=== PATIENT | male | born 1955 | race African-American/Black ===

== ENCOUNTER 2019-10-26 16:36 | Observation (INO) | payer MEDICARE, OTHER ==
[2019-10-26 17:32] LABS: Absolute Lymphocytes (CBC) 1.9 K/uL (0.7-4.9); Basophils % 0.3 % (0-1.3); Hematocrit 44.4 % (39.6-49.0); Lymphocytes % 11.2 % (15.3-44.8); MPV 8.6 fL (7.6-11.3); RBC Red Blood Cell Count 4.88 M/uL (4.33-5.43)
[2019-10-26 17:39] LABS: Protime INR 1.02
--- NOTE | 2019-10-26 17:46 | RAD REPORT ---
EXAM DESCRIPTION: Nikolai Single View10/26/2019 5:38 pm CLINICAL HISTORY: Chest pain COMPARISON: 2010 FINDINGS: The lungs appear clear of acute infiltrate. The heart is mildly enlarged. Postsurgical changes involve the chest. IMPRESSION: No acute abnormalities displayed
[2019-10-26 17:51] LABS: ALT/SGPT 18 U/L (12-78); AST/SGOT 8 U/L (15-37); Albumin 3.7 g/dL (3.4-5.0); Alkaline Phosphatase 98 U/L (45-117); Amylase 43 U/L (25-115); BUN Blood Urea Nitrogen 9 mg/dL (7-18); Bicarbonate 24 mmol/L (21-32); Bilirubin Direct 0.3 mg/dL (0-0.2); Bilirubin Total 1.3 mg/dL (0.2-1.0); CKMB Creatine Kinase MB < 1.0 ng/mL (0.3-3.6); Creatine Phosphokinase 74 U/L (39-308); Glucose Level 304 mg/dL (74-106); Lipase 192 U/L (73-393); Potassium 4.4 mmol/L (3.5-5.1); Protein, Total 8.9 g/dL (6.4-8.2); Sodium Level 133 mmol/L (136-145); Troponin (Emerg Dept Use Only) < 0.02 ng/mL (0.0-0.045)
[2019-10-26] MEDS ORDERED: NA CHLORIDE 0.9% 500 ML ONE (17:57)
[2019-10-26] MEDS ORDERED: NA CHLORIDE 0.9% 2,000 ML ONE (17:57)
[2019-10-26 18:30] LABS: Urine Blood 1+ (NEG); Urine Glucose 2+ (NEG); Urine Protein 3+ (NEG); Urine Specific Gravity >1.030 (1.005-1.030); Urine pH 5.5 (5.0-7.0)
[2019-10-26 18:33] LABS: Urine Bacteria >50 /HPF (NONE SEEN); Urine Culture Reflex Order NOT NEEDED; Urine RBC <5 /HPF (NONE SEEN); Urine Yeast PRESENT (NONE SEEN)
[2019-10-26] MEDS ORDERED: CEFTRIAXONE/SWI 1gm 1 GM/10 ML SYR ONE (18:53)
[2019-10-26] MEDS ORDERED: ACETAMINOPHEN 500 MG TAB ONE ×2 (18:53→20:19)
--- NOTE | 2019-10-26 20:08 | RAD REPORT ---
EXAM DESCRIPTION: CT - Head Brain Wo Cont - 10/26/2019 7:56 pm CLINICAL HISTORY: Alteration of awareness/confusion COMPARISON: None TECHNIQUE: Computed axial tomography of the head was obtained. IV contrast was not requested. All CT scans are performed using dose optimization technique as appropriate and may include automated exposure control or mA/KV adjustment according to patient size. FINDINGS: An intracranial bleed is not seen . The ventricles are normal in caliber. No extra-axial fluid collection is noted. Mild low-density areas within periventricular, deep and subcortical white matter likely represent isc hemic changes secondary to small vessel disease. Fluid within the sinuses/ mastoids is not seen. IMPRESSION: No acute intracranial abnormality is seen. If patient's symptoms persist MRI of the bra in would be recommended.
[2019-10-26] MEDS ORDERED: NA CHLORIDE 0.9% 1,000 ML ONE (20:19)
[2019-10-26] MEDS ORDERED: ACETAMINOPHEN 500 MG TAB PO PRN (21:49)
[2019-10-26] MEDS ORDERED: MORPHINE 2 MG/ML SYR IV PRN (21:49)
[2019-10-26] MEDS ORDERED: ONDANSETRON 4 MG/2 ML VIAL IV PRN (21:49)
[2019-10-26] MEDS ORDERED: HYDRALAZINE HCL 20 MG/ML VIAL IV PRN (21:52)
[2019-10-26] MEDS ORDERED: LORAZEPAM 0.5 MG TABLET PO PRN (21:52)
[2019-10-26] MEDS ORDERED: NA CHLORIDE 0.9% 1,000 ML IV SCH (22:00)
--- NOTE | 2019-10-26 22:00 | P.HP ---
Certification for Inpatient Patient admitted to: Observation With expected LOS: <2 Midnights Patient will require the following post-hospital care: None Practitioner: I am a practitioner with admitting privileges, knowledge of patient current condition, hospital course, and medical plan of care. Services: Services provided to patient in accordance with Admission requirements found in Title 42 Section 412.3 of the Code of Federal Regulations Patient History Date of Service: 10/26/19 Reason for admission: dysuria History of Present Illness: 64 yr old male with HTN , DM , hx of lung surgery -unsure reason , admitted for weakness, frequency urination since last 1 month , s/p seen by ASSISTANT PARALEGAL and no further workup done . He denies any hematuria or dysuria but admit to 2-3 x/pm nocturia . he state his glucose has been controlled but unable to to tell what medications he takes . No family or or personal hx of renal stones. in the ER , he ws noted with tachycardia with frequent PVCs and elevated wbc of 17 with high lactic acid and leucocyturia . He denies any chest pain . EKG was sinus rhthym . He is being admitted for UTI with sepsis Review of Systems 10-point ROS is otherwise unremarkable Physical Examination - Vital Signs Blood Pressure: 158/97 Pulse: 113 Respirations: 17 Pulse Ox (%): 100 - Physical Exam General: Alert, In no apparent distress, Oriented x3 HEENT: Atraumatic, Normocephalic, PERRLA Neck: Supple, 2+ carotid pulse no bruit Respiratory: Clear to auscultation bilaterally, Normal air movement Cardiovascular: No edema, Regular rate/rhythm, Normal S1 S2 Capillary refill: <2 Seconds Gastrointestinal: Normal bowel sounds, Soft and benign, Non-distended Musculoskeletal: No clubbing, No swelling Integumentary: No rashes, No breakdown Neurological: Normal speech, Normal strength at 5/5 x4 extr External genitalia: No edema, No lesions - Studies Laboratory Data (last 24 hrs) 10/26/19 17:20: PT 12.0, INR 1.02, APTT 29.5 10/26/19 17:20: WBC 17.2 H, Hgb 14.7, Hct 44.4, Plt Count 195 10/26/19 17:20: Sodium 133 L, Potassium 4.4, BUN 9, Creatinine 1.12, Glucose 304 H, Total Bilirubin 1.3 H, AST 8 L, ALT 18, Alkaline Phosphatase 98, Amylase 43, Lipase 192 Microbiology Data (last 24 hrs): 10/26/19 17:24 Throat Group A Streptococcus Rapid Screen - Final 10/26/19 17:24 Nasopharnyx Influenza Type A Antigen Screen - Final 10/26/19 17:24 Nasopharnyx Influenza Type B Antigen Screen - Final Assessment and Plan - Problems (Diagnosis) (1) HTN (hypertension) Current Visit: Yes Status: Acute (2) Diabetes Current Visit: Yes Status: Acute (3) Sepsis Current Visit: Yes Status: Acute (4) UTI (urinary tract infection) Current Visit: Yes Status: Acute (5) BPH w urinary obs/LUTS Current Visit: Yes Status: Acute Discharge Plan: Home Plan to discharge in: 24 Hours - Advance Directives Does patient have a Living Will: No Does patient have a Durable POA for Healthcare: No Physician Review: Patient Assessed, Agree with Above Assessment and Plan Physician Review Additional Text: # UTI with sepsis - follow blood cx and full urine cx - start rocephin qd -c/w IVF -obtain renal sonogram to r/o urinary tract abnormalities since atypical presentation - if improving wbc in am , can consider dc home # HTN - unable to obtain home meds list - start empirical Toprol since elevated HR now - c/w gentle IVF - resume home meds when list provided by spouse # DM - accuchekcs and insulin sliding scale prn - start lantus 15 unit qhs empirically # Presumed BPH - follow renal sono -start low dose flomax # Advance directive - full code # Dispo - possible home in am Time Spent Managing Pts Care (In Minutes): 60
[2019-10-26] MEDS ORDERED: D50W 25 GM/50 ML SYRINGE/VIAL IV PRN (22:04)
[2019-10-26] MEDS ORDERED: GLUCAGON 1 MG/VIAL IM PRN (22:04)
[2019-10-26] MEDS ORDERED: INSULIN GLARGINE 100 UNITS/ML SQ SCH (22:04)
[2019-10-26] MEDS ORDERED: TAMSULOSIN 0.4 MG SR CAP PO SCH (22:04)
[2019-10-26 23:17] VITALS: O2SAT 99
[2019-10-26] MEDS: METOPROLOL TAR 50 MG TAB PO SCH (23:40)
[2019-10-27 05:31] LABS: Absolute Lymphocytes (CBC) 2.4 K/uL (0.7-4.9); Basophils % 0.5 % (0-1.3); Hematocrit 38.2 % (39.6-49.0); Lymphocytes % 18.3 % (15.3-44.8); MPV 8.5 fL (7.6-11.3); RBC Red Blood Cell Count 4.12 M/uL (4.33-5.43)
[2019-10-27 05:51] LABS: ALT/SGPT 14 U/L (12-78); AST/SGOT 9 U/L (15-37); Alkaline Phosphatase 72 U/L (45-117); BUN Blood Urea Nitrogen 9 mg/dL (7-18); Bicarbonate 26 mmol/L (21-32); Bilirubin Total 1.3 mg/dL (0.2-1.0); Glucose Level 210 mg/dL (74-106); Protein, Total 7.3 g/dL (6.4-8.2); Sodium Level 139 mmol/L (136-145)
[2019-10-27] MEDS ORDERED: CEFTRIAXONE/SWI 1gm 1 GM/10 ML SYR IV SCH (07:00)
[2019-10-27] MEDS ORDERED: PANTOPRAZOLE 40MG TABLET PO SCH (07:30)
--- NOTE | 2019-10-27 08:26 | RAD REPORT ---
EXAM DESCRIPTION: US - Renal Ultrasound-Complete - 10/27/2019 7:46 am CLINICAL HISTORY: UTI , r/o hydronephrosis or renal calculi COMPARISON: No comparisons FINDINGS: The right kidney measures 10.3 x 5.0 x 5.2 cm. The left kidney measures 10.6 x 5.6 x 5.4 cm. Renal cortical thickness and echogenicity are normal. No hydronephrosis or suspicious renal mass. No bladder wall thickening or mass. No intraluminal stone or mass. Urinary bladder was contracted limiting assessment. IMPRESSION: No hydronephrosis or suspicious renal mass. No other significant findings.
[2019-10-27] MEDS: INSULIN -REGULAR HUMAN 50 UNIT/0.5 ML ML SQ SCH ×2 (08:53→12:20)
[2019-10-27] MEDS: METOPROLOL TAR 50 MG TAB PO SCH (08:54)
[2019-10-27] MEDS ORDERED: ENOXAPARIN 40 MG/0.4 ML SQ SCH (09:00)
--- NOTE | 2019-10-27 14:16 | P.CNS ---
Date of Consult: 10/27/19 Reason for Consult: proteinuria, UTI in a diabetic pt Requesting Physician: Arielle Friedman Chief Complaint: dysuria History of Present Illness: 64 y o Diabetic and hypertensive pt admitted for management of UTI. He lebron dc/o of frequent urination and night sweats prompting ER visit. He denied any headache but he did have fever. UA done in the ED was concerning as he had elevated leukocyte esterase and marked proteinuria. Nephrology was consulted to assist with treatment recommendations on account of his proteinuria. He denied any issue with previous diagnosis of kidney injury or NSAID use. Allergies No Known Allergies Allergy (Verified 10/26/19 23:03) Home medications list reviewed: Yes Home Medications: Atorvastatin Calcium [Lipitor] 40 mg PO BEDTIME 10/27/19 Glipizide [Glipizide Xl] 5 mg PO DAILY 10/27/19 Metformin HCl [Metformin HCl ER] 750 mg PO BID 10/27/19 Metoprolol Tartrate [Lopressor*] 50 mg PO BID 10/27/19 - Past Medical/Surgical History Diabetic: Yes -: htn -: dm -: cabg - Social History Alcohol use: Yes Place of Residence: Home Review of Systems 10-point ROS is otherwise unremarkable Physical Examination Temp Pulse Resp BP Pulse Ox 96.9 F 85 16 129/70 97 10/27/19 08:00 10/27/19 08:54 10/27/19 08:00 10/27/19 08:54 10/27/19 08:00 General: Alert, Oriented x3, Cooperative HEENT: Atraumatic, PERRLA, EOMI Neck: Supple Respiratory: Clear to auscultation bilaterally Cardiovascular: Regular rate/rhythm, Normal S1 S2 Gastrointestinal: Normal bowel sounds Musculoskeletal: No clubbing Neurological: Normal gait, Normal strength at 5/5 x4 extr Laboratory Data (last 24 hrs) 10/26/19 17:20: Magnesium 1.5 L 10/26/19 17:20: PT 12.0, INR 1.02, APTT 29.5 10/26/19 17:20: WBC 17.2 H, Hgb 14.7, Hct 44.4, Plt Count 195 10/26/19 17:20: Sodium 133 L, Potassium 4.4, BUN 9, Creatinine 1.12, Glucose 304 H, Total Bilirubin 1.3 H, AST 8 L, ALT 18, Alkaline Phosphatase 98, Amylase 43, Lipase 192 Conclusions/Impression: UTI: Treatment as per primary team. Empiric antibiotics have been started. Proteinuria: His kidney function is good with eGFR of >90%. He does have significant proteinuria on UA. We will obtain urine protein/creatinine to further evaluate. If he has significant proteinuria i.e. > 1g, we will start NYASIA inhibitor therapy and monitor his proteinuria as scheduled. Hypertension: We will continue present antihypertensive meds and monitor his BP per unit protocol. Diabetes: We will continue oral hypoglycemic agents and SSI with carb restricted diet.
[2019-10-27 14:21] VITALS: BP 137/75; TEMP 97.1
--- NOTE | 2019-10-27 17:27 | P.DS ---
Admission Date: 10/26/19 Discharge Date: 10/27/19 Disposition: ROUTINE DISCHARGE Discharge Condition: GOOD Reason for Admission: dysuria Consultations: Nephrology-Dr. Mccrary Procedures: Renal US: FINDINGS: The right kidney measures 10.3 x 5.0 x 5.2 cm. The left kidney measures 10.6 x 5.6 x 5.4 cm. Renal cortical thickness and echogenicity are normal. No hydronephrosis or suspicious renal mass. No bladder wall thickening or mass. No intraluminal stone or mass. Urinary bladder was contracted limiting assessment. IMPRESSION: No hydronephrosis or suspicious renal mass. No other significant findings. Medical Problem List: Sepsis secondary to UTI, urine culture positive for Gram-negative rods Positive strep test Hypertension Diabetes mellitus type 2 Brief History of Present Illness: 64-year-old male presented to emergency room with increased dysuria and polyuria. Patient found to have UTI/sepsis. Patient admitted for further treatment Hospital Course: Patient presented with dysuria and polyuria. Patient was found to have UTI. Patient also positive for strep. Sepsis was suspected. Patient treated with IV antibiotic therapy and IV fluids. Renal ultrasound showed no obstruction or hydronephrosis. Patient has done well during the course of his stay. Patient has been evaluated by nephrology. No further intervention required. At discharge urine culture positive for Gram negative rods. At discharge patient will continue with Augmentin 500 mg twice daily for 7 days. Recommend followup with urology in 1-2 weeks to follow up hospitalization. Patient will need a followup with PCP to go over urine culture results. UTI prevention to be provided. Patient may follow up with nephrology in 1-2 weeks to follow up hospitalization. Patient with hypertension. Patient may continue with metoprolol 50 mg 1 puff twice daily. Recommend to maintain blood pressure was 150/80. Further testing to be done by his PCP. Nephrology will follow up on his hypertension. Nephrology will consider NYASIA-inhibitor in the future. Patient with diabetes. Recommend at discharge to continue with his medications. Vital Signs/Physical Exam: Temp Pulse Resp BP Pulse Ox 97.1 F 73 16 137/75 97 10/27/19 12:00 10/27/19 12:00 10/27/19 12:00 10/27/19 12:00 10/27/19 12:00 General: Alert, In no apparent distress, Oriented x3, Cooperative HEENT: Atraumatic Neck: Supple Respiratory: Clear to auscultation bilaterally, Normal air movement Cardiovascular: Normal pulses, Regular rate/rhythm Gastrointestinal: Normal bowel sounds, Soft and benign, Non-distended, No tenderness, No masses, No rebound, No guarding Musculoskeletal: No erythema, No tenderness, No warmth Integumentary: No tenderness/swelling, No erythema, No warmth, No cyanosis Neurological: Normal speech, Normal strength at 5/5 x4 extr, Normal tone, Normal affect Laboratory Data at Discharge: WBC 13.2 K/uL (4.3-10.9) H D 10/27/19 05:12 Hgb 12.5 g/dL (13.6-17.9) L 10/27/19 05:12 Hct 38.2 % (39.6-49.0) L 10/27/19 05:12 Plt Count 160 K/uL (152-406) 10/27/19 05:12 PT 12.0 SECONDS (9.5-12.5) 10/26/19 17:20 INR 1.02 10/26/19 17:20 APTT 29.5 SECONDS (24.3-36.9) 10/26/19 17:20 Sodium 139 mmol/L (136-145) 10/27/19 05:12 Potassium 4.0 mmol/L (3.5-5.1) 10/27/19 05:12 BUN 9 mg/dL (7-18) 10/27/19 05:12 Creatinine 0.85 mg/dL (0.55-1.3) 10/27/19 05:12 Glucose 210 mg/dL (74-106) H 10/27/19 05:12 Magnesium Cancelled 10/27/19 22:00 Total Bilirubin 1.3 mg/dL (0.2-1.0) H 10/27/19 05:12 AST 9 U/L (15-37) L 10/27/19 05:12 ALT 14 U/L (12-78) 10/27/19 05:12 Alkaline Phosphatase 72 U/L (45-117) 10/27/19 05:12 Amylase 43 U/L (25-115) 10/26/19 17:20 Lipase 192 U/L (73-393) 10/26/19 17:20 Home Medications: Amoxicillin/Potassium Clav [Augmentin 500-125 Tablet] 1 each PO BID #14 tablet 10/27/19 Atorvastatin Calcium [Lipitor] 40 mg PO BEDTIME 10/27/19 Glipizide [Glipizide Xl] 5 mg PO DAILY 10/27/19 Metformin HCl [Metformin HCl ER] 750 mg PO BID 10/27/19 Metoprolol Tartrate [Lopressor*] 50 mg PO BID 10/27/19 New Medications: Amoxicillin/Potassium Clav [Augmentin 500-125 Tablet] 1 each PO BID #14 tablet Patient Discharge Instructions: 1. Follow up with PCP in 1 week. 2. Patient presented with a UTI and strep infection. Patient has done well. No renal obstruction identified. Patient has been evaluated by nephrology. At discharge urine culture positive for Gram negative rods. At discharge patient will continue with Augmentin 500 mg twice daily for 7 days. Recommend followup with urology in 1-2 weeks to follow up hospitalization. Patient will need a followup with PCP to go over urine culture results. UTI prevention to be provided. Patient may follow up with nephrology in 1-2 weeks to follow up hospitalization. 3. Patient with hypertension. Patient may continue with metoprolol 50 mg 1 puff twice daily. Recommend to maintain blood pressure was 150/80. Further testing to be done by his PCP. 4. Patient with diabetes. Recommend at discharge to continue with his medications. Diet: ADA Activity: Ad pura Time spent managing pt's care (in minutes): 55
--- NOTE | 2019-10-27 19:20 | ER ---
Nurse's Notes [facility] Name: Donald Hull Age: 64 yrs Sex: Male : 1955 Arrival Date: 10/26/2019 Time: 16:38 Bed 3 Private MD: Eyal Chris T Diagnosis: Other sepsis;Urinary tract infection, site not specified;Diabetes mellitus due to underlying condition with hyperglycemia Presentation: 10/25 16:53 Chief complaint: Patient states: Feeling tired x 2 days. Reports urinary frequency and ca1 urgency. Denies burning with urination. Denies abdl pain, N/V/Diarrhea. Coronavirus screen: Proceed with normal triage. Patient denies a cough. Patient denies shortness of breath or difficulty breathing. Patient reports a measured and/or subjective temperature greater than 100.4F. Patient denies travel on a cruise ship or to a country the [facility] currently lists as an affected area. Patient denies contact with known and/or suspected case of COVID-19. Ebola Screen: Patient negative for fever greater than or equal to 101.5 degrees Fahrenheit, and additional compatible Ebola Virus Disease symptoms Patient denies exposure to infectious person. Patient denies travel to an Ebola-affected area in the 21 days before illness onset. No symptoms or risks identified at this time. 16:53 Method Of Arrival: Wheelchair ca1 16:53 Initial Sepsis Screen: Does the patient meet any 2 criteria? Temp <36.0*C (96.8*F)) or ca1 > 38.3*C (100.9*F). HR > 90 bpm. Does the patient have a suspected source of infection? Yes: Dysuria/Frequency/Urgency/UTI. Risk Assessment: Do you want to hurt yourself or someone else? Patient reports no desire to harm self or others. 16:53 Acuity: NASIMA 2 ca1 16:53 Onset of symptoms was October 26, 2019. ca1 Historical: - Allergies: 16:57 No Known Allergies; ca1 - PMHx: 16:57 Hypertension; Diabetes - NIDDM; ca1 - PSHx: 16:57 CABG; ca1 - Immunization history:: Adult Immunizations up to date. - Social history:: Smoking status: Patient denies any tobacco usage or history of. Screenin:07 Abuse screen: Denies threats or abuse. Nutritional screening: No deficits noted. rb1 Tuberculosis screening: No symptoms or risk factors identified. Fall Risk No fall in past 12 months (0 pts). Secondary diagnosis (15 points) IV access (20 points). Ambulatory Aid- None/Bed Rest/Nurse Assist (0 pts). Gait- Normal/Bed Rest/Wheelchair (0 pts) Mental Status- Overestimates/Forgets Limitations (15 pts.). Total [place] Fall Scale indicates High Risk Score (45 or more points). Fall prevention measures have been instituted. Side Rails Up X 2 Placed Close to Nursing Station 1:1 Attendant Assigned Frequent Obs/Assessments Occuring As available patient and family educated on Fall Prevention Program and Strategies. Assessment: 17:00 Reassessment: Pt. is in the restroom trying to obtain a urine specimen. General:. rb1 17:07 General: Appears in no apparent distress. comfortable, Behavior is calm, cooperative, rb1 Denies fever. Pain: Denies pain. Neuro: Level of Consciousness is awake, obeys commands, confused, intermittent confusion. Oriented to person, place, time, situation. Cardiovascular: Capillary refill < 3 seconds. Respiratory: Airway is patent Respiratory effort is even, unlabored, Respiratory pattern is regular, symmetrical. GI: No signs and/or symptoms were reported involving the gastrointestinal system. : Reports urinary frequency. Derm: Skin is dry, Skin is normal, Skin temperature is warm. Musculoskeletal: Range of motion: intact in all extremities. 17:23 Reassessment: NOTIFIED VENITA WELLER OF PT INTERMITTENT INABILITY TO FOLLOW COMMANDS ls4 AND SOMETIMES DELAYED ANSWERS. NO ORDERS AT THIS TIME. 17:43 Reassessment: Told Robyn, provider, about the pt. having intermittent confusion and rb1 suggested a scan. No new orders received at this time. 18:00 Reassessment: Patient appears in no apparent distress at this time. Patient and/or rb1 family updated on plan of care and expected duration. Pain level reassessed. Patient is alert, oriented x 3, equal unlabored respirations, skin warm/dry/pink. Patient denies pain at this time. 18:12 Reassessment: Patient appears in no apparent distress at this time. Patient and/or rb1 family updated on plan of care and expected duration. Pain level reassessed. Patient is alert, oriented x 3, equal unlabored respirations, skin warm/dry/pink. Patient denies pain at this time. 19:32 Reassessment: PT FOUND LAYING LONGWAYS IN BED. PT ASKED WHY HE WAS LAYING THAT WAY. PT ls4 STATED BECAUSE HE FEELS LIKE IT. PT REPOSITIIONED IN BED. PT HAD ALSO URINATED ON FLOOR. PT HEART RATE 140'S REPORTED TO VENITA WELLER. PT HEART RATE IN 130S ON MONITOR AT VENITA ROBYN DESK. AWAIT FURTHER ORDERS. 19:35 General: Appears in no apparent distress. Behavior is calm, quiet, delayed in response rr5 when answering questions.. Neuro: Level of Consciousness is awake, obeys commands, confused. Cardiovascular: Capillary refill < 3 seconds Patient's skin is warm and dry. Respiratory: Airway is patent Respiratory effort is even, unlabored, Respiratory pattern is regular, symmetrical. GI: No signs and/or symptoms were reported involving the gastrointestinal system. : Reports urinary frequency. EENT: No signs and/or symptoms were reported regarding the EENT system. Derm: Skin is intact, Skin temperature is warm. Musculoskeletal: Capillary refill < 3 seconds. 19:47 Reassessment: patient in ct scan now. mg2 20:40 Reassessment: critical lab test for lactate of 4.2 relayed to the provider. mg2 21:10 Reassessment: Patient appears in no apparent distress at this time. Patient and/or mg2 family updated on plan of care and expected duration. Pain level reassessed. Patient is alert, oriented x 3, equal unlabored respirations, skin warm/dry/pink. called for updates. 22:37 Reassessment: Patient and/or family updated on plan of care and expected duration. Pain ea level reassessed. Report given to Thania SKELTON on second floor. 22:48 Reassessment: Patient and/or family updated on plan of care and expected duration. Pain ea level reassessed. Patient is alert, oriented x 3, equal unlabored respirations, skin warm/dry/pink. Pt admitted to second floor, pt left ED via stretcher per tech. Pt tolerating well. Vital Signs: 16:53 BP 165 / 110; Pulse 123; Resp 17 S; Temp 103.2(O); Pulse Ox 97% on R/A; Weight 87.09 kg ca1 (R); Height 5 ft. 6 in. (167.64 cm) (R); Pain 0/10; 17:30 BP 194 / 107; Pulse 119; Resp 28; Temp 98.4(O); Pulse Ox 98% on R/A; Pain 0/10; rb1 18:12 Temp 98.4(O); rb1 18:30 BP 176 / 102; Pulse 109; Resp 28; Pulse Ox 98% ; Pain 0/10; rb1 20:09 Pulse 119; Resp 22; Temp 100.4; Pulse Ox 99% on R/A; mg2 20:41 BP 177 / 70; mg2 20:57 BP 156 / 96; Pulse 106; Resp 18; Pulse Ox 96% on R/A; mg2 21:06 Temp 99.7(O); mg2 21:35 BP 116 / 97; Pulse 105; Resp 18; Pulse Ox 100% on R/A; mg2 22:38 BP 157 / 79; Pulse 97; Resp 20; Temp 99.9; ea 16:53 Body Mass Index 30.99 (87.09 kg, 167.64 cm) ca1 ED Course: 16:38 Patient arrived in ED. ag5 16:39 Eyal Chris MD is Private Physician. ag5 16:57 Arm band placed on right wrist. ca1 16:58 Venita Carlson PA is PHCP. cp 16:58 Tim Mathew MD is Attending Physician. cp 17:07 Patient has correct armband on for positive identification. Placed in gown. Bed in low rb1 position. Call light in reach. Side rails up X2. manager monitoring on. Pulse ox on. NIBP on. 17:20 Inserted saline lock: 18 gauge in right forearm, using aseptic technique. ,using rb1 aseptic technique. IV inserted by NAFISA Nicholson Blood collected. 17:38 Triage completed. ca1 17:39 XRAY Chest (1 view) In Process Unspecified. EDMS 17:41 Nidhi Jackson, NAFISA is Primary Nurse. rb1 18:54 Report given to NAFISA Donovan. rb1 19:56 CT Head Brain wo Cont In Process Unspecified. EDMS 20:24 Arielle Friedman MD is Hospitalizing Provider. cp 21:07 No provider procedures requiring assistance completed. Patient admitted, IV remains in mg2 place. Administered Medications: Discontinued: NS 0.9% 1000 ml IV at 100 ml/hr continuous 17:05 Drug: NS 0.9% (30 ml/kg) 2500 ml Route: IV; Rate: bolus; Site: right forearm; ls4 19:00 Follow up: Response: No adverse reaction; IV Status: Completed infusion; IV Intake: mg2 2500ml 18:51 Not Given (Provider discretion; temperature 98.4 orally): Tylenol 1000 mg PO once rb1 19:35 Drug: Rocephin 1 grams Route: IV; Rate: calculated rate; Site: right forearm; rr5 21:27 Follow up: Response: No adverse reaction; IV Status: Completed infusion mg2 20:10 Drug: NS 0.9% 1000 ml Route: IV; Rate: 100 ml/hr; Site: right forearm; mg2 22:49 Follow up: Response: No adverse reaction ea 20:15 Drug: Tylenol 1000 mg Route: PO; mg2 21:02 Follow up: Response: No adverse reaction mg2 Point of Care Testing: Blood Glucose: 20:10 Blood Glucose: 283 mg/dL; mg2 Ranges: Intake: 19:00 IV: 2500ml; Total: 2500ml. mg2 Outcome: 20:25 Decision to Hospitalize by Provider. cp 21:19 Instructed on the need for admit. ea 22:37 Admitted to Med/surg accompanied by tech, via wheelchair, room 208, with chart, Report ea called to Thania SKELTON 22:49 Condition: stable ea 22:49 Patient left the ED. ea Signatures: Dispatcher [employer] EDMS Venita Carlson PA PA cp Barber, Rebecca, RN RN rb1 Anne-Marie Osborne RN NAFISA ea Rohan Gr RN RN mg2 Lyn Carroll RN RN ls4 Zion Allen RN RN rr5 Irina Leonard RN RN ca1 Leyla Daniels ag5 Corrections: (The following items were deleted from the chart) 19:19 17:30 BP 194 / 107; Pulse 119bpm; Resp 28bpm; Pulse Ox 98% RA; Pain 0/10; rb1 rb1 19:37 19:31 Reassessment: NOTIFIED VENITA WELLER OF PT INTERMITTENT INABILITY TO FOLLOW ls4 COMMANDS AND SOMETIMES DELAYED ANSWERS. NO ORDERS AT THIS TIME. ls4
--- NOTE | 2019-10-27 19:20 | EDPHYS ---
Physician Documentation [facility] Name: Donald Hull Age: 64 yrs Sex: Male : 1955 Arrival Date: 10/26/2019 Time: 16:38 Bed 3 Private MD: Eyal Chris T ED Physician Tim Mathew HPI: 10/25 17:15 This 64 yrs old Black Male presents to ER via Wheelchair with complaints of General cp Weakness, Urinary Frequency. 17:15 The patient reports fever, with an emergency department temperature of 103.2 degrees cp Fahrenheit. Onset: The symptoms/episode began/occurred today. 17:15 Associated signs and symptoms: Pertinent positives: general weakness, urinary frequency.cp Historical: - Allergies: 16:57 No Known Allergies; ca1 - PMHx: 16:57 Hypertension; Diabetes - NIDDM; ca1 - PSHx: 16:57 CABG; ca1 - Immunization history:: Adult Immunizations up to date. - Social history:: Smoking status: Patient denies any tobacco usage or history of. ROS: 17:20 Constitutional: Positive for fever, Negative for poor PO intake. cp 17:20 Eyes: Negative for injury, pain, redness, and discharge. cp 17:20 ENT: Negative for ear pain, sore throat, difficulty swallowing, difficulty handling secretions. 17:20 Cardiovascular: Negative for chest pain, edema, palpitations. 17:20 Respiratory: Negative for cough, shortness of breath, wheezing. 17:20 Abdomen/GI: Negative for abdominal pain, nausea, vomiting, and diarrhea, constipation, black/tarry stool, rectal bleeding. 17:20 Back: Negative for pain at rest, pain with movement. 17:20 : Positive for urinary frequency, Negative for burning with urination, testicular pain 17:20 Skin: Negative for rash. 17:20 Neuro: Positive for weakness, Negative for dizziness, headache. 17:20 All other systems are negative. Exam: 17:25 Constitutional: The patient appears in no acute distress, alert, awake, cp non-diaphoretic, non-toxic, well developed, well nourished. 17:25 Head/Face: Normocephalic, atraumatic. cp 17:25 Eyes: Periorbital structures: appear normal, Conjunctiva: normal, no exudate, no injection, Sclera: no appreciated abnormality, Lids and lashes: appear normal, bilaterally. 17:25 ENT: External ear(s): are unremarkable, TM's: dullness, bilaterally, Nose: is normal, Mouth: Lips: moist, Oral mucosa: moist, Posterior pharynx: Airway: no evidence of obstruction, patent, Tonsils: no enlargement, no exudate, swelling, is not appreciated, erythema, that is mild, exudate, is not appreciated. 17:25 Neck: ROM/movement: is normal, is supple, without pain, no range of motions limitations, no meningismus, no nuchal rigidity. 17:25 Chest/axilla: Inspection: normal, Palpation: is normal, no crepitus, no tenderness. 17:25 Cardiovascular: Rate: tachycardic, Rhythm: regular, Edema: is not appreciated, JVD: is not appreciated. 17:25 Respiratory: the patient does not display signs of respiratory distress, Respirations: normal, no use of accessory muscles, no retractions, labored breathing, is not present, Breath sounds: are clear throughout, no decreased breath sounds, no stridor, no wheezing. 17:25 Abdomen/GI: Inspection: abdomen appears normal, Bowel sounds: active, all quadrants, Palpation: abdomen is soft and non-tender, in all quadrants, voluntary guarding, is not appreciated, involuntary guarding, is not appreciated. 17:25 Back: pain, is absent, ROM is normal. 17:25 Skin: cellulitis, is not appreciated, no rash present. 17:25 Neuro: Orientation: to person, place \T\ time. Mentation: able to follow commands, slow to respond, Cerebellar function: is grossly normal, Motor: moves all fours, strength is normal, Gait: is steady. 18:00 ECG was reviewed by the Attending Physician. cp 20:25 ECG was reviewed by the Attending Physician. cp Vital Signs: 16:53 BP 165 / 110; Pulse 123; Resp 17 S; Temp 103.2(O); Pulse Ox 97% on R/A; Weight 87.09 kg ca1 (R); Height 5 ft. 6 in. (167.64 cm) (R); Pain 0/10; 17:30 BP 194 / 107; Pulse 119; Resp 28; Temp 98.4(O); Pulse Ox 98% on R/A; Pain 0/10; rb1 18:12 Temp 98.4(O); rb1 18:30 BP 176 / 102; Pulse 109; Resp 28; Pulse Ox 98% ; Pain 0/10; rb1 20:09 Pulse 119; Resp 22; Temp 100.4; Pulse Ox 99% on R/A; mg2 20:41 BP 177 / 70; mg2 20:57 BP 156 / 96; Pulse 106; Resp 18; Pulse Ox 96% on R/A; mg2 21:06 Temp 99.7(O); mg2 21:35 BP 116 / 97; Pulse 105; Resp 18; Pulse Ox 100% on R/A; mg2 22:38 BP 157 / 79; Pulse 97; Resp 20; Temp 99.9; ea 16:53 Body Mass Index 30.99 (87.09 kg, 167.64 cm) ca1 MDM: 17:15 Patient medically screened. cp 17:30 Differential diagnosis: pneumonia UTI, meningitis, sepsis. cp 18:35 Data reviewed: vital signs, nurses notes, lab test result(s), EKG, radiologic studies, cp plain films, and as a result, I will admit patient. 18:35 Test interpretation: by ED physician or midlevel provider: ECG. Response to treatment: cp the patient's symptoms have mildly improved after treatment. 18:40 Physician consultation: Arielle Friedman MD was called at 18:30, was contacted at 18:30, regarding admission, to the telemetry unit. patient's condition. 10/25 16:59 Order name: Amylase, Serum; Complete Time: 18:16 ca1 10/25 16:59 Order name: Basic Metabolic Panel; Complete Time: 18:16 ca1 10/25 18:16 Interpretation: Normal except: NA 133; GLUC 304; GFR 80. cp 10/25 16:59 Order name: Blood Culture Adult (2) ca1 10/25 16:59 Order name: CBC with Diff; Complete Time: 18:16 ca1 10/25 18:16 Interpretation: Normal except: WBC 17.2; SUSAN% 77.5; LYM% 11.2; NEUT A 13.3; MNA 1.9. cp 10/25 16:59 Order name: Ckmb; Complete Time: 18:16 ca1 10/25 16:59 Order name: CPK; Complete Time: 18:16 ca1 10/25 16:59 Order name: Lactate; Complete Time: 18:16 [facility] 10/25 18:17 Interpretation: Abnormal: LAC 2.6. 10/25 16:59 Order name: LFT's; Complete Time: 18:16 [facility] 10/25 18:17 Interpretation: Normal except: AST 8; BILIT 1.3; BILID 0.3; TP 8.9; GLOB 5.2; A/G 0.7. 10/25 16:59 Order name: Lipase; Complete Time: 18:16 [facility] 10/25 16:59 Order name: Procalcitonin; Complete Time: 18:16 [facility] 10/25 18:17 Interpretation: Reviewed. 10/25 16:59 Order name: Protime (+inr); Complete Time: 18:16 [facility] 10/25 16:59 Order name: Ptt, Activated; Complete Time: 18:16 [facility] 10/25 16:59 Order name: Troponin (emerg Dept Use Only); Complete Time: 18:16 [facility] 10/25 18:17 Interpretation: Reviewed. 10/25 16:59 Order name: Urine Microscopic Only; Complete Time: 18:36 [facility] 10/25 18:36 Interpretation: Normal except: UWBC 10-20; UBACT >50; YEAST PRESENT; BUD PRESENT. 10/25 17:15 Order name: Influenza Screen (a \T\ B); Complete Time: 18:32 10/25 17:15 Order name: Strep; Complete Time: 18:32 10/25 18:33 Interpretation: Abnormal: GP A STREP SC \T\nbsp; GROUP A STREP SCREEN-- \T\nbsp; \T\nbsp; cp POSITIVE. 10/25 17:15 Order name: Urine Culture 10/25 17:15 Order name: XRAY Chest (1 view); Complete Time: 18:16 10/25 18:17 Interpretation: Report review. 10/25 18:27 Order name: Urine Dipstick--Ancillary (enter results); Complete Time: 18:32 10/25 18:33 Interpretation: Normal except: USPGR >1.030; UKET 1+; UBLD 1+; UPROT 3+. 10/25 19:34 Order name: CT Head Brain wo Cont; Complete Time: 20:11 10/25 20:21 Order name: Glucose, Ancillary Testing; Complete Time: 20:23 [facility] 10/25 20:23 Interpretation: GLUC,ANCIL 283; Reviewed. 10/25 20:40 Order name: Lactate Sepsis 2 HR Follow-up; Complete Time: 21:09 [facility] 10/25 21:09 Interpretation: Abnormal: LACTATE SEPSIS 4.2. 10/25 21:58 Order name: CBC with Automated Diff [facility] 10/25 21:58 Order name: CBC with Automated Diff [facility] 10/25 21:58 Order name: Comprehensive Metabolic Panel [facility] 10/25 21:58 Order name: Comprehensive Metabolic Panel [facility] 10/25 21:58 Order name: Magnesium [facility] 10/25 21:58 Order name: Magnesium; Complete Time: 22:14 [facility] 10/25 21:58 Order name: Magnesium [facility] 10/25 21:58 Order name: Magnesium [facility] 10/25 16:59 Order name: Accucheck; Complete Time: 20:00 [facility] 10/25 16:59 Order name: Cardiac monitoring; Complete Time: 18:08 [facility] 10/25 16:59 Order name: EKG - Nurse/Tech; Complete Time: 17:49 [facility] 10/25 16:59 Order name: IV Saline Lock - Large Bore; Complete Time: 18:51 [facility] 10/25 16:59 Order name: Labs collected and sent; Complete Time: 18:51 [facility] 10/25 16:59 Order name: O2 Per Protocol; Complete Time: 18:52 [facility] 10/25 16:59 Order name: O2 Sat Monitoring; Complete Time: 19:44 [facility] 10/25 16:59 Order name: Urine Dipstick-Ancillary (obtain specimen); Complete Time: 19:44 [facility] 10/25 20:07 Order name: EKG; Complete Time: 20:09 10/25 20:07 Order name: EKG - Nurse/Tech; Complete Time: 20:40 10/25 20:07 Order name: Accucheck Blood Glucose; Complete Time: 20:09 10/25 21:57 Order name: CONS Pharmacy Consult [facility] 10/25 21:57 Order name: CONS Physician Consult [facility] 10/25 21:57 Order name: Consistent Carb (ADA) 1800 Da [facility] 10/25 21:59 Order name: Renal Ultrasound-Complete EDMS EC:00 Rate is 116 beats/min. Rhythm is regular. NJ interval is normal. QRS interval is cp normal. QT interval is normal. Interpreted by me. Reviewed by me. 20:25 Rate is 118 beats/min. Rhythm is regular. NJ interval is normal. QRS interval is cp normal. QT interval is normal. Interpreted by me. Reviewed by me. Administered Medications: Discontinued: NS 0.9% 1000 ml IV at 100 ml/hr continuous 17:05 Drug: NS 0.9% (30 ml/kg) 2500 ml Route: IV; Rate: bolus; Site: right forearm; ls4 19:00 Follow up: Response: No adverse reaction; IV Status: Completed infusion; IV Intake: mg2 2500ml 18:51 Not Given (Provider discretion; temperature 98.4 orally): Tylenol 1000 mg PO once rb1 19:35 Drug: Rocephin 1 grams Route: IV; Rate: calculated rate; Site: right forearm; rr5 21:27 Follow up: Response: No adverse reaction; IV Status: Completed infusion mg2 20:10 Drug: NS 0.9% 1000 ml Route: IV; Rate: 100 ml/hr; Site: right forearm; mg2 22:49 Follow up: Response: No adverse reaction ea 20:15 Drug: Tylenol 1000 mg Route: PO; mg2 21:02 Follow up: Response: No adverse reaction mg2 Point of Care Testing: Blood Glucose: 20:10 Blood Glucose: 283 mg/dL; mg2 Ranges: Critical Glucose Levels:Adult <50 mg/dl or >400 mg/dl <40 mg/dl or >180 mg/dl Disposition: 10/26 15:15 Co-signature as Attending Physician, Tim Mathew MD I agree with the assessment and kdr plan of care. Disposition: 10/26/19 20:25 Hospitalization ordered by Arielle Friedman for Inpatient Admission. Preliminary diagnosis are Other sepsis, Urinary tract infection, site not specified, Diabetes mellitus due to underlying condition with hyperglycemia. - Bed requested for Telemetry/MedSurg (Inpatient). - Status is Inpatient Admission. ea - Condition is Fair. - Problem is new. - Symptoms have improved. Signatures: Dispatcher [employer] EDMS Tim Mathew MD MD kdr Nilesh Carlson PA PA cp Garcia, Cindy, RN RN Anne-Marie Osborne RN RN ea Gardose, Michele, RN RN [facility] [place] Lyn Carroll RN RN ls4 Zion Allen, RN RN rr5 Irina Leonard RN RN ca1 Nidhi Jackson RN rb1 Corrections: (The following items were deleted from the chart) 10/25 18:16 18:16 Normal except: WBC 17.2; SUSAN% 77.5; LYM% 11.2; NEUT A 13.3. cp cp 20:25 20:25 Hospitalization Ordered by Arielle Friedman MD for Inpatient Admission. Preliminary cp diagnosis is Other sepsis; Urinary tract infection, site not specified. Bed requested for Telemetry/MedSurg (Inpatient). Status is Inpatient Admission. Condition is Fair. Problem is new. Symptoms have improved. cp 22:03 20:25 10/26/2019 20:25 Hospitalization Ordered by Arielle Friedman MD for Inpatient cg Admission. Preliminary diagnosis is Other sepsis; Urinary tract infection, site not specified; Diabetes mellitus due to underlying condition with hyperglycemia. Bed requested for Telemetry/MedSurg (Inpatient). Status is Inpatient Admission. Condition is Fair. Problem is new. Symptoms have improved. cp 22:49 22:03 10/26/2019 20:25 Hospitalization Ordered by Arielle Friedman MD for Inpatient ea Admission. Preliminary diagnosis is Other sepsis; Urinary tract infection, site not specified; Diabetes mellitus due to underlying condition with hyperglycemia. Bed requested for Telemetry/MedSurg (Inpatient). Status is Inpatient Admission. Condition is Fair. Problem is new. Symptoms have improved. cg
--- NOTE | 2019-10-29 16:32 | EKG ---
Test Date: 2019-10-26 Test Time: 20:20:38 Shank Faker: FRANCK MEASUREMENT RESULTS: Intervals: Rate: 118 HI: 168 QRSD: 84 QT: 320 QTc: 448 Mullins: P: 71 HI: 168 QRS: 16 T: 63 INTERPRETIVE STATEMENTS: Sinus tachycardia with frequent and consecutive premature ventricular complexes and fusion complexes Abnormal ECG Compared to ECG 10/26/2019 17:53:12 Fusion complex(es) now present Electronically Signed On 10-29-19 16:27:48 CDT by Francois Moore
== END 2019-10-27 15:59 | disposition home or self-care (01) ==
LOC: ER 16:36 → 2ND 22:36 → OBSVTOIN 10-27 10:39 → INTOOBSV 10-27 10:39
PROVIDERS: ADMIT Internal Medicine; ATTEND Internal Medicine
DX: A41.9 Sepsis, unspecified organism (principal); N39.0 Urinary tract infection, site not specified; J02.0 Streptococcal pharyngitis; I10 Essential (primary) hypertension; E11.9 Type 2 diabetes mellitus without complications; N40.1 Benign prostatic hyperplasia with lower urinary tract symptoms; N13.8 Other obstructive and reflux uropathy; Z95.1 Presence of aortocoronary bypass graft
CPT/HCPCS: 96365; 96367; 93005 ×2; 87040 ×2; 87088; 85025 ×2; 87086; 80048; 36415; 82150; 83735; 82550; 85610; 82947 ×4; 80076; 87081; 83605 ×2; 85730; 87077; 87186; 84484; 82553; 83690; 80053; 84145; 87804 ×2; 70450; 71045; 76770; 99285; 96366; J1650; J0696 ×2; J7040; J7030 ×3; G0378 ×2; 81003; 81015; J1815

== ENCOUNTER 2020-06-08 00:37 | Inpatient (IN) | payer MEDICARE ==
[2020-06-08 01:57] LABS: Protime INR 1.06
[2020-06-08 01:58] LABS: Basophils % 0.4 % (0-1.3); Lymphocytes % 11.5 % (15.3-44.8); MPV 9.7 fL (7.6-11.3)
[2020-06-08] MEDS ORDERED: NA CHLORIDE 0.9% 2,000 ML ONE (03:01)
[2020-06-08 03:06] LABS: SARS-COV-2 RT PCR POSITIVE (NEGATIVE)
[2020-06-08 03:11] LABS: Urine Blood 1+ (NEG); Urine Glucose 2+ (NEG); Urine Protein 3+ (NEG); Urine pH 5.5 (5.0-7.0)
[2020-06-08 05:41] LABS: Albumin 3.5 g/dL (3.4-5.0); Bilirubin Direct 0.4 mg/dL (0-0.2); Magnesium 1.4 mg/dL (1.8-2.4); Potassium 4.2 mmol/L (3.5-5.1); Protein, Total 8.7 g/dL (6.4-8.2); Troponin (Emerg Dept Use Only) 0.2 ng/mL (0.0-0.045)
[2020-06-08] MEDS ORDERED: Magnesium Sulfate 2gm IVPB 2 G/50 ML BAG IV ONE ×2 (06:05→07:52)
[2020-06-08] MEDS ORDERED: NA CHLORIDE 0.9% 1,000 ML ONE ×2 (06:05→10:20)
--- NOTE | 2020-06-08 06:49 | ER ---
Nurse's Notes [facility] Name: Donald Hull Age: 65 yrs Sex: Male : 1955 Arrival Date: 06/08/2020 Time: 00:41 Bed 2 Private MD: Diagnosis: Positive Covid 19. Pneumonia Sepsis Elevated Troponin Presentation: 06/08 00:57 Chief complaint: Spouse and/or significant other states: seems to be going to the [facility] restroom more frequently today, has been moving a little slower than usual but the patient is more weak this evening. Pt can hardly get out of bed to go to the restroom. Coronavirus screen: Client denies travel out of the [place] in the last 14 days. vomiting. Client presents with at least one sign or symptom that may indicate coronavirus-19. Standard/surgical mask placed on the client. Ebola Screen: Patient negative for fever greater than or equal to 101.5 degrees Fahrenheit, and additional compatible Ebola Virus Disease symptoms Patient denies exposure to infectious person. Patient denies travel to an Ebola-affected area in the 21 days before illness onset. No symptoms or risks identified at this time. Initial Sepsis Screen: Does the patient meet any 2 criteria? RR > 20 per min. HR > 90 bpm. Yes Does the patient have a suspected source of infection? Yes: Dysuria/Frequency/Urgency/UTI. Risk Assessment: Do you want to hurt yourself or someone else? Patient reports no desire to harm self or others. Onset of symptoms was June 08, 2020. 00:57 Method Of Arrival: Ambulatory dm5 00:57 Acuity: NASIMA 2 dm5 Historical: - Allergies: 01:01 No Known Allergies; dm5 - PMHx: 01:01 Diabetes - NIDDM; Hypertension; dm5 - PSHx: 01:01 heart bypass surgery; dm5 Screenin:10 Abuse screen: Denies threats or abuse. Nutritional screening: No deficits noted. em Tuberculosis screening: No symptoms or risk factors identified. Fall Risk IV access (20 points). Assessment: 00:50 General: Appears in no apparent distress. ill, well groomed, well developed, well sg nourished, Behavior is cooperative. Neuro: Level of Consciousness is awake, obeys commands, confused, Oriented to person, place, Speech is normal, Facial symmetry appears normal. Cardiovascular: Patient's skin is warm and dry. Chest pain is denied. Respiratory: Airway is patent Respiratory effort is even, unlabored, Respiratory pattern is regular. GI: Abdomen is round non-distended, Reports normal bowel habits, tolerance of fluids, tolerance of food. : No signs and/or symptoms were reported regarding the genitourinary system. EENT: No signs and/or symptoms were reported regarding the EENT system. Derm: Skin is pink, warm \T\ dry. Musculoskeletal: Circulation, motion, and sensation intact. Range of motion: intact in all extremities. 02:37 Reassessment: lactate 4.5 rajinder from laboratory called. ED provider aware. rr5 06:04 Reassessment: Patient appears in no apparent distress at this time. pt family at sg bedside at this time, pt family assisting with pt care, pt attempts to remove monitors and IV. Angy SKELTON [facility] notified, pt has been a big help with pt care, lives with pt who is COVID positive, Angy SKELTON states pt OK to go to covid unit to help pt when a bed assignment is made. Vital Signs: 00:57 BP 160 / 103; Pulse 131; Resp 36; Temp 100; Pulse Ox 95% on R/A; Weight 86.18 kg; dm5 Height 5 ft. 6 in. (167.64 cm); Pain 0/10; 04:25 BP 156 / 77; Pulse 108; Resp 20 S; Pulse Ox 98% on R/A; sg 05:22 BP 148 / 70; Pulse 138; Resp 16; Pulse Ox 99% on R/A; sg 07:33 BP 182 / 99; Pulse 137; Resp 30; Temp 101.3(O); Pulse Ox 100% on R/A; iw 08:53 BP 127 / 71; Pulse 130; Resp 30; Pulse Ox 100% on R/A; iw 19:13 BP 140 / 89; Pulse 90; Resp 26; Pulse Ox 98% ; ea 00:57 Body Mass Index 30.67 (86.18 kg, 167.64 cm) dm5 ED Course: 00:41 Patient arrived in ED. cf2 01:00 Triage completed. dm5 01:24 Luis Manuel Cho, NAFISA is Primary Nurse. sg 01:25 Thomas Woodard MD is Attending Physician. pkl 01:58 XRAY Chest (1 view) In Process Unspecified. EDMS 02:00 Inserted saline lock: 20 gauge in right forearm, using aseptic technique. Blood oe collected. 03:15 CT Head Brain wo Cont In Process Unspecified. EDMS 03:15 CT Chest Wo Con In Process Unspecified. EDMS 05:44 Inserted saline lock: 20 gauge in left forearm, using aseptic technique. oe 06:47 Poncho Mcghee MD is Hospitalizing Provider. pkl 17:31 Primary Nurse role handed off by Luis Manuel Cho, RN jp3 19:10 Patient has correct armband on for positive identification. Bed in low position. Call em light in reach. Side rails up X2. 19:11 No provider procedures requiring assistance completed. Patient admitted, IV remains in em place. 19:11 Arm band placed on right wrist. em Administered Medications: 02:15 Drug: NS 0.9% 1000 ml Route: IV; Rate: 1000 ml; Site: right wrist; sg 04:16 Drug: NS 0.9% 1000 ml Route: IV; Rate: 125 ml/hr; Site: right wrist; sg 06:03 Drug: Magnesium Sulfate 2 grams Route: IVPB; Infused Over: 2 hrs; Site: left wrist; sg 06:03 Drug: NS 0.9% 1000 ml Route: IV; Rate: 1000 ml; Site: left wrist; sg 09:08 Not Given (charted in [employer]): Zithromax 500 mg IVPB once over 1 hrs; mix in 250 mL NSiw Outcome: 06:48 Decision to Hospitalize by Provider. pkl 19:11 Admitted to Med/surg accompanied by tech, via stretcher, room 407. em 19:11 Condition: stable 19:11 Instructed on the need for admit, Demonstrated understanding of instructions. 19:34 Patient left the ED. mg2 Signatures: Dispatcher [employer] Araseli Rios RN RN dm5 Luis Manuel Cho, RN Thomas Salinas MD MD pkSukhi Marie RN RN em Williams, Irene, RN RN iw Espinosa, Orlando oe Antunez, Elena, RN RN ea Gardose, Michele, RN RN mg2 Leonides Gross jp3 Zion Allen RN RN rr5 Sarah Hinds2
--- NOTE | 2020-06-08 06:49 | EDPHYS ---
Physician Documentation [facility] Name: Donald Hull Age: 65 yrs Sex: Male : 1955 Arrival Date: 06/08/2020 Time: 00:41 Bed 2 Private MD: ED Physician Thomas Woodard HPI: 06/08 01:39 This 65 yrs old Black Male presents to ER via Ambulatory with complaints of Vomiting, pkl Urinary Frequency, Weakness. 01:39 The patient presents with confusion, decreased mental status. Onset: The pkl symptoms/episode began/occurred today. Associated signs and symptoms: Pertinent positives: increase urinary frequency. said patient could hardly get out of bed to go to the bathroom. Historical: - Allergies: 01:01 No Known Allergies; dm5 - PMHx: 01:01 Diabetes - NIDDM; Hypertension; dm5 - PSHx: 01:01 heart bypass surgery; dm5 ROS: 01:39 Eyes: Negative for injury, pain, redness, and discharge, ENT: Negative for injury, pkl pain, and discharge, Neck: Negative for injury, pain, and swelling, Cardiovascular: Negative for chest pain, palpitations, and edema, Respiratory: Negative for shortness of breath, cough, wheezing, and pleuritic chest pain, Abdomen/GI: Negative for abdominal pain, nausea, vomiting, diarrhea, and constipation, Back: Negative for injury and pain. 01:39 : Positive for urinary frequency. 01:39 MS/extremity: Negative for acute changes. 01:39 Skin: Negative for rash. 01:39 Neuro: Positive for altered mental status, confused. Exam: 01:39 Head/Face: Normocephalic, atraumatic. Eyes: Pupils equal round and reactive to light, pkl extra-ocular motions intact. Lids and lashes normal. Conjunctiva and sclera are non-icteric and not injected. Cornea within normal limits. Periorbital areas with no swelling, redness, or edema. ENT: Nares patent. No nasal discharge, no septal abnormalities noted. Tympanic membranes are normal and external auditory canals are clear. Oropharynx with no redness, swelling, or masses, exudates, or evidence of obstruction, uvula midline. Mucous membranes moist. Neck: Trachea midline, no thyromegaly or masses palpated, and no cervical lymphadenopathy. Supple, full range of motion without nuchal rigidity, or vertebral point tenderness. No Meningismus. Chest/axilla: Normal chest wall appearance and motion. Nontender with no deformity. No lesions are appreciated. Cardiovascular: Regular rate and rhythm with a normal S1 and S2. No gallops, murmurs, or rubs. Normal PMI, no JVD. No pulse deficits. Respiratory: Lungs have equal breath sounds bilaterally, clear to auscultation and percussion. No rales, rhonchi or wheezes noted. No increased work of breathing, no retractions or nasal flaring. Abdomen/GI: Soft, non-tender, with normal bowel sounds. No distension or tympany. No guarding or rebound. No evidence of tenderness throughout. Back: No spinal tenderness. No costovertebral tenderness. Full range of motion. Skin: Warm, dry with normal turgor. Normal color with no rashes, no lesions, and no evidence of cellulitis. MS/ Extremity: Pulses equal, no cyanosis. Neurovascular intact. Full, normal range of motion. 01:39 Neuro: Orientation: appropriate for stated age, Mentation: slow to respond, confused, Cranial nerves: grossly normal, Motor: moves all fours. Vital Signs: 00:57 BP 160 / 103; Pulse 131; Resp 36; Temp 100; Pulse Ox 95% on R/A; Weight 86.18 kg; dm5 Height 5 ft. 6 in. (167.64 cm); Pain 0/10; 04:25 BP 156 / 77; Pulse 108; Resp 20 S; Pulse Ox 98% on R/A; sg 05:22 BP 148 / 70; Pulse 138; Resp 16; Pulse Ox 99% on R/A; sg 07:33 BP 182 / 99; Pulse 137; Resp 30; Temp 101.3(O); Pulse Ox 100% on R/A; iw 08:53 BP 127 / 71; Pulse 130; Resp 30; Pulse Ox 100% on R/A; iw 19:13 BP 140 / 89; Pulse 90; Resp 26; Pulse Ox 98% ; ea 00:57 Body Mass Index 30.67 (86.18 kg, 167.64 cm) dm5 MDM: 01:25 Patient medically screened. pkl 06:46 Data reviewed: vital signs, nurses notes, lab test result(s), EKG, radiologic studies, pkl CT scan, plain films. ED course: Talked to Dr. Mcghee, admit. 06/08 01:34 Order name: Basic Metabolic Panel pkl 06/08 01:34 Order name: CBC with Diff; Complete Time: 04:55 pkl 06/08 01:34 Order name: LFT's pkl 06/08 01:34 Order name: Magnesium; Complete Time: 06:57 pkl 06/08 01:34 Order name: NT PRO-BNP; Complete Time: 06:57 pkl 06/08 01:34 Order name: PT-INR; Complete Time: 04:55 pkl 06/08 01:34 Order name: Troponin (emerg Dept Use Only); Complete Time: 06:57 pkl 06/08 01:35 Order name: Basic Metabolic Panel; Complete Time: 06:57 EDMS 06/08 01:35 Order name: Liver (Hepatic) Function; Complete Time: 06:57 EDMS 06/08 01:37 Order name: Blood Culture Adult (2) pkl 06/08 01:37 Order name: Lactate; Complete Time: 04:55 pkl 06/08 02:38 Order name: Urine Dipstick--Ancillary (enter results); Complete Time: 04:55 mw2 06/08 03:06 Order name: COVID-19/FLU A+B; Complete Time: 04:55 EDMS 06/08 05:41 Order name: Lactate Sepsis 2 HR Follow-up; Complete Time: 06:57 EDMS 06/08 06:18 Order name: Urine Microscopic Only; Complete Time: 20:06 sg 06/08 07:53 Order name: CBC with Automated Diff EDMS 06/08 07:53 Order name: CBC with Automated Diff EDMS 06/08 07:53 Order name: Comprehensive Metabolic Panel EDMS 06/08 07:53 Order name: Comprehensive Metabolic Panel EDMS 06/08 07:55 Order name: C-Reactive Protein EDMS 06/08 07:55 Order name: CBC with Automated Diff EDMS 06/08 07:55 Order name: Comprehensive Metabolic Panel EDMS 06/08 07:55 Order name: D-Dimer EDMS 06/08 07:55 Order name: Ferritin EDMS 06/08 07:55 Order name: Lactate EDMS 06/08 07:55 Order name: Lactic Dehydrogenase EDMS 06/08 07:55 Order name: Magnesium EDMS 06/08 07:55 Order name: NT PRO-BNP [facility] 06/08 01:25 Order name: EKG; Complete Time: 01:25 06/08 01:34 Order name: XRAY Chest (1 view); Complete Time: 20:06 [facility] 06/08 01:34 Order name: Cardiac monitoring; Complete Time: 01:49 pk 06/08 01:34 Order name: EKG - Nurse/Tech; Complete Time: :48 pk 06/08 01:34 Order name: IV Saline Lock; Complete Time: :49 pk 06/08 01:34 Order name: Labs collected and sent; Complete Time: :49 pk 06/08 01:34 Order name: O2 Per Protocol; Complete Time: :48 pk 06/08 01:34 Order name: O2 Sat Monitoring; Complete Time: :48 [facility] 06/08 01:36 Order name: CT Head Brain wo Cont; Complete Time: 20:06 [facility] 06/08 01:38 Order name: CT Chest Wo Con; Complete Time: 20:06 [facility] 06/08 07:53 Order name: CONS Pharmacy Consult [facility] 06/08 07:53 Order name: Heart Healthy EDMO 06/08 07:55 Order name: Procalcitonin [facility] 06/08 07:55 Order name: Magnesium; Complete Time: 20:06 [facility] 06/08 07:55 Order name: Troponin I; Complete Time: 20:06 [facility] 06/08 07:55 Order name: Lipid Profile EDMO Administered Medications: 02:15 Drug: NS 0.9% 1000 ml Route: IV; Rate: 1000 ml; Site: right wrist; sg 04:16 Drug: NS 0.9% 1000 ml Route: IV; Rate: 125 ml/hr; Site: right wrist; sg 06:03 Drug: Magnesium Sulfate 2 grams Route: IVPB; Infused Over: 2 hrs; Site: left wrist; sg 06:03 Drug: NS 0.9% 1000 ml Route: IV; Rate: 1000 ml; Site: left wrist; sg 09:08 Not Given (charted in [employer]): Zithromax 500 mg IVPB once over 1 hrs; mix in 250 mL NSiw Disposition: 06/08/20 06:48 Hospitalization ordered by Poncho Mcghee for Inpatient Admission. Preliminary diagnosis is Positive Covid 19. Pneumonia Sepsis Elevated Troponin. - Bed requested for Telemetry/MedSurg (Inpatient). - Status is Inpatient Admission. mg2 - Condition is Stable. - Problem is new. - Symptoms are unchanged. Signatures: Dispatcher [employer] EDMS Irlanda Neely JatinhelgaAraseli tompkins, RN RN dm5 Luis Manuel Cho, RN NAFISA Thomas Woodard MD MD pkl Levy Schaffer RN RN ja1 Rohan Gr RN RN mg2 Odilia Horowitz RN Corrections: (The following items were deleted from the chart) 01:50 01:36 CORONAVIRUS+MR.LAB.BRZ ordered. EDMS EDMS 01:50 01:36 Influenza Screen (A \T\ B)+BA.LAB.BRZ ordered. EDMO EDMS 06:58 06:48 Hospitalization Ordered by Poncho Mcghee MD for Inpatient Admission. Preliminary pkl diagnosis is Positive Covid 19. Pneumonia Sepsis . Bed requested for Telemetry/MedSurg (Inpatient). Status is Inpatient Admission. Condition is Stable. Problem is new. Symptoms are unchanged. pkl 08:10 06:58 06/08/2020 06:48 Hospitalization Ordered by Poncho Mcghee MD for Inpatient bd Admission. Preliminary diagnosis is Positive Covid 19. Pneumonia Sepsis Elevated Troponin. Bed requested for Telemetry/MedSurg (Inpatient). Status is Inpatient Admission. Condition is Stable. Problem is new. Symptoms are unchanged. pkl 18:40 08:10 06/08/2020 06:48 Hospitalization Ordered by Poncho Mcghee MD for Inpatient ja1 Admission. Preliminary diagnosis is Positive Covid 19. Pneumonia Sepsis Elevated Troponin. Bed requested for [facility] ER HOLD. Status is Inpatient Admission. Condition is Stable. Problem is new. Symptoms are unchanged. bd 19:34 18:40 06/08/2020 06:48 Hospitalization Ordered by Poncho Mcghee MD for Inpatient mg2 Admission. Preliminary diagnosis is Positive Covid 19. Pneumonia Sepsis Elevated Troponin. Bed requested for Telemetry/MedSurg (Inpatient). Status is Inpatient Admission. Condition is Stable. Problem is new. Symptoms are unchanged. ja1
[2020-06-08 07:09] LABS: Urine Bacteria <20 /HPF (NONE SEEN)
[2020-06-08] MEDS ORDERED: ALBUTEROL INHALER 60 PUFF/8 GM IH PRN (07:50)
[2020-06-08] MEDS ORDERED: MORPHINE 2 MG/ML SYR IV PRN (07:50)
[2020-06-08] MEDS ORDERED: ONDANSETRON 4 MG/2 ML VIAL IV PRN (07:50)
[2020-06-08] MEDS ORDERED: ACETAMINOPHEN 500 MG TAB PO PRN (07:50)
[2020-06-08] MEDS ORDERED: BENZONATATE 100 MG CAP PO PRN (07:50)
[2020-06-08] MEDS ORDERED: AZITHROMYCIN IV 500 MG in NA CHLORIDE 0.9% 250 ML IVPB ONE (08:00)
[2020-06-08] MEDS: NA CHLORIDE 0.9% 1,000 ML IV SCH (08:00)
--- NOTE | 2020-06-08 08:47 | RAD REPORT ---
EXAM DESCRIPTION: RAD - Chest Single View - 06/08/2020 1:57 am CLINICAL HISTORY: confused COMPARISON: Portable September 2019 TECHNIQUE: AP portable chest image was obtained 06/08/2020 1:57 am . FINDINGS: No peripheral mass or consolidation. Lung volumes are low which accentuates the baseline i nterstitial pattern. Sternotomy wires are in place. Heart and vasculature are normal. No measurable p leural effusion and no pneumothorax. No acute bony abnormality seen. No acute aortic findings suspect ed. IMPRESSION: No acute cardiopulmonary process. No significant change from comparison study.
[2020-06-08] MEDS: predniSONE 20 MG TAB PO SCH ×2 (09:00→19:48)
[2020-06-08] MEDS: ASPIRIN EC 81 MG TAB PO SCH (09:00)
[2020-06-08] MEDS ORDERED: ASPIRIN 81 MG CHEWABLE TABLET ONE (10:20)
[2020-06-08] MEDS ORDERED: predniSONE 20 MG TAB ONE (10:20)
--- NOTE | 2020-06-08 10:33 | RAD REPORT ---
EXAM DESCRIPTION: CT - Head Brain Wo Cont - 06/08/2020 6:19 am ADDENDUM #[address] of the head October 26, 2019 was made available for comparison. The images were reviewed. The ap pearance is overall unchanged, specifically the size of the ventricles. No change in the impression. Electronically signed by: Risa Dietrich MD 06/08/2020 4:24 AM CHECK INSPECTOR End of Addendum CLINICAL HISTORY: The patient is 65 years old and is Male; CONFUSED TECHNIQUE: Axial computed tomography images of the head/brain without intravenous contrast. Sagitt al and coronal reformatted images were created and reviewed. This CT exam was performed using one o r more of the following dose reduction techniques: automated exposure control, adjustment of the mA and/or kV according to patient size, and/or use of iterative reconstruction technique. COMPARISON: No relevant prior studies available. FINDINGS: ARTIFACTS: The exam is suboptimal secondary to motion artifact. BRAIN: Low attenuating focus within the pati is present. There is patchy hypoattenuation of the deep white matter which is non-specific, but most likely owing to chronic small vessel ischemic daniels e in a patient of this age group. There is diffuse cerebral atrophy present, consistent with this p atient's age. There is no intracranial hemorrhage, mass effect, or midline shift. There are no extr a-axial fluid collections. VENTRICLES: There is diffuse prominence of the ventricles, which is likely related to central at rophy. BONES/JOINTS: No acute fracture. SOFT TISSUES: Unremarkable. SINUSES: Unremarkable as visualized. No acute sinusitis. MASTOID AIR CELLS: Unremarkable as visualized. No mastoid effusion. ORBITS: Unremarkable as visualized. IMPRESSION: 1. Age-related atrophy and chronic white matter ischemic changes, with no evidence of an acute intracranial abnormality. 2. Evidence of prior pontine lacunar infarct. Electronically signed by: Risa Dietrich MD 06/08/2020 3:22 AM CHECK INSPECTOR Due to temporary technical issues with the PACS/Fluency reporting system, reports are being signed by the in house radiologist without review as a courtesy to ensure prompt reporting. The interpreting r adiologist is fully responsible for the content of the report.
--- NOTE | 2020-06-08 10:34 | RAD REPORT ---
EXAM DESCRIPTION: CT - Thorax Gabino Rodriguez - 06/08/2020 6:18 am CLINICAL HISTORY: The patient is 65 years old and is Male; fever, sob TECHNIQUE: Axial computed tomography images of the chest without intravenous contrast. Sagittal an d coronal reformatted images were created and reviewed. This CT exam was performed using one or mor e of the following dose reduction techniques: automated exposure control, adjustment of the mA and/ or kV according to patient size, and/or use of iterative reconstruction technique. COMPARISON: No relevant prior studies available. FINDINGS: ARTIFACTS: The exam is suboptimal secondary to motion artifact. LUNGS: Subtle groundglass opacities within the right middle lobe, lingula, and bilateral lower l obes are present. The upper lobes are clear. PLEURAL SPACE: Unremarkable. No pneumothorax. No significant effusion. HEART: Trace pericardial effusion is present. BONES/JOINTS: Median sternotomy wires are present. Multilevel degenerative changes spine is pr esent. SOFT TISSUES: The soft tissues are normal. VASCULATURE: Unremarkable. No thoracic aortic aneurysm. LYMPH NODES: Unremarkable. No enlarged lymph nodes. IMPRESSION: Nonspecific groundglass opacities as described. Imaging features are atypical or uncommo nly reported for (COVID-19 or viral) pneumonia. Alternative diagnoses should be considered. [id number] Electronically signed by: Risa Dietrich MD 06/08/2020 3:24 AM CEMENT BASED MATERIALS PUMP TENDER Due to temporary technical issues with the PACS/Fluency reporting system, reports are being signed by the in house radiologist without review as a courtesy to ensure prompt reporting. The interpreting r adiologist is fully responsible for the content of the report.
[2020-06-08 12:16] LABS: Magnesium 1.9 mg/dL (1.8-2.4)
[2020-06-08 12:21] LABS: Troponin I 0.74 ng/mL (0.0-0.045)
[2020-06-08] MEDS: CEFTRIAXONE/SWI 1gm 1 GM/10 ML SYR IV SCH (12:54)
[2020-06-08] MEDS ORDERED: CEFTRIAXONE/SWI 1gm 1 GM/10 ML SYR ONE (13:02)
[2020-06-08] MEDS ORDERED: CLOPIDOGREL 75 MG TABLET PO ONE (15:15)
[2020-06-08] MEDS ORDERED: METOPROLOL TAR 50 MG TAB PO ONE (16:00)
[2020-06-08] MEDS ORDERED: METOPROLOL TAR 50 MG TAB ONE ×2 (16:38→18:44)
[2020-06-08] MEDS ORDERED: CLOPIDOGREL 75 MG TABLET ONE (16:38)
[2020-06-08 17:10] VITALS: BMI 31.3
[2020-06-08] MEDS ORDERED: ENOXAPARIN 100 MG/ML SYR SQ ONE (18:44)
[2020-06-08] MEDS: METOPROLOL TAR 50 MG TAB PO SCH (19:25)
[2020-06-08] MEDS: ENOXAPARIN 100 MG/ML SYR SQ SCH ×2 (19:26→19:48)
[2020-06-08] MEDS: ATORVASTATIN 40 MG TAB PO SCH (19:48)
[2020-06-08] MEDS ORDERED: D50W 25 GM/50 ML SYRINGE IV PRN (22:25)
[2020-06-08] MEDS ORDERED: GLUCAGON 1 MG/VIAL IM PRN (22:25)
[2020-06-09] MEDS: INSULIN -REGULAR HUMAN 50 UNIT/0.5 ML ML SQ SCH ×5 (00:45→22:04)
[2020-06-09 05:17] LABS: Absolute Lymphocytes (CBC) 1.1 K/uL (0.7-4.9); Basophils % 0.4 % (0-1.3); Hematocrit 41.3 % (39.6-49.0); Lymphocytes % 9.2 % (15.3-44.8); MPV 9.2 fL (7.6-11.3); RBC Red Blood Cell Count 4.49 M/uL (4.33-5.43)
[2020-06-09] MEDS: METOPROLOL TAR 50 MG TAB PO SCH ×2 (05:18→17:36)
[2020-06-09 05:32] LABS: Albumin 2.8 g/dL (3.4-5.0); Bilirubin Total 0.8 mg/dL (0.2-1.0); Ferritin 525.1 ng/mL (26-388); Magnesium 2.5 mg/dL (1.8-2.4); Potassium 4.7 mmol/L (3.5-5.1); Protein, Total 7.5 g/dL (6.4-8.2)
--- NOTE | 2020-06-09 06:11 | EKG ---
Test Date: 2020-06-08 Test Time: 01:13:44 Correctional Case Records Supervisor: SWG MEASUREMENT RESULTS: Intervals: Rate: 125 ID: [id number] QRSD: 88 QT: 294 QTc: 424 [place]: P: 80 ID: [id number] QRS: 6 T: 52 INTERPRETIVE STATEMENTS: Sinus tachycardia Otherwise normal ECG Compared to ECG 10/26/2019 20:20:38 Fusion complex(es) no longer present Ventricular premature complex(es) no longer present Electronically Signed On 06-09-20 06:09:05 FRUIT OR NUT GROWER by Francois Moore
[2020-06-09] MEDS: CEFTRIAXONE/SWI 1gm 1 GM/10 ML SYR IV SCH (07:57)
[2020-06-09] MEDS: ENOXAPARIN 100 MG/ML SYR SQ SCH ×2 (07:58→20:00)
[2020-06-09] MEDS: predniSONE 20 MG TAB PO SCH ×2 (07:58→20:01)
[2020-06-09] MEDS: ASPIRIN EC 81 MG TAB PO SCH (07:58)
[2020-06-09] MEDS: CLOPIDOGREL 75 MG TABLET PO SCH (07:58)
--- NOTE | 2020-06-09 08:40 | P.HP ---
Certification for Inpatient Patient admitted to: Inpatient With expected LOS: >2 Midnights Practitioner: I am a practitioner with admitting privileges, knowledge of patient current condition, hospital course, and medical plan of care. Services: Services provided to patient in accordance with Admission requirements found in Title 42 Section 412.3 of the Code of Federal Regulations Patient History Date of Service: 06/08/20 Reason for admission: Shortness of breath/interstitial pneumonia History of Present Illness: Patient is a 65-year-old gentleman who came to the hospital with chest pain and shortness of breath. Patient was found to have mildly elevated troponin and he was also found have COVID-[address] scan revealed infiltrates. Chest x-ray was negative. Troponins were mildly elevated and have increased. Patient denies any chest pain. Patient follows up with Cardiology locally. Will Consult Cardiology. Patient is not hypoxic. He is feeling better. He appears to be a little dehydrated at this time. He will need further workup. Patient was admitted to the hospital for further evaluation. Allergies No Known Allergies Allergy (Verified 10/26/19 23:03) Home Medications: Atorvastatin Calcium [Lipitor] 20 mg PO BEDTIME 10/27/19 Metformin HCl [Metformin HCl ER] 750 mg PO BID 10/27/19 Metoprolol Tartrate [Lopressor*] 50 mg PO BID 10/27/19 Latanoprost Ophth [Xalatan 0.005%*] 2.5 ml LEFT EYE DAILY 06/08/20 glyBURIDE [Glyburide] 5 mg PO BID 06/08/20 - Past Medical/Surgical History Has patient received pneumonia vaccine in the past: No Diabetic: Yes -: Hypertension -: Type 2 diabetes -: Coronary artery bypass grafting - Family History Father Family History: Reviewed- Non-Contributory - Social History Smoking Status: Never smoker Alcohol use: No CD- Drugs: No Caffeine use: No Place of Residence: Home Review of Systems 10-point ROS is otherwise unremarkable Physical Examination - Vital Signs Temperature: 96.8 F Blood Pressure: 122/68 Pulse: 74 Respirations: 20 Pulse Ox (%): 98 - Physical Exam General: Alert, In no apparent distress, Oriented x3 HEENT: Atraumatic, PERRLA, Mucous membr. moist/pink, EOMI, Sclerae nonicteric Neck: Supple, 2+ carotid pulse no bruit, No LAD, Without JVD or thyroid abnormality Respiratory: Clear to auscultation bilaterally, Normal air movement Cardiovascular: Regular rate/rhythm, Normal S1 S2, No murmurs Gastrointestinal: Normal bowel sounds, Soft and benign, Non-distended, No tenderness Musculoskeletal: No clubbing, No swelling, No tenderness Integumentary: No rashes Neurological: Normal gait, Normal speech, Normal strength at 5/5 x4 extr, Normal tone, Sensation intact, Cranial nerves 3-12 intact, Normal affect Lymphatics: No axilla or inguinal lymphadenopathy - Studies Laboratory Data (last 24 hrs) 06/08/20 11:35: Magnesium 1.9 D, Troponin I 0.74 H* Assessment & Plan - Problems (Diagnosis) (1) Pneumonia due to COVID-19 virus Current Visit: Yes Status: Acute (2) Elevated troponin Current Visit: Yes Status: Acute (3) Non-STEMI (non-ST elevated myocardial infarction) Current Visit: Yes Status: Acute - Plan 1. Serial troponins and EKG 2. Cardiology consultation 3. Echocardiogram 4. Anti-platelet therapy, anti coagulation, beta-yoav, statin, and O2 as needed 5. IV morphine for pain 6. Nitro p.r.n. 7. Supportive care for COVID-19 pneumonia. Patient is not hypoxic. Will continue low-dose steroids. 8. GI and DVT prophylaxis Discharge Plan: Home Plan to discharge in: Greater than 2 days - Advance Directives Does patient have a Living Will: No Does patient have a Durable POA for Healthcare: No - Code Status/Comfort Care Code Status Assessed: Yes Code Status: Full Code Critical Care: No Time Spent Managing PTS Care (In Minutes): 35
[2020-06-09] MEDS: NA CHLORIDE 0.9% 1,000 ML IV SCH (17:35)
[2020-06-09] MEDS: ATORVASTATIN 40 MG TAB PO SCH (20:01)
--- NOTE | 2020-06-09 20:26 | CON ---
Date of Consultation: 06/09/2020 Reason For Consultation: COVID pneumonia and elevated troponin. History Of Present Illness: Mr. Hull is a 65-year-old black male with history of CABG, diabetes, hyp ertension, dyslipidemia, obesity, came in with shortness of breath, was found to have COVID pneumonia by chest CT. No chest pain reported. No PND, orthopnea, pedal edema, palpitation, or syncope. He has been treated for his COVID with antibiotics, prednisone. He is on Rocephin, Zithromax, and predn isone. He is also on his home including aspirin, Lipitor, Plavix, lovastatin, insulin, and metoprolo l. He is not having any symptoms right now. Allergies: NONE. Review of Systems: Negative. Social History: Negative. Family History: Negative. Physical Examination: Vital Signs: Stable, afebrile. HEENT: Negative. Neck: Supple without any bruit, lymphadenopathy, JVD, or thyromegaly. Chest: Clear to auscultation and percussion. Cardiac: Exam revealed a regular rhythm and rate. No murmurs, gallops, or rubs. Abdomen: Benign. Extremities: Revealed no clubbing, cyanosis, or edema. Diagnostic Data: CT of the chest showed COVID pneumonia. CT of his head showed old lacunar infarct. Chest x-ray was negative. Magnesium was 1.4. Troponin is 0.74. CRP was 175. BNP is 3298. Impression And Plan: 1.Elevated troponin secondary to demand ischemia. 2.Stable coronary artery disease status post coronary artery bypass grafting. 3.Diabetes. 4.Hypertension. 5.Dyslipidemia. 6.Old cerebrovascular accident. 7.Low magnesium that needs to be supplemented. I agree with Mr. Hull's present regimen. An echocardiogram, which was done revealed normal wall yoselin on without any effusion. Normal ejection fraction. This confirmed that this probably is demand isch emia. I certainly would not change his medical regimen. Once he is done with his COVID treatment an d he has improved in the next 2 to 4 weeks, I will probably have him come to the office and do a stre ss test. NB/MODL Voice ID: [id number] Report ID: [id number]
[2020-06-10] MEDS: METOPROLOL TAR 50 MG TAB PO SCH (05:12)
[2020-06-10] MEDS: ENOXAPARIN 100 MG/ML SYR SQ SCH (08:18)
[2020-06-10] MEDS: predniSONE 20 MG TAB PO SCH (08:19)
[2020-06-10] MEDS: CEFTRIAXONE/SWI 1gm 1 GM/10 ML SYR IV SCH (08:19)
[2020-06-10] MEDS: CLOPIDOGREL 75 MG TABLET PO SCH (08:19)
[2020-06-10] MEDS: ASPIRIN EC 81 MG TAB PO SCH (08:19)
[2020-06-10] MEDS: INSULIN -REGULAR HUMAN 50 UNIT/0.5 ML ML SQ SCH (08:20)
--- NOTE | 2020-06-10 08:25 | ECHO ---
HEIGHT: 5 ft 6 in WEIGHT: 194 lb 0.109 oz DATE OF STUDY: 06/09/[address]: Poncho Mcghee MD 2-DIMENSIONAL: YES M.MODE: YES DOPPLER: YES COLOR FLOW: YES TDS: PORTABLE: DEFINITY: BUBBLE STUDY: DIAGNOSIS: NON ST ELEVATION MYOCARDIAL INFARCTION CARDIAC HISTORY: CATHERIZATION: SURGERY: PROSTHETIC VALVE: PACEMAKER: MEASUREMENTS (cm) DIASTOLIC (NORMALS) SYSTOLIC (NORMALS) IVSd 1.3 (0.6-1.2) LA Diam 4.6 (1.9-4.0) LVEF 68% LVIDd 4.4 (3.5-5.7) LVIDs 2.7 (2.0-3.5) %FS 38% LVPWd 1.0 (0.6-1.2) Ao Diam 2.5 (2.0-3.7) 2 DIMENSIONAL ASSESSMENT: RIGHT ATRIUM: NORMAL LEFT ATRIUM: NORMAL RIGHT VENTRICLE: NORMAL LEFT VENTRICLE: NORMAL TRICUSPID VALVE: NORMAL MITRAL VALVE: NORMAL PULMONIC VALVE: NORMAL AORTIC VALVE: NORMAL PERICARDIAL EFFUSION: NONE AORTIC ROOT: NORMAL LEFT VENTRICULAR WALL MOTION: DOPPLER/COLOR FLOW: COMMENTS: NORMAL 2-DIMENSIONAL ECHOCARDIOGRAM WITH DOPPLER. NO WALL MOTION ABNORMALITY. NO EFFUSION. TECHNOLOGIST: GUILLERMO TAN
[2020-06-10 10:20] VITALS: O2SAT 94
[2020-06-10 13:13] VITALS: BP 122/79; TEMP 97.7
--- NOTE | 2020-06-16 02:40 | P.PN ---
Subjective Date of Service: 06/09/20 Subjective: No new changes, No C/O voiced, Improving Review of Systems 10-point ROS is otherwise unremarkable Physical Examination - Vital Signs Temperature: 97.7 F Blood Pressure: 122/79 Pulse: 72 Respirations: 18 Pulse Ox (%): 97 - Physical Exam General: Alert, In no apparent distress, Oriented x3 Respiratory: Clear to auscultation bilaterally, Normal air movement Cardiovascular: Regular rate/rhythm, Normal S1 S2 Gastrointestinal: Normal bowel sounds, Hypoactive, Soft and benign, Non- distended Assessment & Plan - Problems (Diagnosis) (1) Pneumonia due to COVID-19 virus Status: Acute (2) Elevated troponin Status: Acute (3) Non-STEMI (non-ST elevated myocardial infarction) Status: Acute - Plan Continue with supportive care as mentioned below 1. Serial troponins and EKG have been negative 2. Cardiology consultation has been appreciated 3. Echocardiogram Pending 4. Anti-platelet therapy, anti coagulation, beta-yoav, statin, and O2 as needed; These will be continued 5. IV morphine for pain 6. Nitro p.r.n. 7. Supportive care for COVID-19 pneumonia. Patient is not hypoxic. Will continue low-dose steroids. 8. GI and DVT prophylaxis Discharge Plan: Home Plan to discharge in: Greater than 2 days - Advance Directives Does patient have a Living Will: No Does patient have a Durable POA for Healthcare: No - Code Status/Comfort Care Code Status: Full Code Critical Care: No Time Spent Managing PTS Care (In Minutes): 35
--- NOTE | 2020-06-16 02:46 | P.DS ---
Discharge Date: 06/10/20 Disposition: ROUTINE DISCHARGE Discharge Condition: GOOD Reason for Admission: Shortness of breath/interstitial pneumonia Consultations: Investor Relations Associate - Problems (1) Pneumonia due to COVID-19 virus Status: Acute (2) Elevated troponin Status: Acute (3) Non-STEMI (non-ST elevated myocardial infarction) Status: Acute Brief History of Present Illness: Patient is a 65-year-old gentleman who came to the hospital with chest pain and shortness of breath. Patient was found to have mildly elevated troponin and he was also found have COVID-[address] scan revealed infiltrates. Chest x-ray was negative. Troponins were mildly elevated and have increased. Patient denies any chest pain. Patient follows up with Cardiology locally. Will Consult Cardiology. Patient is not hypoxic. He is feeling better. He appears to be a little dehydrated at this time. He will need further workup. Patient was admitted to the hospital for further evaluation. Hospital Course: Patient has done well during hospital stay and will follow up as an outpatient with cardiology in 1-2 weeks Vital Signs/Physical Exam: Temp Pulse Resp BP Pulse Ox 97.7 F 72 18 122/79 97 06/16/20 02:42 06/16/20 02:42 06/16/20 02:42 06/16/20 02:42 06/16/20 02:42 General: Alert, In no apparent distress, Oriented x3 Laboratory Data at Discharge: WBC Cancelled 06/09/20 06:00 Hgb Cancelled 06/09/20 06:00 Hct Cancelled 06/09/20 06:00 Plt Count Cancelled 06/09/20 06:00 PT 12.5 SECONDS (9.5-12.5) 06/08/20 01:31 INR 1.06 06/08/20 01:31 Sodium Cancelled 06/09/20 05:00 Potassium Cancelled 06/09/20 05:00 BUN Cancelled 06/09/20 05:00 Creatinine Cancelled 06/09/20 05:00 Glucose Cancelled 06/09/20 05:00 Magnesium 2.5 mg/dL (1.8-2.4) H D 06/09/20 04:39 Total Bilirubin Cancelled 06/09/20 05:00 AST Cancelled 06/09/20 05:00 ALT Cancelled 06/09/20 05:00 Alkaline Phosphatase Cancelled 06/09/20 05:00 Troponin I 0.74 ng/mL (0.0-0.045) H* 06/08/20 11:35 Triglycerides 109 mg/dL (<150) 06/09/20 04:39 Cholesterol 154 mg/dL (<200) 06/09/20 04:39 HDL Cholesterol 29 mg/dL (40-60) L 06/09/20 04:39 Cholesterol/HDL Ratio 5.31 06/09/20 04:39 Home Medications: Atorvastatin Calcium [Lipitor] 20 mg PO BEDTIME 10/27/19 Metformin HCl [Metformin HCl ER] 750 mg PO BID 10/27/19 Metoprolol Tartrate [Lopressor*] 50 mg PO BID 10/27/19 Latanoprost Ophth [Xalatan 0.005%*] 2.5 ml LEFT EYE DAILY 06/08/20 glyBURIDE [Glyburide] 5 mg PO BID 06/08/20 Patient Discharge Instructions: OK TO DC IV AND DC HOME. FOLLOW-UP WITH PRIMARY CARE PROVIDER IN 1-2 WEEKS. FOLLOW-UP WITH CARDIOLOGY IN 1-[address] CALL or TEXT [address] MEJIAS AT [phone] IF ANY QUESTIONS REGARDING HOSPITAL STAY. PLEASE CALL THE FLOOR AT [phone] IF ANY MEDICATION OR NURSING QUESTIONS. Diet: Low sodium Activity: Fall precautions Followup: Francois Moore MD [ACTIVE - CAN ADMIT] - (call to schedule appointment ) Eyal Chris MD [Primary Care Provider] - (call to schedule appointment) Time spent managing pt's care (in minutes): 45
== END 2020-06-10 12:30 | disposition home or self-care (01) | DRG 177 ==
LOC: ER 00:37 → ERHOLD 08:39 → OBSVTOIN 11:53 → 4TH 19:30
PROVIDERS: ADMIT Hospitalist; ATTEND Hospitalist
DX: U07.1 COVID-19 (principal); J12.82 Pneumonia due to coronavirus disease 2019; I21.A1 Myocardial infarction type 2; E86.0 Dehydration; E11.9 Type 2 diabetes mellitus without complications; E78.5 Hyperlipidemia, unspecified; I25.10 Atherosclerotic heart disease of native coronary artery without angina pectoris; I10 Essential (primary) hypertension; Z79.899 Other long term (current) drug therapy; Z95.1 Presence of aortocoronary bypass graft; Z79.02 Long term (current) use of antithrombotics/antiplatelets; Z79.82 Long term (current) use of aspirin; Z79.4 Long term (current) use of insulin; Z86.73 Personal history of transient ischemic attack (TIA), and cerebral infarction without residual deficits
CPT/HCPCS: 0240U; 36415; 70450; 71045; 71250; 80048; 80053; 80061; 80076; 81003; 81015; 82728; 82947; 83605; 83615; 83735; 83880; 84145; 84484; 85025; 85379; 85610; 86140; 87040; 93005; 93306; 96374; 99285; G0378; J0456; J0696; J1650; J3475; J7030; J7050; J7512

== ENCOUNTER 2023-06-27 15:59 | Inpatient (IN) | payer MEDICARE, OTHER ==
--- OUTSIDE RECORDS SUMMARY | 2023-06-27 16:02 | XMS REPORT | Continuity of Care Document ---
Author Name Unknown Address [address] [facility] [address] [place] [address] [facility] thconnect Address [address] [facility] [place] [address] Care Team Providers Care Music Promoter Name Role Phone Unavailable Unavailable Unavailable Payers Payer Name Policy Type Policy Number Effective Date Expirati on Date Source [facility] AARP MCR Advantage (HMO-POS) [id number] 2021 00:00:00 [facility] Problems Condition Name Condition Details Condition Category Status Onset Date Resolution Date Last Treatment Date Treating Clinician Comments Source [id number] ED (erectile dysfunctio n) of organic origin Problem [facility] [id number] Incomplete emptying of bladder Problem [facility] [id number] BPH loc w urin obs/LUTS Problem [facility] [id number] Prostate cancer screening Problem [facility] Social History Social Habit Start Date Stop Date Quantity Comments Source Sex Assigned At [facility] History of Tobacco Use [facility] Smoking Status Start Date Stop Date Source Never Smoker [facility] Medications Ordered Medication Name Filled Medication Name Start Date Stop Date Current Medication? Ordering Clinician Indication Dosage Frequency Signature (SIG) Comments Components Source Finasteride 5 MG Finasteride 5 MG 02-21 00:00: 00 No 1{table t} QD Finasterid e 5 MG Finasteride 5 MG Finasteride 5 MG 2022-0 02-21 00:00: 00 No 1{table t} QD Finasterid e 5 MG Finasteride 5 MG Finasteride 5 MG 2022-0 02-21 00:00: 00 No 1{table t} QD Finasterid e 5 MG Flomax 0.4 MG Flomax 0.4 MG 3-0 - 00:00: 00 No 2{capsu les} QD Flomax 0.4 MG Flomax 0.4 MG Flomax 0.4 MG 3-0 16 00:00: 00 No 2{capsu les} QD Flomax 0.4 MG Flomax 0.4 MG Flomax 0.4 MG 3-0 08-10 00:00: 00 No 2{capsu les} QD Flomax 0.4 MG Tadalafil (PAH) 20 MG Tadalafil (PAH) 20 MG No Tadalafil (PAH) 20 MG Tadalafil (PAH) 20 MG Tadalafil (PAH) 20 MG No Tadalafil (PAH) 20 MG Tadalafil (PAH) 20 MG Tadalafil (PAH) 20 MG No Tadalafil (PAH) 20 MG Vital Signs Vital Name Observation Time Observation Value Comments S ource height 2023-02-21 14:15:00 66 [in_i] [facility] weight 2023-02-21 14:15:00 188.2 [lb_av] [facility] temperature 2023-02-21 14:15:00 97.1 [degF] Com [facility] bmi 2023-02-21 14:15:00 30.37 kg/m2 [facility] oximetry 2023-02-21 14:15:00 99 % [facility] respiratory rate 2023-02-21 14:15:00 18 /min [facility] blood pressure systolic 2023-02-21 14:15:00 132 mm[Hg] [facility] blood pressure diastolic 2023-02-21 14:15:00 68 mm[Hg] [facility] height 2022-08-10 14:45:00 66 [in_i] [facility] weight 2022-08-10 14:45:00 198.2 [lb_av] [facility] temperature 2022-08-10 14:45:00 97.6 [degF] Com mon [facility] bmi 2022-08-10 14:45:00 31.99 kg/m2 [facility] oximetry 2022-08-10 14:45:00 98 % [facility] respiratory rate 2022-08-10 14:45:00 18 /min [facility] blood pressure systolic 2022-08-10 14:45:00 143 mm[Hg] [facility] blood pressure diastolic 2022-08-10 14:45:00 76 mm[Hg] [facility] Procedures Procedure Date / Time Performed Performing Clinicia n Source PVR 2023-02-21 00:00:00 [facility] PVR 2022-08-10 00:00:00 [facility] Encounters Start Date/Time End Date/Time Encounter Type Admission Type Attending [facility] Care Facility Care Department Encounter ID Source 2023-04-10 15:59:01 Outpatient [facility] [id number] [facility] 2022-08-10 14:08:00 Outpatient [facility]LMLC STL[facility] [id number] [facility] 2022-06-19 10:15:03 Outpatient [facility]LMLC STL[facility] [id number] [facility] 2022-04-24 17:17:01 Outpatient [facility] STL[facility] [id number] [facility] 2021-06-22 14:26:52 Outpatient [facility]ML[facility] STL[facility]C [id number] [facility] 2021-06-22 14:19:46 Outpatient STLMLC STLMLC [id number] [facility] 2023-02-21 00:00:00 2023-02-21 00:00:00 OFFICE VISIT ESTAB PT LEVEL 3 [facility]LMLC STLMLC [id number] [facility] 2022-10-12 00:00:00 2022-10-12 00:00:00 OFFICE VISIT ESTAB PT LEVEL 2 [facility]C STLMLC [id number] [facility] 2022-08-10 00:00:00 2022-08-10 00:00:00 OFFICE VISIT ESTAB PT LEVEL 5 [facility]LMLC STLMLC [id number] [facility]
[2023-06-27 16:42] LABS: Absolute Lymphocytes (CBC) 1.4 K/uL (0.7-4.9); Hematocrit 43.9 % (39.6-49.0); Lymphocytes % 10.4 % (15.3-44.8); Platelets 180 thou/uL (152-406); RBC Red Blood Cell Count 4.78 M/uL (4.33-5.43)
[2023-06-27 16:45] LABS: Protime INR 1.17
[2023-06-27] MEDS ORDERED: CEFTRIAXONE 1000 MG/VIAL ONE (16:57)
[2023-06-27] MEDS ORDERED: NA CHLORIDE 0.9% 1,000 ML ONE (16:57)
[2023-06-27 17:07] LABS: Albumin 3.2 g/dL (3.4-5.0); Bilirubin Direct 0.5 mg/dL (0-0.2); Bilirubin Indirect, Calculated 0.9 mg/dL (0.2-0.8); Bilirubin Total 1.4 mg/dL (0.2-1.0); Magnesium 1.9 mg/dL (1.6-2.4); Potassium 4.1 mEq/L (3.5-5.1); Protein, Total 8.5 g/dL (6.4-8.2); Troponin High Sensitivity 18.3 pg/mL (<58.9)
--- NOTE | 2023-06-27 17:27 | RAD REPORT ---
EXAM DESCRIPTION: Nikolai Single View06/27/2023 5:06 pm CLINICAL HISTORY: Chest pain COMPARISON: 2022 FINDINGS: The lungs appear clear of acute infiltrate. The heart is normal size post surgical change s involve the chest IMPRESSION: No acute abnormalities displayed
[2023-06-27 17:52] LABS: Specific Gravity 1.015 (1.005-1.030); Urine Bacteria None Seen /HPF (<20); Urine Bilirubin NEGATIVE (Negative); Urine Blood Negative (Negative); Urine Clarity Clear (Clear); Urine Color Light-Yellow (Yellow); Urine Glucose 4+ (Over) (Negative); Urine Protein 1+ (Negative); Urine RBC <5 /HPF (None Seen); Urine Urobilinogen Normal (Normal)
--- NOTE | 2023-06-27 18:18 | EDPHYS ---
Physician Documentation [facility] Name: Donald Hull Age: 68 yrs Sex: Male : 1955 Arrival Date: 06/27/2023 Time: 15:59 Bed 18 Private MD: ED Physician Nilesh Hunt HPI: 06/27 18:11 This 68 yrs old Black Male presents to ER via Ambulatory with complaints of Weakness. laura 18:11 The patient presents to the emergency department with weakness of the entire body, laura generalized weakness. Onset: The symptoms/episode began/occurred 2 day(s) ago. Context: occurred at an unknown location. Associated signs and symptoms: Pertinent positives: weakness. Severity of symptoms: At their worst the symptoms were moderate in the emergency department the symptoms are unchanged. Patient's baseline: Neuro: alert and fully oriented. Current symptoms: Currently, the patient is not experiencing any symptoms, the patient feels back to baseline. The patient has experienced similar episodes in the past, a few times. Historical: - Allergies: 16:10 No Known Allergies; bp - PMHx: 16:10 Diabetes - NIDDM; Hypertension; bp - Immunization history:: Adult Immunizations up to date. - Social history:: Smoking status: Patient denies any tobacco usage or history of. - Family history:: not pertinent. ROS: 18:11 Constitutional: Negative for fever, chills, and weight loss, Eyes: Negative for injury, laura pain, redness, and discharge, ENT: Negative for injury, pain, and discharge, Neck: Negative for injury, pain, and swelling, Respiratory: Negative for shortness of breath, cough, wheezing, and pleuritic chest pain, Abdomen/GI: Negative for abdominal pain, nausea, vomiting, diarrhea, and constipation, Back: Negative for injury and pain, : Negative for injury, bleeding, discharge, and swelling, MS/Extremity: Negative for injury and deformity, Skin: Negative for injury, rash, and discoloration, Neuro: Negative for headache, weakness, numbness, tingling, and seizure, Psych: Negative for depression, anxiety, suicide ideation, homicidal ideation, and hallucinations, Allergy/Immunology: Negative for hives, rash, and allergies, Endocrine: Negative for neck swelling, polydipsia, polyuria, polyphagia, and marked weight changes, Hematologic/Lymphatic: Negative for swollen nodes, abnormal bleeding, and unusual bruising, 18:11 Cardiovascular: Positive for palpitations, Exam: 18:11 Constitutional: This is a well developed, well nourished patient who is awake, alert, laura and in no acute distress. Head/Face: Normocephalic, atraumatic. Eyes: Pupils equal round and reactive to light, extra-ocular motions intact. Lids and lashes normal. Conjunctiva and sclera are non-icteric and not injected. Cornea within normal limits. Periorbital areas with no swelling, redness, or edema. ENT: Nares patent. No nasal discharge, no septal abnormalities noted. Tympanic membranes are normal and external auditory canals are clear. Oropharynx with no redness, swelling, or masses, exudates, or evidence of obstruction, uvula midline. Mucous membranes moist. Neck: Trachea midline, no thyromegaly or masses palpated, and no cervical lymphadenopathy. Supple, full range of motion without nuchal rigidity, or vertebral point tenderness. No Meningismus. Chest/axilla: Normal chest wall appearance and motion. Nontender with no deformity. No lesions are appreciated. Respiratory: Lungs have equal breath sounds bilaterally, clear to auscultation and percussion. No rales, rhonchi or wheezes noted. No increased work of breathing, no retractions or nasal flaring. Abdomen/GI: Soft, non-tender, with normal bowel sounds. No distension or tympany. No guarding or rebound. No evidence of tenderness throughout. Back: No spinal tenderness. No costovertebral tenderness. Full range of motion. Male : Normal genitalia with no discharge or lesions. Skin: Warm, dry with normal turgor. Normal color with no rashes, no lesions, and no evidence of cellulitis. MS/ Extremity: Pulses equal, no cyanosis. Neurovascular intact. Full, normal range of motion. Neuro: Awake and alert, GCS 15, oriented to person, place, time, and situation. Cranial nerves II-XII grossly intact. Motor strength 5/5 in all extremities. Sensory grossly intact. Cerebellar exam normal. Normal gait. Psych: Awake, alert, with orientation to person, place and time. Behavior, mood, and affect are within normal limits. 18:11 Cardiovascular: Rate: tachycardic, Rhythm: regular, Pulses: Pulses are 4+ in bilateral radial, brachial, femoral, popliteal, posterior tibial and and dorsalis pedis arteries.. Heart sounds: normal, Edema: is not appreciated, JVD: is not appreciated, 18:11 ECG was reviewed by the Attending Physician. Vital Signs: 16:10 BP 186 / 90; Pulse 124; Resp 20; Temp 98; Pulse Ox 98% ; bp 18:00 BP 184 / 93; Pulse 112; Resp 18; Pulse Ox 100% on R/A; mb9 19:01 Weight 81.65 kg; Height 5 ft. 9 in. ; mb9 19:07 BP 175 / 91; Pulse 118; Resp 18; Pulse Ox 98% ; mb9 19:22 BP 167 / 99; Pulse 115; Resp 17 S; Pulse Ox 98% on R/A; jw7 21:00 BP 187 / 90; Pulse 109; Resp 17 S; Pulse Ox 97% on R/A; jw7 19:01 Body Mass Index 26.58 (81.65 kg, 175.26 cm) 9 MDM: 16:16 Patient medically screened. laura 16:16 [facility]. [facility] 18:14 Data reviewed: vital signs, nurses notes, lab test result(s), EKG, radiologic studies, [facility] scan, plain films. Consideration of Admission/Observation Patient was admitted/placed on observation. Escalation of care including admission/observation considered. I considered the following discharge prescriptions or medication management in the emergency department Medications were administered in the Emergency Department. See MAR. Independent interpretation of the following test(s) in the Emergency Department EKG: See my EKG interpretation above. Test considered but Not performed: Ultrasound NO ABD USG. Historians other than the Patient: Spouse/Significant Other: WELL INFORMED. Care significantly affected by the following chronic conditions: Diabetes, Hypertension, Obesity. Counseling: I had a detailed discussion with the patient and/or guardian regarding the historical points, exam findings, and any diagnostic results supporting the discharge/admit diagnosis, lab results, radiology results, the need for further work-up and treatment in the hospital. 06/27 16:18 Order name: Basic Metabolic Panel; Complete Time: 17:46 [facility] 06/27 16:18 Order name: CBC with Diff; Complete Time: 17:46 [facility] 06/27 16:18 Order name: LFT's; Complete Time: 17:46 [facility] 06/27 16:18 Order name: Magnesium; Complete Time: 17:46 [facility] 06/27 16:18 Order name: NT PRO-BNP; Complete Time: 17:46 [facility] 06/27 16:18 Order name: PT-INR; Complete Time: 17:46 [facility] 06/27 16:18 Order name: Troponin HS; Complete Time: 17:46 [facility] 06/27 16:18 Order name: Lipase; Complete Time: 17:46 [facility] 06/27 16:18 Order name: Blood Culture Adult (2) [facility] 06/27 16:18 Order name: Lactate w/ 2H reflex if indic.; Complete Time: 17:46 [facility] 06/27 16:18 Order name: Urinalysis w/ reflexes; Complete Time: 17:59 [facility] 06/27 16:25 Order name: Glucose, Ancillary Testing; Complete Time: 17:46 [facility] 06/27 18:35 Order name: Flu [facility] 06/27 18:35 Order name: SARS RAPID [facility] 06/27 19:19 Order name: SARS-COV-2 Antigen Rapid; Complete Time: 19:28 [facility] 06/27 19:30 Order name: Influenza Screen (A ; Complete Time: 19:57 [facility] 06/27 20:47 Order name: Glucose, Ancillary Testing [facility] 06/27 16:18 Order name: XRAY Chest (1 view); Complete Time: 17:46 [facility] 06/27 18:00 Order name: CT Stone Protocol [facility] 06/27 19:10 Order name: CT; Complete Time: 19:28 [facility] 06/27 19:29 Order name: US Abdomen Limited [facility] 06/27 20:17 Order name: US; Complete Time: 20:23 [facility] 06/27 16:18 Order name: EKG; Complete Time: 16:19 [facility] 06/27 16:18 Order name: Cardiac monitoring; Complete Time: 16:54 [facility] 06/27 16:18 Order name: EKG - Nurse/Tech; Complete Time: 16:54 [facility] 06/27 16:18 Order name: IV Saline Lock; Complete Time: 16:34 [facility] 06/27 16:18 Order name: Labs collected and sent; Complete Time: 16:34 [facility] 06/27 16:18 Order name: O2 Per Protocol; Complete Time: 16:54 [facility] 06/27 16:18 Order name: O2 Sat Monitoring; Complete Time: 16:54 [facility] EC:11 Rate is 116 beats/min. Rhythm is regular. QRS [place] is Normal. HI interval is normal. laura QRS interval is normal. QT interval is normal. No Q waves. T waves are Normal. No ST changes noted. Clinical impression: Sinus tachycardia and No evidence of ischemia. Interpreted by me. Reviewed by me. Administered Medications: 17:15 Drug: NS 0.9% IV 1000 ml IV at 1 bolus Per protocol; 1000 mL bolus Route: IV; Rate: 1 mb9 bolus; Site: right forearm; 19:24 Follow up: Response: No adverse reaction; IV Status: Completed infusion; IV Intake: jw7 1000ml 17:15 Drug: Rocephin IV 1 grams IV at per protocol once; Given slow IV push per pharmacy mb9 instructions Route: IV; Rate: per protocol; Site: right forearm; 19:24 Follow up: Response: No adverse reaction; IV Status: Completed infusion; IV Intake: [id number] 18:25 Drug: Insulin Glargine Sub-Q 30 units Sub-Q once {Co-Signature: rs5 (Kushal Morris RN).} Route: Sub-Q; Site: right upper arm; 19:24 Follow up: Response: No adverse reaction jw7 18:35 Drug: Insulin Regular Human IVP 10 units IVP once {Co-Signature: rs5 (Kushal Morris RN).} Route: IVP; Site: right forearm; 19:24 Follow up: Response: No adverse reaction jw7 18:49 Drug: Metoprolol PO 50 mg PO once Route: PO; mb9 19:24 Follow up: Response: No adverse reaction jw7 21:02 Drug: Piperacillin-Tazobactam IVPB 3.375 grams IVPB once over 60 mins; (mix in NS 100 jw7 mL) Route: IVPB; Infused Over: 60 mins; Site: right forearm; 21:22 Follow up: Response: No adverse reaction; IV Status: Infusion continued upon admission; jw7 IV Intake: 50ml Disposition Summary: 06/27/23 18:17 Hospitalization Ordered Notes: Hospitalization Status: Observation laura Provider: Kenneth Cummings cha Location: Telemetry/MedSurg (observation) laura Condition: Stable laura Problem: new laura Symptoms: have improved laura Bed/Room Type: Standard laura Room Assignment: 210(06/27/23 19:03) lg3 Diagnosis - Weakness laura - Tachycardia, unspecified laura - Type 2 diabetes mellitus with hyperglycemia laura - Essential (primary) hypertension laura - Elevated white blood cell count laura - Abnormal findings on diagnostic imaging of liver and biliary tract - SMALL TO laura MODERATE AMOUNT OF SLUDGE, MILD WALL THICKENING Forms: - Medication Reconciliation Form laura - SBAR form laura - Leadership Thank You Letter laura Signatures: Dispatcher [employer] EDMS Irlanda Neely Corey, MD MD cha Peltier, Brian RN RN Radha Suarez RN RN lg3 Sydney Blake RN RN jw7 Renetta Tobin RN RN mb9 Kushal Morris RN rs5 Corrections: (The following items were deleted from the chart) 18:50 18:17 laura bd 18:58 18:50 210 bd bd 19:03 18:58 211 bd lg3
--- NOTE | 2023-06-27 18:18 | ER ---
Nurse's Notes [facility] Name: Donald Hull Age: 68 yrs Sex: Male : 1955 Arrival Date: 06/27/2023 Time: 15:59 Bed 18 Private MD: Diagnosis: Weakness;Tachycardia, unspecified;Type 2 diabetes mellitus with hyperglycemia;Essential (primary) hypertension;Elevated white blood cell count;Abnormal findings on diagnostic imaging of liver and biliary tract-SMALL TO MODERATE AMOUNT OF SLUDGE, MILD WALL THICKENING Presentation: 06/27 16:10 Chief complaint: Spouse and/or significant other states: GENERAL WEAKNESS x2 HR. bp Coronavirus screen: At this time, the client does not indicate any symptoms associated with coronavirus-19. Ebola Screen: No symptoms or risks identified at this time. No acute neurological deficit is noted. The patients blood glucose was checked prior to arriving to the hospital and was found to be hyperglycemic. Initial Sepsis Screen: Does the patient meet any 2 criteria? No. Patient's initial sepsis screen is negative. Does the patient have a suspected source of infection? No. Patient's initial sepsis screen is negative. Risk Assessment: Do you want to hurt yourself or someone else? Patient reports no desire to harm self or others. Onset of symptoms was June 27, 2023 at 14:00. 16:10 Method Of Arrival: Ambulatory bp 16:10 Acuity: NASIMA 3 bp Triage Assessment: 16:10 The onset of the patients symptoms was June 27, 2023 at 14:00. General: Appears in bp no apparent distress. Behavior is cooperative, listless. Pain: Denies pain. Neuro: Reports weakness GENERALIZED. Historical: - Allergies: 16:10 No Known Allergies; bp - PMHx: 16:10 Diabetes - NIDDM; Hypertension; bp - Immunization history:: Adult Immunizations up to date. - Social history:: Smoking status: Patient denies any tobacco usage or history of. - Family history:: not pertinent. Screenin:35 Abuse screen: Denies threats or abuse. Nutritional screening: No deficits noted. ap3 Tuberculosis screening: No symptoms or risk factors identified. 19:01 [facility] ED Fall Risk Assessment (Adult) History of falling in the last 3 months, mb9 including since admission No falls in past 3 months (0 pts) Confusion or Disorientation No (0 pts) Intoxicated or Sedated No (0 pts) Impaired Gait No (0 pts) Mobility Assist Device Used No (0 pt) Altered Elimination No (0 pt) Score/Fall Risk Level 0 - 2 = Low Risk Oriented to surroundings, Maintained a safe environment, Educated pt \T\ family on fall prevention, incl call for assistance when getting out of bed. Assessment: 16:35 General: Appears in no apparent distress. Behavior is calm, cooperative, appropriate ap3 for age. Neuro: Level of Consciousness is awake, alert, obeys commands, Oriented to person, place, time, situation, Appropriate for age. Cardiovascular: Patient's skin is warm and dry. Respiratory: Airway is patent Respiratory effort is even, unlabored, Respiratory pattern is regular, symmetrical. : Reports urinary frequency. 18:00 Reassessment: No changes from previously documented assessment. Patient and/or family mb9 updated on plan of care and expected duration. Pain level reassessed. Patient is alert, oriented x 3, equal unlabored respirations, skin warm/dry/pink. 19:22 Reassessment: Patient appears in no apparent distress at this time. Patient and/or jw7 family updated on plan of care and expected duration. Pain level reassessed. Patient is alert, oriented x 3, equal unlabored respirations, skin warm/dry/pink. 20:28 Reassessment: Patient appears in no apparent distress at this time. No changes from 7 previously documented assessment. Patient and/or family updated on plan of care and expected duration. Pain level reassessed. Patient is alert, oriented x 3, equal unlabored respirations, skin warm/dry/pink. General: Report Given to NAFISA Frazier. 21:15 Reassessment: Patient appears in no apparent distress at this time. Patient and/or jw7 family updated on plan of care and expected duration. Pain level reassessed. Patient is alert, oriented x 3, equal unlabored respirations, skin warm/dry/pink. Vital Signs: 16:10 BP 186 / 90; Pulse 124; Resp 20; Temp 98; Pulse Ox 98% ; bp 18:00 BP 184 / 93; Pulse 112; Resp 18; Pulse Ox 100% on R/A; mb9 19:01 Weight 81.65 kg; Height 5 ft. 9 in. ; mb9 19:07 BP 175 / 91; Pulse 118; Resp 18; Pulse Ox 98% ; mb9 19:22 BP 167 / 99; Pulse 115; Resp 17 S; Pulse Ox 98% on R/A; jw7 21:00 BP 187 / 90; Pulse 109; Resp 17 S; Pulse Ox 97% on R/A; jw7 19:01 Body Mass Index 26.58 (81.65 kg, 175.26 cm) mb9 ED Course: 16:03 Patient arrived in ED. im 16:14 Triage completed. bp 16:14 Arm band placed on. bp 16:16 Nilesh Hunt MD is Attending Physician. laura 16:30 Initial lab(s) drawn, by me, sent to lab. First set of blood cultures drawn by me. ap3 16:34 Inserted saline lock: 20 gauge in right forearm, using aseptic technique. ap3 16:34 Lactate w/ 2H reflex if indic. Sent. ap3 16:34 Lipase Sent. ap3 16:34 Basic Metabolic Panel Sent. ap3 16:35 CBC with Diff Sent. ap3 16:35 LFT's Sent. ap3 16:35 Magnesium Sent. ap3 16:35 NT PRO-BNP Sent. ap3 16:35 PT-INR Sent. ap3 16:35 Troponin HS Sent. ap3 16:53 Renetta Tobin, NAFISA is Primary Nurse. mb9 17:05 EKG done, by ED staff, reviewed by Nilesh Hunt MD. ap3 17:08 XRAY Chest (1 view) In Process Unspecified. EDMS 17:15 Blood Culture Adult (2) Sent. mb9 18:17 Kenneth Cummings MD is Hospitalizing Provider. laura 18:49 SARS RAPID Sent. mb9 18:49 Flu Sent. mb9 19:00 Report given to NAFISA Grimes. mb9 19:01 Placed in gown. Bed in low position. Call light in reach. Side rails up X 1. Client mb9 placed on continuous cardiac and pulse oximetry monitoring. NIBP monitoring applied. 19:08 No provider procedures requiring assistance completed. Patient admitted, IV remains in mb9 place. 20:30 Provided Education on: need for admit. jw7 Administered Medications: 17:15 Drug: NS 0.9% IV 1000 ml IV at 1 bolus Per protocol; 1000 mL bolus Route: IV; Rate: 1 mb9 bolus; Site: right forearm; 19:24 Follow up: Response: No adverse reaction; IV Status: Completed infusion; IV Intake: jw7 1000ml 17:15 Drug: Rocephin IV 1 grams IV at per protocol once; Given slow IV push per pharmacy mb9 instructions Route: IV; Rate: per protocol; Site: right forearm; 19:24 Follow up: Response: No adverse reaction; IV Status: Completed infusion; IV Intake: [id number] 18:25 Drug: Insulin Glargine Sub-Q 30 units Sub-Q once {Co-Signature: rsHeath (Kushal Morris RN).} Route: Sub-Q; Site: right upper arm; 19:24 Follow up: Response: No adverse reaction jw7 18:35 Drug: Insulin Regular Human IVP 10 units IVP once {Co-Signature: rsHeath (Kushal Morris RN).} Route: IVP; Site: right forearm; 19:24 Follow up: Response: No adverse reaction jw7 18:49 Drug: Metoprolol PO 50 mg PO once Route: PO; mb9 19:24 Follow up: Response: No adverse reaction jw7 21:02 Drug: Piperacillin-Tazobactam IVPB 3.375 grams IVPB once over 60 mins; (mix in NS 100 jw7 mL) Route: IVPB; Infused Over: 60 mins; Site: right forearm; 21:22 Follow up: Response: No adverse reaction; IV Status: Infusion continued upon admission; jw7 IV Intake: 50ml Medication: 19:01 VIS not applicable for this client. mb9 Intake: 19:24 IV: 10ml; Total: 10ml. jw7 19:24 IV: 1000ml; Total: 1010ml. jw7 21:22 IV: 50ml; Total: 1060ml. jw7 Outcome: 18:17 Decision to Hospitalize by Provider. laura 20:29 Admitted to Med/surg accompanied by nurse, via stretcher, room 210, Report called to ilan Frazier RN 20:29 Condition: stable 20:29 Instructed on the need for admit, Demonstrated understanding of instructions, 21:20 Patient left the ED. ilan Signatures: Dispatcher [facility] Nilesh Dickerson MD MD cha Peltier, Brian RN RN Soo Murillo RN RN ap3 Sydney Blake RN RN jw7 Renetta Tobin RN RN mb9 Rupinder Wyatt Ricky RN rs5 Corrections: (The following items were deleted from the chart) 18:53 17:31 BP 184 / 93; Pulse 112bpm; Resp 18bpm; Pulse Ox 100% RA; mb9 mb9
[2023-06-27] MEDS ORDERED: METOPROLOL XL 50 MG TAB PO ONE (18:26)
[2023-06-27] MEDS ORDERED: INSULIN REGULAR (HUMAN) 100 UNIT/ML ONE (18:27)
[2023-06-27] MEDS ORDERED: INSULIN GLARGINE 100 UNIT/ML SQ ONE (18:27)
--- NOTE | 2023-06-27 19:09 | RAD REPORT ---
EXAM DESCRIPTION: CT - Stone Protocol - 06/27/2023 6:58 pm CLINICAL HISTORY: Abdominal pain. COMPARISON: None. TECHNIQUE: Computed axial tomography of the abdomen pelvis was obtained without oral or IV contrast. Lack of IV and oral contrast limits evaluation of solid organs, appendix, bowel, and vessels. Hook l reformatted images were obtained and reviewed. All CT scans are performed using dose optimization technique as appropriate and may include automated exposure control or mA/KV adjustment according to patient size. FINDINGS: A renal calculus is not seen. An ureteral calculus is not noted. A bladder calculus is not present. No hydronephrosis Gallbladder is mildly distended. Gallbladder wall may be mildly thickened. Mild stranding within the adjacent fat The liver, spleen, pancreas and adrenals appear grossly normal There is no evidence of diverticulitis. The appendix appears normal IMPRESSION: Negative for a genitourinary calculus Mild gallbladder distention. Gallbladder wall may be mildly thickened with mild stranding within the adjacent fat may indicate cholecystitis. Gallbladder ultrasound is recommended
[2023-06-27 19:18] LABS: SARS-CoV-2 Antigen Rapid Res Negative (Negative)
--- NOTE | 2023-06-27 20:16 | RAD REPORT ---
EXAM DESCRIPTION: US - Abdomen Exam Limited - 06/27/2023 7:59 pm CLINICAL HISTORY: Abdominal pain. COMPARISON: CT June 27, 2023 FINDINGS: Small to moderate amount of gallbladder sludge. A gallstone is not seen. Gallbladder is distended. Mild gallbladder wall thickening The biliary tree is normal caliber. IMPRESSION: Distended gallbladder. Small to moderate amount sludge Mild gallbladder wall thickening can be seen with cholecystitis or hypoalbuminemia
[2023-06-27] MEDS ORDERED: NA CHLORIDE 0.9% 100 ML ONE (20:40)
[2023-06-27] MEDS ORDERED: PIPERACIL/TAZO 3.375 GM VIAL IV ONE (20:40)
[2023-06-27] MEDS ORDERED: ONDANSETRON 4 MG/2 ML VIAL IV PRN (20:44)
[2023-06-27] MEDS ORDERED: GLUCAGON 1 MG/VIAL IM PRN (20:44)
[2023-06-27] MEDS ORDERED: D50W 25 GM/50 ML SYRINGE IV PRN (20:44)
[2023-06-27] MEDS: INSULIN REGULAR (HUMAN) 100 UNIT/ML SQ SCH (20:51)
[2023-06-27] MEDS: INSULIN GLARGINE 100 UNIT/ML SQ SCH (21:00)
[2023-06-27] MEDS ORDERED: D10W 125 ML IV PRN (21:15)
[2023-06-27] MEDS: cloNIDine HCL 0.1 MG TAB PO PRN (22:40)
[2023-06-27] MEDS: NA CHLORIDE 0.9% 1,000 ML IV SCH (22:40)
[2023-06-27] MEDS: ACETAMINOPHEN 500 MG TAB PO PRN (22:42)
[2023-06-28] MEDS: PIPER TAZO 3.375 GM in NA CHLORIDE 0.9% 100 ML IV SCH (02:26)
[2023-06-28] MEDS: METOPROLOL TAR 25 MG TAB PO SCH (06:16)
[2023-06-28 07:55] LABS: Absolute Lymphocytes (CBC) 1.7 K/uL (0.7-4.9); Hematocrit 42.2 % (39.6-49.0); Lymphocytes % 9.5 % (15.3-44.8); MCV 91.9 fL (80-100); MPV 7.7 fL (7.6-11.3); Platelets 175 thou/uL (152-406)
[2023-06-28] MEDS: PNEUMOCOCCAL VACCINE 0.5 ML IMVAC ONE (08:00)
[2023-06-28] MEDS: NA CHLORIDE 0.9% 1,000 ML IV SCH (08:03)
[2023-06-28 08:08] LABS: Potassium 3.9 mEq/L (3.5-5.1)
[2023-06-28] MEDS: ASPIRIN EC 81 MG TAB PO SCH (09:00)
[2023-06-28] MEDS: ENOXAPARIN 40 MG/0.4 ML SQ SCH (09:00)
[2023-06-28 09:36] LABS: Blood Morphology Comment NOT SEEN (NOT SEEN); Platelet Estimate ADEQ
--- NOTE | 2023-06-28 10:46 | RAD REPORT ---
EXAM DESCRIPTION: NM - Hepatobiliary System Imagin - 06/28/2023 10:27 am CLINICAL HISTORY: gb disease COMPARISON: Stone Protocol dated 06/27/2023; Abdomen Exam Limited dated 06/27/2023 TECHNIQUE: The patient was administered 5.7 mCi Tc99m Choletec. Imaging of the right upper quadrant was performed initially for up to 60 minutes. FINDINGS: Normal hepatic uptake and excretion with appropriate clearance of background blood pool ac tivity. The common bile duct is dilated. The intrahepatic bile ducts are seen at 7 minutes. There is some reflux of tracer into the stomach. Normal biliary to bowel transit. The gallbladder was not visualized. IMPRESSION: Nonvisualized gallbladder which would indicate cystic duct obstruction. Recommend surgic al consultation.
--- NOTE | 2023-06-28 12:27 | CON ---
Date of Consultation: 06/27/2023 Reason For Consultation: Possible cholecystitis. History Of Present Illness: The patient is a 68-year-old gentleman who presented to the ER with weak ness. He denied any significant abdominal pain, nausea, vomiting, bloating, belching, or heartburn. He denied any chest pain. No neck pain. No arm pain. No diarrhea. No constipation. No blood in his stool. No dysuria, hematuria. No sore throat, runny nose, cough, headaches, dizziness. No feve r or chills. Upon evaluation in the ER, the patient was found to have a very high glucose level and had a workup done in the ER, which consisted of a CT of the abdomen and pelvis as well as an ultrasou nd which showed sludge in the gallbladder and slight thickening of the gallbladder wall. The patient earlier today had a HIDA scan, which showed nonvisualization of the gallbladder. Therefore, I was c onsulted. The patient is awake, alert. Denies any pain at this time. His blood sugar is slightly i mproved since admission. Review of Systems: Otherwise unremarkable. Past Medical History: Diabetes type 2 and hypertension. Past Surgical History: CABG in 2000. Allergies: NO ALLERGIES. Social History: The patient does not smoke or drink alcohol. Family History: Noncontributory. Physical Examination: Vital Signs: Stable, he is currently afebrile. He is a little tachycardic, however, in the one teen s. General: He is awake, alert, oriented x3. Head and Neck: Cranial nerves 2 through 12 are grossly within normal limits. No neck masses. No JV D. Throat clear. Neck supple. There is no evidence of icterus. Chest: Clear. Heart: S1, S2. Abdomen: Soft, nondistended, nontender. Positive bowel sounds. Extremities: Neurovascularly intact. Neuro: Nonfocal. Diagnostic Data: Significant for white count that is 18,000 this morning, it was 13,800 yesterday. There is left shift today and there are a couple of bands. INR is 1.17. Chemistry significant for b lood sugar of 211 today, it was 436 on admission. The patient's troponin 1 level was 18.3 yesterday and today is 118.5. His LFTs are within normal limits. His lipase is slightly elevated at 92. His abdominal ultrasound, CT, and HIDA scan were reviewed with the radiologist. The findings are as per HPI. Assessment: A 68-year-old gentleman with leukocytosis, abnormal HIDA scan suggestive of acute cholec ystitis with sludge in the gallbladder and weakness. Recommendation: I discussed the case with Dr. Cummings. We will await cardiac clearance and as the pat ient has cholecystitis and findings radiographically were of acute cholecystitis, the patient will ne ed his gallbladder removed. The risks, benefits, and alternatives to surgery will be explained to th e patient and this afternoon and we will schedule the surgery after we obtain a cardiac clearanc e. I will follow this patient while in the hospital. /MODJeevan Voice ID: [id number] Report ID: [id number]
--- NOTE | 2023-06-28 13:21 | EKG ---
Test Date: 2023-06-28 Test Time: 08:22:22 Pharmacovigilance Specialist: LINDA MEASUREMENT RESULTS: Intervals: Rate: 85 AL: 224 QRSD: 92 QT: 362 QTc: 430 [place]: P: 64 AL: 224 QRS: -23 T: 10 INTERPRETIVE STATEMENTS: Sinus rhythm with 1st degree AV block Otherwise normal ECG Compared to ECG 06/27/2023 17:01:32 First degree AV block now present Sinus tachycardia no longer present Ventricular premature complex(es) no longer present Electronically Signed On 06-28-23 13:20:47 [employer]EWARD[employer] by Bryce Hennessy
--- NOTE | 2023-06-28 13:23 | EKG ---
Test Date: 2023-06-27 Test Time: 17:01:32 Meatman: ALP MEASUREMENT RESULTS: Intervals: Rate: 116 [place]: 192 QRSD: 92 QT: 300 QTc: 417 [place]: P: 75 [place]: 192 QRS: 5 T: 77 INTERPRETIVE STATEMENTS: Sinus tachycardia with occasional premature ventricular complexes Otherwise normal ECG Compared to ECG 06/08/2020 01:13:44 Ventricular premature complex(es) now present Electronically Signed On 06-28-23 13:21:39 DIAMOND SANDER by Bryce Hennessy
--- NOTE | 2023-06-28 15:42 | PN ---
The patient was seen by Cardiology and they recommended a stress test in the morning. Should that be negative, he will be cleared for surgery. Therefore, the risks, benefits, and alternatives were exp lained to the patient. He understood and agreed to the procedure. JOHNY/RUSSELL Voice ID: [id number] Report ID: [id number]
--- NOTE | 2023-06-28 16:57 | CON ---
Date of Consultation: 06/28/2023 Reason For Consultation: Elevated troponin and preop cardiac risk assessment. History Of Present Illness: 68-year-old male presented to the emergency room due to generalized weak ness, fatigue. Denies chest pain, abdominal pain, nausea, vomiting, or diarrhea. Denies any complai nts. Workup revealed high white count and HIDA scan showed significant decrease in the gallbladder e jection fraction suggestive of cholecystitis, even though patient has no symptoms. Past Medical History: Diabetes, hypertension, and coronary artery disease. Past Surgical History: CABG. Medications: Refer to reconciliation sheet for detailed list. Allergies: NO KNOWN DRUG ALLERGIES. Family History: No premature coronary artery disease or cancer. Social History: He does not smoke or drink. Does not use any drugs. Review of Systems: All systems reviewed and they were negative except as mentioned in the HPI. Physical Examination: Vital Signs: Reviewed. Head and Neck: Pupils are equal, reactive to light. Intact eye movements. No JVD. No cervical lym phadenopathy. Neck is supple. Thyroid is not enlarged. Lungs: Clear to auscultation bilaterally. No rhonchi, wheezing, or crackles. No accessory muscle u se. Heart: Regular rate and rhythm. No extra sounds. Abdomen: Soft, nontender. Bowel sounds positive. No organomegaly. No masses or hernia. No rigidi ty or rebound. Extremities: No edema, clubbing, or cyanosis. Intact pulses. Skin: No rash or nodule. Neurologic: Alert, awake, oriented x3. No acute focal deficits appreciated. Lymph Nodes: No cervical or axillary lymphadenopathy. Investigations: Troponin is 18, then 118, third set is pending. BUN 12, creatinine 1.1. White bloo d cell count is 18,000 and hemoglobin 14.3. Assessment And Recommendations: 1.Elevated troponin. Patient is asymptomatic and I am unable to get a good history from him. Recom mend Lexiscan nuclear stress test tomorrow and an echocardiogram and plan accordingly. 2.Preop cardiac risk assessment with positive troponin. I recommend Lexiscan stress test as I am no t able to get a good history from him and an echocardiogram prior to proceeding with surgery. Thank you for the consult. /RUSSELL Voice ID: [id number] Report ID: [id number]
--- NOTE | 2023-06-28 21:14 | P.HP ---
Certification for Inpatient Patient admitted to: Inpatient With expected LOS: >2 Midnights Practitioner: I am a practitioner with admitting privileges, knowledge of patient current condition, hospital course, and medical plan of care. Services: Services provided to patient in accordance with Admission requirements found in Title 42 Section 412.3 of the Code of Federal Regulations Patient History Date of Service: 06/28/23 Reason for admission: weakness History of Present Illness: Don comes to ER with only one complain of weakness. When asked if he had fever, he said yes. He has no pain or dyspnea. Allergies No Known Allergies Allergy (Verified 10/26/19 23:03) Home medications list reviewed: Yes Home Medications: Metoprolol Tartrate [Lopressor*] 50 mg PO BID 10/27/19 Latanoprost Ophth [Xalatan 0.005%*] 2.5 ml EACH EYE BEDTIME 06/08/20 Allopurinol 300 mg PO DAILY 06/27/23 Aspirin 81 mg PO DAILY 06/27/23 Atorvastatin Calcium [Lipitor] 40 mg PO BEDTIME 06/27/23 Brimonidine Tartrate [Alphagan P] 1 drop EACH EYE TID 06/27/23 Dorzolamide HCl/Timolol Maleat [Dorzolamide-Timolol Eye Drops] 1 drop EACH EYE BID 06/27/23 Finasteride [Proscar] 5 mg PO DAILY 06/27/23 Losartan Potassium [Cozaar] 25 mg PO DAILY 06/27/23 Tadalafil [Alyq] 20 mg PO PRN 06/27/23 Tamsulosin [Flomax] 0.8 mg PO DAILY 06/27/23 Tirzepatide [Mounjaro] 7.5 mg SQ UD 06/27/23 - Past Medical/Surgical History Has patient received pneumonia vaccine in the past: No Diabetic: Yes -: Hypertension -: Type 2 diabetes -: Coronary artery bypass grafting - Social History Smoking Status: Never smoker Alcohol use: No CD- Drugs: No Caffeine use: No Place of Residence: Home Review of Systems 10-point ROS is otherwise unremarkable General: Weakness Physical Examination - Vital Signs Temperature: 100.0 F Blood Pressure: 144/67 Pulse: 91 Respirations: 14 Pulse Ox (%): 96 - Physical Exam General: Oriented x3, Mild distress HEENT: Atraumatic, PERRLA, Mucous membr. moist/pink, EOMI, Sclerae nonicteric Neck: Supple, 2+ carotid pulse no bruit, No LAD, Without JVD or thyroid abnormality Respiratory: Clear to auscultation bilaterally, Normal air movement Cardiovascular: Regular rate/rhythm, Normal S1 S2 Gastrointestinal: Normal bowel sounds, No tenderness Musculoskeletal: No tenderness Integumentary: No rashes Neurological: Normal gait, Normal speech, Normal strength at 5/5 x4 extr, Normal tone, Normal affect Lymphatics: No axilla or inguinal lymphadenopathy Assessment and Plan - Problems (Diagnosis) (1) Cholecystitis Current Visit: Yes Status: Acute Plan: HE HAS NO PAIN AND TENDERNESS BUT SONOGRAM AND HIDA SCAN ARE POSITIVE. ONCE HE HAS ST TEST DONE HE WILL GET CHOLECYSTECTOMY. WBC IS HIGH AND SO IT LOOKS LIKE HE MAY HAVE ACALCULUOUS CHOLECYSTITIS. IV ABX (2) Coronary artery disease due to type 2 diabetes mellitus Current Visit: Yes Status: Chronic Plan: CABG 2001 ST TEST IN AM. (3) Non-STEMI (non-ST elevated myocardial infarction) Current Visit: No Status: Acute Plan: UNCLEAR ABOUT THIS TROP IS HIGH WITH MANY INFECTIOUS CONDITIONS. - Advance Directives Does patient have a Living Will: No Does patient have a Durable POA for Healthcare: No
[2023-06-28 23:54] VITALS: BMI 26.7
[2023-06-29] MEDS ORDERED: REGADENOSON 0.4 MG/5 ML SYR IV ONE (09:13)
--- NOTE | 2023-06-29 10:26 | RAD REPORT ---
EXAM DESCRIPTION: NM - Rest Stress Cardiac Imaging - 06/29/2023 9:55 am CLINICAL HISTORY: pre op caridac clearance, elevated troponin Chest pain. COMPARISON: No comparisons TECHNIQUE: The patient was administered approximately 10mCi of Tc 99m Sestamibi prior to resting SPE CT imaging of the heart. The patient was then administered approximately 30 mCi of Tc 99m Sestamibi f ollowing exercise or pharmacologic stress. Multiplanar SPECT images were reviewed. FINDINGS: There is moderate sized area of mild stress-induced ischemia involving the LV apex extendi ng along anterolateral wall. No fixed defect is seen to suggest hibernating myocardium or scarred anna cardium. The end diastolic volume is 100 ml, the end systolic volume is 54 ml, and the ejection fraction is 46 %. IMPRESSION: Moderate sized area of mild stress-induced ischemia involving the LV apex extending zabrina g the anterolateral wall.
--- NOTE | 2023-06-29 13:38 | TREADPHA ---
DX: ELEVATED TROPONIN Date of Study: 06/29/23 Ht: 5' 9 " Wt: 181 lb 1.6 oz Consulting Physician: BRITTON MEDICATIONS: TYLENOL, ASPIRIN, CATAPRES, DESTROSE, LOVENOX, GLUCAGEN, SEMGLEE, NOVOLINE-R, LOPRESSOR, ZOFRAN. HISTORY: 68-YEAR-OLD MALE WITH COMPLAINTS OF WEAKNESS. HISTORY OF HYPERTENSION, DIABETES MELLITUS, HLD. NON-SMOKER, OCCASIONAL DRINK PHYSICIAL EXAMINATION: RESTING B.P.: 130/60 RESTING H.R.: 86 RESTING EKG: NORMAL SINUS RHYTHM PROTOCOL: LEXISCAN EXERCISE TIME: 3:30 B.P. AT PEAK STRESS: 134/60 IMPRESSION: LEXISCAN INJECTED FOLLOWED BY CARDIOLITE PER PROTOCOL. SEE NUCLEAR MEDICINE REPORT. NO SUPRA VENTRICULAR TACHYCARDIA, NO VENTRICULAR TACHYCARDIA. BIGEMINY WITH PREMATURE VENTRICULAR COMPLEXES THROUGHOUT. PATIENT REPORTS NO CHEST PAIN. NORMAL EKG CHANGES WITH LEXISCAN.
--- NOTE | 2023-06-29 13:40 | ECHO ---
HEIGHT: 5 ft 9 in WEIGHT: 181 lb 1.6 oz DATE OF STUDY: 06/29/[address]: Bryce Hennessy 2-DIMENSIONAL: YES M.MODE: YES DOPPLER: YES COLOR FLOW: YES TDS: NO PORTABLE: YES DEFINITY: NO BUBBLE STUDY: NO DIAGNOSIS: ELEVATED TROPONIN CARDIAC HISTORY: CATHERIZATION: SURGERY: PROSTHETIC VALVE: PACEMAKER: MEASUREMENTS (cm) DIASTOLIC (NORMALS) SYSTOLIC (NORMALS) IVSd 1.0 (0.6-1.2) LA Diam 4.6 (1.9-4.0) LVEF 63% LVIDd 4.8 (3.5-5.7) LVIDs 3.1 (2.0-3.5) %FS 34% LVPWd 1.0 (0.6-1.2) Ao Diam 2.4 (2.0-3.7) 2 DIMENSIONAL ASSESSMENT: RIGHT ATRIUM: NORMAL LEFT ATRIUM: ENLARGED RIGHT VENTRICLE: NORMAL LEFT VENTRICLE: NORMAL TRICUSPID VALVE: NORMAL MITRAL VALVE: MILD MITRAL REGURGITATION PULMONIC VALVE: MILD PULMONIC REGURGITATION AORTIC VALVE: NORMAL PERICARDIAL EFFUSION: NONE AORTIC ROOT: NORMAL LEFT VENTRICULAR WALL MOTION: NORMAL. DOPPLER/COLOR FLOW: SEE BELOW. COMMENTS: 1. NORMAL LEFT VENTRICULAR EJECTION FRACTION 60-65% 2. NORMAL WALL MOTION. 3. MILD MITRAL REGURGITATION TECHNOLOGIST: GUILLERMO ADHIKARI
--- NOTE | 2023-06-29 13:58 | P.PN ---
Subjective Date of Service: 06/29/23 Chief Complaint: weakness Subjective: Improving DON HAS NO COMPLAINTS. NO CHEST PAIN, NO ABDOMEN PAIN, NO NAUSEA. Review of Systems 10-point ROS is otherwise unremarkable General: Weakness Physical Examination - Vital Signs Temperature: 97.8 F Blood Pressure: 178/110 Pulse: 91 Respirations: 16 Pulse Ox (%): 96 - Physical Exam General: Alert, In no apparent distress HEENT: Atraumatic, PERRLA, EOMI Neck: Supple, JVD not distended Respiratory: Clear to auscultation bilaterally, Normal air movement Cardiovascular: Regular rate/rhythm, Normal S1 S2 Gastrointestinal: Normal bowel sounds, No tenderness Musculoskeletal: No tenderness Integumentary: No rashes Neurological: Normal speech, Normal tone, Normal affect Lymphatics: No axilla or inguinal lymphadenopathy - Studies Medications List Reviewed: Yes Assessment And Plan - Current Problems (Diagnosis) (1) Cholecystitis Current Visit: Yes Status: Acute Plan: HE HAS NO PAIN AND TENDERNESS BUT SONOGRAM AND HIDA SCAN ARE POSITIVE. ONCE HE HAS ST TEST DONE HE WILL GET CHOLECYSTECTOMY. WBC IS HIGH AND SO IT LOOKS LIKE HE MAY HAVE ACALCULUOUS CHOLECYSTITIS. IV ABX HIS RISK IS MODERATE DR. JIMENEZ HAS DECIDED TO WAIT FOR ANTIBIOTICS IF THEY WORK, IT IS OKAY. IF NOT WE WILL HAVE TO DO SURGERY. (2) Coronary artery disease due to type 2 diabetes mellitus Current Visit: Yes Status: Chronic Plan: CABG 2000 ST TEST IN AM. (3) Non-STEMI (non-ST elevated myocardial infarction) Current Visit: No Status: Acute Plan: UNCLEAR ABOUT THIS TROP IS HIGH WITH MANY INFECTIOUS CONDITIONS.
[2023-06-29] MEDS: INSULIN GLARGINE 100 UNIT/ML SQ SCH (14:12)
[2023-06-29] MEDS: LOSARTAN POTASSIUM 50 MG TABLET PO SCH (14:50)
--- NOTE | 2023-06-29 18:38 | PN ---
Date of Progress Note: 06/29/2023 Subjective: Patient is awake, alert. No complaint. Objective: Vital Signs: Stable, but blood pressure is little elevated and heart rate is 91. He is afebrile. Heart: There was no supraventricular tachycardia. Bigeminy with premature ventricle complexes throu ghout. Patient did not report any chest pain during the test. Abdomen: Soft, nondistended, nontender. Positive bowel sounds. Radiographic Reading: Moderate size area of mild stress-induced ischemia involving the left ventricl e apex extending along the anterolateral wall. No fixed defect is seen to suggest hibernating myocar dium or scarred myocardium. Ejection fraction was 46%. Assessment: Acute cholecystitis in a patient with cardiac disease. Recommendations: Discussed the case in detail with Dr. Cummings. Dr. Hennessy evaluated the patient as w ell and it is felt that the patient would be a high risk for surgery. However, he can undergo surger y if his clinical picture does not improve with IV antibiotics and if he fails medical management as patient would need a cardiac cath and if a stent is placed, he could not get surgery for approximatel y 6 months. So the plan of care is to monitor this patient very closely today and tomorrow and see h ow he does with diet and IV antibiotics. Should he not improve, then we will have to intervene with the surgical intervention. Should he improve, then we can hold off on the surgery until the patient has a cardiac cath and we will await that recommendation. /MODL Voice ID: [id number] Report ID: [id number]
--- NOTE | 2023-06-29 19:32 | PN ---
Date of Progress Note: 06/29/2023 Subjective: Seen at bedside, still asymptomatic. Review of Systems: No chest pain, shortness of breath, or orthopnea. No nausea, vomiting, diarrhea. All other systems reviewed are negative. Objective: Vital Signs: Reviewed. Head and Neck: Pupils are equal, reactive to light. Intact eye movements. No JVD. No cervical lym phadenopathy. Neck: Supple. Thyroid is not enlarged. Lungs: Clear to auscultation bilaterally. No rhonchi, rales, or crackles. No accessory muscle use. Heart: Regular rate and rhythm. No extra sounds. Abdomen: Soft, nontender. Bowel sounds positive. No organomegaly. No masses or hernia. No rigidi ty or rebound. Extremities: No clubbing, cyanosis. Intact pulses. Skin: No rashes. Neurologic: Alert, awake, oriented x3. No acute focal deficits appreciated. Investigations: Labs were reviewed. Troponin is trending down and creatinine is 1.1. Assessment/recommendation: 1.Cardiac preop risk assessment. The patient is asymptomatic. Stress test showed mild ischemia on anterior wall. At this point, I discussed the case with Dr. Cummings. The suspicion is high for acute cholecystitis. I recommend to proceed and we will plan for coronary angiogram after the surgery as h e is totally asymptomatic and active without any symptoms. 2.Elevated troponin. This is probably demand as there is an acute cholecystitis. Echo revealed eje ction fraction is normal. I will monitor the patient clinically and plan for coronary angiogram as an outpatient. SR/MODL Voice ID: [id number] Report ID: [id number]
[2023-06-29] MEDS: DORZOLAMIDE OPTH SCH (21:00)
[2023-06-29] MEDS: TIMOLOL OPTH SCH (21:00)
[2023-06-29] MEDS: LATANOPROST 0.005% 2.5ML OPTH OPTH SCH (21:00)
[2023-06-29] MEDS: BRIMONIDINE TARTRATE OPTH SCH (21:00)
[2023-06-29] MEDS: ATORVASTATIN 40 MG TAB PO SCH (21:08)
[2023-06-29] MEDS: METOPROLOL TAR 50 MG TAB PO SCH (21:08)
[2023-06-30 03:17] LABS: Absolute Lymphocytes (CBC) 1.7 K/uL (0.7-4.9); Hematocrit 34.8 % (39.6-49.0); Lymphocytes % 12.1 % (15.3-44.8); MCV 91.2 fL (80-100); MPV 8.1 fL (7.6-11.3); Platelets 177 thou/uL (152-406); RBC Red Blood Cell Count 3.81 M/uL (4.33-5.43)
[2023-06-30 03:33] LABS: Albumin 1.9 g/dL (3.4-5.0); Bilirubin Direct 0.5 mg/dL (0-0.2); Bilirubin Indirect, Calculated 0.6 mg/dL (0.2-0.8); Bilirubin Total 1.1 mg/dL (0.2-1.0); Protein, Total 6.1 g/dL (6.4-8.2)
[2023-06-30] MEDS: KCL 20 MEQ/100 mL IVPB 20 MEQ/100 ML BAG IV SCH (07:22)
[2023-06-30] MEDS: TAMSULOSIN 0.4 MG SR CAP PO SCH (10:09)
[2023-06-30] MEDS: LOSARTAN POTASSIUM 50 MG TABLET PO SCH (10:09)
--- NOTE | 2023-06-30 10:51 | PN ---
Date of Progress Note: 06/30/2023 Subjective: The patient is awake, alert, tolerating diet. No pain. No nausea. No vomiting. Objective: Vital Signs: Stable, afebrile. Abdomen: Soft, nondistended, nontender. Positive bowel sounds. Laboratory Data: Reviewed. White count is down to 14,000. LFTs are within normal limits. Assessment: Asymptomatic cholecystitis at this time with significant cardiac disease. Recommendation: Plan of care discussed with Dr. Cummings. We will continue him on IV antibiotics. Con ankita to closely monitor the patient as to the clinical response to IV antibiotics should he improve. He may benefit from a cardiac intervention at this point. Should he not, he may still require surg ical intervention. Plan of care of this patient is in Flex, and we will monitor and adjust our recom mendation based on the patient's clinical response. Currently, the patient is clinically stable. /MODL Voice ID: [id number] Report ID: [id number]
--- NOTE | 2023-06-30 15:47 | P.PN ---
Subjective Date of Service: 06/30/23 Chief Complaint: NO COMPLAINTS MISSY HAS NO COMPLAINTS. NO CHEST PAIN, NO ABDOMEN PAIN, NO NAUSEA. DON HAS NO SYMPTOMS HE FEELS WELL HE IS NOT A COMPLAINER. Review of Systems 10-point ROS is otherwise unremarkable Physical Examination - Vital Signs Temperature: 97.4 F Blood Pressure: 118/70 Pulse: 71 Respirations: 18 Pulse Ox (%): 98 - Physical Exam General: Alert, In no apparent distress HEENT: Atraumatic, PERRLA, EOMI Neck: Supple, JVD not distended Respiratory: Clear to auscultation bilaterally, Normal air movement Cardiovascular: Regular rate/rhythm, Normal S1 S2 Gastrointestinal: Normal bowel sounds, No tenderness Musculoskeletal: No tenderness Integumentary: No rashes Neurological: Normal speech, Normal tone, Normal affect Lymphatics: No axilla or inguinal lymphadenopathy - Studies Medications List Reviewed: Yes Assessment And Plan - Current Problems (Diagnosis) (1) Cholecystitis Current Visit: Yes Status: Acute Plan: HE HAS NO PAIN AND TENDERNESS BUT SONOGRAM AND HIDA SCAN ARE POSITIVE. ONCE HE HAS ST TEST DONE HE WILL GET CHOLECYSTECTOMY. WBC IS HIGH AND SO IT LOOKS LIKE HE MAY HAVE ACALCULUOUS CHOLECYSTITIS. IV ABX HIS RISK IS MODERATE DR. JIMENEZ HAS DECIDED TO WAIT FOR ANTIBIOTICS IF THEY WORK, IT IS OKAY. IF NOT WE WILL HAVE TO DO SURGERY. HIS BILIRUBIN IS MILD HIGH WBC IS DOWN PLAN IS TO DO CATH, MANAGE HEART CONTINUE ABX LATER WHEN ABLE TO GET OFF PLAVIX, DO THE GB SURGERY. FAMILY AND PATIENT UNDERSAND THIS WELL. (2) Coronary artery disease due to type 2 diabetes mellitus Current Visit: Yes Status: Chronic Plan: CABG 2001 ST TEST IN AM. (3) Non-STEMI (non-ST elevated myocardial infarction) Current Visit: No Status: Acute Plan: UNCLEAR ABOUT THIS TROP IS HIGH WITH MANY INFECTIOUS CONDITIONS.
[2023-06-30] MEDS: POTASSIUM CL SA 10 MEQ TAB PO ONE (17:58)
[2023-07-01 03:31] LABS: Absolute Lymphocytes (CBC) 1.7 K/uL (0.7-4.9); Hematocrit 34.2 % (39.6-49.0); Lymphocytes % 16.2 % (15.3-44.8); MCV 90.8 fL (80-100); MPV 7.8 fL (7.6-11.3); Platelets 222 thou/uL (152-406); RBC Red Blood Cell Count 3.77 M/uL (4.33-5.43)
[2023-07-01 03:41] LABS: Magnesium 1.8 mg/dL (1.6-2.4); Potassium 3.4 mEq/L (3.5-5.1)
[2023-07-01] MEDS: POTASSIUM 25 MEQ EFFERV TAB PO ONE (09:28)
[2023-07-01] MEDS: MAGNESIUM SULFATE 1 gm IVPB 1 GM/100 ML BAG IV ONE (09:28)
--- NOTE | 2023-07-01 10:27 | PN ---
Date of Progress Note: 07/01/2023 Subjective: The patient is awake, alert. No complaint. Objective: Vital Signs: Stable, afebrile. General: The patient is tolerating diet. Abdomen: Benign, soft, nondistended, nontender. Positive bowel sounds. Laboratory Data: White count is normal. There is no left shift. Assessment: Acute and chronic cholecystitis, improving on antibiotics and coronary artery disease. Recommendations: Continue antibiotics. Discussed the case with Dr. Cummings. The patient will be eval uated by Cardiology to see if he can get a cardiac cath done while in the hospital and we will delay his cholecystectomy until his cardiac issues are stabilized. /MODL Voice ID: [id number] Report ID: [id number]
--- NOTE | 2023-07-01 10:37 | P.PN ---
Subjective Date of Service: 07/01/23 Chief Complaint: NO COMPLAINTS Subjective: Improving MISSY HAS NO COMPLAINTS. NO CHEST PAIN, NO ABDOMEN PAIN, NO NAUSEA. MISSY HAS NO SYMPTOMS HE FEELS WELL HE IS NOT A COMPLAINER. FEELS WELL, NO COMPLAINTS Review of Systems 10-point ROS is otherwise unremarkable Physical Examination - Vital Signs Temperature: 97.8 F Blood Pressure: 159/74 Pulse: 73 Respirations: 15 Pulse Ox (%): 99 - Physical Exam General: Alert, In no apparent distress HEENT: Atraumatic, PERRLA, EOMI Neck: Supple, JVD not distended Respiratory: Clear to auscultation bilaterally, Normal air movement Cardiovascular: Regular rate/rhythm, Normal S1 S2 Gastrointestinal: Normal bowel sounds, No tenderness Musculoskeletal: No tenderness Integumentary: No rashes Neurological: Normal speech, Normal tone, Normal affect Lymphatics: No axilla or inguinal lymphadenopathy - Studies Medications List Reviewed: Yes Assessment And Plan - Current Problems (Diagnosis) (1) Cholecystitis Current Visit: Yes Status: Acute Plan: HE HAS NO PAIN AND TENDERNESS BUT SONOGRAM AND HIDA SCAN ARE POSITIVE. ONCE HE HAS ST TEST DONE HE WILL GET CHOLECYSTECTOMY. WBC IS HIGH AND SO IT LOOKS LIKE HE MAY HAVE ACALCULUOUS CHOLECYSTITIS. IV ABX HIS RISK IS MODERATE DR. JIMENEZ HAS DECIDED TO WAIT FOR ANTIBIOTICS IF THEY WORK, IT IS OKAY. IF NOT WE WILL HAVE TO DO SURGERY. HIS BILIRUBIN IS MILD HIGH WBC IS DOWN PLAN IS TO DO CATH, MANAGE HEART CONTINUE ABX LATER WHEN ABLE TO GET OFF PLAVIX, DO THE GB SURGERY. FAMILY AND PATIENT UNDERSAND THIS WELL. (2) Coronary artery disease due to type 2 diabetes mellitus Current Visit: Yes Status: Chronic Plan: CABG 2001 ST TEST IN AM. CATH IN AM. (3) Non-STEMI (non-ST elevated myocardial infarction) Current Visit: No Status: Acute Plan: UNCLEAR ABOUT THIS TROP IS HIGH WITH MANY INFECTIOUS CONDITIONS.
[2023-07-02 06:47] LABS: Potassium 3.4 mEq/L (3.5-5.1)
[2023-07-02] MEDS ORDERED: LIDOCAINE 1% 20 ML MDV ONE (07:53)
[2023-07-02] MEDS ORDERED: HEPA 1000U/500MLS 2,000 UNIT/1,000 ML BAG IV ONE (07:53)
[2023-07-02] MEDS: POTASSIUM CL SA 10 MEQ TAB PO ONE (08:11)
--- NOTE | 2023-07-02 09:53 | PN ---
Date of Progress Note: 07/02/2023 Subjective: The patient with no complaint. Objective: Vital Signs: Stable, afebrile. Abdomen: Benign. Assessment: Cholecystitis, controlled medically and coronary artery disease. Recommendations: The patient is scheduled for a cardiac cath today. We will see the results of that. There is no need for any surgical intervention at this time. The patient will follow up with me as an outpatient. Once his cardiac status is cleared and stabilized, we can do an elective cholecystectomy in the near future. JOHNY/RUSSELL Voice ID: [id number] Report ID: [id number]
[2023-07-02] MEDS ORDERED: MIDAZOLAM HCL 2 MG/2 ML INJ ONE (12:26)
[2023-07-02] MEDS ORDERED: FENTANYL CITR 100 MCG/2 ML ONE (12:26)
[2023-07-02] MEDS ORDERED: HEPARIN 10,000 UNIT/10 ML VIAL IV ONE (12:27)
[2023-07-02] MEDS ORDERED: ATROPINE SULF 1 MG/10 ML SYR IV ONE (12:27)
[2023-07-02] MEDS ORDERED: CLOPIDOGREL 75 MG TABLET ONE (12:27)
[2023-07-02] MEDS ORDERED: TICAGRELOR 90 MG TABLET PO ONE (12:27)
[2023-07-02] MEDS ORDERED: ASPIRIN 325 MG TAB ONE (12:28)
[2023-07-02] MEDS ORDERED: HYDRALAZINE HCL 20 MG/ML VIAL ONE (13:20)
[2023-07-02] MEDS ORDERED: FAMOTIDINE 20 MG TAB ONE (13:53)
--- NOTE | 2023-07-02 15:06 | EKG ---
Test Date: 2023-06-29 Test Time: 22:49:11 [employer] Coach: SREG MEASUREMENT RESULTS: Intervals: Rate: 60 TX: 190 QRSD: 92 QT: 380 QTc: 380 [place]: P: 68 TX: 190 QRS: -17 T: -45 INTERPRETIVE STATEMENTS: Sinus rhythm with premature supraventricular complexes in a pattern of bigeminy Otherwise normal ECG Compared to ECG 06/28/2023 08:22:22 Atrial premature complex(es) now present First degree AV block no longer present Electronically Signed On 07-02-23 15:01:18 SUPERMARKET MANAGER by Bryce Hennessy
--- NOTE | 2023-07-02 17:23 | PN ---
Date of Progress Note: 07/02/2023 Subjective: Seen at bedside, doing clinically well. No chest pain. Review of Systems: No chest pain, shortness of breath, orthopnea, cough. No nausea, vomiting, diarrhea. All other syst ems reviewed are negative. Physical Examination: Vital Signs: Reviewed. Head and Neck: Pupils are equal, reactive to light. Intact eye movements. No JVD. No cervical lym phadenopathy. Neck: Supple. Thyroid is not enlarged. Lungs: Clear to auscultation bilaterally. No rhonchi, rales, or crackles. No accessory muscle use. Heart: Regular rate and rhythm. No extra sounds. Abdomen: Soft, nontender. Bowel sounds positive. No organomegaly. No masses or hernia. No rigidi ty or rebound. Extremities: No edema, clubbing, cyanosis. Intact pulses. Skin: No rash. Neurologic: Alert, awake, oriented x3. No acute focal deficits appreciated. Lymph nodes: No cervical lymphadenopathy. Investigations: Labs were reviewed. Cardiac enzymes are negative. BUN 8, creatinine 0.91. Assessment/recommendation: 1.Elevated troponin with borderline elevated white blood cell count and abnormal stress test. Plan for coronary angiogram today. This could be [id number] myocardial infarction. Continue aspiri n. Further recommendation after heart catheterization. 2.Hypertension. Blood pressure is controlled. Continue current home medication. 3.Dyslipidemia. Continue statin. SR/MODL Voice ID: [id number] Report ID: [id number]
[2023-07-02] MEDS: NA CHLORIDE 0.9% 1,000 ML IV SCH (20:55)
--- NOTE | 2023-07-02 20:58 | P.PN ---
Subjective Date of Service: 07/02/23 Chief Complaint: NO COMPLAINTS Subjective: Improving MISSY HAS NO COMPLAINTS. NO CHEST PAIN, NO ABDOMEN PAIN, NO NAUSEA. MISSY HAS NO SYMPTOMS HE FEELS WELL HE IS NOT A COMPLAINER. FEELS WELL, NO COMPLAINTS MISSY HAS NO SS DR. JARQUIN DID CATH TODAY. WE DISCUSSED THE PLAN. Review of Systems 10-point ROS is otherwise unremarkable General: Weakness Physical Examination - Vital Signs Temperature: 97.3 F Blood Pressure: 143/74 Pulse: 75 Respirations: 17 Pulse Ox (%): 99 - Physical Exam General: In no apparent distress HEENT: Atraumatic, PERRLA, EOMI Neck: Supple, JVD not distended Respiratory: Clear to auscultation bilaterally, Normal air movement Cardiovascular: Regular rate/rhythm, Normal S1 S2 Gastrointestinal: Normal bowel sounds, No tenderness Musculoskeletal: No tenderness Integumentary: No rashes Neurological: Normal speech, Normal tone, Normal affect Lymphatics: No axilla or inguinal lymphadenopathy - Studies Microbiology Data (last 24 hrs): 06/27/23 17:11 Blood - Blood Aerobic Blood Culture - Final No growth in 5 days. 06/27/23 17:11 Blood - Blood Anaerobic Blood Culture - Final No growth in 5 days. 06/27/23 16:30 Blood - Blood Aerobic Blood Culture - Final No growth in 5 days. 06/27/23 16:30 Blood - Blood Anaerobic Blood Culture - Final No growth in 5 days. Medications List Reviewed: Yes Assessment And Plan - Current Problems (Diagnosis) (1) Cholecystitis Current Visit: Yes Status: Acute Plan: HE HAS NO PAIN AND TENDERNESS BUT SONOGRAM AND HIDA SCAN ARE POSITIVE. ONCE HE HAS ST TEST DONE HE WILL GET CHOLECYSTECTOMY. WBC IS HIGH AND SO IT LOOKS LIKE HE MAY HAVE ACALCULUOUS CHOLECYSTITIS. IV ABX HIS RISK IS MODERATE DR. JIMENEZ HAS DECIDED TO WAIT FOR ANTIBIOTICS IF THEY WORK, IT IS OKAY. IF NOT WE WILL HAVE TO DO SURGERY. HIS BILIRUBIN IS MILD HIGH WBC IS DOWN PLAN IS TO DO CATH, MANAGE HEART CONTINUE ABX LATER WHEN ABLE TO GET OFF PLAVIX, DO THE GB SURGERY. FAMILY AND PATIENT UNDERSAND THIS WELL. (2) Coronary artery disease due to type 2 diabetes mellitus Current Visit: Yes Status: Chronic Plan: CABG 2000 ST TEST IN AM. CATH IN AM. CATH SHOWED SEVERE DIFFUSE RCA BLOCKAGE. DIAGNOAL BLOCKAGE OLD CABG STABLE. PLAN IS TO CONTINUE PLAVIX FOR TWO MONTHS. DO GB REMOVAL AFTER TWO MONTHS TO GIVE HIM BEST CHANCE OF SURGERY WITHOUT COMPLICATIONS. UNDERSTANDS. (3) Non-STEMI (non-ST elevated myocardial infarction) Current Visit: No Status: Acute Plan: UNCLEAR ABOUT THIS TROP IS HIGH WITH MANY INFECTIOUS CONDITIONS.
--- NOTE | 2023-07-03 00:06 | OP ---
Date of Procedure: 07/02/2023 Surgeon: BLANKA JARQUIN Procedures Performed: 1.Selective coronary angiogram with bypass graft study. 2.Left heart catheterization. 3.PCI of severe proximal to mid diagonal branch, SVG graft, I used 3.0 x 48 mm Synergy drug-eluting stent. Indication: Ays-SV-vncpflqst myocardial infarction. Access: Right femoral artery, 6-[place], closed, 6-[place] Angio-Seal. Complications: None. Bleeding: Less than 50 mL. Anesthesia: Total sedation time was 1 hour. Description Of Procedure: After risks, benefits, alternatives were explained, patient agreed to proc eed and signed informed consent. The patient was brought to the cardiac catheterization laboratory, prepped and draped in sterile fashion. Then, I accessed right femoral artery using micropuncture kit , ultrasound guidance, fluoroscopy, placed 6-[place] sheath and took 6-[place] JL4 catheter in to aortic root, engaged left main, took standard views and then exchanged for a 6-[place] JR4 catheter , engaged the RCA and took standard views and crossed the aortic valve over the wire, then measured t he LVEDP and pullback recording gradient and then engaged the SVG to diagonal, took standard views an d SVG to OM, and took standard views and the same catheter was used to engage the HORTON to the LAD and took standard views and then removed the catheter. Then, we gave 600 mg of Plavix and systemic hepa rin to assure ACT level above 250 and took a 6-[place] JR4 guide into the aortic root over a J-wire, e ngaged the SVG graft to diagonal and then took a run-through wire into it and placed distally and the n using a 3.0 x 20 Compliant balloon, lesion was pre-dilated and expanded very well and then I placed a 3.0 x 48 mm Synergy drug-eluting stent with excellent expansion and patient tolerated procedure ve ry well. SAEED-3 flow at the end of the procedure and then removed the wire. Final angiogram was sat isfactory and removed the guide and the sheath and 6-[place] Angio-Seal was used for closure. Good he mostasis. Findings: 1.Left main; long, normal. 2.LAD, proximally DIRECTOR INDEX, 100% occluded. 3.Left circumflex; proximal DIRECTOR INDEX, 100%. 4.RCA; large and dominant proximal 60% heavily calcified and mid diffuse 30% to 40% heavily calcifie d stenosis and then distally, there were 2 tandem lesions, one is about 80% and the other one was 70% heavily calcified and then the PLB and PDA have diffuse 50% stenosis in both and the RCA is dominant circulation. Graft Study: 1.Patent HORTON to LAD. 2.Patent SVG graft to OM. 3.SVG graft to diagonal 1 with proximal 99% stenosis that is long and then there is a long 80% steno sis status post successful PCI as above. Conclusions: 1.Severe multivessel coronary artery disease with SVG graft to diagonal 1 having significant disease status post successful PCI as above. 2.Severe RCA stenosis and no bypass graft to it, but heavily calcified that needs atherectomy. Plan: 1.Aspirin Plavix, high-dose statin. 2.Staged PCI of the RCA with atherectomy versus ShockWave at [place]. /MODL Voice ID: [id number] Report ID: [id number]
[2023-07-03 06:29] LABS: Magnesium 1.8 mg/dL (1.6-2.4); Phosphorus 2.5 mg/dL (2.5-4.9); Potassium 3.8 mEq/L (3.5-5.1)
[2023-07-03] MEDS: MAGNESIUM SULFATE 1 gm IVPB 1 GM/100 ML BAG IV ONE (07:17)
[2023-07-03 08:31] VITALS: BP 129/60; TEMP 97
[2023-07-03] MEDS: POTASS/SODIUM PHOSPHATE 1 PKT POWD.PACK PO SCH (08:33)
[2023-07-03] MEDS: ASPIRIN 81 MG CHEWABLE TABLET PO SCH (08:34)
[2023-07-03] MEDS: POTASSIUM CL SA 10 MEQ TAB PO ONE (08:36)
[2023-07-03] MEDS: CLOPIDOGREL 75 MG TABLET PO SCH (08:36)
[2023-07-03 08:56] VITALS: O2SAT 97
--- NOTE | 2023-07-03 17:24 | PN ---
Date of Progress Note: 07/03/2023 Subjective: Seen by bedside, doing clinically well without any chest pain, shortness of breath, orth opnea, cough. No nausea, vomiting, diarrhea. Status post PCI of the SVG graft to diagonal 1, doing well. Review of Systems: No chest pain, shortness of breath, orthopnea, cough. No nausea, vomiting, diarrhea. All other syst ems reviewed are negative. Physical Examination: Vital Signs: Reviewed. Head and Neck: Pupils are equal, reactive to light. Intact eye movements. No JVD. No cervical lym phadenopathy. Neck supple. Thyroid is not enlarged. Lungs: Clear to auscultation bilaterally. No rhonchi, rales, or crackles. No accessory muscle use. Heart: Regular rate and rhythm. No extra sounds. Abdomen: Soft, nontender. Bowel sounds positive. No organomegaly. No masses or hernia. No rigidi ty or rebound. Extremities: No edema, clubbing, cyanosis. Intact pulses. Skin: No rash. Neurologic: Alert, awake, oriented x3. No acute focal deficits appreciated. Investigations: Labs reviewed. Assessment/recommendation: 1.Mks-[id number] myocardial infarction. Culprit is SVG to diagonal branch, status post successful PCI. Continue aspirin and Plavix. Follow up with me in the office in 2-3 weeks and will arrange fo r PCI of the RCA with shockwave at [place]. 2.Coronary artery disease. Needs PCI of the RCA with shockwave which will be done at [place] as an outpatient. 3.Dyslipidemia. Continue statin. SR/MODL Voice ID: [id number] Report ID: [id number]
== END 2023-07-03 09:44 | disposition home or self-care (01) | DRG 981 ==
LOC: ER 15:59 → ERHOLD 18:22 → 2ND 21:08 → OBSVTOIN 06-29 14:37
PROVIDERS: ADMIT Internal Medicine; ATTEND Internal Medicine
PROC: 027034Z Dilation of Coronary Artery, One Artery with Drug-eluting Intraluminal Device, Percutaneous Approach (ICD-10-PCS; principal; 2023-07-02)
PROC: 4A023N7 Measurement of Cardiac Sampling and Pressure, Left Heart, Percutaneous Approach (ICD-10-PCS; 2023-07-02)
PROC: B2111ZZ Fluoroscopy of Multiple Coronary Arteries using Low Osmolar Contrast (ICD-10-PCS; 2023-07-02)
DX: K81.0 Acute cholecystitis (principal); I21.4 Non-ST elevation (NSTEMI) myocardial infarction; E11.65 Type 2 diabetes mellitus with hyperglycemia; I10 Essential (primary) hypertension; E78.5 Hyperlipidemia, unspecified; I25.10 Atherosclerotic heart disease of native coronary artery without angina pectoris; R00.0 Tachycardia, unspecified; Z95.1 Presence of aortocoronary bypass graft; Z11.52 Encounter for screening for COVID-19; Z79.82 Long term (current) use of aspirin; Z79.899 Other long term (current) drug therapy
CPT/HCPCS: 36415; 36569; 71045; 74176; 76377; 76705; 76937; 78226; 78452; 80048; 80076; 81001; 82947; 83605; 83690; 83735; 83880; 84100; 84132; 84484; 85025; 85347; 85610; 87040; 87804; 87811; 93005; 93017; 93306; 93459; 99152; 99153; A9500; A9537; C1725; C1760; C1893; C9604; G0378; J0360; J0461; J0696; J1650; J1815; J2001; J2250; J2543; J2785; J3010; J3475; J3480; J7030; Q9967

== ENCOUNTER 2023-11-08 10:47 | Inpatient (IN) | payer OTHER ==
[~2023-11-08 10:47] MED LIST: D50W 25 GM/50 ML SYRINGE IV ONE; DEXTROSE 10%-WATER 500 ML IV ONE
[2023-11-08] MEDS ORDERED: GLUCAGON 1 MG/VIAL ONE (10:48)
--- OUTSIDE RECORDS SUMMARY | 2023-11-08 10:58 | XMS REPORT | Continuity of Care Document ---
Author Name Unknown Address [address] [facility] [address] [place] [address] [facility] thconnect Address [address] [facility] [place] [address] Care Team Providers Care Wire Frame Dipper Name Role Phone Raphael Ly Attending Clinician Unavailable Raphael Ly Admitting Clinician Unavailable Payers Payer Name Policy Type Policy Number Effective Date Expirati on Date Source [facility] AARP MCR Advantage (HMO-POS) [id number] 2021 00:00:00 [facility] Problems Condition Name Condition Details Condition Category Status Onset Date Resolution Date Last Treatment Date Treating Clinician Comments Source [id number] ED (erectile dysfunctio n) of organic origin Problem [facility] [id number] Incomplete emptying of bladder Problem [facility] [id number] BPH loc w urin obs/LUTS Problem [facility] [id number] Prostate cancer screening Problem [facility] Allergies, Adverse Reactions, Alerts Allergy Name Allergy Type Status Severity Reaction(s) Onset Date Inactive Date Treating Clinician Comments Source No Known Allergie s DA Active U 08-02 00:00: 00 [facility] Social History Social Habit Start Date Stop Date Quantity Comments Source Sex Assigned At [facility] History of Tobacco Use [facility] Smoking Status Start Date Stop Date Source Never Smoker [facility] Medications Ordered Medication Name Filled Medication Name Start Date Stop Date Current Medication? Ordering Clinician Indication Dosage Frequency Signature (SIG) Comments Components Source Finasteride 5 MG Finasteride 5 MG 2022-0 02-21 00:00: 00 No 1{table t} QD Finasterid e 5 MG Finasteride 5 MG Finasteride 5 MG 3-0 02-21 00:00: 00 No 1{table t} QD [...] height 2023-02-21 14:15:00 66 [in_i] Commo n [facility] weight 2023-02-21 14:15:00 188.2 [lb_av] Co mmon [facility] temperature 2023-02-21 14:15:00 97.1 [degF] Com mon [facility] bmi 2023-02-21 14:15:00 30.37 kg/m2 Comm on [facility] oximetry 2023-02-21 14:15:00 99 % Commo n [facility] respiratory rate 2023-02-21 14:15:00 18 /min [facility] blood pressure systolic 2023-02-21 14:15:00 132 mm[Hg] [facility] blood pressure diastolic 2023-02-21 14:15:00 68 mm[Hg] [facility] height 2022-08-10 14:45:00 66 [in_i] Commo n [facility] weight 2022-08-10 14:45:00 198.2 [lb_av] Co [facility] temperature 2022-08-10 14:45:00 97.6 [degF] Com mon [facility] bmi 2022-08-10 14:45:00 31.99 kg/m2 Comm on [facility] oximetry 2022-08-10 14:45:00 98 % Commo n [facility] respiratory rate 2022-08-10 14:45:00 18 /min [facility] blood pressure systolic 2022-08-10 14:45:00 143 mm[Hg] [facility] blood pressure diastolic 2022-08-10 14:45:00 76 mm[Hg] [facility] Procedures Procedure Date / Time Performed Performing Clinicia n Source [id number] 2023-08-28 00:00:00 KARZE [facility] [id number] 2023-08-06 00:00:00 SHEAL01 [facility] [id number] 2023-08-04 00:00:00 SHEAL01 [facility] [id number] 2023-08-04 00:00:00 SHEAL01 [facility] PVR 2023-02-21 00:00:00 [facility] PVR 2022-08-10 [facility] Encounters Start Date/Time End Date/Time Encounter Type Admission Type Attending Clinicians Care Facility Care Department Encounter ID Source 2023-04-10 15:59:01 Outpatient STLMLC STLMLC [id number] [facility] 2022-08-10 14:08:00 Outpatient STLMLC STLMLC [id number] [facility] 2022-06-19 10:15:03 Outpatient STLMLC STLMLC [id number] [facility] 2022-04-24 17:17:01 Outpatient STLMLC STLMLC [id number] [facility] 2021-06-22 14:26:52 Outpatient STLMLC STLMLC [id number] [facility] 2021-06-22 14:19:46 Outpatient STLMLC STLMLC [id number] [facility] 2023-08-03 10:07:00 2023-09-14 14:04:00 Inpatient EM Raphael Ly HCACL INTE [id number] [facility] 2023-02-21 00:00:00 2023-02-21 00:00:00 OFFICE VISIT ESTAB PT LEVEL 3 STLMLC STLMLC [id number] [facility] 2022-10-12 00:00:00 2022-10-12 00:00:00 OFFICE VISIT ESTAB PT LEVEL 2 STLMLC STLMLC [id number] [facility] 2022-08-10 00:00:00 2022-08-10 00:00:00 OFFICE VISIT ESTAB PT LEVEL 5 STLMLC STLMLC [id number] [facility] Results Test Description Test Time Test Comments Results Result Co mments Source GLUCOSE [id number] 08:25:00* Test Item Value Reference Range Interpretation Comme nts GLUCOSE BEDSIDE (test code = GLUBED) 157 MG/DL 70-110 H Performed by cer tified embossograph operator at [facility] GLUCOSE [id number] 20:39:00* Test Item Value Reference Range Interpretation Comme nts GLUCOSE BEDSIDE (test code = GLUBED) 160 MG/DL 70-110 H Performed by cer tified embossograph operator at [facility] GLUCOSE [id number] 16:58:00* Test Item Value Reference Range Interpretation Comme nts GLUCOSE BEDSIDE (test code = GLUBED) 217 MG/DL 70-110 H Performed by cer tified embossograph operator at [facility] GLUCOSE [id number] 11:30:00* Test Item Value Reference Range Interpretation Comme nts GLUCOSE BEDSIDE (test code = GLUBED) 200 MG/DL 70-110 H Performed by cer tified embossograph operator at [facility] GLUCOSE [id number] 08:31:00* Test Item Value Reference Range Interpretation Comme nts GLUCOSE BEDSIDE (test code = GLUBED) 90 MG/DL 70-110 N Performed by cer tified embossograph operator at [facility] GLUCOSE [id number] 21:29:00* Test Item Value Reference Range Interpretation Comme nts GLUCOSE BEDSIDE (test code = GLUBED) 73 MG/DL 70-110 N Performed by cer tified embossograph operator at [facility] GLUCOSE [id number] 20:55:00* Test Item Value Reference Range Interpretation Comme nts GLUCOSE BEDSIDE (test code = GLUBED) 119 MG/DL 70-110 H Performed by cer tified embossograph operator at [facility] GLUCOSE [id number] 12:23:00* Test Item Value Reference Range Interpretation Comme nts GLUCOSE BEDSIDE (test code = GLUBED) 81 MG/DL 70-110 N Performed by cer tified embossograph operator at [facility] GLUCOSE [id number] 07:50:00* Test Item Value Reference Range Interpretation Comme nts GLUCOSE BEDSIDE (test code = GLUBED) 121 MG/DL 70-110 H Performed by cer tified embossograph operator at [facility] GLUCOSE [id number] 21:11:00* Test Item Value Reference Range Interpretation Comme nts GLUCOSE BEDSIDE (test code = GLUBED) 163 MG/DL 70-110 H Performed by cer tified embossograph operator at [facility] GLUCOSE [id number] 17:01:00* Test Item Value Reference Range Interpretation Comme nts GLUCOSE BEDSIDE (test code = GLUBED) 151 MG/DL 70-110 H Performed by cer tified embossograph operator at [facility] GLUCOSE [id number] 12:44:00* Test Item Value Reference Range Interpretation Comme nts GLUCOSE BEDSIDE (test code = GLUBED) 178 MG/DL 70-110 H Performed by cer tified embossograph operator at [facility] GLUCOSE [id number] 07:50:00* Test Item Value Reference Range Interpretation Comme nts GLUCOSE BEDSIDE (test code = GLUBED) 152 MG/DL 70-110 H Performed by cer tified embossograph operator at [facility] GLUCOSE [id number] 20:41:00* Test Item Value Reference Range Interpretation Comme nts GLUCOSE BEDSIDE (test code = GLUBED) 195 MG/DL 70-110 H Performed by cer tified embossograph operator at [facility] GLUCOSE [id number] 16:32:00* Test Item Value Reference Range Interpretation Comme nts GLUCOSE BEDSIDE (test code = GLUBED) 181 MG/DL 70-110 H Performed by cer tified embossograph operator at [facility] GLUCOSE [id number] 11:57:00* Test Item Value Reference Range Interpretation Comme nts GLUCOSE BEDSIDE (test code = GLUBED) 190 MG/DL 70-110 H Performed by cer tified embossograph operator at [facility] GLUCOSE [id number] 07:28:00* Test Item Value Reference Range Interpretation Comme nts GLUCOSE BEDSIDE (test code = GLUBED) 137 MG/DL 70-110 H Performed by cer tified embossograph operator at [facility] COMPREHENSIVE METABOLIC [id number] 07:00:00* Test Item Value Reference Range Interpretation Comme nts SODIUM (test code = NA) 133 mEq/L 134-147 L POTASSIUM (test code = K) 4.3 mEq/L 3.4-5.0 N CHLORIDE (test code = CL) 103 mEq/L 100-108 N CARBON DIOXIDE (test code = CO2) 24 mEq/l 21-33 N ANION GAP (test code = GAP) 10 0-20 N GLUCOSE (test code = GLU) 149 mg/dL 77-141 H BLOOD UREA NITROGEN (test code = BUN) 16 mg/dL 7-25 N GLOMERULAR FILTRATION RATE (test code = GFR) 99.1 70-80 H The Glomerular Filtration Rate is a calculated parameterbased on serum Creatinine, patient age and sex. GFR valuesless than 60 mL/min/1.73 square meters are indicative ofChronic Kidney Disease. Values less than 15 mL/min/1.73square meters indicate Kidney failure. The calculation forGFR is based on the CKD-EPI (202) calculation. This formulais race indifferent and is the recommended formula for GFRby the National Kidney Foundation for Adults.The GFR will not calculate if the sex is unknown or if thepatient's age is <18 years. CREATININE (test code = CREAT) 0.7 mg/dL 0.6-1.3 N TOTAL PROTEIN (test code = PROT) 6.7 g/dL 6.4-8.2 N ALBUMIN (test code = ALB) 1.70 g/dL 3.4-5.0 L CALCIUM (test code = CA) 8.1 mg/dL 8.0-10.5 N BILIRUBIN TOTAL (test code = BILT) 0.50 mg/dL 0.0-1.0 N SGOT/AST (test code = AST) 58 IUnit/L 8-34 H SGPT/ALT (test code = ALT) 48 IUnit/L 10-49 N ALKALINE PHOSPHATASE TOTAL (test code = ALKP) 137 IUnit/L 20-125 H CBC W/AUTO [id number] 06:22:00* Test Item Value Reference Range Interpretation Comme nts WHITE BLOOD CELL (test code = WBC) 8.1 x10 3/uL 4.5-11.0 N RED BLOOD CELL (test code = RBC) 2.83 x10 6/uL 4.00-5.60 L HEMOGLOBIN (test code = HGB) 8.5 g/dL 12.5-16.9 L HEMATOCRIT (test code = HCT) 26.6 % 37.5-50.7 L MEAN CELL VOLUME (test code = MCV) 94.0 fL 81.0-99.0 N MEAN CELL HGB (test code = MCH) 30.0 pg 27.0-33.0 N MEAN CELL HGB CONCETRATION (test code = MCHC) 32.0 g/dL 33.0-37.0 L RED CELL DISTRIBUTION WIDTH CV (test code = RDW) 15.4 % 11.5-14.5 H RED CELL DISTRIBUTION WIDTH SD (test code = RDW-SD) 52.5 fL 37.0-54.0 N PLATELET COUNT (test code = PLT) 271 x10 3/uL 150-400 N MEAN PLATELET VOLUME (test c ode = MPV) 9.8 fL 7.0-9.0 H NEUTROPHIL % (test code = NT%) 45.6 % 56.0-77.0 L IMMATURE GRANULOCYTE % (test code = IG%) 0.2 % 0.0-2.0 N LYMPHOCYTE % (test code = LY%) 41.4 % 14.0-32.0 H MONOCYTE % (test code = MO%) 9.6 % 4.8-9.0 H EOSINOPHIL % (test code = EO%) 2.8 % 0.3-3.7 N BASOPHIL % (test code = BA%) 0.4 % 0.0-2.0 N NUCLEATED RBC % (test code = NRBC%) 0.0 % 0-0 N NEUTROPHIL # (test code = NT#) 3.69 x10 3/uL 2.0-7.6 N IMMATURE GRANULOCYTE # (test code = IG#) 0.02 x10 3/uL 0.00-0.03 N LYMPHOCYTE # (test code = LY#) 3.35 x10 3/uL 1.0-3.8 N MONOCYTE # (test code = MO#) 0.78 x10 3/uL 0.1-0.8 N EOSINOPHIL # (test code = EO#) 0.23 x10 3/uL 0.0-0.2 H BASOPHIL # (test code = BA#) 0.03 x10 3/uL 0.0-0.2 N NUCLEATED RBC # (test code = NRBC#) 0.00 x10 3/uL 0.0-0.1 N GLUCOSE [id number] 21:35:00* Test Item Value Reference Range Interpretation Comme nts GLUCOSE BEDSIDE (test code = GLUBED) 183 MG/DL 70-110 H Performed by cer tified embossograph operator at [facility] GLUCOSE [id number] 17:45:00* Test Item Value Reference Range Interpretation Comme nts GLUCOSE BEDSIDE (test code = GLUBED) 184 MG/DL 70-110 H Performed by cer tified embossograph operator at [facility] GLUCOSE [id number] 12:53:00* Test Item Value Reference Range Interpretation Comme nts GLUCOSE BEDSIDE (test code = GLUBED) 149 MG/DL 70-110 H Performed by cer tified embossograph operator at [facility] GLUCOSE [id number] 08:13:00* Test Item Value Reference Range Interpretation Comme nts GLUCOSE BEDSIDE (test code = GLUBED) 128 MG/DL 70-110 H Performed by cer tified embossograph operator at [facility] GLUCOSE [id number] 20:56:00* Test Item Value Reference Range Interpretation Comme nts GLUCOSE BEDSIDE (test code = GLUBED) 227 MG/DL 70-110 H Performed by cer tified embossograph operator at [facility] GLUCOSE [id number] 18:06:00* Test Item Value Reference Range Interpretation Comme nts GLUCOSE BEDSIDE (test code = GLUBED) 240 MG/DL 70-110 H Performed by cer tified embossograph operator at [facility] GLUCOSE [id number] 12:39:00* Test Item Value Reference Range Interpretation Comme nts GLUCOSE BEDSIDE (test code = GLUBED) 199 MG/DL 70-110 H Performed by cer tified embossograph operator at [facility] GLUCOSE [id number] 07:51:00* Test Item Value Reference Range Interpretation Comme nts GLUCOSE BEDSIDE (test code = GLUBED) 112 MG/DL 70-110 H Performed by cer tified embossograph operator at [facility] GLUCOSE [id number] 20:53:00* Test Item Value Reference Range Interpretation Comme nts GLUCOSE BEDSIDE (test code = GLUBED) 195 MG/DL 70-110 H Performed by cer tified embossograph operator at [facility] GLUCOSE [id number] 16:56:00* Test Item Value Reference Range Interpretation Comme nts GLUCOSE BEDSIDE (test code = GLUBED) 232 MG/DL 70-110 H Performed by cer tified embossograph operator at [facility] GLUCOSE [id number] 12:01:00* Test Item Value Reference Range Interpretation Comme nts GLUCOSE BEDSIDE (test code = GLUBED) 190 MG/DL 70-110 H Performed by cer tified embossograph operator at [facility] GLUCOSE [id number] 07:55:00* Test Item Value Reference Range Interpretation Comme nts GLUCOSE BEDSIDE (test code = GLUBED) 141 MG/DL 70-110 H Performed by cer tified embossograph operator at [facility] GLUCOSE [id number] 19:27:00* Test Item Value Reference Range Interpretation Comme nts GLUCOSE BEDSIDE (test code = GLUBED) 175 MG/DL 70-110 H Performed by cer tified embossograph operator at [facility] GLUCOSE [id number] 12:44:00* Test Item Value Reference Range Interpretation Comme nts GLUCOSE BEDSIDE (test code = GLUBED) 189 MG/DL 70-110 H Performed by cer tified embossograph operator at [facility] GLUCOSE [id number] 09:05:00* Test Item Value Reference Range Interpretation Comme nts GLUCOSE BEDSIDE (test code = GLUBED) 155 MG/DL 70-110 H Performed by cer tified embossograph operator at [facility] GLUCOSE [id number] 20:45:00* Test Item Value Reference Range Interpretation Comme nts GLUCOSE BEDSIDE (test code = GLUBED) 170 MG/DL 70-110 H Performed by cer tified embossograph operator at [facility] GLUCOSE [id number] 16:46:00* Test Item Value Reference Range Interpretation Comme nts GLUCOSE BEDSIDE (test code = GLUBED) 146 MG/DL 70-110 H Performed by cer tified embossograph operator at [facility] GLUCOSE [id number] 12:01:00* Test Item Value Reference Range Interpretation Comme nts GLUCOSE BEDSIDE (test code = GLUBED) 166 MG/DL 70-110 H Performed by cer tified embossograph operator at [facility] GLUCOSE [id number] 08:54:00* Test Item Value Reference Range Interpretation Comme nts GLUCOSE BEDSIDE (test code = GLUBED) 158 MG/DL 70-110 H Performed by cer tified embossograph operator at [facility] GLUCOSE [id number] 20:39:00* Test Item Value Reference Range Interpretation Comme nts GLUCOSE BEDSIDE (test code = GLUBED) 223 MG/DL 70-110 H Performed by cer tified embossograph operator at [facility] GLUCOSE [id number] 17:47:00* Test Item Value Reference Range Interpretation Comme nts GLUCOSE BEDSIDE (test code = GLUBED) 177 MG/DL 70-110 H Performed by cer tified embossograph operator at [facility] GLUCOSE [id number] 13:09:00* Test Item Value Reference Range Interpretation Comme nts GLUCOSE BEDSIDE (test code = GLUBED) 179 MG/DL 70-110 H Performed by cer tified embossograph operator at [facility] BASIC METABOLIC [id number] 12:03:00* Test Item Value Reference Range Interpretation Comme nts SODIUM (test code = NA) 145 mEq/L 134-147 N POTASSIUM (test code = K) 3.8 mEq/L 3.4-5.0 N CHLORIDE (test code = CL) 116 mEq/L 100-108 H CARBON DIOXIDE (test code = CO2) 22 mEq/l 21-33 N ANION GAP (test code = GAP) 10 0-20 N GLUCOSE (test code = GLU) 231 mg/dL 77-141 H BLOOD UREA NITROGEN (test code = BUN) 17 mg/dL 7-25 N GLOMERULAR FILTRATION RATE (test code = GFR) 91.9 70-80 H The Glomerular Filtration Rate is a calculated parameterbased on serum Creatinine, patient age and sex. GFR valuesless than 60 mL/min/1.73 square meters are indicative ofChronic Kidney Disease. Values less than 15 mL/min/1.73square meters indicate Kidney failure. The calculation forGFR is based on the CKD-EPI (2020) calculation. This formulais race indifferent and is the recommended formula for GFRby the National Kidney Foundation for Adults.The GFR will not calculate if the sex is unknown or if thepatient's age is <18 years. CREATININE (test code = CREAT) 0.9 mg/dL 0.6-1.3 N CALCIUM (test code = CA) 8.3 mg/dL 8.0-10.5 N [id number] 12:03:00* Test Item Value Reference Range Interpretation Comme nts MAGNESIUM (test code = MAG) 1.57 mg/dL 1.6-2.6 L GLUCOSE [id number] 07:55:00* Test Item Value Reference Range Interpretation Comme nts GLUCOSE BEDSIDE (test code = GLUBED) 162 MG/DL 70-110 H Performed by cer tified embossograph operator at [facility] GLUCOSE [id number] 20:44:00* Test Item Value Reference Range Interpretation Comme nts GLUCOSE BEDSIDE (test code = GLUBED) 249 MG/DL 70-110 H Performed by cer tified embossograph operator at [facility] GLUCOSE [id number] 17:01:00* Test Item Value Reference Range Interpretation Comme nts GLUCOSE BEDSIDE (test code = GLUBED) 230 MG/DL 70-110 H Performed by cer tified embossograph operator at [facility] GLUCOSE [id number] 11:53:00* Test Item Value Reference Range Interpretation Comme nts GLUCOSE BEDSIDE (test code = GLUBED) 153 MG/DL 70-110 H Performed by cer tified embossograph operator at [facility] GLUCOSE [id number] 07:54:00* Test Item Value Reference Range Interpretation Comme nts GLUCOSE BEDSIDE (test code = GLUBED) 105 MG/DL 70-110 N Performed by cer tified embossograph operator at [facility] GLUCOSE [id number] 21:07:00* Test Item Value Reference Range Interpretation Comme nts GLUCOSE BEDSIDE (test code = GLUBED) 217 MG/DL 70-110 H Performed by cer tified embossograph operator at [facility] GLUCOSE [id number] 18:39:00* Test Item Value Reference Range Interpretation Comme nts GLUCOSE BEDSIDE (test code = GLUBED) 172 MG/DL 70-110 H Performed by cer tified embossograph operator at [facility] GLUCOSE [id number] 12:21:00* Test Item Value Reference Range Interpretation Comme nts GLUCOSE BEDSIDE (test code = GLUBED) 156 MG/DL 70-110 H Performed by cer tified embossograph operator at [facility] GLUCOSE [id number] 08:30:00* Test Item Value Reference Range Interpretation Comme nts GLUCOSE BEDSIDE (test code = GLUBED) 137 MG/DL 70-110 H Performed by cer tified embossograph operator at [facility] BASIC METABOLIC [id number] 07:29:00* Test Item Value Reference Range Interpretation Comme nts SODIUM (test code = NA) 149 mEq/L 134-147 H POTASSIUM (test code = K) 2.6 mEq/L 3.4-5.0 LL Critical result called to Monica [facility] at 0709/02/23Nurse read back resut and tech confirmed it's correct? Y CHLORIDE (test code = CL) 117 mEq/L 100-108 H CARBON DIOXIDE (test code = CO2) 24 mEq/l 21-33 N ANION GAP (test code = GAP) 11 0-20 N GLUCOSE (test code = GLU) 146 mg/dL 77-141 H BLOOD UREA NITROGEN (test code = BUN) 17 mg/dL 7-25 N GLOMERULAR FILTRATION RATE (test code = GFR) 95.2 70-80 H The Glomerular Filtration Rate is a calculated parameterbased on serum Creatinine, patient age and sex. GFR valuesless than 60 mL/min/1.73 square meters are indicative ofChronic Kidney Disease. Values less than 15 mL/min/1.73square meters indicate Kidney failure. The calculation forGFR is based on the CKD-EPI (202) calculation. This formulais race indifferent and is the recommended formula for GFRby the National Kidney Foundation for Adults.The GFR will not calculate if the sex is unknown or if thepatient's age is <18 years. CREATININE (test code = CREAT) 0.8 mg/dL 0.6-1.3 N CALCIUM (test code = CA) 8.0 mg/dL 8.0-10.5 N CBC W/AUTO [id number] 07:01:00* Test Item Value Reference Range Interpretation Comme nts WHITE BLOOD CELL (test code = WBC) 8.5 x10 3/uL 4.5-11.0 N RED BLOOD CELL (test code = RBC) 2.85 x10 6/uL 4.00-5.60 L HEMOGLOBIN (test code = HGB) 8.8 g/dL 12.5-16.9 L HEMATOCRIT (test code = HCT) 28.7 % 37.5-50.7 L MEAN CELL VOLUME (test code = MCV) 100.7 fL 81.0-99.0 H MEAN CELL HGB (test code = MCH) 30.9 pg 27.0-33.0 N MEAN CELL HGB CONCETRATION (test code = MCHC) 30.7 g/dL 33.0-37.0 L RED CELL DISTRIBUTION WIDTH CV (test code = RDW) 17.1 % 11.5-14.5 H RED CELL DISTRIBUTION WIDTH SD (test code = RDW-SD) 63.5 fL 37.0-54.0 H PLATELET COUNT (test code = PLT) 217 x10 3/uL 150-400 N MEAN PLATELET VOLUME (test c ode = MPV) 10.6 fL 7.0-9.0 H NEUTROPHIL % (test code = NT%) 52.7 % 56.0-77.0 L IMMATURE GRANULOCYTE % (test code = IG%) 0.1 % 0.0-2.0 N LYMPHOCYTE % (test code = LY%) 36.1 % 14.0-32.0 H MONOCYTE % (test code = MO%) 7.8 % 4.8-9.0 N EOSINOPHIL % (test code = EO%) 3.1 % 0.3-3.7 N BASOPHIL % (test code = BA%) 0.2 % 0.0-2.0 N NUCLEATED RBC % (test code = NRBC%) 0.0 % 0-0 N NEUTROPHIL # (test code = NT#) 4.46 x10 3/uL 2.0-7.6 N IMMATURE GRANULOCYTE # (test code = IG#) 0.01 x10 3/uL 0.00-0.03 N LYMPHOCYTE # (test code = LY#) 3.05 x10 3/uL 1.0-3.8 N MONOCYTE # (test code = MO#) 0.66 x10 3/uL 0.1-0.8 N EOSINOPHIL # (test code = EO#) 0.26 x10 3/uL 0.0-0.2 H BASOPHIL # (test code = BA#) 0.02 x10 3/uL 0.0-0.2 N NUCLEATED RBC # (test code = NRBC#) 0.00 x10 3/uL 0.0-0.1 N GLUCOSE [id number] 20:55:00* Test Item Value Reference Range Interpretation Comme nts GLUCOSE BEDSIDE (test code = GLUBED) 193 MG/DL 70-110 H Performed by cer tified embossograph operator at [facility] GLUCOSE [id number] 16:56:00* Test Item Value Reference Range Interpretation Comme nts GLUCOSE BEDSIDE (test code = GLUBED) 188 MG/DL 70-110 H Performed by cer tified embossograph operator at [facility] GLUCOSE [id number] 12:36:00* Test Item Value Reference Range Interpretation Comme nts GLUCOSE BEDSIDE (test code = GLUBED) 211 MG/DL 70-110 H Performed by cer tified embossograph operator at [facility] GLUCOSE [id number] 07:28:00* Test Item Value Reference Range Interpretation Comme nts GLUCOSE BEDSIDE (test code = GLUBED) 207 MG/DL 70-110 H Performed by cer tified embossograph operator at [facility] GLUCOSE [id number] 19:51:00* Test Item Value Reference Range Interpretation Comme nts GLUCOSE BEDSIDE (test code = GLUBED) 178 MG/DL 70-110 H Performed by cer tified embossograph operator at [facility] GLUCOSE [id number] 17:05:00* Test Item Value Reference Range Interpretation Comme nts GLUCOSE BEDSIDE (test code = GLUBED) 153 MG/DL 70-110 H Performed by cer tified embossograph operator at [facility] UA RFLX MICR CULT IF [id number] 15:54:00* Test Item Value Reference Range Interpretation Comme nts UA COLOR (test code = COLU) YELLOW YEL/STRAW UA APPEARANCE (test code = APPU) CLEAR CLEAR UA GLUCOSE DIPSTICK (test code = DGLUU) NEGATIVE NEGATIVE UA BILIRUBIN DIPSTICK (test code = BILU) NEGATIVE NEGATIVE UA KETONE DIPSTICK (test code = KETU) TRACE NEGATIVE A UA SPECIFIC GRAVITY (test code = SGU) 1.020 1.005-1.030 N UA BLOOD DIPSTICK (test code = ERIKA) NEGATIVE NEGATIVE UA PH DIPSTICK (test code = CALDERON) 5.0 5.0-7.0 N UA PROTEIN DIPSTICK (test code = PROU) 1+ NEGATIVE A UA UROBILINIOGEN DIPSTICK (test code = URO) 0.2 mg/dL 0.2-1.0 UA NITRITE DIPSTICK (test code = RAFFI) NEGATIVE NEGATIVE UA LEUKOCYTE ESTERASE DIPSTICK (test code = LEUU) NEGATIVE NEGATIVE UA WBC (test code = WBCU) 0-3 WBC/HPF 0-3 UA RBC (test code = RBCU) NONE SEEN RBC/HPF 0-3 UA WBC NO REFLEX (test code = WBCUCL) 0-3 WBC/HPF 0-3 UA BACTERIA (test code = BACU) TRACE /HPF NONE SEEN UA SQUAMOUS CELLS (test code = SQU) 0-5 /HPF NONE SEEN UA HYALINE CAST (test code = HYALU) 11-20 /LPF NONE SEEN UA MUCUS (test code = MUCU) TRACE /LPF NONE SEEN Indication for culture: Temperature > 100.4 FSpecimen Description: INDWELLING CATH (SHELDON)Cath Status: Less than 14 daysGLUCOSE [id number] 11:40:00* Test Item Value Reference Range Interpretation Comme nts GLUCOSE BEDSIDE (test code = GLUBED) 118 MG/DL 70-110 H Performed by cer tified embossograph operator at [facility] GLUCOSE [id number] 07:42:00* Test Item Value Reference Range Interpretation Comme nts GLUCOSE BEDSIDE (test code = GLUBED) 77 MG/DL 70-110 N Performed by cer tified embossograph operator at [facility] GLUCOSE [id number] 20:02:00* Test Item Value Reference Range Interpretation Comme nts GLUCOSE BEDSIDE (test code = GLUBED) 108 MG/DL 70-110 N Performed by [facility] tified embossograph operator at [facility] GLUCOSE [id number] 17:45:00* Test Item Value Reference Range Interpretation Comme nts GLUCOSE BEDSIDE (test code = GLUBED) 118 MG/DL 70-110 H Performed by cer tified embossograph operator at [facility] GLUCOSE [id number] 16:20:00* Test Item Value Reference Range Interpretation Comme nts GLUCOSE BEDSIDE (test code = GLUBED) 131 MG/DL 70-110 H Performed by [facility] tified embossograph operator at [facility] GLUCOSE [id number] 13:05:00* Test Item Value Reference Range Interpretation Comme nts GLUCOSE BEDSIDE (test code = GLUBED) 155 MG/DL 70-110 H Performed by cer tified embossograph operator at [facility] GLUCOSE [id number] 08:41:00* Test Item Value Reference Range Interpretation Comme nts GLUCOSE BEDSIDE (test code = GLUBED) 134 MG/DL 70-110 H Performed by cer tified embossograph operator at [facility] GLUCOSE [id number] 19:51:00* Test Item Value Reference Range Interpretation Comme nts GLUCOSE BEDSIDE (test code = GLUBED) 143 MG/DL 70-110 H Performed by [facility] tified embossograph operator at [facility] - CT ABD PELVIS [id number] 19:19:00 [facility] Elli : 1955 Sex: M Name:M[facility]SY [facility]ES [facility] Justin Torres : 1955 Age/S: 68 / M [address] [place] [address] Unit #: [id number] Loc: TIA Morel [address] Phys: Kajal Nguyen MD Acct: [id number] Dis Date: Status: ADM IN PHONE #: [phone] Exam Date: 08/29/2023 1640 FAX #: [phone] Reason: follow up on liver abscess EXAMS: CPT CODE: [id number] CT ABD PELVIS W/CONT 88224 LOCATION: H48 HISTORY: Male, 68 years of age with percutaneous cholecystostomy tube and percutaneous liver abscess catheter; follow up on liver abscess EXAM: CT ABDOMEN AND PELVIS WITH IV CONTRAST COMPARISON: Previous CT abdomen and pelvis with contrast 08/14/2023 and 08/08/2023 TECHNIQUE: Contrast: Nonionic IV contrast was given. No GI contrast wasgiven. Portal venous phase: Abdomen and pelvis Delayed phase: None Reconstructions: Coronal and sagittal One or more of the following dose reduction techniques were used: Automated exposure control;adjustment of the mA and/or kV according to the patient size; and/or use of iterative reconstruction technique. FINDINGS: Statements: Exam quality is acceptable. LOWER THORAX: Mild atelectasis is seen in left lung base. No pleural effusion. Heavy coronary artery calcifications are present. HEPATOBILIARY: Cholecystectomy last week to again seen in satisfactory position within a contracted gallbladder. There is another pigtail catheter nearly parallel to the cholecystostomy tube placement terminating in the liver parenchyma of inferior right lobe of liver immediately adjacent to gallbladder fossa, also still in satisfactory position. Previously noted intrahepatic liver abscess is no longer visualized. There is very mild heterogeneity in the liver parenchyma around the drainage catheter probably related to scarring or mild residual edema. No new intrahepatic or perihepatic abscess collections are seen. No intrahepatic or extrahepatic biliary dilatation. Portal and hepatic veins are patent. Liver is overall normal size without focal soft tissue mass. PANCREAS: The pancreas is normal. SPLEEN: The spleen is normal. No mass or enlargement. ADRENALS: The adrenals are normal. PAGE 1 Signed Report (CONTINUED) Name: MISSY CANALES [facility] Justin Torres : 1955 Age/S: 68 / M [address] [place] [address] Unit #: [id number] Loc: TIA Morel [address] Phys: Kajal Nguyen MD Acct: [id number] Dis Date: Status: ADM IN PHONE #: [phone] Exam Date: 08/29/2023 1640 FAX #: [phone] Reason: follow up on liver abscess EXAMS: CPT CODE: [id number] CT ABD PELVIS W/CONT 29042 (Continued) GENITOURINARY: Multifocal cortical scarring again noted in the lower poles of both kidneys. No solid renal mass, perinephric stranding, obvious renal stone or hydronephrosis. Ureters are unremarkable. Urinarybladder is unremarkable. The visualized reproductive organs are unremarkable. GASTROINTESTINAL: There is mild colonic air distention, similar to prior study and probably reflecting colonic ileus. No bowel wall thickening, bowel obstruction or perienteric inflammation. The appendix is normal. VASCULAR: Atherosclerotic calcifications are seen within the aorta and branch vessels. No aneurysm or dissection. IVC is unremarkable. Portal vein is patent. LYMPHATICS: No enlarged lymph nodes by CT size criteria. BONES/SOFT TISSUES: No acute osseous findings. No ventral hernias. PERITONEUM/OTHER: No free intraperitoneal air. No free intraperitoneal fluid. IMPRESSION: 1. Percutaneous cholecystostomy tube and parallel right lobe of liver pigtail catheter remain in satisfactory position. There is no residual intrahepatic abscess collection and the gallbladder is now completely decompressed. 2. No biliary dilatation. 3. 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 4. Chronic scarring in the lower poles of both kidneys. 5. No free fluid orfree air. at 1919 Reported and signed by: Krystyna Olivarez M.D. CC: Kajal Nguyen MD; Bryce Hennessy MD Technologist:Mark Carroll Jr, RT(R)(CT) CTDI: DLP: Trnscb Date/Time: 08/29/2023 (1918) Suraj Orig Print D/T: S: 08/29/2023 (1921) PAGE 2 Signed ReportGLUCOSE [id number] 17:14:00* Test Item Value Reference Range Interpretation Comme nts GLUCOSE BEDSIDE (test code = GLUBED) 173 MG/DL 70-110 H Performed by cer tified embossograph operator at [facility] GLUCOSE [id number] 12:24:00* Test Item Value Reference Range Interpretation Comme nts GLUCOSE BEDSIDE (test code = GLUBED) 182 MG/DL 70-110 H Performed by cer tified embossograph operator at [facility] CBC W/AUTO [id number] 10:24:00* Test Item Value Reference Range Interpretation Comme nts WHITE BLOOD CELL (test code = WBC) 9.0 x10 3/uL 4.5-11.0 N RED BLOOD CELL (test code = RBC) 2.69 x10 6/uL 4.00-5.60 L HEMOGLOBIN (test code = HGB) 8.3 g/dL 12.5-16.9 L HEMATOCRIT (test code = HCT) 27.5 % 37.5-50.7 L MEAN CELL VOLUME (test code = MCV) 102.2 fL 81.0-99.0 H MEAN CELL HGB (test code = MCH) 30.9 pg 27.0-33.0 N MEAN CELL HGB CONCETRATION (test code = MCHC) 30.2 g/dL 33.0-37.0 L RED CELL DISTRIBUTION WIDTH CV (test code = RDW) 19.3 % 11.5-14.5 H RED CELL DISTRIBUTION WIDTH SD (test code = RDW-SD) 71.2 fL 37.0-54.0 H PLATELET COUNT (test code = PLT) 237 x10 3/uL 150-400 N MEAN PLATELET VOLUME (test c ode = MPV) 10.1 fL 7.0-9.0 H NEUTROPHIL % (test code = NT%) 55.0 % 56.0-77.0 L IMMATURE GRANULOCYTE % (test code = IG%) 0.3 % 0.0-2.0 N LYMPHOCYTE % (test code = LY%) 34.5 % 14.0-32.0 H MONOCYTE % (test code = MO%) 7.0 % 4.8-9.0 N EOSINOPHIL % (test code = EO%) 2.9 % 0.3-3.7 N BASOPHIL % (test code = BA%) 0.3 % 0.0-2.0 N NUCLEATED RBC % (test code = NRBC%) 0.2 % 0-0 H NEUTROPHIL # (test code = NT#) 4.94 x10 3/uL 2.0-7.6 N IMMATURE GRANULOCYTE # (test code = IG#) 0.03 x10 3/uL 0.00-0.03 N LYMPHOCYTE # (test code = LY#) 3.10 x10 3/uL 1.0-3.8 N MONOCYTE # (test code = MO#) 0.63 x10 3/uL 0.1-0.8 N EOSINOPHIL # (test code = EO#) 0.26 x10 3/uL 0.0-0.2 H BASOPHIL # (test code = BA#) 0.03 x10 3/uL 0.0-0.2 N NUCLEATED RBC # (test code = NRBC#) 0.02 x10 3/uL 0.0-0.1 N GLUCOSE [id number] 07:56:00* Test Item Value Reference Range Interpretation Comme nts GLUCOSE BEDSIDE (test code = GLUBED) 150 MG/DL 70-110 H Performed by cer tified embossograph operator at [facility] GLUCOSE [id number] 20:07:00* Test Item Value Reference Range Interpretation Comme nts GLUCOSE BEDSIDE (test code = GLUBED) 169 MG/DL 70-110 H Performed by cer tified embossograph operator at [facility] GLUCOSE [id number] 17:30:00* Test Item Value Reference Range Interpretation Comme nts GLUCOSE BEDSIDE (test code = GLUBED) 121 MG/DL 70-110 H Performed by cer tified embossograph operator at [facility] GLUCOSE [id number] 11:18:00* Test Item Value Reference Range Interpretation Comme nts GLUCOSE BEDSIDE (test code = GLUBED) 112 MG/DL 70-110 H Performed by cer tified embossograph operator at [facility] CBC W/AUTO [id number] 09:18:00* Test Item Value Reference Range Interpretation Comme nts WHITE BLOOD CELL (test code = WBC) 9.3 x10 3/uL 4.5-11.0 N RED BLOOD CELL (test code = RBC) 2.69 x10 6/uL 4.00-5.60 L HEMOGLOBIN (test code = HGB) 8.6 g/dL 12.5-16.9 L HEMATOCRIT (test code = HCT) 27.3 % 37.5-50.7 L MEAN CELL VOLUME (test code = MCV) 101.5 fL 81.0-99.0 H MEAN CELL HGB (test code = MCH) 32.0 pg 27.0-33.0 N MEAN CELL HGB CONCETRATION (test code = MCHC) 31.5 g/dL 33.0-37.0 L RED CELL DISTRIBUTION WIDTH CV (test code = RDW) 19.9 % 11.5-14.5 H RED CELL DISTRIBUTION WIDTH SD (test code = RDW-SD) 71.2 fL 37.0-54.0 H PLATELET COUNT (test code = PLT) 228 x10 3/uL 150-400 N MEAN PLATELET VOLUME (test c ode = MPV) 10.1 fL 7.0-9.0 H NEUTROPHIL % (test code = NT%) 59.9 % 56.0-77.0 N IMMATURE GRANULOCYTE % (test code = IG%) 0.3 % 0.0-2.0 N LYMPHOCYTE % (test code = LY%) 29.4 % 14.0-32.0 N MONOCYTE % (test code = MO%) 7.0 % 4.8-9.0 N EOSINOPHIL % (test code = EO%) 3.0 % 0.3-3.7 N BASOPHIL % (test code = BA%) 0.4 % 0.0-2.0 N NUCLEATED RBC % (test code = NRBC%) 0.2 % 0-0 H NEUTROPHIL # (test code = NT#) 5.54 x10 3/uL 2.0-7.6 N IMMATURE GRANULOCYTE # (test code = IG#) 0.03 x10 3/uL 0.00-0.03 N LYMPHOCYTE # (test code = LY#) 2.73 x10 3/uL 1.0-3.8 N MONOCYTE # (test code = MO#) 0.65 x10 3/uL 0.1-0.8 N EOSINOPHIL # (test code = EO#) 0.28 x10 3/uL 0.0-0.2 H BASOPHIL # (test code = BA#) 0.04 x10 3/uL 0.0-0.2 N NUCLEATED RBC # (test code = NRBC#) 0.02 x10 3/uL 0.0-0.1 N GLUCOSE [id number] 08:08:00* Test Item Value Reference Range Interpretation Comme nts GLUCOSE BEDSIDE (test code = GLUBED) 119 MG/DL 70-110 H Performed by cer tified embossograph operator at [facility] GLUCOSE [id number] 20:18:00* Test Item Value Reference Range Interpretation Comme nts GLUCOSE BEDSIDE (test code = GLUBED) 177 MG/DL 70-110 H Performed by cer tified embossograph operator at [facility] GLUCOSE [id number] 20:18:00* Test Item Value Reference Range Interpretation Comme nts GLUCOSE BEDSIDE (test code = GLUBED) 119 MG/DL 70-110 H Performed by cer tified embossograph operator at [facility] GLUCOSE [id number] 12:37:00* Test Item Value Reference Range Interpretation Comme nts GLUCOSE BEDSIDE (test code = GLUBED) 135 MG/DL 70-110 H Performed by cer tified embossograph operator at [facility] COMPREHENSIVE METABOLIC [id number] 10:07:00* Test Item Value Reference Range Interpretation Comme nts SODIUM (test code = NA) 149 mEq/L 134-147 H POTASSIUM (test code = K) 3.2 mEq/L 3.4-5.0 L CHLORIDE (test code = CL) 120 mEq/L 100-108 H CARBON DIOXIDE (test code = CO2) 24 mEq/l 21-33 N ANION GAP (test code = GAP) 9 0-20 N GLUCOSE (test code = GLU) 112 mg/dL 77-141 N BLOOD UREA NITROGEN (test code = BUN) 15 mg/dL 7-25 N GLOMERULAR FILTRATION RATE (test code = GFR) 91.9 70-80 H The Glomerular Filtration Rate is a calculated parameterbased on serum Creatinine, patient age and sex. GFR valuesless than 60 mL/min/1.73 square meters are indicative ofChronic Kidney Disease. Values less than 15 mL/min/1.73square meters indicate Kidney failure. The calculation forGFR is based on the CKD-EPI (202) calculation. This formulais race indifferent and is the recommended formula for GFRby the National Kidney Foundation for Adults.The GFR will not calculate if the sex is unknown or if thepatient's age is <18 years. CREATININE (test code = CREAT) 0.9 mg/dL 0.6-1.3 N TOTAL PROTEIN (test code = PROT) 7.0 g/dL 6.4-8.2 N ALBUMIN (test code = ALB) 1.90 g/dL 3.4-5.0 L CALCIUM (test code = CA) 8.3 mg/dL 8.0-10.5 N BILIRUBIN TOTAL (test code = BILT) 0.50 mg/dL 0.0-1.0 N SGOT/AST (test code = AST) 42 IUnit/L 8-34 H SGPT/ALT (test code = ALT) 26 IUnit/L 10-49 N ALKALINE PHOSPHATASE TOTAL (test code = ALKP) 83 IUnit/L 20-125 N GLUCOSE [id number] 08:12:00* Test Item Value Reference Range Interpretation Comme nts GLUCOSE BEDSIDE (test code = GLUBED) 111 MG/DL 70-110 H Performed by delia albert embossograph operator at [facility] CBC W/AUTO [id number] 06:32:00* Test Item Value Reference Range Interpretation Comme nts WHITE BLOOD CELL (test code = WBC) 10.3 x10 3/uL 4.5-11.0 N RED BLOOD CELL (test code = RBC) 2.74 x10 6/uL 4.00-5.60 L HEMOGLOBIN (test code = HGB) 8.7 g/dL 12.5-16.9 L HEMATOCRIT (test code = HCT) 27.2 % 37.5-50.7 L MEAN CELL VOLUME (test code = MCV) 99.3 fL 81.0-99.0 H MEAN CELL HGB (test code = MCH) 31.8 pg 27.0-33.0 N MEAN CELL HGB CONCETRATION (test code = MCHC) 32.0 g/dL 33.0-37.0 L RED CELL DISTRIBUTION WIDTH CV (test code = RDW) 19.3 % 11.5-14.5 H RED CELL DISTRIBUTION WIDTH SD (test code = RDW-SD) 63.0 fL 37.0-54.0 H PLATELET COUNT (test code = PLT) 263 x10 3/uL 150-400 N MEAN PLATELET VOLUME (test c ode = MPV) 9.7 fL 7.0-9.0 H NEUTROPHIL % (test code = NT%) 62.9 % 56.0-77.0 N IMMATURE GRANULOCYTE % (test code = IG%) 0.4 % 0.0-2.0 N LYMPHOCYTE % (test code = LY%) 26.2 % 14.0-32.0 N MONOCYTE % (test code = MO%) 8.3 % 4.8-9.0 N EOSINOPHIL % (test code = EO%) 1.9 % 0.3-3.7 N BASOPHIL % (test code = BA%) 0.3 % 0.0-2.0 N NUCLEATED RBC % (test code = NRBC%) 0.4 % 0-0 H NEUTROPHIL # (test code = NT#) 6.48 x10 3/uL 2.0-7.6 N IMMATURE GRANULOCYTE # (test code = IG#) 0.04 x10 3/uL 0.00-0.03 H LYMPHOCYTE # (test code = LY#) 2.70 x10 3/uL 1.0-3.8 N MONOCYTE # (test code = MO#) 0.85 x10 3/uL 0.1-0.8 H EOSINOPHIL # (test code = EO#) 0.20 x10 3/uL 0.0-0.2 N BASOPHIL # (test code = BA#) 0.03 x10 3/uL 0.0-0.2 N NUCLEATED RBC # (test code = NRBC#) 0.04 x10 3/uL 0.0-0.1 N GLUCOSE [id number] 05:48:00* Test Item Value Reference Range Interpretation Comme nts GLUCOSE BEDSIDE (test code = GLUBED) 151 MG/DL 70-110 H Performed by cer tified embossograph operator at [facility] GLUCOSE [id number] 18:25:00* Test Item Value Reference Range Interpretation Comme nts GLUCOSE BEDSIDE (test code = GLUBED) 167 MG/DL 70-110 H Performed by cer tified embossograph operator at [facility] GLUCOSE [id number] 12:49:00* Test Item Value Reference Range Interpretation Comme nts GLUCOSE BEDSIDE (test code = GLUBED) 185 MG/DL 70-110 H Performed by cer tified embossograph operator at [facility] GLUCOSE [id number] 09:02:00* Test Item Value Reference Range Interpretation Comme nts GLUCOSE BEDSIDE (test code = GLUBED) 144 MG/DL 70-110 H Performed by cer tified embossograph operator at [facility] COMPREHENSIVE METABOLIC [id number] 07:25:00* Test Item Value Reference Range Interpretation Comme nts SODIUM (test code = NA) 149 mEq/L 134-147 H POTASSIUM (test code = K) 3.2 mEq/L 3.4-5.0 L CHLORIDE (test code = CL) 117 mEq/L 100-108 H CARBON DIOXIDE (test code = CO2) 25 mEq/l 21-33 N ANION GAP (test code = GAP) 10 0-20 N GLUCOSE (test code = GLU) 135 mg/dL 77-141 BLOOD UREA NITROGEN (test code = BUN) 18 mg/dL 7-25 N GLOMERULAR FILTRATION RATE (test code = GFR) 91.9 70-80 H The Glomerular Filtration Rate is a calculated parameterbased on serum Creatinine, patient age and sex. GFR valuesless than 60 mL/min/1.73 square meters are indicative ofChronic Kidney Disease. Values less than 15 mL/min/1.73square meters indicate Kidney failure. The calculation forGFR is based on the CKD-EPI (202) calculation. This formulais race indifferent and is the recommended formula for GFRby the National Kidney Foundation for Adults.The GFR will not calculate if the sex is unknown or if thepatient's age is <18 years. CREATININE (test code = CREAT) 0.9 mg/dL 0.6-1.3 N TOTAL PROTEIN (test code = PROT) 6.9 g/dL 6.4-8.2 N ALBUMIN (test code = ALB) 1.70 g/dL 3.4-5.0 L CALCIUM (test code = CA) 8.4 mg/dL 8.0-10.5 BILIRUBIN TOTAL (test code = BILT) 0.40 mg/dL 0.0-1.0 N SGOT/AST (test code = AST) 55 IUnit/L 8-34 H SGPT/ALT (test code = ALT) 36 IUnit/L 10-49 ALKALINE PHOSPHATASE TOTAL (test code = ALKP) 82 IUnit/L 20-125 N CBC W/AUTO [id number] 06:46:00* Test Item Value Reference Range Interpretation Comme nts WHITE BLOOD CELL (test code = WBC) 11.6 x10 3/uL 4.5-11.0 H RED BLOOD CELL (test code = RBC) 2.22 x10 6/uL 4.00-5.60 L HEMOGLOBIN (test code = HGB) 7.0 g/dL 12.5-16.9 L HEMATOCRIT (test code = HCT) 22.5 % 37.5-50.7 L MEAN CELL VOLUME (test code = MCV) 101.4 fL 81.0-99.0 H MEAN CELL HGB (test code = MCH) 31.5 pg 27.0-33.0 N MEAN CELL HGB CONCETRATION (test code = MCHC) 31.1 g/dL 33.0-37.0 L RED CELL DISTRIBUTION WIDTH CV (test code = RDW) 18.1 % 11.5-14.5 H RED CELL DISTRIBUTION WIDTH SD (test code = RDW-SD) 63.9 fL 37.0-54.0 H PLATELET COUNT (test code = PLT) 277 x10 3/uL 150-400 N MEAN PLATELET VOLUME (test c ode = MPV) 10.0 fL 7.0-9.0 H NEUTROPHIL % (test code = NT%) 63.8 % 56.0-77.0 N IMMATURE GRANULOCYTE % (test code = IG%) 0.3 % 0.0-2.0 N LYMPHOCYTE % (test code = LY%) 26.3 % 14.0-32.0 N MONOCYTE % (test code = MO%) 7.6 % 4.8-9.0 N EOSINOPHIL % (test code = EO%) 1.7 % 0.3-3.7 N BASOPHIL % (test code = BA%) 0.3 % 0.0-2.0 N NUCLEATED RBC % (test code = NRBC%) 0.4 % 0-0 H NEUTROPHIL # (test code = NT#) 7.41 x10 3/uL 2.0-7.6 N IMMATURE GRANULOCYTE # (test code = IG#) 0.04 x10 3/uL 0.00-0.03 H LYMPHOCYTE # (test code = LY#) 3.06 x10 3/uL 1.0-3.8 N MONOCYTE # (test code = MO#) 0.88 x10 3/uL 0.1-0.8 H EOSINOPHIL # (test code = EO#) 0.20 x10 3/uL 0.0-0.2 N BASOPHIL # (test code = BA#) 0.03 x10 3/uL 0.0-0.2 N NUCLEATED RBC # (test code = NRBC#) 0.05 x10 3/uL 0.0-0.1 N GLUCOSE [id number] 22:07:00* Test Item Value Reference Range Interpretation Comme nts GLUCOSE BEDSIDE (test code = GLUBED) 176 MG/DL 70-110 H Performed by cer tified embossograph operator at [facility] GLUCOSE [id number] 17:38:00* Test Item Value Reference Range Interpretation Comme nts GLUCOSE BEDSIDE (test code = GLUBED) 177 MG/DL 70-110 H Performed by cer tified embossograph operator at [facility] GLUCOSE [id number] 11:41:00* Test Item Value Reference Range Interpretation Comme nts GLUCOSE BEDSIDE (test code = GLUBED) 227 MG/DL 70-110 H Performed by cer tified embossograph operator at [facility] GLUCOSE [id number] 08:07:00* Test Item Value Reference Range Interpretation Comme nts GLUCOSE BEDSIDE (test code = GLUBED) 219 MG/DL 70-110 H Performed by cer tified embossograph operator at [facility] GLUCOSE [id number] 21:18:00* Test Item Value Reference Range Interpretation Comme nts GLUCOSE BEDSIDE (test code = GLUBED) 206 MG/DL 70-110 H Performed by cer tified embossograph operator at [facility] GLUCOSE [id number] 16:51:00* Test Item Value Reference Range Interpretation Comme nts GLUCOSE BEDSIDE (test code = GLUBED) 248 MG/DL 70-110 H Performed by cer tified embossograph operator at [facility] BASIC METABOLIC [id number] 15:05:00* Test Item Value Reference Range Interpretation Comme nts SODIUM (test code = NA) 147 mEq/L 134-147 N POTASSIUM (test code = K) 3.8 mEq/L 3.4-5.0 N SPECIMEN 1+ HEMOLYZED.Results known to be adversely affected by hemolysis are: Potassium Magnesium LDH Phosphorus CHLORIDE (test code = CL) 119 mEq/L 100-108 H CARBON DIOXIDE (test code = CO2) 20 mEq/l 21-33 L ANION GAP (test code = GAP) 12 0-20 N GLUCOSE (test code = GLU) 216 mg/dL 77-141 H BLOOD UREA NITROGEN (test code = BUN) 23 mg/dL 7-25 N GLOMERULAR FILTRATION RATE (test code = GFR) 99.1 70-80 H The Glomerular Filtration Rate is a calculated parameterbased on serum Creatinine, patient age and sex. GFR valuesless than 60 mL/min/1.73 square meters are indicative ofChronic Kidney Disease. Values less than 15 mL/min/1.73square meters indicate Kidney failure. The calculation forGFR is based on the CKD-EPI (202) calculation. This formulais race indifferent and is the recommended formula for GFRby the National Kidney Foundation for Adults.The GFR will not calculate if the sex is unknown or if thepatient's age is <18 years. CREATININE (test code = CREAT) 0.7 mg/dL 0.6-1.3 N CALCIUM (test code = CA) 6.2 mg/dL 8.0-10.5 LL Critical result called to Monica ALCARAZ [id number] at 1501 08/24/23Nurse read back result and tech confirmed it's correct? YES CBC W/AUTO [id number] 14:36:00* Test Item Value Reference Range Interpretation Comme nts WHITE BLOOD CELL (test code = WBC) 12.3 x10 3/uL 4.5-11.0 H RED BLOOD CELL (test code = RBC) 2.21 x10 6/uL 4.00-5.60 L HEMOGLOBIN (test code = HGB) 6.9 g/dL 12.5-16.9 L HEMATOCRIT (test code = HCT) 22.4 % 37.5-50.7 L MEAN CELL VOLUME (test code = MCV) 101.4 fL 81.0-99.0 H MEAN CELL HGB (test code = MCH) 31.2 pg 27.0-33.0 N MEAN CELL HGB CONCETRATION (test code = MCHC) 30.8 g/dL 33.0-37.0 L RED CELL DISTRIBUTION WIDTH CV (test code = RDW) 17.8 % 11.5-14.5 H RED CELL DISTRIBUTION WIDTH SD (test code = RDW-SD) 63.1 fL 37.0-54.0 H PLATELET COUNT (test code = PLT) 304 x10 3/uL 150-400 N MEAN PLATELET VOLUME (test c ode = MPV) 9.7 fL 7.0-9.0 H NEUTROPHIL % (test code = NT%) 68.0 % 56.0-77.0 N IMMATURE GRANULOCYTE % (test code = IG%) 0.6 % 0.0-2.0 N LYMPHOCYTE % (test code = LY%) 22.6 % 14.0-32.0 N MONOCYTE % (test code = MO%) 6.7 % 4.8-9.0 N EOSINOPHIL % (test code = EO%) 1.8 % 0.3-3.7 N BASOPHIL % (test code = BA%) 0.3 % 0.0-2.0 N NUCLEATED RBC % (test code = NRBC%) 0.0 % 0-0 N NEUTROPHIL # (test code = NT#) 8.36 x10 3/uL 2.0-7.6 H IMMATURE GRANULOCYTE # (test code = IG#) 0.08 x10 3/uL 0.00-0.03 H LYMPHOCYTE # (test code = LY#) 2.79 x10 3/uL 1.0-3.8 N MONOCYTE # (test code = MO#) 0.83 x10 3/uL 0.1-0.8 H EOSINOPHIL # (test code = EO#) 0.22 x10 3/uL 0.0-0.2 H BASOPHIL # (test code = BA#) 0.04 x10 3/uL 0.0-0.2 N NUCLEATED RBC # (test code = NRBC#) 0.00 x10 3/uL 0.0-0.1 N GLUCOSE [id number] 11:59:00* Test Item Value Reference Range Interpretation Comme nts GLUCOSE BEDSIDE (test code = GLUBED) 246 MG/DL 70-110 H Performed by cer tified embossograph operator at [facility] GLUCOSE [id number] 07:11:00* Test Item Value Reference Range Interpretation Comme nts GLUCOSE BEDSIDE (test code = GLUBED) 203 MG/DL 70-110 H Performed by cer tified embossograph operator at [facility] GLUCOSE [id number] 20:31:00* Test Item Value Reference Range Interpretation Comme nts GLUCOSE BEDSIDE (test code = GLUBED) 273 MG/DL 70-110 H Performed by cer tified embossograph operator at [facility] GLUCOSE [id number] 17:25:00* Test Item Value Reference Range Interpretation Comme nts GLUCOSE BEDSIDE (test code = GLUBED) 249 MG/DL 70-110 H Performed by cer tified embossograph operator at [facility] GLUCOSE [id number] 12:26:00* Test Item Value Reference Range Interpretation Comme nts GLUCOSE BEDSIDE (test code = GLUBED) 197 MG/DL 70-110 H Performed by cer tified embossograph operator at [facility] GLUCOSE [id number] 07:32:00* Test Item Value Reference Range Interpretation Comme nts GLUCOSE BEDSIDE (test code = GLUBED) 179 MG/DL 70-110 H Performed by cer tified embossograph operator at [facility] GLUCOSE [id number] 19:28:00* Test Item Value Reference Range Interpretation Comme nts GLUCOSE BEDSIDE (test code = GLUBED) 229 MG/DL 70-110 H Performed by cer tified embossograph operator at [facility] GLUCOSE [id number] 17:05:00* Test Item Value Reference Range Interpretation Comme nts GLUCOSE BEDSIDE (test code = GLUBED) 214 MG/DL 70-110 H Performed by cer tified embossograph operator at [facility] GLUCOSE [id number] 11:31:00* Test Item Value Reference Range Interpretation Comme nts GLUCOSE BEDSIDE (test code = GLUBED) 149 MG/DL 70-110 H Performed by cer tified embossograph operator at [facility] GLUCOSE [id number] 08:21:00* Test Item Value Reference Range Interpretation Comme nts GLUCOSE BEDSIDE (test code = GLUBED) 153 MG/DL 70-110 H Performed by cer tified embossograph operator at [facility] COMPREHENSIVE METABOLIC [id number] 06:46:00* Test Item Value Reference Range Interpretation Comme nts SODIUM (test code = NA) 150 mEq/L 134-147 H POTASSIUM (test code = K) 3.4 mEq/L 3.4-5.0 N CHLORIDE (test code = CL) 116 mEq/L 100-108 H CARBON DIOXIDE (test code = CO2) 29 mEq/l 21-33 N ANION GAP (test code = GAP) 9 0-20 N GLUCOSE (test code = GLU) 173 mg/dL 77-141 H BLOOD UREA NITROGEN (test code = BUN) 8 mg/dL 7-25 N GLOMERULAR FILTRATION RATE (test code = GFR) 95.2 70-80 H The Glomerular Filtration Rate is a calculated parameterbased on serum Creatinine, patient age and sex. GFR valuesless than 60 mL/min/1.73 square meters are indicative ofChronic Kidney Disease. Values less than 15 mL/min/1.73square meters indicate Kidney failure. The calculation forGFR is based on the CKD-EPI (202) calculation. This formulais race indifferent and is the recommended formula for GFRby the National Kidney Foundation for Adults.The GFR will not calculate if the sex is unknown or if thepatient's age is <18 years. CREATININE (test code = CREAT) 0.8 mg/dL 0.6-1.3 N TOTAL PROTEIN (test code = PROT) 6.7 g/dL 6.4-8.2 N ALBUMIN (test code = ALB) 1.60 g/dL 3.4-5.0 L CALCIUM (test code = CA) 7.9 mg/dL 8.0-10.5 L BILIRUBIN TOTAL (test code = BILT) 0.70 mg/dL 0.0-1.0 N SGOT/AST (test code = AST) 128 IUnit/L 8-34 H SGPT/ALT (test code = ALT) 79 IUnit/L 10-49 H ALKALINE PHOSPHATASE TOTAL (test code = ALKP) 109 IUnit/L 20-125 N CBC W/AUTO [id number] 06:19:00* Test Item Value Reference Range Interpretation Comme nts WHITE BLOOD CELL (test code = WBC) 9.2 x10 3/uL 4.5-11.0 N RED BLOOD CELL (test code = RBC) 2.76 x10 6/uL 4.00-5.60 L HEMOGLOBIN (test code = HGB) 8.6 g/dL 12.5-16.9 L HEMATOCRIT (test code = HCT) 26.5 % 37.5-50.7 L MEAN CELL VOLUME (test code = MCV) 96.0 fL 81.0-99.0 N MEAN CELL HGB (test code = MCH) 31.2 pg 27.0-33.0 N MEAN CELL HGB CONCETRATION (test code = MCHC) 32.5 g/dL 33.0-37.0 L RED CELL DISTRIBUTION WIDTH CV (test code = RDW) 17.4 % 11.5-14.5 H RED CELL DISTRIBUTION WIDTH SD (test code = RDW-SD) 58.7 fL 37.0-54.0 H PLATELET COUNT (test code = PLT) 342 x10 3/uL 150-400 N MEAN PLATELET VOLUME (test c ode = MPV) 9.4 fL 7.0-9.0 H NEUTROPHIL % (test code = NT%) 64.8 % 56.0-77.0 N IMMATURE GRANULOCYTE % (test code = IG%) 0.4 % 0.0-2.0 N LYMPHOCYTE % (test code = LY%) 23.8 % 14.0-32.0 N MONOCYTE % (test code = MO%) 8.9 % 4.8-9.0 N EOSINOPHIL % (test code = EO%) 1.8 % 0.3-3.7 N BASOPHIL % (test code = BA%) 0.3 % 0.0-2.0 N NUCLEATED RBC % (test code = NRBC%) 0.2 % 0-0 H NEUTROPHIL # (test code = NT#) 5.98 x10 3/uL 2.0-7.6 N IMMATURE GRANULOCYTE # (test code = IG#) 0.04 x10 3/uL 0.00-0.03 H LYMPHOCYTE # (test code = LY#) 2.20 x10 3/uL 1.0-3.8 N MONOCYTE # (test code = MO#) 0.82 x10 3/uL 0.1-0.8 H EOSINOPHIL # (test code = EO#) 0.17 x10 3/uL 0.0-0.2 N BASOPHIL # (test code = BA#) 0.03 x10 3/uL 0.0-0.2 N NUCLEATED RBC # (test code = NRBC#) 0.02 x10 3/uL 0.0-0.1 N GLUCOSE [id number] 22:06:00* Test Item Value Reference Range Interpretation Comme nts GLUCOSE BEDSIDE (test code = GLUBED) 231 MG/DL 70-110 H Performed by cer tified embossograph operator at [facility] GLUCOSE [id number] 12:01:00* Test Item Value Reference Range Interpretation Comme nts GLUCOSE BEDSIDE (test code = GLUBED) 107 MG/DL 70-110 N Performed by cer tified embossograph operator at [facility] GLUCOSE [id number] 08:43:00* Test Item Value Reference Range Interpretation Comme nts GLUCOSE BEDSIDE (test code = GLUBED) 109 MG/DL 70-110 N Performed by delia albert embossograph operator at [facility] CBC W/AUTO [id number] 07:32:00* Test Item Value Reference Range Interpretation Comme nts WHITE BLOOD CELL (test code = WBC) 11.0 x10 3/uL 4.5-11.0 N RED BLOOD CELL (test code = RBC) 2.84 x10 6/uL 4.00-5.60 L HEMOGLOBIN (test code = HGB) 8.9 g/dL 12.5-16.9 L HEMATOCRIT (test code = HCT) 26.8 % 37.5-50.7 L MEAN CELL VOLUME (test code = MCV) 94.4 fL 81.0-99.0 MEAN CELL HGB (test code = MCH) 31.3 pg 27.0-33.0 N MEAN CELL HGB CONCETRATION (test code = MCHC) 33.2 g/dL 33.0-37.0 N RED CELL DISTRIBUTION WIDTH CV (test code = RDW) 17.3 % 11.5-14.5 H RED CELL DISTRIBUTION WIDTH SD (test code = RDW-SD) 57.4 fL 37.0-54.0 H PLATELET COUNT (test code = PLT) 347 x10 3/uL 150-400 N MEAN PLATELET VOLUME (test c ode = MPV) 9.4 fL 7.0-9.0 H NEUTROPHIL % (test code = NT%) 65.5 % 56.0-77.0 N IMMATURE GRANULOCYTE % (test code = IG%) 0.7 % 0.0-2.0 N LYMPHOCYTE % (test code = LY%) 22.0 % 14.0-32.0 N MONOCYTE % (test code = MO%) 9.5 % 4.8-9.0 H EOSINOPHIL % (test code = EO%) 1.8 % 0.3-3.7 N BASOPHIL % (test code = BA%) 0.5 % 0.0-2.0 N NUCLEATED RBC % (test code = NRBC%) 0.4 % 0-0 H NEUTROPHIL # (test code = NT#) 7.23 x10 3/uL 2.0-7.6 N IMMATURE GRANULOCYTE # (test code = IG#) 0.08 x10 3/uL 0.00-0.03 H LYMPHOCYTE # (test code = LY#) 2.43 x10 3/uL 1.0-3.8 N MONOCYTE # (test code = MO#) 1.05 x10 3/uL 0.1-0.8 H EOSINOPHIL # (test code = EO#) 0.20 x10 3/uL 0.0-0.2 N BASOPHIL # (test code = BA#) 0.05 x10 3/uL 0.0-0.2 N NUCLEATED RBC # (test code = NRBC#) 0.04 x10 3/uL 0.0-0.1 N BASIC METABOLIC [id number] 07:22:00* Test Item Value Reference Range Interpretation Comme nts SODIUM (test code = NA) 149 mEq/L 134-147 H POTASSIUM (test code = K) 3.2 mEq/L 3.4-5.0 L CHLORIDE (test code = CL) 115 mEq/L 100-108 H CARBON DIOXIDE (test code = CO2) 28 mEq/l 21-33 N ANION GAP (test code = GAP) 9 0-20 N GLUCOSE (test code = GLU) 121 mg/dL 77-141 N BLOOD UREA NITROGEN (test code = BUN) 11 mg/dL 7-25 N GLOMERULAR FILTRATION RATE (test code = GFR) 95.2 70-80 H The Glomerular Filtration Rate is a calculated parameterbased on serum Creatinine, patient age and sex. GFR valuesless than 60 mL/min/1.73 square meters are indicative ofChronic Kidney Disease. Values less than 15 mL/min/1.73square meters indicate Kidney failure. The calculation forGFR is based on the CKD-EPI (202) calculation. This formulais race indifferent and is the recommended formula for GFRby the National Kidney Foundation for Adults.The GFR will not calculate if the sex is unknown or if thepatient's age is <18 years. CREATININE (test code = CREAT) 0.8 mg/dL 0.6-1.3 N CALCIUM (test code = CA) 8.0 mg/dL 8.0-10.5 N GLUCOSE [id number] 00:21:00* Test Item Value Reference Range Interpretation Comme nts GLUCOSE BEDSIDE (test code = GLUBED) 133 MG/DL 70-110 H Performed by delia albert embossograph operator at [facility] GLUCOSE [id number] 19:53:00* Test Item Value Reference Range Interpretation Comme nts GLUCOSE BEDSIDE (test code = GLUBED) 169 MG/DL 70-110 H Performed by cer tified embossograph operator at [facility] GLUCOSE [id number] 17:40:00* Test Item Value Reference Range Interpretation Comme nts GLUCOSE BEDSIDE (test code = GLUBED) 150 MG/DL 70-110 H Performed by cer tified embossograph operator at [facility] GLUCOSE [id number] 12:29:00* Test Item Value Reference Range Interpretation Comme nts GLUCOSE BEDSIDE (test code = GLUBED) 115 MG/DL 70-110 H Performed by cer tified embossograph operator at [facility] GLUCOSE [id number] 10:16:00* Test Item Value Reference Range Interpretation Comme nts GLUCOSE BEDSIDE (test code = GLUBED) 100 MG/DL 70-110 N Performed by cer tified embossograph operator at [facility] CBC W/AUTO [id number] 07:50:00* Test Item Value Reference Range Interpretation Comme nts WHITE BLOOD CELL (test code = WBC) 12.4 x10 3/uL 4.5-11.0 H RED BLOOD CELL (test code = RBC) 2.04 x10 6/uL 4.00-5.60 L HEMOGLOBIN (test code = HGB) 6.3 g/dL 12.5-16.9 LL Critical result called to DAGO GUTIERREZ, NAFISAby [id number] at 0747 08/20/23Nurse read back result and tech confirmed it's correct? Y ---- HEMATOCRIT (test code = HCT) 19.9 % 37.5-50.7 L MEAN CELL VOLUME (test code = MCV) 97.5 fL 81.0-99.0 N MEAN CELL HGB (test code = MCH) 30.9 pg 27.0-33.0 N MEAN CELL HGB CONCETRATION (test code = MCHC) 31.7 g/dL 33.0-37.0 L RED CELL DISTRIBUTION WIDTH CV (test code = RDW) 17.7 % 11.5-14.5 H RED CELL DISTRIBUTION WIDTH SD (test code = RDW-SD) 60.6 fL 37.0-54.0 H PLATELET COUNT (test code = PLT) 377 x10 3/uL 150-400 N MEAN PLATELET VOLUME (test code = MPV) 10.2 fL 7.0-9.0 H NEUTROPHIL % (test code = NT%) 64.9 % 56.0-77.0 N IMMATURE GRANULOCYTE % (test code = IG%) 0.6 % 0.0-2.0 N LYMPHOCYTE % (test code = LY%) 23.2 % 14.0-32.0 N MONOCYTE % (test code = MO%) 9.2 % 4.8-9.0 H EOSINOPHIL % (test code = EO%) 1.8 % 0.3-3.7 N BASOPHIL % (test code = BA%) 0.3 % 0.0-2.0 N NUCLEATED RBC % (test code = NRBC%) 0.0 % 0-0 N NEUTROPHIL # (test code = NT#) 8.06 x10 3/uL 2.0-7.6 H IMMATURE GRANULOCYTE # (test code = IG#) 0.08 x10 3/uL 0.00-0.03 H LYMPHOCYTE # (test code = LY#) 2.88 x10 3/uL 1.0-3.8 N MONOCYTE # (test code = MO#) 1.14 x10 3/uL 0.1-0.8 H EOSINOPHIL # (test code = EO#) 0.22 x10 3/uL 0.0-0.2 H BASOPHIL # (test code = BA#) 0.04 x10 3/uL 0.0-0.2 N NUCLEATED RBC # (test code = NRBC#) 0.00 x10 3/uL 0.0-0.1 N BASIC METABOLIC [id number] 06:51:00* Test Item Value Reference Range Interpretation Comme nts SODIUM (test code = NA) 148 mEq/L 134-147 H POTASSIUM (test code = K) 3.2 mEq/L 3.4-5.0 L CHLORIDE (test code = CL) 112 mEq/L 100-108 H CARBON DIOXIDE (test code = CO2) 27 mEq/l 21-33 N ANION GAP (test code = GAP) 12 0-20 N GLUCOSE (test code = GLU) 110 mg/dL 77-141 BLOOD UREA NITROGEN (test code = BUN) 19 mg/dL 7-25 N GLOMERULAR FILTRATION RATE (test code = GFR) 91.9 70-80 H The Glomerular Filtration Rate is a calculated parameterbased on serum Creatinine, patient age and sex. GFR valuesless than 60 mL/min/1.73 square meters are indicative ofChronic Kidney Disease. Values less than 15 mL/min/1.73square meters indicate Kidney failure. The calculation forGFR is based on the CKD-EPI (202) calculation. This formulais race indifferent and is the recommended formula for GFRby the National Kidney Foundation for Adults.The GFR will not calculate if the sex is unknown or if thepatient's age is <18 years. CREATININE (test code = CREAT) 0.9 mg/dL 0.6-1.3 N CALCIUM (test code = CA) 7.9 mg/dL 8.0-10.5 L GLUCOSE [id number] 20:42:00* Test Item Value Reference Range Interpretation Comme nts GLUCOSE BEDSIDE (test code = GLUBED) 135 MG/DL 70-110 H Performed by [facility] [employer] embossograph operator at [facility] GLUCOSE [id number] 17:27:00* Test Item Value Reference Range Interpretation Comme nts GLUCOSE BEDSIDE (test code = GLUBED) 162 MG/DL 70-110 H Performed by [facility] [employer] embossograph operator at [facility] GLUCOSE [id number] 15:58:00* Test Item Value Reference Range Interpretation Comme nts GLUCOSE BEDSIDE (test code = GLUBED) 212 MG/DL 70-110 H Performed by [facility] [employer] embossograph operator at [facility] - CT HEAD/BRAIN W/O [id number] 15:21:00 [facility] : 1955 Sex: M Name:MISSY CANALES : 1955 Age/S: 68 / M [address] [place] [address] Unit #: [id number]: [place] [address] Phys: Violette Rivero DO Acct: [id number] Dis Date: Status: ADM IN PHONE #: [phone] Exam Date: 08/19/2023 1428 FAX #: [phone] Reason: AMS EXAMS: CPT CODE: [id number] CTHEAD/BRAIN W/O CONT 32385 EXAMINATION: - CT HEAD/BRAIN W/O CONT INDICATION: AMS COMPARISON: 08/06/2023, 08/07/2023 LOCATION: H96 TECHNIQUE: Axial noncontrast head CT was performed. Sagittal and coronalreformatted images were created. This exam was performed according to our departmental dose optimization program, which includes automated exposure control, adjustment of the mA and/or kV according to patient size, and/or use of iterative reconstruction technique. Unless otherwise specified, incidental findings do not require dedicated imaging follow-up. FINDINGS: Moderate cerebral volume loss and moderate chronic microangiopathic changes. 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 No mass effect or hemorrhage. Status post bilateral cataract surgery with otherwise unremarkable orbits. Imaged paranasal sinuses and mastoid air cells are clear. No acute osseous abnormality is identified. IMPRESSION: Unchanged extent of small left guo radiata infarct described on MRI brain 08/07/2023. No acute intracranial findings otherwise. at 1521 Reported and signed by: Madhu Camacho M.D. PAGE 1 Signed Report (CONTINUED) Name: MISSY CANALES : 1955 Age/S: 68 / M [address] [place] [address] Unit #: [id number] Loc: TIA Morel [address] Phys: Violette Rivero DO Acct: [id number] Dis Date: Status: ADM IN PHONE #: [phone] Exam Date: 08/19/20231427 FAX #: [phone] Reason: AMS EXAMS: CPT CODE: [id number] CT HEAD/BRAIN W/O CONT 22221 (Continued) CC: Violette Hennessy MD Technologist:Clemente Shultz, RT(R)(CT) CTDI: DLP: Trnscb Date/Time: (1520) [email or web address] Orig Print D/T: S: 08/19/2023 (1523) PAGE 2 Signed ReportGLUCOSE [id number] 11:59:00* Test Item Value Reference Range Interpretation Comme nts GLUCOSE BEDSIDE (test code = GLUBED) 199 MG/DL 70-110 H Performed by cer tified embossograph operator at [facility] GLUCOSE [id number] 08:21:00* Test Item Value Reference Range Interpretation Comme nts GLUCOSE BEDSIDE (test code = GLUBED) 187 MG/DL 70-110 H Performed by [facility] tified embossograph operator at [facility] BASIC METABOLIC [id number] 06:16:00* Test Item Value Reference Range Interpretation Comme nts SODIUM (test code = NA) 142 mEq/L 134-147 N POTASSIUM (test code = K) 3.5 mEq/L 3.4-5.0 CHLORIDE (test code = CL) 108 mEq/L 100-108 N CARBON DIOXIDE (test code = CO2) 25 mEq/l 21-33 N ANION GAP (test code = GAP) 13 0-20 N GLUCOSE (test code = GLU) 223 mg/dL 77-141 H BLOOD UREA NITROGEN (test code = BUN) 26 mg/dL 7-25 H GLOMERULAR FILTRATION RATE (test code = GFR) 81.0 70-80 H The Glomerular Filtration Rate is a calculated parameterbased on serum Creatinine, patient age and sex. GFR valuesless than 60 mL/min/1.73 square meters are indicative ofChronic Kidney Disease. Values less than 15 mL/min/1.73square meters indicate Kidney failure. The calculation forGFR is based on the CKD-EPI (2020) calculation. This formulais race indifferent and is the recommended formula for GFRby the National Kidney Foundation for Adults.The GFR will not calculate if the sex is unknown or if thepatient's age is <18 years. CREATININE (test code = CREAT) 1.0 mg/dL 0.6-1.3 N CALCIUM (test code = CA) 7.9 mg/dL 8.0-10.5 L [id number] 06:16:00* Test Item Value Reference Range Interpretation Comme nts PHOSPHOROUS (test code = PHOS) 2.0 MG/DL 2.5-4.9 L [id number] 06:16:00* Test Item Value Reference Range Interpretation Comme nts MAGNESIUM (test code = MAG) 1.83 mg/dL 1.6-2.6 N CBC W/AUTO [id number] 06:07:00* Test Item Value Reference Range Interpretation Comme nts WHITE BLOOD CELL (test code = WBC) 14.2 x10 3/uL 4.5-11.0 H RED BLOOD CELL (test code = RBC) 2.41 x10 6/uL 4.00-5.60 L HEMOGLOBIN (test code = HGB) 7.3 g/dL 12.5-16.9 L HEMATOCRIT (test code = HCT) 22.9 % 37.5-50.7 L MEAN CELL VOLUME (test code = MCV) 95.0 fL 81.0-99.0 N MEAN CELL HGB (test code = MCH) 30.3 pg 27.0-33.0 N MEAN CELL HGB CONCETRATION (test code = MCHC) 31.9 g/dL 33.0-37.0 L RED CELL DISTRIBUTION WIDTH CV (test code = RDW) 16.7 % 11.5-14.5 H RED CELL DISTRIBUTION WIDTH SD (test code = RDW-SD) 56.8 fL 37.0-54.0 H PLATELET COUNT (test code = PLT) 427 x10 3/uL 150-400 H MEAN PLATELET VOLUME (test c ode = MPV) 10.3 fL 7.0-9.0 H NEUTROPHIL % (test code = NT%) 61.2 % 56.0-77.0 N IMMATURE GRANULOCYTE % (test code = IG%) 0.6 % 0.0-2.0 N LYMPHOCYTE % (test code = LY%) 26.4 % 14.0-32.0 N MONOCYTE % (test code = MO%) 10.6 % 4.8-9.0 H EOSINOPHIL % (test code = EO%) 0.9 % 0.3-3.7 N BASOPHIL % (test code = BA%) 0.3 % 0.0-2.0 N NUCLEATED RBC % (test code = NRBC%) 0.1 % 0-0 H NEUTROPHIL # (test code = NT#) 8.70 x10 3/uL 2.0-7.6 H IMMATURE GRANULOCYTE # (test code = IG#) 0.09 x10 3/uL 0.00-0.03 H LYMPHOCYTE # (test code = LY#) 3.76 x10 3/uL 1.0-3.8 N MONOCYTE # (test code = MO#) 1.51 x10 3/uL 0.1-0.8 H EOSINOPHIL # (test code = EO#) 0.13 x10 3/uL 0.0-0.2 N BASOPHIL # (test code = BA#) 0.04 x10 3/uL 0.0-0.2 N NUCLEATED RBC # (test code = NRBC#) 0.02 x10 3/uL 0.0-0.1 N GLUCOSE [id number] 20:11:00* Test Item Value Reference Range Interpretation Comme nts GLUCOSE BEDSIDE (test code = GLUBED) 210 MG/DL 70-110 H Performed by cer tified embossograph operator at [facility] GLUCOSE [id number] 17:07:00* Test Item Value Reference Range Interpretation Comme nts GLUCOSE BEDSIDE (test code = GLUBED) 197 MG/DL 70-110 H Performed by [facility] tified embossograph operator at [facility] GLUCOSE [id number] 12:17:00* Test Item Value Reference Range Interpretation Comme nts GLUCOSE BEDSIDE (test code = GLUBED) 156 MG/DL 70-110 H Performed by cer tified embossograph operator at [facility] GLUCOSE [id number] 08:12:00* Test Item Value Reference Range Interpretation Comme nts GLUCOSE BEDSIDE (test code = GLUBED) 115 MG/DL 70-110 H Performed by [facility] tified embossograph operator at [facility] COMPREHENSIVE METABOLIC [id number] 06:36:00* Test Item Value Reference Range Interpretation Comme nts SODIUM (test code = NA) 142 mEq/L 134-147 N POTASSIUM (test code = K) 2.9 mEq/L 3.4-5.0 LL Critical result called to Monica [email or web address] at 0636 08/18/23Nurse read back resut and tech confirmed it's correct? YES CHLORIDE (test code = CL) 107 mEq/L 100-108 N CARBON DIOXIDE (test code = CO2) 28 mEq/l 21-33 N ANION GAP (test code = GAP) 10 0-20 N GLUCOSE (test code = GLU) 102 mg/dL 77-141 N BLOOD UREA NITROGEN (test code = BUN) 7 mg/dL 7-25 N GLOMERULAR FILTRATION RATE (test code = GFR) 95.2 70-80 H The Glomerular Filtration Rate is a calculated parameterbased on serum Creatinine, patient age and sex. GFR valuesless than 60 mL/min/1.73 square meters are indicative ofChronic Kidney Disease. Values less than 15 mL/min/1.73square meters indicate Kidney failure. The calculation forGFR is based on the CKD-EPI (202) calculation. This formulais race indifferent and is the recommended formula for GFRby the National Kidney Foundation for Adults.The GFR will not calculate if the sex is unknown or if thepatient's age is <18 years. CREATININE (test code = CREAT) 0.8 mg/dL 0.6-1.3 N TOTAL PROTEIN (test code = PROT) 6.9 g/dL 6.4-8.2 N ALBUMIN (test code = ALB) 1.90 g/dL 3.4-5.0 L CALCIUM (test code = CA) 8.0 mg/dL 8.0-10.5 N BILIRUBIN TOTAL (test code = BILT) 0.70 mg/dL 0.0-1.0 N SGOT/AST (test code = AST) 73 IUnit/L 8-34 H SGPT/ALT (test code = ALT) 37 IUnit/L 10-49 N ALKALINE PHOSPHATASE TOTAL (test code = ALKP) 104 IUnit/L 20-125 N GLUCOSE [id number] 19:46:00* Test Item Value Reference Range Interpretation Comme nts GLUCOSE BEDSIDE (test code = GLUBED) 137 MG/DL 70-110 H Performed by cer bety embossograph operator at [facility] GLUCOSE [id number] 16:59:00* Test Item Value Reference Range Interpretation Comme nts GLUCOSE BEDSIDE (test code = GLUBED) 193 MG/DL 70-110 H Performed by cer tified embossograph operator at [facility] GLUCOSE [id number] 12:23:00* Test Item Value Reference Range Interpretation Comme nts GLUCOSE BEDSIDE (test code = GLUBED) 125 MG/DL 70-110 H Performed by cer tified embossograph operator at [facility] GLUCOSE [id number] 07:53:00* Test Item Value Reference Range Interpretation Comme nts GLUCOSE BEDSIDE (test code = GLUBED) 100 MG/DL 70-110 N Performed by cer tified embossograph operator at [facility] CBC W/AUTO [id number] 06:13:00* Test Item Value Reference Range Interpretation Comme nts WHITE BLOOD CELL (test code = WBC) 12.2 x10 3/uL 4.5-11.0 H RED BLOOD CELL (test code = RBC) 2.90 x10 6/uL 4.00-5.60 L HEMOGLOBIN (test code = HGB) 8.8 g/dL 12.5-16.9 L HEMATOCRIT (test code = HCT) 27.8 % 37.5-50.7 L MEAN CELL VOLUME (test code = MCV) 95.9 fL 81.0-99.0 N MEAN CELL HGB (test code = MCH) 30.3 pg 27.0-33.0 N MEAN CELL HGB CONCETRATION (test code = MCHC) 31.7 g/dL 33.0-37.0 L RED CELL DISTRIBUTION WIDTH CV (test code = RDW) 17.9 % 11.5-14.5 H RED CELL DISTRIBUTION WIDTH SD (test code = RDW-SD) 59.6 fL 37.0-54.0 H PLATELET COUNT (test code = PLT) 322 x10 3/uL 150-400 N MEAN PLATELET VOLUME (test c ode = MPV) 11.8 fL 7.0-9.0 H NEUTROPHIL % (test code = NT%) 67.5 % 56.0-77.0 N IMMATURE GRANULOCYTE % (test code = IG%) 0.7 % 0.0-2.0 N LYMPHOCYTE % (test code = LY%) 21.2 % 14.0-32.0 N MONOCYTE % (test code = MO%) 9.1 % 4.8-9.0 H EOSINOPHIL % (test code = EO%) 1.1 % 0.3-3.7 N BASOPHIL % (test code = BA%) 0.4 % 0.0-2.0 N NUCLEATED RBC % (test code = NRBC%) 0.0 % 0-0 N NEUTROPHIL # (test code = NT#) 8.21 x10 3/uL 2.0-7.6 H IMMATURE GRANULOCYTE # (test code = IG#) 0.08 x10 3/uL 0.00-0.03 H LYMPHOCYTE # (test code = LY#) 2.57 x10 3/uL 1.0-3.8 N MONOCYTE # (test code = MO#) 1.11 x10 3/uL 0.1-0.8 H EOSINOPHIL # (test code = EO#) 0.13 x10 3/uL 0.0-0.2 N BASOPHIL # (test code = BA#) 0.05 x10 3/uL 0.0-0.2 N NUCLEATED RBC # (test code = NRBC#) 0.00 x10 3/uL 0.0-0.1 N GLUCOSE [id number] 21:50:00* Test Item Value Reference Range Interpretation Comme nts GLUCOSE BEDSIDE (test code = GLUBED) 153 MG/DL 70-110 H Performed by cer tified embossograph operator at [facility] GLUCOSE [id number] 18:07:00* Test Item Value Reference Range Interpretation Comme nts GLUCOSE BEDSIDE (test code = GLUBED) 151 MG/DL 70-110 H Performed by [facility] [facility] GLUCOSE [id number] 13:48:00* Test Item Value Reference Range Interpretation Comme nts GLUCOSE BEDSIDE (test code = GLUBED) 153 MG/DL 70-110 H Performed by cer tified embossograph operator at [facility] GLUCOSE [id number] 05:48:00* Test Item Value Reference Range Interpretation Comme nts GLUCOSE BEDSIDE (test code = GLUBED) 153 MG/DL 70-110 H Performed by cer tified embossograph operator at [facility] GLUCOSE [id number] 00:00:00* Test Item Value Reference Range Interpretation Comme nts GLUCOSE BEDSIDE (test code = GLUBED) 249 MG/DL 70-110 H Performed by cer tified embossograph operator at [facility] GLUCOSE [id number] 05:56:00* Test Item Value Reference Range Interpretation Comme nts GLUCOSE BEDSIDE (test code = GLUBED) 145 MG/DL 70-110 H Performed by cer tified embossograph operator at [facility] GLUCOSE [id number] 00:08:00* Test Item Value Reference Range Interpretation Comme nts GLUCOSE BEDSIDE (test code = GLUBED) 157 MG/DL 70-110 H Performed by cer tified embossograph operator at [facility] SED RATE [id number] 21:34:00* Test Item Value Reference Range Interpretation Comme nts SED RATE WESTERGREN (test co de = SEDW) 114 mm/hr 0-15 H URIC [id number] 21:03:00* Test Item Value Reference Range Interpretation Comme nts URIC ACID (test code = URIC) 4.4 mg/dL 2.6-7.2 N C REACTIVE [id number] 21:03:00* Test Item Value Reference Range Interpretation Comme nts C REACTIVE PROTEIN (test cod e = CRP) 224.0 mg/L <10.0 H COVID 19 Asymptomatic IH [id number] 20:51:00* Test Item Value Reference Range Interpretation Comme nts COVID 19 Asymptomatic IH AG (test code = COVNONPUIAG) Negative Negative A negative resul t is presumptive and should be confirmedwith an FDA authorized molecular assay, if necessary forpatient management.A positive result does not rule out co-infections withother pathogens.This test detects both viable (live) and non-viable,SARS-CoV, and SARS-CoV-2. Test performance depends on theamount of virus (antigen) in the sample.This test has not been FDA cleared or approved; the test hasbeen authorized by FDA under an Emergency Use Authorization(EUA) for use by laboratories certified under the CLIA thatmeet the requirements to perform moderate, high or waivedcomplexity tests. UA RFLX MICR CULT IF [id number] 20:45:00* Test Item Value Reference Range Interpretation Comme nts UA COLOR (test code = COLU) SANDRA YEL/STRAW A UA APPEARANCE (test code = APPU) SL CLOUDY CLEAR UA GLUCOSE DIPSTICK (test co de = DGLUU) 1+ NEGATIVE A UA BILIRUBIN DIPSTICK (test code = BILU) NEGATIVE NEGATIVE UA KETONE DIPSTICK (test cod e = KETU) TRACE NEGATIVE A UA SPECIFIC GRAVITY (test co de = SGU) 1.017 1.005-1.030 N UA BLOOD DIPSTICK (test code = ERIKA) 2+ NEGATIVE A UA PH DIPSTICK (test code = CALDERON) 5.0 5.0-7.0 N UA PROTEIN DIPSTICK (test co de = PROU) 2+ NEGATIVE A UA UROBILINIOGEN DIPSTICK (test code = URO) 0.2 mg/dL 0.2-1.0 UA NITRITE DIPSTICK (test co de = RAFFI) NEGATIVE NEGATIVE UA LEUKOCYTE ESTERASE DIPSTI CK (test code = LEUU) TRACE NEGATIVE A UA WBC (test code = WBCU) 4-9 WBC/HPF 0-3 A UA RBC (test code = RBCU) 4-10 RBC/HPF 0-3 UA WBC NO REFLEX (test code = WBCUCL) 4-9 WBC/HPF 0-3 A UA BACTERIA (test code = BACU) TRACE /HPF NONE SEEN UA SQUAMOUS CELLS (test code = SQU) NONE SEEN /HPF NONE SEEN UA MUCUS (test code = MUCU) TRACE /LPF NONE SEEN UA AMORPHOUS SEDIMENT (test code = AMORU) 3+ /HPF NONE A UA YEAST (BUDDING) (test cod e = YEASTUBD) 2+ /HPF NONE A Indication for culture: Temperature > 100.4 FSpecimen Description: STRAIGHT CATH - XR ABDOMEN 1V (KUB)2023-08-14 18:16:00 [facility] 1955 Sex: M FAX: Lisa Almendarez MD [phone] [place]: St: ADM FAX: Bryce Serrano MD [phone] Name: MISSY CANALES [facility] : 1955 Age/S: 68/M [address] [place] [address] Unit #: [id number] Loc: [address] [place] [address] Phys: Lisa Cancino MD Acct: [id number] Dis Date: Status: ADM IN PHONE #: [phone] Exam Date: 08/14/20231810 FAX #: [phone] Reason: abdominal distention EXAMS: CPT CODE: [id number] ABDOMEN 1V (KUB) 30006 ABDOMEN, SINGLE VIEW LOCATION: H30 HISTORY: Distention. A single view ofthe abdomen at 5:54 PM was compared to an abdomen and pelvis CT from earlier the same day. FINDINGS: Air-filled and distended colon is present along with mild prominence of small bowel loops. Ileus is most likely given this appearance as well as the findings on recent CT scan. No other acute findings are seen. IMPRESSION: Diffuse colonic ileus and mild small bowel ileus. Electronically Signedby Eleonora Espinosa on 08/14/2023 at 1816 Reported and signed by: Hugh Espinosa M.D. CC: Lisa Cancino MD; Bryce Hennessy MD Technologist: RT Rashad(R)(CT) Trnscrd Date/Time/By: 08/14/2023 (1815) : By: Christi Orig Print D/T: S: 08/14/2023 (1818) PAGE 1 Signed ReportGLUCOSE [id number] 17:45:00* Test Item Value Reference Range Interpretation Comme nts GLUCOSE BEDSIDE (test code = GLUBED) 201 MG/DL 70-110 H Performed by delia albert embossograph operator at [facility] - CT ABD PELVIS [id number] 17:12:00 [facility]IN TORRESName: MISSY CANALES : 1955 Sex: M Name:MISSY CANALES [facility] [place] : 1955 Age/S: 68 / M [address] [place] [address] Unit #: [id number]: AdrielTIA [address] Phys: ViniciusJv 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 Liver abscess. TECHNIQUE: Axial images of the abdomen and pelvis were obtained following intravenous administration of 100 mL Isovue-300 contrast at 4:36 PM. Correlation is made to prior exam from August 08, 2023. All CT scans are performed using radiation dose reduction techniques. Technical factors are evaluated and adjusted to ensure appropriate moderation of exposure. Automated dose management technology is applied to adjust the radiation dose to minimize exposurewhile achieving a diagnostic-quality image. Unless otherwise specified, incidental findings do not require dedicated imaging follow-up. FINDINGS: Patchy bibasilar lung infiltrative and atelectatic changes noted along with a small right pleural effusion. Mild cardiomegaly is again present with a small pericardial effusion. The lower thorax shows no other acute findings. The right liver lobe abscess has decreased in size from approximately 5.5 cm to 4.1 cm. The drainage catheter remains in goodposition. No new liver abnormality is seen. The pancreas, spleen, adrenal glands and kidneys show no new acute findings. There is mild to moderate diffuse distention of small and large bowel consistent with ileus. No acute enteric abnormality is otherwise seen. The vascular structures of the abdomen and pelvis as well as the genitourinary structures of the pelvis show no acute findings. No adeno emily, mass or fluid collection is seen in the abdomen, retroperitoneum or pelvis. No new skeletal abnormality is developed in the interval. IMPRESSION: 1. Interval partial improvement of the right liver lobe abscess with a catheter in good position. 2. Worsening bibasilar lung infiltrative/atelectatic changes and small effusion. 3. Mild to moderate diffuse ileus. 4. No other new or acute findings. PAGE 1 Signed Report (CONTINUED) Name: MISSY CANALES [facility] : 1955 Age/S: 68 / M [address] [place] [address] Unit #: [id number] Loc: [place] [address] Phys: Jv Colvin NP Acct: [id number] Dis Date: Status: ADM IN PHONE #: [phone] Exam Date: 08/14/2023 1645 FAX #: [phone] Reason: fever, cholecystitis, liver abscess EXAMS: CPT CODE: [id number] CT ABD PELVIS W/CONT 17587 (Continued) at 1712 Reported and signed by: Hugh Espinosa M.D. CC: Jv Colvin SPACECRAFT SYSTEMS ENGINEER; Bryce Hennessy MD Technologist:Ana Lilia Pascual, RT(R)(CT) CTDI: DLP: Trnscb Date/Time: 08/14/2023 (1711) t.SDR.FAM Orig Print D/T: S: 08/14/19 24 (5) PAGE 2 Signed ReportGLUCOSE [id number] 12:09:00* Test Item Value Reference Range Interpretation Comme [facility] GLUCOSE BEDSIDE (test code = GLUBED) 292 MG/DL 70-110 H Performed by delia andrea at [facility] GLUCOSE [id number] 06:30:00* Test Item Value Reference Range Interpretation Comme [facility] GLUCOSE BEDSIDE (test code = GLUBED) 228 MG/DL 70-110 H Performed by delia albert embossograph operator at [facility] GLUCOSE [id number] 05:19:00* Test Item Value Reference Range Interpretation Comme nts GLUCOSE BEDSIDE (test code = GLUBED) 251 MG/DL 70-110 H Performed by cer tified embossograph operator at [facility] COMPREHENSIVE METABOLIC [id number] 19:55:00* Test Item Value Reference Range Interpretation Comme nts SODIUM (test code = NA) 134 mEq/L 134-147 N POTASSIUM (test code = K) 3.2 mEq/L 3.4-5.0 L CHLORIDE (test code = CL) 102 mEq/L 100-108 N CARBON DIOXIDE (test code = CO2) 24 mEq/l 21-33 N ANION GAP (test code = GAP) 11 0-20 N GLUCOSE (test code = GLU) 232 mg/dL 77-141 H BLOOD UREA NITROGEN (test code = BUN) 14 mg/dL 7-25 N GLOMERULAR FILTRATION RATE (test code = GFR) 95.2 70-80 H The Glomerular Filtration Rate is a calculated parameterbased on serum Creatinine, patient age and sex. GFR valuesless than 60 mL/min/1.73 square meters are indicative ofChronic Kidney Disease. Values less than 15 mL/min/1.73square meters indicate Kidney failure. The calculation forGFR is based on the CKD-EPI (2021) calculation. This formulais race indifferent and is the recommended formula for GFRby the National Kidney Foundation for Adults.The GFR will not calculate if the sex is unknown or if thepatient's age is <18 years. CREATININE (test code = CREAT) 0.8 mg/dL 0.6-1.3 N TOTAL PROTEIN (test code = PROT) 6.7 g/dL 6.4-8.2 N ALBUMIN (test code = ALB) 1.70 g/dL 3.4-5.0 L CALCIUM (test code = CA) 7.3 mg/dL 8.0-10.5 L BILIRUBIN TOTAL (test code = BILT) 0.60 mg/dL 0.0-1.0 SGOT/AST (test code = AST) 69 IUnit/L 8-34 H SGPT/ALT (test code = ALT) 34 IUnit/L 10-49 N ALKALINE PHOSPHATASE TOTAL (test code = ALKP) 133 IUnit/L 20-125 H [id number] 19:55:00* Test Item Value Reference Range Interpretation Comme nts PHOSPHOROUS (test code = PHOS) 1.5 MG/DL 2.5-4.9 L [id number] 19:55:00* Test Item Value Reference Range Interpretation Comme nts MAGNESIUM (test code = MAG) 1.86 mg/dL 1.6-2.6 N CBC W/AUTO [id number] 19:31:00* Test Item Value Reference Range Interpretation Comme nts WHITE BLOOD CELL (test code = WBC) 16.6 x10 3/uL 4.5-11.0 H RED BLOOD CELL (test code = RBC) 2.84 x10 6/uL 4.00-5.60 L HEMOGLOBIN (test code = HGB) 8.7 g/dL 12.5-16.9 L HEMATOCRIT (test code = HCT) 25.1 % 37.5-50.7 L MEAN CELL VOLUME (test code = MCV) 88.4 fL 81.0-99.0 N MEAN CELL HGB (test code = MCH) 30.6 pg 27.0-33.0 N MEAN CELL HGB CONCETRATION (test code = MCHC) 34.7 g/dL 33.0-37.0 N RED CELL DISTRIBUTION WIDTH CV (test code = RDW) 14.9 % 11.5-14.5 H RED CELL DISTRIBUTION WIDTH SD (test code = RDW-SD) 45.1 fL 37.0-54.0 N PLATELET COUNT (test code = PLT) 387 x10 3/uL 150-400 N MEAN PLATELET VOLUME (test code = MPV) 10.3 fL 7.0-9.0 H NEUTROPHIL % (test code = NT%) 77.4 % 56.0-77.0 H IMMATURE GRANULOCYTE % (test code = IG%) 0.9 % 0.0-2.0 N LYMPHOCYTE % (test code = LY%) 14.0 % 14.0-32.0 N MONOCYTE % (test code = MO%) 7.0 % 4.8-9.0 N EOSINOPHIL % (test code = EO%) 0.5 % 0.3-3.7 N BASOPHIL % (test code = BA%) 0.2 % 0.0-2.0 N NUCLEATED RBC % (test code = NRBC%) 0.0 % 0-0 N NEUTROPHIL # (test code = NT#) 12.81 x10 3/uL 2.0-7.6 H IMMATURE GRANULOCYTE # (test code = IG#) 0.15 x10 3/uL 0.00-0.03 H LYMPHOCYTE # (test code = LY#) 2.32 x10 3/uL 1.0-3.8 N MONOCYTE # (test code = MO#) 1.16 x10 3/uL 0.1-0.8 H EOSINOPHIL # (test code = EO#) 0.09 x10 3/uL 0.0-0.2 N BASOPHIL # (test code = BA#) 0.03 x10 3/uL 0.0-0.2 N NUCLEATED RBC # (test code = NRBC#) 0.00 x10 3/uL 0.0-0.1 N GLUCOSE [id number] 17:19:00* Test Item Value Reference Range Interpretation Comme nts GLUCOSE BEDSIDE (test code = GLUBED) 278 MG/DL 70-110 H Performed by cer tified embossograph operator at [facility] GLUCOSE [id number] 12:43:00* Test Item Value Reference Range Interpretation Comme nts GLUCOSE BEDSIDE (test code = GLUBED) 303 MG/DL 70-110 H Performed by cer tified embossograph operator at [facility] GLUCOSE [id number] 05:56:00* Test Item Value Reference Range Interpretation Comme nts GLUCOSE BEDSIDE (test code = GLUBED) 239 MG/DL 70-110 H Performed by cer tified embossograph operator at [facility] GLUCOSE [id number] 00:22:00* Test Item Value Reference Range Interpretation Comme nts GLUCOSE BEDSIDE (test code = GLUBED) 238 MG/DL 70-110 H Performed by cer tified embossograph operator at [facility] COMPREHENSIVE METABOLIC [id number] 14:42:00* Test Item Value Reference Range Interpretation Comme nts SODIUM (test code = NA) 138 mEq/L 134-147 N POTASSIUM (test code = K) 3.5 mEq/L 3.4-5.0 N CHLORIDE (test code = CL) 109 mEq/L 100-108 H CARBON DIOXIDE (test code = CO2) 23 mEq/l 21-33 N ANION GAP (test code = GAP) 10 0-20 N GLUCOSE (test code = GLU) 201 mg/dL 77-141 H BLOOD UREA NITROGEN (test code = BUN) 14 mg/dL 7-25 N GLOMERULAR FILTRATION RATE (test code = GFR) 95.2 70-80 H The Glomerular Filtration Rate is a calculated parameterbased on serum Creatinine, patient age and sex. GFR valuesless than 60 mL/min/1.73 square meters are indicative ofChronic Kidney Disease. Values less than 15 mL/min/1.73square meters indicate Kidney failure. The calculation forGFR is based on the CKD-EPI (202) calculation. This formulais race indifferent and is the recommended formula for GFRby the National Kidney Foundation for Adults.The GFR will not calculate if the sex is unknown or if thepatient's age is <18 years. CREATININE (test code = CREAT) 0.8 mg/dL 0.6-1.3 N TOTAL PROTEIN (test code = PROT) 6.7 g/dL 6.4-8.2 N ALBUMIN (test code = ALB) 1.90 g/dL 3.4-5.0 L CALCIUM (test code = CA) 7.6 mg/dL 8.0-10.5 L BILIRUBIN TOTAL (test code = BILT) 1.10 mg/dL 0.0-1.0 H SGOT/AST (test code = AST) 57 IUnit/L 8-34 H SGPT/ALT (test code = ALT) 38 IUnit/L 10-49 ALKALINE PHOSPHATASE TOTAL (test code = ALKP) 122 IUnit/L 20-125 N CBC W/AUTO [id number] 14:24:00* Test Item Value Reference Range Interpretation Comme nts WHITE BLOOD CELL (test code = WBC) 15.6 x10 3/uL 4.5-11.0 H RED BLOOD CELL (test code = RBC) 2.89 x10 6/uL 4.00-5.60 L HEMOGLOBIN (test code = HGB) 8.8 g/dL 12.5-16.9 L HEMATOCRIT (test code = HCT) 25.5 % 37.5-50.7 L MEAN CELL VOLUME (test code = MCV) 88.2 fL 81.0-99.0 N MEAN CELL HGB (test code = MCH) 30.4 pg 27.0-33.0 N MEAN CELL HGB CONCETRATION (test code = MCHC) 34.5 g/dL 33.0-37.0 N RED CELL DISTRIBUTION WIDTH CV (test code = RDW) 14.4 % 11.5-14.5 N RED CELL DISTRIBUTION WIDTH SD (test code = RDW-SD) 44.3 fL 37.0-54.0 N PLATELET COUNT (test code = PLT) 377 x10 3/uL 150-400 N MEAN PLATELET VOLUME (test code = MPV) 10.7 fL 7.0-9.0 H NEUTROPHIL % (test code = NT%) 78.7 % 56.0-77.0 H IMMATURE GRANULOCYTE % (test code = IG%) 1.2 % 0.0-2.0 N LYMPHOCYTE % (test code = LY%) 11.8 % 14.0-32.0 L MONOCYTE % (test code = MO%) 7.4 % 4.8-9.0 N EOSINOPHIL % (test code = EO%) 0.6 % 0.3-3.7 N BASOPHIL % (test code = BA%) 0.3 % 0.0-2.0 N NUCLEATED RBC % (test code = NRBC%) 0.1 % 0-0 H NEUTROPHIL # (test code = NT#) 12.30 x10 3/uL 2.0-7.6 H IMMATURE GRANULOCYTE # (test code = IG#) 0.19 x10 3/uL 0.00-0.03 H LYMPHOCYTE # (test code = LY#) 1.85 x10 3/uL 1.0-3.8 N MONOCYTE # (test code = MO#) 1.15 x10 3/uL 0.1-0.8 H EOSINOPHIL # (test code = EO#) 0.09 x10 3/uL 0.0-0.2 N BASOPHIL # (test code = BA#) 0.04 x10 3/uL 0.0-0.2 N NUCLEATED RBC # (test code = NRBC#) 0.02 x10 3/uL 0.0-0.1 N - XR ABDOMEN 1V (KU)2023-08-12 12:07:00 [facility] 1955 Sex: M FAX: Bryce Serrano MD [phone] [place]: St: ADM Name: MISSY CANALES [facility] : 1955 Age/S: 68/M [address] [place] [address] Bl Unit #: [id number] Loc: G.M[address] [place] [address] Phys: Raphael Ly MD Acct: [id number] Dis Date: Status: ADM IN PHONE #: [phone] Exam Date: 08/12/2023 1146 FAX #: [phone] Reason: TO CONFIRM HOBB PLACEMENT EXAMS: CPT CODE: [id number] XR ABDOMEN 1V (KUB) 88331 H 20 TIME OF STUDY: 08/12/2023 11:28 AM REASON FOR EXAM: TO CONFIRM HOBB PLACEMENT COMPARISON: August 11 5:00 AM. Limited view of the abdomen demonstrates Dobbhoff tube in place with the tip in the 3rd portion of the duodenum. Mild diffuse gaseous dilatation of small and large bowel. IMPRESSION: 1. As above. at 1207 Reported and signedby: Bunny Delgado M.D. CC: Bryce Hennessy MD Technologist: Triny Isaac, RT(R); RT Sri(R) Trnscrd Date/Time/By: 08/12/2023 (7152) : By: [email or web address] Orig Print D/T: S: 08/12/2023 (4544) PAGE 1 Signed Report - XR ABDOMEN 1V (KUB)2023-08-12 07:17:00 [facility] : 1955 Sex: M FAX:Bryce Serrano MD [phone] [place]: St: ADM Name: MISSY CANALES [facility] : 1955 Age/S: 68/M [address] [place] [address] Unit #: [id number] Loc: G.[address] [place] [address] Phys: Raphael Ly MD Acct: [id number] Dis Date: Status: ADM IN PHONE #: [phone] Exam Date: 08/12/2023523 FAX #: [phone] Reason: DOBHOFF REINSERTION-PLACEMENT EXAMS: CPT CODE: [id number] XR ABDOMEN 1V (KUB) 22295 Location: H 31 Exam: ABDOMEN AP History: Dobbhoff reinsertion Comparison: Abdominal x-ray from prior dayFindings: Slight elevation of the right hemidiaphragm. The Dobbhoff tube terminates at the level ofthe duodenal bulb. Multiple gas-filled distended colonic loops are redemonstrated, slightly less in extent compared to prior exam. Small tubes/drains superimposes the pelvis. The osseous structures appear normal. Impression: 1. Dobbhoff tube tip at the level of the duodenal bulb. 2. Moderate colonic ileus, improved. at 0717 Reported and signed by: Georgia Santos M.D. CC: Bryce Hennessy MD Technologist: Martine Guan RT(R) Trnscrd Date/Time/By: 08/12/2023 (716) : By: [email or web address] Orig Print D/T: S: 08/12/2023 (719) PAGE 1 Signed ReportGLUCOSE [id number] 06:21:00* Test Item Value Reference Range Interpretation Comme nts GLUCOSE BEDSIDE (test code = GLUBED) 177 MG/DL 70-110 H Performed by [facility] tified embossograph operator at [facility] GLUCOSE [id number] 01:15:00* Test Item Value Reference Range Interpretation Comme nts GLUCOSE BEDSIDE (test code = GLUBED) 191 MG/DL 70-110 H Performed by [facility] embossograph operator at [facility] GLUCOSE [id number] 23:20:00* Test Item Value Reference Range Interpretation Comme nts GLUCOSE BEDSIDE (test code = GLUBED) 144 MG/DL 70-110 H Performed by [facility] embossograph operator at [facility] - XR ABDOMEN 1V (KUB)2023-08-11 16:58:00 [facility] : 1955 Sex: M FAX: Bryce Serrano MD [phone] [place]: St: ADM Name: MISSY CANALES [facility] : 1955 Age/S: 68/M [address] [place] [address] Bl Unit #: [id number] Loc: [address] [address] Phys: Raphael Ly MD Acct: [id number] Dis Date: Status: ADM IN PHONE #: [phone] Exam Date: 08/11/20231627 FAX #: [phone] Reason: TO CONFIRM HOB PLACEMENT EXAMS: CPT CODE: [id number] XR ABDOMEN 1V (KUB) 32733 EXAMINATION: - XR ABDOMEN 1V (KUB) CLINICAL INDICATION: Male, 68 years old with TO CONFIRM HOB PLACEMENT COMPARISON: None FINDINGS: Single view(s) of the abdomen submitted. Medical devices: There are 2 right-sided pigtail catheters towards the expected gallbladder region. Feeding tube is localized towards the duodenum. Bowel gas pattern: No ileus, obstruction, or impaction. Calcifications: No renal or ureteric calculi appreciated. Bones: Mineralization is appropriate. No acute bony abnormality. IMPRESSION: Feeding tube appears to terminate appropriately towards the 1st portion of duodenum. at 1658 Reported and signed by: Dallas Messer M.D. CC: Bryce Hennessy MD Technologist: RT Sri(Kaylene) Trnscrd Date/Time/By: 08/11/2023 (1657) : By: [email or web address] Orig Print D/T: S: 08/11/2023 (5329) PAGE 1 Signed ReportGLUCOSE [id number] 10:57:00* Test Item Value Reference Range Interpretation Comme nts GLUCOSE BEDSIDE (test code = GLUBED) 156 MG/DL 70-110 H Performed by cer tified embossograph operator at [facility] GLUCOSE [id number] 05:40:00* Test Item Value Reference Range Interpretation Comme nts GLUCOSE BEDSIDE (test code = GLUBED) 162 MG/DL 70-110 H Performed by cer tified embossograph operator at [facility] GLUCOSE [id number] 23:46:00* Test Item Value Reference Range Interpretation Comme nts GLUCOSE BEDSIDE (test code = GLUBED) 155 MG/DL 70-110 H Performed by cer tified embossograph operator at [facility] GLUCOSE [id number] 18:12:00* Test Item Value Reference Range Interpretation Comme nts GLUCOSE BEDSIDE (test code = GLUBED) 134 MG/DL 70-110 H Performed by cer tified embossograph operator at [facility] GLUCOSE [id number] 14:32:00* Test Item Value Reference Range Interpretation Comme nts GLUCOSE BEDSIDE (test code = GLUBED) 206 MG/DL 70-110 H Performed by cer tified embossograph operator at [facility] GLUCOSE [id number] 10:04:00* Test Item Value Reference Range Interpretation Comme nts GLUCOSE BEDSIDE (test code = GLUBED) 193 MG/DL 70-110 H Performed by cer tified embossograph operator at [facility] GLUCOSE [id number] 06:45:00* Test Item Value Reference Range Interpretation Comme nts GLUCOSE BEDSIDE (test code = GLUBED) 139 MG/DL 70-110 H Performed by cer tified embossograph operator at [facility] BASIC METABOLIC [id number] 04:51:00* Test Item Value Reference Range Interpretation Comme nts SODIUM (test code = NA) 147 mEq/L 134-147 N POTASSIUM (test code = K) 3.6 mEq/L 3.4-5.0 N CHLORIDE (test code = CL) 118 mEq/L 100-108 H CARBON DIOXIDE (test code = CO2) 20 mEq/l 21-33 L ANION GAP (test code = GAP) 12 0-20 N GLUCOSE (test code = GLU) 159 mg/dL 77-141 H BLOOD UREA NITROGEN (test code = BUN) 18 mg/dL 7-25 N GLOMERULAR FILTRATION RATE (test code = GFR) 81.0 70-80 H The Glomerular Filtration Rate is a calculated parameterbased on serum Creatinine, patient age and sex. GFR valuesless than 60 mL/min/1.73 square meters are indicative ofChronic Kidney Disease. Values less than 15 mL/min/1.73square meters indicate Kidney failure. The calculation forGFR is based on the CKD-EPI (202) calculation. This formulais race indifferent and is the recommended formula for GFRby the National Kidney Foundation for Adults.The GFR will not calculate if the sex is unknown or if thepatient's age is <18 years. CREATININE (test code = CREAT) 1.0 mg/dL 0.6-1.3 N CALCIUM (test code = CA) 8.1 mg/dL 8.0-10.5 N CBC W/AUTO [id number] 04:36:00* Test Item Value Reference Range Interpretation Comme nts WHITE BLOOD CELL (test code = WBC) 12.2 x10 3/uL 4.5-11.0 H RED BLOOD CELL (test code = RBC) 2.94 x10 6/uL 4.00-5.60 L HEMOGLOBIN (test code = HGB) 8.8 g/dL 12.5-16.9 L HEMATOCRIT (test code = HCT) 26.5 % 37.5-50.7 L MEAN CELL VOLUME (test code = MCV) 90.1 fL 81.0-99.0 N MEAN CELL HGB (test code = MCH) 29.9 pg 27.0-33.0 N MEAN CELL HGB CONCETRATION (test code = MCHC) 33.2 g/dL 33.0-37.0 N RED CELL DISTRIBUTION WIDTH CV (test code = RDW) 14.6 % 11.5-14.5 H RED CELL DISTRIBUTION WIDTH SD (test code = RDW-SD) 47.1 fL 37.0-54.0 N PLATELET COUNT (test code = PLT) 315 x10 3/uL 150-400 N MEAN PLATELET VOLUME (test c ode = MPV) 10.7 fL 7.0-9.0 H NEUTROPHIL % (test code = NT%) 73.0 % 56.0-77.0 N IMMATURE GRANULOCYTE % (test code = IG%) 0.7 % 0.0-2.0 N LYMPHOCYTE % (test code = LY%) 17.2 % 14.0-32.0 N MONOCYTE % (test code = MO%) 7.4 % 4.8-9.0 N EOSINOPHIL % (test code = EO%) 1.5 % 0.3-3.7 N BASOPHIL % (test code = BA%) 0.2 % 0.0-2.0 N NUCLEATED RBC % (test code = NRBC%) 0.2 % 0-0 H NEUTROPHIL # (test code = NT#) 8.86 x10 3/uL 2.0-7.6 H IMMATURE GRANULOCYTE # (test code = IG#) 0.09 x10 3/uL 0.00-0.03 H LYMPHOCYTE # (test code = LY#) 2.09 x10 3/uL 1.0-3.8 N MONOCYTE # (test code = MO#) 0.90 x10 3/uL 0.1-0.8 H EOSINOPHIL # (test code = EO#) 0.18 x10 3/uL 0.0-0.2 N BASOPHIL # (test code = BA#) 0.03 x10 3/uL 0.0-0.2 N NUCLEATED RBC # (test code = NRBC#) 0.02 x10 3/uL 0.0-0.1 N GLUCOSE [id number] 00:15:00* Test Item Value Reference Range Interpretation Comme [facility] GLUCOSE BEDSIDE (test code = GLUBED) 117 MG/DL 70-110 H Performed by cer tified embossograph operator at [facility] GLUCOSE [id number] 18:04:00* Test Item Value Reference Range Interpretation Comme [facility] GLUCOSE BEDSIDE (test code = GLUBED) 106 MG/DL 70-110 N Performed by [facility] tified embossograph operator at [facility] - DUP VEIN UNI/[id number] 11:34:00 [facility] : 1955 Sex: M Name:MISSY CANALES [facility] : 1955 Age/S: 68 / M [address] [place] [address] Unit #: [id number]: TIA Morel [address] Phys: Jake Contreras Acct: [id number] Dis Date: Status: ADM IN PHONE #: [phone] Exam Date: 08/09/2023 1110 FAX #: [phone] Reason: edema right upper ex EXAMS:CPT CODE: [id number] DUP VEIN UNI/LTD 06426 EXAM: - DUP VEIN UNI/LTD HISTORY: edema right upper ex COMPARISON: None TECHNIQUE: Grayscale, Doppler, and color Doppler ultrasound of the veins of the armswere performed. Location: H 100 FINDINGS: The axillary, subclavian, brachial, cephalic veins demonstrate good color flow with augmentation. The right radial and ulnar veins are unremarkable. There isno evidence to suggest deep venous thrombosis. There is superficial venous thrombosis in the right the basilic vein IMPRESSION :No evidence for deep venous thrombosis. Superficial venous thrombosis of the right the left basilic vein. at 1134 Reported and signed by: Jarad Kang M.D. CC: Jake WELLER; Bryce Hennessy MD Technologist: Madelaine Fitch RDMS(AB) Trnscb Date/Time: 08/09/2023 (1134) t.[email or web address] Orig Print D/T: S: 08/09/2023 (1137) Probe: PAGE 1 Signed ReportGLUCOSE BEDSIDE 2023-08-09 11:07:00* Test Item Value Reference Range Interpretation Comme nts GLUCOSE BEDSIDE (test code = GLUBED) 160 MG/DL 70-110 H Performed by delia albert embossograph operator at [facility] BASIC METABOLIC [id number] 05:33:00* Test Item Value Reference Range Interpretation Comme nts SODIUM (test code = NA) 154 mEq/L 134-147 H POTASSIUM (test code = K) 3.7 mEq/L 3.4-5.0 N CHLORIDE (test code = CL) 123 mEq/L 100-108 H CARBON DIOXIDE (test code = CO2) 20 mEq/l 21-33 L ANION GAP (test code = GAP) 14 0-20 N GLUCOSE (test code = GLU) 146 mg/dL 77-141 H BLOOD UREA NITROGEN (test code = BUN) 20 mg/dL 7-25 N GLOMERULAR FILTRATION RATE (test code = GFR) 81.0 70-80 H The Glomerular Filtration Rate is a calculated parameterbased on serum Creatinine, patient age and sex. GFR valuesless than 60 mL/min/1.73 square meters are indicative ofChronic Kidney Disease. Values less than 15 mL/min/1.73square meters indicate Kidney failure. The calculation forGFR is based on the CKD-EPI (2020) calculation. This formulais race indifferent and is the recommended formula for GFRby the National Kidney Foundation for Adults.The GFR will not calculate if the sex is unknown or if thepatient's age is <18 years. CREATININE (test code = CREAT) 1.0 mg/dL 0.6-1.3 N CALCIUM (test code = CA) 8.4 mg/dL 8.0-10.5 N GLUCOSE [id number] 05:20:00* Test Item Value Reference Range Interpretation Comme nts GLUCOSE BEDSIDE (test code = GLUBED) 119 MG/DL 70-110 H Performed by cer tified embossograph operator at [facility] HGB [id number] 05:16:00* Test Item Value Reference Range Interpretation Comme nts HEMOGLOBIN (test code = HGB) 9.6 g/dL 12.5-16.9 L HEMATOCRIT (test code = HCT) 28.7 % 37.5-50.7 L GLUCOSE [id number] 23:27:00* Test Item Value Reference Range Interpretation Comme nts GLUCOSE BEDSIDE (test code = GLUBED) 135 MG/DL 70-110 H Performed by cer tified embossograph operator at [facility] HGB [id number] 20:52:00* Test Item Value Reference Range Interpretation Comme nts HEMOGLOBIN (test code = HGB) 9.3 g/dL 12.5-16.9 L HEMATOCRIT (test code = HCT) 27.9 % 37.5-50.7 L - CT ABD PELVIS W WO [id number] 15:45:00 [facility] : 1955 Sex: M Name:MISSY CANALES [facility] Justin Torres : 1955 Age/S: 68 / M [address] [place] [address] Unit #: [id number]: TIA Morel [address] Phys: Jake Contreras Acct: [id number] Dis Date: Status: ADM IN PHONE #: [phone] Exam Date: 08/08/20231736 FAX #: [phone] Reason: grant tube placement EXAMS: CPT CODE: [id number] CT ABD PELVIS W WO CONT 65752 - CT ABD PELVIS W WO CONT HISTORY: grant tube placement COMPARISON: None. TECHNIQUE: Axial images of the abdomen and pelvis were obtained withoutand with contrast. Bleeding protocol. Coronal and sagittal reformats were provided. One or more of the following dose reduction techniques were used: Automated exposure control, adjustment of the mA and/or kV according to patient size, and/or utilization of iterative reconstruction technique. FINDINGS: Lower thorax: Bilateral lower lobe dependent subsegmental atelectasis. Left atrial enlargement.Severe coronary artery calcifications. There are aortic valvular calcifications. Small posterior pericardial effusion measuring up to 1 cm in thickness. Hepatobiliary: Grossly unchanged approximately4 x 4 cm intrahepatic collection within segment 8 most consistent with a biloma/abscess related to gallbladder perforation seen on recent MRI. Percutaneous drain is at the right lateral margin with sideholes communicating with the collection. No active contrast extravasation is identified. No biliary ductal dilatation. Gallbladder: Status post cholecystostomy tube. Gallbladder is distended with hyperdense contents. No active hemorrhage is identified. Spleen: No splenomegaly. Pancreas: No focal mass, ductal dilatation, peripancreatic inflammation. Adrenals: No nodules. Kidneys/ureters: No hydronephrosis, nephrolithiasis, or solid renal lesion. Bowel: A large amount of stool is seen withinthe rectum. A small amount of hyperdense material is seen at the 2nd segment of the duodenum. 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 The appendix is normal. PAGE 1 Signed Report (CONTINUED) Name: MISSY CANALES [facility] : 1955 Age/S: 68 / M [address] [place] [address] Blvd Unit #: [id number] Loc: [place] [address] Phys: Jake Contreras Acct: [id number] Dis Date: Status: ADM IN PHONE #: [phone] Exam Date: 08/08/20231736 FAX #: [phone] Reason: grant tube placement EXAMS: CPT CODE: [id number] CT ABD PELVIS W WO CONT 00649 (Continued) Pelvic organs/bladder: Sheldon catheter in place. Urinary bladder is nondistended. Note is made of prostatic enlargement. Vessels: Note is normal in caliber with severe atherosclerotic calcifications extending into the iliac vessels. IVC is unremarkable. Lymph nodes: No lymphadenopathy. Peritoneum/Retroperitoneum: No ascites or free air is identified. Bones/soft tissues: There are changes of the spine. No acute osseous abnormality. IMPRESSION: No evidence of acute hemorrhage within the the liver and the gallbladder. Hyperdense contents within the gallbladder and 2nd segment of the duodenum may represent contrast and/or blood products. Large amount of stool within the rectum. LOCATION: C4 at 1545 Reported and signed by: Jami Degroot M.D. CC: Jake WELLER; Bryce Hennessy MD Technologist:RT Jojo(R)(CT) CTDI: DLP: Trnscb Date/Time: 08/08/2023 (1545) JostinJJY Orig Print D/T: S: 08/08/2023 (173) PAGE 2 Signed ReportBASIC METABOLIC [id number] 15:19:00* Test Item Value Reference Range Interpretation Comme nts SODIUM (test code = NA) 155 mEq/L 134-147 H POTASSIUM (test code = K) 3.9 mEq/L 3.4-5.0 N CHLORIDE (test code = CL) 124 mEq/L 100-108 H CARBON DIOXIDE (test code = CO2) 22 mEq/l 21-33 N ANION GAP (test code = GAP) 13 0-20 N GLUCOSE (test code = GLU) 184 mg/dL 77-141 H BLOOD UREA NITROGEN (test code = BUN) 26 mg/dL 7-25 H GLOMERULAR FILTRATION RATE (test code = GFR) 99.1 70-80 H The Glomerular Filtration Rate is a calculated parameterbased on serum Creatinine, patient age and sex. GFR valuesless than 60 mL/min/1.73 square meters are indicative ofChronic Kidney Disease. Values less than 15 mL/min/1.73square meters indicate Kidney failure. The calculation forGFR is based on the CKD-EPI (2020) calculation. This formulais race indifferent and is the recommended formula for GFRby the National Kidney Foundation for Adults.The GFR will not calculate if the sex is unknown or if thepatient's age is <18 years. CREATININE (test code = CREAT) 0.7 mg/dL 0.6-1.3 N CALCIUM (test code = CA) 8.1 mg/dL 8.0-10.5 N HGB [id number] 15:04:00* Test Item Value Reference Range Interpretation Comme nts HEMOGLOBIN (test code = HGB) 9.5 g/dL 12.5-16.9 L HEMATOCRIT (test code = HCT) 28.3 % 37.5-50.7 L GLUCOSE [id number] 12:14:00* Test Item Value Reference Range Interpretation Comme nts GLUCOSE BEDSIDE (test code = GLUBED) 162 MG/DL 70-110 H Performed by cer bety embossograph operator at [facility] COMPREHENSIVE METABOLIC [id number] 05:51:00* Test Item Value Reference Range Interpretation Comme nts SODIUM (test code = NA) 155 mEq/L 134-147 H POTASSIUM (test code = K) 3.5 mEq/L 3.4-5.0 CHLORIDE (test code = CL) 124 mEq/L 100-108 H CARBON DIOXIDE (test code = CO2) 20 mEq/l 21-33 L ANION GAP (test code = GAP) 15 0-20 N GLUCOSE (test code = GLU) 198 mg/dL 77-141 H BLOOD UREA NITROGEN (test code = BUN) 27 mg/dL 7-25 H GLOMERULAR FILTRATION RATE (test code = GFR) 65.1 70-80 L The Glomerular Filtration Rate is a calculated parameterbased on serum Creatinine, patient age and sex. GFR valuesless than 60 mL/min/1.73 square meters are indicative ofChronic Kidney Disease. Values less than 15 mL/min/1.73square meters indicate Kidney failure. The calculation forGFR is based on the CKD-EPI (2020) calculation. This formulais race indifferent and is the recommended formula for GFRby the National Kidney Foundation for Adults.The GFR will not calculate if the sex is unknown or if thepatient's age is <18 years. CREATININE (test code = CREAT) 1.2 mg/dL 0.6-1.3 N TOTAL PROTEIN (test code = PROT) 6.1 g/dL 6.4-8.2 L ALBUMIN (test code = ALB) 1.90 g/dL 3.4-5.0 L CALCIUM (test code = CA) 7.9 mg/dL 8.0-10.5 L BILIRUBIN TOTAL (test code = BILT) 1.30 mg/dL 0.0-1.0 H SGOT/AST (test code = AST) 138 IUnit/L 8-34 H SGPT/ALT (test code = ALT) 101 IUnit/L 10-49 H ALKALINE PHOSPHATASE TOTAL (test code = ALKP) 144 IUnit/L 20-125 H LACTIC ACID [id number] 05:31:00* Test Item Value Reference Range Interpretation Comme nts LACTIC ACID REPEAT (test cod e = LACTR) 2.0 mmol/l 0.4-1.9 H CBC W/AUTO [id number] 05:16:00* Test Item Value Reference Range Interpretation Comme nts WHITE BLOOD CELL (test code = WBC) 14.5 x10 3/uL 4.5-11.0 H RED BLOOD CELL (test code = RBC) 3.13 x10 6/uL 4.00-5.60 L HEMOGLOBIN (test code = HGB) 9.5 g/dL 12.5-16.9 L HEMATOCRIT (test code = HCT) 28.6 % 37.5-50.7 L MEAN CELL VOLUME (test code = MCV) 91.4 fL 81.0-99.0 N MEAN CELL HGB (test code = MCH) 30.4 pg 27.0-33.0 N MEAN CELL HGB CONCETRATION (test code = MCHC) 33.2 g/dL 33.0-37.0 N RED CELL DISTRIBUTION WIDTH CV (test code = RDW) 14.7 % 11.5-14.5 H RED CELL DISTRIBUTION WIDTH SD (test code = RDW-SD) 48.8 fL 37.0-54.0 N PLATELET COUNT (test code = PLT) 216 x10 3/uL 150-400 N MEAN PLATELET VOLUME (test code = MPV) 10.9 fL 7.0-9.0 H NEUTROPHIL % (test code = NT%) 80.0 % 56.0-77.0 H IMMATURE GRANULOCYTE % (test code = IG%) 1.1 % 0.0-2.0 N LYMPHOCYTE % (test code = LY%) 10.6 % 14.0-32.0 L MONOCYTE % (test code = MO%) 7.6 % 4.8-9.0 N EOSINOPHIL % (test code = EO%) 0.6 % 0.3-3.7 N BASOPHIL % (test code = BA%) 0.1 % 0.0-2.0 N NUCLEATED RBC % (test code = NRBC%) 0.0 % 0-0 N NEUTROPHIL # (test code = NT#) 11.61 x10 3/uL 2.0-7.6 H IMMATURE GRANULOCYTE # (test code = IG#) 0.16 x10 3/uL 0.00-0.03 H LYMPHOCYTE # (test code = LY#) 1.54 x10 3/uL 1.0-3.8 N MONOCYTE # (test code = MO#) 1.10 x10 3/uL 0.1-0.8 H EOSINOPHIL # (test code = EO#) 0.08 x10 3/uL 0.0-0.2 N BASOPHIL # (test code = BA#) 0.02 x10 3/uL 0.0-0.2 N NUCLEATED RBC # (test code = NRBC#) 0.00 x10 3/uL 0.0-0.1 N POC VENOUS BLOOD [id number] 05:14:00* Test Item Value Reference Range Interpretation Comme nts POC VENOUS BLOOD GAS PH (lacey t code = POCPHV) 7.310 7.33-7.45 L POC VENOUS BLOOD GAS PCO2 (t est code = QHSLIW9X) 43.7 mmHg 43-47 N POC VENOUS BLOOD GAS PO2 (te st code = QFWQS2A) 30.0 mmHG 10-50 N POC TCO2 VENOUS (test code = OSPHAT7O) 23.3 POC HCO3 VENOUS (test code = SWSYSP3C) 22.0 MMOL/L 22-27 N POC BASE EXCESS VENOUS (test code = POCBEV) -4.2 MMOL/L -4.0-4.0 L POC O2 SATURATION VENOUS (te st code = GHHX1TI) 51.5 % 60-80 L VENOUS BLOOD GAS FIO2 (test code = FIO2V) 40.0 % VENOUS BLOOD GAS DELIVERY (t est code = DELV) BiPAP VENOUS BLOOD GAS PEEP (test code = PEEPV) 5 cmH2O VENOUS BLOOD GAS SITE (test code = SITEV) R Brach GLUCOSE [id number] 00:00:00* Test Item Value Reference Range Interpretation Comme nts GLUCOSE BEDSIDE (test code = GLUBED) 190 MG/DL 70-110 H Performed by Bonafide embossograph operator at [facility] LACTIC [id number] 23:55:00* Test Item Value Reference Range Interpretation Comme nts LACTIC ACID (test code = LACT) 3.5 mmol/L 0.4-1.9 H GLUCOSE [id number] 18:51:00* Test Item Value Reference Range Interpretation Comme nts GLUCOSE BEDSIDE (test code = GLUBED) 295 MG/DL 70-110 H Performed by Bonafide embossograph operator at [facility] LACTIC ACID [id number] 18:34:00* Test Item Value Reference Range Interpretation Comme nts LACTIC ACID REPEAT (test cod e = LACTR) 3.1 mmol/l 0.4-1.9 H GLUCOSE [id number] 18:28:00* Test Item Value Reference Range Interpretation Comme nts GLUCOSE BEDSIDE (test code = GLUBED) 371 MG/DL 70-110 H Performed by Bonafide embossograph operator at [facility] UA RFLX MICR CULT IF [id number] 14:09:00* Test Item Value Reference Range Interpretation Comme nts UA COLOR (test code = COLU) SANDRA YEL/STRAW A UA APPEARANCE (test code = APPU) CLOUDY CLEAR A UA GLUCOSE DIPSTICK (test co de = DGLUU) 3+ NEGATIVE A UA BILIRUBIN DIPSTICK (test code = BILU) NEGATIVE NEGATIVE UA KETONE DIPSTICK (test cod e = KETU) NEGATIVE NEGATIVE UA SPECIFIC GRAVITY (test co de = SGU) 1.024 1.005-1.030 N UA BLOOD DIPSTICK (test code = ERIKA) 3+ NEGATIVE A UA PH DIPSTICK (test code = CALDERON) 5.0 5.0-7.0 N UA PROTEIN DIPSTICK (test co de = PROU) 2+ NEGATIVE A UA UROBILINIOGEN DIPSTICK (t est code = URO) 0.2 mg/dL 0.2-1.0 UA NITRITE DIPSTICK (test co de = RAFFI) NEGATIVE NEGATIVE UA LEUKOCYTE ESTERASE DIPSTI CK (test code = LEUU) 1+ NEGATIVE A UA WBC (test code = WBCU) >50 WBC/HPF 0-3 A UA RBC (test code = RBCU) >50 RBC/HPF 0-3 A UA WBC NO REFLEX (test code = WBCUCL) >50 WBC/HPF 0-3 A UA BACTERIA (test code = BACU) 2+ /HPF NONE SEEN A UA SQUAMOUS CELLS (test code = SQU) 0-5 /HPF NONE SEEN UA MUCUS (test code = MUCU) TRACE /LPF NONE SEEN Indication for culture: RiskForSepsis-no oth src Temperature > 100.4 FSpecimen Description: STRAIGHT CATHACETONE [id number] 13:03:00* Test Item Value Reference Range Interpretation Comme nts ACETONE QUANT (test code = ACETN) NEGATIVE - <20 mg/dL mg/dL See_Comment [Automated message] The system which generated this result transmitted reference range: Neg - <20. The reference range was not used to interpret this result as normal/abnormal. LACTIC [id number] 13:01:00* Test Item Value Reference Range Interpretation Comme nts LACTIC ACID (test code = LACT) 3.2 mmol/L 0.4-1.9 H BASIC METABOLIC [id number] 13:00:00* Test Item Value Reference Range Interpretation Comme nts SODIUM (test code = NA) 152 mEq/L 134-147 H POTASSIUM (test code = K) 4.8 mEq/L 3.4-5.0 CHLORIDE (test code = CL) 124 mEq/L 100-108 H CARBON DIOXIDE (test code = CO2) 17 mEq/l 21-33 L ANION GAP (test code = GAP) 16 0-20 N GLUCOSE (test code = GLU) 380 mg/dL 77-141 H BLOOD UREA NITROGEN (test code = BUN) 26 mg/dL 7-25 H GLOMERULAR FILTRATION RATE (test code = GFR) 49.8 70-80 L The Glomerular Filtration Rate is a calculated parameterbased on serum Creatinine, patient age and sex. GFR valuesless than 60 mL/min/1.73 square meters are indicative ofChronic Kidney Disease. Values less than 15 mL/min/1.73square meters indicate Kidney failure. The calculation forGFR is based on the CKD-EPI (2020) calculation. This formulais race indifferent and is the recommended formula for GFRby the National Kidney Foundation for Adults.The GFR will not calculate if the sex is unknown or if thepatient's age is <18 years. CREATININE (test code = CREAT) 1.5 mg/dL 0.6-1.3 H CALCIUM (test code = CA) 8.3 mg/dL 8.0-10.5 N [id number] 13:00:00* Test Item Value Reference Range Interpretation Comme nts MAGNESIUM (test code = MAG) 2.17 mg/dL 1.6-2.6 N - XR ABDOMEN 1V (KUB)2023-08-07 12:38:00 [facility] 1955 Sex: M FAX: Sg Lu MD Howell: St: [facility] FAX: Bryce Serrano MD [phone] Name: MISSY CANALES [facility] : 1955 Age/S: 68/M [address] [place] [address] Unit #: [id number] Loc: G.M[address] [place] [address] Phys: Sg Medel MD Acct: [id number] Dis Date: Status: ADM IN PHONE #: [phone] Exam Date: 08/07/2023 1216 FAX #: [phone] Reason: DOBHOFF EXAMS: CPT CODE: [id number] XR ABDOMEN 1V (KUB) 18408 EXAM: ABDOMEN ONE VIEW INDICATION: DOBBHOFF LOCATION: B2 COMPARISON: None available TECHNIQUE: AP view of the abdomen. FINDINGS: The enteric tube tip overlies the stomach. There is mild distention of the bowel loops throughout the abdomen. No pneumoperitoneum is identified. No abnormal calcifications. There are 2 pigtail catheters noted in the right upper quadrant. The osseous structures are unremarkable. IMPRESSION: Enteric tube tip overlies the stomach. Mild distention of the bowel loops throughout the abdomen. at 1238 Repo rted and signed by: Daria Pratt M.D. CC: Sg Medel MD; Bryce Hennessy MD Technologist: Enedelia Cameron, RT(R); Lyn Vital RT(R) Trnscrd Date/Time/By: 08/07/2023 (1238) : By: 16 Orig Print D/T: S: 08/07/2023 (5858) PAGE 1 Signed Report- MRI BRAIN W/O [id number] 11:41:00 [facility] 1955 Sex: M FAX: Jake Lees Howell: St: ADM FAX: Bryce Serrano MD [phone] Name: MISSY CANALES [facility] : 1955 Age/S: 68/M [address] [place] [address] Unit #: [id number] Loc: [address] [address] Phys: Jake Contreras Acct: [id number] Dis Date: Status: ADM IN PHONE #: [phone] Exam Date: 08/07/2023 1132 FAX #: [phone] Reason: ams EXAMS: CPT CODE: [id number] MRI BRAIN W/O CONT 81035 EXAM: MRI BRAIN WITHOUT CONTRAST INDICATION: Altered mental status COMPARISON: August 06, 2023 TECHNIQUE: Multiplanar, multisequence MRI of the brain was obtained without administration of intravenous contrast. IV contrast: None FINDINGS: There is a small focus of restricted diffusion in the left guo radiata with corresponding hyperintense T2 changes consistent with subacute ischemia. There are areas of hyperintense T2 changes within the supratentorial white matter likely representing chronic microvascular ischemic changes. The ventricles and sulci are prominent consistent with diffuse cerebral volume loss. No midline shift or mass effect. The basal cisterns are patent. The posterior fossaand 4th ventricle are normal. No intracranial hemorrhage. Intracranial flow voids are normal. The paranasal sinuses and mastoid air cells are clear. No calvarial lesions are identified. The orbits and globes are unremarkable. IMPRESSION: Small focus of subacute ischemia in the left guo radiata. Chronic microvascular ischemic changes and diffuse cerebral volume loss. LOCATION: A 1 at 1141 Reported and signed by: Daria Pratt M.D. CC: Jake WELLER; Bryce Hennessy MD Technologist: Juan Luis Ortega, RT(R)(CT)(MR) Trnsc rd Date/Time/By: 08/07/2023 (1141) : By: 16 [facility] Print D/T: S: 08/07/2023 (1149) PAGE 1 Signed ReportGLUCOSE [id number] 10:13:00* Test Item Value Reference Range Interpretation Comme nts GLUCOSE BEDSIDE (test code = GLUBED) 337 MG/DL 70-110 H Performed by cer bety embossograph operator at [facility] BASIC METABOLIC [id number] 08:26:00* Test Item Value Reference Range Interpretation Comme nts SODIUM (test code = NA/ABG) 154 mmol/L 134-147 H POTASSIUM (test code = K/ABG) 4.3 mmol/L 3.4-5.0 N CHLORIDE (test code = CL/ABG) 130 mmol/L 100-108 H CREATININE ABG (test code = CREAABG) 1.2 mg/dL 0.8-1.3 N POC IONIZED CALCIUM (test co de = POCCA) 1.25 MMOL/L 1.12-1.32 N POC GLUCOSE (test code = POCGLU) 434 MG/DL 70-110 H HEMOGLOBIN [id number] 08:26:00* Test Item Value Reference Range Interpretation Comme nts HEMOGLOBIN ABG (test code = HGB/ABG) 11.9 G/DL 12.5-16.9 L [id number] 08:26:00* Test Item Value Reference Range Interpretation Comme nts HEMATOCRIT (test code = HCT/ABG) 35 % 37.5-50.7 L POC LACTIC [id number] 08:26:00* Test Item Value Reference Range Interpretation Comme nts POC LACTIC ACID (test code = POCLAC) 1.2 mmol/l 0.9-1.7 N POC ARTERIAL BLOOD [id number] 08:26:00* Test Item Value Reference Range Interpretation Comme nts POC ARTERIAL BLOOD GAS PH (t est code = POCPHA) 7.331 7.35-7.45 L POC ARTERIAL BLOOD GAS PCO2 (test code = XKQBNL5V) 28.9 mmHg 35.0-45 LL POC TCO2 ARTERIAL (test code = POCTCO2) 16.2 POC ARTERIAL BLOOD GAS PO2 ( test code = EBVSO9X) 173.3 mmHg 80-100.0 H POC HCO3 ARTERIAL (test code = AKJCGR8Y) 15.3 MMOL/L 22.0-26.0 LL POC BASE EXCESS (test code = POCBEA) -10.6 MMOL/L -4.0-4.0 L POC O2 SATURATION (test code = POCO2S) 99.5 % 90-100 N FIO2 (test code = FIO2A) 40.0 % PaO2/FiO2 (test code = OME8JCH4) 433.20 mm/Hg ABG DELIVERY (test code = VIC) BiPAP ABG VENT MODE (test code = MODEA) BiLevel ABG VENT RESP RATE (test cod e = RRA) 26 /MIN ABG PEEP (test code = PEEPA) 5 cmH2O ABG PRESSURE SUPPORT (test c ode = PSABG) 10 cmH2O ABG SITE (test code = SITEA) L Radial TASIA'S TEST (test code = ALLENS) Positive HGBA1C%2023-08-07 05:49:00* Test Item Value Reference Range Interpretation Comme [facility] HGBA1C% (test code = HGBA1C%) 8.2 %A1C 4.8-6.0 H VITAMIN [id number] 05:35:00* Test Item Value Reference Range Interpretation Comme [facility] VITAMIN B12 (test code = VITB12) 1126 pg/mL 193-986 H FOLIC [id number] 05:35:00* Test Item Value Reference Range Interpretation Comme nts FOLIC ACID (test code = FOL) 11.8 ng/mL 3.1-17.5 N COMPREHENSIVE METABOLIC [id number] 05:32:00* Test Item Value Reference Range Interpretation Comme nts SODIUM (test code = NA) 154 mEq/L 134-147 H POTASSIUM (test code = K) 3.9 mEq/L 3.4-5.0 N CHLORIDE (test code = CL) 122 mEq/L 100-108 H CARBON DIOXIDE (test code = CO2) 16 mEq/l 21-33 L ANION GAP (test code = GAP) 20 0-20 N GLUCOSE (test code = GLU) 294 mg/dL 77-141 H BLOOD UREA NITROGEN (test code = BUN) 20 mg/dL 7-25 N GLOMERULAR FILTRATION RATE (test code = GFR) 72.2 70-80 N The Glomerular Filtration Rate is a calculated parameterbased on serum Creatinine, patient age and sex. GFR valuesless than 60 mL/min/1.73 square meters are indicative ofChronic Kidney Disease. Values less than 15 mL/min/1.73square meters indicate Kidney failure. The calculation forGFR is based on the CKD-EPI (202) calculation. This formulais race indifferent and is the recommended formula for GFRby the National Kidney Foundation for Adults.The GFR will not calculate if the sex is unknown or if thepatient's age is <18 years. CREATININE (test code = CREAT) 1.1 mg/dL 0.6-1.3 N TOTAL PROTEIN (test code = PROT) 6.7 g/dL 6.4-8.2 N ALBUMIN (test code = ALB) 2.40 g/dL 3.4-5.0 L CALCIUM (test code = CA) 8.4 mg/dL 8.0-10.5 N BILIRUBIN TOTAL (test code = BILT) 2.50 mg/dL 0.0-1.0 H SGOT/AST (test code = AST) 175 IUnit/L 8-34 H SGPT/ALT (test code = ALT) 125 IUnit/L 10-49 H ALKALINE PHOSPHATASE TOTAL (test code = ALKP) 171 IUnit/L 20-125 H Comment: Fasting in AMLIPID PROFILE (CORONARY RISK)2023-08-07 05:32:00* Test Item Value Reference Range Interpretation Comme nts TRIGLYCERIDES (test code = TRIG) 144 mg/dL 40-150 N CHOLESTEROL (test code = CHOL) 125 mg/dL <200 CHOLESTEROL/HDL RATIO (test code = CHOLHDL) 15.06 RATIO 3.43-4.97 H RISK ASSOCIATED WITH CHOL/HDL RATIOS: RISK MALE FEMALE1/2 AVERAGE 3.43 3.27AVERAGE 4.97 4.442X AVERAGE 9.55 7.053X AVERAGE 23.39 11.04 NOTE THAT THE REFERENCE VALUE IS RELATEDTO RISK LEVELS RECOMMENDED BY THE NATL.HEART, LUNG, AND BLOOD INST. HDL CHOLESTEROL (test code = HDL) 8.3 MG/DL 40-60 L HDL Interpreta tion < 40.0 mg/dL Low (undesirable, high risk)> 60.0 mg/dL High (desirable, low risk) Reference interval for healthy adults was established by theNational Cholesterol Education Program (NCEP). LIPOPROTEIN LDL (test code = LDL) 92.0 mg/dL 0-100 N <100 [id number] 0-129 NEAR OPTIMAL/ABOVE [id number] [id number] HIGH>SF=623 VERY HIGH*Guidelines provided by the National Cholesterol EducationProgram Adult Treatment Panel III Comment: Fasting in AMCBC W/AUTO [id number] 05:12:00* Test Item Value Reference Range Interpretation Comme nts WHITE BLOOD CELL (test code = WBC) 17.7 x10 3/uL 4.5-11.0 H RED BLOOD CELL (test code = RBC) 3.75 x10 6/uL 4.00-5.60 L HEMOGLOBIN (test code = HGB) 11.4 g/dL 12.5-16.9 L HEMATOCRIT (test code = HCT) 34.6 % 37.5-50.7 L MEAN CELL VOLUME (test code = MCV) 92.3 fL 81.0-99.0 N MEAN CELL HGB (test code = MCH) 30.4 pg 27.0-33.0 N MEAN CELL HGB CONCETRATION (test code = MCHC) 32.9 g/dL 33.0-37.0 L RED CELL DISTRIBUTION WIDTH CV (test code = RDW) 14.6 % 11.5-14.5 H RED CELL DISTRIBUTION WIDTH SD (test code = RDW-SD) 48.9 fL 37.0-54.0 N PLATELET COUNT (test code = PLT) 216 x10 3/uL 150-400 N MEAN PLATELET VOLUME (test code = MPV) 11.3 fL 7.0-9.0 H NEUTROPHIL % (test code = NT%) 81.8 % 56.0-77.0 H IMMATURE GRANULOCYTE % (test code = IG%) 1.2 % 0.0-2.0 N LYMPHOCYTE % (test code = LY%) 9.5 % 14.0-32.0 L MONOCYTE % (test code = MO%) 7.3 % 4.8-9.0 N EOSINOPHIL % (test code = EO%) 0.0 % 0.3-3.7 L BASOPHIL % (test code = BA%) 0.2 % 0.0-2.0 N NUCLEATED RBC % (test code = NRBC%) 0.0 % 0-0 N NEUTROPHIL # (test code = NT#) 14.50 x10 3/uL 2.0-7.6 H IMMATURE GRANULOCYTE # (test code = IG#) 0.22 x10 3/uL 0.00-0.03 H LYMPHOCYTE # (test code = LY#) 1.68 x10 3/uL 1.0-3.8 N MONOCYTE # (test code = MO#) 1.29 x10 3/uL 0.1-0.8 H EOSINOPHIL # (test code = EO#) 0.00 x10 3/uL 0.0-0.2 N BASOPHIL # (test code = BA#) 0.03 x10 3/uL 0.0-0.2 N NUCLEATED RBC # (test code = NRBC#) 0.00 x10 3/uL 0.0-0.1 N - XR CHEST 1 [id number] 04:44:00 [facility] : 1955 Sex: M FAX: Leroy Vences MD [place]: St: ADM FAX: Bryce Serrano MD [phone] Name: MISSY CANALES [facility] : 1955 Age/S: 68/M [address] [place] [address] Unit #: [id number] Loc: .[address] [address] Phys: Leroy Vences MD Acct: [id number] Dis Date: Status: ADM IN PHONE #: [phone] Exam Date: 08/07/2023358 FAX #: [phone] Reason: Sepsis EXAMS: CPT CODE: [id number] XR CHEST 1 V 37092 AP Portable Chest Location Code M12 HISTORY: Sepsis FINDINGS: There are no infiltrates. There are no pleural effusions.There is no pneumothorax. Cardiac silhouette and mediastinum appear within normal limits. Sternotomy wires are in place. IMPRESSION: No active pulmonary findings. at 0444 Reported and signed by: Poncho Barrios M.D. CC: Leroy Vences MD; Bryce Hennessy MD Technologist: Amanda Issa RT(R) Trnscrd Date/Time/By: 08/07/2023(443) : By: [email or web address] Orig Print D/T: S: 08/07/2023 (044) PAGE 1 Signed Report PROTHROMBIN [id number] 03:58:00* Test Item Value Reference Range Interpretation Comme nts PROTHROMBIN TIME PATIENT (test code = PTP) 12.8 SECONDS 9.3-12.9 N INTERNATIONAL NORMAL RATIO (test code = INR) 1.2 0.8-1.2 N TARGET INR BY INDICATION Indication INR1. Prophylaxis of venous thrombosis 2.0 - 3.0 (orthopedic surgery), Prophylaxis of venous thrombosis (other than high-risk surgery), Treatment of Deep Vein Thrombosis/Pulmonary Embolism, Prevention of systemic embolism - Tissue heart valves, Acute Myocardial Infarction (to prevent systemic embolism), Valvular heart disease, Atrial Fibrillation, Bileaflet mechanical valve in aortic position.2. Mechanical prosthetic valves (high risk), 2.5 - 3.5 Presence of Lupus Anticoagulant or Antiphospholipid Antibodies, Prevention of systemic embolism - Acute Myocardial Infarction (to prevent recurrent infarct). THROMBOPLASTIN TIME [id number] 03:58:00* Test Item Value Reference Range Interpretation Comme [facility] THROMBOPLASTIN TIME PARTIAL (test code = PTT) 16.6 Seconds 25.0-39.5 L Therapeutic Rang e: 50.4 - 88.3 Seconds Effective 09/10/2018 T4 [id number] 03:44:00* Test Item Value Reference Range Interpretation Comme nts T4 FREE (test code = T4F) 1.0 ng/dL 0.77-1.61 N TSH REFLEX TO [id number] 03:44:00* Test Item Value Reference Range Interpretation Comme nts TSH REFLEX TO FT4 (test code = TSHREFLEX) 0.07 IU/mL 0.42-5.47 L VITAMIN [id number] 03:27:00* Test Item Value Reference Range Interpretation Comme nts VITAMIN B12 (test code = VITB12) 1165 pg/mL 193-986 H [id number] 03:25:00* Test Item Value Reference Range Interpretation Comme nts FIBRINOGEN (test code = FIB) 648 MG/DL 160-450 H Excess administr ation of anticoagulants and/or FibrinDegradation Products may affect Fibrinogen value. [id number] 03:16:00* Test Item Value Reference Range Interpretation Comme nts AMMONIA (test code = AMM) < 10 umol/L 11-35 L LACTIC [id number] 03:16:00* Test Item Value Reference Range Interpretation Comme nts LACTIC ACID (test code = LACT) 2.1 mmol/L 0.4-1.9 H COMPREHENSIVE METABOLIC [id number] 03:16:00* Test Item Value Reference Range Interpretation Comme nts SODIUM (test code = NA) 154 mEq/L 134-147 H POTASSIUM (test code = K) 4.2 mEq/L 3.4-5.0 N CHLORIDE (test code = CL) 123 mEq/L 100-108 H CARBON DIOXIDE (test code = CO2) 21 mEq/l 21-33 N ANION GAP (test code = GAP) 14 0-20 N GLUCOSE (test code = GLU) 280 mg/dL 77-141 H BLOOD UREA NITROGEN (test code = BUN) 23 mg/dL 7-25 N GLOMERULAR FILTRATION RATE (test code = GFR) 65.1 70-80 L The Glomerular Filtration Rate is a calculated parameterbased on serum Creatinine, patient age and sex. GFR valuesless than 60 mL/min/1.73 square meters are indicative ofChronic Kidney Disease. Values less than 15 mL/min/1.73square meters indicate Kidney failure. The calculation forGFR is based on the CKD-EPI (2020) calculation. This formulais race indifferent and is the recommended formula for GFRby the National Kidney Foundation for Adults.The GFR will not calculate if the sex is unknown or if thepatient's age is <18 years. CREATININE (test code = CREAT) 1.2 mg/dL 0.6-1.3 N TOTAL PROTEIN (test code = PROT) 6.5 g/dL 6.4-8.2 N ALBUMIN (test code = ALB) 2.10 g/dL 3.4-5.0 L CALCIUM (test code = CA) 8.4 mg/dL 8.0-10.5 N BILIRUBIN TOTAL (test code = BILT) 2.60 mg/dL 0.0-1.0 H SGOT/AST (test code = AST) 185 IUnit/L 8-34 H SGPT/ALT (test code = ALT) 126 IUnit/L 10-49 H ALKALINE PHOSPHATASE TOTAL (test code = ALKP) 167 IUnit/L 20-125 H [id number] 03:16:00* Test Item Value Reference Range Interpretation Comme nts PHOSPHOROUS (test code = PHOS) 3.6 MG/DL 2.5-4.9 [id number] 03:16:00* Test Item Value Reference Range Interpretation Comme [facility] LIPASE (test code = LIP) 81 U/L 13-57 H [id number] 03:16:00* Test Item Value Reference Range Interpretation Comme [facility] MAGNESIUM (test code = MAG) 2.09 mg/dL 1.6-2.6 N TROP-I HIGH [id number] 03:16:00* Test Item Value Reference Range Interpretation Comme nts TROP-I HIGH SENSITIVITY (test code = TROPIHS) 489 ng/L 0-54 HH CAUTION: Units o f the current test methodology (ng/L) differfrom the prior test methodology (ng/mL) by a factor of 1000. 99th Percentile Upper Reference Limit (URL): Females: 34 ng/LMales: 54 ng/L In order to distinguish acute elevations of high sensitivitytroponin from other clinical conditions, the FourthUniversal Definition of Myocardial Infarction stressesclinical assessment and the demonstration of a rise and/orfall in serial troponin results above the URL. These results were obtained using [employer] IM TnIHreagent. Results from different methodologies should not becompared to one another as quantitative results and URLs mayvary by method. CBC W/AUTO [id number] 02:59:00* Test Item Value Reference Range Interpretation Comme [facility] WHITE BLOOD CELL (test code = WBC) 17.0 x10 3/uL 4.5-11.0 H RED BLOOD CELL (test code = RBC) 4.04 x10 6/uL 4.00-5.60 N HEMOGLOBIN (test code = HGB) 12.2 g/dL 12.5-16.9 L HEMATOCRIT (test code = HCT) 37.0 % 37.5-50.7 L MEAN CELL VOLUME (test code = MCV) 91.6 fL 81.0-99.0 N MEAN CELL HGB (test code = MCH) 30.2 pg 27.0-33.0 N MEAN CELL HGB CONCETRATION (test code = MCHC) 33.0 g/dL 33.0-37.0 N RED CELL DISTRIBUTION WIDTH CV (test code = RDW) 14.5 % 11.5-14.5 N RED CELL DISTRIBUTION WIDTH SD (test code = RDW-SD) 48.1 fL 37.0-54.0 N PLATELET COUNT (test code = PLT) 179 x10 3/uL 150-400 N MEAN PLATELET VOLUME (test code = MPV) 11.1 fL 7.0-9.0 H NEUTROPHIL % (test code = NT%) 83.2 % 56.0-77.0 H IMMATURE GRANULOCYTE % (test code = IG%) 0.8 % 0.0-2.0 N LYMPHOCYTE % (test code = LY%) 8.0 % 14.0-32.0 L MONOCYTE % (test code = MO%) 7.8 % 4.8-9.0 N EOSINOPHIL % (test code = EO%) 0.1 % 0.3-3.7 L BASOPHIL % (test code = BA%) 0.1 % 0.0-2.0 N NUCLEATED RBC % (test code = NRBC%) 0.0 % 0-0 N NEUTROPHIL # (test code = NT#) 14.17 x10 3/uL 2.0-7.6 H IMMATURE GRANULOCYTE # (test code = IG#) 0.14 x10 3/uL 0.00-0.03 H LYMPHOCYTE # (test code = LY#) 1.36 x10 3/uL 1.0-3.8 N MONOCYTE # (test code = MO#) 1.33 x10 3/uL 0.1-0.8 H EOSINOPHIL # (test code = EO#) 0.01 x10 3/uL 0.0-0.2 N BASOPHIL # (test code = BA#) 0.02 x10 3/uL 0.0-0.2 N NUCLEATED RBC # (test code = NRBC#) 0.00 x10 3/uL 0.0-0.1 N TROP-I HIGH [id number] 02:34:00* Test Item Value Reference Range Interpretation Comme nts TROP-I HIGH SENSITIVITY (test code = TROPIHS) 454 ng/L 0-54 HH Critical result called to NAFISA KOWALSKI by [id number] at 0233 08/07/23Nurse read back result and tech confirmed it's correct?Y CAUTION: Units of the current test methodology (ng/L) differfrom the prior test methodology (ng/mL) by a factor of 1000. 99th Percentile Upper Reference Limit (URL): Females: 34 ng/LMales: 54 ng/L In order to distinguish acute elevations of high sensitivitytroponin from other clinical conditions, the FourthUniversal Definition of Myocardial Infarction stressesclinical assessment and the demonstration of a rise and/orfall in serial troponin results above the URL. These results were obtained using [email or web address] IM TnIHreagent. Results from different methodologies should not becompared to one another as quantitative results and URLs mayvary by method. GLUCOSE [id number] 00:33:00* Test Item Value Reference Range Interpretation Comme nts GLUCOSE BEDSIDE (test code = GLUBED) 216 MG/DL 70-110 H Performed by delia andrea at [facility] - CT HEAD/BRAIN W/O [id number] 22:52:00 [facility] 1955 Sex: M Name: MISSY CANALES [facility] : 1955 Age/S: 68 / M [address] [place] [address] Unit #: [id number] Loc: [place] [address] Phys: Leroy Vences MD Acct: [id number] Dis Date: Status: ADM IN PHONE #: [phone] Exam Date: 08/06/20232326 FAX #: [phone] Reason: AMS EXAMS: CPT CODE: [id number] CTHEAD/BRAIN W/O CONT 16338 EXAM: CT BRAIN WITHOUT CONTRAST INDICATION: Altered mental status COMPARISON: August 06, 2023 TECHNIQUE: Routine axial CT images of the brain were obtained without venous contrast. Coronal and sagittal reformatted images were submitted for review. This CT exam was performedaccording to our departmental dose optimization program, which includes automated exposure control,adjustment of the mA and or kV according to patient size and/or use of iterative reconstruction technique. IV contrast: None DLP: 696.49 mGy-cm FINDINGS: No intra-axial or extra-axial fluid collections were identified. No acute intracranial hemorrhage. There are areas of low-attenuation within the supratentorial white matter likely representing chronic microvascular ischemic changes. The ventricles and sulci are prominent consistent with diffuse cerebral volume loss. No midline shift or mass effect. The basal cisterns are patent. The posterior fossa and 4th ventricle are normal. No calvariallesions are identified. The paranasal sinuses and mastoid air cells are clear. The orbits and globes are unremarkable. IMPRESSION: No acute intracranial abnormality. No intracranial hemorrhage. Chronic microvascular ischemic changes and mild cerebral volume loss. LOCATION: B2 at 2252 Reported and signed by: Daria Pratt M.D.PAGE 1 Signed Report (CONTINUED) Name: MISSY CANALES [facility] : 1955 Age/S: 68 / M [address] [place] [address] Unit #: [id number] Loc: [place] [address] Phys: Leroy Vences MD Acct: [id number] Dis Date: Status: ADM IN PHONE #: [phone] Exam Date: 08/06/20232326 FAX #: [phone] Reason: AMS EXAMS: CPT CODE: [id number] CT HEAD/BRAIN W/O CONT 11002 (Continued) CC: Leroy Vences MD; Bryce Hennessy MD Technologist:Nathaniel Josh, RT(R)(CT) CTDI: DLP: Trnscb Date/Time: 08/06/2023 (0009) 16 Orig Print D/T: S: 08/06/2023 (0668) PAGE 2 Signed ReportGLUCOSE [id number] 22:03:00* Test Item Value Reference Range Interpretation Comme nts GLUCOSE BEDSIDE (test code = GLUBED) 230 MG/DL 70-110 H Performed by cer bety embossograph operator at [facility] POC ARTERIAL BLOOD [id number] 21:33:00* Test Item Value Reference Range Interpretation Comme nts POC ARTERIAL BLOOD GAS PH (t est code = POCPHA) 7.463 7.35-7.45 H POC ARTERIAL BLOOD GAS PCO2 (test code = XPMRZN4Y) 25.9 mmHg 35.0-45 LL POC TCO2 ARTERIAL (test code = POCTCO2) 19.1 POC ARTERIAL BLOOD GAS PO2 ( test code = URZJY0H) 79.5 mmHg 80-100.0 L POC HCO3 ARTERIAL (test code = RESRRH3Y) 18.4 MMOL/L 22.0-26.0 L POC BASE EXCESS (test code = POCBEA) -5.1 MMOL/L -4.0-4.0 L POC O2 SATURATION (test code = POCO2S) 95.9 % 90-100 N ABG DELIVERY (test code = VIC) RA ABG TEMPERATURE (test code = TEMPA) 101.1 F ABG SITE (test code = SITEA) L Radial TASIA'S TEST (test code = ALLENS) Positive BASIC METABOLIC [id number] 21:33:00* Test Item Value Reference Range Interpretation Comme nts SODIUM (test code = NA/ABG) 158 mmol/L 134-147 HH POTASSIUM (test code = K/ABG) 3.5 mmol/L 3.4-5.0 N CHLORIDE (test code = CL/ABG) 128 mmol/L 100-108 H CREATININE ABG (test code = CREAABG) 1.0 mg/dL 0.8-1.3 N POC IONIZED CALCIUM (test co de = POCCA) 1.26 MMOL/L 1.12-1.32 N POC GLUCOSE (test code = POCGLU) 295 MG/DL 70-110 H HEMOGLOBIN [id number] 21:33:00* Test Item Value Reference Range Interpretation Comme nts HEMOGLOBIN ABG (test code = HGB/ABG) 14.2 G/DL 12.5-16.9 N [id number] 21:33:00* Test Item Value Reference Range Interpretation Comme nts HEMATOCRIT (test code = HCT/ABG) 42 % 37.5-50.7 N POC LACTIC [id number] 21:33:00* Test Item Value Reference Range Interpretation Comme nts POC LACTIC ACID (test code = POCLAC) 1.5 mmol/l 0.9-1.7 N GLUCOSE [id number] 20:32:00* Test Item Value Reference Range Interpretation Comme nts GLUCOSE BEDSIDE (test code = GLUBED) 258 MG/DL 70-110 H Performed by cer bety embossograph operator at [facility] - CTA [id number] 20:07:00 [facility] 1955 Sex: M Name:MISSY CANALES [facility] : 1955 Age/S: 68 / M [address] [place] [address] Blvd Unit #: [id number]: [place] [address] Phys: Riley Kamara MD Acct: [id number] Dis Date: Status: ADM IN PHONE#: [phone] Exam Date: 08/06/20231642 FAX #: [phone] Reason: CHANGE IN MENTAL STATUS EXAMS: CPT CODE: [id number] CTA HEAD 12222 EXAM: CTA BRAIN EXAM: CTA NECK INDICATION: CHANGE IN MENTAL STATUS COMPARISON: August 06, 2023 TECHNIQUE: Rapid acquisition spiral CT images of the brain and neck were obtained between the aortic arch and the cranial vertex during intravenous infusion of iodinated contrast for the purposes of CT angiography. Coronal and sagittal MIP reformatted images of thehead and neck were submitted for review. The source images are also presented for interpretation. This CT exam was performed according to our departmental dose optimization program, which includes automated exposure control, adjustment of the mA and or kV according to patient size and/or use of iterative reconstruction technique. IV contrast: 100 cc of Isovue-300 DLP: 1372.80 mGy-cm FINDINGS: NECK CTA: Aortic arch: The great vessels originate from the aortic arch in the standard configuration. No origin stenosis is identified. The vertebral artery origins are patent bilaterally. Carotid arteries: The common carotid arteries and cervical internal carotid arteries have normal course, caliber,and contour. There are atherosclerotic calcifications of the carotid bifurcations with no flow-limiting stenosis. The external carotid arteries are normal. There is no evidence of vascular injury. Vertebral arteries: The vertebral arteries have a normal course, caliber and contour. The vertebral art eries are codominant. The soft tissues of the neck and other incidental structures are normal. BRAIN CTA: There are atherosclerotic calcifications of the cavernous and supraclinoid ICA segments withmild flow-limiting stenosis on the right. There is vessel irregularity of the right M1 segment withfocal areas of severe stenosis. The left middle and anterior cerebral arteries are patent. The anterior communicating artery is patent. PAGE 1 Signed Report (CONTINUED) Name: MISSY CANALES [facility] : 1955 Age/S: 68 / M [address] [place] [address] Unit #: [id number] Loc: [place] [address] Phys: Riley Kamara MD Acct: [id number] Dis Date: Status: ADM IN PHONE #: [phone] Exam Date: 08/06/2023 1643 FAX #: [phone] Reason: CHANGE IN MENTAL STATUS EXAMS: CPT CODE: [id number] CTA HEAD 89313 (Continued) There is vessel irregularity of the distal intracranial vasculature consistent with atherosclerotic disease. There is vessel irregularity of the left vertebral artery with moderate flow limiting stenosis. The vertebrobasilar junction and basilar artery are normal. There is v essel irregularity of the bilateral posterior cerebral arteries with areas of severe flow-limiting stenosis. The posterior cerebral and superior cerebellar arteries are patent. Both PICAs are opacified. There is no aneurysm or vascular malformation. The deep cerebral veins and major venous sinuses are normal. The brain parenchyma and other incidental structures are unremarkable. 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 Atherosclerotic disease within both carotid siphons with mild flow-limiting stenosis. Vessel irregularity of the distal intracranial vasculature with areas of severe flow-limiting stenosis in both cerebral arteries. Findingswere discussed with Dr. Haider at 8:07 PM via telephone. (All qualitative and quantitative assessments of carotid bifurcation and proximal internal carotid artery stenosis are made referencing the distal internal carotid artery {NASCET criteria}.) LOCATION: B2 at 2006 Reported and signed by: Daria Pratt M.D. PAGE 2 Signed Report (CONTINUED) Name: KHALIFEmigdioMISSY Calloway [facility] : 1955 Age/S: 68 / M [address] [place] [address] Blvd Unit #: [id number] Loc: [place] [address] Phys: Riley Kamara MD Acct: [id number] Dis Date: Status: ADM IN PHONE #: [phone] Exam Date: 08/06/2023 1643 FAX #: [phone] Reason: CHANGE IN MENTAL STATUS EXAMS: CPT CODE: [id number] CTA HEAD 38186 (Continued) CC: Riley Kamara MD; Bryce Hennessy MD Technologist:Ana Lilia Pascual RT(R)(CT) CTDI: DLP: Trnscb Date/Time: 08/06/2023 (2006) [id number] Orig Print D/T: S: 08/06/2023 (2010) PAGE 3 Signed Report- CT ANGIO [id number] 20:07:00 [facility] 1955 Sex: M Name: MISSY CANALES [facility] [place] : 1955 Age/S: 68 / M [address] [place] [address] Blvd Unit #: [id number] Loc: [place] [address] Phys: Riley Kamara MD Acct: [id number] Dis Date: Status: ADM IN PHONE #: [phone] Exam Date: 08/06/2023 1644 FAX #: [phone] Reason: CHANGE IN MENTAL STATUS EXAMS: CPT CODE: [id number] CT ANGIO NECK 23988 EXAM: CTA BRAIN EXAM: CTA NECK INDICATION: CHANGE IN MENTAL STATUS COMPARISON: August 06, 2023 TECHNIQUE: Rapid acquisition spiral CT images of the brain and neck were obtained between the aortic arch and the cranial vertex during intravenous infusion of iodinated contrast for the purposes of CT angiography. Coronal and sagittal MIP reformatted images of the head and neck were submitted for review. The source images are also presented for interpretation. This CT exam was performed according to our departmental dose optimization program, which includes automated exposure control, adjustment of the mA and or kV according to patient size and/or use of iterative reconstruction technique. IV contrast: 100 cc of Isovue-300 DLP: 1372.80 mGy-cm FINDINGS: NECK CTA: Aortic arch: The great vessels originate from the aortic arch in the standard configuration. No origin stenosis is identified. The vertebral artery origins are patent bilaterally. Carotid arteries: The common carotid arteries and cervical internal carotid arteries have normal course, gerard perry, and contour. There are atherosclerotic calcifications of the carotid bifurcations with no flow-limiting stenosis. The external carotid arteries are normal. There is no evidence of vascular injury. Vertebral arteries: The vertebral arteries have a normal course, caliber and contour. The vertebral arteries are codominant. The soft tissues of the neck and other incidental structures are normal.BRAIN CTA: There are atherosclerotic calcifications of the cavernous and supraclinoid ICA segments with mild flow-limiting stenosis on the right. There is vessel irregularity of the right M1 segment with focal areas of severe stenosis. The left middle and anterior cerebral arteries are patent. The anterior communicating artery is patent. PAGE 1 Signed Report (CONTINUED) Name: MISSY CANALES : 1955 Age/S: 68 / M [address] [place] [address] Unit #: [id number] Loc: [place] [address] Phys: Riley Kamara MD Acct: [id number] Dis Date: Status: ADM IN PHONE #: [phone] Exam Date: 08/06/2023 1644 FAX #: [phone] Reason: CHANGE IN MENTAL STATUS EXAMS: CPT CODE: [id number] CT ANGIO NECK 99037 (Continued) There is vessel irregularity of the distal intracranial vasculature consistent with atherosclerotic disease. There is vessel irregularity of the left vertebral artery with moderate flow limiting stenosis. The vertebrobasilar junction and basilar artery are normal. T here is vessel irregularity of the bilateral posterior cerebral arteries with areas of severe flow-limiting stenosis. The posterior cerebral and superior cerebellar arteries are patent. Both PICAs are opacified. There is no aneurysm or vascular malformation. The deep cerebral veins and major venoussinuses are normal. The brain parenchyma and other incidental structures are unremarkable. 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 Atherosclerotic disease within both carotid siphons with mild flow-limiting stenosis. Vessel irregularity of the distal intracranial vasculature with areas of severe flow-limiting stenosis in both cerebral arteries. Findings were discussed with Dr. Haider at 8:07 PM via telephone. (All qualitative and quantitative assessments of carotid bifurcation and proximal internal carotid artery stenosis are made referencing the distal internal carotid artery {NASCET criteria}.) LOCATION: B2 at 2007 Reported and signed by: Daria Pratt M.D. PAGE 2 Signed Report (CONTINUED) Name: MISSY CANALES : 1955 Age/S: 68 / M [address] [place] [address] Unit #: [id number] Loc: [place] [address] Phys: Riley Kamara MD Acct: [id number] Dis Date: Status: ADM IN PHONE #: [phone] Exam Date: 08/06/20231643 FAX #: [phone] Reason: CHANGE IN MENTAL STATUS EXAMS: CPT CODE: [id number] CT ANGIO NECK 05225 (Continued) CC: Riley Kamara MD; Bryce Hennessy MD Technologist:Ana Lilia Pascual, RT(R)(CT) CTDI: DLP: Trnscb Date/Time: 08/06/2023 (2006) [email or web address] Orig Print D/T: S: 08/06/2023 (2010) PAGE 3 Signed Report- CT HEAD/BRAIN W/O [id number] 17:36:00 [facility] 1955 Sex: M Name:MISSY CANALES [facility] : 1955 Age/S: 68 / M [address] [place] [address] Unit #: [id number]: [place] [address] Phys: Vitaly Jordan SPACECRAFT SYSTEMS ENGINEER Acct: [id number] Dis Date: Status: ADM IN PHONE #:[phone] Exam Date: 08/06/20231642 FAX #: [phone] Reason: CHANGE IN MENTAL STATUS EXAMS: CPT CODE: [id number] CT HEAD/BRAIN W/O CONT 00943 LOCATION: Q15 HISTORY: 68-year-old male, status post alteration of awareness. COMMENT: Axial imaging of the patient's brain was obtained without IV contrast. Soft tissue and bone window images were provided. Coronal and sagittal reconstructions were included. The study was obtained within 24 hours of the patient's arrival to this facility. One or more of the following dose reduction techniques were used: Automated exposure control, adjustment of the mA and/or kV according to patient size, and/or utilization of iterative reconstruction technique. CONTRAST: None FINDINGS: Senescent changes are demonstrated which appear advanced for the patient's stated age of 68 years. Prominent central volume loss is also demonstrated with evidence of periven tricular white matter gliosis in the cerebral hemispheres. There is no acute mass effect, midline shift, hemorrhage, or herniation is seen. There is no CT evidence of an acute infarct. The skeleton is intact. The paranasal sinuses are clear. The soft tissues are unremarkable. IMPRESSION: There are no acute findings seen is patient's brain on this unenhanced head CT examination. Senescent changes which appear advanced for the patient's stated age are noted. at 9410 Reported and signed by: Javi Lawrence M.D. PAGE 1 Signed Report (CONTINUED) Name: MISSY CANALES [facility] : 1955 Age/S: 68 / M [address] [place] [address] Unit #: [id number] Loc: [place] [address] Phys: iVtaly Jordan [employer]CRA[employer]S ENGINEER Acct: [id number] Dis Date: Status: ADM IN PHONE #: [phone] Exam Date: 08/06/2023 1643 FAX #: [phone] Reason: CHANGE IN MENTAL STATUS EXAMS: CPT CODE: [id number] CT HEAD/BRAIN W/O CONT 85610 (Continued) CC: Bryce Hennessy MD; Vitaly Jordan NP Technologist:RT Luis(R)(CT) CTDI: DLP: Trnscb Date/Time: 08/06/2023 (173) [email or web address] Orig Print D/T: S: 08/06/2023 (1730) PAGE 2 Signed ReportGLUCOSE [id number] 17:09:00* Test Item Value Reference Range Interpretation Comme nts GLUCOSE BEDSIDE (test code = GLUBED) 249 MG/DL 70-110 H Performed by delia andrea at [facility] - SP CHLECYSTOSTMY [id number] 16:23:00 [facility] 1955 Sex: M FAX:Bryce Serrano MD [phone] [place]: St: ADM Name: MISSY CANALES [facility] : 1955 Age/S: 68/M [address] [place] [address] Unit #: [id number] Loc: [facility] [place] [address] Phys: Raphael Ly MD Acct: [id number] Dis Date: Status: ADM IN PHONE #: [phone] Exam Date: 08/06/2023 1444 FAX #: [phone] Reason: GRANT DRAIN EXAMS: CPT CODE: [id number] SP CHLECYSTOSTMY PERC 24672 PROCEDURES: 1. Ultrasound and fluoroscopically guided drainage catheter placement into hepatic/pericholecystic complex cystic lesion/fluid collection/abscess. 2. Ultrasound and fluoroscopically guided percutaneous cholecystostomy drainage catheter placement. INDICATION: Acute cholecystitis with hepatic/pericholecystic complex cystic lesion/fluid collection/abscess, with suspected connection with gallbladder on MRI abdomen. COMPARISON: Right upper quadrant abdominal ultrasound and MRI abdomen dated 08/03/2023. GREETER GUEST SERVICES: Dr. Jose Guadalupe Rodriguez (attending vascular and interventional radiologist). MEDICATIONS (for both procedures combined): 1. 50 mcg Fentanyl IV. 2. 10 mL of 1% lidocaine local anesthesia. SEDATION TIME: None (only IV Fentanyl was given). CONTRAST: Approximately 30 mL of Isovue-300 for both procedures combined. FLUOROSCOPY TIME: 1.9 minutes for the hepatic/pericholecystic drain placement procedure; 0.7 minutes for the percutaneous cholecystostomy tube placement procedure. RADIATION DOSE/AIR KERMA: 80 mGy for the hepatic/pericholecystic drain placement procedure; 28 mGy for the percutaneous cholecystostomy tube placement procedure. COMPLICATIONS: None immediate. DESCRIPTION/TECHNIQUE: After the procedures including risks and potential complications had been explained to the patient/the patient's family member(s) and questions answered, informed consent was obtained. The patient was placed on the angiography table in the supine position. A time out was performed. Attention was first turned to the known hepatic/pericholecystic complex cystic lesion/fluid collection/abscess. Pre-procedure ultrasound imaging was obtained localizing the patient's known hepatic/pericholecystic complex cystic lesion/fluid PAGE 1 Signed Report (CONTINUED) FAX: Bryce Serrano MD [phone] [place]: GCSt: ADM -- Name: MISSY CANALES Elli [facility] : 1955 Age/S: 68/M [address] [place] [address] Unit #: [id number] Loc: G.[address] [place] [address] Phys: Raphael Ly MD Acct: [id number] Dis Date: Status: ADM IN PHONE #:[phone] Exam Date: 08/06/2023 1444 FAX #: [phone] Reason: GRANT DRAIN EXAMS: CPT CODE: [id number] SP CHLECYSTOSTMY PERC 55677 (Continued) collection/abscess. Multiple ultrasound images werepermanently documented. The skin of the right upper quadrant and right flank was prepped and drapedin the usual fashion. The skin and subcutaneous tissues overlying this region were infiltrated with 1% lidocaine for local anesthesia. Utilizing real-time ultrasound guidance, a 21- gauge AccuStick needle was advanced through the skin and subcutaneous tissues into the hepatic/pericholecystic complex cystic lesion/fluid collection/abscess with its tip within the cystic lesion/ fluid collection/abscess. Ultrasound guidance image was permanently stored. Approximately 3 mL of cloudy bilious fluid was aspirated and the fluid sample was sent to the lab for culture analysis. Through the needle, a microwire was advanced and position confirmed with fluoroscopy. The needle was then exchanged for a triaxial AccuStick sheath over the microwire. The sheath was advanced into the perihepatic/pericholecystic complex cystic lesion/fluid collection/abscess, as confirmed with the injection of a small amount of contrast. The microwire was exchanged for a 0.035 Amplatz wire. The tract was serially dilatedover the wire using an 8 Lithuanian and then a 12 Lithuanian dilator with subsequent placement of a 10 Lithuanian drainage catheter, with the catheter pigtail formed within the lesion/collection/abscess, as confi rmed with fluoroscopy after the injection of a small amount of contrast. The catheter was left in place to gravity drainage and secured to the skin with a 2- 0 silk suture. A sterile dressing was applied. A final fluoroscopic image of the drainage catheter was saved. Attention was then turned to thegallbladder. Pre- procedure ultrasound imaging was obtained localizing the patient's gallbladder andconfirming the persistent presence of findings of acute cholecystitis. Multiple ultrasound images were permanently documented. The skin of the right upper quadrant and right flank was prepped and draped in the usual fashion. The skin and subcutaneous tissues overlying this region were infiltrated with 1% lidocaine for local anesthesia. Utilizing real-time ultrasound guidance, a 19- gauge needle was advanced through the skin and subcutaneous tissues into the gallbladder with its tip within the gallbladder lumen. Ultrasound guidance image was permanently stored. Approximately 8 mL of cloudy bilious fluid was aspirated and the fluid sample was sent to the lab for culture analysis. A small amount of contrast was injected through the needle, confirming needle position within the gallbladder lumen. Through the needle, a 0.035 Amplatz wire was advanced and coiled within the gallbladder lumen, with position confirmed with fluoroscopy. The needle was then exchanged for a 12 Lithuanian dilator over the wire, with subsequent placement of a 10 Lithuanian drainage catheter, with the PAGE 2 Signed Report (CONTINUED) FAX: Bryce Serrano MD [phone] [place]: St: ADM Name: MISSY CANALES [facility] : 1955 Age/S: 68/M [address] [place] [address] Unit #: [id number] Loc: G.[address] [place] [address] Phys: Raphael Ly MD Acct: [id number] Dis Date: Status: ADM IN PHONE #: [phone] Exam Date: 08/06/2023 1444FAX #: [phone] Reason: GRANT DRAIN EXAMS: CPT CODE: [id number] SP CHLECYSTOSTMY PERC 55737 (Continued) catheter pigtail formed within the gallbladder lumen, as confirmed with fluoroscopy after the injection of a small amount of contrast. The catheter was left in place to gravity drainage and secured to the skin with a 2-0 silk suture. A sterile dressing was applied. A final fluoroscopic imageof the drainage catheter was saved. The patient tolerated both procedures well without immediate complication and was subsequently returned to the inpatient unit in stable, unchanged condition. FINDINGS: 1. Procedural ultrasound images of both procedures demonstrate persistent ultrasound findings of acute cholecystitis, with the known hepatic/pericholecystic complex cystic lesion/fluid collection/abscess redemonstrated. 2. Procedural contrast fluoroscopy images demonstrate findings of acute cholecystitis. The hepatic/pericholecystic complex cystic lesion/fluid collection/abscess appears to have a faint tiny communication with the gallbladder, as suspected on the comparison MRI abdomen dated 08/03/2023. 3. Successful, uncomplicated placement of a 10 Lithuanian drainage catheter into the known hepatic/pericholecystic complex cystic lesion/fluid collection/abscess was performed via a transhepatic approach utilizing both ultrasound and fluoroscopic guidance. Fluid sample was sent to the lab for culture analysis. 4. Successful, uncomplicated placement of a 10 Lithuanian percutaneous cholecystostomy drainage catheter into the gallbladder lumen was performed via a transhepatic approach utilizing both ultrasound and fluoroscopic guidance. Fluid sample was sent to the lab for culture analysis. IMPRESSION: 1. Successful ultrasound and fluoroscopically guided placement of 10 Lithuanian drainage catheter into the known hepatic/pericholecystic complex cystic lesion/fluid collection/abscess. Fluid sample was sent to the lab for culture, which is pending. 2. Successful ultrasound and fluoroscopically guided placement of 10 Lithuanian percutaneous cholecystostomy drainage catheter. Fluid sample was sent to the lab for culture, which is pending. Both catheters should be flushed with 10 mL each of sterile normal saline twice daily. PAGE 3 Signed Report (CONTINUED) FAX: Bryce Serrano MD [phone]: GC St: ADM -- Name: MISSY CANALES [facility] : 1955 Age/S: 68/M [address] [place] [address] Unit #: [id number] Loc: [facility] [place] [address] Phys: Raphael Ly MD Acct: [id number] Dis Date: Status: ADM IN PHONE #: [phone] Exam Date: 08/06/2023 1444 FAX #: [phone] Reason: GRANT DRAIN EXAMS: CPT CODE: [id number] SP CHLECYSTOSTMY PERC 07302 (Continued) at 1623 Reported and signed by: Jose Guadalupe Rodriguez M.D. CC: Bryce Hennessy MD Technologist: Esther Zimmer RT(R); Keith Dias RT(R); ... Trnscrd Date/Time/By: 08/06/2023 (1623) : By: [email or web address] Orig Print D/T: S: 08/06/2023 (1626) PAGE 4 Signed Repo rt- SP PERC [id number] 16:23:00 [facility] 1955 Sex: M FAX: Bryce Serrano MD [phone] [place]: St: ADM FAX: Ines Baldwin Name: MISSY CANALES [facility] : 1955 Age/S: 68/M [address] [place] [address] Unit #: [id number] Loc: G.[address] [place] [address] Phys: Ines Baldwin Acct: [id number] Dis Date: Status: ADM IN PHONE #: [phone] Exam Date: 08/04/2023 1445 FAX #: [phone] Reason: drainage of complex cystic lesion EXAMS: CPT CODE: [id number] SP PERC DRAIN 66774 PROCEDURES: 1. Ultrasound and fluoroscopically guided drainage catheter placement into hepatic/pericholecystic complex cystic lesion/fluid collection/abscess. 2. Ultrasound and fluo roscopically guided percutaneous cholecystostomy drainage catheter placement. INDICATION: Acute cholecystitis with hepatic/pericholecystic complex cystic lesion/fluid collection/abscess, with suspected connection with gallbladder on MRI abdomen. COMPARISON: Right upper quadrant abdominal ultrasoundand MRI abdomen dated 08/03/2023. GREETER GUEST SERVICES: Dr. Jose Guadalupe Rodriguez (attending vascular and interventional radiologist). MEDICATIONS (for both procedures combined): 1. 50 mcg Fentanyl IV. 2. 10 mL of1% lidocaine local anesthesia. SEDATION TIME: None (only IV Fentanyl was given). CONTRAST: Approximately 30 mL of Isovue-300 for both procedures combined. FLUOROSCOPY TIME: 1.9 minutes for the hepatic /pericholecystic drain placement procedure; 0.7 minutes for the percutaneous cholecystostomy tube placement procedure. RADIATION DOSE/AIR KERMA: 80 mGy for the hepatic/pericholecystic drain placementprocedure; 28 mGy for the percutaneous cholecystostomy tube placement procedure. COMPLICATIONS: None immediate. DESCRIPTION/TECHNIQUE: After the procedures including risks and potential complicationshad been explained to the patient/the patient's family member(s) and questions answered, informed consent was obtained. The patient was placed on the angiography table in the supine position. A timeout was performed. Attention was first turned to the known hepatic/pericholecystic complex cystic lesion/fluid collection/abscess. Pre-procedure ultrasound imaging was obtained localizing the patient's known PAGE 1 Signed Report (CONTINUED) FAX: Bryce Serrano MD [phone] [place]: St: ADM FAX: Ines Baldwin Name: MISSY CANALES [facility] : 1955 Age/S: 68/M [address] [place] [address] Unit #: [id number] Loc: G.[address] [place] [address] Phys: Ines Baldwin Acct: [id number] Dis Date: Status: ADM IN PHONE #: [phone] Exam Date: 08/04/2023 1445 FAX #: [phone] Reason: drainage of complex cystic lesion EXAMS: CPT CODE: [id number] SP PERC DRAIN 46025 (Continued) hepatic/pericholecyst ic complex cystic lesion/fluid collection/abscess. Multiple ultrasound images were permanently documented. The skin of the right upper quadrant and right flank was prepped and draped in the usual fashion. The skin and subcutaneous tissues overlying this region were infiltrated with 1% lidocaine for local anesthesia. Utilizing real-time ultrasound guidance, a 21-gauge AccuStick needle was advanced through the skin and subcutaneous tissues into the hepatic/pericholecystic complex cystic lesion/fluid collection/abscess with its tip within the cystic lesion/ fluid collection/abscess. Ultrasound guidance image was permanently stored. Approximately 3 mL of cloudy bilious fluid was aspirated andthe fluid sample was sent to the lab for culture analysis. Through the needle, a microwire was advanced and position confirmed with fluoroscopy. The needle was then exchanged for a triaxial AccuSticksheath over the microwire. The sheath was advanced into the perihepatic/pericholecystic complex cystic lesion/fluid collection/abscess, as confirmed with the injection of a small amount of contrast. The microwire was exchanged for a 0.035 Amplatz wire. The tract was serially dilated over the wire using an 8 Lithuanian and then a 12 Lithuanian dilator with subsequent placement of a 10 Lithuanian drainage catheter, with the catheter pigtail formed within the lesion/collection/abscess, as confirmed with fluoroscopy after the injection of a small amount of contrast. The catheter was left in place to gravity drainage and secured to the skin with a 2-0 silk suture. A sterile dressing was applied. A final fluoroscopic image of the drainage catheter was saved. Attention was then turned to the gallbladder. Pre- procedure ultrasound imaging was obtained localizing the patient's gallbladder and confirming the persistent presence of findings of acute cholecystitis. Multiple ultrasound images were permanently documented. The skin of the right upper quadrant and right flank was prepped and draped in the usualfashion. The skin and subcutaneous tissues overlying this region were infiltrated with 1% lidocainefor local anesthesia. Utilizing real-time ultrasound guidance, a 19- gauge needle was advanced through the skin and subcutaneous tissues into the gallbladder with its tip within the gallbladder lumen.Ultrasound guidance image was permanently stored. Approximately 8 mL of cloudy bilious fluid was aspirated and the fluid sample was sent to the lab for culture analysis. A small amount of contrast was injected through the needle, confirming needle position within the gallbladder lumen. Through the needle, a 0.035 Amplatz wire was advanced and coiled within the gallbladder lumen, with position confirmed with fluoroscopy. The PAGE 2 Signed Report (CONTINUED) FAX: Bryce Serrano MD [phone] Ca mpus: GC St: ADM FAX: Ines Baldwin Name: MISSY CANALES [facility] : 1955 Age/S: 68/M [address] [place] [address] Unit #: [id number] Loc: [address] [address] Phys: Ines Baldwin Acct: [id number] Dis Date: Status: ADM IN PHONE #: [phone] Exam Date: 08/04/2023 1445 FAX #: [phone] Reason: drainage of complex cystic lesion EXAMS: CPT CODE: [id number] SP PERC DRAIN 67953 (Continued) needle was then exchanged for a 12 Lithuanian dilator over the wire, with subsequent placement of a 10 Lithuanian drainage catheter, with the catheter pigtail formed within the gallbladder lumen, as confirmedwith fluoroscopy after the injection of a small amount of contrast. The catheter was left in place to gravity drainage and secured to the skin with a 2-0 silk suture. A sterile dressing was applied. A final fluoroscopic image of the drainage catheter was saved. The patient tolerated both procedureswell without immediate complication and was subsequently returned to the inpatient unit in stable, unchanged condition. FINDINGS: 1. Procedural ultrasound images of both procedures demonstrate persist ent ultrasound findings of acute cholecystitis, with the known hepatic/pericholecystic complex cystic lesion/fluid collection/abscess redemonstrated. 2. Procedural contrast fluoroscopy images demonstrate findings of acute cholecystitis. The hepatic/pericholecystic complex cystic lesion/fluid collection/abscess appears to have a faint tiny communication with the gallbladder, as suspected on the comparison MRI abdomen dated 08/03/2023. 3. Successful, uncomplicated placement of a 10 Lithuanian drainagecatheter into the known hepatic/pericholecystic complex cystic lesion/fluid collection/abscess was performed via a transhepatic approach utilizing both ultrasound and fluoroscopic guidance. Fluid sample was sent to the lab for culture analysis. 4. Successful, uncomplicated placement of a 10 Lithuanian percutaneous cholecystostomy drainage catheter into the gallbladder lumen was performed via a transhepatic approach utilizing both ultrasound and fluoroscopic guidance. Fluid sample was sent to the lab for culture analysis. IMPRESSION: 1. Successful ultrasound and fluoroscopically guided placement of 10 Lithuanian drainage catheter into the known hepatic/pericholecystic complex cystic lesion/fluid collection/abscess. Fluid sample was sent to the lab for culture, which is pending. 2. Successful ultra sound and fluoroscopically guided placement of 10 Lithuanian percutaneous cholecystostomy drainage catheter. Fluid sample was sent to the lab for culture, which is pending. PAGE 3 Signed Report (CONTINUED) FAX: Bryce Serrano MD [phone] [place]: St: ADM FAX: Ines Baldwin Name: MISSY CANALES [facility] : 1955 Age/S: 68/M [address] [place] [address] Unit #: [id number] Loc: G.[address] [place] [address] Phys: Ines Baldwin Acct: [id number] Dis Date: Status: ADM IN PHONE #: [phone] Exam Date: 08/04/2023 1445 FAX #: [phone] Reason: drainage of complex cystic lesion EXAMS: CPT CODE: [id number] SP PERC DRAIN 45370 (Continued) Both catheters should be flushed with 10 mL each of sterilenormal saline twice daily. at 1623 Reported and signed by: Jose Guadalupe Rodriguez M.D. CC: Bryce Hennessy MD; Ines WELLER Technologist: Esther Zimmer, RT(R); Keith Dias RT(R); ... Trnscrd Date/Time/By:08/06/2023 (7481) : By: [email or web address] Orig Print D/T: S: 08/06/2023 (8482) PAGE 4 Signed ReportPROTHROMBIN [id number] 12:48:00* Test Item Value Reference Range Interpretation Comme nts PROTHROMBIN TIME PATIENT (test code = PTP) 13.5 SECONDS 9.3-12.9 H INTERNATIONAL NORMAL RATIO (test code = INR) 1.2 0.8-1.2 N TARGET INR BY INDICATION Indication INR1. Prophylaxis of venous thrombosis 2.0 - 3.0 (orthopedic surgery), Prophylaxis of venous thrombosis (other than high-risk surgery), Treatment of Deep Vein Thrombosis/Pulmonary Embolism, Prevention of systemic embolism - Tissue heart valves, Acute Myocardial Infarction (to prevent systemic embolism), Valvular heart disease, Atrial Fibrillation, Bileaflet mechanical valve in aortic position.2. Mechanical prosthetic valves (high risk), 2.5 - 3.5 Presence of Lupus Anticoagulant or Antiphospholipid Antibodies, Prevention of systemic embolism - Acute Myocardial Infarction (to prevent recurrent infarct). THROMBOPLASTIN TIME [id number] 12:48:00* Test Item Value Reference Range Interpretation Comme nts THROMBOPLASTIN TIME PARTIAL (test code = PTT) 31.7 Seconds 25.0-39.5 N Therapeutic Rang e: 50.4 - 88.3 Seconds Effective 09/10/2018 GLUCOSE [id number] 12:24:00* Test Item Value Reference Range Interpretation Comme nts GLUCOSE BEDSIDE (test code = GLUBED) 266 MG/DL 70-110 H Performed by cer tified embossograph operator at [facility] GLUCOSE [id number] 08:55:00* Test Item Value Reference Range Interpretation Comme nts GLUCOSE BEDSIDE (test code = GLUBED) 264 MG/DL 70-110 H Performed by [facility] tified embossograph operator at [facility] GLUCOSE [id number] 21:03:00* Test Item Value Reference Range Interpretation Comme nts GLUCOSE BEDSIDE (test code = GLUBED) 256 MG/DL 70-110 H Performed by [facility] tified embossograph operator at [facility] LACTIC [id number] 12:59:00* Test Item Value Reference Range Interpretation Comme nts LACTIC ACID (test code = LACT) 1.8 mmol/L 0.4-1.9 N GLUCOSE [id number] 12:13:00* Test Item Value Reference Range Interpretation Comme nts GLUCOSE BEDSIDE (test code = GLUBED) 269 MG/DL 70-110 H Performed by cer tified embossograph operator at [facility] GLUCOSE [id number] 08:07:00* Test Item Value Reference Range Interpretation Comme nts GLUCOSE BEDSIDE (test code = GLUBED) 282 MG/DL 70-110 H Performed by cer tified embossograph operator at [facility] COMPREHENSIVE METABOLIC [id number] 07:30:00* Test Item Value Reference Range Interpretation Comme nts SODIUM (test code = NA) 150 mEq/L 134-147 H POTASSIUM (test code = K) 3.6 mEq/L 3.4-5.0 N CHLORIDE (test code = CL) 117 mEq/L 100-108 H CARBON DIOXIDE (test code = CO2) 19 mEq/l 21-33 L ANION GAP (test code = GAP) 18 0-20 N GLUCOSE (test code = GLU) 309 mg/dL 77-141 H BLOOD UREA NITROGEN (test code = BUN) 16 mg/dL 7-25 N GLOMERULAR FILTRATION RATE (test code = GFR) 81.0 70-80 H The Glomerular Filtration Rate is a calculated parameterbased on serum Creatinine, patient age and sex. GFR valuesless than 60 mL/min/1.73 square meters are indicative ofChronic Kidney Disease. Values less than 15 mL/min/1.73square meters indicate Kidney failure. The calculation forGFR is based on the CKD-EPI (202) calculation. This formulais race indifferent and is the recommended formula for GFRby the National Kidney Foundation for Adults.The GFR will not calculate if the sex is unknown or if thepatient's age is <18 years. CREATININE (test code = CREAT) 1.0 mg/dL 0.6-1.3 N TOTAL PROTEIN (test code = PROT) 7.2 g/dL 6.4-8.2 N ALBUMIN (test code = ALB) 2.60 g/dL 3.4-5.0 L CALCIUM (test code = CA) 8.8 mg/dL 8.0-10.5 N BILIRUBIN TOTAL (test code = BILT) 1.80 mg/dL 0.0-1.0 H SGOT/AST (test code = AST) 94 IUnit/L 8-34 H SGPT/ALT (test code = ALT) 88 IUnit/L 10-49 H ALKALINE PHOSPHATASE TOTAL (test code = ALKP) 199 IUnit/L 20-125 H [id number] 07:30:00* Test Item Value Reference Range Interpretation Comme nts PHOSPHOROUS (test code = PHOS) 2.8 MG/DL 2.5-4.9 N [id number] 07:30:00* Test Item Value Reference Range Interpretation Comme nts MAGNESIUM (test code = MAG) 2.29 mg/dL 1.6-2.6 N GLUCOSE [id number] 07:24:00* Test Item Value Reference Range Interpretation Comme nts GLUCOSE BEDSIDE (test code = GLUBED) 291 MG/DL 70-110 H Performed by cer tified embossograph operator at [facility] CBC W/AUTO [id number] 06:36:00* Test Item Value Reference Range Interpretation Comme nts WHITE BLOOD CELL (test code = WBC) 14.8 x10 3/uL 4.5-11.0 H RED BLOOD CELL (test code = RBC) 4.16 x10 6/uL 4.00-5.60 N HEMOGLOBIN (test code = HGB) 12.5 g/dL 12.5-16.9 N HEMATOCRIT (test code = HCT) 37.6 % 37.5-50.7 N MEAN CELL VOLUME (test code = MCV) 90.4 fL 81.0-99.0 N MEAN CELL HGB (test code = MCH) 30.0 pg 27.0-33.0 N MEAN CELL HGB CONCETRATION (test code = MCHC) 33.2 g/dL 33.0-37.0 N RED CELL DISTRIBUTION WIDTH CV (test code = RDW) 14.0 % 11.5-14.5 N RED CELL DISTRIBUTION WIDTH SD (test code = RDW-SD) 46.2 fL 37.0-54.0 N PLATELET COUNT (test code = PLT) 153 x10 3/uL 150-400 N MEAN PLATELET VOLUME (test code = MPV) 11.3 fL 7.0-9.0 H NEUTROPHIL % (test code = NT%) 76.8 % 56.0-77.0 N IMMATURE GRANULOCYTE % (test code = IG%) 1.4 % 0.0-2.0 N LYMPHOCYTE % (test code = LY%) 8.9 % 14.0-32.0 L MONOCYTE % (test code = MO%) 12.6 % 4.8-9.0 H EOSINOPHIL % (test code = EO%) 0.1 % 0.3-3.7 L BASOPHIL % (test code = BA%) 0.2 % 0.0-2.0 N NUCLEATED RBC % (test code = NRBC%) 0.0 % 0-0 N NEUTROPHIL # (test code = NT#) 11.33 x10 3/uL 2.0-7.6 H IMMATURE GRANULOCYTE # (test code = IG#) 0.21 x10 3/uL 0.00-0.03 H LYMPHOCYTE # (test code = LY#) 1.31 x10 3/uL 1.0-3.8 N MONOCYTE # (test code = MO#) 1.86 x10 3/uL 0.1-0.8 H EOSINOPHIL # (test code = EO#) 0.01 x10 3/uL 0.0-0.2 N BASOPHIL # (test code = BA#) 0.03 x10 3/uL 0.0-0.2 N NUCLEATED RBC # (test code = NRBC#) 0.00 x10 3/uL 0.0-0.1 N GLUCOSE [id number] 15:35:00* Test Item Value Reference Range Interpretation Comme nts GLUCOSE BEDSIDE (test code = GLUBED) 278 MG/DL 70-110 H Performed by cer tified embossograph operator at [facility] GLUCOSE [id number] 11:28:00* Test Item Value Reference Range Interpretation Comme nts GLUCOSE BEDSIDE (test code = GLUBED) 313 MG/DL 70-110 H Performed by cer tified embossograph operator at [facility] GLUCOSE [id number] 08:32:00* Test Item Value Reference Range Interpretation Comme nts GLUCOSE BEDSIDE (test code = GLUBED) 286 MG/DL 70-110 H Performed by cer tified embossograph operator at [facility] GLUCOSE [id number] 05:53:00* Test Item Value Reference Range Interpretation Comme nts GLUCOSE BEDSIDE (test code = GLUBED) 292 MG/DL 70-110 H Performed by cer bety embossograph operator at [facility] COMPREHENSIVE METABOLIC [id number] 02:03:00* Test Item Value Reference Range Interpretation Comme nts SODIUM (test code = NA) 145 mEq/L 134-147 N POTASSIUM (test code = K) 3.8 mEq/L 3.4-5.0 N CHLORIDE (test code = CL) 111 mEq/L 100-108 H CARBON DIOXIDE (test code = CO2) 21 mEq/l 21-33 N ANION GAP (test code = GAP) 16 0-20 N GLUCOSE (test code = GLU) 268 mg/dL 77-141 H BLOOD UREA NITROGEN (test code = BUN) 19 mg/dL 7-25 N GLOMERULAR FILTRATION RATE (test code = GFR) 72.2 70-80 N The Glomerular Filtration Rate is a calculated parameterbased on serum Creatinine, patient age and sex. GFR valuesless than 60 mL/min/1.73 square meters are indicative ofChronic Kidney Disease. Values less than 15 mL/min/1.73square meters indicate Kidney failure. The calculation forGFR is based on the CKD-EPI (202) calculation. This formulais race indifferent and is the recommended formula for GFRby the National Kidney Foundation for Adults.The GFR will not calculate if the sex is unknown or if thepatient's age is <18 years. CREATININE (test code = CREAT) 1.1 mg/dL 0.6-1.3 N TOTAL PROTEIN (test code = PROT) 7.6 g/dL 6.4-8.2 N ALBUMIN (test code = ALB) 2.80 g/dL 3.4-5.0 L CALCIUM (test code = CA) 9.5 mg/dL 8.0-10.5 N BILIRUBIN TOTAL (test code = BILT) 2.30 mg/dL 0.0-1.0 H SGOT/AST (test code = AST) 79 IUnit/L 8-34 H SGPT/ALT (test code = ALT) 87 IUnit/L 10-49 H ALKALINE PHOSPHATASE TOTAL (test code = ALKP) 209 IUnit/L 20-125 H [id number] 02:03:00* Test Item Value Reference Range Interpretation Comme nts PHOSPHOROUS (test code = PHOS) 3.2 MG/DL 2.5-4.9 N [id number] 02:03:00* Test Item Value Reference Range Interpretation Comme nts MAGNESIUM (test code = MAG) 2.36 mg/dL 1.6-2.6 N TROP-I HIGH [id number] 02:03:00* Test Item Value Reference Range Interpretation Comme nts TROP-I HIGH SENSITIVITY (test code = TROPIHS) 323 ng/L 0-54 HH Critical result called to PAM ACUNA RN by [id number] at 0200 08/04/23Nurse read back result and tech confirmed it's correct? YESCAUTION: Units of the current test methodology (ng/L) differfrom the prior test methodology (ng/mL) by a factor of 1000. 99th Percentile Upper Reference Limit (URL): Females: 34 ng/LMales: 54 ng/L In order to distinguish acute elevations of high sensitivitytroponin from other clinical conditions, the FourthUniversal Definition of Myocardial Infarction stressesclinical assessment and the demonstration of a rise and/orfall in serial troponin results above the URL. These results were obtained using [employer] IM TnIHreagent. Results from different methodologies should not becompared to one another as quantitative results and URLs mayvary by method. CBC W/AUTO [id number] 01:31:00* Test Item Value Reference Range Interpretation Comme nts WHITE BLOOD CELL (test code = WBC) 13.3 x10 3/uL 4.5-11.0 H RED BLOOD CELL (test code = RBC) 4.19 x10 6/uL 4.00-5.60 N HEMOGLOBIN (test code = HGB) 12.9 g/dL 12.5-16.9 N HEMATOCRIT (test code = HCT) 38.0 % 37.5-50.7 N MEAN CELL VOLUME (test code = MCV) 90.7 fL 81.0-99.0 N MEAN CELL HGB (test code = MCH) 30.8 pg 27.0-33.0 N MEAN CELL HGB CONCETRATION (test code = MCHC) 33.9 g/dL 33.0-37.0 N RED CELL DISTRIBUTION WIDTH CV (test code = RDW) 13.8 % 11.5-14.5 N RED CELL DISTRIBUTION WIDTH SD (test code = RDW-SD) 45.8 fL 37.0-54.0 N PLATELET COUNT (test code = PLT) 132 x10 3/uL 150-400 L MEAN PLATELET VOLUME (test code = MPV) 10.9 fL 7.0-9.0 H NEUTROPHIL % (test code = NT%) 77.9 % 56.0-77.0 H IMMATURE GRANULOCYTE % (test code = IG%) 1.4 % 0.0-2.0 N LYMPHOCYTE % (test code = LY%) 8.6 % 14.0-32.0 L MONOCYTE % (test code = MO%) 11.8 % 4.8-9.0 H EOSINOPHIL % (test code = EO%) 0.1 % 0.3-3.7 L BASOPHIL % (test code = BA%) 0.2 % 0.0-2.0 N NUCLEATED RBC % (test code = NRBC%) 0.0 % 0-0 N NEUTROPHIL # (test code = NT#) 10.35 x10 3/uL 2.0-7.6 H IMMATURE GRANULOCYTE # (test code = IG#) 0.18 x10 3/uL 0.00-0.03 H LYMPHOCYTE # (test code = LY#) 1.14 x10 3/uL 1.0-3.8 N MONOCYTE # (test code = MO#) 1.56 x10 3/uL 0.1-0.8 H EOSINOPHIL # (test code = EO#) 0.01 x10 3/uL 0.0-0.2 N BASOPHIL # (test code = BA#) 0.02 x10 3/uL 0.0-0.2 N NUCLEATED RBC # (test code = NRBC#) 0.00 x10 3/uL 0.0-0.1 N GLUCOSE [id number] 01:10:00* Test Item Value Reference Range Interpretation Comme nts GLUCOSE BEDSIDE (test code = GLUBED) 229 MG/DL 70-110 H Performed by cer tified embossograph operator at [facility] - XR CHEST 1 [id number] 22:34:00 [facility] 1955 Sex: M FAX: Bryce Serrano MD [phone] [place]: St: ADM Name: MISSY CANALES [facility] [place] : 1955 Age/S: 68/M [address] [place] [address] Unit #: [id number] Loc: [address] [address] Phys: Raphael Ly MD Acct: [id number] Dis Date: Status: ADM IN PHONE #: [phone] Exam Date: 08/03/20232208 FAX #: [phone] Reason: INCREASE WOB EXAMS: CPT CODE: [id number] XR CHEST 1 V 33310 HISTORY: Increased work of breathing Location code: B2 FINDINGS: Frontal view of the chest demonstrates normal cardiomediastinal silhouette. The trachea is midline. The lungs are clear. There is no effusion or pneumothorax. Thebones are intact. Median sternotomy wires noted. IMPRESSION: No acute pulmonary process. at 4414 Reported and signed by: Olegario Tompkins M.D. CC: Bryce Hennessy MD Technologist: Martine Guan RT(R) Trnscrd Date/Time/By: 08/03/2023 (2233): By: JostinRK5 Orig Print D/T: S: 08/03/2023 (2236) PAGE 1 Signed ReportGLUCOSE [id number] 20:21:00* Test Item Value Reference Range Interpretation Comme nts GLUCOSE BEDSIDE (test code = GLUBED) 177 MG/DL 70-110 H Performed by delia albert embossograph operator at [facility] - MRI ABDOMEN W/O [id number] 17:51:00 [facility] 1955 Sex: M FAX: Lisa Almendarez MD [phone] [place]: St: [facility] FAX: Bryce Serrano MD [phone] Name: MISSY CANALES [facility] : 1955 Age/S: 68/M [address] [place] [address] Unit #: [id number] Loc: [address] [place] [address] Phys: Lisa Cancino MD Acct: [id number] Dis Date: Status: ADM IN PHONE #: [phone] Exam Date: 08/03/2023 1710 FAX #: [phone] Reason: elevated lfts EXAMS: CPT CODE: [id number] MRI ABDOMEN W/O CON 79794 EXAM: - MRI ABDOMEN W/O CON LOCATION: H65 HISTORY: elevated lfts COMPARISON: Ultrasound abdomen 08/03/2023 TECHNIQUE: Multiplanar multisequence MR imaging was obtained of the abdomen utilizing MRCP protocol. 3-D images were created from the data set. FINDINGS: Statements: This evaluation is limited to assessment of the biliary tree. GALLBLADDER: Adequately distended with mild wall thickening. There is soft tissue stranding around the gallbladder neck region. COMMON BILE DUCT:Normal caliber and no filling defects. Measures up to 3 mm in diameter INTRAHEPATIC BILE DUCTS: Unre markable. OTHER: There is a 4.6 x 3.6 x 3.0 cm thick-walled complex appearing heterogeneous T2 hyperintense lesion noted just superior to the gallbladder in hepatic segment 5. There appears to be minimal communication between the gallbladder and this cystic area. The pancreas, spleen, adrenal glands, and kidneys are unremarkable. IMPRESSION: Suspect mild acute cholecystitis. No choledocholithiasis or biliary ductal dilation. 4.6 x 3.6 x 3.0 cm thick-walled complex cystic lesion/fluid collection noted in hepatic segment 5 abutting the gallbladder fossa with suspect minimal communication to the gallbladder lumen. This is concerning for abscess as sequelae of intrahepatic gallbladder perfora tion. Recommend follow-up CT versus MRI abdomen without and with contrast for further assessment ofthis area. PAGE 1 Signed Report (CONTINUED) FAX: Lisa Almendarez MD [phone] [place]: St: [facility] FAX: Bryce Serrano MD [phone] Name: MISSY CANALES [facility] : 1955 Age/S: 68/M [address] [place] [address] Unit #: [id number] Loc: [address] [address] Phys: Lisa Cancino MD Acct: [id number] Dis Date: Status: ADM IN PHONE #: [phone] Exam Date: 08/03/2023 171 FAX #: [phone] Reason: elevated lfts EXAMS: CPT CODE: [id number] MRI ABDOMEN W/O CON 78065 (Continued) at 1751 Reported and signed by: Alonso Huerta D.O. CC: Lisa Cancino MD; Bryce Hennessy MD Technologist: Juan Luis Ortega, RT(R)(CT)(MR) Trnscrd Date/Time/By:08/03/2023 (1750) : By: [email or web address] Orig Print D/T: S: 08/03/2023 (1754) PAGE 2 Signed Report GLUCOSE [id number] 16:47:00* Test Item Value Reference Range Interpretation Comme nts GLUCOSE BEDSIDE (test code = GLUBED) 187 MG/DL 70-110 H Performed by cer tified embossograph operator at [facility] GLUCOSE [id number] 13:28:00* Test Item Value Reference Range Interpretation Comme nts GLUCOSE BEDSIDE (test code = GLUBED) 182 MG/DL 70-110 H Performed by cer tified embossograph operator at [facility] GLUCOSE [id number] 12:04:00* Test Item Value Reference Range Interpretation Comme nts GLUCOSE BEDSIDE (test code = GLUBED) 224 MG/DL 70-110 H Performed by cer tified embossograph operator at [facility] UA RFLX MICR CULT IF [id number] 09:15:00* Test Item Value Reference Range Interpretation Comme nts UA COLOR (test code = COLU) SANDRA YEL/STRAW A UA APPEARANCE (test code = APPU) CLEAR CLEAR UA GLUCOSE DIPSTICK (test co de = DGLUU) 3+ NEGATIVE A UA BILIRUBIN DIPSTICK (test code = BILU) NEGATIVE NEGATIVE UA KETONE DIPSTICK (test cod e = KETU) 1+ NEGATIVE A UA SPECIFIC GRAVITY (test co de = SGU) 1.020 1.005-1.030 N UA BLOOD DIPSTICK (test code = ERIKA) 1+ NEGATIVE A UA PH DIPSTICK (test code = CALDERON) 5.0 5.0-7.0 N UA PROTEIN DIPSTICK (test co de = PROU) 2+ NEGATIVE A UA UROBILINIOGEN DIPSTICK (t est code = URO) 4.0 mg/dL 0.2-1.0 A UA NITRITE DIPSTICK (test co de = RAFFI) NEGATIVE NEGATIVE UA LEUKOCYTE ESTERASE DIPSTI CK (test code = LEUU) NEGATIVE NEGATIVE UA WBC (test code = WBCU) 0-3 WBC/HPF 0-3 UA RBC (test code = RBCU) 11-20 RBC/HPF 0-3 UA WBC NO REFLEX (test code = WBCUCL) 0-3 WBC/HPF 0-3 UA BACTERIA (test code = BACU) TRACE /HPF NONE SEEN UA SQUAMOUS CELLS (test code = SQU) 0-5 /HPF NONE SEEN UA TRANSITIONAL CELLS (test code = TRANU) TRACE /HPF NONE SEEN UA RENAL CELLS (test code = OLAMIDE) TRACE /HPF NONE SEEN A UA HYALINE CAST (test code = HYALU) 0-2 /LPF NONE SEEN Indication for culture: Dysuria/FrequencySpecimen Description: Clean Catch LIPOPROTEIN [id number] 09:03:00* Test Item Value Reference Range Interpretation Comme nts LIPOPROTEIN LDL (test code = LDL) 37.0 mg/dL 0-100 N <100 [id number] 0-129 NEAR OPTIMAL/ABOVE [id number] HIGH>SI=078 VERY HIGH*Guidelines provided by the National Cholesterol EducationProgram Adult Treatment Panel III BASIC METABOLIC [id number] 08:44:00* Test Item Value Reference Range Interpretation Comme nts SODIUM (test code = NA) 139 mEq/L 134-147 N POTASSIUM (test code = K) 4.5 mEq/L 3.4-5.0 N CHLORIDE (test code = CL) 104 mEq/L 100-108 N CARBON DIOXIDE (test code = CO2) 20 mEq/l 21-33 L ANION GAP (test code = GAP) 20 0-20 N GLUCOSE (test code = GLU) 237 mg/dL 77-141 H BLOOD UREA NITROGEN (test code = BUN) 20 mg/dL 7-25 N GLOMERULAR FILTRATION RATE (test code = GFR) 65.1 70-80 L The Glomerular Filtration Rate is a calculated parameterbased on serum Creatinine, patient age and sex. GFR valuesless than 60 mL/min/1.73 square meters are indicative ofChronic Kidney Disease. Values less than 15 mL/min/1.73square meters indicate Kidney failure. The calculation forGFR is based on the CKD-EPI (2020) calculation. This formulais race indifferent and is the recommended formula for GFRby the National Kidney Foundation for Adults.The GFR will not calculate if the sex is unknown or if thepatient's age is <18 years. CREATININE (test code = CREAT) 1.2 mg/dL 0.6-1.3 N CALCIUM (test code = CA) 9.6 mg/dL 8.0-10.5 N HEPATIC FUNCTION [id number] 08:44:00* Test Item Value Reference Range Interpretation Comme nts TOTAL PROTEIN (test code = PROT) 7.9 g/dL 6.4-8.2 N ALBUMIN (test code = ALB) 3.10 g/dL 3.4-5.0 L BILIRUBIN TOTAL (test code = BILT) 3.70 mg/dL 0.0-1.0 H BILIRUBIN DIRECT (test code = BILD) 2.80 MG/DL 0.1-0.3 H BILIRUBIN INDIRECT (test cod e = BILIND) 0.90 MG/DL SGOT/AST (test code = AST) 79 IUnit/L 8-34 H SGPT/ALT (test code = ALT) 105 IUnit/L 10-49 H ALKALINE PHOSPHATASE TOTAL ( test code = ALKP) 225 IUnit/L 20-125 H [id number] 08:44:00* Test Item Value Reference Range Interpretation Comme nts LIPASE (test code = LIP) 82 U/L 13-57 H TROP-I HIGH [id number] 08:44:00* Test Item Value Reference Range Interpretation Comme nts TROP-I HIGH SENSITIVITY (test code = TROPIHS) 330 ng/L 0-54 HH Critical result called to YONATAN TINOCO, RNby [id number] at 0844 08/03/23Nurse read back result and tech confirmed it's correct? YESCAUTION: Units of the current test methodology (ng/L) differfrom the prior test methodology (ng/mL) by a factor of 1000. 99th Percentile Upper Reference Limit (URL): Females: 34 ng/LMales: 54 ng/L In order to distinguish acute elevations of high sensitivitytroponin from other clinical conditions, the FourthUniversal Definition of Myocardial Infarction stressesclinical assessment and the demonstration of a rise and/orfall in serial troponin results above the URL. These results were obtained using [employer] IM TnIHreagent. Results from different methodologies should not becompared to one another as quantitative results and URLs mayvary by method. CBC W/AUTO [id number] 08:24:00* Test Item Value Reference Range Interpretation Comme nts WHITE BLOOD CELL (test code = WBC) 15.4 x10 3/uL 4.5-11.0 H RED BLOOD CELL (test code = RBC) 4.28 x10 6/uL 4.00-5.60 N HEMOGLOBIN (test code = HGB) 13.0 g/dL 12.5-16.9 N HEMATOCRIT (test code = HCT) 39.0 % 37.5-50.7 N MEAN CELL VOLUME (test code = MCV) 91.1 fL 81.0-99.0 N MEAN CELL HGB (test code = MCH) 30.4 pg 27.0-33.0 N MEAN CELL HGB CONCETRATION (test code = MCHC) 33.3 g/dL 33.0-37.0 N RED CELL DISTRIBUTION WIDTH CV (test code = RDW) 13.8 % 11.5-14.5 N RED CELL DISTRIBUTION WIDTH SD (test code = RDW-SD) 46.3 fL 37.0-54.0 N PLATELET COUNT (test code = PLT) 121 x10 3/uL 150-400 L MEAN PLATELET VOLUME (test code = MPV) 11.3 fL 7.0-9.0 H NEUTROPHIL % (test code = NT%) 80.9 % 56.0-77.0 H IMMATURE GRANULOCYTE % (test code = IG%) 0.4 % 0.0-2.0 N LYMPHOCYTE % (test code = LY%) 8.5 % 14.0-32.0 L MONOCYTE % (test code = MO%) 10.1 % 4.8-9.0 H EOSINOPHIL % (test code = EO%) 0.0 % 0.3-3.7 L BASOPHIL % (test code = BA%) 0.1 % 0.0-2.0 N NUCLEATED RBC % (test code = NRBC%) 0.0 % 0-0 N NEUTROPHIL # (test code = NT#) 12.44 x10 3/uL 2.0-7.6 H IMMATURE GRANULOCYTE # (test code = IG#) 0.06 x10 3/uL 0.00-0.03 H LYMPHOCYTE # (test code = LY#) 1.30 x10 3/uL 1.0-3.8 N MONOCYTE # (test code = MO#) 1.56 x10 3/uL 0.1-0.8 H EOSINOPHIL # (test code = EO#) 0.00 x10 3/uL 0.0-0.2 N BASOPHIL # (test code = BA#) 0.02 x10 3/uL 0.0-0.2 N NUCLEATED RBC # (test code = NRBC#) 0.00 x10 3/uL 0.0-0.1 N Notes Date/Time Note Provider Source 2023-09-19 13:31:00 [id number] [id number] [id number]0:31:677102-1015 [place] [address] PATIENT NAME: MISSY CANALES ADMIT DATE: 08/03/23ACCOUNT NO: [id number] ROOM NO: [id number] AGE: 68 REPORT TYPE: 360 - QUERY RESPONSE DOCUMENT SEX: M ADMITTING PHYSICIAN:Raphael Ly MD ATTENDING PHYSICIAN:Raphael Ly MD Provider Query QUERY TEXT: POA Indicator 360MD Query related questions should be directed to:[facility] Coding Query Helpline Please indicate if the diagnosis of [Sepsis] was present on admission? The patient's Clinical Indicators include:Sepsis; Hospitalist Progress Note 08/05/2023 (1)Options provided:-- Yes-- No-- W-- Other - I will add my own diagnosis-- Dismiss - Not applicable / Not valid-- Dismiss - Clinically unable to determine / Unknown-- Assign to another provider QUERY RESPONSE: Yes- The condition was present at the time of inpatient admission. Query created by: Teri Arvizu on 09/18/2023 1:29 AM at 1331 PATIENT NAME: MISSY CANALES noteG.[id number] for patient [id number]:32:16 [facility] 2023-09-14 16:23:00 [id number] 6Yt0Wgk4wjjW5UqHoab ur5+b3s1PJ2kb+qIc2913-63-47K54:23:00 [facility] Progress NoteREPORT#:[id number] REPORT STATUS: SignedREPORT INITIALIZATION DATE:09/14/23 TIME: 1622 PATIENT: MISSY CANALES UNIT #: [id number]#: [id number] [address] [birth year] AGE: 68 SEX: M ATTEND: Raphael Ly [facility] AUTHOR: Glenny Mclaughlin FNPREPT SERVICE DT/TIME: 09/14/231622* ALL edits or amendments must be made on the electronic/computer document * Objective GeneralVS:Last Documented: Result Date Time Pulse Ox 99 09/13 1103 B/P 111/75 09/13 1103 B/P Mean 87.1 09/13 1103 O2 Delivery Room air 09/13 1103 Temp 37.0 09/13 1103 Pulse 84 09/13 1103 Resp 14 09/13 1103 O2 Flow Rate 2 08/27 1022 FiO2 40 08/07 0752 PATIENT WEIGHT: Weight (lb): 177Weight (oz): 14.61Weight (kg): 80.286 Diagnosis, Assessment PlanHospital course to date:Patient seen and examined. Spoke with Ms. Canales regarding goals of care including plan to possibly transfer to skill nursing facility versus palliative care versus hospice. She stated, "she needs additional time and does not want to have discussion right now" I will continue to support the patient and family during this difficult time. Thank you for allowing me to assist in the care of Mr. Missy Canales. Time spent - 1730 - 1800 - 30 minutes. 08-22-2023 Patient seen and examined. Spoke with Ms. Canales regarding goals of care including plan to possibly transfer to skill nursing facility versus palliative care versus hospice. She stated, "I will check out the senior care facilities today and need additional time". I will continue to support the patient and family during this difficult time. Thank you for allowing me to assist in the care of Mr. Missy Canales. Time spent - 1130 - 1200 - 30 minutes. 08-23-2023 Patient seen and examined. Spoke with Ms. Canales at bedside regarding goals of care including plan to possibly transfer to skill nursing facility versus palliative care versus hospice. She stated, "He is going to [facility] then to rehab". Explained the benefits of oupatient palliative care and discussed advance directives including living will and MPO[facility] if he is oriented to make decisions. No changes at this time. I will continue to support the patient and family during this difficult time. Thank you for allowing me to assist in the care of Mr. Missy Canales. Time spent - 1730 - 1800 - 30 minutes. 08-27-2023 Patient seen and examined. Spoke with Ms. Canales regarding goals of care - she intends to have her spouse go to SNF. I will continue to support the patient and family during this difficult time. Thank you for allowing me to assist in the care of Mr. Missy Canales. Time spent - 1330 - 1400 - 30 minutes. 08-28-2023 Patient seen and examined. Spoke with Ms. Canales regarding goals of care - no changes in [facility] plan to discharge to SNF. Case management assisting family with SNF. I will continue to support the patient and family during this difficult time. Thank you for allowing me to assist in the care of Mr. Missy Canales. Time spent - 1430 - 1500 - 30 minutes. 08-29-2023 Patient seen and examined. Spoke with Ms. Canales regarding goals of care - no changes in GOC plan to discharge to SNF. I will continue to support the patient and family during this difficult time. Thank you for allowing me to assist in the care of Mr. Missy Canales. Time spent - 30 minutes 09-04-2023 Patient seen and examined. no changes in GOC plan to discharge to SNF accordingto patient's spouse. I will continue to support the patient and family during this difficult time. Thank you for allowing me to assist in the care of Mr. Parikh. Time spent - 30 minutes 09-05-2023 Patient seen and examined. Patient's spouse at bedside reports plan for patientto go to SNF . I will continue to support the patient and family during this difficult time. Thank you for allowing me to assist in the care of Mr. Missy Canales. Time spent 0930 - 1000 - 30 minutes 09-06-2023 Patient seen and examined. Patient's spouse at bedside . No changes in care and no questions at this time. Discussed outpatient palliative care to prevent future hospitalization. No changes at this time. I will continue to support the patient and family during this difficult time. Thank you for allowing me toassist in the care of Mr. Missy Canales. Time spent- 0900 - 930 - 30 minutes 09-07-2023 Patient seen and examined. No changes in care and no questions at this time. Case management assisting with discharge planning for today. I will continue tosupport the patient and family during this difficult time. Thank you for allowing me to assist in the care of Mr. Missy Canales. Time spent- 0900 - 920 - 20 minutes 09-12-2023 Patient seen and examined. Spoke with patient's spouse via phone, patient and son at bedside regarding discharge home with outpatient palliative care benefitsto prevent future hospitalizations. Agreed to outpatient palliative care. Notified Dr. Clyde Lares DO. I will continue to support the patient and family during this difficult time. Thank you for allowing me to assist in the care of Mr. Missy Canales. Time spent- 0900 - 920 - 20 minutes 09-13-2023 Patient seen and examined. Patient currently receiving assistance from case management with discharge planning. No questions nor changes at this time. I will continue to support the patient and family during this difficult time. Thank you for allowing me to assist in the care of Mr. Missy Canales. Time spent- 7248 - 380 - 20 minutes 09-14-2023 Patient seen and examined. Patient currently receiving assistance from case management with discharge planning. No changes at this time. I will continue to support the patient and family during this difficult time. Thank you for allowing me to assist in the care of Mr. Missy Canales. Time spent- 3607 - 790 - 20 minutes Quality Current MedicationsCurrent medication review:I attest that the foregoing medication list in the medical record is true, accurate, and complete to the best of my knowledge. Advanced Care Plan 65 or OlderDiscussed with: patient, surrogate decis. maker at 0902 RPT #:[id number] OF REPORTPRProgress [id number]:23:00G.[id number] for patient cstbGDRKXKXQGEGJHJ1531-27-18E42:05:54 [facility] 2023-09-14 12:54:00 [id number] ibMRxKEcV3eF+Nq5LiK +YBaBkHc2XbpxNscR7498-03-13O26:54:00 [facility])Endocrinology Progress NoteREPORT#:[id number] REPORT STATUS: SignedREPORT INITIALIZATION DATE:09/14/23 TIME: 1254 PATIENT: MISSY CANALES UNIT #: [id number]#: [id number] [address]DOB: [birth year] AGE: 68 SEX: M ATTEND: Raphael Ly MDAJON AUTHOR: Agus Duckworth APRNNPREPT SERVICE DT/TIME: 09/14/23 1152* ALL edits or amendments must be made on the electronic/computer document * SubjectiveChief complaint:f/u DM IItolerating dietinsulin discussed with and follow up Objective GeneralVS:Last Documented: Result Date Time Pulse Ox 99 09/13 1103 B/P 111/75 09/13 1103 B/P Mean 87.1 09/13 1103 O2 Delivery Room air 09/13 1103 Temp 98.6 09/13 1103 Pulse 84 09/13 1103 Resp 14 09/13 1103 O2 Flow Rate 2 08/27 1022 FiO2 40 08/07 0752 PATIENT WEIGHT: Weight (lb): 177Weight (oz): 14.61Weight (kg): 80.286 Medications:Active Meds + DC'd Last 24 HrsInsulin Human Lispro (HUMALOG) 4 UNIT AC SUBQ Metoprolol Tartrate (LOPRESSOR) 25 MG BID PO Acetaminophen (TYLENOL) 650 MG Q4H PRN PRN RECTAL Magnesium Oxide (MAG-OX 400) 800 MG DAILY PO Potassium Chloride (K-CHAPITO 20 MEQ PACKET) 40 MEQ DAILY PO Collagenase (SANTYL 2GM TOPICAL) 1 APPLIC DAILY TOPICAL Zinc Oxide (ZINC OXIDE 30 GM OINTMENT) 1 APPLIC BID TOPICAL Amiodarone HCl (CORDARONE) 200 MG BID 9A 5P FEED-TUBE Apixaban (ELIQUIS 5MG TABLET) 5 MG BID 9A 5P PO Pantoprazole (PROTONIX) 40 MG BID AC PO Insulin Glargine (Semglee) 20 UNIT DAILY SUBQ Tamsulosin HCl (Flomax 0.4 mg) 0.4 MG PC BK PO Insulin Human Lispro (HUMALOG) 0 AC HS SUBQ Atorvastatin Calcium (LIPITOR) 40 MG BEDTIME PO Lactulose (LACTULOSE) 20 GM Q12HR PO Senna/Docusate Sodium (SENOKOT S) 1 TAB Q12HR PO Allopurinol (ZYLOPRIM) 300 MG DAILY PO Aspirin (ASPIRIN) 81 MG DAILY PO Acetaminophen (TYLENOL) 650 MG Q6H PRN PRN PO Bisacodyl (DULCOLAX) 10 MG DAILY PRN PRN RECTAL Polyethylene Glycol (MIRALAX) 17 GM Q12H PO Dextrose/Water (DEXTROSE 10% IN WATER) 125 ML ASDIR PRN IV (CKD) Dextrose/Water (DEXTROSE 10% IN WATER) 250 ML ASDIR PRN IV (CKD) Glucagon (GLUCAGON) 1 MG ASDIR PRN IM Sodium Chloride (SODIUM CHLORIDE 0.9%) 250 ML BOLUS PRN IV Latanoprost (XALATAN 2.5 ML OPHTH SOLN) 1 DROP BEDTIME EACH EYE Timolol Maleate (TIMOPTIC 0.5% 5 ML OPHTH SOLN) 1 DROP BID EACH EYE Brimonidine Tartrate (Alphagan-P 0.2% 5 ML OPHTH SOLN) 1 DROP Q8HR EACH EYE Hydralazine HCl (APRESOLINE) 10 MG Q6H PRN PRN IV Ondansetron HCl (ZOFRAN) 4 MG Q4H PRN PRN IV Dietitian nutrition assessmentThe data set between the solid lines has been imported from the dietitian's assessment. BMI Calculated: 27.7Nutrition related diagnosis: OverweightNutrition diagnosis details: BMI 25-29.9Nutrition problem: Increased nutrient needsNutrition etiology: Decreased mobilityNutrition signs and symptoms: ENTERAL NUTRITION TO MEET , ENERGY NEEDS , (DIET ADVANCED TO PUREED AND, TOLERATED.), Pressure injuryNutrition prescription: 1. RECOMMEND PUREED CCD5 DIET. 2. PROVIDE GLUCERNA TID WITH MEALS/SAMEER BID 3. MONITOR PO, WT, LABS, BM.Dietitian name: Rohan Sarah, DIETAssessment completed: 09/12/23 Physical ExamGeneral appearance: alert, awakeHEENT: atraumatic, clear cornea, normocephalicNeck: suppleCardiovascular: regular rate rhythmRespiratory: no distressAbdomen: softGenitourinary: not indicatedExtremities: warmNeuro/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: alertSkin: warmFindings/data:Laboratory Tests: 09/13 1633 Chemistry POC Glucose (70 - 110 MG/DL) 157 H 160 H 217 H Laboratory Tests: 09/13 1633 Chemistry POC Glucose (70 - 110 MG/DL) 157 H 160 H 217 H Diagnosis, Assessment PlanFree Text A P:1.DM ZUSydZ1x 8.2adjust Lantus adjust Humalog monitor glucose diabetic diet DC Plan: Lantus and Humalog, follow at next available appointment. 2.Abnormal thyroid functions 08/06 TSH 0.07 FT4 1 recheck in a couple of days 3.Suspected ischemic strokeMRI brain without contrastEchocardiogramTelemetryneurology following 4.Coronary artery diseasePCI on July 03, 2023Echocardiogram preserved LVEFdual antiplateletscardiology following 5. Elevated LFTsGI following 6.MRCP with complex cystic fluid collectionpost drainage surgery following at 1425 at 1605 RPT #:[id number] OF REPORTPRProgress yokn0910-54-89S31:54:00G.[id number] for patient dtnuVESEFSEDVKDCEP3614-26-51L66:25:58 [facility] 2023-09-14 11:50:00 [id number] F3sOMerPl2PR1zU1wXF OIkBfFsZvXZxOUKdq0218-67-05O08:50:00 [facility] ([facility])Wound Care Progress NoteREPORT#:[id number] REPORT STATUS: SignedREPORT INITIALIZATION DATE:09/14/23 TIME: 115 PATIENT: MISSY CANALES UNIT #: [id number]#: [id number] [address] [birth year] AGE: 68 SEX: M ATTEND: Raphael Ly MDADM AUTHOR: Lilly RigginsPT SERVICE DT/TIME: 09/14/23 1150* ALL edits or amendments must be made on the electronic/computer document * Lilly Riggins 09/14/23 1150:SubjectiveChief complaint:both heels and sacralHPI:68-year-old male being seen for follow-up of all his wounds. is at bedside.Nursing reports:No: complaints. Objective GeneralVS:Last Documented: Result Date Time Pulse Ox 99 09/13 1103 B/P 111/75 09/13 1103 B/P Mean 87.1 09/13 1103 O2 Delivery Room air 09/13 1103 Temp 37.0 09/13 1103 Pulse 84 09/13 1103 Resp 14 09/13 1103 O2 Flow Rate 2 08/27 1022 FiO2 40 08/07 0752 PATIENT WEIGHT: Weight (lb): 177Weight (oz): 14.61Weight (kg): 80.286 Medications:Active Meds + DC'd Last 24 HrsInsulin Human Lispro (HUMALOG) 4 UNIT AC SUBQ Metoprolol Tartrate (LOPRESSOR) 25 MG BID PO Acetaminophen (TYLENOL) 650 MG Q4H PRN PRN RECTAL Magnesium Oxide (MAG-OX 400) 800 MG DAILY PO Potassium Chloride (K-CHAPITO 20 MEQ PACKET) 40 MEQ DAILY PO Collagenase (SANTYL 2GM TOPICAL) 1 APPLIC DAILY TOPICAL Zinc Oxide (ZINC OXIDE 30 GM OINTMENT) 1 APPLIC BID TOPICAL Amiodarone HCl (CORDARONE) 200 MG BID 9A 5P FEED-TUBE Apixaban (ELIQUIS 5MG TABLET) 5 MG BID 9A 5P PO Pantoprazole (PROTONIX) 40 MG BID AC PO Insulin Glargine (Semglee) 20 UNIT DAILY SUBQ Tamsulosin HCl (Flomax 0.4 mg) 0.4 MG PC BK PO Insulin Human Lispro (HUMALOG) 0 AC HS SUBQ Atorvastatin Calcium (LIPITOR) 40 MG BEDTIME PO Lactulose (LACTULOSE) 20 GM Q12HR PO Senna/Docusate Sodium (SENOKOT S) 1 TAB Q12HR PO Allopurinol (ZYLOPRIM) 300 MG DAILY PO Aspirin (ASPIRIN) 81 MG DAILY PO Acetaminophen (TYLENOL) 650 MG Q6H PRN PRN PO Bisacodyl (DULCOLAX) 10 MG DAILY PRN PRN RECTAL Polyethylene Glycol (MIRALAX) 17 GM Q12H PO Dextrose/Water (DEXTROSE 10% IN WATER) 125 ML ASDIR PRN IV (CKD) Dextrose/Water (DEXTROSE 10% IN WATER) 250 ML ASDIR PRN IV (CKD) Glucagon (GLUCAGON) 1 MG ASDIR PRN IM Sodium Chloride (SODIUM CHLORIDE 0.9%) 250 ML BOLUS PRN IV Latanoprost (XALATAN 2.5 ML OPHTH SOLN) 1 DROP BEDTIME EACH EYE Timolol Maleate (TIMOPTIC 0.5% 5 ML OPHTH SOLN) 1 DROP BID EACH EYE Brimonidine Tartrate (Alphagan-P 0.2% 5 ML OPHTH SOLN) 1 DROP Q8HR EACH EYE Hydralazine HCl (APRESOLINE) 10 MG Q6H PRN PRN IV Ondansetron HCl (ZOFRAN) 4 MG Q4H PRN PRN IV Dietitian Nutrition assessmentThe data set between the solid lines has been imported from the dietitian's assessment. BMI Calculated: 27.7Nutrition related diagnosis: OverweightNutrition diagnosis details: BMI 25-29.9Nutrition problem: Increased nutrient needsNutrition etiology: Decreased mobilityNutrition signs and symptoms: ENTERAL NUTRITION TO MEET , ENERGY NEEDS , (DIET ADVANCED TO PUREED AND, TOLERATED.), Pressure injuryNutrition prescription: 1. RECOMMEND PUREED CCD5 DIET. 2. PROVIDE GLUCERNA TID WITH MEALS/SAMEER BID 3. MONITOR PO, WT, LABS, BM.Dietitian name: Rohan Sarah, DIETAssessment completed: 09/12/23 Physical ExamGeneral appearance: awakeRespiratory: no distressSkin: open wounds. Wound AssessmentWound Assessment 1: Type/cause: pressure Wound location: heel (right and left) Site condition: necrotic tissue Stage of pressure ulcer: unstageableWound Assessment 2: Type/cause: pressure Wound location: sacral region Site condition: dehiscence, drainage Stage of pressure ulcer: stage III Wound margins: open ResultsFindings/Data:Laboratory Tests: 09/13 09/12 09/12 0744 2021 1633 Chemistry POC Glucose (70 - 110 MG/DL) 157 H 160 H 217 H Diagnosis, Assessment PlanProblem List/A P: 1. Pressure ulcer of sacral region, stage 3 2. Pressure ulcer, heel, right, unstageable 3. Pressure ulcer, heel, left, unstageable 4. Anemia 5. Failure to thrive Free Text A P:09/02/2023: Will continue with the Santyl to the heel areas. Will continue with the gentamicin to the sacral area. Anemia, which will impede wound healing, defer to the primary care team. Albumin is on the lower end which will also impede wound healing. Recommend dietary input. 09/03/2023: Patient currently in bed, no issues reported overnight; patient's blood sugars between 150-240s. Patient is currently taking Sameer, he is anemic and his albumin in low. Will continue Santyl in the bilateral heels and gentamicin in the sacral areas. 09/04/2023: Patient currently in bed, no issues reported overnight; patient's blood sugars between are stable today. Patient is currently taking Sameer. Will continue Santyl in the bilateral heels and gentamicin in the sacral areas. 09/05/2023: Patient resting in bed, at bedside and all concerns addressed. patient's blood sugars between normal levels . Patient is currently taking Sameer. Will continue Santyl in the bilateral heels and gentamicin in the sacral areas. Keep patient offload, apply Prevalon Boots and nutritional support. 09/06/2023: Patient resting in bed, and primary nurse at bedside. Patient'sblood sugars between normal levels . Patient is currently taking Sameer. Will continue Santyl in the bilateral heels and gentamicin in the sacral areas. Keep patient offload, apply Prevalon Boots and nutritional support. 09/07/2023: Patient resting in bed, no issues overnight. Patient's blood sugars between normal levels . Patient is currently taking Sameer. Will continue Santyl in the bilateral heels and gentamicin in the sacral areas. Keep patient offload,apply Prevalon Boots and nutritional support. 09/10/2023: Patient resting in bed, no issues overnight per . Patient's blood sugars between normal levels Will continue Santyl in the bilatera. isconcer regarding discharge, she feels that he needs LTAC to get physical therapyto get better. We will continue applying santyl to the heels and gentamicin in the sacral areas. Keep patient offload, apply Prevalon Boots and nutritional support. 09/11/2023: Patient resting in bed, no issues overnight per . stated that she is still waiting for LTAC or home health at this time. We will continueapplying santyl to the heels and gentamicin in the sacral areas. Keep patient offload, apply Prevalon Boots and nutritional support. 09/12/2023: Patient is resting in bed comfortable this morning, primary nurse is at bedside, she states that patient is doing well the bed has been applying the Santyl as prescribed, and also the gentamicin in the affected areas. Per nurse,awaiting for LTAC for home health placement. We will continue with the same treatment. 09/13/2023: Patient is resting in bed comfortable this morning, is at bedside, she states that patient is doing well and the nurses had been applying Santyl in the bilateral heels, and also the gentamicin in the buttocks area. Keep offloaded, specialty matress and nutritional support. 09/14/2023: Patient is resting in bed comfortable this morning, is at bedside, she reports that pt may be discharging today, instructed to follow-up outpt with a customer solutions specialist doctor in her area. Patient is doing welland the nurses had been applying Santyl in the bilateral heels, and also the gentamicin in the buttocks area. Keep offloaded, specialty matress and nutritional support. Tano Sanchez 09/25/23 0745:AttestationsAttestation needed: supervising physician Physician AttestationAgree w/findings plan:Agree with the findings and plan as documented by ANGEL Lindsey* my personal evaluation isReviewed and agree with the history, physical findings, diagnosis and managementplan with ANGEL Lindsey at 1152 at 0757 RPT #:[id number] OF REPORTPNProcedure kpru4451-71-84Q49:50:00G.[id number] for patient jttjCZPORWMNRWVMVX8188-21-77B27:53:20 [facility] 2023-09-14 11:31:00 [id number] xY9fdRHEGSgCnos6NHL t0BWrpv5CVvFM74zB2716-84-19J87:31:00 [facility] CenterHospital[facility] Progress NoteREPORT#:[id number] REPORT STATUS: SignedREPORT INITIALIZATION DATE:09/14/23 TIME: 113 PATIENT: MISSY CANALES UNIT #: [id number]#: [id number] ROOM/BED: 6617-1DOB: [birth year] AGE: 68 SEX: M ATTEND: Raphael Ly MDADM AUTHOR: Clyde Lares DOREPT SERVICE DT/TIME: 09/14/23 1131* ALL edits or amendments must be made on the electronic/computer document * SubjectiveChief complaint:Patient is resting comfortably in bed this morning in no acute distress Objective GeneralVS/I O:Vital Signs: Date Time Temp Pulse Resp B/P B/P Pulse O2 O2 Flow FiO2 Mean Ox Delivery Rate 09/13 1103 98.6 84 14 111/75 87.1 99 Room air 09/13 0745 99.3 96 16 111/76 0.0 100 Room air 09/13 0407 97.9 99 16 112/78 89.1 100 Room air 09/12 2334 99.3 100 16 107/75 85.8 99 Room air 09/12 1908 99.1 100 16 125/81 95.6 100 Room air 09/12 1634 98.4 92 17 112/73 85.9 100 Room air 24 hour I O ending at 0700: 09/13 0700 09/12 1900 Intake Total Output Total 1050 Balance -1050 Number 0 Bowel Movements Output, Urine 1050 PATIENT WEIGHT: Weight (lb): 177Weight (oz): 14.61Weight (kg): 80.286 Medications:Active Meds + DC'd Last 24 HrsInsulin Human Lispro (HUMALOG) 4 UNIT AC SUBQ Metoprolol Tartrate (LOPRESSOR) 25 MG BID PO Acetaminophen (TYLENOL) 650 MG Q4H PRN PRN RECTAL Magnesium Oxide (MAG-OX 400) 800 MG DAILY PO Potassium Chloride (K-CHAPITO 20 MEQ PACKET) 40 MEQ DAILY PO Collagenase (SANTYL 2GM TOPICAL) 1 APPLIC DAILY TOPICAL Zinc Oxide (ZINC OXIDE 30 GM OINTMENT) 1 APPLIC BID TOPICAL Amiodarone HCl (CORDARONE) 200 MG BID 9A 5P FEED-TUBE Apixaban (ELIQUIS 5MG TABLET) 5 MG BID 9A 5P PO Pantoprazole (PROTONIX) 40 MG BID AC PO Insulin Glargine (Semglee) 20 UNIT DAILY SUBQ Tamsulosin HCl (Flomax 0.4 mg) 0.4 MG PC BK PO Insulin Human Lispro (HUMALOG) 0 AC HS SUBQ Atorvastatin Calcium (LIPITOR) 40 MG BEDTIME PO Lactulose (LACTULOSE) 20 GM Q12HR PO Senna/Docusate Sodium (SENOKOT S) 1 TAB Q12HR PO Allopurinol (ZYLOPRIM) 300 MG DAILY PO Aspirin (ASPIRIN) 81 MG DAILY PO Acetaminophen (TYLENOL) 650 MG Q6H PRN PRN PO Bisacodyl (DULCOLAX) 10 MG DAILY PRN PRN RECTAL Polyethylene Glycol (MIRALAX) 17 GM Q12H PO Dextrose/Water (DEXTROSE 10% IN WATER) 125 ML ASDIR PRN IV (CKD) Dextrose/Water (DEXTROSE 10% IN WATER) 250 ML ASDIR PRN IV (CKD) Glucagon (GLUCAGON) 1 MG ASDIR PRN IM Sodium Chloride (SODIUM CHLORIDE 0.9%) 250 ML BOLUS PRN IV Latanoprost (XALATAN 2.5 ML OPHTH SOLN) 1 DROP BEDTIME EACH EYE Timolol Maleate (TIMOPTIC 0.5% 5 ML OPHTH SOLN) 1 DROP BID EACH EYE Brimonidine Tartrate (Alphagan-P 0.2% 5 ML OPHTH SOLN) 1 DROP Q8HR EACH EYE Hydralazine HCl (APRESOLINE) 10 MG Q6H PRN PRN IV Ondansetron HCl (ZOFRAN) 4 MG Q4H PRN PRN IV Physical ExamGeneral appearance: alert, awakeHead/Eyes: atraumatic, normocephalic, PERRLAENT: moist mucosal membranes, normal dentitionNeck: full range of motion, non-tender, no JVDCardiovascular: normal heart sounds, regular rate rhythmRespiratory: aerating well, symmetric expansion, no distressAbdomen: non-tender, normal bowel sounds, jtube present with minimal collection (liver abscess drains in place)Genitourinary: no bladder distention, no flank painExtremities: no clubbing, no cyanosisMusculoskeletal: no muscle spasmNeuro/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: abnormal speech, disoriented, alert ResultsFindings/Data:Laboratory Tests 09/13 09/12 09/12 0744 2021 1633 Chemistry POC Glucose (70 - 110 MG/DL) 157 H 160 H 217 H Treatment Prophylaxis Treatment ProphylaxisOxygen: room air Diagnosis, Assessment PlanProblem List/A P: 1. Acute cholangitis 2. Elevated LFTs 3. Liver abscess 4. Failure to thrive Free Text DxA P NotesFree text DxA P notes:68-year-old male admitted with abdominal pain, noted with NSTEMI, s/p stent placement to diagonal artery on 07/02/23. Still need staged PCI to RCA. Patient was noted with a liver abscess, seen by general surgery and GI, drain was placedby IR, has been tolerating antibiotics well. Patient was noted with some anemia, EGD was unremarkable but for gastric ulcers with no active bleeding.* Appreciated input from general surgery, GI, cardiology, and ID* Continue on PPI* Monitor output from liver drain* Encourage oral intake and therapy* Patient might be going home with home health today* See my DC summary from 08/22 for details at 1132 RPT #:[id number] OF REPORTPRProgress orol9122-51-72X04:31:00G.[id number] for patient kfxrJXKOSVMWLUTNYA7504-29-60B13:32:45 [facility] 2023-09-13 21:01:00 [id number]/mwoj/bCc/jR8MyTn9x/Fi xR1d6fyVMFianAzl5am +nOndzfeFP8Ksqncn2548-62-51S99:01:00 [facility] ([facility])Palliative Care Progress NoteREPORT#:[id number] REPORT STATUS: SignedREPORT INITIALIZATION DATE:09/13/23 TIME: 2100 PATIENT: MISSY CAANLES UNIT #: [id number]#: [id number] [address] [birth year] AGE: 68 SEX: M ATTEND: Raphael Ly MDADM AUTHOR: Glenny Mclaughlin FNPREPT SERVICE DT/TIME: 09/13/232100* ALL edits or amendments must be made on the electronic/computer document * Objective GeneralVS:Last Documented: Result Date Time Pulse Ox 100 09/13 1907 B/P 125/81 09/13 1907 B/P Mean 95.6 09/13 1907 O2 Delivery Room air 09/13 1907 Temp 37.3 09/13 1907 Pulse 100 09/12 1908 Resp 16 09/13 1907 O2 Flow Rate 2 08/27 1022 FiO2 40 08/07 0752 PATIENT WEIGHT: Weight (lb): 177Weight (oz): 14.61Weight (kg): 80.286 Diagnosis, Assessment PlanHospital course to date:Patient seen and examined. Spoke with Ms. Canales regarding goals of care including plan to possibly transfer to skill nursing facility versus palliative care versus hospice. She stated, "she needs additional time and does not want to have discussion right now" I will continue to support the patient and family during this difficult time. Thank you for allowing me to assist in the care of Mr. Missy Canales. Time spent - 1730 - 1800 - 30 minutes. 08-22-2023 Patient seen and examined. Spoke with Ms. Canales regarding goals of care including plan to possibly transfer to skill nursing facility versus palliative care versus hospice. She stated, "I will check out the senior care facilities today and need additional time". I will continue to support the patient and family during this difficult time. Thank you for allowing me to assist in the care of Mr. Missy Canales. Time spent - 1130 - 1200 - 30 minutes. 08-23-2023 Patient seen and examined. Spoke with Ms. Canales at bedside regarding goals of care including plan to possibly transfer to skill nursing facility versus palliative care versus hospice. She stated, "He is going to [facility] then to rehab". Explained the benefits of oupatient palliative care and discussed advance directives including living will and MPOA if he is oriented to make decisions. No changes at this time. I will continue to support the patient and family during this difficult time. Thank you for allowing me to assist in the care of Mr. Missy Canales. Time spent - 1730 - 1800 - 30 minutes. 08-27-2023 Patient seen and examined. Spoke with Ms. Canales regarding goals of care - she intends to have her spouse go to SNF. I will continue to support the patient and family during this difficult time. Thank you for allowing me to assist in the care of Mr. Missy Canales. Time spent - 1330 - 1400 - 30 minutes. 08-28-2023 Patient seen and examined. Spoke with Ms. Canales regarding goals of care - no changes in GOC plan to discharge to SNF. Case management assisting family with SNF. I will continue to support the patient and family during this difficult time. Thank you for allowing me to assist in the care of Mr. Missy Canales. Time spent - 1430 - 1500 - 30 minutes. 08-29-2023 Patient seen and examined. Spoke with Ms. Canales regarding goals of care - no changes in GOC plan to discharge to SNF. I will continue to support the patient and family during this difficult time. Thank you for allowing me to assist in the care of Mr. Missy Canales. Time spent - 30 minutes 09-04-2023 Patient seen and examined. no changes in GOC plan to discharge to SNF accordingto patient's spouse. I will continue to support the patient and family during this difficult time. Thank you for allowing me to assist in the care of Mr. Parikh. Time spent - 30 minutes 09-05-2023 Patient seen and examined. Patient's spouse at bedside reports plan for patientto go to SNF . I will continue to support the patient and family during this difficult time. Thank you for allowing me to assist in the care of Mr. Missy Canales. Time spent 0930 - 1000 - 30 minutes 09-06-2023 Patient seen and examined. Patient's spouse at bedside . No changes in care and no questions at this time. Discussed outpatient palliative care to prevent future hospitalization. No changes at this time. I will continue to support the patient and family during this difficult time. Thank you for allowing me toassist in the care of Mr. Missy Canales. Time spent- 0900 - 930 - 30 minutes 09-07-2023 Patient seen and examined. No changes in care and no questions at this time. Case management assisting with discharge planning for today. I will continue tosupport the patient and family during this difficult time. Thank you for allowing me to assist in the care of Mr. Missy Canales. Time spent- 0900 - 920 - 20 minutes 09-12-2023 Patient seen and examined. Spoke with patient's spouse via phone, patient and son at bedside regarding discharge home with outpatient palliative care benefitsto prevent future hospitalizations. Agreed to outpatient palliative care. Notified Dr. Clyde Lares DO. I will continue to support the patient and family during this difficult time. Thank you for allowing me to assist in the care of Mr. Missy Canales. Time spent- 0900 - 920 - 20 minutes 09-13-2023 Patient seen and examined. Patient currently receiving assistance from case management with discharge planning. No questions nor changes at this time. I will continue to support the patient and family during this difficult time. Thank you for allowing me to assist in the care of Mr. Missy Canales. Time spent- 0920 - 940 - 20 minutes Quality Current MedicationsCurrent medication review:I attest that the foregoing medication list in the medical record is true, accurate, and complete to the best of my knowledge. Advanced Care Plan 65 or OlderDiscussed with: patient, surrogate decis. maker at 0902 RPT #:[id number] OF REPORTPRProgress [id number]:01:00G.[id number] for patient lrtyHKQAJABQQKBWDB2115-23-84L32:05:34 [facility] 2023-09-13 13:54:00 [id number] fDs2P3xrcdnaNCS0idK w5kFqyCXYW9CWS1uy5564-16-31R41:54:00 [facility] ([facility])Endocrinology Progress NoteREPORT#:[id number] REPORT STATUS: SignedREPORT INITIALIZATION DATE:09/13/23 TIME: 1354 PATIENT: MISSY CANALES UNIT #: [id number]#: [id number] ROOM/BED: 6617-1DOB: [birth year] AGE: 68 SEX: M ATTEND: Raphael Ly MDADM AUTHOR: Agus Duckworth APRNNPREPT SERVICE DT/TIME: 09/13/23 1145* ALL edits or amendments must be made on the electronic/computer document * SubjectiveChief complaint:f/u DM IItolerating diet Objective GeneralVS:Last Documented: Result Date Time Pulse Ox 99 09/12 1035 B/P 117/75 09/12 1035 B/P Mean 88.9 09/12 1035 O2 Delivery Room air 09/12 1035 Temp 99.0 09/12 1035 Pulse 80 09/12 1035 Resp 14 09/12 1035 O2 Flow Rate 2 08/27 1022 FiO2 40 08/07 0752 PATIENT WEIGHT: Weight (lb): 177Weight (oz): 14.61Weight (kg): 80.286 Medications:Active Meds + DC'd Last 24 HrsInsulin Human Lispro (HUMALOG) 4 UNIT AC SUBQ Metoprolol Tartrate (LOPRESSOR) 25 MG BID PO Acetaminophen (TYLENOL) 650 MG Q4H PRN PRN RECTAL Magnesium Oxide (MAG-OX 400) 800 MG DAILY PO Potassium Chloride (K-CHAPITO 20 MEQ PACKET) 40 MEQ DAILY PO Collagenase (SANTYL 2GM TOPICAL) 1 APPLIC DAILY TOPICAL Zinc Oxide (ZINC OXIDE 30 GM OINTMENT) 1 APPLIC BID TOPICAL Amiodarone HCl (CORDARONE) 200 MG BID 9A 5P FEED-TUBE Apixaban (ELIQUIS 5MG TABLET) 5 MG BID 9A 5P PO Pantoprazole (PROTONIX) 40 MG BID AC PO Insulin Glargine (Semglee) 20 UNIT DAILY SUBQ Tamsulosin HCl (Flomax 0.4 mg) 0.4 MG PC BK PO Insulin Human Lispro (HUMALOG) 0 AC HS SUBQ Atorvastatin Calcium (LIPITOR) 40 MG BEDTIME PO Lactulose (LACTULOSE) 20 GM Q12HR PO Senna/Docusate Sodium (SENOKOT S) 1 TAB Q12HR PO Allopurinol (ZYLOPRIM) 300 MG DAILY PO Aspirin (ASPIRIN) 81 MG DAILY PO Acetaminophen (TYLENOL) 650 MG Q6H PRN PRN PO Bisacodyl (DULCOLAX) 10 MG DAILY PRN PRN RECTAL Polyethylene Glycol (MIRALAX) 17 GM Q12H PO Dextrose/Water (DEXTROSE 10% IN WATER) 125 ML ASDIR PRN IV (CKD) Dextrose/Water (DEXTROSE 10% IN WATER) 250 ML ASDIR PRN IV (CKD) Glucagon (GLUCAGON) 1 MG ASDIR PRN IM Sodium Chloride (SODIUM CHLORIDE 0.9%) 250 ML BOLUS PRN IV Latanoprost (XALATAN 2.5 ML OPHTH SOLN) 1 DROP BEDTIME EACH EYE Timolol Maleate (TIMOPTIC 0.5% 5 ML OPHTH SOLN) 1 DROP BID EACH EYE Brimonidine Tartrate (Alphagan-P 0.2% 5 ML OPHTH SOLN) 1 DROP Q8HR EACH EYE Hydralazine HCl (APRESOLINE) 10 MG Q6H PRN PRN IV Ondansetron HCl (ZOFRAN) 4 MG Q4H PRN PRN IV Dietitian nutrition assessmentThe data set between the solid lines has been imported from the dietitian's assessment. BMI Calculated: 27.7Nutrition related diagnosis: OverweightNutrition diagnosis details: BMI 25-29.9Nutrition problem: Increased nutrient needsNutrition etiology: Decreased mobilityNutrition signs and symptoms: ENTERAL NUTRITION TO MEET , ENERGY NEEDS , (DIET ADVANCED TO PUREED AND, TOLERATED.), Pressure injuryNutrition prescription: 1. RECOMMEND PUREED CCD5 DIET. 2. PROVIDE GLUCERNA TID WITH MEALS/SAMEER BID 3. MONITOR PO, WT, LABS, BM.Dietitian name: Rohan Sarah, DIETAssessment completed: 09/12/23 Physical ExamGeneral appearance: alert, awakeHEENT: atraumatic, clear cornea, normocephalicNeck: suppleCardiovascular: regular rate rhythmRespiratory: on oxygenAbdomen: softGenitourinary: not indicatedExtremities: warmNeuro/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: alertSkin: warmFindings/data:Laboratory Tests: 09/12 09/12 09/11 09/11 1035 0752 2011 1629 Chemistry POC Glucose (70 - 110 MG/DL) 200 H 90 73 119 H Laboratory Tests: 09/12 09/12 09/11 09/11 1035 0752 2011 1629 Chemistry POC Glucose (70 - 110 MG/DL) 200 H 90 73 119 H Diagnosis, Assessment PlanFree Text A P:1.DM GGUsnA8y 8.2adjust Lantus adjust Humalog monitor glucose diabetic diet DC Plan: Lantus, Humalog, follow at next available appointment. 2.Abnormal thyroid functions 08/06 TSH 0.07 FT4 1 recheck in a couple of days 3.Suspected ischemic strokeMRI brain without contrastEchocardiogramTelemetryneurology following 4.Coronary artery diseasePCI on July 03, 2023Echocardiogram preserved LVEFdual antiplateletscardiology following 5. Elevated LFTsGI following 6.MRCP with complex cystic fluid collectionpost drainage surgery following at 1422 at 1608 RPT #:[id number] OF REPORTPRProgress [id number]:54:00G.[id number] for patient ycveBLGYUPIQQKFXRH6972-22-27J27:25:28 [facility] 2023-09-13 12:32:00 [id number] tqF/4s65HoxggyragxA +wDqsqQ0HTypDPwi80680-76-48V90:32:00 [facility] ([facility])Wound Care Progress NoteREPORT#:[id number] REPORT STATUS: SignedREPORT INITIALIZATION DATE:09/13/23 TIME: 1232 PATIENT: MISSY CANALES UNIT #: [id number]#: [id number] [address] [birth year] AGE: 68 SEX: M ATTEND: Raphael Ly MDADM AUTHOR: Lilly Riggins APRNNPREPT SERVICE DT/TIME: 09/13/23 1232* ALL edits or amendments must be made on the electronic/computer document * Lilly Riggins 09/13/23 1232:SubjectiveChief complaint:both heels and sacralHPI:68-year-old male being seen for follow-up of all his wounds. is at bedside.Nursing reports:No: complaints. Objective GeneralVS:Last Documented: Result Date Time Pulse Ox 99 09/12 1035 B/P 117/75 09/12 1035 B/P Mean 88.9 09/12 1035 O2 Delivery Room air 09/12 1035 Temp 37.2 09/12 1035 Pulse 80 09/12 1035 Resp 14 09/12 1035 O2 Flow Rate 2 08/27 1022 FiO2 40 08/07 0752 PATIENT WEIGHT: Weight (lb): 177Weight (oz): 14.61Weight (kg): 80.286 Medications:Active Meds + DC'd Last 24 HrsInsulin Human Lispro (HUMALOG) 4 UNIT AC SUBQ Metoprolol Tartrate (LOPRESSOR) 25 MG BID PO Acetaminophen (TYLENOL) 650 MG Q4H PRN PRN RECTAL Magnesium Oxide (MAG-OX 400) 800 MG DAILY PO Potassium Chloride (K-CHAPITO 20 MEQ PACKET) 40 MEQ DAILY PO Collagenase (SANTYL 2GM TOPICAL) 1 APPLIC DAILY TOPICAL Zinc Oxide (ZINC OXIDE 30 GM OINTMENT) 1 APPLIC BID TOPICAL Amiodarone HCl (CORDARONE) 200 MG BID 9A 5P FEED-TUBE Apixaban (ELIQUIS 5MG TABLET) 5 MG BID 9A 5P PO Pantoprazole (PROTONIX) 40 MG BID AC PO Insulin Glargine (Semglee) 20 UNIT DAILY SUBQ Tamsulosin HCl (Flomax 0.4 mg) 0.4 MG PC BK PO Insulin Human Lispro (HUMALOG) 0 AC HS SUBQ Atorvastatin Calcium (LIPITOR) 40 MG BEDTIME PO Lactulose (LACTULOSE) 20 GM Q12HR PO Senna/Docusate Sodium (SENOKOT S) 1 TAB Q12HR PO Allopurinol (ZYLOPRIM) 300 MG DAILY PO Aspirin (ASPIRIN) 81 MG DAILY PO Acetaminophen (TYLENOL) 650 MG Q6H PRN PRN PO Bisacodyl (DULCOLAX) 10 MG DAILY PRN PRN RECTAL Polyethylene Glycol (MIRALAX) 17 GM Q12H PO Dextrose/Water (DEXTROSE 10% IN WATER) 125 ML ASDIR PRN IV (CKD) Dextrose/Water (DEXTROSE 10% IN WATER) 250 ML ASDIR PRN IV (CKD) Glucagon (GLUCAGON) 1 MG ASDIR PRN IM Sodium Chloride (SODIUM CHLORIDE 0.9%) 250 ML BOLUS PRN IV Latanoprost (XALATAN 2.5 ML OPHTH SOLN) 1 DROP BEDTIME EACH EYE Timolol Maleate (TIMOPTIC 0.5% 5 ML OPHTH SOLN) 1 DROP BID EACH EYE Brimonidine Tartrate (Alphagan-P 0.2% 5 ML OPHTH SOLN) 1 DROP Q8HR EACH EYE Hydralazine HCl (APRESOLINE) 10 MG Q6H PRN PRN IV Ondansetron HCl (ZOFRAN) 4 MG Q4H PRN PRN IV Dietitian Nutrition assessmentThe data set between the solid lines has been imported from the dietitian's assessment. BMI Calculated: 27.7Nutrition related diagnosis: OverweightNutrition diagnosis details: BMI 25-29.9Nutrition problem: Increased nutrient needsNutrition etiology: Decreased mobilityNutrition signs and symptoms: ENTERAL NUTRITION TO MEET , ENERGY NEEDS , (DIET ADVANCED TO PUREED AND, TOLERATED.), Pressure injuryNutrition prescription: 1. RECOMMEND PUREED CCD5 DIET. 2. PROVIDE GLUCERNA TID WITH MEALS/SAMEER BID 3. MONITOR PO, WT, LABS, BM.Dietitian name: Rohan Sarah, DIETAssessment completed: 09/12/23 Physical ExamGeneral appearance: awakeRespiratory: no distressSkin: open wounds. Wound AssessmentWound Assessment 1: Type/cause: pressure Wound location: heel (right and left) Site condition: necrotic tissue Stage of pressure ulcer: unstageableWound Assessment 2: Type/cause: pressure Wound location: sacral region Site condition: dehiscence, drainage Stage of pressure ulcer: stage III Wound margins: open ResultsFindings/Data:Laboratory Tests: 09/12 09/12 09/11 09/11 1035 0752 2011 1629 Chemistry POC Glucose (70 - 110 MG/DL) 200 H 90 73 119 H Diagnosis, Assessment PlanProblem List/A P: 1. Pressure ulcer of sacral region, stage 3 2. Pressure ulcer, heel, right, unstageable 3. Pressure ulcer, heel, left, unstageable 4. Anemia 5. Failure to thrive Free Text A P:09/02/2023: Will continue with the Santyl to the heel areas. Will continue with the gentamicin to the sacral area. Anemia, which will impede wound healing, defer to the primary care team. Albumin is on the lower end which will also impede wound healing. Recommend dietary input. 09/03/2023: Patient currently in bed, no issues reported overnight; patient's blood sugars between 150-240s. Patient is currently taking Sameer, he is anemic and his albumin in low. Will continue Santyl in the bilateral heels and gentamicin in the sacral areas. 09/04/2023: Patient currently in bed, no issues reported overnight; patient's blood sugars between are stable today. Patient is currently taking Sameer. Will continue Santyl in the bilateral heels and gentamicin in the sacral areas. 09/05/2023: Patient resting in bed, at bedside and all concerns addressed. patient's blood sugars between normal levels . Patient is currently taking Sameer. Will continue Santyl in the bilateral heels and gentamicin in the sacral areas. Keep patient offload, apply Prevalon Boots and nutritional support. 09/06/2023: Patient resting in bed, and primary nurse at bedside. Patient'sblood sugars between normal levels . Patient is currently taking Sameer. Will continue Santyl in the bilateral heels and gentamicin in the sacral areas. Keep patient offload, apply Prevalon Boots and nutritional support. 09/07/2023: Patient resting in bed, no issues overnight. Patient's blood sugars between normal levels . Patient is currently taking Sameer. Will continue Santyl in the bilateral heels and gentamicin in the sacral areas. Keep patient offload,apply Prevalon Boots and nutritional support. 09/10/2023: Patient resting in bed, no issues overnight per . Patient's blood sugars between normal levels Will continue Santyl in the bilatera. isconcer regarding discharge, she feels that he needs LTAC to get physical therapyto get better. We will continue applying santyl to the heels and gentamicin in the sacral areas. Keep patient offload, apply Prevalon Boots and nutritional support. 09/11/2023: Patient resting in bed, no issues overnight per . stated that she is still waiting for LTAC or home health at this time. We will continueapplying santyl to the heels and gentamicin in the sacral areas. Keep patient offload, apply Prevalon Boots and nutritional support. 09/12/2023: Patient is resting in bed comfortable this morning, primary nurse is at bedside, she states that patient is doing well the bed has been applying the Santyl as prescribed, and also the gentamicin in the affected areas. Per nurse,awaiting for LTAC for home health placement. We will continue with the same treatment. 09/13/2023: Patient is resting in bed comfortable this morning, is at bedside, she states that patient is doing well and the nurses had been applying Santyl in the bilateral heels, and also the gentamicin in the buttocks area. Keep offloaded, specialty matress and nutritional support. Tano Sanchez 09/25/23 0749:AttestationsAttestation needed: supervising physician Physician AttestationAgree w/findings plan:Agree with the findings and plan as documented by ANGEL Lindsey* my personal evaluation isReviewed and agree with the history, physical findings, diagnosis and managementplan with ANGEL Lindsey at 1237 at 0757 RPT #:[id number] OF REPORTPNProcedure [id number]:32:00G.[id number] for patient txzgGFEJEKQCQPDGZM1291-32-81T37:38:17 [facility] 2023-09-13 11:55:00 [id number]/[id number] iDumyWAIT5yjpT4pRcu HMwh9QbM2t1wsJZIw5180-63-29T99:55:00 [facility]Hospital[facility] Progress NoteREPORT#:[id number] REPORT STATUS: SignedREPORT INITIALIZATION DATE:09/13/23 TIME: 115 PATIENT: MISSY CANALES UNIT #: [id number]#: [id number] [address] [birth year] AGE: 68 SEX: M ATTEND: Raphael Ly [facility] AUTHOR: Clyde LaresEPT SERVICE DT/TIME: 09/13/23 1155* ALL edits or amendments must be made on the electronic/computer document * SubjectiveChief complaint:Patient is resting comfortably in bed this morning in no acute distress Objective GeneralVS/I O:Vital Signs: Date Time Temp Pulse Resp B/P B/P Pulse O2 O2 Flow FiO2 Mean Ox Delivery Rate 09/12 1035 99.0 80 14 117/75 88.9 99 Room air 09/12 0745 98.8 96 16 112/76 88.0 96 Room air 09/12 0524 98.2 93 14 114/77 89.3 100 Room air 09/12 0030 98.2 82 18 111/74 86.3 100 Room air 09/11 2009 98.2 92 14 119/77 90.9 99 Room air 09/11 1609 98.1 77 15 114/66 82 99 Room air 24 hour I O ending at 0700: 09/12 0700 09/11 1900 Intake Total Output Total 1000 50 Balance -1000 -50 Output, 50 Drainage Output, Urine 1000 PATIENT WEIGHT: Weight (lb): 177Weight (oz): 14.61Weight (kg): 80.286 Medications:Active Meds + DC'd Last 24 HrsInsulin Human Lispro (HUMALOG) 4 UNIT AC SUBQ Insulin Human Lispro (HUMALOG) 5 UNIT AC SUBQ (DC) Metoprolol Tartrate (LOPRESSOR) 25 MG BID PO Acetaminophen (TYLENOL) 650 MG Q4H PRN PRN RECTAL Magnesium Oxide (MAG-OX 400) 800 MG DAILY PO Potassium Chloride (K-CHAPITO 20 MEQ PACKET) 40 MEQ DAILY PO Collagenase (SANTYL 2GM TOPICAL) 1 APPLIC DAILY TOPICAL Zinc Oxide (ZINC OXIDE 30 GM OINTMENT) 1 APPLIC BID TOPICAL Amiodarone HCl (CORDARONE) 200 MG BID 9A 5P FEED-TUBE Apixaban (ELIQUIS 5MG TABLET) 5 MG BID 9A 5P PO Pantoprazole (PROTONIX) 40 MG BID AC PO Insulin Glargine (Semglee) 20 UNIT DAILY SUBQ Tamsulosin HCl (Flomax 0.4 mg) 0.4 MG PC BK PO Insulin Human Lispro (HUMALOG) 0 AC HS SUBQ Atorvastatin Calcium (LIPITOR) 40 MG BEDTIME PO Lactulose (LACTULOSE) 20 GM Q12HR PO Senna/Docusate Sodium (SENOKOT S) 1 TAB Q12HR PO Allopurinol (ZYLOPRIM) 300 MG DAILY PO Aspirin (ASPIRIN) 81 MG DAILY PO Acetaminophen (TYLENOL) 650 MG Q6H PRN PRN PO Bisacodyl (DULCOLAX) 10 MG DAILY PRN PRN RECTAL Polyethylene Glycol (MIRALAX) 17 GM Q12H PO Dextrose/Water (DEXTROSE 10% IN WATER) 125 ML ASDIR PRN IV (CKD) Dextrose/Water (DEXTROSE 10% IN WATER) 250 ML ASDIR PRN IV (CKD) Glucagon (GLUCAGON) 1 MG ASDIR PRN IM Sodium Chloride (SODIUM CHLORIDE 0.9%) 250 ML BOLUS PRN IV Latanoprost (XALATAN 2.5 ML OPHTH SOLN) 1 DROP BEDTIME EACH EYE Timolol Maleate (TIMOPTIC 0.5% 5 ML OPHTH SOLN) 1 DROP BID EACH EYE Brimonidine Tartrate (Alphagan-P 0.2% 5 ML OPHTH SOLN) 1 DROP Q8HR EACH EYE Hydralazine HCl (APRESOLINE) 10 MG Q6H PRN PRN IV Ondansetron HCl (ZOFRAN) 4 MG Q4H PRN PRN IV Physical ExamGeneral appearance: alert, awakeHead/Eyes: atraumatic, normocephalic, PERRLAENT: moist mucosal membranes, normal dentitionNeck: full range of motion, non-tender, no JVDCardiovascular: normal heart sounds, regular rate rhythmRespiratory: aerating well, symmetric expansion, no distressAbdomen: non-tender, normal bowel sounds, jtube present with minimal collection (liver abscess drains in place)Genitourinary: no bladder distention, no flank painExtremities: no clubbing, no cyanosisMusculoskeletal: no muscle spasmNeuro/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: abnormal speech, disoriented, alert ResultsFindings/Data:Laboratory Tests 09/12 09/12 09/11 09/11 1035 0752 2011 1629 Chemistry POC Glucose (70 - 110 MG/DL) 200 H 90 73 119 H Diagnosis, Assessment PlanProblem List/A P: 1. Acute cholangitis 2. Elevated LFTs 3. Liver abscess 4. Failure to thrive Free Text DxA P NotesFree text DxA P notes:68-year-old male admitted with abdominal pain, noted with NSTEMI, s/p stent placement to diagonal artery on 07/02/23. Still need staged PCI to RCA. Patient was noted with a liver abscess, seen by general surgery and GI, drain was placedby IR, has been tolerating antibiotics well. Patient was noted with some anemia, EGD was unremarkable but for gastric ulcers with no active bleeding.* Appreciated input from general surgery, GI, cardiology, and ID* Continue on PPI* Monitor output from liver drain* Encourage oral intake and therapy* Is currently being reevaluated for possible SNF placement* See my DC summary from 08/22 for details at 1156 RPT #:[id number] OF REPORTPRProgress vejb3465-56-60K74:55:00G.[id number] for patient pcxuOLJODLRLYYWFHD7317-04-34E37:56:43 [facility] 2023-09-13 07:12:00 [id number]IIqG oQQrgej9ikh7encUxEl vSlB2c8SuVTexnbzO3227-72-72V07:12:00 [facility] ([facility])Cardiology Progress NoteREPORT#:[id number] REPORT STATUS: SignedREPORT INITIALIZATION DATE:09/13/23 TIME: 711 PATIENT: MISSY CANALES UNIT #: [id number]#: [id number] [address]OB: [birth year] AGE: 68 SEX: M ATTEND: Raphael Ly MDADM AUTHOR: Esther Buckner AGACNPREPT SERVICE DT/TIME: 09/13/23711* ALL edits or amendments must be made on the electronic/computer document * SubjectivePatient reports:No: complaints. Objective GeneralVS/I O:24 hour I O ending at 0700: 09/12 0700 09/11 1900 Intake Total Output Total 1000 50 Balance -1000 -50 Output, 50 Drainage Output, Urine 1000 Vital Signs: Date Time Temp Pulse Resp B/P B/P Pulse O2 O2 Flow FiO2 Mean Ox Delivery Rate 09/13 523 36.8 93 14 114/77 89.3 100 Room air 09/12 0030 36.8 82 18 111/74 86.3 100 Room air 09/11 2009 36.8 92 14 119/77 90.9 99 Room air 09/11 1609 36.7 77 15 114/66 82 99 Room air 09/11 1154 76 16 111/67 81.4 100 Room air PATIENT WEIGHT: Weight (lb): 177Weight (oz): 14.61Weight (kg): 80.286 Medications:Active Meds + DC'd Last 24 HrsInsulin Human Lispro (HUMALOG) 4 UNIT AC SUBQ Insulin Human Lispro (HUMALOG) 5 UNIT AC SUBQ (DC) Metoprolol Tartrate (LOPRESSOR) 25 MG BID PO Acetaminophen (TYLENOL) 650 MG Q4H PRN PRN RECTAL Magnesium Oxide (MAG-OX 400) 800 MG DAILY PO Potassium Chloride (K-CHAPITO 20 MEQ PACKET) 40 MEQ DAILY PO Collagenase (SANTYL 2GM TOPICAL) 1 APPLIC DAILY TOPICAL Zinc Oxide (ZINC OXIDE 30 GM OINTMENT) 1 APPLIC BID TOPICAL Amiodarone HCl (CORDARONE) 200 MG BID 9A 5P FEED-TUBE Apixaban (ELIQUIS 5MG TABLET) 5 MG BID 9A 5P PO Pantoprazole (PROTONIX) 40 MG BID AC PO Insulin Glargine (Semglee) 20 UNIT DAILY SUBQ Tamsulosin HCl (Flomax 0.4 mg) 0.4 MG PC BK PO Insulin Human Lispro (HUMALOG) 0 AC HS SUBQ Atorvastatin Calcium (LIPITOR) 40 MG BEDTIME PO Lactulose (LACTULOSE) 20 GM Q12HR PO Senna/Docusate Sodium (SENOKOT S) 1 TAB Q12HR PO Allopurinol (ZYLOPRIM) 300 MG DAILY PO Aspirin (ASPIRIN) 81 MG DAILY PO Acetaminophen (TYLENOL) 650 MG Q6H PRN PRN PO Bisacodyl (DULCOLAX) 10 MG DAILY PRN PRN RECTAL Polyethylene Glycol (MIRALAX) 17 GM Q12H PO Dextrose/Water (DEXTROSE 10% IN WATER) 125 ML ASDIR PRN IV (CKD) Dextrose/Water (DEXTROSE 10% IN WATER) 250 ML ASDIR PRN IV (CKD) Glucagon (GLUCAGON) 1 MG ASDIR PRN IM Sodium Chloride (SODIUM CHLORIDE 0.9%) 250 ML BOLUS PRN IV Latanoprost (XALATAN 2.5 ML OPHTH SOLN) 1 DROP BEDTIME EACH EYE Timolol Maleate (TIMOPTIC 0.5% 5 ML OPHTH SOLN) 1 DROP BID EACH EYE Brimonidine Tartrate (Alphagan-P 0.2% 5 ML OPHTH SOLN) 1 DROP Q8HR EACH EYE Hydralazine HCl (APRESOLINE) 10 MG Q6H PRN PRN IV Ondansetron HCl (ZOFRAN) 4 MG Q4H PRN PRN IV Physical ExamGeneral appearance: alert, awakeENT: normal noseNeck: non-tender, no JVDCardiovascular: CV assessment: regular rate and rhythmRespiratory: decreased breath sounds, no distressAbdomen: soft, non-tenderGenitourinary: no flank pain, no urinary catheterUpper extremity: UE assessment: normal capillary refill, normal temperatureLower extremity: LE assessment: no calf tenderness, no edemaMusculoskeletal: normal inspectionNeuro/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: right hemiparesis, alertSkin: dryPsychiatry: normal affect, normal mood ResultsFindings/Data:Laboratory Tests 09/11 1629 1154 0737 Chemistry POC Glucose (70 - 110 MG/DL) 73 119 H 81 121 H Results: no new labs, vital signs reviewed Diagnosis, Assessment PlanPlan discussed with: patient, spouse/partner, collaborating MD, nurse Free Text DxA P NotesFree Text DxA P Notes:1. Coronary artery disease s/p recent PCI/TERESA to diagonal artery* Troponin trend is flat* Hx of CABG (2000)* s/p stent placement to diagonal artery on 07/02/23. Still need staged PCI to RCA. * Echocardiogram preserved LVEF.* PPI: lansoprazole 30 mg BID* Plavix dc'd (08/30/23), switched to Eliquis (afib) and ASA 2. Elevated LFTs/acute cholecystitis/liver abscess* s/p cholecystostomy tube placement. * ID on board managing antibiotic* GI on board* s/p EGD: nonbleeding ulcer 3. AMS: MRI brain showed small subacute ischemia in the L coronary radiata * MRI of the brain unchanged 4. Tachycardia with PVCs and PACs/Paroxysmal atrial fibrillation* TES6XZ6-TPCt score 6, recommend AC * HASBLED 4* continue Eliquis 5 mg BID plus ASA 81 mg daily. * continue amiodarone 200 mg BID* continue metoprolol tartrate 25 mg BID 5. Anemia* hgb 6.3 up to 8.9->8.6->6.9->7->8.7->8.6->8.3->8.8->8.6* s/p 2 units PRBCs 08/20/23, 1 unit PRBC 08/26/23* On PPI* s/p EGD showed nonbleeding ulcer 6. Hypokalemia/hypomagnesemia* continue KCL 40 mg daily* continue Mag oxide 800 mg daily* encourage oral intake waiting for placementStable CV status.Outpatient follow-up with Dr. Hennessy. Medical decision making by Dr. Daniel. at 1259 RPT #:[id number] OF REPORTPRProgress bghy4449-95-63T22:12:00G.[id number] for patient kdzzRMBXIEXYLNPPWX8721-73-46U25:59:58 [facility] 2023-09-12 16:40:00 [id number] LeEtiIlZx4UykFJggl/ c0KkA0vPl55nFo9L+8707-89-90K51:40:00 [facility] ([facility])Wound Care Progress NoteREPORT#:[id number] REPORT STATUS: SignedREPORT INITIALIZATION DATE:09/12/23 TIME: 1639 PATIENT: MISSY CANALES UNIT #: [id number]#: [id number] [address] [birth year] AGE: 68 SEX: M ATTEND: Raphael Ly [facility] AUTHOR: Lilly Riggins APRNNPREPT SERVICE DT/TIME: 09/12/23 1640* ALL edits or amendments must be made on the electronic/computer document * Lilly Riggins 09/12/23 1640:SubjectiveChief complaint:both heels and sacralHPI:68-year-old male being seen for follow-up of all his wounds. is at bedside. Objective GeneralVS:Last Documented: Result Date Time Pulse Ox 99 09/11 1609 B/P 114/66 09/11 1609 B/P Mean 82 09/11 1609 O2 Delivery Room air 09/11 1609 Temp 36.7 09/11 1609 Pulse 77 09/11 1609 Resp 15 09/11 1609 O2 Flow Rate 2 08/27 1022 FiO2 40 08/07 0752 PATIENT WEIGHT: Weight (lb): 177Weight (oz): 14.61Weight (kg): 80.286 Medications:Active Meds + DC'd Last 24 HrsInsulin Human Lispro (HUMALOG) 4 UNIT AC SUBQ Insulin Human Lispro (HUMALOG) 5 UNIT AC SUBQ (DC) Metoprolol Tartrate (LOPRESSOR) 25 MG BID PO Acetaminophen (TYLENOL) 650 MG Q4H PRN PRN RECTAL Magnesium Oxide (MAG-OX 400) 800 MG DAILY PO Potassium Chloride (K-CHAPITO 20 MEQ PACKET) 40 MEQ DAILY PO Collagenase (SANTYL 2GM TOPICAL) 1 APPLIC DAILY TOPICAL Zinc Oxide (ZINC OXIDE 30 GM OINTMENT) 1 APPLIC BID TOPICAL Amiodarone HCl (CORDARONE) 200 MG BID 9A 5P FEED-TUBE Apixaban (ELIQUIS 5MG TABLET) 5 MG BID 9A 5P PO Pantoprazole (PROTONIX) 40 MG BID AC PO Insulin Glargine (Semglee) 20 UNIT DAILY SUBQ Tamsulosin HCl (Flomax 0.4 mg) 0.4 MG PC BK PO Insulin Human Lispro (HUMALOG) 0 AC HS SUBQ Atorvastatin Calcium (LIPITOR) 40 MG BEDTIME PO Lactulose (LACTULOSE) 20 GM Q12HR PO Senna/Docusate Sodium (SENOKOT S) 1 TAB Q12HR PO Allopurinol (ZYLOPRIM) 300 MG DAILY PO Aspirin (ASPIRIN) 81 MG DAILY PO Acetaminophen (TYLENOL) 650 MG Q6H PRN PRN PO Bisacodyl (DULCOLAX) 10 MG DAILY PRN PRN RECTAL Polyethylene Glycol (MIRALAX) 17 GM Q12H PO Dextrose/Water (DEXTROSE 10% IN WATER) 125 ML ASDIR PRN IV (CKD) Dextrose/Water (DEXTROSE 10% IN WATER) 250 ML ASDIR PRN IV (CKD) Glucagon (GLUCAGON) 1 MG ASDIR PRN IM Sodium Chloride (SODIUM CHLORIDE 0.9%) 250 ML BOLUS PRN IV Latanoprost (XALATAN 2.5 ML OPHTH SOLN) 1 DROP BEDTIME EACH EYE Timolol Maleate (TIMOPTIC 0.5% 5 ML OPHTH SOLN) 1 DROP BID EACH EYE Brimonidine Tartrate (Alphagan-P 0.2% 5 ML OPHTH SOLN) 1 DROP Q8HR EACH EYE Hydralazine HCl (APRESOLINE) 10 MG Q6H PRN PRN IV Ondansetron HCl (ZOFRAN) 4 MG Q4H PRN PRN IV Dietitian Nutrition assessmentThe data set between the solid lines has been imported from the dietitian's assessment. BMI Calculated: 27.7Nutrition related diagnosis: OverweightNutrition diagnosis details: BMI 25-29.9Nutrition problem: Increased nutrient needsNutrition etiology: Decreased mobilityNutrition signs and symptoms: ENTERAL NUTRITION TO MEET , ENERGY NEEDS , (DIET ADVANCED TO PUREED AND, TOLERATED.), Pressure injuryNutrition prescription: 1. RECOMMEND PUREED CCD5 DIET. 2. PROVIDE GLUCERNA TID WITH MEALS/SAMEER BID 3. MONITOR PO, WT, LABS, BM.Dietitian name: Rohan Sarah, DIETAssessment completed: 09/12/23 Physical ExamGeneral appearance: awakeRespiratory: no distressSkin: open wounds. Wound AssessmentWound Assessment 1: Type/cause: pressure Wound location: heel (right and left) Site condition: necrotic tissue Stage of pressure ulcer: unstageableWound Assessment 2: Type/cause: pressure Wound location: sacral region Site condition: dehiscence, drainage Stage of pressure ulcer: stage III Wound margins: open ResultsFindings/Data:Laboratory Tests: 09/11 09/11 09/10 09/10 0166 1356 2011 1647 Chemistry POC Glucose (70 - 110 MG/DL) 81 121 H 163 H 151 H Diagnosis, Assessment PlanProblem List/A P: 1. Pressure ulcer of sacral region, stage 3 2. Pressure ulcer, heel, right, unstageable 3. Pressure ulcer, heel, left, unstageable 4. Anemia 5. Failure to thrive Free Text A P:09/02/2023: Will continue with the Santyl to the heel areas. Will continue with the gentamicin to the sacral area. Anemia, which will impede wound healing, defer to the primary care team. Albumin is on the lower end which will also impede wound healing. Recommend dietary input. 09/03/2023: Patient currently in bed, no issues reported overnight; patient's blood sugars between 150-240s. Patient is currently taking Sameer, he is anemic and his albumin in low. Will continue Santyl in the bilateral heels and gentamicin in the sacral areas. 09/04/2023: Patient currently in bed, no issues reported overnight; patient's blood sugars between are stable today. Patient is currently taking Sameer. Will continue Santyl in the bilateral heels and gentamicin in the sacral areas. 09/05/2023: Patient resting in bed, at bedside and all concerns addressed. patient's blood sugars between normal levels . Patient is currently taking Sameer. Will continue Santyl in the bilateral heels and gentamicin in the sacral areas. Keep patient offload, apply Prevalon Boots and nutritional support. 09/06/2023: Patient resting in bed, and primary nurse at bedside. Patient'sblood sugars between normal levels . Patient is currently taking Sameer. Will continue Santyl in the bilateral heels and gentamicin in the sacral areas. Keep patient offload, apply Prevalon Boots and nutritional support. 09/07/2023: Patient resting in bed, no issues overnight. Patient's blood sugars between normal levels . Patient is currently taking Sameer. Will continue Santyl in the bilateral heels and gentamicin in the sacral areas. Keep patient offload,apply Prevalon Boots and nutritional support. 09/10/2023: Patient resting in bed, no issues overnight per . Patient's blood sugars between normal levels Will continue Santyl in the bilatera. isconcer regarding discharge, she feels that he needs LTAC to get physical therapyto get better. We will continue applying santyl to the heels and gentamicin in the sacral areas. Keep patient offload, apply Prevalon Boots and nutritional support. 09/11/2023: Patient resting in bed, no issues overnight per . stated that she is still waiting for LTAC or home health at this time. We will continueapplying santyl to the heels and gentamicin in the sacral areas. Keep patient offload, apply Prevalon Boots and nutritional support. 09/12/2023: Patient is resting in bed comfortable this morning, primary nurse is at bedside, she states that patient is doing well the bed has been applying the Santyl as prescribed, and also the gentamicin in the affected areas. Per nurse,awaiting for LTAC for home health placement. We will continue with the same treatment. Tano Sancehz 09/25/23 0755:AttestationsAttestation needed: supervising physician Physician AttestationAgree w/findings plan:Agree with the findings and plan as documented by ANGEL Lindsey* my personal evaluation isReviewed and agree with the history, physical findings, diagnosis and managementplan with ANGEL Lindsey at 1643 at 0811 RPT #:[id number] OF REPORTPNProcedure [id number]:40:00G.[id number] for patient kffsWYAFIMLLFMVZSJ4930-09-93F43:45:50 [facility] 2023-09-12 15:09:00 [id number] WEJfDvb3z8vaD/dXzf4 FaDsSRK/0hy3dcZd36112-27-78Q95:09:00 [facility])Gastroenterology Progress NoteREPORT#:[id number] REPORT STATUS: SignedREPORT INITIALIZATION DATE:09/12/23 TIME: 150 PATIENT: MISSY CANALES UNIT #: [id number]#: [id number] [address] [birth year] AGE: 68 SEX: M ATTEND: Raphael Ly MDADM AUTHOR: Lisa Cancino MDREPT SERVICE DT/TIME: 09/12/23 1509* ALL edits or amendments must be made on the electronic/computer document * SubjectiveChief complaint:Elevated LFtsHPI:68 year old man s/p cardiac stents 2 weeks ago who was sent to the hospital withelevated LFTs and possible acute cholecystitis. Pt had a stenet recently placed and was started on DAPT. Pt had labs showing elevated LFTs and was sent here forevaluation. Labs showed leukocytosis 15k. Elevated Tbili 3.7. Dbili 2.8. AST 79,ALT 105 and ALP 225. RUQ U/S showed possible cholecystitis and normal CBD of 4 mm in diatmeter. Pt denies pain. No dark urine or peyton-color stool 08/03; patient feels well. MRCP reviewed. No choledocholithiasis. Fluid collection at the liver could be related secondary to gallbladder perforation. LFTs and white count are down. 08/04: Plan for IR for cholecystostomy tube placement. LFts stable. WBC elevated.Was confused this am but improving. NO pain. No fevers. Added flagyl to his Abx regimen 08/05: NO new complaints. IR for abscess drain and cholecystostomy tube 08/06: Transferred overnight to ICU due to AMS. S/P IR with cholecystostomy tube and abscess drain 08/07: severely constipated. NGT in with feeds. drains in. More awake today and oriented. right sided weakness likely acute stroke. MRI brain reviewed- small stroke. KUB reviewed 08/08: Doing better according to . Sheldon removed. Still on feeds 08/09: Feeds at 20 ml/hr. Still no BM 08/10-Had BM last night. Denies n/v/abd pain 08/11-Patient dislodged DH. DH was replaced. +BM today 08/12: has been having BM during the weekend 08/13: No new events 08/14: eating and moving bowels. 08/15: doing well. 08/26: I was called again to evaluate pt. He has melena-like stool and dropped hisH/H. Pt is on DAPT 08/27: S/P EGD showing gastric ulcer in the incisura. flat pigmentation without high rebleeding stigmata. 08/28: H/H stable. Family at bedside. NO melena 08/29: Stbale H/H. NO family at bediside this am 08/30: Stable H/H. 08/31-No GI complaints, family at bedside. HGB 8.3 09/01-HGB 8.8. Last BM today 09/02: Stable H/H. 09/03: H/H stable. Liver drain is no longer draining. cholecystostomy tube draining 09/04:Plan to remove liver drain. H/H stable. No melena 09/05: No complaints. eating getting stronger 09/06: No new labs. gettig better 09/10: stable H/H. 09/11: No new labs Objective Physical ExamHEENT: EOMICardiovascular: normal heart soundsRespiratory: clear to auscultationAbdomen: non-tenderExtremities: no edemaSkin: dry, normal temperature Diagnosis, Assessment PlanProblem List/A P: 1. Elevated LFTs Free Text A P:cholestatic pattern. CBD normal on RuQ U/S MRCP showed no evidence of choledocholithiasis.Large fluid collection within the liver could be secondary to gallbladder perforation.Recommend surgical evaluation again.Continue with antibiotics. Add flagyl s/p cholecystostomy tube and drainage of cystic fluid collection. Awaiting culture EGD showed gastric ulcer with flat pigmentPPI PO BID Will need repeat EGD in 6 weeks to confirm healing and rule out malignancyConsider removing hepatic drainWill sign off at 1509 RPT #:[id number] OF REPORTPRProgress [id number]:09:00G.[id number] for patient kbnrHUOUAPOUWTWWHX1219-19-39W14:10:11 [facility] 2023-09-12 12:23:00 [id number] FubN2oRGKaTQcodoPaZ VxkSaC5Xa9G7qDvlT0350-43-96B41:23:00 [facility])Endocrinology Progress NoteREPORT#:[id number] REPORT STATUS: SignedREPORT INITIALIZATION DATE:09/12/23 TIME: 1223 PATIENT: MISSY CANALES UNIT #: [id number]#: [id number] [address]OB: [birth year] AGE: 68 SEX: M ATTEND: Raphael Ly MDADM AUTHOR: Agus DuckworthPREPT SERVICE DT/TIME: 09/12/23 1130* ALL edits or amendments must be made on the electronic/computer document * SubjectiveChief complaint:f/u DM IItolerating diet Objective GeneralVS:Last Documented: Result Date Time Pulse Ox 100 09/11 1154 B/P 111/67 09/11 1154 B/P Mean 81.4 09/11 1154 O2 Delivery Room air 09/11 1154 Pulse 76 09/11 1154 Resp 16 09/11 1154 Temp 99.3 09/11 0659 O2 Flow Rate 2 08/27 1022 FiO2 40 08/07 0752 PATIENT WEIGHT: Weight (lb): 177Weight (oz): 14.61Weight (kg): 80.286 Medications:Active Meds + DC'd Last 24 HrsInsulin Human Lispro (HUMALOG) 4 UNIT AC SUBQ (UNV) Insulin Human Lispro (HUMALOG) 5 UNIT AC SUBQ (DCr) Metoprolol Tartrate (LOPRESSOR) 25 MG BID PO Acetaminophen (TYLENOL) 650 MG Q4H PRN PRN RECTAL Magnesium Oxide (MAG-OX 400) 800 MG DAILY PO Potassium Chloride (K-CHAPITO 20 MEQ PACKET) 40 MEQ DAILY PO Collagenase (SANTYL 2GM TOPICAL) 1 APPLIC DAILY TOPICAL Zinc Oxide (ZINC OXIDE 30 GM OINTMENT) 1 APPLIC BID TOPICAL Amiodarone HCl (CORDARONE) 200 MG BID 9A 5P FEED-TUBE Apixaban (ELIQUIS 5MG TABLET) 5 MG BID 9A 5P PO Pantoprazole (PROTONIX) 40 MG BID AC PO Insulin Glargine (Semglee) 20 UNIT DAILY SUBQ Tamsulosin HCl (Flomax 0.4 mg) 0.4 MG PC BK PO Insulin Human Lispro (HUMALOG) 0 AC HS SUBQ (r) Atorvastatin Calcium (LIPITOR) 40 MG BEDTIME PO Lactulose (LACTULOSE) 20 GM Q12HR PO Senna/Docusate Sodium (SENOKOT S) 1 TAB Q12HR PO Allopurinol (ZYLOPRIM) 300 MG DAILY PO Aspirin (ASPIRIN) 81 MG DAILY PO Acetaminophen (TYLENOL) 650 MG Q6H PRN PRN PO Bisacodyl (DULCOLAX) 10 MG DAILY PRN PRN RECTAL Polyethylene Glycol (MIRALAX) 17 GM Q12H PO Dextrose/Water (DEXTROSE 10% IN WATER) 125 ML ASDIR PRN IV (CKD) Dextrose/Water (DEXTROSE 10% IN WATER) 250 ML ASDIR PRN IV (CKD) Glucagon (GLUCAGON) 1 MG ASDIR PRN IM Sodium Chloride (SODIUM CHLORIDE 0.9%) 250 ML BOLUS PRN IV Latanoprost (XALATAN 2.5 ML OPHTH SOLN) 1 DROP BEDTIME EACH EYE Timolol Maleate (TIMOPTIC 0.5% 5 ML OPHTH SOLN) 1 DROP BID EACH EYE Brimonidine Tartrate (Alphagan-P 0.2% 5 ML OPHTH SOLN) 1 DROP Q8HR EACH EYE Hydralazine HCl (APRESOLINE) 10 MG Q6H PRN PRN IV Ondansetron HCl (ZOFRAN) 4 MG Q4H PRN PRN IV Dietitian nutrition assessmentThe data set between the solid lines has been imported from the dietitian's assessment. BMI Calculated: 27.7Nutrition related diagnosis: OverweightNutrition diagnosis details: BMI 25-29.9Nutrition problem: Increased nutrient needsNutrition etiology: Decreased mobilityNutrition signs and symptoms: ENTERAL NUTRITION TO MEET , ENERGY NEEDS , (DIET ADVANCED TO PUREED AND, TOLERATED.), Pressure injuryNutrition prescription: 1. RECOMMEND PUREED CCD5 DIET. 2. PROVIDE GLUCERNA TID WITH MEALS/SAMEER BID 3. MONITOR PO, WT, LABS, BM.Dietitian name: Rohan Sarah, DIETAssessment completed: 09/05/23 Physical ExamGeneral appearance: alert, awakeHEENT: atraumatic, clear cornea, normocephalicNeck: suppleCardiovascular: regular rate rhythmRespiratory: on oxygenAbdomen: softGenitourinary: not indicatedExtremities: warmNeuro/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: alertSkin: warmFindings/data:Laboratory Tests: 09/11 09/11 09/10 09/10 1154 0733 2011 1647 Chemistry POC Glucose (70 - 110 MG/DL) 81 121 H 163 H 151 H Laboratory Tests: 09/11 09/11 09/10 09/10 1154 0733 2011 1647 Chemistry POC Glucose (70 - 110 MG/DL) 81 121 H 163 H 151 H Diagnosis, Assessment PlanFree Text A P:1.DM DFIbpE3d 8.2adjust Lantus adjust Humalog monitor glucose diabetic diet DC Plan: Lantus, Humalog, follow at next available appointment. 2.Abnormal thyroid functions 08/06 TSH 0.07 FT4 1 recheck in a couple of days 3.Suspected ischemic strokeMRI brain without contrastEchocardiogramTelemetryneurology following 4.Coronary artery diseasePCI on July 03, 2023Echocardiogram preserved LVEFdual antiplateletscardiology following 5. Elevated LFTsGI following 6.MRCP with complex cystic fluid collectionpost drainage surgery following at 1226 at 1307 RPT #:[id number] OF REPORTPRProgress [id number]:23:00G.[id number] for patient oqkeFYUJPTQKVKCWEN8289-01-26Y60:27:21 [facility] 2023-09-12 11:02:00 [id number] VqjRCl7KCxozT8htL+4 NF8W9uL0mSpQalLM62945-44-48F45:02:00 [facility] ([facility])Palliative Care Progress NoteREPORT#:[id number] REPORT STATUS: SignedREPORT INITIALIZATION DATE:09/12/23 TIME: 1102 PATIENT: MISSY CANALES UNIT #: [id number]#: [id number] [address] [birth year] AGE: 68 SEX: M ATTEND: Raphael Ly MDADM AUTHOR: Glenny Mclaughlin FNPREPT SERVICE DT/TIME: 09/12/23 1102* ALL edits or amendments must be made on the electronic/computer document * SubjectiveHPI:Mr. Missy Canales is 68 year old male with Acute cholangitis, Elevated LFTs, LiverAbscess and Failure to thrive. Palliative care consulted to discuss goals of care. Objective GeneralVS:Last Documented: Result Date Time Pulse Ox 99 09/11 658 B/P 110/73 09/11 658 B/P Mean 85.3 09/11 0559 O2 Delivery Room air 09/11 658 Temp 37.4 09/11 0659 Pulse 90 09/11 0659 Resp 17 09/11 0659 O2 Flow Rate 2 08/27 1022 FiO2 40 08/07 0752 PATIENT WEIGHT: Weight (lb): 177Weight (oz): 14.61Weight (kg): 80.286 Diagnosis, Assessment PlanHospital course to date:Mr. Missy Canales is 68 year old male with Acute cholangitis, Elevated LFTs, LiverAbscess and Failure to thrive. Palliative care consulted to discuss goals of care. Patient seen and examined. Spoke with Ms. Canales regarding goals of care including plan to possibly transfer to skill nursing facility versus palliative care versus hospice. She stated, "she needs additional time and does not want to have discussion right now" I will continue to support the patient and family during this difficult time. Thank you for allowing me to assist in the care of Mr. Missy Canales. Time spent - 1730 - 1800 - 30 minutes. 08-22-2023 Patient seen and examined. Spoke with Ms. Canales regarding goals of care including plan to possibly transfer to skill nursing facility versus palliative care versus hospice. She stated, "I will check out the senior care facilities today and need additional time". I will continue to support the patient and family during this difficult time. Thank you for allowing me to assist in the care of Mr. Missy Canales. Time spent - 1130 - 1200 - 30 minutes. 08-23-2023 Patient seen and examined. Spoke with Ms. Canales at bedside regarding goals of care including plan to possibly transfer to skill nursing facility versus palliative care versus hospice. She stated, "He is going to [facility] then to rehab". Explained the benefits of oupatient palliative care and discussed advance directives including living will and MPOA if he is oriented to make decisions. No changes at this time. I will continue to support the patient and family during this difficult time. Thank you for allowing me to assist in the care of Mr. Missy Canales. Time spent - 1730 - 1800 - 30 minutes. 08-27-2023 Patient seen and examined. Spoke with Ms. Canales regarding goals of care - she intends to have her spouse go to SNF. I will continue to support the patient and family during this difficult time. Thank you for allowing me to assist in the care of Mr. Missy Canales. Time spent - 1330 - 1400 - 30 minutes. 08-28-2023 Patient seen and examined. Spoke with Ms. Canales regarding goals of care - no changes in GOC plan to discharge to SNF. Case management assisting family with SNF. I will continue to support the patient and family during this difficult time. Thank you for allowing me to assist in the care of Mr. Missy Canales. Time spent - 1430 - 1500 - 30 minutes. 08-29-2023 Patient seen and examined. Spoke with Ms. Canales regarding goals of care - no changes in GOC plan to discharge to SNF. I will continue to support the patient and family during this difficult time. Thank you for allowing me to assist in the care of Mr. Missy Canales. Time spent - 30 minutes 09-04-2023 Patient seen and examined. no changes in GOC plan to discharge to SNF accordingto patient's spouse. I will continue to support the patient and family during this difficult time. Thank you for allowing me to assist in the care of Mr. Parikh. Time spent - 30 minutes 09-05-2023 Patient seen and examined. Patient's spouse at bedside reports plan for patientto go to SNF . I will continue to support the patient and family during this difficult time. Thank you for allowing me to assist in the care of Mr. Missy Canales. Time spent 0930 - 1000 - 30 minutes 09-06-2023 Patient seen and examined. Patient's spouse at bedside . No changes in care and no questions at this time. Discussed outpatient palliative care to prevent future hospitalization. No changes at this time. I will continue to support the patient and family during this difficult time. Thank you for allowing me toassist in the care of Mr. Missy Canales. Time spent- 0900 - 930 - 30 minutes 09-07-2023 Patient seen and examined. No changes in care and no questions at this time. Case management assisting with discharge planning for today. I will continue tosupport the patient and family during this difficult time. Thank you for allowing me to assist in the care of Mr. Missy Canales. Time spent- 0900 - 920 - 20 minutes 09-12-2023 Patient seen and examined. Spoke with patient's spouse via phone, patient and son at bedside regarding discharge home with outpatient palliative care benefitsto prevent future hospitalizations. Agreed to outpatient palliative care. Notified Dr. Clyde Lares DO. I will continue to support the patient and family during this difficult time. Thank you for allowing me to assist in the care of Mr. Missy Canales. Time spent- 0900 - 920 - 20 minutes Quality Current MedicationsCurrent medication review:I attest that the foregoing medication list in the medical record is true, accurate, and complete to the best of my knowledge. Advanced Care Plan 65 or OlderDiscussed with: patient, surrogate decis. maker at 2107 RPT #:[id number] OF REPORTPRProgress [id number]:02:00G.[id number] for patient vgdoFQWQUQCCIOXTHQ6568-80-93S10:08:10 [facility] 2023-09-12 10:38:00 [id number] [id number] [id number]:38:00 [facility] CenterHospital[facility] Progress NoteREPORT#:[id number] REPORT STATUS: SignedREPORT INITIALIZATION DATE:09/12/23 TIME: 1038 PATIENT: MISSY CANALES UNIT #: [id number]#: [id number] [address] [birth year] AGE: 68 SEX: M ATTEND: Raphael Ly MDADM AUTHOR: Clyde Lares DOREPT SERVICE DT/TIME: 09/12/23 1038* ALL edits or amendments must be made on the electronic/computer document * SubjectiveChief complaint:Patient is resting comfortably in bed this morning in no acute distress Objective GeneralVS/I O:Vital Signs: Date Time Temp Pulse Resp B/P B/P Pulse O2 O2 Flow FiO2 Mean Ox Delivery Rate 09/11 0659 99.3 90 17 110/73 85.3 99 Room air 09/11 0447 98.2 88 14 94/61 72.2 99 Room air 09/10 2346 98.2 89 14 101/65 76.6 98 Room air 09/10 2013 99.9 99 14 97/64 74.9 99 Room air 09/10 1602 98.1 74 15 112/64 80 99 Room air 09/10 1201 76 16 105/63 77.2 98 Room air 24 hour I O ending at 0700: 09/11 0700 09/10 1900 Intake Total Output Total 1900 Balance -1900 Output, Urine 1900 PATIENT WEIGHT: Weight (lb): 177Weight (oz): 14.61Weight (kg): 80.286 Medications:Active Meds + DC'd Last 24 HrsInsulin Human Lispro (HUMALOG) 5 UNIT AC SUBQ Metoprolol Tartrate (LOPRESSOR) 25 MG BID PO Acetaminophen (TYLENOL) 650 MG Q4H PRN PRN RECTAL Insulin Human Lispro (HUMALOG) 4 UNIT AC SUBQ (DC) Magnesium Oxide (MAG-OX 400) 800 MG DAILY PO Potassium Chloride (K-CHAPITO 20 MEQ PACKET) 40 MEQ DAILY PO Collagenase (SANTYL 2GM TOPICAL) 1 APPLIC DAILY TOPICAL Zinc Oxide (ZINC OXIDE 30 GM OINTMENT) 1 APPLIC BID TOPICAL Amiodarone HCl (CORDARONE) 200 MG BID 9A 5P FEED-TUBE Apixaban (ELIQUIS 5MG TABLET) 5 MG BID 9A 5P PO Pantoprazole (PROTONIX) 40 MG BID AC PO Insulin Glargine (Semglee) 20 UNIT DAILY SUBQ Tamsulosin HCl (Flomax 0.4 mg) 0.4 MG PC BK PO Insulin Human Lispro (HUMALOG) 0 AC HS SUBQ Atorvastatin Calcium (LIPITOR) 40 MG BEDTIME PO Lactulose (LACTULOSE) 20 GM Q12HR PO Senna/Docusate Sodium (SENOKOT S) 1 TAB Q12HR PO Allopurinol (ZYLOPRIM) 300 MG DAILY PO Aspirin (ASPIRIN) 81 MG DAILY PO Acetaminophen (TYLENOL) 650 MG Q6H PRN PRN PO Bisacodyl (DULCOLAX) 10 MG DAILY PRN PRN RECTAL Polyethylene Glycol (MIRALAX) 17 GM Q12H PO Dextrose/Water (DEXTROSE 10% IN WATER) 125 ML ASDIR PRN IV (CKD) Dextrose/Water (DEXTROSE 10% IN WATER) 250 ML ASDIR PRN IV (CKD) Glucagon (GLUCAGON) 1 MG ASDIR PRN IM Sodium Chloride (SODIUM CHLORIDE 0.9%) 250 ML BOLUS PRN IV Latanoprost (XALATAN 2.5 ML OPHTH SOLN) 1 DROP BEDTIME EACH EYE Timolol Maleate (TIMOPTIC 0.5% 5 ML OPHTH SOLN) 1 DROP BID EACH EYE Brimonidine Tartrate (Alphagan-P 0.2% 5 ML OPHTH SOLN) 1 DROP Q8HR EACH EYE Hydralazine HCl (APRESOLINE) 10 MG Q6H PRN PRN IV Ondansetron HCl (ZOFRAN) 4 MG Q4H PRN PRN IV Physical ExamGeneral appearance: alert, awake, orientedHead/Eyes: atraumatic, normocephalic, PERRLAENT: moist mucosal membranes, normal dentitionNeck: full range of motion, non-tender, no JVDCardiovascular: normal heart sounds, regular rate rhythmRespiratory: aerating well, symmetric expansion, no distressAbdomen: non-tender, normal bowel sounds, jtube present with minimal collection (liver abscess drains in place)Genitourinary: no bladder distention, no flank painExtremities: no clubbing, no cyanosisMusculoskeletal: no muscle spasmNeuro/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: abnormal speech, disoriented, alert ResultsFindings/Data:Laboratory Tests 04/17 09/10 1647 1153 Chemistry POC Glucose (70 - 110 MG/DL) 121 H 163 H 151 H 178 H Treatment Prophylaxis Treatment ProphylaxisOxygen: room air Diagnosis, Assessment PlanProblem List/A P: 1. Acute cholangitis 2. Elevated LFTs 3. Liver abscess 4. Failure to thrive Free Text DxA P NotesFree text DxA P notes:68-year-old male admitted with abdominal pain, noted with NSTEMI, s/p stent placement to diagonal artery on 07/02/23. Still need staged PCI to RCA. Patient was noted with a liver abscess, seen by general surgery and GI, drain was placedby IR, has been tolerating antibiotics well. Patient was noted with some anemia, EGD was unremarkable but for gastric ulcers with no active bleeding.* Appreciated input from general surgery, GI, cardiology, and ID* Continue on PPI* Monitor output from liver drain* Encourage oral intake and therapy* is working with test case developer to arrange for home health* See my DC summary from 08/22 for details at 1041 RPT #:[id number] OF REPORTPRProgress [id number]:38:00G.[id number] for patient gsppRBQJGJSSPVVQOM2465-50-46Z37:41:33 [facility] 2023-09-11 12:28:00 [id number]+ x6NohLpF8vUyAM0xWoL C5RMD50tnrv/1tUfS6704-92-49K48:28:00 [facility] ([facility])Endocrinology Progress NoteREPORT#:[id number] REPORT STATUS: SignedREPORT INITIALIZATION DATE:09/11/23 TIME: 1228 PATIENT: MISSY CANALES UNIT #: [id number]#: [id number] [address]DOB: [birth year] AGE: 68 SEX: M ATTEND: Raphael Ly AUTHOR: Agus Duckworth APRNNPREPT SERVICE DT/TIME: 09/11/23 1110* ALL edits or amendments must be made on the electronic/computer document * SubjectiveChief complaint:f/u DM IItolerating dietawaiting SNF placement Objective GeneralVS:Last Documented: Result Date Time Pulse Ox 98 09/10 1201 B/P 105/63 09/10 1201 B/P Mean 77.2 09/10 1201 O2 Delivery Room air 09/10 1201 Pulse 76 09/10 1201 Resp 16 09/10 1201 Temp 97.0 09/10 0725 O2 Flow Rate 2 08/27 1022 FiO2 40 08/07 0752 PATIENT WEIGHT: Weight (lb): 177Weight (oz): 14.61Weight (kg): 80.286 Medications:Active Meds + DC'd Last 24 HrsInsulin Human Lispro (HUMALOG) 5 UNIT AC SUBQ Metoprolol Tartrate (LOPRESSOR) 25 MG BID PO Acetaminophen (TYLENOL) 650 MG Q4H PRN PRN RECTAL Insulin Human Lispro (HUMALOG) 4 UNIT AC SUBQ (DC) Magnesium Oxide (MAG-OX 400) 800 MG DAILY PO Potassium Chloride (K-CHAPITO 20 MEQ PACKET) 40 MEQ DAILY PO Metoprolol Tartrate (LOPRESSOR) 50 MG BID PO (DC) Collagenase (SANTYL 2GM TOPICAL) 1 APPLIC DAILY TOPICAL Zinc Oxide (ZINC OXIDE 30 GM OINTMENT) 1 APPLIC BID TOPICAL Amiodarone HCl (CORDARONE) 200 MG BID 9A 5P FEED-TUBE Apixaban (ELIQUIS 5MG TABLET) 5 MG BID 9A 5P PO Pantoprazole (PROTONIX) 40 MG BID AC PO Insulin Glargine (Semglee) 20 UNIT DAILY SUBQ Tamsulosin HCl (Flomax 0.4 mg) 0.4 MG PC BK PO Insulin Human Lispro (HUMALOG) 0 AC HS SUBQ Atorvastatin Calcium (LIPITOR) 40 MG BEDTIME PO Lactulose (LACTULOSE) 20 GM Q12HR PO Senna/Docusate Sodium (SENOKOT S) 1 TAB Q12HR PO Allopurinol (ZYLOPRIM) 300 MG DAILY PO Aspirin (ASPIRIN) 81 MG DAILY PO Acetaminophen (TYLENOL) 650 MG Q6H PRN PRN PO Bisacodyl (DULCOLAX) 10 MG DAILY PRN PRN RECTAL Polyethylene Glycol (MIRALAX) 17 GM Q12H PO Dextrose/Water (DEXTROSE 10% IN WATER) 125 ML ASDIR PRN IV (CKD) Dextrose/Water (DEXTROSE 10% IN WATER) 250 ML ASDIR PRN IV (CKD) Glucagon (GLUCAGON) 1 MG ASDIR PRN IM Sodium Chloride (SODIUM CHLORIDE 0.9%) 250 ML BOLUS PRN IV Latanoprost (XALATAN 2.5 ML OPHTH SOLN) 1 DROP BEDTIME EACH EYE Timolol Maleate (TIMOPTIC 0.5% 5 ML OPHTH SOLN) 1 DROP BID EACH EYE Brimonidine Tartrate (Alphagan-P 0.2% 5 ML OPHTH SOLN) 1 DROP Q8HR EACH EYE Hydralazine HCl (APRESOLINE) 10 MG Q6H PRN PRN IV Ondansetron HCl (ZOFRAN) 4 MG Q4H PRN PRN IV Dietitian nutrition assessmentThe data set between the solid lines has been imported from the dietitian's assessment. BMI Calculated: 27.7Nutrition related diagnosis: OverweightNutrition diagnosis details: BMI 25-29.9Nutrition problem: Increased nutrient needsNutrition etiology: Decreased mobilityNutrition signs and symptoms: ENTERAL NUTRITION TO MEET , ENERGY NEEDS , (DIET ADVANCED TO PUREED AND, TOLERATED.), Pressure injuryNutrition prescription: 1. RECOMMEND PUREED CCD5 DIET. 2. PROVIDE GLUCERNA TID WITH MEALS/SAMEER BID 3. MONITOR PO, WT, LABS, BM.Dietitian name: Rohan Sarah, DIETAssessment completed: 09/05/23 Physical ExamGeneral appearance: alert, awakeHEENT: atraumatic, clear cornea, normocephalicNeck: suppleCardiovascular: regular rate rhythmRespiratory: on oxygenAbdomen: softGenitourinary: not indicatedExtremities: warmNeuro/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: alertSkin: warmFindings/data:Laboratory Tests: 09/10 1609 Chemistry POC Glucose (70 - 110 MG/DL) 152 H 195 H 181 H Laboratory Tests: 09/10 1609 Chemistry POC Glucose (70 - 110 MG/DL) 152 H 195 H 181 H Diagnosis, Assessment PlanFree Text A P:1.DM TBTskY2n 8.2adjust Lantus adjust Humalog monitor glucose diabetic diet DC Plan: Lantus, Humalog, follow at next available appointment. 2.Abnormal thyroid functions 08/06 TSH 0.07 FT4 1 recheck in a couple of days 3.Suspected ischemic strokeMRI brain without contrastEchocardiogramTelemetryneurology following 4.Coronary artery diseasePCI on July 03, 2023Echocardiogram preserved LVEFdual antiplateletscardiology following 5. Elevated LFTsGI following 6.MRCP with complex cystic fluid collectionpost drainage surgery following at 1226 at 1307 RPT #:[id number] OF REPORTPRProgress [id number]:28:00G.[id number] for patient acxmWASGCEVVGPJBUL7946-97-99C77:27:11 [facility] 2023-09-11 11:43:00 [id number]/oOOQOCgt3cO7s5UAp9P51 8fB7Ks3yHQSFd30PC4h wdLtKGAOe3p2Ri8hn1264-81-96G06:43:00 [facility] ([facility])Wound Care Progress NoteREPORT#:[id number] REPORT STATUS: SignedREPORT INITIALIZATION DATE:09/11/23 TIME: 1143 PATIENT: MISSY CANALES UNIT #: [id number]#: [id number] ROOM[address]BED: [address]: [birth year] AGE: 68 SEX: M ATTEND: DavereganRaphael Morelia MDADM AUTHOR: Lilly Riggins APRNNPREPT SERVICE DT/TIME: 09/11/23 1143* ALL edits or amendments must be made on the electronic/computer document * Lilly Riggins 09/11/23 1143:SubjectiveChief complaint:both heels and sacralHPI:68-year-old male being seen for follow-up of all his wounds. is at bedside. Objective GeneralVS:Last Documented: Result Date Time Pulse Ox 99 09/10 0725 B/P 110/68 09/10 0725 B/P Mean 82.0 09/10 0725 O2 Delivery Room air 09/10 0725 Temp 36.1 09/10 0725 Pulse 83 09/10 0725 Resp 16 09/10 0725 O2 Flow Rate 2 08/27 1022 FiO2 40 08/07 0752 PATIENT WEIGHT: Weight (lb): 177Weight (oz): 14.61Weight (kg): 80.286 Medications:Active Meds + DC'd Last 24 HrsInsulin Human Lispro (HUMALOG) 5 UNIT AC SUBQ Metoprolol Tartrate (LOPRESSOR) 25 MG BID PO Acetaminophen (TYLENOL) 650 MG Q4H PRN PRN RECTAL Insulin Human Lispro (HUMALOG) 4 UNIT AC SUBQ (DC) Magnesium Oxide (MAG-OX 400) 800 MG DAILY PO Potassium Chloride (K-CHAPITO 20 MEQ PACKET) 40 MEQ DAILY PO Metoprolol Tartrate (LOPRESSOR) 50 MG BID PO (DC) Collagenase (SANTYL 2GM TOPICAL) 1 APPLIC DAILY TOPICAL Zinc Oxide (ZINC OXIDE 30 GM OINTMENT) 1 APPLIC BID TOPICAL Amiodarone HCl (CORDARONE) 200 MG BID 9A 5P FEED-TUBE Apixaban (ELIQUIS 5MG TABLET) 5 MG BID 9A 5P PO Pantoprazole (PROTONIX) 40 MG BID AC PO Insulin Glargine (Semglee) 20 UNIT DAILY SUBQ Tamsulosin HCl (Flomax 0.4 mg) 0.4 MG PC BK PO Insulin Human Lispro (HUMALOG) 0 AC HS SUBQ Atorvastatin Calcium (LIPITOR) 40 MG BEDTIME PO Lactulose (LACTULOSE) 20 GM Q12HR PO Senna/Docusate Sodium (SENOKOT S) 1 TAB Q12HR PO Allopurinol (ZYLOPRIM) 300 MG DAILY PO Aspirin (ASPIRIN) 81 MG DAILY PO Acetaminophen (TYLENOL) 650 MG Q6H PRN PRN PO Bisacodyl (DULCOLAX) 10 MG DAILY PRN PRN RECTAL Polyethylene Glycol (MIRALAX) 17 GM Q12H PO Dextrose/Water (DEXTROSE 10% IN WATER) 125 ML ASDIR PRN IV (CKD) Dextrose/Water (DEXTROSE 10% IN WATER) 250 ML ASDIR PRN IV (CKD) Glucagon (GLUCAGON) 1 MG ASDIR PRN IM Sodium Chloride (SODIUM CHLORIDE 0.9%) 250 ML BOLUS PRN IV Latanoprost (XALATAN 2.5 ML OPHTH SOLN) 1 DROP BEDTIME EACH EYE Timolol Maleate (TIMOPTIC 0.5% 5 ML OPHTH SOLN) 1 DROP BID EACH EYE Brimonidine Tartrate (Alphagan-P 0.2% 5 ML OPHTH SOLN) 1 DROP Q8HR EACH EYE Hydralazine HCl (APRESOLINE) 10 MG Q6H PRN PRN IV Ondansetron HCl (ZOFRAN) 4 MG Q4H PRN PRN IV Dietitian Nutrition assessmentThe data set between the solid lines has been imported from the dietitian's assessment. BMI Calculated: 27.7Nutrition related diagnosis: OverweightNutrition diagnosis details: BMI 25-29.9Nutrition problem: Increased nutrient needsNutrition etiology: Decreased mobilityNutrition signs and symptoms: ENTERAL NUTRITION TO MEET , ENERGY NEEDS , (DIET ADVANCED TO PUREED AND, TOLERATED.), Pressure injuryNutrition prescription: 1. RECOMMEND PUREED CCD5 DIET. 2. PROVIDE GLUCERNA TID WITH MEALS/SAEMER BID 3. MONITOR PO, WT, LABS, BM.Dietitian name: Rohan Sarah, DIETAssessment completed: 09/05/23 Physical ExamGeneral appearance: awakeRespiratory: no distressSkin: open wounds. Wound AssessmentWound Assessment 1: Type/cause: pressure Wound location: heel (right and left) Site condition: necrotic tissue Stage of pressure ulcer: unstageableWound Assessment 2: Type/cause: pressure Wound location: sacral region Site condition: dehiscence, drainage Stage of pressure ulcer: stage III Wound margins: open ResultsFindings/Data:Laboratory Tests: 09/10 09/09 09/09 0724 1952 1609 Chemistry POC Glucose (70 - 110 MG/DL) 152 H 195 H 181 H Diagnosis, Assessment PlanProblem List/A P: 1. Pressure ulcer of sacral region, stage 3 2. Pressure ulcer, heel, right, unstageable 3. Pressure ulcer, heel, left, unstageable 4. Anemia 5. Failure to thrive Free Text A P:09/02/2023: Will continue with the Santyl to the heel areas. Will continue with the gentamicin to the sacral area. Anemia, which will impede wound healing, defer to the primary care team. Albumin is on the lower end which will also impede wound healing. Recommend dietary input. 09/03/2023: Patient currently in bed, no issues reported overnight; patient's blood sugars between 150-240s. Patient is currently taking Sameer, he is anemic and his albumin in low. Will continue Santyl in the bilateral heels and gentamicin in the sacral areas. 09/04/2023: Patient currently in bed, no issues reported overnight; patient's blood sugars between are stable today. Patient is currently taking Sameer. Will continue Santyl in the bilateral heels and gentamicin in the sacral areas. 09/05/2023: Patient resting in bed, at bedside and all concerns addressed. patient's blood sugars between normal levels . Patient is currently taking Sameer. Will continue Santyl in the bilateral heels and gentamicin in the sacral areas. Keep patient offload, apply Prevalon Boots and nutritional support. 09/06/2023: Patient resting in bed, and primary nurse at bedside. Patient'sblood sugars between normal levels . Patient is currently taking Sameer. Will continue Santyl in the bilateral heels and gentamicin in the sacral areas. Keep patient offload, apply Prevalon Boots and nutritional support. 09/07/2023: Patient resting in bed, no issues overnight. Patient's blood sugars between normal levels . Patient is currently taking Sameer. Will continue Santyl in the bilateral heels and gentamicin in the sacral areas. Keep patient offload,apply Prevalon Boots and nutritional support. 09/10/2023: Patient resting in bed, no issues overnight per . Patient's blood sugars between normal levels Will continue Santyl in the bilatera. isconcer regarding discharge, she feels that he needs LTAC to get physical therapyto get better. We will continue applying santyl to the heels and gentamicin in the sacral areas. Keep patient offload, apply Prevalon Boots and nutritional support. 09/11/2023: Patient resting in bed, no issues overnight per . stated that she is still waiting for LTAC or home health at this time. We will continueapplying santyl to the heels and gentamicin in the sacral areas. Keep patient offload, apply Prevalon Boots and nutritional support. Tano Sanchez 09/25/23 0802:AttestationsAttestation needed: supervising physician Physician AttestationAgree w/findings plan:Agree with the findings and plan as documented by ANGEL Lindsey* my personal evaluation isReviewed and agree with the history, physical findings, diagnosis and managementplan with ANGEL Lindsey at 1146 at 0811 [facility] #:[id number] OF REPORTPNProcedure [id number]:43:00G.[id number] for patient mdroKANKXUURRBLVNO1733-50-48N63:46:21 [facility] 2023-09-11 10:25:00 [id number]/AHN5kuzcS 2GFgIe38P70u/VFi+nT 0kTWDnzNdybu5SXrS0102-12-07V46:25:00 [facility] ([facility])Hospitalist Progress NoteREPORT#:[id number] REPORT STATUS: SignedREPORT INITIALIZATION DATE:09/11/23 TIME: 1024 PATIENT: MISSY CANALES UNIT #: [id number]#: [id number] [address] [birth year] AGE: 68 SEX: M ATTEND: Raphael Ly MDADM AUTHOR: Clyde Lares DOREPT SERVICE DT/TIME: 09/11/23 1025* ALL edits or amendments must be made on the electronic/computer document * SubjectiveChief complaint:Patient is doing well this morning with no acute complaint Objective GeneralVS/I O:Vital Signs: Date Time Temp Pulse Resp B/P B/P Pulse O2 O2 Flow FiO2 Mean Ox Delivery Rate 09/10 0725 97.0 83 16 110/68 82.0 99 Room air 09/10 0329 98.6 82 13 117/70 85.9 100 Room air 09/10 0003 99.0 79 16 105/66 78.9 99 Room air 09/09 1953 99.7 95 20 104/62 76.1 98 Room air 09/09 1609 93 18 111/66 81.2 99 09/09 1130 98.4 89 18 108/71 82.9 99 PATIENT WEIGHT: Weight (lb): 177Weight (oz): 14.61Weight (kg): 80.286 Medications:Active Meds + DC'd Last 24 HrsMetoprolol Tartrate (LOPRESSOR) 25 MG BID PO Acetaminophen (TYLENOL) 650 MG Q4H PRN PRN RECTAL Insulin Human Lispro (HUMALOG) 4 UNIT AC SUBQ Magnesium Oxide (MAG-OX 400) 800 MG DAILY PO Potassium Chloride (K-CHAPITO 20 MEQ PACKET) 40 MEQ DAILY PO Metoprolol Tartrate (LOPRESSOR) 50 MG BID PO (DC) Collagenase (SANTYL 2GM TOPICAL) 1 APPLIC DAILY TOPICAL Zinc Oxide (ZINC OXIDE 30 GM OINTMENT) 1 APPLIC BID TOPICAL Amiodarone HCl (CORDARONE) 200 MG BID 9A 5P FEED-TUBE Apixaban (ELIQUIS 5MG TABLET) 5 MG BID 9A 5P PO Pantoprazole (PROTONIX) 40 MG BID AC PO Insulin Glargine (Semglee) 20 UNIT DAILY SUBQ Tamsulosin HCl (Flomax 0.4 mg) 0.4 MG PC BK PO Insulin Human Lispro (HUMALOG) 0 AC HS SUBQ Atorvastatin Calcium (LIPITOR) 40 MG BEDTIME PO Lactulose (LACTULOSE) 20 GM Q12HR PO Senna/Docusate Sodium (SENOKOT S) 1 TAB Q12HR PO Allopurinol (ZYLOPRIM) 300 MG DAILY PO Aspirin (ASPIRIN) 81 MG DAILY PO Acetaminophen (TYLENOL) 650 MG Q6H PRN PRN PO Bisacodyl (DULCOLAX) 10 MG DAILY PRN PRN RECTAL Polyethylene Glycol (MIRALAX) 17 GM Q12H PO Dextrose/Water (DEXTROSE 10% IN WATER) 125 ML ASDIR PRN IV (CKD) Dextrose/Water (DEXTROSE 10% IN WATER) 250 ML ASDIR PRN IV (CKD) Glucagon (GLUCAGON) 1 MG ASDIR PRN IM Sodium Chloride (SODIUM CHLORIDE 0.9%) 250 ML BOLUS PRN IV Latanoprost (XALATAN 2.5 ML OPHTH SOLN) 1 DROP BEDTIME EACH EYE Timolol Maleate (TIMOPTIC 0.5% 5 ML OPHTH SOLN) 1 DROP BID EACH EYE Brimonidine Tartrate (Alphagan-P 0.2% 5 ML OPHTH SOLN) 1 DROP Q8HR EACH EYE Hydralazine HCl (APRESOLINE) 10 MG Q6H PRN PRN IV Ondansetron HCl (ZOFRAN) 4 MG Q4H PRN PRN IV Physical ExamGeneral appearance: alert, awake, orientedHead/Eyes: atraumatic, normocephalic, PERRLAENT: moist mucosal membranes, normal dentitionNeck: full range of motion, non-tender, no JVDCardiovascular: normal heart sounds, regular rate rhythmRespiratory: aerating well, symmetric expansion, no distressAbdomen: non-tender, normal bowel sounds, jtube present with minimal collection (liver abscess drains in place)Genitourinary: no bladder distention, no flank painExtremities: no clubbing, no cyanosisMusculoskeletal: no muscle spasmNeuro/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: abnormal speech, disoriented, alert ResultsFindings/Data:Laboratory Tests 09/10 09/09 09/09 09/09 0724 1952 1609 1129 Chemistry POC Glucose (70 - 110 MG/DL) 152 H 195 H 181 H 190 H Treatment Prophylaxis Treatment ProphylaxisOxygen: room air Diagnosis, Assessment PlanProblem List/A P: 1. Acute cholangitis 2. Elevated LFTs 3. Liver abscess 4. Failure to thrive Free Text DxA P NotesFree text DxA P notes:68-year-old male admitted with abdominal pain, noted with NSTEMI, s/p stent placement to diagonal artery on 07/02/23. Still need staged PCI to RCA. Patient was noted with a liver abscess, seen by general surgery and GI, drain was placedby IR, has been tolerating antibiotics well. Patient was noted with some anemia, EGD was unremarkable but for gastric ulcers with no active bleeding.* Appreciated input from general surgery, GI, cardiology, and ID* Continue on PPI* Appreciated morning labs* 1 liver drain was removed on Sunday, 1 is left* Encourage oral intake and therapy* is at the bedside and all concerns addressed* is working with test case developer to arrange for home health* See my DC summary from 08/22 for details at 1026 RPT #:[id number] OF REPORTPRProgress asda2167-75-63G46:25:00G.[id number] for patient msdoJQYGOJEIFIPGRV9777-81-65O70:26:45 [facility] 2023-09-11 07:42:00 [id number] bipuYCmmC2LjaLVYojj GT29KsUu0rsC6TmcJ9617-72-25R42:42:00 [facility] Progress NoteREPORT#:[id number] REPORT STATUS: SignedREPORT INITIALIZATION DATE:09/11/23 TIME: 741 PATIENT: MISSY CANALES UNIT #: [id number]#: [id number] [address] [birth year] AGE: 68 SEX: M ATTEND: Raphael Ly MDADM AUTHOR: Lisa Cancino MDREPT SERVICE DT/TIME: 09/11/23 0742* ALL edits or amendments must be made on the electronic/computer document * SubjectiveChief complaint:Elevated LFtsHPI:68 year old man s/p cardiac stents 2 weeks ago who was sent to the hospital withelevated LFTs and possible acute cholecystitis. Pt had a stenet recently placed and was started on DAPT. Pt had labs showing elevated LFTs and was sent here forevaluation. Labs showed leukocytosis 15k. Elevated Tbili 3.7. Dbili 2.8. AST 79,ALT 105 and ALP 225. RUQ U/S showed possible cholecystitis and normal CBD of 4 mm in diatmeter. Pt denies pain. No dark urine or peyton-color stool 08/03; patient feels well. MRCP reviewed. No choledocholithiasis. Fluid collection at the liver could be related secondary to gallbladder perforation. LFTs and white count are down. 08/04: Plan for IR for cholecystostomy tube placement. LFts stable. WBC elevated.Was confused this am but improving. NO pain. No fevers. Added flagyl to his Abx regimen 08/05: NO new complaints. IR for abscess drain and cholecystostomy tube 08/06: Transferred overnight to ICU due to AMS. S/P IR with cholecystostomy tube and abscess drain 08/07: severely constipated. NGT in with feeds. drains in. More awake today and oriented. right sided weakness likely acute stroke. MRI brain reviewed- small stroke. KUB reviewed 08/08: Doing better according to . Sheldon removed. Still on feeds 08/09: Feeds at 20 ml/hr. Still no BM 08/10-Had BM last night. Denies n/v/abd pain 08/11-Patient dislodged DH. DH was replaced. +BM today 08/12: has been having BM during the weekend 08/13: No new events 08/14: eating and moving bowels. 08/15: doing well. 08/26: I was called again to evaluate pt. He has melena-like stool and dropped hisH/H. Pt is on DAPT 08/27: S/P EGD showing gastric ulcer in the incisura. flat pigmentation without high rebleeding stigmata. 08/28: H/H stable. Family at bedside. NO melena 08/29: Stbale H/H. NO family at bediside this am 08/30: Stable H/H. 08/31-No GI complaints, family at bedside. HGB 8.3 09/01-HGB 8.8. Last BM today 09/02: Stable H/H. 09/03: H/H stable. Liver drain is no longer draining. cholecystostomy tube draining 09/04:Plan to remove liver drain. H/H stable. No melena 09/05: No complaints. eating getting stronger 09/06: No new labs. gettig better 09/10: stable H/H. Objective Physical ExamHEENT: EOMICardiovascular: normal heart soundsRespiratory: clear to auscultationAbdomen: non-tenderExtremities: no edemaSkin: dry, normal temperature Diagnosis, Assessment PlanProblem List/A P: 1. Elevated LFTs Free Text A P:cholestatic pattern. CBD normal on RuQ U/S MRCP showed no evidence of choledocholithiasis.Large fluid collection within the liver could be secondary to gallbladder perforation.Recommend surgical evaluation again.Continue with antibiotics. Add flagyl s/p cholecystostomy tube and drainage of cystic fluid collection. Awaiting culture EGD showed gastric ulcer with flat pigmentPPI PO BID Will need repeat EGD in 6 weeks to confirm healing and rule out malignancyConsider removing hepatic drainWill sign off at 0742 [facility] #:[id number] OF REPORTPRProgress vjzv7723-12-59C08:42:00G.[id number] for patient iwmwQEZJVOOCMYGXCM5509-14-69E97:42:50 [facility] 2023-09-11 07:37:00 [id number] mTSCzRS6+IhrMswLqp8 8jrZKNcQPAyvYAUt23921-89-58O41:37:00 [facility] ([facility])Cardiology Progress NoteREPORT#:[id number] REPORT STATUS: SignedREPORT INITIALIZATION DATE:09/11/23 TIME: 736 PATIENT: MISSY CANALES UNIT #: [id number]#: [id number] ROOM/BED: 6617[address]1DOB: [birth year] AGE: 68 SEX: M ATTEND: Raphael Ly MDADM AUTHOR: Esther BucknerCNPREPT SERVICE DT/TIME: 09/11/23736* ALL edits or amendments must be made on the electronic/computer document * SubjectivePatient reports:No: complaints. Objective GeneralVS/I O:Vital Signs: Date Time Temp Pulse Resp B/P B/P Pulse O2 O2 Flow FiO2 Mean Ox Delivery Rate 09/10 07 36.1 83 16 110/68 82.0 99 Room air 09/10 0329 37.0 82 13 117/70 85.9 100 Room air 09/10 0003 37.2 79 16 105/66 78.9 99 Room air 09/09 1953 37.6 95 20 104/62 76.1 98 Room air 09/09 1609 93 18 111/66 81.2 99 09/09 1130 36.9 89 18 108/71 82.9 99 PATIENT WEIGHT: Weight (lb): 177Weight (oz): 14.61Weight (kg): 80.286 Medications:Active Meds + DC'd Last 24 HrsMetoprolol Tartrate (LOPRESSOR) 25 MG BID PO Acetaminophen (TYLENOL) 650 MG Q4H PRN PRN RECTAL Insulin Human Lispro (HUMALOG) 4 UNIT AC SUBQ Magnesium Oxide (MAG-OX 400) 800 MG DAILY PO Potassium Chloride (K-CHAPITO 20 MEQ PACKET) 40 MEQ DAILY PO Metoprolol Tartrate (LOPRESSOR) 50 MG BID PO (DC) Collagenase (SANTYL 2GM TOPICAL) 1 APPLIC DAILY TOPICAL Zinc Oxide (ZINC OXIDE 30 GM OINTMENT) 1 APPLIC BID TOPICAL Amiodarone HCl (CORDARONE) 200 MG BID 9A 5P FEED-TUBE Apixaban (ELIQUIS 5MG TABLET) 5 MG BID 9A 5P PO Pantoprazole (PROTONIX) 40 MG BID AC PO Insulin Glargine (Semglee) 20 UNIT DAILY SUBQ Tamsulosin HCl (Flomax 0.4 mg) 0.4 MG PC BK PO Insulin Human Lispro (HUMALOG) 0 AC HS SUBQ Atorvastatin Calcium (LIPITOR) 40 MG BEDTIME PO Lactulose (LACTULOSE) 20 GM Q12HR PO Senna/Docusate Sodium (SENOKOT S) 1 TAB Q12HR PO Allopurinol (ZYLOPRIM) 300 MG DAILY PO Aspirin (ASPIRIN) 81 MG DAILY PO Acetaminophen (TYLENOL) 650 MG Q6H PRN PRN PO Bisacodyl (DULCOLAX) 10 MG DAILY PRN PRN RECTAL Polyethylene Glycol (MIRALAX) 17 GM Q12H PO Dextrose/Water (DEXTROSE 10% IN WATER) 125 ML ASDIR PRN IV (CKD) Dextrose/Water (DEXTROSE 10% IN WATER) 250 ML ASDIR PRN IV (CKD) Glucagon (GLUCAGON) 1 MG ASDIR PRN IM Sodium Chloride (SODIUM CHLORIDE 0.9%) 250 ML BOLUS PRN IV Latanoprost (XALATAN 2.5 ML OPHTH SOLN) 1 DROP BEDTIME EACH EYE Timolol Maleate (TIMOPTIC 0.5% 5 ML OPHTH SOLN) 1 DROP BID EACH EYE Brimonidine Tartrate (Alphagan-P 0.2% 5 ML OPHTH SOLN) 1 DROP Q8HR EACH EYE Hydralazine HCl (APRESOLINE) 10 MG Q6H PRN PRN IV Ondansetron HCl (ZOFRAN) 4 MG Q4H PRN PRN IV Physical ExamGeneral appearance: alert, awakeNeck: non-tender, no JVDCardiovascular: CV assessment: regular rate and rhythmRespiratory: decreased breath sounds, no distressAbdomen: soft, non-tenderGenitourinary: no flank pain, no urinary catheterLower extremity: LE assessment: no calf tenderness, no edemaMusculoskeletal: normal inspectionNeuro/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: right hemiparesis, alertPsychiatry: normal affect, normal mood ResultsFindings/Data:Laboratory Tests 09/09 1609 1129 Chemistry POC Glucose (70 - 110 MG/DL) 195 H 181 H 190 H Results: no new labs, vital signs reviewed Diagnosis, Assessment PlanPlan discussed with: patient Free Text DxA P NotesFree Text DxA P Notes:1. Coronary artery disease s/p recent PCI/TERESA to diagonal artery* Troponin trend is flat* Hx of CABG (2000)* s/p stent placement to diagonal artery on 07/02/23. Still need staged PCI to RCA. * Echocardiogram preserved LVEF.* PPI: lansoprazole 30 mg BID* Plavix dc'd (08/30/23), switched to Eliquis (afib) and ASA 2. Elevated LFTs/acute cholecystitis/liver abscess* s/p cholecystostomy tube placement. * ID on board managing antibiotic* GI on board* s/p EGD: nonbleeding ulcer 3. AMS: MRI brain showed small subacute ischemia in the L coronary radiata * MRI of the brain unchanged 4. Tachycardia with PVCs and PACs/Paroxysmal atrial fibrillation* HWD4YV7-JUMr score 6, recommend AC * HASBLED 4* continue Eliquis 5 mg BID plus ASA 81 mg daily. * continue amiodarone 200 mg BID* continue metoprolol tartrate 25 mg BID 5. Anemia* hgb 6.3 up to 8.9->8.6->6.9->7->8.7->8.6->8.3->8.8->8.6* s/p 2 units PRBCs 08/20/23, 1 unit PRBC 08/26/23* On PPI* s/p EGD showed nonbleeding ulcer 6. Hypokalemia/hypomagnesemia* continue KCL 40 mg daily* continue Mag oxide 800 mg daily* encourage oral intake SNF denied, DC home with HH.Stable CV status.Outpatient follow-up with Dr. Hennessy. Medical decision making by Dr. Daniel. at 1448 RPT #:[id number] OF REPORTPRProgress [id number]:37:00G.[id number] for patient hzjcPLIGLFQRASWGQG8828-95-29M27:48:59 HCACL 2023-09-10 19:22:00 [id number]+S 2a1CSRj2jOBMqCQt0PT 7i3bW0aoNYDALn8FR0414-73-60R48:22:00 [facility] ([facility])Wound Care Progress NoteREPORT#:[id number] REPORT STATUS: SignedREPORT INITIALIZATION DATE:09/10/23 TIME: 1921 PATIENT: MISSY CANALES UNIT #: [id number]#: [id number] [address] AGE: 68 SEX: M ATTEND: Raphael Ly MDADM AUTHOR: Lilly Riggins APRNNPREPT SERVICE DT/TIME: 09/10/231921* ALL edits or amendments must be made on the electronic/computer document * Lilly Riggins 09/10/231921:SubjectiveChief complaint:both heels and sacralHPI:68-year-old male being seen for follow-up of all his wounds. is at bedside.Patient reports:No: complaints. Objective GeneralVS:Last Documented: Result Date Time Pulse Ox 99 09/09 1609 B/P 111/66 09/09 1609 B/P Mean 81.2 09/09 1609 Pulse 93 09/09 1609 Resp 18 09/09 1609 Temp 36.9 09/09 1130 O2 Delivery Room air 09/09 0718 O2 Flow Rate 2 08/27 1022 FiO2 40 08/07 0752 PATIENT WEIGHT: Weight (lb): 177Weight (oz): 14.61Weight (kg): 80.286 Medications:Active Meds + DC'd Last 24 HrsMetoprolol Tartrate (LOPRESSOR) 25 MG BID PO Acetaminophen (TYLENOL) 650 MG Q4H PRN PRN RECTAL Insulin Human Lispro (HUMALOG) 4 UNIT AC SUBQ Magnesium Oxide (MAG-OX 400) 800 MG DAILY PO Potassium Chloride (K-CHAPITO 20 MEQ PACKET) 40 MEQ DAILY PO Metoprolol Tartrate (LOPRESSOR) 50 MG BID PO (DC) Collagenase (SANTYL 2GM TOPICAL) 1 APPLIC DAILY TOPICAL Zinc Oxide (ZINC OXIDE 30 GM OINTMENT) 1 APPLIC BID TOPICAL Amiodarone HCl (CORDARONE) 200 MG BID 9A 5P FEED-TUBE Apixaban (ELIQUIS 5MG TABLET) 5 MG BID 9A 5P PO Pantoprazole (PROTONIX) 40 MG BID AC PO Insulin Glargine (Semglee) 20 UNIT DAILY SUBQ Tamsulosin HCl (Flomax 0.4 mg) 0.4 MG PC BK PO Insulin Human Lispro (HUMALOG) 0 AC HS SUBQ Atorvastatin Calcium (LIPITOR) 40 MG BEDTIME PO Lactulose (LACTULOSE) 20 GM Q12HR PO Senna/Docusate Sodium (SENOKOT S) 1 TAB Q12HR PO Allopurinol (ZYLOPRIM) 300 MG DAILY PO Aspirin (ASPIRIN) 81 MG DAILY PO Acetaminophen (TYLENOL) 650 MG Q6H PRN PRN PO Bisacodyl (DULCOLAX) 10 MG DAILY PRN PRN RECTAL Polyethylene Glycol (MIRALAX) 17 GM Q12H PO Dextrose/Water (DEXTROSE 10% IN WATER) 125 ML ASDIR PRN IV (CKD) Dextrose/Water (DEXTROSE 10% IN WATER) 250 ML ASDIR PRN IV (CKD) Glucagon (GLUCAGON) 1 MG ASDIR PRN IM Sodium Chloride (SODIUM CHLORIDE 0.9%) 250 ML BOLUS PRN IV Latanoprost (XALATAN 2.5 ML OPHTH SOLN) 1 DROP BEDTIME EACH EYE Timolol Maleate (TIMOPTIC 0.5% 5 ML OPHTH SOLN) 1 DROP BID EACH EYE Brimonidine Tartrate (Alphagan-P 0.2% 5 ML OPHTH SOLN) 1 DROP Q8HR EACH EYE Hydralazine HCl (APRESOLINE) 10 MG Q6H PRN PRN IV Ondansetron HCl (ZOFRAN) 4 MG Q4H PRN PRN IV Dietitian Nutrition assessmentThe data set between the solid lines has been imported from the dietitian's assessment. BMI Calculated: 27.7Nutrition related diagnosis: OverweightNutrition diagnosis details: BMI 25-29.9Nutrition problem: Increased nutrient needsNutrition etiology: Decreased mobilityNutrition signs and symptoms: ENTERAL NUTRITION TO MEET , ENERGY NEEDS , (DIET ADVANCED TO PUREED AND, TOLERATED.), Pressure injuryNutrition prescription: 1. RECOMMEND PUREED CCD5 DIET. 2. PROVIDE GLUCERNA TID WITH MEALS/SAMEER BID 3. MONITOR PO, WT, LABS, BM.Dietitian name: Rohan Sarah, DIETAssessment completed: 09/05/23 Physical ExamGeneral appearance: awakeRespiratory: no distressSkin: open wounds. Wound AssessmentWound Assessment 1: Type/cause: pressure Wound location: heel (right and left) Site condition: necrotic tissue Stage of pressure ulcer: unstageableWound Assessment 2: Type/cause: pressure Wound location: sacral region Site condition: dehiscence, drainage Stage of pressure ulcer: stage III Wound margins: open ResultsFindings/Data:Laboratory Tests: 09/09 09/09 09/09 09/09 1609 1129 0717 0548Chemistry Sodium (134 - 147 mEq/L) 133 L Potassium (3.4 - 5.0 mEq/L) 4.3 Chloride (100 - 108 mEq/L) 103 Carbon Dioxide (21 - 33 mEq/l) 24 Anion Gap (0 - 20) 10 BUN (7 - 25 mg/dL) 16 Creatinine (0.6 - 1.3 mg/dL) 0.7 Glomerular Filtr Rate (70 - 80) 99.1 H Glucose (77 - 141 mg/dL) 149 H POC Glucose (70 - 110 MG/DL) 181 H 190 H 137 H Calcium (8.0 - 10.5 mg/dL) 8.1 Total Bilirubin (0.0 - 1.0 mg/dL) 0.50 AST (8 - 34 IUnit/L) 58 H ALT (10 - 49 IUnit/L) 48 Total Alk Phosphatase (20 - 125 IUnit/L) 137 H Total Protein (6.4 - 8.2 g/dL) 6.7 Albumin (3.4 - 5.0 g/dL) 1.70 LHematology WBC (4.5 - 11.0 x10 3/uL) 8.1 RBC (4.00 - 5.60 x10 6/uL) 2.83 L Hgb (12.5 - 16.9 g/dL) 8.5 L Hct (37.5 - 50.7 %) 26.6 L MCV (81.0 - 99.0 fL) 94.0 MCH (27.0 - 33.0 pg) 30.0 MCHC (33.0 - 37.0 g/dL) 32.0 L RDW (11.5 - 14.5 %) 15.4 H Plt Count (150 - 400 x10 3/uL) 271 MPV (7.0 - 9.0 fL) 9.8 H Neut % (Auto) (56.0 - 77.0 %) 45.6 L Lymph % (Auto) (14.0 - 32.0 %) 41.4 H Evans % (Auto) (4.8 - 9.0 %) 9.6 H Eos % (Auto) (0.3 - 3.7 %) 2.8 Baso % (Auto) (0.0 - 2.0 %) 0.4 Neut # (Auto) (2.0 - 7.6 x10 3/uL) 3.69 Lymph # (Auto) (1.0 - 3.8 x10 3/uL) 3.35 Evans # (Auto) (0.1 - 0.8 x10 3/uL) 0.78 Eos # (Auto) (0.0 - 0.2 x10 3/uL) 0.23 H Baso # (Auto) (0.0 - 0.2 x10 3/uL) 0.03 Abs Immat Gran (auto) (0.00 - 0.03 x10 3/uL) 0.02 Immature Gran % (0.0 - 2.0 %) 0.2 Nucleated RBC % (0 - 0 %) 0.0 Nucleated RBCs # (Man) (0.0 - 0.1 x10 3/uL) 0.00 Diagnosis, Assessment PlanProblem List/A P: 1. Pressure ulcer of sacral region, stage 3 2. Pressure ulcer, heel, right, unstageable 3. Pressure ulcer, heel, left, unstageable 4. Anemia 5. Failure to thrive Free Text A P:09/02/2023: Will continue with the Santyl to the heel areas. Will continue with the gentamicin to the sacral area. Anemia, which will impede wound healing, defer to the primary care team. Albumin is on the lower end which will also impede wound healing. Recommend dietary input. 09/03/2023: Patient currently in bed, no issues reported overnight; patient's blood sugars between 150-240s. Patient is currently taking Sameer, he is anemic and his albumin in low. Will continue Santyl in the bilateral heels and gentamicin in the sacral areas. 09/04/2023: Patient currently in bed, no issues reported overnight; patient's blood sugars between are stable today. Patient is currently taking Sameer. Will continue Santyl in the bilateral heels and gentamicin in the sacral areas. 09/05/2023: Patient resting in bed, at bedside and all concerns addressed. patient's blood sugars between normal levels . Patient is currently taking Sameer. Will continue Santyl in the bilateral heels and gentamicin in the sacral areas. Keep patient offload, apply Prevalon Boots and nutritional support. 09/06/2023: Patient resting in bed, and primary nurse at bedside. Patient'sblood sugars between normal levels . Patient is currently taking Sameer. Will continue Santyl in the bilateral heels and gentamicin in the sacral areas. Keep patient offload, apply Prevalon Boots and nutritional support. 09/07/2023: Patient resting in bed, no issues overnight. Patient's blood sugars between normal levels . Patient is currently taking Sameer. Will continue Santyl in the bilateral heels and gentamicin in the sacral areas. Keep patient offload,apply Prevalon Boots and nutritional support. 09/10/2023: Patient resting in bed, no issues overnight per . Patient's blood sugars between normal levels Will continue Santyl in the bilatera. isconcer regarding discharge, she feels that he needs LTAC to get physical therapyto get better. We will continue applying santyl to the heels and gentamicin in the sacral areas. Keep patient offload, apply Prevalon Boots and nutritional support. Tano Sanchez 09/25/23 0806:AttestationsAttestation needed: supervising physician Physician AttestationAgree w/findings plan:Agree with the findings and plan as documented by ANGEL Lindsey* my personal evaluation isReviewed and agree with the history, physical findings, diagnosis and managementplan with ANGEL Lindsey at 1925 at 0811 RPT #:[id number] OF REPORTPNProcedure [id number]:22:00G.[id number] for patient iqypYQFGBBEAODQNEG6714-87-19H01:26:19 HCACL 2023-09-10 13:13:00 [id number]/GINC/jC8gtH3zC0MagH/G KlGYQxnMDl2C1o5ZbsX HQSAsW3E6suQ1sywS9446-74-14G83:13:00 [facility] ([facility])Endocrinology Progress NoteREPORT#:[id number] REPORT STATUS: SignedREPORT INITIALIZATION DATE:09/10/23 TIME: 1313 PATIENT: MISSY CANALES UNIT #: [id number]#: [id number] [address] [birth year] AGE: 68 SEX: M ATTEND: Raphael Ly MDADM AUTHOR: Agus DuckworthPREPT SERVICE DT/TIME: 09/10/23 1145* ALL edits or amendments must be made on the electronic/computer document * SubjectiveChief complaint:f/u DM IItolerating dietawaiting SNF placement Objective GeneralVS:Last Documented: Result Date Time Pulse Ox 99 09/09 1130 B/P 108/71 09/09 1130 B/P Mean 82.9 09/09 1130 Temp 98.4 09/09 1130 Pulse 89 09/09 1130 Resp 18 09/09 1130 O2 Delivery Room air 09/09 0718 O2 Flow Rate 2 08/27 1022 FiO2 40 08/07 0752 PATIENT WEIGHT: Weight (lb): 177Weight (oz): 14.61Weight (kg): 80.286 Medications:Active Meds + DC'd Last 24 HrsAcetaminophen (TYLENOL) 650 MG Q4H PRN PRN RECTAL Insulin Human Lispro (HUMALOG) 4 UNIT AC SUBQ Magnesium Oxide (MAG-OX 400) 800 MG DAILY PO Potassium Chloride (K-CHAPITO 20 MEQ PACKET) 40 MEQ DAILY PO Metoprolol Tartrate (LOPRESSOR) 50 MG BID PO Collagenase (SANTYL 2GM TOPICAL) 1 APPLIC DAILY TOPICAL Zinc Oxide (ZINC OXIDE 30 GM OINTMENT) 1 APPLIC BID TOPICAL Amiodarone HCl (CORDARONE) 200 MG BID 9A 5P FEED-TUBE Apixaban (ELIQUIS 5MG TABLET) 5 MG BID 9A 5P PO Pantoprazole (PROTONIX) 40 MG BID AC PO Insulin Glargine (Semglee) 20 UNIT DAILY SUBQ Tamsulosin HCl (Flomax 0.4 mg) 0.4 MG PC BK PO Insulin Human Lispro (HUMALOG) 0 AC HS SUBQ Atorvastatin Calcium (LIPITOR) 40 MG BEDTIME PO Lactulose (LACTULOSE) 20 GM Q12HR PO Senna/Docusate Sodium (SENOKOT S) 1 TAB Q12HR PO Allopurinol (ZYLOPRIM) 300 MG DAILY PO Aspirin (ASPIRIN) 81 MG DAILY PO Acetaminophen (TYLENOL) 650 MG Q6H PRN PRN PO Bisacodyl (DULCOLAX) 10 MG DAILY PRN PRN RECTAL Polyethylene Glycol (MIRALAX) 17 GM Q12H PO Dextrose/Water (DEXTROSE 10% IN WATER) 125 ML ASDIR PRN IV (CKD) Dextrose/Water (DEXTROSE 10% IN WATER) 250 ML ASDIR PRN IV (CKD) Glucagon (GLUCAGON) 1 MG ASDIR PRN IM Sodium Chloride (SODIUM CHLORIDE 0.9%) 250 ML BOLUS PRN IV Latanoprost (XALATAN 2.5 ML OPHTH SOLN) 1 DROP BEDTIME EACH EYE Timolol Maleate (TIMOPTIC 0.5% 5 ML OPHTH SOLN) 1 DROP BID EACH EYE Brimonidine Tartrate (Alphagan-P 0.2% 5 ML OPHTH SOLN) 1 DROP Q8HR EACH EYE Hydralazine HCl (APRESOLINE) 10 MG Q6H PRN PRN IV Ondansetron HCl (ZOFRAN) 4 MG Q4H PRN PRN IV Dietitian nutrition assessmentThe data set between the solid lines has been imported from the dietitian's assessment. BMI Calculated: 27.7Nutrition related diagnosis: OverweightNutrition diagnosis details: BMI 25-29.9Nutrition problem: Increased nutrient needsNutrition etiology: Decreased mobilityNutrition signs and symptoms: ENTERAL NUTRITION TO MEET , ENERGY NEEDS , (DIET ADVANCED TO PUREED AND, TOLERATED.), Pressure injuryNutrition prescription: 1. RECOMMEND PUREED CCD5 DIET. 2. PROVIDE GLUCERNA TID WITH MEALS/SAMEER BID 3. MONITOR PO, WT, LABS, BM.Dietitian name: Rohan Sarah, DIETAssessment completed: 09/05/23 Physical ExamGeneral appearance: alert, awakeHEENT: atraumatic, clear cornea, normocephalicNeck: suppleCardiovascular: regular rate rhythmRespiratory: on oxygenAbdomen: softGenitourinary: not indicatedExtremities: warmNeuro/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: alertSkin: warmFindings/data:Laboratory Tests: 09/09 09/09 09/09 09/08 1129 0717 0548 1914Chemistry Sodium (134 - 147 mEq/L) 133 L Potassium (3.4 - 5.0 mEq/L) 4.3 Chloride (100 - 108 mEq/L) 103 Carbon Dioxide (21 - 33 mEq/l) 24 Anion Gap (0 - 20) 10 BUN (7 - 25 mg/dL) 16 Creatinine (0.6 - 1.3 mg/dL) 0.7 Glomerular Filtr Rate (70 - 80) 99.1 H Glucose (77 - 141 mg/dL) 149 H POC Glucose (70 - 110 MG/DL) 190 H 137 H 183 H Calcium (8.0 - 10.5 mg/dL) 8.1 Total Bilirubin (0.0 - 1.0 mg/dL) 0.50 AST (8 - 34 IUnit/L) 58 H ALT (10 - 49 IUnit/L) 48 Total Alk Phosphatase (20 - 125 IUnit/L) 137 H Total Protein (6.4 - 8.2 g/dL) 6.7 Albumin (3.4 - 5.0 g/dL) 1.70 LHematology WBC (4.5 - 11.0 x10 3/uL) 8.1 RBC (4.00 - 5.60 x10 6/uL) 2.83 L Hgb (12.5 - 16.9 g/dL) 8.5 L Hct (37.5 - 50.7 %) 26.6 L MCV (81.0 - 99.0 fL) 94.0 MCH (27.0 - 33.0 pg) 30.0 MCHC (33.0 - 37.0 g/dL) 32.0 L RDW (11.5 - 14.5 %) 15.4 H Plt Count (150 - 400 x10 3/uL) 271 MPV (7.0 - 9.0 fL) 9.8 H Neut % (Auto) (56.0 - 77.0 %) 45.6 L Lymph % (Auto) (14.0 - 32.0 %) 41.4 H Evans % (Auto) (4.8 - 9.0 %) 9.6 H Eos % (Auto) (0.3 - 3.7 %) 2.8 Baso % (Auto) (0.0 - 2.0 %) 0.4 Neut # (Auto) (2.0 - 7.6 x10 3/uL) 3.69 Lymph # (Auto) (1.0 - 3.8 x10 3/uL) 3.35 Evans # (Auto) (0.1 - 0.8 x10 3/uL) 0.78 Eos # (Auto) (0.0 - 0.2 x10 3/uL) 0.23 H Baso # (Auto) (0.0 - 0.2 x10 3/uL) 0.03 Abs Immat Gran (auto) (0.00 - 0.03 x10 3/uL) 0.02 Immature Gran % (0.0 - 2.0 %) 0.2 Nucleated RBC % (0 - 0 %) 0.0 Nucleated RBCs # (Man) (0.0 - 0.1 x10 3/uL) 0.00 09/08 1633 Chemistry POC Glucose (70 - 110 MG/DL) 184 H Laboratory Tests: 09/09 09/09 09/09 09/08 09/08 1129 0751 0592 1203 1633Chemistry Sodium (134 - 147 mEq/L) 133 L Potassium (3.4 - 5.0 mEq/L) 4.3 Chloride (100 - 108 mEq/L) 103 Carbon Dioxide (21 - 33 mEq/l) 24 Anion Gap (0 - 20) 10 BUN (7 - 25 mg/dL) 16 Creatinine (0.6 - 1.3 mg/dL) 0.7 Glomerular Filtr Rate (70 - 80) 99.1 H Glucose (77 - 141 mg/dL) 149 H POC Glucose (70 - 110 MG/DL) 190 H 137 H 183 H 184 H Calcium (8.0 - 10.5 mg/dL) 8.1 Total Bilirubin (0.0 - 1.0 mg/dL) 0.50 AST (8 - 34 IUnit/L) 58 H ALT (10 - 49 IUnit/L) 48 Total Alk Phosphatase (20 - 125 IUnit/L) 137 H Total Protein (6.4 - 8.2 g/dL) 6.7 Albumin (3.4 - 5.0 g/dL) 1.70 LHematology WBC (4.5 - 11.0 x10 3/uL) 8.1 RBC (4.00 - 5.60 x10 6/uL) 2.83 L Hgb (12.5 - 16.9 g/dL) 8.5 L Hct (37.5 - 50.7 %) 26.6 L MCV (81.0 - 99.0 fL) 94.0 MCH (27.0 - 33.0 pg) 30.0 MCHC (33.0 - 37.0 g/dL) 32.0 L RDW (11.5 - 14.5 %) 15.4 H Plt Count (150 - 400 x10 3/uL) 271 MPV (7.0 - 9.0 fL) 9.8 H Neut % (Auto) (56.0 - 77.0 %) 45.6 L Lymph % (Auto) (14.0 - 32.0 %) 41.4 H Evans % (Auto) (4.8 - 9.0 %) 9.6 H Eos % (Auto) (0.3 - 3.7 %) 2.8 Baso % (Auto) (0.0 - 2.0 %) 0.4 Neut # (Auto) (2.0 - 7.6 x10 3/uL) 3.69 Lymph # (Auto) (1.0 - 3.8 x10 3/uL) 3.35 Evans # (Auto) (0.1 - 0.8 x10 3/uL) 0.78 Eos # (Auto) (0.0 - 0.2 x10 3/uL) 0.23 H Baso # (Auto) (0.0 - 0.2 x10 3/uL) 0.03 Abs Immat Gran (auto) (0.00 - 0.03 0.02x10 3/uL) Immature Gran % (0.0 - 2.0 %) 0.2 Nucleated RBC % (0 - 0 %) 0.0 Nucleated RBCs # (Man) (0.0 - 0.1 0.00x10 3/uL) Diagnosis, Assessment PlanFree Text A P:1.DM OPZjxI9o 8.2adjust Lantus adjust Humalog monitor glucose diabetic diet DC Plan: Lantus, Humalog, follow at next available appointment. 2.Abnormal thyroid functions 08/06 TSH 0.07 FT4 1 recheck in a couple of days 3.Suspected ischemic strokeMRI brain without contrastEchocardiogramTelemetryneurology following 4.Coronary artery diseasePCI on July 03, 2023Echocardiogram preserved LVEFdual antiplateletscardiology following 5. Elevated LFTsGI following 6.MRCP with complex cystic fluid collectionpost drainage surgery following at 1226 at 1307 RPT #:[id number] OF REPORTPRProgress [id number]:13:00G.[id number] for patient yujjRFPPEADMFTJMCP0661-50-63V82:27:01 HCACL 2023-09-10 10:36:00 [id number]/4M3ZbjuEtU/m8U/2p0kcOI EgbbFAC66BN2JOSVKZS VT36ctiYolIYMxSg35914-23-92A72:36:00 [facility] ([facility])Hospitalist Progress NoteREPORT#:[id number] REPORT STATUS: SignedREPORT INITIALIZATION DATE:09/10/23 TIME: 1036 PATIENT: MISSY CANALES UNIT #: [id number]#: [id number] [address] [birth year] AGE: 68 SEX: M ATTEND: Raphael Ly MDADM AUTHOR: Clyde Lares DOREPT SERVICE DT/TIME: 09/10/23 1036* ALL edits or amendments must be made on the electronic/computer document * SubjectiveChief complaint:Patient is doing very well this morning with no acute complaint. Appetite is very good Objective GeneralVS/I O:Vital Signs: Date Time Temp Pulse Resp B/P B/P Pulse O2 O2 Flow FiO2 Mean Ox Delivery Rate 09/09 0718 98.6 50 17 96/58 71.0 95 Room air 09/09 0352 99.0 09/09 0346 99.9 85 18 109/63 78.4 98 Room air 09/08 2323 99.1 83 18 110/66 80.9 99 Room air 09/08 1916 99.3 84 18 104/59 73.9 99 Room air 09/08 1552 98.2 68 16 118/72 87 97 Room air 09/08 1057 98.4 73 17 111/66 80.8 97 Room air 24 hour I O ending at 0700: 09/09 0700 09/08 1900 Intake Total Output Total 50 Balance -50 Output, 50 Drainage PATIENT WEIGHT: Weight (lb): 177Weight (oz): 14.61Weight (kg): 80.286 Medications:Active Meds + DC'd Last 24 HrsAcetaminophen (TYLENOL) 650 MG Q4H PRN PRN RECTAL Insulin Human Lispro (HUMALOG) 4 UNIT AC SUBQ Magnesium Oxide (MAG-OX 400) 800 MG DAILY PO Potassium Chloride (K-CHAPITO 20 MEQ PACKET) 40 MEQ DAILY PO Metoprolol Tartrate (LOPRESSOR) 50 MG BID PO Collagenase (SANTYL 2GM TOPICAL) 1 APPLIC DAILY TOPICAL Zinc Oxide (ZINC OXIDE 30 GM OINTMENT) 1 APPLIC BID TOPICAL Amiodarone HCl (CORDARONE) 200 MG BID 9A 5P FEED-TUBE Apixaban (ELIQUIS 5MG TABLET) 5 MG BID 9A 5P PO Pantoprazole (PROTONIX) 40 MG BID AC PO Insulin Glargine (Semglee) 20 UNIT DAILY SUBQ Tamsulosin HCl (Flomax 0.4 mg) 0.4 MG PC BK PO Insulin Human Lispro (HUMALOG) 0 AC HS SUBQ Atorvastatin Calcium (LIPITOR) 40 MG BEDTIME PO Lactulose (LACTULOSE) 20 GM Q12HR PO Senna/Docusate Sodium (SENOKOT S) 1 TAB Q12HR PO Allopurinol (ZYLOPRIM) 300 MG DAILY PO Aspirin (ASPIRIN) 81 MG DAILY PO Acetaminophen (TYLENOL) 650 MG Q6H PRN PRN PO Bisacodyl (DULCOLAX) 10 MG DAILY PRN PRN RECTAL Polyethylene Glycol (MIRALAX) 17 GM Q12H PO Dextrose/Water (DEXTROSE 10% IN WATER) 125 ML ASDIR PRN IV (CKD) Dextrose/Water (DEXTROSE 10% IN WATER) 250 ML ASDIR PRN IV (CKD) Glucagon (GLUCAGON) 1 MG ASDIR PRN IM Sodium Chloride (SODIUM CHLORIDE 0.9%) 250 ML BOLUS PRN IV Latanoprost (XALATAN 2.5 ML OPHTH SOLN) 1 DROP BEDTIME EACH EYE Timolol Maleate (TIMOPTIC 0.5% 5 ML OPHTH SOLN) 1 DROP BID EACH EYE Brimonidine Tartrate (Alphagan-P 0.2% 5 ML OPHTH SOLN) 1 DROP Q8HR EACH EYE Hydralazine HCl (APRESOLINE) 10 MG Q6H PRN PRN IV Ondansetron HCl (ZOFRAN) 4 MG Q4H PRN PRN IV Physical ExamGeneral appearance: alert, awakeHead/Eyes: atraumatic, normocephalic, PERRLAENT: moist mucosal membranes, normal dentitionNeck: full range of motion, non-tender, no JVDCardiovascular: normal heart sounds, regular rate rhythmRespiratory: aerating well, symmetric expansion, no distressAbdomen: non-tender, normal bowel sounds, jtube present with minimal collection (liver abscess drains in place)Genitourinary: no bladder distention, no flank painExtremities: no clubbing, no cyanosisMusculoskeletal: no muscle spasmNeuro/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: abnormal speech, disoriented, alert ResultsFindings/Data:Laboratory Tests 09/09 09/09 09/08 09/08 09/08 0717 0548 1914 1633 1054 Chemistry Sodium (134 - 147 mEq/L) 133 L Potassium (3.4 - 5.0 mEq/L) 4.3 Chloride (100 - 108 mEq/L) 103 Carbon Dioxide (21 - 33 mEq/l) 24 Anion Gap (0 - 20) 10 BUN (7 - 25 mg/dL) 16 Creatinine (0.6 - 1.3 mg/dL) 0.7 Glomerular Filtr Rate (70 - 80) 99.1 H Glucose (77 - 141 mg/dL) 149 H POC Glucose (70 - 110 MG/DL) 137 H 183 H 184 H 149 H Calcium (8.0 - 10.5 mg/dL) 8.1 Total Bilirubin (0.0 - 1.0 mg/dL) 0.50 AST (8 - 34 IUnit/L) 58 H ALT (10 - 49 IUnit/L) 48 Total Alk Phosphatase (20 - 125 IUnit/L) 137 H Total Protein (6.4 - 8.2 g/dL) 6.7 Albumin (3.4 - 5.0 g/dL) 1.70 L Laboratory Tests 09/09 0548 Hematology WBC (4.5 - 11.0 x10 3/uL) 8.1 RBC (4.00 - 5.60 x10 6/uL) 2.83 L Hgb (12.5 - 16.9 g/dL) 8.5 L Hct (37.5 - 50.7 %) 26.6 L MCV (81.0 - 99.0 fL) 94.0 MCH (27.0 - 33.0 pg) 30.0 MCHC (33.0 - 37.0 g/dL) 32.0 L RDW (11.5 - 14.5 %) 15.4 H Plt Count (150 - 400 x10 3/uL) 271 MPV (7.0 - 9.0 fL) 9.8 H Neut % (Auto) (56.0 - 77.0 %) 45.6 L Lymph % (Auto) (14.0 - 32.0 %) 41.4 H Evans % (Auto) (4.8 - 9.0 %) 9.6 H Eos % (Auto) (0.3 - 3.7 %) 2.8 Baso % (Auto) (0.0 - 2.0 %) 0.4 Neut # (Auto) (2.0 - 7.6 x10 3/uL) 3.69 Lymph # (Auto) (1.0 - 3.8 x10 3/uL) 3.35 Evans # (Auto) (0.1 - 0.8 x10 3/uL) 0.78 Eos # (Auto) (0.0 - 0.2 x10 3/uL) 0.23 H Baso # (Auto) (0.0 - 0.2 x10 3/uL) 0.03 Abs Immat Gran (auto) (0.00 - 0.03 x10 3/uL) 0.02 Immature Gran % (0.0 - 2.0 %) 0.2 Nucleated RBC % (0 - 0 %) 0.0 Nucleated RBCs # (Man) (0.0 - 0.1 x10 3/uL) 0.00 Diagnosis, Assessment PlanProblem List/A P: 1. Acute cholangitis 2. Elevated LFTs 3. Liver abscess 4. Failure to thrive Free Text DxA P NotesFree text DxA P notes:68-year-old male admitted with abdominal pain, noted with NSTEMI, s/p stent placement to diagonal artery on 07/02/23. Still need staged PCI to RCA. Patient was noted with a liver abscess, seen by general surgery and GI, drain was placedby IR, has been tolerating antibiotics well. Patient was noted with some anemia, EGD was unremarkable but for gastric ulcers with no active bleeding.* Appreciated input from general surgery, GI, cardiology, and ID* Continue on PPI* Appreciated morning labs* 1 liver drain was removed on Sunday, 1 is left* Encourage oral intake and therapy* is at the bedside and all concerns addressed* is working with test case developer to arrange for home health* See my DC summary from 08/22 for details at 1039 RPT #:[id number] OF REPORTPRProgress [id number]:00G.[id number] for patient [id number]:40:25 [facility]ACL 2023-09-10 07:40:00 [id number]/wvA ZkbnDSCk8ZBumF3T/0M Fw4ERcQYP+i8JDuCm3487-38-15X78:40:00 [facility] ([facility])Cardiology Progress NoteREPORT#:[id number] REPORT STATUS: SignedREPORT INITIALIZATION DATE:09/10/23 TIME: 739 PATIENT: MISSY CANALES UNIT #: [id number]#: [id number] [address] AGE: 68 SEX: M ATTEND: Raphael Ly MDADM AUTHOR: Esther Buckner AGACNPREPT SERVICE DT/TIME: 09/10/2340* ALL edits or amendments must be made on the electronic/computer document * SubjectiveNursing reports:No: complaints. Objective GeneralVS/I O:24 hour I O ending at 0700: 09/09 0700 09/08 1900 Intake Total Output Total 50 Balance -50 Output, 50 Drainage Vital Signs: Date Time Temp Pulse Resp B/P B/P Pulse O2 O2 Flow FiO2 Mean Ox Delivery Rate 09/09 717 37.0 50 17 96/58 71.0 95 Room air 09/09 0352 37.2 09/09 0346 37.7 85 18 109/63 78.4 98 Room air 09/08 2323 37.3 83 18 110/66 80.9 99 Room air 09/08 1916 37.4 84 18 104/59 73.9 99 Room air 09/08 1552 36.8 68 16 118/72 87 97 Room air 09/08 1057 36.9 73 17 111/66 80.8 97 Room air PATIENT WEIGHT: Weight (lb): 177Weight (oz): 14.61Weight (kg): 80.286 Medications:Active Meds + DC'd Last 24 HrsAcetaminophen (TYLENOL) 650 MG Q4H PRN PRN RECTAL Insulin Human Lispro (HUMALOG) 4 UNIT AC SUBQ Insulin Human Lispro (HUMALOG) 3 UNIT AC SUBQ (DC) Magnesium Oxide (MAG-OX 400) 800 MG DAILY PO Potassium Chloride (K-CHAPITO 20 MEQ PACKET) 40 MEQ DAILY PO Metoprolol Tartrate (LOPRESSOR) 50 MG BID PO Collagenase (SANTYL 2GM TOPICAL) 1 APPLIC DAILY TOPICAL Zinc Oxide (ZINC OXIDE 30 GM OINTMENT) 1 APPLIC BID TOPICAL Amiodarone HCl (CORDARONE) 200 MG BID 9A 5P FEED-TUBE Apixaban (ELIQUIS 5MG TABLET) 5 MG BID 9A 5P PO Pantoprazole (PROTONIX) 40 MG BID AC PO Insulin Glargine (Semglee) 20 UNIT DAILY SUBQ Tamsulosin HCl (Flomax 0.4 mg) 0.4 MG PC BK PO Insulin Human Lispro (HUMALOG) 0 AC HS SUBQ Atorvastatin Calcium (LIPITOR) 40 MG BEDTIME PO Lactulose (LACTULOSE) 20 GM Q12HR PO Senna/Docusate Sodium (SENOKOT S) 1 TAB Q12HR PO Allopurinol (ZYLOPRIM) 300 MG DAILY PO Aspirin (ASPIRIN) 81 MG DAILY PO Acetaminophen (TYLENOL) 650 MG Q6H PRN PRN PO Bisacodyl (DULCOLAX) 10 MG DAILY PRN PRN RECTAL Polyethylene Glycol (MIRALAX) 17 GM Q12H PO Dextrose/Water (DEXTROSE 10% IN WATER) 125 ML ASDIR PRN IV (CKD) Dextrose/Water (DEXTROSE 10% IN WATER) 250 ML ASDIR PRN IV (CKD) Glucagon (GLUCAGON) 1 MG ASDIR PRN IM Sodium Chloride (SODIUM CHLORIDE 0.9%) 250 ML BOLUS PRN IV Latanoprost (XALATAN 2.5 ML OPHTH SOLN) 1 DROP BEDTIME EACH EYE Timolol Maleate (TIMOPTIC 0.5% 5 ML OPHTH SOLN) 1 DROP BID EACH EYE Brimonidine Tartrate (Alphagan-P 0.2% 5 ML OPHTH SOLN) 1 DROP Q8HR EACH EYE Hydralazine HCl (APRESOLINE) 10 MG Q6H PRN PRN IV Ondansetron HCl (ZOFRAN) 4 MG Q4H PRN PRN IV Physical ExamGeneral appearance: alert, awake, no acute distress, pleasantNeck: non-tenderCardiovascular: CV assessment: regular rate and rhythmRespiratory: decreased breath sounds, no distressAbdomen: softGenitourinary: no urinary catheterUpper extremity: UE assessment: normal capillary refill, normal temperatureLower extremity: LE assessment: no edemaMusculoskeletal: decreased ROMNeuro/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: right hemiparesis, alertSkin: dryPsychiatry: normal affect, normal mood ResultsFindings/Data:Laboratory Tests 09/09 09/09 09/08 09/08 09/08 0717 0548 1914 1633 1054 Chemistry Sodium (134 - 147 mEq/L) 133 L Potassium (3.4 - 5.0 mEq/L) 4.3 Chloride (100 - 108 mEq/L) 103 Carbon Dioxide (21 - 33 mEq/l) 24 Anion Gap (0 - 20) 10 BUN (7 - 25 mg/dL) 16 Creatinine (0.6 - 1.3 mg/dL) 0.7 Glomerular Filtr Rate (70 - 80) 99.1 H Glucose (77 - 141 mg/dL) 149 H POC Glucose (70 - 110 MG/DL) 137 H 183 H 184 H 149 H Calcium (8.0 - 10.5 mg/dL) 8.1 Total Bilirubin (0.0 - 1.0 mg/dL) 0.50 AST (8 - 34 IUnit/L) 58 H ALT (10 - 49 IUnit/L) 48 Total Alk Phosphatase (20 - 125 IUnit/L) 137 H Total Protein (6.4 - 8.2 g/dL) 6.7 Albumin (3.4 - 5.0 g/dL) 1.70 L Laboratory Tests 09/09 0548 Hematology WBC (4.5 - 11.0 x10 3/uL) 8.1 RBC (4.00 - 5.60 x10 6/uL) 2.83 L Hgb (12.5 - 16.9 g/dL) 8.5 L Hct (37.5 - 50.7 %) 26.6 L MCV (81.0 - 99.0 fL) 94.0 MCH (27.0 - 33.0 pg) 30.0 MCHC (33.0 - 37.0 g/dL) 32.0 L RDW (11.5 - 14.5 %) 15.4 H Plt Count (150 - 400 x10 3/uL) 271 MPV (7.0 - 9.0 fL) 9.8 H Neut % (Auto) (56.0 - 77.0 %) 45.6 L Lymph % (Auto) (14.0 - 32.0 %) 41.4 H Evans % (Auto) (4.8 - 9.0 %) 9.6 H Eos % (Auto) (0.3 - 3.7 %) 2.8 Baso % (Auto) (0.0 - 2.0 %) 0.4 Neut # (Auto) (2.0 - 7.6 x10 3/uL) 3.69 Lymph # (Auto) (1.0 - 3.8 x10 3/uL) 3.35 Evans # (Auto) (0.1 - 0.8 x10 3/uL) 0.78 Eos # (Auto) (0.0 - 0.2 x10 3/uL) 0.23 H Baso # (Auto) (0.0 - 0.2 x10 3/uL) 0.03 Abs Immat Gran (auto) (0.00 - 0.03 x10 3/uL) 0.02 Immature Gran % (0.0 - 2.0 %) 0.2 Nucleated RBC % (0 - 0 %) 0.0 Nucleated RBCs # (Man) (0.0 - 0.1 x10 3/uL) 0.00 Results: labs reviewed, vital signs reviewed Diagnosis, Assessment PlanPlan discussed with: patient, daughter, collaborating MD, nurse Free Text DxA P NotesFree Text DxA P Notes:1. Coronary artery disease s/p recent PCI/TERESA to diagonal artery* Troponin trend is flat* Hx of CABG (2000)* s/p stent placement to diagonal artery on 07/02/23. Still need staged PCI to RCA. * Echocardiogram preserved LVEF.* PPI: lansoprazole 30 mg BID* Plavix dc'd (08/30/23), switched to Eliquis (afib) and ASA 2. Elevated LFTs/acute cholecystitis/liver abscess* s/p cholecystostomy tube placement. * ID on board managing antibiotic* GI on board* s/p EGD: nonbleeding ulcer 3. AMS: MRI brain showed small subacute ischemia in the L coronary radiata * MRI of the brain unchanged 4. Tachycardia with PVCs and PACs/Paroxysmal atrial fibrillation* [id number]-PITm score 6, recommend AC * HASBLED 4* continue Eliquis 5 mg BID plus ASA 81 mg daily. * continue amiodarone 200 mg BID* BP soft, decreased continue metoprolol tartrate to 25 mg BID 5. Anemia* hgb 6.3 up to 8.9->8.6->6.9->7->8.7->8.6->8.3->8.8->8.6* s/p 2 units PRBCs 08/20/23, 1 unit PRBC 08/26/23* On PPI* s/p EGD showed nonbleeding ulcer 6. Hypokalemia/hypomagnesemia* continue KCL 40 mg daily* continue Mag oxide 800 mg daily* encourage oral intake SNF denied, DC home with HH.Able CV status.Outpatient follow-up with Dr. Hennessy. Medical decision making by Dr. Daniel. at 1523 RPT #:[id number] OF REPORTPRProgress [id number]:40:00G.[id number] for patient vclgMLNOGJNVXNHZQQ6265-23-34C53:23:24 [facility] 2023-09-09 11:41:00 [id number]/ 7ygZNOUB8FxuNLVkR4v KF8qA1qeCp9QAimRY6849-75-84O46:41:00 [facility] Progress NoteREPORT#:[id number] REPORT STATUS: SignedREPORT INITIALIZATION DATE:09/09/23 TIME: 1141 PATIENT: MISSY CANALES UNIT #: [id number]#: [id number] [address] AGE: 68 SEX: M ATTEND: Raphael Ly MDADM AUTHOR: Juan Ramon Carrasquillo MDREPT SERVICE DT/TIME: 09/09/23 1141* ALL edits or amendments must be made on the electronic/computer document * SubjectiveChief complaint:f/u DM IItolerating dietawaiting SNF placement Objective GeneralVS:Last Documented: Result Date Time Pulse Ox 97 09/08 1057 B/P 111/66 09/08 1057 B/P Mean 80.8 09/08 1057 O2 Delivery Room air 09/08 1057 Temp 36.9 09/08 1057 Pulse 73 09/08 1057 Resp 17 09/08 1057 O2 Flow Rate 2 08/27 1022 FiO2 40 08/07 0752 PATIENT WEIGHT: Weight (lb): 177Weight (oz): 14.61Weight (kg): 80.286 Medications:Active Meds + DC'd Last 24 HrsInsulin Human Lispro (HUMALOG) 4 UNIT AC SUBQ Insulin Human Lispro (HUMALOG) 3 UNIT AC SUBQ (DC) Magnesium Oxide (MAG-OX 400) 800 MG DAILY PO Potassium Chloride (K-CHAPITO 20 MEQ PACKET) 40 MEQ DAILY PO Metoprolol Tartrate (LOPRESSOR) 50 MG BID PO Collagenase (SANTYL 2GM TOPICAL) 1 APPLIC DAILY TOPICAL Zinc Oxide (ZINC OXIDE 30 GM OINTMENT) 1 APPLIC BID TOPICAL Amiodarone HCl (CORDARONE) 200 MG BID 9A 5P FEED-TUBE Apixaban (ELIQUIS 5MG TABLET) 5 MG BID 9A 5P PO Pantoprazole (PROTONIX) 40 MG BID AC PO Insulin Glargine (Semglee) 20 UNIT DAILY SUBQ Tamsulosin HCl (Flomax 0.4 mg) 0.4 MG PC BK PO Insulin Human Lispro (HUMALOG) 0 AC HS SUBQ Atorvastatin Calcium (LIPITOR) 40 MG BEDTIME PO Lactulose (LACTULOSE) 20 GM Q12HR PO Senna/Docusate Sodium (SENOKOT S) 1 TAB Q12HR PO Allopurinol (ZYLOPRIM) 300 MG DAILY PO Aspirin (ASPIRIN) 81 MG DAILY PO Acetaminophen (TYLENOL) 650 MG Q6H PRN PRN PO Bisacodyl (DULCOLAX) 10 MG DAILY PRN PRN RECTAL Polyethylene Glycol (MIRALAX) 17 GM Q12H PO Dextrose/Water (DEXTROSE 10% IN WATER) 125 ML ASDIR PRN IV (CKD) Dextrose/Water (DEXTROSE 10% IN WATER) 250 ML ASDIR PRN IV (CKD) Glucagon (GLUCAGON) 1 MG ASDIR PRN IM Sodium Chloride (SODIUM CHLORIDE 0.9%) 250 ML BOLUS PRN IV Latanoprost (XALATAN 2.5 ML OPHTH SOLN) 1 DROP BEDTIME EACH EYE Timolol Maleate (TIMOPTIC 0.5% 5 ML OPHTH SOLN) 1 DROP BID EACH EYE Brimonidine Tartrate (Alphagan-P 0.2% 5 ML OPHTH SOLN) 1 DROP Q8HR EACH EYE Hydralazine HCl (APRESOLINE) 10 MG Q6H PRN PRN IV Ondansetron HCl (ZOFRAN) 4 MG Q4H PRN PRN IV Physical ExamGeneral appearance: sleeping comfortablyHEENT: atraumatic, clear cornea, normocephalicFindings/data:Laboratory Tests: 09/08 09/07 09/07 09/07 0701 2009 1755 1222 Chemistry POC Glucose (70 - 110 MG/DL) 128 H 227 H 240 H 199 H Diagnosis, Assessment PlanFree Text A P:1.DM VHTzpV5s 8.2adjust Lantus adjust Humalog monitor glucose diabetic diet DC Plan: Lantus, Humalog, follow at next available appointment. 2.Abnormal thyroid functions 08/06 TSH 0.07 FT4 1 recheck in a couple of days 3.Suspected ischemic strokeMRI brain without contrastEchocardiogramTelemetryneurology following 4.Coronary artery diseasePCI on July 03, 2023Echocardiogram preserved LVEFdual antiplateletscardiology following 5. Elevated LFTsGI following 6.MRCP with complex cystic fluid collectionpost drainage surgery following at 1141 RPT #:[id number] OF REPORTPRProgress lzvm2481-04-71H80:41:00G.[id number] for patient plgeYHYDSIFZAKHAVT9831-54-66E45:42:08 [facility] 2023-09-09 10:18:00 [id number]/f3sSWVq8S50sNaPWeSOh7VI HAcV0Bn0MCZQlSR9nge 2A+6BICNhoiRtnx7m4039-65-96G25:18:00 [facility] ([facility])Hospitalist Progress NoteREPORT#:[id number] REPORT STATUS: SignedREPORT INITIALIZATION DATE:09/09/23 TIME: 1018 PATIENT: MISSY CANALES UNIT #: [id number]#: [id number] [address] [birth year] AGE: 68 SEX: M ATTEND: Raphael Ly AUTHOR: Ty Ontiveros MDREPT SERVICE DT/TIME: 09/09/23 1018* ALL edits or amendments must be made on the electronic/computer document * SubjectiveChief complaint:Patient is resting comfortably in bed this morning in no acute distress Review of SystemsAll systems rev neg: except as noted Objective GeneralVS/I O:Vital Signs: Date Time Temp Pulse Resp B/P B/P Pulse O2 O2 Flow FiO2 Mean Ox Delivery Rate 09/08 0703 98.4 81 17 105/64 77.7 100 Room air 09/08 0353 100.4 84 16 100/59 72.2 99 Room air 09/07 2313 100.8 82 16 91/56 68.1 98 Room air 09/07 2009 100.8 94 16 114/68 83.4 100 Room air 09/07 1612 98.2 66 16 128/68 88 99 Room air 09/07 1142 97.9 62 17 124/66 85 99 Room air 24 hour I O ending at 0700: 09/08 0700 09/07 1900 Intake Total Output Total 2100 50 Balance -2100 -50 Number 2 Bowel Movements Output, 50 Drainage Output, Urine 2100 PATIENT WEIGHT: Weight (lb): 177Weight (oz): 14.61Weight (kg): 80.286 Physical ExamHead/Eyes: atraumatic, normocephalic, PERRLAENT: moist mucosal membranes, normal dentitionNeck: full range of motion, non-tender, no JVDCardiovascular: normal heart sounds, regular rate rhythmRespiratory: aerating well, symmetric expansion, no distressAbdomen: non-tender, normal bowel sounds, jtube present with minimal collection (liver abscess drains in place)Genitourinary: no bladder distention, no flank painExtremities: no clubbing, no cyanosisMusculoskeletal: no muscle spasmNeuro/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: abnormal speech, disoriented, alert ResultsFindings/Data:Laboratory Tests 09/08 09/07 09/07 09/07 0701 2009 1755 1222 Chemistry POC Glucose (70 - 110 MG/DL) 128 H 227 H 240 H 199 H Results: labs reviewed, vital signs reviewed Treatment Prophylaxis Treatment ProphylaxisOxygen: room air Diagnosis, Assessment PlanProblem List/A P: 1. Acute cholangitis 2. Elevated LFTs 3. Liver abscess 4. Failure to thrive Free Text DxA P NotesFree text DxA P notes:68-year-old male admitted with abdominal pain, noted with NSTEMI, s/p stent placement to diagonal artery on 07/02/23. Still need staged PCI to RCA. Patient was noted with a liver abscess, seen by general surgery and GI, drain was placedby IR, has been tolerating antibiotics well. Patient was noted with some anemia, EGD was unremarkable but for gastric ulcers with no active bleeding.* Appreciated input from general surgery, GI, cardiology, and ID* Continue on PPI* Awaiting removal of one of the liver drains which is empty, will possibly for an injury which is still draining* Encourage oral intake and therapy* is at the bedside and all concerns addressed* is considering taking patient home with home health* See my DC summary from 08/22 for details* The patient requires the positioning of the body in a way not feasible in an ordinary bed, in order to alleviate his pain, patient will need a hospital bed which can elevate his body to a 30 degree angle Quality: Gen Med Crit Care Advanced Care Plan 65 or OlderDiscussed with: patient, surrogate decis. maker at 1018 RPT #:[id number] OF REPORTPRProgress [id number]:18:00G.[id number] for patient atllSYNZFXSFBGYIAF5738-79-35Y69:19:07 [facility] 2023-09-08 12:45:00 [id number] OK0qcEDpKpt3Waz41g5 9a6s1sn5iBYZXDjvj4134-29-94W58:45:00 [facility] CenterHospital[facility] Progress NoteREPORT#:[id number] REPORT STATUS: SignedREPORT INITIALIZATION DATE:09/08/23 TIME: 124 PATIENT: MISSY CANALES UNIT #: [id number]#: [id number] [address] [birth year] AGE: 68 SEX: M ATTEND: Raphael Ly AUTHOR: Ty Ontiveros MDREPT SERVICE DT/TIME: 09/08/23 1245* ALL edits or amendments must be made on the electronic/computer document * SubjectiveChief complaint:Patient is resting comfortably in bed this morning in no acute distress Review of SystemsAll systems rev neg: except as noted Objective GeneralVS/I O:Vital Signs: Date Time Temp Pulse Resp B/P B/P Pulse O2 O2 Flow FiO2 Mean Ox Delivery Rate 09/07 1142 97.9 62 17 124/66 85 99 Room air 09/07 0727 98.2 58 15 122/64 83.4 99 Room air 09/07 0331 99.3 88 16 108/64 78.7 98 Room air 09/07 0020 100.4 80 17 112/71 84.6 99 Room air 09/06 1848 100.8 110 16 111/67 81.9 99 Room air 09/06 1628 99.1 107 18 109/73 84.7 100 24 hour I O ending at 0700: 09/07 0700 09/06 1900 Intake Total Output Total 150 Balance -150 Number 1 Bowel Movements Output, 150 Drainage PATIENT WEIGHT: Weight (lb): 177Weight (oz): 14.61Weight (kg): 80.286 Physical ExamHead/Eyes: atraumatic, normocephalic, PERRLAENT: moist mucosal membranes, normal dentitionNeck: full range of motion, non-tender, no JVDCardiovascular: normal heart sounds, regular rate rhythmRespiratory: aerating well, symmetric expansion, no distressAbdomen: non-tender, normal bowel sounds, jtube present with minimal collection (liver abscess drains in place)Genitourinary: no bladder distention, no flank painExtremities: no clubbing, no cyanosisMusculoskeletal: no muscle spasmNeuro/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: abnormal speech, disoriented, alert ResultsFindings/Data:Laboratory Tests 09/07 09/07 09/06 09/06 1222 0726 1847 1626 Chemistry POC Glucose (70 - 110 MG/DL) 199 H 112 H 195 H 232 H Results: labs reviewed, vital signs reviewed Treatment Prophylaxis Treatment ProphylaxisOxygen: room air Diagnosis, Assessment PlanProblem List/A P: 1. Acute cholangitis 2. Elevated LFTs 3. Liver abscess 4. Failure to thrive Free Text DxA P NotesFree text DxA P notes:68-year-old male admitted with abdominal pain, noted with NSTEMI, s/p stent placement to diagonal artery on 07/02/23. Still need staged PCI to RCA. Patient was noted with a liver abscess, seen by general surgery and GI, drain was placedby IR, has been tolerating antibiotics well. Patient was noted with some anemia, EGD was unremarkable but for gastric ulcers with no active bleeding.* Appreciated input from general surgery, GI, cardiology, and ID* Continue on PPI* Awaiting removal of one of the liver drains which is empty, will possibly for an injury which is still draining* Encourage oral intake and therapy* is at the bedside and all concerns addressed* is considering taking patient home with home health* See my DC summary from 08/22 for details* The patient requires the positioning of the body in a way not feasible in an ordinary bed, in order to alleviate his pain, patient will need a hospital bed which can elevate his body to a 30 degree angle Quality: Gen Med Crit Care Advanced Care Plan 65 or OlderDiscussed with: patient, surrogate decis. maker at 1247 RPT #:[id number] OF REPORTPRProgress [id number]:45:00G.[id number] for patient cgixBSEIPDVEJHMYFL1900-64-69W70:47:37 [facility] 2023-09-07 15:56:00 [id number]+ACiyo753I8LAhzn hBnPdpSP7KhFFyzqxgz YGByL/36HGqKJUu6B0079-99-80W14:56:00 [facility] ([facility])Infectious Dis. Progress NoteREPORT#:[id number] REPORT STATUS: SignedREPORT INITIALIZATION DATE:09/07/23 TIME: 1555 PATIENT: MISSY CANALES UNIT #: [id number]#: [id number] [facility]: [birth year] AGE: 68 SEX: M ATTEND: Raphael Ly MDA AUTHOR: Kajal Nguyen MDREPT SERVICE DT/TIME: 09/07/23 155* ALL edits or amendments must be made on the electronic/computer document * SubjectiveChief complaint:Follow-up on bacteremia, hepatic abscess, cholecystitis, aspiration pneumoniaHPI:Review of systems is somewhat limited due to patient's limited responses. Nonetheless, he appears comfortable. present at bedside. No major overnight events. Objective Physical ExamWound/incision: Location:cholecystostomy tube and RUQ drain in placeHead/Eyes: atraumatic, normocephalicENT: moist mucosal membranesNeck: no JVDCardiovascular: regular rate rhythm, no murmurRespiratory: clear to auscultation, symmetric expansionAbdomen: non-tender, soft, no distention, percutaneous drains in place in RUQExtremities: no cyanosis, no edemaNeuro/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 Canales is a 68-year-old male with PMH of HTN, DMII, CAD s/p stent who came to [facility] initially with N/V and abdominal pain. His pain was started 2 days prior to admission. His work up showed elevated LFTs, bilirubin, troponin. His US abdomen showed cholelithiasis with distended gallbladder including material at the gallbladder neck concerning for impacted stone. Patient started on empiric antibiotics and had cultures done with blood culture showing gram negative bacilli. Patient has been febrile and tachycardic while here. GI and general surgery are consulted. Patient was found to have acute cholecystitis with a liver abscess. He had a drain in the gallbladder and in the abscess placed. Blood culture eventually grew Citrobacter and so did the abscess. *Fever--Recurrent after improvement--UA via straight cath (-)--Covid (-)--Flu (-)--F/U CT A/P, decreased liver absces; (+) LLL infiltrates c/w PNA*PNA--CT LLL infiltrates c/w aspiration*Bacteremia--Citrobacter--Source: Biliary*Liver abscess--MRCP showed 4.6 x 3.6 x 3.0 thick walled cystic lesion/fluid collection liver abutting GB fossa--S/P IR drain 08/05, cx CitrobacterCt scan of the abdomen showed no residuasl abscesson 08/29/23*Acute cholecystitis--S/P IR placed cholecystotomy tube 3., cx Citrobacter*Acute stroke--MRI (+) subacute Left guo radiata--CTA neck (+) high grade stenosis*ARELY*DM2*HTN*CADFever: on 08/30/23 : blood cx drawn yesterday., ua and cx ordered not done Plan: -Patient has had > 7 days of piperacillin-tazobactam to cover for aspiration pneumonia.-Antibiotic treatment transitioned back to ceftriaxone and metronidazole on 08/22/2023 for coverage of liver abscess. dc iv abx if the urine cx and blood cx done on 08/30/[address] showed resolved liver abscess dced abx current antimicrobilas: noneok to dc home at 0752 RPT #:[id number] OF REPORTPRProgress eqbv1361-42-52B22:56:00G.[id number] for patient smbaGLMPPCAWUHVEJT3325-38-19C87:53:11 [facility] 2023-09-07 15:34:00 [id number] KosdCcClcNGtGkYz1Wn fB0cCPQFtgj2FMrUX2625-43-96Q37:34:00 [facility] ([facility])Gastroenterology Progress NoteREPORT#:[id number] REPORT STATUS: SignedREPORT INITIALIZATION DATE:09/07/23 TIME: 1533 PATIENT: MISSY CANALES UNIT #: [id number]#: [id number] [address] [birth year] AGE: 68 SEX: M ATTEND: Raphael Ly AUTHOR: Lisa Cancino MDREPT SERVICE DT/TIME: 09/07/231533* ALL edits or amendments must be made on the electronic/computer document * SubjectiveChief complaint:Elevated LFtsHPI:68 year old man s/p cardiac stents 2 weeks ago who was sent to the hospital withelevated LFTs and possible acute cholecystitis. Pt had a stenet recently placed and was started on DAPT. Pt had labs showing elevated LFTs and was sent here forevaluation. Labs showed leukocytosis 15k. Elevated Tbili 3.7. Dbili 2.8. AST 79,ALT 105 and ALP 225. RUQ U/S showed possible cholecystitis and normal CBD of 4 mm in diatmeter. Pt denies pain. No dark urine or peyton-color stool 08/03; patient feels well. MRCP reviewed. No choledocholithiasis. Fluid collection at the liver could be related secondary to gallbladder perforation. LFTs and white count are down. 08/04: Plan for IR for cholecystostomy tube placement. LFts stable. WBC elevated.Was confused this am but improving. NO pain. No fevers. Added flagyl to his Abx regimen 08/05: NO new complaints. IR for abscess drain and cholecystostomy tube 08/06: Transferred overnight to ICU due to AMS. S/P IR with cholecystostomy tube and abscess drain 08/07: severely constipated. NGT in with feeds. drains in. More awake today and oriented. right sided weakness likely acute stroke. MRI brain reviewed- small stroke. KUB reviewed 08/08: Doing better according to . Sheldon removed. Still on feeds 08/09: Feeds at 20 ml/hr. Still no BM 08/10-Had BM last night. Denies n/v/abd pain 08/11-Patient dislodged DH. DH was replaced. +BM today 08/12: has been having BM during the weekend 08/13: No new events 08/14: eating and moving bowels. 08/15: doing well. 08/26: I was called again to evaluate pt. He has melena-like stool and dropped hisH/H. Pt is on DAPT 08/27: S/P EGD showing gastric ulcer in the incisura. flat pigmentation without high rebleeding stigmata. 08/28: H/H stable. Family at bedside. NO melena 08/29: Stbale H/H. NO family at bediside this am 08/30: Stable H/H. 08/31-No GI complaints, family at bedside. HGB 8.3 09/01-HGB 8.8. Last BM today 09/02: Stable H/H. 09/03: H/H stable. Liver drain is no longer draining. cholecystostomy tube draining 09/04:Plan to remove liver drain. H/H stable. No melena 09/05: No complaints. eating getting stronger 09/06: No new labs. gettig better Objective Physical ExamHEENT: EOMICardiovascular: normal heart soundsRespiratory: clear to auscultationAbdomen: non-tenderExtremities: no edemaSkin: dry, normal temperature Diagnosis, Assessment PlanProblem List/A P: 1. Elevated LFTs Free Text A P:cholestatic pattern. CBD normal on RuQ U/S MRCP showed no evidence of choledocholithiasis.Large fluid collection within the liver could be secondary to gallbladder perforation.Recommend surgical evaluation again.Continue with antibiotics. Add flagyl s/p cholecystostomy tube and drainage of cystic fluid collection. Awaiting culture EGD showed gastric ulcer with flat pigmentPPI PO BID Will need repeat EGD in 6 weeks to confirm healing and rule out malignancyConsider removing hepatic drainWill sign off at 1534 RPT #:[id number] OF REPORTPRProgress rjbt2962-98-28K71:34:00G.[id number] for patient jdzeDIPZEDTAAYANZY3624-00-73P93:35:05 [facility] 2023-09-07 12:57:00 [id number]+eqrHgR5+FrHCJ+GA JorRV+j7vb2yjbzjY4E yoOUsIXCbEtWpy45Q5317-27-99Q30:57:00 [facility] ([facility])Wound Care Progress NoteREPORT#:[id number] REPORT STATUS: SignedREPORT INITIALIZATION DATE:09/07/23 TIME: 1256 PATIENT: MISSY CANALES UNIT #: [id number]#: [id number] [address] [birth year] AGE: 68 SEX: M ATTEND: Raphael Ly MDADM AUTHOR: Lilly Riggins APRNNPREPT SERVICE DT/TIME: 09/07/23 1257* ALL edits or amendments must be made on the electronic/computer document * Lilly Riggins 09/07/23 1257:SubjectiveChief complaint:both heels and sacralHPI:68-year-old male being seen for follow-up of all his wounds. is at bedside. Objective GeneralVS:Last Documented: Result Date Time Pulse Ox 98 09/06 1143 B/P 104/68 09/06 1143 B/P Mean 79.9 09/06 1143 Temp 37.0 09/06 1143 Pulse 97 09/06 1143 Resp 18 09/06 1143 O2 Delivery Room air 09/06 0501 O2 Flow Rate 2 08/27 1022 FiO2 40 08/07 0752 PATIENT WEIGHT: Weight (lb): 177Weight (oz): 14.61Weight (kg): 80.286 Medications:Active Meds + DC'd Last 24 HrsInsulin Human Lispro (HUMALOG) 3 UNIT AC SUBQ (UNV) Magnesium Oxide (MAG-OX 400) 800 MG DAILY PO Insulin Human Lispro (HUMALOG) 2 UNIT AC SUBQ (DCr) Potassium Chloride (K-CHAPITO 20 MEQ PACKET) 40 MEQ DAILY PO Metoprolol Tartrate (LOPRESSOR) 50 MG BID PO Collagenase (SANTYL 2GM TOPICAL) 1 APPLIC DAILY TOPICAL Zinc Oxide (ZINC OXIDE 30 GM OINTMENT) 1 APPLIC BID TOPICAL Amiodarone HCl (CORDARONE) 200 MG BID 9A 5P FEED-TUBE Apixaban (ELIQUIS 5MG TABLET) 5 MG BID 9A 5P PO Pantoprazole (PROTONIX) 40 MG BID AC PO Insulin Glargine (Semglee) 20 UNIT DAILY SUBQ Tamsulosin HCl (Flomax 0.4 mg) 0.4 MG PC BK PO Insulin Human Lispro (HUMALOG) 0 AC HS SUBQ Atorvastatin Calcium (LIPITOR) 40 MG BEDTIME PO Lactulose (LACTULOSE) 20 GM Q12HR PO Senna/Docusate Sodium (SENOKOT S) 1 TAB Q12HR PO Allopurinol (ZYLOPRIM) 300 MG DAILY PO Aspirin (ASPIRIN) 81 MG DAILY PO Acetaminophen (TYLENOL) 650 MG Q6H PRN PRN PO Bisacodyl (DULCOLAX) 10 MG DAILY PRN PRN RECTAL Polyethylene Glycol (MIRALAX) 17 GM Q12H PO Dextrose/Water (DEXTROSE 10% IN WATER) 125 ML ASDIR PRN IV (CKD) Dextrose/Water (DEXTROSE 10% IN WATER) 250 ML ASDIR PRN IV (CKD) Glucagon (GLUCAGON) 1 MG ASDIR PRN IM Sodium Chloride (SODIUM CHLORIDE 0.9%) 250 ML BOLUS PRN IV Latanoprost (XALATAN 2.5 ML OPHTH SOLN) 1 DROP BEDTIME EACH EYE Timolol Maleate (TIMOPTIC 0.5% 5 ML OPHTH SOLN) 1 DROP BID EACH EYE Brimonidine Tartrate (Alphagan-P 0.2% 5 ML OPHTH SOLN) 1 DROP Q8HR EACH EYE Hydralazine HCl (APRESOLINE) 10 MG Q6H PRN PRN IV Ondansetron HCl (ZOFRAN) 4 MG Q4H PRN PRN IV Dietitian Nutrition assessmentThe data set between the solid lines has been imported from the dietitian's assessment. BMI Calculated: 27.7Nutrition related diagnosis: OverweightNutrition diagnosis details: BMI 25-29.9Nutrition problem: Increased nutrient needsNutrition etiology: Decreased mobilityNutrition signs and symptoms: ENTERAL NUTRITION TO MEET , ENERGY NEEDS , (DIET ADVANCED TO PUREED AND, TOLERATED.), Pressure injuryNutrition prescription: 1. RECOMMEND PUREED CCD5 DIET. 2. PROVIDE GLUCERNA TID WITH MEALS/SAMEER BID 3. MONITOR PO, WT, LABS, BM.Dietitian name: Rohan Keara, DIETAssessment completed: 09/05/23 Physical ExamGeneral appearance: awakeRespiratory: no distressSkin: open wounds. Wound AssessmentWound Assessment 1: Type/cause: pressure Wound location: heel (right and left) Site condition: necrotic tissue Stage of pressure ulcer: unstageableWound Assessment 2: Type/cause: pressure Wound location: sacral region Site condition: dehiscence, drainage Stage of pressure ulcer: stage III Wound margins: open ResultsFindings/Data:Laboratory Tests: 09/06 09/06 09/05 1139 0713 1840 Chemistry POC Glucose (70 - 110 MG/DL) 190 H 141 H 175 H Diagnosis, Assessment PlanProblem List/A P: 1. Pressure ulcer of sacral region, stage 3 2. Pressure ulcer, heel, right, unstageable 3. Pressure ulcer, heel, left, unstageable 4. Anemia 5. Failure to thrive Free Text A P:09/02/2023: Will continue with the Santyl to the heel areas. Will continue with the gentamicin to the sacral area. Anemia, which will impede wound healing, defer to the primary care team. Albumin is on the lower end which will also impede wound healing. Recommend dietary input. 09/03/2023: Patient currently in bed, no issues reported overnight; patient's blood sugars between 150-240s. Patient is currently taking Sameer, he is anemic and his albumin in low. Will continue Santyl in the bilateral heels and gentamicin in the sacral areas. 09/04/2023: Patient currently in bed, no issues reported overnight; patient's blood sugars between are stable today. Patient is currently taking Sameer. Will continue Santyl in the bilateral heels and gentamicin in the sacral areas. 09/05/2023: Patient resting in bed, at bedside and all concerns addressed. patient's blood sugars between normal levels . Patient is currently taking Sameer. Will continue Santyl in the bilateral heels and gentamicin in the sacral areas. Keep patient offload, apply Prevalon Boots and nutritional support. 09/06/2023: Patient resting in bed, and primary nurse at bedside. Patient'sblood sugars between normal levels . Patient is currently taking Sameer. Will continue Santyl in the bilateral heels and gentamicin in the sacral areas. Keep patient offload, apply Prevalon Boots and nutritional support. 09/07/2023: Patient resting in bed, no issues overnight. Patient's blood sugars between normal levels . Patient is currently taking Sameer. Will continue Santyl in the bilateral heels and gentamicin in the sacral areas. Keep patient offload,apply Prevalon Boots and nutritional support. Tano Sanchez 09/09/232049:AttestationsAttestation needed: supervising physician Physician AttestationAgree w/findings plan:Agree with the findings and plan as documented by ANGEL Lindsey* my personal evaluation isPatient's history, physical exam, assessment and plan were discussed with ANGEL Alexis. I agree with the management and plan at 1300 at 2051 RPT #:[id number] OF REPORTPNProcedure [id number]:57:00G.[id number] for patient shfjLYTAVIFMBEYXOY6692-87-69R19:00:49 [facility] 2023-09-07 12:51:00 [id number]+PsTOo1DsWjm WS5WNix3Khs29oRRwnS ygRTNYso9eiK0y7+E1260-57-22J92:51:00 [facility]Pall[facility] Progress NoteREPORT#:[id number] REPORT STATUS: SignedREPORT INITIALIZATION DATE:09/07/23 TIME: 1251 PATIENT: MISSY CANALES UNIT #: [id number]#: [id number] [address] [birth year] AGE: 68 SEX: M ATTEND: Raphael Ly MDADM AUTHOR: Glenny Mclaughlin FNPREPT SERVICE DT/TIME: 09/07/23 1251* ALL edits or amendments must be made on the electronic/computer document * Objective GeneralVS:Last Documented: Result Date Time Pulse Ox 98 09/06 1143 B/P 104/68 09/06 1143 B/P Mean 79.9 09/06 1143 Temp 37.0 09/06 1143 Pulse 97 09/06 1143 Resp 18 09/06 1143 O2 Delivery Room air 09/06 0501 O2 Flow Rate 2 08/27 1022 FiO2 40 08/07 0752 PATIENT WEIGHT: Weight (lb): 177Weight (oz): 14.61Weight (kg): 80.286 Diagnosis, Assessment PlanHospital course to date:Patient seen and examined. Spoke with Ms. Canales regarding goals of care including plan to possibly transfer to skill nursing facility versus palliative care versus hospice. She stated, "she needs additional time and does not want to have discussion right now" I will continue to support the patient and family during this difficult time. Thank you for allowing me to assist in the care of Mr. Missy Canales. Time spent - 1730 - 1800 - 30 minutes. 08-22-2023 Patient seen and examined. Spoke with Ms. Canales regarding goals of care including plan to possibly transfer to skill nursing facility versus palliative care versus hospice. She stated, "I will check out the senior care facilities today and need additional time". I will continue to support the patient and family during this difficult time. Thank you for allowing me to assist in the care of Mr. Missy Canales. Time spent - 1130 - 1200 - 30 minutes. 08-23-2023 Patient seen and examined. Spoke with Ms. Canales at bedside regarding goals of care including plan to possibly transfer to skill nursing facility versus palliative care versus hospice. She stated, "He is going to [facility] then to rehab". Explained the benefits of oupatient palliative care and discussed advance directives including living will and MPOA if he is oriented to make decisions. No changes at this time. I will continue to support the patient and family during this difficult time. Thank you for allowing me to assist in the care of Mr. Missy Canales. Time spent - 1730 - 1800 - 30 minutes. 08-27-2023 Patient seen and examined. Spoke with Ms. Canales regarding goals of care - she intends to have her spouse go to SNF. I will continue to support the patient and family during this difficult time. Thank you for allowing me to assist in the care of Mr. Missy Canales. Time spent - 1330 - 1400 - 30 minutes. 08-28-2023 Patient seen and examined. Spoke with Ms. Canales regarding goals of care - no changes in GOC plan to discharge to SNF. Case management assisting family with SNF. I will continue to support the patient and family during this difficult time. Thank you for allowing me to assist in the care of Mr. Missy Canales. Time spent - 1430 - 1500 - 30 minutes. 08-29-2023 Patient seen and examined. Spoke with Ms. Canales regarding goals of care - no changes in GOC plan to discharge to SNF. I will continue to support the patient and family during this difficult time. Thank you for allowing me to assist in the care of Mr. Missy Canales. Time spent - 30 minutes 09-04-2023 Patient seen and examined. no changes in GOC plan to discharge to SNF accordingto patient's spouse. I will continue to support the patient and family during this difficult time. Thank you for allowing me to assist in the care of Mr. Parikh. Time spent - 30 minutes 09-05-2023 Patient seen and examined. Patient's spouse at bedside reports plan for patientto go to SNF . I will continue to support the patient and family during this difficult time. Thank you for allowing me to assist in the care of Mr. Missy Canales. Time spent 0930 - 1000 - 30 minutes 09-06-2023 Patient seen and examined. Patient's spouse at bedside . No changes in care and no questions at this time. Discussed outpatient palliative care to prevent future hospitalization. No changes at this time. I will continue to support the patient and family during this difficult time. Thank you for allowing me toassist in the care of Mr. Missy Canales. Time spent- 0900 - 930 - 30 minutes 09-07-2023 Patient seen and examined. No changes in care and no questions at this time. Case management assisting with discharge planning for today. I will continue tosupport the patient and family during this difficult time. Thank you for allowing me to assist in the care of Mr. Missy Canales. Time spent- 0900 - 920 - 20 minutes Quality Current MedicationsCurrent medication review:I attest that the foregoing medication list in the medical record is true, accurate, and complete to the best of my knowledge. Advanced Care Plan 65 or OlderDiscussed with: patient, surrogate decis. maker at 1302 RPT #:[id number] OF REPORTPRProgress [id number]:51:00G.[id number] for patient jmabMQRZSGBKZCFQBJ1134-10-24A50:02:39 [facility] 2023-09-07 12:22:00 [id number] cW4yl3AR2YJ7e8GOyIl lFYPU/Rg2//DoROll1668-38-69Y73:22:00 [facility])Endocrinology Progress NoteREPORT#:[id number] REPORT STATUS: SignedREPORT INITIALIZATION DATE:09/07/23 TIME: 122 PATIENT: MISSY CANALES UNIT #: [id number]#: [id number] ROOM[facility]BED: [facility]DOB: [birth year] AGE: 68 SEX: M ATTEND: Raphael Ly AUTHOR: Agus Duckworth APRNNPREPT SERVICE DT/TIME: 09/07/23 1130* ALL edits or amendments must be made on the electronic/computer document * SubjectiveChief complaint:f/u DM IItolerating diet awaiting SNF placement Objective GeneralVS:Last Documented: Result Date Time Pulse Ox 98 09/06 1143 B/P 104/68 09/06 1143 B/P Mean 79.9 09/06 1143 Temp 98.6 09/06 1143 Pulse 97 09/06 1143 Resp 18 09/06 1143 O2 Delivery Room air 09/06 0501 O2 Flow Rate 2 08/27 1022 FiO2 40 08/07 0752 PATIENT WEIGHT: Weight (lb): 177Weight (oz): 14.61Weight (kg): 80.286 Medications:Active Meds + DC'd Last 24 HrsInsulin Human Lispro (HUMALOG) 3 UNIT AC SUBQ (UNV) Magnesium Oxide (MAG-OX 400) 800 MG DAILY PO Insulin Human Lispro (HUMALOG) 2 UNIT AC SUBQ (DCr) Potassium Chloride (K-CHAPITO 20 MEQ PACKET) 40 MEQ DAILY PO Metoprolol Tartrate (LOPRESSOR) 50 MG BID PO Collagenase (SANTYL 2GM TOPICAL) 1 APPLIC DAILY TOPICAL Zinc Oxide (ZINC OXIDE 30 GM OINTMENT) 1 APPLIC BID TOPICAL Amiodarone HCl (CORDARONE) 200 MG BID 9A 5P FEED-TUBE Apixaban (ELIQUIS 5MG TABLET) 5 MG BID 9A 5P PO Pantoprazole (PROTONIX) 40 MG BID AC PO Insulin Glargine (Semglee) 20 UNIT DAILY SUBQ Tamsulosin HCl (Flomax 0.4 mg) 0.4 MG PC BK PO Insulin Human Lispro (HUMALOG) 0 AC HS SUBQ Atorvastatin Calcium (LIPITOR) 40 MG BEDTIME PO Lactulose (LACTULOSE) 20 GM Q12HR PO Senna/Docusate Sodium (SENOKOT S) 1 TAB Q12HR PO Allopurinol (ZYLOPRIM) 300 MG DAILY PO Aspirin (ASPIRIN) 81 MG DAILY PO Acetaminophen (TYLENOL) 650 MG Q6H PRN PRN PO Bisacodyl (DULCOLAX) 10 MG DAILY PRN PRN RECTAL Polyethylene Glycol (MIRALAX) 17 GM Q12H PO Dextrose/Water (DEXTROSE 10% IN WATER) 125 ML ASDIR PRN IV (CKD) Dextrose/Water (DEXTROSE 10% IN WATER) 250 ML ASDIR PRN IV (CKD) Glucagon (GLUCAGON) 1 MG ASDIR PRN IM Sodium Chloride (SODIUM CHLORIDE 0.9%) 250 ML BOLUS PRN IV Latanoprost (XALATAN 2.5 ML OPHTH SOLN) 1 DROP BEDTIME EACH EYE Timolol Maleate (TIMOPTIC 0.5% 5 ML OPHTH SOLN) 1 DROP BID EACH EYE Brimonidine Tartrate (Alphagan-P 0.2% 5 ML OPHTH SOLN) 1 DROP Q8HR EACH EYE Hydralazine HCl (APRESOLINE) 10 MG Q6H PRN PRN IV Ondansetron HCl (ZOFRAN) 4 MG Q4H PRN PRN IV Dietitian nutrition assessmentThe data set between the solid lines has been imported from the dietitian's assessment. BMI Calculated: 27.7Nutrition related diagnosis: OverweightNutrition diagnosis details: BMI 25-29.9Nutrition problem: Increased nutrient needsNutrition etiology: Decreased mobilityNutrition signs and symptoms: ENTERAL NUTRITION TO MEET , ENERGY NEEDS , (DIET ADVANCED TO PUREED AND, TOLERATED.), Pressure injuryNutrition prescription: 1. RECOMMEND PUREED CCD5 DIET. 2. PROVIDE GLUCERNA TID WITH MEALS/SAMEER BID 3. MONITOR PO, WT, LABS, BM.Dietitian name: Rohan Sarah, DIETAssessment completed: 09/05/23 Physical ExamGeneral appearance: alert, awakeHEENT: atraumatic, clear cornea, normocephalicNeck: suppleCardiovascular: regular rate rhythmRespiratory: on oxygenAbdomen: softGenitourinary: not indicatedExtremities: warmNeuro/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: alertSkin: warmFindings/data:Laboratory Tests: 09/06 09/06 09/05 1139 0713 1840 Chemistry POC Glucose (70 - 110 MG/DL) 190 H 141 H 175 H Laboratory Tests: 09/06 09/06 09/05 1139 0713 1840 Chemistry POC Glucose (70 - 110 MG/DL) 190 H 141 H 175 H Diagnosis, Assessment PlanFree Text A P:1.DM VTJwdR0o 8.2adjust Lantus adjust Humalog monitor glucose diabetic diet DC Plan: Lantus, Humalog, follow at next available appointment. 2.Abnormal thyroid functions 08/06 TSH 0.07 FT4 1 recheck in a couple of days 3.Suspected ischemic strokeMRI brain without contrastEchocardiogramTelemetryneurology following 4.Coronary artery diseasePCI on July 03, 2023Echocardiogram preserved LVEFdual antiplateletscardiology following 5. Elevated LFTsGI following 6.MRCP with complex cystic fluid collectionpost drainage surgery following at 1226 at 0827 RPT #:[id number] OF REPORTPRProgress [id number]:22:00G.[id number] for patient vlcvDNTHSKWWXHPBYR1571-46-03R88:26:51 [facility] 2023-09-07 12:01:00 [id number] 0o5KfSYMs4LYT+24JZo LarmPSV9BkZQo7Y6s8786-48-96V49:01:00 [facility] ([facility]Hospitalist Progress NoteREPORT#:[id number] REPORT STATUS: SignedREPORT INITIALIZATION DATE:09/07/23 TIME: 1200 PATIENT: MISSY CANALES UNIT #: [id number]#: [id number] ROOM/BED: 6617-1DOB: [birth year] AGE: 68 SEX: M ATTEND: Raphael Ly MDADM AUTHOR: Clyde Lares DOREPT SERVICE DT/TIME: 09/07/23 1201* ALL edits or amendments must be made on the electronic/computer document * SubjectiveChief complaint:Patient is resting comfortably in bed this morning in no acute distress Objective GeneralVS/I O:Vital Signs: Date Time Temp Pulse Resp B/P B/P Pulse O2 O2 Flow FiO2 Mean Ox Delivery Rate 09/06 1143 98.6 97 18 104/68 79.9 98 09/06 0714 99.1 52 18 117/67 83.7 99 09/06 0501 98.4 87 19 127/67 86.9 99 Room air 09/05 2333 98.1 81 19 132/77 95.2 99 Room air 09/05 2058 98.2 19 09/05 1842 100.4 94 17 110/65 80.1 97 Room air 09/05 1212 99.5 49 18 125/76 92.2 100 24 hour I O ending at 0700: 09/06 0700 09/05 1900 Intake Total Output Total 300 Balance -300 Number 1 Bowel Movements Output, Urine 300 PATIENT WEIGHT: Weight (lb): 177Weight (oz): 14.61Weight (kg): 80.286 Medications:Active Meds + DC'd Last 24 HrsMagnesium Oxide (MAG-OX 400) 800 MG DAILY PO Insulin Human Lispro (HUMALOG) 2 UNIT AC SUBQ Potassium Chloride (K-CHAPITO 20 MEQ PACKET) 40 MEQ DAILY PO Metoprolol Tartrate (LOPRESSOR) 50 MG BID PO Collagenase (SANTYL 2GM TOPICAL) 1 APPLIC DAILY TOPICAL Zinc Oxide (ZINC OXIDE 30 GM OINTMENT) 1 APPLIC BID TOPICAL Amiodarone HCl (CORDARONE) 200 MG BID 9A 5P FEED-TUBE Apixaban (ELIQUIS 5MG TABLET) 5 MG BID 9A 5P PO Pantoprazole (PROTONIX) 40 MG BID AC PO Insulin Glargine (Semglee) 20 UNIT DAILY SUBQ Tamsulosin HCl (Flomax 0.4 mg) 0.4 MG PC BK PO Insulin Human Lispro (HUMALOG) 0 AC HS SUBQ Atorvastatin Calcium (LIPITOR) 40 MG BEDTIME PO Lactulose (LACTULOSE) 20 GM Q12HR PO Senna/Docusate Sodium (SENOKOT S) 1 TAB Q12HR PO Allopurinol (ZYLOPRIM) 300 MG DAILY PO Aspirin (ASPIRIN) 81 MG DAILY PO Acetaminophen (TYLENOL) 650 MG Q6H PRN PRN PO Bisacodyl (DULCOLAX) 10 MG DAILY PRN PRN RECTAL Polyethylene Glycol (MIRALAX) 17 GM Q12H PO Dextrose/Water (DEXTROSE 10% IN WATER) 125 ML ASDIR PRN IV (CKD) Dextrose/Water (DEXTROSE 10% IN WATER) 250 ML ASDIR PRN IV (CKD) Glucagon (GLUCAGON) 1 MG ASDIR PRN IM Sodium Chloride (SODIUM CHLORIDE 0.9%) 250 ML BOLUS PRN IV Latanoprost (XALATAN 2.5 ML OPHTH SOLN) 1 DROP BEDTIME EACH EYE Timolol Maleate (TIMOPTIC 0.5% 5 ML OPHTH SOLN) 1 DROP BID EACH EYE Brimonidine Tartrate (Alphagan-P 0.2% 5 ML OPHTH SOLN) 1 DROP Q8HR EACH EYE Hydralazine HCl (APRESOLINE) 10 MG Q6H PRN PRN IV Ondansetron HCl (ZOFRAN) 4 MG Q4H PRN PRN IV Physical ExamGeneral appearance: alert, awake, orientedHead/Eyes: atraumatic, normocephalic, PERRLAENT: moist mucosal membranes, normal dentitionNeck: full range of motion, non-tender, no JVDCardiovascular: normal heart sounds, regular rate rhythmRespiratory: aerating well, symmetric expansion, no distressAbdomen: non-tender, normal bowel sounds, jtube present with minimal collection (liver abscess drains in place)Genitourinary: no bladder distention, no flank painExtremities: no clubbing, no cyanosisMusculoskeletal: no muscle spasmNeuro/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: abnormal speech, disoriented, alert ResultsFindings/Data:Laboratory Tests 09/06 09/06 09/05 09/05 1139 0713 1840 1207 Chemistry POC Glucose (70 - 110 MG/DL) 190 H 141 H 175 H 189 H Diagnosis, Assessment PlanProblem List/A P: 1. Acute cholangitis 2. Elevated LFTs 3. Liver abscess 4. Failure to thrive Free Text DxA P NotesFree text DxA P notes:68-year-old male admitted with abdominal pain, noted with NSTEMI, s/p stent placement to diagonal artery on 07/02/23. Still need staged PCI to RCA. Patient was noted with a liver abscess, seen by general surgery and GI, drain was placedby IR, has been tolerating antibiotics well. Patient was noted with some anemia, EGD was unremarkable but for gastric ulcers with no active bleeding.* Appreciated input from general surgery, GI, cardiology, and ID* Continue on PPI* Awaiting removal of one of the liver drains which is empty, will possibly for an injury which is still draining* Encourage oral intake and therapy* is at the bedside and all concerns addressed* is considering taking patient home with home health* See my DC summary from 08/22 for details* The patient requires the positioning of the body in a way not feasible in an ordinary bed, in order to alleviate his pain, patient will need a hospital bed which can elevate his body to a 30 degree angle at 1203 RPT #:[id number] OF REPORTPRProgress [id number]:01:00G.[id number] for patient rkdsBAQEJUZVVHKQUD5001-11-89X19:03:22 [facility] 2023-09-07 11:30:00 [id number]/ddHR1 GPnPXAWJj1QL2h6Ului Fj7rcHZjVpGo2TGQd3384-31-05L32:30:00 [facility] ([facility])Clinical NoteREPORT#:[id number] REPORT STATUS: SignedREPORT INITIALIZATION DATE:09/07/23 TIME: 113 PATIENT: MISSY CANALES UNIT #: [id number]#: [id number] [address] [birth year] AGE: 68 SEX: M ATTEND: Raphael Ly [facility] AUTHOR: Pete AdairEPT SERVICE DT/TIME: 09/07/23 1130* ALL edits or amendments must be made on the electronic/computer document * Clinical NoteNote:Patient has two parallel drains on right flank. output on superior drain in minmal while slightly inferior drain has moderate to heavy output. CT scan of August 29, 2023 shows galbladder fossa abscess resolved. Discussed with ordering MD Dr Abdi who asked that low-output drain be removed. Drain was removed using aseptic technique, dressing placed, other drain left in place. Care Instructions given to patient and nurse. at 1134 RPT #:[id number] OF REPORTCLClinical rivx8895-89-04V80:30:00G.[id number] for patient bvjnIMPLFCFLGOURGG5694-80-68D92:35:06 [facility] 2023-09-07 07:58:00 [id number] EeFubxOJSCry+uKTWs5 ciU9w7LuoERv+w5f42382-23-13K37:58:00 [facility] ([facility])Cardiology Progress NoteREPORT#:[id number] REPORT STATUS: SignedREPORT INITIALIZATION DATE:09/07/23 TIME: 757 PATIENT: MISSY CANALES UNIT #: [id number]#: [id number] [address] [birth year] AGE: 68 SEX: M ATTEND: Raphael Ly AUTHOR: Esther BucknerPREPT SERVICE DT/TIME: 09/07/238* ALL edits or amendments must be made on the electronic/computer document * SubjectivePatient reports:No: complaints. Objective GeneralVS/I O:24 hour I O ending at 0700: 09/06 0700 09/05 1900 Intake Total Output Total 300 Balance -300 Number 1 Bowel Movements Output, Urine 300 Vital Signs: Date Time Temp Pulse Resp B/P B/P Pulse O2 O2 Flow FiO2 Mean Ox Delivery Rate 09/06 713 37.3 52 18 117/67 83.7 99 09/06 0501 36.9 87 19 127/67 86.9 99 Room air 09/05 2333 36.7 81 19 132/77 95.2 99 Room air 09/05 2058 36.8 19 09/05 1842 38.0 94 17 110/65 80.1 97 Room air 09/05 1212 37.5 49 18 125/76 92.2 100 09/05 0810 36.9 86 18 126/79 94.3 97 PATIENT WEIGHT: Weight (lb): 177Weight (oz): 14.61Weight (kg): 80.286 Medications:Active Meds + DC'd Last 24 HrsMagnesium Oxide (MAG-OX 400) 800 MG DAILY PO Insulin Human Lispro (HUMALOG) 2 UNIT AC SUBQ Potassium Chloride (K-CHAPITO 20 MEQ PACKET) 40 MEQ DAILY PO Metoprolol Tartrate (LOPRESSOR) 50 MG BID PO Collagenase (SANTYL 2GM TOPICAL) 1 APPLIC DAILY TOPICAL Zinc Oxide (ZINC OXIDE 30 GM OINTMENT) 1 APPLIC BID TOPICAL Amiodarone HCl (CORDARONE) 200 MG BID 9A 5P FEED-TUBE Apixaban (ELIQUIS 5MG TABLET) 5 MG BID 9A 5P PO Pantoprazole (PROTONIX) 40 MG BID AC PO Insulin Glargine (Semglee) 20 UNIT DAILY SUBQ Tamsulosin HCl (Flomax 0.4 mg) 0.4 MG PC BK PO Insulin Human Lispro (HUMALOG) 0 AC HS SUBQ Atorvastatin Calcium (LIPITOR) 40 MG BEDTIME PO Lactulose (LACTULOSE) 20 GM Q12HR PO Senna/Docusate Sodium (SENOKOT S) 1 TAB Q12HR PO Allopurinol (ZYLOPRIM) 300 MG DAILY PO Aspirin (ASPIRIN) 81 MG DAILY PO Acetaminophen (TYLENOL) 650 MG Q6H PRN PRN PO Bisacodyl (DULCOLAX) 10 MG DAILY PRN PRN RECTAL Polyethylene Glycol (MIRALAX) 17 GM Q12H PO Dextrose/Water (DEXTROSE 10% IN WATER) 125 ML ASDIR PRN IV (CKD) Dextrose/Water (DEXTROSE 10% IN WATER) 250 ML ASDIR PRN IV (CKD) Glucagon (GLUCAGON) 1 MG ASDIR PRN IM Sodium Chloride (SODIUM CHLORIDE 0.9%) 250 ML BOLUS PRN IV Latanoprost (XALATAN 2.5 ML OPHTH SOLN) 1 DROP BEDTIME EACH EYE Timolol Maleate (TIMOPTIC 0.5% 5 ML OPHTH SOLN) 1 DROP BID EACH EYE Brimonidine Tartrate (Alphagan-P 0.2% 5 ML OPHTH SOLN) 1 DROP Q8HR EACH EYE Hydralazine HCl (APRESOLINE) 10 MG Q6H PRN PRN IV Ondansetron HCl (ZOFRAN) 4 MG Q4H PRN PRN IV Physical ExamGeneral appearance: alert, awake, no acute distressENT: normal noseNeck: non-tenderCardiovascular: CV assessment: regular rate and rhythmRespiratory: decreased breath sounds, no distressAbdomen: softGenitourinary: no urinary catheterUpper extremity: UE assessment: normal capillary refill, normal temperatureLower extremity: LE assessment: no edemaMusculoskeletal: decreased ROMNeuro/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: right hemiparesis, alertSkin: dryPsychiatry: normal affect, normal mood ResultsFindings/Data:Laboratory Tests 09/06 09/05 09/05 09/05 0713 1840 1207 0812 Chemistry POC Glucose (70 - 110 MG/DL) 141 H 175 H 189 H 155 H Results: no new labs Diagnosis, Assessment PlanPlan discussed with: patient, spouse/partner, collaborating MD Free Text DxA P NotesFree Text DxA P Notes:1. Coronary artery disease s/p recent PCI/TERESA to diagonal artery* Troponin trend is flat* Hx of CABG (2000)* s/p stent placement to diagonal artery on 07/02/23. Still need staged PCI to RCA. * Echocardiogram preserved LVEF.* PPI: lansoprazole 30 mg BID* Plavix dc'd (08/30/23), switched to Eliquis (afib) and ASA - tx decision discussed in depth with 2. Elevated LFTs/acute cholecystitis/liver abscess* s/p cholecystostomy tube placement. * ID on board managing antibiotic* GI on board* s/p EGD: nonbleeding ulcer 3. AMS: MRI brain showed small subacute ischemia in the L coronary radiata * MRI of the brain unchanged 4. Tachycardia with PVCs and PACs/Paroxysmal atrial fibrillation* [id number] score 6, recommend AC * HASBLED 4* continue Eliquis 5 mg BID plus ASA 81 mg daily. * continue amiodarone 200 mg BID* continue metoprolol tartrate 50 mg BID 5. Anemia* hgb 6.3 up to 8.9->8.6->6.9->7->8.7->8.6->8.3->8.8* s/p 2 units PRBCs 08/20/23, 1 unit PRBC 08/26/23* On PPI* GI on board, s/p EGD showed nonbleeding ulcer 6. Hypokalemia/hypomagnesemia* continue KCL 40 mg daily* continue Mag oxide 800 mg daily* encourage oral intake SNF denied, likely DC home with . Medical decision making by Dr. Daniel. at 1541 RPT #:[id number] OF REPORTPRProgress [id number]:58:00G.[id number] for patient tmldKAWEAOEZHPKFMF5063-54-76Y55:41:45 [facility] 2023-09-06 17:28:00 [id number] HUWYByQJ2o6a+3igUtT I08FJ7d2yApGelD809428-83-18X44:28:00 [facility] Progress NoteREPORT#:[id number] REPORT STATUS: SignedREPORT INITIALIZATION DATE:09/06/23 TIME: 1727 PATIENT: MISSY CANALES UNIT #: [id number]#: [id number] [address] [birth year] AGE: 68 SEX: M ATTEND: Raphael Ly MDADM AUTHOR: Glenny Mclaughlin FNPREPT SERVICE DT/TIME: 09/06/231727* ALL edits or amendments must be made on the electronic/computer document * Objective GeneralMedications:Active Meds + DC'd Last 24 HrsMagnesium Oxide (MAG-OX 400) 800 MG DAILY PO Insulin Human Lispro (HUMALOG) 2 UNIT AC SUBQ Potassium Chloride (K-CHAPITO 20 MEQ PACKET) 40 MEQ DAILY PO Metoprolol Tartrate (LOPRESSOR) 50 MG BID PO Collagenase (SANTYL 2GM TOPICAL) 1 APPLIC DAILY TOPICAL Mupirocin (BACTROBAN 2% 22 GM OINTMENT) 1 APPLIC BID TOPICAL (DC) Zinc Oxide (ZINC OXIDE 30 GM OINTMENT) 1 APPLIC BID TOPICAL Amiodarone HCl (CORDARONE) 200 MG BID 9A 5P FEED-TUBE Apixaban (ELIQUIS 5MG TABLET) 5 MG BID 9A 5P PO Pantoprazole (PROTONIX) 40 MG BID AC PO Insulin Glargine (Semglee) 20 UNIT DAILY SUBQ Tamsulosin HCl (Flomax 0.4 mg) 0.4 MG PC BK PO Insulin Human Lispro (HUMALOG) 0 AC HS SUBQ Atorvastatin Calcium (LIPITOR) 40 MG BEDTIME PO Lactulose (LACTULOSE) 20 GM Q12HR PO Senna/Docusate Sodium (SENOKOT S) 1 TAB Q12HR PO Allopurinol (ZYLOPRIM) 300 MG DAILY PO Aspirin (ASPIRIN) 81 MG DAILY PO Acetaminophen (TYLENOL) 650 MG Q6H PRN PRN PO Bisacodyl (DULCOLAX) 10 MG DAILY PRN PRN RECTAL Polyethylene Glycol (MIRALAX) 17 GM Q12H PO Dextrose/Water (DEXTROSE 10% IN WATER) 125 ML ASDIR PRN IV (CKD) Dextrose/Water (DEXTROSE 10% IN WATER) 250 ML ASDIR PRN IV (CKD) Glucagon (GLUCAGON) 1 MG ASDIR PRN IM Sodium Chloride (SODIUM CHLORIDE 0.9%) 250 ML BOLUS PRN IV Latanoprost (XALATAN 2.5 ML OPHTH SOLN) 1 DROP BEDTIME EACH EYE Timolol Maleate (TIMOPTIC 0.5% 5 ML OPHTH SOLN) 1 DROP BID EACH EYE Brimonidine Tartrate (Alphagan-P 0.2% 5 ML OPHTH SOLN) 1 DROP Q8HR EACH EYE Hydralazine HCl (APRESOLINE) 10 MG Q6H PRN PRN IV Ondansetron HCl (ZOFRAN) 4 MG Q4H PRN PRN IV Diagnosis, Assessment PlanHospital course to date:Patient seen and examined. Spoke with Ms. Canales regarding goals of care including plan to possibly transfer to [facility] nursing facility versus palliative care versus hospice. She stated, "she needs additional time and does not want to have discussion right now" I will continue to support the patient and family during this difficult time. Thank you for allowing me to assist in the care of Mr. Missy Canales. Time spent - 1730 - 1800 - 30 minutes. 08-22-2023 Patient seen and examined. Spoke with Ms. Canales regarding goals of care including plan to possibly transfer to skill nursing facility versus palliative care versus hospice. She stated, "I will check out the senior care facilities today and need additional time". I will continue to support the patient and family during this difficult time. Thank you for allowing me to assist in the care of Mr. Missy Canales. Time spent - 1130 - 1200 - 30 minutes. 08-23-2023 Patient seen and examined. Spoke with Ms. Canales at bedside regarding goals of care including plan to possibly transfer to skill nursing facility versus palliative care versus hospice. She stated, "He is going to [facility] then to rehab". Explained the benefits of oupatient palliative care and discussed advance directives including living will and MPOA if he is oriented to make decisions. No changes at this time. I will continue to support the patient and family during this difficult time. Thank you for allowing me to assist in the care of Mr. Missy Canales. Time spent - 1730 - 1800 - 30 minutes. 08-27-2023 Patient seen and examined. Spoke with Ms. Canales regarding goals of care - she intends to have her spouse go to SNF. I will continue to support the patient and family during this difficult time. Thank you for allowing me to assist in the care of Mr. Missy Canales. Time spent - 1330 - 1400 - 30 minutes. 08-28-2023 Patient seen and examined. Spoke with Ms. Canales regarding goals of care - no changes in GOC plan to discharge to SNF. Case management assisting family with SNF. I will continue to support the patient and family during this difficult time. Thank you for allowing me to assist in the care of Mr. Missy Canales. Time spent - 1430 - 1500 - 30 minutes. 08-29-2023 Patient seen and examined. Spoke with Ms. Canales regarding goals of care - no changes in GOC plan to discharge to SNF. I will continue to support the patient and family during this difficult time. Thank you for allowing me to assist in the care of Mr. Missy Canales. Time spent - 30 minutes 09-04-2023 Patient seen and examined. no changes in GOC plan to discharge to SNF accordingto patient's spouse. I will continue to support the patient and family during this difficult time. Thank you for allowing me to assist in the care of Mr. Parikh. Time spent - 30 minutes 09-05-2023 Patient seen and examined. Patient's spouse at bedside reports plan for patientto go to SNF . I will continue to support the patient and family during this difficult time. Thank you for allowing me to assist in the care of Mr. Missy Canales. Time spent 0930 - 1000 - 30 minutes 09-06-2023 Patient seen and examined. Patient's spouse at bedside . No changes in care and no questions at this time. Discussed outpatient palliative care to prevent future hospitalization. No changes at this time. I will continue to support the patient and family during this difficult time. Thank you for allowing me toassist in the care of Mr. Missy Canales. Time spent- 0900 - 930 - 30 minutes Quality Current MedicationsCurrent medication review:I attest that the foregoing medication list in the medical record is true, accurate, and complete to the best of my knowledge. Advanced Care Plan 65 or OlderDiscussed with: patient, surrogate decis. maker at 1302 RPT #:[id number] OF REPORTPRProgress qllg7159-12-91O63:28:00G.[id number] for patient krobMWRKCUWJYQHLTP0716-17-93X88:02:19 [facility] 2023-09-06 12:58:00 [id number] hLRT+UibTbmvXOjuYEx 6zapwB4dkePRmmSpw6363-20-57R04:58:00 [facility] ([facility])Wound Care Progress NoteREPORT#:[id number] REPORT STATUS: SignedREPORT INITIALIZATION DATE:09/06/23 TIME: 1258 PATIENT: MISSY CANALES UNIT #: [id number]#: [id number] ROOM/BED: 6617-1DOB: [birth year] AGE: 68 SEX: M ATTEND: Raphael Ly MDADM AUTHOR: Lilly Riggins APRNNPREPT SERVICE DT/TIME: 09/06/23 1258* ALL edits or amendments must be made on the electronic/computer document * Lilly Riggins 09/06/23 1258:SubjectiveChief complaint:both heels and sacralHPI:68-year-old male being seen for follow-up of all his wounds. is at bedside. Objective GeneralVS:Last Documented: Result Date Time Pulse Ox 100 09/05 1212 B/P 125/76 09/05 1212 B/P Mean 92.2 09/05 1212 Temp 37.5 09/05 1212 Pulse 49 09/05 1212 Resp 18 09/05 1212 O2 Delivery Room air 09/05 0431 O2 Flow Rate 2 08/27 1022 FiO2 40 08/07 0752 PATIENT WEIGHT: Weight (lb): 177Weight (oz): 14.61Weight (kg): 80.286 Medications:Active Meds + DC'd Last 24 HrsMagnesium Oxide (MAG-OX 400) 800 MG DAILY PO Insulin Human Lispro (HUMALOG) 2 UNIT AC SUBQ Potassium Chloride (K-CHAPITO 20 MEQ PACKET) 40 MEQ DAILY PO Metoprolol Tartrate (LOPRESSOR) 50 MG BID PO Collagenase (SANTYL 2GM TOPICAL) 1 APPLIC DAILY TOPICAL Mupirocin (BACTROBAN 2% 22 GM OINTMENT) 1 APPLIC BID TOPICAL (DC) Zinc Oxide (ZINC OXIDE 30 GM OINTMENT) 1 APPLIC BID TOPICAL Amiodarone HCl (CORDARONE) 200 MG BID 9A 5P FEED-TUBE Apixaban (ELIQUIS 5MG TABLET) 5 MG BID 9A 5P PO Pantoprazole (PROTONIX) 40 MG BID AC PO Insulin Glargine (Semglee) 20 UNIT DAILY SUBQ Tamsulosin HCl (Flomax 0.4 mg) 0.4 MG PC BK PO Insulin Human Lispro (HUMALOG) 0 AC HS SUBQ Atorvastatin Calcium (LIPITOR) 40 MG BEDTIME PO Lactulose (LACTULOSE) 20 GM Q12HR PO Senna/Docusate Sodium (SENOKOT S) 1 TAB Q12HR PO Allopurinol (ZYLOPRIM) 300 MG DAILY PO Aspirin (ASPIRIN) 81 MG DAILY PO Acetaminophen (TYLENOL) 650 MG Q6H PRN PRN PO Bisacodyl (DULCOLAX) 10 MG DAILY PRN PRN RECTAL Polyethylene Glycol (MIRALAX) 17 GM Q12H PO Dextrose/Water (DEXTROSE 10% IN WATER) 125 ML ASDIR PRN IV (CKD) Dextrose/Water (DEXTROSE 10% IN WATER) 250 ML ASDIR PRN IV (CKD) Glucagon (GLUCAGON) 1 MG ASDIR PRN IM Sodium Chloride (SODIUM CHLORIDE 0.9%) 250 ML BOLUS PRN IV Latanoprost (XALATAN 2.5 ML OPHTH SOLN) 1 DROP BEDTIME EACH EYE Timolol Maleate (TIMOPTIC 0.5% 5 ML OPHTH SOLN) 1 DROP BID EACH EYE Brimonidine Tartrate (Alphagan-P 0.2% 5 ML OPHTH SOLN) 1 DROP Q8HR EACH EYE Hydralazine HCl (APRESOLINE) 10 MG Q6H PRN PRN IV Ondansetron HCl (ZOFRAN) 4 MG Q4H PRN PRN IV Dietitian Nutrition assessmentThe data set between the solid lines has been imported from the dietitian's assessment. BMI Calculated: 27.7Nutrition related diagnosis: OverweightNutrition diagnosis details: BMI 25-29.9Nutrition problem: Increased nutrient needsNutrition etiology: Decreased mobilityNutrition signs and symptoms: ENTERAL NUTRITION TO MEET , ENERGY NEEDS , (DIET ADVANCED TO PUREED AND, TOLERATED.), Pressure injuryNutrition prescription: 1. RECOMMEND PUREED CCD5 DIET. 2. PROVIDE GLUCERNA TID WITH MEALS/SAMEER BID 3. MONITOR PO, WT, LABS, BM.Dietitian name: Rohan Sarah, DIETAssessment completed: 09/05/23 Physical ExamGeneral appearance: awakeRespiratory: no distress Wound AssessmentWound Assessment 1: Type/cause: pressure Wound location: heel (right and left) Site condition: necrotic tissue Stage of pressure ulcer: unstageableWound Assessment 2: Type/cause: pressure Wound location: sacral region Site condition: dehiscence, drainage Stage of pressure ulcer: stage III Wound margins: open ResultsFindings/Data:Laboratory Tests: 09/05 09/05 09/04 09/04 1207 0812 2028 1617 Chemistry POC Glucose (70 - 110 MG/DL) 189 H 155 H 170 H 146 H Diagnosis, Assessment PlanProblem List/A P: 1. Pressure ulcer of sacral region, stage 3 2. Pressure ulcer, heel, right, unstageable 3. Pressure ulcer, heel, left, unstageable 4. Anemia 5. Failure to thrive Free Text A P:09/02/2023: Will continue with the Santyl to the heel areas. Will continue with the gentamicin to the sacral area. Anemia, which will impede wound healing, defer to the primary care team. Albumin is on the lower end which will also impede wound healing. Recommend dietary input. 09/03/2023: Patient currently in bed, no issues reported overnight; patient's blood sugars between 150-240s. Patient is currently taking Sameer, he is anemic and his albumin in low. Will continue Santyl in the bilateral heels and gentamicin in the sacral areas. 09/04/2023: Patient currently in bed, no issues reported overnight; patient's blood sugars between are stable today. Patient is currently taking Sameer. Will continue Santyl in the bilateral heels and gentamicin in the sacral areas. 09/05/2023: Patient resting in bed, at bedside and all concerns addressed. patient's blood sugars between normal levels . Patient is currently taking Sameer. Will continue Santyl in the bilateral heels and gentamicin in the sacral areas. Keep patient offload, apply Prevalon Boots and nutritional support. 09/06/2023: Patient resting in bed, and primary nurse at bedside. Patient'sblood sugars between normal levels . Patient is currently taking Sameer. Will continue Santyl in the bilateral heels and gentamicin in the sacral areas. Keep patient offload, apply Prevalon Boots and nutritional support. Tano Sanchez 09/09/232118:AttestationsAttestation needed: supervising physician Physician AttestationAgree w/findings plan:Agree with the findings and plan as documented by ANGLE Lindsey* my personal evaluation isReviewed the history, physical findings, management and agree with the plan as dictated by ANGEL Lindsey at 1301 at 2133 RPT #:[id number] OF REPORTPNProcedure [id number]:58:00G.[id number] for patient gefzDECBXMRIELUQSC1712-38-12I54:01:44 [facility] 2023-09-06 12:53:00 [id number] WeXraQcnNciPBhTSzZK bkZ0Nl0zeVyeKECd16561-87-27K94:53:00 [facility])Endocrinology Progress NoteREPORT#:[id number] REPORT STATUS: SignedREPORT INITIALIZATION DATE:09/06/23 TIME: 1253 PATIENT: MISSY CANALES UNIT #: [id number]#: [id number] [address] [birth year] AGE: 68 SEX: M ATTEND: Raphael Ly MDADM AUTHOR: Agus Duckworth APRMARKPREPT SERVICE DT/TIME: 09/06/23 1140* ALL edits or amendments must be made on the electronic/computer document * SubjectiveChief complaint:f/u DM IIdiet improving awaiting SNF placement Objective GeneralVS:Last Documented: Result Date Time Pulse Ox 100 09/05 1212 B/P 125/76 09/05 1212 B/P Mean 92.2 09/05 1212 Temp 99.5 09/05 1212 Pulse 49 09/05 1212 Resp 18 09/05 1212 O2 Delivery Room air 09/05 0431 O2 Flow Rate 2 08/27 1022 FiO2 40 08/07 0752 PATIENT WEIGHT: Weight (lb): 177Weight (oz): 14.61Weight (kg): 80.286 Medications:Active Meds + DC'd Last 24 HrsMagnesium Oxide (MAG-OX 400) 800 MG DAILY PO Insulin Human Lispro (HUMALOG) 2 UNIT AC SUBQ Potassium Chloride (K-CHAPITO 20 MEQ PACKET) 40 MEQ DAILY PO Metoprolol Tartrate (LOPRESSOR) 50 MG BID PO Collagenase (SANTYL 2GM TOPICAL) 1 APPLIC DAILY TOPICAL Mupirocin (BACTROBAN 2% 22 GM OINTMENT) 1 APPLIC BID TOPICAL (DC) Zinc Oxide (ZINC OXIDE 30 GM OINTMENT) 1 APPLIC BID TOPICAL Amiodarone HCl (CORDARONE) 200 MG BID 9A 5P FEED-TUBE Apixaban (ELIQUIS 5MG TABLET) 5 MG BID 9A 5P PO Pantoprazole (PROTONIX) 40 MG BID AC PO Insulin Glargine (Semglee) 20 UNIT DAILY SUBQ Tamsulosin HCl (Flomax 0.4 mg) 0.4 MG PC BK PO Insulin Human Lispro (HUMALOG) 0 AC HS SUBQ Atorvastatin Calcium (LIPITOR) 40 MG BEDTIME PO Lactulose (LACTULOSE) 20 GM Q12HR PO Senna/Docusate Sodium (SENOKOT S) 1 TAB Q12HR PO Allopurinol (ZYLOPRIM) 300 MG DAILY PO Aspirin (ASPIRIN) 81 MG DAILY PO Acetaminophen (TYLENOL) 650 MG Q6H PRN PRN PO Bisacodyl (DULCOLAX) 10 MG DAILY PRN PRN RECTAL Polyethylene Glycol (MIRALAX) 17 GM Q12H PO Dextrose/Water (DEXTROSE 10% IN WATER) 125 ML ASDIR PRN IV (CKD) Dextrose/Water (DEXTROSE 10% IN WATER) 250 ML ASDIR PRN IV (CKD) Glucagon (GLUCAGON) 1 MG ASDIR PRN IM Sodium Chloride (SODIUM CHLORIDE 0.9%) 250 ML BOLUS PRN IV Latanoprost (XALATAN 2.5 ML OPHTH SOLN) 1 DROP BEDTIME EACH EYE Timolol Maleate (TIMOPTIC 0.5% 5 ML OPHTH SOLN) 1 DROP BID EACH EYE Brimonidine Tartrate (Alphagan-P 0.2% 5 ML OPHTH SOLN) 1 DROP Q8HR EACH EYE Hydralazine HCl (APRESOLINE) 10 MG Q6H PRN PRN IV Ondansetron HCl (ZOFRAN) 4 MG Q4H PRN PRN IV Dietitian nutrition assessmentThe data set between the solid lines has been imported from the dietitian's assessment. BMI Calculated: 27.7Nutrition related diagnosis: OverweightNutrition diagnosis details: BMI 25-29.9Nutrition problem: Increased nutrient needsNutrition etiology: Decreased mobilityNutrition signs and symptoms: ENTERAL NUTRITION TO MEET , ENERGY NEEDS , (DIET ADVANCED TO PUREED AND, TOLERATED.), Pressure injuryNutrition prescription: 1. RECOMMEND PUREED CCD5 DIET. 2. PROVIDE GLUCERNA TID WITH MEALS/SAMEER BID 3. MONITOR PO, WT, LABS, BM.Dietitian name: Rohan Sarah, DIETAssessment completed: 09/05/23 Physical ExamGeneral appearance: alert, awakeHEENT: atraumatic, clear cornea, normocephalicNeck: suppleCardiovascular: regular rate rhythmRespiratory: on oxygenAbdomen: softGenitourinary: not indicatedExtremities: warmNeuro/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: alertSkin: warmFindings/data:Laboratory Tests: 09/05 09/05 09/04 09/04 1207 0812 2029 1617 Chemistry POC Glucose (70 - 110 MG/DL) 189 H 155 H 170 H 146 H Laboratory Tests: 09/05 09/05 09/04 09/04 1207 0812 2029 1617 Chemistry POC Glucose (70 - 110 MG/DL) 189 H 155 H 170 H 146 H Diagnosis, Assessment PlanFree Text A P:1.DM ZENlfF1p 8.2adjust Lantus adjust Humalog monitor glucose diabetic diet DC Plan: Lantus, Humalog, follow at next available appointment. 2.Abnormal thyroid functions 08/06 TSH 0.07 FT4 1 recheck in a couple of days 3.Suspected ischemic strokeMRI brain without contrastEchocardiogramTelemetryneurology following 4.Coronary artery diseasePCI on July 03, 2023Echocardiogram preserved LVEFdual antiplateletscardiology following 5. Elevated LFTsGI following 6.MRCP with complex cystic fluid collectionpost drainage surgery following at 1226 at 0827 RPT #:[id number] OF REPORTPRProgress kttw4449-08-89N09:53:00G.[id number] for patient ecthTGRWZGRWPEDGMI4024-96-18N66:26:41 [facility] 2023-09-06 12:50:00 [id number]+SVLRQWXe9KspC2ftNEdQgN5 NHrTOza+twHLgihqMBE w2YtpmOx47aeK9o3B8569-62-73O48:50:00 [facility] ([facility])Infectious Dis. Progress NoteREPORT#:[id number] REPORT STATUS: SignedREPORT INITIALIZATION DATE:09/06/23 TIME: 125 PATIENT: MISSY CANALES UNIT #: [id number]#: [id number] ROOM/BED: 6617-1DOB: [birth year] AGE: 68 SEX: M ATTEND: Raphael Ly MDADM AUTHOR: Kjaal Nguyen MDREPT SERVICE DT/TIME: 09/06/23 1250* ALL edits or amendments must be made on the electronic/computer document * SubjectiveChief complaint:Follow-up on bacteremia, hepatic abscess, cholecystitis, aspiration pneumoniaHPI:Review of systems is somewhat limited due to patient's limited responses. Nonetheless, he appears comfortable. present at bedside. No major overnight events. Objective Physical ExamWound/incision: Location:cholecystostomy tube and RUQ drain in placeHead/Eyes: atraumatic, normocephalicENT: moist mucosal membranesNeck: no JVDCardiovascular: regular rate rhythm, no murmurRespiratory: clear to auscultation, symmetric expansionAbdomen: non-tender, soft, no distention, percutaneous drains in place in RUQExtremities: no cyanosis, no edemaNeuro/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 Canales is a 68-year-old male with PMH of HTN, DMII, CAD s/p stent who came to [facility] initially with N/V and abdominal pain. His pain was started 2 days prior to admission. His work up showed elevated LFTs, bilirubin, troponin. His US abdomen showed cholelithiasis with distended gallbladder including material at the gallbladder neck concerning for impacted stone. Patient started on empiric antibiotics and had cultures done with blood culture showing gram negative bacilli. Patient has been febrile and tachycardic while here. GI and general surgery are consulted. Patient was found to have acute cholecystitis with a liver abscess. He had a drain in the gallbladder and in the abscess placed. Blood culture eventually grew Citrobacter and so did the abscess. *Fever--Recurrent after improvement--UA via straight cath (-)--Covid (-)--Flu (-)--F/U CT A/P, decreased liver absces; (+) LLL infiltrates c/w PNA*PNA--CT LLL infiltrates c/w aspiration*Bacteremia--Citrobacter--Source: Biliary*Liver abscess--MRCP showed 4.6 x 3.6 x 3.0 thick walled cystic lesion/fluid collection liver abutting GB fossa--S/P IR drain 08/05, cx CitrobacterCt scan of the abdomen showed no residuasl abscesson 08/29/23*Acute cholecystitis--S/P IR placed cholecystotomy tube ., cx Citrobacter*Acute stroke--MRI (+) subacute Left guo radiata--CTA neck (+) high grade stenosis*ARELY*DM2*HTN*CADFever: on 08/30/23 : blood cx drawn yesterday., ua and cx ordered not done Plan: -Patient has had > 7 days of piperacillin-tazobactam to cover for aspiration pneumonia.-Antibiotic treatment transitioned back to ceftriaxone and metronidazole on 08/22/2023 for coverage of liver abscess. dc iv abx if the urine cx and blood cx done on 08/30/[address] showed resolved liver abscess dced abx current antimicrobilas: none at 2149 RPT #:[id number] OF REPORTPRProgress lsha3690-83-43F39:50:00G.[id number] for patient ahqcANFKFNXKOSVZOD6387-19-17M96:50:04 [facility] 2023-09-06 12:48:00 [id number] xOFHveoDC1UxCMMLHiC +YdMh0EviNOlArjqG2750-76-67Q41:48:00 [facility])Gastroenterology Progress NoteREPORT#:[id number] REPORT STATUS: SignedREPORT INITIALIZATION DATE:09/06/23 TIME: 1247 PATIENT: MISSY CANALES UNIT #: [id number]#: [id number] [address] [birth year] AGE: 68 SEX: M ATTEND: Raphael Ly MDADM AUTHOR: Lisa Cancino MDREPT SERVICE DT/TIME: 09/06/23 1248* ALL edits or amendments must be made on the electronic/computer document * SubjectiveChief complaint:Elevated LFtsHPI:68 year old man s/p cardiac stents 2 weeks ago who was sent to the hospital withelevated LFTs and possible acute cholecystitis. Pt had a stenet recently placed and was started on DAPT. Pt had labs showing elevated LFTs and was sent here forevaluation. Labs showed leukocytosis 15k. Elevated Tbili 3.7. Dbili 2.8. AST 79,ALT 105 and ALP 225. RUQ U/S showed possible cholecystitis and normal CBD of 4 mm in diatmeter. Pt denies pain. No dark urine or peyton-color stool 08/03; patient feels well. MRCP reviewed. No choledocholithiasis. Fluid collection at the liver could be related secondary to gallbladder perforation. LFTs and white count are down. 08/04: Plan for IR for cholecystostomy tube placement. LFts stable. WBC elevated.Was confused this am but improving. NO pain. No fevers. Added flagyl to his Abx regimen 08/05: NO new complaints. IR for abscess drain and cholecystostomy tube 08/06: Transferred overnight to ICU due to AMS. S/P IR with cholecystostomy tube and abscess drain 08/07: severely constipated. NGT in with feeds. drains in. More awake today and oriented. right sided weakness likely acute stroke. MRI brain reviewed- small stroke. KUB reviewed 08/08: Doing better according to . Sheldon removed. Still on feeds 08/09: Feeds at 20 ml/hr. Still no BM 08/10-Had BM last night. Denies n/v/abd pain 08/11-Patient dislodged DH. DH was replaced. +BM today 08/12: has been having BM during the weekend 08/13: No new events 08/14: eating and moving bowels. 08/15: doing well. 08/26: I was called again to evaluate pt. He has melena-like stool and dropped hisH/H. Pt is on DAPT 08/27: S/P EGD showing gastric ulcer in the incisura. flat pigmentation without high rebleeding stigmata. 08/28: H/H stable. Family at bedside. NO melena 08/29: Stbale H/H. NO family at bediside this am 08/30: Stable H/H. 08/31-No GI complaints, family at bedside. HGB 8.3 09/01-HGB 8.8. Last BM today 09/02: Stable H/H. 09/03: H/H stable. Liver drain is no longer draining. cholecystostomy tube draining 09/04:Plan to remove liver drain. H/H stable. No melena 09/05: No complaints. eating getting stronger Objective Physical ExamHEENT: EOMICardiovascular: normal heart soundsRespiratory: clear to auscultationAbdomen: non-tenderExtremities: no edemaSkin: dry, normal temperature Diagnosis, Assessment PlanProblem List/A P: 1. Elevated LFTs Free Text A P:cholestatic pattern. CBD normal on RuQ U/S MRCP showed no evidence of choledocholithiasis.Large fluid collection within the liver could be secondary to gallbladder perforation.Recommend surgical evaluation again.Continue with antibiotics. Add flagyl s/p cholecystostomy tube and drainage of cystic fluid collection. Awaiting culture EGD showed gastric ulcer with flat pigmentPPI PO BID Will need repeat EGD in 6 weeks to confirm healing and rule out malignancyConsider removing hepatic drainWill follow as needed at 1248 RPT #:[id number] OF REPORTPRProgress [id number]:48:00G.[id number] for patient zetvLQETRSWPZZSXQX2496-56-80V54:48:50 [facility] 2023-09-06 12:11:00 [id number]+rSDagdFQFA+5CPZKzNZk YNjcqlbhnvx6X1a9awF pWb44tnO/HgiUxW6u2274-08-09Z48:11:00 [facility] CenterHospitalist Progress NoteREPORT#:[id number] REPORT STATUS: SignedREPORT INITIALIZATION DATE:09/06/23 TIME: 121 PATIENT: MISSY CANALES UNIT #: [id number]#: [id number] [address]DOB: [birth year] AGE: 68 SEX: M ATTEND: Raphael Ly AUTHOR: Clyde Lares SERVICE DT/TIME: 09/06/23 1211* ALL edits or amendments must be made on the electronic/computer document * SubjectiveChief complaint:Patient is doing great this morning with no acute complaint Objective GeneralVS/I O:Vital Signs: Date Time Temp Pulse Resp B/P B/P Pulse O2 O2 Flow FiO2 Mean Ox Delivery Rate 09/05 0810 98.4 86 18 126/79 94.3 97 09/05 0431 98.1 91 16 102/61 74.8 97 Room air 09/05 0048 99.1 85 17 90/51 63.9 98 Room air 09/04 1928 99.3 96 17 94/55 67.7 97 Room air 09/04 1619 99.3 90 18 120/72 87.6 96 24 hour I O ending at 0700: 09/05 0700 09/04 1900 Intake Total Output Total 1000 Balance -1000 Output, Urine 1000 PATIENT WEIGHT: Weight (lb): 177Weight (oz): 14.61Weight (kg): 80.286 Medications:Active Meds + DC'd Last 24 HrsMagnesium Oxide (MAG-OX 400) 800 MG DAILY PO Insulin Human Lispro (HUMALOG) 2 UNIT AC SUBQ Potassium Chloride (K-CHAPITO 20 MEQ PACKET) 40 MEQ DAILY PO Metoprolol Tartrate (LOPRESSOR) 50 MG BID PO Collagenase (SANTYL 2GM TOPICAL) 1 APPLIC DAILY TOPICAL Mupirocin (BACTROBAN 2% 22 GM OINTMENT) 1 APPLIC BID TOPICAL (DC) Zinc Oxide (ZINC OXIDE 30 GM OINTMENT) 1 APPLIC BID TOPICAL Amiodarone HCl (CORDARONE) 200 MG BID 9A 5P FEED-TUBE Apixaban (ELIQUIS 5MG TABLET) 5 MG BID 9A 5P PO Pantoprazole (PROTONIX) 40 MG BID AC PO Insulin Glargine (Semglee) 20 UNIT DAILY SUBQ Tamsulosin HCl (Flomax 0.4 mg) 0.4 MG PC BK PO Insulin Human Lispro (HUMALOG) 0 AC HS SUBQ Atorvastatin Calcium (LIPITOR) 40 MG BEDTIME PO Lactulose (LACTULOSE) 20 GM Q12HR PO Senna/Docusate Sodium (SENOKOT S) 1 TAB Q12HR PO Allopurinol (ZYLOPRIM) 300 MG DAILY PO Aspirin (ASPIRIN) 81 MG DAILY PO Acetaminophen (TYLENOL) 650 MG Q6H PRN PRN PO Bisacodyl (DULCOLAX) 10 MG DAILY PRN PRN RECTAL Polyethylene Glycol (MIRALAX) 17 GM Q12H PO Dextrose/Water (DEXTROSE 10% IN WATER) 125 ML ASDIR PRN IV (CKD) Dextrose/Water (DEXTROSE 10% IN WATER) 250 ML ASDIR PRN IV (CKD) Glucagon (GLUCAGON) 1 MG ASDIR PRN IM Sodium Chloride (SODIUM CHLORIDE 0.9%) 250 ML BOLUS PRN IV Latanoprost (XALATAN 2.5 ML OPHTH SOLN) 1 DROP BEDTIME EACH EYE Timolol Maleate (TIMOPTIC 0.5% 5 ML OPHTH SOLN) 1 DROP BID EACH EYE Brimonidine Tartrate (Alphagan-P 0.2% 5 ML OPHTH SOLN) 1 DROP Q8HR EACH EYE Hydralazine HCl (APRESOLINE) 10 MG Q6H PRN PRN IV Ondansetron HCl (ZOFRAN) 4 MG Q4H PRN PRN IV Physical ExamGeneral appearance: alert, awakeHead/Eyes: atraumatic, normocephalic, PERRLAENT: moist mucosal membranes, normal dentitionNeck: full range of motion, non-tender, no JVDCardiovascular: normal heart sounds, regular rate rhythmRespiratory: aerating well, symmetric expansion, no distressAbdomen: non-tender, normal bowel sounds, jtube present with minimal collection (liver abscess drains in place)Genitourinary: no bladder distention, no flank painExtremities: no clubbing, no cyanosisMusculoskeletal: no muscle spasmNeuro/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: abnormal speech, disoriented, alert ResultsFindings/Data:Laboratory Tests 09/05 09/04 09/04 0812 2029 1617 Chemistry POC Glucose (70 - 110 MG/DL) 155 H 170 H 146 H Treatment Prophylaxis Treatment ProphylaxisOxygen: room air Diagnosis, Assessment PlanProblem List/A P: 1. Acute cholangitis 2. Elevated LFTs 3. Liver abscess 4. Failure to thrive Free Text DxA P NotesFree text DxA P notes:68-year-old male admitted with abdominal pain, noted with NSTEMI, s/p stent placement to diagonal artery on 07/02/23. Still need staged PCI to RCA. Patient was noted with a liver abscess, seen by general surgery and GI, drain was placedby IR, has been tolerating antibiotics well. Patient was noted with some anemia, EGD was unremarkable but for gastric ulcers with no active bleeding.* Appreciated input from general surgery, GI, cardiology, and ID* Continue on PPI* Awaiting liver drains removal today* Encourage oral intake and therapy* is at the bedside and all concerns addressed* is considering taking patient home with home health* See my DC summary from 08/22 for details at 1212 RPT #:[id number] OF REPORTPRProgress hega7271-97-33I38:11:00G.[id number] for patient xhaaVOLJNWKBZWTDHX9083-77-16K79:12:21 [facility] 2023-09-06 07:32:00 [id number]/+h1VBRfrDVo rGGlDXUw/v0IAI0ZelC jPee+j9M2+AVu51h60088-78-80I57:32:00 [facility])Cardiology Progress NoteREPORT#:[id number] REPORT STATUS: SignedREPORT INITIALIZATION DATE:09/06/23 TIME: 731 PATIENT: MISSY CANALES UNIT #: [id number]#: [id number] [address]DOB: [birth year] AGE: 68 SEX: M ATTEND: Raphael Ly MDADM AUTHOR: Esther BucknerCNPREPT SERVICE DT/TIME: 09/06/23 0732* ALL edits or amendments must be made on the electronic/computer document * SubjectivePatient reports:No: complaints. Objective GeneralVS/I O:24 hour I O ending at 0700: 09/05 0700 09/04 1900 Intake Total Output Total 1000 Balance -1000 Output, Urine 1000 Vital Signs: Date Time Temp Pulse Resp B/P B/P Pulse O2 O2 Flow FiO2 Mean Ox Delivery Rate 09/05 0431 36.7 91 16 102/61 74.8 97 Room air 09/05 0048 37.3 85 17 90/51 63.9 98 Room air 09/04 1928 37.4 96 17 94/55 67.7 97 Room air 09/04 1619 37.4 90 18 120/72 87.6 96 09/04 1150 36.9 86 18 99/66 76.8 99 09/04 0816 36.4 109 14 100/63 74.9 99 Room air PATIENT WEIGHT: Weight (lb): 177Weight (oz): 14.61Weight (kg): 80.286 Medications:Active Meds + DC'd Last 24 HrsMagnesium Oxide (MAG-OX 400) 800 MG DAILY PO Insulin Human Lispro (HUMALOG) 2 UNIT AC SUBQ Potassium Chloride (K-CHAPITO 20 MEQ PACKET) 40 MEQ DAILY PO Metoprolol Tartrate (LOPRESSOR) 50 MG BID PO Collagenase (SANTYL 2GM TOPICAL) 1 APPLIC DAILY TOPICAL Mupirocin (BACTROBAN 2% 22 GM OINTMENT) 1 APPLIC BID TOPICAL (DC) Zinc Oxide (ZINC OXIDE 30 GM OINTMENT) 1 APPLIC BID TOPICAL Amiodarone HCl (CORDARONE) 200 MG BID 9A 5P FEED-TUBE Apixaban (ELIQUIS 5MG TABLET) 5 MG BID 9A 5P PO Pantoprazole (PROTONIX) 40 MG BID AC PO Insulin Glargine (Semglee) 20 UNIT DAILY SUBQ Tamsulosin HCl (Flomax 0.4 mg) 0.4 MG PC BK PO Insulin Human Lispro (HUMALOG) 0 AC HS SUBQ Atorvastatin Calcium (LIPITOR) 40 MG BEDTIME PO Lactulose (LACTULOSE) 20 GM Q12HR PO Senna/Docusate Sodium (SENOKOT S) 1 TAB Q12HR PO Allopurinol (ZYLOPRIM) 300 MG DAILY PO Aspirin (ASPIRIN) 81 MG DAILY PO Acetaminophen (TYLENOL) 650 MG Q6H PRN PRN PO Bisacodyl (DULCOLAX) 10 MG DAILY PRN PRN RECTAL Polyethylene Glycol (MIRALAX) 17 GM Q12H PO Dextrose/Water (DEXTROSE 10% IN WATER) 125 ML ASDIR PRN IV (CKD) Dextrose/Water (DEXTROSE 10% IN WATER) 250 ML ASDIR PRN IV (CKD) Glucagon (GLUCAGON) 1 MG ASDIR PRN IM Sodium Chloride (SODIUM CHLORIDE 0.9%) 250 ML BOLUS PRN IV Latanoprost (XALATAN 2.5 ML OPHTH SOLN) 1 DROP BEDTIME EACH EYE Timolol Maleate (TIMOPTIC 0.5% 5 ML OPHTH SOLN) 1 DROP BID EACH EYE Brimonidine Tartrate (Alphagan-P 0.2% 5 ML OPHTH SOLN) 1 DROP Q8HR EACH EYE Hydralazine HCl (APRESOLINE) 10 MG Q6H PRN PRN IV Ondansetron HCl (ZOFRAN) 4 MG Q4H PRN PRN IV Physical ExamGeneral appearance: alert, awake, no acute distressENT: normal noseNeck: non-tenderCardiovascular: CV assessment: regular rate and rhythmRespiratory: decreased breath sounds, no distressAbdomen: softGenitourinary: no urinary catheterUpper extremity: UE assessment: normal capillary refill, normal temperatureLower extremity: LE assessment: no edemaMusculoskeletal: decreased ROMNeuro/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: right hemiparesis, alertSkin: dryPsychiatry: normal affect, normal mood ResultsFindings/Data:Laboratory Tests 09/04 1617 1148 0817 Chemistry POC Glucose (70 - 110 MG/DL) 170 H 146 H 166 H 158 H Results: no new labs, vital signs reviewed Diagnosis, Assessment PlanPlan discussed with: patient, spouse/partner, collaborating MD Free Text DxA P NotesFree Text DxA P Notes:1. Coronary artery disease s/p recent PCI/TERESA to diagonal artery* Troponin trend is flat* Hx of CABG (2000)* s/p stent placement to diagonal artery on 07/02/23. Still need staged PCI to RCA. * Echocardiogram preserved LVEF.* PPI: lansoprazole 30 mg BID* Plavix dc'd (08/30/23), switched to Eliquis (afib) and ASA - tx decision discussed in depth with 2. Elevated LFTs/acute cholecystitis/liver abscess* s/p cholecystostomy tube placement. * ID on board managing antibiotic* GI on board* s/p EGD: nonbleeding ulcer 3. AMS: MRI brain showed small subacute ischemia in the L coronary radiata * MRI of the brain unchanged 4. Tachycardia with PVCs and PACs/Paroxysmal atrial fibrillation* PID5BV2-FSCj score 6, recommend AC * HASBLED 4* continue Eliquis 5 mg BID plus ASA 81 mg daily. * continue amiodarone 200 mg BID* continue metoprolol tartrate 50 mg BID 5. Anemia* hgb 6.3 up to 8.9->8.6->6.9->7->8.7->8.6->8.3->8.8* s/p 2 units PRBCs 08/20/23, 1 unit PRBC 08/26/23* On PPI* GI on board, s/p EGD showed nonbleeding ulcer 6. Hypokalemia/hypomagnesemia* continue KCL 40 mg daily* continue Mag oxide 800 mg daily* encourage oral intake Waiting for placement.Medical decision making by Dr. Daniel. at 1411 RPT #:[id number] OF REPORTPRProgress [id number]:32:00G.[id number] for patient xzweVYJXZENZWBMZHL9252-32-01C56:11:37 [facility] 2023-09-05 21:35:00 [id number]/132 nbM2ES5zp3dqWXaO+d5 BIw4UIsmTcQjHwwqR7678-61-10L44:35:00 [facility] ([facility])Wound Care Progress NoteREPORT#:[id number] REPORT STATUS: SignedREPORT INITIALIZATION DATE:09/05/23 TIME: 2134 PATIENT: MISSY CANALES UNIT #: [id number]#: [id number] [address] [birth year] AGE: 68 SEX: M ATTEND: Raphael Ly MDA AUTHOR: Lilly Riggins APRNNPREPT SERVICE DT/TIME: 09/05/232134* ALL edits or amendments must be made on the electronic/computer document * Lilly Riggins 09/05/232134:SubjectiveChief complaint:both heels and sacralHPI:68-year-old male being seen for follow-up of all his wounds. is at bedside. Objective GeneralVS:Last Documented: Result Date Time Pulse Ox 97 09/05 1927 B/P 94/55 09/05 1927 B/P Mean 67.7 09/05 1927 O2 Delivery Room air 09/05 1927 Temp 37.4 09/05 1927 Pulse 96 09/05 1927 Resp 17 09/05 1927 O2 Flow Rate 2 08/27 1022 FiO2 40 08/07 0752 PATIENT WEIGHT: Weight (lb): 177Weight (oz): 14.61Weight (kg): 80.286 Medications:Active Meds + DC'd Last 24 HrsMagnesium Oxide (MAG-OX 400) 800 MG DAILY PO Insulin Human Lispro (HUMALOG) 2 UNIT AC SUBQ Potassium Chloride (K-CHAPITO 20 MEQ PACKET) 40 MEQ DAILY PO Metoprolol Tartrate (LOPRESSOR) 50 MG BID PO Collagenase (SANTYL 2GM TOPICAL) 1 APPLIC DAILY TOPICAL Mupirocin (BACTROBAN 2% 22 GM OINTMENT) 1 APPLIC BID TOPICAL (DC) Zinc Oxide (ZINC OXIDE 30 GM OINTMENT) 1 APPLIC BID TOPICAL Amiodarone HCl (CORDARONE) 200 MG BID 9A 5P FEED-TUBE Apixaban (ELIQUIS 5MG TABLET) 5 MG BID 9A 5P PO Pantoprazole (PROTONIX) 40 MG BID AC PO Insulin Glargine (Semglee) 20 UNIT DAILY SUBQ Tamsulosin HCl (Flomax 0.4 mg) 0.4 MG PC BK PO Insulin Human Lispro (HUMALOG) 0 AC HS SUBQ Atorvastatin Calcium (LIPITOR) 40 MG BEDTIME PO Lactulose (LACTULOSE) 20 GM Q12HR PO Senna/Docusate Sodium (SENOKOT S) 1 TAB Q12HR PO Allopurinol (ZYLOPRIM) 300 MG DAILY PO Aspirin (ASPIRIN) 81 MG DAILY PO Acetaminophen (TYLENOL) 650 MG Q6H PRN PRN PO Bisacodyl (DULCOLAX) 10 MG DAILY PRN PRN RECTAL Polyethylene Glycol (MIRALAX) 17 GM Q12H PO Dextrose/Water (DEXTROSE 10% IN WATER) 125 ML ASDIR PRN IV (CKD) Dextrose/Water (DEXTROSE 10% IN WATER) 250 ML ASDIR PRN IV (CKD) Glucagon (GLUCAGON) 1 MG ASDIR PRN IM Sodium Chloride (SODIUM CHLORIDE 0.9%) 250 ML BOLUS PRN IV Latanoprost (XALATAN 2.5 ML OPHTH SOLN) 1 DROP BEDTIME EACH EYE Timolol Maleate (TIMOPTIC 0.5% 5 ML OPHTH SOLN) 1 DROP BID EACH EYE Brimonidine Tartrate (Alphagan-P 0.2% 5 ML OPHTH SOLN) 1 DROP Q8HR EACH EYE Hydralazine HCl (APRESOLINE) 10 MG Q6H PRN PRN IV Ondansetron HCl (ZOFRAN) 4 MG Q4H PRN PRN IV Dietitian Nutrition assessmentThe data set between the solid lines has been imported from the dietitian's assessment. BMI Calculated: 27.7Nutrition related diagnosis: OverweightNutrition diagnosis details: BMI 25-29.9Nutrition problem: Increased nutrient needsNutrition etiology: Decreased mobilityNutrition signs and symptoms: ENTERAL NUTRITION TO MEET , ENERGY NEEDS , (DIET ADVANCED TO PUREED AND, TOLERATED.), Pressure injuryNutrition prescription: 1. RECOMMEND PUREED CCD5 DIET. 2. PROVIDE GLUCERNA TID WITH MEALS/SAMEER BID 3. MONITOR PO, WT, LABS, BM.Dietitian name: Rohan Sarah, DIETAssessment completed: 09/05/23 Physical ExamGeneral appearance: awakeRespiratory: no distress Wound AssessmentWound Assessment 1: Type/cause: pressure Wound location: heel (right and left) Site condition: necrotic tissue Stage of pressure ulcer: unstageableWound Assessment 2: Type/cause: pressure Wound location: sacral region Site condition: dehiscence, drainage Stage of pressure ulcer: stage III Wound margins: open ResultsFindings/Data:Laboratory Tests: 09/04 09/04 09/04 09/04 202 1617 1148 0817 Chemistry POC Glucose (70 - 110 MG/DL) 170 H 146 H 166 H 158 H Diagnosis, Assessment PlanProblem List/A P: 1. Pressure ulcer of sacral region, stage 3 2. Pressure ulcer, heel, right, unstageable 3. Pressure ulcer, heel, left, unstageable 4. Anemia 5. Failure to thrive Free Text A P:09/02/2023: Will continue with the Santyl to the heel areas. Will continue with the gentamicin to the sacral area. Anemia, which will impede wound healing, defer to the primary care team. Albumin is on the lower end which will also impede wound healing. Recommend dietary input. 09/03/2023: Patient currently in bed, no issues reported overnight; patient's blood sugars between 150-240s. Patient is currently taking Sameer, he is anemic and his albumin in low. Will continue Santyl in the bilateral heels and gentamicin in the sacral areas. 09/04/2023: Patient currently in bed, no issues reported overnight; patient's blood sugars between are stable today. Patient is currently taking Sameer. Will continue Santyl in the bilateral heels and gentamicin in the sacral areas. 09/05/2023: Patient resting in bed, at bedside and all concerns addressed. patient's blood sugars between normal levels . Patient is currently taking Sameer. Will continue Santyl in the bilateral heels and gentamicin in the sacral areas. Keep patient offload, apply Prevalon Boots and nutritional support. Tano Sanchez 09/09/232123:AttestationsAttestation needed: supervising physician Physician AttestationAgree w/findings plan:Agree with the findings and plan as documented by ANGEL Lindsey* my personal evaluation isReviewed the history, physical findings, management and agree with the plan as dictated by ANGEL Lindsey at 2141 at 2133 RPT #:[id number] OF REPORTPNProcedure [id number]:35:00G.[id number] for patient jsmxMIMLMZNNCKSCUB0140-82-20P93:41:49 [facility] 2023-09-05 13:24:00 [id number] GuXh9/IgOt0S231cdnH 043xFxcOyyg2Hzsrx2726-62-03M97:24:00 [facility])Hospitalist Progress NoteREPORT#:[id number] REPORT STATUS: SignedREPORT INITIALIZATION DATE:09/05/23 TIME: 132 PATIENT: MISSY CANALES UNIT #: [id number]#: [id number] [address] [birth year] AGE: 68 SEX: M ATTEND: Raphael Ly MDADM AUTHOR: Clyde Lares DOREPT SERVICE DT/TIME: 09/05/23 1324* ALL edits or amendments must be made on the electronic/computer document * SubjectiveChief complaint:Patient is doing great this morning with no acute complaint Objective GeneralVS/I O:Vital Signs: Date Time Temp Pulse Resp B/P B/P Pulse O2 O2 Flow FiO2 Mean Ox Delivery Rate 09/04 1150 98.4 86 18 99/66 76.8 99 09/04 0816 97.5 109 14 100/63 74.9 99 Room air 09/04 0335 99.0 94 16 119/71 87.3 99 Room air 09/03 2349 99.0 95 16 114/69 83.6 99 Room air 09/03 1928 100.0 94 16 112/67 81.9 97 Room air 09/03 1635 100.6 102 16 115/71 85.3 99 Room air 24 hour I O ending at 0700: 09/04 0700 09/03 1900 Intake Total Output Total 1900 150 Balance -1900 -150 Number 1 Bowel Movements Output, 150 Drainage Output, Urine 1900 PATIENT WEIGHT: Weight (lb): 177Weight (oz): 14.61Weight (kg): 80.286 Medications:Active Meds + DC'd Last 24 HrsMagnesium Oxide (MAG-OX 400) 800 MG DAILY PO Insulin Human Lispro (HUMALOG) 2 UNIT AC SUBQ Magnesium Sulfate (MAGNESIUM SULFATE 4GM/SWFI 100ML) 100 ML ONCE ONE IV (DC) Potassium Chloride (K-CHAPITO 20 MEQ PACKET) 40 MEQ DAILY PO Metoprolol Tartrate (LOPRESSOR) 50 MG BID PO Collagenase (SANTYL 2GM TOPICAL) 1 APPLIC DAILY TOPICAL Mupirocin (BACTROBAN 2% 22 GM OINTMENT) 1 APPLIC BID TOPICAL Zinc Oxide (ZINC OXIDE 30 GM OINTMENT) 1 APPLIC BID TOPICAL Amiodarone HCl (CORDARONE) 200 MG BID 9A 5P FEED-TUBE Apixaban (ELIQUIS 5MG TABLET) 5 MG BID 9A 5P PO Pantoprazole (PROTONIX) 40 MG BID AC PO Insulin Glargine (Semglee) 20 UNIT DAILY SUBQ Tamsulosin HCl (Flomax 0.4 mg) 0.4 MG PC BK PO Insulin Human Lispro (HUMALOG) 0 AC HS SUBQ Atorvastatin Calcium (LIPITOR) 40 MG BEDTIME PO Lactulose (LACTULOSE) 20 GM Q12HR PO Senna/Docusate Sodium (SENOKOT S) 1 TAB Q12HR PO Allopurinol (ZYLOPRIM) 300 MG DAILY PO Aspirin (ASPIRIN) 81 MG DAILY PO Acetaminophen (TYLENOL) 650 MG Q6H PRN PRN PO Bisacodyl (DULCOLAX) 10 MG DAILY PRN PRN RECTAL Polyethylene Glycol (MIRALAX) 17 GM Q12H PO Dextrose/Water (DEXTROSE 10% IN WATER) 125 ML ASDIR PRN IV (CKD) Dextrose/Water (DEXTROSE 10% IN WATER) 250 ML ASDIR PRN IV (CKD) Glucagon (GLUCAGON) 1 MG ASDIR PRN IM Sodium Chloride (SODIUM CHLORIDE 0.9%) 250 ML BOLUS PRN IV Latanoprost (XALATAN 2.5 ML OPHTH SOLN) 1 DROP BEDTIME EACH EYE Timolol Maleate (TIMOPTIC 0.5% 5 ML OPHTH SOLN) 1 DROP BID EACH EYE Brimonidine Tartrate (Alphagan-P 0.2% 5 ML OPHTH SOLN) 1 DROP Q8HR EACH EYE Hydralazine HCl (APRESOLINE) 10 MG Q6H PRN PRN IV Ondansetron HCl (ZOFRAN) 4 MG Q4H PRN PRN IV Physical ExamGeneral appearance: alert, awakeHead/Eyes: atraumatic, normocephalic, PERRLAENT: moist mucosal membranes, normal dentitionNeck: full range of motion, non-tender, no JVDCardiovascular: normal heart sounds, regular rate rhythmRespiratory: aerating well, symmetric expansion, no distressAbdomen: non-tender, normal bowel sounds, jtube present with minimal collection (liver abscess drains in place)Genitourinary: no bladder distention, no flank painExtremities: no clubbing, no cyanosisMusculoskeletal: no muscle spasmNeuro/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: abnormal speech, disoriented, alert ResultsFindings/Data:Laboratory Tests 09/04 09/04 09/03 09/03 1148 0817 2015 1636 Chemistry POC Glucose (70 - 110 MG/DL) 166 H 158 H 223 H 177 H Diagnosis, Assessment PlanProblem List/A P: 1. Acute cholangitis 2. Elevated LFTs 3. Liver abscess 4. Failure to thrive Free Text DxA P NotesFree text DxA P notes:68-year-old male admitted with abdominal pain, noted with NSTEMI, s/p stent placement to diagonal artery on 07/02/23. Still need staged PCI to RCA. Patient was noted with a liver abscess, seen by general surgery and GI, drain was placedby IR, has been tolerating antibiotics well. Patient was noted with some anemia, EGD was unremarkable but for gastric ulcers with no active bleeding.* Appreciated input from general surgery, GI, cardiology, and ID* Continue on PPI* Awaiting liver drain removal today* Encourage oral intake and therapy* is at the bedside and all concerns addressed* is considering taking patient home with home health* See my DC summary from 08/22 for details at 1325 RPT #:[id number] OF REPORTPRProgress [id number]:24:00G.[id number] for patient iephHSAJUZRPUHOSHK2220-21-44C99:25:55 [facility] 2023-09-05 13:12:00 [id number] UtsGimZ2UZFHR3UCsVP EgpiBhRc6EPfAlgzl5943-77-77I67:12:00 [facility] ([facility])Endocrinology Progress NoteREPORT#:[id number] REPORT STATUS: SignedREPORT INITIALIZATION DATE:09/05/23 TIME: 1312 PATIENT: MISSY CANALES UNIT #: [id number]#: [id number] [address] [birth year] AGE: 68 SEX: M ATTEND: Raphael Ly MDADM AUTHOR: Agus Duckworth APRNNPREPT SERVICE DT/TIME: 09/05/23 1130* ALL edits or amendments must be made on the electronic/computer document * SubjectiveChief complaint:f/u DM IIlabile dietawaiting SNF placement Objective GeneralVS:Last Documented: Result Date Time Pulse Ox 99 09/04 1150 B/P 99/66 09/04 1150 B/P Mean 76.8 09/04 1150 Temp 98.4 09/04 1150 Pulse 86 09/04 1150 Resp 18 09/04 1150 O2 Delivery Room air 09/04 0816 O2 Flow Rate 2 08/27 1022 FiO2 40 08/07 0752 PATIENT WEIGHT: Weight (lb): 177Weight (oz): 14.61Weight (kg): 80.286 Medications:Active Meds + DC'd Last 24 HrsMagnesium Oxide (MAG-OX 400) 800 MG DAILY PO Insulin Human Lispro (HUMALOG) 2 UNIT AC SUBQ Magnesium Sulfate (MAGNESIUM SULFATE 4GM/SWFI 100ML) 100 ML ONCE ONE IV (DC) Potassium Chloride (K-CHAPITO 20 MEQ PACKET) 40 MEQ DAILY PO Metoprolol Tartrate (LOPRESSOR) 50 MG BID PO Collagenase (SANTYL 2GM TOPICAL) 1 APPLIC DAILY TOPICAL Mupirocin (BACTROBAN 2% 22 GM OINTMENT) 1 APPLIC BID TOPICAL Zinc Oxide (ZINC OXIDE 30 GM OINTMENT) 1 APPLIC BID TOPICAL Amiodarone HCl (CORDARONE) 200 MG BID 9A 5P FEED-TUBE Apixaban (ELIQUIS 5MG TABLET) 5 MG BID 9A 5P PO Pantoprazole (PROTONIX) 40 MG BID AC PO Insulin Glargine (Semglee) 20 UNIT DAILY SUBQ Tamsulosin HCl (Flomax 0.4 mg) 0.4 MG PC BK PO Insulin Human Lispro (HUMALOG) 0 AC HS SUBQ Atorvastatin Calcium (LIPITOR) 40 MG BEDTIME PO Lactulose (LACTULOSE) 20 GM Q12HR PO Senna/Docusate Sodium (SENOKOT S) 1 TAB Q12HR PO Allopurinol (ZYLOPRIM) 300 MG DAILY PO Aspirin (ASPIRIN) 81 MG DAILY PO Acetaminophen (TYLENOL) 650 MG Q6H PRN PRN PO Bisacodyl (DULCOLAX) 10 MG DAILY PRN PRN RECTAL Polyethylene Glycol (MIRALAX) 17 GM Q12H PO Dextrose/Water (DEXTROSE 10% IN WATER) 125 ML ASDIR PRN IV (CKD) Dextrose/Water (DEXTROSE 10% IN WATER) 250 ML ASDIR PRN IV (CKD) Glucagon (GLUCAGON) 1 MG ASDIR PRN IM Sodium Chloride (SODIUM CHLORIDE 0.9%) 250 ML BOLUS PRN IV Latanoprost (XALATAN 2.5 ML OPHTH SOLN) 1 DROP BEDTIME EACH EYE Timolol Maleate (TIMOPTIC 0.5% 5 ML OPHTH SOLN) 1 DROP BID EACH EYE Brimonidine Tartrate (Alphagan-P 0.2% 5 ML OPHTH SOLN) 1 DROP Q8HR EACH EYE Hydralazine HCl (APRESOLINE) 10 MG Q6H PRN PRN IV Ondansetron HCl (ZOFRAN) 4 MG Q4H PRN PRN IV Dietitian nutrition assessmentThe data set between the solid lines has been imported from the dietitian's assessment. BMI Calculated: 27.7Nutrition related diagnosis: OverweightNutrition diagnosis details: BMI 25-29.9Nutrition problem: Increased nutrient needsNutrition etiology: Decreased mobilityNutrition signs and symptoms: ENTERAL NUTRITION TO MEET , ENERGY NEEDS , (DIET ADVANCED TO PUREED AND, TOLERATED.), Pressure injuryNutrition prescription: 1. RECOMMEND PUREED CCD5 DIET. 2. PROVIDE GLUCERNA TID WITH MEALS/SAMEER BID 3. MONITOR PO, WT, LABS, BM.Dietitian name: Rohan Sarah, DIETAssessment completed: 09/05/23 Physical ExamGeneral appearance: alert, awakeHEENT: atraumatic, clear cornea, normocephalicNeck: suppleCardiovascular: regular rate rhythmRespiratory: on oxygenAbdomen: softGenitourinary: not indicatedExtremities: warmNeuro/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: alertSkin: warmFindings/data:Laboratory Tests: 09/04 09/04 09/03 09/03 114 082015 163 Chemistry POC Glucose (70 - 110 MG/DL) 166 H 158 H 223 H 177 H Laboratory Tests: 09/04 09/04 09/03 09/03 114 [id number] 163 Chemistry POC Glucose (70 - 110 MG/DL) 166 H 158 H 223 H 177 H Diagnosis, Assessment PlanFree Text A P:1.DM [id number] 8.2adjust Lantus adjust Humalog monitor glucose diabetic diet DC Plan: Lantus, Humalog, follow at next available appointment. 2.Abnormal thyroid functions 08/06 TSH 0.07 FT4 1 recheck in a couple of days 3.Suspected ischemic strokeMRI brain without contrastEchocardiogramTelemetryneurology following 4.Coronary artery diseasePCI on July 03, 2023Echocardiogram preserved LVEFdual antiplateletscardiology following 5. Elevated LFTsGI following 6.MRCP with complex cystic fluid collectionpost drainage surgery following at 1226 at 8048 RPT #:[id number] OF REPORTPRProgress pqfb7918-77-98F82:12:00G.[id number] for patient ltxxJSITPESGHLLZMY6542-01-87Y14:26:21 [facility] 2023-09-05 11:09:00 [id number]sQsj GU58u7kBX7OtS8p9BcE tsl779QPNspFcmPVq7971-15-72J71:09:00 [facility] ([facility])Palliative Care Progress NoteREPORT#:[id number] REPORT STATUS: SignedREPORT INITIALIZATION DATE:09/05/23 TIME: 110 PATIENT: MISSY CANALES UNIT #: [id number]#: [id number] [address] [birth year] AGE: 68 SEX: M ATTEND: Raphael Ly AUTHOR: Glenny Mclaughlin FNPREPT SERVICE DT/TIME: 09/05/23 1109* ALL edits or amendments must be made on the electronic/computer document * Objective GeneralVS:Last Documented: Result Date Time Pulse Ox 99 09/04 0816 B/P 100/63 09/04 0816 B/P Mean 74.9 09/04 0816 O2 Delivery Room air 09/04 0816 Temp 36.4 09/04 0816 Pulse 109 09/04 0816 Resp 14 09/04 0816 O2 Flow Rate 2 08/27 1022 FiO2 40 08/07 0752 PATIENT WEIGHT: Weight (lb): 177Weight (oz): 14.61Weight (kg): 80.286 Diagnosis, Assessment PlanHospital course to date:Patient seen and examined. Spoke with Ms. Canales regarding goals of care including plan to possibly transfer to skill nursing facility versus palliative care versus hospice. She stated, "she needs additional time and does not want to have discussion right now" I will continue to support the patient and family during this difficult time. Thank you for allowing me to assist in the care of Mr. Missy Canales. Time spent - 1730 - 1800 - 30 minutes. 08-22-2023 Patient seen and examined. Spoke with Ms. Canales regarding goals of care including plan to possibly transfer to skill nursing facility versus palliative care versus hospice. She stated, "I will check out the senior care facilities today and need additional time". I will continue to support the patient and family during this difficult time. Thank you for allowing me to assist in the care of Mr. Missy Canales. Time spent - 1130 - 1200 - 30 minutes. 08-23-2023 Patient seen and examined. Spoke with Ms. Canales at bedside regarding goals of care including plan to possibly transfer to skill nursing facility versus palliative care versus hospice. She stated, "He is going to [facility] then to rehab". Explained the benefits of oupatient palliative care and discussed advance directives including living will and MPOA if he is oriented to make decisions. No changes at this time. I will continue to support the patient and family during this difficult time. Thank you for allowing me to assist in the care of Mr. Missy Canales. Time spent - 1730 - 1800 - 30 minutes. 08-27-2023 Patient seen and examined. Spoke with Ms. Canales regarding goals of care - she intends to have her spouse go to SNF. I will continue to support the patient and family during this difficult time. Thank you for allowing me to assist in the care of Mr. Missy Canales. Time spent - 1330 - 1400 - 30 minutes. 08-28-2023 Patient seen and examined. Spoke with Ms. Canales regarding goals of care - no changes in GOC plan to discharge to SNF. Case management assisting family with SNF. I will continue to support the patient and family during this difficult time. Thank you for allowing me to assist in the care of Mr. Missy Canales. Time spent - 1430 - 1500 - 30 minutes. 08-29-2023 Patient seen and examined. Spoke with Ms. Canales regarding goals of care - no changes in GOC plan to discharge to SNF. I will continue to support the patient and family during this difficult time. Thank you for allowing me to assist in the care of Mr. Missy Canales. Time spent - 30 minutes 09-04-2023 Patient seen and examined. no changes in GOC plan to discharge to SNF accordingto patient's spouse. I will continue to support the patient and family during this difficult time. Thank you for allowing me to assist in the care of Mr. Parikh. Time spent - 30 minutes 09-05-2023 Patient seen and examined. Patient's spouse at bedside reports plan for patientto go to SNF . I will continue to support the patient and family during this difficult time. Thank you for allowing me to assist in the care of Mr. Missy Canales. Time spent 0930 - 1000 - 30 minutes Quality Current MedicationsCurrent medication review:I attest that the foregoing medication list in the medical record is true, accurate, and complete to the best of my knowledge. Advanced Care Plan 65 or OlderDiscussed with: patient, surrogate decis. maker at 1730 RPT #:[id number] OF REPORTPRProgress mzwd5951-05-72Q54:09:00G.[id number] for patient pmkwGBCMGCRUVKNYTH2093-53-02N05:30:28 [facility] 2023-09-05 08:56:00 [id number]/WjPtc oeVajOuuRMfjrHgNBwq evtN2cPGmxlBhvUvR0779-93-31I12:56:00 [facility] Progress NoteREPORT#:[id number] REPORT STATUS: SignedREPORT INITIALIZATION DATE:09/05/23 TIME: 855 PATIENT: MISSY CANALES UNIT #: [id number]#: [id number] [address] [birth year] AGE: 68 SEX: M ATTEND: Raphael Ly MDA AUTHOR: Lisa Cancino MDREPT SERVICE DT/TIME: 09/05/23 0856* ALL edits or amendments must be made on the electronic/computer document * SubjectiveChief complaint:Elevated LFtsHPI:68 year old man s/p cardiac stents 2 weeks ago who was sent to the hospital withelevated LFTs and possible acute cholecystitis. Pt had a stenet recently placed and was started on DAPT. Pt had labs showing elevated LFTs and was sent here forevaluation. Labs showed leukocytosis 15k. Elevated Tbili 3.7. Dbili 2.8. AST 79,ALT 105 and ALP 225. RUQ U/S showed possible cholecystitis and normal CBD of 4 mm in diatmeter. Pt denies pain. No dark urine or peyton-color stool 08/03; patient feels well. MRCP reviewed. No choledocholithiasis. Fluid collection at the liver could be related secondary to gallbladder perforation. LFTs and white count are down. 08/04: Plan for IR for cholecystostomy tube placement. LFts stable. WBC elevated.Was confused this am but improving. NO pain. No fevers. Added flagyl to his Abx regimen 08/05: NO new complaints. IR for abscess drain and cholecystostomy tube 08/06: Transferred overnight to ICU due to AMS. S/P IR with cholecystostomy tube and abscess drain 08/07: severely constipated. NGT in with feeds. drains in. More awake today and oriented. right sided weakness likely acute stroke. MRI brain reviewed- small stroke. KUB reviewed 08/08: Doing better according to . Sheldon removed. Still on feeds 08/09: Feeds at 20 ml/hr. Still no BM 08/10-Had BM last night. Denies n/v/abd pain 08/11-Patient dislodged DH. DH was replaced. +BM today 08/12: has been having BM during the weekend 08/13: No new events 08/14: eating and moving bowels. 08/15: doing well. 08/26: I was called again to evaluate pt. He has melena-like stool and dropped hisH/H. Pt is on DAPT 08/27: S/P EGD showing gastric ulcer in the incisura. flat pigmentation without high rebleeding stigmata. 08/28: H/H stable. Family at bedside. NO melena 08/29: Stbale H/H. NO family at bediside this am 08/30: Stable H/H. 08/31-No GI complaints, family at bedside. HGB 8.3 09/01-HGB 8.8. Last BM today 09/02: Stable H/H. 09/03: H/H stable. Liver drain is no longer draining. cholecystostomy tube draining 09/04:Plan to remove liver drain. H/H stable. No melena Objective Physical ExamHEENT: EOMICardiovascular: normal heart soundsRespiratory: clear to auscultationAbdomen: non-tenderExtremities: no edemaSkin: dry, normal temperature Diagnosis, Assessment PlanProblem List/A P: 1. Elevated LFTs Free Text A P:cholestatic pattern. CBD normal on RuQ U/S MRCP showed no evidence of choledocholithiasis.Large fluid collection within the liver could be secondary to gallbladder perforation.Recommend surgical evaluation again.Continue with antibiotics. Add flagyl s/p cholecystostomy tube and drainage of cystic fluid collection. Awaiting culture EGD showed gastric ulcer with flat pigmentPPI PO BID Will need repeat EGD in 6 weeks to confirm healing and rule out malignancyConsider removing hepatic drainWill follow at 1250 RPT #:[id number] OF REPORTPRProgress fsht8315-20-21X03:56:00G.[id number] for patient sqcdCPMFJGPVTJOVUF5892-81-01Y40:50:57 [facility] 2023-09-05 07:14:00 [id number]+qk+paE4wFe3wnsg8OLA vvLb56XV9y/xQM8Renc GYIqKyOdubRvAokad8308-72-77B60:14:00 [facility] ([facility])Cardiology Progress NoteREPORT#:[id number] REPORT STATUS: SignedREPORT INITIALIZATION DATE:09/05/23 TIME: 713 PATIENT: MISSY CANAELS UNIT #: [id number]#: [id number] [address] [birth year] AGE: 68 SEX: M ATTEND: Raphael Ly MDADM AUTHOR: Esther BucknerCNPREPT SERVICE DT/TIME: 09/05/23713* ALL edits or amendments must be made on the electronic/computer document * SubjectivePatient reports:No: complaints. Objective GeneralVS/I O:24 hour I O ending at 0700: 09/04 0700 04/09 1900 Intake Total Output Total 1900 150 Balance -1900 -150 Number 1 Bowel Movements Output, 150 Drainage Output, Urine 1900 Vital Signs: Date Time Temp Pulse Resp B/P B/P Pulse O2 O2 Flow FiO2 Mean Ox Delivery Rate 09/04 0335 37.2 94 16 119/71 87.3 99 Room air 09/03 2349 37.2 95 16 114/69 83.6 99 Room air 09/03 1928 37.8 94 16 112/67 81.9 97 Room air 09/03 1635 38.1 102 16 115/71 85.3 99 Room air 09/03 1210 37.4 94 16 129/73 92.0 100 Room air PATIENT WEIGHT: Weight (lb): 177Weight (oz): 14.61Weight (kg): 80.286 Medications:Active Meds + DC'd Last 24 HrsMagnesium Oxide (MAG-OX 400) 800 MG DAILY PO Insulin Human Lispro (HUMALOG) 2 UNIT AC SUBQ Magnesium Sulfate (MAGNESIUM SULFATE 4GM/SWFI 100ML) 100 ML ONCE ONE IV (DC) Potassium Chloride (K-CHAPITO 20 MEQ PACKET) 40 MEQ DAILY PO Metoprolol Tartrate (LOPRESSOR) 50 MG BID PO Collagenase (SANTYL 2GM TOPICAL) 1 APPLIC DAILY TOPICAL Mupirocin (BACTROBAN 2% 22 GM OINTMENT) 1 APPLIC BID TOPICAL Zinc Oxide (ZINC OXIDE 30 GM OINTMENT) 1 APPLIC BID TOPICAL Amiodarone HCl (CORDARONE) 200 MG BID 9A 5P FEED-TUBE Apixaban (ELIQUIS 5MG TABLET) 5 MG BID 9A 5P PO Pantoprazole (PROTONIX) 40 MG BID AC PO Insulin Glargine (Semglee) 20 UNIT DAILY SUBQ Tamsulosin HCl (Flomax 0.4 mg) 0.4 MG PC BK PO Insulin Human Lispro (HUMALOG) 0 AC HS SUBQ Atorvastatin Calcium (LIPITOR) 40 MG BEDTIME PO Lactulose (LACTULOSE) 20 GM Q12HR PO Senna/Docusate Sodium (SENOKOT S) 1 TAB Q12HR PO Allopurinol (ZYLOPRIM) 300 MG DAILY PO Aspirin (ASPIRIN) 81 MG DAILY PO Acetaminophen (TYLENOL) 650 MG Q6H PRN PRN PO Bisacodyl (DULCOLAX) 10 MG DAILY PRN PRN RECTAL Polyethylene Glycol (MIRALAX) 17 GM Q12H PO Dextrose/Water (DEXTROSE 10% IN WATER) 125 ML ASDIR PRN IV (CKD) Dextrose/Water (DEXTROSE 10% IN WATER) 250 ML ASDIR PRN IV (CKD) Glucagon (GLUCAGON) 1 MG ASDIR PRN IM Sodium Chloride (SODIUM CHLORIDE 0.9%) 250 ML BOLUS PRN IV Latanoprost (XALATAN 2.5 ML OPHTH SOLN) 1 DROP BEDTIME EACH EYE Timolol Maleate (TIMOPTIC 0.5% 5 ML OPHTH SOLN) 1 DROP BID EACH EYE Brimonidine Tartrate (Alphagan-P 0.2% 5 ML OPHTH SOLN) 1 DROP Q8HR EACH EYE Hydralazine HCl (APRESOLINE) 10 MG Q6H PRN PRN IV Ondansetron HCl (ZOFRAN) 4 MG Q4H PRN PRN IV Physical ExamGeneral appearance: awake, no acute distressENT: normal noseNeck: non-tenderCardiovascular: CV assessment: ectopy, irregular rhythmRespiratory: decreased breath sounds, no distressAbdomen: softGenitourinary: no urinary catheterUpper extremity: UE assessment: normal capillary refill, normal temperatureLower extremity: LE assessment: no edemaMusculoskeletal: decreased ROMNeuro/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: right hemiparesis, alertSkin: dryPsychiatry: normal affect, normal mood ResultsFindings/Data:Laboratory Tests 09/03 1636 1211 1047 Chemistry Sodium (134 - 147 mEq/L) 145 Potassium (3.4 - 5.0 mEq/L) 3.8 Chloride (100 - 108 mEq/L) 116 H Carbon Dioxide (21 - 33 mEq/l) 22 Anion Gap (0 - 20) 10 BUN (7 - 25 mg/dL) 17 Creatinine (0.6 - 1.3 mg/dL) 0.9 Glomerular Filtr Rate (70 - 80) 91.9 H Glucose (77 - 141 mg/dL) 231 H POC Glucose (70 - 110 MG/DL) 223 H 177 H 179 H Calcium (8.0 - 10.5 mg/dL) 8.3 Magnesium (1.6 - 2.6 mg/dL) 1.57 L Laboratory Tests 09/03 1047 Chemistry Magnesium (1.6 - 2.6 mg/dL) 1.57 L Results: labs reviewed, vital signs reviewed, rhythm personally rev'd Diagnosis, Assessment PlanPlan discussed with: patient, spouse/partner, collaborating MD, nurse Free Text DxA P NotesFree Text DxA P Notes:1. Coronary artery disease s/p recent PCI/TERESA to diagonal artery* Troponin trend is flat* Hx of CABG (2000)* s/p stent placement to diagonal artery on 07/02/23. Still need staged PCI to RCA. * Echocardiogram preserved LVEF.* PPI: lansoprazole 30 mg BID* Plavix dc'd (08/30/23), switched to Eliquis (afib) and ASA - tx decision discussed in depth with 2. Elevated LFTs/acute cholecystitis/liver abscess* s/p cholecystostomy tube placement. * ID on board managing antibiotic* GI on board* s/p EGD: nonbleeding ulcer 3. AMS: MRI brain showed small subacute ischemia in the L coronary radiata * MRI of the brain unchanged 4. Tachycardia with PVCs and PACs/Paroxysmal atrial fibrillation* Tele: frequent PVCs and PACs and intermittent afb * JQH7IQ3-KHNq score 6, recommend AC * HASBLED 4* continue Eliquis 5 mg BID plus ASA 81 mg daily. * continue amiodarone 200 mg BID* continue metoprolol tartrate 50 mg BID 5. Anemia* hgb 6.3 up to 8.9->8.6->6.9->7->8.7->8.6->8.3->8.8* s/p 2 units PRBCs 08/20/23, 1 unit PRBC 08/26/23* On PPI* GI on board, s/p EGD showed nonbleeding ulcer 6. Hypokalemia/hypomagnesemia* low Mag replaced yesterday* continue KCL 40 mg daily* continue Mag oxide 800 mg daily* encourage oral intake Waiting for placement.Medical decision making by Dr. Daniel. at 1324 RPT #:[id number] OF REPORTPRProgress vaci1917-14-63T87:14:00G.[id number] for patient bixpUNQQKDLDIWOQWI7819-69-09J14:25:25 [facility] 2023-09-05 03:34:00 [id number]vkhG 3F5N4WceQ9xr3plGkAD uQ2Il/hfUVKDo8oK41641-51-45R34:34:00 [facility] ([facility])Infectious Dis. Progress NoteREPORT#:[id number] REPORT STATUS: SignedREPORT INITIALIZATION DATE:09/05/23 TIME: 333 PATIENT: MISSY CANLAES UNIT #: [id number]#: [id number] [address]OB: [birth year] AGE: 68 SEX: M ATTEND: Raphael Ly AUTHOR: Kajal Nguyen MDREPT SERVICE DT/TIME: 09/05/23333* ALL edits or amendments must be made on the electronic/computer document * SubjectiveChief complaint:Follow-up on bacteremia, hepatic abscess, cholecystitis, aspiration pneumoniaHPI:Review of systems is somewhat limited due to patient's limited responses. Nonetheless, he appears comfortable. present at bedside. No major overnight events. Objective Physical ExamWound/incision: Location:cholecystostomy tube and RUQ drain in placeHead/Eyes: atraumatic, normocephalicENT: moist mucosal membranesNeck: no JVDCardiovascular: regular rate rhythm, no murmurRespiratory: clear to auscultation, symmetric expansionAbdomen: non-tender, soft, no distention, percutaneous drains in place in RUQExtremities: no cyanosis, no edemaNeuro/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 Canales is a 68-year-old male with PMH of HTN, DMII, CAD s/p stent who came to [facility] initially with N/V and abdominal pain. His pain was started 2 days prior to admission. His work up showed elevated LFTs, bilirubin, troponin. His US abdomen showed cholelithiasis with distended gallbladder including material at the gallbladder neck concerning for impacted stone. Patient started on empiric antibiotics and had cultures done with blood culture showing gram negative bacilli. Patient has been febrile and tachycardic while here. GI and general surgery are consulted. Patient was found to have acute cholecystitis with a liver abscess. He had a drain in the gallbladder and in the abscess placed. Blood culture eventually grew Citrobacter and so did the abscess. *Fever--Recurrent after improvement--UA via straight cath (-)--Covid (-)--Flu (-)--F/U CT A/P, decreased liver absces; (+) LLL infiltrates c/w PNA*PNA--CT LLL infiltrates c/w aspiration*Bacteremia--Citrobacter--Source: Biliary*Liver abscess--MRCP showed 4.6 x 3.6 x 3.0 thick walled cystic lesion/fluid collection liver abutting GB fossa--S/P IR drain 08/05, cx CitrobacterCt scan of the abdomen showed no residuasl abscesson 08/29/23*Acute cholecystitis--S/P IR placed cholecystotomy tube ., cx Citrobacter*Acute stroke--MRI (+) subacute Left guo radiata--CTA neck (+) high grade stenosis*ARELY*DM2*HTN*CADFever: on 08/30/23 : blood cx drawn yesterday., ua and cx ordered not done Plan: -Patient has had > 7 days of piperacillin-tazobactam to cover for aspiration pneumonia.-Antibiotic treatment transitioned back to ceftriaxone and metronidazole on 08/22/2023 for coverage of liver abscess. dc iv abx if the urine cx and blood cx done on 08/30/[address] showed resolved liver abscess dced abx current antimicrobilas: none at 0949 RPT #:[id number] OF REPORTPRProgress nioo6466-38-71P32:34:00G.[id number] for patient ziplYVTIFDFZSJKQNB1920-10-81O84:49:40 [facility] 2023-09-04 20:22:00 [id number]ee XDmddTN/5cXUlM1Ta5f HUP8m+Ja52TWCLQpn0734-46-11M07:22:00 [facility] ([facility])Wound Care Progress NoteREPORT#:[id number] REPORT STATUS: SignedREPORT INITIALIZATION DATE:09/04/23 TIME: 2021 PATIENT: MISSY CANALES UNIT #: [id number]#: [id number] [address] [birth year] AGE: 68 SEX: M ATTEND: Raphael Ly MDADM AUTHOR: Lilly Riggins APRNNPREPT SERVICE DT/TIME: 09/04/232021* ALL edits or amendments must be made on the electronic/computer document * Lilly Riggins 09/04/232021:SubjectiveChief complaint:both heels and sacralHPI:68-year-old male being seen for follow-up of all his wounds. is at bedside. Objective GeneralVS:Last Documented: Result Date Time Pulse Ox 97 09/04 1927 B/P 112/67 09/04 1927 B/P Mean 81.9 09/04 1927 O2 Delivery Room air 09/04 1927 Temp 37.8 09/04 1927 Pulse 94 09/04 1927 Resp 16 09/04 1927 O2 Flow Rate 2 08/27 1022 FiO2 40 08/07 0752 PATIENT WEIGHT: Weight (lb): 177Weight (oz): 14.61Weight (kg): 80.286 Medications:Active Meds + DC'd Last 24 HrsMagnesium Oxide (MAG-OX 400) 800 MG DAILY PO Insulin Human Lispro (HUMALOG) 2 UNIT AC SUBQ Magnesium Sulfate (MAGNESIUM SULFATE 4GM/SWFI 100ML) 100 ML ONCE ONE IV (DC) Potassium Chloride (K-CHAPITO 20 MEQ PACKET) 40 MEQ DAILY PO Metoprolol Tartrate (LOPRESSOR) 50 MG BID PO Collagenase (SANTYL 2GM TOPICAL) 1 APPLIC DAILY TOPICAL Mupirocin (BACTROBAN 2% 22 GM OINTMENT) 1 APPLIC BID TOPICAL Zinc Oxide (ZINC OXIDE 30 GM OINTMENT) 1 APPLIC BID TOPICAL Amiodarone HCl (CORDARONE) 200 MG BID 9A 5P FEED-TUBE Apixaban (ELIQUIS 5MG TABLET) 5 MG BID 9A 5P PO Pantoprazole (PROTONIX) 40 MG BID AC PO Insulin Glargine (Semglee) 20 UNIT DAILY SUBQ Tamsulosin HCl (Flomax 0.4 mg) 0.4 MG PC BK PO Insulin Human Lispro (HUMALOG) 0 AC HS SUBQ Atorvastatin Calcium (LIPITOR) 40 MG BEDTIME PO Lactulose (LACTULOSE) 20 GM Q12HR PO Senna/Docusate Sodium (SENOKOT S) 1 TAB Q12HR PO Allopurinol (ZYLOPRIM) 300 MG DAILY PO Aspirin (ASPIRIN) 81 MG DAILY PO Acetaminophen (TYLENOL) 650 MG Q6H PRN PRN PO Bisacodyl (DULCOLAX) 10 MG DAILY PRN PRN RECTAL Polyethylene Glycol (MIRALAX) 17 GM Q12H PO Dextrose/Water (DEXTROSE 10% IN WATER) 125 ML ASDIR PRN IV (CKD) Dextrose/Water (DEXTROSE 10% IN WATER) 250 ML ASDIR PRN IV (CKD) Glucagon (GLUCAGON) 1 MG ASDIR PRN IM Sodium Chloride (SODIUM CHLORIDE 0.9%) 250 ML BOLUS PRN IV Latanoprost (XALATAN 2.5 ML OPHTH SOLN) 1 DROP BEDTIME EACH EYE Timolol Maleate (TIMOPTIC 0.5% 5 ML OPHTH SOLN) 1 DROP BID EACH EYE Brimonidine Tartrate (Alphagan-P 0.2% 5 ML OPHTH SOLN) 1 DROP Q8HR EACH EYE Hydralazine HCl (APRESOLINE) 10 MG Q6H PRN PRN IV Ondansetron HCl (ZOFRAN) 4 MG Q4H PRN PRN IV Dietitian Nutrition assessmentThe data set between the solid lines has been imported from the dietitian's assessment. BMI Calculated: 27.7Nutrition related diagnosis: OverweightNutrition diagnosis details: BMI 25-29.9Nutrition problem: Inadequate oral intakeNutrition etiology: PT LETHARGIC /SWALLOWING Nutrition signs and symptoms: ENTERAL NUTRITION TO MEET , ENERGY NEEDS , (DIET ADVANCED TO PUREED AND, TOLERATED.)Nutrition prescription: 1. RECOMMEND PUREED CCD5 DIET. 2. PROVIDE GLUCERNA TID WITH MEALS/SAMEER BID 3. MONITOR PO, WT, LABS, BM.Dietitian name: Rohan Sarah, DIETAssessment completed: 08/31/23 Physical ExamGeneral appearance: alertRespiratory: no distress Wound AssessmentWound Assessment 1: Type/cause: pressure Wound location: heel (right and left) Site condition: necrotic tissue Stage of pressure ulcer: unstageableWound Assessment 2: Type/cause: pressure Wound location: sacral region Site condition: dehiscence, drainage Stage of pressure ulcer: stage III Wound margins: open ResultsFindings/Data:Laboratory Tests: 09/03 09/03 09/03 09/03 09/02 1636 1211 1047 0704 2031 Chemistry Sodium (134 - 147 mEq/L) 145 Potassium (3.4 - 5.0 mEq/L) 3.8 Chloride (100 - 108 mEq/L) 116 H Carbon Dioxide (21 - 33 mEq/l) 22 Anion Gap (0 - 20) 10 BUN (7 - 25 mg/dL) 17 Creatinine (0.6 - 1.3 mg/dL) 0.9 Glomerular Filtr Rate (70 - 80) 91.9 H Glucose (77 - 141 mg/dL) 231 H POC Glucose (70 - 110 MG/DL) 177 H 179 H 162 H 249 H Calcium (8.0 - 10.5 mg/dL) 8.3 Magnesium (1.6 - 2.6 mg/dL) 1.57 L Diagnosis, Assessment PlanProblem List/A P: 1. Pressure ulcer of sacral region, stage 3 2. Pressure ulcer, heel, right, unstageable 3. Pressure ulcer, heel, left, unstageable 4. Anemia 5. Failure to thrive Free Text A P:09/02/2023: Will continue with the Santyl to the heel areas. Will continue with the gentamicin to the sacral area. Anemia, which will impede wound healing, defer to the primary care team. Albumin is on the lower end which will also impede wound healing. Recommend dietary input. 09/03/2023: Patient currently in bed, no issues reported overnight; patient's blood sugars between 150-240s. Patient is currently taking Sameer, he is anemic and his albumin in low. Will continue Santyl in the bilateral heels and gentamicin in the sacral areas. 09/04/2023: Patient currently in bed, no issues reported overnight; patient's blood sugars between are stable today. Patient is currently taking Sameer. Will continue Santyl in the bilateral heels and gentamicin in the sacral areas. Tano Sanchez 09/09/232128:AttestationsAttestation needed: supervising physician Physician AttestationAgree w/findings plan:Agree with the findings and plan as documented by ANGEL Lindsey* my personal evaluation isReviewed the history, physical findings, management and agree with the plan as dictated by ANGEL Lindsey at 202 at 2133 RPT #:[id number] OF REPORTPNProcedure korb2860-38-34O83:22:00G.[id number] for patient searEZMCJEVTKNQYZE3801-25-64V25:26:26 [facility] 2023-09-04 14:55:00 [id number]c0Je meCXh12Q0/nIKuCGH58 NyXdPVzylGEDuLGLv1035-60-50O25:55:00 [facility] Progress NoteREPORT#:[id number] REPORT STATUS: SignedREPORT INITIALIZATION DATE:09/04/23 TIME: 1454 PATIENT: MISSY CANALES UNIT #: [id number]#: [id number] [address] [birth year] AGE: 68 SEX: M ATTEND: Raphael Ly AUTHOR: Glenny Mclaughlin FNPREPT SERVICE DT/TIME: 09/04/23 0726* ALL edits or amendments must be made on the electronic/computer document * Objective GeneralVS:Last Documented: Result Date Time Pulse Ox 100 09/03 1210 B/P 129/73 09/03 1210 B/P Mean 92.0 09/03 1210 O2 Delivery Room air 09/03 1210 Temp 37.4 09/03 1210 Pulse 94 09/03 1210 Resp 16 09/03 1210 O2 Flow Rate 2 08/27 1022 FiO2 40 08/07 0752 PATIENT WEIGHT: Weight (lb): 177Weight (oz): 14.61Weight (kg): 80.286 Diagnosis, Assessment PlanHospital course to date:Patient seen and examined. Spoke with Ms. Canales regarding goals of care including plan to possibly transfer to skill nursing facility versus palliative care versus hospice. She stated, "she needs additional time and does not want to have discussion right now" I will continue to support the patient and family during this difficult time. Thank you for allowing me to assist in the care of Mr. Missy Canales. Time spent - 1730 - 1800 - 30 minutes. 08-22-2023 Patient seen and examined. Spoke with Ms. Canales regarding goals of care including plan to possibly transfer to skill nursing facility versus palliative care versus hospice. She stated, "I will check out the senior care facilities today and need additional time". I will continue to support the patient and family during this difficult time. Thank you for allowing me to assist in the care of Mr. Missy Canales. Time spent - 1130 - 1200 - 30 minutes. 08-23-2023 Patient seen and examined. Spoke with Ms. Canales at bedside regarding goals of care including plan to possibly transfer to skill nursing facility versus palliative care versus hospice. She stated, "He is going to [facility] then to rehab". Explained the benefits of oupatient palliative care and discussed advance directives including living will and MPOA if he is oriented to make decisions. No changes at this time. I will continue to support the patient and family during this difficult time. Thank you for allowing me to assist in the care of Mr. Missy Canales. Time spent - 1730 - 1800 - 30 minutes. 08-27-2023 Patient seen and examined. Spoke with Ms. Canales regarding goals of care - she intends to have her spouse go to SNF. I will continue to support the patient and family during this difficult time. Thank you for allowing me to assist in the care of Mr. Missy Canales. Time spent - 1330 - 1400 - 30 minutes. 08-28-2023 Patient seen and examined. Spoke with Ms. Canales regarding goals of care - no changes in GOC plan to discharge to SNF. Case management assisting family with SNF. I will continue to support the patient and family during this difficult time. Thank you for allowing me to assist in the care of Mr. Missy Canales. Time spent - 1430 - 1500 - 30 minutes. 08-29-2023 Patient seen and examined. Spoke with Ms. Canales regarding goals of care - no changes in GOC plan to discharge to SNF. I will continue to support the patient and family during this difficult time. Thank you for allowing me to assist in the care of Mr. Missy Canales. Time spent - 30 minutes 09-04-2023 Patient seen and examined. no changes in GOC plan to discharge to SNF accordingto patient's spouse. I will continue to support the patient and family during this difficult time. Thank you for allowing me to assist in the care of Mr. Parikh. Time spent - 30 minutes Quality Current MedicationsCurrent medication review:I attest that the foregoing medication list in the medical record is true, accurate, and complete to the best of my knowledge. Advanced Care Plan 65 or OlderDiscussed with: patient, surrogate decis. maker at 1108 RPT #:[id number] OF REPORTPRProgress kjaj1984-70-94U74:55:00G.[id number] for patient pudqTDUARQENGQYCOG0445-90-52K95:09:14 [facility] 2023-09-04 13:24:00 [id number] 27KyDpx7ojYubk9CSFn OSjEthEGmUEJZQG2X9341-11-80G39:24:00 [facility] CenterHospital[facility] Progress NoteREPORT#:[id number] REPORT STATUS: SignedREPORT INITIALIZATION DATE:09/04/23 TIME: 1323 PATIENT: MISSY CANALES UNIT #: [id number] ROOM/BED: 6617-1DOB: [birth year] AGE: 68 SEX: M ATTEND: Raphael Ly MDADM AUTHOR: Clyde Lares DOREPT SERVICE DT/TIME: 09/04/23 1324* ALL edits or amendments must be made on the electronic/computer document * SubjectiveChief complaint:Patient is doing well this morning, denies any acute complaints, oral intake is very good Objective GeneralVS/I O:Vital Signs: Date Time Temp Pulse Resp B/P B/P Pulse O2 O2 Flow FiO2 Mean Ox Delivery Rate 09/03 1210 99.3 94 16 129/73 92.0 100 Room air 09/03 0703 99.5 93 18 149/63 91.9 97 Room air 09/03 0503 99.3 98 18 115/67 82.7 97 Room air 09/02 2305 99.7 92 18 119/72 87.5 97 Room air 09/02 2032 99.3 80 18 95/57 70.1 99 Room air 09/02 1654 98.4 17 09/02 1615 102 18 125/73 90.1 97 24 hour I O ending at 0700: 09/03 0700 09/02 1900 Intake Total Output Total Balance Number 1 Bowel Movements PATIENT WEIGHT: Weight (lb): 177Weight (oz): 14.61Weight (kg): 80.286 Medications:Active Meds + DC'd Last 24 HrsMagnesium Oxide (MAG-OX 400) 800 MG DAILY PO Insulin Human Lispro (HUMALOG) 2 UNIT AC SUBQ Magnesium Sulfate (MAGNESIUM SULFATE 4GM/SWFI 100ML) 100 ML ONCE ONE IV Potassium Chloride (K-CHAPITO 20 MEQ PACKET) 40 MEQ DAILY PO Metoprolol Tartrate (LOPRESSOR) 50 MG BID PO Collagenase (SANTYL 2GM TOPICAL) 1 APPLIC DAILY TOPICAL Mupirocin (BACTROBAN 2% 22 GM OINTMENT) 1 APPLIC BID TOPICAL Zinc Oxide (ZINC OXIDE 30 GM OINTMENT) 1 APPLIC BID TOPICAL Amiodarone HCl (CORDARONE) 200 MG BID 9A 5P FEED-TUBE Apixaban (ELIQUIS 5MG TABLET) 5 MG BID 9A 5P PO Pantoprazole (PROTONIX) 40 MG BID AC PO Insulin Glargine (Semglee) 20 UNIT DAILY SUBQ Tamsulosin HCl (Flomax 0.4 mg) 0.4 MG PC BK PO Insulin Human Lispro (HUMALOG) 0 AC HS SUBQ Atorvastatin Calcium (LIPITOR) 40 MG BEDTIME PO Lactulose (LACTULOSE) 20 GM Q12HR PO Senna/Docusate Sodium (SENOKOT S) 1 TAB Q12HR PO Allopurinol (ZYLOPRIM) 300 MG DAILY PO Aspirin (ASPIRIN) 81 MG DAILY PO Acetaminophen (TYLENOL) 650 MG Q6H PRN PRN PO Bisacodyl (DULCOLAX) 10 MG DAILY PRN PRN RECTAL Polyethylene Glycol (MIRALAX) 17 GM Q12H PO Dextrose/Water (DEXTROSE 10% IN WATER) 125 ML ASDIR PRN IV (CKD) Dextrose/Water (DEXTROSE 10% IN WATER) 250 ML ASDIR PRN IV (CKD) Glucagon (GLUCAGON) 1 MG ASDIR PRN IM Sodium Chloride (SODIUM CHLORIDE 0.9%) 250 ML BOLUS PRN IV Latanoprost (XALATAN 2.5 ML OPHTH SOLN) 1 DROP BEDTIME EACH EYE Timolol Maleate (TIMOPTIC 0.5% 5 ML OPHTH SOLN) 1 DROP BID EACH EYE Brimonidine Tartrate (Alphagan-P 0.2% 5 ML OPHTH SOLN) 1 DROP Q8HR EACH EYE Hydralazine HCl (APRESOLINE) 10 MG Q6H PRN PRN IV Ondansetron HCl (ZOFRAN) 4 MG Q4H PRN PRN IV Physical ExamGeneral appearance: alert, awake, orientedHead/Eyes: atraumatic, normocephalic, PERRLAENT: moist mucosal membranes, normal dentitionNeck: full range of motion, non-tender, no JVDCardiovascular: normal heart sounds, regular rate rhythmRespiratory: aerating well, symmetric expansion, no distressAbdomen: non-tender, normal bowel sounds, jtube present with minimal collection (liver abscess drains in place)Genitourinary: no bladder distention, no flank painExtremities: no clubbing, no cyanosisMusculoskeletal: no muscle spasmNeuro/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: abnormal speech, disoriented, alert ResultsFindings/Data:Laboratory Tests 09/03 09/03 09/03 09/02 09/02 1211 1047 0704 2031 1605 Chemistry Sodium (134 - 147 mEq/L) 145 Potassium (3.4 - 5.0 mEq/L) 3.8 Chloride (100 - 108 mEq/L) 116 H Carbon Dioxide (21 - 33 mEq/l) 22 Anion Gap (0 - 20) 10 BUN (7 - 25 mg/dL) 17 Creatinine (0.6 - 1.3 mg/dL) 0.9 Glomerular Filtr Rate (70 - 80) 91.9 H Glucose (77 - 141 mg/dL) 231 H POC Glucose (70 - 110 MG/DL) 179 H 162 H 249 H 230 H Calcium (8.0 - 10.5 mg/dL) 8.3 Magnesium (1.6 - 2.6 mg/dL) 1.57 L Diagnosis, Assessment PlanProblem List/A P: 1. Acute cholangitis 2. Elevated LFTs 3. Liver abscess 4. Failure to thrive Free Text DxA P NotesFree text DxA P notes:68-year-old male admitted with abdominal pain, noted with NSTEMI, s/p stent placement to diagonal artery on 07/02/23. Still need staged PCI to RCA. Patient was noted with a liver abscess, seen by general surgery and GI, drain was placedby IR, has been tolerating antibiotics well. Patient was noted with some anemia, EGD was unremarkable but for gastric ulcers with no active bleeding.* Appreciated input from general surgery, GI, cardiology, and ID* Continue on PPI* GI recommended liver drains to be removed by IR* Liver drain removal by IR* Awaiting on morning labs* Encourage oral intake and therapy* is at the bedside and all concerns addressed* Patient is awaiting SNF placement * See my DC summary from 08/22 for details at 1326 RPT #:[id number] OF REPORTPRProgress pzvt8832-85-06K81:24:00G.[id number] for patient nzcvTVVINPMLVHRCNA0957-35-66X86:26:30 [facility] 2023-09-04 11:55:00 [id number] qZtoXT1ENgLtguwPEvl S+icV6fJRdq755MXc5741-89-06A61:55:00 [facility] ([facility])Gastroenterology Progress NoteREPORT#:[id number] REPORT STATUS: SignedREPORT INITIALIZATION DATE:09/04/23 TIME: 115 PATIENT: MISSY CANALES UNIT #: [id number]#: [id number] [address] [birth year] AGE: 68 SEX: M ATTEND: Raphael Ly AUTHOR: Lisa Cancino MDREPT SERVICE DT/TIME: 09/04/23 1155* ALL edits or amendments must be made on the electronic/computer document * SubjectiveChief complaint:Elevated LFtsHPI:68 year old man s/p cardiac stents 2 weeks ago who was sent to the hospital withelevated LFTs and possible acute cholecystitis. Pt had a stenet recently placed and was started on DAPT. Pt had labs showing elevated LFTs and was sent here forevaluation. Labs showed leukocytosis 15k. Elevated Tbili 3.7. Dbili 2.8. AST 79,ALT 105 and ALP 225. RUQ U/S showed possible cholecystitis and normal CBD of 4 mm in diatmeter. Pt denies pain. No dark urine or peyton-color stool 08/03; patient feels well. MRCP reviewed. No choledocholithiasis. Fluid collection at the liver could be related secondary to gallbladder perforation. LFTs and white count are down. 08/04: Plan for IR for cholecystostomy tube placement. LFts stable. WBC elevated.Was confused this am but improving. NO pain. No fevers. Added flagyl to his Abx regimen 08/05: NO new complaints. IR for abscess drain and cholecystostomy tube 08/06: Transferred overnight to ICU due to AMS. S/P IR with cholecystostomy tube and abscess drain 3/13: severely constipated. NGT in with feeds. drains in. More awake today and oriented. right sided weakness likely acute stroke. MRI brain reviewed- small stroke. KUB reviewed 08/08: Doing better according to . Sheldon removed. Still on feeds 08/09: Feeds at 20 ml/hr. Still no BM 08/10-Had BM last night. Denies n/v/abd pain 08/11-Patient dislodged DH. DH was replaced. +BM today 08/12: has been having BM during the weekend 08/13: No new events 08/14: eating and moving bowels. 08/15: doing well. 08/26: I was called again to evaluate pt. He has melena-like stool and dropped hisH/H. Pt is on DAPT 08/27: S/P EGD showing gastric ulcer in the incisura. flat pigmentation without high rebleeding stigmata. 08/28: H/H stable. Family at bedside. NO melena 08/29: Stbale H/H. NO family at bediside this am 08/30: Stable H/H. 08/31-No GI complaints, family at bedside. HGB 8.3 09/01-HGB 8.8. Last BM today 09/02: Stable H/H. 09/03: H/H stable. Liver drain is no longer draining. cholecystostomy tube draining Objective Physical ExamHEENT: EOMICardiovascular: normal heart soundsRespiratory: clear to auscultationAbdomen: non-tenderExtremities: no edemaSkin: dry, normal temperature Diagnosis, Assessment PlanProblem List/A P: 1. Elevated LFTs Free Text A P:cholestatic pattern. CBD normal on RuQ U/S MRCP showed no evidence of choledocholithiasis.Large fluid collection within the liver could be secondary to gallbladder perforation.Recommend surgical evaluation again.Continue with antibiotics. Add flagyl s/p cholecystostomy tube and drainage of cystic fluid collection. Awaiting culture EGD showed gastric ulcer with flat pigmentPPI PO BID Will need repeat EGD in 6 weeks to confirm healing and rule out malignancyConsider removing hepatic drainWill follow at 1156 RPT #:[id number] OF REPORTPRProgress [id number]:55:00G.[id number] for patient wkluIGOYUTOEYGNFZP1936-13-53Q58:06:49 [facility] 2023-09-04 11:50:00 [id number] nDmjQ7/XeyPN37KLq/F BvdkKQHOsKJ6So+JM0135-27-48B60:50:00 [facility])Endocrinology Progress NoteREPORT#:[id number] REPORT STATUS: SignedREPORT INITIALIZATION DATE:09/04/23 TIME: 115 PATIENT: MISSY CANALES UNIT #: [id number]#: [id number] [address] [birth year] AGE: 68 SEX: M ATTEND: Raphael Ly MDADM AUTHOR: Agus Duckworth APRNNPREPT SERVICE DT/TIME: 09/04/23 1150* ALL edits or amendments must be made on the electronic/computer document * SubjectiveChief complaint:f/u DM IIlabile diethyperglycemic in the upper 200's Humalog was not given as ordered awaiting SNF placement Objective GeneralVS:Last Documented: Result Date Time Pulse Ox 97 09/03 702 B/P 149/63 09/03 702 B/P Mean 91.9 09/03 702 O2 Delivery Room air 09/03 702 Temp 99.5 09/03 702 Pulse 93 09/03 07 Resp 18 09/03 702 O2 Flow Rate 2 08/27 1022 FiO2 40 08/07 0752 PATIENT WEIGHT: Weight (lb): 177Weight (oz): 14.61Weight (kg): 80.286 Medications:Active Meds + DC'd Last 24 HrsInsulin Human Lispro (HUMALOG) 2 UNIT AC SUBQ (UNV) Potassium Chloride (K-CHAPITO 20 MEQ PACKET) 40 MEQ DAILY PO Metoprolol Tartrate (LOPRESSOR) 50 MG BID PO Collagenase (SANTYL 2GM TOPICAL) 1 APPLIC DAILY TOPICAL Mupirocin (BACTROBAN 2% 22 GM OINTMENT) 1 APPLIC BID TOPICAL Zinc Oxide (ZINC OXIDE 30 GM OINTMENT) 1 APPLIC BID TOPICAL Amiodarone HCl (CORDARONE) 200 MG BID 9A 5P FEED-TUBE Apixaban (ELIQUIS 5MG TABLET) 5 MG BID 9A 5P PO Pantoprazole (PROTONIX) 40 MG BID AC PO Insulin Glargine (Semglee) 20 UNIT DAILY SUBQ Tamsulosin HCl (Flomax 0.4 mg) 0.4 MG PC BK PO Insulin Human Lispro (HUMALOG) 0 AC HS SUBQ Atorvastatin Calcium (LIPITOR) 40 MG BEDTIME PO Lactulose (LACTULOSE) 20 GM Q12HR PO Senna/Docusate Sodium (SENOKOT S) 1 TAB Q12HR PO Allopurinol (ZYLOPRIM) 300 MG DAILY PO Aspirin (ASPIRIN) 81 MG DAILY PO Acetaminophen (TYLENOL) 650 MG Q6H PRN PRN PO Bisacodyl (DULCOLAX) 10 MG DAILY PRN PRN RECTAL Polyethylene Glycol (MIRALAX) 17 GM Q12H PO Dextrose/Water (DEXTROSE 10% IN WATER) 125 ML ASDIR PRN IV (CKD) Dextrose/Water (DEXTROSE 10% IN WATER) 250 ML ASDIR PRN IV (CKD) Glucagon (GLUCAGON) 1 MG ASDIR PRN IM Sodium Chloride (SODIUM CHLORIDE 0.9%) 250 ML BOLUS PRN IV Latanoprost (XALATAN 2.5 ML OPHTH SOLN) 1 DROP BEDTIME EACH EYE Timolol Maleate (TIMOPTIC 0.5% 5 ML OPHTH SOLN) 1 DROP BID EACH EYE Brimonidine Tartrate (Alphagan-P 0.2% 5 ML OPHTH SOLN) 1 DROP Q8HR EACH EYE Hydralazine HCl (APRESOLINE) 10 MG Q6H PRN PRN IV Ondansetron HCl (ZOFRAN) 4 MG Q4H PRN PRN IV Dietitian nutrition assessmentThe data set between the solid lines has been imported from the dietitian's assessment. BMI Calculated: 27.7Nutrition related diagnosis: OverweightNutrition diagnosis details: BMI 25-29.9Nutrition problem: Inadequate oral intakeNutrition etiology: PT LETHARGIC /SWALLOWING Nutrition signs and symptoms: ENTERAL NUTRITION TO MEET , ENERGY NEEDS , (DIET ADVANCED TO PUREED AND, TOLERATED.)Nutrition prescription: 1. RECOMMEND PUREED CCD5 DIET. 2. PROVIDE GLUCERNA TID WITH MEALS/SAMEER BID 3. MONITOR PO, WT, LABS, BM.Dietitian name: Rohan Sarah, DIETAssessment completed: 08/31/23 Physical ExamGeneral appearance: alert, awakeHEENT: atraumatic, clear cornea, normocephalicNeck: suppleCardiovascular: regular rate rhythmRespiratory: on oxygenAbdomen: softGenitourinary: not indicatedExtremities: warmNeuro/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: alertSkin: warmFindings/data:Laboratory Tests: 09/03 09/02 09/02 0704 2031 1605 Chemistry POC Glucose (70 - 110 MG/DL) 162 H 249 H 230 H Laboratory Tests: 09/03 09/02 09/02 0704 2031 1605 Chemistry POC Glucose (70 - 110 MG/DL) 162 H 249 H 230 H Diagnosis, Assessment PlanFree Text A P:1.DM PVUajM3q 8.2adjust Lantus adjust Humalog monitor glucose diabetic diet DC Plan: Lantus, Humalog, follow at next available appointment. 2.Abnormal thyroid functions 08/06 TSH 0.07 FT4 1 recheck in a couple of days 3.Suspected ischemic strokeMRI brain without contrastEchocardiogramTelemetryneurology following 4.Coronary artery diseasePCI on July 03, 2023Echocardiogram preserved LVEFdual antiplateletscardiology following 5. Elevated LFTsGI following 6.MRCP with complex cystic fluid collectionpost drainage surgery following at 1229 at 1501 RPT #:[id number] OF REPORTPRProgress blic9033-66-69T01:50:00G.[id number] for patient lhsoAQXIWPKHZRQPID7707-41-06Y71:30:02 [facility] 2023-09-04 07:32:00 [id number]nM xSYnon6Qxg7w8jMlgdq TCaZbt/n+a+fJ+OOK1312-20-57T37:32:00 [facility] ([facility])Cardiology Progress NoteREPORT#:[id number] REPORT STATUS: SignedREPORT INITIALIZATION DATE:09/04/23 TIME: 731 PATIENT: MISSY CANALES UNIT #: [id number]#: [id number] [address] [birth year] AGE: 68 SEX: M ATTEND: Raphael Ly MDADM AUTHOR: Esther Buckner AGACNPREPT SERVICE DT/TIME: 09/04/23 0732* ALL edits or amendments must be made on the electronic/computer document * SubjectiveComments:Doing ok. Objective GeneralVS/I O:24 hour I O ending at 0700: 09/03 0700 09/02 1900 Intake Total Output Total Balance Number 1 Bowel Movements Vital Signs: Date Time Temp Pulse Resp B/P B/P Pulse O2 O2 Flow FiO2 Mean Ox Delivery Rate 09/03 0703 37.5 93 18 149/63 91.9 97 Room air 09/03 0503 37.4 98 18 115/67 82.7 97 Room air 09/02 2305 37.6 92 18 119/72 87.5 97 Room air 09/02 2032 37.4 80 18 95/57 70.1 99 Room air 09/02 1654 36.9 17 09/02 1615 102 18 125/73 90.1 97 09/02 1111 37.4 45 17 125/61 82.2 97 PATIENT WEIGHT: Weight (lb): 177Weight (oz): 14.61Weight (kg): 80.286 Medications:Active Meds + DC'd Last 24 HrsPotassium Chloride (K-CHAPITO 20 MEQ PACKET) 40 MEQ DAILY PO (UNV) Metoprolol Tartrate (LOPRESSOR) 50 MG BID PO Collagenase (SANTYL 2GM TOPICAL) 1 APPLIC DAILY TOPICAL Mupirocin (BACTROBAN 2% 22 GM OINTMENT) 1 APPLIC BID TOPICAL Zinc Oxide (ZINC OXIDE 30 GM OINTMENT) 1 APPLIC BID TOPICAL Amiodarone HCl (CORDARONE) 200 MG BID 9A 5P FEED-TUBE Apixaban (ELIQUIS 5MG TABLET) 5 MG BID 9A 5P PO Pantoprazole (PROTONIX) 40 MG BID AC PO Insulin Glargine (Semglee) 20 UNIT DAILY SUBQ Tamsulosin HCl (Flomax 0.4 mg) 0.4 MG PC BK PO Insulin Human Lispro (HUMALOG) 0 AC HS SUBQ Atorvastatin Calcium (LIPITOR) 40 MG BEDTIME PO Lactulose (LACTULOSE) 20 GM Q12HR PO Senna/Docusate Sodium (SENOKOT S) 1 TAB Q12HR PO Metoprolol Tartrate (LOPRESSOR) 50 MG Q8HR PO (DC) Allopurinol (ZYLOPRIM) 300 MG DAILY PO Aspirin (ASPIRIN) 81 MG DAILY PO Acetaminophen (TYLENOL) 650 MG Q6H PRN PRN PO Bisacodyl (DULCOLAX) 10 MG DAILY PRN PRN RECTAL Polyethylene Glycol (MIRALAX) 17 GM Q12H PO Dextrose/Water (DEXTROSE 10% IN WATER) 125 ML ASDIR PRN IV (CKD) Dextrose/Water (DEXTROSE 10% IN WATER) 250 ML ASDIR PRN IV (CKD) Glucagon (GLUCAGON) 1 MG ASDIR PRN IM Sodium Chloride (SODIUM CHLORIDE 0.9%) 250 ML BOLUS PRN IV Latanoprost (XALATAN 2.5 ML OPHTH SOLN) 1 DROP BEDTIME EACH EYE Timolol Maleate (TIMOPTIC 0.5% 5 ML OPHTH SOLN) 1 DROP BID EACH EYE Brimonidine Tartrate (Alphagan-P 0.2% 5 ML OPHTH SOLN) 1 DROP Q8HR EACH EYE Hydralazine HCl (APRESOLINE) 10 MG Q6H PRN PRN IV Ondansetron HCl (ZOFRAN) 4 MG Q4H PRN PRN IV Physical ExamGeneral appearance: alert, awake, no acute distress, pleasantNeck: non-tenderCardiovascular: CV assessment: ectopy, irregular rhythmRespiratory: decreased breath sounds, no distressAbdomen: softGenitourinary: no urinary catheterUpper extremity: UE assessment: normal capillary refill, normal temperatureLower extremity: LE assessment: no edemaMusculoskeletal: decreased ROMSkin: dryPsychiatry: normal affect, normal mood ResultsFindings/Data:Laboratory Tests 09/02 09/02 09/02 2031 1605 1109 Chemistry POC Glucose (70 - 110 MG/DL) 249 H 230 H 153 H Laboratory Tests 09/04/23 1047:[Embedded Image Not Available] Telemetry Interpretation:Sinus rhythm with bigeminal PVCs Diagnosis, Assessment PlanPlan discussed with: patient, spouse/partner, collaborating MD, nurse Free Text DxA P NotesFree Text DxA P Notes:1. Coronary artery disease s/p recent PCI/TERESA to diagonal artery* Troponin trend is flat* Hx of CABG (2000)* s/p stent placement to diagonal artery on 07/02/23. Still need staged PCI to RCA. * Echocardiogram preserved LVEF.* PPI: lansoprazole 30 mg BID* Plavix dc'd (08/30/23), switched to Eliquis (afib) and ASA - tx decision discussed in depth with 2. Elevated LFTs/acute cholecystitis/liver abscess* s/p cholecystostomy tube placement. * ID on board managing antibiotic* GI on board* s/p EGD: nonbleeding ulcer 3. AMS: MRI brain showed small subacute ischemia in the L coronary radiata * MRI of the brain unchanged 4. Tachycardia with PVCs and PACs/Paroxysmal atrial fibrillation* Tele: frequent PVCs and PACs and intermittent afb * DBF7HE7-BABo score 6, recommend AC * HASBLED 4* continue Eliquis 5 mg BID plus ASA 81 mg daily. * continue amiodarone 200 mg BID* continue metoprolol tartrate 50 mg BID 5. Anemia* hgb 6.3 up to 8.9->8.6->6.9->7->8.7->8.6->8.3->8.8* s/p 2 units PRBCs 08/20/23, 1 unit PRBC 08/26/23* On PPI* GI on board, s/p EGD showed nonbleeding ulcer 6. Hypokalemia* keep K > 4* add KCL 40 mg daily* check K and Mag today Waiting for placement.Medical decision making by Dr. Daniel. at 1253 RPT #:[id number] OF REPORTPRProgress uady0421-67-00V53:32:00G.[id number] for patient rzdvFVWEEUKIFMPFXB2981-70-01E45:53:39 [facility] 2023-09-04 06:14:00 [id number]/01w22N50/0/aL1 3BXvWjukVQpbFtyPW4H G9pvQHYmex+d8zlQF6493-59-18W10:14:00 [facility] ([facility])Infectious Dis. Progress NoteREPORT#:[id number] REPORT STATUS: SignedREPORT INITIALIZATION DATE:09/04/23 TIME: 613 PATIENT: MISSY CANALES UNIT #: [id number]#: [id number] [address] [birth year] AGE: 68 SEX: M ATTEND: Raphael Ly [facility] AUTHOR: Kajal Nguyen MDREPT SERVICE DT/TIME: 09/04/23613* ALL edits or amendments must be made on the electronic/computer document * SubjectiveChief complaint:Follow-up on bacteremia, hepatic abscess, cholecystitis, aspiration pneumoniaHPI:Review of systems is somewhat limited due to patient's limited responses. Nonetheless, he appears comfortable. present at bedside. No major overnight events. Objective Physical ExamWound/incision: Location:cholecystostomy tube and RUQ drain in placeHead/Eyes: atraumatic, normocephalicENT: moist mucosal membranesNeck: no JVDCardiovascular: regular rate rhythm, no murmurRespiratory: clear to auscultation, symmetric expansionAbdomen: non-tender, soft, no distention, percutaneous drains in place in RUQExtremities: no cyanosis, no edemaNeuro/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 Canales is a 68-year-old male with PMH of HTN, DMII, CAD s/p stent who came to [facility] initially with N/V and abdominal pain. His pain was started 2 days prior to admission. His work up showed elevated LFTs, bilirubin, troponin. His US abdomen showed cholelithiasis with distended gallbladder including material at the gallbladder neck concerning for impacted stone. Patient started on empiric antibiotics and had cultures done with blood culture showing gram negative bacilli. Patient has been febrile and tachycardic while here. GI and general surgery are consulted. Patient was found to have acute cholecystitis with a liver abscess. He had a drain in the gallbladder and in the abscess placed. Blood culture eventually grew Citrobacter and so did the abscess. *Fever--Recurrent after improvement--UA via straight cath (-)--Covid (-)--Flu (-)--F/U CT A/P, decreased liver absces; (+) LLL infiltrates c/w PNA*PNA--CT LLL infiltrates c/w aspiration*Bacteremia--Citrobacter--Source: Biliary*Liver abscess--MRCP showed 4.6 x 3.6 x 3.0 thick walled cystic lesion/fluid collection liver abutting GB fossa--S/P IR drain 08/05, cx CitrobacterCt scan of the abdomen showed no residuasl abscesson 08/29/23*Acute cholecystitis--S/P IR placed cholecystotomy tube 3., cx Citrobacter*Acute stroke--MRI (+) subacute Left guo radiata--CTA neck (+) high grade stenosis*ARELY*DM2*HTN*CADFever: on 08/30/23 : blood cx drawn yesterday., ua and cx ordered not done Plan: -Patient has had > 7 days of piperacillin-tazobactam to cover for aspiration pneumonia.-Antibiotic treatment transitioned back to ceftriaxone and metronidazole on 08/22/2023 for coverage of liver abscess. dc iv abx if the urine cx and blood cx done on 08/30/[address] showed resolved liver abscess dced abx current antimicrobilas: none at 0303 RPT #:[id number] OF REPORTPRProgress [id number]:14:00G.[id number] for patient xeppYMNGAADDZPCTSI9691-54-97U62:04:14 [facility] 2023-09-03 20:47:00 [id number]fLR qv4tB93zVNkcv3T6baQ ezPgFVlsZ0tUfK1zl0950-82-40C40:47:00 [facility] ([facility])Wound Care Progress NoteREPORT#:[id number] REPORT STATUS: SignedREPORT INITIALIZATION DATE:09/03/23 TIME: 2046 PATIENT: MISSY CANALES UNIT #: [id number]#: [id number] [address] [birth year] AGE: 68 SEX: M ATTEND: Raphael Ly [facility] AUTHOR: Lilly Riggins APRPREPT SERVICE DT/TIME: 09/03/232046* ALL edits or amendments must be made on the electronic/computer document * Lilly Riggins 09/03/232046:SubjectiveChief complaint:both heels and sacralHPI:68-year-old male being seen for follow-up of all his wounds. is at bedside.Patient reports:No: complaints. Nursing reports:No: complaints. Objective GeneralVS:Last Documented: Result Date Time Pulse Ox 99 09/03 2031 B/P 95/57 09/03 2031 B/P Mean 70.1 09/03 2031 O2 Delivery Room air 09/03 2031 Temp 37.4 09/03 2031 Pulse 80 09/03 2031 Resp 18 09/03 2031 O2 Flow Rate 2 08/27 1022 FiO2 40 08/07 0752 PATIENT WEIGHT: Weight (lb): 177Weight (oz): 14.61Weight (kg): 80.286 Medications:Active Meds + DC'd Last 24 HrsMetoprolol Tartrate (LOPRESSOR) 50 MG BID PO Collagenase (SANTYL 2GM TOPICAL) 1 APPLIC DAILY TOPICAL Mupirocin (BACTROBAN 2% 22 GM OINTMENT) 1 APPLIC BID TOPICAL Zinc Oxide (ZINC OXIDE 30 GM OINTMENT) 1 APPLIC BID TOPICAL Amiodarone HCl (CORDARONE) 200 MG BID 9A 5P FEED-TUBE Apixaban (ELIQUIS 5MG TABLET) 5 MG BID 9A 5P PO Pantoprazole (PROTONIX) 40 MG BID AC PO Insulin Glargine (Semglee) 20 UNIT DAILY SUBQ Tamsulosin HCl (Flomax 0.4 mg) 0.4 MG PC BK PO Insulin Human Lispro (HUMALOG) 0 AC HS SUBQ Atorvastatin Calcium (LIPITOR) 40 MG BEDTIME PO Lactulose (LACTULOSE) 20 GM Q12HR PO Senna/Docusate Sodium (SENOKOT S) 1 TAB Q12HR PO Metoprolol Tartrate (LOPRESSOR) 50 MG Q8HR PO (DC) Allopurinol (ZYLOPRIM) 300 MG DAILY PO Aspirin (ASPIRIN) 81 MG DAILY PO Acetaminophen (TYLENOL) 650 MG Q6H PRN PRN PO Bisacodyl (DULCOLAX) 10 MG DAILY PRN PRN RECTAL Polyethylene Glycol (MIRALAX) 17 GM Q12H PO Dextrose/Water (DEXTROSE 10% IN WATER) 125 ML ASDIR PRN IV (CKD) Dextrose/Water (DEXTROSE 10% IN WATER) 250 ML ASDIR PRN IV (CKD) Glucagon (GLUCAGON) 1 MG ASDIR PRN IM Sodium Chloride (SODIUM CHLORIDE 0.9%) 250 ML BOLUS PRN IV Latanoprost (XALATAN 2.5 ML OPHTH SOLN) 1 DROP BEDTIME EACH EYE Timolol Maleate (TIMOPTIC 0.5% 5 ML OPHTH SOLN) 1 DROP BID EACH EYE Brimonidine Tartrate (Alphagan-P 0.2% 5 ML OPHTH SOLN) 1 DROP Q8HR EACH EYE Hydralazine HCl (APRESOLINE) 10 MG Q6H PRN PRN IV Ondansetron HCl (ZOFRAN) 4 MG Q4H PRN PRN IV Dietitian Nutrition assessmentThe data set between the solid lines has been imported from the dietitian's assessment. BMI Calculated: 27.7Nutrition related diagnosis: OverweightNutrition diagnosis details: BMI 25-29.9Nutrition problem: Inadequate oral intakeNutrition etiology: PT LETHARGIC /SWALLOWING Nutrition signs and symptoms: ENTERAL NUTRITION TO MEET , ENERGY NEEDS , (DIET ADVANCED TO PUREED AND, TOLERATED.)Nutrition prescription: 1. RECOMMEND PUREED CCD5 DIET. 2. PROVIDE GLUCERNA TID WITH MEALS/SAMEER BID 3. MONITOR PO, WT, LABS, BM.Dietitian name: Rohan Sarah, DIETAssessment completed: 08/31/23 Physical ExamGeneral appearance: awakeRespiratory: no distress Wound AssessmentWound Assessment 1: Type/cause: pressure Wound location: heel (right and left) Site condition: necrotic tissue Stage of pressure ulcer: unstageableWound Assessment 2: Type/cause: pressure Wound location: sacral region Site condition: dehiscence, drainage Stage of pressure ulcer: stage III Wound margins: open ResultsFindings/Data:Laboratory Tests: 09/02 09/02 09/02 09/02 2031 1605 1109 0717 Chemistry POC Glucose (70 - 110 MG/DL) 249 H 230 H 153 H 105 Diagnosis, Assessment PlanProblem List/A P: 1. Pressure ulcer of sacral region, stage 3 2. Pressure ulcer, heel, right, unstageable 3. Pressure ulcer, heel, left, unstageable 4. Anemia 5. Failure to thrive Free Text A P:09/02/2023: Will continue with the Santyl to the heel areas. Will continue with the gentamicin to the sacral area. Anemia, which will impede wound healing, defer to the primary care team. Albumin is on the lower end which will also impede wound healing. Recommend dietary input. 09/03/2023: Patient currently in bed, no issues reported overnight; patient's blood sugars between 150-240s. Patient is currently taking Sameer, he is anemic and his albumin in low. Will continue Santyl in the bilateral heels and gentamicin in the sacral areas. Tano Sanchez 09/09/236:AttestationsAttestation needed: supervising physician Physician AttestationAgree w/findings plan:Agree with the findings and plan as documented by ANGEL Lindsey* my personal evaluation isReviewed the history, physical findings, management and agree with the plan as dictated by ANGEL Lindsey at 2054 at 2139 RPT #:[id number] OF REPORTPNProcedure eiam5041-94-80E69:47:00G.[id number] for patient gnomBNLHNTJJFAHRNL3171-36-06H25:54:54 [facility] 2023-09-03 17:46:00 [id number]+PME3jP0 Q1t/tNoNf0WPP3pYrv0 gwmCyleXA6ZwI3P1+2842-88-48P67:46:00 [facility] Progress NoteREPORT#:[id number] REPORT STATUS: SignedREPORT INITIALIZATION DATE:09/03/23 TIME: 1745 PATIENT: MISSY CANALSE UNIT #: [id number]#: [id number] [address] [birth year] AGE: 68 SEX: M ATTEND: Raphael Ly MDADM AUTHOR: Lisa Cancino MDREPT SERVICE DT/TIME: 09/03/231745* ALL edits or amendments must be made on the electronic/computer document * SubjectiveChief complaint:Elevated LFtsHPI:68 year old man s/p cardiac stents 2 weeks ago who was sent to the hospital withelevated LFTs and possible acute cholecystitis. Pt had a stenet recently placed and was started on DAPT. Pt had labs showing elevated LFTs and was sent here forevaluation. Labs showed leukocytosis 15k. Elevated Tbili 3.7. Dbili 2.8. AST 79,ALT 105 and ALP 225. RUQ U/S showed possible cholecystitis and normal CBD of 4 mm in diatmeter. Pt denies pain. No dark urine or peyton-color stool 08/03; patient feels well. MRCP reviewed. No choledocholithiasis. Fluid collection at the liver could be related secondary to gallbladder perforation. LFTs and white count are down. 08/04: Plan for IR for cholecystostomy tube placement. LFts stable. WBC elevated.Was confused this am but improving. NO pain. No fevers. Added flagyl to his Abx regimen 08/05: NO new complaints. IR for abscess drain and cholecystostomy tube 08/06: Transferred overnight to ICU due to AMS. S/P IR with cholecystostomy tube and abscess drain 08/07: severely constipated. NGT in with feeds. drains in. More awake today and oriented. right sided weakness likely acute stroke. MRI brain reviewed- small stroke. KUB reviewed 08/08: Doing better according to . Sheldon removed. Still on feeds 08/09: Feeds at 20 ml/hr. Still no BM 08/10-Had BM last night. Denies n/v/abd pain 08/11-Patient dislodged DH. DH was replaced. +BM today 08/12: has been having BM during the weekend 08/13: No new events 08/14: eating and moving bowels. 08/15: doing well. 08/26: I was called again to evaluate pt. He has melena-like stool and dropped hisH/H. Pt is on DAPT 08/27: S/P EGD showing gastric ulcer in the incisura. flat pigmentation without high rebleeding stigmata. 08/28: H/H stable. Family at bedside. NO melena 08/29: Stbale H/H. NO family at bediside this am 08/30: Stable H/H. 08/31-No GI complaints, family at bedside. HGB 8.3 09/01-HGB 8.8. Last BM today 09/02: Stable H/H. Objective Physical ExamHEENT: EOMICardiovascular: normal heart soundsRespiratory: clear to auscultationAbdomen: non-tenderExtremities: no edemaSkin: dry, normal temperature Diagnosis, Assessment PlanProblem List/A P: 1. Elevated LFTs Free Text A P:cholestatic pattern. CBD normal on RuQ U/S MRCP showed no evidence of choledocholithiasis.Large fluid collection within the liver could be secondary to gallbladder perforation.Recommend surgical evaluation again.Continue with antibiotics. Add flagyl s/p cholecystostomy tube and drainage of cystic fluid collection. Awaiting culture EGD showed gastric ulcer with flat pigmentPPI PO BID Will need repeat EGD in 6 weeks to confirm healing and rule out malignancyConsider removing hepatic drainWill follow at 1746 RPT #:[id number] OF REPORTPRProgress ngmf5007-63-13J83:46:00G.[id number] for patient uoyySBAIQYUJVLCLOU3501-71-98U37:47:00 [facility] 2023-09-03 12:35:00 [id number]y0ue FgVhkp8Yd4yra7rAiTY WJ4JlLLS2ThIzZBtA7848-81-91L93:35:00 [facility])Endocrinology Progress NoteREPORT#:[id number] REPORT STATUS: SignedREPORT INITIALIZATION DATE:09/03/23 TIME: 123 PATIENT: MISSY CANALES UNIT #: [id number]#: [id number] ROOM/BED: 6617-1DOB: [birth year] AGE: 68 SEX: M ATTEND: Raphael Ly AUTHOR: Agus DuckworthPREPT SERVICE DT/TIME: 09/03/23 1130* ALL edits or amendments must be made on the electronic/computer document * SubjectiveChief complaint:f/u DM IIlabile dietawaiting SNF placement Objective GeneralVS:Last Documented: Result Date Time Pulse Ox 97 09/02 1111 B/P 125/61 09/02 1111 B/P Mean 82.2 09/02 1111 Temp 99.3 09/02 1111 Pulse 45 09/02 1111 Resp 17 09/02 1111 O2 Delivery Room air 09/02 0427 O2 Flow Rate 2 08/27 1022 FiO2 40 08/07 0752 PATIENT WEIGHT: Weight (lb): 177Weight (oz): 14.61Weight (kg): 80.286 Medications:Active Meds + DC'd Last 24 HrsMetoprolol Tartrate (LOPRESSOR) 50 MG BID PO Collagenase (SANTYL 2GM TOPICAL) 1 APPLIC DAILY TOPICAL Mupirocin (BACTROBAN 2% 22 GM OINTMENT) 1 APPLIC BID TOPICAL Zinc Oxide (ZINC OXIDE 30 GM OINTMENT) 1 APPLIC BID TOPICAL Amiodarone HCl (CORDARONE) 200 MG BID 9A 5P FEED-TUBE Apixaban (ELIQUIS 5MG TABLET) 5 MG BID 9A 5P PO Pantoprazole (PROTONIX) 40 MG BID AC PO Insulin Glargine (Semglee) 20 UNIT DAILY SUBQ Tamsulosin HCl (Flomax 0.4 mg) 0.4 MG PC BK PO Insulin Human Lispro (HUMALOG) 0 AC HS SUBQ Atorvastatin Calcium (LIPITOR) 40 MG BEDTIME PO Lactulose (LACTULOSE) 20 GM Q12HR PO Senna/Docusate Sodium (SENOKOT S) 1 TAB Q12HR PO Metoprolol Tartrate (LOPRESSOR) 50 MG Q8HR PO (DC) Allopurinol (ZYLOPRIM) 300 MG DAILY PO Aspirin (ASPIRIN) 81 MG DAILY PO Acetaminophen (TYLENOL) 650 MG Q6H PRN PRN PO Bisacodyl (DULCOLAX) 10 MG DAILY PRN PRN RECTAL Polyethylene Glycol (MIRALAX) 17 GM Q12H PO Dextrose/Water (DEXTROSE 10% IN WATER) 125 ML ASDIR PRN IV (CKD) Dextrose/Water (DEXTROSE 10% IN WATER) 250 ML ASDIR PRN IV (CKD) Glucagon (GLUCAGON) 1 MG ASDIR PRN IM Sodium Chloride (SODIUM CHLORIDE 0.9%) 250 ML BOLUS PRN IV Latanoprost (XALATAN 2.5 ML OPHTH SOLN) 1 DROP BEDTIME EACH EYE Timolol Maleate (TIMOPTIC 0.5% 5 ML OPHTH SOLN) 1 DROP BID EACH EYE Brimonidine Tartrate (Alphagan-P 0.2% 5 ML OPHTH SOLN) 1 DROP Q8HR EACH EYE Hydralazine HCl (APRESOLINE) 10 MG Q6H PRN PRN IV Ondansetron HCl (ZOFRAN) 4 MG Q4H PRN PRN IV Dietitian nutrition assessmentThe data set between the solid lines has been imported from the dietitian's assessment. BMI Calculated: 27.7Nutrition related diagnosis: OverweightNutrition diagnosis details: BMI 25-29.9Nutrition problem: Inadequate oral intakeNutrition etiology: PT LETHARGIC /SWALLOWING Nutrition signs and symptoms: ENTERAL NUTRITION TO MEET , ENERGY NEEDS , (DIET ADVANCED TO PUREED AND, TOLERATED.)Nutrition prescription: 1. RECOMMEND PUREED CCD5 DIET. 2. PROVIDE GLUCERNA TID WITH MEALS/SAMEER BID 3. MONITOR PO, WT, LABS, BM.Dietitian name: Rohan Sarah, DIETAssessment completed: 08/31/23 Physical ExamGeneral appearance: alert, awakeHEENT: atraumatic, clear cornea, normocephalicNeck: suppleCardiovascular: regular rate rhythmRespiratory: on oxygenAbdomen: softGenitourinary: not indicatedExtremities: warmNeuro/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: alertSkin: warmFindings/data:Laboratory Tests: 09/02 09/02 09/01 09/01 1109 0717 2029 1655 Chemistry POC Glucose (70 - 110 MG/DL) 153 H 105 217 H 172 H Laboratory Tests: 09/0207 1109 0717 2028 1655 Chemistry POC Glucose (70 - 110 MG/DL) 153 H 105 217 H 172 H Diagnosis, Assessment PlanFree Text A P:1.DM ALTczY5v 8.2adjust Lantus adjust Humalog monitor glucose diabetic diet DC Plan: Lantus, Humalog, follow at next available appointment. 2.Abnormal thyroid functions 08/06 TSH 0.07 FT4 1 recheck in a couple of days 3.Suspected ischemic strokeMRI brain without contrastEchocardiogramTelemetryneurology following 4.Coronary artery diseasePCI on July 03, 2023Echocardiogram preserved LVEFdual antiplateletscardiology following 5. Elevated LFTsGI following 6.MRCP with complex cystic fluid collectionpost drainage surgery following at 1229 at 1501 RPT #:[id number] OF REPORTPRProgress ezqe6963-28-50N48:35:00G.QOZF56758350-8547SFZcvekucee for patient ayiuIBYTZYSWGVLMSJ3173-84-69O29:29:42 [facility] 2023-09-03 10:00:00 [id number]/s98dVPG OnH+y3Z7PeGjTMlYTzG CPrnfaUl8cjttqETJ1001-77-96Q21:00:00 [facility] CenterHospital[facility] Progress NoteREPORT#:[id number] REPORT STATUS: SignedREPORT INITIALIZATION DATE:09/03/23 TIME: 1000 PATIENT: MISSY CANALES UNIT #: [id number]#: [id number] [address]OB: [birth year] AGE: 68 SEX: M ATTEND: Raphael Ly MDADM AUTHOR: Clyde Lares SERVICE DT/TIME: 09/03/23 1000* ALL edits or amendments must be made on the electronic/computer document * SubjectiveChief complaint:Patient is resting comfortably in bed in no acute distress Objective GeneralVS/I O:Vital Signs: Date Time Temp Pulse Resp B/P B/P Pulse O2 O2 Flow FiO2 Mean Ox Delivery Rate 09/02 716 98.2 53 18 112/55 74.3 100 09/02 0427 97.9 88 17 132/85 100.4 98 Room air 09/01 2322 98.6 92 16 115/70 85.2 99 Room air 09/01 2030 99.0 98 17 95/63 73.7 98 Room air 09/01 1657 114 15 136/70 91.7 99 Room air 24 hour I O ending at 0700: 09/02 0700 09/01 1900 Intake Total Output Total 128 Balance -128 Number 3 1 Bowel Movements Output, 128 Drainage PATIENT WEIGHT: Weight (lb): 177Weight (oz): 14.61Weight (kg): 80.286 Medications:Active Meds + DC'd Last 24 HrsMetoprolol Tartrate (LOPRESSOR) 50 MG BID PO Potassium Chloride (POTASSIUM CHLORIDE 20MEQ TAB.ER) 40 MEQ Q2H PO (DC) Collagenase (SANTYL 2GM TOPICAL) 1 APPLIC DAILY TOPICAL Mupirocin (BACTROBAN 2% 22 GM OINTMENT) 1 APPLIC BID TOPICAL Zinc Oxide (ZINC OXIDE 30 GM OINTMENT) 1 APPLIC BID TOPICAL Amiodarone HCl (CORDARONE) 200 MG BID 9A 5P FEED-TUBE Apixaban (ELIQUIS 5MG TABLET) 5 MG BID 9A 5P PO Pantoprazole (PROTONIX) 40 MG BID AC PO Insulin Glargine (Semglee) 20 UNIT DAILY SUBQ Tamsulosin HCl (Flomax 0.4 mg) 0.4 MG PC BK PO Insulin Human Lispro (HUMALOG) 0 AC HS SUBQ Atorvastatin Calcium (LIPITOR) 40 MG BEDTIME PO Lactulose (LACTULOSE) 20 GM Q12HR PO Senna/Docusate Sodium (SENOKOT S) 1 TAB Q12HR PO Metoprolol Tartrate (LOPRESSOR) 50 MG Q8HR PO (DC) Allopurinol (ZYLOPRIM) 300 MG DAILY PO Aspirin (ASPIRIN) 81 MG DAILY PO Acetaminophen (TYLENOL) 650 MG Q6H PRN PRN PO Bisacodyl (DULCOLAX) 10 MG DAILY PRN PRN RECTAL Polyethylene Glycol (MIRALAX) 17 GM Q12H PO Dextrose/Water (DEXTROSE 10% IN WATER) 125 ML ASDIR PRN IV (CKD) Dextrose/Water (DEXTROSE 10% IN WATER) 250 ML ASDIR PRN IV (CKD) Glucagon (GLUCAGON) 1 MG ASDIR PRN IM Sodium Chloride (SODIUM CHLORIDE 0.9%) 250 ML BOLUS PRN IV Latanoprost (XALATAN 2.5 ML OPHTH SOLN) 1 DROP BEDTIME EACH EYE Timolol Maleate (TIMOPTIC 0.5% 5 ML OPHTH SOLN) 1 DROP BID EACH EYE Brimonidine Tartrate (Alphagan-P 0.2% 5 ML OPHTH SOLN) 1 DROP Q8HR EACH EYE Hydralazine HCl (APRESOLINE) 10 MG Q6H PRN PRN IV Ondansetron HCl (ZOFRAN) 4 MG Q4H PRN PRN IV Physical ExamGeneral appearance: alert, awakeHead/Eyes: atraumatic, normocephalic, PERRLAENT: moist mucosal membranes, normal dentitionNeck: full range of motion, non-tender, no JVDCardiovascular: normal heart sounds, regular rate rhythmRespiratory: aerating well, symmetric expansion, no distressAbdomen: non-tender, normal bowel sounds, jtube present with minimal collection (liver abscess drains in place)Genitourinary: no bladder distention, no flank painExtremities: no clubbing, no cyanosisMusculoskeletal: no muscle spasmNeuro/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: abnormal speech, disoriented, alert ResultsFindings/Data:Laboratory Tests 09/02 09/01 09/01 09/01 0717 2029 1655 1103 Chemistry POC Glucose (70 - 110 MG/DL) 105 217 H 172 H 156 H Treatment Prophylaxis Treatment ProphylaxisOxygen: room air Diagnosis, Assessment PlanProblem List/A P: 1. Acute cholangitis 2. Elevated LFTs 3. Liver abscess 4. Failure to thrive Free Text DxA P NotesFree text DxA P notes:68-year-old male admitted with abdominal pain, noted with NSTEMI, s/p stent placement to diagonal artery on 07/02/23. Still need staged PCI to RCA. Patient was noted with a liver abscess, seen by general surgery and GI, drain was placedby IR, has been tolerating antibiotics well. Patient was noted with some anemia, EGD was unremarkable but for gastric ulcers with no active bleeding.* Appreciated input from general surgery, GI, cardiology, and ID* Continue on PPI* Awaiting on morning labs* Encourage oral intake and therapy* is at the bedside and all concerns addressed* Patient is awaiting SNF placement * See my DC summary from 08/22 for details at 1001 RPT #:[id number] OF REPORTPRProgress sdha5877-39-71B06:00:00G.[id number] for patient gehqKZSGKNLVVEWOBK4489-86-82O02:01:46 [facility] 2023-09-03 09:40:00 [id number]/5Cei/vWg1VjURbiHphflBVrSk 6eat67e3oOWcX3WU5Pc 2REeK1jRVW18NrT4T6453-98-53B64:40:00 [facility] ([facility])Infectious Dis. Progress NoteREPORT#:[id number] REPORT STATUS: SignedREPORT INITIALIZATION DATE:09/03/23 TIME: 939 PATIENT: MISSY CANALES UNIT #: [id number]#: [id number] ROOM/BED: 66171DOB: [birth year] AGE: 68 SEX: M ATTEND: Raphael Ly MDADM AUTHOR: Kajal Nguyen MDREPT SERVICE DT/TIME: 09/03/23 0940* ALL edits or amendments must be made on the electronic/computer document * SubjectiveChief complaint:Follow-up on bacteremia, hepatic abscess, cholecystitis, aspiration pneumoniaHPI:Review of systems is somewhat limited due to patient's limited responses. Nonetheless, he appears comfortable. present at bedside. No major overnight events. Objective Physical ExamWound/incision: Location:cholecystostomy tube and RUQ drain in placeHead/Eyes: atraumatic, normocephalicENT: moist mucosal membranesNeck: no JVDCardiovascular: regular rate rhythm, no murmurRespiratory: clear to auscultation, symmetric expansionAbdomen: non-tender, soft, no distention, percutaneous drains in place in RUQExtremities: no cyanosis, no edemaNeuro/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 Canales is a 68-year-old male with PMH of HTN, DMII, CAD s/p stent who came to [facility] initially with N/V and abdominal pain. His pain was started 2 days prior to admission. His work up showed elevated LFTs, bilirubin, troponin. His US abdomen showed cholelithiasis with distended gallbladder including material at the gallbladder neck concerning for impacted stone. Patient started on empiric antibiotics and had cultures done with blood culture showing gram negative bacilli. Patient has been febrile and tachycardic while here. GI and general surgery are consulted. Patient was found to have acute cholecystitis with a liver abscess. He had a drain in the gallbladder and in the abscess placed. Blood culture eventually grew Citrobacter and so did the abscess. *Fever--Recurrent after improvement--UA via straight cath (-)--Covid (-)--Flu (-)--F/U CT A/P, decreased liver absces; (+) LLL infiltrates c/w PNA*PNA--CT LLL infiltrates c/w aspiration*Bacteremia--Citrobacter--Source: Biliary*Liver abscess--MRCP showed 4.6 x 3.6 x 3.0 thick walled cystic lesion/fluid collection liver abutting GB fossa--S/P IR drain 08/05, cx CitrobacterCt scan of the abdomen showed no residuasl abscesson 08/29/23*Acute cholecystitis--S/P IR placed cholecystotomy tube 3., cx Citrobacter*Acute stroke--MRI (+) subacute Left guo radiata--CTA neck (+) high grade stenosis*ARELY*DM2*HTN*CADFever: on 08/30/23 : blood cx drawn yesterday., ua and cx ordered not done Plan: -Patient has had > 7 days of piperacillin-tazobactam to cover for aspiration pneumonia.-Antibiotic treatment transitioned back to ceftriaxone and metronidazole on 08/22/2023 for coverage of liver abscess. dc iv abx if the urine cx and blood cx done on 08/30/[address] showed resolved liver abscess dced abx current antimicrobilas: none at 0504 RPT #:[id number] OF REPORTPRProgress mpuw4508-35-65N50:40:00G.[id number] for patient hbxyOEFZITHLGMYKPN1425-44-96K65:05:05 [facility] 2023-09-03 08:03:00 [id number]J/b Vn+Q7uZEE4pmhmSRRqN Zx6fbJ/2FqymfcQ/68806-96-93P79:03:00 [facility] ([facility])Cardiology Progress NoteREPORT#:[id number] REPORT STATUS: SignedREPORT INITIALIZATION DATE:09/03/23 TIME: 802 PATIENT: MISSY CANALES UNIT #: [id number]#: [id number] [address] [birth year] AGE: 68 SEX: M ATTEND: Raphael Ly [facility] AUTHOR: Esther Buckner AGACNPREPT SERVICE DT/TIME: 09/03/23 0803* ALL edits or amendments must be made on the electronic/computer document * Esther Buckner 09/03/23 0803:SubjectivePatient reports:No: complaints. Objective GeneralVS/I O:24 hour I O ending at 0700: 09/02 0700 09/01 1900 Intake Total Output Total 128 Balance -128 Number 3 1 Bowel Movements Output, 128 Drainage Vital Signs: Date Time Temp Pulse Resp B/P B/P Pulse O2 O2 Flow FiO2 Mean Ox Delivery Rate 09/02 716 36.8 53 18 112/55 74.3 100 09/02 0427 36.6 88 17 132/85 100.4 98 Room air 09/01 2322 37.0 92 16 115/70 85.2 99 Room air 09/01 2030 37.2 98 17 95/63 73.7 98 Room air 09/01 1657 114 15 136/70 91.7 99 Room air 09/01 0813 36.9 90 16 106/67 80.2 98 Room air PATIENT WEIGHT: Weight (lb): 177Weight (oz): 14.61Weight (kg): 80.286 Medications:Active Meds + DC'd Last 24 HrsPotassium Chloride (POTASSIUM CHLORIDE 20MEQ TAB.ER) 40 MEQ Q2H PO (DC) Collagenase (SANTYL 2GM TOPICAL) 1 APPLIC DAILY TOPICAL Mupirocin (BACTROBAN 2% 22 GM OINTMENT) 1 APPLIC BID TOPICAL Zinc Oxide (ZINC OXIDE 30 GM OINTMENT) 1 APPLIC BID TOPICAL Amiodarone HCl (CORDARONE) 200 MG BID 9A 5P FEED-TUBE Apixaban (ELIQUIS 5MG TABLET) 5 MG BID 9A 5P PO Pantoprazole (PROTONIX) 40 MG BID AC PO Insulin Glargine (Semglee) 20 UNIT DAILY SUBQ Tamsulosin HCl (Flomax 0.4 mg) 0.4 MG PC BK PO Insulin Human Lispro (HUMALOG) 0 AC HS SUBQ Atorvastatin Calcium (LIPITOR) 40 MG BEDTIME PO Lactulose (LACTULOSE) 20 GM Q12HR PO Senna/Docusate Sodium (SENOKOT S) 1 TAB Q12HR PO Metoprolol Tartrate (LOPRESSOR) 50 MG Q8HR PO Allopurinol (ZYLOPRIM) 300 MG DAILY PO Aspirin (ASPIRIN) 81 MG DAILY PO Acetaminophen (TYLENOL) 650 MG Q6H PRN PRN PO Bisacodyl (DULCOLAX) 10 MG DAILY PRN PRN RECTAL Polyethylene Glycol (MIRALAX) 17 GM Q12H PO Dextrose/Water (DEXTROSE 10% IN WATER) 125 ML ASDIR PRN IV (CKD) Dextrose/Water (DEXTROSE 10% IN WATER) 250 ML ASDIR PRN IV (CKD) Glucagon (GLUCAGON) 1 MG ASDIR PRN IM Sodium Chloride (SODIUM CHLORIDE 0.9%) 250 ML BOLUS PRN IV Latanoprost (XALATAN 2.5 ML OPHTH SOLN) 1 DROP BEDTIME EACH EYE Timolol Maleate (TIMOPTIC 0.5% 5 ML OPHTH SOLN) 1 DROP BID EACH EYE Brimonidine Tartrate (Alphagan-P 0.2% 5 ML OPHTH SOLN) 1 DROP Q8HR EACH EYE Hydralazine HCl (APRESOLINE) 10 MG Q6H PRN PRN IV Ondansetron HCl (ZOFRAN) 4 MG Q4H PRN PRN IV Physical ExamGeneral appearance: alert, awake, no acute distress, no respiratory distressCardiovascular: CV assessment: ectopy, irregular rhythmRespiratory: decreased breath sounds, no distressAbdomen: softGenitourinary: no urinary catheterLower extremity: LE assessment: no edemaMusculoskeletal: decreased ROMNeuro/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: right hemiparesis, alertSkin: dryPsychiatry: normal affect, normal mood ResultsFindings/Data:Laboratory Tests 09/02 09/01 09/01 09/01 09/01 0717 2029 1655 1103 0813 Chemistry POC Glucose (70 - 110 MG/DL) 105 217 H 172 H 156 H 137 H Results: no new labs, vital signs reviewed, rhythm personally rev'dTelemetry Interpretation:SR with bigeminal PVCs Diagnosis, Assessment PlanPlan discussed with: patient, spouse/partner, collaborating MD Free Text DxA P NotesFree Text DxA P Notes:1. Coronary artery disease s/p recent PCI/TERESA to diagonal artery* Troponin trend is flat* Hx of CABG (2000)* s/p stent placement to diagonal artery on 07/02/23. Still need staged PCI to RCA. * Echocardiogram preserved LVEF.* PPI: lansoprazole 30 mg BID* Plavix dc'd (08/30/23), switched to Eliquis (afib) and ASA - tx decision discussed in depth with 2. Elevated LFTs/acute cholecystitis/liver abscess* s/p cholecystostomy tube placement. * ID on board managing antibiotic* GI on board* s/p EGD: nonbleeding ulcer 3. AMS: MRI brain showed small subacute ischemia in the L coronary radiata * MRI of the brain unchanged 4. Tachycardia with PVCs and PACs/Paroxysmal atrial fibrillation* Tele: frequent PVCs and PACs and intermittent afb * JJI6MQ1-VXQo score 6, recommend AC * HASBLED 4* continue Eliquis 5 mg BID plus ASA 81 mg daily. * continue amiodarone 200 mg BID to suppress PVC and for afib rate control* decrease metoprolol to 50 mg BID 5. Anemia* hgb 6.3 up to 8.9->8.6->6.9->7->8.7->8.6->8.3->8.8* s/p 2 units PRBCs 08/20/23, 1 unit PRBC 08/26/23* On PPI* GI on board, s/p EGD showed nonbleeding ulcer Waiting for placement.Medical decision making by Dr. Daniel. Lisa Daniel 09/04/23 0821:Attestations Physician AttestationAgree w/findings plan:I have seen and examined the pt, I Agree with the findings and plan as documented by Esther Buckner. at 1336 at 0821 RPT #:[id number] OF REPORTPRProgress [id number]:03:00G.[id number] for patient mkwgUKCRETFBOEZHHZ1080-00-55L50:36:32 [facility] 2023-09-02 14:16:00 [id number]/MWBHJeBh8uo jW3TfmXXJqxC7+gZxD+ nCBIeVa2dBrVjUQbN0795-01-03U77:16:00 [facility] CenterHospitalist Progress NoteREPORT#:[id number] REPORT STATUS: SignedREPORT INITIALIZATION DATE:09/02/23 TIME: 1415 PATIENT: MISSY CANALES UNIT #: [id number]#: [id number] [address] AGE: 68 SEX: M ATTEND: Raphael Ly MDA AUTHOR: Clyde Lares SERVICE DT/TIME: 09/02/23 1416* ALL edits or amendments must be made on the electronic/computer document * SubjectiveChief complaint:Patient is doing well this afternoon, denies any acute complaint Objective GeneralVS/I O:Vital Signs: Date Time Temp Pulse Resp B/P B/P Pulse O2 O2 Flow FiO2 Mean Ox Delivery Rate 09/01 0813 98.4 90 16 106/67 80.2 98 Room air 09/01 0450 99.1 95 17 106/66 79.4 99 Room air 08/31 2341 100.0 106 18 112/69 83.7 98 Room air 08/31 2033 100.8 100 16 118/69 85.2 100 Room air 08/31 1624 91 17 95/60 71.7 100 PATIENT WEIGHT: Weight (lb): 177Weight (oz): 14.61Weight (kg): 80.286 Medications:Active Meds + DC'd Last 24 HrsPotassium Chloride (POTASSIUM CHLORIDE 20MEQ TAB.ER) 40 MEQ Q2H PO (DC) Collagenase (SANTYL 2GM TOPICAL) 1 APPLIC DAILY TOPICAL Mupirocin (BACTROBAN 2% 22 GM OINTMENT) 1 APPLIC BID TOPICAL Zinc Oxide (ZINC OXIDE 30 GM OINTMENT) 1 APPLIC BID TOPICAL Amiodarone HCl (CORDARONE) 200 MG BID 9A 5P FEED-TUBE Apixaban (ELIQUIS 5MG TABLET) 5 MG BID 9A 5P PO Pantoprazole (PROTONIX) 40 MG BID AC PO Insulin Glargine (Semglee) 20 UNIT DAILY SUBQ Tamsulosin HCl (Flomax 0.4 mg) 0.4 MG PC BK PO Insulin Human Lispro (HUMALOG) 0 AC HS SUBQ Atorvastatin Calcium (LIPITOR) 40 MG BEDTIME PO Lactulose (LACTULOSE) 20 GM Q12HR PO Senna/Docusate Sodium (SENOKOT S) 1 TAB Q12HR PO Metoprolol Tartrate (LOPRESSOR) 50 MG Q8HR PO Allopurinol (ZYLOPRIM) 300 MG DAILY PO Aspirin (ASPIRIN) 81 MG DAILY PO Acetaminophen (TYLENOL) 650 MG Q6H PRN PRN PO Bisacodyl (DULCOLAX) 10 MG DAILY PRN PRN RECTAL Polyethylene Glycol (MIRALAX) 17 GM Q12H PO Dextrose/Water (DEXTROSE 10% IN WATER) 125 ML ASDIR PRN IV (CKD) Dextrose/Water (DEXTROSE 10% IN WATER) 250 ML ASDIR PRN IV (CKD) Glucagon (GLUCAGON) 1 MG ASDIR PRN IM Sodium Chloride (SODIUM CHLORIDE 0.9%) 250 ML BOLUS PRN IV Latanoprost (XALATAN 2.5 ML OPHTH SOLN) 1 DROP BEDTIME EACH EYE Timolol Maleate (TIMOPTIC 0.5% 5 ML OPHTH SOLN) 1 DROP BID EACH EYE Brimonidine Tartrate (Alphagan-P 0.2% 5 ML OPHTH SOLN) 1 DROP Q8HR EACH EYE Hydralazine HCl (APRESOLINE) 10 MG Q6H PRN PRN IV Ondansetron HCl (ZOFRAN) 4 MG Q4H PRN PRN IV Physical ExamGeneral appearance: alert, awakeHead/Eyes: atraumatic, normocephalic, PERRLAENT: moist mucosal membranes, normal dentitionNeck: full range of motion, non-tender, no JVDCardiovascular: normal heart sounds, regular rate rhythmRespiratory: aerating well, symmetric expansion, no distressAbdomen: non-tender, normal bowel sounds, jtube present with minimal collection (liver abscess drains in place)Genitourinary: no bladder distention, no flank painExtremities: no clubbing, no cyanosisMusculoskeletal: no muscle spasmNeuro/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: abnormal speech, disoriented, alert ResultsFindings/Data:Laboratory Tests 09/01 09/01 09/01 08/31 08/31 1103 0813 0437 2028 1623 Chemistry Sodium (134 - 147 mEq/L) 149 H Potassium (3.4 - 5.0 mEq/L) 2.6 *L Chloride (100 - 108 mEq/L) 117 H Carbon Dioxide (21 - 33 mEq/l) 24 Anion Gap (0 - 20) 11 BUN (7 - 25 mg/dL) 17 Creatinine (0.6 - 1.3 mg/dL) 0.8 Glomerular Filtr Rate (70 - 80) 95.2 H Glucose (77 - 141 mg/dL) 146 H POC Glucose (70 - 110 MG/DL) 156 H 137 H 193 H 188 H Calcium (8.0 - 10.5 mg/dL) 8.0 Laboratory Tests 09/01 0437 Hematology WBC (4.5 - 11.0 x10 3/uL) 8.5 RBC (4.00 - 5.60 x10 6/uL) 2.85 L Hgb (12.5 - 16.9 g/dL) 8.8 L Hct (37.5 - 50.7 %) 28.7 L MCV (81.0 - 99.0 fL) 100.7 H MCH (27.0 - 33.0 pg) 30.9 MCHC (33.0 - 37.0 g/dL) 30.7 L RDW (11.5 - 14.5 %) 17.1 H Plt Count (150 - 400 x10 3/uL) 217 MPV (7.0 - 9.0 fL) 10.6 H Neut % (Auto) (56.0 - 77.0 %) 52.7 L Lymph % (Auto) (14.0 - 32.0 %) 36.1 H Evans % (Auto) (4.8 - 9.0 %) 7.8 Eos % (Auto) (0.3 - 3.7 %) 3.1 Baso % (Auto) (0.0 - 2.0 %) 0.2 Neut # (Auto) (2.0 - 7.6 x10 3/uL) 4.46 Lymph # (Auto) (1.0 - 3.8 x10 3/uL) 3.05 Evans # (Auto) (0.1 - 0.8 x10 3/uL) 0.66 Eos # (Auto) (0.0 - 0.2 x10 3/uL) 0.26 H Baso # (Auto) (0.0 - 0.2 x10 3/uL) 0.02 Abs Immat Gran (auto) (0.00 - 0.03 x10 3/uL) 0.01 Immature Gran % (0.0 - 2.0 %) 0.1 Nucleated RBC % (0 - 0 %) 0.0 Nucleated RBCs # (Man) (0.0 - 0.1 x10 3/uL) 0.00 Treatment Prophylaxis Treatment ProphylaxisOxygen: room air Diagnosis, Assessment PlanProblem List/A P: 1. Acute cholangitis 2. Elevated LFTs 3. Liver abscess 4. Failure to thrive Free Text DxA P NotesFree text DxA P notes:68-year-old male admitted with abdominal pain, noted with NSTEMI, s/p stent placement to diagonal artery on 07/02/23. Still need staged PCI to RCA. Patient was noted with a liver abscess, seen by general surgery and GI, drain was placedby IR, has been tolerating antibiotics well. Patient was noted with some anemia, EGD was unremarkable but for gastric ulcers with no active bleeding.* Appreciated input from general surgery, GI, cardiology, and ID* Continue on PPI* Appreciated morning labs with hypokalemia* Will replace potassium* Follow-up with morning labs* Encourage oral intake and therapy* is at the bedside and all concerns addressed* Patient is awaiting SNF placement * See my DC summary from 08/22 for details at 1417 RPT #:[id number] OF REPORTPRProgress [id number]:16:00G.[id number] for patient nfneQGABYCAGZVJYHQ0188-09-36S95:17:59 [facility] 2023-09-02 14:05:00 [id number]/pr/IrmQnEyicGKzSY /gAAd9MbrqxAPWpQ3VD EAQTTwqg+TcA27VsS2070-92-19R14:05:00 [facility] ([facility])Wound Care Progress NoteREPORT#:[id number] REPORT STATUS: SignedREPORT INITIALIZATION DATE:09/02/23 TIME: 1405 PATIENT: MISSY CANALES UNIT #: [id number]#: [id number] [address] AGE: 68 SEX: M ATTEND: Raphael Ly MDADM AUTHOR: Tano Sanchez MDREPT SERVICE DT/TIME: 09/02/23 1405* ALL edits or amendments must be made on the electronic/computer document * SubjectiveChief complaint:both heels and sacralHPI:68-year-old male being seen for follow-up of all his wounds. is at bedside. Objective GeneralVS:Last Documented: Result Date Time Pulse Ox 98 09/01 812 B/P 106/67 09/01 812 B/P Mean 80.2 09/01 812 O2 Delivery Room air 09/01 812 Temp 36.9 09/01 812 Pulse 90 09/01 812 Resp 16 09/01 812 O2 Flow Rate 2 08/27 1022 FiO2 40 08/07 0752 PATIENT WEIGHT: Weight (lb): 177Weight (oz): 14.61Weight (kg): 80.286 Medications:Active Meds + DC'd Last 24 HrsPotassium Chloride (POTASSIUM CHLORIDE 20MEQ TAB.ER) 40 MEQ Q2H PO (DC) Collagenase (SANTYL 2GM TOPICAL) 1 APPLIC DAILY TOPICAL Mupirocin (BACTROBAN 2% 22 GM OINTMENT) 1 APPLIC BID TOPICAL Zinc Oxide (ZINC OXIDE 30 GM OINTMENT) 1 APPLIC BID TOPICAL Amiodarone HCl (CORDARONE) 200 MG BID 9A 5P FEED-TUBE Apixaban (ELIQUIS 5MG TABLET) 5 MG BID 9A 5P PO Pantoprazole (PROTONIX) 40 MG BID AC PO Insulin Glargine (Semglee) 20 UNIT DAILY SUBQ Tamsulosin HCl (Flomax 0.4 mg) 0.4 MG PC BK PO Insulin Human Lispro (HUMALOG) 0 AC HS SUBQ Atorvastatin Calcium (LIPITOR) 40 MG BEDTIME PO Lactulose (LACTULOSE) 20 GM Q12HR PO Senna/Docusate Sodium (SENOKOT S) 1 TAB Q12HR PO Metoprolol Tartrate (LOPRESSOR) 50 MG Q8HR PO Allopurinol (ZYLOPRIM) 300 MG DAILY PO Aspirin (ASPIRIN) 81 MG DAILY PO Acetaminophen (TYLENOL) 650 MG Q6H PRN PRN PO Bisacodyl (DULCOLAX) 10 MG DAILY PRN PRN RECTAL Polyethylene Glycol (MIRALAX) 17 GM Q12H PO Dextrose/Water (DEXTROSE 10% IN WATER) 125 ML ASDIR PRN IV (CKD) Dextrose/Water (DEXTROSE 10% IN WATER) 250 ML ASDIR PRN IV (CKD) Glucagon (GLUCAGON) 1 MG ASDIR PRN IM Sodium Chloride (SODIUM CHLORIDE 0.9%) 250 ML BOLUS PRN IV Latanoprost (XALATAN 2.5 ML OPHTH SOLN) 1 DROP BEDTIME EACH EYE Timolol Maleate (TIMOPTIC 0.5% 5 ML OPHTH SOLN) 1 DROP BID EACH EYE Brimonidine Tartrate (Alphagan-P 0.2% 5 ML OPHTH SOLN) 1 DROP Q8HR EACH EYE Hydralazine HCl (APRESOLINE) 10 MG Q6H PRN PRN IV Ondansetron HCl (ZOFRAN) 4 MG Q4H PRN PRN IV Physical ExamGeneral appearance: awakeRespiratory: no distress Wound AssessmentWound Assessment 1: Type/cause: pressure Wound location: heel (right and left) Site condition: necrotic tissue Stage of pressure ulcer: unstageableWound Assessment 2: Type/cause: pressure Wound location: sacral region Site condition: dehiscence, drainage Stage of pressure ulcer: stage III Wound margins: open ResultsFindings/Data:Laboratory Tests: 09/01 09/01 09/01 08/31 1103 0813 0437 2027Chemistry Sodium (134 - 147 mEq/L) 149 H Potassium (3.4 - 5.0 mEq/L) 2.6 *L Chloride (100 - 108 mEq/L) 117 H Carbon Dioxide (21 - 33 mEq/l) 24 Anion Gap (0 - 20) 11 BUN (7 - 25 mg/dL) 17 Creatinine (0.6 - 1.3 mg/dL) 0.8 Glomerular Filtr Rate (70 - 80) 95.2 H Glucose (77 - 141 mg/dL) 146 H POC Glucose (70 - 110 MG/DL) 156 H 137 H 193 H Calcium (8.0 - 10.5 mg/dL) 8.0Hematology WBC (4.5 - 11.0 x10 3/uL) 8.5 RBC (4.00 - 5.60 x10 6/uL) 2.85 L Hgb (12.5 - 16.9 g/dL) 8.8 L Hct (37.5 - 50.7 %) 28.7 L MCV (81.0 - 99.0 fL) 100.7 H MCH (27.0 - 33.0 pg) 30.9 MCHC (33.0 - 37.0 g/dL) 30.7 L RDW (11.5 - 14.5 %) 17.1 H Plt Count (150 - 400 x10 3/uL) 217 MPV (7.0 - 9.0 fL) 10.6 H Neut % (Auto) (56.0 - 77.0 %) 52.7 L Lymph % (Auto) (14.0 - 32.0 %) 36.1 H Evans % (Auto) (4.8 - 9.0 %) 7.8 Eos % (Auto) (0.3 - 3.7 %) 3.1 Baso % (Auto) (0.0 - 2.0 %) 0.2 Neut # (Auto) (2.0 - 7.6 x10 3/uL) 4.46 Lymph # (Auto) (1.0 - 3.8 x10 3/uL) 3.05 Evans # (Auto) (0.1 - 0.8 x10 3/uL) 0.66 Eos # (Auto) (0.0 - 0.2 x10 3/uL) 0.26 H Baso # (Auto) (0.0 - 0.2 x10 3/uL) 0.02 Abs Immat Gran (auto) (0.00 - 0.03 x10 3/uL) 0.01 Immature Gran % (0.0 - 2.0 %) 0.1 Nucleated RBC % (0 - 0 %) 0.0 Nucleated RBCs # (Man) (0.0 - 0.1 x10 3/uL) 0.00 08/31 1623 Chemistry POC Glucose (70 - 110 MG/DL) 188 H Diagnosis, Assessment PlanProblem List/A P: 1. Pressure ulcer, heel, left, unstageable 2. Pressure ulcer, heel, right, unstageable 3. Pressure ulcer of sacral region, stage 3 4. Liver abscess 5. Failure to thrive Free Text A P:09/02/2023: Will continue with the Santyl to the heel areas. Will continue with the gentamicin to the sacral area. Anemia, which will impede wound healing, defer to the primary care team. Albumin is on the lower end which will also impede wound healing. Recommend dietary input at 1430 RPT #:[id number] OF REPORTPNProcedure [id number]:05:00G.[id number] for patient peebSRFCBBXTQKAAKD8976-38-25Z49:31:00 [facility] 2023-09-02 13:48:00 [id number]+ PKtP5kQmOvWpGFJn8he p1Wf4UGDGVAOo5fK36104-86-79D81:48:00 [facility] ([facility])Gastroenterology Progress NoteREPORT#:[id number] REPORT STATUS: SignedREPORT INITIALIZATION DATE:09/02/23 TIME: 1347 PATIENT: MISSY CANALES UNIT #: [id number]#: [id number] [address] [birth year] AGE: 68 SEX: M ATTEND: Raphael Ly AUTHOR: Keyana Valero NPREPT SERVICE DT/TIME: 09/02/23 134* ALL edits or amendments must be made on the electronic/computer document * Keyana Valero 09/02/23 1348:SubjectiveChief complaint:Elevated LFtsHPI:68 year old man s/p cardiac stents 2 weeks ago who was sent to the hospital withelevated LFTs and possible acute cholecystitis. Pt had a stenet recently placed and was started on DAPT. Pt had labs showing elevated LFTs and was sent here forevaluation. Labs showed leukocytosis 15k. Elevated Tbili 3.7. Dbili 2.8. AST 79,ALT 105 and ALP 225. RUQ U/S showed possible cholecystitis and normal CBD of 4 mm in diatmeter. Pt denies pain. No dark urine or peyton-color stool 08/03; patient feels well. MRCP reviewed. No choledocholithiasis. Fluid collection at the liver could be related secondary to gallbladder perforation. LFTs and white count are down. 08/04: Plan for IR for cholecystostomy tube placement. LFts stable. WBC elevated.Was confused this am but improving. NO pain. No fevers. Added flagyl to his Abx regimen 08/05: NO new complaints. IR for abscess drain and cholecystostomy tube 08/06: Transferred overnight to ICU due to AMS. S/P IR with cholecystostomy tube and abscess drain 08/07: severely constipated. NGT in with feeds. drains in. More awake today and oriented. right sided weakness likely acute stroke. MRI brain reviewed- small stroke. KUB reviewed 08/08: Doing better according to . Sheldon removed. Still on feeds 08/09: Feeds at 20 ml/hr. Still no BM 08/10-Had BM last night. Denies n/v/abd pain 08/11-Patient dislodged DH. DH was replaced. +BM today 08/12: has been having BM during the weekend 08/13: No new events 08/14: eating and moving bowels. 08/15: doing well. 08/26: I was called again to evaluate pt. He has melena-like stool and dropped hisH/H. Pt is on DAPT 08/27: S/P EGD showing gastric ulcer in the incisura. flat pigmentation without high rebleeding stigmata. 08/28: H/H stable. Family at bedside. NO melena 08/29: Stbale H/H. NO family at bediside this am 08/30: Stable H/H. 08/31-No GI complaints, family at bedside. HGB 8.3 09/01-HGB 8.8. Last BM today Review of SystemsConstitutional:Denies: chills, fever. Skin:Denies: abrasion, contusion. Allergy/Immun:Denies: allergic reaction, anaphylaxis. Eyes:Denies: redness, discharge. ENT:Denies: hearing loss, nose bleeding. GI:Denies: abdominal pain, anorexia. Heme:Denies: adenopathy, petechiae. Psych:Denies: agitation, anxiety. Objective GeneralVS/I O:Last Documented: Result Date Time Pulse Ox 98 09/01 812 B/P 106/67 09/01 812 B/P Mean 80.2 09/01 812 O2 Delivery Room air 09/01 812 Temp 36.9 09/01 812 Pulse 90 09/01 812 Resp 16 09/01 812 O2 Flow Rate 2 08/27 1022 FiO2 40 08/07 0752 PATIENT WEIGHT: Weight (lb): 177Weight (oz): 14.61Weight (kg): 80.286 Medications:Active Meds + DC'd Last 24 HrsPotassium Chloride (POTASSIUM CHLORIDE 20MEQ TAB.ER) 40 MEQ Q2H PO (DC) Collagenase (SANTYL 2GM TOPICAL) 1 APPLIC DAILY TOPICAL Mupirocin (BACTROBAN 2% 22 GM OINTMENT) 1 APPLIC BID TOPICAL Zinc Oxide (ZINC OXIDE 30 GM OINTMENT) 1 APPLIC BID TOPICAL Amiodarone HCl (CORDARONE) 200 MG BID 9A 5P FEED-TUBE Apixaban (ELIQUIS 5MG TABLET) 5 MG BID 9A 5P PO Pantoprazole (PROTONIX) 40 MG BID AC PO Insulin Glargine (Semglee) 20 UNIT DAILY SUBQ Tamsulosin HCl (Flomax 0.4 mg) 0.4 MG PC BK PO Insulin Human Lispro (HUMALOG) 0 AC HS SUBQ Atorvastatin Calcium (LIPITOR) 40 MG BEDTIME PO Lactulose (LACTULOSE) 20 GM Q12HR PO Senna/Docusate Sodium (SENOKOT S) 1 TAB Q12HR PO Metoprolol Tartrate (LOPRESSOR) 50 MG Q8HR PO Allopurinol (ZYLOPRIM) 300 MG DAILY PO Aspirin (ASPIRIN) 81 MG DAILY PO Acetaminophen (TYLENOL) 650 MG Q6H PRN PRN PO Bisacodyl (DULCOLAX) 10 MG DAILY PRN PRN RECTAL Polyethylene Glycol (MIRALAX) 17 GM Q12H PO Dextrose/Water (DEXTROSE 10% IN WATER) 125 ML ASDIR PRN IV (CKD) Dextrose/Water (DEXTROSE 10% IN WATER) 250 ML ASDIR PRN IV (CKD) Glucagon (GLUCAGON) 1 MG ASDIR PRN IM Sodium Chloride (SODIUM CHLORIDE 0.9%) 250 ML BOLUS PRN IV Latanoprost (XALATAN 2.5 ML OPHTH SOLN) 1 DROP BEDTIME EACH EYE Timolol Maleate (TIMOPTIC 0.5% 5 ML OPHTH SOLN) 1 DROP BID EACH EYE Brimonidine Tartrate (Alphagan-P 0.2% 5 ML OPHTH SOLN) 1 DROP Q8HR EACH EYE Hydralazine HCl (APRESOLINE) 10 MG Q6H PRN PRN IV Ondansetron HCl (ZOFRAN) 4 MG Q4H PRN PRN IV Physical ExamGeneral appearance: confused, alert, awakeHEENT: EOMICardiovascular: normal heart soundsRespiratory: clear to auscultationAbdomen: non-tenderExtremities: no edemaSkin: dry, normal temperature ResultsFindings/Data:Laboratory Tests 09/02/23436:[Embedded Image Not Available]Laboratory Tests 09/01 09/01 09/01 08/31 08/31 1103 0813 4159 2027 1623 Chemistry Sodium (134 - 147 mEq/L) 149 H Potassium (3.4 - 5.0 mEq/L) 2.6 *L Chloride (100 - 108 mEq/L) 117 H Carbon Dioxide (21 - 33 mEq/l) 24 Anion Gap (0 - 20) 11 BUN (7 - 25 mg/dL) 17 Creatinine (0.6 - 1.3 mg/dL) 0.8 Glomerular Filtr Rate (70 - 80) 95.2 H Glucose (77 - 141 mg/dL) 146 H POC Glucose (70 - 110 MG/DL) 156 H 137 H 193 H 188 H Calcium (8.0 - 10.5 mg/dL) 8.0 Laboratory Tests 09/01 436 Hematology WBC (4.5 - 11.0 x10 3/uL) 8.5 RBC (4.00 - 5.60 x10 6/uL) 2.85 L Hgb (12.5 - 16.9 g/dL) 8.8 L Hct (37.5 - 50.7 %) 28.7 L MCV (81.0 - 99.0 fL) 100.7 H MCH (27.0 - 33.0 pg) 30.9 MCHC (33.0 - 37.0 g/dL) 30.7 L RDW (11.5 - 14.5 %) 17.1 H Plt Count (150 - 400 x10 3/uL) 217 MPV (7.0 - 9.0 fL) 10.6 H Neut % (Auto) (56.0 - 77.0 %) 52.7 L Lymph % (Auto) (14.0 - 32.0 %) 36.1 H Evans % (Auto) (4.8 - 9.0 %) 7.8 Eos % (Auto) (0.3 - 3.7 %) 3.1 Baso % (Auto) (0.0 - 2.0 %) 0.2 Neut # (Auto) (2.0 - 7.6 x10 3/uL) 4.46 Lymph # (Auto) (1.0 - 3.8 x10 3/uL) 3.05 Evans # (Auto) (0.1 - 0.8 x10 3/uL) 0.66 Eos # (Auto) (0.0 - 0.2 x10 3/uL) 0.26 H Baso # (Auto) (0.0 - 0.2 x10 3/uL) 0.02 Abs Immat Gran (auto) (0.00 - 0.03 x10 3/uL) 0.01 Immature Gran % (0.0 - 2.0 %) 0.1 Nucleated RBC % (0 - 0 %) 0.0 Nucleated RBCs # (Man) (0.0 - 0.1 x10 3/uL) 0.00 Results: labs reviewed Diagnosis, Assessment PlanFree Text A P:cholestatic pattern. CBD normal on RuQ U/S MRCP showed no evidence of choledocholithiasis.Large fluid collection within the liver could be secondary to gallbladder perforation.Recommend surgical evaluation again.Continue with antibiotics. Add flagyl s/p cholecystostomy tube and drainage of cystic fluid collection. Awaiting culture EGD showed gastric ulcer with flat pigmentPPI PO BID Will need repeat EGD in 6 weeks to confirm healing and rule out malignancyConsider removing hepatic drainWill follow Baldemar Huertas 10/08/23 1315:Diagnosis, Assessment PlanFree Text A P:The patient's EMR, along with exam and interview with my SPACECRAFT SYSTEMS ENGINEER, I agree with the plan as writtent above at 1349 at 1343 RPT #:[id number] OF REPORTPRProgress [id number]:48:00G.[id number] for patient pfzhIGMIMVHBBBDMGC7626-29-25O78:50:05 [facility] 2023-09-02 12:46:00 [id number] gV4kJHIal3I+Fu0kJl7 fdx6TPBLaOp03DJx91260-79-94K63:46:00 [facility] ([facility])Endocrinology Progress NoteREPORT#:[id number] REPORT STATUS: SignedREPORT INITIALIZATION DATE:09/02/23 TIME: 1246 PATIENT: MISSY CANALES UNIT #: [id number]#: [id number] [place] [facility] [place]OB: [birth year] AGE: 68 SEX: M ATTEND: Raphael Ly MDADM AUTHOR: Marlen Stevens DRY BOX OPERATOR-CREPT SERVICE DT/TIME: 09/02/23 1246* ALL edits or amendments must be made on the electronic/computer document * SubjectiveChief complaint:f/u DM IIlabile dietawaiting SNF placementglucose under 200, better from yesterday Objective GeneralVS:Last Documented: Result Date Time Pulse Ox 98 09/01 812 B/P 106/67 09/01 812 B/P Mean 80.2 09/01 812 O2 Delivery Room air 09/01 812 Temp 98.4 09/01 812 Pulse 90 09/01 812 Resp 16 09/01 812 O2 Flow Rate 2 08/27 1022 FiO2 40 08/07 0752 PATIENT WEIGHT: Weight (lb): 177Weight (oz): 14.61Weight (kg): 80.286 Medications:Active Meds + DC'd Last 24 HrsPotassium Chloride (POTASSIUM CHLORIDE 20MEQ TAB.ER) 40 MEQ Q2H PO (DC) Collagenase (SANTYL 2GM TOPICAL) 1 APPLIC DAILY TOPICAL Mupirocin (BACTROBAN 2% 22 GM OINTMENT) 1 APPLIC BID TOPICAL Zinc Oxide (ZINC OXIDE 30 GM OINTMENT) 1 APPLIC BID TOPICAL Amiodarone HCl (CORDARONE) 200 MG BID 9A 5P FEED-TUBE Apixaban (ELIQUIS 5MG TABLET) 5 MG BID 9A 5P PO Pantoprazole (PROTONIX) 40 MG BID AC PO Insulin Glargine (Semglee) 20 UNIT DAILY SUBQ Tamsulosin HCl (Flomax 0.4 mg) 0.4 MG PC BK PO Insulin Human Lispro (HUMALOG) 0 AC HS SUBQ Atorvastatin Calcium (LIPITOR) 40 MG BEDTIME PO Lactulose (LACTULOSE) 20 GM Q12HR PO Senna/Docusate Sodium (SENOKOT S) 1 TAB Q12HR PO Metoprolol Tartrate (LOPRESSOR) 50 MG Q8HR PO Allopurinol (ZYLOPRIM) 300 MG DAILY PO Aspirin (ASPIRIN) 81 MG DAILY PO Acetaminophen (TYLENOL) 650 MG Q6H PRN PRN PO Bisacodyl (DULCOLAX) 10 MG DAILY PRN PRN RECTAL Polyethylene Glycol (MIRALAX) 17 GM Q12H PO Dextrose/Water (DEXTROSE 10% IN WATER) 125 ML ASDIR PRN IV (CKD) Dextrose/Water (DEXTROSE 10% IN WATER) 250 ML ASDIR PRN IV (CKD) Glucagon (GLUCAGON) 1 MG ASDIR PRN IM Sodium Chloride (SODIUM CHLORIDE 0.9%) 250 ML BOLUS PRN IV Latanoprost (XALATAN 2.5 ML OPHTH SOLN) 1 DROP BEDTIME EACH EYE Timolol Maleate (TIMOPTIC 0.5% 5 ML OPHTH SOLN) 1 DROP BID EACH EYE Brimonidine Tartrate (Alphagan-P 0.2% 5 ML OPHTH SOLN) 1 DROP Q8HR EACH EYE Hydralazine HCl (APRESOLINE) 10 MG Q6H PRN PRN IV Ondansetron HCl (ZOFRAN) 4 MG Q4H PRN PRN IV Physical ExamGeneral appearance: alert, awakeHEENT: atraumatic, clear cornea, normocephalicNeck: suppleCardiovascular: regular rate rhythmRespiratory: on oxygenAbdomen: softGenitourinary: not indicatedExtremities: warmNeuro/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: alertSkin: warmFindings/data:Laboratory Tests: 09/01 09/01 09/01 08/31 1103 [id number] 8Chemistry Sodium (134 - 147 mEq/L) 149 H Potassium (3.4 - 5.0 mEq/L) 2.6 *L Chloride (100 - 108 mEq/L) 117 H Carbon Dioxide (21 - 33 mEq/l) 24 Anion Gap (0 - 20) 11 BUN (7 - 25 mg/dL) 17 Creatinine (0.6 - 1.3 mg/dL) 0.8 Glomerular Filtr Rate (70 - 80) 95.2 H Glucose (77 - 141 mg/dL) 146 H POC Glucose (70 - 110 MG/DL) 156 H 137 H 193 H Calcium (8.0 - 10.5 mg/dL) 8.0Hematology WBC (4.5 - 11.0 x10 3/uL) 8.5 RBC (4.00 - 5.60 x10 6/uL) 2.85 L Hgb (12.5 - 16.9 g/dL) 8.8 L Hct (37.5 - 50.7 %) 28.7 L MCV (81.0 - 99.0 fL) 100.7 H MCH (27.0 - 33.0 pg) 30.9 MCHC (33.0 - 37.0 g/dL) 30.7 L RDW (11.5 - 14.5 %) 17.1 H Plt Count (150 - 400 x10 3/uL) 217 MPV (7.0 - 9.0 fL) 10.6 H Neut % (Auto) (56.0 - 77.0 %) 52.7 L Lymph % (Auto) (14.0 - 32.0 %) 36.1 H Evans % (Auto) (4.8 - 9.0 %) 7.8 Eos % (Auto) (0.3 - 3.7 %) 3.1 Baso % (Auto) (0.0 - 2.0 %) 0.2 Neut # (Auto) (2.0 - 7.6 x10 3/uL) 4.46 Lymph # (Auto) (1.0 - 3.8 x10 3/uL) 3.05 Evans # (Auto) (0.1 - 0.8 x10 3/uL) 0.66 Eos # (Auto) (0.0 - 0.2 x10 3/uL) 0.26 H Baso # (Auto) (0.0 - 0.2 x10 3/uL) 0.02 Abs Immat Gran (auto) (0.00 - 0.03 x10 3/uL) 0.01 Immature Gran % (0.0 - 2.0 %) 0.1 Nucleated RBC % (0 - 0 %) 0.0 Nucleated RBCs # (Man) (0.0 - 0.1 x10 3/uL) 0.00 04/06 1623 Chemistry POC Glucose (70 - 110 MG/DL) 188 H Results: labs reviewed Diagnosis, Assessment PlanFree Text A P:1.DM ZLEntO5o 8.2adjust Lantus adjust Humalog monitor glucose diabetic diet DC Plan: Lantus, Humalog, follow at next available appointment. 2.Abnormal thyroid functions 08/06 TSH 0.07 FT4 1 recheck in a couple of days 3.Suspected ischemic strokeMRI brain without contrastEchocardiogramTelemetryneurology following 4.Coronary artery diseasePCI on July 03, 2023Echocardiogram preserved LVEFdual antiplateletscardiology following 5. Elevated LFTsGI following 6.MRCP with complex cystic fluid collectionpost drainage surgery following at 1247 at 1501 RPT #:[id number] OF REPORTPRProgress qlah5822-12-21J36:46:00G.[id number] for patient ildvUETFABJDIGWFBT2854-54-02I60:49:12 [facility] 2023-09-02 07:37:00 [id number] IYYPSCb+usnrL/LN7g4 yJifE77upsOlNW7q33802-73-79J11:37:00 [facility] ([facility])Infectious Dis. Progress NoteREPORT#:[id number] REPORT STATUS: SignedREPORT INITIALIZATION DATE:09/02/23 TIME: 736 PATIENT: MISSY CANALES UNIT #: [id number]#: [id number] [address] [birth year] AGE: 68 SEX: M ATTEND: Raphael Ly AUTHOR: Kajal Nguyen MDREPT SERVICE DT/TIME: 09/02/2337* ALL edits or amendments must be made on the electronic/computer document * SubjectiveChief complaint:Follow-up on bacteremia, hepatic abscess, cholecystitis, aspiration pneumoniaHPI:Review of systems is somewhat limited due to patient's limited responses. Nonetheless, he appears comfortable. present at bedside. No major overnight events.Patient reports:No: complaints. Objective Physical ExamWound/incision: Location:cholecystostomy tube and RUQ drain in placeHead/Eyes: atraumatic, normocephalicENT: moist mucosal membranesNeck: no JVDCardiovascular: regular rate rhythm, no murmurRespiratory: clear to auscultation, symmetric expansionAbdomen: non-tender, soft, no distention, percutaneous drains in place in RUQExtremities: no cyanosis, no edemaNeuro/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 Canales is a 68-year-old male with PMH of HTN, DMII, CAD s/p stent who came to [facility] initially with N/V and abdominal pain. His pain was started 2 days prior to admission. His work up showed elevated LFTs, bilirubin, troponin. His US abdomen showed cholelithiasis with distended gallbladder including material at the gallbladder neck concerning for impacted stone. Patient started on empiric antibiotics and had cultures done with blood culture showing gram negative bacilli. Patient has been febrile and tachycardic while here. GI and general surgery are consulted. Patient was found to have acute cholecystitis with a liver abscess. He had a drain in the gallbladder and in the abscess placed. Blood culture eventually grew Citrobacter and so did the abscess. *Fever--Recurrent after improvement--UA via straight cath (-)--Covid (-)--Flu (-)--F/U CT A/P, decreased liver absces; (+) LLL infiltrates c/w PNA*PNA--CT LLL infiltrates c/w aspiration*Bacteremia--Citrobacter--Source: Biliary*Liver abscess--MRCP showed 4.6 x 3.6 x 3.0 thick walled cystic lesion/fluid collection liver abutting GB fossa--S/P IR drain 08/05, cx CitrobacterCt scan of the abdomen showed no residuasl abscesson 08/29/23*Acute cholecystitis--S/P IR placed cholecystotomy tube ., cx Citrobacter*Acute stroke--MRI (+) subacute Left guo radiata--CTA neck (+) high grade stenosis*ARELY*DM2*HTN*CADFever: on 08/30/23 : blood cx drawn yesterday., ua and cx ordered not done Plan: -Patient has had > 7 days of piperacillin-tazobactam to cover for aspiration pneumonia.-Antibiotic treatment transitioned back to ceftriaxone and metronidazole on 08/22/2023 for coverage of liver abscess. dc iv abx if the urine cx and blood cx done on 08/30/[address] showed resolved liver abscess dced abx current antimicrobilas: none at 0504 RPT #:[id number] OF REPORTPRProgress rxrp9534-44-38V82:37:00G.[id number] for patient ukmeURRKHWTRUYSALV1040-87-47O99:04:42 [facility] 2023-09-01 15:19:00 [id number]/ygs/1F0JKbbs+AFKyZSLz5U wvdRhy4o6a8O98IsxDS xGFKXeCOgSTmML5CL7117-18-81P43:19:00 [facility] ([facility]Hospitalist Progress NoteREPORT#:[id number] REPORT STATUS: SignedREPORT INITIALIZATION DATE:09/01/23 TIME: 1518 PATIENT: MISSY CANALES UNIT #: [id number]#: [id number] [address] [birth year] AGE: 68 SEX: M ATTEND: Raphael Ly MDA AUTHOR: Clyde Lares DOREPT SERVICE DT/TIME: 09/01/231518* ALL edits or amendments must be made on the electronic/computer document * SubjectiveChief complaint:Patient is resting comfortably in bed in no acute distress Objective GeneralVS/I O:Vital Signs: Date Time Temp Pulse Resp B/P B/P Pulse O2 O2 Flow FiO2 Mean Ox Delivery Rate 08/31 1207 90 15 117/68 84.4 98 08/31 0713 91 16 94/60 71.5 98 08/31 0455 99.1 101 18 108/65 79.5 99 Room air 04/05 2354 99.9 106 16 96/57 69.8 97 Room air / 1931 100.2 101 18 104/60 74.7 98 Room air 08/30 1616 99.3 55 17 123/62 82.4 100 24 hour I O ending at 0700: 0406 0700 04/05 1900 Intake Total Output Total 70 Balance -70 Output, 70 Drainage PATIENT WEIGHT: Weight (lb): 177Weight (oz): 14.61Weight (kg): 80.286 Medications:Active Meds + DC'd Last 24 HrsCollagenase (SANTYL 2GM TOPICAL) 1 APPLIC DAILY TOPICAL Mupirocin (BACTROBAN 2% 22 GM OINTMENT) 1 APPLIC BID TOPICAL Zinc Oxide (ZINC OXIDE 30 GM OINTMENT) 1 APPLIC BID TOPICAL Amiodarone HCl (CORDARONE) 200 MG BID 9A 5P FEED-TUBE Apixaban (ELIQUIS 5MG TABLET) 5 MG BID 9A 5P PO Pantoprazole (PROTONIX) 40 MG BID AC PO Insulin Glargine (Semglee) 20 UNIT DAILY SUBQ Tamsulosin HCl (Flomax 0.4 mg) 0.4 MG PC BK PO Insulin Human Lispro (HUMALOG) 0 AC HS SUBQ Atorvastatin Calcium (LIPITOR) 40 MG BEDTIME PO Lactulose (LACTULOSE) 20 GM Q12HR PO Senna/Docusate Sodium (SENOKOT S) 1 TAB Q12HR PO Metoprolol Tartrate (LOPRESSOR) 50 MG Q8HR PO Allopurinol (ZYLOPRIM) 300 MG DAILY PO Aspirin (ASPIRIN) 81 MG DAILY PO Acetaminophen (TYLENOL) 650 MG Q6H PRN PRN PO Bisacodyl (DULCOLAX) 10 MG DAILY PRN PRN RECTAL Polyethylene Glycol (MIRALAX) 17 GM Q12H PO Dextrose/Water (DEXTROSE 10% IN WATER) 125 ML ASDIR PRN IV (CKD) Dextrose/Water (DEXTROSE 10% IN WATER) 250 ML ASDIR PRN IV (CKD) Glucagon (GLUCAGON) 1 MG ASDIR PRN IM Sodium Chloride (SODIUM CHLORIDE 0.9%) 250 ML BOLUS PRN IV Latanoprost (XALATAN 2.5 ML OPHTH SOLN) 1 DROP BEDTIME EACH EYE Timolol Maleate (TIMOPTIC 0.5% 5 ML OPHTH SOLN) 1 DROP BID EACH EYE Brimonidine Tartrate (Alphagan-P 0.2% 5 ML OPHTH SOLN) 1 DROP Q8HR EACH EYE Hydralazine HCl (APRESOLINE) 10 MG Q6H PRN PRN IV Ondansetron HCl (ZOFRAN) 4 MG Q4H PRN PRN IV Physical ExamGeneral appearance: alert, awakeHead/Eyes: atraumatic, normocephalic, PERRLAENT: moist mucosal membranes, normal dentitionNeck: full range of motion, non-tender, no JVDCardiovascular: normal heart sounds, regular rate rhythmRespiratory: aerating well, symmetric expansion, no distressAbdomen: non-tender, normal bowel sounds, jtube present with minimal collection (liver abscess drains in place)Genitourinary: no bladder distention, no flank painExtremities: no clubbing, no cyanosisMusculoskeletal: no muscle spasmNeuro/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: abnormal speech, disoriented, alert ResultsFindings/Data:Laboratory Tests 08/31 08/31 08/30 08/30 1205 0712 1934 1615 Chemistry POC Glucose (70 - 110 MG/DL) 211 H 207 H 178 H 153 H Diagnosis, Assessment PlanProblem List/A P: 1. Acute cholangitis 2. Elevated LFTs 3. Liver abscess 4. Failure to thrive Free Text DxA P NotesFree text DxA P notes:68-year-old male admitted with abdominal pain, noted with NSTEMI, s/p stent placement to diagonal artery on 07/02/23. Still need staged PCI to RCA. Patient was noted with a liver abscess, seen by general surgery and GI, drain was placedby IR, has been tolerating antibiotics well. Patient was noted with some anemia, EGD was unremarkable but for gastric ulcers with no active bleeding.* Appreciated input from general surgery, GI, cardiology, and ID* Continue on PPI* Encourage oral intake and therapy* is at the bedside and all concerns addressed* Patient is awaiting SNF placement * See my DC summary from 08/22 for details at 1520 RPT #:[id number] OF REPORTPRProgress llvp1473-12-61X78:19:00G.[id number] for patient vkdeBLRAGDJOSPKJHT9624-87-24D12:21:09 [facility] 2023-09-01 14:06:00 [id number]/ KVWWeJb9oV/5LMWvNu2 cMElypPjk9HmCN0U84381-86-08U60:06:00 [facility] Progress NoteREPORT#:[id number] REPORT STATUS: SignedREPORT INITIALIZATION DATE:09/01/23 TIME: 1405 PATIENT: MISSY CANALES UNIT #: [id number]#: [id number] [address] [birth year] AGE: 68 SEX: M ATTEND: Raphael Ly MDA AUTHOR: Keyana Valero NPREPT SERVICE DT/TIME: 09/01/23 140* ALL edits or amendments must be made on the electronic/computer document * Keyana Valero 09/01/23 1406:SubjectiveChief complaint:Elevated LFtsHPI:68 year old man s/p cardiac stents 2 weeks ago who was sent to the hospital withelevated LFTs and possible acute cholecystitis. Pt had a stenet recently placed and was started on DAPT. Pt had labs showing elevated LFTs and was sent here forevaluation. Labs showed leukocytosis 15k. Elevated Tbili 3.7. Dbili 2.8. AST 79,ALT 105 and ALP 225. RUQ U/S showed possible cholecystitis and normal CBD of 4 mm in diatmeter. Pt denies pain. No dark urine or peyton-color stool 08/03; patient feels well. MRCP reviewed. No choledocholithiasis. Fluid collection at the liver could be related secondary to gallbladder perforation. LFTs and white count are down. 08/04: Plan for IR for cholecystostomy tube placement. LFts stable. WBC elevated.Was confused this am but improving. NO pain. No fevers. Added flagyl to his Abx regimen 08/05: NO new complaints. IR for abscess drain and cholecystostomy tube 08/06: Transferred overnight to ICU due to AMS. S/P IR with cholecystostomy tube and abscess drain 08/07: severely constipated. NGT in with feeds. drains in. More awake today and oriented. right sided weakness likely acute stroke. MRI brain reviewed- small stroke. KUB reviewed 08/08: Doing better according to . Sheldon removed. Still on feeds 08/09: Feeds at 20 ml/hr. Still no BM 08/10-Had BM last night. Denies n/v/abd pain 08/11-Patient dislodged DH. DH was replaced. +BM today 08/12: has been having BM during the weekend 08/13: No new events 08/14: eating and moving bowels. 08/15: doing well. 08/26: I was called again to evaluate pt. He has melena-like stool and dropped hisH/H. Pt is on DAPT 08/27: S/P EGD showing gastric ulcer in the incisura. flat pigmentation without high rebleeding stigmata. 08/28: H/H stable. Family at bedside. NO melena 08/29: St[place]ale H/H. NO family at [facility] this am 08/30: Stable H/H. 08/31-No GI complaints, family at bedside. HGB 8.3 Review of SystemsAll systems rev neg: except as marked Objective GeneralVS/I O:Last Documented: Result Date Time Pulse Ox 98 08/31 1207 B/P 117/68 08/31 1207 B/P Mean 84.4 08/31 1207 Pulse 90 08/31 1207 Resp 15 08/31 1207 O2 Delivery Room air 08/31 0455 Temp 37.3 08/31 0455 O2 Flow Rate 2 08/27 1022 FiO2 40 08/07 0752 24 hour I O ending at 0700: 08/31 0700 08/30 1900 Intake Total Output Total 70 Balance -70 Output, 70 Drainage PATIENT WEIGHT: Weight (lb): 177Weight (oz): 14.61Weight (kg): 80.286 Medications:Active Meds + DC'd Last 24 HrsCollagenase (SANTYL 2GM TOPICAL) 1 APPLIC DAILY TOPICAL Mupirocin (BACTROBAN 2% 22 GM OINTMENT) 1 APPLIC BID TOPICAL Zinc Oxide (ZINC OXIDE 30 GM OINTMENT) 1 APPLIC BID TOPICAL Amiodarone HCl (CORDARONE) 200 MG BID 9A 5P FEED-TUBE Apixaban (ELIQUIS 5MG TABLET) 5 MG BID 9A 5P PO Pantoprazole (PROTONIX) 40 MG BID AC PO Insulin Glargine (Semglee) 20 UNIT DAILY SUBQ Tamsulosin HCl (Flomax 0.4 mg) 0.4 MG PC BK PO Insulin Human Lispro (HUMALOG) 0 AC HS SUBQ Atorvastatin Calcium (LIPITOR) 40 MG BEDTIME PO Lactulose (LACTULOSE) 20 GM Q12HR PO Senna/Docusate Sodium (SENOKOT S) 1 TAB Q12HR PO Metoprolol Tartrate (LOPRESSOR) 50 MG Q8HR PO Allopurinol (ZYLOPRIM) 300 MG DAILY PO Aspirin (ASPIRIN) 81 MG DAILY PO Acetaminophen (TYLENOL) 650 MG Q6H PRN PRN PO Bisacodyl (DULCOLAX) 10 MG DAILY PRN PRN RECTAL Polyethylene Glycol (MIRALAX) 17 GM Q12H PO Dextrose/Water (DEXTROSE 10% IN WATER) 125 ML ASDIR PRN IV (CKD) Dextrose/Water (DEXTROSE 10% IN WATER) 250 ML ASDIR PRN IV (CKD) Glucagon (GLUCAGON) 1 MG ASDIR PRN IM Sodium Chloride (SODIUM CHLORIDE 0.9%) 250 ML BOLUS PRN IV Latanoprost (XALATAN 2.5 ML OPHTH SOLN) 1 DROP BEDTIME EACH EYE Timolol Maleate (TIMOPTIC 0.5% 5 ML OPHTH SOLN) 1 DROP BID EACH EYE Brimonidine Tartrate (Alphagan-P 0.2% 5 ML OPHTH SOLN) 1 DROP Q8HR EACH EYE Hydralazine HCl (APRESOLINE) 10 MG Q6H PRN PRN IV Ondansetron HCl (ZOFRAN) 4 MG Q4H PRN PRN IV Physical ExamGeneral appearance: alert, awake, orientedHEENT: EOMICardiovascular: normal heart soundsRespiratory: clear to auscultationAbdomen: non-tenderExtremities: no edemaSkin: dry, normal temperature ResultsFindings/Data:Laboratory Tests 08/31 08/31 08/30 08/30 1205 0712 1934 1615 Chemistry POC Glucose (70 - 110 MG/DL) 211 H 207 H 178 H 153 H Laboratory Tests 08/30 1434 Urines Urine Color (YEL/STRAW) YELLOW Urine Appearance (CLEAR) CLEAR Urine pH (5.0 - 7.0) 5.0 Ur Specific [place] (1.005 - 1.030) 1.020 Urine Protein (NEGATIVE) 1+ H Urine Glucose (UA) (NEGATIVE) NEGATIVE Urine Ketones (NEGATIVE) TRACE H Urine Blood (NEGATIVE) NEGATIVE Urine Nitrite (NEGATIVE) NEGATIVE Urine Bilirubin (NEGATIVE) NEGATIVE Urine Urobilinogen (0.2 - 1.0 mg/dL) 0.2 Ur Leukocyte Esterase (NEGATIVE) NEGATIVE Urine RBC (0 - 3 RBC/HPF) NONE SEEN Urine WBC (0 - 3 WBC/HPF) 0-3 Ur Squamous Epith Cells (NONE SEEN /HPF) 0-5 Urine Bacteria (NONE SEEN /HPF) TRACE Hyaline Casts (NONE SEEN /LPF) 11-20 Urine Mucus (NONE SEEN /LPF) TRACE Diagnosis, Assessment PlanFree Text A P:cholestatic pattern. CBD normal on RuQ U/S MRCP showed no evidence of choledocholithiasis.Large fluid collection within the liver could be secondary to gallbladder perforation.Recommend surgical evaluation again.Continue with antibiotics. Add flagyl s/p cholecystostomy tube and drainage of cystic fluid collection. Awaiting culture EGD showed gastric ulcer with flat pigmentPPI PO BID Will need repeat EGD in 6 weeks to confirm healing and rule out malignancyConsider removing hepatic drainWill follow Baldemar Huertas 10/08/23 1314:Diagnosis, Assessment PlanFree Text A P:The patient's EMR, along with exam and interview with my SPACECRAFT SYSTEMS ENGINEER, I agree with the plan as writtent above at 1408 at 1343 RPT #:[id number] OF REPORTPRProgress lxqy5977-91-99N01:06:00G.[id number] for patient qlmeXISMENBUIYFQYR6869-34-16L11:08:10 [facility] 2023-09-01 12:45:00 [id number] V9gOZxsQM5ssWC7AvBw ApHMY+/prUIfa2gWb0156-68-00J47:45:00 [facility]ocr[facility] Progress NoteREPORT#:[id number] REPORT STATUS: SignedREPORT INITIALIZATION DATE:09/01/23 TIME: 1245 PATIENT: MISSY CANALES UNIT #: [id number]#: [id number] [address] [birth year] AGE: 68 SEX: M ATTEND: Raphael Ly MDADM AUTHOR: Marlen Stevens DRY BOX OPERATOR-CREPT SERVICE DT/TIME: 09/01/23 1245* ALL edits or amendments must be made on the electronic/computer document * SubjectiveChief complaint:f/u DM IIlabile dietawaiting SNF placementglucose over 200 todayfamily states he is eating better Objective GeneralVS:Last Documented: Result Date Time Pulse Ox 98 09/01 812 B/P 106/67 09/01 08 B/P Mean 80.2 09/01 08 O2 Delivery Room air 09/01 812 Temp 98.4 09/01 812 Pulse 90 09/01 812 Resp 16 09/01 812 O2 Flow Rate 2 08/27 1022 FiO2 40 08/07 0752 PATIENT WEIGHT: Weight (lb): 177Weight (oz): 14.61Weight (kg): 80.286 Medications:Active Meds + DC'd Last 24 HrsPotassium Chloride (POTASSIUM CHLORIDE 20MEQ TAB.ER) 40 MEQ Q2H PO (DC) Collagenase (SANTYL 2GM TOPICAL) 1 APPLIC DAILY TOPICAL Mupirocin (BACTROBAN 2% 22 GM OINTMENT) 1 APPLIC BID TOPICAL Zinc Oxide (ZINC OXIDE 30 GM OINTMENT) 1 APPLIC BID TOPICAL Amiodarone HCl (CORDARONE) 200 MG BID 9A 5P FEED-TUBE Apixaban (ELIQUIS 5MG TABLET) 5 MG BID 9A 5P PO Pantoprazole (PROTONIX) 40 MG BID AC PO Insulin Glargine (Semglee) 20 UNIT DAILY SUBQ Tamsulosin HCl (Flomax 0.4 mg) 0.4 MG PC BK PO Insulin Human Lispro (HUMALOG) 0 AC HS SUBQ Atorvastatin Calcium (LIPITOR) 40 MG BEDTIME PO Lactulose (LACTULOSE) 20 GM Q12HR PO Senna/Docusate Sodium (SENOKOT S) 1 TAB Q12HR PO Metoprolol Tartrate (LOPRESSOR) 50 MG Q8HR PO Allopurinol (ZYLOPRIM) 300 MG DAILY PO Aspirin (ASPIRIN) 81 MG DAILY PO Acetaminophen (TYLENOL) 650 MG Q6H PRN PRN PO Bisacodyl (DULCOLAX) 10 MG DAILY PRN PRN RECTAL Polyethylene Glycol (MIRALAX) 17 GM Q12H PO Dextrose/Water (DEXTROSE 10% IN WATER) 125 ML ASDIR PRN IV (CKD) Dextrose/Water (DEXTROSE 10% IN WATER) 250 ML ASDIR PRN IV (CKD) Glucagon (GLUCAGON) 1 MG ASDIR PRN IM Sodium Chloride (SODIUM CHLORIDE 0.9%) 250 ML BOLUS PRN IV Latanoprost (XALATAN 2.5 ML OPHTH SOLN) 1 DROP BEDTIME EACH EYE Timolol Maleate (TIMOPTIC 0.5% 5 ML OPHTH SOLN) 1 DROP BID EACH EYE Brimonidine Tartrate (Alphagan-P 0.2% 5 ML OPHTH SOLN) 1 DROP Q8HR EACH EYE Hydralazine HCl (APRESOLINE) 10 MG Q6H PRN PRN IV Ondansetron HCl (ZOFRAN) 4 MG Q4H PRN PRN IV Dietitian nutrition assessmentThe data set between the solid lines has been imported from the dietitian's assessment. BMI Calculated: 27.7Nutrition related diagnosis: OverweightNutrition diagnosis details: BMI 25-29.9Nutrition problem: Inadequate oral intakeNutrition etiology: PT LETHARGIC /SWALLOWING Nutrition signs and symptoms: ENTERAL NUTRITION TO MEET , ENERGY NEEDS , (DIET ADVANCED TO PUREED AND, TOLERATED.)Nutrition prescription: 1. RECOMMEND PUREED CCD5 DIET. 2. PROVIDE GLUCERNA TID WITH MEALS/SAMEER BID 3. MONITOR PO, WT, LABS, BM.Dietitian name: Rohan Sarah, DIETAssessment completed: 08/31/23 Physical ExamGeneral appearance: alert, awakeHEENT: atraumatic, clear cornea, normocephalicNeck: suppleCardiovascular: regular rate rhythmRespiratory: on oxygenAbdomen: softGenitourinary: not indicatedExtremities: warmNeuro/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: alertSkin: warmFindings/data:Laboratory Tests: 09/01 09/01 09/01 08/31 1103 0813 0437 2028Chemistry Sodium (134 - 147 mEq/L) 149 H Potassium (3.4 - 5.0 mEq/L) 2.6 *L Chloride (100 - 108 mEq/L) 117 H Carbon Dioxide (21 - 33 mEq/l) 24 Anion Gap (0 - 20) 11 BUN (7 - 25 mg/dL) 17 Creatinine (0.6 - 1.3 mg/dL) 0.8 Glomerular Filtr Rate (70 - 80) 95.2 H Glucose (77 - 141 mg/dL) 146 H POC Glucose (70 - 110 MG/DL) 156 H 137 H 193 H Calcium (8.0 - 10.5 mg/dL) 8.0Hematology WBC (4.5 - 11.0 x10 3/uL) 8.5 RBC (4.00 - 5.60 x10 6/uL) 2.85 L Hgb (12.5 - 16.9 g/dL) 8.8 L Hct (37.5 - 50.7 %) 28.7 L MCV (81.0 - 99.0 fL) 100.7 H MCH (27.0 - 33.0 pg) 30.9 MCHC (33.0 - 37.0 g/dL) 30.7 L RDW (11.5 - 14.5 %) 17.1 H Plt Count (150 - 400 x10 3/uL) 217 MPV (7.0 - 9.0 fL) 10.6 H Neut % (Auto) (56.0 - 77.0 %) 52.7 L Lymph % (Auto) (14.0 - 32.0 %) 36.1 H Evans % (Auto) (4.8 - 9.0 %) 7.8 Eos % (Auto) (0.3 - 3.7 %) 3.1 Baso % (Auto) (0.0 - 2.0 %) 0.2 Neut # (Auto) (2.0 - 7.6 x10 3/uL) 4.46 Lymph # (Auto) (1.0 - 3.8 x10 3/uL) 3.05 Evans # (Auto) (0.1 - 0.8 x10 3/uL) 0.66 Eos # (Auto) (0.0 - 0.2 x10 3/uL) 0.26 H Baso # (Auto) (0.0 - 0.2 x10 3/uL) 0.02 Abs Immat Gran (auto) (0.00 - 0.03 x10 3/uL) 0.01 Immature Gran % (0.0 - 2.0 %) 0.1 Nucleated RBC % (0 - 0 %) 0.0 Nucleated RBCs # (Man) (0.0 - 0.1 x10 3/uL) 0.00 08/31 1623 Chemistry POC Glucose (70 - 110 MG/DL) 188 H Results: labs reviewed Diagnosis, Assessment PlanFree Text A P:1.DM FJUbhV4d 8.2adjust Lantus adjust Humalog monitor glucose diabetic diet DC Plan: Lantus, Humalog, follow at next available appointment. 2.Abnormal thyroid functions 08/06 TSH 0.07 FT4 1 recheck in a couple of days 3.Suspected ischemic strokeMRI brain without contrastEchocardiogramTelemetryneurology following 4.Coronary artery diseasePCI on July 03, 2023Echocardiogram preserved LVEFdual antiplateletscardiology following 5. Elevated LFTsGI following 6.MRCP with complex cystic fluid collectionpost drainage surgery following at 1246 at 1500 RPT #:[id number] OF REPORTPRProgress ygke6049-01-50P25:45:00G.[id number] for patient auhkXKQPMWWSGPJURY0200-51-87S24:49:02 [facility] 2023-08-31 12:30:00 [id number]/UB/riKMTylI SifGa6rBJmkw1JSR4+C C1LVs9rkG178V9H3X1547-34-01U87:30:00 [facility] ([facility])Endocrinology Progress NoteREPORT#:[id number] REPORT STATUS: SignedREPORT INITIALIZATION DATE:08/31/23 TIME: 1230 PATIENT: MISSY CANALES UNIT #: [id number]#: [id number] [address] [birth year] AGE: 68 SEX: M ATTEND: Raphael Ly MDADM AUTHOR: Agus Duckworth APRNNPREPT SERVICE DT/TIME: 08/31/23 1150* ALL edits or amendments must be made on the electronic/computer document * SubjectiveChief complaint:f/u DM IIlabile dietawaiting SNF placement Objective GeneralVS:Last Documented: Result Date Time Pulse Ox 100 08/30 1122 B/P 132/85 08/30 1122 B/P Mean 100.5 08/30 1122 Temp 99.0 08/30 1122 Pulse 102 08/30 1122 Resp 15 08/30 1122 O2 Delivery Room air 08/30 0515 O2 Flow Rate 2 08/27 1022 FiO2 40 08/07 0752 PATIENT WEIGHT: Weight (lb): 177Weight (oz): 14.61Weight (kg): 80.286 Medications:Active Meds + DC'd Last 24 HrsCollagenase (SANTYL 2GM TOPICAL) 1 APPLIC DAILY TOPICAL (PEND) Mupirocin (BACTROBAN 2% 22 GM OINTMENT) 1 APPLIC BID TOPICAL Zinc Oxide (ZINC OXIDE 30 GM OINTMENT) 1 APPLIC BID TOPICAL Amiodarone HCl (CORDARONE) 200 MG BID 9A 5P FEED-TUBE Insulin Human Lispro (HUMALOG) 2 UNIT AC SUBQ (DC) Apixaban (ELIQUIS 5MG TABLET) 5 MG BID 9A 5P PO Pantoprazole (PROTONIX) 40 MG BID AC PO Insulin Glargine (Semglee) 20 UNIT DAILY SUBQ Tamsulosin HCl (Flomax 0.4 mg) 0.4 MG PC BK PO Insulin Human Lispro (HUMALOG) 0 AC HS SUBQ Atorvastatin Calcium (LIPITOR) 40 MG BEDTIME PO Lactulose (LACTULOSE) 20 GM Q12HR PO Senna/Docusate Sodium (SENOKOT S) 1 TAB Q12HR PO Metoprolol Tartrate (LOPRESSOR) 50 MG Q8HR PO Allopurinol (ZYLOPRIM) 300 MG DAILY PO Aspirin (ASPIRIN) 81 MG DAILY PO Acetaminophen (TYLENOL) 650 MG Q6H PRN PRN PO Bisacodyl (DULCOLAX) 10 MG DAILY PRN PRN RECTAL Polyethylene Glycol (MIRALAX) 17 GM Q12H PO Dextrose/Water (DEXTROSE 10% IN WATER) 125 ML ASDIR PRN IV (CKD) Dextrose/Water (DEXTROSE 10% IN WATER) 250 ML ASDIR PRN IV (CKD) Glucagon (GLUCAGON) 1 MG ASDIR PRN IM Sodium Chloride (SODIUM CHLORIDE 0.9%) 250 ML BOLUS PRN IV Latanoprost (XALATAN 2.5 ML OPHTH SOLN) 1 DROP BEDTIME EACH EYE Timolol Maleate (TIMOPTIC 0.5% 5 ML OPHTH SOLN) 1 DROP BID EACH EYE Brimonidine Tartrate (Alphagan-P 0.2% 5 ML OPHTH SOLN) 1 DROP Q8HR EACH EYE Hydralazine HCl (APRESOLINE) 10 MG Q6H PRN PRN IV Ondansetron HCl (ZOFRAN) 4 MG Q4H PRN PRN IV Dietitian nutrition assessmentThe data set between the solid lines has been imported from the dietitian's assessment. BMI Calculated: 27.7Nutrition related diagnosis: OverweightNutrition diagnosis details: BMI 25-29.9Nutrition problem: Inadequate oral intakeNutrition etiology: PT LETHARGIC /SWALLOWING Nutrition signs and symptoms: ENTERAL NUTRITION TO MEET , ENERGY NEEDS , (DIET ADVANCED TO PUREED AND, TOLERATED.)Nutrition prescription: 1. RECOMMEND PUREED CCD5 DIET. 2. PROVIDE GLUCERNA TID WITH MEALS/SAMEER BID 3. MONITOR PO, WT, LABS, BM.Dietitian name: Rohan Sarah, DIETAssessment completed: 08/31/23 Physical ExamGeneral appearance: alert, awakeHEENT: atraumatic, clear cornea, normocephalicNeck: suppleCardiovascular: regular rate rhythmRespiratory: on oxygenAbdomen: softGenitourinary: not indicatedExtremities: warmNeuro/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: alertSkin: warmFindings/data:Laboratory Tests: 08/30 08/30 08/29 08/29 08/29 1121 [id number] 1942 1710 1524 Chemistry POC Glucose (70 - 110 MG/DL) 118 H 77 108 118 H 131 H 08/29 1236 Chemistry POC Glucose (70 - 110 MG/DL) 155 H Microbiology: Date/Time Procedure - Status Source Growth 08/30 1643 Blood Culture - RECD BLOOD 08/29 164 Blood Culture Gram Stain - RECD BLOOD 08/30 1643 Blood Culture - RECD BLOOD 08/30 1643 Blood Culture Gram Stain - RECD BLOOD Laboratory Tests: 08/30 08/30 08/29 08/29 08/29 1121 0643 1942 1710 1524 Chemistry POC Glucose (70 - 110 MG/DL) 118 H 77 108 118 H 131 H 08/29 1236 Chemistry POC Glucose (70 - 110 MG/DL) 155 H Microbiology: Date/Time Procedure - Status Source Growth 08/30 1643 Blood Culture - RECD BLOOD 08/30 1643 Blood Culture Gram Stain - RECD BLOOD 08/30 1643 Blood Culture - RECD BLOOD 08/30 1643 Blood Culture Gram Stain - RECD BLOOD Diagnosis, Assessment PlanFree Text A P:1.DM UQJfkA0g 8.2adjust Lantus adjust Humalog monitor glucose diabetic diet DC Plan: Lantus, Humalog, follow at next available appointment. 2.Abnormal thyroid functions 08/06 TSH 0.07 FT4 1 recheck in a couple of days 3.Suspected ischemic strokeMRI brain without contrastEchocardiogramTelemetryneurology following 4.Coronary artery diseasePCI on July 03, 2023Echocardiogram preserved LVEFdual antiplateletscardiology following 5. Elevated LFTsGI following 6.MRCP with complex cystic fluid collectionpost drainage surgery following at 1317 at 1500 RPT #:[id number] OF REPORTPRProgress [id number]:30:00G.[id number] for patient yyqjJOZBFJNFNSPFTD6586-18-26H16:18:15 [facility] 2023-08-31 11:34:00 [id number] hYap3YqM6ezKMuVq4Dr KV9+l7sn/GpSWJm8y3434-16-36Z92:34:00 [facility])Wound Care Consultation NoteREPORT#:[id number] REPORT STATUS: SignedREPORT INITIALIZATION DATE:08/31/23 TIME: 1133 PATIENT: MISSY CANALES UNIT #: [id number]#: [id number] [address] [birth year] AGE: 68 SEX: M ATTEND: Raphael Ly MDADM AUTHOR: Tano Sanchez MDREPT SERVICE DT/TIME: 08/31/23 113* ALL edits or amendments must be made on the electronic/computer document * HPI/History - Adult longitudRequesting clinician: Gilmar for consult:wound careChief complaint:both heels and sacralHPI:68 year old male with past medical hx of HTN, HLD, DM type II, CAD s/p stent came to ER with N/V and abd pain. His U/S abdomen showed Cholelithiasis with distended gallbladder including material at the gallbladder neck concerning for impacted stone. Patient was noted with a liver abscess, seen by general surgery and GI, drain was placed by IR. Patient was transferred to stroke unit after ICU, acording to the , no offload boots were placed and then he developed heel wounds along with sacral breakdown. He does have stool incontinence at times Past medical history:Reports: Diabetes mellitus, Hypertension. Additional medical history:HTN, HLD, DM type II and CADAdditional surgical history:recent cardia cathAlcohol use: Denies EtOH useDrug use: Denies recreational drugsSmoking status for patients 13 years old or older: Former SmokerAllergies:Coded Allergies:No Known Allergies (08/03/23) Review of SystemsUnable to obtain due to:altered status Objective GeneralVS:Last Documented: Result Date Time Pulse Ox 100 08/30 1122 B/P 132/85 08/30 1122 B/P Mean 100.5 08/30 1122 Temp 37.2 08/30 1122 Pulse 102 08/30 1122 Resp 15 08/30 1122 O2 Delivery Room air 08/30 0515 O2 Flow Rate 2 08/27 1022 FiO2 40 08/07 0752 PATIENT WEIGHT: Weight (lb): 177Weight (oz): 14.61Weight (kg): 80.286 Medications:Active Meds + DC'd Last 24 HrsCollagenase (SANTYL 2GM TOPICAL) 1 APPLIC DAILY TOPICAL (PEND) Mupirocin (BACTROBAN 2% 22 GM OINTMENT) 1 APPLIC BID TOPICAL Zinc Oxide (ZINC OXIDE 30 GM OINTMENT) 1 APPLIC BID TOPICAL Amiodarone HCl (CORDARONE) 200 MG BID 9A 5P FEED-TUBE Insulin Human Lispro (HUMALOG) 2 UNIT AC SUBQ (DC) Apixaban (ELIQUIS 5MG TABLET) 5 MG BID 9A 5P PO Pantoprazole (PROTONIX) 40 MG BID AC PO Insulin Glargine (Semglee) 20 UNIT DAILY SUBQ Tamsulosin HCl (Flomax 0.4 mg) 0.4 MG PC BK PO Insulin Human Lispro (HUMALOG) 0 AC HS SUBQ Atorvastatin Calcium (LIPITOR) 40 MG BEDTIME PO Lactulose (LACTULOSE) 20 GM Q12HR PO Senna/Docusate Sodium (SENOKOT S) 1 TAB Q12HR PO Metoprolol Tartrate (LOPRESSOR) 50 MG Q8HR PO Allopurinol (ZYLOPRIM) 300 MG DAILY PO Aspirin (ASPIRIN) 81 MG DAILY PO Acetaminophen (TYLENOL) 650 MG Q6H PRN PRN PO Bisacodyl (DULCOLAX) 10 MG DAILY PRN PRN RECTAL Polyethylene Glycol (MIRALAX) 17 GM Q12H PO Dextrose/Water (DEXTROSE 10% IN WATER) 125 ML ASDIR PRN IV (CKD) Dextrose/Water (DEXTROSE 10% IN WATER) 250 ML ASDIR PRN IV (CKD) Glucagon (GLUCAGON) 1 MG ASDIR PRN IM Sodium Chloride (SODIUM CHLORIDE 0.9%) 250 ML BOLUS PRN IV Latanoprost (XALATAN 2.5 ML OPHTH SOLN) 1 DROP BEDTIME EACH EYE Timolol Maleate (TIMOPTIC 0.5% 5 ML OPHTH SOLN) 1 DROP BID EACH EYE Brimonidine Tartrate (Alphagan-P 0.2% 5 ML OPHTH SOLN) 1 DROP Q8HR EACH EYE Hydralazine HCl (APRESOLINE) 10 MG Q6H PRN PRN IV Ondansetron HCl (ZOFRAN) 4 MG Q4H PRN PRN IV Physical ExamGeneral appearance: chronically ill appearing, lethargicRespiratory: no distress Wound AssessmentWound Assessment 1: Type/cause: pressure Wound location: heel (right and left) Site condition: necrotic tissue Stage of pressure ulcer: unstageableWound Assessment 2: Type/cause: pressure Wound location: sacral region Site condition: dehiscence, drainage Stage of pressure ulcer: stage III Wound margins: open ResultsFindings/Data:Laboratory Tests: 08/30 08/30 08/29 08/29 08/29 1121 0643 1942 1710 1524 Chemistry POC Glucose (70 - 110 MG/DL) 118 H 77 108 118 H 131 H 08/29 1236 Chemistry POC Glucose (70 - 110 MG/DL) 155 H Microbiology: Date/Time Procedure - Status Source Growth 08/29 164 Blood Culture - RECD BLOOD 08/29 1644 Blood Culture Gram Stain - RECD BLOOD 08/29 1644 Blood Culture - RECD BLOOD 08/29 164 Blood Culture Gram Stain - RECD BLOOD Diagnosis, Assessment PlanProblem List/A P: 1. Pressure ulcer, heel, left, unstageable 2. Pressure ulcer, heel, right, unstageable 3. Pressure ulcer of sacral region, stage 3 4. Liver abscess 5. Failure to thrive Free Text A P:Santyl to both heelsGentamicin to the sacral areaOffloadSpec. bedNutritional supportEducated extensively at 1245 RPT #:[id number] OF REPORTJKTbikvhcqvwul2534-71-47Y32:34:00G.[id number] 32AVAvailable for patient ovrxCLJTGSATODQZWR2853-43-37F24:45:38 [facility] 2023-08-31 10:00:00 [id number]q83 JqL/GuuEhYUNEBKEHBb iF/c0wiSL+4r543HQ9720-72-60W14:00:00 [facility] CenterHospitalist Progress NoteREPORT#:[id number] REPORT STATUS: SignedREPORT INITIALIZATION DATE:08/31/23 TIME: 1000 PATIENT: MISSY CANALES UNIT #: [id number]#: [id number] ROOM/BED: 6617-1DOB: [birth year] AGE: 68 SEX: M ATTEND: Raphael Ly [facility] AUTHOR: Clyde Lares SERVICE DT/TIME: 08/31/23 1000* ALL edits or amendments must be made on the electronic/computer document * SubjectiveChief complaint:Patient is doing well this morning, denies any acute complaints. Appetite is improving Objective GeneralVS/I O:Vital Signs: Date Time Temp Pulse Resp B/P B/P Pulse O2 O2 Flow FiO2 Mean Ox Delivery Rate 08/30 644 92 14 123/54 77.1 95 08/30 0515 98.4 93 16 129/81 96.8 95 Room air 08/30 0004 98.4 100 16 103/64 77.0 98 08/29 1944 99.7 120 16 116/66 82.6 99 Room air 08/29 1713 101.1 101 17 136/76 96.1 100 Room air 08/29 1523 99.5 103 16 134/72 92.5 95 Room air 08/29 1239 99.0 97 16 129/79 95.4 99 Room air 24 hour I O ending at 0700: 05 0700 04 1900 Intake Total Output Total 160 Balance -160 Output, 160 Drainage PATIENT WEIGHT: Weight (lb): 177Weight (oz): 14.61Weight (kg): 80.286 Medications:Active Meds + DC'd Last 24 HrsAmiodarone HCl (CORDARONE) 200 MG BID 9A 5P FEED-TUBE Insulin Human Lispro (HUMALOG) 2 UNIT AC SUBQ Apixaban (ELIQUIS 5MG TABLET) 5 MG BID 9A 5P PO Pantoprazole (PROTONIX) 40 MG BID AC PO Insulin Glargine (Semglee) 20 UNIT DAILY SUBQ Insulin Human Lispro (HUMALOG) 3 UNIT AC SUBQ (DC) Tamsulosin HCl (Flomax 0.4 mg) 0.4 MG PC BK PO Insulin Human Lispro (HUMALOG) 0 AC HS SUBQ Atorvastatin Calcium (LIPITOR) 40 MG BEDTIME PO Lactulose (LACTULOSE) 20 GM Q12HR PO Senna/Docusate Sodium (SENOKOT S) 1 TAB Q12HR PO Metoprolol Tartrate (LOPRESSOR) 50 MG Q8HR PO Clopidogrel Bisulfate (Plavix) 75 MG DAILY PO (DC) Allopurinol (ZYLOPRIM) 300 MG DAILY PO Aspirin (ASPIRIN) 81 MG DAILY PO Acetaminophen (TYLENOL) 650 MG Q6H PRN PRN PO Bisacodyl (DULCOLAX) 10 MG DAILY PRN PRN RECTAL Polyethylene Glycol (MIRALAX) 17 GM Q12H PO Dextrose/Water (DEXTROSE 10% IN WATER) 125 ML ASDIR PRN IV (CKD) Dextrose/Water (DEXTROSE 10% IN WATER) 250 ML ASDIR PRN IV (CKD) Glucagon (GLUCAGON) 1 MG ASDIR PRN IM Sodium Chloride (SODIUM CHLORIDE 0.9%) 250 ML BOLUS PRN IV Latanoprost (XALATAN 2.5 ML OPHTH SOLN) 1 DROP BEDTIME EACH EYE Timolol Maleate (TIMOPTIC 0.5% 5 ML OPHTH SOLN) 1 DROP BID EACH EYE Brimonidine Tartrate (Alphagan-P 0.2% 5 ML OPHTH SOLN) 1 DROP Q8HR EACH EYE Hydralazine HCl (APRESOLINE) 10 MG Q6H PRN PRN IV Ondansetron HCl (ZOFRAN) 4 MG Q4H PRN PRN IV Physical ExamGeneral appearance: alert, awakeHead/Eyes: atraumatic, normocephalic, PERRLAENT: moist mucosal membranes, normal dentitionNeck: full range of motion, non-tender, no JVDCardiovascular: normal heart sounds, regular rate rhythmRespiratory: aerating well, symmetric expansion, no distressAbdomen: non-tender, normal bowel sounds, jtube present with minimal collection (liver abscess drains in place)Genitourinary: no bladder distention, no flank painExtremities: no clubbing, no cyanosisMusculoskeletal: no muscle spasmNeuro/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 Acute cholangitis 2. Elevated LFTs 3. Liver abscess 4. Failure to thrive Free Text DxA P NotesFree text DxA P notes:68-year-old male admitted with abdominal pain, noted with NSTEMI, s/p stent placement to diagonal artery on 07/02/23. Still need staged PCI to RCA. Patient was noted with a liver abscess, seen by general surgery and GI, drain was placedby IR, has been tolerating antibiotics well. Patient was noted with some anemia, EGD was unremarkable but for gastric ulcers with no active bleeding.* Appreciated input from general surgery, GI, cardiology, and ID* Completed antibiotics therapy for liver abscess* Appreciated abdominal CT report* Continue on PPI* Encourage oral intake and therapy* is at the bedside and all concerns addressed* Patient is awaiting SNF placement * See my DC summary from 08/22 for details at [facility] RPT #:[id number] OF REPORTPRProgress unrp6169-01-12L68:00:00G.[id number] for patient ztpmQXGLFSTYUEAFAN3323-11-95M32:03:22 [facility] 2023-08-31 09:40:00 [id number]xv sFinv8iipCyp4SukLn3 ZJ8vebgduxUqikw9J4343-85-27U72:40:00 [facility])Infectious Dis. Progress NoteREPORT#:[id number] REPORT STATUS: SignedREPORT INITIALIZATION DATE:08/31/23 TIME: 939 PATIENT: MISSY CANALES UNIT #: [id number]#: [id number] ROOM/BED: 6617-1DOB: [birth year] AGE: 68 SEX: M ATTEND: Raphael Ly MDA AUTHOR: Kajal Nguyen MDREPT SERVICE DT/TIME: 08/31/23 0940* ALL edits or amendments must be made on the electronic/computer document * SubjectiveChief complaint:Follow-up on bacteremia, hepatic abscess, cholecystitis, aspiration pneumoniaHPI:Review of systems is somewhat limited due to patient's limited responses. Nonetheless, he appears comfortable. present at bedside. No major overnight events.Patient reports:No: complaints. Objective GeneralVS/I O:Vital SignsDate Temp Pulse Resp B/P B/P Mean Pulse Ox FdG176/-08/30 98.4-101.1 92-120 14-17 103-136/54-8 77.0-100.5 95-100 5 Last Documented: Result Date Time Pulse Ox 100 08/30 1122 B/P 132/85 08/30 1122 B/P Mean 100.5 08/30 1122 Temp 99.0 04/ 1122 Pulse 102 08/30 1122 Resp 15 08/30 1122 O2 Delivery Room air 08/30 0515 O2 Flow Rate 2 08/27 1022 FiO2 40 / 0752 Vital Signs: Date Time Temp Pulse Resp B/P B/P Pulse O2 O2 Flow FiO2 Mean Ox Delivery Rate 08/30 1122 99.0 102 15 132/85 100.5 100 08/30 0645 92 14 123/54 77.1 95 08/30 0515 98.4 93 16 129/81 96.8 95 Room air 08/30 0004 98.4 100 16 103/64 77.0 98 08/29 1944 99.7 120 16 116/66 82.6 99 Room air 08/29 1713 101.1 101 17 136/76 96.1 100 Room air 24 hour I O ending at 0700: 08/30 0700 08/29 1900 Intake Total Output Total 160 Balance -160 Output, 160 Drainage PATIENT WEIGHT: Weight (lb): 177Weight (oz): 14.61Weight (kg): 80.286 Physical ExamGeneral appearance: obese, awake, orientedWound/incision: Location:cholecystostomy tube and RUQ drain in placeHead/Eyes: atraumatic, normocephalicENT: moist mucosal membranesNeck: no JVDCardiovascular: regular rate rhythm, no murmurRespiratory: clear to auscultation, symmetric expansionAbdomen: non-tender, soft, no distention, percutaneous drains in place in RUQExtremities: no cyanosis, no edemaNeuro/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: alert, followed simple commands from LUE only; non-verbal during the encounterSkin: dry, no rashPsychiatry: unable to evaluate ResultsFindings/Data:Laboratory Tests 08/30 08/30 08/29 08/29 1121 0643 1942 1710 Chemistry POC Glucose (70 - 110 MG/DL) 118 H 77 108 118 H Laboratory Tests 08/30 1434 Urines Urine Color (YEL/STRAW) YELLOW Urine Appearance (CLEAR) CLEAR Urine pH (5.0 - 7.0) 5.0 Ur Specific [place] (1.005 - 1.030) 1.020 Urine Protein (NEGATIVE) 1+ H Urine Glucose (UA) (NEGATIVE) NEGATIVE Urine Ketones (NEGATIVE) TRACE H Urine Blood (NEGATIVE) NEGATIVE Urine Nitrite (NEGATIVE) NEGATIVE Urine Bilirubin (NEGATIVE) NEGATIVE Urine Urobilinogen (0.2 - 1.0 mg/dL) 0.2 Ur Leukocyte Esterase (NEGATIVE) NEGATIVE Urine RBC (0 - 3 RBC/HPF) NONE SEEN Urine WBC (0 - 3 WBC/HPF) 0-3 Ur Squamous Epith Cells (NONE SEEN /HPF) 0-5 Urine Bacteria (NONE SEEN /HPF) TRACE Hyaline Casts (NONE SEEN /LPF) 11-20 Urine Mucus (NONE SEEN /LPF) TRACE Microbiology:08/30 1643 BLOOD: Blood Culture - RECD08/30 1643 BLOOD: Blood Culture Gram Stain - RECD08/30 1643 BLOOD: Blood Culture - RECD08/30 1643 BLOOD: Blood Culture Gram Stain - RECD Laboratory Tests Test Result Date Time Chemistry BUN (7 - 25 mg/dL) 15 08/26 0541 Creatinine (0.6 - 1.3 mg/dL) 0.9 08/26 0541 Hematology WBC (4.5 - 11.0 x10 3/uL) 9.0 08/28 0947 Microbiology Date/Time Procedure - Status Source Growth 08/30 1643 Blood Culture - RECD BLOOD 08/30 1643 Blood Culture Gram Stain - RECD BLOOD Active Meds + DC'd Last 24 HrsCollagenase (SANTYL 2GM TOPICAL) 1 APPLIC DAILY TOPICAL Mupirocin (BACTROBAN 2% 22 GM OINTMENT) 1 APPLIC BID TOPICAL Zinc Oxide (ZINC OXIDE 30 GM OINTMENT) 1 APPLIC BID TOPICAL Amiodarone HCl (CORDARONE) 200 MG BID 9A 5P FEED-TUBE Insulin Human Lispro (HUMALOG) 2 UNIT AC SUBQ (DC) Apixaban (ELIQUIS 5MG TABLET) 5 MG BID 9A 5P PO Pantoprazole (PROTONIX) 40 MG BID AC PO Insulin Glargine (Semglee) 20 UNIT DAILY SUBQ Tamsulosin HCl (Flomax 0.4 mg) 0.4 MG PC BK PO Insulin Human Lispro (HUMALOG) 0 AC HS SUBQ Atorvastatin Calcium (LIPITOR) 40 MG BEDTIME PO Lactulose (LACTULOSE) 20 GM Q12HR PO Senna/Docusate Sodium (SENOKOT S) 1 TAB Q12HR PO Metoprolol Tartrate (LOPRESSOR) 50 MG Q8HR PO Allopurinol (ZYLOPRIM) 300 MG DAILY PO Aspirin (ASPIRIN) 81 MG DAILY PO Acetaminophen (TYLENOL) 650 MG Q6H PRN PRN PO Bisacodyl (DULCOLAX) 10 MG DAILY PRN PRN RECTAL Polyethylene Glycol (MIRALAX) 17 GM Q12H PO Dextrose/Water (DEXTROSE 10% IN WATER) 125 ML ASDIR PRN IV (CKD) Dextrose/Water (DEXTROSE 10% IN WATER) 250 ML ASDIR PRN IV (CKD) Glucagon (GLUCAGON) 1 MG ASDIR PRN IM Sodium Chloride (SODIUM CHLORIDE 0.9%) 250 ML BOLUS PRN IV Latanoprost (XALATAN 2.5 ML OPHTH SOLN) 1 DROP BEDTIME EACH EYE Timolol Maleate (TIMOPTIC 0.5% 5 ML OPHTH SOLN) 1 DROP BID EACH EYE Brimonidine Tartrate (Alphagan-P 0.2% 5 ML OPHTH SOLN) 1 DROP Q8HR EACH EYE Hydralazine HCl (APRESOLINE) 10 MG Q6H PRN PRN IV Ondansetron HCl (ZOFRAN) 4 MG Q4H PRN PRN IV Recent Impressions:CAT SCAN - CT ABD PELVIS W/CONT 08/28 1640 Report Impression - Status: SIGNED Entered: 08/29/20231921 IMPRESSION: 1. Percutaneous cholecystostomy tube and parallel right lobe of liverpigtail catheter remain in satisfactory position. There is no residualintrahepatic abscess collection and the gallbladder is now completelydecompressed.2. No biliary dilatation.3. Mild colonic air distention unchanged since prior study andprobably reflecting chronic adynamic ileus.4. Chronic scarring in the lower poles of both kidneys.5. No free fluid or free air.Impression By: Suraj - Krystyna Olivarez M.D. Diagnosis, Assessment PlanFree Text A P: Assessment: Mr. Canales is a 68-year-old male with PMH of HTN, DMII, CAD s/p stent who came to [facility] initially with N/V and abdominal pain. His pain was started 2 days prior to admission. His work up showed elevated LFTs, bilirubin, troponin. His US abdomen showed cholelithiasis with distended gallbladder including material at the gallbladder neck concerning for impacted stone. Patient started on empiric antibiotics and had cultures done with blood culture showing gram negative bacilli. Patient has been febrile and tachycardic while here. GI and general surgery are consulted. Patient was found to have acute cholecystitis with a liver abscess. He had a drain in the gallbladder and in the abscess placed. Blood culture eventually grew Citrobacter and so did the abscess. *Fever--Recurrent after improvement--UA via straight cath (-)--Covid (-)--Flu (-)--F/U CT A/P, decreased liver absces; (+) LLL infiltrates c/w PNA*PNA--CT LLL infiltrates c/w aspiration*Bacteremia--Citrobacter--Source: Biliary*Liver abscess--MRCP showed 4.6 x 3.6 x 3.0 thick walled cystic lesion/fluid collection liver abutting GB fossa--S/P IR drain 08/05, cx CitrobacterCt scan of the abdomen showed no residuasl abscesson 08/29/23*Acute cholecystitis--S/P IR placed cholecystotomy tube ., cx Citrobacter*Acute stroke--MRI (+) subacute Left guo radiata--CTA neck (+) high grade stenosis*ARELY*DM2*HTN*CADFever: on 08/30/23 : blood cx drawn yesterday., ua and cx ordered not done Plan: -Patient has had > 7 days of piperacillin-tazobactam to cover for aspiration pneumonia.-Antibiotic treatment transitioned back to ceftriaxone and metronidazole on 08/22/2023 for coverage of liver abscess. dc iv abx if the urine cx and bloos cx done on 08/30/[address] showed resolved liver abscesscurrent antimicrobilas: day 11 of ceftriaxone 2 gms iv q 24 hrs (effective from 08/06/23, 25 days) at 0630 RPT #:[id number] OF REPORTPRProgress bwhh7706-38-04S99:40:00G.UYYC68858379-0518UFCzyomzzns for patient podfADEUWYHDEKLDWG3030-74-87A37:31:20 [facility] 2023-08-31 08:12:00 [id number] 4QeE1P3I2AQaB+7CVPX o5UumMgdxVqzJ/apY8565-52-37B25:12:00 [facility] ([facility])Gastroenterology Progress NoteREPORT#:[id number] REPORT STATUS: SignedREPORT INITIALIZATION DATE:08/31/23 TIME: 0812 PATIENT: MISSY CANALES UNIT #: [id number]#: [id number] [address] [birth year] AGE: 68 SEX: M ATTEND: Raphael Ly MDADM AUTHOR: Lisa Cancino MDREPT SERVICE DT/TIME: 08/31/23811* ALL edits or amendments must be made on the electronic/computer document * SubjectiveChief complaint:Elevated LFtsHPI:68 year old man s/p cardiac stents 2 weeks ago who was sent to the hospital withelevated LFTs and possible acute cholecystitis. Pt had a stenet recently placed and was started on DAPT. Pt had labs showing elevated LFTs and was sent here forevaluation. Labs showed leukocytosis 15k. Elevated Tbili 3.7. Dbili 2.8. AST 79,ALT 105 and ALP 225. RUQ U/S showed possible cholecystitis and normal CBD of 4 mm in diatmeter. Pt denies pain. No dark urine or peyton-color stool 08/03; patient feels well. MRCP reviewed. No choledocholithiasis. Fluid collection at the liver could be related secondary to gallbladder perforation. LFTs and white count are down. 08/04: Plan for IR for cholecystostomy tube placement. LFts stable. WBC elevated.Was confused this am but improving. NO pain. No fevers. Added flagyl to his Abx regimen 08/05: NO new complaints. IR for abscess drain and cholecystostomy tube 08/06: Transferred overnight to ICU due to AMS. S/P IR with cholecystostomy tube and abscess drain 08/07: severely constipated. NGT in with feeds. drains in. More awake today and oriented. right sided weakness likely acute stroke. MRI brain reviewed- small stroke. KUB reviewed 08/08: Doing better according to . Sheldon removed. Still on feeds 08/09: Feeds at 20 ml/hr. Still no BM 08/10-Had BM last night. Denies n/v/abd pain 08/11-Patient dislodged DH. DH was replaced. +BM today 08/12: has been having BM during the weekend 08/13: No new events 08/14: eating and moving bowels. 08/15: doing well. 08/26: I was called again to evaluate pt. He has melena-like stool and dropped hisH/H. Pt is on DAPT 08/27: S/P EGD showing gastric ulcer in the incisura. flat pigmentation without high rebleeding stigmata. 08/28: H/H stable. Family at bedside. NO melena 08/29: Stbale H/H. NO family at bediside this am 08/30: Stable H/H. Objective Physical ExamHEENT: EOMICardiovascular: normal heart soundsRespiratory: clear to auscultationAbdomen: non-tenderExtremities: no edemaSkin: dry, normal temperature Diagnosis, Assessment PlanProblem List/A P: 1. Elevated LFTs Free Text A P:cholestatic pattern. CBD normal on RuQ U/S MRCP showed no evidence of choledocholithiasis.Large fluid collection within the liver could be secondary to gallbladder perforation.Recommend surgical evaluation again.Continue with antibiotics. Add flagyl s/p cholecystostomy tube and drainage of cystic fluid collection. Awaiting culture EGD showed gastric ulcer with flat pigmentPPI PO BID Will need repeat EGD in 6 weeks to confirm healing and rule out malignancyConsider removing hepatic drainWill follow at 0813 RPT #:[id number] OF REPORTPRProgress sppi1809-73-55W10:12:00G.[id number] for patient rqydTWLLXGJIPWSHMS8368-21-44V71:13:25 [facility] 2023-08-31 07:54:00 [id number]+0ItTjY6GuPSk3SPcbxc T51hmLXzA7MAg31Gi5d XaPOEuHR+ovqnHTVJ4335-57-07Y12:54:00 [facility] ([facility])Cardiology Progress NoteREPORT#:[id number] REPORT STATUS: SignedREPORT INITIALIZATION DATE:08/31/23 TIME: 0754 PATIENT: MISSY CNAALES UNIT #: [id number]#: [id number] ROOM/BED: 6617-1DOB: [birth year] AGE: 68 SEX: M ATTEND: Raphael Ly MDADM AUTHOR: Esther Buckner AGACNPREPT SERVICE DT/TIME: 08/31/23 0754* ALL edits or amendments must be made on the electronic/computer document * Esther Buckner 08/31/23 0754:SubjectiveComments:Arousable Objective GeneralVS/I O:24 hour I O ending at 0700: 08/30 0700 08/29 1900 Intake Total Output Total 160 Balance -160 Output, 160 Drainage Vital Signs: Date Time Temp Pulse Resp B/P B/P Pulse O2 O2 Flow FiO2 Mean Ox Delivery Rate 08/30 0645 92 14 123/54 77.1 95 08/30 0515 36.9 93 16 129/81 96.8 95 Room air 08/30 0004 36.9 100 16 103/64 77.0 98 08/29 1944 37.6 120 16 116/66 82.6 99 Room air 08/29 1713 38.4 101 17 136/76 96.1 100 Room air 04 1523 37.5 103 16 134/72 92.5 95 Room air 04 1239 37.2 97 16 129/79 95.4 99 Room air PATIENT WEIGHT: Weight (lb): 177Weight (oz): 14.61Weight (kg): 80.286 Medications:Active Meds + DC'd Last 24 HrsInsulin Human Lispro (HUMALOG) 2 UNIT AC SUBQ Apixaban (ELIQUIS 5MG TABLET) 5 MG BID 9A 5P PO Pantoprazole (PROTONIX) 40 MG BID AC PO Insulin Glargine (Semglee) 20 UNIT DAILY SUBQ Insulin Human Lispro (HUMALOG) 3 UNIT AC SUBQ (DC) Tamsulosin HCl (Flomax 0.4 mg) 0.4 MG PC BK PO Insulin Human Lispro (HUMALOG) 0 AC HS SUBQ Atorvastatin Calcium (LIPITOR) 40 MG BEDTIME PO Lactulose (LACTULOSE) 20 GM Q12HR PO Senna/Docusate Sodium (SENOKOT S) 1 TAB Q12HR PO Metoprolol Tartrate (LOPRESSOR) 50 MG Q8HR PO Clopidogrel Bisulfate (Plavix) 75 MG DAILY PO (DC) Allopurinol (ZYLOPRIM) 300 MG DAILY PO Aspirin (ASPIRIN) 81 MG DAILY PO Acetaminophen (TYLENOL) 650 MG Q6H PRN PRN PO Bisacodyl (DULCOLAX) 10 MG DAILY PRN PRN RECTAL Polyethylene Glycol (MIRALAX) 17 GM Q12H PO Dextrose/Water (DEXTROSE 10% IN WATER) 125 ML ASDIR PRN IV (CKD) Dextrose/Water (DEXTROSE 10% IN WATER) 250 ML ASDIR PRN IV (CKD) Glucagon (GLUCAGON) 1 MG ASDIR PRN IM Sodium Chloride (SODIUM CHLORIDE 0.9%) 250 ML BOLUS PRN IV Latanoprost (XALATAN 2.5 ML OPHTH SOLN) 1 DROP BEDTIME EACH EYE Timolol Maleate (TIMOPTIC 0.5% 5 ML OPHTH SOLN) 1 DROP BID EACH EYE Brimonidine Tartrate (Alphagan-P 0.2% 5 ML OPHTH SOLN) 1 DROP Q8HR EACH EYE Hydralazine HCl (APRESOLINE) 10 MG Q6H PRN PRN IV Ondansetron HCl (ZOFRAN) 4 MG Q4H PRN PRN IV Physical ExamGeneral appearance: chronically ill appearing, frail, no acute distressNeck: non-tenderCardiovascular: CV assessment: ectopy, irregular rhythm, tachycardiaRespiratory: decreased breath sounds, no distressAbdomen: softGenitourinary: no urinary catheterUpper extremity: UE assessment: normal capillary refill, normal temperatureLower extremity: LE assessment: no edemaMusculoskeletal: decreased ROMSkin: dryPsychiatry: unable to evaluate ResultsFindings/Data:Laboratory Tests 08/30 08/29 08/29 08/29 08/29 0643 1942 1710 1524 1236 Chemistry POC Glucose (70 - 110 MG/DL) 77 108 118 H 131 H 155 H Results: no new labs, vital signs reviewed, rhythm personally rev'dTelemetry Interpretation:Sinus rhythm with PVCs Diagnosis, Assessment Plan Free Text DxA P NotesFree Text DxA P Notes:1. Coronary artery disease s/p recent PCI/TERESA to diagonal artery* Troponin trend is flat* Hx of CABG (2000)* s/p stent placement to diagonal artery on 07/02/23. Still need staged PCI to RCA. * Echocardiogram preserved LVEF.* PPI: lansoprazole 30 mg BID* Plavix dc'd (08/30/23), switched to Eliquis (afib) and ASA - tx decision discussed in depth with 2. Elevated LFTs/acute cholecystitis/liver abscess* s/p cholecystostomy tube placement. * ID on board managing antibiotic* GI on board* s/p EGD: nonbleeding ulcer 3. AMS: MRI brain showed small subacute ischemia in the L coronary radiata * MRI of the brain unchanged 4. Tachycardia with PVCs and PACs/Paroxysmal atrial fibrillation* Continue metoprolol 50 mg every 8 hours. * Tele: frequent PVCs and PACs and intermittent afb * [id number] score 6, recommend AC * HASBLED 4* continue Eliquis 5 mg BID plus ASA 81 mg daily. * add amiodarone 200 mg BID to suppress PVC and for rate control 5. Anemia* hgb 6.3 up to 8.9->8.6->6.9->7->8.7->8.6->8.3* s/p 2 units PRBCs 08/20/23, 1 unit PRBC 08/26/23* On PPI* GI on board, s/p EGD showed nonbleeding ulcer Insurance denied SNF, is appealing. Medical decision making by Dr. Daniel. Lisa Daniel 09/04/23 0821:Attestations Physician AttestationAgree w/findings plan:I have seen and examined the pt, I Agree with the findings and plan as documented by Esther Buckner. at 1213 at 0821 RPT #:[id number] OF REPORTPRProgress [id number]:54:00G.[id number] for patient qcknDAZVVWBNZBUALM7607-48-89W04:13:28 [facility]ACL 2023-08-30 13:15:00 [id number]+FqgjcJGB7n1N8p54SLUA7Pb wFIwV5mQV40Hmq9+bVg A46oc3GOaMudChduf3959-69-31A23:15:00 [facility] ([facility])Palliative Care Progress NoteREPORT#:[id number] REPORT STATUS: SignedREPORT INITIALIZATION DATE:08/30/23 TIME: 131 PATIENT: MISSY CANALES UNIT #: [id number]#: [id number] [address] [birth year] AGE: 68 SEX: M ATTEND: Raphael Ly MDADM AUTHOR: Glenny Mclaughlin FNPREPT SERVICE DT/TIME: 08/30/23 1315* ALL edits or amendments must be made on the electronic/computer document * Objective GeneralVS:Last Documented: Result Date Time Pulse Ox 99 08/29 1239 B/P 129/79 08/29 1239 B/P Mean 95.4 08/29 1239 O2 Delivery Room air 08/29 1239 Temp 37.2 08/29 1239 Pulse 97 08/29 1239 Resp 16 08/29 1239 O2 Flow Rate 2 08/27 1022 FiO2 40 08/07 0752 PATIENT WEIGHT: Weight (lb): 177Weight (oz): 14.61Weight (kg): 80.286 Diagnosis, Assessment PlanHospital course to date:Patient seen and examined. Spoke with Ms. Canales regarding goals of care including plan to possibly transfer to skill nursing facility versus palliative care versus hospice. She stated, "she needs additional time and does not want to have discussion right now" I will continue to support the patient and family during this difficult time. Thank you for allowing me to assist in the care of Mr. Missy Canales. Time spent - 1730 - 1800 - 30 minutes. 08-22-2023 Patient seen and examined. Spoke with Ms. Canales regarding goals of care including plan to possibly transfer to skill nursing facility versus palliative care versus hospice. She stated, "I will check out the senior care facilities today and need additional time". I will continue to support the patient and family during this difficult time. Thank you for allowing me to assist in the care of Mr. Missy Canales. Time spent - 1130 - 1200 - 30 minutes. 08-23-2023 Patient seen and examined. Spoke with Ms. Canales at bedside regarding goals of care including plan to possibly transfer to skill nursing facility versus palliative care versus hospice. She stated, "He is going to [facility] then to rehab". Explained the benefits of oupatient palliative care and discussed advance directives including living will and MPOA if he is oriented to make decisions. No changes at this time. I will continue to support the patient and family during this difficult time. Thank you for allowing me to assist in the care of Mr. Missy Canales. Time spent - 1730 - 1800 - 30 minutes. 08-27-2023 Patient seen and examined. Spoke with Ms. Canales regarding goals of care - she intends to have her spouse go to SNF. I will continue to support the patient and family during this difficult time. Thank you for allowing me to assist in the care of Mr. Missy Canales. Time spent - 1330 - 1400 - 30 minutes. 08-28-2023 Patient seen and examined. Spoke with Ms. Canales regarding goals of care - no changes in GOC plan to discharge to SNF. Case management assisting family with SNF. I will continue to support the patient and family during this difficult time. Thank you for allowing me to assist in the care of Mr. Missy Canales. Time spent - 1430 - 1500 - 30 minutes. 08-29-2023 Patient seen and examined. Spoke with Ms. Canales regarding goals of care - no changes in GOC plan to discharge to SNF. I will continue to support the patient and family during this difficult time. Thank you for allowing me to assist in the care of Mr. Missy Canales. Time spent - 30 minutes Quality Current MedicationsCurrent medication review:I attest that the foregoing medication list in the medical record is true, accurate, and complete to the best of my knowledge. Advanced Care Plan 65 or OlderDiscussed with: patient, surrogate decis. maker at 1227 RPT #:[id number] OF REPORTPRProgress [id number]:15:00G.[id number] for patient lfqsOORIAXNQUPVXBU0376-53-42D84:28:15 [facility]ACL 2023-08-30 12:52:00 [id number]+poyclzccc Bp15Mxfo4mNR91ljrOH hwYYQoBIuqkuO9mel8771-08-25S29:52:00 [facility] ([facility])Gastroenterology Progress NoteREPORT#:[id number] REPORT STATUS: SignedREPORT INITIALIZATION DATE:08/30/23 TIME: 125 PATIENT: MISSY CANALES UNIT #: [id number]#: [id number] [address]: [birth year] AGE: 68 SEX: M ATTEND: Raphael Ly MDADM AUTHOR: Lisa Cancino MDREPT SERVICE DT/TIME: 08/30/23 1252* ALL edits or amendments must be made on the electronic/computer document * SubjectiveChief complaint:Elevated LFtsHPI:68 year old man s/p cardiac stents 2 weeks ago who was sent to the hospital withelevated LFTs and possible acute cholecystitis. Pt had a stenet recently placed and was started on DAPT. Pt had labs showing elevated LFTs and was sent here forevaluation. Labs showed leukocytosis 15k. Elevated Tbili 3.7. Dbili 2.8. AST 79,ALT 105 and ALP 225. RUQ U/S showed possible cholecystitis and normal CBD of 4 mm in diatmeter. Pt denies pain. No dark urine or peyton-color stool 08/03; patient feels well. MRCP reviewed. No choledocholithiasis. Fluid collection at the liver could be related secondary to gallbladder perforation. LFTs and white count are down. 08/04: Plan for IR for cholecystostomy tube placement. LFts stable. WBC elevated.Was confused this am but improving. NO pain. No fevers. Added flagyl to his Abx regimen 08/05: NO new complaints. IR for abscess drain and cholecystostomy tube 08/06: Transferred overnight to ICU due to AMS. S/P IR with cholecystostomy tube and abscess drain 08/07: severely constipated. NGT in with feeds. drains in. More awake today and oriented. right sided weakness likely acute stroke. MRI brain reviewed- small stroke. KUB reviewed 08/08: Doing better according to . Sheldon removed. Still on feeds 08/09: Feeds at 20 ml/hr. Still no BM 08/10-Had BM last night. Denies n/v/abd pain 08/11-Patient dislodged DH. DH was replaced. +BM today 08/12: has been having BM during the weekend 08/13: No new events 08/14: eating and moving bowels. 08/15: doing well. 08/26: I was called again to evaluate pt. He has melena-like stool and dropped hisH/H. Pt is on DAPT 08/27: S/P EGD showing gastric ulcer in the incisura. flat pigmentation without high rebleeding stigmata. 08/28: H/H stable. Family at bedside. NO melena 08/29: Stbale H/H. NO family at bediside this am Objective Physical ExamHEENT: EOMICardiovascular: normal heart soundsRespiratory: clear to auscultationAbdomen: non-tenderExtremities: no edemaSkin: dry, normal temperature Diagnosis, Assessment PlanProblem List/A P: 1. Elevated LFTs Free Text A P:cholestatic pattern. CBD normal on RuQ U/S MRCP showed no evidence of choledocholithiasis.Large fluid collection within the liver could be secondary to gallbladder perforation.Recommend surgical evaluation again.Continue with antibiotics. Add flagyl s/p cholecystostomy tube and drainage of cystic fluid collection. Awaiting culture EGD showed gastric ulcer with flat pigmentPPI PO BID Will need repeat EGD in 6 weeks to confirm healing and rule out malignancyD/W family at 1253 [facility] #:[id number] OF REPORTPRProgress [id number]:52:00G.[id number] for patient vsacTFNXPJWTRQTWEA8928-78-34H09:03:37 [facility]ACL 2023-08-30 11:33:00 [id number]+X+G4CbfRlplWxxJeHj4C700 OgDkGYnrWT5UGn78M7g 9RBFnsLZwSU6lPK7F3616-22-82D45:33:00 [facility] ([facility])Endocrinology Progress NoteREPORT#:[id number] REPORT STATUS: SignedREPORT INITIALIZATION DATE:08/30/23 TIME: 1132 PATIENT: MISSY CANALES UNIT #: [id number]#: [id number] [address] [birth year] AGE: 68 SEX: M ATTEND: Raphael Ly MDADM AUTHOR: Agus Duckworth APRNNPREPT SERVICE DT/TIME: 08/30/23 113* ALL edits or amendments must be made on the electronic/computer document * SubjectiveChief complaint:f/u DM IIlabile dietawaiting SNF placement Objective GeneralVS:Last Documented: Result Date Time Temp 99.9 08/29 0739 Resp 16 08/29 0739 Pulse Ox 98 08/29 0737 B/P 122/77 08/29 0737 B/P Mean 92.2 08/29 0737 O2 Delivery Room air 08/29 0737 Pulse 98 08/29 0737 O2 Flow Rate 2 08/27 1022 FiO2 40 08/07 0752 PATIENT WEIGHT: Weight (lb): 177Weight (oz): 14.61Weight (kg): 80.286 Medications:Active Meds + DC'd Last 24 HrsApixaban (ELIQUIS 5MG TABLET) 5 MG BID 9A 5P PO Iopamidol (ISOVUE-370 100ML) 100 ML .STK-MED ONE IV (DC) Pantoprazole (PROTONIX) 40 MG BID AC PO Insulin Glargine (Semglee) 20 UNIT DAILY SUBQ Insulin Human Lispro (HUMALOG) 3 UNIT AC SUBQ Ceftriaxone Sodium (ROCEPHIN) 2,000 MG Q24H IV (DC) Sodium Chloride (SODIUM CHLORIDE) 20 MLTamsulosin HCl (Flomax 0.4 mg) 0.4 MG PC BK PO Insulin Human Lispro (HUMALOG) 0 AC HS SUBQ Atorvastatin Calcium (LIPITOR) 40 MG BEDTIME PO Lactulose (LACTULOSE) 20 GM Q12HR PO Senna/Docusate Sodium (SENOKOT S) 1 TAB Q12HR PO Metoprolol Tartrate (LOPRESSOR) 50 MG Q8HR PO Clopidogrel Bisulfate (Plavix) 75 MG DAILY PO (DC) Allopurinol (ZYLOPRIM) 300 MG DAILY PO Aspirin (ASPIRIN) 81 MG DAILY PO Acetaminophen (TYLENOL) 650 MG Q6H PRN PRN PO Bisacodyl (DULCOLAX) 10 MG DAILY PRN PRN RECTAL Polyethylene Glycol (MIRALAX) 17 GM Q12H PO Dextrose/Water (DEXTROSE 10% IN WATER) 125 ML ASDIR PRN IV (CKD) Dextrose/Water (DEXTROSE 10% IN WATER) 250 ML ASDIR PRN IV (CKD) Glucagon (GLUCAGON) 1 MG ASDIR PRN IM Sodium Chloride (SODIUM CHLORIDE 0.9%) 250 ML BOLUS PRN IV Latanoprost (XALATAN 2.5 ML OPHTH SOLN) 1 DROP BEDTIME EACH EYE Timolol Maleate (TIMOPTIC 0.5% 5 ML OPHTH SOLN) 1 DROP BID EACH EYE Brimonidine Tartrate (Alphagan-P 0.2% 5 ML OPHTH SOLN) 1 DROP Q8HR EACH EYE Hydralazine HCl (APRESOLINE) 10 MG Q6H PRN PRN IV Ondansetron HCl (ZOFRAN) 4 MG Q4H PRN PRN IV Dietitian nutrition assessmentThe data set between the solid lines has been imported from the dietitian's assessment. BMI Calculated: 27.7Nutrition related diagnosis: OverweightNutrition diagnosis details: BMI 25-29.9Nutrition problem: Inadequate oral intakeNutrition etiology: PT LETHARGIC /SWALLOWING Nutrition signs and symptoms: ENTERAL NUTRITION TO MEET , ENERGY NEEDS , (DIET ADVANCED TO PUREED AND, TOLERATED.)Nutrition prescription: 1. RECOMMEND PUREED CCD5 DIET. 2. PROVIDE GLUCERNA TID WITH MEALS. 3. MONITOR PO, WT, LABS, BM.Dietitian name: Jo Kaba, MS, RD, LDAssessment completed: 08/27/23 Physical ExamGeneral appearance: alert, awakeHEENT: atraumatic, clear cornea, normocephalicNeck: suppleCardiovascular: regular rate rhythmRespiratory: on oxygenAbdomen: softGenitourinary: not indicatedExtremities: warmNeuro/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: alertSkin: warmFindings/data:Laboratory Tests: 08/29 08/28 08/28 08/28 0735 1936 1626 1140 Chemistry POC Glucose (70 - 110 MG/DL) 134 H 143 H 173 H 182 H Microbiology: Date/Time Procedure - Status Source Growth 08/29 1126 Blood Culture - ORD BLOOD 08/29 1126 Blood Culture Gram Stain - ORD BLOOD 08/29 1126 Blood Culture - ORD BLOOD 08/29 1126 Blood Culture Gram Stain - ORD BLOOD Recent Impressions:CAT SCAN - CT ABD PELVIS W/CONT 08/28 1640 Report Impression - Status: SIGNED Entered: 08/29/20231921 IMPRESSION: 1. Percutaneous cholecystostomy tube and parallel right lobe of liverpigtail catheter remain in satisfactory position. There is no residualintrahepatic abscess collection and the gallbladder is now completelydecompressed.2. No biliary dilatation.3. Mild colonic air distention unchanged since prior study andprobably reflecting chronic adynamic ileus.4. Chronic scarring in the lower poles of both kidneys.5. No free fluid or free air.Impression By: Suraj - Krystyna Olivarez M.D. Laboratory Tests: 08/29 08/28 08/28 08/28 0735 1936 1626 1140 Chemistry POC Glucose (70 - 110 MG/DL) 134 H 143 H 173 H 182 H Microbiology: Date/Time Procedure - Status Source Growth 08/29 112 Blood Culture - ORD BLOOD 08/29 112 Blood Culture Gram Stain - ORD BLOOD 08/29 112 Blood Culture - ORD BLOOD 08/29 1126 Blood Culture Gram Stain - ORD BLOOD Recent Impressions:CAT SCAN - CT ABD PELVIS W/CONT 08/28 1640 Report Impression - Status: SIGNED Entered: 08/29/20231921 IMPRESSION: 1. Percutaneous cholecystostomy tube and parallel right lobe of liverpigtail catheter remain in satisfactory position. There is no residualintrahepatic abscess collection and the gallbladder is now completelydecompressed.2. No biliary dilatation.3. Mild colonic air distention unchanged since prior study andprobably reflecting chronic adynamic ileus.4. Chronic scarring in the lower poles of both kidneys.5. No free fluid or free air.Impression By: Suraj - Krystyna Olivarez M.D. Diagnosis, Assessment PlanFree Text A P:1.DM ZPZsnQ5r 8.2adjust Lantus adjust Humalog monitor glucose diabetic diet DC Plan: Lantus, Humalog, follow at next available appointment. 2.Abnormal thyroid functions 08/06 TSH 0.07 FT4 1 recheck in a couple of days 3.Suspected ischemic strokeMRI brain without contrastEchocardiogramTelemetryneurology following 4.Coronary artery diseasePCI on July 03, 2023Echocardiogram preserved LVEFdual antiplateletscardiology following 5. Elevated LFTsGI following 6.MRCP with complex cystic fluid collectionpost drainage surgery following at 1317 at 1500 RPT #:[id number] OF REPORTPRProgress [id number]:33:00G.[id number] for patient vmeoDHWAOEOZWFZYWS0800-53-56F35:17:45 [facility]ACL 2023-08-30 10:54:00 [id number] tu8HvfYb9k486HYP5jO Vrk9XryeLibmzxvub0775-69-35N26:54:00 [facility]ospital[facility] Progress NoteREPORT#:[id number] REPORT STATUS: SignedREPORT INITIALIZATION DATE:08/30/23 TIME: 1054 PATIENT: MISSY CANALES UNIT #: [id number]#: [id number] [address] [birth year] AGE: 68 SEX: M ATTEND: Raphael Ly MDADM AUTHOR: Clyde Lares SERVICE DT/TIME: 08/30/23 1054* ALL edits or amendments must be made on the electronic/computer document * SubjectiveChief complaint:Patient is resting comfortably in bed in no acute distress Objective GeneralVS/I O:Vital Signs: Date Time Temp Pulse Resp B/P B/P Pulse O2 O2 Flow FiO2 Mean Ox Delivery Rate 08/29 0739 99.9 16 08/29 0737 101.5 98 16 122/77 92.2 98 Room air 08/29 0343 103 18 120/77 91.6 98 Room air 08/28 2323 98.6 93 14 108/70 82.6 97 08/28 1935 98.4 111 19 118/76 90.4 99 Room air 08/28 1627 98 15 133/76 95.2 94 Room air 08/28 1142 96 16 115/73 87.1 98 Room air 24 hour I O ending at 0700: 08/29 0700 08/28 1900 Intake Total Output Total 140 Balance -140 Output, 140 Drainage PATIENT WEIGHT: Weight (lb): 177Weight (oz): 14.61Weight (kg): 80.286 Medications:Active Meds + DC'd Last 24 HrsApixaban (ELIQUIS 5MG TABLET) 5 MG BID PO (UNVr) Iopamidol (ISOVUE-370 100ML) 100 ML .STK-MED ONE IV (DC) Pantoprazole (PROTONIX) 40 MG BID AC PO Insulin Glargine (Semglee) 20 UNIT DAILY SUBQ Lansoprazole (PREVACID) 30 MG BID PO (DC) Insulin Human Lispro (HUMALOG) 3 UNIT AC SUBQ Ceftriaxone Sodium (ROCEPHIN) 2,000 MG Q24H IV (DC) Sodium Chloride (SODIUM CHLORIDE) 20 MLTamsulosin HCl (Flomax 0.4 mg) 0.4 MG PC BK PO Insulin Human Lispro (HUMALOG) 0 AC HS SUBQ Atorvastatin Calcium (LIPITOR) 40 MG BEDTIME PO Lactulose (LACTULOSE) 20 GM Q12HR PO Senna/Docusate Sodium (SENOKOT S) 1 TAB Q12HR PO Metoprolol Tartrate (LOPRESSOR) 50 MG Q8HR PO Clopidogrel Bisulfate (Plavix) 75 MG DAILY PO (DCr) Allopurinol (ZYLOPRIM) 300 MG DAILY PO Aspirin (ASPIRIN) 81 MG DAILY PO Acetaminophen (TYLENOL) 650 MG Q6H PRN PRN PO Bisacodyl (DULCOLAX) 10 MG DAILY PRN PRN RECTAL Polyethylene Glycol (MIRALAX) 17 GM Q12H PO Dextrose/Water (DEXTROSE 10% IN WATER) 125 ML ASDIR PRN IV (CKD) Dextrose/Water (DEXTROSE 10% IN WATER) 250 ML ASDIR PRN IV (CKD) Glucagon (GLUCAGON) 1 MG ASDIR PRN IM Sodium Chloride (SODIUM CHLORIDE 0.9%) 250 ML BOLUS PRN IV Latanoprost (XALATAN 2.5 ML OPHTH SOLN) 1 DROP BEDTIME EACH EYE Timolol Maleate (TIMOPTIC 0.5% 5 ML OPHTH SOLN) 1 DROP BID EACH EYE Brimonidine Tartrate (Alphagan-P 0.2% 5 ML OPHTH SOLN) 1 DROP Q8HR EACH EYE Hydralazine HCl (APRESOLINE) 10 MG Q6H PRN PRN IV Ondansetron HCl (ZOFRAN) 4 MG Q4H PRN PRN IV Physical ExamGeneral appearance: alert, awakeHead/Eyes: atraumatic, normocephalic, PERRLAENT: moist mucosal membranes, normal dentitionNeck: full range of motion, non-tender, no JVDCardiovascular: normal heart sounds, regular rate rhythmRespiratory: aerating well, symmetric expansion, no distressAbdomen: non-tender, normal bowel sounds, jtube present with minimal collection (liver abscess drains in place)Genitourinary: no bladder distention, no flank painExtremities: no clubbing, no cyanosisMusculoskeletal: no muscle spasmNeuro/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: abnormal speech, disoriented, alert ResultsFindings/Data:Laboratory Tests 08/29 08/28 08/28 08/28 0735 1936 1626 1140 Chemistry POC Glucose (70 - 110 MG/DL) 134 H 143 H 173 H 182 H Treatment Prophylaxis Treatment ProphylaxisOxygen: room air Diagnosis, Assessment PlanProblem List/A P: 1. Acute cholangitis 2. Elevated LFTs 3. Liver abscess 4. Failure to thrive Free Text DxA P NotesFree text DxA P notes:68-year-old male admitted with abdominal pain, noted with NSTEMI, s/p stent placement to diagonal artery on 07/02/23. Still need staged PCI to RCA. Patient was noted with a liver abscess, seen by general surgery and GI, drain was placedby IR, has been tolerating antibiotics well. Patient was noted with some anemia, EGD was unremarkable but for gastric ulcers with no active bleeding.* Appreciated input from general surgery, GI, cardiology, and ID* Continue on broad-spectrum antibiotics for 4 more days* Continue on PPI* Encourage oral intake and therapy* is at the bedside and all concerns addressed* Patient is awaiting SNF placement * See my DC summary from 08/22 for details at 1055 RPT #:[id number] OF REPORTPRProgress [id number]:54:00G.[id number] for patient uaavNWWUAQMMEKFQWC4108-63-30L22:56:19 [facility] 2023-08-30 07:51:00 [id number] TOWw2ihOsXDzYzqMR7V 6eC0YfaLkzhVJCleu3499-97-10H54:51:00 [facility] ([facility])Cardiology Progress NoteREPORT#:[id number] REPORT STATUS: SignedREPORT INITIALIZATION DATE:08/30/23 TIME: 750 PATIENT: MISSY CANALES UNIT #: [id number]#: [id number] [address] [birth year] AGE: 68 SEX: M ATTEND: Raphael Ly AUTHOR: Esther BucknerPREPT SERVICE DT/TIME: 08/30/23 0751* ALL edits or amendments must be made on the electronic/computer document * SubjectiveComments:Fever overnight. Tele with intermittent afib Objective GeneralVS/I O:24 hour I O ending at 0700: 08/29 0700 08/28 1900 Intake Total Output Total 140 Balance -140 Output, 140 Drainage Vital Signs: Date Time Temp Pulse Resp B/P B/P Pulse O2 O2 Flow FiO2 Mean Ox Delivery Rate 08/29 0739 37.7 16 08/29 0737 38.6 98 16 122/77 92.2 98 Room air 08/29 0343 103 18 120/77 91.6 98 Room air 08/28 2323 37.0 93 14 108/70 82.6 97 08/28 1935 36.9 111 19 118/76 90.4 99 Room air 08/28 1627 98 15 133/76 95.2 94 Room air 08/28 1142 96 16 115/73 87.1 98 Room air PATIENT WEIGHT: Weight (lb): 177Weight (oz): 14.61Weight (kg): 80.286 Medications:Active Meds + DC'd Last 24 HrsIopamidol (ISOVUE-370 100ML) 100 ML .STK-MED ONE IV (DC) Pantoprazole (PROTONIX) 40 MG BID AC PO Insulin Glargine (Semglee) 20 UNIT DAILY SUBQ Lansoprazole (PREVACID) 30 MG BID PO (DC) Insulin Human Lispro (HUMALOG) 3 UNIT AC SUBQ Ceftriaxone Sodium (ROCEPHIN) 2,000 MG Q24H IV (DC) Sodium Chloride (SODIUM CHLORIDE) 20 MLTamsulosin HCl (Flomax 0.4 mg) 0.4 MG PC BK PO Insulin Human Lispro (HUMALOG) 0 AC HS SUBQ Atorvastatin Calcium (LIPITOR) 40 MG BEDTIME PO Lactulose (LACTULOSE) 20 GM Q12HR PO Senna/Docusate Sodium (SENOKOT S) 1 TAB Q12HR PO Metoprolol Tartrate (LOPRESSOR) 50 MG Q8HR PO Clopidogrel Bisulfate (Plavix) 75 MG DAILY PO Allopurinol (ZYLOPRIM) 300 MG DAILY PO Aspirin (ASPIRIN) 81 MG DAILY PO Acetaminophen (TYLENOL) 650 MG Q6H PRN PRN PO Bisacodyl (DULCOLAX) 10 MG DAILY PRN PRN RECTAL Polyethylene Glycol (MIRALAX) 17 GM Q12H PO Dextrose/Water (DEXTROSE 10% IN WATER) 125 ML ASDIR PRN IV (CKD) Dextrose/Water (DEXTROSE 10% IN WATER) 250 ML ASDIR PRN IV (CKD) Glucagon (GLUCAGON) 1 MG ASDIR PRN IM Sodium Chloride (SODIUM CHLORIDE 0.9%) 250 ML BOLUS PRN IV Latanoprost (XALATAN 2.5 ML OPHTH SOLN) 1 DROP BEDTIME EACH EYE Timolol Maleate (TIMOPTIC 0.5% 5 ML OPHTH SOLN) 1 DROP BID EACH EYE Brimonidine Tartrate (Alphagan-P 0.2% 5 ML OPHTH SOLN) 1 DROP Q8HR EACH EYE Hydralazine HCl (APRESOLINE) 10 MG Q6H PRN PRN IV Ondansetron HCl (ZOFRAN) 4 MG Q4H PRN PRN IV Physical ExamGeneral appearance: chronically ill appearing, frail, no acute distressCardiovascular: CV assessment: ectopy, irregular rhythm, tachycardiaRespiratory: decreased breath sounds, no distressAbdomen: softGenitourinary: no urinary catheterUpper extremity: UE assessment: normal capillary refill, normal temperatureLower extremity: LE assessment: no edemaMusculoskeletal: decreased ROMSkin: dryPsychiatry: unable to evaluate ResultsFindings/Data:Laboratory Tests 08/28 08/28 08/28 1936 1626 1140 Chemistry POC Glucose (70 - 110 MG/DL) 143 H 173 H 182 H Laboratory Tests 08/28 0947 Hematology WBC (4.5 - 11.0 x10 3/uL) 9.0 RBC (4.00 - 5.60 x10 6/uL) 2.69 L Hgb (12.5 - 16.9 g/dL) 8.3 L Hct (37.5 - 50.7 %) 27.5 L MCV (81.0 - 99.0 fL) 102.2 H MCH (27.0 - 33.0 pg) 30.9 MCHC (33.0 - 37.0 g/dL) 30.2 L RDW (11.5 - 14.5 %) 19.3 H Plt Count (150 - 400 x10 3/uL) 237 MPV (7.0 - 9.0 fL) 10.1 H Neut % (Auto) (56.0 - 77.0 %) 55.0 L Lymph % (Auto) (14.0 - 32.0 %) 34.5 H Evans % (Auto) (4.8 - 9.0 %) 7.0 Eos % (Auto) (0.3 - 3.7 %) 2.9 Baso % (Auto) (0.0 - 2.0 %) 0.3 Neut # (Auto) (2.0 - 7.6 x10 3/uL) 4.94 Lymph # (Auto) (1.0 - 3.8 x10 3/uL) 3.10 Evans # (Auto) (0.1 - 0.8 x10 3/uL) 0.63 Eos # (Auto) (0.0 - 0.2 x10 3/uL) 0.26 H Baso # (Auto) (0.0 - 0.2 x10 3/uL) 0.03 Abs Immat Gran (auto) (0.00 - 0.03 x10 3/uL) 0.03 Immature Gran % (0.0 - 2.0 %) 0.3 Nucleated RBC % (0 - 0 %) 0.2 H Nucleated RBCs # (Man) (0.0 - 0.1 x10 3/uL) 0.02 Radiology data:Recent Impressions:CAT SCAN - CT ABD PELVIS W/CONT 08/28 1640 Report Impression - Status: SIGNED Entered: 08/29/20231921 IMPRESSION: 1. Percutaneous cholecystostomy tube and parallel right lobe of liverpigtail catheter remain in satisfactory position. There is no residualintrahepatic abscess collection and the gallbladder is now completelydecompressed.2. No biliary dilatation.3. Mild colonic air distention unchanged since prior study andprobably reflecting chronic adynamic ileus.4. Chronic scarring in the lower poles of both kidneys.5. No free fluid or free air.Impression By: Suraj Olivarez M.D. Results: labs reviewed, vital signs reviewed, rhythm personally rev'dTelemetry Interpretation:intermittent afib. Scores FYO7XB5-ZHYg CbysnRBA8LX6-YZHa Score UXM2JZ8-XAPh Score Response Value HTN: Yes 1 age between 65 and 74 yrs: Yes 1 hx stroke, TIA, or TE: Yes 2 vascular disease: Yes 1 diabetes mellitus: Yes 1 Total 6 QIS-SLWC-TyqwwRUS-BLED Score HAS-BLED Score Response Value uncontrolled HTN-SBP>160 No 0 abn renal fxn/creat>=2.6 No 0 abnormal liver function: No 0 age 65 yrs or greater: Yes 1 hx of stroke: Yes 1 bleeding: Yes 1 labile INR: No 0 use of drugs w/bleed risk: Antiplatelet/ASA 325mg 1 Total 4 Diagnosis, Assessment PlanPlan discussed with: patient, spouse/partner Free Text DxA P NotesFree Text DxA P Notes:1. Coronary artery disease s/p recent PCI/TERESA to diagonal artery* Troponin trend is flat* Hx of CABG (2000)* s/p stent placement to diagonal artery on 07/02/23. Still need staged PCI to RCA. * Echocardiogram preserved LVEF.* PPI: lansoprazole 30 mg BID* DC plavix and switch to Eliquis (afib) and ASA - tx decision discussed in depth with 2. Elevated LFTs/acute cholecystitis/liver abscess* s/p cholecystostomy tube placement. * ID on board managing antibiotic* GI on board* s/p EGD: nonbleeding ulcer 3. AMS: MRI brain showed small subacute ischemia in the L coronary radiata * MRI of the brain unchanged 4. Tachycardia with PVCs and PACs/Paroxysmal atrial fibrillation* Continue metoprolol 50 mg every 8 hours. * Telemetry tachycardic with frequent PVCs and PACs and intermittent afb * CRB7ZB0-APRi score 6, recommend AC * HASBLED 4* will stop Plavix and start Eliquis 5 mg BID plus ASA 81 mg daily. 5. Anemia* hgb 6.3 up to 8.9->8.6->6.9->7->8.7->8.6->8.3* s/p 2 units PRBCs 08/20/23, 1 unit PRBC 08/26/23* On PPI* GI on board, s/p EGD showed nonbleeding ulcer fever overnight, defer workup to primary team.Insurance denied SNF, is appealing. Medical decision making by Dr. Daniel. at 1246 at 1300 RPT #:[id number] OF REPORTPRProgress ehpc2753-25-19I82:51:00G.[id number] for patient pduiWOEKTJCTCJFBGL3912-28-56Q61:46:38 [facility] 2023-08-29 14:11:00 [id number]7d JoxV3f+tTu5ZjZSDKe/ S1qiwiqowhr7MtqOB3052-75-95G45:11:00 [facility] Progress NoteREPORT#:[id number] REPORT STATUS: SignedREPORT INITIALIZATION DATE:08/29/23 TIME: 1410 PATIENT: MISSY CANALES UNIT #: [id number]#: [id number] [address] AGE: 68 SEX: M ATTEND: Raphael Ly MDADM AUTHOR: Agus Duckworth APRNNPREPT SERVICE DT/TIME: 08/29/23 1130* ALL edits or amendments must be made on the electronic/computer document * SubjectiveChief complaint:f/u DM IIlabile diethas not been given Humalog Objective GeneralVS:Last Documented: Result Date Time Pulse Ox 98 08/28 1142 B/P 115/73 08/28 1142 B/P Mean 87.1 08/28 1142 O2 Delivery Room air 08/28 1142 Pulse 96 08/28 1142 Resp 16 08/28 1142 Temp 96.6 08/28 0718 O2 Flow Rate 2 08/27 1022 FiO2 40 08/07 0752 PATIENT WEIGHT: Weight (lb): 177Weight (oz): 14.61Weight (kg): 80.286 Medications:Active Meds + DC'd Last 24 HrsPantoprazole (PROTONIX) 40 MG BID AC PO Insulin Glargine (Semglee) 20 UNIT DAILY SUBQ Lansoprazole (PREVACID) 30 MG BID PO (DC) Insulin Human Lispro (HUMALOG) 3 UNIT AC SUBQ Ceftriaxone Sodium (ROCEPHIN) 2,000 MG Q24H IV Sodium Chloride (SODIUM CHLORIDE) 20 MLTamsulosin HCl (Flomax 0.4 mg) 0.4 MG PC BK PO Insulin Human Lispro (HUMALOG) 0 AC HS SUBQ Atorvastatin Calcium (LIPITOR) 40 MG BEDTIME PO Lactulose (LACTULOSE) 20 GM Q12HR PO Senna/Docusate Sodium (SENOKOT S) 1 TAB Q12HR PO Metoprolol Tartrate (LOPRESSOR) 50 MG Q8HR PO Clopidogrel Bisulfate (Plavix) 75 MG DAILY PO Allopurinol (ZYLOPRIM) 300 MG DAILY PO Aspirin (ASPIRIN) 81 MG DAILY PO Acetaminophen (TYLENOL) 650 MG Q6H PRN PRN PO Bisacodyl (DULCOLAX) 10 MG DAILY PRN PRN RECTAL Polyethylene Glycol (MIRALAX) 17 GM Q12H PO Dextrose/Water (DEXTROSE 10% IN WATER) 125 ML ASDIR PRN IV (CKD) Dextrose/Water (DEXTROSE 10% IN WATER) 250 ML ASDIR PRN IV (CKD) Glucagon (GLUCAGON) 1 MG ASDIR PRN IM Sodium Chloride (SODIUM CHLORIDE 0.9%) 250 ML BOLUS PRN IV Latanoprost (XALATAN 2.5 ML OPHTH SOLN) 1 DROP BEDTIME EACH EYE Timolol Maleate (TIMOPTIC 0.5% 5 ML OPHTH SOLN) 1 DROP BID EACH EYE Brimonidine Tartrate (Alphagan-P 0.2% 5 ML OPHTH SOLN) 1 DROP Q8HR EACH EYE Hydralazine HCl (APRESOLINE) 10 MG Q6H PRN PRN IV Ondansetron HCl (ZOFRAN) 4 MG Q4H PRN PRN IV Dietitian nutrition assessmentThe data set between the solid lines has been imported from the dietitian's assessment. BMI Calculated: 27.7Nutrition related diagnosis: OverweightNutrition diagnosis details: BMI 25-29.9Nutrition problem: Inadequate oral intakeNutrition etiology: PT LETHARGIC /SWALLOWING Nutrition signs and symptoms: ENTERAL NUTRITION TO MEET , ENERGY NEEDS , (DIET ADVANCED TO PUREED AND, TOLERATED.)Nutrition prescription: 1. RECOMMEND PUREED CCD5 DIET. 2. PROVIDE GLUCERNA TID WITH MEALS. 3. MONITOR PO, WT, LABS, BM.Dietitian name: Jo Sendy, MS, RD, LDAssessment completed: 08/27/23 Physical ExamGeneral appearance: alert, awakeHEENT: atraumatic, clear cornea, normocephalicNeck: suppleCardiovascular: regular rate rhythmRespiratory: on oxygenAbdomen: softGenitourinary: not indicatedExtremities: warmNeuro/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: alertSkin: warmFindings/data:Laboratory Tests: 08/28 08/28 08/28 08/27 08/27 1140 0947 0716 1955 1652Chemistry POC Glucose (70 - 110 MG/DL) 182 H 150 H 169 H 121 HHematology WBC (4.5 - 11.0 x10 3/uL) 9.0 RBC (4.00 - 5.60 x10 6/uL) 2.69 L Hgb (12.5 - 16.9 g/dL) 8.3 L Hct (37.5 - 50.7 %) 27.5 L MCV (81.0 - 99.0 fL) 102.2 H MCH (27.0 - 33.0 pg) 30.9 MCHC (33.0 - 37.0 g/dL) 30.2 L RDW (11.5 - 14.5 %) 19.3 H Plt Count (150 - 400 x10 3/uL) 237 MPV (7.0 - 9.0 fL) 10.1 H Neut % (Auto) (56.0 - 77.0 %) 55.0 L Lymph % (Auto) (14.0 - 32.0 %) 34.5 H Evans % (Auto) (4.8 - 9.0 %) 7.0 Eos % (Auto) (0.3 - 3.7 %) 2.9 Baso % (Auto) (0.0 - 2.0 %) 0.3 Neut # (Auto) (2.0 - 7.6 x10 3/uL) 4.94 Lymph # (Auto) (1.0 - 3.8 x10 3/uL) 3.10 Evans # (Auto) (0.1 - 0.8 x10 3/uL) 0.63 Eos # (Auto) (0.0 - 0.2 x10 3/uL) 0.26 H Baso # (Auto) (0.0 - 0.2 x10 3/uL) 0.03 Abs Immat Gran (auto) (0.00 - 0.03 0.03x10 3/uL) Immature Gran % (0.0 - 2.0 %) 0.3 Nucleated RBC % (0 - 0 %) 0.2 H Nucleated RBCs # (Man) (0.0 - 0.1 0.02x10 3/uL) Laboratory Tests: 08/28 08/28 08/28 08/27 1140 0947 0716 1955Chemistry POC Glucose (70 - 110 MG/DL) 182 H 150 H 169 HHematology WBC (4.5 - 11.0 x10 3/uL) 9.0 RBC (4.00 - 5.60 x10 6/uL) 2.69 L Hgb (12.5 - 16.9 g/dL) 8.3 L Hct (37.5 - 50.7 %) 27.5 L MCV (81.0 - 99.0 fL) 102.2 H MCH (27.0 - 33.0 pg) 30.9 MCHC (33.0 - 37.0 g/dL) 30.2 L RDW (11.5 - 14.5 %) 19.3 H Plt Count (150 - 400 x10 3/uL) 237 MPV (7.0 - 9.0 fL) 10.1 H Neut % (Auto) (56.0 - 77.0 %) 55.0 L Lymph % (Auto) (14.0 - 32.0 %) 34.5 H Evans % (Auto) (4.8 - 9.0 %) 7.0 Eos % (Auto) (0.3 - 3.7 %) 2.9 Baso % (Auto) (0.0 - 2.0 %) 0.3 Neut # (Auto) (2.0 - 7.6 x10 3/uL) 4.94 Lymph # (Auto) (1.0 - 3.8 x10 3/uL) 3.10 Evans # (Auto) (0.1 - 0.8 x10 3/uL) 0.63 Eos # (Auto) (0.0 - 0.2 x10 3/uL) 0.26 H Baso # (Auto) (0.0 - 0.2 x10 3/uL) 0.03 Abs Immat Gran (auto) (0.00 - 0.03 x10 3/uL) 0.03 Immature Gran % (0.0 - 2.0 %) 0.3 Nucleated RBC % (0 - 0 %) 0.2 H Nucleated RBCs # (Man) (0.0 - 0.1 x10 3/uL) 0.02 08/27 1652 Chemistry POC Glucose (70 - 110 MG/DL) 121 H Diagnosis, Assessment PlanFree Text A P:1.DM RWVglP0z 8.2adjust Lantus adjust Humalog monitor glucose diabetic diet DC Plan: Lantus, Humalog, follow at next available appointment. 2.Abnormal thyroid functions 08/06 TSH 0.07 FT4 1 recheck in a couple of days 3.Suspected ischemic strokeMRI brain without contrastEchocardiogramTelemetryneurology following 4.Coronary artery diseasePCI on July 03, 2023Echocardiogram preserved LVEFdual antiplateletscardiology following 5. Elevated LFTsGI following 6.MRCP with complex cystic fluid collectionpost drainage surgery following at 1104 at 1500 RPT #:[id number] OF REPORTPRProgress rxnm9724-80-33K09:11:00G.[id number] for patient hlyoVULVKOFQCQCMWD3133-59-83T65:04:51 [facility] 2023-08-29 14:00:00 [id number] ZBZRrSFNzp09dfdybuf 01gxvqCct84vNbYc38966-71-64F42:00:00 [facility] ([facility])Gastroenterology Progress NoteREPORT#:[id number] REPORT STATUS: SignedREPORT INITIALIZATION DATE:08/29/23 TIME: 1400 PATIENT: MISSY CANALES UNIT #: [id number]#: [id number] [address] [birth year] AGE: 68 SEX: M ATTEND: Raphael Ly MDADM AUTHOR: Lisa Cancino MDREPT SERVICE DT/TIME: 08/29/23 1400* ALL edits or amendments must be made on the electronic/computer document * SubjectiveChief complaint:Elevated LFtsHPI:68 year old man s/p cardiac stents 2 weeks ago who was sent to the hospital withelevated LFTs and possible acute cholecystitis. Pt had a stenet recently placed and was started on DAPT. Pt had labs showing elevated LFTs and was sent here forevaluation. Labs showed leukocytosis 15k. Elevated Tbili 3.7. Dbili 2.8. AST 79,ALT 105 and ALP 225. RUQ U/S showed possible cholecystitis and normal CBD of 4 mm in diatmeter. Pt denies pain. No dark urine or peyton-color stool 08/03; patient feels well. MRCP reviewed. No choledocholithiasis. Fluid collection at the liver could be related secondary to gallbladder perforation. LFTs and white count are down. 08/04: Plan for IR for cholecystostomy tube placement. LFts stable. WBC elevated.Was confused this am but improving. NO pain. No fevers. Added flagyl to his Abx regimen 08/05: NO new complaints. IR for abscess drain and cholecystostomy tube 08/06: Transferred overnight to ICU due to AMS. S/P IR with cholecystostomy tube and abscess drain 08/07: severely constipated. NGT in with feeds. drains in. More awake today and oriented. right sided weakness likely acute stroke. MRI brain reviewed- small stroke. KUB reviewed 08/08: Doing better according to . Sheldon removed. Still on feeds 08/09: Feeds at 20 ml/hr. Still no BM 08/10-Had BM last night. Denies n/v/abd pain 08/11-Patient dislodged DH. DH was replaced. +BM today 08/12: has been having BM during the weekend 08/13: No new events 08/14: eating and moving bowels. 08/15: doing well. 08/26: I was called again to evaluate pt. He has melena-like stool and dropped hisH/H. Pt is on DAPT 08/27: S/P EGD showing gastric ulcer in the incisura. flat pigmentation without high rebleeding stigmata. 08/28: H/H stable. Family at bedside. NO melena Objective Physical ExamHEENT: EOMICardiovascular: normal heart soundsRespiratory: clear to auscultationAbdomen: non-tenderExtremities: no edemaSkin: dry, normal temperature Diagnosis, Assessment PlanProblem List/A P: 1. Elevated LFTs Free Text A P:cholestatic pattern. CBD normal on RuQ U/S MRCP showed no evidence of choledocholithiasis.Large fluid collection within the liver could be secondary to gallbladder perforation.Recommend surgical evaluation again.Continue with antibiotics. Add flagyl s/p cholecystostomy tube and drainage of cystic fluid collection. Awaiting culture EGD showed gastric ulcer with flat pigmentPPI PO BID Will need repeat EGD in 6 weeks to confirm healing and rule out malignancyD/W family at 1401 RPT #:[id number] OF REPORTPRProgress ilxt1370-04-09V64:00:00G.[id number] for patient ylvbOMLGBJOESCPZPZ4856-51-58N84:01:50 [facility] 2023-08-29 10:49:00 [id number]+VVOmYHfc vlLZBODT+ebPHOpaD96 UDBcCuGL4lMlqnNJw0805-93-14D82:49:00 [facility])Hospitalist Progress NoteREPORT#:[id number] REPORT STATUS: SignedREPORT INITIALIZATION DATE:08/29/23 TIME: 1049 PATIENT: MISSY CANALES UNIT #: [id number]#: [id number] [place] [facility] [place]OB: [birth year] AGE: 68 SEX: M ATTEND: Raphael Ly MDADM AUTHOR: Clyde Lares DOREPT SERVICE DT/TIME: 08/29/23 1049* ALL edits or amendments must be made on the electronic/computer document * SubjectiveChief complaint:Patient is resting comfortably in bed in no acute distress Objective GeneralVS/I O:Vital Signs: Date Time Temp Pulse Resp B/P B/P Pulse O2 O2 Flow FiO2 Mean Ox Delivery Rate 08/28 0718 96.6 89 16 119/70 86.3 98 Room air 08/28 0403 98.6 108 113/59 77.0 96 / 2339 98.2 97 105/64 77.5 98 / 1957 99.0 85 17 127/73 91.2 96 Room air / 1654 98.1 98 16 112/71 84.3 97 Room air 04/ 1115 88 20 112/64 100 04/02 1100 88 20 116/68 100 04/02 1055 87 20 114/65 100 04/02 1050 97.9 89 22 119/68 100 24 hour I O ending at 0700: 08/28 0700 / 1900 Intake Total 150.00 Output Total Balance 150.00 Intake, IV 150.00 PATIENT WEIGHT: Weight (lb): 177Weight (oz): 14.61Weight (kg): 80.286 Medications:Active Meds + DC'd Last 24 HrsFentanyl Citrate (SUBLIMAZE) 100 MCG PACU Q10MIN PRN PRN IV (DC) Fentanyl Citrate (SUBLIMAZE) 50 MCG PACU Q10MIN PRN PRN IV (DC) Hydralazine HCl (APRESOLINE) 2 MG PACU Q10MIN PRN PRN IV (DC) Insulin Human Lispro (HUMALOG) 0 PACU ONCE PRN SUBQ (DC) Labetalol HCl (labetalol) 5 MG PACU Q10MIN PRN PRN IV (DC) Ondansetron HCl (ZOFRAN) 4 MG PACU ONCE PRN IV (DC) Sodium Chloride (SODIUM CHLORIDE 0.9%) 1,000 ML .Q24H IV (DC) Insulin Glargine (Semglee) 20 UNIT DAILY SUBQ Lansoprazole (PREVACID) 30 MG BID PO Insulin Human Lispro (HUMALOG) 3 UNIT AC SUBQ Ceftriaxone Sodium (ROCEPHIN) 2,000 MG Q24H IV Sodium Chloride (SODIUM CHLORIDE) 20 MLTamsulosin HCl (Flomax 0.4 mg) 0.4 MG PC BK PO Insulin Human Lispro (HUMALOG) 0 AC HS SUBQ Atorvastatin Calcium (LIPITOR) 40 MG BEDTIME PO Lactulose (LACTULOSE) 20 GM Q12HR PO Senna/Docusate Sodium (SENOKOT S) 1 TAB Q12HR PO Metoprolol Tartrate (LOPRESSOR) 50 MG Q8HR PO Clopidogrel Bisulfate (Plavix) 75 MG DAILY PO Allopurinol (ZYLOPRIM) 300 MG DAILY PO Aspirin (ASPIRIN) 81 MG DAILY PO Acetaminophen (TYLENOL) 650 MG Q6H PRN PRN PO Bisacodyl (DULCOLAX) 10 MG DAILY PRN PRN RECTAL Polyethylene Glycol (MIRALAX) 17 GM Q12H PO Dextrose/Water (DEXTROSE 10% IN WATER) 125 ML ASDIR PRN IV (CKD) Dextrose/Water (DEXTROSE 10% IN WATER) 250 ML ASDIR PRN IV (CKD) Glucagon (GLUCAGON) 1 MG ASDIR PRN IM Sodium Chloride (SODIUM CHLORIDE 0.9%) 250 ML BOLUS PRN IV Latanoprost (XALATAN 2.5 ML OPHTH SOLN) 1 DROP BEDTIME EACH EYE Timolol Maleate (TIMOPTIC 0.5% 5 ML OPHTH SOLN) 1 DROP BID EACH EYE Brimonidine Tartrate (Alphagan-P 0.2% 5 ML OPHTH SOLN) 1 DROP Q8HR EACH EYE Hydralazine HCl (APRESOLINE) 10 MG Q6H PRN PRN IV Ondansetron HCl (ZOFRAN) 4 MG Q4H PRN PRN IV Physical ExamGeneral appearance: alert, awakeHead/Eyes: atraumatic, normocephalic, PERRLAENT: moist mucosal membranes, normal dentitionNeck: full range of motion, non-tender, no JVDCardiovascular: normal heart sounds, regular rate rhythmRespiratory: aerating well, symmetric expansion, no distressAbdomen: non-tender, normal bowel sounds, jtube present with minimal collection (liver abscess drains in place)Genitourinary: no bladder distention, no flank painExtremities: no clubbing, no cyanosisMusculoskeletal: no muscle spasmNeuro/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: abnormal speech, disoriented, alert ResultsFindings/Data:Laboratory Tests 08/28 08/27 08/27 08/27 0716 1955 1652 1052 Chemistry POC Glucose (70 - 110 MG/DL) 150 H 169 H 121 H 112 H Laboratory Tests 08/28 0947 Hematology WBC (4.5 - 11.0 x10 3/uL) 9.0 RBC (4.00 - 5.60 x10 6/uL) 2.69 L Hgb (12.5 - 16.9 g/dL) 8.3 L Hct (37.5 - 50.7 %) 27.5 L MCV (81.0 - 99.0 fL) 102.2 H MCH (27.0 - 33.0 pg) 30.9 MCHC (33.0 - 37.0 g/dL) 30.2 L RDW (11.5 - 14.5 %) 19.3 H Plt Count (150 - 400 x10 3/uL) 237 MPV (7.0 - 9.0 fL) 10.1 H Neut % (Auto) (56.0 - 77.0 %) 55.0 L Lymph % (Auto) (14.0 - 32.0 %) 34.5 H Evans % (Auto) (4.8 - 9.0 %) 7.0 Eos % (Auto) (0.3 - 3.7 %) 2.9 Baso % (Auto) (0.0 - 2.0 %) 0.3 Neut # (Auto) (2.0 - 7.6 x10 3/uL) 4.94 Lymph # (Auto) (1.0 - 3.8 x10 3/uL) 3.10 Evans # (Auto) (0.1 - 0.8 x10 3/uL) 0.63 Eos # (Auto) (0.0 - 0.2 x10 3/uL) 0.26 H Baso # (Auto) (0.0 - 0.2 x10 3/uL) 0.03 Abs Immat Gran (auto) (0.00 - 0.03 x10 3/uL) 0.03 Immature Gran % (0.0 - 2.0 %) 0.3 Nucleated RBC % (0 - 0 %) 0.2 H Nucleated RBCs # (Man) (0.0 - 0.1 x10 3/uL) 0.02 Treatment Prophylaxis Treatment ProphylaxisOxygen: room air Diagnosis, Assessment PlanProblem List/A P: 1. Acute cholangitis 2. Elevated LFTs 3. Liver abscess 4. Failure to thrive Free Text DxA P NotesFree text DxA P notes:68-year-old male admitted with abdominal pain, noted with NSTEMI, s/p stent placement to diagonal artery on 07/02/23. Still need staged PCI to RCA. Patient was noted with a liver abscess, seen by general surgery and GI, drain was placedby IR, has been tolerating antibiotics well.* Appreciated input from general surgery, GI, cardiology, and ID* Continue on broad-spectrum antibiotics for 1 more week* S/p EGD yesterday, noted with gastric ulcers with no active bleeding* Will start patient on PPI twice daily* Encourage oral intake and therapy* is at the bedside and all concerns addressed* Patient is awaiting SNF placement * See my DC summary from 08/22 for details at 1051 RPT #:[id number] OF REPORTPRProgress zoca2246-09-55N06:49:00G.[id number] for patient grjqVIBPXZJJCAJBOL3595-05-56O69:55:50 [facility] 2023-08-29 10:14:00 [id number]+cryVtfXl Dt5XDRLLvHaNJv+z8Nc xT0fC87geINb+QAS94191-09-11P92:14:00 [facility] ([facility])Infectious Dis. Progress NoteREPORT#:[id number] REPORT STATUS: SignedREPORT INITIALIZATION DATE:08/29/23 TIME: 1014 PATIENT: MISSY CANALES UNIT #: [id number]#: [id number] ROOM/BED: G.6617-1DOB: [birth year] AGE: 68 SEX: M ATTEND: Raphael Ly [facility] AUTHOR: Kajal Nguyen MDREPT SERVICE DT/TIME: 08/29/23 1014* ALL edits or amendments must be made on the electronic/computer document * SubjectiveChief complaint:Follow-up on bacteremia, hepatic abscess, cholecystitis, aspiration pneumoniaHPI:Review of systems is somewhat limited due to patient's limited responses. Nonetheless, he appears comfortable. present at bedside. No major overnight events. Objective Physical ExamWound/incision: Location:cholecystostomy tube and RUQ drain in placeHead/Eyes: atraumatic, normocephalicCardiovascular: regular rate rhythm, no murmurRespiratory: clear to auscultation, symmetric expansionAbdomen: non-tender, soft, no distention, percutaneous drains in place in RUQExtremities: no cyanosis, no edemaNeuro/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 Canales is a 68-year-old male with PMH of HTN, DMII, CAD s/p stent who came to [facility] initially with N/V and abdominal pain. His pain was started 2 days prior to admission. His work up showed elevated LFTs, bilirubin, troponin. His US abdomen showed cholelithiasis with distended gallbladder including material at the gallbladder neck concerning for impacted stone. Patient started on empiric antibiotics and had cultures done with blood culture showing gram negative bacilli. Patient has been febrile and tachycardic while here. GI and general surgery are consulted. Patient was found to have acute cholecystitis with a liver abscess. He had a drain in the gallbladder and in the abscess placed. Blood culture eventually grew Citrobacter and so did the abscess. *Fever--Recurrent after improvement--UA via straight cath (-)--Covid (-)--Flu (-)--F/U CT A/P, decreased liver absces; (+) LLL infiltrates c/w PNA*PNA--CT LLL infiltrates c/w aspiration*Bacteremia--Citrobacter--Source: Biliary*Liver abscess--MRCP showed 4.6 x 3.6 x 3.0 thick walled cystic lesion/fluid collection liver abutting GB fossa--S/P IR drain 08/05, cx Citrobacter*Acute cholecystitis--S/P IR placed cholecystotomy tube ., cx Citrobacter*Acute stroke--MRI (+) subacute Left guo radiata--CTA neck (+) high grade stenosis*ARELY*DM2*HTN*CAD Plan: -Patient has had > 7 days of piperacillin-tazobactam to cover for aspiration pneumonia.-Antibiotic treatment transitioned back to ceftriaxone and metronidazole on 08/22/2023 for coverage of liver abscess.check ct scan of the abdomen and pelvis to follow on liver abscess, if negative will dc abx current antimicrobilas: day 7 of ceftriaxone 2 gms iv q 24 hrs (effective from 08/06/23, 23 days) at 0915 RPT #:[id number] OF REPORTPRProgress nlpr1402-93-02J99:14:00G.[id number] for patient iahjDOTHPQDRPFZVTU8512-91-33N71:24:46 [facility] 2023-08-29 07:49:00 [id number] QHuEH17so55mX5pCVy+ JoHxPzUDbVWCSAZZJ7178-32-20J22:49:00 [facility] ([facility])Cardiology Progress NoteREPORT#:[id number] REPORT STATUS: SignedREPORT INITIALIZATION DATE:08/29/23 TIME: 748 PATIENT: MISSY CANALES UNIT #: [id number]#: [id number] ROOM/BED: 6617-1DOB: [birth year] AGE: 68 SEX: M ATTEND: Raphael Ly AUTHOR: Esther BucknerPREPT SERVICE DT/TIME: 08/29/23 0749* ALL edits or amendments must be made on the electronic/computer document * SubjectivePatient reports:No: complaints. Nursing reports:No: complaints. Objective GeneralVS/I O:24 hour I O ending at 0700: 08/28 0700 04/ 1900 Intake Total 150.00 Output Total Balance 150.00 Intake, IV 150.00 Vital Signs: Date Time Temp Pulse Resp B/P B/P Pulse O2 O2 Flow FiO2 Mean Ox Delivery Rate 08/28 0718 35.9 89 16 119/70 86.3 98 Room air 04/03 0403 37.0 108 113/59 77.0 96 04/02 2339 36.8 97 105/64 77.5 98 04/02 1957 37.2 85 17 127/73 91.2 96 Room air 04/02 1654 36.7 98 16 112/71 84.3 97 Room air 04/02 1115 88 20 112/64 100 04/02 1100 88 20 116/68 100 04/02 1055 87 20 114/65 100 04/02 1050 36.6 89 22 119/68 100 04/02 1045 86 22 111/64 100 Room air 04/02 1040 85 25 117/69 100 04/02 1035 85 26 111/66 100 04/02 1030 85 26 108/63 100 04/02 1025 86 27 104/59 100 04/02 1022 Nasal 2 cannula 04/02 1022 36.3 86 24 104/59 100 Nasal 2 cannula 04/02 1020 86 24 99/58 100 Simple 10 mask 04/02 1002 86 20 113/66 100 Room air PATIENT WEIGHT: Weight (lb): 177Weight (oz): 14.61Weight (kg): 80.286 Medications:Active Meds + DC'd Last 24 HrsLidocaine HCl (XYLOCAINE) 0 .STK-MED ONE .ROUTE (DC) Propofol (DIPRIVAN 200MG/20ML INJECTION) 20 ML .STK-MED ONE IV (DC) Fentanyl Citrate (SUBLIMAZE) 100 MCG PACU Q10MIN PRN PRN IV (DC) Fentanyl Citrate (SUBLIMAZE) 50 MCG PACU Q10MIN PRN PRN IV (DC) Hydralazine HCl (APRESOLINE) 2 MG PACU Q10MIN PRN PRN IV (DC) Insulin Human Lispro (HUMALOG) 0 PACU ONCE PRN SUBQ (DC) Labetalol HCl (labetalol) 5 MG PACU Q10MIN PRN PRN IV (DC) Ondansetron HCl (ZOFRAN) 4 MG PACU ONCE PRN IV (DC) Sodium Chloride (SODIUM CHLORIDE 0.9%) 1,000 ML .Q24H IV (DC) Insulin Glargine (Semglee) 20 UNIT DAILY SUBQ Lansoprazole (PREVACID) 30 MG BID PO Insulin Human Lispro (HUMALOG) 3 UNIT AC SUBQ Ceftriaxone Sodium (ROCEPHIN) 2,000 MG Q24H IV Sodium Chloride (SODIUM CHLORIDE) 20 MLTamsulosin HCl (Flomax 0.4 mg) 0.4 MG PC BK PO Insulin Human Lispro (HUMALOG) 0 AC HS SUBQ Atorvastatin Calcium (LIPITOR) 40 MG BEDTIME PO Lactulose (LACTULOSE) 20 GM Q12HR PO Senna/Docusate Sodium (SENOKOT S) 1 TAB Q12HR PO Metoprolol Tartrate (LOPRESSOR) 50 MG Q8HR PO Clopidogrel Bisulfate (Plavix) 75 MG DAILY PO Allopurinol (ZYLOPRIM) 300 MG DAILY PO Aspirin (ASPIRIN) 81 MG DAILY PO Acetaminophen (TYLENOL) 650 MG Q6H PRN PRN PO Bisacodyl (DULCOLAX) 10 MG DAILY PRN PRN RECTAL Polyethylene Glycol (MIRALAX) 17 GM Q12H PO Dextrose/Water (DEXTROSE 10% IN WATER) 125 ML ASDIR PRN IV (CKD) Dextrose/Water (DEXTROSE 10% IN WATER) 250 ML ASDIR PRN IV (CKD) Glucagon (GLUCAGON) 1 MG ASDIR PRN IM Sodium Chloride (SODIUM CHLORIDE 0.9%) 250 ML BOLUS PRN IV Latanoprost (XALATAN 2.5 ML OPHTH SOLN) 1 DROP BEDTIME EACH EYE Timolol Maleate (TIMOPTIC 0.5% 5 ML OPHTH SOLN) 1 DROP BID EACH EYE Brimonidine Tartrate (Alphagan-P 0.2% 5 ML OPHTH SOLN) 1 DROP Q8HR EACH EYE Hydralazine HCl (APRESOLINE) 10 MG Q6H PRN PRN IV Ondansetron HCl (ZOFRAN) 4 MG Q4H PRN PRN IV Physical ExamGeneral appearance: chronically ill appearing, frail, awakeENT: normal noseNeck: non-tenderCardiovascular: CV assessment: ectopy, irregular rhythm, tachycardiaRespiratory: decreased breath sounds, no distressAbdomen: softGenitourinary: no urinary catheterUpper extremity: UE assessment: normal capillary refill, normal temperatureLower extremity: LE assessment: no edemaMusculoskeletal: decreased ROMNeuro/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: right hemiparesisSkin: dryPsychiatry: normal affect, normal mood ResultsFindings/Data:Laboratory Tests 08/27 1652 1052 Chemistry POC Glucose (70 - 110 MG/DL) 169 H 121 H 112 H Laboratory Tests 08/27 0846 Hematology WBC (4.5 - 11.0 x10 3/uL) 9.3 RBC (4.00 - 5.60 x10 6/uL) 2.69 L Hgb (12.5 - 16.9 g/dL) 8.6 L Hct (37.5 - 50.7 %) 27.3 L MCV (81.0 - 99.0 fL) 101.5 H MCH (27.0 - 33.0 pg) 32.0 MCHC (33.0 - 37.0 g/dL) 31.5 L RDW (11.5 - 14.5 %) 19.9 H Plt Count (150 - 400 x10 3/uL) 228 MPV (7.0 - 9.0 fL) 10.1 H Neut % (Auto) (56.0 - 77.0 %) 59.9 Lymph % (Auto) (14.0 - 32.0 %) 29.4 Evans % (Auto) (4.8 - 9.0 %) 7.0 Eos % (Auto) (0.3 - 3.7 %) 3.0 Baso % (Auto) (0.0 - 2.0 %) 0.4 Neut # (Auto) (2.0 - 7.6 x10 3/uL) 5.54 Lymph # (Auto) (1.0 - 3.8 x10 3/uL) 2.73 Evans # (Auto) (0.1 - 0.8 x10 3/uL) 0.65 Eos # (Auto) (0.0 - 0.2 x10 3/uL) 0.28 H Baso # (Auto) (0.0 - 0.2 x10 3/uL) 0.04 Abs Immat Gran (auto) (0.00 - 0.03 x10 3/uL) 0.03 Immature Gran % (0.0 - 2.0 %) 0.3 Nucleated RBC % (0 - 0 %) 0.2 H Nucleated RBCs # (Man) (0.0 - 0.1 x10 3/uL) 0.02 Results: labs reviewed, vital signs reviewed, rhythm personally rev'dTelemetry Interpretation:ST with PVCs and PACS Diagnosis, Assessment PlanPlan discussed with: patient, spouse/partner, collaborating MD, nurse Free Text DxA P NotesFree Text DxA P Notes:1. Coronary artery disease s/p recent PCI/TERESA to diagonal artery* Troponin trend is flat* Hx of CABG (2000)* s/p stent placement to diagonal artery on 07/02/23. Still need staged PCI to RCA. * Continue Plavix and aspirin - do not stop Plavix d/t risk of stent thrombosis* Echocardiogram preserved LVEF.* PPI: lansoprazole 30 mg BID 2. Elevated LFTs/acute cholecystitis/liver abscess* s/p cholecystostomy tube placement. * ID on board managing antibiotic* GI on board* s/p EGD: nonbleeding ulcer 3. AMS: MRI brain showed small subacute ischemia in the L coronary radiata * MRI of the brain unchanged 4. Tachycardia with PVCs and PACs* Continue metoprolol 50 mg every 8 hours. * Telemetry tachycardic with frequent PVCs and PACs - r/o afib* Continue telemetry monitoring - r/o afib 5. Anemia* hgb 6.3 up to 8.9->8.6->6.9->7->8.7->8.6* s/p 2 units PRBCs 08/20/23, 1 unit PRBC 08/26/23* On PPI* GI on board, s/p EGD showed nonbleeding ulcer Insurance denied SNF, is appealing. Medical decision making by Dr. Daniel. at 1341 at 1310 RPT #:[id number] OF REPORTPRProgress [id number]:49:00G.[id number] for patient dfruIDJLSQDYQANPGF5367-57-40P05:42:14 [facility] 2023-08-28 17:56:00 [id number]/JLnnF450JRgXuGv1 fF9a2wrLheUI/piRA0p 39gYUQA9bzsRp4Yb88579-38-17Q76:56:00 [facility] Progress NoteREPORT#:[id number] REPORT STATUS: SignedREPORT INITIALIZATION DATE:08/28/23 TIME: 1755 PATIENT: MISSY CANALES UNIT #: [id number]#: [id number] [address]DOB: [birth year] AGE: 68 SEX: M [facility]END[facility] AUTHOR: Glenny Mclaughlin FNPREPT SERVICE DT/TIME: 08/28/231755* ALL edits or amendments must be made on the electronic/computer document * Objective GeneralVS:Last Documented: Result Date Time Pulse Ox 97 08/27 1654 B/P 112/71 08/27 1654 B/P Mean 84.3 08/27 1654 O2 Delivery Room air 08/27 1654 Temp 36.7 08/27 1654 Pulse 98 08/27 1654 Resp 16 08/27 1654 O2 Flow Rate 2 08/27 1022 FiO2 40 08/07 0752 PATIENT WEIGHT: Weight (lb): 177Weight (oz): 14.61Weight (kg): 80.286 Diagnosis, Assessment PlanHospital course to date:Patient seen and examined. Spoke with Ms. Canales regarding goals of care including plan to possibly transfer to skill nursing facility versus palliative care versus hospice. She stated, "she needs additional time and does not want to have discussion right now" I will continue to support the patient and family during this difficult time. Thank you for allowing me to assist in the care of Mr. Missy Canales. Time spent - 1730 - 1800 - 30 minutes. 08-22-2023 Patient seen and examined. Spoke with Ms. Canales regarding goals of care including plan to possibly transfer to skill nursing facility versus palliative care versus hospice. She stated, "I will check out the senior care facilities today and need additional time". I will continue to support the patient and family during this difficult time. Thank you for allowing me to assist in the care of Mr. Missy Canales. Time spent - 1130 - 1200 - 30 minutes. 08-23-2023 Patient seen and examined. Spoke with Ms. Canales at bedside regarding goals of care including plan to possibly transfer to skill nursing facility versus palliative care versus hospice. She stated, "He is going to [facility] then to rehab". Explained the benefits of oupatient palliative care and discussed advance directives including living will and MPOA if he is oriented to make decisions. No changes at this time. I will continue to support the patient and family during this difficult time. Thank you for allowing me to assist in the care of Mr. Missy Canales. Time spent - 1730 - 1800 - 30 minutes. 08-27-2023 Patient seen and examined. Spoke with Ms. Canlaes regarding goals of care - she intends to have her spouse go to SNF. I will continue to support the patient and family during this difficult time. Thank you for allowing me to assist in the care of Mr. Missy Canales. Time spent - 1330 - 1400 - 30 minutes. 08-28-2023 Patient seen and examined. Spoke with Ms. Canales regarding goals of care - no changes in GOC plan to discharge to SNF. Case management assisting family with SNF. I will continue to support the patient and family during this difficult time. Thank you for allowing me to assist in the care of Mr. Missy Canales. Time spent - 1430 - 1500 - 30 minutes. Quality Current MedicationsCurrent medication review:I attest that the foregoing medication list in the medical record is true, accurate, and complete to the best of my knowledge. Advanced Care Plan 65 or OlderDiscussed with: patient, surrogate decis. maker at 0802 [facility] #:[id number] OF REPORTPRProgress [id number]:56:00G.[id number] for patient oskbKFGORZBYHAIGWS4685-58-42P78:03:46 [facility] 2023-08-28 14:05:00 [id number]/GT/SW7kXnDiZcpeOz GmDslNhgDGLViCJ7ltI RvijiPeYKvt4VBxbA9368-97-39A44:05:00 [facility] ([facility])Infectious Dis. Progress NoteREPORT#:[id number] REPORT STATUS: SignedREPORT INITIALIZATION DATE:08/28/23 TIME: 140 PATIENT: MISSY CANALES UNIT #: [id number]#: [id number] [address] [birth year] AGE: 68 SEX: M ATTEND: Raphael Ly [facility] AUTHOR: Kajal Nguyen MDREPT SERVICE DT/TIME: 08/28/23 1405* ALL edits or amendments must be made on the electronic/computer document * SubjectiveChief complaint:Follow-up on bacteremia, hepatic abscess, cholecystitis, aspiration pneumoniaHPI:Review of systems is somewhat limited due to patient's limited responses. Nonetheless, he appears comfortable. present at bedside. No major overnight events. Objective Physical ExamWound/incision: Location:cholecystostomy tube and RUQ drain in placeHead/Eyes: atraumatic, normocephalicCardiovascular: regular rate rhythm, no murmurRespiratory: clear to auscultation, symmetric expansionAbdomen: non-tender, soft, no distention, percutaneous drains in place in RUQExtremities: no cyanosis, no edemaNeuro/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 Canales is a 68-year-old male with PMH of HTN, DMII, CAD s/p stent who came to [facility] initially with N/V and abdominal pain. His pain was started 2 days prior to admission. His work up showed elevated LFTs, bilirubin, troponin. His US abdomen showed cholelithiasis with distended gallbladder including material at the gallbladder neck concerning for impacted stone. Patient started on empiric antibiotics and had cultures done with blood culture showing gram negative bacilli. Patient has been febrile and tachycardic while here. GI and general surgery are consulted. Patient was found to have acute cholecystitis with a liver abscess. He had a drain in the gallbladder and in the abscess placed. Blood culture eventually grew Citrobacter and so did the abscess. *Fever--Recurrent after improvement--UA via straight cath (-)--Covid (-)--Flu (-)--F/U CT A/P, decreased liver absces; (+) LLL infiltrates c/w PNA*PNA--CT LLL infiltrates c/w aspiration*Bacteremia--Citrobacter--Source: Biliary*Liver abscess--MRCP showed 4.6 x 3.6 x 3.0 thick walled cystic lesion/fluid collection liver abutting GB fossa--S/P IR drain 08/05, cx Citrobacter*Acute cholecystitis--S/P IR placed cholecystotomy tube ., cx Citrobacter*Acute stroke--MRI (+) subacute Left guo radiata--CTA neck (+) high grade stenosis*ARELY*DM2*HTN*CAD Plan: -Patient has had > 7 days of piperacillin-tazobactam to cover for aspiration pneumonia.-Antibiotic treatment transitioned back to ceftriaxone and metronidazole on 08/22/2023 for coverage of liver abscess.check ct scan of the abdomen and pelvis to follow on liver abscess, if negative will dc abx current antimicrobilas: day 6 of ceftriaxone 2 gms iv q 24 hrs (effective from 08/06/23, 22 days) at 0912 RPT #:[id number] OF REPORTPRProgress [id number]:05:00G.[id number] for patient zwwwKXECPBLFDZIZBV3992-12-73B92:12:56 [facility] 2023-08-28 13:32:00 [id number]/lmiBwuObQT8yL2 53m1yqlItDobIN40K8B n3/80c5DEm+d5tuqN5616-97-24W17:32:00 [facility] ([facility])Endocrinology Progress NoteREPORT#:[id number] REPORT STATUS: SignedREPORT INITIALIZATION DATE:08/28/23 TIME: 1331 PATIENT: MISSY CANALES UNIT #: [id number]#: [id number] [address] [birth year] AGE: 68 SEX: M ATTEND: Raphael Ly [facility] AUTHOR: Agus Duckworth APRNNPREPT SERVICE DT/TIME: 08/28/23 1200* ALL edits or amendments must be made on the electronic/computer document * SubjectiveChief complaint:f/u DM IIlabile diet Objective GeneralVS:Last Documented: Result Date Time Pulse Ox 100 08/27 1020 B/P 99/58 08/27 1020 O2 Delivery Simple mask 08/27 1020 O2 Flow Rate 10 08/27 1020 Pulse 86 04 1020 Resp 24 08/27 1020 B/P Mean 82.2 08/27 0722 Temp 98.4 08/27 0722 FiO2 40 08/07 0752 PATIENT WEIGHT: Weight (lb): 177Weight (oz): 14.61Weight (kg): 80.286 Medications:Active Meds + DC'd Last 24 HrsLidocaine HCl (XYLOCAINE) 0 .STK-MED ONE .ROUTE (DC) Propofol (DIPRIVAN 200MG/20ML INJECTION) 20 ML .STK-MED ONE IV (DC) Fentanyl Citrate (SUBLIMAZE) 100 MCG PACU Q10MIN PRN PRN IV (DC) Fentanyl Citrate (SUBLIMAZE) 50 MCG PACU Q10MIN PRN PRN IV (DC) Hydralazine HCl (APRESOLINE) 2 MG PACU Q10MIN PRN PRN IV (DC) Insulin Human Lispro (HUMALOG) 0 PACU ONCE PRN SUBQ (DC) Labetalol HCl (labetalol) 5 MG PACU Q10MIN PRN PRN IV (DC) Ondansetron HCl (ZOFRAN) 4 MG PACU ONCE PRN IV (DC) Sodium Chloride (SODIUM CHLORIDE 0.9%) 1,000 ML .Q24H IV (DC) Insulin Glargine (Semglee) 20 UNIT DAILY SUBQ Lansoprazole (PREVACID) 30 MG BID PO Insulin Human Lispro (HUMALOG) 3 UNIT AC SUBQ Metronidazole (FLAGYL) 500 MG Q12H PO (DC) Ceftriaxone Sodium (ROCEPHIN) 2,000 MG Q24H IV Sodium Chloride (SODIUM CHLORIDE) 20 MLTamsulosin HCl (Flomax 0.4 mg) 0.4 MG PC BK PO Insulin Human Lispro (HUMALOG) 0 AC HS SUBQ Atorvastatin Calcium (LIPITOR) 40 MG BEDTIME PO Lactulose (LACTULOSE) 20 GM Q12HR PO Senna/Docusate Sodium (SENOKOT S) 1 TAB Q12HR PO Metoprolol Tartrate (LOPRESSOR) 50 MG Q8HR PO Clopidogrel Bisulfate (Plavix) 75 MG DAILY PO Allopurinol (ZYLOPRIM) 300 MG DAILY PO Aspirin (ASPIRIN) 81 MG DAILY PO Acetaminophen (TYLENOL) 650 MG Q6H PRN PRN PO Bisacodyl (DULCOLAX) 10 MG DAILY PRN PRN RECTAL Polyethylene Glycol (MIRALAX) 17 GM Q12H PO Dextrose/Water (DEXTROSE 10% IN WATER) 125 ML ASDIR PRN IV (CKD) Dextrose/Water (DEXTROSE 10% IN WATER) 250 ML ASDIR PRN IV (CKD) Glucagon (GLUCAGON) 1 MG ASDIR PRN IM Sodium Chloride (SODIUM CHLORIDE 0.9%) 250 ML BOLUS PRN IV Latanoprost (XALATAN 2.5 ML OPHTH SOLN) 1 DROP BEDTIME EACH EYE Timolol Maleate (TIMOPTIC 0.5% 5 ML OPHTH SOLN) 1 DROP BID EACH EYE Brimonidine Tartrate (Alphagan-P 0.2% 5 ML OPHTH SOLN) 1 DROP Q8HR EACH EYE Hydralazine HCl (APRESOLINE) 10 MG Q6H PRN PRN IV Ondansetron HCl (ZOFRAN) 4 MG Q4H PRN PRN IV Dietitian nutrition assessmentThe data set between the solid lines has been imported from the dietitian's assessment. BMI Calculated: 27.7Nutrition related diagnosis: OverweightNutrition diagnosis details: BMI 25-29.9Nutrition problem: Inadequate oral intakeNutrition etiology: PT LETHARGIC /SWALLOWING Nutrition signs and symptoms: ENTERAL NUTRITION TO MEET , ENERGY NEEDS , (DIET ADVANCED TO PUREED AND, TOLERATED.)Nutrition prescription: 1. RECOMMEND PUREED CCD5 DIET. 2. PROVIDE GLUCERNA TID WITH MEALS. 3. MONITOR PO, WT, LABS, BM.Dietitian name: Jo Kaba, MS, RD, LDAssessment completed: 08/27/23 Physical ExamGeneral appearance: alert, awakeHEENT: atraumatic, clear cornea, normocephalicNeck: suppleCardiovascular: regular rate rhythmRespiratory: on oxygenAbdomen: softGenitourinary: not indicatedExtremities: warmNeuro/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: alertSkin: warmFindings/data:Laboratory Tests: 08/27 08/27 08/27 08/26 08/26 1052 0846 0720 1845 1641Chemistry POC Glucose (70 - 110 MG/DL) 112 H 119 H 177 H 119 HHematology WBC (4.5 - 11.0 x10 3/uL) 9.3 RBC (4.00 - 5.60 x10 6/uL) 2.69 L Hgb (12.5 - 16.9 g/dL) 8.6 L Hct (37.5 - 50.7 %) 27.3 L MCV (81.0 - 99.0 fL) 101.5 H MCH (27.0 - 33.0 pg) 32.0 MCHC (33.0 - 37.0 g/dL) 31.5 L RDW (11.5 - 14.5 %) 19.9 H Plt Count (150 - 400 x10 3/uL) 228 MPV (7.0 - 9.0 fL) 10.1 H Neut % (Auto) (56.0 - 77.0 %) 59.9 Lymph % (Auto) (14.0 - 32.0 %) 29.4 Evans % (Auto) (4.8 - 9.0 %) 7.0 Eos % (Auto) (0.3 - 3.7 %) 3.0 Baso % (Auto) (0.0 - 2.0 %) 0.4 Neut # (Auto) (2.0 - 7.6 x10 3/uL) 5.54 Lymph # (Auto) (1.0 - 3.8 x10 3/uL) 2.73 Evans # (Auto) (0.1 - 0.8 x10 3/uL) 0.65 Eos # (Auto) (0.0 - 0.2 x10 3/uL) 0.28 H Baso # (Auto) (0.0 - 0.2 x10 3/uL) 0.04 Abs Immat Gran (auto) (0.00 - 0.03 0.03x10 3/uL) Immature Gran % (0.0 - 2.0 %) 0.3 Nucleated RBC % (0 - 0 %) 0.2 H Nucleated RBCs # (Man) (0.0 - 0.1 0.02x10 3/uL) Laboratory Tests: 08/27 08/27 08/27 08/26 08/26 1052 0846 0720 1845 1641Chemistry POC Glucose (70 - 110 MG/DL) 112 H 119 H 177 H 119 HHematology WBC (4.5 - 11.0 x10 3/uL) 9.3 RBC (4.00 - 5.60 x10 6/uL) 2.69 L Hgb (12.5 - 16.9 g/dL) 8.6 L Hct (37.5 - 50.7 %) 27.3 L MCV (81.0 - 99.0 fL) 101.5 H MCH (27.0 - 33.0 pg) 32.0 MCHC (33.0 - 37.0 g/dL) 31.5 L RDW (11.5 - 14.5 %) 19.9 H Plt Count (150 - 400 x10 3/uL) 228 MPV (7.0 - 9.0 fL) 10.1 H Neut % (Auto) (56.0 - 77.0 %) 59.9 Lymph % (Auto) (14.0 - 32.0 %) 29.4 Evans % (Auto) (4.8 - 9.0 %) 7.0 Eos % (Auto) (0.3 - 3.7 %) 3.0 Baso % (Auto) (0.0 - 2.0 %) 0.4 Neut # (Auto) (2.0 - 7.6 x10 3/uL) 5.54 Lymph # (Auto) (1.0 - 3.8 x10 3/uL) 2.73 Evans # (Auto) (0.1 - 0.8 x10 3/uL) 0.65 Eos # (Auto) (0.0 - 0.2 x10 3/uL) 0.28 H Baso # (Auto) (0.0 - 0.2 x10 3/uL) 0.04 Abs Immat Gran (auto) (0.00 - 0.03 0.03x10 3/uL) Immature Gran % (0.0 - 2.0 %) 0.3 Nucleated RBC % (0 - 0 %) 0.2 H Nucleated RBCs # (Man) (0.0 - 0.1 0.02x10 3/uL) Diagnosis, Assessment PlanFree Text A P:1.DM STAvrZ0g 8.2adjust Lantus adjust Humalog monitor glucose diabetic diet DC Plan: Lantus, Humalog, follow at next available appointment. 2.Abnormal thyroid functions 08/06 TSH 0.07 FT4 1 recheck in a couple of days 3.Suspected ischemic strokeMRI brain without contrastEchocardiogramTelemetryneurology following 4.Coronary artery diseasePCI on July 03, 2023Echocardiogram preserved LVEFdual antiplateletscardiology following 5. Elevated LFTsGI following 6.MRCP with complex cystic fluid collectionpost drainage surgery following at 1104 at 8156 RPT #:[id number] OF REPORTPRProgress [id number]:32:00G.[id number] for patient lyazVNOLQDSQSSLMOO4886-33-31M35:04:41 [facility] 2023-08-28 11:49:00 [id number]+MSTvOstPW6WTbO7iCwaQ e7nFWehFqwTL7eDuf4i OQ4hjb68EyY8qp+U67725-99-48G88:49:00 [facility] ([facility])Hospitalist Progress NoteREPORT#:[id number] REPORT STATUS: SignedREPORT INITIALIZATION DATE:08/28/23 TIME: 114 PATIENT: MISSY CANALES UNIT #: [id number]#: [id number] [address] [birth year] AGE: 68 SEX: M ATTEND: Raphael Ly [facility] AUTHOR: Clyde Lares DOREPT SERVICE DT/TIME: 08/28/23 1149* ALL edits or amendments must be made on the electronic/computer document * SubjectiveChief complaint:Patient is resting comfortably in bed in no acute distress. is at the bedside Objective GeneralVS/I O:Vital Signs: Date Time Temp Pulse Resp B/P B/P Pulse O2 O2 Flow FiO2 Mean Ox Delivery Rate 08/27 1020 86 24 99/58 100 Simple 10 mask 08/27 1002 86 20 113/66 100 Room air 08/27 0722 98.4 86 15 108/70 82.2 98 Room air 08/27 0434 98.6 90 16 110/58 75.6 99 Room air 08/26 2332 92 96/59 71.2 08/26 2326 98.1 96 16 74/41 51.8 94 Room air 08/26 1847 98.4 104 17 101/65 77.0 97 Room air 08/26 1643 96.6 67 16 103/64 77.3 97 Room air 08/26 1204 68 14 146/79 101.4 98 Room air 24 hour I O ending at 0700: 08/27 0700 08/26 1900 Intake Total 150.00 Output Total 500 Balance -350.00 Intake, IV 30.00 Intake, Oral 120 Number 1 Bowel Movements Output, Urine 500 PATIENT WEIGHT: Weight (lb): 177Weight (oz): 14.61Weight (kg): 80.286 Medications:Active Meds + DC'd Last 24 HrsLidocaine HCl (XYLOCAINE) 0 .STK-MED ONE .ROUTE (DC) Propofol (DIPRIVAN 200MG/20ML INJECTION) 20 ML .STK-MED ONE IV (DC) Fentanyl Citrate (SUBLIMAZE) 100 MCG PACU Q10MIN PRN PRN IV (DC) Fentanyl Citrate (SUBLIMAZE) 50 MCG PACU Q10MIN PRN PRN IV (DC) Hydralazine HCl (APRESOLINE) 2 MG PACU Q10MIN PRN PRN IV (DC) Insulin Human Lispro (HUMALOG) 0 PACU ONCE PRN SUBQ (DC) Labetalol HCl (labetalol) 5 MG PACU Q10MIN PRN PRN IV (DC) Ondansetron HCl (ZOFRAN) 4 MG PACU ONCE PRN IV (DC) Sodium Chloride (SODIUM CHLORIDE 0.9%) 1,000 ML .Q24H IV (DC) Insulin Glargine (Semglee) 20 UNIT DAILY SUBQ Lansoprazole (PREVACID) 30 MG BID PO Insulin Human Lispro (HUMALOG) 3 UNIT AC SUBQ Metronidazole (FLAGYL) 500 MG Q12H PO (DC) Ceftriaxone Sodium (ROCEPHIN) 2,000 MG Q24H IV Sodium Chloride (SODIUM CHLORIDE) 20 MLTamsulosin HCl (Flomax 0.4 mg) 0.4 MG PC BK PO Insulin Human Lispro (HUMALOG) 0 AC HS SUBQ Atorvastatin Calcium (LIPITOR) 40 MG BEDTIME PO Lactulose (LACTULOSE) 20 GM Q12HR PO Senna/Docusate Sodium (SENOKOT S) 1 TAB Q12HR PO Metoprolol Tartrate (LOPRESSOR) 50 MG Q8HR PO Clopidogrel Bisulfate (Plavix) 75 MG DAILY PO Allopurinol (ZYLOPRIM) 300 MG DAILY PO Aspirin (ASPIRIN) 81 MG DAILY PO Acetaminophen (TYLENOL) 650 MG Q6H PRN PRN PO Bisacodyl (DULCOLAX) 10 MG DAILY PRN PRN RECTAL Polyethylene Glycol (MIRALAX) 17 GM Q12H PO Dextrose/Water (DEXTROSE 10% IN WATER) 125 ML ASDIR PRN IV (CKD) Dextrose/Water (DEXTROSE 10% IN WATER) 250 ML ASDIR PRN IV (CKD) Glucagon (GLUCAGON) 1 MG ASDIR PRN IM Sodium Chloride (SODIUM CHLORIDE 0.9%) 250 ML BOLUS PRN IV Latanoprost (XALATAN 2.5 ML OPHTH SOLN) 1 DROP BEDTIME EACH EYE Timolol Maleate (TIMOPTIC 0.5% 5 ML OPHTH SOLN) 1 DROP BID EACH EYE Brimonidine Tartrate (Alphagan-P 0.2% 5 ML OPHTH SOLN) 1 DROP Q8HR EACH EYE Hydralazine HCl (APRESOLINE) 10 MG Q6H PRN PRN IV Ondansetron HCl (ZOFRAN) 4 MG Q4H PRN PRN IV Physical ExamGeneral appearance: chronically ill appearing, sleeping comfortablyHead/Eyes: atraumatic, normocephalic, PERRLAENT: moist mucosal membranes, normal dentitionNeck: full range of motion, non-tender, no JVDCardiovascular: normal heart sounds, regular rate rhythmRespiratory: aerating well, symmetric expansion, no distressAbdomen: non-tender, normal bowel sounds, jtube present with minimal collection (liver abscess drains in place)Genitourinary: no bladder distention, no flank painExtremities: no clubbing, no cyanosisMusculoskeletal: no muscle spasmNeuro/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: abnormal speech, disoriented, alert ResultsFindings/Data:Laboratory Tests 08/27 08/27 08/26 08/26 08/26 1052 0720 1845 1641 1202 Chemistry POC Glucose (70 - 110 MG/DL) 112 H 119 H 177 H 119 H 135 H Laboratory Tests 08/27 0846 Hematology WBC (4.5 - 11.0 x10 3/uL) 9.3 RBC (4.00 - 5.60 x10 6/uL) 2.69 L Hgb (12.5 - 16.9 g/dL) 8.6 L Hct (37.5 - 50.7 %) 27.3 L MCV (81.0 - 99.0 fL) 101.5 H MCH (27.0 - 33.0 pg) 32.0 MCHC (33.0 - 37.0 g/dL) 31.5 L RDW (11.5 - 14.5 %) 19.9 H Plt Count (150 - 400 x10 3/uL) 228 MPV (7.0 - 9.0 fL) 10.1 H Neut % (Auto) (56.0 - 77.0 %) 59.9 Lymph % (Auto) (14.0 - 32.0 %) 29.4 Evans % (Auto) (4.8 - 9.0 %) 7.0 Eos % (Auto) (0.3 - 3.7 %) 3.0 Baso % (Auto) (0.0 - 2.0 %) 0.4 Neut # (Auto) (2.0 - 7.6 x10 3/uL) 5.54 Lymph # (Auto) (1.0 - 3.8 x10 3/uL) 2.73 Evans # (Auto) (0.1 - 0.8 x10 3/uL) 0.65 Eos # (Auto) (0.0 - 0.2 x10 3/uL) 0.28 H Baso # (Auto) (0.0 - 0.2 x10 3/uL) 0.04 Abs Immat Gran (auto) (0.00 - 0.03 x10 3/uL) 0.03 Immature Gran % (0.0 - 2.0 %) 0.3 Nucleated RBC % (0 - 0 %) 0.2 H Nucleated RBCs # (Man) (0.0 - 0.1 x10 3/uL) 0.02 Diagnosis, Assessment PlanProblem List/A P: 1. Acute cholangitis 2. Elevated LFTs 3. Liver abscess 4. Failure to thrive Free Text DxA P NotesFree text DxA P notes:68-year-old male admitted with abdominal pain, noted with NSTEMI, s/p stent placement to diagonal artery on 07/02/23. Still need staged PCI to RCA. Patient was noted with a liver abscess, seen by general surgery and GI, drain was placedby IR, has been tolerating antibiotics well.* Appreciated input from general surgery, GI, cardiology, and ID* Continue on broad-spectrum antibiotics for 1 more week* Hemoglobin is steady at 8.6* Awaiting EGD today* Encourage oral intake and therapy* is at the bedside and all concerns addressed* Patient is awaiting SNF placement at 1152 RPT #:[id number] OF REPORTPRProgress [id number]:49:00G.[id number] for patient [id number]:52:23 [facility] 2023-08-28 10:17:00 [id number] [id number] [id number]:17:00 [facility] ([facility])Gastroenterology Progress NoteREPORT#:[id number] REPORT STATUS: SignedREPORT INITIALIZATION DATE:08/28/23 TIME: 101 PATIENT: MISSY CANALES UNIT #: [id number]#: [id number] [address] [birth year] AGE: 68 SEX: M ATTEND: Raphael Ly MDADM AUTHOR: Lisa Cancino MDREPT SERVICE DT/TIME: 08/28/23 1017* ALL edits or amendments must be made on the electronic/computer document * SubjectiveChief complaint:Elevated LFtsHPI:68 year old man s/p cardiac stents 2 weeks ago who was sent to the hospital withelevated LFTs and possible acute cholecystitis. Pt had a stenet recently placed and was started on DAPT. Pt had labs showing elevated LFTs and was sent here forevaluation. Labs showed leukocytosis 15k. Elevated Tbili 3.7. Dbili 2.8. AST 79,ALT 105 and ALP 225. RUQ U/S showed possible cholecystitis and normal CBD of 4 mm in diatmeter. Pt denies pain. No dark urine or peyton-color stool 08/03; patient feels well. MRCP reviewed. No choledocholithiasis. Fluid collection at the liver could be related secondary to gallbladder perforation. LFTs and white count are down. 08/04: Plan for IR for cholecystostomy tube placement. LFts stable. WBC elevated.Was confused this am but improving. NO pain. No fevers. Added flagyl to his Abx regimen 08/05: NO new complaints. IR for abscess drain and cholecystostomy tube 08/06: Transferred overnight to ICU due to AMS. S/P IR with cholecystostomy tube and abscess drain 08/07: severely constipated. NGT in with feeds. drains in. More awake today and oriented. right sided weakness likely acute stroke. MRI brain reviewed- small stroke. KUB reviewed 08/08: Doing better according to . Sheldon removed. Still on feeds 08/09: Feeds at 20 ml/hr. Still no BM 08/10-Had BM last night. Denies n/v/abd pain 08/11-Patient dislodged DH. DH was replaced. +BM today 08/12: has been having BM during the weekend 08/13: No new events 08/14: eating and moving bowels. 08/15: doing well. 08/26: I was called again to evaluate pt. He has melena-like stool and dropped hisH/H. Pt is on DAPT 08/27: S/P EGD showing gastric ulcer in the incisura. flat pigmentation without high rebleeding stigmata. Objective Physical ExamHEENT: EOMICardiovascular: normal heart soundsRespiratory: clear to auscultationAbdomen: non-tenderExtremities: no edemaSkin: dry, normal temperature Diagnosis, Assessment PlanProblem List/A P: 1. Elevated LFTs Free Text A P:cholestatic pattern. CBD normal on RuQ U/S MRCP showed no evidence of choledocholithiasis.Large fluid collection within the liver could be secondary to gallbladder perforation.Recommend surgical evaluation again.Continue with antibiotics. Add flagyl s/p cholecystostomy tube and drainage of cystic fluid collection. Awaiting culture EGD showed gastric ulcer with flat pigmentPPI PO BID Will need repeat EGD in 6 weeks to confirm healing and rule out malignancy at 1018 RPT #:[id number] OF REPORTPRProgress [id number]:17:00G.[id number] for patient nqidAYVNNRGAMVBGTD8894-23-86P06:19:03 [facility] 2023-08-28 10:03:00 [id number]r C7Z7mi13aBWn/hELKZo Y/43Mj3vJDyXy27qk3014-33-83S03:03:977646-2500 [place] [id number] PATIENT NAME: MISSY CANALES ADMIT DATE: 08/03/23ACCOUNT NO: [id number] ROOM NO: [facility] AGE: 68 REPORT TYPE: ENDOSCOPY REPORT SEX: M ADMITTING PHYSICIAN:Raphael Ly MD ATTENDING PHYSICIAN:Raphael Ly MD Gastroenterology Patient Name: Missy Canales Procedure Date: 08/28/2023 10:03 AMMRN: [id number] of : 1955 Procedure: Upper GI endoscopyIndications: Acute post hemorrhagic anemia, MelenaProviders: Lona Ibarra MD: Colette Dubonequesting Provider: Medicines: Monitored Anesthesia CareProcedure: Pre-Anesthesia Assessment: - Prior to the procedure, a History and Physical was performed, and patient medications, allergies and sensitivities were reviewed. The patient's tolerance of previous anesthesia was reviewed. - The risks and benefits of the procedure and the sedation options and risks were discussed with the patient. All questions were answered and informed consent was obtained. - Patient identification and proposed procedure were verified prior to the procedure by the physician, the nurse, the career education teacher and the polysomnography technician. The procedure was verified in the procedure room. - Pre-procedure physical examination revealed no contraindications to sedation. - ASA Grade Assessment: III - A patient with severe systemic disease. - After reviewing the risks and benefits, the patient was deemed in satisfactory condition to undergo the procedure. - Monitored anesthesia care under the supervision of a MANAGER RECRUITMENT was determined to be medically necessary for this procedure based on review of the patient's medical history, medications, and prior anesthesia history. After obtaining informed consent, the endoscope was passed under direct vision. Throughout the procedure, the patient's blood pressure, pulse, and oxygen saturations were monitored continuously. The Endoscope was introduced through the mouth, and advanced to the second part of duodenum. The upper GI endoscopy was PATIENT NAME: MISSY CANALES accomplished without difficulty. The patient tolerated the procedure well. Findings: The examined esophagus was normal. One non-bleeding cratered gastric ulcer with a flat pigmented spot (Jose Class IIc) was found at the incisura. The lesion was 8 mm in largest dimension. The examined duodenum was normal. Complications: No immediate complications. Estimated Blood Loss: Estimated blood loss: none.Impression: - Normal esophagus. - Non-bleeding gastric ulcer with a flat pigmented spot (Jose Class IIc). - Normal examined duodenum. - No specimens collected.Recommendation: - Return patient to [facility] for [facility] care. - Resume previous diet. - Continue present medications. - Repeat upper endoscopy in 6 weeks to check healing. Procedure Code(s): --- Professional --- 64567, Esophagogastroduodenoscopy, flexible, transoral; diagnostic, including collection of specimen(s) by brushing or washing, when performed (separate procedure)Diagnosis Code(s): --- Professional --- K25.9, Gastric ulcer, unspecified as acute or chronic, without hemorrhage or perforation D62, Acute posthemorrhagic anemia K92.1, Melena (includes Hematochezia) CPT copyright 2020 [employer]. All rights reserved. The codes documented in this report are preliminary and upon annealing oven operator review may be revised to meet current compliance requirements. Lisa Cancino MD08/28/2023 10:20:29 AMNumber of Addenda: 0 Note Initiated On: 08/28/2023 10:03 AMProvation {[id number]}.pdf ProVation FT PDF at 1020 PATIENT NAME: MISSY CANALES [id number]:20:00G.[id number] for patient qjgjIHIHSHBWNKKOSW4889-39-40J23:21:14 [facility] 2023-08-28 08:37:00 [id number]vzu apcsnQZseYPiDJpz4jz uae2Bnix0UqLu7Gv96984-18-84Z15:37:00 [facility] ([facility])Cardiology Progress NoteREPORT#:[id number] REPORT STATUS: SignedREPORT INITIALIZATION DATE:08/28/23 TIME: 08 PATIENT: MISSY CANALES UNIT #: [id number]#: [id number] [address] [birth year] AGE: 68 SEX: M ATTEND: Raphael Ly MDADM AUTHOR: Esther BucknerCNPREPT SERVICE DT/TIME: 08/28/23 0837* ALL edits or amendments must be made on the electronic/computer document * SubjectiveComments:for EGD Objective GeneralVS/I O:24 hour I O ending at 0700: 08/27 0700 04/ 1900 Intake Total 150.00 Output Total 500 Balance -350.00 Intake, IV 30.00 Intake, Oral 120 Number 1 Bowel Movements Output, Urine 500 Vital Signs: Date Time Temp Pulse Resp B/P B/P Pulse O2 O2 Flow FiO2 Mean Ox Delivery Rate 08/27 0722 36.9 86 15 108/70 82.2 98 Room air 08/27 0434 37.0 90 16 110/58 75.6 99 Room air 08/26 2332 92 96/59 71.2 08/26 2326 36.7 96 16 74/41 51.8 94 Room air 08/26 1847 36.9 104 17 101/65 77.0 97 Room air 08/26 1643 35.9 67 16 103/64 77.3 97 Room air 08/26 1204 68 14 146/79 101.4 98 Room air PATIENT WEIGHT: Weight (lb): 177Weight (oz): 14.61Weight (kg): 80.286 Medications:Active Meds + DC'd Last 24 HrsFentanyl Citrate (SUBLIMAZE) 100 MCG PACU Q10MIN PRN PRN IV Fentanyl Citrate (SUBLIMAZE) 50 MCG PACU Q10MIN PRN PRN IV Hydralazine HCl (APRESOLINE) 2 MG PACU Q10MIN PRN PRN IV Insulin Human Lispro (HUMALOG) 0 PACU ONCE PRN SUBQ Labetalol HCl (labetalol) 5 MG PACU Q10MIN PRN PRN IV Ondansetron HCl (ZOFRAN) 4 MG PACU ONCE PRN IV Sodium Chloride (SODIUM CHLORIDE 0.9%) 1,000 ML .Q24H IV Insulin Glargine (Semglee) 20 UNIT DAILY SUBQ Lansoprazole (PREVACID) 30 MG BID PO Insulin Human Lispro (HUMALOG) 3 UNIT AC SUBQ Metronidazole (FLAGYL) 500 MG Q12H PO (DC) Ceftriaxone Sodium (ROCEPHIN) 2,000 MG Q24H IV Sodium Chloride (SODIUM CHLORIDE) 20 MLTamsulosin HCl (Flomax 0.4 mg) 0.4 MG PC BK PO Insulin Human Lispro (HUMALOG) 0 AC HS SUBQ Atorvastatin Calcium (LIPITOR) 40 MG BEDTIME PO Lactulose (LACTULOSE) 20 GM Q12HR PO Senna/Docusate Sodium (SENOKOT S) 1 TAB Q12HR PO Metoprolol Tartrate (LOPRESSOR) 50 MG Q8HR PO Clopidogrel Bisulfate (Plavix) 75 MG DAILY PO Allopurinol (ZYLOPRIM) 300 MG DAILY PO Aspirin (ASPIRIN) 81 MG DAILY PO Acetaminophen (TYLENOL) 650 MG Q6H PRN PRN PO Bisacodyl (DULCOLAX) 10 MG DAILY PRN PRN RECTAL Polyethylene Glycol (MIRALAX) 17 GM Q12H PO Dextrose/Water (DEXTROSE 10% IN WATER) 125 ML ASDIR PRN IV (CKD) Dextrose/Water (DEXTROSE 10% IN WATER) 250 ML ASDIR PRN IV (CKD) Glucagon (GLUCAGON) 1 MG ASDIR PRN IM Sodium Chloride (SODIUM CHLORIDE 0.9%) 250 ML BOLUS PRN IV Latanoprost (XALATAN 2.5 ML OPHTH SOLN) 1 DROP BEDTIME EACH EYE Timolol Maleate (TIMOPTIC 0.5% 5 ML OPHTH SOLN) 1 DROP BID EACH EYE Brimonidine Tartrate (Alphagan-P 0.2% 5 ML OPHTH SOLN) 1 DROP Q8HR EACH EYE Hydralazine HCl (APRESOLINE) 10 MG Q6H PRN PRN IV Ondansetron HCl (ZOFRAN) 4 MG Q4H PRN PRN IV Physical ExamGeneral appearance: chronically ill appearing, frailENT: normal noseNeck: non-tenderCardiovascular: CV assessment: ectopy, irregular rhythm, tachycardiaRespiratory: decreased breath sounds, on oxygen, no distressAbdomen: softGenitourinary: no urinary catheterUpper extremity: UE assessment: normal capillary refill, normal temperatureLower extremity: LE assessment: no edemaMusculoskeletal: decreased ROMNeuro/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: right hemiparesisSkin: dryPsychiatry: normal affect, normal mood ResultsFindings/Data:Laboratory Tests 08/27 08/26 08/26 08/26 0720 1845 1641 1202 Chemistry POC Glucose (70 - 110 MG/DL) 119 H 177 H 119 H 135 H Results: labs reviewed, vital signs reviewed, rhythm personally rev'dTelemetry Interpretation:ST with PVCs and PACs Diagnosis, Assessment PlanPlan discussed with: spouse/partner, collaborating MD Free Text DxA P NotesFree Text DxA P Notes:1. Coronary artery disease s/p recent PCI/TERESA to diagonal artery* Troponin trend is flat* Hx of CABG (2000)* s/p stent placement to diagonal artery on 07/02/23. Still need staged PCI to RCA. * Continue Plavix and aspirin - do not stop Plavix d/t risk of stent thrombosis* Echocardiogram preserved LVEF.* PPI: lansoprazole 30 mg BID 2. Elevated LFTs/acute cholecystitis/liver abscess* s/p cholecystostomy tube placement. * GI on board* ID on board managing antibiotic* GI planning for EGD today 3. AMS: MRI brain showed small subacute ischemia in the L coronary radiata * MRI of the brain unchanged 4. Tachycardia with PVCs and PACs* Continue metoprolol 50 mg every 8 hours. * Telemetry tachycardic with frequent PVCs and PACs - r/o afib* Continue telemetry monitoring - r/o afib 5. Anemia* hgb 6.3 up to 8.9->8.6->6.9->7->8.7* s/p 2 units PRBCs 08/20/23, 1 unit PRBC 08/26/23* On PPI* GI on board Patient is waiting for placement. Medical decision making by Dr. Daniel. at 1611 at 1312 RPT #:[id number] OF REPORTPRProgress bnud7585-40-76G70:37:00G.[id number] for patient tfvzANLYMNBTWXWRHQ8093-07-71L65:12:22 [facility] 2023-08-27 17:28:00 [id number]O3B SCzVjcWpOdZt84P6ytd cMpzavZkfK1sAzA214221-34-85K31:28:00 [facility] Progress NoteREPORT#:[id number] REPORT STATUS: SignedREPORT INITIALIZATION DATE:08/27/23 TIME: 1728 PATIENT: MISSY CANALES UNIT #: [id number]#: [id number] [address] [birth year] AGE: 68 SEX: M ATTEND: Raphael Ly MDADM AUTHOR: Glenny Mclaughlin FNPREPT SERVICE DT/TIME: 08/27/23 1728* ALL edits or amendments must be made on the electronic/computer document * Objective GeneralVS:Last Documented: Result Date Time Pulse Ox 97 08/26 1643 B/P 103/64 08/26 1643 B/P Mean 77.3 08/26 1643 O2 Delivery Room air 08/26 164 Temp 35.9 08/26 1643 Pulse 67 08/26 1643 Resp 16 08/26 1643 O2 Flow Rate 3 08/21 0434 FiO2 40 08/07 0752 PATIENT WEIGHT: Weight (lb): 177Weight (oz): 14.61Weight (kg): 80.286 Diagnosis, Assessment PlanHospital course to date:Patient seen and examined. Spoke with Ms. Canales regarding goals of care including plan to possibly transfer to skill nursing facility versus palliative care versus hospice. She stated, "she needs additional time and does not want to have discussion right now" I will continue to support the patient and family during this difficult time. Thank you for allowing me to assist in the care of Mr. Missy Canales. Time spent - 1730 - 1800 - 30 minutes. 08-22-2023 Patient seen and examined. Spoke with Ms. Canales regarding goals of care including plan to possibly transfer to skill nursing facility versus palliative care versus hospice. She stated, "I will check out the senior care facilities today and need additional time". I will continue to support the patient and family during this difficult time. Thank you for allowing me to assist in the care of Mr. Missy Canales. Time spent - 1130 - 1200 - 30 minutes. 08-23-2023 Patient seen and examined. Spoke with Ms. Canales at bedside regarding goals of care including plan to possibly transfer to skill nursing facility versus palliative care versus hospice. She stated, "He is going to [facility] then to rehab". Explained the benefits of oupatient palliative care and discussed advance directives including living will and MPOA if he is oriented to make decisions. No changes at this time. I will continue to support the patient and family during this difficult time. Thank you for allowing me to assist in the care of Mr. Missy Canales. Time spent - 1730 - 1800 - 30 minutes. 08-27-2023 Patient seen and examined. Spoke with Ms. Canales regarding goals of care - she intends to have her spouse go to SNF. I will continue to support the patient and family during this difficult time. Thank you for allowing me to assist in the care of Mr. Missy Canales. Time spent - 1330 - 1400 - 30 minutes. Quality Current MedicationsCurrent medication review:I attest that the foregoing medication list in the medical record is true, accurate, and complete to the best of my knowledge. Advanced Care Plan 65 or OlderDiscussed with: patient, surrogate decis. maker at 1757 RPT #:[id number] OF REPORTPRProgress ovyh2216-39-65F98:28:00G.[id number] for patient hbriTABXEUSEWFNHSA2897-18-18J15:58:32 [facility] 2023-08-27 14:21:00 [id number]+/98ha/enHBWf2n9gGEH las0zsP+bMKlL1kiFN/ rK76j0vl/PlQvmY207443-32-02G15:21:00 [facility] ([facility])Infectious Dis. Progress NoteREPORT#:[id number] REPORT STATUS: SignedREPORT INITIALIZATION DATE:08/27/23 TIME: 1420 PATIENT: MISSY CANALES UNIT #: [id number]#: [id number] [address] [birth year] AGE: 68 SEX: M ATTEND: Raphael Ly AUTHOR: Kajal Nguyen MDREPT SERVICE DT/TIME: 08/27/23 142* ALL edits or amendments must be made on the electronic/computer document * SubjectiveChief complaint:Follow-up on bacteremia, hepatic abscess, cholecystitis, aspiration pneumoniaHPI:Review of systems is somewhat limited due to patient's limited responses. Nonetheless, he appears comfortable. present at bedside. No major overnight events. Objective Physical ExamWound/incision: Location:cholecystostomy tube and RUQ drain in placeHead/Eyes: atraumatic, normocephalicCardiovascular: regular rate rhythm, no murmurRespiratory: clear to auscultation, symmetric expansionAbdomen: non-tender, soft, no distention, percutaneous drains in place in RUQExtremities: no cyanosis, no edemaNeuro/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 Canales is a 68-year-old male with PMH of HTN, DMII, CAD s/p stent who came to [facility] initially with N/V and abdominal pain. His pain was started 2 days prior to admission. His work up showed elevated LFTs, bilirubin, troponin. His US abdomen showed cholelithiasis with distended gallbladder including material at the gallbladder neck concerning for impacted stone. Patient started on empiric antibiotics and had cultures done with blood culture showing gram negative bacilli. Patient has been febrile and tachycardic while here. GI and general surgery are consulted. Patient was found to have acute cholecystitis with a liver abscess. He had a drain in the gallbladder and in the abscess placed. Blood culture eventually grew Citrobacter and so did the abscess. *Fever--Recurrent after improvement--UA via straight cath (-)--Covid (-)--Flu (-)--F/U CT A/P, decreased liver absces; (+) LLL infiltrates c/w PNA*PNA--CT LLL infiltrates c/w aspiration*Bacteremia--Citrobacter--Source: Biliary*Liver abscess--MRCP showed 4.6 x 3.6 x 3.0 thick walled cystic lesion/fluid collection liver abutting GB fossa--S/P IR drain 08/05, cx Citrobacter*Acute cholecystitis--S/P IR placed cholecystotomy tube ., cx Citrobacter*Acute stroke--MRI (+) subacute Left guo radiata--CTA neck (+) high grade stenosis*ARELY*DM2*HTN*CAD Plan: -Patient has had > 7 days of piperacillin-tazobactam to cover for aspiration pneumonia.-Antibiotic treatment transitioned back to ceftriaxone and metronidazole on 08/22/2023 for coverage of liver abscess.check ct scan of the abdomen and pelvis to follow on liver abscess, if negative will dc abx dc flagyl current antimicrobilas: day 6 of ceftriaxone 2 gms iv q 24 hrs (effective from 08/06/23, 21 days) day 6 of flagyl 500 mg po q 12 hrs ( effective from 08/06/23, 21 days at 1933 RPT #:[id number] OF REPORTPRProgress mtku6593-70-97I33:21:00G.[id number] for patient poqlSCPVVTEQXZEESW2532-17-96I71:34:23 [facility] 2023-08-27 13:30:00 [id number]+rPYjL7o25V0mmGOr IkmmcOFhxNW6liEpEGl 6dgB4mnLQCio9h0Lu2292-79-26P35:30:00 [facility])Endocrinology Progress NoteREPORT#:[id number] REPORT STATUS: SignedREPORT INITIALIZATION DATE:08/27/23 TIME: 1330 PATIENT: MISSY CANALES UNIT #: [id number]#: [id number] ROOM/BED: 6617[address]1DOB: [birth year] AGE: 68 SEX: M ATTEND: Raphael Ly MDADM AUTHOR: Agus Duckworth APRNNPREPT SERVICE DT/TIME: 08/27/23 1150* ALL edits or amendments must be made on the electronic/computer document * SubjectiveChief complaint:f/u DM IItolerating diet Objective GeneralVS:Last Documented: Result Date Time Pulse Ox 98 08/26 1204 B/P 146/79 08/26 1204 B/P Mean 101.4 08/26 1204 O2 Delivery Room air 08/26 1204 Pulse 68 08/26 1204 Resp 14 08/26 1204 Temp 98.2 08/26 0724 O2 Flow Rate 3 08/21 0434 FiO2 40 08/07 0752 PATIENT WEIGHT: Weight (lb): 177Weight (oz): 14.61Weight (kg): 80.286 Medications:Active Meds + DC'd Last 24 HrsInsulin Glargine (Semglee) 20 UNIT DAILY SUBQ Lansoprazole (PREVACID) 30 MG BID PO Insulin Human Lispro (HUMALOG) 3 UNIT AC SUBQ Metronidazole (FLAGYL) 500 MG Q12H PO Ceftriaxone Sodium (ROCEPHIN) 2,000 MG Q24H IV Sodium Chloride (SODIUM CHLORIDE) 20 MLTamsulosin HCl (Flomax 0.4 mg) 0.4 MG PC BK PO Insulin Human Lispro (HUMALOG) 0 AC HS SUBQ Atorvastatin Calcium (LIPITOR) 40 MG BEDTIME PO Lactulose (LACTULOSE) 20 GM Q12HR PO Senna/Docusate Sodium (SENOKOT S) 1 TAB Q12HR PO Metoprolol Tartrate (LOPRESSOR) 50 MG Q8HR PO Clopidogrel Bisulfate (Plavix) 75 MG DAILY PO Allopurinol (ZYLOPRIM) 300 MG DAILY PO Aspirin (ASPIRIN) 81 MG DAILY PO Acetaminophen (TYLENOL) 650 MG Q6H PRN PRN PO Bisacodyl (DULCOLAX) 10 MG DAILY PRN PRN RECTAL Polyethylene Glycol (MIRALAX) 17 GM Q12H PO Dextrose/Water (DEXTROSE 10% IN WATER) 125 ML ASDIR PRN IV (CKD) Dextrose/Water (DEXTROSE 10% IN WATER) 250 ML ASDIR PRN IV (CKD) Glucagon (GLUCAGON) 1 MG ASDIR PRN IM Sodium Chloride (SODIUM CHLORIDE 0.9%) 250 ML BOLUS PRN IV Latanoprost (XALATAN 2.5 ML OPHTH SOLN) 1 DROP BEDTIME EACH EYE Timolol Maleate (TIMOPTIC 0.5% 5 ML OPHTH SOLN) 1 DROP BID EACH EYE Brimonidine Tartrate (Alphagan-P 0.2% 5 ML OPHTH SOLN) 1 DROP Q8HR EACH EYE Hydralazine HCl (APRESOLINE) 10 MG Q6H PRN PRN IV Ondansetron HCl (ZOFRAN) 4 MG Q4H PRN PRN IV Dietitian nutrition assessmentThe data set between the solid lines has been imported from the dietitian's assessment. BMI Calculated: 27.7Nutrition related diagnosis: OverweightNutrition diagnosis details: BMI 25-29.9Nutrition problem: Inadequate oral intakeNutrition etiology: PT LETHARGIC /SWALLOWING Nutrition signs and symptoms: ENTERAL NUTRITION TO MEET , ENERGY NEEDS , (DIET ADVANCED TO PUREED AND, TOLERATED.)Nutrition prescription: 1. RECOMMEND PUREED CCD5 DIET. 2. PROVIDE GLUCERNA TID WITH MEALS. 3. MONITOR PO, WT, LABS, BM.Dietitian name: Lucía Torres, DIETAssessment completed: 08/20/23 Physical ExamGeneral appearance: alert, awakeHEENT: atraumatic, clear cornea, normocephalicNeck: suppleCardiovascular: regular rate rhythmRespiratory: on oxygenAbdomen: softGenitourinary: not indicatedExtremities: warmNeuro/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: alertSkin: warmFindings/data:Laboratory Tests: 08/26 08/26 08/26 08/25 08/25 1202 0722 0541 1845 1629Chemistry Sodium (134 - 147 mEq/L) 149 H Potassium (3.4 - 5.0 mEq/L) 3.2 L Chloride (100 - 108 mEq/L) 120 H Carbon Dioxide (21 - 33 mEq/l) 24 Anion Gap (0 - 20) 9 BUN (7 - 25 mg/dL) 15 Creatinine (0.6 - 1.3 mg/dL) 0.9 Glomerular Filtr Rate (70 - 80) 91.9 H Glucose (77 - 141 mg/dL) 112 POC Glucose (70 - 110 MG/DL) 135 H 111 H 151 H 167 H Calcium (8.0 - 10.5 mg/dL) 8.3 Total Bilirubin (0.0 - 1.0 mg/dL) 0.50 AST (8 - 34 IUnit/L) 42 H ALT (10 - 49 IUnit/L) 26 Total Alk Phosphatase (20 - 125 IUnit/L) 83 Total Protein (6.4 - 8.2 g/dL) 7.0 Albumin (3.4 - 5.0 g/dL) 1.90 LHematology WBC (4.5 - 11.0 x10 3/uL) 10.3 RBC (4.00 - 5.60 x10 6/uL) 2.74 L Hgb (12.5 - 16.9 g/dL) 8.7 L Hct (37.5 - 50.7 %) 27.2 L MCV (81.0 - 99.0 fL) 99.3 H MCH (27.0 - 33.0 pg) 31.8 MCHC (33.0 - 37.0 g/dL) 32.0 L RDW (11.5 - 14.5 %) 19.3 H Plt Count (150 - 400 x10 3/uL) 263 MPV (7.0 - 9.0 fL) 9.7 H Neut % (Auto) (56.0 - 77.0 %) 62.9 Lymph % (Auto) (14.0 - 32.0 %) 26.2 Evans % (Auto) (4.8 - 9.0 %) 8.3 Eos % (Auto) (0.3 - 3.7 %) 1.9 Baso % (Auto) (0.0 - 2.0 %) 0.3 Neut # (Auto) (2.0 - 7.6 x10 3/uL) 6.48 Lymph # (Auto) (1.0 - 3.8 x10 3/uL) 2.70 Evans # (Auto) (0.1 - 0.8 x10 3/uL) 0.85 H Eos # (Auto) (0.0 - 0.2 x10 3/uL) 0.20 Baso # (Auto) (0.0 - 0.2 x10 3/uL) 0.03 Abs Immat Gran (auto) (0.00 - 0.03 0.04 Hx10 3/uL) Immature Gran % (0.0 - 2.0 %) 0.4 Nucleated RBC % (0 - 0 %) 0.4 H Nucleated RBCs # (Man) (0.0 - 0.1 0.04x10 3/uL) Laboratory Tests: 08/26 08/26 08/26 08/25 08/25 1202 0722 0541 4964 1629Chemistry Sodium (134 - 147 mEq/L) 149 H Potassium (3.4 - 5.0 mEq/L) 3.2 L Chloride (100 - 108 mEq/L) 120 H Carbon Dioxide (21 - 33 mEq/l) 24 Anion Gap (0 - 20) 9 BUN (7 - 25 mg/dL) 15 Creatinine (0.6 - 1.3 mg/dL) 0.9 Glomerular Filtr Rate (70 - 80) 91.9 H Glucose (77 - 141 mg/dL) 112 POC Glucose (70 - 110 MG/DL) 135 H 111 H 151 H 167 H Calcium (8.0 - 10.5 mg/dL) 8.3 Total Bilirubin (0.0 - 1.0 mg/dL) 0.50 AST (8 - 34 IUnit/L) 42 H ALT (10 - 49 IUnit/L) 26 Total Alk Phosphatase (20 - 125 IUnit/L) 83 Total Protein (6.4 - 8.2 g/dL) 7.0 Albumin (3.4 - 5.0 g/dL) 1.90 LHematology WBC (4.5 - 11.0 x10 3/uL) 10.3 RBC (4.00 - 5.60 x10 6/uL) 2.74 L Hgb (12.5 - 16.9 g/dL) 8.7 L Hct (37.5 - 50.7 %) 27.2 L MCV (81.0 - 99.0 fL) 99.3 H MCH (27.0 - 33.0 pg) 31.8 MCHC (33.0 - 37.0 g/dL) 32.0 L RDW (11.5 - 14.5 %) 19.3 H Plt Count (150 - 400 x10 3/uL) 263 MPV (7.0 - 9.0 fL) 9.7 H Neut % (Auto) (56.0 - 77.0 %) 62.9 Lymph % (Auto) (14.0 - 32.0 %) 26.2 Evans % (Auto) (4.8 - 9.0 %) 8.3 Eos % (Auto) (0.3 - 3.7 %) 1.9 Baso % (Auto) (0.0 - 2.0 %) 0.3 Neut # (Auto) (2.0 - 7.6 x10 3/uL) 6.48 Lymph # (Auto) (1.0 - 3.8 x10 3/uL) 2.70 Evans # (Auto) (0.1 - 0.8 x10 3/uL) 0.85 H Eos # (Auto) (0.0 - 0.2 x10 3/uL) 0.20 Baso # (Auto) (0.0 - 0.2 x10 3/uL) 0.03 Abs Immat Gran (auto) (0.00 - 0.03 0.04 Hx10 3/uL) Immature Gran % (0.0 - 2.0 %) 0.4 Nucleated RBC % (0 - 0 %) 0.4 H Nucleated RBCs # (Man) (0.0 - 0.1 0.04x10 3/uL) Diagnosis, Assessment PlanFree Text A P:1.DM RIYpxC3y 8.2adjust Lantus adjust Humalog monitor glucose diabetic diet DC Plan: Lantus, Humalog, follow at next available appointment. 2.Abnormal thyroid functions 08/06 TSH 0.07 FT4 1 recheck in a couple of days 3.Suspected ischemic strokeMRI brain without contrastEchocardiogramTelemetryneurology following 4.Coronary artery diseasePCI on July 03, 2023Echocardiogram preserved LVEFdual antiplateletscardiology following 5. Elevated LFTsGI following 6.MRCP with complex cystic fluid collectionpost drainage surgery following at 1404 at 1533 RPT #:[id number] OF REPORTPRProgress ttjf1698-12-81I11:30:00G.[id number] for patient zshnHGSRDCIFADDRRD9188-24-44Q10:04:41 [facility] 2023-08-27 13:08:00 [id number]/IEFawn /[id number] 4+4sfz3H1avki9PCS0737-72-65G08:08:00 [facility] ([facility])Hospitalist Progress NoteREPORT#:[id number] REPORT STATUS: SignedREPORT INITIALIZATION DATE:08/27/23 TIME: 1308 PATIENT: MISSY CANALES UNIT #: [id number]#: [id number] [address] [birth year] AGE: 68 SEX: M ATTEND: Raphael Ly MDADM AUTHOR: Clyde Lares DOREPT SERVICE DT/TIME: 08/27/23 1308* ALL edits or amendments must be made on the electronic/computer document * SubjectiveChief complaint:Patient is resting comfortably in bed this morning in no acute distress. is at the bedside Objective GeneralVS/I O:Vital Signs: Date Time Temp Pulse Resp B/P B/P Pulse O2 O2 Flow FiO2 Mean Ox Delivery Rate 08/26 1204 68 14 146/79 101.4 98 Room air 08/26 0724 98.2 98 16 116/69 84.3 98 Room air 08/26 0558 98.6 114 98/66 76.5 100 08/26 0324 98.4 99 18 100/69 79.6 100 Room air 08/26 0042 99.1 97 114/74 87.5 100 08/25 2311 98.8 105 111/73 85.5 98 08/25 2246 99.0 108 18 135/85 102.1 98 Room air 08/25 2220 99.0 110 18 118/76 90.0 97 Room air 08/25 2206 99.3 112 18 127/75 92.1 98 Room air 08/25 2144 99.3 113 18 128/80 96.2 98 Room air 08/25 2040 99.9 08/25 2036 109 20 125/80 95.1 96 Room air 08/25 1629 99.3 97 16 102/60 73.6 99 Room air 24 hour I O ending at 0700: 08/26 0700 08/25 1900 Intake Total 395.00 Output Total 500 500 Balance -105.00 -500 Intake, IV 70.00 Intake, Oral 25 Intake, 300 Packed Cells Number 1 Bowel Movements Output, 100 Drainage Output, Urine 500 400 PATIENT WEIGHT: Weight (lb): 177Weight (oz): 14.61Weight (kg): 80.286 Medications:Active Meds + DC'd Last 24 HrsInsulin Glargine (Semglee) 20 UNIT DAILY SUBQ Lansoprazole (PREVACID) 30 MG BID PO Insulin Human Lispro (HUMALOG) 3 UNIT AC SUBQ Metronidazole (FLAGYL) 500 MG Q12H PO Ceftriaxone Sodium (ROCEPHIN) 2,000 MG Q24H IV Sodium Chloride (SODIUM CHLORIDE) 20 MLTamsulosin HCl (Flomax 0.4 mg) 0.4 MG PC BK PO Insulin Human Lispro (HUMALOG) 0 AC HS SUBQ Atorvastatin Calcium (LIPITOR) 40 MG BEDTIME PO Lactulose (LACTULOSE) 20 GM Q12HR PO Senna/Docusate Sodium (SENOKOT S) 1 TAB Q12HR PO Metoprolol Tartrate (LOPRESSOR) 50 MG Q8HR PO Clopidogrel Bisulfate (Plavix) 75 MG DAILY PO Allopurinol (ZYLOPRIM) 300 MG DAILY PO Aspirin (ASPIRIN) 81 MG DAILY PO Acetaminophen (TYLENOL) 650 MG Q6H PRN PRN PO Bisacodyl (DULCOLAX) 10 MG DAILY PRN PRN RECTAL Polyethylene Glycol (MIRALAX) 17 GM Q12H PO Dextrose/Water (DEXTROSE 10% IN WATER) 125 ML ASDIR PRN IV (CKD) Dextrose/Water (DEXTROSE 10% IN WATER) 250 ML ASDIR PRN IV (CKD) Glucagon (GLUCAGON) 1 MG ASDIR PRN IM Sodium Chloride (SODIUM CHLORIDE 0.9%) 250 ML BOLUS PRN IV Latanoprost (XALATAN 2.5 ML OPHTH SOLN) 1 DROP BEDTIME EACH EYE Timolol Maleate (TIMOPTIC 0.5% 5 ML OPHTH SOLN) 1 DROP BID EACH EYE Brimonidine Tartrate (Alphagan-P 0.2% 5 ML OPHTH SOLN) 1 DROP Q8HR EACH EYE Hydralazine HCl (APRESOLINE) 10 MG Q6H PRN PRN IV Ondansetron HCl (ZOFRAN) 4 MG Q4H PRN PRN IV Physical ExamGeneral appearance: frail, sleeping comfortably, awakeHead/Eyes: atraumatic, normocephalic, PERRLAENT: moist mucosal membranes, normal dentitionNeck: full range of motion, non-tender, no JVDCardiovascular: normal heart sounds, regular rate rhythmRespiratory: aerating well, symmetric expansion, no distressAbdomen: non-tender, normal bowel sounds, jtube present with minimal collection (liver abscess drains in place)Genitourinary: no bladder distention, no flank painExtremities: no clubbing, no cyanosisMusculoskeletal: no muscle spasmNeuro/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: abnormal speech, disoriented, alert ResultsFindings/Data:Laboratory Tests 08/26 08/26 08/26 08/25 08/25 1202 0722 0541 1845 1629 Chemistry Sodium (134 - 147 mEq/L) 149 H Potassium (3.4 - 5.0 mEq/L) 3.2 L Chloride (100 - 108 mEq/L) 120 H Carbon Dioxide (21 - 33 mEq/l) 24 Anion Gap (0 - 20) 9 BUN (7 - 25 mg/dL) 15 Creatinine (0.6 - 1.3 mg/dL) 0.9 Glomerular Filtr Rate (70 - 80) 91.9 H Glucose (77 - 141 mg/dL) 112 POC Glucose (70 - 110 MG/DL) 135 H 111 H 151 H 167 H Calcium (8.0 - 10.5 mg/dL) 8.3 Total Bilirubin (0.0 - 1.0 mg/dL) 0.50 AST (8 - 34 IUnit/L) 42 H ALT (10 - 49 IUnit/L) 26 Total Alk Phosphatase (20 - 125 IUnit/L) 83 Total Protein (6.4 - 8.2 g/dL) 7.0 Albumin (3.4 - 5.0 g/dL) 1.90 L Laboratory Tests 08/26 0541 Hematology WBC (4.5 - 11.0 x10 3/uL) 10.3 RBC (4.00 - 5.60 x10 6/uL) 2.74 L Hgb (12.5 - 16.9 g/dL) 8.7 L Hct (37.5 - 50.7 %) 27.2 L MCV (81.0 - 99.0 fL) 99.3 H MCH (27.0 - 33.0 pg) 31.8 MCHC (33.0 - 37.0 g/dL) 32.0 L RDW (11.5 - 14.5 %) 19.3 H Plt Count (150 - 400 x10 3/uL) 263 MPV (7.0 - 9.0 fL) 9.7 H Neut % (Auto) (56.0 - 77.0 %) 62.9 Lymph % (Auto) (14.0 - 32.0 %) 26.2 Evans % (Auto) (4.8 - 9.0 %) 8.3 Eos % (Auto) (0.3 - 3.7 %) 1.9 Baso % (Auto) (0.0 - 2.0 %) 0.3 Neut # (Auto) (2.0 - 7.6 x10 3/uL) 6.48 Lymph # (Auto) (1.0 - 3.8 x10 3/uL) 2.70 Evans # (Auto) (0.1 - 0.8 x10 3/uL) 0.85 H Eos # (Auto) (0.0 - 0.2 x10 3/uL) 0.20 Baso # (Auto) (0.0 - 0.2 x10 3/uL) 0.03 Abs Immat Gran (auto) (0.00 - 0.03 x10 3/uL) 0.04 H Immature Gran % (0.0 - 2.0 %) 0.4 Nucleated RBC % (0 - 0 %) 0.4 H Nucleated RBCs # (Man) (0.0 - 0.1 x10 3/uL) 0.04 Diagnosis, Assessment PlanProblem List/A P: 1. Acute cholangitis 2. Elevated LFTs 3. Liver abscess 4. Failure to thrive Additional comments:68-year-old male admitted with abdominal pain, noted with NSTEMI, s/p stent placement to diagonal artery on 07/02/23. Still need staged PCI to RCA. Patient was noted with a liver abscess, seen by general surgery and GI, drain was placedby IR, has been tolerating antibiotics well.* Appreciated input from general surgery, GI, cardiology, and ID* Continue on broad-spectrum antibiotics for 1 more week* Hemoglobin is steady at 8.7 after 1 unit of PRBC yesterday* Anemia discussed with GI, plan for EGD tomorrow* Will replace potassium* Encourage oral intake and therapy* is at the bedside and all concerns addressed* Patient is awaiting SNF placement Free Text DxA P NotesFree text DxA P notes:Assessment - Acute Cholangitis/Cholelithiasis with distended gallbladder status post IR drainage of gallbladder/liver abscess- Acute stroke/Small focus of subacute ischemia in the left guo radiata.- Intraheptic abscess with Fistula to gallbaldder.- s/p IR drainage of liver abscess and gallbladder, drainage bilious today in IR drain, C tube bilious/bloody.- Superficial venous thrombosis of the right the left basilic vein.- Large amount of stool within the rectum.- Elevated LFTs and Bilirubin due to Possible Acute Chloangitis.- Elevated Troponin could be demand Ischemia.- Abd pain and N/V/Confusion- ARELY.- Hyperglycemia.- Sepsis; tachycardia, Bcx Gram neg rods- HX of HTN/DM type II/HLD and CAD s/p stent. Plan Status post IV Zosyn. Now on IV ceftriaxone and IV Flagyl for liver abscess, tentative plan for 4 weeks of antibiotics Cholestatic pattern, CBD normal on ultrasound, MRCP showed no evidence of choledocholithiasis, large fluid collection within liver secondary to gallbladder perforation. On IV antibiotics with Flagyl. Status post Jolanta total mid tube placement, awaiting cultures. Drain management per surgery. Patient will need interval cholecystectomy in the future, currently controlled with cholecystostomy tube and IR drain for liver abscess, given recent stroke, recent PCI on DAPT and bacteremia, not a good operative candidate currently Continue aspirin, Plavix repeat H/H,. yesterday was at 6.9 Discharge planning Pending peer to peer for LTAC placement at 1310 RPT #:[id number] OF REPORTPRProgress [id number]:08:00G.[id number] for patient gfksOUYBGQPKWRXHDN7856-86-68I87:14:56 [facility] 2023-08-27 12:41:00 [id number] tBsG9f/fMfC49riF9PY FoF2V9CGyYn3rAsq/9157-38-83G16:41:00 [facility] ([facility])Gastroenterology Progress NoteREPORT#:[id number] REPORT STATUS: SignedREPORT INITIALIZATION DATE:08/27/23 TIME: 1241 PATIENT: MISSY CANALES UNIT #: [id number]#: [id number] [address] [birth year] AGE: 68 SEX: M ATTEND: Raphael Ly MDADM AUTHOR: Lisa Cancino MDREPT SERVICE DT/TIME: 08/27/23 1241* ALL edits or amendments must be made on the electronic/computer document * SubjectiveChief complaint:Elevated LFtsHPI:68 year old man s/p cardiac stents 2 weeks ago who was sent to the hospital withelevated LFTs and possible acute cholecystitis. Pt had a stenet recently placed and was started on DAPT. Pt had labs showing elevated LFTs and was sent here forevaluation. Labs showed leukocytosis 15k. Elevated Tbili 3.7. Dbili 2.8. AST 79,ALT 105 and ALP 225. RUQ U/S showed possible cholecystitis and normal CBD of 4 mm in diatmeter. Pt denies pain. No dark urine or peyton-color stool 08/03; patient feels well. MRCP reviewed. No choledocholithiasis. Fluid collection at the liver could be related secondary to gallbladder perforation. LFTs and white count are down. 08/04: Plan for IR for cholecystostomy tube placement. LFts stable. WBC elevated.Was confused this am but improving. NO pain. No fevers. Added flagyl to his Abx regimen 08/05: NO new complaints. IR for abscess drain and cholecystostomy tube 08/06: Transferred overnight to ICU due to AMS. S/P IR with cholecystostomy tube and abscess drain 08/07: severely constipated. NGT in with feeds. drains in. More awake today and oriented. right sided weakness likely acute stroke. MRI brain reviewed- small stroke. KUB reviewed 08/08: Doing better according to . Sheldon removed. Still on feeds 08/09: Feeds at 20 ml/hr. Still no BM 08/10-Had BM last night. Denies n/v/abd pain 08/11-Patient dislodged DH. DH was replaced. +BM today 08/12: has been having BM during the weekend 08/13: No new events 08/14: eating and moving bowels. 08/15: doing well. 08/26: I was called again to evaluate pt. He has melena-like stool and dropped hisH/H. Pt is on DAPT Objective Physical ExamHEENT: EOMICardiovascular: normal heart soundsRespiratory: clear to auscultationAbdomen: non-tenderExtremities: no edemaSkin: dry, normal temperature Diagnosis, Assessment PlanProblem List/A P: 1. Elevated LFTs Free Text A P:cholestatic pattern. CBD normal on RuQ U/S MRCP showed no evidence of choledocholithiasis.Large fluid collection within the liver could be secondary to gallbladder perforation.Recommend surgical evaluation again.Continue with antibiotics. Add flagyl s/p cholecystostomy tube and drainage of cystic fluid collection. Awaiting culture Now with melena and drop in his H/H. He is on DAPTWill plan for EGD tomorrowNPO after MnD/W at 1246 RPT #:[id number] OF REPORTPRProgress [id number]:41:00G.[id number] for patient vmdlIVNCZVZEOFHDQV5439-56-01A52:46:29 [facility] 2023-08-27 09:04:00 [id number] rhcUCx5rsHtYaIrKes/ pahVUlP3N82/klEC/0108-84-03Y76:04:00 [facility] Progress NoteREPORT#:[id number] REPORT STATUS: SignedREPORT INITIALIZATION DATE:08/27/23 TIME: 903 PATIENT: MISSY CANALES UNIT #: [id number]#: [id number] [address] [birth year] AGE: 68 SEX: M ATTEND: MahadRaphael de la cruz Morelia MDADM AUTHOR: Esther BucknerPREPT SERVICE DT/TIME: 08/27/23 0904* ALL edits or amendments must be made on the electronic/computer document * SubjectivePatient reports:No: complaints. Objective GeneralVS/I O:24 hour I O ending at 0700: 08/26 0700 08/25 1900 Intake Total 395.00 Output Total 500 500 Balance -105.00 -500 Intake, IV 70.00 Intake, Oral 25 Intake, 300 Packed Cells Number 1 Bowel Movements Output, 100 Drainage Output, Urine 500 400 Vital Signs: Date Time Temp Pulse Resp B/P B/P Pulse O2 O2 Flow FiO2 Mean Ox Delivery Rate 08/26 0724 36.8 98 16 116/69 84.3 98 Room air 08/26 0558 37.0 114 98/66 76.5 100 08/26 0324 36.9 99 18 100/69 79.6 100 Room air 08/26 0042 37.3 97 114/74 87.5 100 08/25 2311 37.1 105 111/73 85.5 98 08/25 2247 37.2 108 18 135/85 102.1 98 Room air 08/25 2221 37.2 110 18 118/76 90.0 97 Room air 08/25 2207 37.4 112 18 127/75 92.1 98 Room air 08/25 2145 37.4 113 18 128/80 96.2 98 Room air 08/25 2041 37.7 08/25 2037 109 20 125/80 95.1 96 Room air 08/25 1629 37.4 97 16 102/60 73.6 99 Room air 08/25 1147 37.8 108 16 110/75 87.0 99 Room air PATIENT WEIGHT: Weight (lb): 177Weight (oz): 14.61Weight (kg): 80.286 Medications:Active Meds + DC'd Last 24 HrsPotassium Chloride (K-CHAPITO 20 MEQ PACKET) 40 MEQ ONCE ONE FEED-TUBE (DC) Insulin Glargine (Semglee) 20 UNIT DAILY SUBQ Lansoprazole (PREVACID) 30 MG BID PO Insulin Human Lispro (HUMALOG) 3 UNIT AC SUBQ Metronidazole (FLAGYL) 500 MG Q12H PO Ceftriaxone Sodium (ROCEPHIN) 2,000 MG Q24H IV Sodium Chloride (SODIUM CHLORIDE) 20 MLTamsulosin HCl (Flomax 0.4 mg) 0.4 MG PC BK PO Insulin Human Lispro (HUMALOG) 0 AC HS SUBQ Atorvastatin Calcium (LIPITOR) 40 MG BEDTIME PO Lactulose (LACTULOSE) 20 GM Q12HR PO Senna/Docusate Sodium (SENOKOT S) 1 TAB Q12HR PO Metoprolol Tartrate (LOPRESSOR) 50 MG Q8HR PO Clopidogrel Bisulfate (Plavix) 75 MG DAILY PO Allopurinol (ZYLOPRIM) 300 MG DAILY PO Aspirin (ASPIRIN) 81 MG DAILY PO Acetaminophen (TYLENOL) 650 MG Q6H PRN PRN PO Bisacodyl (DULCOLAX) 10 MG DAILY PRN PRN RECTAL Polyethylene Glycol (MIRALAX) 17 GM Q12H PO Dextrose/Water (DEXTROSE 10% IN WATER) 125 ML ASDIR PRN IV (CKD) Dextrose/Water (DEXTROSE 10% IN WATER) 250 ML ASDIR PRN IV (CKD) Glucagon (GLUCAGON) 1 MG ASDIR PRN IM Sodium Chloride (SODIUM CHLORIDE 0.9%) 250 ML BOLUS PRN IV Latanoprost (XALATAN 2.5 ML OPHTH SOLN) 1 DROP BEDTIME EACH EYE Timolol Maleate (TIMOPTIC 0.5% 5 ML OPHTH SOLN) 1 DROP BID EACH EYE Brimonidine Tartrate (Alphagan-P 0.2% 5 ML OPHTH SOLN) 1 DROP Q8HR EACH EYE Hydralazine HCl (APRESOLINE) 10 MG Q6H PRN PRN IV Ondansetron HCl (ZOFRAN) 4 MG Q4H PRN PRN IV Physical ExamGeneral appearance: alert, awake, orientedENT: normal noseNeck: non-tenderCardiovascular: CV assessment: ectopy, irregular rhythm, tachycardiaRespiratory: decreased breath sounds, on oxygen, no distressAbdomen: softGenitourinary: no urinary catheterUpper extremity: UE assessment: normal capillary refill, normal temperatureLower extremity: LE assessment: no edemaMusculoskeletal: decreased ROMNeuro/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: right hemiparesisSkin: dryPsychiatry: normal affect, normal mood ResultsFindings/Data:Laboratory Tests 08/26 08/25 08/25 08/25 0722 1845 1629 1145 Chemistry POC Glucose (70 - 110 MG/DL) 111 H 151 H 167 H 185 H Laboratory Tests 08/26 0541 Hematology WBC (4.5 - 11.0 x10 3/uL) 10.3 RBC (4.00 - 5.60 x10 6/uL) 2.74 L Hgb (12.5 - 16.9 g/dL) 8.7 L Hct (37.5 - 50.7 %) 27.2 L MCV (81.0 - 99.0 fL) 99.3 H MCH (27.0 - 33.0 pg) 31.8 MCHC (33.0 - 37.0 g/dL) 32.0 L RDW (11.5 - 14.5 %) 19.3 H Plt Count (150 - 400 x10 3/uL) 263 MPV (7.0 - 9.0 fL) 9.7 H Neut % (Auto) (56.0 - 77.0 %) 62.9 Lymph % (Auto) (14.0 - 32.0 %) 26.2 Evans % (Auto) (4.8 - 9.0 %) 8.3 Eos % (Auto) (0.3 - 3.7 %) 1.9 Baso % (Auto) (0.0 - 2.0 %) 0.3 Neut # (Auto) (2.0 - 7.6 x10 3/uL) 6.48 Lymph # (Auto) (1.0 - 3.8 x10 3/uL) 2.70 Evans # (Auto) (0.1 - 0.8 x10 3/uL) 0.85 H Eos # (Auto) (0.0 - 0.2 x10 3/uL) 0.20 Baso # (Auto) (0.0 - 0.2 x10 3/uL) 0.03 Abs Immat Gran (auto) (0.00 - 0.03 x10 3/uL) 0.04 H Immature Gran % (0.0 - 2.0 %) 0.4 Nucleated RBC % (0 - 0 %) 0.4 H Nucleated RBCs # (Man) (0.0 - 0.1 x10 3/uL) 0.04 Results: labs reviewed, rhythm personally rev'dTelemetry Interpretation:sinus tach with PACs and PVCs Diagnosis, Assessment PlanPlan discussed with: patient, spouse/partner, collaborating MD Free Text DxA P NotesFree Text DxA P Notes:1. Coronary artery disease s/p recent PCI/TERESA to diagonal artery* Troponin trend is flat* Hx of CABG (2000)* s/p stent placement to diagonal artery on 07/02/23. Still need staged PCI to RCA. * Continue Plavix and aspirin - do not stop Plavix d/t risk of stent thrombosis* Echocardiogram preserved LVEF.* PPI: lansoprazole 30 mg BID 2. Elevated LFTs/acute cholecystitis/liver abscess* s/p cholecystostomy tube placement. * GI on board* ID on board managing antibiotic 3. AMS: MRI brain showed small subacute ischemia in the L coronary radiata * MRI of the brain unchanged 4. Tachycardia with PVCs and PACs* Continue metoprolol 50 mg every 8 hours. * Telemetry tachycardic with frequent PVCs and PACs - r/o afib* Continue telemetry monitoring - r/o afib 5. Anemia* hgb 6.3 up to 8.9->8.6->6.9->7->8.7* s/p 2 units PRBCs 08/20/23, 1 unit PRBC 08/26/23* On PPI* GI on board Patient is waiting for placement. Medical decision making by Dr. Daniel. at 1412 at 1315 RPT #:[id number] OF REPORTPRProgress [id number]:04:00G.[id number] for patient ujgcJWRQONLRADVWLK4599-34-21G55:13:04 [facility] 2023-08-26 13:22:00 [id number]+JZuGytcuUu MmLzHFsPr9yWMAAqr5q JxfIlM3/2KLNJ2ktI3163-55-35R07:22:00 [facility] Progress NoteREPORT#:[id number] REPORT STATUS: SignedREPORT INITIALIZATION DATE:08/26/23 TIME: 1321 PATIENT: MISSY CANALES UNIT #: [id number]#: [id number] ROOM/BED: 6617-1DOB: [birth year] AGE: 68 SEX: M ATTEND: Raphael Ly MDADM AUTHOR: Ty Ontiveros MDREPT SERVICE DT/TIME: 08/26/23 1322* ALL edits or amendments must be made on the electronic/computer document * SubjectiveChief complaint:Patient is resting comfortably in bed this morning, eating lunchfrail, appetite is improving. is at the bedside Review of SystemsAll systems rev neg: except as noted Objective GeneralVS/I O:Vital Signs: Date Time Temp Pulse Resp B/P B/P Pulse O2 O2 Flow FiO2 Mean Ox Delivery Rate 08/25 1147 100.0 108 16 110/75 87.0 99 Room air 08/25 0837 98.6 88 16 114/70 84.7 97 Room air 08/25 0539 99.7 93 14 103/58 72.8 99 Room air 08/25 0104 100.6 99 14 132/76 94.5 97 Room air 08/24 1703 107 18 109/76 86.8 98 24 hour I O ending at 0700: 08/25 0700 08/24 1900 Intake Total Output Total 400 Balance -400 Output, Urine 400 PATIENT WEIGHT: Weight (lb): 177Weight (oz): 14.61Weight (kg): 80.286 Physical ExamHead/Eyes: atraumatic, normocephalic, PERRLAENT: moist mucosal membranes, normal dentitionNeck: full range of motion, non-tender, no JVDCardiovascular: normal heart sounds, regular rate rhythmRespiratory: aerating well, symmetric expansion, no distressAbdomen: non-tender, normal bowel sounds, jtube present with minimal collection (liver abscess drains in place)Genitourinary: no bladder distention, no flank painExtremities: no clubbing, no cyanosisMusculoskeletal: no muscle spasmNeuro/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: abnormal speech, disoriented, alert ResultsFindings/Data:Laboratory Tests 08/25 08/25 08/25 08/24 08/24 1145 0839 5498 2145 1650 Chemistry Sodium (134 - 147 mEq/L) 149 H Potassium (3.4 - 5.0 mEq/L) 3.2 L Chloride (100 - 108 mEq/L) 117 H Carbon Dioxide (21 - 33 mEq/l) 25 Anion Gap (0 - 20) 10 BUN (7 - 25 mg/dL) 18 Creatinine (0.6 - 1.3 mg/dL) 0.9 Glomerular Filtr Rate (70 - 80) 91.9 H Glucose (77 - 141 mg/dL) 135 POC Glucose (70 - 110 MG/DL) 185 H 144 H 176 H 177 H Calcium (8.0 - 10.5 mg/dL) 8.4 Total Bilirubin (0.0 - 1.0 mg/dL) 0.40 AST (8 - 34 IUnit/L) 55 H ALT (10 - 49 IUnit/L) 36 Total Alk Phosphatase (20 - 125 IUnit/L) 82 Total Protein (6.4 - 8.2 g/dL) 6.9 Albumin (3.4 - 5.0 g/dL) 1.70 L Laboratory Tests 08/25 0415 Hematology WBC (4.5 - 11.0 x10 3/uL) 11.6 H RBC (4.00 - 5.60 x10 6/uL) 2.22 L Hgb (12.5 - 16.9 g/dL) 7.0 L Hct (37.5 - 50.7 %) 22.5 L MCV (81.0 - 99.0 fL) 101.4 H MCH (27.0 - 33.0 pg) 31.5 MCHC (33.0 - 37.0 g/dL) 31.1 L RDW (11.5 - 14.5 %) 18.1 H Plt Count (150 - 400 x10 3/uL) 277 MPV (7.0 - 9.0 fL) 10.0 H Neut % (Auto) (56.0 - 77.0 %) 63.8 Lymph % (Auto) (14.0 - 32.0 %) 26.3 Evans % (Auto) (4.8 - 9.0 %) 7.6 Eos % (Auto) (0.3 - 3.7 %) 1.7 Baso % (Auto) (0.0 - 2.0 %) 0.3 Neut # (Auto) (2.0 - 7.6 x10 3/uL) 7.41 Lymph # (Auto) (1.0 - 3.8 x10 3/uL) 3.06 Evans # (Auto) (0.1 - 0.8 x10 3/uL) 0.88 H Eos # (Auto) (0.0 - 0.2 x10 3/uL) 0.20 Baso # (Auto) (0.0 - 0.2 x10 3/uL) 0.03 Abs Immat Gran (auto) (0.00 - 0.03 x10 3/uL) 0.04 H Immature Gran % (0.0 - 2.0 %) 0.3 Nucleated RBC % (0 - 0 %) 0.4 H Nucleated RBCs # (Man) (0.0 - 0.1 x10 3/uL) 0.05 Results: labs reviewed, vital signs reviewed Treatment Prophylaxis Treatment ProphylaxisOxygen: room air Diagnosis, Assessment PlanProblem List/A P: 1. Acute cholangitis 2. Elevated LFTs 3. Liver abscess 4. Failure to thrive Free Text DxA P NotesFree text DxA P notes:Assessment - Acute Cholangitis/Cholelithiasis with distended gallbladder status post IR drainage of gallbladder/liver abscess- Acute stroke/Small focus of subacute ischemia in the left guo radiata.- Intraheptic abscess with Fistula to gallbaldder.- s/p IR drainage of liver abscess and gallbladder, drainage bilious today in IR drain, C tube bilious/bloody.- Superficial venous thrombosis of the right the left basilic vein.- Large amount of stool within the rectum.- Elevated LFTs and Bilirubin due to Possible Acute Chloangitis.- Elevated Troponin could be demand Ischemia.- Abd pain and N/V/Confusion- ARELY.- Hyperglycemia.- Sepsis; tachycardia, Bcx Gram neg rods- HX of HTN/DM type II/HLD and CAD s/p stent. Plan Status post IV Zosyn. Now on IV ceftriaxone and IV Flagyl for liver abscess, tentative plan for 4 weeks of antibiotics Cholestatic pattern, CBD normal on ultrasound, MRCP showed no evidence of choledocholithiasis, large fluid collection within liver secondary to gallbladder perforation. On IV antibiotics with Flagyl. Status post Jolanta total mid tube placement, awaiting cultures. Drain management per surgery. Patient will need interval cholecystectomy in the future, currently controlled with cholecystostomy tube and IR drain for liver abscess, given recent stroke, recent PCI on DAPT and bacteremia, not a good operative candidate currently Continue aspirin, Plavix repeat H/H,. yesterday was at 6.9 Discharge planning [facility] Plan 65 or OlderDiscussed with: patient, surrogate decis. maker at 1323 RPT #:[id number] OF REPORTPRProgress [id number]:22:00G.[id number] for patient atwoYUNKHDPDQXSZKQ9648-83-14X68:24:09 [facility] 2023-08-26 12:31:00 [id number] s22pMSLrVGY4Q4WG2lB 1OqPKmwQsJiepppRK7109-97-03A94:31:00 [facility] ([facility])Cardiology Progress NoteREPORT#:[id number] REPORT STATUS: SignedREPORT INITIALIZATION DATE:08/26/23 TIME: 1231 PATIENT: MISSY CANALES UNIT #: [id number]#: [id number] [address] [birth year] AGE: 68 SEX: M ATTEND: Raphael Ly AUTHOR: Esther BucknerCNPREPT SERVICE DT/TIME: 08/26/23 1231* ALL edits or amendments must be made on the electronic/computer document * SubjectiveComments:Tachycardic, could be d/t anemia Objective GeneralVS/I O:24 hour I O ending at 0700: 08/25 0700 08/24 1900 Intake Total Output Total 400 Balance -400 Output, Urine 400 Vital Signs: Date Time Temp Pulse Resp B/P B/P Pulse O2 O2 Flow FiO2 Mean Ox Delivery Rate 08/25 1147 37.8 108 16 110/75 87.0 99 Room air 08/25 0837 37.0 88 16 114/70 84.7 97 Room air 08/25 0539 37.6 93 14 103/58 72.8 99 Room air 08/25 0104 38.1 99 14 132/76 94.5 97 Room air 08/24 1703 107 18 109/76 86.8 98 PATIENT WEIGHT: Weight (lb): 177Weight (oz): 14.61Weight (kg): 80.286 Medications:Active Meds + DC'd Last 24 HrsInsulin Glargine (Semglee) 20 UNIT DAILY SUBQ Lansoprazole (PREVACID) 30 MG BID PO Insulin Human Lispro (HUMALOG) 3 UNIT AC SUBQ Metronidazole (FLAGYL) 500 MG Q12H PO Ceftriaxone Sodium (ROCEPHIN) 2,000 MG Q24H IV Sodium Chloride (SODIUM CHLORIDE) 20 MLTamsulosin HCl (Flomax 0.4 mg) 0.4 MG PC BK PO Insulin Human Lispro (HUMALOG) 0 AC HS SUBQ Atorvastatin Calcium (LIPITOR) 40 MG BEDTIME PO Lactulose (LACTULOSE) 20 GM Q12HR PO Senna/Docusate Sodium (SENOKOT S) 1 TAB Q12HR PO Metoprolol Tartrate (LOPRESSOR) 50 MG Q8HR PO Clopidogrel Bisulfate (Plavix) 75 MG DAILY PO Allopurinol (ZYLOPRIM) 300 MG DAILY PO Aspirin (ASPIRIN) 81 MG DAILY PO Acetaminophen (TYLENOL) 650 MG Q6H PRN PRN PO Bisacodyl (DULCOLAX) 10 MG DAILY PRN PRN RECTAL Polyethylene Glycol (MIRALAX) 17 GM Q12H PO Dextrose/Water (DEXTROSE 10% IN WATER) 125 ML ASDIR PRN IV (CKD) Dextrose/Water (DEXTROSE 10% IN WATER) 250 ML ASDIR PRN IV (CKD) Glucagon (GLUCAGON) 1 MG ASDIR PRN IM Sodium Chloride (SODIUM CHLORIDE 0.9%) 250 ML BOLUS PRN IV Latanoprost (XALATAN 2.5 ML OPHTH SOLN) 1 DROP BEDTIME EACH EYE Timolol Maleate (TIMOPTIC 0.5% 5 ML OPHTH SOLN) 1 DROP BID EACH EYE Brimonidine Tartrate (Alphagan-P 0.2% 5 ML OPHTH SOLN) 1 DROP Q8HR EACH EYE Hydralazine HCl (APRESOLINE) 10 MG Q6H PRN PRN IV Ondansetron HCl (ZOFRAN) 4 MG Q4H PRN PRN IV Physical ExamGeneral appearance: chronically ill appearing, frail, awake, no acute distressENT: normal noseNeck: non-tenderCardiovascular: CV assessment: ectopy, irregular rhythm, tachycardiaRespiratory: decreased breath sounds, on oxygen, no distressAbdomen: softGenitourinary: no urinary catheterUpper extremity: UE assessment: normal capillary refill, normal temperatureLower extremity: LE assessment: no edemaMusculoskeletal: decreased ROMNeuro/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: right hemiparesisSkin: dryPsychiatry: normal affect, normal mood ResultsFindings/Data:Laboratory Tests 08/25 08/25 08/24 08/24 0839 0415 2147 1650 Chemistry Sodium (134 - 147 mEq/L) 149 H Potassium (3.4 - 5.0 mEq/L) 3.2 L Chloride (100 - 108 mEq/L) 117 H Carbon Dioxide (21 - 33 mEq/l) 25 Anion Gap (0 - 20) 10 BUN (7 - 25 mg/dL) 18 Creatinine (0.6 - 1.3 mg/dL) 0.9 Glomerular Filtr Rate (70 - 80) 91.9 H Glucose (77 - 141 mg/dL) 135 POC Glucose (70 - 110 MG/DL) 144 H 176 H 177 H Calcium (8.0 - 10.5 mg/dL) 8.4 Total Bilirubin (0.0 - 1.0 mg/dL) 0.40 AST (8 - 34 IUnit/L) 55 H ALT (10 - 49 IUnit/L) 36 Total Alk Phosphatase (20 - 125 IUnit/L) 82 Total Protein (6.4 - 8.2 g/dL) 6.9 Albumin (3.4 - 5.0 g/dL) 1.70 L Laboratory Tests 08/25 0411 Hematology WBC (4.5 - 11.0 x10 3/uL) 11.6 H RBC (4.00 - 5.60 x10 6/uL) 2.22 L Hgb (12.5 - 16.9 g/dL) 7.0 L Hct (37.5 - 50.7 %) 22.5 L MCV (81.0 - 99.0 fL) 101.4 H MCH (27.0 - 33.0 pg) 31.5 MCHC (33.0 - 37.0 g/dL) 31.1 L RDW (11.5 - 14.5 %) 18.1 H Plt Count (150 - 400 x10 3/uL) 277 MPV (7.0 - 9.0 fL) 10.0 H Neut % (Auto) (56.0 - 77.0 %) 63.8 Lymph % (Auto) (14.0 - 32.0 %) 26.3 Evans % (Auto) (4.8 - 9.0 %) 7.6 Eos % (Auto) (0.3 - 3.7 %) 1.7 Baso % (Auto) (0.0 - 2.0 %) 0.3 Neut # (Auto) (2.0 - 7.6 x10 3/uL) 7.41 Lymph # (Auto) (1.0 - 3.8 x10 3/uL) 3.06 Evans # (Auto) (0.1 - 0.8 x10 3/uL) 0.88 H Eos # (Auto) (0.0 - 0.2 x10 3/uL) 0.20 Baso # (Auto) (0.0 - 0.2 x10 3/uL) 0.03 Abs Immat Gran (auto) (0.00 - 0.03 x10 3/uL) 0.04 H Immature Gran % (0.0 - 2.0 %) 0.3 Nucleated RBC % (0 - 0 %) 0.4 H Nucleated RBCs # (Man) (0.0 - 0.1 x10 3/uL) 0.05 Results: labs reviewed, vital signs reviewed, rhythm personally rev'dTelemetry Interpretation:ST with PAC and PVCs Diagnosis, Assessment PlanPlan discussed with: spouse/partner, collaborating MD, nurse Free Text DxA P NotesFree Text DxA P Notes:1. Coronary artery disease s/p recent PCI/TERESA to diagonal artery* Troponin trend is flat* Hx of CABG (2000)* s/p stent placement to diagonal artery on 07/02/23. Still need staged PCI to RCA. * Continue Plavix and aspirin - do not stop Plavix d/t risk of stent thrombosis* Echocardiogram preserved LVEF.* PPI: lansoprazole 30 mg BID 2. Elevated LFTs/acute cholecystitis/liver abscess* s/p cholecystostomy tube placement. * GI on board* ID on board managing antibiotic 3. AMS: MRI brain showed small subacute ischemia in the L coronary radiata * MRI of the brain unchanged 4. Tachycardia with PVCs and PACs* Continue metoprolol 50 mg every 8 hours. * continuous telemetry monitoring* Telemetry tachycardic with frequent PVCs and PACs.* tachycardia could be d/t anemia* replace low potassium, 1 unit PRBC transfusion 5. Anemia* hgb 6.3 up to 8.9->8.6->6.9->7* s/p 2 units PRBCs 08/20/23* On PPI* GI on board* hgb 7, will order 1 unit PRBC Patient is waiting for placement. Medical decision making by Dr. Daniel. at 1235 at 1318 RPT #:[id number] OF REPORTPRProgress [id number]:31:00G.[id number] for patient jwmwJBHQZKSCEVGMAB8307-50-95K41:36:03 [facility] 2023-08-25 16:02:00 [id number]/CrbpmAKhvdRi6IpqJJMU+ dL0zWmWo/M1BwJd+4/1 +ZLRpiYCEC0/PHL9R9298-15-72X30:02:00 [facility] CenterCard[facility] Progress NoteREPORT#:[id number] REPORT STATUS: SignedREPORT INITIALIZATION DATE:08/25/23 TIME: 1602 PATIENT: MISSY CANALES UNIT #: [id number]#: [id number] [address] AGE: 68 SEX: M ATTEND: Raphael Ly AUTHOR: Esther Buckner AGACNPREPT SERVICE DT/TIME: 08/25/23 1602* ALL edits or amendments must be made on the electronic/computer document * SubjectiveComments:No new cardiac issue. Objective GeneralVS/I O:Vital Signs: Date Time Temp Pulse Resp B/P B/P Pulse O2 O2 Flow FiO2 Mean Ox Delivery Rate 08/24 1111 91 16 129/94 105.7 98 08/24 0730 49 14 112/62 79.0 99 08/24 0511 36.6 72 16 122/73 89.1 99 Room air 08/24 0003 36.8 84 17 118/72 87.5 99 Room air 08/23 2058 36.9 102 17 111/70 83.6 99 Room air 08/23 1625 37.4 63 17 118/46 70.2 99 PATIENT WEIGHT: Weight (lb): 177Weight (oz): 14.61Weight (kg): 80.286 Medications:Active Meds + DC'd Last 24 HrsInsulin Glargine (Semglee) 20 UNIT DAILY SUBQ Lansoprazole (PREVACID) 30 MG BID PO Insulin Human Lispro (HUMALOG) 3 UNIT AC SUBQ Lansoprazole (PREVACID) 30 MG BID PO (DC) Metronidazole (FLAGYL) 500 MG Q12H PO Ceftriaxone Sodium (ROCEPHIN) 2,000 MG Q24H IV Sodium Chloride (SODIUM CHLORIDE) 20 MLTamsulosin HCl (Flomax 0.4 mg) 0.4 MG PC BK PO Insulin Human Lispro (HUMALOG) 0 AC HS SUBQ Atorvastatin Calcium (LIPITOR) 40 MG BEDTIME PO Lactulose (LACTULOSE) 20 GM Q12HR PO Senna/Docusate Sodium (SENOKOT S) 1 TAB Q12HR PO Metoprolol Tartrate (LOPRESSOR) 50 MG Q8HR PO Clopidogrel Bisulfate (Plavix) 75 MG DAILY PO Allopurinol (ZYLOPRIM) 300 MG DAILY PO Aspirin (ASPIRIN) 81 MG DAILY PO Acetaminophen (TYLENOL) 650 MG Q6H PRN PRN PO Bisacodyl (DULCOLAX) 10 MG DAILY PRN PRN RECTAL Polyethylene Glycol (MIRALAX) 17 GM Q12H PO Dextrose/Water (DEXTROSE 10% IN WATER) 125 ML ASDIR PRN IV (CKD) Dextrose/Water (DEXTROSE 10% IN WATER) 250 ML ASDIR PRN IV (CKD) Glucagon (GLUCAGON) 1 MG ASDIR PRN IM Sodium Chloride (SODIUM CHLORIDE 0.9%) 250 ML BOLUS PRN IV Latanoprost (XALATAN 2.5 ML OPHTH SOLN) 1 DROP BEDTIME EACH EYE Timolol Maleate (TIMOPTIC 0.5% 5 ML OPHTH SOLN) 1 DROP BID EACH EYE Brimonidine Tartrate (Alphagan-P 0.2% 5 ML OPHTH SOLN) 1 DROP Q8HR EACH EYE Hydralazine HCl (APRESOLINE) 10 MG Q6H PRN PRN IV Ondansetron HCl (ZOFRAN) 4 MG Q4H PRN PRN IV Physical ExamGeneral appearance: alert, awake, no acute distressENT: normal noseNeck: non-tenderCardiovascular: CV assessment: ectopy, irregular rhythm, tachycardiaRespiratory: decreased breath sounds, on oxygen, no distressAbdomen: softGenitourinary: no urinary catheterUpper extremity: UE assessment: normal capillary refill, normal temperatureLower extremity: LE assessment: no edemaMusculoskeletal: decreased ROMNeuro/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: right hemiparesisSkin: dryPsychiatry: normal affect, normal mood ResultsFindings/Data:Laboratory Tests 08/24 08/24 08/23 08/23 1110 0729 2054 1605 Chemistry POC Glucose (70 - 110 MG/DL) 227 H 219 H 206 H 248 H Results: no new labs, vital signs reviewed, rhythm personally rev'dTelemetry Interpretation:Sinus tachycardia with PVCs and PACs. Diagnosis, Assessment PlanPlan discussed with: spouse/partner, collaborating MD Free Text DxA P NotesFree Text DxA P Notes:1. Coronary artery disease s/p recent PCI/TERESA to diagonal artery* Troponin trend is flat* Hx of CABG (2000)* s/p stent placement to diagonal artery on 07/02/23. Still need staged PCI to RCA. * Continue Plavix and aspirin - do not stop Plavix d/t risk of stent thrombosis* Echocardiogram preserved LVEF.* PPI: lansoprazole 30 mg BID 2. Elevated LFTs/acute cholecystitis/liver abscess* s/p cholecystostomy tube placement. * GI on board* ID on board managing antibiotic 3. AMS: MRI brain showed small subacute ischemia in the L coronary radiata * MRI of the brain unchanged 4. Tachycardia with PVCs and PACs* Continue metoprolol 50 mg every 8 hours. * continuous telemetry monitoring* Telemetry with frequent PVCs and PACs. 5. Anemia* hgb 6.3 up to 8.9->8.6* s/p 2 units PRBCs 08/20/23* On PPI* GI on board D/w . Patient is waiting for placement. Medical decision making by Dr. Daniel. at 1603 at 1318 RPT #:[id number] OF REPORTPRProgress [id number]:02:00G.[id number] for patient nimkZBODIDRHYIMLMO5241-08-83X80:03:50 [facility] 2023-08-25 13:33:00 [id number]/elkzD5 YNWxUF9s8F64rbJ6odS WoPSNlBxQPyqrVqVH0553-36-03W95:33:00 [facility] Progress NoteREPORT#:[id number] REPORT STATUS: SignedREPORT INITIALIZATION DATE:08/25/23 TIME: 1332 PATIENT: MISSY CANALES UNIT #: [id number]#: [id number] [address] [birth year] AGE: 68 SEX: M ATTEND: Raphael Ly MDADM AUTHOR: Ty Ontiveros MDREPT SERVICE DT/TIME: 08/25/23 1333* ALL edits or amendments must be made on the electronic/computer document * SubjectiveChief complaint:Patient is resting comfortably in bed this morning, remains very weak andfrail, appetite is improving. is at the bedside Review of SystemsAll systems rev neg: except as noted Objective GeneralVS/I O:Vital Signs: Date Time Temp Pulse Resp B/P B/P Pulse O2 O2 Flow FiO2 Mean Ox Delivery Rate 08/24 1111 91 16 129/94 105.7 98 08/24 0730 49 14 112/62 79.0 99 08/24 0511 97.9 72 16 122/73 89.1 99 Room air 08/24 0003 98.2 84 17 118/72 87.5 99 Room air 08/238 98.4 102 17 111/70 83.6 99 Room air 08/23 1625 99.3 63 17 118/46 70.2 99 PATIENT WEIGHT: Weight (lb): 177Weight (oz): 14.61Weight (kg): 80.286 Physical ExamHead/Eyes: atraumatic, normocephalic, PERRLAENT: moist mucosal membranes, normal dentitionNeck: full range of motion, non-tender, no JVDCardiovascular: normal heart sounds, regular rate rhythmRespiratory: aerating well, symmetric expansion, no distressAbdomen: non-tender, normal bowel sounds, jtube present with minimal collection (liver abscess drains in place)Genitourinary: no bladder distention, no flank painExtremities: no clubbing, no cyanosisMusculoskeletal: no muscle spasmNeuro/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: abnormal speech, disoriented, alert ResultsFindings/Data:Laboratory Tests 08/24 08/24 08/23 08/23 1110 0729 2054 1605 Chemistry POC Glucose (70 - 110 MG/DL) 227 H 219 H 206 H 248 H Results: labs reviewed, vital signs reviewed Treatment Prophylaxis Treatment ProphylaxisOxygen: room air Diagnosis, Assessment PlanProblem List/A P: 1. Acute cholangitis 2. Elevated LFTs 3. Liver abscess 4. Failure to thrive Free Text DxA P NotesFree text DxA P notes:Assessment - Acute Cholangitis/Cholelithiasis with distended gallbladder status post IR drainage of gallbladder/liver abscess- Acute stroke/Small focus of subacute ischemia in the left guo radiata.- Intraheptic abscess with Fistula to gallbaldder.- s/p IR drainage of liver abscess and gallbladder, drainage bilious today in IR drain, C tube bilious/bloody.- Superficial venous thrombosis of the right the left basilic vein.- Large amount of stool within the rectum.- Elevated LFTs and Bilirubin due to Possible Acute Chloangitis.- Elevated Troponin could be demand Ischemia.- Abd pain and N/V/Confusion- ARELY.- Hyperglycemia.- Sepsis; tachycardia, Bcx Gram neg rods- HX of HTN/DM type II/HLD and CAD s/p stent. Plan Status post IV Zosyn. Now on IV ceftriaxone and IV Flagyl for liver abscess, tentative plan for 4 weeks of antibiotics Cholestatic pattern, CBD normal on ultrasound, MRCP showed no evidence of choledocholithiasis, large fluid collection within liver secondary to gallbladder perforation. On IV antibiotics with Flagyl. Status post Jolanta total mid tube placement, awaiting cultures. Drain management per surgery. Patient will need interval cholecystectomy in the future, currently controlled with cholecystostomy tube and IR drain for liver abscess, given recent stroke, recent PCI on DAPT and bacteremia, not a good operative candidate currently Continue aspirin, Plavix repeat H/H,. yesterday was at 6.9 Discharge planning Pending peer to peer for LTAC placement Quality: [facility] Crit Care Advanced Care Plan 65 or OlderDiscussed with: patient, surrogate decis. maker at 1334 RPT #:[id number] OF REPORTPRProgress [id number]:33:00G.[id number] for patient rduuOZMTKMENBGNYUH6667-63-63N47:34:42 [facility] 2023-08-24 18:11:00 [id number]+wLS xJJ9y5ItIriSh/PZ4Tx lFC/siq79iP/bxCY+4283-17-68L49:11:00 [facility] ([facility])Infectious Dis. Progress NoteREPORT#:[id number] REPORT STATUS: SignedREPORT INITIALIZATION DATE:08/24/23 TIME: 1810 PATIENT: MISSY CANALES UNIT #: [id number]#: [id number] [address] [birth year] AGE: 68 SEX: M ATTEND: Raphael Ly MDA AUTHOR: Henrry Heredia MDREPT SERVICE DT/TIME: 08/24/23 1811* ALL edits or amendments must be made on the electronic/computer document * SubjectiveChief complaint:Follow-up on bacteremia, hepatic abscess, cholecystitis, aspiration pneumoniaHPI:Review of systems is somewhat limited due to patient's limited responses. Nonetheless, he appears comfortable. present at bedside. No major overnight events. Objective GeneralVS/I O:Vital Signs Date Temp Pulse Resp B/P B/P Mean Pulse Ox FiO2 08/22-08/23 98.1-99.9 63-107 16-18 99-125/46-71 70.2-88.9 95-99 Last Documented: Result Date Time Pulse Ox 99 08/23 1625 B/P 118/46 08/23 1625 B/P Mean 70.2 08/23 1625 Temp 99.3 08/23 1625 Pulse 63 08/23 1625 Resp 17 08/23 1625 O2 Delivery Room air 08/22 2332 O2 Flow Rate 3 08/21 0434 FiO2 40 08/07 0752 Vital Signs: Date Time Temp Pulse Resp B/P B/P Pulse O2 O2 Flow FiO2 Mean Ox Delivery Rate 08/23 1625 99.3 63 17 118/46 70.2 99 08/23 1116 99.1 81 17 99/63 75.4 99 08/23 0650 99.1 85 17 124/71 88.9 97 08/23 0340 99.1 107 16 123/69 87.3 97 08/22 2332 99.9 95 18 125/71 88.6 97 Room air 08/22 1904 98.1 98 18 102/60 74.1 95 Room air PATIENT WEIGHT: Weight (lb): 177Weight (oz): 14.61Weight (kg): 80.286 Physical ExamGeneral appearance: lethargic, awake, no acute distressCardiovascular: regular rate rhythm, no murmurRespiratory: clear to auscultation, symmetric expansionAbdomen: non-tender, soft, no distention, percutaneous drains in place in RUQExtremities: no cyanosis, no edemaNeuro/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 Canales is a 68-year-old male with PMH of HTN, DMII, CAD s/p stent who came to [facility] initially with N/V and abdominal pain. His pain was started 2 days prior to admission. His work up showed elevated LFTs, bilirubin, troponin. His US abdomen showed cholelithiasis with distended gallbladder including material at the gallbladder neck concerning for impacted stone. Patient started on empiric antibiotics and had cultures done with blood culture showing gram negative bacilli. Patient has been febrile and tachycardic while here. GI and general surgery are consulted. Patient was found to have acute cholecystitis with a liver abscess. He had a drain in the gallbladder and in the abscess placed. Blood culture eventually grew Citrobacter and so did the abscess. *Fever--Recurrent after improvement--UA via straight cath (-)--Covid (-)--Flu (-)--F/U CT A/P, decreased liver absces; (+) LLL infiltrates c/w PNA*PNA--CT LLL infiltrates c/w aspiration*Bacteremia--Citrobacter--Source: Biliary*Liver abscess--MRCP showed 4.6 x 3.6 x 3.0 thick walled cystic lesion/fluid collection liver abutting GB fossa--S/P IR drain 08/05, cx Citrobacter*Acute cholecystitis--S/P IR placed cholecystotomy tube 3.11, cx Citrobacter*Acute stroke--MRI (+) subacute Left guo radiata--CTA neck (+) high grade stenosis*ARELY*DM2*HTN*CAD Plan: -Patient has had > 7 days of piperacillin-tazobactam to cover for aspiration pneumonia.-Antibiotic treatment transitioned back to ceftriaxone and metronidazole on 08/22/2023 for coverage of liver abscess.-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 -Increase in WBC count to 12.3 on today's labs noted.-Patient otherwise has been afebrile and seems clinically stable.-Would monitor closely on current treatment.-Observe aspiration precautions. Discussed with at bedside. at 1813 RPT #:[id number] OF REPORTPRProgress [id number]:11:00G.[id number] for patient bvqdYENIUYXDSWCVLL8512-52-20M15:14:02 [facility] 2023-08-24 18:10:00 [id number] TApQQ6z4b7V+mrCOhAd BIbrfjrGzSmop/oiz1464-15-85A08:10:00 [facility] Progress NoteREPORT#:[id number] REPORT STATUS: SignedREPORT INITIALIZATION DATE:08/24/23 TIME: 1809 PATIENT: MISSY CANALES UNIT #: [id number]#: [id number] [address] [birth year] AGE: 68 SEX: M ATTEND: Raphael Ly MDA AUTHOR: Nelile Palmer MDREPT SERVICE DT/TIME: 08/24/231809* ALL edits or amendments must be made on the electronic/computer document * SubjectiveChief complaint:Patient is resting comfortably in bed this morning, remains very weak and frail, appetite is improving. is at the bedside Free Text Subj NotesFree Text Subj Notes:Patient resting comfortably, no acute issues no chest pain no shortness of breath Vitals reviewed, labs reviewed Review of SystemsAll systems rev neg: except as noted Objective GeneralVS/I O:Vital Signs: Date Time Temp Pulse Resp B/P B/P Pulse O2 O2 Flow FiO2 Mean Ox Delivery Rate 08/23 1625 99.3 63 17 118/46 70.2 99 08/23 1116 99.1 81 17 99/63 75.4 99 08/23 0650 99.1 85 17 124/71 88.9 97 08/23 0340 99.1 107 16 123/69 87.3 97 08/22 2332 99.9 95 18 125/71 88.6 97 Room air 08/22 1904 98.1 98 18 102/60 74.1 95 Room air PATIENT WEIGHT: Weight (lb): 177Weight (oz): 14.61Weight (kg): 80.286 Medications:Active Meds + DC'd Last 24 HrsInsulin Glargine (Semglee) 20 UNIT DAILY SUBQ Insulin Human Lispro (HUMALOG) 3 UNIT AC SUBQ Lansoprazole (PREVACID) 30 MG BID PO Metronidazole (FLAGYL) 500 MG Q12H PO Ceftriaxone Sodium (ROCEPHIN) 2,000 MG Q24H IV Sodium Chloride (SODIUM CHLORIDE) 20 MLInsulin Glargine (Semglee) 15 UNIT DAILY SUBQ (DC) Tamsulosin HCl (Flomax 0.4 mg) 0.4 MG PC BK PO Insulin Human Lispro (HUMALOG) 0 AC HS SUBQ Atorvastatin Calcium (LIPITOR) 40 MG BEDTIME PO Lactulose (LACTULOSE) 20 GM Q12HR PO Senna/Docusate Sodium (SENOKOT S) 1 TAB Q12HR PO Metoprolol Tartrate (LOPRESSOR) 50 MG Q8HR PO Clopidogrel Bisulfate (Plavix) 75 MG DAILY PO Allopurinol (ZYLOPRIM) 300 MG DAILY PO Aspirin (ASPIRIN) 81 MG DAILY PO Acetaminophen (TYLENOL) 650 MG Q6H PRN PRN PO Bisacodyl (DULCOLAX) 10 MG DAILY PRN PRN RECTAL Polyethylene Glycol (MIRALAX) 17 GM Q12H PO Dextrose/Water (DEXTROSE 10% IN WATER) 125 ML ASDIR PRN IV (CKD) Dextrose/Water (DEXTROSE 10% IN WATER) 250 ML ASDIR PRN IV (CKD) Glucagon (GLUCAGON) 1 MG ASDIR PRN IM Sodium Chloride (SODIUM CHLORIDE 0.9%) 250 ML BOLUS PRN IV Latanoprost (XALATAN 2.5 ML OPHTH SOLN) 1 DROP BEDTIME EACH EYE Timolol Maleate (TIMOPTIC 0.5% 5 ML OPHTH SOLN) 1 DROP BID EACH EYE Brimonidine Tartrate (Alphagan-P 0.2% 5 ML OPHTH SOLN) 1 DROP Q8HR EACH EYE Hydralazine HCl (APRESOLINE) 10 MG Q6H PRN PRN IV Ondansetron HCl (ZOFRAN) 4 MG Q4H PRN PRN IV Dietitian nutrition assessmentThe data set between the solid lines has been imported from the dietitian's assessment. BMI Calculated: 27.7Nutrition related diagnosis: OverweightNutrition diagnosis details: BMI 25-29.9Nutrition problem: Inadequate oral intakeNutrition etiology: PT LETHARGIC /SWALLOWING Nutrition signs and symptoms: ENTERAL NUTRITION TO MEET , ENERGY NEEDS , (DIET ADVANCED TO PUREED AND, TOLERATED.)Nutrition prescription: 1. RECOMMEND PUREED CCD5 DIET. 2. PROVIDE GLUCERNA TID WITH MEALS. 3. MONITOR PO, WT, LABS, BM.Dietitian name: Lucía Torres, DIETAssessment completed: 08/20/23 Physical ExamGeneral appearance: alert, awake, orientedHead/Eyes: atraumatic, normocephalic, PERRLAENT: moist mucosal membranes, normal dentitionNeck: full range of motion, non-tender, no JVDCardiovascular: normal heart sounds, regular rate rhythmRespiratory: aerating well, symmetric expansion, no distressAbdomen: non-tender, normal bowel sounds, jtube present with minimal collection (liver abscess drains in place)Genitourinary: no bladder distention, no flank painExtremities: no clubbing, no cyanosisMusculoskeletal: no muscle spasmNeuro/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: abnormal speech, disoriented, alert ResultsFindings/Data:Laboratory Tests 08/23 08/23 08/23 08/23 08/22 1605 1315 1114 0649 1905 Chemistry Sodium (134 - 147 mEq/L) 147 Potassium (3.4 - 5.0 mEq/L) 3.8 Chloride (100 - 108 mEq/L) 119 H Carbon Dioxide (21 - 33 mEq/l) 20 L Anion Gap (0 - 20) 12 BUN (7 - 25 mg/dL) 23 Creatinine (0.6 - 1.3 mg/dL) 0.7 Glomerular Filtr Rate (70 - 80) 99.1 H Glucose (77 - 141 mg/dL) 216 H POC Glucose (70 - 110 MG/DL) 248 H 246 H 203 H 273 H Calcium (8.0 - 10.5 mg/dL) 6.2 *L Laboratory Tests 08/23 1315 Hematology WBC (4.5 - 11.0 x10 3/uL) 12.3 H RBC (4.00 - 5.60 x10 6/uL) 2.21 L Hgb (12.5 - 16.9 g/dL) 6.9 L Hct (37.5 - 50.7 %) 22.4 L MCV (81.0 - 99.0 fL) 101.4 H MCH (27.0 - 33.0 pg) 31.2 MCHC (33.0 - 37.0 g/dL) 30.8 L RDW (11.5 - 14.5 %) 17.8 H Plt Count (150 - 400 x10 3/uL) 304 MPV (7.0 - 9.0 fL) 9.7 H Neut % (Auto) (56.0 - 77.0 %) 68.0 Lymph % (Auto) (14.0 - 32.0 %) 22.6 Evans % (Auto) (4.8 - 9.0 %) 6.7 Eos % (Auto) (0.3 - 3.7 %) 1.8 Baso % (Auto) (0.0 - 2.0 %) 0.3 Neut # (Auto) (2.0 - 7.6 x10 3/uL) 8.36 H Lymph # (Auto) (1.0 - 3.8 x10 3/uL) 2.79 Evans # (Auto) (0.1 - 0.8 x10 3/uL) 0.83 H Eos # (Auto) (0.0 - 0.2 x10 3/uL) 0.22 H Baso # (Auto) (0.0 - 0.2 x10 3/uL) 0.04 Abs Immat Gran (auto) (0.00 - 0.03 x10 3/uL) 0.08 H Immature Gran % (0.0 - 2.0 %) 0.6 Nucleated RBC % (0 - 0 %) 0.0 Nucleated RBCs # (Man) (0.0 - 0.1 x10 3/uL) 0.00 Treatment Prophylaxis Treatment ProphylaxisOxygen: room air Diagnosis, Assessment PlanProblem List/A P: 1. Acute cholangitis 2. Elevated LFTs 3. Liver abscess 4. Failure to thrive Free Text DxA P NotesFree text DxA P notes:Assessment - Acute Cholangitis/Cholelithiasis with distended gallbladder status post IR drainage of gallbladder/liver abscess- Acute stroke/Small focus of subacute ischemia in the left guo radiata.- Intraheptic abscess with Fistula to gallbaldder.- s/p IR drainage of liver abscess and gallbladder, drainage bilious today in IR drain, C tube bilious/bloody.- Superficial venous thrombosis of the right the left basilic vein.- Large amount of stool within the rectum.- Elevated LFTs and Bilirubin due to Possible Acute Chloangitis.- Elevated Troponin could be demand Ischemia.- Abd pain and N/V/Confusion- ARELY.- Hyperglycemia.- Sepsis; tachycardia, Bcx Gram neg rods- HX of HTN/DM type II/HLD and CAD s/p stent. Plan Repeat CT abdomen with IV contrast Status post IV Zosyn. Now on IV ceftriaxone and IV Flagyl for liver abscess, tentative plan for 4 weeks of antibiotics Cholestatic pattern, CBD normal on ultrasound, MRCP showed no evidence of choledocholithiasis, large fluid collection within liver secondary to gallbladder perforation. On IV antibiotics with Flagyl. Status post Jolanta total mid tube placement, awaiting cultures. Drain management per surgery. Patient will need interval cholecystectomy in the future, currently controlled with cholecystostomy tube and IR drain for liver abscess, given recent stroke, recent PCI on DAPT and bacteremia, not a good operative candidate currently Continue aspirin, Plavix Discharge planning Pending peer to peer for LTAC placement Quality: Gen Med Crit Care Advanced Care Plan 65 or OlderDiscussed with: patient, surrogate decis. maker at 7165 RPT #:[id number] OF REPORTPRProgress [id number]:10:00G.[id number] for patient wpkhSHHXLIZXCDYJHB2719-42-73I52:15:42 [facility] 2023-08-24 12:50:00 [id number]3 86d9p3ig8TH9LFw03Ln zmmJkfkJknO1ymTmg4383-81-02E51:50:00 [facility] CenterEndocr[facility] Progress NoteREPORT#:[id number] REPORT STATUS: SignedREPORT INITIALIZATION DATE:08/24/23 TIME: 1250 PATIENT: MISSY CANALES UNIT #: [id number]#: [id number] ROOM/BED: 45 [address] [birth year] AGE: 68 SEX: M ATTEND: Raphael Ly MDADM AUTHOR: Agus Duckworth APRNNPREPT SERVICE DT/TIME: 08/24/23 1130* ALL edits or amendments must be made on the electronic/computer document * SubjectiveChief complaint:f/u DM IItolerating dietbg increasing Objective GeneralVS:Last Documented: Result Date Time Pulse Ox 99 08/23 1116 B/P 99/63 08/23 1116 B/P Mean 75.4 08/23 1116 Temp 99.1 08/23 1116 Pulse 81 08/23 1116 Resp 17 08/23 1116 O2 Delivery Room air 08/22 2332 O2 Flow Rate 3 08/21 0434 FiO2 40 08/07 0752 PATIENT WEIGHT: Weight (lb): 177Weight (oz): 14.61Weight (kg): 80.286 Medications:Active Meds + DC'd Last 24 HrsInsulin Glargine (Semglee) 20 UNIT DAILY SUBQ (UNV) Insulin Human Lispro (HUMALOG) 3 UNIT AC SUBQ (UNV) Lansoprazole (PREVACID) 30 MG BID PO Metronidazole (FLAGYL) 500 MG Q12H PO Ceftriaxone Sodium (ROCEPHIN) 2,000 MG Q24H IV Sodium Chloride (SODIUM CHLORIDE) 20 MLInsulin Glargine (Semglee) 15 UNIT DAILY SUBQ (DCr) Tamsulosin HCl (Flomax 0.4 mg) 0.4 MG PC BK PO Insulin Human Lispro (HUMALOG) 0 AC HS SUBQ Atorvastatin Calcium (LIPITOR) 40 MG BEDTIME PO Lactulose (LACTULOSE) 20 GM Q12HR PO Senna/Docusate Sodium (SENOKOT S) 1 TAB Q12HR PO Metoprolol Tartrate (LOPRESSOR) 50 MG Q8HR PO Clopidogrel Bisulfate (Plavix) 75 MG DAILY PO Allopurinol (ZYLOPRIM) 300 MG DAILY PO Aspirin (ASPIRIN) 81 MG DAILY PO Acetaminophen (TYLENOL) 650 MG Q6H PRN PRN PO Bisacodyl (DULCOLAX) 10 MG DAILY PRN PRN RECTAL Polyethylene Glycol (MIRALAX) 17 GM Q12H PO Dextrose/Water (DEXTROSE 10% IN WATER) 125 ML ASDIR PRN IV (CKD) Dextrose/Water (DEXTROSE 10% IN WATER) 250 ML ASDIR PRN IV (CKD) Glucagon (GLUCAGON) 1 MG ASDIR PRN IM Sodium Chloride (SODIUM CHLORIDE 0.9%) 250 ML BOLUS PRN IV Latanoprost (XALATAN 2.5 ML OPHTH SOLN) 1 DROP BEDTIME EACH EYE Timolol Maleate (TIMOPTIC 0.5% 5 ML OPHTH SOLN) 1 DROP BID EACH EYE Brimonidine Tartrate (Alphagan-P 0.2% 5 ML OPHTH SOLN) 1 DROP Q8HR EACH EYE Hydralazine HCl (APRESOLINE) 10 MG Q6H PRN PRN IV Ondansetron HCl (ZOFRAN) 4 MG Q4H PRN PRN IV Dietitian nutrition assessmentThe data set between the solid lines has been imported from the dietitian's assessment. BMI Calculated: 27.7Nutrition related diagnosis: OverweightNutrition diagnosis details: BMI 25-29.9Nutrition problem: Inadequate oral intakeNutrition etiology: PT LETHARGIC /SWALLOWING Nutrition signs and symptoms: ENTERAL NUTRITION TO MEET , ENERGY NEEDS , (DIET ADVANCED TO PUREED AND, TOLERATED.)Nutrition prescription: 1. RECOMMEND PUREED CCD5 DIET. 2. PROVIDE GLUCERNA TID WITH MEALS. 3. MONITOR PO, WT, LABS, BM.Dietitian name: Lucía Torres, DIETAssessment completed: 08/20/23 Physical ExamGeneral appearance: alert, awakeHEENT: atraumatic, clear cornea, normocephalicNeck: suppleCardiovascular: regular rate rhythmRespiratory: on oxygenAbdomen: softGenitourinary: not indicatedExtremities: warmNeuro/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: alertSkin: warmFindings/data:Laboratory Tests: 08/23 08/23 08/22 08/22 1114 0649 1905 1653 Chemistry POC Glucose (70 - 110 MG/DL) 246 H 203 H 273 H 249 H Laboratory Tests: 08/23 08/23 08/22 08/22 1114 0649 1905 1653 Chemistry POC Glucose (70 - 110 MG/DL) 246 H 203 H 273 H 249 H Diagnosis, Assessment PlanFree Text A P:1.DM ZJCmjM1v 8.2adjust Lantus restart Humalog monitor glucose diabetic diet DC Plan: Lantus, Humalog, follow at next available appointment. 2.Abnormal thyroid functions 08/06 TSH 0.07 FT4 1 recheck in a couple of days 3.Suspected ischemic strokeMRI brain without contrastEchocardiogramTelemetryneurology following 4.Coronary artery diseasePCI on July 03, 2023Echocardiogram preserved LVEFdual antiplateletscardiology following 5. Elevated LFTsGI following 6.MRCP with complex cystic fluid collectionpost drainage surgery following at 1357 at 9256 RPT #:[id number] OF REPORTPRProgress mday8478-93-94N37:50:00G.NNQZ09520910-8786LDVlebtlrxv for patient tfdnUZWDGBMTHQFABB6291-94-99Z87:57:45 [facility] 2023-08-24 09:47:00 [id number]/JwEq5XRssIxKoZ RiAvxXSbx3RI+0xqvZs W53QPn7MYclJNBcPl0816-93-13P38:47:00 [facility])Cardiology Progress NoteREPORT#:[id number] REPORT STATUS: SignedREPORT INITIALIZATION DATE:08/24/23 TIME: 946 PATIENT: MISSY CANALES UNIT #: [id number]#: [id number] [address] [birth year] AGE: 68 SEX: M ATTEND: Raphael Ly MDADM AUTHOR: Esther BucknerCNPREPT SERVICE DT/TIME: 08/24/23946* ALL edits or amendments must be made on the electronic/computer document * SubjectivePatient reports:No: complaints. Objective GeneralVS/I O:Vital Signs: Date Time Temp Pulse Resp B/P B/P Pulse O2 O2 Flow FiO2 Mean Ox Delivery Rate 08/23 0650 37.3 85 17 124/71 88.9 97 08/23 0340 37.3 107 16 123/69 87.3 97 08/22 2332 37.7 95 18 125/71 88.6 97 Room air 08/22 1904 36.7 98 18 102/60 74.1 95 Room air 08/22 1654 37.0 84 17 127/85 99.0 98 08/22 1153 37.4 75 17 138/83 101.0 98 PATIENT WEIGHT: Weight (lb): 177Weight (oz): 14.61Weight (kg): 80.286 Medications:Active Meds + DC'd Last 24 HrsLansoprazole (PREVACID) 30 MG BID PO Pantoprazole (PROTONIX) 40 MG BID@0600,1800 PO (DC) Lansoprazole (PREVACID) 30 MG DAILY 0600 FEED-TUBE (DC) Metronidazole (FLAGYL) 500 MG Q12H PO Ceftriaxone Sodium (ROCEPHIN) 2,000 MG Q24H IV Sodium Chloride (SODIUM CHLORIDE) 20 MLInsulin Glargine (Semglee) 15 UNIT DAILY SUBQ Tamsulosin HCl (Flomax 0.4 mg) 0.4 MG PC BK PO Insulin Human Lispro (HUMALOG) 0 AC HS SUBQ Atorvastatin Calcium (LIPITOR) 40 MG BEDTIME PO Lactulose (LACTULOSE) 20 GM Q12HR PO Senna/Docusate Sodium (SENOKOT S) 1 TAB Q12HR PO Metoprolol Tartrate (LOPRESSOR) 50 MG Q8HR PO Clopidogrel Bisulfate (Plavix) 75 MG DAILY PO Allopurinol (ZYLOPRIM) 300 MG DAILY PO Aspirin (ASPIRIN) 81 MG DAILY PO Acetaminophen (TYLENOL) 650 MG Q6H PRN PRN PO Bisacodyl (DULCOLAX) 10 MG DAILY PRN PRN RECTAL Polyethylene Glycol (MIRALAX) 17 GM Q12H PO Dextrose/Water (DEXTROSE 10% IN WATER) 125 ML ASDIR PRN IV (CKD) Dextrose/Water (DEXTROSE 10% IN WATER) 250 ML ASDIR PRN IV (CKD) Glucagon (GLUCAGON) 1 MG ASDIR PRN IM Sodium Chloride (SODIUM CHLORIDE 0.9%) 250 ML BOLUS PRN IV Latanoprost (XALATAN 2.5 ML OPHTH SOLN) 1 DROP BEDTIME EACH EYE Timolol Maleate (TIMOPTIC 0.5% 5 ML OPHTH SOLN) 1 DROP BID EACH EYE Brimonidine Tartrate (Alphagan-P 0.2% 5 ML OPHTH SOLN) 1 DROP Q8HR EACH EYE Hydralazine HCl (APRESOLINE) 10 MG Q6H PRN PRN IV Ondansetron HCl (ZOFRAN) 4 MG Q4H PRN PRN IV Physical ExamGeneral appearance: awake, no acute distressENT: normal noseNeck: non-tenderCardiovascular: CV assessment: ectopy, irregular rhythm, tachycardiaRespiratory: decreased breath sounds, on oxygen, no distressAbdomen: softGenitourinary: no urinary catheterUpper extremity: UE assessment: normal capillary refill, normal temperatureLower extremity: LE assessment: no edemaMusculoskeletal: decreased ROMNeuro/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: right hemiparesisSkin: dryPsychiatry: normal affect, normal mood ResultsFindings/Data:Laboratory Tests 08/23 08/22 08/22 08/22 0649 1905 1653 1152 Chemistry POC Glucose (70 - 110 MG/DL) 203 H 273 H 249 H 197 H Results: no new labs, vital signs reviewed, rhythm personally rev'dTelemetry Interpretation:Sinus rhythm with PACs and PVCs Diagnosis, Assessment PlanPlan discussed with: patient, spouse/partner, son, collaborating MD, nurse Free Text DxA P NotesFree Text DxA P Notes:1. Coronary artery disease s/p recent PCI/TERESA to diagonal artery* Troponin trend is flat* Hx of CABG (2000)* s/p stent placement to diagonal artery on 07/02/23. Still need staged PCI to RCA. * Continue Plavix and aspirin - do not stop Plavix d/t risk of stent thrombosis* Echocardiogram preserved LVEF.* PPI: lansoprazole 30 mg BID 2. Elevated LFTs/acute cholecystitis/liver abscess* s/p cholecystostomy tube placement. * GI on board* ID on board managing antibiotic 3. AMS: MRI brain showed small subacute ischemia in the L coronary radiata * MRI of the brain unchanged 4. Tachycardia with PVCs and PACs* Continue metoprolol 50 mg every 8 hours. * continuous telemetry monitoring* Telemetry with frequent PVCs and PACs. 5. Anemia* hgb 6.3 up to 8.9->8.6* s/p 2 units PRBCs 08/20/23* RN reported black stool last night* GI on board D/w . Patient is waiting for placement. Medical decision making by Dr. Daniel. at 1559 at 0822 RPT #:[id number] OF REPORTPRProgress ptbu3168-97-33D84:47:00G.[id number] for patient xffqFFOKAEVRSJDVFG9255-45-90J61:00:11 [facility] 2023-08-23 19:28:00 [id number]cKuS ffCwGscTvkAjnEGifKq umODO2FK9yjAlLCxY5248-98-85I61:28:00 [facility] ([facility])Palliative Care Progress NoteREPORT#:[id number] REPORT STATUS: SignedREPORT INITIALIZATION DATE:08/23/23 TIME: 1927 PATIENT: MISSY CANALES UNIT #: [id number]#: [id number] [address] [birth year] AGE: 68 SEX: M ATTEND: Raphael Ly MDADM AUTHOR: Glenny Mclaughlin FNPREPT SERVICE DT/TIME: 08/23/231927* ALL edits or amendments must be made on the electronic/computer document * Objective GeneralVS:Last Documented: Result Date Time Pulse Ox 95 08/23 1903 B/P 102/60 08/22 190 B/P Mean 74.1 08/22 190 O2 Delivery Room air 08/23 1903 Temp 36.7 08/22 190 Pulse 98 08/22 1904 Resp 18 08/23 1903 O2 Flow Rate 3 08/21 0434 FiO2 40 08/07 0752 PATIENT WEIGHT: Weight (lb): 177Weight (oz): 14.61Weight (kg): 80.286 Diagnosis, Assessment PlanHospital course to date:Patient seen and examined. Spoke with Ms. Canales regarding goals of care including plan to possibly transfer to skill nursing facility versus palliative care versus hospice. She stated, "she needs additional time and does not want to have discussion right now" I will continue to support the patient and family during this difficult time. Thank you for allowing me to assist in the care of Mr. Missy Canales. Time spent - 1730 - 1800 - 30 minutes. 08-22-2023 Patient seen and examined. Spoke with Ms. Canales regarding goals of care including plan to possibly transfer to skill nursing facility versus palliative care versus hospice. She stated, "I will check out the senior care facilities today and need additional time". I will continue to support the patient and family during this difficult time. Thank you for allowing me to assist in the care of Mr. Missy Canales. Time spent - 1130 - 1200 - 30 minutes. 08-23-2023 Patient seen and examined. Spoke with Ms. Canales at bedside regarding goals of care including plan to possibly transfer to skill nursing facility versus palliative care versus hospice. She stated, "He is going to [facility] then to rehab". Explained the benefits of oupatient palliative care and discussed advance directives including living will and MPOA if he is oriented to make decisions. No changes at this time. I will continue to support the patient and family during this difficult time. Thank you for allowing me to assist in the care of Mr. Missy Canales. Time spent - 1730 - 1800 - 30 minutes. Quality Current MedicationsCurrent medication review:I attest that the foregoing medication list in the medical record is true, accurate, and complete to the best of my knowledge. Advanced Care Plan 65 or OlderDiscussed with: patient, surrogate decis. maker at 2224 RPT #:[id number] OF REPORTPRProgress deyt6264-74-79M28:28:00G.[id number] for patient jeizPGGAFRCNPWZNDC1992-42-61I97:24:49 [facility] 2023-08-23 18:35:00 [id number]77A7 77QombfN4cBnbFSbQ+t rIdFcu+5Ldvgvb92g6462-40-88K91:35:00 [facility] ([facility])Infectious Dis. Progress NoteREPORT#:[id number] REPORT STATUS: SignedREPORT INITIALIZATION DATE:08/23/23 TIME: 1834 PATIENT: MISSY CANALES UNIT #: [id number]#: [id number] [address] [birth year] AGE: 68 SEX: M ATTEND: Raphael Ly MDA AUTHOR: Henrry Heredia MDREPT SERVICE DT/TIME: 08/23/231834* ALL edits or amendments must be made on the electronic/computer document * SubjectiveChief complaint:Follow-up on bacteremia, hepatic abscess, cholecystitis, aspiration pneumoniaHPI:Review of systems is somewhat limited due to patient's limited responses. Nonetheless, he appears comfortable and gestures that he feels okay. present at bedside. No major overnight events. Objective GeneralVS/I O:Vital SignsDate Temp Pulse Resp B/P B/P Mean Pulse Ox ZlH388/27-08/22 98.1-99.3 75-106 16-18 102-146/60-86 74.1-104.8 95-100 Last Documented: Result Date Time Pulse Ox 95 08/22 1904 B/P 102/60 08/22 1904 B/P Mean 74.1 08/22 1904 O2 Delivery Room air 08/22 190 Temp 98.1 08/22 1904 Pulse 98 08/22 1904 Resp 18 08/22 1904 O2 Flow Rate 3 08/21 0434 FiO2 40 08/07 0752 Vital Signs: Date Time Temp Pulse Resp B/P B/P Pulse O2 O2 Flow FiO2 Mean Ox Delivery Rate 08/22 1904 98.1 98 18 102/60 74.1 95 Room air 08/22 1654 98.6 84 17 127/85 99.0 98 08/22 1153 99.3 75 17 138/83 101.0 98 08/22 0656 99.3 106 17 146/70 95.2 96 08/22 0400 91 16 142/86 104.8 97 Room air 08/21 2329 99.1 94 16 140/83 101.9 100 Room air 24 hour I O ending at 0700: 08/22 0700 08/21 1900 Intake Total Output Total 90 Balance -90 Output, 90 Drainage PATIENT WEIGHT: Weight (lb): 177Weight (oz): 14.61Weight (kg): 80.286 Physical ExamGeneral appearance: alert, awake, no acute distressWound/incision: Location:cholecystostomy tube and RUQ drain in placeCardiovascular: regular rate rhythm, no murmurRespiratory: clear to auscultation, symmetric expansionAbdomen: non-tender, soft, no distention, percutaneous drains in place in RUQExtremities: no cyanosis, no edemaNeuro/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 Canales is a 68-year-old male with PMH of HTN, DMII, CAD s/p stent who came to [facility] initially with N/V and abdominal pain. His pain was started 2 days prior to admission. His work up showed elevated LFTs, bilirubin, troponin. His US abdomen showed cholelithiasis with distended gallbladder including material at the gallbladder neck concerning for impacted stone. Patient started on empiric antibiotics and had cultures done with blood culture showing gram negative bacilli. Patient has been febrile and tachycardic while here. GI and general surgery are consulted. Patient was found to have acute cholecystitis with a liver abscess. He had a drain in the gallbladder and in the abscess placed. Blood culture eventually grew Citrobacter and so did the abscess. *Fever--Recurrent after improvement--UA via straight cath (-)--Covid (-)--Flu (-)--F/U CT A/P, decreased liver absces; (+) LLL infiltrates c/w PNA*PNA--CT LLL infiltrates c/w aspiration*Bacteremia--Citrobacter--Source: Biliary*Liver abscess--MRCP showed 4.6 x 3.6 x 3.0 thick walled cystic lesion/fluid collection liver abutting GB fossa--S/P IR drain 08/05, cx Citrobacter*Acute cholecystitis--S/P IR placed cholecystotomy tube 3.11, cx Citrobacter*Acute stroke--MRI (+) subacute Left guo radiata--CTA neck (+) high grade stenosis*ARELY*DM2*HTN*CAD Plan: -Patient has had > 7 days of piperacillin-tazobactam to cover for aspiration pneumonia.-Antibiotic treatment transitioned back to ceftriaxone and metronidazole on 08/22/2023 for coverage of liver abscess.-Patient will need chcf antibiotics for liver abscess.-Tentatively, would plan on a 4-week course (ending 09/01/2023).-However, patient will need a f/u CT to ensure resolution of abcess prior to stopping antibiotics. Discussed with at bedside. at 2110 RPT #:[id number] OF REPORTPRProgress cttm4396-98-28G64:35:00G.OFJN88881936-9051WCQjrczgmmy for patient mlxsEGKTRIPTPRLQKL4823-06-68N59:11:10 [facility] 2023-08-23 13:04:00 [id number]/I49isjntnkO0g 80/jDh67DQqN/UXwrGB Uih1l8EVFEo3AdLdp0761-93-52D77:04:00 [facility] Progress NotREPORT#:[id number] REPORT STATUS: SignedREPORT INITIALIZATION DATE:08/23/23 TIME: 130 PATIENT: MISSY CANALES UNIT #: [id number]#: [id number] [address] [birth year] AGE: 68 SEX: M ATTEND: Raphael Ly MDADM AUTHOR: Michael Lakhani MDREPT SERVICE DT/TIME: 08/23/23 1304* ALL edits or amendments must be made on the electronic/computer document * SubjectiveChief complaint:liver abscess w/ possible gallbladder fistulastrokeHPI:S: NAEO. abd soft, cholecystostomy tube and liver abscess drain both bilious output, non-bloody, wbc 9, Tbili 0.7, still not interactive w/ AMS but tolerating PO diabetic diet w/o N,V, having BMs. PEGen: NADHEENT: normocephalic, atraumatic, anicteric sclera, SBFT in placechest; No resp distressCV: perfusing wellabd: S, NT, minimally distended, no HMS, no rebound or guarding, no previous scars noted; IR drains x2 w/ bilious output, C tube with bilious outputext; WWPneuro: AMS Objective GeneralVS/I O:Last Documented: Result Date Time Pulse Ox 98 08/22 1153 B/P 138/83 08/22 1153 B/P Mean 101.0 08/22 1153 Temp 99.3 08/22 1153 Pulse 75 08/22 1153 Resp 17 08/22 1153 O2 Delivery Room air 08/22 0400 O2 Flow Rate 3 08/21 0434 FiO2 40 08/07 0752 Vital SignsDate Temp Pulse Resp B/P B/P Mean Pulse Ox QnQ485/27-08/22 98.2-99.5 75-106 16-17 114-151/62-89 79.5-109.2 96-100 24 hour I O ending at 0700: 08/22 0700 08/21 1900 Intake Total Output Total 90 Balance -90 Output, 90 Drainage PATIENT WEIGHT: Weight (lb): 177Weight (oz): 14.61Weight (kg): 80.286 Medications:Active Meds + DC'd Last 24 HrsLansoprazole (PREVACID) 30 MG BID PO Pantoprazole (PROTONIX) 40 MG BID@0600,1800 PO (DC) Lansoprazole (PREVACID) 30 MG DAILY 0600 FEED-TUBE (DC) Metronidazole (FLAGYL) 500 MG Q12H PO Ceftriaxone Sodium (ROCEPHIN) 2,000 MG Q24H IV Sodium Chloride (SODIUM CHLORIDE) 20 MLInsulin Glargine (Semglee) 15 UNIT DAILY SUBQ Tamsulosin HCl (Flomax 0.4 mg) 0.4 MG PC BK PO Insulin Human Lispro (HUMALOG) 0 AC HS SUBQ Atorvastatin Calcium (LIPITOR) 40 MG BEDTIME PO Lactulose (LACTULOSE) 20 GM Q12HR PO Senna/Docusate Sodium (SENOKOT S) 1 TAB Q12HR PO Metoprolol Tartrate (LOPRESSOR) 50 MG Q8HR PO Clopidogrel Bisulfate (Plavix) 75 MG DAILY PO Allopurinol (ZYLOPRIM) 300 MG DAILY PO Aspirin (ASPIRIN) 81 MG DAILY PO Piperacillin Sod/Tazobactam Sod (ZOSYN 3.375GM) 3.375 GM Q8H IV (DC) Sodium Chloride (SODIUM CHLORIDE 0.9% 100 ML) 100 MLAcetaminophen (TYLENOL) 650 MG Q6H PRN PRN PO Bisacodyl (DULCOLAX) 10 MG DAILY PRN PRN RECTAL Polyethylene Glycol (MIRALAX) 17 GM Q12H PO Dextrose/Water (DEXTROSE 10% IN WATER) 125 ML ASDIR PRN IV (CKD) Dextrose/Water (DEXTROSE 10% IN WATER) 250 ML ASDIR PRN IV (CKD) Glucagon (GLUCAGON) 1 MG ASDIR PRN IM Sodium Chloride (SODIUM CHLORIDE 0.9%) 250 ML BOLUS PRN IV Latanoprost (XALATAN 2.5 ML OPHTH SOLN) 1 DROP BEDTIME EACH EYE Timolol Maleate (TIMOPTIC 0.5% 5 ML OPHTH SOLN) 1 DROP BID EACH EYE Brimonidine Tartrate (Alphagan-P 0.2% 5 ML OPHTH SOLN) 1 DROP Q8HR EACH EYE Hydralazine HCl (APRESOLINE) 10 MG Q6H PRN PRN IV Ondansetron HCl (ZOFRAN) 4 MG Q4H PRN PRN IV Dietitian nutrition assessmentThe data set between the solid lines has been imported from the dietitian's assessment. BMI Calculated: 27.7Nutrition related diagnosis: OverweightNutrition diagnosis details: BMI 25-29.9Nutrition problem: Inadequate oral intakeNutrition etiology: PT LETHARGIC /SWALLOWING Nutrition signs and symptoms: ENTERAL NUTRITION TO MEET , ENERGY NEEDS , (DIET ADVANCED TO PUREED AND, TOLERATED.)Nutrition prescription: 1. RECOMMEND PUREED CCD5 DIET. 2. PROVIDE GLUCERNA TID WITH MEALS. 3. 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 now w/ tachycardia, fevers, and bacteremia, w/ worsening AMS and supsected ischemic stroke-s/p IR drainage of liver abscess and gallbladder, both now bilious; last CT 08/13, liver abscess appears much improved-recommend repeat CT A/P prior to discharge w/ IV contrast to assess progress ofliver abscesss-cont IV abx, ID on board, appreciate recs-endocrine consulted for hyperglycemia, which continues to be elevated, appreciate input-neurology consulted for AMS, stroke workup, r/o other causes, appreciate input-cardiology consulted, appreciate input-cont diabetic diet as tolerated -pt will need interval cholecystectomy in the future, currently controlled with cholecystostomy tube and IR drain for liver abscess, given recent stroke, recentPCI on DAPT and bacteremia, not a good operative candidate currentlydispo: cont floor care at 1310 RPT #:[id number] OF REPORTPRProgress pgvd4044-93-09C36:04:00G.[id number] for patient brugDLPJPQAFQSEZTQ3803-46-64C91:13:01 [facility] 2023-08-23 12:51:00 [id number]/NJdOiAoQL0BKD6lW9pqRPu Rm3uK5OQrjSVOtjQGzx DzZoJmcLQuuA3VPSz1043-57-88Z25:51:624511-0186 [place] [address] PATIENT NAME: MISSY CANALES ADMIT DATE: 08/03/23ACCOUNT NO: [id number] ROOM NO: G.[id number] AGE: 68 REPORT TYPE: eELECTROCARDIOGRAM REPORT SEX: M ADMITTING PHYSICIAN:Raphael Ly MD ATTENDING PHYSICIAN:Raphael Ly MD Order:[id number] Reason : tachycardia, PVCS Test Date/Time Stamp:SunAug 23 2023 12:51:33Blood Pressure : / mmHGVent. Rate : 116 BPM Atrial Rate : 133 BPM P-R Int : 140 ms QRS Dur : 090 ms QT Int : 352 ms P-R-T Axes : 076 071 -10 degrees QTc Int : 489 ms Sinus tachycardia with frequent premature ventricular complexesAbnormal QRS-T angle, consider primary T wave abnormalityAbnormal ECGWhen compared with ECG of 23-AUG-2023 12:50,Significant changes have occurredConfirmed by MD ZENDEJAS GERARD ([id number]) on 08/23/2023 1:43:28 PM Referred By: Raphael Ly Confirmed by:MILEY ZENDEJAS MD at 1343 PATIENT NAME: MISSY CANALES .[id number] e for patient kxsyBYJZYUHMCPBAMD2354-01-07R46:44:01 [facility] 2023-08-23 12:44:00 [id number]/rtgTczOW7eCbRiGONQVZ7F1RQb 7k8sI2ssYKJlxs0plor 9I+fHBmenrvRE+W3V0236-70-50K51:44:00 [facility] ([facility]ITALCardiology Progress NoteREPORT#:[id number] REPORT STATUS: SignedREPORT INITIALIZATION DATE:08/23/23 TIME: 1243 PATIENT: MISSY CANALES UNIT #: [id number]#: [id number] [address] [birth year] AGE: 68 SEX: M ATTEND: Raphael Ly MDADM AUTHOR: Esther BucknerPREPT SERVICE DT/TIME: 08/23/23 1244* ALL edits or amendments must be made on the electronic/computer document * SubjectiveComments:Tachycardic Objective GeneralVS/I O:24 hour I O ending at 0700: 08/22 0700 08/21 1900 Intake Total Output Total 90 Balance -90 Output, 90 Drainage Vital Signs: Date Time Temp Pulse Resp B/P B/P Pulse O2 O2 Flow FiO2 Mean Ox Delivery Rate 08/22 1153 37.4 75 17 138/83 101.0 98 08/22 0656 37.4 106 17 146/70 95.2 96 08/22 0400 91 16 142/86 104.8 97 Room air 08/21 2329 37.3 94 16 140/83 101.9 100 Room air 08/21 1849 37.5 91 16 151/89 109.2 97 Room air 08/21 1634 36.8 99 16 114/62 79.5 96 PATIENT WEIGHT: Weight (lb): 177Weight (oz): 14.61Weight (kg): 80.286 Medications:Active Meds + DC'd Last 24 HrsPantoprazole (PROTONIX) 40 MG BID@0600,1800 PO Lansoprazole (PREVACID) 30 MG DAILY 0600 FEED-TUBE (DC) Metronidazole (FLAGYL) 500 MG Q12H PO Ceftriaxone Sodium (ROCEPHIN) 2,000 MG Q24H IV Sodium Chloride (SODIUM CHLORIDE) 20 MLInsulin Glargine (Semglee) 15 UNIT DAILY SUBQ Furosemide (LASIX 20MG INJ) 20 MG BLOOD-DOSE BETWEEN IV (DC) Tamsulosin HCl (Flomax 0.4 mg) 0.4 MG PC BK PO Insulin Human Lispro (HUMALOG) 0 AC HS SUBQ Atorvastatin Calcium (LIPITOR) 40 MG BEDTIME PO Lactulose (LACTULOSE) 20 GM Q12HR PO Senna/Docusate Sodium (SENOKOT S) 1 TAB Q12HR PO Metoprolol Tartrate (LOPRESSOR) 50 MG Q8HR PO Clopidogrel Bisulfate (Plavix) 75 MG DAILY PO Allopurinol (ZYLOPRIM) 300 MG DAILY PO Aspirin (ASPIRIN) 81 MG DAILY PO Piperacillin Sod/Tazobactam Sod (ZOSYN 3.375GM) 3.375 GM Q8H IV (DC) Sodium Chloride (SODIUM CHLORIDE 0.9% 100 ML) 100 MLAcetaminophen (TYLENOL) 650 MG Q6H PRN PRN PO Bisacodyl (DULCOLAX) 10 MG DAILY PRN PRN RECTAL Polyethylene Glycol (MIRALAX) 17 GM Q12H PO Dextrose/Water (DEXTROSE 10% IN WATER) 125 ML ASDIR PRN IV (CKD) Dextrose/Water (DEXTROSE 10% IN WATER) 250 ML ASDIR PRN IV (CKD) Glucagon (GLUCAGON) 1 MG ASDIR PRN IM Sodium Chloride (SODIUM CHLORIDE 0.9%) 250 ML BOLUS PRN IV Latanoprost (XALATAN 2.5 ML OPHTH SOLN) 1 DROP BEDTIME EACH EYE Timolol Maleate (TIMOPTIC 0.5% 5 ML OPHTH SOLN) 1 DROP BID EACH EYE Brimonidine Tartrate (Alphagan-P 0.2% 5 ML OPHTH SOLN) 1 DROP Q8HR EACH EYE Hydralazine HCl (APRESOLINE) 10 MG Q6H PRN PRN IV Ondansetron HCl (ZOFRAN) 4 MG Q4H PRN PRN IV Physical ExamGeneral appearance: alert, awake, no acute distressENT: normal noseNeck: non-tenderCardiovascular: CV assessment: ectopy, irregular rhythm, tachycardiaRespiratory: decreased breath sounds, on oxygen, no distressAbdomen: softGenitourinary: no urinary catheterUpper extremity: UE assessment: normal capillary refill, normal temperatureLower extremity: LE assessment: no edemaMusculoskeletal: decreased ROMNeuro/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: right hemiparesisSkin: dryPsychiatry: normal affect, normal mood ResultsFindings/Data:Laboratory Tests 08/22 08/22 08/21 08/21 1152 0657 1850 1633 Chemistry POC Glucose (70 - 110 MG/DL) 197 H 179 H 229 H 214 H Results: no new labs, rhythm personally rev'dTelemetry Interpretation:sinus tachycardia with lots of PVC, and PACs. Diagnosis, Assessment PlanPlan discussed with: patient, spouse/partner, nurse Free Text DxA P NotesFree Text DxA P Notes:1. Coronary artery disease s/p recent PCI/TERESA to diagonal artery* Troponin trend is flat* Hx of CABG (2000)* s/p stent placement to diagonal artery on 07/02/23. Still need staged PCI to RCA. * Continue Plavix and aspirin - do not stop Plavix d/t risk of stent thrombosis* Echocardiogram preserved LVEF.* add lansoprazole 30 mg daily 2. Elevated LFTs/acute cholecystitis/liver abscess* s/p cholecystostomy tube placement. * GI on board* ID on board managing antibiotic 3. AMS: MRI brain showed small subacute ischemia in the L coronary radiata * MRI of the brain unchanged 4. Tachycardia with PVCs and PACs* Continue metoprolol 50 mg every 8 hours. * continuous telemetry monitoring* Telemetry with frequent PVCs and PACs. Will check Mag and K. Repeat EKG 5. Anemia* hgb 6.3 up to 8.9->8.6* s/p 2 units PRBCs 08/20/23* RN reported black stool last night* GI on board D/w . Patient is waiting for placement. Medical decision making by Dr. Daniel. at 1246 at 0822 RPT #:[id number] OF REPORTPRProgress [id number]:44:00G.[id number] for patient eizaSWRPRHTUZOKPAD1972-24-98H85:47:13 [facility] 2023-08-23 09:59:00 [id number]c+M 8BJHFk/MrYgzSsLNyQa LhbnccTDQ/9kYJV4N5467-27-52B94:59:00 [facility] ([facility]ospitalist Discharge SummaryREPORT#:[id number] REPORT STATUS: SignedREPORT INITIALIZATION DATE:08/23/23 TIME: 958 PATIENT: MISSY CANALES UNIT #: [id number]#: [id number] [address] AGE: 68 SEX: M ATTEND: Raphael Ly AUTHOR: Clyde Lares SERVICE DT/TIME: 08/23/23 0959* ALL edits or amendments must be made on the electronic/computer document * General InformationProblem List/A P: 1. Acute cholangitis 2. Elevated LFTs 3. Liver abscess 4. Failure to thrive Discharge date: 08/23/23Discharge diagnosis:Liver abscessHospital course:68-year-old male admitted with abdominal pain nausea and vomiting, patient with a history of CAD with recent stent placement to diagonal artery on 07/02/23. Stillneed staged PCI to RCA, presented to the emergency room with abdominal pain, nausea and vomiting. Patient was noted with a liver abscess, seen by general surgery and GI, drain was placed by IR, has been tolerating antibiotics well. Appetite has been slowly improving, will need aggressive physical therapy, outpatient therapy and nutrition therapy. Patient has 2 drains to the liver, will need long-term IV antibiotics, patient is awaiting placement to possible LTAC for aggressive management and close follow-up with cardiology and GI. Wifeis at the bedside and all concerns addressed Med Rec Med RecDischarge meds:Continue taking these medications:ASPIRIN (ASPIRIN) 81 MG TAB.CHEW 81 MILLIGRAM ORAL DAILY. CLOPIDOGREL (PLAVIX) 75 MG TAB 75 MILLIGRAM ORAL DAILY. ALLOPURINOL (ZYLOPRIM) 300 MG TAB 300 MILLIGRAM ORAL DAILY. ATORVASTATIN (LIPITOR) 40 MG TAB 40 MILLIGRAM ORAL BEDTIME. BRIMONIDINE (ALPHAGAN P 0.1% OPHTH SOLN) 0.1 % OPHTH.SOLN 1 DROPS EACH EYE EVERY 8 HOURS. DORZOLAMIDE/TIMOLOL (COSOPT 2%-0.5% OPHTH) 22.3 MG-6.8 MG/ML OPHTH.SOLN 1 DROPS EACH EYE TWICE DAILY. FINASTERIDE (PROSCAR) 5 MG TAB 5 MILLIGRAM ORAL DAILY. LATANOPROST (XALATAN 0.005% OPHTH SOLN) 0.005 % OPHTH.SOLN 1 DROPS EACH EYE BEDTIME. LOSARTAN (COZAAR) 25 MG TAB 25 MILLIGRAM ORAL DAILY. METOPROLOL TARTRATE (LOPRESSOR) 50 MG TAB 50 MILLIGRAM ORAL TWICE DAILY. TAMSULOSIN ER (FLOMAX) 0.4 MG CAP.SR.24H 0.8 MILLIGRAM ORAL DAILY. GLIMEPIRIDE (AMARYL) 2 MG TAB 2 MILLIGRAM ORAL WITH BREAKFAST. DAPAGLIFLOZIN/metFORMIN 5/500 MG (XIGDUO XR 5/500 MG) 5 MG-500 MG TAB.ER.24H 1 TABLET ORAL DAILY. Start taking the following new medications:PANTOPRAZOLE DR (PROTONIX) 40 MG TAB.DR 40 MILLIGRAM ORAL TWICE DAILY. Days = 30 Qty = 30 No Refills Discharge Instructions PCPDischarge to: [facility])Additional Discharge Routines: Attending Follow-Up, Reactor Operator Follow-UpDiet: Resume Home Diet/Feeds Follow-up AppointmentsAttending Physician: Attending Physician: Raphael Ly MD Kxxrdcfbyz provider 1: Provider 1: Lisa Daniel MD Specialty: CardiologyInterventional Ootzpjfvxt provider 2: Provider 2: Lisa Cancino MD Specialty: Gastroenterology Quality: Discharge Advanced Care Plan 65 or OlderDiscussed with: patient, surrogate decis. maker Current MedicationsCurrent medication review:I attest that the foregoing medication list in the medical record is true, accurate, and complete to the best of my knowledge. at 1001 RPT #:[id number] OF REPORTDSDischarge pqonpqs5358-19-60R65:59:00G.[id number] for patient sxjiYLBGRATKQDHJXR8228-68-09Q71:02:12 [facility] 2023-08-22 18:24:00 [id number]+tvku8YK mARdFeJOhuYqrlq2bL3 KkmWUWqjZv/hOiPJm1222-00-19K62:24:00 [facility] Progress NoteREPORT#:[id number] REPORT STATUS: SignedREPORT INITIALIZATION DATE:08/22/23 TIME: 1823 PATIENT: MISSY CANALES UNIT #: [id number]#: [id number] [address] [birth year] AGE: 68 SEX: M ATTEND: Raphael Ly MDADM AUTHOR: Glenny Mclaughlin FNPREPT SERVICE DT/TIME: 08/22/231823* ALL edits or amendments must be made on the electronic/computer document * Objective GeneralVS:Last Documented: Result Date Time Pulse Ox 96 08/21 1634 B/P 114/62 08/21 1634 B/P Mean 79.5 08/21 1634 Temp 36.8 08/21 1634 Pulse 99 08/21 1634 Resp 16 08/21 1634 O2 Delivery Nasal cannula 08/21 0434 O2 Flow Rate 3 08/21 0434 FiO2 40 08/07 0752 PATIENT WEIGHT: Weight (lb): 177Weight (oz): 14.61Weight (kg): 80.286 Diagnosis, Assessment PlanHospital course to date:Patient seen and examined. Spoke with Ms. Canales regarding goals of care including plan to possibly transfer to skill nursing facility versus palliative care versus hospice. She stated, "she needs additional time and does not want to have discussion right now" I will continue to support the patient and family during this difficult time. Thank you for allowing me to assist in the care of Mr. Missy Canales. Time spent - 1730 - 1800 - 30 minutes. 08-22-2023 Patient seen and examined. Spoke with Ms. Canales regarding goals of care including plan to possibly transfer to skill nursing facility versus palliative care versus hospice. She stated, "I will check out the senior care facilities today and need additional time". I will continue to support the patient and family during this difficult time. Thank you for allowing me to assist in the care of Mr. Missy Canales. Time spent - 1130 - 1200 - 30 minutes. Quality Current MedicationsCurrent medication review:I attest that the foregoing medication list in the medical record is true, accurate, and complete to the best of my knowledge. Advanced Care Plan 65 or OlderDiscussed with: patient, surrogate decis. maker at 1945 [facility] #:[id number] OF REPORTPRProgress [id number]:24:00G.[id number] for patient xozhZOIRXOSUAYRKPS8017-53-57R43:45:44 [facility] 2023-08-22 15:54:00 [id number] 0b7TN38BTpL/9+Scrtk v9DaC5HlG9DgoMvPy5272-96-12I55:54:00 [facility] ([facility])Infectious Dis. Progress NoteREPORT#:[id number] REPORT STATUS: SignedREPORT INITIALIZATION DATE:08/22/23 TIME: 1553 PATIENT: MISSY CANALES UNIT #: [id number]#: [id number] [address] [birth year] AGE: 68 SEX: M ATTEND: Raphael Ly MDA AUTHOR: Henrry Heredia MDREPT SERVICE DT/TIME: 08/22/231553* ALL edits or amendments must be made on the electronic/computer document * SubjectiveChief complaint:Follow-up on bacteremia, hepatic abscess, cholecystitis, aspiration pneumoniaHPI:Review of systems is somewhat limited due to patient's limited responses. Nonetheless, he appears comfortable and gestures that he feels okay. Off oxygen. Oxygen saturation stable on room air now. present at bedside. Nomajor overnight events. Objective GeneralVS/I O:Vital SignsDate Temp Pulse Resp B/P B/P Mean Pulse Ox KiU606/26-08/21 97.5-100.8 91-121 14-17 112-145/66-8 82.6-100.6 95-100 1 Last Documented: Result Date Time Pulse Ox 100 08/21 1031 B/P 142/80 08/21 1031 B/P Mean 100.6 08/21 1031 Temp 98.6 08/21 1031 Pulse 92 08/21 1031 Resp 17 08/21 1031 O2 Delivery Nasal cannula 08/21 0434 O2 Flow Rate 3 08/21 0434 FiO2 40 08/07 0752 Vital Signs: Date Time Temp Pulse Resp B/P B/P Pulse O2 O2 Flow FiO2 Mean Ox Delivery Rate 08/21 1031 98.6 92 17 142/80 100.6 100 08/21 0727 99.0 96 15 112/68 82.6 100 08/21 0434 99.5 91 14 145/66 92.4 100 Nasal 3 cannula 08/20 2350 100.8 100 14 134/72 92.6 98 Nasal 2 cannula 08/208 99.9 121 14 137/79 98.6 95 Nasal 3 cannula 08/21 1999 Nasal 2 cannula 08/20 1713 97.5 96 134/81 98.7 97 24 hour I O ending at 0700: 08/21 0700 08/20 1900 Intake Total Output Total 1200 Balance -1200 Output, Urine 1200 PATIENT WEIGHT: Weight (lb): 177Weight (oz): 14.61Weight (kg): 80.286 Physical ExamGeneral appearance: alert, awake, no acute distressWound/incision: Location:cholecystostomy tube and RUQ drain in placeCardiovascular: tachycardia, no murmurRespiratory: clear to auscultation, symmetric expansionAbdomen: non-tender, soft, no distention, percutaneous drains in place in RUQExtremities: no cyanosis, no edemaNeuro/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 Canales is a 68-year-old male with PMH of HTN, DMII, CAD s/p stent who came to [facility] initially with N/V and abdominal pain. His pain was started 2 days prior to admission. His work up showed elevated LFTs, bilirubin, troponin. His US abdomen showed cholelithiasis with distended gallbladder including material at the gallbladder neck concerning for impacted stone. Patient started on empiric antibiotics and had cultures done with blood culture showing gram negative bacilli. Patient has been febrile and tachycardic while here. GI and general surgery are consulted. Patient was found to have acute cholecystitis with a liver abscess. He had a drain in the gallbladder and in the abscess placed. Blood culture eventually grew Citrobacter and so did the abscess. *Fever--Recurrent after improvement--UA via straight cath (-)--Covid (-)--Flu (-)--F/U CT A/P, decreased liver absces; (+) LLL infiltrates c/w PNA*PNA--CT LLL infiltrates c/w aspiration*Bacteremia--Citrobacter--Source: Biliary*Liver abscess--MRCP showed 4.6 x 3.6 x 3.0 thick walled cystic lesion/fluid collection liver abutting GB fossa--S/P IR drain 08/05, cx Citrobacter*Acute cholecystitis--S/P IR placed cholecystotomy tube 3.11, cx Citrobacter*Acute stroke--MRI (+) subacute Left guo radiata--CTA neck (+) high grade stenosis*ARELY*DM2*HTN*CAD Plan: -Patient has had > 7 days of piperacillin-tazobactam to cover for aspiration pneumonia.-Would transition back to ceftriaxone and metronidazole for coverage of liver abscess.-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 Discussed with at bedside. at 1557 RPT #:[id number] OF REPORTPRProgress tvsq1556-22-61Y38:54:00G.[id number] for patient gjjuELAVRSGBHPZNZV0113-43-30Q70:58:07 [facility] 2023-08-22 13:05:00 [id number]/anoezzlpz+gfKOlkHZv4qD IufNT1tuVoiC0FGqR8y 3J5E1TjwYzcKTDXK/2872-40-50K42:05:00 [facility] ([facility])Endocrinology Progress NoteREPORT#:[id number] REPORT STATUS: SignedREPORT INITIALIZATION DATE:08/22/23 TIME: 1305 PATIENT: MISSY CANALES UNIT #: [id number]#: [id number] [address] [birth year] AGE: 68 SEX: M ATTEND: Raphael Ly MDADM AUTHOR: Agus Duckworth APRNNPREPT SERVICE DT/TIME: 08/22/23 1130* ALL edits or amendments must be made on the electronic/computer document * SubjectiveChief complaint:f/u DM IIlabile dietpending SNF Objective GeneralVS:Last Documented: Result Date Time Pulse Ox 100 08/21 1031 B/P 142/80 08/21 1031 B/P Mean 100.6 08/21 1031 Temp 98.6 08/21 1031 Pulse 92 08/21 1031 Resp 17 08/21 1031 O2 Delivery Nasal cannula 08/21 0434 O2 Flow Rate 3 08/21 0434 FiO2 40 08/07 0752 PATIENT WEIGHT: Weight (lb): 177Weight (oz): 14.61Weight (kg): 80.286 Medications:Active Meds + DC'd Last 24 HrsLansoprazole (PREVACID) 30 MG DAILY 0600 FEED-TUBE Insulin Glargine (Semglee) 15 UNIT DAILY SUBQ Furosemide (LASIX 20MG INJ) 20 MG BLOOD-DOSE BETWEEN IV (DC) Tamsulosin HCl (Flomax 0.4 mg) 0.4 MG PC BK PO Insulin Human Lispro (HUMALOG) 0 AC HS SUBQ Atorvastatin Calcium (LIPITOR) 40 MG BEDTIME PO Lactulose (LACTULOSE) 20 GM Q12HR PO Senna/Docusate Sodium (SENOKOT S) 1 TAB Q12HR PO Metoprolol Tartrate (LOPRESSOR) 50 MG Q8HR PO Clopidogrel Bisulfate (Plavix) 75 MG DAILY PO Allopurinol (ZYLOPRIM) 300 MG DAILY PO Aspirin (ASPIRIN) 81 MG DAILY PO Piperacillin Sod/Tazobactam Sod (ZOSYN 3.375GM) 3.375 GM Q8H IV Sodium Chloride (SODIUM CHLORIDE 0.9% 100 ML) 100 MLAcetaminophen (TYLENOL) 650 MG Q6H PRN PRN PO Bisacodyl (DULCOLAX) 10 MG DAILY PRN PRN RECTAL Polyethylene Glycol (MIRALAX) 17 GM Q12H PO Dextrose/Water (DEXTROSE 10% IN WATER) 125 ML ASDIR PRN IV (CKD) Dextrose/Water (DEXTROSE 10% IN WATER) 250 ML ASDIR PRN IV (CKD) Glucagon (GLUCAGON) 1 MG ASDIR PRN IM Sodium Chloride (SODIUM CHLORIDE 0.9%) 250 ML BOLUS PRN IV Latanoprost (XALATAN 2.5 ML OPHTH SOLN) 1 DROP BEDTIME EACH EYE Timolol Maleate (TIMOPTIC 0.5% 5 ML OPHTH SOLN) 1 DROP BID EACH EYE Brimonidine Tartrate (Alphagan-P 0.2% 5 ML OPHTH SOLN) 1 DROP Q8HR EACH EYE Hydralazine HCl (APRESOLINE) 10 MG Q6H PRN PRN IV Ondansetron HCl (ZOFRAN) 4 MG Q4H PRN PRN IV Dietitian nutrition assessmentThe data set between the solid lines has been imported from the dietitian's assessment. BMI Calculated: 27.7Nutrition related diagnosis: OverweightNutrition diagnosis details: BMI 25-29.9Nutrition problem: Inadequate oral intakeNutrition etiology: PT LETHARGIC /SWALLOWING Nutrition signs and symptoms: ENTERAL NUTRITION TO MEET , ENERGY NEEDS , (DIET ADVANCED TO PUREED AND, TOLERATED.)Nutrition prescription: 1. RECOMMEND PUREED CCD5 DIET. 2. PROVIDE GLUCERNA TID WITH MEALS. 3. MONITOR PO, WT, LABS, BM.Dietitian name: Lucía Torres, DIETAssessment completed: 08/20/23 Physical ExamGeneral appearance: alert, awakeHEENT: atraumatic, clear cornea, normocephalicNeck: suppleCardiovascular: regular rate rhythmRespiratory: on oxygenAbdomen: softGenitourinary: not indicatedExtremities: warmNeuro/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: alertSkin: warmFindings/data:Laboratory Tests: 08/21 08/21 08/21 08/20 1032 4933 2989 2030Chemistry Sodium (134 - 147 mEq/L) 150 H Potassium (3.4 - 5.0 mEq/L) 3.4 Chloride (100 - 108 mEq/L) 116 H Carbon Dioxide (21 - 33 mEq/l) 29 Anion Gap (0 - 20) 9 BUN (7 - 25 mg/dL) 8 Creatinine (0.6 - 1.3 mg/dL) 0.8 Glomerular Filtr Rate (70 - 80) 95.2 H Glucose (77 - 141 mg/dL) 173 H POC Glucose (70 - 110 MG/DL) 149 H 153 H 231 H Calcium (8.0 - 10.5 mg/dL) 7.9 L Total Bilirubin (0.0 - 1.0 mg/dL) 0.70 AST (8 - 34 IUnit/L) 128 H ALT (10 - 49 IUnit/L) 79 H Total Alk Phosphatase (20 - 125 IUnit/L) 109 Total Protein (6.4 - 8.2 g/dL) 6.7 Albumin (3.4 - 5.0 g/dL) 1.60 LHematology WBC (4.5 - 11.0 x10 3/uL) 9.2 RBC (4.00 - 5.60 x10 6/uL) 2.76 L Hgb (12.5 - 16.9 g/dL) 8.6 L Hct (37.5 - 50.7 %) 26.5 L MCV (81.0 - 99.0 fL) 96.0 MCH (27.0 - 33.0 pg) 31.2 MCHC (33.0 - 37.0 g/dL) 32.5 L RDW (11.5 - 14.5 %) 17.4 H Plt Count (150 - 400 x10 3/uL) 342 MPV (7.0 - 9.0 fL) 9.4 H Neut % (Auto) (56.0 - 77.0 %) 64.8 Lymph % (Auto) (14.0 - 32.0 %) 23.8 Evans % (Auto) (4.8 - 9.0 %) 8.9 Eos % (Auto) (0.3 - 3.7 %) 1.8 Baso % (Auto) (0.0 - 2.0 %) 0.3 Neut # (Auto) (2.0 - 7.6 x10 3/uL) 5.98 Lymph # (Auto) (1.0 - 3.8 x10 3/uL) 2.20 Evans # (Auto) (0.1 - 0.8 x10 3/uL) 0.82 H Eos # (Auto) (0.0 - 0.2 x10 3/uL) 0.17 Baso # (Auto) (0.0 - 0.2 x10 3/uL) 0.03 Abs Immat Gran (auto) (0.00 - 0.03 x10 3/uL) 0.04 H Immature Gran % (0.0 - 2.0 %) 0.4 Nucleated RBC % (0 - 0 %) 0.2 H Nucleated RBCs # (Man) (0.0 - 0.1 x10 3/uL) 0.02 Laboratory Tests: 08/21 08/21 08/21 08/20 1032 0728 0536 2030Chemistry Sodium (134 - 147 mEq/L) 150 H Potassium (3.4 - 5.0 mEq/L) 3.4 Chloride (100 - 108 mEq/L) 116 H Carbon Dioxide (21 - 33 mEq/l) 29 Anion Gap (0 - 20) 9 BUN (7 - 25 mg/dL) 8 Creatinine (0.6 - 1.3 mg/dL) 0.8 Glomerular Filtr Rate (70 - 80) 95.2 H Glucose (77 - 141 mg/dL) 173 H POC Glucose (70 - 110 MG/DL) 149 H 153 H 231 H Calcium (8.0 - 10.5 mg/dL) 7.9 L Total Bilirubin (0.0 - 1.0 mg/dL) 0.70 AST (8 - 34 IUnit/L) 128 H ALT (10 - 49 IUnit/L) 79 H Total Alk Phosphatase (20 - 125 IUnit/L) 109 Total Protein (6.4 - 8.2 g/dL) 6.7 Albumin (3.4 - 5.0 g/dL) 1.60 LHematology WBC (4.5 - 11.0 x10 3/uL) 9.2 RBC (4.00 - 5.60 x10 6/uL) 2.76 L Hgb (12.5 - 16.9 g/dL) 8.6 L Hct (37.5 - 50.7 %) 26.5 L MCV (81.0 - 99.0 fL) 96.0 MCH (27.0 - 33.0 pg) 31.2 MCHC (33.0 - 37.0 g/dL) 32.5 L RDW (11.5 - 14.5 %) 17.4 H Plt Count (150 - 400 x10 3/uL) 342 MPV (7.0 - 9.0 fL) 9.4 H Neut % (Auto) (56.0 - 77.0 %) 64.8 Lymph % (Auto) (14.0 - 32.0 %) 23.8 Evans % (Auto) (4.8 - 9.0 %) 8.9 Eos % (Auto) (0.3 - 3.7 %) 1.8 Baso % (Auto) (0.0 - 2.0 %) 0.3 Neut # (Auto) (2.0 - 7.6 x10 3/uL) 5.98 Lymph # (Auto) (1.0 - 3.8 x10 3/uL) 2.20 Evans # (Auto) (0.1 - 0.8 x10 3/uL) 0.82 H Eos # (Auto) (0.0 - 0.2 x10 3/uL) 0.17 Baso # (Auto) (0.0 - 0.2 x10 3/uL) 0.03 Abs Immat Gran (auto) (0.00 - 0.03 x10 3/uL) 0.04 H Immature Gran % (0.0 - 2.0 %) 0.4 Nucleated RBC % (0 - 0 %) 0.2 H Nucleated RBCs # (Man) (0.0 - 0.1 x10 3/uL) 0.02 Diagnosis, Assessment PlanFree Text A P:1.DM VSUeyY7y 8.2adjust Lantus adjust Humalog monitor glucose diabetic diet DC Plan: Lantus, Humalog, follow at next available appointment. 2.Abnormal thyroid functions 08/06 TSH 0.07 FT4 1 recheck in a couple of days 3.Suspected ischemic strokeMRI brain without contrastEchocardiogramTelemetryneurology following 4.Coronary artery diseasePCI on July 03, 2023Echocardiogram preserved LVEFdual antiplateletscardiology following 5. Elevated LFTsGI following 6.MRCP with complex cystic fluid collectionpost drainage surgery following at 1040 at 3934 RPT #:[id number] OF REPORTPRProgress ehwz3756-38-32A80:05:00G.[id number] for patient bojjBPUFSEIJWTCVTL0432-07-51Y17:41:10 [facility] 2023-08-22 10:00:00 [id number]A5v 1iYrRhS4BoNMHJeQKBx qAInaqoiQxhFhovTb9990-72-93F39:00:00 [facility] ([facility])Hospitalist Progress NoteREPORT#:[id number] REPORT STATUS: SignedREPORT INITIALIZATION DATE:08/22/23 TIME: 1000 PATIENT: MISSY CANALES UNIT #: [id number]#: [id number] [address] AGE: 68 SEX: M ATTEND: Raphael Ly [facility] AUTHOR: Clyde Lares DOREPT SERVICE DT/TIME: 08/22/23 1000* ALL edits or amendments must be made on the electronic/computer document * SubjectiveChief complaint:Patient is resting comfortably in bed this morning, remains very weak and frail,appetite is improving. is at the bedside Objective GeneralVS/I O:Vital Signs: Date Time Temp Pulse Resp B/P B/P Pulse O2 O2 Flow FiO2 Mean Ox Delivery Rate 08/21 726 99.0 96 15 112/68 82.6 100 08/21 0434 99.5 91 14 145/66 92.4 100 Nasal 3 cannula 08/20 2350 100.8 100 14 134/72 92.6 98 Nasal 2 cannula 08/21 2027 99.9 121 14 137/79 98.6 95 Nasal 3 cannula 08/21 1999 Nasal 2 cannula 08/20 1713 97.5 96 134/81 98.7 97 08/20 1409 2 24 hour I O ending at 0700: 08/21 0700 08/20 1900 Intake Total Output Total 1200 Balance -1200 Output, Urine 1200 PATIENT WEIGHT: Weight (lb): 177Weight (oz): 14.61Weight (kg): 80.286 Medications:Active Meds + DC'd Last 24 HrsInsulin Glargine (Semglee) 15 UNIT DAILY SUBQ Furosemide (LASIX 20MG INJ) 20 MG BLOOD-DOSE BETWEEN IV (CKD) Tamsulosin HCl (Flomax 0.4 mg) 0.4 MG PC BK PO Insulin Human Lispro (HUMALOG) 0 AC HS SUBQ Atorvastatin Calcium (LIPITOR) 40 MG BEDTIME PO Lactulose (LACTULOSE) 20 GM Q12HR PO Senna/Docusate Sodium (SENOKOT S) 1 TAB Q12HR PO Metoprolol Tartrate (LOPRESSOR) 50 MG Q8HR PO Clopidogrel Bisulfate (Plavix) 75 MG DAILY PO Allopurinol (ZYLOPRIM) 300 MG DAILY PO Aspirin (ASPIRIN) 81 MG DAILY PO Piperacillin Sod/Tazobactam Sod (ZOSYN 3.375GM) 3.375 GM Q8H IV Sodium Chloride (SODIUM CHLORIDE 0.9% 100 ML) 100 MLInsulin Glargine (Semglee) 25 UNIT DAILY SUBQ (DC) Acetaminophen (TYLENOL) 650 MG Q6H PRN PRN PO Bisacodyl (DULCOLAX) 10 MG DAILY PRN PRN RECTAL Polyethylene Glycol (MIRALAX) 17 GM Q12H PO Dextrose/Water (DEXTROSE 10% IN WATER) 125 ML ASDIR PRN IV (CKD) Dextrose/Water (DEXTROSE 10% IN WATER) 250 ML ASDIR PRN IV (CKD) Glucagon (GLUCAGON) 1 MG ASDIR PRN IM Sodium Chloride (SODIUM CHLORIDE 0.9%) 250 ML BOLUS PRN IV Latanoprost (XALATAN 2.5 ML OPHTH SOLN) 1 DROP BEDTIME EACH EYE Timolol Maleate (TIMOPTIC 0.5% 5 ML OPHTH SOLN) 1 DROP BID EACH EYE Brimonidine Tartrate (Alphagan-P 0.2% 5 ML OPHTH SOLN) 1 DROP Q8HR EACH EYE Hydralazine HCl (APRESOLINE) 10 MG Q6H PRN PRN IV Ondansetron HCl (ZOFRAN) 4 MG Q4H PRN PRN IV Physical ExamGeneral appearance: frail, alert, awakeHead/Eyes: atraumatic, normocephalic, PERRLAENT: moist mucosal membranes, normal dentitionCardiovascular: normal heart sounds, regular rate rhythmRespiratory: aerating well, symmetric expansion, no distressAbdomen: non-tender, normal bowel sounds, jtube present with minimal collection (liver abscess drains in place)Genitourinary: no bladder distention, no flank painExtremities: no clubbing, no cyanosisMusculoskeletal: no muscle spasmNeuro/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: abnormal speech, disoriented, alert ResultsFindings/Data:Laboratory Tests 08/21 08/21 08/20 08/20 0728 [id number] 2030 1150 Chemistry Sodium (134 - 147 mEq/L) 150 H Potassium (3.4 - 5.0 mEq/L) 3.4 Chloride (100 - 108 mEq/L) 116 H Carbon Dioxide (21 - 33 mEq/l) 29 Anion Gap (0 - 20) 9 BUN (7 - 25 mg/dL) 8 Creatinine (0.6 - 1.3 mg/dL) 0.8 Glomerular Filtr Rate (70 - 80) 95.2 H Glucose (77 - 141 mg/dL) 173 H POC Glucose (70 - 110 MG/DL) 153 H 231 H 107 Calcium (8.0 - 10.5 mg/dL) 7.9 L Total Bilirubin (0.0 - 1.0 mg/dL) 0.70 AST (8 - 34 IUnit/L) 128 H ALT (10 - 49 IUnit/L) 79 H Total Alk Phosphatase (20 - 125 IUnit/L) 109 Total Protein (6.4 - 8.2 g/dL) 6.7 Albumin (3.4 - 5.0 g/dL) 1.60 L Laboratory Tests 08/21 0536 Hematology WBC (4.5 - 11.0 x10 3/uL) 9.2 RBC (4.00 - 5.60 x10 6/uL) 2.76 L Hgb (12.5 - 16.9 g/dL) 8.6 L Hct (37.5 - 50.7 %) 26.5 L MCV (81.0 - 99.0 fL) 96.0 MCH (27.0 - 33.0 pg) 31.2 MCHC (33.0 - 37.0 g/dL) 32.5 L RDW (11.5 - 14.5 %) 17.4 H Plt Count (150 - 400 x10 3/uL) 342 MPV (7.0 - 9.0 fL) 9.4 H Neut % (Auto) (56.0 - 77.0 %) 64.8 Lymph % (Auto) (14.0 - 32.0 %) 23.8 Evans % (Auto) (4.8 - 9.0 %) 8.9 Eos % (Auto) (0.3 - 3.7 %) 1.8 Baso % (Auto) (0.0 - 2.0 %) 0.3 Neut # (Auto) (2.0 - 7.6 x10 3/uL) 5.98 Lymph # (Auto) (1.0 - 3.8 x10 3/uL) 2.20 Evans # (Auto) (0.1 - 0.8 x10 3/uL) 0.82 H Eos # (Auto) (0.0 - 0.2 x10 3/uL) 0.17 Baso # (Auto) (0.0 - 0.2 x10 3/uL) 0.03 Abs Immat Gran (auto) (0.00 - 0.03 x10 3/uL) 0.04 H Immature Gran % (0.0 - 2.0 %) 0.4 Nucleated RBC % (0 - 0 %) 0.2 H Nucleated RBCs # (Man) (0.0 - 0.1 x10 3/uL) 0.02 Treatment Prophylaxis Treatment ProphylaxisOxygen: room air Diagnosis, Assessment PlanProblem List/A P: 1. Acute cholangitis 2. Elevated LFTs 3. Liver abscess 4. Failure to thrive Free Text DxA P NotesFree text DxA P notes:68-year-old male admitted with abdominal pain, noted with NSTEMI, s/p stent placement to diagonal artery on 07/02/23. Still need staged PCI to RCA. Patient was noted with a liver abscess, seen by general surgery and GI, drain was placedby IR, has been tolerating antibiotics well.* Appreciated input from general surgery, GI, cardiology, and ID* Continue on broad-spectrum antibiotics for 1 more week* Hemoglobin is steady at 8.6* Encourage oral intake and therapy* is at the bedside and all concerns addressed* Patient is awaiting SNF placement at 1003 RPT #:[id number] OF REPORTPRProgress [id number]:00:00G.[id number] for patient roumBNBTZZOZJQIIAN1333-46-46P53:04:17 [facility] 2023-08-22 07:51:00 [id number] OgmYAwt0Xb5MEfC20n4 3XtSFhANNIrmmJ46J0265-09-73D01:51:00 [facility] ([facility])Cardiology Progress NoteREPORT#:[id number] REPORT STATUS: SignedREPORT INITIALIZATION DATE:08/22/23 TIME: 750 PATIENT: MISSY CANALES UNIT #: [id number]#: [id number] [address] [birth year] AGE: 68 SEX: M ATTEND: Raphael Ly MDADM AUTHOR: Esther Buckner AGACNPREPT SERVICE DT/TIME: 08/22/23750* ALL edits or amendments must be made on the electronic/computer document * SubjectiveComments:RN report black stool again. Objective GeneralVS/I O:24 hour I O ending at 0700: 08/21 0700 08/20 1900 Intake Total Output Total 1200 Balance -1200 Output, Urine 1200 Vital Signs: Date Time Temp Pulse Resp B/P B/P Pulse O2 O2 Flow FiO2 Mean Ox Delivery Rate 08/21 726 37.2 96 15 112/68 82.6 100 08/21 0434 37.5 91 14 145/66 92.4 100 Nasal 3 cannula 08/20 2350 38.2 100 14 134/72 92.6 98 Nasal 2 cannula 08/21 2027 37.7 121 14 137/79 98.6 95 Nasal 3 cannula 08/21 1999 Nasal 2 cannula 08/20 1713 36.4 96 134/81 98.7 97 08/20 1409 2 08/20 0812 36.6 103 15 131/76 94.4 99 Room air PATIENT WEIGHT: Weight (lb): 177Weight (oz): 14.61Weight (kg): 80.286 Medications:Active Meds + DC'd Last 24 HrsInsulin Glargine (Semglee) 15 UNIT DAILY SUBQ Potassium Chloride (POTASSIUM CHLORIDE 20MEQ TAB.ER) 40 MEQ ONCE ONE PO (DC) Furosemide (LASIX 20MG INJ) 20 MG BLOOD-DOSE BETWEEN IV (CKD) Tamsulosin HCl (Flomax 0.4 mg) 0.4 MG PC BK PO Insulin Human Lispro (HUMALOG) 0 AC HS SUBQ Atorvastatin Calcium (LIPITOR) 40 MG BEDTIME PO Lactulose (LACTULOSE) 20 GM Q12HR PO Senna/Docusate Sodium (SENOKOT S) 1 TAB Q12HR PO Metoprolol Tartrate (LOPRESSOR) 50 MG Q8HR PO Clopidogrel Bisulfate (Plavix) 75 MG DAILY PO Allopurinol (ZYLOPRIM) 300 MG DAILY PO Aspirin (ASPIRIN) 81 MG DAILY PO Piperacillin Sod/Tazobactam Sod (ZOSYN 3.375GM) 3.375 GM Q8H IV Sodium Chloride (SODIUM CHLORIDE 0.9% 100 ML) 100 MLInsulin Glargine (Semglee) 25 UNIT DAILY SUBQ (DC) Acetaminophen (TYLENOL) 650 MG Q6H PRN PRN PO Bisacodyl (DULCOLAX) 10 MG DAILY PRN PRN RECTAL Polyethylene Glycol (MIRALAX) 17 GM Q12H PO Dextrose/Water (DEXTROSE 10% IN WATER) 125 ML ASDIR PRN IV (CKD) Dextrose/Water (DEXTROSE 10% IN WATER) 250 ML ASDIR PRN IV (CKD) Glucagon (GLUCAGON) 1 MG ASDIR PRN IM Sodium Chloride (SODIUM CHLORIDE 0.9%) 250 ML BOLUS PRN IV Latanoprost (XALATAN 2.5 ML OPHTH SOLN) 1 DROP BEDTIME EACH EYE Timolol Maleate (TIMOPTIC 0.5% 5 ML OPHTH SOLN) 1 DROP BID EACH EYE Brimonidine Tartrate (Alphagan-P 0.2% 5 ML OPHTH SOLN) 1 DROP Q8HR EACH EYE Hydralazine HCl (APRESOLINE) 10 MG Q6H PRN PRN IV Ondansetron HCl (ZOFRAN) 4 MG Q4H PRN PRN IV Physical ExamGeneral appearance: alert, awakeNeck: non-tenderCardiovascular: CV assessment: irregular rhythmRespiratory: decreased breath sounds, on oxygen, no distressAbdomen: softGenitourinary: no urinary catheterUpper extremity: UE assessment: normal capillary refill, normal temperatureLower extremity: LE assessment: no edemaMusculoskeletal: decreased ROMNeuro/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: right hemiparesisSkin: dryPsychiatry: normal affect, normal mood ResultsFindings/Data:Laboratory Tests 08/21 08/20 08/20 08/20 0536 2030 1150 0810 Chemistry Sodium (134 - 147 mEq/L) 150 H Potassium (3.4 - 5.0 mEq/L) 3.4 Chloride (100 - 108 mEq/L) 116 H Carbon Dioxide (21 - 33 mEq/l) 29 Anion Gap (0 - 20) 9 BUN (7 - 25 mg/dL) 8 Creatinine (0.6 - 1.3 mg/dL) 0.8 Glomerular Filtr Rate (70 - 80) 95.2 H Glucose (77 - 141 mg/dL) 173 H POC Glucose (70 - 110 MG/DL) 231 H 107 109 Calcium (8.0 - 10.5 mg/dL) 7.9 L Total Bilirubin (0.0 - 1.0 mg/dL) 0.70 AST (8 - 34 IUnit/L) 128 H ALT (10 - 49 IUnit/L) 79 H Total Alk Phosphatase (20 - 125 IUnit/L) 109 Total Protein (6.4 - 8.2 g/dL) 6.7 Albumin (3.4 - 5.0 g/dL) 1.60 L Laboratory Tests 08/21 0536 Hematology WBC (4.5 - 11.0 x10 3/uL) 9.2 RBC (4.00 - 5.60 x10 6/uL) 2.76 L Hgb (12.5 - 16.9 g/dL) 8.6 L Hct (37.5 - 50.7 %) 26.5 L MCV (81.0 - 99.0 fL) 96.0 MCH (27.0 - 33.0 pg) 31.2 MCHC (33.0 - 37.0 g/dL) 32.5 L RDW (11.5 - 14.5 %) 17.4 H Plt Count (150 - 400 x10 3/uL) 342 MPV (7.0 - 9.0 fL) 9.4 H Neut % (Auto) (56.0 - 77.0 %) 64.8 Lymph % (Auto) (14.0 - 32.0 %) 23.8 Evans % (Auto) (4.8 - 9.0 %) 8.9 Eos % (Auto) (0.3 - 3.7 %) 1.8 Baso % (Auto) (0.0 - 2.0 %) 0.3 Neut # (Auto) (2.0 - 7.6 x10 3/uL) 5.98 Lymph # (Auto) (1.0 - 3.8 x10 3/uL) 2.20 Evans # (Auto) (0.1 - 0.8 x10 3/uL) 0.82 H Eos # (Auto) (0.0 - 0.2 x10 3/uL) 0.17 Baso # (Auto) (0.0 - 0.2 x10 3/uL) 0.03 Abs Immat Gran (auto) (0.00 - 0.03 x10 3/uL) 0.04 H Immature Gran % (0.0 - 2.0 %) 0.4 Nucleated RBC % (0 - 0 %) 0.2 H Nucleated RBCs # (Man) (0.0 - 0.1 x10 3/uL) 0.02 Results: labs reviewed, vital signs reviewed, rhythm personally rev'dTelemetry Interpretation:Sinus rhythm with PACs, sinus arrhythmia Diagnosis, Assessment PlanPlan discussed with: patient, spouse/partner, collaborating MD, nurse Free Text DxA P NotesFree Text DxA P Notes:1. Coronary artery disease s/p recent PCI/TERESA to diagonal artery* Troponin trend is flat* Hx of CABG (2000)* s/p stent placement to diagonal artery on 07/02/23. Still need staged PCI to RCA. * Continue Plavix and aspirin - do not stop Plavix d/t risk of stent thrombosis* Echocardiogram preserved LVEF.* add lansoprazole 30 mg daily 2. Elevated LFTs/acute cholecystitis/liver abscess* s/p cholecystostomy tube placement. * GI on board* ID on board managing antibiotic 3. AMS: MRI brain showed small subacute ischemia in the L coronary radiata * MRI of the brain unchanged 4. Tachycardia with PVCs and PACs* Continue metoprolol 50 mg every 8 hours. * continuous telemetry monitoring* Telemetry with frequent PVCs, replace low potassium 5. Anemia* hgb 6.3 up to 8.9->8.6* s/p 2 units PRBCs 08/20/23* RN reported black stool last night* GI on board Continue PT/OT/ST and supportive care. Medical decision making by Dr. Daniel. at 1251 at 0822 RPT #:[id number] OF REPORTPRProgress [id number]:51:00G.[id number] for patient ravxNENSXOKQZZENMM7456-00-65C52:52:09 [facility] 2023-08-21 18:27:00 [id number]+eEouLNhZ FJpMZ5fxJ5NPgBYKURG kytgdhiBNCKybUOn42268-37-97L85:27:00 [facility] CenterPalliative Care ConsultationREPORT#:[id number] REPORT STATUS: SignedREPORT INITIALIZATION DATE:08/21/23 TIME: 1826 PATIENT: MISSY CANALES UNIT #: [id number]#: [id number] [address] [birth year] AGE: 68 SEX: M ATTEND: Raphael Ly MDADM AUTHOR: Glenny Mclaughlin FNPREPT SERVICE DT/TIME: 08/21/231826* ALL edits or amendments must be made on the electronic/computer document * HistoryPast medical history:Reports: Diabetes mellitus, Hypertension. Additional medical history:HTN, HLD, DM type II and CADAdditional surgical history:recent cardia cathAlcohol use: Denies EtOH useDrug use: Denies recreational drugsSmoking status for patients 13 years old or older: Former SmokerAllergies:Coded Allergies:No Known Allergies (08/03/23) Objective Physical ExamVitals/I O:Vital Signs: Date Time Temp Pulse Resp B/P B/P Pulse O2 O2 Flow FiO2 Mean Ox Delivery Rate 08/20 1713 36.4 96 134/81 98.7 97 08/20 1409 2 08/20 0812 36.6 103 15 131/76 94.4 99 Room air 08/20 0339 37.8 100 16 165/82 109.5 99 Nasal cannula 08/20 0007 36.7 107 15 159/82 107.5 100 Nasal 2 cannula 08/19 2305 36.9 97 14 150/85 106.7 100 Nasal 14 cannula 08/198 36.8 114 154/77 102.4 97 Nasal 2 cannula 08/20 1999 Nasal 2 cannula 08/20 1955 37.5 110 14 136/72 93.0 100 Nasal 2 cannula 08/19 1912 37.3 103 16 135/80 0.0 100 Nasal cannula 24 hour I O ending at 0700: 08/20 0700 08/19 1900 Intake Total 1045 500 Output Total Balance 1045 500 Intake, IV 375 500 Intake, 670 Packed Cells Diagnosis, Assessment PlanHospital course to date:Patient seen and examined. Spoke with Ms. Canales regarding goals of care including plan to possibly transfer to skill nursing facility versus palliative care versus hospice. She stated, "she needs additional time and does not want to have discussion right now" I will continue to support the patient and family during this difficult time. Thank you for allowing me to assist in the care of Mr. Missy Canales. Time spent - 1730 - 1800 - 30 minutes. Quality Current MedicationsCurrent medication review:I attest that the foregoing medication list in the medical record is true, accurate, and complete to the best of my knowledge. Advanced Care Plan 65 or OlderDiscussed with: patient, surrogate decis. maker at 1826 RPT #:[id number] OF REPORTJTBfzihmosuvxq8083-08-53T42:27:00G.[id number] 33AVAvailable for patient cndaKHZGXBVBUATPXA9497-11-75M41:26:23 [facility] 2023-08-21 13:55:00 [id number] xri0VQ9lIlmRw56R5Uo /A+UNJYO6/XnQHXMJ7483-66-08H06:55:00 [facility] CenterCardiology Progress NoteREPORT#:[id number] REPORT STATUS: SignedREPORT INITIALIZATION DATE:08/21/23 TIME: 135 PATIENT: MISSY CANALES UNIT #: [id number]#: [id number] ROOM/BED: 6617[address]1DOB: [birth year] AGE: 68 SEX: M ATTEND: Raphael Ly MDADM AUTHOR: Esther Buckner AGACNPREPT SERVICE DT/TIME: 08/21/23 1355* ALL edits or amendments must be made on the electronic/computer document * SubjectiveComments:RN report black stool last night. Objective GeneralVS/I O:24 hour I O ending at 0700: 08/20 0700 08/19 1900 Intake Total 1045 500 Output Total Balance 1045 500 Intake, IV 375 500 Intake, 670 Packed Cells Vital Signs: Date Time Temp Pulse Resp B/P B/P Pulse O2 O2 Flow FiO2 Mean Ox Delivery Rate 08/20 0812 36.6 103 15 131/76 94.4 99 Room air 08/20 0339 37.8 100 16 165/82 109.5 99 Nasal cannula 08/20 0007 36.7 107 15 159/82 107.5 100 Nasal 2 cannula 08/19 2305 36.9 97 14 150/85 106.7 100 Nasal 14 cannula 08/19 2228 36.8 114 154/77 102.4 97 Nasal 2 cannula 08/19 2000 Nasal 2 cannula 08/19 1956 37.5 110 14 136/72 93.0 100 Nasal 2 cannula 08/19 1912 37.3 103 16 135/80 0.0 100 Nasal cannula 08/19 1821 115 127/71 89.7 08/19 1718 36.7 112 138/68 91.3 100 08/19 1637 37.2 PATIENT WEIGHT: Weight (lb): 177Weight (oz): 14.61Weight (kg): 80.286 Medications:Active Meds + DC'd Last 24 HrsInsulin Glargine (Semglee) 15 UNIT DAILY SUBQ Potassium Chloride (POTASSIUM CHLORIDE 20MEQ TAB.ER) 40 MEQ ONCE ONE PO (DC) Furosemide (LASIX 20MG INJ) 20 MG BLOOD-DOSE BETWEEN IV (CKD) Potassium Chloride (K-CHAPITO 20 MEQ PACKET) 40 MEQ ONCE ONE FEED-TUBE (DC) Tamsulosin HCl (Flomax 0.4 mg) 0.4 MG PC BK PO Insulin Human Lispro (HUMALOG) 0 AC HS SUBQ Atorvastatin Calcium (LIPITOR) 40 MG BEDTIME PO Lactulose (LACTULOSE) 20 GM Q12HR PO Senna/Docusate Sodium (SENOKOT S) 1 TAB Q12HR PO Metoprolol Tartrate (LOPRESSOR) 50 MG Q8HR PO Clopidogrel Bisulfate (Plavix) 75 MG DAILY PO Allopurinol (ZYLOPRIM) 300 MG DAILY PO Aspirin (ASPIRIN) 81 MG DAILY PO Piperacillin Sod/Tazobactam Sod (ZOSYN 3.375GM) 3.375 GM Q8H IV Sodium Chloride (SODIUM CHLORIDE 0.9% 100 ML) 100 MLInsulin Glargine (Semglee) 25 UNIT DAILY SUBQ (DC) Acetaminophen (TYLENOL) 650 MG Q6H PRN PRN PO Bisacodyl (DULCOLAX) 10 MG DAILY PRN PRN RECTAL Polyethylene Glycol (MIRALAX) 17 GM Q12H PO Dextrose/Water (DEXTROSE 10% IN WATER) 125 ML ASDIR PRN IV (CKD) Dextrose/Water (DEXTROSE 10% IN WATER) 250 ML ASDIR PRN IV (CKD) Glucagon (GLUCAGON) 1 MG ASDIR PRN IM Sodium Chloride (SODIUM CHLORIDE 0.9%) 250 ML BOLUS PRN IV Latanoprost (XALATAN 2.5 ML OPHTH SOLN) 1 DROP BEDTIME EACH EYE Timolol Maleate (TIMOPTIC 0.5% 5 ML OPHTH SOLN) 1 DROP BID EACH EYE Brimonidine Tartrate (Alphagan-P 0.2% 5 ML OPHTH SOLN) 1 DROP Q8HR EACH EYE Hydralazine HCl (APRESOLINE) 10 MG Q6H PRN PRN IV Ondansetron HCl (ZOFRAN) 4 MG Q4H PRN PRN IV Physical ExamGeneral appearance: alert, awakeENT: normal noseNeck: non-tenderCardiovascular: CV assessment: ectopy, tachycardiaRespiratory: decreased breath sounds, on oxygen, no distressAbdomen: softGenitourinary: no urinary catheterUpper extremity: UE assessment: normal capillary refill, normal temperatureLower extremity: LE assessment: no edemaMusculoskeletal: decreased ROMNeuro/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: right hemiparesisSkin: dryPsychiatry: normal affect ResultsFindings/Data:Laboratory Tests 08/20 08/20 08/20 08/20 08/19 1150 0810 0629 0009 1914 Chemistry Sodium (134 - 147 mEq/L) 149 H Potassium (3.4 - 5.0 mEq/L) 3.2 L Chloride (100 - 108 mEq/L) 115 H Carbon Dioxide (21 - 33 mEq/l) 28 Anion Gap (0 - 20) 9 BUN (7 - 25 mg/dL) 11 Creatinine (0.6 - 1.3 mg/dL) 0.8 Glomerular Filtr Rate (70 - 80) 95.2 H Glucose (77 - 141 mg/dL) 121 POC Glucose (70 - 110 MG/DL) 107 109 133 H 169 H Calcium (8.0 - 10.5 mg/dL) 8.0 08/19 1728 Chemistry POC Glucose (70 - 110 MG/DL) 150 H Laboratory Tests 08/20 0629 Hematology WBC (4.5 - 11.0 x10 3/uL) 11.0 RBC (4.00 - 5.60 x10 6/uL) 2.84 L Hgb (12.5 - 16.9 g/dL) 8.9 L Hct (37.5 - 50.7 %) 26.8 L MCV (81.0 - 99.0 fL) 94.4 MCH (27.0 - 33.0 pg) 31.3 MCHC (33.0 - 37.0 g/dL) 33.2 RDW (11.5 - 14.5 %) 17.3 H Plt Count (150 - 400 x10 3/uL) 347 MPV (7.0 - 9.0 fL) 9.4 H Neut % (Auto) (56.0 - 77.0 %) 65.5 Lymph % (Auto) (14.0 - 32.0 %) 22.0 Evans % (Auto) (4.8 - 9.0 %) 9.5 H Eos % (Auto) (0.3 - 3.7 %) 1.8 Baso % (Auto) (0.0 - 2.0 %) 0.5 Neut # (Auto) (2.0 - 7.6 x10 3/uL) 7.23 Lymph # (Auto) (1.0 - 3.8 x10 3/uL) 2.43 Evans # (Auto) (0.1 - 0.8 x10 3/uL) 1.05 H Eos # (Auto) (0.0 - 0.2 x10 3/uL) 0.20 Baso # (Auto) (0.0 - 0.2 x10 3/uL) 0.05 Abs Immat Gran (auto) (0.00 - 0.03 x10 3/uL) 0.08 H Immature Gran % (0.0 - 2.0 %) 0.7 Nucleated RBC % (0 - 0 %) 0.4 H Nucleated RBCs # (Man) (0.0 - 0.1 x10 3/uL) 0.04 Results: labs reviewed, vital signs reviewed, rhythm personally rev'dTelemetry Interpretation:Sinus rhythm with frequent PVCs. Diagnosis, Assessment PlanPlan discussed with: patient, spouse/partner, collaborating MD, nurse Free Text DxA P NotesFree Text DxA P Notes:1. Coronary artery disease s/p recent PCI/TERESA to diagonal artery* Troponin trend is flat* Hx of CABG (2000)* s/p stent placement to diagonal artery on 07/02/23. Still need staged PCI to RCA. * Continue Plavix and aspirin - do not stop Plavix d/t risk of stent thrombosis* Echocardiogram preserved LVEF. 2. Elevated LFTs/acute cholecystitis/liver abscess* s/p cholecystostomy tube placement. * GI on board* ID on board managing antibiotic 3. AMS: MRI brain showed small subacute ischemia in the L coronary radiata * MRI of the brain unchanged 4. Tachycardia with PVCs and PACs* Continue metoprolol 50 mg every 8 hours. * continuous telemetry monitoring* Telemetry with frequent PVCs, replace low potassium 5. Anemia* hgb 6.3 up to 8.9 after 2 units PRBCs* RN reported black stool last night* GI on board Continue PT/OT/ST and supportive care. Medical decision making by Dr. Daniel. at 1640 at 0822 RPT #:[id number] OF REPORTPRProgress [id number]:55:00G.[id number] for patient hhnoUXDOMVBLVGFBJK4187-72-60S39:41:24 [facility] 2023-08-21 12:51:00 [id number] v3HWZN1Nrv1B4nfzACK obWxagD9xODrO86QO3467-87-10P19:51:00 [facility] ([facility])Infectious Dis. Progress NoteREPORT#:[id number] REPORT STATUS: SignedREPORT INITIALIZATION DATE:08/21/23 TIME: 125 PATIENT: MISSY CANALES UNIT #: [id number]#: [id number] [address] [birth year] AGE: 68 SEX: M ATTEND: Raphael Ly MDADM AUTHOR: Henrry Heredia MDREPT SERVICE DT/TIME: 08/21/23 1251* ALL edits or amendments must be made on the electronic/computer document * SubjectiveChief complaint:Follow-up on bacteremia, hepatic abscess, cholecystitis, aspiration pneumoniaHPI:Review of systems is somewhat limited due to patient's limited responses. Nonetheless, he appears comfortable and gestures that he feels okay. No major overnight events. Objective GeneralVS/I O:Vital SignsDate Temp Pulse Resp B/P B/P Mean Pulse Ox RiJ721/-08/20 97.9-100.0 97-115 14-16 127-165/68-85 0.0-109.5 97-100 Last Documented: Result Date Time Pulse Ox 99 08/20 0812 B/P 131/76 08/20 0812 B/P Mean 94.4 08/20 0812 O2 Delivery Room air 08/20 08 Temp 97.9 08/20 0812 Pulse 103 08/20 0812 Resp 15 08/20 0812 O2 Flow Rate 2 08/20 0007 FiO2 40 / 0752 Vital Signs: Date Time Temp Pulse Resp B/P B/P Pulse O2 O2 Flow FiO2 Mean Ox Delivery Rate 08/20 08 97.9 103 15 131/76 94.4 99 Room air 08/20 0339 100.0 100 16 165/82 109.5 99 Nasal cannula 08/20 0007 98.1 107 15 159/82 107.5 100 Nasal 2 cannula 08/19 2305 98.4 97 14 150/85 106.7 100 Nasal 14 cannula 08/19 2228 98.2 114 154/77 102.4 97 Nasal 2 cannula 08/19 2000 Nasal 2 cannula 08/19 195 99.5 110 14 136/72 93.0 100 Nasal 2 cannula 08/19 1912 99.1 103 16 135/80 0.0 100 Nasal cannula 08/19 1821 115 127/71 89.7 08/19 1718 98.1 112 138/68 91.3 100 08/19 1637 99.0 24 hour I O ending at 0700: 08/20 0700 08/19 1900 Intake Total 1045 500 Output Total Balance 1045 500 Intake, IV 375 500 Intake, 670 Packed Cells PATIENT WEIGHT: Weight (lb): 177Weight (oz): 14.61Weight (kg): 80.286 Physical ExamGeneral appearance: chronically ill appearing, lethargic, no acute distressWound/incision: Location:cholecystostomy tube and RUQ drain in placeCardiovascular: tachycardia, no murmurRespiratory: clear to auscultation, symmetric expansionAbdomen: non-tender, soft, no distention, percutaneous drains in place in RUQExtremities: no cyanosis, no edemaNeuro/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: followed simple commands from LUE only; non-verbal during the encounterSkin: dry, no rashPsychiatry: unable to evaluate Diagnosis, Assessment PlanFree Text A P: Assessment: Mr. Canales is a 68-year-old male with PMH of HTN, DMII, CAD s/p stent who came to [facility] initially with N/V and abdominal pain. His pain was started 2 days prior to admission. His work up showed elevated LFTs, bilirubin, troponin. His US abdomen showed cholelithiasis with distended gallbladder including material at the gallbladder neck concerning for impacted stone. Patient started on empiric antibiotics and had cultures done with blood culture showing gram negative bacilli. Patient has been febrile and tachycardic while here. GI and general surgery are consulted. Patient was found to have acute cholecystitis with a liver abscess. He had a drain in the gallbladder and in the abscess placed. Blood culture eventually grew Citrobacter and so did the abscess. *Fever--Recurrent after improvement--UA via straight cath (-)--Covid (-)--Flu (-)--F/U CT A/P, decreased liver absces; (+) LLL infiltrates c/w PNA*PNA--CT LLL infiltrates c/w aspiration*Bacteremia--Citrobacter--Source: Biliary*Liver abscess--MRCP showed 4.6 x 3.6 x 3.0 thick walled cystic lesion/fluid collection liver abutting GB fossa--S/P IR drain 08/05, cx Citrobacter*Acute cholecystitis--S/P IR placed cholecystotomy tube 3., cx Citrobacter*Acute stroke--MRI (+) subacute Left guo radiata--CTA neck (+) high grade stenosis*ARELY*DM2*HTN*CAD Plan: -On piperacillin-tazobactam. 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 at 1253 RPT #:[id number] OF REPORTPRProgress [id number]:51:00G.[id number] for patient yrjpMECWHPTOXAPOPQ7849-19-22R63:53:35 [facility] 2023-08-21 12:43:00 [id number] /0qi403/dRjICNt2ogR ST7mtRLQBOjAsI5GM9408-03-63N31:43:00 [facility] ([facility])Endocrinology Progress NoteREPORT#:[id number] REPORT STATUS: SignedREPORT INITIALIZATION DATE:08/21/23 TIME: 1243 PATIENT: LACY,DON W UNIT #: [id number]#: [id number] [address] [birth year] AGE: 68 SEX: M ATTEND: Raphael Ly MDADM AUTHOR: Agus Duckworth APRNNPREPT SERVICE DT/TIME: 08/21/23 1140* ALL edits or amendments must be made on the electronic/computer document * SubjectiveChief complaint:f/u DM IIlabile dietpending SNF Objective GeneralVS:Last Documented: Result Date Time Pulse Ox 99 08/20 08 B/P 131/76 08/20 08 B/P Mean 94.4 08/20 08 O2 Delivery Room air 08/21 811 Temp 97.9 08/20 08 Pulse 103 08/20 08 Resp 15 08/20 08 O2 Flow Rate 2 08/20 0007 FiO2 40 08/07 0752 PATIENT WEIGHT: Weight (lb): 177Weight (oz): 14.61Weight (kg): 80.286 Medications:Active Meds + DC'd Last 24 HrsInsulin Glargine (Semglee) 15 UNIT DAILY SUBQ (UNV) Potassium Chloride (POTASSIUM CHLORIDE 20MEQ TAB.ER) 40 MEQ ONCE ONE PO (DC) Furosemide (LASIX 20MG INJ) 20 MG BLOOD-DOSE BETWEEN IV (CKD) Potassium Chloride (K-CHAPITO 20 MEQ PACKET) 40 MEQ ONCE ONE FEED-TUBE (DC) Tamsulosin HCl (Flomax 0.4 mg) 0.4 MG PC BK PO Insulin Human Lispro (HUMALOG) 4 UNIT AC SUBQ (DC) Insulin Human Lispro (HUMALOG) 0 AC HS SUBQ Atorvastatin Calcium (LIPITOR) 40 MG BEDTIME PO Lactulose (LACTULOSE) 20 GM Q12HR PO Senna/Docusate Sodium (SENOKOT S) 1 TAB Q12HR PO Metoprolol Tartrate (LOPRESSOR) 50 MG Q8HR PO Clopidogrel Bisulfate (Plavix) 75 MG DAILY PO Allopurinol (ZYLOPRIM) 300 MG DAILY PO Aspirin (ASPIRIN) 81 MG DAILY PO Piperacillin Sod/Tazobactam Sod (ZOSYN 3.375GM) 3.375 GM Q8H IV Sodium Chloride (SODIUM CHLORIDE 0.9% 100 ML) 100 MLInsulin Glargine (Semglee) 25 UNIT DAILY SUBQ (DCr) Acetaminophen (TYLENOL) 650 MG Q6H PRN PRN PO Bisacodyl (DULCOLAX) 10 MG DAILY PRN PRN RECTAL Polyethylene Glycol (MIRALAX) 17 GM Q12H PO Dextrose/Water (DEXTROSE 10% IN WATER) 125 ML ASDIR PRN IV (CKD) Dextrose/Water (DEXTROSE 10% IN WATER) 250 ML ASDIR PRN IV (CKD) Glucagon (GLUCAGON) 1 MG ASDIR PRN IM Sodium Chloride (SODIUM CHLORIDE 0.9%) 250 ML BOLUS PRN IV Latanoprost (XALATAN 2.5 ML OPHTH SOLN) 1 DROP BEDTIME EACH EYE Timolol Maleate (TIMOPTIC 0.5% 5 ML OPHTH SOLN) 1 DROP BID EACH EYE Brimonidine Tartrate (Alphagan-P 0.2% 5 ML OPHTH SOLN) 1 DROP Q8HR EACH EYE Hydralazine HCl (APRESOLINE) 10 MG Q6H PRN PRN IV Ondansetron HCl (ZOFRAN) 4 MG Q4H PRN PRN IV Dietitian nutrition assessmentThe data set between the solid lines has been imported from the dietitian's assessment. BMI Calculated: 27.7Nutrition related diagnosis: OverweightNutrition diagnosis details: BMI 25-29.9Nutrition problem: Inadequate oral intakeNutrition etiology: PT LETHARGIC /SWALLOWING Nutrition signs and symptoms: ENTERAL NUTRITION TO MEET , ENERGY NEEDS , (DIET ADVANCED TO PUREED AND, TOLERATED.)Nutrition prescription: 1. RECOMMEND PUREED CCD5 DIET. 2. PROVIDE GLUCERNA TID WITH MEALS. 3. MONITOR PO, WT, LABS, BM.Dietitian name: Lucía Torres, DIETAssessment completed: 08/20/23 Physical ExamGeneral appearance: alert, awakeHEENT: atraumatic, clear cornea, normocephalicNeck: suppleCardiovascular: regular rate rhythmRespiratory: on oxygenAbdomen: softGenitourinary: not indicatedExtremities: warmNeuro/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: alertSkin: warmFindings/data:Laboratory Tests: 08/20 08/20 08/20 08/20 1150 [id number] Chemistry Sodium (134 - 147 mEq/L) 149 H Potassium (3.4 - 5.0 mEq/L) 3.2 L Chloride (100 - 108 mEq/L) 115 H Carbon Dioxide (21 - 33 mEq/l) 28 Anion Gap (0 - 20) 9 BUN (7 - 25 mg/dL) 11 Creatinine (0.6 - 1.3 mg/dL) 0.8 Glomerular Filtr Rate (70 - 80) 95.2 H Glucose (77 - 141 mg/dL) 121 POC Glucose (70 - 110 MG/DL) 107 109 133 H Calcium (8.0 - 10.5 mg/dL) 8.0 Hematology WBC (4.5 - 11.0 x10 3/uL) 11.0 RBC (4.00 - 5.60 x10 6/uL) 2.84 L Hgb (12.5 - 16.9 g/dL) 8.9 L Hct (37.5 - 50.7 %) 26.8 L MCV (81.0 - 99.0 fL) 94.4 MCH (27.0 - 33.0 pg) 31.3 MCHC (33.0 - 37.0 g/dL) 33.2 RDW (11.5 - 14.5 %) 17.3 H Plt Count (150 - 400 x10 3/uL) 347 MPV (7.0 - 9.0 fL) 9.4 H Neut % (Auto) (56.0 - 77.0 %) 65.5 Lymph % (Auto) (14.0 - 32.0 %) 22.0 Evans % (Auto) (4.8 - 9.0 %) 9.5 H Eos % (Auto) (0.3 - 3.7 %) 1.8 Baso % (Auto) (0.0 - 2.0 %) 0.5 Neut # (Auto) (2.0 - 7.6 x10 3/uL) 7.23 Lymph # (Auto) (1.0 - 3.8 x10 3/uL) 2.43 Evans # (Auto) (0.1 - 0.8 x10 3/uL) 1.05 H Eos # (Auto) (0.0 - 0.2 x10 3/uL) 0.20 Baso # (Auto) (0.0 - 0.2 x10 3/uL) 0.05 Abs Immat Gran (auto) (0.00 - 0.03 x10 3/uL) 0.08 H Immature Gran % (0.0 - 2.0 %) 0.7 Nucleated RBC % (0 - 0 %) 0.4 H Nucleated RBCs # (Man) (0.0 - 0.1 x10 3/uL) 0.04 08/19 08/19 1914 1728 Chemistry POC Glucose (70 - 110 MG/DL) 169 H 150 H Laboratory Tests: 08/20 08/20 08/20 08/20 1150 0810 0629 0009 Chemistry Sodium (134 - 147 mEq/L) 149 H Potassium (3.4 - 5.0 mEq/L) 3.2 L Chloride (100 - 108 mEq/L) 115 H Carbon Dioxide (21 - 33 mEq/l) 28 Anion Gap (0 - 20) 9 BUN (7 - 25 mg/dL) 11 Creatinine (0.6 - 1.3 mg/dL) 0.8 Glomerular Filtr Rate (70 - 80) 95.2 H Glucose (77 - 141 mg/dL) 121 POC Glucose (70 - 110 MG/DL) 107 109 133 H Calcium (8.0 - 10.5 mg/dL) 8.0 Hematology WBC (4.5 - 11.0 x10 3/uL) 11.0 RBC (4.00 - 5.60 x10 6/uL) 2.84 L Hgb (12.5 - 16.9 g/dL) 8.9 L Hct (37.5 - 50.7 %) 26.8 L MCV (81.0 - 99.0 fL) 94.4 MCH (27.0 - 33.0 pg) 31.3 MCHC (33.0 - 37.0 g/dL) 33.2 RDW (11.5 - 14.5 %) 17.3 H Plt Count (150 - 400 x10 3/uL) 347 MPV (7.0 - 9.0 fL) 9.4 H Neut % (Auto) (56.0 - 77.0 %) 65.5 Lymph % (Auto) (14.0 - 32.0 %) 22.0 Evans % (Auto) (4.8 - 9.0 %) 9.5 H Eos % (Auto) (0.3 - 3.7 %) 1.8 Baso % (Auto) (0.0 - 2.0 %) 0.5 Neut # (Auto) (2.0 - 7.6 x10 3/uL) 7.23 Lymph # (Auto) (1.0 - 3.8 x10 3/uL) 2.43 Evans # (Auto) (0.1 - 0.8 x10 3/uL) 1.05 H Eos # (Auto) (0.0 - 0.2 x10 3/uL) 0.20 Baso # (Auto) (0.0 - 0.2 x10 3/uL) 0.05 Abs Immat Gran (auto) (0.00 - 0.03 x10 3/uL) 0.08 H Immature Gran % (0.0 - 2.0 %) 0.7 Nucleated RBC % (0 - 0 %) 0.4 H Nucleated RBCs # (Man) (0.0 - 0.1 x10 3/uL) 0.04 08/19 08/19 1914 1728 Chemistry POC Glucose (70 - 110 MG/DL) 169 H 150 H Diagnosis, Assessment PlanFree Text A P:1.DM TYBkcV5a 8.2adjust Lantus adjust Humalog monitor glucose diabetic diet DC Plan: Lantus, Humalog, follow at next available appointment. 2.Abnormal thyroid functions 08/06 TSH 0.07 FT4 1 recheck in a couple of days 3.Suspected ischemic strokeMRI brain without contrastEchocardiogramTelemetryneurology following 4.Coronary artery diseasePCI on July 03, 2023Echocardiogram preserved LVEFdual antiplateletscardiology following 5. Elevated LFTsGI following 6.MRCP with complex cystic fluid collectionpost drainage surgery following at 1212 at 1309 RPT #:[id number] OF REPORTPRProgress [id number]:43:00G.[id number] for patient fmigRZQPBPBZUFERXY5070-24-92D25:12:47 [facility] 2023-08-21 10:59:00 [id number]/DU6jZuQW9+uRQlamuDh8 5bXTdhVc6WQxtkjU91S j7ZLYJMf3acaLv9pZ9839-78-58C42:59:00 [facility] CenterHospitalist Progress NoteREPORT#:[id number] REPORT STATUS: SignedREPORT INITIALIZATION DATE:08/21/23 TIME: 1059 PATIENT: MISSY CANALES UNIT #: [id number]#: [id number] [address] AGE: 68 SEX: M ATTEND: Raphael Ly [facility] AUTHOR: Clyde Lares DOREPT SERVICE DT/TIME: 08/21/23 1059* ALL edits or amendments must be made on the electronic/computer document * SubjectiveChief complaint:Patient is resting comfortably in bed very weak Objective GeneralVS/I O:Vital Signs: Date Time Temp Pulse Resp B/P B/P Pulse O2 O2 Flow FiO2 Mean Ox Delivery Rate 08/20 08 97.9 103 15 131/76 94.4 99 Room air 08/20 0339 100.0 100 16 165/82 109.5 99 Nasal cannula 08/20 0007 98.1 107 15 159/82 107.5 100 Nasal 2 cannula 08/19 2304 98.4 97 14 150/85 106.7 100 Nasal 14 cannula 08/20 2227 98.2 114 154/77 102.4 97 Nasal 2 cannula 08/20 1999 Nasal 2 cannula 08/20 1955 99.5 110 14 136/72 93.0 100 Nasal 2 cannula 03/25 1912 99.1 103 16 135/80 0.0 100 Nasal cannula 08/19 1821 115 127/71 89.7 08/19 1718 98.1 112 138/68 91.3 100 08/19 1637 99.0 08/19 1216 98.1 107 17 137/76 96.1 100 Nasal cannula 24 hour I O ending at 0700: 08/20 0700 08/19 1900 Intake Total 1045 500 Output Total Balance 1045 500 Intake, IV 375 500 Intake, 670 Packed Cells PATIENT WEIGHT: Weight (lb): 177Weight (oz): 14.61Weight (kg): 80.286 Medications:Active Meds + DC'd Last 24 HrsPotassium Chloride (POTASSIUM CHLORIDE 20MEQ TAB.ER) 40 MEQ ONCE ONE PO (DC) Furosemide (LASIX 20MG INJ) 20 MG BLOOD-DOSE BETWEEN IV (CKD) Potassium Chloride (K-CHAPITO 20 MEQ PACKET) 40 MEQ ONCE ONE FEED-TUBE (DC) Tamsulosin HCl (Flomax 0.4 mg) 0.4 MG PC BK PO Insulin Human Lispro (HUMALOG) 4 UNIT AC SUBQ (DC) Insulin Human Lispro (HUMALOG) 0 AC HS SUBQ Atorvastatin Calcium (LIPITOR) 40 MG BEDTIME PO Lactulose (LACTULOSE) 20 GM Q12HR PO Senna/Docusate Sodium (SENOKOT S) 1 TAB Q12HR PO Metoprolol Tartrate (LOPRESSOR) 50 MG Q8HR PO Clopidogrel Bisulfate (Plavix) 75 MG DAILY PO Allopurinol (ZYLOPRIM) 300 MG DAILY PO Aspirin (ASPIRIN) 81 MG DAILY PO Piperacillin Sod/Tazobactam Sod (ZOSYN 3.375GM) 3.375 GM Q8H IV Sodium Chloride (SODIUM CHLORIDE 0.9% 100 ML) 100 MLInsulin Glargine (Semglee) 25 UNIT DAILY SUBQ Acetaminophen (TYLENOL) 650 MG Q6H PRN PRN PO Bisacodyl (DULCOLAX) 10 MG DAILY PRN PRN RECTAL Polyethylene Glycol (MIRALAX) 17 GM Q12H PO Dextrose/Water (DEXTROSE 10% IN WATER) 125 ML ASDIR PRN IV (CKD) Dextrose/Water (DEXTROSE 10% IN WATER) 250 ML ASDIR PRN IV (CKD) Glucagon (GLUCAGON) 1 MG ASDIR PRN IM Sodium Chloride (SODIUM CHLORIDE 0.9%) 250 ML BOLUS PRN IV Latanoprost (XALATAN 2.5 ML OPHTH SOLN) 1 DROP BEDTIME EACH EYE Timolol Maleate (TIMOPTIC 0.5% 5 ML OPHTH SOLN) 1 DROP BID EACH EYE Brimonidine Tartrate (Alphagan-P 0.2% 5 ML OPHTH SOLN) 1 DROP Q8HR EACH EYE Hydralazine HCl (APRESOLINE) 10 MG Q6H PRN PRN IV Ondansetron HCl (ZOFRAN) 4 MG Q4H PRN PRN IV Physical ExamGeneral appearance: alert, awakeHead/Eyes: atraumatic, normocephalic, PERRLAENT: moist mucosal membranes, normal dentitionCardiovascular: normal heart sounds, regular rate rhythmRespiratory: aerating well, symmetric expansion, no distressAbdomen: non-tender, normal bowel sounds, jtube present with minimal collectionGenitourinary: no bladder distention, no flank painExtremities: no clubbing, no cyanosisMusculoskeletal: no muscle spasmNeuro/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: abnormal speech, disoriented, alert ResultsFindings/Data:Laboratory Tests 08/20 08/20 08/20 08/19 08/19 0810 0629 0009 1914 1728 Chemistry Sodium (134 - 147 mEq/L) 149 H Potassium (3.4 - 5.0 mEq/L) 3.2 L Chloride (100 - 108 mEq/L) 115 H Carbon Dioxide (21 - 33 mEq/l) 28 Anion Gap (0 - 20) 9 BUN (7 - 25 mg/dL) 11 Creatinine (0.6 - 1.3 mg/dL) 0.8 Glomerular Filtr Rate (70 - 80) 95.2 H Glucose (77 - 141 mg/dL) 121 POC Glucose (70 - 110 MG/DL) 109 133 H 169 H 150 H Calcium (8.0 - 10.5 mg/dL) 8.0 08/19 1215 Chemistry POC Glucose (70 - 110 MG/DL) 115 H Laboratory Tests 08/20 0629 Hematology WBC (4.5 - 11.0 x10 3/uL) 11.0 RBC (4.00 - 5.60 x10 6/uL) 2.84 L Hgb (12.5 - 16.9 g/dL) 8.9 L Hct (37.5 - 50.7 %) 26.8 L MCV (81.0 - 99.0 fL) 94.4 MCH (27.0 - 33.0 pg) 31.3 MCHC (33.0 - 37.0 g/dL) 33.2 RDW (11.5 - 14.5 %) 17.3 H Plt Count (150 - 400 x10 3/uL) 347 MPV (7.0 - 9.0 fL) 9.4 H Neut % (Auto) (56.0 - 77.0 %) 65.5 Lymph % (Auto) (14.0 - 32.0 %) 22.0 Evans % (Auto) (4.8 - 9.0 %) 9.5 H Eos % (Auto) (0.3 - 3.7 %) 1.8 Baso % (Auto) (0.0 - 2.0 %) 0.5 Neut # (Auto) (2.0 - 7.6 x10 3/uL) 7.23 Lymph # (Auto) (1.0 - 3.8 x10 3/uL) 2.43 Evans # (Auto) (0.1 - 0.8 x10 3/uL) 1.05 H Eos # (Auto) (0.0 - 0.2 x10 3/uL) 0.20 Baso # (Auto) (0.0 - 0.2 x10 3/uL) 0.05 Abs Immat Gran (auto) (0.00 - 0.03 x10 3/uL) 0.08 H Immature Gran % (0.0 - 2.0 %) 0.7 Nucleated RBC % (0 - 0 %) 0.4 H Nucleated RBCs # (Man) (0.0 - 0.1 x10 3/uL) 0.04 Diagnosis, Assessment PlanProblem List/A P: 1. Acute cholangitis 2. Elevated LFTs 3. Liver abscess 4. Failure to thrive Free Text DxA P NotesFree text DxA P notes:68-year-old male admitted with abdominal pain, noted with NSTEMI, s/p stent placement to diagonal artery on 07/02/23. Still need staged PCI to RCA. Patient was noted with a liver abscess, seen by general surgery and GI, drain was placedby IR, has been tolerating antibiotics well.* Appreciated input from general surgery, GI, cardiology, and ID* Continue on broad-spectrum antibiotics* Hemoglobin is steady after 1 unit of PRBC yesterday* Encourage oral intake and therapy* I called his this morning and all concerns addressed* Patient is awaiting SNF placement at 1108 RPT #:[id number] OF REPORTPRProgress [id number]:59:00G.[id number] for patient lynnSSANOZKIVQLCAZ6800-82-37K65:08:20 [facility]L 2023-08-20 14:33:00 [id number]+MoxfUOHlLwbUuw/5wi6Xts eloXV59kg+Pdh+0xEt8 H3BidikoEQWbG8IEY1650-24-27P22:33:00 [facility] ([facility])Infectious Dis. Progress NoteREPORT#:[id number] REPORT STATUS: SignedREPORT INITIALIZATION DATE:08/20/23 TIME: 1432 PATIENT: MSISY CANALES UNIT #: [id number]#: [id number] [address] AGE: 68 SEX: M ATTEND: Raphael Ly MDADM AUTHOR: Henrry Heredia MDREPT SERVICE DT/TIME: 08/20/23 1433* ALL edits or amendments must be made on the electronic/computer document * SubjectiveChief complaint:Follow-up on bacteremia, hepatic abscess, cholecystitis, aspiration pneumoniaHPI:Review of systems is somewhat limited due to patient's limited responses. Fevercurve is downtrending. He remains on supplemental oxygen at 2 L/min via nasal cannula. present at bedside and case discussed with her at length. No major overnight events. Objective GeneralVS/I O:Vital SignsDate Temp Pulse Resp B/P B/P Mean Pulse Ox VuW027/-08/19 98.1-99.0 87-120 15-18 100-137/49-76 71.1-96.1 96-100 Last Documented: Result Date Time Pulse Ox 100 08/19 1216 B/P 137/76 08/19 1216 B/P Mean 96.1 08/19 1216 O2 Delivery Nasal cannula 08/19 1216 Temp 98.1 08/19 1216 Pulse 107 08/19 1216 Resp 17 08/19 1216 O2 Flow Rate 2 08/19 1015 FiO2 40 08/07 0752 Vital Signs: Date Time Temp Pulse Resp B/P B/P Pulse O2 O2 Flow FiO2 Mean Ox Delivery Rate 08/19 1216 98.1 107 17 137/76 96.1 100 Nasal cannula 08/19 1015 Nasal 2 cannula 08/19 0949 99.0 120 17 115/49 71.1 96 Nasal cannula 08/19 0350 98.6 98 17 100/59 72.4 99 Nasal cannula 08/18 2324 98.4 87 17 110/69 82.4 99 Nasal cannula 08/18 2000 Nasal 2 cannula 08/18 1909 98.4 110 15 104/59 74.2 96 Nasal cannula 08/18 1657 98.2 96 18 114/72 86.2 100 08/18 1453 98.4 106 127/68 87.6 98 24 hour I O ending at 0700: 08/19 0700 08/18 1900 Intake Total 360 Output Total Balance 360 Intake, Oral 360 Number 3 Incontinent Voids PATIENT WEIGHT: Weight (lb): 177Weight (oz): 14.61Weight (kg): 80.286 Physical ExamGeneral appearance: alert, awake, no acute distressWound/incision: Location:cholecystostomy tube and RUQ drain in placeCardiovascular: tachycardia, no murmurRespiratory: clear to auscultation, symmetric expansionAbdomen: non-tender, soft, no distention, percutaneous drains in place in RUQExtremities: no cyanosis, no edemaNeuro/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 Canales is a 68-year-old male with PMH of HTN, DMII, CAD s/p stent who came to [facility] initially with N/V and abdominal pain. His pain was started 2 days prior to admission. His work up showed elevated LFTs, bilirubin, troponin. His US abdomen showed cholelithiasis with distended gallbladder including material at the gallbladder neck concerning for impacted stone. Patient started on empiric antibiotics and had cultures done with blood culture showing gram negative bacilli. Patient has been febrile and tachycardic while here. GI and general surgery are consulted. Patient was found to have acute cholecystitis with a liver abscess. He had a drain in the gallbladder and in the abscess placed. Blood culture eventually grew Citrobacter and so did the abscess. *Fever--Recurrent after improvement--UA via straight cath (-)--Covid (-)--Flu (-)--F/U CT A/P, decreased liver absces; (+) LLL infiltrates c/w PNA*PNA--CT LLL infiltrates c/w aspiration*Bacteremia--Citrobacter--Source: Biliary*Liver abscess--MRCP showed 4.6 x 3.6 x 3.0 thick walled cystic lesion/fluid collection liver abutting GB fossa--S/P IR drain 08/05, cx Citrobacter*Acute cholecystitis--S/P IR placed cholecystotomy tube 3., cx Citrobacter*Acute stroke--MRI (+) subacute Left guo radiata--CTA neck (+) high grade stenosis*ARELY*DM2*HTN*CAD Plan: -On piperacillin-tazobactam. 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 at 1443 RPT #:[id number] OF REPORTPRProgress ngvm0494-52-81R97:33:00G.[id number] for patient fskwHNAQUOUMHSMZTT0346-24-46O25:44:01 [facility]ACL 2023-08-20 13:05:00 [id number] +M9MUpuddHkgQdYOzZH Lw8uKfPINL8aWix+i5289-55-84L73:05:00 [facility] CenterEndocrinology Progress NoteREPORT#:[id number] REPORT STATUS: SignedREPORT INITIALIZATION DATE:08/20/23 TIME: 1305 PATIENT: MISSY CANALES UNIT #: [id number]#: [id number] [address] AGE: 68 SEX: M ATTEND: Raphael Ly MDADM AUTHOR: Agus Duckworth APRNNPREPT SERVICE DT/TIME: 08/20/23 1130* ALL edits or amendments must be made on the electronic/computer document * SubjectiveChief complaint:f/u DM IIlabile diet pending SNF Objective GeneralVS:Last Documented: Result Date Time Pulse Ox 100 08/19 1216 B/P 137/76 08/19 1216 B/P Mean 96.1 08/19 1216 O2 Delivery Nasal cannula 08/19 1216 Temp 98.1 08/19 1216 Pulse 107 08/19 1216 Resp 17 08/19 1216 O2 Flow Rate 2 08/19 1015 FiO2 40 08/07 0752 PATIENT WEIGHT: Weight (lb): 177Weight (oz): 14.61Weight (kg): 80.286 Medications:Active Meds + DC'd Last 24 HrsTamsulosin HCl (Flomax 0.4 mg) 0.4 MG PC BK PO Insulin Human Lispro (HUMALOG) 4 UNIT AC SUBQ (DCr) Insulin Human Lispro (HUMALOG) 0 AC HS SUBQ Atorvastatin Calcium (LIPITOR) 40 MG BEDTIME PO Lactulose (LACTULOSE) 20 GM Q12HR PO Senna/Docusate Sodium (SENOKOT S) 1 TAB Q12HR PO Metoprolol Tartrate (LOPRESSOR) 50 MG Q8HR PO Clopidogrel Bisulfate (Plavix) 75 MG DAILY PO Tamsulosin HCl (Flomax 0.4 mg) 0.8 MG DAILY PO (DC) Allopurinol (ZYLOPRIM) 300 MG DAILY PO Aspirin (ASPIRIN) 81 MG DAILY PO Piperacillin Sod/Tazobactam Sod (ZOSYN 3.375GM) 3.375 GM Q8H IV Sodium Chloride (SODIUM CHLORIDE 0.9% 100 ML) 100 MLInsulin Glargine (Semglee) 25 UNIT DAILY SUBQ Acetaminophen (TYLENOL) 650 MG Q6H PRN PRN PO Bisacodyl (DULCOLAX) 10 MG DAILY PRN PRN RECTAL Polyethylene Glycol (MIRALAX) 17 GM Q12H PO Dextrose/Water (DEXTROSE 10% IN WATER) 125 ML ASDIR PRN IV (CKD) Dextrose/Water (DEXTROSE 10% IN WATER) 250 ML ASDIR PRN IV (CKD) Glucagon (GLUCAGON) 1 MG ASDIR PRN IM Sodium Chloride (SODIUM CHLORIDE 0.9%) 250 ML BOLUS PRN IV Latanoprost (XALATAN 2.5 ML OPHTH SOLN) 1 DROP BEDTIME EACH EYE Timolol Maleate (TIMOPTIC 0.5% 5 ML OPHTH SOLN) 1 DROP BID EACH EYE Brimonidine Tartrate (Alphagan-P 0.2% 5 ML OPHTH SOLN) 1 DROP Q8HR EACH EYE Hydralazine HCl (APRESOLINE) 10 MG Q6H PRN PRN IV Ondansetron HCl (ZOFRAN) 4 MG Q4H PRN PRN IV Dietitian nutrition assessmentThe data set between the solid lines has been imported from the dietitian's assessment. BMI Calculated: 27.7Nutrition related diagnosis: OverweightNutrition diagnosis details: BMI 25-29.9Nutrition problem: Inadequate oral intakeNutrition etiology: PT LETHARGIC /SWALLOWING Nutrition signs and symptoms: ENTERAL NUTRITION TO MEET , ENERGY NEEDS , (DIET ADVANCED TO PUREED AND, TOLERATED.)Nutrition prescription: 1. RECOMMEND PUREED CCD5 DIET. 2. PROVIDE GLUCERNA TID WITH MEALS. 3. MONITOR PO, WT, LABS, BM.Dietitian name: Lucía Torres, DIETAssessment completed: 08/20/23 Physical ExamGeneral appearance: alert, awakeHEENT: atraumatic, clear cornea, normocephalicNeck: suppleCardiovascular: regular rate rhythmRespiratory: on oxygenAbdomen: softGenitourinary: not indicatedExtremities: warmNeuro/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: alertSkin: warmFindings/data:Laboratory Tests: 08/19 08/19 08/19 08/19 08/18 1215 0947 0708 0345 2025Chemistry Sodium (134 - 147 mEq/L) 148 H Potassium (3.4 - 5.0 mEq/L) 3.2 L Chloride (100 - 108 mEq/L) 112 H Carbon Dioxide (21 - 33 mEq/l) 27 Anion Gap (0 - 20) 12 BUN (7 - 25 mg/dL) 19 Creatinine (0.6 - 1.3 mg/dL) 0.9 Glomerular Filtr Rate (70 - 80) 91.9 H Glucose (77 - 141 mg/dL) 110 POC Glucose (70 - 110 MG/DL) 115 H 100 135 H Calcium (8.0 - 10.5 mg/dL) 7.9 LHematology WBC (4.5 - 11.0 x10 3/uL) 12.4 H RBC (4.00 - 5.60 x10 6/uL) 2.04 L Hgb (12.5 - 16.9 g/dL) 6.3 *L Hct (37.5 - 50.7 %) 19.9 L MCV (81.0 - 99.0 fL) 97.5 MCH (27.0 - 33.0 pg) 30.9 MCHC (33.0 - 37.0 g/dL) 31.7 L RDW (11.5 - 14.5 %) 17.7 H Plt Count (150 - 400 x10 3/uL) 377 MPV (7.0 - 9.0 fL) 10.2 H Neut % (Auto) (56.0 - 77.0 %) 64.9 Lymph % (Auto) (14.0 - 32.0 %) 23.2 Evans % (Auto) (4.8 - 9.0 %) 9.2 H Eos % (Auto) (0.3 - 3.7 %) 1.8 Baso % (Auto) (0.0 - 2.0 %) 0.3 Neut # (Auto) (2.0 - 7.6 x10 3/uL) 8.06 H Lymph # (Auto) (1.0 - 3.8 x10 3/uL) 2.88 Evans # (Auto) (0.1 - 0.8 x10 3/uL) 1.14 H Eos # (Auto) (0.0 - 0.2 x10 3/uL) 0.22 H Baso # (Auto) (0.0 - 0.2 x10 3/uL) 0.04 Abs Immat Gran (auto) (0.00 - 0.03 0.08 Hx10 3/uL) Immature Gran % (0.0 - 2.0 %) 0.6 Nucleated RBC % (0 - 0 %) 0.0 Nucleated RBCs # (Man) (0.0 - 0.1 0.00x10 3/uL) 08/18 08/18 1655 1446 Chemistry POC Glucose (70 - 110 MG/DL) 162 H 212 H Recent Impressions:CAT SCAN - CT HEAD/BRAIN W/O CONT 08/18 1428 Report Impression - Status: SIGNED Entered: 08/19/2023 1524 IMPRESSION: Unchanged extent of small left guo radiata infarct described on MRIbrain 08/07/2023. No acute intracranial findings otherwise.Impression By: [email or web address] - Madhu Camacho M.D. Laboratory Tests: 08/19 08/19 08/19 08/19 08/18 1215 0947 0708 0345 5Chemistry Sodium (134 - 147 mEq/L) 148 H Potassium (3.4 - 5.0 mEq/L) 3.2 L Chloride (100 - 108 mEq/L) 112 H Carbon Dioxide (21 - 33 mEq/l) 27 Anion Gap (0 - 20) 12 BUN (7 - 25 mg/dL) 19 Creatinine (0.6 - 1.3 mg/dL) 0.9 Glomerular Filtr Rate (70 - 80) 91.9 H Glucose (77 - 141 mg/dL) 110 POC Glucose (70 - 110 MG/DL) 115 H 100 135 H Calcium (8.0 - 10.5 mg/dL) 7.9 LHematology WBC (4.5 - 11.0 x10 3/uL) 12.4 H RBC (4.00 - 5.60 x10 6/uL) 2.04 L Hgb (12.5 - 16.9 g/dL) 6.3 *L Hct (37.5 - 50.7 %) 19.9 L MCV (81.0 - 99.0 fL) 97.5 MCH (27.0 - 33.0 pg) 30.9 MCHC (33.0 - 37.0 g/dL) 31.7 L RDW (11.5 - 14.5 %) 17.7 H Plt Count (150 - 400 x10 3/uL) 377 MPV (7.0 - 9.0 fL) 10.2 H Neut % (Auto) (56.0 - 77.0 %) 64.9 Lymph % (Auto) (14.0 - 32.0 %) 23.2 Evans % (Auto) (4.8 - 9.0 %) 9.2 H Eos % (Auto) (0.3 - 3.7 %) 1.8 Baso % (Auto) (0.0 - 2.0 %) 0.3 Neut # (Auto) (2.0 - 7.6 x10 3/uL) 8.06 H Lymph # (Auto) (1.0 - 3.8 x10 3/uL) 2.88 Evans # (Auto) (0.1 - 0.8 x10 3/uL) 1.14 H Eos # (Auto) (0.0 - 0.2 x10 3/uL) 0.22 H Baso # (Auto) (0.0 - 0.2 x10 3/uL) 0.04 Abs Immat Gran (auto) (0.00 - 0.03 0.08 Hx10 3/uL) Immature Gran % (0.0 - 2.0 %) 0.6 Nucleated RBC % (0 - 0 %) 0.0 Nucleated RBCs # (Man) (0.0 - 0.1 0.00x10 3/uL) 08/18 08/18 1655 1446 Chemistry POC Glucose (70 - 110 MG/DL) 162 H 212 H Recent Impressions:CAT SCAN - CT HEAD/BRAIN W/O CONT 08/18 1428 Report Impression - Status: SIGNED Entered: 08/19/2023 1524 IMPRESSION: Unchanged extent of small left guo radiata infarct described on MRIbrain 08/07/2023. No acute intracranial findings otherwise.Impression By: Adrianna - Madhu Camacho M.D. Diagnosis, Assessment PlanFree Text A P:1.DM WQKorO2y 8.2adjust Lantus adjust Humalog monitor glucose diabetic diet DC Plan: Lantus, Humalog, follow at next available appointment. 2.Abnormal thyroid functions 08/06 TSH 0.07 FT4 1 recheck in a couple of days 3.Suspected ischemic strokeMRI brain without contrastEchocardiogramTelemetryneurology following 4.Coronary artery diseasePCI on July 03, 2023Echocardiogram preserved LVEFdual antiplateletscardiology following 5. Elevated LFTsGI following 6.MRCP with complex cystic fluid collectionpost drainage surgery following at 1212 at 1309 RPT #:[id number] OF REPORTPRProgress ewmk6198-35-69W34:05:00G.[id number] for patient jvvuATOPHQZMNECBCH8011-46-75Z40:12:36 [facility] 2023-08-20 10:51:00 [id number] wQNKNv6PgE+vSluN/h2 PqI/[id number]:51:00 [facility] ([facility])Cardiology Progress NoteREPORT#:[id number] REPORT STATUS: SignedREPORT INITIALIZATION DATE:08/20/23 TIME: 1051 PATIENT: MISSY CANALES UNIT #: [id number]#: [id number] [address] AGE: 68 SEX: M ATTEND: Raphael Ly MDADM AUTHOR: Esther Buckner AGACNPREPT SERVICE DT/TIME: 08/20/23 1051* ALL edits or amendments must be made on the electronic/computer document * SubjectiveComments:hgb 6.3 Objective GeneralVS/I O:24 hour I O ending at 0700: 08/19 0700 08/18 1900 Intake Total 360 Output Total Balance 360 Intake, Oral 360 Number 3 Incontinent Voids Vital Signs: Date Time Temp Pulse Resp B/P B/P Pulse O2 O2 Flow FiO2 Mean Ox Delivery Rate 08/19 1015 Nasal 2 cannula 08/19 0949 37.2 120 17 115/49 71.1 96 Nasal cannula 08/19 0350 37.0 98 17 100/59 72.4 99 Nasal cannula 08/18 2324 36.9 87 17 110/69 82.4 99 Nasal cannula 08/18 2000 Nasal 2 cannula 08/18 1909 36.9 110 15 104/59 74.2 96 Nasal cannula 08/18 1657 36.8 96 18 114/72 86.2 100 08/18 1453 36.9 106 127/68 87.6 98 08/18 1159 102 16 100 08/18 1158 37.3 102 16 107/72 83.5 08/18 1145 37.0 101 94/58 69.7 99 PATIENT WEIGHT: Weight (lb): 177Weight (oz): 14.61Weight (kg): 80.286 Medications:Active Meds + DC'd Last 24 HrsTamsulosin HCl (Flomax 0.4 mg) 0.4 MG PC BK PO Insulin Human Lispro (HUMALOG) 4 UNIT AC SUBQ Insulin Human Lispro (HUMALOG) 3 UNIT AC SUBQ (DC) Insulin Human Lispro (HUMALOG) 0 AC HS SUBQ Atorvastatin Calcium (LIPITOR) 40 MG BEDTIME PO Lactulose (LACTULOSE) 20 GM Q12HR PO Senna/Docusate Sodium (SENOKOT S) 1 TAB Q12HR PO Metoprolol Tartrate (LOPRESSOR) 50 MG Q8HR PO Clopidogrel Bisulfate (Plavix) 75 MG DAILY PO Tamsulosin HCl (Flomax 0.4 mg) 0.8 MG DAILY PO (DC) Allopurinol (ZYLOPRIM) 300 MG DAILY PO Aspirin (ASPIRIN) 81 MG DAILY PO Piperacillin Sod/Tazobactam Sod (ZOSYN 3.375GM) 3.375 GM Q8H IV Sodium Chloride (SODIUM CHLORIDE 0.9% 100 ML) 100 MLInsulin Glargine (Semglee) 25 UNIT DAILY SUBQ Acetaminophen (TYLENOL) 650 MG Q6H PRN PRN PO Bisacodyl (DULCOLAX) 10 MG DAILY PRN PRN RECTAL Polyethylene Glycol (MIRALAX) 17 GM Q12H PO Dextrose/Water (DEXTROSE 10% IN WATER) 125 ML ASDIR PRN IV (CKD) Dextrose/Water (DEXTROSE 10% IN WATER) 250 ML ASDIR PRN IV (CKD) Glucagon (GLUCAGON) 1 MG ASDIR PRN IM Sodium Chloride (SODIUM CHLORIDE 0.9%) 250 ML BOLUS PRN IV Latanoprost (XALATAN 2.5 ML OPHTH SOLN) 1 DROP BEDTIME EACH EYE Timolol Maleate (TIMOPTIC 0.5% 5 ML OPHTH SOLN) 1 DROP BID EACH EYE Brimonidine Tartrate (Alphagan-P 0.2% 5 ML OPHTH SOLN) 1 DROP Q8HR EACH EYE Hydralazine HCl (APRESOLINE) 10 MG Q6H PRN PRN IV Ondansetron HCl (ZOFRAN) 4 MG Q4H PRN PRN IV Physical ExamGeneral appearance: chronically ill appearing, frail, awakeNeck: non-tenderCardiovascular: CV assessment: irregular rhythm, tachycardiaRespiratory: decreased breath sounds, on oxygen, no distressAbdomen: softGenitourinary: no urinary catheterUpper extremity: UE assessment: normal capillary refill, normal temperatureLower extremity: LE assessment: no edemaMusculoskeletal: decreased ROMNeuro/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: right hemiparesisSkin: dryPsychiatry: normal affect ResultsFindings/Data:Laboratory Tests 08/19 08/19 08/18 08/18 08/18 0947 0345 2025 1655 1446 Chemistry Sodium (134 - 147 mEq/L) 148 H Potassium (3.4 - 5.0 mEq/L) 3.2 L Chloride (100 - 108 mEq/L) 112 H Carbon Dioxide (21 - 33 mEq/l) 27 Anion Gap (0 - 20) 12 BUN (7 - 25 mg/dL) 19 Creatinine (0.6 - 1.3 mg/dL) 0.9 Glomerular Filtr Rate (70 - 80) 91.9 H Glucose (77 - 141 mg/dL) 110 POC Glucose (70 - 110 MG/DL) 100 135 H 162 H 212 H Calcium (8.0 - 10.5 mg/dL) 7.9 L 08/18 1141 Chemistry POC Glucose (70 - 110 MG/DL) 199 H Laboratory Tests 08/19 0708 Hematology WBC (4.5 - 11.0 x10 3/uL) 12.4 H RBC (4.00 - 5.60 x10 6/uL) 2.04 L Hgb (12.5 - 16.9 g/dL) 6.3 *L Hct (37.5 - 50.7 %) 19.9 L MCV (81.0 - 99.0 fL) 97.5 MCH (27.0 - 33.0 pg) 30.9 MCHC (33.0 - 37.0 g/dL) 31.7 L RDW (11.5 - 14.5 %) 17.7 H Plt Count (150 - 400 x10 3/uL) 377 MPV (7.0 - 9.0 fL) 10.2 H Neut % (Auto) (56.0 - 77.0 %) 64.9 Lymph % (Auto) (14.0 - 32.0 %) 23.2 Evans % (Auto) (4.8 - 9.0 %) 9.2 H Eos % (Auto) (0.3 - 3.7 %) 1.8 Baso % (Auto) (0.0 - 2.0 %) 0.3 Neut # (Auto) (2.0 - 7.6 x10 3/uL) 8.06 H Lymph # (Auto) (1.0 - 3.8 x10 3/uL) 2.88 Evans # (Auto) (0.1 - 0.8 x10 3/uL) 1.14 H Eos # (Auto) (0.0 - 0.2 x10 3/uL) 0.22 H Baso # (Auto) (0.0 - 0.2 x10 3/uL) 0.04 Abs Immat Gran (auto) (0.00 - 0.03 x10 3/uL) 0.08 H Immature Gran % (0.0 - 2.0 %) 0.6 Nucleated RBC % (0 - 0 %) 0.0 Nucleated RBCs # (Man) (0.0 - 0.1 x10 3/uL) 0.00 Radiology data:Recent Impressions:CAT SCAN - CT HEAD/BRAIN W/O CONT 08/18 1428 Report Impression - Status: SIGNED Entered: 08/19/2023 1524 IMPRESSION: Unchanged extent of small left guo radiata infarct described on MRIbrain 08/07/2023. No acute intracranial findings otherwise.Impression By: [email or web address] - Madhu Camacho M.D. Results: labs reviewed, vital signs reviewed, rhythm personally rev'dTelemetry Interpretation:tachycardia with frequent PACs Diagnosis, Assessment PlanPlan discussed with: patient, spouse/partner, collaborating MD, nurse Free Text DxA P NotesFree Text DxA P Notes:1. Coronary artery disease s/p recent PCI/TERESA to diagonal artery* Troponin trend is flat* Hx of CABG (2000)* s/p stent placement to diagonal artery on 07/02/23. Still need staged PCI to RCA. * Continue Plavix and aspirin - do not stop Plavix d/t risk of stent thrombosis* Echocardiogram preserved LVEF. 2. Elevated LFTs/acute cholecystitis/liver abscess* s/p cholecystostomy tube placement. * GI on board* ID on board managing antibiotic 3. AMS: MRI brain showed small subacute ischemia in the L coronary radiata * MRI of the brain unchanged 4. Tachycardia with PVCs and PACs* Continue metoprolol 50 mg every 8 hours. * continuous telemetry monitoring 5. Anemia* hgb 6.3* agree with PRBC transfusion but will give total 2 units PRBCs given severe CAD. Give IV Lasix 20 mg in between transfusion. Medical decision making by Dr. Daniel. at 1612 at 0822 RPT #:[id number] OF REPORTPRProgress [id number]:51:00G.[id number] for patient [id number]:13:01 [facility]ACL 2023-08-20 08:28:00 [id number] +[id number]:28:00 [facility] ([facility])Hospitalist Progress NoteREPORT#:[id number] REPORT STATUS: SignedREPORT INITIALIZATION DATE:08/20/23 TIME: 827 PATIENT: MISSY CANALES UNIT #: [id number]#: [id number] [address] [birth year] AGE: 68 SEX: M ATTEND: Raphael Ly AUTHOR: Vitaly Jordan NPREPT SERVICE DT/TIME: 08/20/23827* ALL edits or amendments must be made on the electronic/computer document * Vitaly Jordan 08/20/23827:SubjectiveChief complaint:He is confused.Still waiting for SNF placement and choice.her hgb is low, no acute bleeding.Breathing is stable.no N/v.Unable to obtain: altered mental status, medical condition, patient condition Review of SystemsAll systems rev neg: except as notedUnable to obtain due to:AMS Objective GeneralVS/I O:Vital Signs: Date Time Temp Pulse Resp B/P B/P Pulse O2 O2 Flow FiO2 Mean Ox Delivery Rate 08/19 0350 37.0 98 17 100/59 72.4 99 Nasal cannula 08/18 2324 36.9 87 17 110/69 82.4 99 Nasal cannula 08/18 2000 Nasal 2 cannula 08/18 1909 36.9 110 15 104/59 74.2 96 Nasal cannula 08/18 1657 36.8 96 18 114/72 86.2 100 08/18 1453 36.9 106 127/68 87.6 98 08/18 1159 102 16 100 08/18 1158 37.3 102 16 107/72 83.5 08/18 1145 37.0 101 94/58 69.7 99 08/18 1045 37.9 16 08/18 1030 106 16 122/67 85.4 24 hour I O ending at 0700: 08/19 0700 08/18 1900 Intake Total 360 Output Total Balance 360 Intake, Oral 360 Number 3 Incontinent Voids PATIENT WEIGHT: Weight (lb): 177Weight (oz): 14.61Weight (kg): 80.286 Medications:Active Meds + DC'd Last 24 HrsTamsulosin HCl (Flomax 0.4 mg) 0.4 MG PC BK PO Insulin Human Lispro (HUMALOG) 4 UNIT AC SUBQ Insulin Human Lispro (HUMALOG) 3 UNIT AC SUBQ (DC) Insulin Human Lispro (HUMALOG) 0 AC HS SUBQ Atorvastatin Calcium (LIPITOR) 40 MG BEDTIME PO Lactulose (LACTULOSE) 20 GM Q12HR PO Senna/Docusate Sodium (SENOKOT S) 1 TAB Q12HR PO Metoprolol Tartrate (LOPRESSOR) 50 MG Q8HR PO Clopidogrel Bisulfate (Plavix) 75 MG DAILY PO Tamsulosin HCl (Flomax 0.4 mg) 0.8 MG DAILY PO (DC) Allopurinol (ZYLOPRIM) 300 MG DAILY PO Aspirin (ASPIRIN) 81 MG DAILY PO Piperacillin Sod/Tazobactam Sod (ZOSYN 3.375GM) 3.375 GM Q8H IV Sodium Chloride (SODIUM CHLORIDE 0.9% 100 ML) 100 MLInsulin Glargine (Semglee) 25 UNIT DAILY SUBQ Acetaminophen (TYLENOL) 650 MG Q6H PRN PRN PO Bisacodyl (DULCOLAX) 10 MG DAILY PRN PRN RECTAL Polyethylene Glycol (MIRALAX) 17 GM Q12H PO Dextrose/Water (DEXTROSE 10% IN WATER) 125 ML ASDIR PRN IV (CKD) Dextrose/Water (DEXTROSE 10% IN WATER) 250 ML ASDIR PRN IV (CKD) Glucagon (GLUCAGON) 1 MG ASDIR PRN IM Sodium Chloride (SODIUM CHLORIDE 0.9%) 250 ML BOLUS PRN IV Latanoprost (XALATAN 2.5 ML OPHTH SOLN) 1 DROP BEDTIME EACH EYE Timolol Maleate (TIMOPTIC 0.5% 5 ML OPHTH SOLN) 1 DROP BID EACH EYE Brimonidine Tartrate (Alphagan-P 0.2% 5 ML OPHTH SOLN) 1 DROP Q8HR EACH EYE Hydralazine HCl (APRESOLINE) 10 MG Q6H PRN PRN IV Ondansetron HCl (ZOFRAN) 4 MG Q4H PRN PRN IV Dietitian nutrition assessmentThe data set between the solid lines has been imported from the dietitian's assessment. BMI Calculated: 27.7Nutrition related diagnosis: OverweightNutrition diagnosis details: BMI 25-29.9Nutrition problem: Inadequate oral intakeNutrition etiology: PT LETHARGIC /SWALLOWING Nutrition signs and symptoms: ENTERAL NUTRITION TO MEET , ENERGY NEEDS , (DIET ADVANCED TO PUREED)Nutrition prescription: 1. RECOMMEND PUREED CCD5 DIET. 2. PROVIDE GLUCERNA TID WITH MEALS. 3. MONITOR PO, WT, LABS, BM.Dietitian name: Lucía Torres, DIETAssessment completed: 08/14/23 Physical ExamGeneral appearance: altered mental status, chronically ill appearing, frailHead/Eyes: atraumatic, normocephalic, PERRLAENT: moist mucosal membranes, normal dentitionCardiovascular: normal heart sounds, regular rate rhythmRespiratory: aerating well, symmetric expansion, no distressAbdomen: non-tender, normal bowel sounds, jtube present with minimal collectionGenitourinary: no bladder distention, no flank painExtremities: no clubbing, no cyanosisMusculoskeletal: no muscle spasmNeuro/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: abnormal speech, disoriented, alert ResultsFindings/Data:Laboratory Tests 08/19 08/18 08/18 08/18 08/18 0345 2025 1655 1446 1141 Chemistry Sodium (134 - 147 mEq/L) 148 H Potassium (3.4 - 5.0 mEq/L) 3.2 L Chloride (100 - 108 mEq/L) 112 H Carbon Dioxide (21 - 33 mEq/l) 27 Anion Gap (0 - 20) 12 BUN (7 - 25 mg/dL) 19 Creatinine (0.6 - 1.3 mg/dL) 0.9 Glomerular Filtr Rate (70 - 80) 91.9 H Glucose (77 - 141 mg/dL) 110 POC Glucose (70 - 110 MG/DL) 135 H 162 H 212 H 199 H Calcium (8.0 - 10.5 mg/dL) 7.9 L Laboratory Tests 08/19 0708 Hematology WBC (4.5 - 11.0 x10 3/uL) 12.4 H RBC (4.00 - 5.60 x10 6/uL) 2.04 L Hgb (12.5 - 16.9 g/dL) 6.3 *L Hct (37.5 - 50.7 %) 19.9 L MCV (81.0 - 99.0 fL) 97.5 MCH (27.0 - 33.0 pg) 30.9 MCHC (33.0 - 37.0 g/dL) 31.7 L RDW (11.5 - 14.5 %) 17.7 H Plt Count (150 - 400 x10 3/uL) 377 MPV (7.0 - 9.0 fL) 10.2 H Neut % (Auto) (56.0 - 77.0 %) 64.9 Lymph % (Auto) (14.0 - 32.0 %) 23.2 Evans % (Auto) (4.8 - 9.0 %) 9.2 H Eos % (Auto) (0.3 - 3.7 %) 1.8 Baso % (Auto) (0.0 - 2.0 %) 0.3 Neut # (Auto) (2.0 - 7.6 x10 3/uL) 8.06 H Lymph # (Auto) (1.0 - 3.8 x10 3/uL) 2.88 Evans # (Auto) (0.1 - 0.8 x10 3/uL) 1.14 H Eos # (Auto) (0.0 - 0.2 x10 3/uL) 0.22 H Baso # (Auto) (0.0 - 0.2 x10 3/uL) 0.04 Abs Immat Gran (auto) (0.00 - 0.03 x10 3/uL) 0.08 H Immature Gran % (0.0 - 2.0 %) 0.6 Nucleated RBC % (0 - 0 %) 0.0 Nucleated RBCs # (Man) (0.0 - 0.1 x10 3/uL) 0.00 Radiology data:Recent Impressions:CAT SCAN - CT HEAD/BRAIN W/O CONT 08/18 1428 Report Impression - Status: SIGNED Entered: 08/19/2023 1524 IMPRESSION: Unchanged extent of small left guo radiata infarct described on MRIbrain 08/07/2023. No acute intracranial findings otherwise.Impression By: [email or web address] - Madhu Camacho M.D. Results: labs reviewed, vital signs reviewed, vital signs stable, x-ray personally reviewed, current med profile rev'd Treatment Prophylaxis Treatment ProphylaxisOxygen: room air Diagnosis, Assessment PlanOrders: Procedure Date/time Status Palliative Care SPACECRAFT SYSTEMS ENGINEER Consult 08/19 812 Active Case Management Consult 08/19 812 Active Code status: full codePlan discussed with: patient, admitting physician, consultants, nurse Free Text DxA P NotesFree text DxA P notes:Assessment - Acute Cholangitis/Cholelithiasis with distended gallbladder status post IR drainage of gallbladder/liver abscess.- Acute stroke/Small focus of subacute ischemia in the left guo radiata.- Intraheptic abscess with Fistula to gallbaldder.- Acute blood Loss Anemia.- s/p IR drainage of liver abscess and gallbladder, drainage bilious today in IR drain, C tube bilious/bloody.- Superficial venous thrombosis of the right the left basilic vein.- Large amount of stool within the rectum.- Elevated LFTs and Bilirubin due to Possible Acute Chloangitis.- Elevated Troponin could be demand Ischemia.- Abd pain and N/V/Confusion- ARELY.- Hyperglycemia.- Sepsis; tachycardia, Bcx Gram neg rods- HX of HTN/DM type II/HLD and CAD s/p stent.- hypokalemia Plan: 08/20/23: Floor.Transfuse 2 units PRBCs.Pallaitve care consult due to her comorbidities.Monitor neuro status.Pending SNF choice.DELAY DUE to SNF choice.Continue Monitor Drain outpt.Tolerating diet.Pain meds.Antiemetics.Follow labs and replace as needed.Monitor Neuro status.Continue aspirin, Plavix.Aggressive PT and OT.Continue IV ABX for Bacteremia.Pain meds.Antiemetics.Glycemic control, Accu check AC HS, ISS, diabetic diet.GI and surgery following for elevated LFts and Liver abscess.Monitor. 08/19/23: Pending SNF choice.DELAY DUE to SNF choice.Continue Monitor Drain outpt.Tolerating diet.Pain meds.Antiemetics.Follow labs and replace as needed.Monitor Neuro status.Continue aspirin, Plavix.Aggressive PT and OT.Continue IV ABX for Bacteremia.Pain meds.Antiemetics.Glycemic control, Accu check AC HS, ISS, diabetic diet.GI and surgery following for elevated LFts and Liver abscess.Monitor. 08/16/23: Floor.He is waiting for SNF placement and choice.Continue Monitor Drain outpt.Tolerating diet.Pain meds.Antiemetics.Follow labs and replace as needed.Monitor Neuro status.Continue aspirin, Plavix.Aggressive PT and OT.Continue IV ABX for Bacteremia.Pain meds.Antiemetics.Glycemic control, Accu check AC HS, ISS, diabetic diet.GI and surgery following for elevated LFts and Liver abscess.Monitor. 08/15/23: Floor.He is waiting for SNF approval.Tolerating diet.Pain meds.Antiemetics.Follow labs and replace as needed.Monitor Neuro status.Continue aspirin, Plavix.Aggressive PT and OT.Continue IV ABX for Bacteremia.Pain meds.Antiemetics.Glycemic control, Accu check AC HS, ISS, diabetic diet.GI and surgery following for elevated LFts and Liver abscess.Monitor. 08/14/23: Floor.Pending SNF choice.He is stable.Passed swallow test and able to eat diet per speech.Pain meds.Antiemetics.Follow labs and replace as needed.He needs interval cholecystectomy in the future, currently controlled with cholecystostomy tube and IR drain for liver abscess, given recent stroke, recentPCI on DAPT and bacteremia, not a good operative candidate currently.Monitor Neuro status.He is on aspirin, Plavix.Aggressive PT and OT.Continue IV ABX for Bacteremia.Pain meds.Antiemetics.Glycemic control, Accu check AC HS, ISS, diabetic diet.GI and surgery following for elevated LFts and Liver abscess.Monitor. 08/12-Telemetry, strict vital monitor, strict LAURYN's, monitor, replace electrolytes-s/p IR drainage of liver abscess and gallbladder, drainage bilious today in IR drain, C tube bilious now; surgery following will eventually need cholecystectomy-CTA this 08/07 w/o obvious bleed, drains appear roughly in proper position-cont IV abx, ID on board-Dobbhoff tube in place, speech eval pending-Continue aspirin and Plavix-PT OT-Hyperglycemia noted, insulin sliding scale, adjust Lantus, endocrine following-Transfer to [facility] floor 08/12/23: ICU.He pulled out Dobhoff twice.Will restrain.Speech for swallow eval.He needs interval cholecystectomy in the future, currently controlled with cholecystostomy tube and IR drain for liver abscess, given recent stroke, recentPCI on DAPT and bacteremia, not a good operative candidate currently.Monitor Neuro status.He is on aspirin, Plavix.Aggressive PT and OT.Continue IV ABX for Bacteremia.Pain meds.Antiemetics.Glycemic control, Accu check AC HS, ISS, diabetic diet.GI and surgery following for elevated LFts and Liver abscess.Monitor. 08/11/23: ICU.MRI brain showed Acute stroke/Small focus of subacute ischemia in the left guo radiata.He is on aspirin, Plavix.Aggressive PT and OT.Continue IV ABX for Bacteremia.Pain meds.Antiemetics.Glycemic control, Accu check AC HS, ISS, diabetic diet.Monitor. 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, strict vital monitor, strict I O's, monitor, replace electrolytes-Status post cholecystostomy tube placement, IV ceftriaxone/IV Flagyl, GI consulted-Insulin sliding scale-s/p IR drainage of liver abscess and gallbladder, drainage bilious today in IR drain, C tube bilious/bloody, hgb 8.8 (9.5), stable, pt on DAPT, cont to monitor-CTA this 08/07 w/o obvious bleed, drains appear roughly in proper position-cont IV abx, ID on board-Advance diet as per surgery-Continue aspirin, Plavix-Cholecystectomy eventually needed however recent stroke, recent PCI/bacteremia,high risk for procedure-Stroke, neurology following Quality: Gen Med Crit Care Advanced Care Plan 65 or OlderDiscussed with: patient, surrogate decis. violetr Raphael Ly 08/20/23 2782:Attestations Physician AttestationAgree w/findings plan:Patient seen and examined, chart reviewed, I agree with the findings and plans as discussed with and documented by Vitaly Jackson NP at 0831 at 1812 RPT #:[id number] OF REPORTPRProgress [id number]:28:00G.[id number] for patient [id number]:31:36 HCACL 2023-08-19 23:39:00 [id number] lXrE8M/8NOEaooj7fIJ NYOA0/p2PvA1F26Q03215-28-97E28:39:00 [facility]Hospital[facility] Progress NoteREPORT#:[id number] REPORT STATUS: SignedREPORT INITIALIZATION DATE:08/19/23 TIME: 2338 PATIENT: MISSY CANALES UNIT #: [id number]#: [id number] [address] [birth year] AGE: 68 SEX: M ATTEND: Raphael Ly [facility] AUTHOR: Violette Rivero DOREPT SERVICE DT/TIME: 08/19/232338* ALL edits or amendments must be made on the electronic/computer document * SubjectiveChief complaint:Still waiting for SNF placement and choice.He is tolerating diet.Breathing is stable.no N/v. Review of SystemsConstitutional:Reports: generalized weakness, lethargy, malaise. Denies: chills, fever. Respiratory:Denies: SOB, wheezing. Cardiovascular:Denies: chest pain, palpitations. GI:Reports: abdominal pain. :Denies: dysuria. Neuro:Reports: confusion, focal weakness, gait problem. Denies: dizziness. Psych:Denies: agitation, anxiety. Objective GeneralVS/I O:Vital Signs: Date Time Temp Pulse Resp B/P B/P Pulse O2 O2 Flow FiO2 Mean Ox Delivery Rate 08/18 2324 36.9 87 17 110/69 82.4 99 Nasal cannula 08/18 1909 36.9 110 15 104/59 74.2 96 Nasal cannula 08/18 1657 36.8 96 18 114/72 86.2 100 08/18 1453 36.9 106 127/68 87.6 98 08/18 1159 102 16 100 08/18 1158 37.3 102 16 107/72 83.5 08/18 1145 37.0 101 94/58 69.7 99 08/18 1045 37.9 16 08/18 1030 106 16 122/67 85.4 08/18 0751 36.7 101 18 104/69 81.0 100 08/18 0402 39.1 106 18 100/63 74.9 98 Room air 08/17 2343 36.9 104 18 105/62 76.4 99 Room air 24 hour I O ending at 0700: 08/18 0700 08/17 1900 Intake Total 100 Output Total 740 Balance -640 Intake, Oral 100 Output, 40 Drainage Output, Urine 700 PATIENT WEIGHT: Weight (lb): 177Weight (oz): 14.61Weight (kg): 80.286 Medications:Active Meds + DC'd Last 24 HrsTamsulosin HCl (Flomax 0.4 mg) 0.4 MG PC BK PO Insulin Human Lispro (HUMALOG) 4 UNIT AC SUBQ Insulin Human Lispro (HUMALOG) 3 UNIT AC SUBQ (DC) Insulin Human Lispro (HUMALOG) 0 AC HS SUBQ Atorvastatin Calcium (LIPITOR) 40 MG BEDTIME PO Lactulose (LACTULOSE) 20 GM Q12HR PO Senna/Docusate Sodium (SENOKOT S) 1 TAB Q12HR PO Metoprolol Tartrate (LOPRESSOR) 50 MG Q8HR PO Clopidogrel Bisulfate (Plavix) 75 MG DAILY PO Tamsulosin HCl (Flomax 0.4 mg) 0.8 MG DAILY PO (DC) Allopurinol (ZYLOPRIM) 300 MG DAILY PO Aspirin (ASPIRIN) 81 MG DAILY PO Piperacillin Sod/Tazobactam Sod (ZOSYN 3.375GM) 3.375 GM Q8H IV Sodium Chloride (SODIUM CHLORIDE 0.9% 100 ML) 100 MLInsulin Glargine (Semglee) 25 UNIT DAILY SUBQ Acetaminophen (TYLENOL) 650 MG Q6H PRN PRN PO Bisacodyl (DULCOLAX) 10 MG DAILY PRN PRN RECTAL Polyethylene Glycol (MIRALAX) 17 GM Q12H PO Dextrose/Water (DEXTROSE 10% IN WATER) 125 ML ASDIR PRN IV (CKD) Dextrose/Water (DEXTROSE 10% IN WATER) 250 ML ASDIR PRN IV (CKD) Glucagon (GLUCAGON) 1 MG ASDIR PRN IM Sodium Chloride (SODIUM CHLORIDE 0.9%) 250 ML BOLUS PRN IV Latanoprost (XALATAN 2.5 ML OPHTH SOLN) 1 DROP BEDTIME EACH EYE Timolol Maleate (TIMOPTIC 0.5% 5 ML OPHTH SOLN) 1 DROP BID EACH EYE Brimonidine Tartrate (Alphagan-P 0.2% 5 ML OPHTH SOLN) 1 DROP Q8HR EACH EYE Hydralazine HCl (APRESOLINE) 10 MG Q6H PRN PRN IV Ondansetron HCl (ZOFRAN) 4 MG Q4H PRN PRN IV Physical ExamHead/Eyes: atraumatic, normocephalic, PERRLAENT: moist mucosal membranes, normal dentitionCardiovascular: normal heart sounds, regular rate rhythmRespiratory: aerating well, symmetric expansion, no distressAbdomen: non-tender, normal bowel sounds, jtube present with minimal collectionGenitourinary: no bladder distention, no flank painExtremities: no clubbing, no cyanosisMusculoskeletal: no muscle spasmNeuro/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: abnormal speech, alert Treatment Prophylaxis Treatment ProphylaxisOxygen: room air Diagnosis, Assessment Plan Free Text DxA P NotesFree text DxA P notes:Assessment - Acute Cholangitis/Cholelithiasis with distended gallbladder status post IR drainage of gallbladder/liver abscess- Acute stroke/Small focus of subacute ischemia in the left guo radiata.- Intraheptic abscess with Fistula to gallbaldder.- s/p IR drainage of liver abscess and gallbladder, drainage bilious today in IR drain, C tube bilious/bloody.- Superficial venous thrombosis of the right the left basilic vein.- Large amount of stool within the rectum.- Elevated LFTs and Bilirubin due to Possible Acute Chloangitis.- Elevated Troponin could be demand Ischemia.- Abd pain and N/V/Confusion- ARELY.- Hyperglycemia.- Sepsis; tachycardia, Bcx Gram neg rods- HX of HTN/DM type II/HLD and CAD s/p stent.- hypokalemia Plan: 08/19/23:Pending SNF choice.DELAY DUE to SNF choice.Continue Monitor Drain outpt.Tolerating diet.Pain meds.Antiemetics.Follow labs and replace as needed.Monitor Neuro status.Continue aspirin, Plavix.Aggressive PT and OT.Continue IV ABX for Bacteremia.Pain meds.Antiemetics.Glycemic control, Accu check AC HS, ISS, diabetic diet.GI and surgery following for elevated LFts and Liver abscess.Monitor. 08/16/23: Floor.He is waiting for SNF placement and choice.Continue Monitor Drain outpt.Tolerating diet.Pain meds.Antiemetics.Follow labs and replace as needed.Monitor Neuro status.Continue aspirin, Plavix.Aggressive PT and OT.Continue IV ABX for Bacteremia.Pain meds.Antiemetics.Glycemic control, Accu check AC HS, ISS, diabetic diet.GI and surgery following for elevated LFts and Liver abscess.Monitor. 08/15/23: Floor.He is waiting for SNF approval.Tolerating diet.Pain meds.Antiemetics.Follow labs and replace as needed.Monitor Neuro status.Continue aspirin, Plavix.Aggressive PT and OT.Continue IV ABX for Bacteremia.Pain meds.Antiemetics.Glycemic control, Accu check AC HS, ISS, diabetic diet.GI and surgery following for elevated LFts and Liver abscess.Monitor. 08/14/23: Floor.Pending SNF choice.He is stable.Passed swallow test and able to eat diet per speech.Pain meds.Antiemetics.Follow labs and replace as needed.He needs interval cholecystectomy in the future, currently controlled with cholecystostomy tube and IR drain for liver abscess, given recent stroke, recentPCI on DAPT and bacteremia, not a good operative candidate currently.Monitor Neuro status.He is on aspirin, Plavix.Aggressive PT and OT.Continue IV ABX for Bacteremia.Pain meds.Antiemetics.Glycemic control, Accu check AC HS, ISS, diabetic diet.GI and surgery following for elevated LFts and Liver abscess.Monitor. 08/12-Telemetry, strict vital monitor, strict LAURYN's, monitor, replace electrolytes-s/p IR drainage of liver abscess and gallbladder, drainage bilious today in IR drain, C tube bilious now; surgery following will eventually need cholecystectomy-CTA this 08/07 w/o obvious bleed, drains appear roughly in proper position-cont IV abx, ID on board-Dobbhoff tube in place, speech eval pending-Continue aspirin and Plavix-PT OT-Hyperglycemia noted, insulin sliding scale, adjust Lantus, endocrine following-Transfer to [facility] floor 08/12/23: ICU.He pulled out Dobhoff twice.Will restrain.Speech for swallow eval.He needs interval cholecystectomy in the future, currently controlled with cholecystostomy tube and IR drain for liver abscess, given recent stroke, recentPCI on DAPT and bacteremia, not a good operative candidate currently.Monitor Neuro status.He is on aspirin, Plavix.Aggressive PT and OT.Continue IV ABX for Bacteremia.Pain meds.Antiemetics.Glycemic control, Accu check AC HS, ISS, diabetic diet.GI and surgery following for elevated LFts and Liver abscess.Monitor. 08/11/23: ICU.MRI brain showed Acute stroke/Small focus of subacute ischemia in the left guo radiata.He is on aspirin, Plavix.Aggressive PT and OT.Continue IV ABX for Bacteremia.Pain meds.Antiemetics.Glycemic control, Accu check AC HS, ISS, diabetic diet.Monitor. 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, strict vital monitor, strict I O's, monitor, replace electrolytes-Status post cholecystostomy tube placement, IV ceftriaxone/IV Flagyl, GI consulted-Insulin sliding scale-s/p IR drainage of liver abscess and gallbladder, drainage bilious today in IR drain, C tube bilious/bloody, hgb 8.8 (9.5), stable, pt on DAPT, cont to monitor-CTA this 08/07 w/o obvious bleed, drains appear roughly in proper position-cont IV abx, ID on board-Advance diet as per surgery-Continue aspirin, Plavix-Cholecystectomy eventually needed however recent stroke, recent PCI/bacteremia,high risk for procedure-Stroke, neurology following Quality: Gen Med Crit Care Advanced Care Plan 65 or OlderDiscussed with: patient, surrogate decis. maker at 2341 RPT #:[id number] OF REPORTPRProgress [id number]:39:00G.[id number] for patient [id number]:41:48 [facility]ACL 2023-08-18 18:36:00 [id number] [id number] zb08fVWY/xuSCFyVD8190-92-88V42:36:00 [facility] ([facility])Hospitalist Progress NoteREPORT#:[id number] REPORT STATUS: SignedREPORT INITIALIZATION DATE:08/18/23 TIME: 1835 PATIENT: MISSY CANALES UNIT #: [id number]#: [id number] [address] [birth year] AGE: 68 SEX: M ATTEND: Raphael Ly MDADM AUTHOR: Violette Rivero DOREPT SERVICE DT/TIME: 08/18/231835* ALL edits or amendments must be made on the electronic/computer document * SubjectiveChief complaint:Still waiting for SNF placement and choice.He is tolerating diet.Breathing is stable.Not in distress.Less Abd pain, N/v. Review of SystemsConstitutional:Reports: generalized weakness. Denies: chills, fever. Respiratory:Denies: wheezing. Cardiovascular:Denies: chest pain, palpitations. GI:Denies: abdominal pain. :Denies: dysuria. Neuro:Reports: confusion. Denies: dizziness. Psych:Denies: agitation, anxiety. Objective GeneralVS/I O:Vital Signs: Date Time Temp Pulse Resp B/P B/P Pulse O2 O2 Flow FiO2 Mean Ox Delivery Rate 08/17 1611 38.2 108 16 102/59 0.0 100 08/17 1208 38.2 95 16 143/89 106.8 98 08/17 0900 Nasal 2 cannula 08/17 0735 36.8 86 16 137/74 95.1 100 08/17 0425 36.8 83 16 144/79 100.7 98 Room air 08/17 0059 37.1 08/168 37.9 77 17 121/59 79.5 100 08/17 1999 Nasal 3 cannula 08/16 1900 37.7 98 18 150/79 102.5 97 Room air 24 hour I O ending at 0700: 08/17 0700 08/16 1900 Intake Total 500.00 Output Total 890 35 Balance -890 465.00 Intake, IV 500.00 Output, 40 35 Drainage Output, Urine 850 PATIENT WEIGHT: Weight (lb): 177Weight (oz): 14.61Weight (kg): 80.286 Medications:Active Meds + DC'd Last 24 HrsPotassium Chloride (POTASSIUM CHLORIDE 20MEQ TAB.ER) 40 MEQ ONCE ONE PO (DC) Insulin Human Lispro (HUMALOG) 3 UNIT AC SUBQ Insulin Human Lispro (HUMALOG) 0 AC HS SUBQ Atorvastatin Calcium (LIPITOR) 40 MG BEDTIME PO Lactulose (LACTULOSE) 20 GM Q12HR PO Senna/Docusate Sodium (SENOKOT S) 1 TAB Q12HR PO Metoprolol Tartrate (LOPRESSOR) 50 MG Q8HR PO Clopidogrel Bisulfate (Plavix) 75 MG DAILY PO Tamsulosin HCl (Flomax 0.4 mg) 0.8 MG DAILY PO Allopurinol (ZYLOPRIM) 300 MG DAILY PO Aspirin (ASPIRIN) 81 MG DAILY PO Piperacillin Sod/Tazobactam Sod (ZOSYN 3.375GM) 3.375 GM Q8H IV Sodium Chloride (SODIUM CHLORIDE 0.9% 100 ML) 100 MLInsulin Glargine (Semglee) 25 UNIT DAILY SUBQ Acetaminophen (TYLENOL) 650 MG Q6H PRN PRN PO Bisacodyl (DULCOLAX) 10 MG DAILY PRN PRN RECTAL Polyethylene Glycol (MIRALAX) 17 GM Q12H PO Dextrose/Water (DEXTROSE 10% IN WATER) 125 ML ASDIR PRN IV (CKD) Dextrose/Water (DEXTROSE 10% IN WATER) 250 ML ASDIR PRN IV (CKD) Glucagon (GLUCAGON) 1 MG ASDIR PRN IM Sodium Chloride (SODIUM CHLORIDE 0.9%) 250 ML BOLUS PRN IV Latanoprost (XALATAN 2.5 ML OPHTH SOLN) 1 DROP BEDTIME EACH EYE Timolol Maleate (TIMOPTIC 0.5% 5 ML OPHTH SOLN) 1 DROP BID EACH EYE Brimonidine Tartrate (Alphagan-P 0.2% 5 ML OPHTH SOLN) 1 DROP Q8HR EACH EYE Hydralazine HCl (APRESOLINE) 10 MG Q6H PRN PRN IV Ondansetron HCl (ZOFRAN) 4 MG Q4H PRN PRN IV Physical ExamHead/Eyes: atraumatic, normocephalic, PERRLAENT: moist mucosal membranes, normal dentitionCardiovascular: normal heart sounds, regular rate rhythmRespiratory: aerating well, symmetric expansion, no distressAbdomen: non-tender, normal bowel soundsGenitourinary: no bladder distention, no flank painExtremities: no clubbing, no cyanosisMusculoskeletal: no muscle spasmNeuro/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: abnormal speech, alert ResultsFindings/Data:Laboratory Tests 08/17 08/17 08/17 08/17 08/16 1604 1204 0733 0518 1858 Chemistry Sodium (134 - 147 mEq/L) 142 Potassium (3.4 - 5.0 mEq/L) 2.9 *L Chloride (100 - 108 mEq/L) 107 Carbon Dioxide (21 - 33 mEq/l) 28 Anion Gap (0 - 20) 10 BUN (7 - 25 mg/dL) 7 Creatinine (0.6 - 1.3 mg/dL) 0.8 Glomerular Filtr Rate (70 - 80) 95.2 H Glucose (77 - 141 mg/dL) 102 POC Glucose (70 - 110 MG/DL) 197 H 156 H 115 H 137 H Calcium (8.0 - 10.5 mg/dL) 8.0 Total Bilirubin (0.0 - 1.0 mg/dL) 0.70 AST (8 - 34 IUnit/L) 73 H ALT (10 - 49 IUnit/L) 37 Total Alk Phosphatase (20 - 125 IUnit/L) 104 Total Protein (6.4 - 8.2 g/dL) 6.9 Albumin (3.4 - 5.0 g/dL) 1.90 L Treatment Prophylaxis Treatment ProphylaxisOxygen: room air Diagnosis, Assessment Plan Free Text DxA P NotesFree text DxA P notes:Assessment - Acute Cholangitis/Cholelithiasis with distended gallbladder status post IR drainage of gallbladder/liver abscess- Acute stroke/Small focus of subacute ischemia in the left guo radiata.- Intraheptic abscess with Fistula to gallbaldder.- s/p IR drainage of liver abscess and gallbladder, drainage bilious today in IR drain, C tube bilious/bloody.- Superficial venous thrombosis of the right the left basilic vein.- Large amount of stool within the rectum.- Elevated LFTs and Bilirubin due to Possible Acute Chloangitis.- Elevated Troponin could be demand Ischemia.- Abd pain and N/V/Confusion- ARELY.- Hyperglycemia.- Sepsis; tachycardia, Bcx Gram neg rods- HX of HTN/DM type II/HLD and CAD s/p stent.- hypokalemia Plan: 08/17/23:Pending SNF choice.DELAY DUE to SNF choice.Continue Monitor Drain outpt.Tolerating diet.Pain meds.Antiemetics.Follow labs and replace as needed.Monitor Neuro status.Continue aspirin, Plavix.Aggressive PT and OT.Continue IV ABX for Bacteremia.Pain meds.Antiemetics.Glycemic control, Accu check AC HS, ISS, diabetic diet.GI and surgery following for elevated LFts and Liver abscess.Monitor. 08/16/23: Floor.He is waiting for SNF placement and choice.Continue Monitor Drain outpt.Tolerating diet.Pain meds.Antiemetics.Follow labs and replace as needed.Monitor Neuro status.Continue aspirin, Plavix.Aggressive PT and OT.Continue IV ABX for Bacteremia.Pain meds.Antiemetics.Glycemic control, Accu check AC HS, ISS, diabetic diet.GI and surgery following for elevated LFts and Liver abscess.Monitor. 08/15/23: Floor.He is waiting for SNF approval.Tolerating diet.Pain meds.Antiemetics.Follow labs and replace as needed.Monitor Neuro status.Continue aspirin, Plavix.Aggressive PT and OT.Continue IV ABX for Bacteremia.Pain meds.Antiemetics.Glycemic control, Accu check AC HS, ISS, diabetic diet.GI and surgery following for elevated LFts and Liver abscess.Monitor. 08/14/23: Floor.Pending SNF choice.He is stable.Passed swallow test and able to eat diet per speech.Pain meds.Antiemetics.Follow labs and replace as needed.He needs interval cholecystectomy in the future, currently controlled with cholecystostomy tube and IR drain for liver abscess, given recent stroke, recentPCI on DAPT and bacteremia, not a good operative candidate currently.Monitor Neuro status.He is on aspirin, Plavix.Aggressive PT and OT.Continue IV ABX for Bacteremia.Pain meds.Antiemetics.Glycemic control, Accu check AC HS, ISS, diabetic diet.GI and surgery following for elevated LFts and Liver abscess.Monitor. 08/12-Telemetry, strict vital monitor, strict LAURYN's, monitor, replace electrolytes-s/p IR drainage of liver abscess and gallbladder, drainage bilious today in IR drain, C tube bilious now; surgery following will eventually need cholecystectomy-CTA this 08/07 w/o obvious bleed, drains appear roughly in proper position-cont IV abx, ID on board-Dobbhoff tube in place, speech eval pending-Continue aspirin and Plavix-PT OT-Hyperglycemia noted, insulin sliding scale, adjust Lantus, endocrine following-Transfer to [facility] floor 08/12/23: ICU.He pulled out Dobhoff twice.Will restrain.Speech for swallow eval.He needs interval cholecystectomy in the future, currently controlled with cholecystostomy tube and IR drain for liver abscess, given recent stroke, recentPCI on DAPT and bacteremia, not a good operative candidate currently.Monitor Neuro status.He is on aspirin, Plavix.Aggressive PT and OT.Continue IV ABX for Bacteremia.Pain meds.Antiemetics.Glycemic control, Accu check AC HS, ISS, diabetic diet.GI and surgery following for elevated LFts and Liver abscess.Monitor. 08/11/23: ICU.MRI brain showed Acute stroke/Small focus of subacute ischemia in the left guo radiata.He is on aspirin, Plavix.Aggressive PT and OT.Continue IV ABX for Bacteremia.Pain meds.Antiemetics.Glycemic control, Accu check AC HS, ISS, diabetic diet.Monitor. 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, strict vital monitor, strict I O's, monitor, replace electrolytes-Status post cholecystostomy tube placement, IV ceftriaxone/IV Flagyl, GI consulted-Insulin sliding scale-s/p IR drainage of liver abscess and gallbladder, drainage bilious today in IR drain, C tube bilious/bloody, hgb 8.8 (9.5), stable, pt on DAPT, cont to monitor-CTA this 08/07 w/o obvious bleed, drains appear roughly in proper position-cont IV abx, ID on board-Advance diet as per surgery-Continue aspirin, Plavix-Cholecystectomy eventually needed however recent stroke, recent PCI/bacteremia,high risk for procedure-Stroke, neurology following Quality: Gen Med Crit Care Advanced Care Plan 65 or OlderDiscussed with: patient, surrogate decis. maker at 1838 RPT #:[id number] OF REPORTPRProgress [id number]:36:00G.[id number] for patient lwhbJTAXHMJZJTWWAH4155-89-92B06:39:04 [facility] 2023-08-17 13:13:00 [id number] WE4yi7cMsebrQmOTK1u 36an6UpOT3ETkoZ5c6618-27-79V26:13:00 [facility] ([facility])Endocrinology Progress NoteREPORT#:[id number] REPORT STATUS: SignedREPORT INITIALIZATION DATE:08/17/23 TIME: 1313 PATIENT: MISSY CANALES UNIT #: [id number]#: [id number] [address] [birth year] AGE: 68 SEX: M ATTEND: Raphael Ly MDADM AUTHOR: Agus Duckworth APRNNPREPT SERVICE DT/TIME: 08/17/23 1140* ALL edits or amendments must be made on the electronic/computer document * SubjectiveChief complaint:f/u DM IItolerating dietpending SNF Objective GeneralVS:Last Documented: Result Date Time Pulse Ox 100 08/16 1140 B/P 148/78 08/16 1140 B/P Mean 101.4 08/16 1140 Temp 98.1 08/16 1140 Pulse 89 08/16 1140 Resp 18 08/16 1140 O2 Delivery Room air 08/16 0412 O2 Flow Rate 3 03/21 2000 FiO2 40 08/07 0752 PATIENT WEIGHT: Weight (lb): 177Weight (oz): 14.61Weight (kg): 80.286 Medications:Active Meds + DC'd Last 24 HrsInsulin Human Lispro (HUMALOG) 3 UNIT AC SUBQ Insulin Human Lispro (HUMALOG) 0 AC HS SUBQ Atorvastatin Calcium (LIPITOR) 40 MG BEDTIME PO Lactulose (LACTULOSE) 20 GM Q12HR PO Senna/Docusate Sodium (SENOKOT S) 1 TAB Q12HR PO Metoprolol Tartrate (LOPRESSOR) 50 MG Q8HR PO Clopidogrel Bisulfate (Plavix) 75 MG DAILY PO Tamsulosin HCl (Flomax 0.4 mg) 0.8 MG DAILY PO Allopurinol (ZYLOPRIM) 300 MG DAILY PO Aspirin (ASPIRIN) 81 MG DAILY PO Piperacillin Sod/Tazobactam Sod (ZOSYN 3.375GM) 3.375 GM Q8H IV Sodium Chloride (SODIUM CHLORIDE 0.9% 100 ML) 100 MLInsulin Glargine (Semglee) 25 UNIT DAILY SUBQ Acetaminophen (TYLENOL) 650 MG Q6H PRN PRN PO Bisacodyl (DULCOLAX) 10 MG DAILY PRN PRN RECTAL Polyethylene Glycol (MIRALAX) 17 GM Q12H PO Dextrose/Water (DEXTROSE 10% IN WATER) 125 ML ASDIR PRN IV (CKD) Dextrose/Water (DEXTROSE 10% IN WATER) 250 ML ASDIR PRN IV (CKD) Glucagon (GLUCAGON) 1 MG ASDIR PRN IM Sodium Chloride (SODIUM CHLORIDE 0.9%) 250 ML BOLUS PRN IV Latanoprost (XALATAN 2.5 ML OPHTH SOLN) 1 DROP BEDTIME EACH EYE Timolol Maleate (TIMOPTIC 0.5% 5 ML OPHTH SOLN) 1 DROP BID EACH EYE Brimonidine Tartrate (Alphagan-P 0.2% 5 ML OPHTH SOLN) 1 DROP Q8HR EACH EYE Hydralazine HCl (APRESOLINE) 10 MG Q6H PRN PRN IV Ondansetron HCl (ZOFRAN) 4 MG Q4H PRN PRN IV Dietitian nutrition assessmentThe data set between the solid lines has been imported from the dietitian's assessment. BMI Calculated: 27.7Nutrition related diagnosis: OverweightNutrition diagnosis details: BMI 25-29.9Nutrition problem: Inadequate oral intakeNutrition etiology: PT LETHARGIC /SWALLOWING Nutrition signs and symptoms: ENTERAL NUTRITION TO MEET , ENERGY NEEDS , (DIET ADVANCED TO PUREED)Nutrition prescription: 1. RECOMMEND PUREED CCD5 DIET. 2. PROVIDE GLUCERNA TID WITH MEALS. 3. MONITOR PO, WT, LABS, BM.Dietitian name: Lucía Torres, DIETAssessment completed: 08/14/23 Physical ExamGeneral appearance: alert, awakeHEENT: atraumatic, clear cornea, normocephalicNeck: suppleCardiovascular: regular rate rhythmRespiratory: on oxygenAbdomen: softGenitourinary: not indicatedExtremities: warmNeuro/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: alertSkin: warmFindings/data:Laboratory Tests: 08/16 08/16 08/16 08/15 08/15 1143 0731 0457 2138 1755Chemistry POC Glucose (70 - 110 MG/DL) 125 H 100 153 H 151 HHematology WBC (4.5 - 11.0 x10 3/uL) 12.2 H RBC (4.00 - 5.60 x10 6/uL) 2.90 L Hgb (12.5 - 16.9 g/dL) 8.8 L Hct (37.5 - 50.7 %) 27.8 L MCV (81.0 - 99.0 fL) 95.9 MCH (27.0 - 33.0 pg) 30.3 MCHC (33.0 - 37.0 g/dL) 31.7 L RDW (11.5 - 14.5 %) 17.9 H Plt Count (150 - 400 x10 3/uL) 322 MPV (7.0 - 9.0 fL) 11.8 H Neut % (Auto) (56.0 - 77.0 %) 67.5 Lymph % (Auto) (14.0 - 32.0 %) 21.2 Evans % (Auto) (4.8 - 9.0 %) 9.1 H Eos % (Auto) (0.3 - 3.7 %) 1.1 Baso % (Auto) (0.0 - 2.0 %) 0.4 Neut # (Auto) (2.0 - 7.6 x10 3/uL) 8.21 H Lymph # (Auto) (1.0 - 3.8 x10 3/uL) 2.57 Evans # (Auto) (0.1 - 0.8 x10 3/uL) 1.11 H Eos # (Auto) (0.0 - 0.2 x10 3/uL) 0.13 Baso # (Auto) (0.0 - 0.2 x10 3/uL) 0.05 Abs Immat Gran (auto) (0.00 - 0.03 0.08 Hx10 3/uL) Immature Gran % (0.0 - 2.0 %) 0.7 Nucleated RBC % (0 - 0 %) 0.0 Nucleated RBCs # (Man) (0.0 - 0.1 0.00x10 3/uL) 08/15 1337 Chemistry POC Glucose (70 - 110 MG/DL) 153 H Laboratory Tests: 08/16 08/16 08/16 08/15 08/15 1143 0731 0457 2138 1755Chemistry POC Glucose (70 - 110 MG/DL) 125 H 100 153 H 151 HHematology WBC (4.5 - 11.0 x10 3/uL) 12.2 H RBC (4.00 - 5.60 x10 6/uL) 2.90 L Hgb (12.5 - 16.9 g/dL) 8.8 L Hct (37.5 - 50.7 %) 27.8 L MCV (81.0 - 99.0 fL) 95.9 MCH (27.0 - 33.0 pg) 30.3 MCHC (33.0 - 37.0 g/dL) 31.7 L RDW (11.5 - 14.5 %) 17.9 H Plt Count (150 - 400 x10 3/uL) 322 MPV (7.0 - 9.0 fL) 11.8 H Neut % (Auto) (56.0 - 77.0 %) 67.5 Lymph % (Auto) (14.0 - 32.0 %) 21.2 Evans % (Auto) (4.8 - 9.0 %) 9.1 H Eos % (Auto) (0.3 - 3.7 %) 1.1 Baso % (Auto) (0.0 - 2.0 %) 0.4 Neut # (Auto) (2.0 - 7.6 x10 3/uL) 8.21 H Lymph # (Auto) (1.0 - 3.8 x10 3/uL) 2.57 Evans # (Auto) (0.1 - 0.8 x10 3/uL) 1.11 H Eos # (Auto) (0.0 - 0.2 x10 3/uL) 0.13 Baso # (Auto) (0.0 - 0.2 x10 3/uL) 0.05 Abs Immat Gran (auto) (0.00 - 0.03 0.08 Hx10 3/uL) Immature Gran % (0.0 - 2.0 %) 0.7 Nucleated RBC % (0 - 0 %) 0.0 Nucleated RBCs # (Man) (0.0 - 0.1 0.00x10 3/uL) 08/15 1337 Chemistry POC Glucose (70 - 110 MG/DL) 153 H Diagnosis, Assessment PlanFree Text A P:1.DM FLQbkD0c 8.2adjust Lantus adjust Humalog monitor glucose diabetic diet DC Plan: Lantus, Humalog, follow at next available appointment. 2.Abnormal thyroid functions 08/06 TSH 0.07 FT4 1 recheck in a couple of days 3.Suspected ischemic strokeMRI brain without contrastEchocardiogramTelemetryneurology following 4.Coronary artery diseasePCI on July 03, 2023Echocardiogram preserved LVEFdual antiplateletscardiology following 5. Elevated LFTsGI following 6.MRCP with complex cystic fluid collectionpost drainage surgery following at 1351 at 1415 RPT #:[id number] OF REPORTPRProgress [id number]:13:00G.[id number] for patient ajdqFYNYNHRDIOHIQG7332-87-17Q83:52:02 [facility] 2023-08-17 12:40:00 [id number]+PRILagjzvYcOjeJmP mK1ZWtgCNnSsTyVVYzq IbuX/X2W3ofpmv/[id number]:40:00 [facility] ([facility])Cardiology Progress NoteREPORT#:[id number] REPORT STATUS: SignedREPORT INITIALIZATION DATE:08/17/23 TIME: 1240 PATIENT: MISSY CANALES UNIT #: [id number]#: [id number] [address] [birth year] AGE: 68 SEX: M ATTEND: Raphael Ly MDADM AUTHOR: Esther Buckner AGACNPREPT SERVICE DT/TIME: 08/17/23 1240* ALL edits or amendments must be made on the electronic/computer document * SubjectivePatient reports:No: complaints. Objective GeneralVS/I O:24 hour I O ending at 0700: 08/16 0700 08/15 1900 Intake Total 340.00 440.00 Output Total 92 Balance 340.00 348.00 Intake, IV 100.00 200.00 Intake, Oral 240 240 Output, 92 Drainage Vital Signs: Date Time Temp Pulse Resp B/P B/P Pulse O2 O2 Flow FiO2 Mean Ox Delivery Rate 08/16 1140 36.7 89 18 148/78 101.4 100 08/16 0728 82 139/83 101.4 97 08/16 0727 37.2 83 16 143/91 108.2 98 08/16 0412 37.2 83 17 147/70 95.6 100 Room air 08/16 0007 36.9 78 18 116/58 77.5 96 Room air 08/15 2000 Nasal 3 cannula 08/15 1921 38.5 104 18 138/65 89.4 98 Room air 08/15 1544 37.4 69 18 147/76 99.4 94 Room air 08/15 1319 36.8 97 18 123/60 80.7 99 Room air PATIENT WEIGHT: Weight (lb): 177Weight (oz): 14.61Weight (kg): 80.286 Medications:Active Meds + DC'd Last 24 HrsInsulin Human Lispro (HUMALOG) 3 UNIT AC SUBQ Insulin Human Lispro (HUMALOG) 0 AC HS SUBQ Atorvastatin Calcium (LIPITOR) 40 MG BEDTIME PO Lactulose (LACTULOSE) 20 GM Q12HR PO Senna/Docusate Sodium (SENOKOT S) 1 TAB Q12HR PO Metoprolol Tartrate (LOPRESSOR) 50 MG Q8HR PO Clopidogrel Bisulfate (Plavix) 75 MG DAILY PO Tamsulosin HCl (Flomax 0.4 mg) 0.8 MG DAILY PO Allopurinol (ZYLOPRIM) 300 MG DAILY PO Aspirin (ASPIRIN) 81 MG DAILY PO Piperacillin Sod/Tazobactam Sod (ZOSYN 3.375GM) 3.375 GM Q8H IV Sodium Chloride (SODIUM CHLORIDE 0.9% 100 ML) 100 MLInsulin Glargine (Semglee) 25 UNIT DAILY SUBQ Acetaminophen (TYLENOL) 650 MG Q6H PRN PRN PO Bisacodyl (DULCOLAX) 10 MG DAILY PRN PRN RECTAL Polyethylene Glycol (MIRALAX) 17 GM Q12H PO Dextrose/Water (DEXTROSE 10% IN WATER) 125 ML ASDIR PRN IV (CKD) Dextrose/Water (DEXTROSE 10% IN WATER) 250 ML ASDIR PRN IV (CKD) Glucagon (GLUCAGON) 1 MG ASDIR PRN IM Sodium Chloride (SODIUM CHLORIDE 0.9%) 250 ML BOLUS PRN IV Latanoprost (XALATAN 2.5 ML OPHTH SOLN) 1 DROP BEDTIME EACH EYE Timolol Maleate (TIMOPTIC 0.5% 5 ML OPHTH SOLN) 1 DROP BID EACH EYE Brimonidine Tartrate (Alphagan-P 0.2% 5 ML OPHTH SOLN) 1 DROP Q8HR EACH EYE Hydralazine HCl (APRESOLINE) 10 MG Q6H PRN PRN IV Ondansetron HCl (ZOFRAN) 4 MG Q4H PRN PRN IV Physical ExamGeneral appearance: chronically ill appearing, frail, no acute distress, arousableCardiovascular: CV assessment: regular rate and rhythmRespiratory: decreased breath sounds, no distressAbdomen: softGenitourinary: no urinary catheterUpper extremity: UE assessment: normal capillary refill, normal temperatureLower extremity: LE assessment: no edemaMusculoskeletal: decreased ROMNeuro/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: abnormal speech, right hemiparesisSkin: dryPsychiatry: unable to evaluate ResultsFindings/Data:Laboratory Tests 08/16 08/16 08/15 08/15 08/15 1143 0731 2138 1755 1337 Chemistry POC Glucose (70 - 110 MG/DL) 125 H 100 153 H 151 H 153 H Laboratory Tests 08/16 0457 Hematology WBC (4.5 - 11.0 x10 3/uL) 12.2 H RBC (4.00 - 5.60 x10 6/uL) 2.90 L Hgb (12.5 - 16.9 g/dL) 8.8 L Hct (37.5 - 50.7 %) 27.8 L MCV (81.0 - 99.0 fL) 95.9 MCH (27.0 - 33.0 pg) 30.3 MCHC (33.0 - 37.0 g/dL) 31.7 L RDW (11.5 - 14.5 %) 17.9 H Plt Count (150 - 400 x10 3/uL) 322 MPV (7.0 - 9.0 fL) 11.8 H Neut % (Auto) (56.0 - 77.0 %) 67.5 Lymph % (Auto) (14.0 - 32.0 %) 21.2 Evans % (Auto) (4.8 - 9.0 %) 9.1 H Eos % (Auto) (0.3 - 3.7 %) 1.1 Baso % (Auto) (0.0 - 2.0 %) 0.4 Neut # (Auto) (2.0 - 7.6 x10 3/uL) 8.21 H Lymph # (Auto) (1.0 - 3.8 x10 3/uL) 2.57 Evans # (Auto) (0.1 - 0.8 x10 3/uL) 1.11 H Eos # (Auto) (0.0 - 0.2 x10 3/uL) 0.13 Baso # (Auto) (0.0 - 0.2 x10 3/uL) 0.05 Abs Immat Gran (auto) (0.00 - 0.03 x10 3/uL) 0.08 H Immature Gran % (0.0 - 2.0 %) 0.7 Nucleated RBC % (0 - 0 %) 0.0 Nucleated RBCs # (Man) (0.0 - 0.1 x10 3/uL) 0.00 Results: labs reviewed, vital signs reviewed Diagnosis, Assessment PlanPlan discussed with: collaborating MD Free Text DxA P NotesFree Text DxA P Notes:1. Coronary artery disease s/p recent PCI/TERESA to diagonal artery* Troponin trend is flat* Hx of CABG (2000)* s/p stent placement to diagonal artery on 07/02/23. Still need staged PCI to RCA. * Continue Plavix and aspirin - do not stop Plavix d/t risk of stent thrombosis* Echocardiogram preserved LVEF. 2. Elevated LFTs/acute cholecystitis/liver abscess* s/p cholecystostomy tube placement. * GI on board* ID on board managing antibiotic 3. AMS: MRI brain showed small subacute ischemia in the L coronary radiata 4. Tachycardia with frequent PVCs * Continue metoprolol 50 mg every 8 hours. * continuous telemetry monitoring Medical decision making by Dr. Daniel. at 1552 at 0822 RPT #:[id number] OF REPORTPRProgress [id number]:40:00G.[id number] for patient rnvlWVMOBLNXQUIOAK1740-42-07G82:52:38 [facility] 2023-08-17 07:49:00 [id number] cHSJRst/dNh3jAqkTrc ZcVAJnHSNjSaloPne6023-28-00O50:49:00 [facility]Hospital[facility] Progress NoteREPORT#:[id number] REPORT STATUS: SignedREPORT INITIALIZATION DATE:08/17/23 TIME: 07 PATIENT: MISSY CANALES UNIT #: [id number]#: [id number] [address] [birth year] AGE: 68 SEX: M ATTEND: Raphael Ly MDADM AUTHOR: Vitaly Jordan NPREPT SERVICE DT/TIME: 08/17/23 0749* ALL edits or amendments must be made on the electronic/computer document * Vitaly Jordan 08/17/23 0749:SubjectiveChief complaint:He had a episode of fever.Still waiting for SNF placement and choice.He is tolerating diet.Breathing is stable.Not in distress.Less Abd pain, N/v. Review of SystemsAll systems rev neg: except as notedUnable to obtain due to:not oriented to placed Objective GeneralVS/I O:Vital Signs: Date Time Temp Pulse Resp B/P B/P Pulse O2 O2 Flow FiO2 Mean Ox Delivery Rate 08/16 07 82 139/83 101.4 97 08/16 0727 37.2 83 16 143/91 108.2 98 08/16 0412 37.2 83 17 147/70 95.6 100 Room air 08/16 0007 36.9 78 18 116/58 77.5 96 Room air 08/15 2000 Nasal 3 cannula 08/15 1921 38.5 104 18 138/65 89.4 98 Room air 08/15 1544 37.4 69 18 147/76 99.4 94 Room air 08/15 1319 36.8 97 18 123/60 80.7 99 Room air 08/15 0800 Nasal 3 cannula 24 hour I O ending at 0700: 08/16 0700 08/15 1900 Intake Total 340.00 440.00 Output Total 92 Balance 340.00 348.00 Intake, IV 100.00 200.00 Intake, Oral 240 240 Output, 92 Drainage PATIENT WEIGHT: Weight (lb): 177Weight (oz): 14.61Weight (kg): 80.286 Medications:Active Meds + DC'd Last 24 HrsInsulin Human Lispro (HUMALOG) 3 UNIT AC SUBQ Insulin Human Lispro (HUMALOG) 0 AC HS SUBQ Atorvastatin Calcium (LIPITOR) 40 MG BEDTIME PO Lactulose (LACTULOSE) 20 GM Q12HR PO Senna/Docusate Sodium (SENOKOT S) 1 TAB Q12HR PO Metoprolol Tartrate (LOPRESSOR) 50 MG Q8HR PO Clopidogrel Bisulfate (Plavix) 75 MG DAILY PO Tamsulosin HCl (Flomax 0.4 mg) 0.8 MG DAILY PO Allopurinol (ZYLOPRIM) 300 MG DAILY PO Aspirin (ASPIRIN) 81 MG DAILY PO Piperacillin Sod/Tazobactam Sod (ZOSYN 3.375GM) 3.375 GM Q8H IV Sodium Chloride (SODIUM CHLORIDE 0.9% 100 ML) 100 MLInsulin Glargine (Semglee) 25 UNIT DAILY SUBQ Acetaminophen (TYLENOL) 650 MG Q6H PRN PRN PO Insulin Human Lispro (HUMALOG) 0 Q6H SUBQ (DC) Bisacodyl (DULCOLAX) 10 MG DAILY PRN PRN RECTAL Polyethylene Glycol (MIRALAX) 17 GM Q12H PO Dextrose/Water (DEXTROSE 10% IN WATER) 125 ML ASDIR PRN IV (CKD) Dextrose/Water (DEXTROSE 10% IN WATER) 250 ML ASDIR PRN IV (CKD) Glucagon (GLUCAGON) 1 MG ASDIR PRN IM Sodium Chloride (SODIUM CHLORIDE 0.9%) 250 ML BOLUS PRN IV Latanoprost (XALATAN 2.5 ML OPHTH SOLN) 1 DROP BEDTIME EACH EYE Timolol Maleate (TIMOPTIC 0.5% 5 ML OPHTH SOLN) 1 DROP BID EACH EYE Brimonidine Tartrate (Alphagan-P 0.2% 5 ML OPHTH SOLN) 1 DROP Q8HR EACH EYE Hydralazine HCl (APRESOLINE) 10 MG Q6H PRN PRN IV Ondansetron HCl (ZOFRAN) 4 MG Q4H PRN PRN IV Dietitian nutrition assessmentThe data set between the solid lines has been imported from the dietitian's assessment. BMI Calculated: 27.7Nutrition related diagnosis: OverweightNutrition diagnosis details: BMI 25-29.9Nutrition problem: Inadequate oral intakeNutrition etiology: PT LETHARGIC /SWALLOWING Nutrition signs and symptoms: ENTERAL NUTRITION TO MEET , ENERGY NEEDS , (DIET ADVANCED TO PUREED)Nutrition prescription: 1. RECOMMEND PUREED CCD5 DIET. 2. PROVIDE GLUCERNA TID WITH MEALS. 3. MONITOR PO, WT, LABS, BM.Dietitian name: Lucía Torres, DIETAssessment completed: 08/14/23 Physical ExamGeneral appearance: frail, awakeHead/Eyes: atraumatic, normocephalic, PERRLAENT: moist mucosal membranes, normal dentitionCardiovascular: normal heart sounds, regular rate rhythmRespiratory: aerating well, symmetric expansion, no distressAbdomen: non-tender, normal bowel soundsGenitourinary: no bladder distention, no flank painExtremities: no clubbing, no cyanosisMusculoskeletal: no muscle spasmNeuro/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: abnormal speech, alert ResultsFindings/Data:Laboratory Tests 08/15 08/15 08/15 2138 [id number] Chemistry POC Glucose (70 - 110 MG/DL) 153 H 151 H 153 H Laboratory Tests 08/16 0457 Hematology WBC (4.5 - 11.0 x10 3/uL) 12.2 H RBC (4.00 - 5.60 x10 6/uL) 2.90 L Hgb (12.5 - 16.9 g/dL) 8.8 L Hct (37.5 - 50.7 %) 27.8 L MCV (81.0 - 99.0 fL) 95.9 MCH (27.0 - 33.0 pg) 30.3 MCHC (33.0 - 37.0 g/dL) 31.7 L RDW (11.5 - 14.5 %) 17.9 H Plt Count (150 - 400 x10 3/uL) 322 MPV (7.0 - 9.0 fL) 11.8 H Neut % (Auto) (56.0 - 77.0 %) 67.5 Lymph % (Auto) (14.0 - 32.0 %) 21.2 Evans % (Auto) (4.8 - 9.0 %) 9.1 H Eos % (Auto) (0.3 - 3.7 %) 1.1 Baso % (Auto) (0.0 - 2.0 %) 0.4 Neut # (Auto) (2.0 - 7.6 x10 3/uL) 8.21 H Lymph # (Auto) (1.0 - 3.8 x10 3/uL) 2.57 Evans # (Auto) (0.1 - 0.8 x10 3/uL) 1.11 H Eos # (Auto) (0.0 - 0.2 x10 3/uL) 0.13 Baso # (Auto) (0.0 - 0.2 x10 3/uL) 0.05 Abs Immat Gran (auto) (0.00 - 0.03 x10 3/uL) 0.08 H Immature Gran % (0.0 - 2.0 %) 0.7 Nucleated RBC % (0 - 0 %) 0.0 Nucleated RBCs # (Man) (0.0 - 0.1 x10 3/uL) 0.00 Results: labs reviewed, vital signs reviewed, vital signs stable, current med profile rev'd Treatment Prophylaxis Treatment ProphylaxisOxygen: room air Diagnosis, Assessment PlanOrders: Procedure Date/time Status RECOLLECT MONIKA HIGGINSS5 [employer] 08/16 2441 Active Code status: full codePlan discussed with: patient, admitting physician, consultants, nurse Free Text DxA P NotesFree text DxA P notes:Assessment - Acute Cholangitis/Cholelithiasis with distended gallbladder status post IR drainage of gallbladder/liver abscess- Acute stroke/Small focus of subacute ischemia in the left guo radiata.- Intraheptic abscess with Fistula to gallbaldder.- s/p IR drainage of liver abscess and gallbladder, drainage bilious today in IR drain, C tube bilious/bloody.- Superficial venous thrombosis of the right the left basilic vein.- Large amount of stool within the rectum.- Elevated LFTs and Bilirubin due to Possible Acute Chloangitis.- Elevated Troponin could be demand Ischemia.- Abd pain and N/V/Confusion- ARELY.- Hyperglycemia.- Sepsis; tachycardia, Bcx Gram neg rods- HX of HTN/DM type II/HLD and CAD s/p stent. Plan: 08/17/23: Floor.He had a episode of fever.Pending SNF choice.DELAY DUE to SNF choice.Continue Monitor Drain outpt.Tolerating diet.Pain meds.Antiemetics.Follow labs and replace as needed.Monitor Neuro status.Continue aspirin, Plavix.Aggressive PT and OT.Continue IV ABX for Bacteremia.Pain meds.Antiemetics.Glycemic control, Accu check AC HS, ISS, diabetic diet.GI and surgery following for elevated LFts and Liver abscess.Monitor. 08/16/23: Floor.He is waiting for SNF placement and choice.Continue Monitor Drain outpt.Tolerating diet.Pain meds.Antiemetics.Follow labs and replace as needed.Monitor Neuro status.Continue aspirin, Plavix.Aggressive PT and OT.Continue IV ABX for Bacteremia.Pain meds.Antiemetics.Glycemic control, Accu check AC HS, ISS, diabetic diet.GI and surgery following for elevated LFts and Liver abscess.Monitor. 08/15/23: Floor.He is waiting for SNF approval.Tolerating diet.Pain meds.Antiemetics.Follow labs and replace as needed.Monitor Neuro status.Continue aspirin, Plavix.Aggressive PT and OT.Continue IV ABX for Bacteremia.Pain meds.Antiemetics.Glycemic control, Accu check AC HS, ISS, diabetic diet.GI and surgery following for elevated LFts and Liver abscess.Monitor. 08/14/23: Floor.Pending SNF choice.He is stable.Passed swallow test and able to eat diet per speech.Pain meds.Antiemetics.Follow labs and replace as needed.He needs interval cholecystectomy in the future, currently controlled with cholecystostomy tube and IR drain for liver abscess, given recent stroke, recentPCI on DAPT and bacteremia, not a good operative candidate currently.Monitor Neuro status.He is on aspirin, Plavix.Aggressive PT and OT.Continue IV ABX for Bacteremia.Pain meds.Antiemetics.Glycemic control, Accu check AC HS, ISS, diabetic diet.GI and surgery following for elevated LFts and Liver abscess.Monitor. 08/12-Telemetry, strict vital monitor, strict LAURYN's, monitor, replace electrolytes-s/p IR drainage of liver abscess and gallbladder, drainage bilious today in IR drain, C tube bilious now; surgery following will eventually need cholecystectomy-CTA this 3/13 w/o obvious bleed, drains appear roughly in proper position-cont IV abx, ID on board-Dobbhoff tube in place, speech eval pending-Continue aspirin and Plavix-PT OT-Hyperglycemia noted, insulin sliding scale, adjust Lantus, endocrine following-Transfer to [facility] floor 08/12/23: ICU.He pulled out Dobhoff twice.Will restrain.Speech for swallow eval.He needs interval cholecystectomy in the future, currently controlled with cholecystostomy tube and IR drain for liver abscess, given recent stroke, recentPCI on DAPT and bacteremia, not a good operative candidate currently.Monitor Neuro status.He is on aspirin, Plavix.Aggressive PT and OT.Continue IV ABX for Bacteremia.Pain meds.Antiemetics.Glycemic control, Accu check AC HS, ISS, diabetic diet.GI and surgery following for elevated LFts and Liver abscess.Monitor. 08/11/23: ICU.MRI brain showed Acute stroke/Small focus of subacute ischemia in the left guo radiata.He is on aspirin, Plavix.Aggressive PT and OT.Continue IV ABX for Bacteremia.Pain meds.Antiemetics.Glycemic control, Accu check AC HS, ISS, diabetic diet.Monitor. 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, strict vital monitor, strict I O's, monitor, replace electrolytes-Status post cholecystostomy tube placement, IV ceftriaxone/IV Flagyl, GI consulted-Insulin sliding scale-s/p IR drainage of liver abscess and gallbladder, drainage bilious today in IR drain, C tube bilious/bloody, hgb 8.8 (9.5), stable, pt on DAPT, cont to monitor-CTA this 08/07 w/o obvious bleed, drains appear roughly in proper position-cont IV abx, ID on board-Advance diet as per surgery-Continue aspirin, Plavix-Cholecystectomy eventually needed however recent stroke, recent PCI/bacteremia,high risk for procedure-Stroke, neurology following Quality: Gen Med Crit Care Advanced Care Plan 65 or OlderDiscussed with: patient, surrogate decis. maker Raphael Ly 08/20/23 0912:Attestations Physician AttestationAgree w/findings plan:Patient seen and examined, chart reviewed, I agree with the findings and plans as discussed with and documented by Vitaly Jackson NP at 0751 at 1811 RPT #:[id number] OF REPORTPRProgress [id number]:49:00G.[id number] for patient revjUTAQKGSLRAKZIA5399-36-30O29:52:19 [facility] 2023-08-17 07:47:00 [id number] US2zzByS5+lqb2hk5kf UyQCjovV2xpo6Yz2S7742-10-97X11:47:00 [facility] ([facility])Infectious Dis. Progress NoteREPORT#:[id number] REPORT STATUS: SignedREPORT INITIALIZATION DATE:08/17/23 TIME: 746 PATIENT: MISSY CANALES UNIT #: [id number]#: [id number] [address] [birth year] AGE: 68 SEX: M ATTEND: Raphael Ly [facility] AUTHOR: Ahsan Mullen MDREPT SERVICE DT/TIME: 08/17/23 0747* ALL edits or amendments must be made on the electronic/computer document * SubjectiveChief complaint:Abd pain, N/V F/U BacteremiaHPI:68 yo M with PMH of HTN, DMII, CAD s/p stent came [facility] initially with N/V and abd pain, His pain was started 2 days ago. He is also feeling very weak, He came to ER and his work up showed elevated LFTs, Bilirubin, Troponin. His UA abdomen showed Cholelithiasis with distended gallbladder including material at the gallbladder neck concerning for impacted stone. Patient started on empiric antibiotics and had cultures done with blood culture showing gram negative bacilli. Patient has been febrile and tachycardic while here. GI and general surgery are consulted. Patient was found to have acute cholecystitis with a liver abscess drain in the gallbladder and in the abscess were placed. Blood culture eventually grew Citrobacter and so did the abscessPatient reports:Yes: feeling better, fever. No: complaints, abdominal pain, back pain, bowel movement, burning with urination, cough, diarrhea, headache, nausea, pain, pain controlled, shortness of breath, vomiting, wheezing. Review of SystemsAll systems rev neg: except as marked Objective GeneralVS/I O:Vital Signs Date Temp Pulse Resp B/P B/P Mean Pulse Ox FiO2 08/16 98.1-99.9 78-98 16- 116-150/58-91 77.5-108.2 96-100 Last Documented: Result Date Time Pulse Ox 97 08/16 1899 B/P 150/79 08/16 1899 B/P Mean 102.5 08/16 1899 O2 Delivery Room air 08/16 1899 Temp 99.9 08/16 1899 Pulse 98 08/16 1900 Resp 18 08/16 1900 O2 Flow Rate 3 08/15 2000 FiO2 40 08/07 0752 Vital Signs: Date Time Temp Pulse Resp B/P B/P Pulse O2 O2 Flow FiO2 Mean Ox Delivery Rate 08/16 1899 99.9 98 18 150/79 102.5 97 Room air 08/16 1636 99.5 94 20 121/83 95.5 97 08/16 1140 98.1 89 18 148/78 101.4 100 08/16 0728 82 139/83 101.4 97 08/16 0727 99.0 83 16 143/91 108.2 98 08/16 0412 99.0 83 17 147/70 95.6 100 Room air 08/16 0007 98.4 78 18 116/58 77.5 96 Room air 24 hour I O ending at 0700: 08/16 0700 08/15 1900 Intake Total 340.00 440.00 Output Total 92 Balance 340.00 348.00 Intake, IV 100.00 200.00 Intake, Oral 240 240 Output, 92 Drainage PATIENT WEIGHT: Weight (lb): 177Weight (oz): 14.61Weight (kg): 80.286 Medications:Active Meds + DC'd Last 24 HrsInsulin Human Lispro (HUMALOG) 3 UNIT AC SUBQ Insulin Human Lispro (HUMALOG) 0 AC HS SUBQ Atorvastatin Calcium (LIPITOR) 40 MG BEDTIME PO Lactulose (LACTULOSE) 20 GM Q12HR PO Senna/Docusate Sodium (SENOKOT S) 1 TAB Q12HR PO Metoprolol Tartrate (LOPRESSOR) 50 MG Q8HR PO Clopidogrel Bisulfate (Plavix) 75 MG DAILY PO Tamsulosin HCl (Flomax 0.4 mg) 0.8 MG DAILY PO Allopurinol (ZYLOPRIM) 300 MG DAILY PO Aspirin (ASPIRIN) 81 MG DAILY PO Piperacillin Sod/Tazobactam Sod (ZOSYN 3.375GM) 3.375 GM Q8H IV Sodium Chloride (SODIUM CHLORIDE 0.9% 100 ML) 100 MLInsulin Glargine (Semglee) 25 UNIT DAILY SUBQ Acetaminophen (TYLENOL) 650 MG Q6H PRN PRN PO Bisacodyl (DULCOLAX) 10 MG DAILY PRN PRN RECTAL Polyethylene Glycol (MIRALAX) 17 GM Q12H PO Dextrose/Water (DEXTROSE 10% IN WATER) 125 ML ASDIR PRN IV (CKD) Dextrose/Water (DEXTROSE 10% IN WATER) 250 ML ASDIR PRN IV (CKD) Glucagon (GLUCAGON) 1 MG ASDIR PRN IM Sodium Chloride (SODIUM CHLORIDE 0.9%) 250 ML BOLUS PRN IV Latanoprost (XALATAN 2.5 ML OPHTH SOLN) 1 DROP BEDTIME EACH EYE Timolol Maleate (TIMOPTIC 0.5% 5 ML OPHTH SOLN) 1 DROP BID EACH EYE Brimonidine Tartrate (Alphagan-P 0.2% 5 ML OPHTH SOLN) 1 DROP Q8HR EACH EYE Hydralazine HCl (APRESOLINE) 10 MG Q6H PRN PRN IV Ondansetron HCl (ZOFRAN) 4 MG Q4H PRN PRN IV Physical ExamGeneral appearance: alert, awakeWound/incision: Location:Cholecystostomy tube- bilious RUQ drain- seropurulentHead/Eyes: atraumatic, normocephalicCardiovascular: tachycardia, no murmurRespiratory: clear to auscultation, aerating well, symmetric expansionAbdomen: non-tender, soft, no distention, percutaneous drains in place in RUQExtremities: no cyanosis, no edemaNeuro/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: alertSkin: dry, no rashPsychiatry: unable to evaluate ResultsFindings/Data:Laboratory Tests 03/22 03/22 03/22 03/22 1858 1643 1143 0731 Chemistry POC Glucose (70 - 110 MG/DL) 137 H 193 H 125 H 100 Laboratory Tests 08/16 0457 Hematology WBC (4.5 - 11.0 x10 3/uL) 12.2 H RBC (4.00 - 5.60 x10 6/uL) 2.90 L Hgb (12.5 - 16.9 g/dL) 8.8 L Hct (37.5 - 50.7 %) 27.8 L MCV (81.0 - 99.0 fL) 95.9 MCH (27.0 - 33.0 pg) 30.3 MCHC (33.0 - 37.0 g/dL) 31.7 L RDW (11.5 - 14.5 %) 17.9 H Plt Count (150 - 400 x10 3/uL) 322 MPV (7.0 - 9.0 fL) 11.8 H Neut % (Auto) (56.0 - 77.0 %) 67.5 Lymph % (Auto) (14.0 - 32.0 %) 21.2 Evans % (Auto) (4.8 - 9.0 %) 9.1 H Eos % (Auto) (0.3 - 3.7 %) 1.1 Baso % (Auto) (0.0 - 2.0 %) 0.4 Neut # (Auto) (2.0 - 7.6 x10 3/uL) 8.21 H Lymph # (Auto) (1.0 - 3.8 x10 3/uL) 2.57 Evans # (Auto) (0.1 - 0.8 x10 3/uL) 1.11 H Eos # (Auto) (0.0 - 0.2 x10 3/uL) 0.13 Baso # (Auto) (0.0 - 0.2 x10 3/uL) 0.05 Abs Immat Gran (auto) (0.00 - 0.03 x10 3/uL) 0.08 H Immature Gran % (0.0 - 2.0 %) 0.7 Nucleated RBC % (0 - 0 %) 0.0 Nucleated RBCs # (Man) (0.0 - 0.1 x10 3/uL) 0.00 Results: labs reviewed, vital signs reviewed, current med profile rev'd Diagnosis, Assessment PlanFree Text A P:Fever--Recurrent after improvement--UA via straight cath (-)--Covid (-)--Flu (-)--F/U CT A/P, decreased liver absces; (+) LLL infiltrates c/w PNAPNA--CT LLL infiltrates c/w aspirationBacteremia--Citrobacter--Source: BiliaryLiver abscess--MRCP showed 4.6 x 3.6 x 3.0 thick walled cystic lesion/fluid collection liver abutting GB fossa--S/P IR drain 08/05, cx CitrobacterAcute cholecystitis--S/P IR placed cholecystotomy tube ., cx CitrobacterAcute stroke--MRI (+) subacute Left guo radiata--CTA neck (+) high grade [id number] On Zosyn, abx broaded 08/13 (Day 3) of 7, then transition back to Rocephin/Flagyl(+ 10 days of Rocephin, Flagyl) 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, with f/u CT to ensure resolution of abcess prior to stopping abxAnd had single spike of fever yesterday resolved, monitor patient for any aspiration at 2246 RPT #:[id number] OF REPORTPRProgress [id number]:47:00G.[id number] for patient pqvaBOBKSGWFSGFYEJ9071-61-31R46:47:08 [facility] 2023-08-16 13:07:00 [id number] DmNK84+M/Q74h264ar6 FhyeSeNUh2n9UL2bn8955-98-87Y00:07:00 [facility] ([facility])Gastroenterology Progress NoteREPORT#:[id number] REPORT STATUS: SignedREPORT INITIALIZATION DATE:08/16/23 TIME: 1307 PATIENT: MISSY CANALES UNIT #: [id number]#: [id number] ROOM/BED: 650-1DOB: [birth year] AGE: 68 SEX: M ATTEND: Raphael Ly [facility] AUTHOR: Lisa Cancino MDREPT SERVICE DT/TIME: 08/16/23 0343* ALL edits or amendments must be made on the electronic/computer document * SubjectiveChief complaint:Elevated LFtsHPI:68 year old man s/p cardiac stents 2 weeks ago who was sent to the hospital withelevated LFTs and possible acute cholecystitis. Pt had a stenet recently placed and was started on DAPT. Pt had labs showing elevated LFTs and was sent here forevaluation. Labs showed leukocytosis 15k. Elevated Tbili 3.7. Dbili 2.8. AST 79,ALT 105 and ALP 225. RUQ U/S showed possible cholecystitis and normal CBD of 4 mm in diatmeter. Pt denies pain. No dark urine or peyton-color stool 08/03; patient feels well. MRCP reviewed. No choledocholithiasis. Fluid collection at the liver could be related secondary to gallbladder perforation. LFTs and white count are down. 08/04: Plan for IR for cholecystostomy tube placement. LFts stable. WBC elevated.Was confused this am but improving. NO pain. No fevers. Added flagyl to his Abx regimen 08/05: NO new complaints. IR for abscess drain and cholecystostomy tube 08/06: Transferred overnight to ICU due to AMS. S/P IR with cholecystostomy tube and abscess drain 08/07: severely constipated. NGT in with feeds. drains in. More awake today and oriented. right sided weakness likely acute stroke. MRI brain reviewed- small stroke. KUB reviewed 08/08: Doing better according to . Sheldon removed. Still on feeds 08/09: Feeds at 20 ml/hr. Still no BM 08/10-Had BM last night. Denies n/v/abd pain 08/11-Patient dislodged DH. DH was replaced. +BM today 08/12: has been having BM during the weekend 08/13: No new events 08/14: eating and moving bowels. 08/15: doing well. Objective Physical ExamHEENT: EOMICardiovascular: normal heart soundsRespiratory: clear to auscultationAbdomen: non-tenderExtremities: no edemaSkin: dry, normal temperature Diagnosis, Assessment PlanProblem List/A P: 1. Elevated LFTs Free Text A P:cholestatic pattern. CBD normal on RuQ U/S MRCP showed no evidence of choledocholithiasis.Large fluid collection within the liver could be secondary to gallbladder perforation.Recommend surgical evaluation again.Continue with antibiotics. Add flagyl s/p cholecystostomy tube and drainage of cystic fluid collection. Awaiting culture Surgery consultation reviewed. Agree with plan Acute strokeconstipation:moving bowels but still distended. Will get KUBDrain management as per surgeryWill sign off at 1307 RPT #:[id number] OF REPORTPRProgress [id number]:07:00G.[id number] for patient ixmwZUGLSDOXUKFNHU7255-35-67G62:07:56 [facility] 2023-08-16 13:05:00 [id number]+yABiuLHoU h+FF2hbdjqGSFmoTaHw nDZqWu59qBXS76XBX1379-83-48A24:05:00 [facility] ([facility])Infectious Dis. Progress NoteREPORT#:[id number] REPORT STATUS: SignedREPORT INITIALIZATION DATE:08/16/23 TIME: 1305 PATIENT: MISSY CANALES UNIT #: [id number]#: [id number] [place] [facility]OB: [birth year] AGE: 68 SEX: M ATTEND: Raphael Ly AUTHOR: Ahsan Mullen MDREPT SERVICE DT/TIME: 08/16/23 1305* ALL edits or amendments must be made on the electronic/computer document * SubjectiveChief complaint:Abd pain, N/V F/U BacteremiaPatient reports:Yes: feeling better. No: complaints, abdominal pain, back pain, bowel movement,burning with urination, cough, diarrhea, fever, headache, nausea, pain, pain controlled, shortness of breath, vomiting, wheezing. Review of SystemsAll systems rev neg: except as marked Objective GeneralVS/I O:Vital SignsDate Temp Pulse Resp B/P B/P Mean Pulse Ox RnE717/-08/15 98.2-101.3 69-104 15-20 111-147/60-76 80.7-99.4 94-99 Last Documented: Result Date Time Pulse Ox 98 08/15 1920 B/P 138/65 08/15 1920 B/P Mean 89.4 08/15 1920 O2 Delivery Room air 08/15 1920 Temp 101.3 08/15 1920 Pulse 104 08/15 1920 Resp 18 08/15 1920 O2 Flow Rate 3 08/15 0800 FiO2 40 08/07 0752 Vital Signs: Date Time Temp Pulse Resp B/P B/P Pulse O2 O2 Flow FiO2 Mean Ox Delivery Rate 08/15 1920 101.3 104 18 138/65 89.4 98 Room air 08/15 1544 99.3 69 18 147/76 99.4 94 Room air 08/15 1319 98.2 97 18 123/60 80.7 99 Room air 08/15 0800 Nasal 3 cannula 08/15 0710 98.8 94 20 128/66 86.7 94 Room air 08/15 0421 99.3 89 15 117/64 81.6 99 Nasal cannula 08/14 2349 99.3 99 17 111/67 81.6 97 Nasal cannula 24 hour I O ending at 0700: 08/15 0700 08/14 1900 Intake Total 240 Output Total 700 Balance -460 Intake, Oral 240 Output, Urine 700 PATIENT WEIGHT: Weight (lb): 177Weight (oz): 14.61Weight (kg): 80.286 Medications:Active Meds + DC'd Last 24 HrsInsulin Human Lispro (HUMALOG) 3 UNIT AC SUBQ Insulin Human Lispro (HUMALOG) 0 AC HS SUBQ Atorvastatin Calcium (LIPITOR) 40 MG BEDTIME PO Lactulose (LACTULOSE) 20 GM Q12HR PO Senna/Docusate Sodium (SENOKOT S) 1 TAB Q12HR PO Metoprolol Tartrate (LOPRESSOR) 50 MG Q8HR PO Clopidogrel Bisulfate (Plavix) 75 MG DAILY PO Tamsulosin HCl (Flomax 0.4 mg) 0.8 MG DAILY PO Allopurinol (ZYLOPRIM) 300 MG DAILY PO Aspirin (ASPIRIN) 81 MG DAILY PO Piperacillin Sod/Tazobactam Sod (ZOSYN 3.375GM) 3.375 GM Q8H IV Sodium Chloride (SODIUM CHLORIDE 0.9% 100 ML) 100 MLInsulin Glargine (Semglee) 25 UNIT DAILY SUBQ Acetaminophen (TYLENOL) 650 MG Q6H PRN PRN PO Insulin Human Lispro (HUMALOG) 0 Q6H SUBQ (DC) Bisacodyl (DULCOLAX) 10 MG DAILY PRN PRN RECTAL Polyethylene Glycol (MIRALAX) 17 GM Q12H PO Dextrose/Water (DEXTROSE 10% IN WATER) 125 ML ASDIR PRN IV (CKD) Dextrose/Water (DEXTROSE 10% IN WATER) 250 ML ASDIR PRN IV (CKD) Glucagon (GLUCAGON) 1 MG ASDIR PRN IM Sodium Chloride (SODIUM CHLORIDE 0.9%) 250 ML BOLUS PRN IV Latanoprost (XALATAN 2.5 ML OPHTH SOLN) 1 DROP BEDTIME EACH EYE Timolol Maleate (TIMOPTIC 0.5% 5 ML OPHTH SOLN) 1 DROP BID EACH EYE Brimonidine Tartrate (Alphagan-P 0.2% 5 ML OPHTH SOLN) 1 DROP Q8HR EACH EYE Hydralazine HCl (APRESOLINE) 10 MG Q6H PRN PRN IV Ondansetron HCl (ZOFRAN) 4 MG Q4H PRN PRN IV Physical ExamGeneral appearance: alert, awakeWound/incision: Location:Cholecystostomy tube- bilious RUQ drain- seropurulentHead/Eyes: atraumatic, normocephalicCardiovascular: tachycardia, no murmurRespiratory: clear to auscultation, aerating well, symmetric expansionAbdomen: non-tender, soft, no distention, percutaneous drains in place in RUQExtremities: no cyanosis, no edemaNeuro/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: alertSkin: dry, no rashPsychiatry: unable to evaluate ResultsFindings/Data:Laboratory Tests 08/15 08/15 08/15 08/15 08/14 2138 1755 1337 0537 2347 Chemistry POC Glucose (70 - 110 MG/DL) 153 H 151 H 153 H 153 H 249 H Diagnosis, Assessment PlanFree Text A P:Fever--Recurrent after improvement--UA via straight cath (-)--Covid (-)--Flu (-)--F/U CT A/P, decreased liver absces; (+) LLL infiltrates c/w PNAPNA--CT LLL infiltrates c/w aspirationBacteremia--Citrobacter--Source: BiliaryLiver abscess--MRCP showed 4.6 x 3.6 x 3.0 thick walled cystic lesion/fluid collection liver abutting GB fossa--S/P IR drain 08/05, cx CitrobacterAcute cholecystitis--S/P IR placed cholecystotomy tube ., cx CitrobacterAcute stroke--MRI (+) subacute Left guo radiata--CTA neck (+) high grade fcjawsmxULBFF6TRGAKT On Zosyn, abx broaded 08/13 (Day 2) of 7, then transition back to Rocephin/Flagyl(+ 10 days of Rocephin, Flagyl) 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, with f/u CT to ensure resolution of abcess prior to stopping abx at 2219 RPT #:[id number] OF REPORTPRProgress [id number]:05:00G.[id number] for patient hfxmYPIJNLAFROOWGX3827-45-39I31:19:50 [facility] 2023-08-16 12:13:00 [id number]/ +Wgxvyjkk5qOQbUm7wR 1eiBYnJ5alk7wyjRL2930-62-37V86:13:00 [facility] ([facility])Endocrinology Progress NoteREPORT#:[id number] REPORT STATUS: SignedREPORT INITIALIZATION DATE:08/16/23 TIME: 1213 PATIENT: MISSY CANALES UNIT #: [id number]#: [id number] [address] [birth year] AGE: 68 SEX: M ATTEND: Raphael Ly [facility] AUTHOR: Agus Duckworth APRNNPREPT SERVICE DT/TIME: 08/16/23 1213* ALL edits or amendments must be made on the electronic/computer document * SubjectiveChief complaint:f/u DM IItolerating diet pending SNF Objective GeneralVS:Last Documented: Result Date Time O2 Delivery Nasal cannula 08/15 0800 O2 Flow Rate 3 08/15 0800 Pulse Ox 94 08/15 0710 B/P 128/66 08/15 0710 B/P Mean 86.7 08/15 0710 Temp 98.8 08/15 0710 Pulse 94 08/15 0710 Resp 20 08/15 0710 FiO2 40 08/07 0752 PATIENT WEIGHT: Weight (lb): 177Weight (oz): 14.61Weight (kg): 80.286 Medications:Active Meds + DC'd Last 24 HrsInsulin Human Lispro (HUMALOG) 3 UNIT AC SUBQ (UNV) Insulin Human Lispro (HUMALOG) 0 AC HS SUBQ (UNVr) Atorvastatin Calcium (LIPITOR) 40 MG BEDTIME PO Lactulose (LACTULOSE) 20 GM Q12HR PO Senna/Docusate Sodium (SENOKOT S) 1 TAB Q12HR PO Metoprolol Tartrate (LOPRESSOR) 50 MG Q8HR PO Clopidogrel Bisulfate (Plavix) 75 MG DAILY PO Tamsulosin HCl (Flomax 0.4 mg) 0.8 MG DAILY PO Allopurinol (ZYLOPRIM) 300 MG DAILY PO Aspirin (ASPIRIN) 81 MG DAILY PO Piperacillin Sod/Tazobactam Sod (ZOSYN 3.375GM) 3.375 GM Q8H IV Sodium Chloride (SODIUM CHLORIDE 0.9% 100 ML) 100 MLInsulin Glargine (Semglee) 25 UNIT DAILY SUBQ Acetaminophen (TYLENOL) 650 MG Q6H PRN PRN PO Insulin Human Lispro (HUMALOG) 0 Q6H SUBQ (DCr) Bisacodyl (DULCOLAX) 10 MG DAILY PRN PRN RECTAL Polyethylene Glycol (MIRALAX) 17 GM Q12H PO Dextrose/Water (DEXTROSE 10% IN WATER) 125 ML ASDIR PRN IV (CKD) Dextrose/Water (DEXTROSE 10% IN WATER) 250 ML ASDIR PRN IV (CKD) Glucagon (GLUCAGON) 1 MG ASDIR PRN IM Sodium Chloride (SODIUM CHLORIDE 0.9%) 250 ML BOLUS PRN IV Latanoprost (XALATAN 2.5 ML OPHTH SOLN) 1 DROP BEDTIME EACH EYE Timolol Maleate (TIMOPTIC 0.5% 5 ML OPHTH SOLN) 1 DROP BID EACH EYE Brimonidine Tartrate (Alphagan-P 0.2% 5 ML OPHTH SOLN) 1 DROP Q8HR EACH EYE Hydralazine HCl (APRESOLINE) 10 MG Q6H PRN PRN IV Ondansetron HCl (ZOFRAN) 4 MG Q4H PRN PRN IV Dietitian nutrition assessmentThe data set between the solid lines has been imported from the dietitian's assessment. BMI Calculated: 27.7Nutrition related diagnosis: OverweightNutrition diagnosis details: BMI 25-29.9Nutrition problem: Inadequate oral intakeNutrition etiology: PT LETHARGIC /SWALLOWING Nutrition signs and symptoms: ENTERAL NUTRITION TO MEET , ENERGY NEEDS , (DIET ADVANCED TO PUREED)Nutrition prescription: 1. RECOMMEND PUREED CCD5 DIET. 2. PROVIDE GLUCERNA TID WITH MEALS. 3. MONITOR PO, WT, LABS, BM.Dietitian name: Lucía Torres, DIETAssessment completed: 08/14/23 Physical ExamGeneral appearance: alert, awakeHEENT: atraumatic, clear cornea, normocephalicNeck: suppleCardiovascular: regular rate rhythmRespiratory: on oxygenAbdomen: softGenitourinary: not indicatedExtremities: warmNeuro/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: alertSkin: warmFindings/data:Laboratory Tests: 08/15 08/14 0537 2347 Chemistry POC Glucose (70 - 110 MG/DL) 153 H 249 H Laboratory Tests: 08/15 08/14 0537 2347 Chemistry POC Glucose (70 - 110 MG/DL) 153 H 249 H Diagnosis, Assessment PlanFree Text A P:1.DM ZCJkvI2c 8.2adjust Lantus start Humalog monitor glucose diabetic diet DC Plan: Lantus, Humalog, follow at next available appointment. 2.Abnormal thyroid functions 08/06 TSH 0.07 FT4 1 recheck in a couple of days 3.Suspected ischemic strokeMRI brain without contrastEchocardiogramTelemetryneurology following 4.Coronary artery diseasePCI on July 03, 2023Echocardiogram preserved LVEFdual antiplateletscardiology following 5. Elevated LFTsGI following 6.MRCP with complex cystic fluid collectionpost drainage surgery following at 1318 at 1415 RPT #:[id number] OF REPORTPRProgress [id number]:13:00G.[id number] for patient gbneLQDLIGUFQOAYQS4422-83-93R37:19:01 [facility] 2023-08-16 10:29:00 [id number]/kOl7utrZdgNfuVCK3 dbGnVzjqxkcbIpFsPpt yavd6puHsLy8D3lII6735-27-73T65:29:00 [facility] ([facility])Cardiology Progress NoteREPORT#:[id number] REPORT STATUS: SignedREPORT INITIALIZATION DATE:08/16/23 TIME: 102 PATIENT: MISSY CANALES UNIT #: [id number]#: [id number] ROOM/BED: [facility]DOB: [birth year] AGE: 68 SEX: M ATTEND: Raphael Ly MDADM AUTHOR: Esther BucknerPREPT SERVICE DT/TIME: 08/16/23 1029* ALL edits or amendments must be made on the electronic/computer document * SubjectiveComments:Arousable, not in any distress. Objective GeneralVS/I O:24 hour I O ending at 0700: 08/15 0700 08/14 1900 Intake Total 240 Output Total 700 Balance -460 Intake, Oral 240 Output, Urine 700 Vital Signs: Date Time Temp Pulse Resp B/P B/P Pulse O2 O2 Flow FiO2 Mean Ox Delivery Rate 08/15 0710 37.1 94 20 128/66 86.7 94 Room air 08/15 0421 37.4 89 15 117/64 81.6 99 Nasal cannula 08/14 2349 37.4 99 17 111/67 81.6 97 Nasal cannula 08/14 2000 Nasal 3 cannula 08/14 1857 37.8 101 16 115/69 84.3 99 Nasal cannula 08/14 1547 37.0 106 18 128/67 87.5 94 Room air 08/14 1128 36.8 87 18 132/75 93.8 98 Room air PATIENT WEIGHT: Weight (lb): 177Weight (oz): 14.61Weight (kg): 80.286 Medications:Active Meds + DC'd Last 24 HrsAtorvastatin Calcium (LIPITOR) 40 MG BEDTIME PO Lactulose (LACTULOSE) 20 GM Q12HR PO Senna/Docusate Sodium (SENOKOT S) 1 TAB Q12HR PO Metoprolol Tartrate (LOPRESSOR) 50 MG Q8HR PO Clopidogrel Bisulfate (Plavix) 75 MG DAILY PO Tamsulosin HCl (Flomax 0.4 mg) 0.8 MG DAILY PO Allopurinol (ZYLOPRIM) 300 MG DAILY PO Aspirin (ASPIRIN) 81 MG DAILY PO Piperacillin Sod/Tazobactam Sod (ZOSYN 3.375GM) 3.375 GM Q8H IV Sodium Chloride (SODIUM CHLORIDE 0.9% 100 ML) 100 MLInsulin Glargine (Semglee) 25 UNIT DAILY SUBQ Acetaminophen (TYLENOL) 650 MG Q6H PRN PRN PO Insulin Human Lispro (HUMALOG) 0 Q6H SUBQ Bisacodyl (DULCOLAX) 10 MG DAILY PRN PRN RECTAL Polyethylene Glycol (MIRALAX) 17 GM Q12H PO Dextrose/Water (DEXTROSE 10% IN WATER) 125 ML ASDIR PRN IV (CKD) Dextrose/Water (DEXTROSE 10% IN WATER) 250 ML ASDIR PRN IV (CKD) Glucagon (GLUCAGON) 1 MG ASDIR PRN IM Sodium Chloride (SODIUM CHLORIDE 0.9%) 250 ML BOLUS PRN IV Latanoprost (XALATAN 2.5 ML OPHTH SOLN) 1 DROP BEDTIME EACH EYE Timolol Maleate (TIMOPTIC 0.5% 5 ML OPHTH SOLN) 1 DROP BID EACH EYE Brimonidine Tartrate (Alphagan-P 0.2% 5 ML OPHTH SOLN) 1 DROP Q8HR EACH EYE Hydralazine HCl (APRESOLINE) 10 MG Q6H PRN PRN IV Ondansetron HCl (ZOFRAN) 4 MG Q4H PRN PRN IV Physical ExamGeneral appearance: no respiratory distressENT: normal noseNeck: non-tender, no JVDCardiovascular: CV assessment: regular rate and rhythmRespiratory: decreased breath sounds, no distressAbdomen: softGenitourinary: no urinary catheterUpper extremity: UE assessment: normal capillary refill, normal temperatureLower extremity: LE assessment: no edemaMusculoskeletal: decreased ROMNeuro/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: abnormal speech, right hemiparesisSkin: dryPsychiatry: unable to evaluate ResultsFindings/Data:Laboratory Tests 08/15 08/14 0537 2347 Chemistry POC Glucose (70 - 110 MG/DL) 153 H 249 H Results: no new labs, vital signs reviewed Diagnosis, Assessment PlanPlan discussed with: spouse/partner, collaborating MD Free Text DxA P NotesFree Text DxA P Notes:1. Coronary artery disease s/p recent PCI/TERESA to diagonal artery* Troponin trend is flat* Hx of CABG (2000)* s/p stent placement to diagonal artery on 07/02/23. Still need staged PCI to RCA. * Continue Plavix and aspirin - do not stop Plavix d/t risk of stent thrombosis* Echocardiogram preserved LVEF. 2. Elevated LFTs/acute cholecystitis/liver abscess* s/p cholecystostomy tube placement. * GI on board* ID on board managing antibiotic 3. AMS: MRI brain showed small subacute ischemia in the L coronary radiata * Neurology following 4. Tachycardia with frequent PVCs * Continue metoprolol 50 mg every 8 hours. * continuous telemetry monitoring Medical decision making by Dr. Daniel. at 1351 at 0822 RPT #:[id number] OF REPORTPRProgress rato3215-23-53K14:29:00G.[id number] for patient kqdnTXKNUVMMYRHARF9332-35-53F55:51:53 [facility] 2023-08-16 08:02:00 [id number]+Fl7LXG+HF gPtM3zEMFf/8RTppdHB sBpzRFcZB4xe9d92p2642-95-10E06:02:00 [facility] Progress NoteREPORT#:[id number] REPORT STATUS: SignedREPORT INITIALIZATION DATE:08/16/23 TIME: 801 PATIENT: MISSY CANALES UNIT #: [id number]#: [id number] [address] [birth year] AGE: 68 SEX: M ATTEND: Raphael yL [facility] AUTHOR: Vitaly Jordan NPREPT SERVICE DT/TIME: 08/16/23 0802* ALL edits or amendments must be made on the electronic/computer document * Vitaly Jordan 08/16/23 0802:SubjectiveChief complaint:He is waiting for SNF placement and choice.He is tolerating diet.Breathing is stable.Not in distress.Less Abd pain, N/v. Review of SystemsConstitutional:Reports: fatigue, generalized weakness. Allergy/Immun:Denies: anaphylaxis, hives, rhinorrhea. Respiratory:Denies: hemoptysis, pleurisy, pleuritic pain, pneumonia. Cardiovascular:Denies: chest pain, edema, orthopnea, palpitations. Musculoskeletal:Denies: arthritis, joint pain, myalgias. Objective GeneralVS/I O:Vital Signs: Date Time Temp Pulse Resp B/P B/P Pulse O2 O2 Flow FiO2 Mean Ox Delivery Rate 08/15 0710 37.1 94 20 128/66 86.7 94 Room air 08/15 0421 37.4 89 15 117/64 81.6 99 Nasal cannula 08/14 2349 37.4 99 17 111/67 81.6 97 Nasal cannula 08/15 1999 Nasal 3 cannula 08/14 1857 37.8 101 16 115/69 84.3 99 Nasal cannula 08/14 1547 37.0 106 18 128/67 87.5 94 Room air 08/14 1128 36.8 87 18 132/75 93.8 98 Room air 24 hour I O ending at 0700: 08/15 0700 08/14 1900 Intake Total 240 Output Total 700 Balance -460 Intake, Oral 240 Output, Urine 700 PATIENT WEIGHT: Weight (lb): 177Weight (oz): 14.61Weight (kg): 80.286 Medications:Active Meds + DC'd Last 24 HrsAtorvastatin Calcium (LIPITOR) 40 MG BEDTIME PO Lactulose (LACTULOSE) 20 GM Q12HR PO Senna/Docusate Sodium (SENOKOT S) 1 TAB Q12HR PO Metoprolol Tartrate (LOPRESSOR) 50 MG Q8HR PO Clopidogrel Bisulfate (Plavix) 75 MG DAILY PO Tamsulosin HCl (Flomax 0.4 mg) 0.8 MG DAILY PO Allopurinol (ZYLOPRIM) 300 MG DAILY PO Aspirin (ASPIRIN) 81 MG DAILY PO Phosphorus (K-PHOS NEUTRAL) 250 MG BID FEED-TUBE (DC) Piperacillin Sod/Tazobactam Sod (ZOSYN 3.375GM) 3.375 GM Q8H IV Sodium Chloride (SODIUM CHLORIDE 0.9% 100 ML) 100 MLInsulin Glargine (Semglee) 25 UNIT DAILY SUBQ Acetaminophen (TYLENOL) 650 MG Q6H PRN PRN PO Insulin Human Lispro (HUMALOG) 0 Q6H SUBQ Bisacodyl (DULCOLAX) 10 MG DAILY PRN PRN RECTAL Allopurinol (ZYLOPRIM) 300 MG DAILY FEED-TUBE (DC) Aspirin (ASPIRIN) 81 MG DAILY FEED-TUBE (DC) Clopidogrel Bisulfate (Plavix) 75 MG DAILY FEED-TUBE (DC) Lactulose (LACTULOSE) 20 GM Q12HR FEED-TUBE (DC) Tamsulosin HCl (Flomax 0.4 mg) 0.8 MG DAILY FEED-TUBE (DC) Atorvastatin Calcium (LIPITOR) 40 MG BEDTIME FEED-TUBE (DC) Polyethylene Glycol (MIRALAX) 17 GM Q12H PO Metoprolol Tartrate (LOPRESSOR) 50 MG Q8HR FEED-TUBE (DC) Senna/Docusate Sodium (SENOKOT S) 1 TAB Q12H FEED-TUBE (DC) Dextrose/Water (DEXTROSE 10% IN WATER) 125 ML ASDIR PRN IV (CKD) Dextrose/Water (DEXTROSE 10% IN WATER) 250 ML ASDIR PRN IV (CKD) Glucagon (GLUCAGON) 1 MG ASDIR PRN IM Sodium Chloride (SODIUM CHLORIDE 0.9%) 250 ML BOLUS PRN IV Latanoprost (XALATAN 2.5 ML OPHTH SOLN) 1 DROP BEDTIME EACH EYE Timolol Maleate (TIMOPTIC 0.5% 5 ML OPHTH SOLN) 1 DROP BID EACH EYE Brimonidine Tartrate (Alphagan-P 0.2% 5 ML OPHTH SOLN) 1 DROP Q8HR EACH EYE Hydralazine HCl (APRESOLINE) 10 MG Q6H PRN PRN IV Ondansetron HCl (ZOFRAN) 4 MG Q4H PRN PRN IV Dietitian nutrition assessmentThe data set between the solid lines has been imported from the dietitian's assessment. BMI Calculated: 27.7Nutrition related diagnosis: OverweightNutrition diagnosis details: BMI 25-29.9Nutrition problem: Inadequate oral intakeNutrition etiology: PT LETHARGIC /SWALLOWING Nutrition signs and symptoms: ENTERAL NUTRITION TO MEET , ENERGY NEEDS , (DIET ADVANCED TO PUREED)Nutrition prescription: 1. RECOMMEND PUREED CCD5 DIET. 2. PROVIDE GLUCERNA TID WITH MEALS. 3. MONITOR PO, WT, LABS, BM.Dietitian name: Lucía Torres, DIETAssessment completed: 08/14/23 Physical ExamGeneral appearance: awakeHead/Eyes: atraumatic, normocephalic, PERRLAENT: moist mucosal membranes, normal dentitionCardiovascular: normal heart sounds, regular rate rhythmRespiratory: aerating well, symmetric expansion, no distressAbdomen: non-tender, normal bowel soundsGenitourinary: no bladder distention, no flank painExtremities: no clubbing, no cyanosisMusculoskeletal: no muscle spasmNeuro/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: abnormal speech, alert ResultsFindings/Data:Laboratory Tests 08/15 08/14 0537 2347 Chemistry POC Glucose (70 - 110 MG/DL) 153 H 249 H Results: labs reviewed, vital signs reviewed, vital signs stable, current med profile rev'd Free Text Obj NotesFree Text Obj Notes:ResultsFindings/Data:Laboratory Tests 08/08 08/08 08/07 08/07 08/07 0507 0348 2308 1433 1139 Chemistry Sodium (134 - 147 mEq/L) 154 H 155 H Potassium (3.4 - 5.0 mEq/L) 3.7 3.9 Chloride (100 - 108 mEq/L) 123 H 124 H Carbon Dioxide (21 - 33 mEq/l) 20 L 22 Anion Gap (0 - 20) 14 13 BUN (7 - 25 mg/dL) 20 26 H Creatinine (0.6 - 1.3 mg/dL) 1.0 0.7 Glomerular Filtr Rate (70 - 80) 81.0 H 99.1 H Glucose (77 - 141 mg/dL) 146 H 184 H POC Glucose (70 - 110 MG/DL) 119 H 135 H 162 H Calcium (8.0 - 10.5 mg/dL) 8.4 8.1 Laboratory Tests 08/08 08/07 08/07 0348 2039 1433 Hematology Hgb (12.5 - 16.9 g/dL) 9.6 L 9.3 L 9.5 L Hct (37.5 - 50.7 %) 28.7 L 27.9 L 28.3 L Radiology data:Recent Impressions:CAT SCAN - CT ABD PELVIS W WO CONT 08/07 1736 Report Impression - Status: SIGNED Entered: 08/08/20231736 IMPRESSION:No evidence of acute hemorrhage within the the liver and thegallbladder.Hyperdense contents within the gallbladder and 2nd segment of theduodenum may represent contrast and/or blood products.Large amount of stool within the rectum. LOCATION: [facility] By: Anthony Degroot M.D. 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 Plan: 08/16/23: Floor.He is waiting for SNF placement and choice.Continue Monitor Drain outpt.Tolerating diet.Pain meds.Antiemetics.Follow labs and replace as needed.Monitor Neuro status.Continue aspirin, Plavix.Aggressive PT and OT.Continue IV ABX for Bacteremia.Pain meds.Antiemetics.Glycemic control, Accu check AC HS, ISS, diabetic diet.GI and surgery following for elevated LFts and Liver abscess.Monitor. 08/15/23: Floor.He is waiting for SNF approval.Tolerating diet.Pain meds.Antiemetics.Follow labs and replace as needed.Monitor Neuro status.Continue aspirin, Plavix.Aggressive PT and OT.Continue IV ABX for Bacteremia.Pain meds.Antiemetics.Glycemic control, Accu check AC HS, ISS, diabetic diet.GI and surgery following for elevated LFts and Liver abscess.Monitor. 08/14/23: Floor.Pending SNF choice.He is stable.Passed swallow test and able to eat diet per speech.Pain meds.Antiemetics.Follow labs and replace as needed.He needs interval cholecystectomy in the future, currently controlled with cholecystostomy tube and IR drain for liver abscess, given recent stroke, recentPCI on DAPT and bacteremia, not a good operative candidate currently.Monitor Neuro status.He is on aspirin, Plavix.Aggressive PT and OT.Continue IV ABX for Bacteremia.Pain meds.Antiemetics.Glycemic control, Accu check AC HS, ISS, diabetic diet.GI and surgery following for elevated LFts and Liver abscess.Monitor. 08/12-Telemetry, strict vital monitor, strict LAURYN's, monitor, replace electrolytes-s/p IR drainage of liver abscess and gallbladder, drainage bilious today in IR drain, C tube bilious now; surgery following will eventually need cholecystectomy-CTA this 08/07 w/o obvious bleed, drains appear roughly in proper position-cont IV abx, ID on board-Dobbhoff tube in place, speech eval pending-Continue aspirin and Plavix-PT OT-Hyperglycemia noted, insulin sliding scale, adjust Lantus, endocrine following-Transfer to [facility] floor 08/12/23: ICU.He pulled out Dobhoff twice.Will restrain.Speech for swallow eval.He needs interval cholecystectomy in the future, currently controlled with cholecystostomy tube and IR drain for liver abscess, given recent stroke, recentPCI on DAPT and bacteremia, not a good operative candidate currently.Monitor Neuro status.He is on aspirin, Plavix.Aggressive PT and OT.Continue IV ABX for Bacteremia.Pain meds.Antiemetics.Glycemic control, Accu check AC HS, ISS, diabetic diet.GI and surgery following for elevated LFts and Liver abscess.Monitor. 08/11/23: ICU.MRI brain showed Acute stroke/Small focus of subacute ischemia in the left guo radiata.He is on aspirin, Plavix.Aggressive PT and OT.Continue IV ABX for Bacteremia.Pain meds.Antiemetics.Glycemic control, Accu check AC HS, ISS, diabetic diet.Monitor. 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, strict vital monitor, strict I O's, monitor, replace electrolytes-Status post cholecystostomy tube placement, IV ceftriaxone/IV Flagyl, GI consulted-Insulin sliding scale-s/p IR drainage of liver abscess and gallbladder, drainage bilious today in IR drain, C tube bilious/bloody, hgb 8.8 (9.5), stable, pt on DAPT, cont to monitor-CTA this 08/07 w/o obvious bleed, drains appear roughly in proper position-cont IV abx, ID on board-Advance diet as per surgery-Continue aspirin, Plavix-Cholecystectomy eventually needed however recent stroke, recent PCI/bacteremia,high risk for procedure-Stroke, neurology following Quality: Gen Med Crit Care Advanced Care Plan 65 or OlderDiscussed with: patient, surrogate decis. maker Raphael Ly 08/20/23 1732:Attestations Physician AttestationAgree w/findings plan:Patient seen and examined, chart reviewed, I agree with the findings and plans as discussed with and documented by Vitaly Jackson NP at 0805 at 1810 RPT #:[id number] OF REPORTPRProgress pqrt7966-45-54V75:02:00G.[id number] for patient ngpbVHEFORWYBBSUBT9203-18-43W18:06:04 [facility] 2023-08-15 17:03:00 [id number]/rtFDg/Ld6k0jb9wCR y44wxThTMbeCvANT8s0 nUozIRfJs9TkpG9+T5161-73-01I83:03:00 [facility] ([facility])Cardiology Progress NoteREPORT#:[id number] REPORT STATUS: SignedREPORT INITIALIZATION DATE:08/15/23 TIME: 1702 PATIENT: MISSY CANALES UNIT #: [id number]#: [id number] ROOM[facility]BED: [facility]DOB: [birth year] AGE: 68 SEX: M ATTEND: Raphael Ly AUTHOR: Esther BucknerPREPT SERVICE DT/TIME: 08/15/23 1703* ALL edits or amendments must be made on the electronic/computer document * SubjectivePatient reports:No: complaints. Objective GeneralVS/I O:24 hour I O ending at 0700: 08/14 0700 08/13 1900 Intake Total Output Total 500 Balance -500 Number 2 Bowel Movements Output, Urine 500 Vital Signs: Date Time Temp Pulse Resp B/P B/P Pulse O2 O2 Flow FiO2 Mean Ox Delivery Rate 08/14 1547 37.0 106 18 128/67 87.5 94 Room air 08/14 1128 36.8 87 18 132/75 93.8 98 Room air 08/14 0800 Nasal 3 cannula 08/14 0702 37.0 77 18 145/80 101.7 100 Room air 08/14 0328 37.0 83 17 133/75 94.2 100 Nasal cannula 08/13 2357 37.0 80 17 104/65 78.5 99 Room air 08/13 2112 37.0 98 18 128/71 89.8 98 Room air 08/13 1723 36.9 102 18 120/73 88.5 96 PATIENT WEIGHT: Weight (lb): 177Weight (oz): 14.61Weight (kg): 80.286 Medications:Active Meds + DC'd Last 24 HrsAtorvastatin Calcium (LIPITOR) 40 MG BEDTIME PO Lactulose (LACTULOSE) 20 GM Q12HR PO Senna/Docusate Sodium (SENOKOT S) 1 TAB Q12HR PO Metoprolol Tartrate (LOPRESSOR) 50 MG Q8HR PO Clopidogrel Bisulfate (Plavix) 75 MG DAILY PO Tamsulosin HCl (Flomax 0.4 mg) 0.8 MG DAILY PO Allopurinol (ZYLOPRIM) 300 MG DAILY PO Aspirin (ASPIRIN) 81 MG DAILY PO Phosphorus (K-PHOS NEUTRAL) 250 MG BID FEED-TUBE (DC) Piperacillin Sod/Tazobactam Sod (ZOSYN 3.375GM) 3.375 GM Q8H IV Sodium Chloride (SODIUM CHLORIDE 0.9% 100 ML) 100 MLInsulin Glargine (Semglee) 25 UNIT DAILY SUBQ Acetaminophen (TYLENOL) 650 MG Q6H PRN PRN PO Insulin Human Lispro (HUMALOG) 0 Q6H SUBQ Bisacodyl (DULCOLAX) 10 MG DAILY PRN PRN RECTAL Allopurinol (ZYLOPRIM) 300 MG DAILY FEED-TUBE (DC) Aspirin (ASPIRIN) 81 MG DAILY FEED-TUBE (DC) Clopidogrel Bisulfate (Plavix) 75 MG DAILY FEED-TUBE (DC) Lactulose (LACTULOSE) 20 GM Q12HR FEED-TUBE (DC) Tamsulosin HCl (Flomax 0.4 mg) 0.8 MG DAILY FEED-TUBE (DC) Atorvastatin Calcium (LIPITOR) 40 MG BEDTIME FEED-TUBE (DC) Polyethylene Glycol (MIRALAX) 17 GM Q12H PO Metoprolol Tartrate (LOPRESSOR) 50 MG Q8HR FEED-TUBE (DC) Senna/Docusate Sodium (SENOKOT S) 1 TAB Q12H FEED-TUBE (DC) Dextrose/Water (DEXTROSE 10% IN WATER) 125 ML ASDIR PRN IV (CKD) Dextrose/Water (DEXTROSE 10% IN WATER) 250 ML ASDIR PRN IV (CKD) Glucagon (GLUCAGON) 1 MG ASDIR PRN IM Sodium Chloride (SODIUM CHLORIDE 0.9%) 250 ML BOLUS PRN IV Latanoprost (XALATAN 2.5 ML OPHTH SOLN) 1 DROP BEDTIME EACH EYE Timolol Maleate (TIMOPTIC 0.5% 5 ML OPHTH SOLN) 1 DROP BID EACH EYE Brimonidine Tartrate (Alphagan-P 0.2% 5 ML OPHTH SOLN) 1 DROP Q8HR EACH EYE Hydralazine HCl (APRESOLINE) 10 MG Q6H PRN PRN IV Ondansetron HCl (ZOFRAN) 4 MG Q4H PRN PRN IV Physical ExamGeneral appearance: no acute distressNeck: non-tender, no JVDCardiovascular: CV assessment: regular rate and rhythmRespiratory: decreased breath sounds, no distressAbdomen: softGenitourinary: no urinary catheterLower extremity: LE assessment: no edemaNeuro/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: abnormal speech, right hemiparesisSkin: dryPsychiatry: unable to evaluate ResultsFindings/Data:Laboratory Tests 08/14 08/13 08/13 08/13 08/13 0540 2356 1932 1932 1723 Chemistry POC Glucose (70 - 110 MG/DL) 145 H 157 H 201 H Uric Acid (2.6 - 7.2 mg/dL) 4.4 C-Reactive Protein (<10.0 mg/L) 224.0 H Laboratory Tests 08/14 1931 Hematology ESR Westergren (0 - 15 mm/hr) 114 H Laboratory Tests 08/14 1931 Serology SARS-CoV-2 Ag (Rapid) (Negative) Negative Laboratory Tests 08/14 1931 Urines Urine Color (YEL/STRAW) SANDRA H Urine Appearance (CLEAR) SL CLOUDY Urine pH (5.0 - 7.0) 5.0 Ur Specific [place] (1.005 - 1.030) 1.017 Urine Protein (NEGATIVE) 2+ H Urine Glucose (UA) (NEGATIVE) 1+ H Urine Ketones (NEGATIVE) TRACE H Urine Blood (NEGATIVE) 2+ H Urine Nitrite (NEGATIVE) NEGATIVE Urine Bilirubin (NEGATIVE) NEGATIVE Urine Urobilinogen (0.2 - 1.0 mg/dL) 0.2 Ur Leukocyte Esterase (NEGATIVE) TRACE H Urine RBC (0 - 3 RBC/HPF) 4-10 Urine WBC (0 - 3 WBC/HPF) 4-9 H Ur Squamous Epith Cells (NONE SEEN /HPF) NONE SEEN Amorphous Sediment (NONE /HPF) 3+ H Urine Bacteria (NONE SEEN /HPF) TRACE Urine Mucus (NONE SEEN /LPF) TRACE Urine Yeast (NONE /HPF) 2+ H Microbiology Date/Time Procedure - Status Source Growth 08/14 1931 Influenza Virus Type B Antigen - COMP NASOPHARG 08/14 1931 Influenza Virus Type A Antigen - COMP NASOPHARG Radiology data:Recent Impressions:RADIOLOGY - XR ABDOMEN 1V (KUB) 08/13 1810 Report Impression - Status: SIGNED Entered: 08/14/20231818 IMPRESSION: Diffuse colonic ileus and mild small bowel ileus.Impression By: Christi Espinosa M.D. Results: labs reviewed, vital signs reviewed Diagnosis, Assessment PlanPlan discussed with: spouse/partner, collaborating MD, nurse Free Text DxA P NotesFree Text DxA P Notes:1. Coronary artery disease s/p recent PCI/TERESA to diagonal artery* Troponin trend is flat* Hx of CABG (2000)* s/p stent placement to diagonal artery on 07/02/23. Still need staged PCI to RCA. * Continue Plavix and aspirin - do not stop Plavix d/t risk of stent thrombosis* Echocardiogram preserved LVEF. 2. Elevated LFTs/acute cholecystitis/liver abscess* s/p cholecystostomy tube placement. * GI on board* ID on board managing antibiotic 3. AMS: MRI brain showed small subacute ischemia in the L coronary radiata * Neurology following 4. Tachycardia with frequent PVCs * Continue metoprolol 50 mg every 8 hours. * replace potassium and phosphate with KPhos* continuous telemetry monitoring Medical decision making by Dr. Daniel. at 2055 at 0822 RPT #:[id number] OF REPORTPRProgress thyh5814-26-43V26:03:00G.[id number] for patient qnjxOWDTGMLNHBVALH8456-09-88Z94:16:25 [facility] 2023-08-15 15:11:00 [id number] swFRQApp8kstn+wt3v1 d9rwe0NPTql0p24Ew2249-42-09A06:11:00 [facility] ([facility])Gastroenterology Progress NoteREPORT#:[id number] REPORT STATUS: SignedREPORT INITIALIZATION DATE:08/15/23 TIME: 1510 PATIENT: MISSY CANALES UNIT #: [id number]#: [id number] [address] [birth year] AGE: 68 SEX: M ATTEND: Raphael Ly MDADM AUTHOR: Lisa Cancino MDREPT SERVICE DT/TIME: 08/15/23 1511* ALL edits or amendments must be made on the electronic/computer document * SubjectiveChief complaint:Elevated LFtsHPI:68 year old man s/p cardiac stents 2 weeks ago who was sent to the hospital withelevated LFTs and possible acute cholecystitis. Pt had a stenet recently placed and was started on DAPT. Pt had labs showing elevated LFTs and was sent here forevaluation. Labs showed leukocytosis 15k. Elevated Tbili 3.7. Dbili 2.8. AST 79,ALT 105 and ALP 225. RUQ U/S showed possible cholecystitis and normal CBD of 4 mm in diatmeter. Pt denies pain. No dark urine or peyton-color stool 08/03; patient feels well. MRCP reviewed. No choledocholithiasis. Fluid collection at the liver could be related secondary to gallbladder perforation. LFTs and white count are down. 08/04: Plan for IR for cholecystostomy tube placement. LFts stable. WBC elevated.Was confused this am but improving. NO pain. No fevers. Added flagyl to his Abx regimen 08/05: NO new complaints. IR for abscess drain and cholecystostomy tube 08/06: Transferred overnight to ICU due to AMS. S/P IR with cholecystostomy tube and abscess drain 08/07: severely constipated. NGT in with feeds. drains in. More awake today and oriented. right sided weakness likely acute stroke. MRI brain reviewed- small stroke. KUB reviewed 08/08: Doing better according to . Sheldon removed. Still on feeds 08/09: Feeds at 20 ml/hr. Still no BM 08/10-Had BM last night. Denies n/v/abd pain 08/11-Patient dislodged DH. DH was replaced. +BM today 08/12: has been having BM during the weekend 08/13: No new events 08/14: eating and moving bowels. Objective Physical ExamHEENT: EOMICardiovascular: normal heart soundsRespiratory: clear to auscultationAbdomen: non-tenderExtremities: no edemaSkin: dry, normal temperature Diagnosis, Assessment PlanProblem List/A P: 1. Elevated LFTs Free Text A P:cholestatic pattern. CBD normal on RuQ U/S MRCP showed no evidence of choledocholithiasis.Large fluid collection within the liver could be secondary to gallbladder perforation.Recommend surgical evaluation again.Continue with antibiotics. Add flagyl s/p cholecystostomy tube and drainage of cystic fluid collection. Awaiting culture Surgery consultation reviewed. Agree with plan Acute strokeconstipation:moving bowels but still distended. Will get KUBDrain management as per surgeryWill follow at 1512 RPT #:[id number] OF REPORTPRProgress nmtu0796-46-21V62:11:00G.[id number] for patient acegSXFVYZUCTKRLEV5781-75-39W34:12:23 [facility] 2023-08-15 13:40:00 [id number]+fh1VpSCtQSTyEcX3 BnfyadzDq8L9eI4htIO ZpLAxYg/gBI/4EQpB9485-32-19Q39:40:00 [facility] ([facility])Infectious Dis. Progress NoteREPORT#:[id number] REPORT STATUS: SignedREPORT INITIALIZATION DATE:08/15/23 TIME: 1339 PATIENT: MISSY CANALES UNIT #: [id number]#: [id number] [address] [birth year] AGE: 68 SEX: M ATTEND: Raphael Ly [facility] AUTHOR: Jv Colvin NPREPT SERVICE DT/TIME: 08/15/23 1340* ALL edits or amendments must be made on the electronic/computer document * SubjectiveChief complaint:Abd pain, N/V F/U BacteremiaNursing reports:No: complaints. Unable to obtain: patient condition Objective GeneralVS/I O:Vital SignsDate Temp Pulse Resp B/P B/P Mean Pulse Ox WeD213/-08/14 98.2-98.6 77-102 17-18 104-145/65-80 78.5-101.7 96-100 Last Documented: Result Date Time Pulse Ox 98 08/14 1128 B/P 132/75 08/14 1128 B/P Mean 93.8 08/14 1128 O2 Delivery Room air 08/14 1128 Temp 98.2 08/14 1128 Pulse 87 08/14 1128 Resp 18 08/14 1128 O2 Flow Rate 2 08/13 0800 FiO2 40 08/07 0752 Vital Signs: Date Time Temp Pulse Resp B/P B/P Pulse O2 O2 Flow FiO2 Mean Ox Delivery Rate 08/14 1128 98.2 87 18 132/75 93.8 98 Room air 08/14 0702 98.6 77 18 145/80 101.7 100 Room air 08/14 0328 98.6 83 17 133/75 94.2 100 Nasal cannula 08/13 2357 98.6 80 17 104/65 78.5 99 Room air 08/13 2112 98.6 98 18 128/71 89.8 98 Room air 08/13 1723 98.4 102 18 120/73 88.5 96 24 hour I O ending at 0700: 08/14 0700 08/13 1900 Intake Total Output Total 500 Balance -500 Number 2 Bowel Movements Output, Urine 500 PATIENT WEIGHT: Weight (lb): 177Weight (oz): 14.61Weight (kg): 80.286 Physical ExamGeneral appearance: awakeWound/incision: Location:Cholecystostomy tube- bilious RUQ drain- seropurulentHead/Eyes: atraumatic, normocephalicCardiovascular: tachycardia, no murmurRespiratory: clear to auscultation, aerating well, symmetric expansionAbdomen: non-tender, soft, no distention, percutaneous drains in place in RUQExtremities: no cyanosis, no edemaNeuro/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: alertSkin: dry, no rashPsychiatry: unable to evaluate ResultsFindings/Data:Laboratory Tests 08/14 08/13 08/13 08/13 08/13 0540 2356 1931 193 1723 Chemistry POC Glucose (70 - 110 MG/DL) 145 H 157 H 201 H Uric Acid (2.6 - 7.2 mg/dL) 4.4 C-Reactive Protein (<10.0 mg/L) 224.0 H Laboratory Tests 08/14 1931 Hematology ESR Westergren (0 - 15 mm/hr) 114 H Laboratory Tests 08/14 1931 Serology SARS-CoV-2 Ag (Rapid) (Negative) Negative Laboratory Tests 08/14 1931 Urines Urine Color (YEL/STRAW) SANDRA H Urine Appearance (CLEAR) SL CLOUDY Urine pH (5.0 - 7.0) 5.0 Ur Specific [place] (1.005 - 1.030) 1.017 Urine Protein (NEGATIVE) 2+ H Urine Glucose (UA) (NEGATIVE) 1+ H Urine Ketones (NEGATIVE) TRACE H Urine Blood (NEGATIVE) 2+ H Urine Nitrite (NEGATIVE) NEGATIVE Urine Bilirubin (NEGATIVE) NEGATIVE Urine Urobilinogen (0.2 - 1.0 mg/dL) 0.2 Ur Leukocyte Esterase (NEGATIVE) TRACE H Urine RBC (0 - 3 RBC/HPF) 4-10 Urine WBC (0 - 3 WBC/HPF) 4-9 H Ur Squamous Epith Cells (NONE SEEN /HPF) NONE SEEN Amorphous Sediment (NONE /HPF) 3+ H Urine Bacteria (NONE SEEN /HPF) TRACE Urine Mucus (NONE SEEN /LPF) TRACE Urine Yeast (NONE /HPF) 2+ H Microbiology Date/Time Procedure - Status Source Growth 08/14 1931 Influenza Virus Type B Antigen - COMP NASOPHARG 08/14 1931 Influenza Virus Type A Antigen - COMP NASOPHARG Radiology data:Recent Impressions:CAT SCAN - CT ABD PELVIS W/CONT 08/13 1645 Report Impression - Status: SIGNED Entered: 08/14/2023 1715 IMPRESSION:1. Interval partial improvement of the right liver lobe abscess witha catheter in good position.2. Worsening bibasilar lung infiltrative/atelectatic changes andsmall effusion.3. Mild to moderate diffuse ileus.4. No other new or acute findings.Impression By: Christi Espinosa M.D.RADIOLOGY - XR ABDOMEN 1V (KUB) 08/13 1810 Report Impression - Status: SIGNED Entered: 08/14/2023 181 IMPRESSION: Diffuse colonic ileus and mild small bowel ileus.Impression By: Christi Espinosa M.D. Results: labs reviewed, vital signs reviewed, vital signs stable, current med profile rev'd Diagnosis, Assessment PlanFree Text A P:Fever--Recurrent after improvement--UA via straight cath (-)--Covid (-)--Flu (-)--F/U CT A/P, decreased liver absces; (+) LLL infiltrates c/w PNAPNA--CT LLL infiltrates c/w aspirationBacteremia--Citrobacter--Source: BiliaryLiver abscess--MRCP showed 4.6 x 3.6 x 3.0 thick walled cystic lesion/fluid collection liver abutting GB fossa--S/P IR drain 08/05, cx CitrobacterAcute cholecystitis--S/P IR placed cholecystotomy tube ., cx CitrobacterAcute stroke--MRI (+) subacute Left guo radiata--CTA neck (+) high grade eimuwojaNBPTK8FOCTEV On Zosyn, abx broaded 08/13 (Day 1) of 7, then transition back to Rocephin/Flagyl(+ 10 days of Rocephin, Flagyl) 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, with f/u CT to ensure resolution of abcess prior to stopping abx Seen and examined with Dr BrothersDM was done entirely by Dr Hobson discussed with: patient, spouse/partner at 1344 at 0918 RPT #:[id number] OF REPORTPRProgress beel0838-89-97A70:40:00G.[id number] for patient wferOAYNMVOJQDULLZ1785-69-07F23:44:51 [facility] 2023-08-15 12:52:00 [id number]+XWwbzxH26ELrQysz/ haFpfKRyFQpIIkttAJK kvDzmLoCdFENkfYUO5158-12-76F61:52:00 [facility] ([facility])Endocrinology Progress NoteREPORT#:[id number] REPORT STATUS: SignedREPORT INITIALIZATION DATE:08/15/23 TIME: 1252 PATIENT: MISSY CANALES UNIT #: [id number]#: [id number] [address] [birth year] AGE: 68 SEX: M ATTEND: Raphael Ly MDADM AUTHOR: Agus Duckworth APRNNPREPT SERVICE DT/TIME: 08/15/23 1200* ALL edits or amendments must be made on the electronic/computer document * SubjectiveChief complaint:f/u DM IITF Objective GeneralVS:Last Documented: Result Date Time Pulse Ox 98 08/14 1128 B/P 132/75 08/14 1128 B/P Mean 93.8 08/14 1128 O2 Delivery Room air 08/14 1128 Temp 98.2 03/20 1128 Pulse 87 08/14 1128 Resp 18 08/14 1128 O2 Flow Rate 2 08/13 0800 FiO2 40 08/07 0752 PATIENT WEIGHT: Weight (lb): 177Weight (oz): 14.61Weight (kg): 80.286 Medications:Active Meds + DC'd Last 24 HrsAtorvastatin Calcium (LIPITOR) 40 MG BEDTIME PO Lactulose (LACTULOSE) 20 GM Q12HR PO Senna/Docusate Sodium (SENOKOT S) 1 TAB Q12HR PO Metoprolol Tartrate (LOPRESSOR) 50 MG Q8HR PO Clopidogrel Bisulfate (Plavix) 75 MG DAILY PO Tamsulosin HCl (Flomax 0.4 mg) 0.8 MG DAILY PO Allopurinol (ZYLOPRIM) 300 MG DAILY PO Aspirin (ASPIRIN) 81 MG DAILY PO Phosphorus (K-PHOS NEUTRAL) 250 MG BID FEED-TUBE (DC) Iopamidol (ISOVUE-300 100ML) 100 ML .STK-MED ONE IV (DC) Piperacillin Sod/Tazobactam Sod (ZOSYN 3.375GM) 3.375 GM Q8H IV Sodium Chloride (SODIUM CHLORIDE 0.9% 100 ML) 100 MLInsulin Glargine (Semglee) 25 UNIT DAILY SUBQ Acetaminophen (TYLENOL) 650 MG Q6H PRN PRN PO Insulin Human Lispro (HUMALOG) 0 Q6H SUBQ Bisacodyl (DULCOLAX) 10 MG DAILY PRN PRN RECTAL Allopurinol (ZYLOPRIM) 300 MG DAILY FEED-TUBE (DC) Aspirin (ASPIRIN) 81 MG DAILY FEED-TUBE (DC) Clopidogrel Bisulfate (Plavix) 75 MG DAILY FEED-TUBE (DC) Lactulose (LACTULOSE) 20 GM Q12HR FEED-TUBE (DC) Tamsulosin HCl (Flomax 0.4 mg) 0.8 MG DAILY FEED-TUBE (DC) Atorvastatin Calcium (LIPITOR) 40 MG BEDTIME FEED-TUBE (DC) Polyethylene Glycol (MIRALAX) 17 GM Q12H PO Metoprolol Tartrate (LOPRESSOR) 50 MG Q8HR FEED-TUBE (DC) Senna/Docusate Sodium (SENOKOT S) 1 TAB Q12H FEED-TUBE (DC) Dextrose/Water (DEXTROSE 10% IN WATER) 125 ML ASDIR PRN IV (CKD) Dextrose/Water (DEXTROSE 10% IN WATER) 250 ML ASDIR PRN IV (CKD) Glucagon (GLUCAGON) 1 MG ASDIR PRN IM Metronidazole/Sodium Chloride (metroNIDAZOLE 500MG/NS 100ML) 100 ML Q12H IV (DC) Sodium Chloride (SODIUM CHLORIDE 0.9%) 250 ML BOLUS PRN IV Ceftriaxone Sodium (ROCEPHIN) 2,000 MG Q24H IV (DC) Sodium Chloride (SODIUM CHLORIDE) 20 MLLatanoprost (XALATAN 2.5 ML OPHTH SOLN) 1 DROP BEDTIME EACH EYE Timolol Maleate (TIMOPTIC 0.5% 5 ML OPHTH SOLN) 1 DROP BID EACH EYE Brimonidine Tartrate (Alphagan-P 0.2% 5 ML OPHTH SOLN) 1 DROP Q8HR EACH EYE Hydralazine HCl (APRESOLINE) 10 MG Q6H PRN PRN IV Ondansetron HCl (ZOFRAN) 4 MG Q4H PRN PRN IV Dietitian nutrition assessmentThe data set between the solid lines has been imported from the dietitian's assessment. BMI Calculated: 27.7Nutrition related diagnosis: OverweightNutrition diagnosis details: BMI 25-29.9Nutrition problem: Inadequate oral intakeNutrition etiology: PT LETHARGIC /SWALLOWING Nutrition signs and symptoms: ENTERAL NUTRITION TO MEET , ENERGY NEEDS , (DIET ADVANCED TO PUREED)Nutrition prescription: 1. RECOMMEND PUREED CCD5 DIET. 2. PROVIDE GLUCERNA TID WITH MEALS. 3. MONITOR PO, WT, LABS, BM.Dietitian name: Lucía Torres DIETAssessment completed: 08/14/23 Physical ExamGeneral appearance: alert, awakeHEENT: atraumatic, clear cornea, normocephalicNeck: suppleCardiovascular: regular rate rhythmRespiratory: on oxygenAbdomen: softGenitourinary: not indicatedExtremities: warmNeuro/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: alertSkin: warmFindings/data:Laboratory Tests: 08/14 08/13 08/13 08/13 08/13 0540 2356 1932 1932 1723Chemistry POC Glucose (70 - 110 MG/DL) 145 H 157 H 201 H Uric Acid (2.6 - 7.2 mg/dL) 4.4 C-Reactive Protein (<10.0 mg/L) 224.0 HHematology ESR Westergren (0 - 15 mm/hr) 114 HSerology SARS-CoV-2 Ag (Rapid) (Negative) NegativeUrines Urine Color (YEL/STRAW) SANDRA H Urine Appearance (CLEAR) SL CLOUDY Urine pH (5.0 - 7.0) 5.0 Ur Specific [place] (1.005 - 1.030) 1.017 Urine Protein (NEGATIVE) 2+ H Urine Glucose (UA) (NEGATIVE) 1+ H Urine Ketones (NEGATIVE) TRACE H Urine Blood (NEGATIVE) 2+ H Urine Nitrite (NEGATIVE) NEGATIVE Urine Bilirubin (NEGATIVE) NEGATIVE Urine Urobilinogen (0.2 - 1.0 mg/dL) 0.2 Ur Leukocyte Esterase (NEGATIVE) TRACE H Urine RBC (0 - 3 RBC/HPF) 4-10 Urine WBC (0 - 3 WBC/HPF) 4-9 H Ur Squamous Epith Cells (NONE SEEN NONE SEEN/HPF) Amorphous Sediment (NONE /HPF) 3+ H Urine Bacteria (NONE SEEN /HPF) TRACE Urine Mucus (NONE SEEN /LPF) TRACE Urine Yeast (NONE /HPF) 2+ H Microbiology: Date/Time Procedure - Status Source Growth 08/14 1931 Influenza Virus Type B Antigen - COMP NASOPHARG 08/14 1931 Influenza Virus Type A Antigen - COMP NASOPHARG Recent Impressions:CAT SCAN - CT ABD PELVIS W/CONT 08/13 1645 Report Impression - Status: SIGNED Entered: 08/14/2023 3769 IMPRESSION:1. Interval partial improvement of the right liver lobe abscess witha catheter in good position.2. Worsening bibasilar lung infiltrative/atelectatic changes andsmall effusion.3. Mild to moderate diffuse ileus.4. No other new or acute findings.Impression By: Christi Espinosa M.D.RADIOLOGY - XR ABDOMEN 1V (KUB) 08/13 1810 Report Impression - Status: SIGNED Entered: 08/14/2023 181 IMPRESSION: Diffuse colonic ileus and mild small bowel ileus.Impression By: Christi Espinosa M.D. Laboratory Tests: 08/14 08/13 08/13 08/13 08/13 0540 2356 1931 1931 1723Chemistry POC Glucose (70 - 110 MG/DL) 145 H 157 H 201 H Uric Acid (2.6 - 7.2 mg/dL) 4.4 C-Reactive Protein (<10.0 mg/L) 224.0 HHematology ESR Westergren (0 - 15 mm/hr) 114 HSerology SARS-CoV-2 Ag (Rapid) (Negative) NegativeUrines Urine Color (YEL/STRAW) SANDRA H Urine Appearance (CLEAR) SL CLOUDY Urine pH (5.0 - 7.0) 5.0 Ur Specific [place] (1.005 - 1.030) 1.017 Urine Protein (NEGATIVE) 2+ H Urine Glucose (UA) (NEGATIVE) 1+ H Urine Ketones (NEGATIVE) TRACE H Urine Blood (NEGATIVE) 2+ H Urine Nitrite (NEGATIVE) NEGATIVE Urine Bilirubin (NEGATIVE) NEGATIVE Urine Urobilinogen (0.2 - 1.0 mg/dL) 0.2 Ur Leukocyte Esterase (NEGATIVE) TRACE H Urine RBC (0 - 3 RBC/HPF) 4-10 Urine WBC (0 - 3 WBC/HPF) 4-9 H Ur Squamous Epith Cells (NONE SEEN NONE SEEN/HPF) Amorphous Sediment (NONE /HPF) 3+ H Urine Bacteria (NONE SEEN /HPF) TRACE Urine Mucus (NONE SEEN /LPF) TRACE Urine Yeast (NONE /HPF) 2+ H Microbiology: Date/Time Procedure - Status Source Growth 08/14 1931 Influenza Virus Type B Antigen - COMP NASOPHARG 08/14 1931 Influenza Virus Type A Antigen - COMP NASOPHARG Recent Impressions:CAT SCAN - CT ABD PELVIS W/CONT 08/13 1645 Report Impression - Status: SIGNED Entered: 08/14/2023 1715 IMPRESSION:1. Interval partial improvement of the right liver lobe abscess witha catheter in good position.2. Worsening bibasilar lung infiltrative/atelectatic changes andsmall effusion.3. Mild to moderate diffuse ileus.4. No other new or acute findings.Impression By: Christi Espinosa M.D.RADIOLOGY - XR ABDOMEN 1V (KUB) 08/13 1810 Report Impression - Status: SIGNED Entered: 08/14/20231818 IMPRESSION: Diffuse colonic ileus and mild small bowel ileus.Impression By: Christi Espionsa M.D. Diagnosis, Assessment PlanFree Text A P:1.DM MOBoyF4a 8.2adjust Lantus continue SSI monitor glucose NPO on TFDC Plan: Lantus, Humalog, and Farxiga; follow at next available appointment. 2.Abnormal thyroid functions 08/06 TSH 0.07 FT4 1 recheck in a couple of days 3.Suspected ischemic strokeMRI brain without contrastEchocardiogramTelemetryneurology following 4.Coronary artery diseasePCI on July 03, 2023Echocardiogram preserved LVEFdual antiplateletscardiology following 5. Elevated LFTsGI following 6.MRCP with complex cystic fluid collectionpost drainage surgery following at 1318 at 1415 RPT #:[id number] OF REPORTPRProgress liam2051-61-29C42:52:00G.[id number] for patient cutvVZZLZXSWTEZBNM4746-91-95Z21:18:50 [facility] 2023-08-15 09:05:00 [id number]/[id number]O yeopdnN7MFgodN7lCVC p2dQjZkwgpE0h/NSr1739-91-30P87:05:00 [facility] CenterHospital[facility] Progress NoteREPORT#:[id number] REPORT STATUS: SignedREPORT INITIALIZATION DATE:08/15/23 TIME: 904 PATIENT: MISSY CANALES UNIT #: [id number]#: [id number] [address] [birth year] AGE: 68 SEX: M ATTEND: Raphael yL MDADM AUTHOR: Vitaly Jordan NPREPT SERVICE DT/TIME: 08/15/23904* ALL edits or amendments must be made on the electronic/computer document * SubjectiveChief complaint:He is tolerating diet.Breathing is stable.Not in distress.Less Abd pain, N/v. Review of SystemsConstitutional:Reports: fatigue, generalized weakness. Allergy/Immun:Denies: anaphylaxis, itching. ENT:Denies: ear ringing, mouth pain, nose bleeding, sinus problem, throat pain. Respiratory:Denies: HAMMOND (dyspnea on exertion), hemoptysis, non productive cough, pleurisy, pneumonia, productive cough (sputum). Cardiovascular:Denies: chest pain, HAMMOND (dyspnea on exertion), orthopnea, palpitations. GI:Denies: anorexia, GERD, hematochezia, melena, rectal pain. :Denies: frequency, nocturia, testicular swelling, urgency. Musculoskeletal:Denies: extremity swelling, joint pain, lumbar pain. Endocrine:Denies: cold intolerance, polydipsia, polyphagia. Neuro:Denies: change in LOC, dizziness, lightheaded, seizure, slurred speech. Objective GeneralVS/I O:Vital Signs: Date Time Temp Pulse Resp B/P B/P Pulse O2 O2 Flow FiO2 Mean Ox Delivery Rate 08/14 0702 37.0 77 18 145/80 101.7 100 Room air 08/14 0328 37.0 83 17 133/75 94.2 100 Nasal cannula 08/13 2357 37.0 80 17 104/65 78.5 99 Room air 08/13 2112 37.0 98 18 128/71 89.8 98 Room air 08/13 1723 36.9 102 18 120/73 88.5 96 08/13 1153 37.6 92 18 145/75 98.1 97 24 hour I O ending at 0700: 08/14 0700 08/13 1900 Intake Total Output Total 500 Balance -500 Number 2 Bowel Movements Output, Urine 500 PATIENT WEIGHT: Weight (lb): 177Weight (oz): 14.61Weight (kg): 80.286 Medications:Active Meds + DC'd Last 24 HrsPhosphorus (K-PHOS NEUTRAL) 250 MG BID FEED-TUBE (DC) Iopamidol (ISOVUE-300 100ML) 100 ML .STK-MED ONE IV (DC) Piperacillin Sod/Tazobactam Sod (ZOSYN 3.375GM) 3.375 GM Q8H IV Sodium Chloride (SODIUM CHLORIDE 0.9% 100 ML) 100 MLInsulin Glargine (Semglee) 25 UNIT DAILY SUBQ Acetaminophen (TYLENOL) 650 MG Q6H PRN PRN PO Insulin Human Lispro (HUMALOG) 0 Q6H SUBQ Bisacodyl (DULCOLAX) 10 MG DAILY PRN PRN RECTAL Allopurinol (ZYLOPRIM) 300 MG DAILY FEED-TUBE Aspirin (ASPIRIN) 81 MG DAILY FEED-TUBE Clopidogrel Bisulfate (Plavix) 75 MG DAILY FEED-TUBE Lactulose (LACTULOSE) 20 GM Q12HR FEED-TUBE Tamsulosin HCl (Flomax 0.4 mg) 0.8 MG DAILY FEED-TUBE Atorvastatin Calcium (LIPITOR) 40 MG BEDTIME FEED-TUBE Polyethylene Glycol (MIRALAX) 17 GM Q12H PO Metoprolol Tartrate (LOPRESSOR) 50 MG Q8HR FEED-TUBE Senna/Docusate Sodium (SENOKOT S) 1 TAB Q12H FEED-TUBE Dextrose/Water (DEXTROSE 10% IN WATER) 125 ML ASDIR PRN IV (CKD) Dextrose/Water (DEXTROSE 10% IN WATER) 250 ML ASDIR PRN IV (CKD) Glucagon (GLUCAGON) 1 MG ASDIR PRN IM Metronidazole/Sodium Chloride (metroNIDAZOLE 500MG/NS 100ML) 100 ML Q12H IV (DC) Sodium Chloride (SODIUM CHLORIDE 0.9%) 250 ML BOLUS PRN IV Ceftriaxone Sodium (ROCEPHIN) 2,000 MG Q24H IV (DC) Sodium Chloride (SODIUM CHLORIDE) 20 MLLatanoprost (XALATAN 2.5 ML OPHTH SOLN) 1 DROP BEDTIME EACH EYE Timolol Maleate (TIMOPTIC 0.5% 5 ML OPHTH SOLN) 1 DROP BID EACH EYE Brimonidine Tartrate (Alphagan-P 0.2% 5 ML OPHTH SOLN) 1 DROP Q8HR EACH EYE Hydralazine HCl (APRESOLINE) 10 MG Q6H PRN PRN IV Ondansetron HCl (ZOFRAN) 4 MG Q4H PRN PRN IV Dietitian nutrition assessmentThe data set between the solid lines has been imported from the dietitian's assessment. BMI Calculated: 27.7Nutrition related diagnosis: OverweightNutrition diagnosis details: BMI 25-29.9Nutrition problem: Inadequate oral intakeNutrition etiology: PT LETHARGIC /SWALLOWING Nutrition signs and symptoms: ENTERAL NUTRITION TO MEET , ENERGY NEEDS , (DIET ADVANCED TO PUREED)Nutrition prescription: 1. RECOMMEND PUREED CCD5 DIET. 2. PROVIDE GLUCERNA TID WITH MEALS. 3. MONITOR PO, WT, LABS, BM.Dietitian name: Lucía Torres, DIETAssessment completed: 08/14/23 Physical ExamGeneral appearance: alert, awake, orientedHead/Eyes: atraumatic, normocephalic, PERRLAENT: moist mucosal membranes, normal dentitionCardiovascular: normal heart sounds, regular rate rhythmRespiratory: aerating well, symmetric expansion, no distressAbdomen: non-tender, normal bowel soundsGenitourinary: no bladder distention, no flank painExtremities: no clubbing, no cyanosisMusculoskeletal: no muscle spasmNeuro/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: abnormal speech, alert ResultsFindings/Data:Laboratory Tests 08/14 08/13 08/13 08/13 08/13 0540 2356 1932 1932 1723 Chemistry POC Glucose (70 - 110 MG/DL) 145 H 157 H 201 H Uric Acid (2.6 - 7.2 mg/dL) 4.4 C-Reactive Protein (<10.0 mg/L) 224.0 H 08/13 1151 Chemistry POC Glucose (70 - 110 MG/DL) 292 H Laboratory Tests 08/14 1931 Hematology ESR Westergren (0 - 15 mm/hr) 114 H Laboratory Tests 08/14 1931 Serology SARS-CoV-2 Ag (Rapid) (Negative) Negative Laboratory Tests 08/14 1931 Urines Urine Color (YEL/STRAW) SANDRA H Urine Appearance (CLEAR) SL CLOUDY Urine pH (5.0 - 7.0) 5.0 Ur Specific [place] (1.005 - 1.030) 1.017 Urine Protein (NEGATIVE) 2+ H Urine Glucose (UA) (NEGATIVE) 1+ H Urine Ketones (NEGATIVE) TRACE H Urine Blood (NEGATIVE) 2+ H Urine Nitrite (NEGATIVE) NEGATIVE Urine Bilirubin (NEGATIVE) NEGATIVE Urine Urobilinogen (0.2 - 1.0 mg/dL) 0.2 Ur Leukocyte Esterase (NEGATIVE) TRACE H Urine RBC (0 - 3 RBC/HPF) 4-10 Urine WBC (0 - 3 WBC/HPF) 4-9 H Ur Squamous Epith Cells (NONE SEEN /HPF) NONE SEEN Amorphous Sediment (NONE /HPF) 3+ H Urine Bacteria (NONE SEEN /HPF) TRACE Urine Mucus (NONE SEEN /LPF) TRACE Urine Yeast (NONE /HPF) 2+ H Microbiology Date/Time Procedure - Status Source Growth 08/14 1931 Influenza Virus Type B Antigen - COMP NASOPHARG 08/14 1931 Influenza Virus Type A Antigen - COMP NASOPHARG Radiology data:Recent Impressions:CAT SCAN - CT ABD PELVIS W/CONT 08/13 1645 Report Impression - Status: SIGNED Entered: 08/14/2023 1715 IMPRESSION:1. Interval partial improvement of the right liver lobe abscess witha catheter in good position.2. Worsening bibasilar lung infiltrative/atelectatic changes andsmall effusion.3. Mild to moderate diffuse ileus.4. No other new or acute findings.Impression By: Christi Espinosa M.D.RADIOLOGY - XR ABDOMEN 1V (KUB) 08/13 1810 Report Impression - Status: SIGNED Entered: 08/14/2023 181 IMPRESSION: Diffuse colonic ileus and mild small bowel ileus.Impression By: Christi Espinosa M.D. Results: labs reviewed, vital signs reviewed, vital signs stable, current med profile rev'd Free Text Obj NotesFree Text Obj Notes:ResultsFindings/Data:Laboratory Tests 08/08 08/08 08/07 08/07 08/07 0507 0348 2308 1433 1139 Chemistry Sodium (134 - 147 mEq/L) 154 H 155 H Potassium (3.4 - 5.0 mEq/L) 3.7 3.9 Chloride (100 - 108 mEq/L) 123 H 124 H Carbon Dioxide (21 - 33 mEq/l) 20 L 22 Anion Gap (0 - 20) 14 13 BUN (7 - 25 mg/dL) 20 26 H Creatinine (0.6 - 1.3 mg/dL) 1.0 0.7 Glomerular Filtr Rate (70 - 80) 81.0 H 99.1 H Glucose (77 - 141 mg/dL) 146 H 184 H POC Glucose (70 - 110 MG/DL) 119 H 135 H 162 H Calcium (8.0 - 10.5 mg/dL) 8.4 8.1 Laboratory Tests 08/08 08/07 08/07 0348 2039 1433 Hematology Hgb (12.5 - 16.9 g/dL) 9.6 L 9.3 L 9.5 L Hct (37.5 - 50.7 %) 28.7 L 27.9 L 28.3 L Radiology data:Recent Impressions:CAT SCAN - CT ABD PELVIS W WO CONT 08/07 1736 Report Impression - Status: SIGNED Entered: 08/08/20231736 IMPRESSION:No evidence of acute hemorrhage within the the liver and thegallbladder.Hyperdense contents within the gallbladder and 2nd segment of theduodenum may represent contrast and/or blood products.Large amount of stool within the rectum. LOCATION: [id number] By: Anthony Degroot M.D. Treatment Prophylaxis Treatment ProphylaxisOxygen: room air Diagnosis, Assessment PlanOrders: Procedure Date/time Status PHARMACY CONSULT 08/15 847 Active Code status: full codePlan discussed with: patient, admitting physician, consultants, nurse Free Text DxA P NotesFree text DxA P notes:Assessment - Acute Cholangitis/Cholelithiasis with distended gallbladder status post IR drainage of gallbladder/liver abscess- Acute stroke/Small focus of subacute ischemia in the left guo radiata.- Intraheptic abscess with Fistula to gallbaldder.- s/p IR drainage of liver abscess and gallbladder, drainage bilious today in IR drain, C tube bilious/bloody.- Superficial venous thrombosis of the right the left basilic vein.- Large amount of stool within the rectum.- Elevated LFTs and Bilirubin due to Possible Acute Chloangitis.- Elevated Troponin could be demand Ischemia.- Abd pain and N/V/Confusion- ARELY.- Hyperglycemia.- Sepsis; tachycardia, Bcx Gram neg rods- HX of HTN/DM type II/HLD and CAD s/p stent. Plan: 08/15/23: Floor.He is waiting for SNF approval.Tolerating diet.Pain meds.Antiemetics.Follow labs and replace as needed.Monitor Neuro status.Continue aspirin, Plavix.Aggressive PT and OT.Continue IV ABX for Bacteremia.Pain meds.Antiemetics.Glycemic control, Accu check AC HS, ISS, diabetic diet.GI and surgery following for elevated LFts and Liver abscess.Monitor. 08/14/23: Floor.Pending SNF choice.He is stable.Passed swallow test and able to eat diet per speech.Pain meds.Antiemetics.Follow labs and replace as needed.He needs interval cholecystectomy in the future, currently controlled with cholecystostomy tube and IR drain for liver abscess, given recent stroke, recentPCI on DAPT and bacteremia, not a good operative candidate currently.Monitor Neuro status.He is on aspirin, Plavix.Aggressive PT and OT.Continue IV ABX for Bacteremia.Pain meds.Antiemetics.Glycemic control, Accu check AC HS, ISS, diabetic diet.GI and surgery following for elevated LFts and Liver abscess.Monitor. 08/12-Telemetry, strict vital monitor, strict LAURYN's, monitor, replace electrolytes-s/p IR drainage of liver abscess and gallbladder, drainage bilious today in IR drain, C tube bilious now; surgery following will eventually need cholecystectomy-CTA this 08/07 w/o obvious bleed, drains appear roughly in proper position-cont IV abx, ID on board-Dobbhoff tube in place, speech eval pending-Continue aspirin and Plavix-PT OT-Hyperglycemia noted, insulin sliding scale, adjust Lantus, endocrine following-Transfer to [facility] floor 08/12/23: ICU.He pulled out Dobhoff twice.Will restrain.Speech for swallow eval.He needs interval cholecystectomy in the future, currently controlled with cholecystostomy tube and IR drain for liver abscess, given recent stroke, recentPCI on DAPT and bacteremia, not a good operative candidate currently.Monitor Neuro status.He is on aspirin, Plavix.Aggressive PT and OT.Continue IV ABX for Bacteremia.Pain meds.Antiemetics.Glycemic control, Accu check AC HS, ISS, diabetic diet.GI and surgery following for elevated LFts and Liver abscess.Monitor. 08/11/23: ICU.MRI brain showed Acute stroke/Small focus of subacute ischemia in the left guo radiata.He is on aspirin, Plavix.Aggressive PT and OT.Continue IV ABX for Bacteremia.Pain meds.Antiemetics.Glycemic control, Accu check AC HS, ISS, diabetic diet.Monitor. 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, strict vital monitor, strict I O's, monitor, replace electrolytes-Status post cholecystostomy tube placement, IV ceftriaxone/IV Flagyl, GI consulted-Insulin sliding scale-s/p IR drainage of liver abscess and gallbladder, drainage bilious today in IR drain, C tube bilious/bloody, hgb 8.8 (9.5), stable, pt on DAPT, cont to monitor-CTA this 08/07 w/o obvious bleed, drains appear roughly in proper position-cont IV abx, ID on board-Advance diet as per surgery-Continue aspirin, Plavix-Cholecystectomy eventually needed however recent stroke, recent PCI/bacteremia,high risk for procedure-Stroke, neurology following Quality: Gen Med Crit Care Advanced Care Plan 65 or OlderDiscussed with: patient, surrogate decis. maker at 0908 at 510 RPT #:[id number] OF REPORTPRProgress [id number]:05:00G.[id number] for patient lqvhOXQXGWILALOEKT9044-18-79K81:08:49 [facility]L 2023-08-14 19:24:00 [id number]+Pbmcc0e5R0/XWW hJ1+0o8DCPpb1T0jHJ8 I3eX4QWIUCWaWwBua0846-48-69M17:24:00 [facility] ([facility])Infectious Dis. Progress NoteREPORT#:[id number] REPORT STATUS: SignedREPORT INITIALIZATION DATE:08/14/23 TIME: 1923 PATIENT: MISSY CANALES UNIT #: [id number]#: [id number] [address] [birth year] AGE: 68 SEX: M ATTEND: Raphael Ly [facility] AUTHOR: Jv Colvin NPREPT SERVICE DT/TIME: 08/14/231923* ALL edits or amendments must be made on the electronic/computer document * SubjectiveChief complaint:Abd pain, N/V F/U BacteremiaNursing reports:No: complaints. Unable to obtain: patient condition Objective GeneralVS/I O:Vital SignsDate Temp Pulse Resp B/P B/P Mean Pulse Ox FhE841/-08/13 97.7-101.8 92-118 14-18 102-153/62-75 78.9-98.7 93-100 Last Documented: Result Date Time Pulse Ox 96 08/13 1723 B/P 120/73 08/13 1723 B/P Mean 88.5 08/13 1723 Temp 98.4 08/13 1723 Pulse 102 08/13 1723 Resp 18 08/13 1723 O2 Delivery Nasal cannula 08/13 0800 O2 Flow Rate 2 08/13 0800 FiO2 40 08/07 0752 Vital Signs: Date Time Temp Pulse Resp B/P B/P Pulse O2 O2 Flow FiO2 Mean Ox Delivery Rate 08/13 1723 98.4 102 18 120/73 88.5 96 08/13 1153 99.7 92 18 145/75 98.1 97 08/13 0825 97.7 118 127/62 83.5 100 08/13 0800 Nasal 2 cannula 08/13 0456 101.8 114 14 153/72 98.7 93 Room air 08/12 2335 100.2 96 17 102/67 78.9 94 Room air 08/12 1959 99.3 113 14 121/71 87.8 97 Room air 24 hour I O ending at 0700: 08/13 0700 08/12 1900 Intake Total 2220 Output Total Balance 2220 Intake, Free 1500 Water Intake, Tube 720 Feeding PATIENT WEIGHT: Weight (lb): 177Weight (oz): 14.61Weight (kg): 80.286 Physical ExamWound/incision: Location:Cholecystostomy tube- bilious RUQ drain- seropurulentHead/Eyes: atraumatic, normocephalicCardiovascular: tachycardia, no murmurRespiratory: clear to auscultation, aerating well, symmetric expansionAbdomen: non-tender, soft, no distention, percutaneous drains in place in RUQExtremities: no cyanosis, no edemaNeuro/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: alertSkin: dry, no rashPsychiatry: unable to evaluate ResultsFindings/Data:Laboratory Tests 08/13 08/13 08/13 08/13 1723 1151 0619 0444 Chemistry POC Glucose (70 - 110 MG/DL) 201 H 292 H 228 H 251 H Radiology data:Impression By: Christi Espinosa M.D.RADIOLOGY - XR ABDOMEN 1V (KUB) 08/13 1810 Report Impression - Status: SIGNED Entered: 08/14/20231818 IMPRESSION: Diffuse colonic ileus and mild small bowel ileus.Impression By: Christi Espinosa M.D. Results: labs reviewed, vital signs reviewed, vital signs stable, current med profile rev'd Diagnosis, Assessment PlanFree Text A P:Fever--Recurrent after improvement--UA via straight cath--Covid--Flu--F/U CT A/PSepsis, resolved--Fever, tachycardia, leukocytosis--Source: BacteremiaBacteremia--Citrobacter--Source: BiliaryLiver abscess--MRCP showed 4.6 x 3.6 x 3.0 thick walled cystic lesion/fluid collection liver abutting GB fossa--S/P IR drain 08/05, cx CitrobacterAcute cholecystitis--S/P IR placed cholecystotomy tube 3.11, cx CitrobacterAcute stroke--MRI (+) subacute Left guo radiata--CTA neck (+) high grade mfhmfnxxVJXDB9EWWVYL On Rocephin/Flagyl, abx started 3 (Day 10); change to Zosyn Pt will need chcf abx for liver abscess, with f/u CT to ensure resolution of abcess prior to stopping abx Seen and examined with Dr BrothersDM was done entirely by Dr Hobson discussed with: patient, spouse/partner, nurse at 1933 at 2118 RPT #:[id number] OF REPORTPRProgress jgxj2710-85-77P89:24:00G.[id number] for patient rcthUZDTVWVDSMLLLT0688-39-88S42:33:19 [facility]L 2023-08-14 14:30:00 [id number]/oetqsvIc8l8g7nyPRZ9bGnC7dB xjdRxCmynjWBirZZWpe ubDsacuIWSwnErc/e5533-05-29J61:30:00 [facility] Progress NoteREPORT#:[id number] REPORT STATUS: SignedREPORT INITIALIZATION DATE:08/14/23 TIME: 143 PATIENT: MISSY CANALES UNIT #: [id number]#: [id number] [address] [birth year] AGE: 68 SEX: M ATTEND: Raphael Ly MDADM AUTHOR: Lisa Cancino MDREPT SERVICE DT/TIME: 08/14/23 1430* ALL edits or amendments must be made on the electronic/computer document * SubjectiveChief complaint:Elevated LFtsHPI:68 year old man s/p cardiac stents 2 weeks ago who was sent to the hospital withelevated LFTs and possible acute cholecystitis. Pt had a stenet recently placed and was started on DAPT. Pt had labs showing elevated LFTs and was sent here forevaluation. Labs showed leukocytosis 15k. Elevated Tbili 3.7. Dbili 2.8. AST 79,ALT 105 and ALP 225. RUQ U/S showed possible cholecystitis and normal CBD of 4 mm in diatmeter. Pt denies pain. No dark urine or peyton-color stool 08/03; patient feels well. MRCP reviewed. No choledocholithiasis. Fluid collection at the liver could be related secondary to gallbladder perforation. LFTs and white count are down. 08/04: Plan for IR for cholecystostomy tube placement. LFts stable. WBC elevated.Was confused this am but improving. NO pain. No fevers. Added flagyl to his Abx regimen 08/05: NO new complaints. IR for abscess drain and cholecystostomy tube 08/06: Transferred overnight to ICU due to AMS. S/P IR with cholecystostomy tube and abscess drain 08/07: severely constipated. NGT in with feeds. drains in. More awake today and oriented. right sided weakness likely acute stroke. MRI brain reviewed- small stroke. KUB reviewed 08/08: Doing better according to . Sheldon removed. Still on feeds 08/09: Feeds at 20 ml/hr. Still no BM 08/10-Had BM last night. Denies n/v/abd pain 08/11-Patient dislodged DH. DH was replaced. +BM today 08/12: has been having BM during the weekend 08/13: No new events Objective Physical ExamHEENT: EOMICardiovascular: normal heart soundsRespiratory: clear to auscultationAbdomen: non-tenderExtremities: no edemaSkin: dry, normal temperature Diagnosis, Assessment PlanProblem List/A P: 1. Elevated LFTs Free Text A P:cholestatic pattern. CBD normal on RuQ U/S MRCP showed no evidence of choledocholithiasis.Large fluid collection within the liver could be secondary to gallbladder perforation.Recommend surgical evaluation again.Continue with antibiotics. Add flagyl s/p cholecystostomy tube and drainage of cystic fluid collection. Awaiting culture Surgery consultation reviewed. Agree with plan Acute strokeconstipation:moving bowels but still distended. Will get KUBWill follow at 1510 RPT #:[id number] OF REPORTPRProgress gkot2856-79-80G60:30:00G.[id number] for patient swgtOIGCZKLHXEMRQT5187-61-45B67:10:55 [facility] 2023-08-14 12:58:00 [id number]+8vUwiwezlj01GD04W lrU78ZE7PFzT9lgHgqA 6vTAuI12UEMKmOFZA6323-26-33Y69:58:00 [facility] ([facility])Endocrinology Progress NoteREPORT#:[id number] REPORT STATUS: SignedREPORT INITIALIZATION DATE:08/14/23 TIME: 1257 PATIENT: MISSY CANALES UNIT #: [id number]#: [id number] [address] [birth year] AGE: 68 SEX: M ATTEND: Raphael Ly MDADM AUTHOR: Marlen Stevens DRY BOX OPERATOR-CREPT SERVICE DT/TIME: 08/14/23 1258* ALL edits or amendments must be made on the electronic/computer document * SubjectiveChief complaint:f/u DM IITFglucose slightly elevated, over 200 Objective GeneralVS:Last Documented: Result Date Time Pulse Ox 97 08/13 1153 B/P 145/75 08/13 1153 B/P Mean 98.1 08/13 1153 Temp 99.7 08/13 1153 Pulse 92 08/13 1153 Resp 18 08/13 1153 O2 Delivery Nasal cannula 08/13 0800 O2 Flow Rate 2 08/13 0800 FiO2 40 08/07 0752 PATIENT WEIGHT: Weight (lb): 177Weight (oz): 14.61Weight (kg): 80.286 Medications:Active Meds + DC'd Last 24 HrsPhosphorus (K-PHOS NEUTRAL) 250 MG BID FEED-TUBE Piperacillin Sod/Tazobactam Sod (ZOSYN 3.375GM) 3.375 GM Q8H IV (UNV) Sodium Chloride (SODIUM CHLORIDE 0.9% 100 ML) 100 MLInsulin Glargine (Semglee) 25 UNIT DAILY SUBQ Acetaminophen (TYLENOL) 650 MG Q6H PRN PRN PO Insulin Human Lispro (HUMALOG) 0 Q6H SUBQ Bisacodyl (DULCOLAX) 10 MG DAILY PRN PRN RECTAL Allopurinol (ZYLOPRIM) 300 MG DAILY FEED-TUBE Aspirin (ASPIRIN) 81 MG DAILY FEED-TUBE Clopidogrel Bisulfate (Plavix) 75 MG DAILY FEED-TUBE Lactulose (LACTULOSE) 20 GM Q12HR FEED-TUBE Tamsulosin HCl (Flomax 0.4 mg) 0.8 MG DAILY FEED-TUBE Atorvastatin Calcium (LIPITOR) 40 MG BEDTIME FEED-TUBE Polyethylene Glycol (MIRALAX) 17 GM Q12H PO Metoprolol Tartrate (LOPRESSOR) 50 MG Q8HR FEED-TUBE Senna/Docusate Sodium (SENOKOT S) 1 TAB Q12H FEED-TUBE Dextrose/Water (DEXTROSE 10% IN WATER) 125 ML ASDIR PRN IV (CKD) Dextrose/Water (DEXTROSE 10% IN WATER) 250 ML ASDIR PRN IV (CKD) Glucagon (GLUCAGON) 1 MG ASDIR PRN IM Insulin Glargine (Semglee) 20 UNIT DAILY SUBQ (DC) Metronidazole/Sodium Chloride (metroNIDAZOLE 500MG/NS 100ML) 100 ML Q12H IV (DCr) Sodium Chloride (SODIUM CHLORIDE 0.9%) 250 ML BOLUS PRN IV Ceftriaxone Sodium (ROCEPHIN) 2,000 MG Q24H IV (DCr) Sodium Chloride (SODIUM CHLORIDE) 20 MLLatanoprost (XALATAN 2.5 ML OPHTH SOLN) 1 DROP BEDTIME EACH EYE Timolol Maleate (TIMOPTIC 0.5% 5 ML OPHTH SOLN) 1 DROP BID EACH EYE Brimonidine Tartrate (Alphagan-P 0.2% 5 ML OPHTH SOLN) 1 DROP Q8HR EACH EYE Hydralazine HCl (APRESOLINE) 10 MG Q6H PRN PRN IV Ondansetron HCl (ZOFRAN) 4 MG Q4H PRN PRN IV Dietitian nutrition assessmentThe data set between the solid lines has been imported from the dietitian's assessment. BMI Calculated: 27.7Nutrition related diagnosis: OverweightNutrition diagnosis details: BMI 25-29.9Nutrition problem: Inadequate oral intakeNutrition etiology: PT LETHARGIC /SWALLOWING Nutrition signs and symptoms: ENTERAL NUTRITION TO MEET , ENERGY NEEDS Nutrition prescription: RECOMMEND: VITAL AF@ 68 MLS WILL PROVIDE: GMS/1362 MLS FW/DAILY FOLLOW ENVIRONMENTAL PROTECTION ECONOMIST FOR DIET ADVANCEMENT Dietitian name: Rohan Basiliocheryldanniemorelia, DIETAssessment completed: 08/09/23 Physical ExamGeneral appearance: awakeHEENT: atraumatic, clear cornea, normocephalicNeck: suppleCardiovascular: regular rate rhythmRespiratory: on oxygenAbdomen: softGenitourinary: not indicatedExtremities: warmNeuro/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: alertSkin: warmResults: labs reviewed Diagnosis, Assessment PlanFree Text A P:1.DM GMJiaQ9o 8.2adjust Lantus continue SSI monitor glucose NPO on TFDC Plan: Lantus, Humalog, and Farxiga; follow at next available appointment. 2.Abnormal thyroid functions 08/06 TSH 0.07 FT4 1 recheck in a couple of days 3.Suspected ischemic strokeMRI brain without contrastEchocardiogramTelemetryneurology following 4.Coronary artery diseasePCI on July 03, 2023Echocardiogram preserved LVEFdual antiplateletscardiology following 5. Elevated LFTsGI following 6.MRCP with complex cystic fluid collectionpost drainage surgery following at 1300 at 1256 RPT #:[id number] OF REPORTPRProgress incc5502-05-42V48:58:00G.[id number] for patient exotVEGUCFDKKFLGEW2706-39-36B63:00:22 [facility]ACL 2023-08-14 09:24:00 [id number]9Ip 0zcNASdHyB3Ks3Fl9PC 8+NmxGQBXgZoFa/Wu4648-27-28S05:24:00 [facility] ([facility])Cardiology Progress NoteREPORT#:[id number] REPORT STATUS: SignedREPORT INITIALIZATION DATE:08/14/23 TIME: 923 PATIENT: MISSY CANALES UNIT #: [id number]#: [id number] [address] [birth year] AGE: 68 SEX: M ATTEND: Raphael yL MDADM AUTHOR: Esther Buckner AGACNPREPT SERVICE DT/TIME: 08/14/23923* ALL edits or amendments must be made on the electronic/computer document * SubjectiveComments:Transferred out of ICU. Objective GeneralVS/I O:24 hour I O ending at 0700: 08/13 0700 08/12 1900 Intake Total 2220 Output Total Balance 2220 Intake, Free 1500 Water Intake, Tube 720 Feeding Vital Signs: Date Time Temp Pulse Resp B/P B/P Pulse O2 O2 Flow FiO2 Mean Ox Delivery Rate 08/13 0825 36.5 118 127/62 83.5 100 08/13 0456 38.8 114 14 153/72 98.7 93 Room air 08/12 2335 37.9 96 17 102/67 78.9 94 Room air 08/12 1959 37.4 113 14 121/71 87.8 97 Room air 08/12 1900 105 29 118/54 78 100 08/12 1801 102 29 118/57 79 100 08/12 1707 99 32 149/53 76 97 08/12 1600 37.7 08/12 1600 88 26 83/61 67 100 08/12 1531 88 23 84/41 58 100 08/12 1501 92 22 88/42 60 100 08/12 1400 109 28 133/60 87 100 08/12 1300 108 27 116/63 84 100 08/12 1201 112 38 112/66 71 100 08/12 1200 38.2 08/12 1100 106 31 119/58 84 99 08/12 1043 105 34 123/76 95 100 PATIENT WEIGHT: Weight (lb): 177Weight (oz): 14.61Weight (kg): 80.286 Medications:Active Meds + DC'd Last 24 HrsInsulin Glargine (Semglee) 25 UNIT DAILY SUBQ Acetaminophen (TYLENOL) 650 MG Q6H PRN PRN PO Insulin Human Lispro (HUMALOG) 0 Q6H SUBQ Bisacodyl (DULCOLAX) 10 MG DAILY PRN PRN RECTAL Allopurinol (ZYLOPRIM) 300 MG DAILY FEED-TUBE Aspirin (ASPIRIN) 81 MG DAILY FEED-TUBE Clopidogrel Bisulfate (Plavix) 75 MG DAILY FEED-TUBE Lactulose (LACTULOSE) 20 GM Q12HR FEED-TUBE Tamsulosin HCl (Flomax 0.4 mg) 0.8 MG DAILY FEED-TUBE Atorvastatin Calcium (LIPITOR) 40 MG BEDTIME FEED-TUBE Polyethylene Glycol (MIRALAX) 17 GM Q12H PO Metoprolol Tartrate (LOPRESSOR) 50 MG Q8HR FEED-TUBE Senna/Docusate Sodium (SENOKOT S) 1 TAB Q12H FEED-TUBE Dextrose/Water (DEXTROSE 10% IN WATER) 125 ML ASDIR PRN IV (CKD) Dextrose/Water (DEXTROSE 10% IN WATER) 250 ML ASDIR PRN IV (CKD) Glucagon (GLUCAGON) 1 MG ASDIR PRN IM Insulin Glargine (Semglee) 20 UNIT DAILY SUBQ (DC) Metronidazole/Sodium Chloride (metroNIDAZOLE 500MG/NS 100ML) 100 ML Q12H IV Sodium Chloride (SODIUM CHLORIDE 0.9%) 250 ML BOLUS PRN IV Ceftriaxone Sodium (ROCEPHIN) 2,000 MG Q24H IV Sodium Chloride (SODIUM CHLORIDE) 20 MLLatanoprost (XALATAN 2.5 ML OPHTH SOLN) 1 DROP BEDTIME EACH EYE Timolol Maleate (TIMOPTIC 0.5% 5 ML OPHTH SOLN) 1 DROP BID EACH EYE Brimonidine Tartrate (Alphagan-P 0.2% 5 ML OPHTH SOLN) 1 DROP Q8HR EACH EYE Hydralazine HCl (APRESOLINE) 10 MG Q6H PRN PRN IV Ondansetron HCl (ZOFRAN) 4 MG Q4H PRN PRN IV Physical ExamGeneral appearance: awakeNeck: non-tender, no JVDCardiovascular: CV assessment: tachycardia, regular rate and rhythmRespiratory: decreased breath sounds, no distressAbdomen: soft, non-tender, normal bowel sounds, no distentionUpper extremity: UE assessment: normal capillary refill, normal temperatureLower extremity: LE assessment: no edemaMusculoskeletal: decreased ROMNeuro/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: right hemiparesisSkin: dryPsychiatry: unable to evaluate ResultsFindings/Data:Laboratory Tests 08/13 08/13 08/12 08/12 08/12 0619 0444 1911 1707 1231 Chemistry Sodium (134 - 147 mEq/L) 134 Potassium (3.4 - 5.0 mEq/L) 3.2 L Chloride (100 - 108 mEq/L) 102 Carbon Dioxide (21 - 33 mEq/l) 24 Anion Gap (0 - 20) 11 BUN (7 - 25 mg/dL) 14 Creatinine (0.6 - 1.3 mg/dL) 0.8 Glomerular Filtr Rate (70 - 80) 95.2 H Glucose (77 - 141 mg/dL) 232 H POC Glucose (70 - 110 MG/DL) 228 H 251 H 278 H 303 H Calcium (8.0 - 10.5 mg/dL) 7.3 L Phosphorus (2.5 - 4.9 MG/DL) 1.5 L Magnesium (1.6 - 2.6 mg/dL) 1.86 Total Bilirubin (0.0 - 1.0 mg/dL) 0.60 AST (8 - 34 IUnit/L) 69 H ALT (10 - 49 IUnit/L) 34 Total Alk Phosphatase (20 - 125 IUnit/L) 133 H Total Protein (6.4 - 8.2 g/dL) 6.7 Albumin (3.4 - 5.0 g/dL) 1.70 L Laboratory Tests 08/12 1910 Hematology WBC (4.5 - 11.0 x10 3/uL) 16.6 H RBC (4.00 - 5.60 x10 6/uL) 2.84 L Hgb (12.5 - 16.9 g/dL) 8.7 L Hct (37.5 - 50.7 %) 25.1 L MCV (81.0 - 99.0 fL) 88.4 MCH (27.0 - 33.0 pg) 30.6 MCHC (33.0 - 37.0 g/dL) 34.7 RDW (11.5 - 14.5 %) 14.9 H Plt Count (150 - 400 x10 3/uL) 387 MPV (7.0 - 9.0 fL) 10.3 H Neut % (Auto) (56.0 - 77.0 %) 77.4 H Lymph % (Auto) (14.0 - 32.0 %) 14.0 Evans % (Auto) (4.8 - 9.0 %) 7.0 Eos % (Auto) (0.3 - 3.7 %) 0.5 Baso % (Auto) (0.0 - 2.0 %) 0.2 Neut # (Auto) (2.0 - 7.6 x10 3/uL) 12.81 H Lymph # (Auto) (1.0 - 3.8 x10 3/uL) 2.32 Evans # (Auto) (0.1 - 0.8 x10 3/uL) 1.16 H Eos # (Auto) (0.0 - 0.2 x10 3/uL) 0.09 Baso # (Auto) (0.0 - 0.2 x10 3/uL) 0.03 Abs Immat Gran (auto) (0.00 - 0.03 x10 3/uL) 0.15 H Immature Gran % (0.0 - 2.0 %) 0.9 Nucleated RBC % (0 - 0 %) 0.0 Nucleated RBCs # (Man) (0.0 - 0.1 x10 3/uL) 0.00 Laboratory Tests 08/12 1911 Chemistry Magnesium (1.6 - 2.6 mg/dL) 1.86 Results: labs reviewed, vital signs reviewed Diagnosis, Assessment PlanPlan discussed with: patient, spouse/partner, collaborating MD, nurse Free Text DxA P NotesFree Text DxA P Notes:1. Coronary artery disease s/p recent PCI/TERESA to diagonal artery* Troponin trend is flat* Hx of CABG (2000)* s/p stent placement to diagonal artery on 07/02/23. Still need staged PCI to RCA. * Continue Plavix and aspirin - do not stop Plavix d/t risk of stent thrombosis* Echocardiogram preserved LVEF. 2. Elevated LFTs/acute cholecystitis/liver abscess* s/p cholecystostomy tube placement. * GI on board* ID on board managing antibiotic 3. AMS: MRI brain showed small subacute ischemia in the L coronary radiata * Neurology following 4. Tachycardia with frequent PVCs * Continue metoprolol 50 mg every 8 hours. * replace potassium and phosphate with KPhos* RN to connect patient to continuous telemetry monitoring Medical decision making by Dr. Daniel. at 1216 at 0822 RPT #:[id number] OF REPORTPRProgress kzox0505-24-01E11:24:00G.[id number] for patient kjjtFIQTQZZOGZYQXU1674-23-68G41:16:55 [facility] 2023-08-14 08:58:00 [id number] TYm99B2ER9mXc8hmlIm Zmp+9OuT5pjpWDVDq1490-85-53M18:58:00 [facility] CenterHospital[facility] Progress NoteREPORT#:[id number] REPORT STATUS: SignedREPORT INITIALIZATION DATE:08/14/23 TIME: 857 PATIENT: MISSY CANALES UNIT #: [id number]#: [id number] [address] [birth year] AGE: 68 SEX: M ATTEND: Raphael Ly MDA AUTHOR: Vitaly Jordan NPREPT SERVICE DT/TIME: 08/14/23 0858* ALL edits or amendments must be made on the electronic/computer document * SubjectiveChief complaint:He is awake.Passed Swallow test.he is clear for diet per Speech.Breathing is stable.Not in distress.Less Abd pain, N/v. Review of SystemsConstitutional:Reports: fatigue, generalized weakness. Allergy/Immun:Denies: anaphylaxis, hives, rhinorrhea. Respiratory:Denies: hemoptysis, parox nocturnal dyspnea, pleuritic pain, pneumonia, productive cough (sputum). Cardiovascular:Denies: HAMMOND (dyspnea on exertion), orthopnea, palpitations. GI:Denies: abdominal pain, GERD, hematemesis, nausea, rectal pain. :Denies: flank pain, hematuria, testicular pain. Heme:Denies: bleeding, bruising. Neuro:Denies: change in LOC, dizziness, headache, spinning sensation, syncope. Objective GeneralVS/I O:Vital Signs: Date Time Temp Pulse Resp B/P B/P Pulse O2 O2 Flow FiO2 Mean Ox Delivery Rate 08/13 0825 36.5 118 127/62 83.5 100 08/13 0456 38.8 114 14 153/72 98.7 93 Room air 08/12 2335 37.9 96 17 102/67 78.9 94 Room air 08/12 1959 37.4 113 14 121/71 87.8 97 Room air 08/12 1900 105 29 118/54 78 100 08/12 1801 102 29 118/57 79 100 08/12 1707 99 32 149/53 76 97 08/12 1600 37.7 08/12 1600 88 26 83/61 67 100 08/12 1531 88 23 84/41 58 100 08/12 1501 92 22 88/42 60 100 08/12 1400 109 28 133/60 87 100 08/12 1300 108 27 116/63 84 100 08/12 1201 112 38 112/66 71 100 08/12 1200 38.2 08/12 1100 106 31 119/58 84 99 08/12 1043 105 34 123/76 95 100 08/12 0901 103 29 123/53 67 100 24 hour I O ending at 0700: 08/13 0700 08/12 1900 Intake Total 2220 Output Total Balance 2220 Intake, Free 1500 Water Intake, Tube 720 Feeding PATIENT WEIGHT: Weight (lb): 177Weight (oz): 14.61Weight (kg): 80.286 Medications:Active Meds + DC'd Last 24 HrsInsulin Glargine (Semglee) 25 UNIT DAILY SUBQ (UNV) Acetaminophen (TYLENOL) 650 MG Q6H PRN PRN PO Insulin Human Lispro (HUMALOG) 0 Q6H SUBQ Bisacodyl (DULCOLAX) 10 MG DAILY PRN PRN RECTAL Allopurinol (ZYLOPRIM) 300 MG DAILY FEED-TUBE Aspirin (ASPIRIN) 81 MG DAILY FEED-TUBE Clopidogrel Bisulfate (Plavix) 75 MG DAILY FEED-TUBE Lactulose (LACTULOSE) 20 GM Q12HR FEED-TUBE Tamsulosin HCl (Flomax 0.4 mg) 0.8 MG DAILY FEED-TUBE Atorvastatin Calcium (LIPITOR) 40 MG BEDTIME FEED-TUBE Polyethylene Glycol (MIRALAX) 17 GM Q12H PO Metoprolol Tartrate (LOPRESSOR) 50 MG Q8HR FEED-TUBE Senna/Docusate Sodium (SENOKOT S) 1 TAB Q12H FEED-TUBE Dextrose/Water (DEXTROSE 10% IN WATER) 125 ML ASDIR PRN IV (CKD) Dextrose/Water (DEXTROSE 10% IN WATER) 250 ML ASDIR PRN IV (CKD) Glucagon (GLUCAGON) 1 MG ASDIR PRN IM Insulin Glargine (Semglee) 20 UNIT DAILY SUBQ (DCr) Metronidazole/Sodium Chloride (metroNIDAZOLE 500MG/NS 100ML) 100 ML Q12H IV Sodium Chloride (SODIUM CHLORIDE 0.9%) 250 ML BOLUS PRN IV Ceftriaxone Sodium (ROCEPHIN) 2,000 MG Q24H IV Sodium Chloride (SODIUM CHLORIDE) 20 MLLatanoprost (XALATAN 2.5 ML OPHTH SOLN) 1 DROP BEDTIME EACH EYE Timolol Maleate (TIMOPTIC 0.5% 5 ML OPHTH SOLN) 1 DROP BID EACH EYE Brimonidine Tartrate (Alphagan-P 0.2% 5 ML OPHTH SOLN) 1 DROP Q8HR EACH EYE Hydralazine HCl (APRESOLINE) 10 MG Q6H PRN PRN IV Ondansetron HCl (ZOFRAN) 4 MG Q4H PRN PRN IV Dietitian nutrition assessmentThe data set between the solid lines has been imported from the dietitian's assessment. BMI Calculated: 27.7Nutrition related diagnosis: OverweightNutrition diagnosis details: BMI 25-29.9Nutrition problem: Inadequate oral intakeNutrition etiology: PT LETHARGIC /SWALLOWING Nutrition signs and symptoms: ENTERAL NUTRITION TO MEET , ENERGY NEEDS Nutrition prescription: RECOMMEND: VITAL AF@ 68 MLS WILL PROVIDE: 2016/126 GMS/1362 MLS FW/DAILY FOLLOW ENVIRONMENTAL PROTECTION ECONOMIST FOR DIET ADVANCEMENT Dietitian name: Rohan Sarah, DIETAssessment completed: 08/09/23 Physical ExamGeneral appearance: frail, awakeHead/Eyes: atraumatic, normocephalic, PERRLAENT: moist mucosal membranes, normal dentitionCardiovascular: normal heart sounds, regular rate rhythmRespiratory: aerating well, symmetric expansion, no distressAbdomen: non-tender, normal bowel soundsGenitourinary: no bladder distention, no flank painExtremities: no clubbing, no cyanosisMusculoskeletal: no muscle spasmNeuro/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: abnormal speech, alert ResultsFindings/Data:Laboratory Tests 08/13 08/13 08/12 08/12 08/12 [id number] 1911 [id number] Sodium (134 - 147 mEq/L) 134 Potassium (3.4 - 5.0 mEq/L) 3.2 L Chloride (100 - 108 mEq/L) 102 Carbon Dioxide (21 - 33 mEq/l) 24 Anion Gap (0 - 20) 11 BUN (7 - 25 mg/dL) 14 Creatinine (0.6 - 1.3 mg/dL) 0.8 Glomerular Filtr Rate (70 - 80) 95.2 H Glucose (77 - 141 mg/dL) 232 H POC Glucose (70 - 110 MG/DL) 228 H 251 H 278 H 303 H Calcium (8.0 - 10.5 mg/dL) 7.3 L Phosphorus (2.5 - 4.9 MG/DL) 1.5 L Magnesium (1.6 - 2.6 mg/dL) 1.86 Total Bilirubin (0.0 - 1.0 mg/dL) 0.60 AST (8 - 34 IUnit/L) 69 H ALT (10 - 49 IUnit/L) 34 Total Alk Phosphatase (20 - 125 133 HIUnit/L) Total Protein (6.4 - 8.2 g/dL) 6.7 Albumin (3.4 - 5.0 g/dL) 1.70 L Laboratory Tests 08/12 1911 Hematology WBC (4.5 - 11.0 x10 3/uL) 16.6 H RBC (4.00 - 5.60 x10 6/uL) 2.84 L Hgb (12.5 - 16.9 g/dL) 8.7 L Hct (37.5 - 50.7 %) 25.1 L MCV (81.0 - 99.0 fL) 88.4 MCH (27.0 - 33.0 pg) 30.6 MCHC (33.0 - 37.0 g/dL) 34.7 RDW (11.5 - 14.5 %) 14.9 H Plt Count (150 - 400 x10 3/uL) 387 MPV (7.0 - 9.0 fL) 10.3 H Neut % (Auto) (56.0 - 77.0 %) 77.4 H Lymph % (Auto) (14.0 - 32.0 %) 14.0 Evans % (Auto) (4.8 - 9.0 %) 7.0 Eos % (Auto) (0.3 - 3.7 %) 0.5 Baso % (Auto) (0.0 - 2.0 %) 0.2 Neut # (Auto) (2.0 - 7.6 x10 3/uL) 12.81 H Lymph # (Auto) (1.0 - 3.8 x10 3/uL) 2.32 Evans # (Auto) (0.1 - 0.8 x10 3/uL) 1.16 H Eos # (Auto) (0.0 - 0.2 x10 3/uL) 0.09 Baso # (Auto) (0.0 - 0.2 x10 3/uL) 0.03 Abs Immat Gran (auto) (0.00 - 0.03 x10 3/uL) 0.15 H Immature Gran % (0.0 - 2.0 %) 0.9 Nucleated RBC % (0 - 0 %) 0.0 Nucleated RBCs # (Man) (0.0 - 0.1 x10 3/uL) 0.00 Results: labs reviewed, vital signs reviewed, vital signs stable, current med profile rev'd Free Text Obj NotesFree Text Obj Notes:ResultsFindings/Data:Laboratory Tests 08/08 08/08 08/07 08/07 08/07 0507 0348 2308 1433 1139 Chemistry Sodium (134 - 147 mEq/L) 154 H 155 H Potassium (3.4 - 5.0 mEq/L) 3.7 3.9 Chloride (100 - 108 mEq/L) 123 H 124 H Carbon Dioxide (21 - 33 mEq/l) 20 L 22 Anion Gap (0 - 20) 14 13 BUN (7 - 25 mg/dL) 20 26 H Creatinine (0.6 - 1.3 mg/dL) 1.0 0.7 Glomerular Filtr Rate (70 - 80) 81.0 H 99.1 H Glucose (77 - 141 mg/dL) 146 H 184 H POC Glucose (70 - 110 MG/DL) 119 H 135 H 162 H Calcium (8.0 - 10.5 mg/dL) 8.4 8.1 Laboratory Tests 08/08 08/07 08/07 0348 2039 1433 Hematology Hgb (12.5 - 16.9 g/dL) 9.6 L 9.3 L 9.5 L Hct (37.5 - 50.7 %) 28.7 L 27.9 L 28.3 L Radiology data:Recent Impressions:CAT SCAN - CT ABD PELVIS W WO CONT 08/07 1736 Report Impression - Status: SIGNED Entered: 08/08/20231736 IMPRESSION:No evidence of acute hemorrhage within the the liver and thegallbladder.Hyperdense contents within the gallbladder and 2nd segment of theduodenum may represent contrast and/or blood products.Large amount of stool within the rectum. LOCATION: [facility] By: Anthony Degroot M.D. 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 Plan: 08/14/23: Floor.Pending SNF choice.He is stable.Passed swallow test and able to eat diet per speech.Pain meds.Antiemetics.Follow labs and replace as needed.He needs interval cholecystectomy in the future, currently controlled with cholecystostomy tube and IR drain for liver abscess, given recent stroke, recentPCI on DAPT and bacteremia, not a good operative candidate currently.Monitor Neuro status.He is on aspirin, Plavix.Aggressive PT and OT.Continue IV ABX for Bacteremia.Pain meds.Antiemetics.Glycemic control, Accu check AC HS, ISS, diabetic diet.GI and surgery following for elevated LFts and Liver abscess.Monitor. 08/12-Telemetry, strict vital monitor, strict LAURYN's, monitor, replace electrolytes-s/p IR drainage of liver abscess and gallbladder, drainage bilious today in IR drain, C tube bilious now; surgery following will eventually need cholecystectomy-CTA this 08/07 w/o obvious bleed, drains appear roughly in proper position-cont IV abx, ID on board-Dobbhoff tube in place, speech eval pending-Continue aspirin and Plavix-PT OT-Hyperglycemia noted, insulin sliding scale, adjust Lantus, endocrine following-Transfer to [facility] floor 08/12/23: ICU.He pulled out Dobhoff twice.Will restrain.Speech for swallow eval.He needs interval cholecystectomy in the future, currently controlled with cholecystostomy tube and IR drain for liver abscess, given recent stroke, recentPCI on DAPT and bacteremia, not a good operative candidate currently.Monitor Neuro status.He is on aspirin, Plavix.Aggressive PT and OT.Continue IV ABX for Bacteremia.Pain meds.Antiemetics.Glycemic control, Accu check AC HS, ISS, diabetic diet.GI and surgery following for elevated LFts and Liver abscess.Monitor. 08/11/23: ICU.MRI brain showed Acute stroke/Small focus of subacute ischemia in the left guo radiata.He is on aspirin, Plavix.Aggressive PT and OT.Continue IV ABX for Bacteremia.Pain meds.Antiemetics.Glycemic control, Accu check AC HS, ISS, diabetic diet.Monitor. 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, strict vital monitor, strict I O's, monitor, replace electrolytes-Status post cholecystostomy tube placement, IV ceftriaxone/IV Flagyl, GI consulted-Insulin sliding scale-s/p IR drainage of liver abscess and gallbladder, drainage bilious today in IR drain, C tube bilious/bloody, hgb 8.8 (9.5), stable, pt on DAPT, cont to monitor-CTA this 08/07 w/o obvious bleed, drains appear roughly in proper position-cont IV abx, ID on board-Advance diet as per surgery-Continue aspirin, Plavix-Cholecystectomy eventually needed however recent stroke, recent PCI/bacteremia,high risk for procedure-Stroke, neurology following Quality: Gen Med Crit Care Advanced Care Plan 65 or OlderDiscussed with: patient, surrogate decis. maker at 0901 at 2054 RPT #:[id number] OF REPORTPRProgress [id number]:58:00G.[id number] for patient obnsUVZDLPVTJKLWFT3437-99-21K58:02:14 [facility] 2023-08-13 22:40:00 [id number]3 DbATcXeleuC5vwiemHv 1KMBC3sBjvb3jGgN05651-89-47R65:40:00 [facility] ([facility]urgical Oncology Progress NotREPORT#:[id number] REPORT STATUS: SignedREPORT INITIALIZATION DATE:08/13/23 TIME: 2239 PATIENT: MISSY CANALES UNIT #: [id number]#: [id number] [place] [facility] [birth year] AGE: 68 SEX: M ATTEND: Raphael Ly MDADM AUTHOR: Michael Lakhani MDREPT SERVICE DT/TIME: 08/13/23 2240* ALL edits or amendments must be made on the electronic/computer document * SubjectiveChief complaint:liver abscess w/ possible gallbladder fistulastrokeHPI:S: NAEO. IR drain and C tube bilious now, no blood in bag, hgb unchanged, abd soft, no c/o pain, SBFT in place w/ TFs running, +BM. PEGen: NADHEENT: normocephalic, atraumatic, anicteric sclera, SBFT in placechest; No resp distressCV: perfusing wellabd: S, NT, minimally distended, no HMS, no rebound or guarding, no previous scars noted; IR drains x2 w/ bilious output, C tube with bilious outputext; WWPneuro: AMS Objective GeneralVS/I O:Last Documented: Result Date Time Pulse Ox 97 08/12 1958 B/P 121/71 08/12 1958 B/P Mean 87.8 08/12 1958 O2 Delivery Room air 08/12 1958 Temp 99.3 08/12 1958 Pulse 113 08/12 1958 Resp 14 08/12 1958 O2 Flow Rate 2 08/11 1999 FiO2 40 08/07 0752 Vital Signs Date Temp Pulse Resp B/P B/P Mean Pulse Ox FiO2 08/11-08/12 99.3-101.3 88-113 14-38 83-149/41-77 58-95 97-100 24 hour I O ending at 0700: 08/12 0700 08/11 1900 Intake Total 2627.00 870 Output Total 590 775 Balance 2037.00 95 Intake, Free 1751 750 Water Intake, IV 100.00 Intake, Other 185 Intake, Tube 591 120 Feeding Output, 90 25 Drainage Output, Urine 500 750 PATIENT WEIGHT: Weight (lb): 177Weight (oz): 14.61Weight (kg): 80.286 Medications:Active Meds + DC'd Last 24 HrsAcetaminophen (TYLENOL) 650 MG Q6H PRN PRN PO Insulin Human Lispro (HUMALOG) 0 Q6H SUBQ Bisacodyl (DULCOLAX) 10 MG DAILY PRN PRN RECTAL Allopurinol (ZYLOPRIM) 300 MG DAILY FEED-TUBE Aspirin (ASPIRIN) 81 MG DAILY FEED-TUBE Clopidogrel Bisulfate (Plavix) 75 MG DAILY FEED-TUBE Lactulose (LACTULOSE) 20 GM Q12HR FEED-TUBE Tamsulosin HCl (Flomax 0.4 mg) 0.8 MG DAILY FEED-TUBE Atorvastatin Calcium (LIPITOR) 40 MG BEDTIME FEED-TUBE Polyethylene Glycol (MIRALAX) 17 GM Q12H PO Metoprolol Tartrate (LOPRESSOR) 50 MG Q8HR FEED-TUBE Senna/Docusate Sodium (SENOKOT S) 1 TAB Q12H FEED-TUBE Dextrose/Water (DEXTROSE 10% IN WATER) 125 ML ASDIR PRN IV (CKD) Dextrose/Water (DEXTROSE 10% IN WATER) 250 ML ASDIR PRN IV (CKD) Glucagon (GLUCAGON) 1 MG ASDIR PRN IM Insulin Glargine (Semglee) 20 UNIT DAILY SUBQ Metronidazole/Sodium Chloride (metroNIDAZOLE 500MG/NS 100ML) 100 ML Q12H IV Sodium Chloride (SODIUM CHLORIDE 0.9%) 250 ML BOLUS PRN IV Ceftriaxone Sodium (ROCEPHIN) 2,000 MG Q24H IV Sodium Chloride (SODIUM CHLORIDE) 20 MLLatanoprost (XALATAN 2.5 ML OPHTH SOLN) 1 DROP BEDTIME EACH EYE Timolol Maleate (TIMOPTIC 0.5% 5 ML OPHTH SOLN) 1 DROP BID EACH EYE Brimonidine Tartrate (Alphagan-P 0.2% 5 ML OPHTH SOLN) 1 DROP Q8HR EACH EYE Hydralazine HCl (APRESOLINE) 10 MG Q6H PRN PRN IV Ondansetron HCl (ZOFRAN) 4 MG Q4H PRN PRN IV Dietitian nutrition assessmentThe data set between the solid lines has been imported from the dietitian's assessment. BMI Calculated: 27.7Nutrition related diagnosis: OverweightNutrition diagnosis details: BMI 25-29.9Nutrition problem: Inadequate oral intakeNutrition etiology: PT LETHARGIC /SWALLOWING Nutrition signs and symptoms: ENTERAL NUTRITION TO MEET , ENERGY NEEDS Nutrition prescription: RECOMMEND: VITAL AF@ 68 MLS WILL PROVIDE: GMS/1362 MLS FW/DAILY FOLLOW ENVIRONMENTAL PROTECTION ECONOMIST FOR DIET ADVANCEMENT Dietitian name: Rohan Sarah, DIETAssessment completed: 08/09/23 ResultsFindings/Data:Laboratory Tests 08/13/231910:[Embedded Image Not Available]Laboratory Tests 08/12 1707 1231 0539 0009 Chemistry Sodium (134 - 147 mEq/L) 134 Potassium (3.4 - 5.0 mEq/L) 3.2 L Chloride (100 - 108 mEq/L) 102 Carbon Dioxide (21 - 33 mEq/l) 24 Anion Gap (0 - 20) 11 BUN (7 - 25 mg/dL) 14 Creatinine (0.6 - 1.3 mg/dL) 0.8 Glomerular Filtr Rate (70 - 80) 95.2 H Glucose (77 - 141 mg/dL) 232 H POC Glucose (70 - 110 MG/DL) 278 H 303 H 239 H 238 H Calcium (8.0 - 10.5 mg/dL) 7.3 L Phosphorus (2.5 - 4.9 MG/DL) 1.5 L Magnesium (1.6 - 2.6 mg/dL) 1.86 Total Bilirubin (0.0 - 1.0 mg/dL) 0.60 AST (8 - 34 IUnit/L) 69 H ALT (10 - 49 IUnit/L) 34 Total Alk Phosphatase (20 - 125 IUnit/L) 133 H Total Protein (6.4 - 8.2 g/dL) 6.7 Albumin (3.4 - 5.0 g/dL) 1.70 L Laboratory Tests 08/12 1910 Hematology WBC (4.5 - 11.0 x10 3/uL) 16.6 H RBC (4.00 - 5.60 x10 6/uL) 2.84 L Hgb (12.5 - 16.9 g/dL) 8.7 L Hct (37.5 - 50.7 %) 25.1 L MCV (81.0 - 99.0 fL) 88.4 MCH (27.0 - 33.0 pg) 30.6 MCHC (33.0 - 37.0 g/dL) 34.7 RDW (11.5 - 14.5 %) 14.9 H Plt Count (150 - 400 x10 3/uL) 387 MPV (7.0 - 9.0 fL) 10.3 H Neut % (Auto) (56.0 - 77.0 %) 77.4 H Lymph % (Auto) (14.0 - 32.0 %) 14.0 Evans % (Auto) (4.8 - 9.0 %) 7.0 Eos % (Auto) (0.3 - 3.7 %) 0.5 Baso % (Auto) (0.0 - 2.0 %) 0.2 Neut # (Auto) (2.0 - 7.6 x10 3/uL) 12.81 H Lymph # (Auto) (1.0 - 3.8 x10 3/uL) 2.32 Evans # (Auto) (0.1 - 0.8 x10 3/uL) 1.16 H Eos # (Auto) (0.0 - 0.2 x10 3/uL) 0.09 Baso # (Auto) (0.0 - 0.2 x10 3/uL) 0.03 Abs Immat Gran (auto) (0.00 - 0.03 x10 3/uL) 0.15 H Immature Gran % (0.0 - 2.0 %) 0.9 Nucleated RBC % (0 - 0 %) 0.0 Nucleated RBCs # (Man) (0.0 - 0.1 x10 3/uL) 0.00 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 now w/ tachycardia, fevers, and bacteremia, w/ worsening AMS and supsected ischemic stroke-s/p IR drainage of liver abscess and gallbladder, drainage bilious today in IR drain, C tube bilious now; pt on DAPT, cont to monitor-CTA this 08/07 w/o obvious bleed, drains appear roughly in proper position-cont IV abx, ID on board, appreciate recs-endocrine consulted for hyperglycemia, which continues to be elevated, appreciate input-neurology consulted for AMS, stroke workup, r/o other causes, appreciate input-cardiology consulted, appreciate input-given AMS, SBFT placed, recommend ENVIRONMENTAL PROTECTION ECONOMIST eval when more lucid for swallow eval andadvance diet as tolerated when acute issues have resolved-pt will need interval cholecystectomy in the future, currently controlled with cholecystostomy tube and IR drain for liver abscess, given recent stroke, recentPCI on DAPT and bacteremia, not a good operative candidate currentlydispo: cont floor care at 2242 RPT #:[id number] OF REPORTPRProgress [id number]:40:00G.[id number] for patient svsoWAZYYPKMNZVMIE7982-27-81A48:43:04 [facility] 2023-08-13 19:08:00 [id number]+ztj5Mwn+axfrVgkJp 7sN0GGxc1jsw5p4IInu Jo7k9cc9/6bQuLBLI3300-13-63P47:08:00 [facility] ([facility])Infectious Dis. Progress NoteREPORT#:[id number] REPORT STATUS: SignedREPORT INITIALIZATION DATE:08/13/23 TIME: 1907 PATIENT: MISSY CANALES UNIT #: [id number]#: [id number] [address] [birth year] AGE: 68 SEX: M ATTEND: Raphael Ly MDADM AUTHOR: Jv Colvin NPREPT SERVICE DT/TIME: 08/13/231907* ALL edits or amendments must be made on the electronic/computer document * SubjectiveChief complaint:Abd pain, N/V F/U BacteremiaPatient reports:Yes: feeling better. No: complaints, abdominal pain, back pain, bowel movement,burning with urination, cough, diarrhea, fever, headache, nausea, pain, pain controlled, shortness of breath, vomiting, wheezing. Nursing reports:No: fever. Review of SystemsAll systems rev neg: except as marked Objective GeneralVS/I O:Vital Signs Date Temp Pulse Resp B/P B/P Mean Pulse Ox FiO2 08/11-08/12 99.8-101.3 88-112 21-38 83-149/41-77 58-95 97-100 Last Documented: Result Date Time Pulse Ox 100 08/12 1801 B/P 118/57 08/12 1801 B/P Mean 79 08/12 1801 Pulse 102 08/12 1801 Resp 29 08/12 1801 Temp 99.8 08/12 1600 O2 Delivery Room air 08/11 0000 O2 Flow Rate 2 08/10 2000 FiO2 40 08/07 0752 Vital Signs: Date Time Temp Pulse Resp B/P B/P Pulse O2 O2 Flow FiO2 Mean Ox Delivery Rate 08/12 1801 102 29 118/57 79 100 /18 1707 99 32 149/53 76 97 /18 1600 99.8 / 1600 88 26 83/61 67 100 03/18 1531 88 23 84/41 58 100 03/18 1501 92 22 88/42 60 100 03/18 1400 109 28 133/60 87 100 03/18 1300 108 27 116/63 84 100 03/18 1201 112 38 112/66 71 100 /18 1200 100.8 /18 1100 106 31 119/58 84 99 03/18 1043 105 34 123/76 95 100 03/18 0901 103 29 123/53 67 100 03/18 0800 99.8 03/18 0800 91 26 125/77 89 100 03/18 0701 89 29 110/50 72 100 03/18 0600 107 28 144/71 95 100 03/18 0500 100 24 98/66 79 100 03/18 0400 101.3 03/18 0400 97 24 100/49 70 100 03/18 0301 101 21 102/52 72 100 03/18 0200 99 28 118/59 81 100 03/18 0100 104 28 118/55 79 100 03/18 0000 100.9 03/18 0000 97 29 115/55 75 100 08/11 2300 92 23 121/55 79 100 08/11 2201 91 28 133/51 73 98 08/11 2100 108 24 118/54 78 99 08/12 1999 100.8 08/12 1999 101 22 105/50 72 100 24 hour I O ending at 0700: 08/12 0700 08/11 1900 Intake Total 2627.00 870 Output Total 590 775 Balance 2037.00 95 Intake, Free 1751 750 Water Intake, IV 100.00 Intake, Other 185 Intake, Tube 591 120 Feeding Output, 90 25 Drainage Output, Urine 500 750 PATIENT WEIGHT: Weight (lb): 177Weight (oz): 14.61Weight (kg): 80.286 Physical ExamGeneral appearance: alert, awakeWound/incision: Location:Cholecystostomy tube- serousRUQ drain- seropurulentHead/Eyes: atraumatic, normocephalicCardiovascular: tachycardia, no murmurRespiratory: clear to auscultation, aerating well, symmetric expansionAbdomen: non-tender, soft, no distention, percutaneous drains in place in RUQExtremities: no cyanosis, no edemaNeuro/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: alertSkin: dry, no rash ResultsFindings/Data:Laboratory Tests 08/12 08/12 08/12 08/12 1707 1231 0539 0009 Chemistry POC Glucose (70 - 110 MG/DL) 278 H 303 H 239 H 238 H Results: labs reviewed, vital signs reviewed, vital signs stable, current med profile rev'd Diagnosis, Assessment PlanFree Text A P:Fever--Recurrent after improvementSepsis, resolved--Fever, tachycardia, leukocytosis--Source: BacteremiaBacteremia--Citrobacter--Source: BiliaryLiver abscess--MRCP showed 4.6 x 3.6 x 3.0 thick walled cystic lesion/fluid collection liver abutting GB fossa--S/P IR drain 08/05, cx CitrobacterAcute cholecystitis--S/P IR placed cholecystotomy tube ., cx CitrobacterAcute stroke--MRI (+) subacute Left guo radiata--CTA neck (+) high grade cedesajaITVWR9CCZBUO On Rocephin/Flagyl, abx started 08/02 (Day 7)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, with f/u CT to ensure resolution of abcess prior to stopping abx Seen and examined with Dr BrothersDM was done entirely by Dr Hobson discussed with: patient, spouse/partner, nurse at 1913 at 2059 RPT #:[id number] OF REPORTPRProgress gqap9564-62-56K48:08:00G.[id number] for patient qhujWJVCIKZVBKRQQO5760-39-74C22:14:02 [facility] 2023-08-13 17:33:00 [id number]xb j/EUg0DigSsApPwsfHV lNnNDmQoAvIFpCCyD7697-30-46H10:33:00 [facility])Cardiology Progress NoteREPORT#:[id number] REPORT STATUS: SignedREPORT INITIALIZATION DATE:08/13/23 TIME: 1732 PATIENT: MISSY CANALES UNIT #: [id number]#: [id number] [address] [birth year] AGE: 68 SEX: M ATTEND: Rapahel Ly AUTHOR: Esther BucknerCNPREPT SERVICE DT/TIME: 08/13/231732* ALL edits or amendments must be made on the electronic/computer document * SubjectivePatient reports:No: complaints. Objective GeneralVS/I O:24 hour I O ending at 0700: 08/12 0700 08/11 1900 Intake Total 2627.00 870 Output Total 590 775 Balance 2037.00 95 Intake, Free 1751 750 Water Intake, IV 100.00 Intake, Other 185 Intake, Tube 591 120 Feeding Output, 90 25 Drainage Output, Urine 500 750Vital Signs Date Temp Pulse Resp B/P B/P Mean Pulse Ox FiO2 08/11-08/12 37.7-38.5 89-115 21-38 96-144/49-77 67-95 95-100 PATIENT WEIGHT: Weight (lb): 177Weight (oz): 14.61Weight (kg): 80.286 Medications:Active Meds + DC'd Last 24 HrsAcetaminophen (TYLENOL) 650 MG Q6H PRN PRN PO Insulin Human Lispro (HUMALOG) 0 Q6H SUBQ Bisacodyl (DULCOLAX) 10 MG DAILY PRN PRN RECTAL Allopurinol (ZYLOPRIM) 300 MG DAILY FEED-TUBE Aspirin (ASPIRIN) 81 MG DAILY FEED-TUBE Clopidogrel Bisulfate (Plavix) 75 MG DAILY FEED-TUBE Lactulose (LACTULOSE) 20 GM Q12HR FEED-TUBE Tamsulosin HCl (Flomax 0.4 mg) 0.8 MG DAILY FEED-TUBE Atorvastatin Calcium (LIPITOR) 40 MG BEDTIME FEED-TUBE Polyethylene Glycol (MIRALAX) 17 GM Q12H PO Metoprolol Tartrate (LOPRESSOR) 50 MG Q8HR FEED-TUBE Senna/Docusate Sodium (SENOKOT S) 1 TAB Q12H FEED-TUBE Dextrose/Water (DEXTROSE 10% IN WATER) 125 ML ASDIR PRN IV (CKD) Dextrose/Water (DEXTROSE 10% IN WATER) 250 ML ASDIR PRN IV (CKD) Glucagon (GLUCAGON) 1 MG ASDIR PRN IM Insulin Glargine (Semglee) 20 UNIT DAILY SUBQ Metronidazole/Sodium Chloride (metroNIDAZOLE 500MG/NS 100ML) 100 ML Q12H IV Sodium Chloride (SODIUM CHLORIDE 0.9%) 250 ML BOLUS PRN IV Ceftriaxone Sodium (ROCEPHIN) 2,000 MG Q24H IV Sodium Chloride (SODIUM CHLORIDE) 20 MLLatanoprost (XALATAN 2.5 ML OPHTH SOLN) 1 DROP BEDTIME EACH EYE Timolol Maleate (TIMOPTIC 0.5% 5 ML OPHTH SOLN) 1 DROP BID EACH EYE Brimonidine Tartrate (Alphagan-P 0.2% 5 ML OPHTH SOLN) 1 DROP Q8HR EACH EYE Hydralazine HCl (APRESOLINE) 10 MG Q6H PRN PRN IV Ondansetron HCl (ZOFRAN) 4 MG Q4H PRN PRN IV Physical ExamGeneral appearance: chronically ill appearing, alert, awakeNeck: non-tender, no JVDCardiovascular: CV assessment: regular rate and rhythmRespiratory: decreased breath sounds, no distressAbdomen: cholecystostomy tube in placeGenitourinary: urinary catheter, urineUpper extremity: UE assessment: normal capillary refill, normal temperatureLower extremity: LE assessment: no edemaMusculoskeletal: decreased ROMNeuro/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: right hemiparesisSkin: dryPsychiatry: unable to evaluate ResultsFindings/Data:Laboratory Tests 08/12 08/12 08/12 08/12 1707 1231 0539 0009 Chemistry POC Glucose (70 - 110 MG/DL) 278 H 303 H 239 H 238 H Results: no new labs, vital signs reviewed, rhythm personally rev'dTelemetry Interpretation:Sinus rhythm Diagnosis, Assessment PlanPlan discussed with: patient, collaborating MD, nurse Free Text DxA P NotesFree Text DxA P Notes:1. Coronary artery disease s/p recent PCI/TERESA to diagonal artery* Troponin trend is flat* Hx of CABG (2000)* s/p stent placement to diagonal artery on 07/02/23. Still need staged PCI to RCA. * Continue Plavix and aspirin - do not stop Plavix d/t risk of stent thrombosis* Echocardiogram preserved LVEF. 2. Elevated LFTs/acute cholecystitis/liver abscess* s/p cholecystostomy tube placement. * GI on board* ID on board managing antibiotic 3. AMS: MRI brain showed small subacute ischemia in the L coronary radiata * Neurology following 4. Tachycardia with frequent PVCs * HR better, less PVCs* No evidence of atrial fibrillation on telemetry. * Tachycardia likely secondary to SIRS. * Continue metoprolol 50 mg every 8 hours. * taken off losartan to make room for beta-yoav. Medical decision making by Dr. Daniel. at 1739 at 0884 [facility] #:[id number] OF REPORTPRProgress [id number]:33:00G.[id number] for patient lfjiDAKDCLJXJWKOPZ0115-52-38Y07:35:16 [facility] 2023-08-13 17:26:00 [id number]sKxD EXpxQpo4EXFGShazav2 DiqVmvOV/dVElli/oswR8081-79-00T75:26:00 [facility] ([facility])Gastroenterology Progress NoteREPORT#:[id number] REPORT STATUS: SignedREPORT INITIALIZATION DATE:08/13/23 TIME: 1725 PATIENT: MISSY CANALES UNIT #: [id number]#: [id number] [address] [birth year] AGE: 68 SEX: M ATTEND: Raphael Ly MDADM AUTHOR: Lisa Cancino MDREPT SERVICE DT/TIME: 08/13/231725* ALL edits or amendments must be made on the electronic/computer document * SubjectiveChief complaint:Elevated LFtsHPI:68 year old man s/p cardiac stents 2 weeks ago who was sent to the hospital withelevated LFTs and possible acute cholecystitis. Pt had a stenet recently placed and was started on DAPT. Pt had labs showing elevated LFTs and was sent here forevaluation. Labs showed leukocytosis 15k. Elevated Tbili 3.7. Dbili 2.8. AST 79,ALT 105 and ALP 225. RUQ U/S showed possible cholecystitis and normal CBD of 4 mm in diatmeter. Pt denies pain. No dark urine or peyton-color stool 08/03; patient feels well. MRCP reviewed. No choledocholithiasis. Fluid collection at the liver could be related secondary to gallbladder perforation. LFTs and white count are down. 08/04: Plan for IR for cholecystostomy tube placement. LFts stable. WBC elevated.Was confused this am but improving. NO pain. No fevers. Added flagyl to his Abx regimen 08/05: NO new complaints. IR for abscess drain and cholecystostomy tube 08/06: Transferred overnight to ICU due to AMS. S/P IR with cholecystostomy tube and abscess drain 08/07: severely constipated. NGT in with feeds. drains in. More awake today and oriented. right sided weakness likely acute stroke. MRI brain reviewed- small stroke. KUB reviewed 08/08: Doing better according to . Sheldon removed. Still on feeds 08/09: Feeds at 20 ml/hr. Still no BM 08/10-Had BM last night. Denies n/v/abd pain 08/11-Patient dislodged DH. DH was replaced. +BM today 08/12: has been having BM during the weekend Objective Physical ExamHEENT: EOMICardiovascular: normal heart soundsRespiratory: clear to auscultationAbdomen: non-tenderExtremities: no edemaSkin: dry, normal temperature Diagnosis, Assessment PlanProblem List/A P: 1. Elevated LFTs Free Text A P:cholestatic pattern. CBD normal on RuQ U/S MRCP showed no evidence of choledocholithiasis.Large fluid collection within the liver could be secondary to gallbladder perforation.Recommend surgical evaluation again.Continue with antibiotics. Add flagyl s/p cholecystostomy tube and drainage of cystic fluid collection. Awaiting culture Surgery consultation reviewed. Agree with plan Acute strokeconstipation: bowel regimen. Will start suppositories Will follow at 1729 RPT #:[id number] OF REPORTPRProgress [id number] for patient [id number]:58 [facility] 2023-08-13 12:55:00 [id number] Qvh8XyazARqnxlqZzUd XuylLqUbUke2bvMT12851-48-10G45:55:00 [facility] ([facility])Endocrinology Progress NoteREPORT#:[id number] REPORT STATUS: SignedREPORT INITIALIZATION DATE:08/13/23 TIME: 5 PATIENT: MISSY CANALES UNIT #: [id number]#: [id number] [address] [birth year] AGE: 68 SEX: M ATTEND: Raphael Ly [facility] AUTHOR: Marlen Stevens DRY BOX OPERATOR-CREPT SERVICE DT/TIME: 08/13/23 1255* ALL edits or amendments must be made on the electronic/computer document * SubjectiveChief complaint:f/u DM IITFglucose slightly elevated, over 200 Objective GeneralVS:Last Documented: Result Date Time Pulse Ox 100 08/12 900 B/P 123/53 08/12 900 B/P Mean 67 08/12 09 Pulse 103 08/12 0901 Resp 29 08/12 09 Temp 99.8 08/12 0800 O2 Delivery Room air 08/11 0000 O2 Flow Rate 2 08/10 2000 FiO2 40 08/07 0752 PATIENT WEIGHT: Weight (lb): 177Weight (oz): 14.61Weight (kg): 80.286 Medications:Active Meds + DC'd Last 24 HrsAcetaminophen (TYLENOL) 650 MG Q6H PRN PRN PO Insulin Human Lispro (HUMALOG) 0 Q6H SUBQ Bisacodyl (DULCOLAX) 10 MG DAILY PRN PRN RECTAL Allopurinol (ZYLOPRIM) 300 MG DAILY FEED-TUBE Aspirin (ASPIRIN) 81 MG DAILY FEED-TUBE Clopidogrel Bisulfate (Plavix) 75 MG DAILY FEED-TUBE Lactulose (LACTULOSE) 20 GM Q12HR FEED-TUBE Tamsulosin HCl (Flomax 0.4 mg) 0.8 MG DAILY FEED-TUBE Atorvastatin Calcium (LIPITOR) 40 MG BEDTIME FEED-TUBE Polyethylene Glycol (MIRALAX) 17 GM Q12H PO Metoprolol Tartrate (LOPRESSOR) 50 MG Q8HR FEED-TUBE Senna/Docusate Sodium (SENOKOT S) 1 TAB Q12H FEED-TUBE Dextrose/Water (DEXTROSE 10% IN WATER) 125 ML ASDIR PRN IV (CKD) Dextrose/Water (DEXTROSE 10% IN WATER) 250 ML ASDIR PRN IV (CKD) Glucagon (GLUCAGON) 1 MG ASDIR PRN IM Insulin Glargine (Semglee) 20 UNIT DAILY SUBQ Metronidazole/Sodium Chloride (metroNIDAZOLE 500MG/NS 100ML) 100 ML Q12H IV Sodium Chloride (SODIUM CHLORIDE 0.9%) 250 ML BOLUS PRN IV Ceftriaxone Sodium (ROCEPHIN) 2,000 MG Q24H IV Sodium Chloride (SODIUM CHLORIDE) 20 MLLatanoprost (XALATAN 2.5 ML OPHTH SOLN) 1 DROP BEDTIME EACH EYE Timolol Maleate (TIMOPTIC 0.5% 5 ML OPHTH SOLN) 1 DROP BID EACH EYE Brimonidine Tartrate (Alphagan-P 0.2% 5 ML OPHTH SOLN) 1 DROP Q8HR EACH EYE Hydralazine HCl (APRESOLINE) 10 MG Q6H PRN PRN IV Ondansetron HCl (ZOFRAN) 4 MG Q4H PRN PRN IV Physical ExamGeneral appearance: alert, awakeHEENT: atraumatic, clear cornea, normocephalicNeck: suppleCardiovascular: regular rate rhythmRespiratory: on oxygenAbdomen: softGenitourinary: not indicatedExtremities: warmNeuro/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: alertSkin: warmResults: labs reviewed Diagnosis, Assessment PlanFree Text A P:1.DM AODgjX7r 8.2adjust Lantus continue SSI monitor glucose NPO DC Plan: Lantus, Humalog, and Farxiga; follow at next available appointment. 2.Abnormal thyroid functions 08/06 TSH 0.07 FT4 1 recheck in a couple of days 3.Suspected ischemic strokeMRI brain without contrastEchocardiogramTelemetryneurology following 4.Coronary artery diseasePCI on July 03, 2023Echocardiogram preserved LVEFdual antiplateletscardiology following 5. Elevated LFTsGI following 6.MRCP with complex cystic fluid collectionpost drainage surgery following at 1256 at 1256 RPT #:[id number] OF REPORTPRProgress oudz1822-92-09S82:55:00G.[id number] for patient ubvxCKXBOKEZFOGXIO6866-09-38C76:56:30 [facility] 2023-08-13 08:11:00 [id number]+oeBPJg2OGM/OJU TM5AUrDjqh0tMVvu5bO Nh5dUhmh4c4FYppT02861-06-10S38:11:00 [facility] ([facility])Hospitalist Progress NoteREPORT#:[id number] REPORT STATUS: SignedREPORT INITIALIZATION DATE:08/13/23 TIME: 810 PATIENT: MISSY CANALES UNIT #: [id number]#: [id number] [address] [birth year] AGE: 68 SEX: M ATTEND: Raphael Ly MDADM AUTHOR: Nellie Palmer MDREPT SERVICE DT/TIME: 08/13/23 0811* ALL edits or amendments must be made on the electronic/computer document * SubjectiveChief complaint:He is awake but not oriented to time and placed. has Dobhoff tube in placed. HR is high. Less Abd pain, N/v. Free Text Subj NotesFree Text Subj Notes:Patient is awake and alert, Dobbhoff tube is in place. Patient denies any chestpain denies any shortness of breath denies any chest pain. Review of SystemsAll systems rev neg: except as noted Objective GeneralVS/I O:Vital Signs: Date Time Temp Pulse Resp B/P B/P Pulse O2 O2 Flow FiO2 Mean Ox Delivery Rate 08/12 0400 101.3 08/12 0000 100.9 08/12 0000 97 29 115/55 75 100 08/11 2300 92 23 121/55 79 100 08/11 2201 91 28 133/51 73 98 08/11 2100 108 24 118/54 78 99 08/12 1999 100.8 08/11 2000 101 22 105/50 72 100 08/11 1901 109 26 96/49 70 100 08/11 1857 109 23 100 08/11 1830 109 24 99 08/11 1800 115 27 131/60 87 95 08/11 1730 115 28 99 08/11 1700 107 25 110/53 77 99 08/11 1630 113 23 85 08/11 1617 112 29 100 08/11 1600 99.6 08/11 1600 112 26 109/52 75 100 08/11 1530 114 26 95 08/11 1500 104 27 112/60 77 99 08/11 1430 101 26 99 08/11 1401 97 20 121/55 79 98 08/11 1400 96 25 97 08/11 1331 109 23 124/59 85 100 08/11 1330 111 22 98 08/11 1301 124 28 126/59 85 97 08/11 1300 123 22 98 08/11 1245 123 24 96 08/11 1230 116 24 99 08/11 1201 114 28 153/60 87 98 08/11 1200 99.0 08/11 1200 116 26 98 08/11 1130 122 25 100 08/11 1100 118 24 134/81 101 99 08/11 1030 118 21 100 08/11 1000 120 27 131/61 86 99 08/11 0930 117 26 100 08/11 0900 117 33 126/56 80 100 08/11 0830 117 22 100 24 hour I O ending at 0700: 08/12 0700 08/11 1900 Intake Total 870 Output Total 775 Balance 95 Intake, Free 750 Water Intake, Tube 120 Feeding Output, 25 Drainage Output, Urine 750 PATIENT WEIGHT: Weight (lb): 177Weight (oz): 14.61Weight (kg): 80.286 Medications:Active Meds + DC'd Last 24 HrsAcetaminophen (TYLENOL) 650 MG Q6H PRN PRN PO Insulin Human Lispro (HUMALOG) 0 Q6H SUBQ Bisacodyl (DULCOLAX) 10 MG DAILY PRN PRN RECTAL Allopurinol (ZYLOPRIM) 300 MG DAILY FEED-TUBE Aspirin (ASPIRIN) 81 MG DAILY FEED-TUBE Clopidogrel Bisulfate (Plavix) 75 MG DAILY FEED-TUBE Lactulose (LACTULOSE) 20 GM Q12HR FEED-TUBE Tamsulosin HCl (Flomax 0.4 mg) 0.8 MG DAILY FEED-TUBE Atorvastatin Calcium (LIPITOR) 40 MG BEDTIME FEED-TUBE Polyethylene Glycol (MIRALAX) 17 GM Q12H PO Metoprolol Tartrate (LOPRESSOR) 50 MG Q8HR FEED-TUBE Senna/Docusate Sodium (SENOKOT S) 1 TAB Q12H FEED-TUBE Dextrose/Water (DEXTROSE 10% IN WATER) 125 ML ASDIR PRN IV (CKD) Dextrose/Water (DEXTROSE 10% IN WATER) 250 ML ASDIR PRN IV (CKD) Glucagon (GLUCAGON) 1 MG ASDIR PRN IM Insulin Glargine (Semglee) 20 UNIT DAILY SUBQ Metronidazole/Sodium Chloride (metroNIDAZOLE 500MG/NS 100ML) 100 ML Q12H IV Sodium Chloride (SODIUM CHLORIDE 0.9%) 250 ML BOLUS PRN IV Ceftriaxone Sodium (ROCEPHIN) 2,000 MG Q24H IV Sodium Chloride (SODIUM CHLORIDE) 20 MLLatanoprost (XALATAN 2.5 ML OPHTH SOLN) 1 DROP BEDTIME EACH EYE Timolol Maleate (TIMOPTIC 0.5% 5 ML OPHTH SOLN) 1 DROP BID EACH EYE Brimonidine Tartrate (Alphagan-P 0.2% 5 ML OPHTH SOLN) 1 DROP Q8HR EACH EYE Hydralazine HCl (APRESOLINE) 10 MG Q6H PRN PRN IV Ondansetron HCl (ZOFRAN) 4 MG Q4H PRN PRN IV Dietitian nutrition assessmentThe data set between the solid lines has been imported from the dietitian's assessment. BMI Calculated: 27.7Nutrition related diagnosis: OverweightNutrition diagnosis details: BMI 25-29.9Nutrition problem: Inadequate oral intakeNutrition etiology: PT LETHARGIC /SWALLOWING Nutrition signs and symptoms: ENTERAL NUTRITION TO MEET , ENERGY NEEDS Nutrition prescription: RECOMMEND: VITAL AF@ 68 MLS WILL PROVIDE: 2016/126 GMS/1362 MLS FW/DAILY FOLLOW ENVIRONMENTAL PROTECTION ECONOMIST FOR DIET ADVANCEMENT Dietitian name: Rohan Sarah, DIETAssessment completed: 08/09/23 Physical ExamGeneral appearance: alert, awakeHead/Eyes: atraumatic, normocephalic, PERRLAENT: moist mucosal membranes, normal dentitionCardiovascular: normal heart sounds, regular rate rhythmRespiratory: aerating well, symmetric expansion, no distressAbdomen: non-tender, normal bowel soundsGenitourinary: no bladder distention, no flank painExtremities: no clubbing, no cyanosisMusculoskeletal: no muscle spasmNeuro/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: abnormal speech, disoriented ResultsFindings/Data:Laboratory Tests 08/12 08/12 08/11 0539 0009 1417 Chemistry Sodium (134 - 147 mEq/L) 138 Potassium (3.4 - 5.0 mEq/L) 3.5 Chloride (100 - 108 mEq/L) 109 H Carbon Dioxide (21 - 33 mEq/l) 23 Anion Gap (0 - 20) 10 BUN (7 - 25 mg/dL) 14 Creatinine (0.6 - 1.3 mg/dL) 0.8 Glomerular Filtr Rate (70 - 80) 95.2 H Glucose (77 - 141 mg/dL) 201 H POC Glucose (70 - 110 MG/DL) 239 H 238 H Calcium (8.0 - 10.5 mg/dL) 7.6 L Total Bilirubin (0.0 - 1.0 mg/dL) 1.10 H AST (8 - 34 IUnit/L) 57 H ALT (10 - 49 IUnit/L) 38 Total Alk Phosphatase (20 - 125 IUnit/L) 122 Total Protein (6.4 - 8.2 g/dL) 6.7 Albumin (3.4 - 5.0 g/dL) 1.90 L Laboratory Tests 08/11 1417 Hematology WBC (4.5 - 11.0 x10 3/uL) 15.6 H RBC (4.00 - 5.60 x10 6/uL) 2.89 L Hgb (12.5 - 16.9 g/dL) 8.8 L Hct (37.5 - 50.7 %) 25.5 L MCV (81.0 - 99.0 fL) 88.2 MCH (27.0 - 33.0 pg) 30.4 MCHC (33.0 - 37.0 g/dL) 34.5 RDW (11.5 - 14.5 %) 14.4 Plt Count (150 - 400 x10 3/uL) 377 MPV (7.0 - 9.0 fL) 10.7 H Neut % (Auto) (56.0 - 77.0 %) 78.7 H Lymph % (Auto) (14.0 - 32.0 %) 11.8 L Evans % (Auto) (4.8 - 9.0 %) 7.4 Eos % (Auto) (0.3 - 3.7 %) 0.6 Baso % (Auto) (0.0 - 2.0 %) 0.3 Neut # (Auto) (2.0 - 7.6 x10 3/uL) 12.30 H Lymph # (Auto) (1.0 - 3.8 x10 3/uL) 1.85 Evans # (Auto) (0.1 - 0.8 x10 3/uL) 1.15 H Eos # (Auto) (0.0 - 0.2 x10 3/uL) 0.09 Baso # (Auto) (0.0 - 0.2 x10 3/uL) 0.04 Abs Immat Gran (auto) (0.00 - 0.03 x10 3/uL) 0.19 H Immature Gran % (0.0 - 2.0 %) 1.2 Nucleated RBC % (0 - 0 %) 0.1 H Nucleated RBCs # (Man) (0.0 - 0.1 x10 3/uL) 0.02 Radiology data:Recent Impressions:RADIOLOGY - XR ABDOMEN 1V (KUB) 08/11 1146 Report Impression - Status: SIGNED Entered: 08/12/2023 1210 IMPRESSION:1. As above.Impression By: Alex Delgado M.D. Free Text Obj NotesFree Text Obj Notes:ResultsFindings/Data:Laboratory Tests 08/08 08/08 08/07 08/07 08/07 0507 0348 2308 1433 1139 Chemistry Sodium (134 - 147 mEq/L) 154 H 155 H Potassium (3.4 - 5.0 mEq/L) 3.7 3.9 Chloride (100 - 108 mEq/L) 123 H 124 H Carbon Dioxide (21 - 33 mEq/l) 20 L 22 Anion Gap (0 - 20) 14 13 BUN (7 - 25 mg/dL) 20 26 H Creatinine (0.6 - 1.3 mg/dL) 1.0 0.7 Glomerular Filtr Rate (70 - 80) 81.0 H 99.1 H Glucose (77 - 141 mg/dL) 146 H 184 H POC Glucose (70 - 110 MG/DL) 119 H 135 H 162 H Calcium (8.0 - 10.5 mg/dL) 8.4 8.1 Laboratory Tests 08/08 08/07 08/07 [id number] 1433 Hematology Hgb (12.5 - 16.9 g/dL) 9.6 L 9.3 L 9.5 L Hct (37.5 - 50.7 %) 28.7 L 27.9 L 28.3 L Radiology data:Recent Impressions:CAT SCAN - CT ABD PELVIS W WO CONT 08/07 1736 Report Impression - Status: SIGNED Entered: 08/08/20231736 IMPRESSION:No evidence of acute hemorrhage within the the liver and thegallbladder.Hyperdense contents within the gallbladder and 2nd segment of theduodenum may represent contrast and/or blood products.Large amount of stool within the rectum. LOCATION: [id number] By: Anthony Degroot M.D. Treatment Prophylaxis Treatment ProphylaxisOxygen: room air Diagnosis, Assessment Plan Free Text DxA P NotesFree text DxA P notes:Assessment - Acute Cholangitis/Cholelithiasis with distended gallbladder status post IR drainage of gallbladder/liver abscess- Acute stroke/Small focus of subacute ischemia in the left guo radiata.- Intraheptic abscess with Fistula to gallbaldder.- s/p IR drainage of liver abscess and gallbladder, drainage bilious today in IR drain, C tube bilious/bloody.- Superficial venous thrombosis of the right the left basilic vein.- Large amount of stool within the rectum.- Elevated LFTs and Bilirubin due to Possible Acute Chloangitis.- Elevated Troponin could be demand Ischemia.- Abd pain and N/V/Confusion- ARELY.- Hyperglycemia.- Sepsis; tachycardia, Bcx Gram neg rods- HX of HTN/DM type II/HLD and CAD s/p stent. Plan:08/12-Telemetry, strict vital monitor, strict LAURYN's, monitor, replace electrolytes-s/p IR drainage of liver abscess and gallbladder, drainage bilious today in IR drain, C tube bilious now; surgery following will eventually need cholecystectomy-CTA this 08/07 w/o obvious bleed, drains appear roughly in proper position-cont IV abx, ID on board-Dobbhoff tube in place, speech eval pending-Continue aspirin and Plavix-PT OT-Hyperglycemia noted, insulin sliding scale, adjust Lantus, endocrine following-Transfer to [facility] floor 08/12/23: ICU.He pulled out Dobhoff twice.Will restrain.Speech for swallow eval.He needs interval cholecystectomy in the future, currently controlled with cholecystostomy tube and IR drain for liver abscess, given recent stroke, recentPCI on DAPT and bacteremia, not a good operative candidate currently.Monitor Neuro status.He is on aspirin, Plavix.Aggressive PT and OT.Continue IV ABX for Bacteremia.Pain meds.Antiemetics.Glycemic control, Accu check AC HS, ISS, diabetic diet.GI and surgery following for elevated LFts and Liver abscess.Monitor. 08/11/23: ICU.MRI brain showed Acute stroke/Small focus of subacute ischemia in the left guo radiata.He is on aspirin, Plavix.Aggressive PT and OT.Continue IV ABX for Bacteremia.Pain meds.Antiemetics.Glycemic control, Accu check AC HS, ISS, diabetic diet.Monitor. 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, strict vital monitor, strict I O's, monitor, replace electrolytes-Status post cholecystostomy tube placement, IV ceftriaxone/IV Flagyl, GI consulted-Insulin sliding scale-s/p IR drainage of liver abscess and gallbladder, drainage bilious today in IR drain, C tube bilious/bloody, hgb 8.8 (9.5), stable, pt on DAPT, cont to monitor-CTA this 08/07 w/o obvious bleed, drains appear roughly in proper position-cont IV abx, ID on board-Advance diet as per surgery-Continue aspirin, Plavix-Cholecystectomy eventually needed however recent stroke, recent PCI/bacteremia,high risk for procedure-Stroke, neurology following Quality: Gen Med Crit Care Advanced Care Plan 65 or OlderDiscussed with: patient, surrogate decis. maker at 0513 RPT #:[id number] OF REPORTPRProgress frza0818-51-58A45:11:00G.[id number] for patient qclhFERPRQTAFCGDRE0791-92-82O63:13:32 [facility] 2023-08-12 13:43:00 [id number]+CDi7cFosANhhcl+x+2iZ g74tvEANlxkex1M1BlC Kby5Dzi5+ZPNugyWE2314-68-67S36:43:00 [facility] ([facility] Progress NoteREPORT#:[id number] REPORT STATUS: SignedREPORT INITIALIZATION DATE:08/12/23 TIME: 134 PATIENT: MISSY CANALES UNIT #: [id number]#: [id number] [address] [birth year] AGE: 68 SEX: M ATTEND: Raphael Ly MDADM AUTHOR: Keyana Valero NPREPT SERVICE DT/TIME: 08/12/23 1343* ALL edits or amendments must be made on the electronic/computer document * SubjectiveChief complaint:Elevated LFtsHPI:68 year old man s/p cardiac stents 2 weeks ago who was sent to the hospital withelevated LFTs and possible acute cholecystitis. Pt had a stenet recently placed and was started on DAPT. Pt had labs showing elevated LFTs and was sent here forevaluation. Labs showed leukocytosis 15k. Elevated Tbili 3.7. Dbili 2.8. AST 79,ALT 105 and ALP 225. RUQ U/S showed possible cholecystitis and normal CBD of 4 mm in diatmeter. Pt denies pain. No dark urine or peyton-color stool 08/03; patient feels well. MRCP reviewed. No choledocholithiasis. Fluid collection at the liver could be related secondary to gallbladder perforation. LFTs and white count are down. 08/04: Plan for IR for cholecystostomy tube placement. LFts stable. WBC elevated.Was confused this am but improving. NO pain. No fevers. Added flagyl to his Abx regimen 08/05: NO new complaints. IR for abscess drain and cholecystostomy tube 08/06: Transferred overnight to ICU due to AMS. S/P IR with cholecystostomy tube and abscess drain 08/07: severely constipated. NGT in with feeds. drains in. More awake today and oriented. right sided weakness likely acute stroke. MRI brain reviewed- small stroke. KUB reviewed 3/14: Doing better according to . Sheldon removed. Still on feeds 08/09: Feeds at 20 ml/hr. Still no BM 08/10-Had BM last night. Denies n/v/abd pain 08/11-Patient dislodged DH. DH was replaced. +BM today Review of SystemsAll systems rev neg: except as marked Objective GeneralVS/I O:Last Documented: Result Date Time Pulse Ox 96 08/11 1245 Pulse 123 08/11 1245 Resp 24 08/11 1245 B/P 153/60 08/11 1201 B/P Mean 87 08/11 1201 Temp 37.2 08/11 1200 O2 Delivery Room air 08/11 0000 O2 Flow Rate 2 08/10 2000 FiO2 40 08/07 0752 24 hour I O ending at 0700: 08/11 0700 08/10 1900 Intake Total Output Total 800 Balance -800 Number 1 Bowel Movements Number 1 Incontinent Voids Output, Urine 800 PATIENT WEIGHT: Weight (lb): 177Weight (oz): 14.61Weight (kg): 80.286 Medications:Active Meds + DC'd Last 24 HrsInsulin Human Lispro (HUMALOG) 0 Q6H SUBQ Bisacodyl (DULCOLAX) 10 MG DAILY PRN PRN RECTAL Allopurinol (ZYLOPRIM) 300 MG DAILY FEED-TUBE Aspirin (ASPIRIN) 81 MG DAILY FEED-TUBE Clopidogrel Bisulfate (Plavix) 75 MG DAILY FEED-TUBE Lactulose (LACTULOSE) 20 GM Q12HR FEED-TUBE Tamsulosin HCl (Flomax 0.4 mg) 0.8 MG DAILY FEED-TUBE Atorvastatin Calcium (LIPITOR) 40 MG BEDTIME FEED-TUBE Polyethylene Glycol (MIRALAX) 17 GM Q12H PO Metoprolol Tartrate (LOPRESSOR) 50 MG Q8HR FEED-TUBE Senna/Docusate Sodium (SENOKOT S) 1 TAB Q12H FEED-TUBE Dextrose/Water (DEXTROSE 10% IN WATER) 125 ML ASDIR PRN IV (CKD) Dextrose/Water (DEXTROSE 10% IN WATER) 250 ML ASDIR PRN IV (CKD) Glucagon (GLUCAGON) 1 MG ASDIR PRN IM Insulin Glargine (Semglee) 20 UNIT DAILY SUBQ Mupirocin (BACTROBAN 2% 22 GM OINTMENT) 1 APPLIC BID NASAL (DC) Metronidazole/Sodium Chloride (metroNIDAZOLE 500MG/NS 100ML) 100 ML Q12H IV Sodium Chloride (SODIUM CHLORIDE 0.9%) 250 ML BOLUS PRN IV Ceftriaxone Sodium (ROCEPHIN) 2,000 MG Q24H IV Sodium Chloride (SODIUM CHLORIDE) 20 MLLatanoprost (XALATAN 2.5 ML OPHTH SOLN) 1 DROP BEDTIME EACH EYE Timolol Maleate (TIMOPTIC 0.5% 5 ML OPHTH SOLN) 1 DROP BID EACH EYE Brimonidine Tartrate (Alphagan-P 0.2% 5 ML OPHTH SOLN) 1 DROP Q8HR EACH EYE Hydralazine HCl (APRESOLINE) 10 MG Q6H PRN PRN IV Ondansetron HCl (ZOFRAN) 4 MG Q4H PRN PRN IV Physical ExamGeneral appearance: alert, awakeHEENT: EOMICardiovascular: normal heart soundsRespiratory: clear to auscultationAbdomen: non-tenderExtremities: no edemaSkin: dry, normal temperature ResultsFindings/Data:Laboratory Tests 08/11 08/11 08/10 0610 0012 1902 Chemistry POC Glucose (70 - 110 MG/DL) 177 H 191 H 144 H Radiology Data:Recent Impressions:RADIOLOGY - XR ABDOMEN 1V (KUB) 08/10 1628 Report Impression - Status: SIGNED Entered: 08/11/2023 1701 IMPRESSION:Feeding tube appears to terminate appropriately towards the 1stportion of duodenum.Impression By: [email or web address] - Dallas Messer M.D.RADIOLOGY - XR ABDOMEN 1V (KU) 08/11 0524 Report Impression - Status: SIGNED Entered: 08/12/2023 0720 Impression: 1. Dobbhoff tube tip at the level of the duodenal bulb.2. Moderate colonic ileus, improved. Impression By: [email or web address] - Georgia Santos M.D.RADIOLOGY - XR ABDOMEN 1V (KU) 08/11 1146 Report Impression - Status: SIGNED Entered: 08/12/2023 1210 IMPRESSION:1. As above.Impression By: [email or web address] - Bunny Delgado M.D. Diagnosis, Assessment PlanFree Text A P:cholestatic pattern. CBD normal on RuQ U/S MRCP showed no evidence of choledocholithiasis.Large fluid collection within the liver could be secondary to gallbladder perforation.Recommend surgical evaluation again.Continue with antibiotics. Add flagyl s/p cholecystostomy tube and drainage of cystic fluid collection. Awaiting culture Surgery consultation reviewed. Agree with plan Acute strokeconstipation: bowel regimen. Will start suppositories Will follow at 1344 at 1238 RPT #:[id number] OF REPORTPRProgress [id number]:43:00G.[id number] for patient cysqPNGSRAIAGRYXDV7895-28-45F07:45:09 [facility] 2023-08-12 08:19:00 [id number]+5M1zkuybO +bbv7jNSa+R3Tx0sM1h frTA2xVs4521yuoij1486-17-68E48:19:00 [facility] ([facility])Neurology Progress NoteREPORT#:[id number] REPORT STATUS: SignedREPORT INITIALIZATION DATE:08/12/23 TIME: 818 PATIENT: MISSY CANALES UNIT #: [id number]#: [id number] [address] [birth year] AGE: 68 SEX: M ATTEND: Raphael Ly MDADM AUTHOR: Skyler Monae MDREPT SERVICE DT/TIME: 08/12/23 0819* ALL edits or amendments must be made on the electronic/computer document * SubjectiveChief complaint:AMSHPI:NICOLE Review of Systems Free Text ROS NotesFree Text ROS Notes:No change in R hemiplegia. ROS same. Objective GeneralVS:Last Documented: Result Date Time B/P 135/66 08/11 0701 B/P Mean 78 08/11 0701 Pulse 124 08/11 0701 Resp 29 08/11 07 Pulse Ox 95 08/11 0630 Temp 36.6 08/11 0400 O2 Delivery Room air 08/11 0000 O2 Flow Rate 2 08/11 1999 FiO2 40 08/07 0752 PATIENT WEIGHT: Weight (lb): 177Weight (oz): 14.61Weight (kg): 80.286 MedicationsCurrent Home MedicationsASPIRIN 81 MG PO DAILY CLOPIDOGREL (PLAVIX) 75 MG PO DAILY ALLOPURINOL (ZYLOPRIM) 300 MG PO DAILY ATORVASTATIN (LIPITOR) 40 MG PO BEDTIME BRIMONIDINE (ALPHAGAN P 0.1% OPHTH SOLN) 1 DROP EACH EYE Q8H DORZOLAMIDE/TIMOLOL (COSOPT 2%-0.5% OPHTH) 1 DROP EACH EYE BID FINASTERIDE (PROSCAR) 5 MG PO DAILY LATANOPROST (XALATAN 0.005% OPHTH SOLN) 1 DROP EACH EYE BEDTIME LOSARTAN (COZAAR) 25 MG PO DAILY METOPROLOL TARTRATE (LOPRESSOR) 50 MG PO BID TAMSULOSIN ER (FLOMAX) 0.8 MG PO DAILY GLIMEPIRIDE (AMARYL) 2 MG PO C BK DAPAGLIFLOZIN/metFORMIN 5/500 MG (XIGDUO XR 5/500 MG) 1 TAB PO DAILY Active Meds + DC'd Last 24 HrsInsulin Human Lispro (HUMALOG) 0 Q6H SUBQ Bisacodyl (DULCOLAX) 10 MG DAILY PRN PRN RECTAL Allopurinol (ZYLOPRIM) 300 MG DAILY FEED-TUBE Aspirin (ASPIRIN) 81 MG DAILY FEED-TUBE Clopidogrel Bisulfate (Plavix) 75 MG DAILY FEED-TUBE Lactulose (LACTULOSE) 20 GM Q12HR FEED-TUBE Tamsulosin HCl (Flomax 0.4 mg) 0.8 MG DAILY FEED-TUBE Atorvastatin Calcium (LIPITOR) 40 MG BEDTIME FEED-TUBE Polyethylene Glycol (MIRALAX) 17 GM Q12H PO Metoprolol Tartrate (LOPRESSOR) 50 MG Q8HR FEED-TUBE Senna/Docusate Sodium (SENOKOT S) 1 TAB Q12H FEED-TUBE Dextrose/Water (DEXTROSE 10% IN WATER) 125 ML ASDIR PRN IV (CKD) Dextrose/Water (DEXTROSE 10% IN WATER) 250 ML ASDIR PRN IV (CKD) Glucagon (GLUCAGON) 1 MG ASDIR PRN IM Insulin Glargine (Semglee) 20 UNIT DAILY SUBQ Mupirocin (BACTROBAN 2% 22 GM OINTMENT) 1 APPLIC BID NASAL (DC) Metronidazole/Sodium Chloride (metroNIDAZOLE 500MG/NS 100ML) 100 ML Q12H IV Sodium Chloride (SODIUM CHLORIDE 0.9%) 250 ML BOLUS PRN IV Ceftriaxone Sodium (ROCEPHIN) 2,000 MG Q24H IV Sodium Chloride (SODIUM CHLORIDE) 20 MLLatanoprost (XALATAN 2.5 ML OPHTH SOLN) 1 DROP BEDTIME EACH EYE Timolol Maleate (TIMOPTIC 0.5% 5 ML OPHTH SOLN) 1 DROP BID EACH EYE Brimonidine Tartrate (Alphagan-P 0.2% 5 ML OPHTH SOLN) 1 DROP Q8HR EACH EYE Hydralazine HCl (APRESOLINE) 10 MG Q6H PRN PRN IV Ondansetron HCl (ZOFRAN) 4 MG Q4H PRN PRN IV Dietitian nutrition assessmentThe data set between the solid lines has been imported from the dietitian's assessment. BMI Calculated: 27.7Nutrition related diagnosis: OverweightNutrition diagnosis details: BMI 25-29.9Nutrition problem: Inadequate oral intakeNutrition etiology: PT LETHARGIC /SWALLOWING Nutrition signs and symptoms: ENTERAL NUTRITION TO MEET , ENERGY NEEDS Nutrition prescription: RECOMMEND: VITAL AF@ 68 MLS WILL PROVIDE: 2016/126 GMS/1362 MLS FW/DAILY FOLLOW ENVIRONMENTAL PROTECTION ECONOMIST FOR DIET ADVANCEMENT Dietitian name: Rohan Sarah, DIETAssessment completed: 08/09/23 Physical ExamNeuro comment:GEN: NAD, awake, confused CVS: RRR, no carotid bruit CHEST: On BiPAP. ABD: Soft, NTTP NEURO MENTAL STATUS: awake, follows simple commands LANG/SPEECH: some fluent speech, follows simple commands CRANIAL NERVES: II: Pupils equal and reactive, no RAPD, no VF deficits, normal fundus III, IV, : EOM intact, no gaze preference or deviation, no nystagmus. V: normal sensation in V1, V2, and V3 segments bilaterally VII: no asymmetry, no nasolabial fold flattening VIII: normal hearing to speech IX, X: normal palatal elevation, no uvular deviation XI: 5/5 head turn and 5/5 shoulder shrug bilaterally XII: midline tongue protrusion MOTOR: Right upper extremity demonstrates trace distal movement to noxious stimulus, left upper extremity spontaneously antigravity. Bilateral lower extremities demonstrate minimal movement to noxious stimuli. REFLEXES: 2/4 throughout, bilateral flexor planter response, no Genao's, no clonus SENSORY: As noted in motor portion COORD: Does not participate Diagnosis, Assessment PlanFree Text A P:Patient is 68-year-old male with a history of hypertension, hyperlipidemia, diabetes, and coronary artery disease who was hospitalized for cholecystitis presenting for evaluation of altered mental status. A1c 8.2LDL 92CTAIMPRESSION: High-grade stenosis involving the right M1 segment likely secondary to thrombus. Atherosclerotic disease within both carotid siphons with mild flow-limiting stenosis. Vessel irregularity of the distal intracranial vasculature with areas of severe flow-limiting stenosis in both cerebral arteries.TTE1. Left ventricle: The cavity size is normal. Wall thickness is normal. Systolic function is normal. The estimated ejection fraction is 55-60%. Wall motion is normal; there are no regional wall motion abnormalities. Grade I diastolic dysfunction.2. Right ventricle: The RV pressure during systole is 42 mm Hg.3. Left atrium: The atrium is mildly dilated.4. Mitral valve: There is mild regurgitation.5. Tricuspid valve: There is mild regurgitation.6. Pericardium, extracardiac: A small pericardial effusion is identified.MRI: IMPRESSION: Small focus of subacute ischemia in the left guo radiata. Chronic microvascular ischemic changes and diffuse cerebral volume loss. cerebral infarction due to occlusion and stenosis of a small arteryAcute encephalopathy, metabolic multifactorialIntracranial atherosclerosisCholecystitisHyperlipidemiaHypertensionDiabe tesAnemiaCoronary artery disease-normalize BP-ASA/plavix are home medications continue as long as he remains clear given falling Hgb. He has CAD s/p PCI. Duration of DAPT per cardiology-LDL goal <70-A1c goal <7%-Vuqrulflrltfml-Bfnbtxmme-O8s, lipid iinrt-Asaxcittrcnf-GXY for BG control to 114-409-Favoevg, B12, folate, TSH, ABG reviewed-PT/OT/ST when appropriate DVT ppx: LMWH vs SQH when clear at 2031 RPT #:[id number] OF REPORTPRProgress [id number]:19:00G.[id number] for patient yhnhKMTKAHIHNPTYJT1205-85-33C53:32:02 [facility] 2023-08-12 07:42:00 [id number]/uQQ4qCJ a41BDMgEh5F9FAbTgvd NrQgBgTM+3RijeLIu1089-90-49R15:42:00 [facility] Progress NoteREPORT#:[id number] REPORT STATUS: SignedREPORT INITIALIZATION DATE:08/12/23 TIME: 741 PATIENT: MISSY CANALES UNIT #: [id number]#: [id number] [address] [birth year] AGE: 68 SEX: M ATTEND: Raphael Ly MDADM AUTHOR: Vitaly Jordan NPREPT SERVICE DT/TIME: 08/12/23 0742* ALL edits or amendments must be made on the electronic/computer document * SubjectiveChief complaint:He is awake but not oriented to time and placed.has Dobhoff tube in placed.HR is high.Less Abd pain, N/v. Unable to obtain: medical condition, patient condition Review of SystemsAll systems rev neg: except as notedUnable to obtain due to:disorineted Objective GeneralVS/I O:Vital Signs: Date Time Temp Pulse Resp B/P B/P Pulse O2 O2 Flow FiO2 Mean Ox Delivery Rate 08/11 0300 103 25 115/56 80 97 08/11 0230 99 25 96 08/11 0200 104 26 120/58 81 97 08/11 0130 102 23 97 08/11 0100 100 26 110/56 78 96 08/11 0030 100 23 97 08/11 0000 37.1 Room air 08/11 0000 99 24 111/65 84 97 08/10 2000 37.3 08/10 2000 Nasal 2 cannula 08/10 1600 36.7 08/10 1315 104 25 97 08/10 1300 105 24 111/68 85 97 08/10 1230 106 22 97 08/10 1200 37.1 08/10 1200 103 20 105/50 70 97 08/10 1130 98 24 96 08/10 1100 110 21 121/55 79 96 08/10 1030 103 24 97 08/10 1000 101 25 125/70 90 97 08/10 0930 100 20 98 08/10 0900 101 23 126/58 83 98 08/10 0830 97 22 97 08/10 0800 36.9 08/10 0800 105 23 119/75 93 97 PATIENT WEIGHT: Weight (lb): 177Weight (oz): 14.61Weight (kg): 80.286 Medications:Active Meds + DC'd Last 24 HrsInsulin Human Lispro (HUMALOG) 0 Q6H SUBQ Bisacodyl (DULCOLAX) 10 MG DAILY PRN PRN RECTAL Allopurinol (ZYLOPRIM) 300 MG DAILY FEED-TUBE Aspirin (ASPIRIN) 81 MG DAILY FEED-TUBE Clopidogrel Bisulfate (Plavix) 75 MG DAILY FEED-TUBE Lactulose (LACTULOSE) 20 GM Q12HR FEED-TUBE Tamsulosin HCl (Flomax 0.4 mg) 0.8 MG DAILY FEED-TUBE Atorvastatin Calcium (LIPITOR) 40 MG BEDTIME FEED-TUBE Polyethylene Glycol (MIRALAX) 17 GM Q12H PO Metoprolol Tartrate (LOPRESSOR) 50 MG Q8HR FEED-TUBE Senna/Docusate Sodium (SENOKOT S) 1 TAB Q12H FEED-TUBE Dextrose/Water (DEXTROSE 10% IN WATER) 125 ML ASDIR PRN IV (CKD) Dextrose/Water (DEXTROSE 10% IN WATER) 250 ML ASDIR PRN IV (CKD) Glucagon (GLUCAGON) 1 MG ASDIR PRN IM Insulin Glargine (Semglee) 20 UNIT DAILY SUBQ Mupirocin (BACTROBAN 2% 22 GM OINTMENT) 1 APPLIC BID NASAL (DC) Metronidazole/Sodium Chloride (metroNIDAZOLE 500MG/NS 100ML) 100 ML Q12H IV Sodium Chloride (SODIUM CHLORIDE 0.9%) 250 ML BOLUS PRN IV Ceftriaxone Sodium (ROCEPHIN) 2,000 MG Q24H IV Sodium Chloride (SODIUM CHLORIDE) 20 MLLatanoprost (XALATAN 2.5 ML OPHTH SOLN) 1 DROP BEDTIME EACH EYE Timolol Maleate (TIMOPTIC 0.5% 5 ML OPHTH SOLN) 1 DROP BID EACH EYE Brimonidine Tartrate (Alphagan-P 0.2% 5 ML OPHTH SOLN) 1 DROP Q8HR EACH EYE Hydralazine HCl (APRESOLINE) 10 MG Q6H PRN PRN IV Ondansetron HCl (ZOFRAN) 4 MG Q4H PRN PRN IV Dietitian nutrition assessmentThe data set between the solid lines has been imported from the dietitian's assessment. BMI Calculated: 27.7Nutrition related diagnosis: OverweightNutrition diagnosis details: BMI 25-29.9Nutrition problem: Inadequate oral intakeNutrition etiology: PT LETHARGIC /SWALLOWING Nutrition signs and symptoms: ENTERAL NUTRITION TO MEET , ENERGY NEEDS Nutrition prescription: RECOMMEND: VITAL AF@ 68 MLS WILL PROVIDE: 2016/ GMS/1362 MLS FW/DAILY FOLLOW ENVIRONMENTAL PROTECTION ECONOMIST FOR DIET ADVANCEMENT Dietitian name: Rohan Sarah, DIETAssessment completed: 08/09/23 Physical ExamGeneral appearance: confused, frail, respiratory supportHead/Eyes: atraumatic, normocephalic, PERRLAENT: moist mucosal membranes, normal dentitionCardiovascular: normal heart sounds, regular rate rhythmRespiratory: aerating well, symmetric expansion, no distressAbdomen: non-tender, normal bowel soundsGenitourinary: no bladder distention, no flank painExtremities: no clubbing, no cyanosisMusculoskeletal: no muscle spasmNeuro/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: abnormal speech, disoriented ResultsFindings/Data:Laboratory Tests 08/11 08/11 08/10 08/10 0610 0012 1902 1046 Chemistry POC Glucose (70 - 110 MG/DL) 177 H 191 H 144 H 156 H Results: labs reviewed, vital signs reviewed, current med profile rev'd Free Text Obj NotesFree Text Obj Notes:ResultsFindings/Data:Laboratory Tests 08/08 08/08 08/07 08/07 08/07 0507 0348 2308 1433 1139 Chemistry Sodium (134 - 147 mEq/L) 154 H 155 H Potassium (3.4 - 5.0 mEq/L) 3.7 3.9 Chloride (100 - 108 mEq/L) 123 H 124 H Carbon Dioxide (21 - 33 mEq/l) 20 L 22 Anion Gap (0 - 20) 14 13 BUN (7 - 25 mg/dL) 20 26 H Creatinine (0.6 - 1.3 mg/dL) 1.0 0.7 Glomerular Filtr Rate (70 - 80) 81.0 H 99.1 H Glucose (77 - 141 mg/dL) 146 H 184 H POC Glucose (70 - 110 MG/DL) 119 H 135 H 162 H Calcium (8.0 - 10.5 mg/dL) 8.4 8.1 Laboratory Tests 08/08 08/07 08/07 0348 2039 1433 Hematology Hgb (12.5 - 16.9 g/dL) 9.6 L 9.3 L 9.5 L Hct (37.5 - 50.7 %) 28.7 L 27.9 L 28.3 L Radiology data:Recent Impressions:CAT SCAN - CT ABD PELVIS W WO CONT 08/07 1736 Report Impression - Status: SIGNED Entered: 08/08/20231736 IMPRESSION:No evidence of acute hemorrhage within the the liver and thegallbladder.Hyperdense contents within the gallbladder and 2nd segment of theduodenum may represent contrast and/or blood products.Large amount of stool within the rectum. LOCATION: B5Wfvtezcjmm By: Anthony Degroot M.D. Treatment Prophylaxis Treatment ProphylaxisOxygen: room air Diagnosis, Assessment PlanCode status: full codePlan discussed with: patient, admitting physician, consultants, nurse Free Text DxA P NotesFree text DxA P notes:Assessment - Acute Cholangitis/Cholelithiasis with distended gallbladder.- Acute stroke/Small focus of subacute ischemia in the left guo radiata.- Intraheptic abscess with Fistula to gallbaldder.- s/p IR drainage of liver abscess and gallbladder, drainage bilious today in IR drain, C tube bilious/bloody.- Superficial venous thrombosis of the right the left basilic vein.- Large amount of stool within the rectum.- Elevated LFTs and Bilirubin due to Possible Acute Chloangitis.- Elevated Troponin could be demand Ischemia.- Abd pain and N/V/Confusion- ARELY.- Hyperglycemia.- Sepsis; tachycardia, Bcx Gram neg rods- HX of HTN/DM type II/HLD and CAD s/p stent. Plan: 08/12/23: ICU.He pulled out Dobhoff twice.Will restrain.Speech for swallow eval.He needs interval cholecystectomy in the future, currently controlled with cholecystostomy tube and IR drain for liver abscess, given recent stroke, recentPCI on DAPT and bacteremia, not a good operative candidate currently.Monitor Neuro status.He is on aspirin, Plavix.Aggressive PT and OT.Continue IV ABX for Bacteremia.Pain meds.Antiemetics.Glycemic control, Accu check AC HS, ISS, diabetic diet.GI and surgery following for elevated LFts and Liver abscess.Monitor. 08/11/23: ICU.MRI brain showed Acute stroke/Small focus of subacute ischemia in the left guo radiata.He is on aspirin, Plavix.Aggressive PT and OT.Continue IV ABX for Bacteremia.Pain meds.Antiemetics.Glycemic control, Accu check AC HS, ISS, diabetic diet.Monitor. 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, strict vital monitor, strict I O's, monitor, replace electrolytes-Status post cholecystostomy tube placement, IV ceftriaxone/IV Flagyl, GI consulted-Insulin sliding scale-s/p IR drainage of liver abscess and gallbladder, drainage bilious today in IR drain, C tube bilious/bloody, hgb 8.8 (9.5), stable, pt on DAPT, cont to monitor-CTA this 08/07 w/o obvious bleed, drains appear roughly in proper position-cont IV abx, ID on board-Advance diet as per surgery-Continue aspirin, Plavix-Cholecystectomy eventually needed however recent stroke, recent PCI/bacteremia,high risk for procedure-Stroke, neurology following Quality: [facility] Care Plan 65 or OlderDiscussed with: patient, surrogate decis. maker at 0747 at 2052 RPT #:[id number] OF REPORTPRProgress [id number]:42:00G.[id number] for patient tpooVMOAWLBBXQSBBN3561-67-64X27:47:46 [facility] 2023-08-11 14:03:00 [id number] [id number] hINu9KZQ7pHtjaXn32464-33-16H49:03:00 [facility])Gastroenterology Progress NoteREPORT#:[id number] REPORT STATUS: SignedREPORT INITIALIZATION DATE:08/11/23 TIME: 1402 PATIENT: MISSY CANALES UNIT #: [id number]#: [id number] [address] [birth year] AGE: 68 SEX: M ATTEND: Raphael Ly MDADM AUTHOR: Keyana Valero NPREPT SERVICE DT/TIME: 08/11/23 1403* ALL edits or amendments must be made on the electronic/computer document * SubjectiveChief complaint:Elevated LFtsHPI:68 year old man s/p cardiac stents 2 weeks ago who was sent to the hospital withelevated LFTs and possible acute cholecystitis. Pt had a stenet recently placed and was started on DAPT. Pt had labs showing elevated LFTs and was sent here forevaluation. Labs showed leukocytosis 15k. Elevated Tbili 3.7. Dbili 2.8. AST 79,ALT 105 and ALP 225. RUQ U/S showed possible cholecystitis and normal CBD of 4 mm in diatmeter. Pt denies pain. No dark urine or peyton-color stool 08/03; patient feels well. MRCP reviewed. No choledocholithiasis. Fluid collection at the liver could be related secondary to gallbladder perforation. LFTs and white count are down. 08/04: Plan for IR for cholecystostomy tube placement. LFts stable. WBC elevated.Was confused this am but improving. NO pain. No fevers. Added flagyl to his Abx regimen 08/05: NO new complaints. IR for abscess drain and cholecystostomy tube 08/06: Transferred overnight to ICU due to AMS. S/P IR with cholecystostomy tube and abscess drain 08/07: severely constipated. NGT in with feeds. drains in. More awake today and oriented. right sided weakness likely acute stroke. MRI brain reviewed- small stroke. KUB reviewed 08/08: Doing better according to . Sheldon removed. Still on feeds 08/09: Feeds at 20 ml/hr. Still no BM 08/10-Had BM last night. Denies n/v/abd pain Review of SystemsConstitutional:Denies: chills, fever. Skin:Denies: diaphoresis, itching. Allergy/Immun:Denies: allergic reaction, anaphylaxis. Eyes:Denies: redness, discharge. ENT:Denies: earache, nose bleeding. GI:Denies: abdominal pain, vomiting. Heme:Denies: adenopathy, petechiae. Endocrine:Denies: weight gain, weight loss. Objective GeneralVS/I O:Last Documented: Result Date Time Pulse Ox 97 08/10 1315 Pulse 104 08/10 1315 Resp 25 08/10 1315 B/P 111/68 08/10 1300 B/P Mean 85 08/10 1300 Temp 37.1 08/10 1200 O2 Flow Rate 1 08/07 1600 O2 Delivery Nasal cannula 08/07 1425 FiO2 40 08/07 0752 24 hour I O ending at 0700: 08/10 0700 08/09 1900 Intake Total Output Total 75 1000 Balance -75 -1000 Number 1 Bowel Movements Output, 75 Drainage Output, Urine 1000 Patient 80.286 kg Weight PATIENT WEIGHT: Weight (lb): 177Weight (oz): 14.61Weight (kg): 80.286 Medications:Active Meds + DC'd Last 24 HrsInsulin Human Lispro (HUMALOG) 0 Q6H SUBQ Bisacodyl (DULCOLAX) 10 MG DAILY PRN PRN RECTAL Allopurinol (ZYLOPRIM) 300 MG DAILY FEED-TUBE Aspirin (ASPIRIN) 81 MG DAILY FEED-TUBE Clopidogrel Bisulfate (Plavix) 75 MG DAILY FEED-TUBE Lactulose (LACTULOSE) 20 GM Q12HR FEED-TUBE Tamsulosin HCl (Flomax 0.4 mg) 0.8 MG DAILY FEED-TUBE Atorvastatin Calcium (LIPITOR) 40 MG BEDTIME FEED-TUBE Polyethylene Glycol (MIRALAX) 17 GM Q12H PO Metoprolol Tartrate (LOPRESSOR) 50 MG Q8HR FEED-TUBE Senna/Docusate Sodium (SENOKOT S) 1 TAB Q12H FEED-TUBE Dextrose/Water (DEXTROSE 10% IN WATER) 125 ML ASDIR PRN IV (CKD) Dextrose/Water (DEXTROSE 10% IN WATER) 250 ML ASDIR PRN IV (CKD) Glucagon (GLUCAGON) 1 MG ASDIR PRN IM Insulin Glargine (Semglee) 20 UNIT DAILY SUBQ Mupirocin (BACTROBAN 2% 22 GM OINTMENT) 1 APPLIC BID NASAL Metronidazole/Sodium Chloride (metroNIDAZOLE 500MG/NS 100ML) 100 ML Q12H IV Sodium Chloride (SODIUM CHLORIDE 0.9%) 250 ML BOLUS PRN IV Ceftriaxone Sodium (ROCEPHIN) 2,000 MG Q24H IV Sodium Chloride (SODIUM CHLORIDE) 20 MLLatanoprost (XALATAN 2.5 ML OPHTH SOLN) 1 DROP BEDTIME EACH EYE Timolol Maleate (TIMOPTIC 0.5% 5 ML OPHTH SOLN) 1 DROP BID EACH EYE Brimonidine Tartrate (Alphagan-P 0.2% 5 ML OPHTH SOLN) 1 DROP Q8HR EACH EYE Hydralazine HCl (APRESOLINE) 10 MG Q6H PRN PRN IV Ondansetron HCl (ZOFRAN) 4 MG Q4H PRN PRN IV Physical ExamGeneral appearance: alert, awake, orientedHEENT: EOMICardiovascular: normal heart soundsRespiratory: clear to auscultationAbdomen: non-tenderExtremities: no edemaSkin: dry, normal temperature ResultsFindings/Data:Laboratory Tests 08/10 08/10 08/09 08/09 1046 0528 2331 1800 Chemistry POC Glucose (70 - 110 MG/DL) 156 H 162 H 155 H 134 H Diagnosis, Assessment PlanFree Text A P:cholestatic pattern. CBD normal on RuQ U/S MRCP showed no evidence of choledocholithiasis.Large fluid collection within the liver could be secondary to gallbladder perforation.Recommend surgical evaluation again.Continue with antibiotics. Add flagyl s/p cholecystostomy tube and drainage of cystic fluid collection. Awaiting culture Surgery consultation reviewed. Agree with plan Acute strokeconstipation: bowel regimen. Will start suppositories Will follow at 1405 at 1238 RPT #:[id number] OF REPORTPRProgress [id number]:03:00G.[id number] for patient ssrdLFDJKIGMTMFILI8982-42-01U41:05:26 [facility] 2023-08-11 09:53:00 [id number]+[id number] btzuiivv140IoWSg+wb sq1wbiyf3SL/8RUVt2747-52-85Y23:53:00 [facility] ([facility])Neurology Progress NoteREPORT#:[id number] REPORT STATUS: SignedREPORT INITIALIZATION DATE:08/11/23 TIME: 952 PATIENT: MISSY CANALES UNIT #: [id number]#: [id number] [address] [birth year] AGE: 68 SEX: M ATTEND: Raphael Ly MDADM AUTHOR: Skyler Monae MDREPT SERVICE DT/TIME: 08/11/23 0953* ALL edits or amendments must be made on the electronic/computer document * SubjectiveChief complaint:AMSHPI:NICOLE. Review of Systems Free Text ROS NotesFree Text ROS Notes:No change in R hemiplegia. ROS same. Objective GeneralVS:Last Documented: Result Date Time Temp 36.9 08/10 0800 Pulse Ox 96 / 0600 B/P 123/58 08/10 0600 B/P Mean 84 08/10 0600 Pulse 100 / 0600 Resp 27 08/10 0600 O2 Flow Rate 1 08/07 1600 O2 Delivery Nasal cannula 08/07 1425 FiO2 40 08/07 0752 PATIENT WEIGHT: Weight (lb): 177Weight (oz): 14.61Weight (kg): 80.286 MedicationsCurrent Home MedicationsASPIRIN 81 MG PO DAILY CLOPIDOGREL (PLAVIX) 75 MG PO DAILY ALLOPURINOL (ZYLOPRIM) 300 MG PO DAILY ATORVASTATIN (LIPITOR) 40 MG PO BEDTIME BRIMONIDINE (ALPHAGAN P 0.1% OPHTH SOLN) 1 DROP EACH EYE Q8H DORZOLAMIDE/TIMOLOL (COSOPT 2%-0.5% OPHTH) 1 DROP EACH EYE BID FINASTERIDE (PROSCAR) 5 MG PO DAILY LATANOPROST (XALATAN 0.005% OPHTH SOLN) 1 DROP EACH EYE BEDTIME LOSARTAN (COZAAR) 25 MG PO DAILY METOPROLOL TARTRATE (LOPRESSOR) 50 MG PO BID TAMSULOSIN ER (FLOMAX) 0.8 MG PO DAILY GLIMEPIRIDE (AMARYL) 2 MG PO C BK DAPAGLIFLOZIN/metFORMIN 5/500 MG (XIGDUO XR 5/500 MG) 1 TAB PO DAILY Active Meds + DC'd Last 24 HrsInsulin Human Lispro (HUMALOG) 0 Q6H SUBQ Bisacodyl (DULCOLAX) 10 MG DAILY PRN PRN RECTAL Allopurinol (ZYLOPRIM) 300 MG DAILY FEED-TUBE Aspirin (ASPIRIN) 81 MG DAILY FEED-TUBE Clopidogrel Bisulfate (Plavix) 75 MG DAILY FEED-TUBE Lactulose (LACTULOSE) 20 GM Q12HR FEED-TUBE Tamsulosin HCl (Flomax 0.4 mg) 0.8 MG DAILY FEED-TUBE Atorvastatin Calcium (LIPITOR) 40 MG BEDTIME FEED-TUBE Polyethylene Glycol (MIRALAX) 17 GM Q12H PO Metoprolol Tartrate (LOPRESSOR) 50 MG Q8HR FEED-TUBE Senna/Docusate Sodium (SENOKOT S) 1 TAB Q12H FEED-TUBE Insulin Human Lispro (HUMALOG) 0 Q6HR SUBQ (DC) Dextrose/Water (DEXTROSE 10% IN WATER) 125 ML ASDIR PRN IV (CKD) Dextrose/Water (DEXTROSE 10% IN WATER) 250 ML ASDIR PRN IV (CKD) Glucagon (GLUCAGON) 1 MG ASDIR PRN IM Insulin Glargine (Semglee) 20 UNIT DAILY SUBQ Mupirocin (BACTROBAN 2% 22 GM OINTMENT) 1 APPLIC BID NASAL Metronidazole/Sodium Chloride (metroNIDAZOLE 500MG/NS 100ML) 100 ML Q12H IV Sodium Chloride (SODIUM CHLORIDE 0.9%) 250 ML BOLUS PRN IV Ceftriaxone Sodium (ROCEPHIN) 2,000 MG Q24H IV Sodium Chloride (SODIUM CHLORIDE) 20 MLLatanoprost (XALATAN 2.5 ML OPHTH SOLN) 1 DROP BEDTIME EACH EYE Timolol Maleate (TIMOPTIC 0.5% 5 ML OPHTH SOLN) 1 DROP BID EACH EYE Brimonidine Tartrate (Alphagan-P 0.2% 5 ML OPHTH SOLN) 1 DROP Q8HR EACH EYE Hydralazine HCl (APRESOLINE) 10 MG Q6H PRN PRN IV Ondansetron HCl (ZOFRAN) 4 MG Q4H PRN PRN IV Dietitian nutrition assessmentThe data set between the solid lines has been imported from the dietitian's assessment. BMI Calculated: 27.7Nutrition related diagnosis: OverweightNutrition diagnosis details: BMI 25-29.9Nutrition problem: Inadequate oral intakeNutrition etiology: PT LETHARGIC /SWALLOWING Nutrition signs and symptoms: ENTERAL NUTRITION TO MEET , ENERGY NEEDS Nutrition prescription: RECOMMEND: VITAL AF@ 68 MLS WILL PROVIDE: 2016/ GMS/1362 MLS FW/DAILY FOLLOW ENVIRONMENTAL PROTECTION ECONOMIST FOR DIET ADVANCEMENT Dietitian name: Rohan Sarah, DIETAssessment completed: 08/09/23 Physical ExamNeuro comment:GEN: NAD, awake, confused CVS: RRR, no carotid bruit CHEST: On BiPAP. ABD: Soft, NTTP NEURO MENTAL STATUS: awake, follows simple commands LANG/SPEECH: some fluent speech, follows simple commands CRANIAL NERVES: II: Pupils equal and reactive, no RAPD, no VF deficits, normal fundus III, IV, : EOM intact, no gaze preference or deviation, no nystagmus. V: normal sensation in V1, V2, and V3 segments bilaterally VII: no asymmetry, no nasolabial fold flattening VIII: normal hearing to speech IX, X: normal palatal elevation, no uvular deviation XI: 5/5 head turn and 5/5 shoulder shrug bilaterally XII: midline tongue protrusion MOTOR: Right upper extremity demonstrates trace distal movement to noxious stimulus, left upper extremity spontaneously antigravity. Bilateral lower extremities demonstrate minimal movement to noxious stimuli. REFLEXES: 2/4 throughout, bilateral flexor planter response, no Genao's, no clonus SENSORY: As noted in motor portion COORD: Does not participate ResultsFindings/Data:Laboratory Tests 08/10 08/09 08/09 08/09 0528 2331 1800 1234 Chemistry POC Glucose (70 - 110 MG/DL) 162 H 155 H 134 H 206 H Diagnosis, Assessment PlanFree Text A P:Patient is 68-year-old male with a history of hypertension, hyperlipidemia, diabetes, and coronary artery disease who was hospitalized for cholecystitis presenting for evaluation of altered mental status. A1c 8.2LDL 92CTAIMPRESSION: High-grade stenosis involving the right M1 segment likely secondary to thrombus. Atherosclerotic disease within both carotid siphons with mild flow-limiting stenosis. Vessel irregularity of the distal intracranial vasculature with areas of severe flow-limiting stenosis in both cerebral arteries.TTE1. Left ventricle: The cavity size is normal. Wall thickness is normal. Systolic function is normal. The estimated ejection fraction is 55-60%. Wall motion is normal; there are no regional wall motion abnormalities. Grade I diastolic dysfunction.2. Right ventricle: The RV pressure during systole is 42 mm Hg.3. Left atrium: The atrium is mildly dilated.4. Mitral valve: There is mild regurgitation.5. Tricuspid valve: There is mild regurgitation.6. Pericardium, extracardiac: A small pericardial effusion is identified.MRI: IMPRESSION: Small focus of subacute ischemia in the left guo radiata. Chronic microvascular ischemic changes and diffuse cerebral volume loss. cerebral infarction due to occlusion and stenosis of a small arteryAcute encephalopathy, metabolic multifactorialIntracranial atherosclerosisCholecystitisHyperlipidemiaHypertensionDiabe tesAnemiaCoronary artery disease-normalize BP-ASA/plavix are home medications continue as long as he remains clear given falling Hgb. He has CAD s/p PCI. Duration of DAPT per cardiology-LDL goal <70-A1c goal <7%-Ekosbyqtdgrgek-Zznqkpqsc-Q8t, lipid kmkxw-Eqnqbrfjbxly-YZZ for BG control to 032-298-Mlsjuvj, B12, folate, TSH, ABG reviewed-PT/OT/ST when appropriate DVT ppx: LMWH vs SQH when clear at 0954 RPT #:[id number] OF REPORTPRProgress obnw9611-06-18N71:53:00G.[id number] for patient isafHPOCZMITWOMIIN8271-41-03U45:54:45 [facility] 2023-08-11 08:12:00 [id number] [id number] G91Jm31QrBgND2zz12885-69-26F76:12:00 [facility] ([facility])Hospitalist Progress NoteREPORT#:[id number] REPORT STATUS: SignedREPORT INITIALIZATION DATE:08/11/23 TIME: 811 PATIENT: MISSY CANALES UNIT #: [id number]#: [id number] [place] [facility] [place]: [birth year] AGE: 68 SEX: M ATTEND: Raphael Ly MDADM AUTHOR: Vitaly Jordan NPREPT SERVICE DT/TIME: 08/11/23 0812* ALL edits or amendments must be made on the electronic/computer document * SubjectiveChief complaint:He is awake and alert.Tolerating diet.Less Abd pain, N/v.BP and HR stable. Review of SystemsConstitutional:Reports: fatigue, generalized weakness. Allergy/Immun:Denies: allergic reaction, hives, itching, rhinorrhea. ENT:Denies: ear drainage, hearing loss, nasal congestion, sore throat, throat swelling. Respiratory:Denies: hemoptysis, non productive cough, pleurisy, pneumonia, productive cough (sputum). Cardiovascular:Denies: chest pain, orthopnea, palpitations, parox nocturnal dyspnea. GI:Denies: anorexia, diarrhea, GERD, hiatal hernia. :Denies: flank pain, nocturia, testicular pain, urgency. Heme:Denies: bleeding, bruising. Endocrine:Denies: heat intolerance. Neuro:Denies: change in LOC, dizziness, lightheaded, slurred speech, spinning sensation. Objective GeneralVS/I O:Vital Signs: Date Time Temp Pulse Resp B/P B/P Pulse O2 O2 Flow FiO2 Mean Ox Delivery Rate 08/10 0600 37.9 08/10 0600 100 27 123/58 84 96 08/10 0500 101 27 128/52 75 97 08/10 0400 102 28 127/69 91 97 08/10 0322 38.1 08/10 0301 100 34 140/46 67 98 /16 0200 93 24 112/56 80 98 /16 0100 91 24 108/53 76 97 /16 0000 87 26 105/47 68 96 / 2340 38.2 08/09 2300 90 26 102/52 68 97 /15 2200 91 23 107/49 71 96 /15 2112 37.6 /15 2000 107 27 130/62 89 98 /15 1901 100 24 156/63 91 97 /15 1800 95 23 115/49 71 03/15 1701 92 30 120/59 85 03/15 1601 85 29 107/76 87 /15 1600 38.2 /15 1501 84 30 123/59 83 03/15 1431 93 27 170/62 89 03/15 1401 99 25 142/52 75 89 /15 1331 98 28 134/59 85 90 03/15 1301 96 25 127/70 83 100 03/15 1230 88 25 135/65 92 98 08/09 1201 88 23 128/55 79 96 08/09 1200 37.3 08/09 1131 89 21 150/66 95 100 08/09 1101 90 22 116/55 79 99 08/09 1030 91 23 127/55 79 96 08/09 1001 92 24 122/64 85 100 08/09 0931 87 24 129/58 84 99 08/09 0901 84 22 144/63 91 99 08/09 0831 83 25 133/59 85 99 24 hour I O ending at 0700: 08/10 0700 08/09 1900 Intake Total Output Total 75 1000 Balance -75 -1000 Number 1 Bowel Movements Output, 75 Drainage Output, Urine 1000 Patient 80.286 kg Weight PATIENT WEIGHT: Weight (lb): 177Weight (oz): 14.61Weight (kg): 80.286 Medications:Active Meds + DC'd Last 24 HrsInsulin Human Lispro (HUMALOG) 0 Q6H SUBQ Bisacodyl (DULCOLAX) 10 MG DAILY PRN PRN RECTAL Allopurinol (ZYLOPRIM) 300 MG DAILY FEED-TUBE Aspirin (ASPIRIN) 81 MG DAILY FEED-TUBE Clopidogrel Bisulfate (Plavix) 75 MG DAILY FEED-TUBE Lactulose (LACTULOSE) 20 GM Q12HR FEED-TUBE Tamsulosin HCl (Flomax 0.4 mg) 0.8 MG DAILY FEED-TUBE Atorvastatin Calcium (LIPITOR) 40 MG BEDTIME FEED-TUBE Polyethylene Glycol (MIRALAX) 17 GM Q12H PO Metoprolol Tartrate (LOPRESSOR) 50 MG Q8HR FEED-TUBE Senna/Docusate Sodium (SENOKOT S) 1 TAB Q12H FEED-TUBE Insulin Human Lispro (HUMALOG) 0 Q6HR SUBQ (DC) Dextrose/Water (DEXTROSE 10% IN WATER) 125 ML ASDIR PRN IV (CKD) Dextrose/Water (DEXTROSE 10% IN WATER) 250 ML ASDIR PRN IV (CKD) Glucagon (GLUCAGON) 1 MG ASDIR PRN IM Insulin Glargine (Semglee) 20 UNIT DAILY SUBQ Mupirocin (BACTROBAN 2% 22 GM OINTMENT) 1 APPLIC BID NASAL Metronidazole/Sodium Chloride (metroNIDAZOLE 500MG/NS 100ML) 100 ML Q12H IV Sodium Chloride (SODIUM CHLORIDE 0.9%) 250 ML BOLUS PRN IV Ceftriaxone Sodium (ROCEPHIN) 2,000 MG Q24H IV Sodium Chloride (SODIUM CHLORIDE) 20 MLLatanoprost (XALATAN 2.5 ML OPHTH SOLN) 1 DROP BEDTIME EACH EYE Timolol Maleate (TIMOPTIC 0.5% 5 ML OPHTH SOLN) 1 DROP BID EACH EYE Brimonidine Tartrate (Alphagan-P 0.2% 5 ML OPHTH SOLN) 1 DROP Q8HR EACH EYE Hydralazine HCl (APRESOLINE) 10 MG Q6H PRN PRN IV Ondansetron HCl (ZOFRAN) 4 MG Q4H PRN PRN IV Dietitian nutrition assessmentThe data set between the solid lines has been imported from the dietitian's assessment. BMI Calculated: 27.7Nutrition related diagnosis: OverweightNutrition diagnosis details: BMI 25-29.9Nutrition problem: Inadequate oral intakeNutrition etiology: PT LETHARGIC /SWALLOWING Nutrition signs and symptoms: ENTERAL NUTRITION TO MEET , ENERGY NEEDS Nutrition prescription: RECOMMEND: VITAL AF@ 68 MLS WILL PROVIDE: 2016/ GMS/1362 MLS FW/DAILY FOLLOW ENVIRONMENTAL PROTECTION ECONOMIST FOR DIET ADVANCEMENT Dietitian name: Rohan Sarah, DIETAssessment completed: 08/09/23 Physical ExamGeneral appearance: alert, awake, orientedHead/Eyes: atraumatic, normocephalic, PERRLAENT: moist mucosal membranes, normal dentitionCardiovascular: normal heart sounds, regular rate rhythmRespiratory: aerating well, symmetric expansion, no distressAbdomen: non-tender, normal bowel soundsGenitourinary: no bladder distention, no flank painExtremities: no clubbing, no cyanosisMusculoskeletal: no muscle spasmNeuro/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: alert, normal speech ResultsFindings/Data:Laboratory Tests 08/10 08/09 08/09 08/09 08/09 0528 2331 1800 1234 0953 Chemistry POC Glucose (70 - 110 MG/DL) 162 H 155 H 134 H 206 H 193 H Results: labs reviewed, vital signs reviewed, vital signs stable, current med profile rev'd Free Text Obj NotesFree Text Obj Notes:ResultsFindings/Data:Laboratory Tests 08/08 08/08 08/07 08/07 08/07 0507 0348 2308 1433 1139 Chemistry Sodium (134 - 147 mEq/L) 154 H 155 H Potassium (3.4 - 5.0 mEq/L) 3.7 3.9 Chloride (100 - 108 mEq/L) 123 H 124 H Carbon Dioxide (21 - 33 mEq/l) 20 L 22 Anion Gap (0 - 20) 14 13 BUN (7 - 25 mg/dL) 20 26 H Creatinine (0.6 - 1.3 mg/dL) 1.0 0.7 Glomerular Filtr Rate (70 - 80) 81.0 H 99.1 H Glucose (77 - 141 mg/dL) 146 H 184 H POC Glucose (70 - 110 MG/DL) 119 H 135 H 162 H Calcium (8.0 - 10.5 mg/dL) 8.4 8.1 Laboratory Tests 08/08 08/07 08/07 0348 2039 1433 Hematology Hgb (12.5 - 16.9 g/dL) 9.6 L 9.3 L 9.5 L Hct (37.5 - 50.7 %) 28.7 L 27.9 L 28.3 L Radiology data:Recent Impressions:CAT SCAN - CT ABD PELVIS W WO CONT 08/07 1736 Report Impression - Status: SIGNED Entered: 08/08/20231736 IMPRESSION:No evidence of acute hemorrhage within the the liver and thegallbladder.Hyperdense contents within the gallbladder and 2nd segment of theduodenum may represent contrast and/or blood products.Large amount of stool within the rectum. LOCATION: [id number] By: Anthony Degroot M.D. Treatment Prophylaxis Treatment ProphylaxisOxygen: room air Diagnosis, Assessment PlanCode status: full codePlan discussed with: patient, admitting physician, consultants, nurse Free Text DxA P NotesFree text DxA P notes:Assessment - Acute Cholangitis/Cholelithiasis with distended gallbladder.- Acute stroke/Small focus of subacute ischemia in the left guo radiata.- Superficial venous thrombosis of the right the left basilic vein.- Large amount of stool within the rectum.- Elevated LFTs and Bilirubin due to Possible Acute Chloangitis.- Elevated Troponin could be demand Ischemia.- Abd pain and N/V/Confusion- ARELY.- Hyperglycemia.- Sepsis; tachycardia, Bcx Gram neg rods- HX of HTN/DM type II/HLD and CAD s/p stent. Plan: 08/11/23: ICU.MRI brain showed Acute stroke/Small focus of subacute ischemia in the left guo radiata.He is on aspirin, Plavix.Diet.Aggressive PT and OT.Continue IV ABX for Bacteremia.Pain meds.Antiemetics.Glycemic control, Accu check AC HS, ISS, diabetic diet.Monitor. 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, strict vital monitor, strict I O's, monitor, replace electrolytes-Status post cholecystostomy tube placement, IV ceftriaxone/IV Flagyl, GI consulted-Insulin sliding scale-s/p IR drainage of liver abscess and gallbladder, drainage bilious today in IR drain, C tube bilious/bloody, hgb 8.8 (9.5), stable, pt on DAPT, cont to monitor-CTA this 08/07 w/o obvious bleed, drains appear roughly in proper position-cont IV abx, ID on board-Advance diet as per surgery-Continue aspirin, Plavix-Cholecystectomy eventually needed however recent stroke, recent PCI/bacteremia,high risk for procedure-Stroke, neurology following Quality: Gen Med Crit Care Advanced Care Plan 65 or OlderDiscussed with: patient, surrogate decis. maker at 0818 at 2051 RPT #:[id number] OF REPORTPRProgress [id number]:12:00G.[id number] for patient rlyhBUVAFNGEQBGHQQ9182-97-45K10:18:44 [facility] 2023-08-10 17:03:00 [id number]+ystSvk8 l3EIclEEwF1lzF1XJpy +S8soiRQoS+tYeOd74963-82-60T24:03:00 [facility] ([facility]urgical Oncology Progress NotREPORT#:[id number] REPORT STATUS: SignedREPORT INITIALIZATION DATE:08/10/23 TIME: 1702 PATIENT: MISSY CANALES UNIT #: [id number]#: [id number] [address] [birth year] AGE: 68 SEX: M ATTEND: Raphael Ly MDADM AUTHOR: Michael Lakhani MDREPT SERVICE DT/TIME: 08/10/231702* ALL edits or amendments must be made on the electronic/computer document * SubjectiveChief complaint:liver abscess w/ possible gallbladder fistulastrokeHPI:S: NAEO. wbc coming down, 12.2 (14.5), HR better controlled, abd soft still somewhat distended, still w/ AMS, SBFT in place, TFs running, IR drain now bilious, C tube less bloody. PEGen: NADHEENT: normocephalic, atraumatic, anicteric sclera, SBFT in placechest; No resp distressCV: perfusing wellabd: S, NT, minimally distended, no HMS, no rebound or guarding, no previous scars noted; IR drains x2 w/ bilious output, C tube with sanguinous/bilious outputext; WWPneuro: AMS Objective GeneralVS/I O:Last Documented: Result Date Time B/P 170/62 08/09 1431 B/P Mean 89 08/09 1431 Pulse 93 08/09 1431 Resp 27 08/09 1431 Pulse Ox 89 08/09 1401 Temp 98.8 08/09 0800 O2 Flow Rate 1 08/07 1600 O2 Delivery Nasal cannula 08/07 1425 FiO2 40 08/07 0752 Vital SignsDate Temp Pulse Resp B/P B/P Mean Pulse Ox KpV032/14-08/09 98.8-100.1 83-112 20-37 115-170/51-74 74-97 89-100 24 hour I O ending at 0700: 08/09 0700 08/08 1900 Intake Total 2336.00 Output Total 1000 1200 Balance -1000 1136.00 Intake, Free 1921 Water Intake, IV 100.00 Intake, Other 100 Intake, Tube 215 Feeding Number 2 Incontinent Voids Output, Urine 1000 1200 PATIENT WEIGHT: Weight (lb): 177Weight (oz): 14.61Weight (kg): 80.286 Medications:Active Meds + DC'd Last 24 HrsInsulin Human Lispro (HUMALOG) 0 Q6H SUBQ Bisacodyl (DULCOLAX) 10 MG DAILY PRN PRN RECTAL Bisacodyl (DULCOLAX) 10 MG ONCE ONE RECTAL (DC) Allopurinol (ZYLOPRIM) 300 MG DAILY FEED-TUBE Aspirin (ASPIRIN) 81 MG DAILY FEED-TUBE Clopidogrel Bisulfate (Plavix) 75 MG DAILY FEED-TUBE Lactulose (LACTULOSE) 20 GM Q12HR FEED-TUBE Tamsulosin HCl (Flomax 0.4 mg) 0.8 MG DAILY FEED-TUBE Atorvastatin Calcium (LIPITOR) 40 MG BEDTIME FEED-TUBE Polyethylene Glycol (MIRALAX) 17 GM Q12H PO Metoprolol Tartrate (LOPRESSOR) 50 MG Q8HR FEED-TUBE Senna/Docusate Sodium (SENOKOT S) 1 TAB Q12H FEED-TUBE Insulin Human Lispro (HUMALOG) 0 Q6HR SUBQ (DC) Dextrose/Water (DEXTROSE 10% IN WATER) 125 ML ASDIR PRN IV (CKD) Dextrose/Water (DEXTROSE 10% IN WATER) 250 ML ASDIR PRN IV (CKD) Glucagon (GLUCAGON) 1 MG ASDIR PRN IM Insulin Glargine (Semglee) 20 UNIT DAILY SUBQ Mupirocin (BACTROBAN 2% 22 GM OINTMENT) 1 APPLIC BID NASAL Metronidazole/Sodium Chloride (metroNIDAZOLE 500MG/NS 100ML) 100 ML Q12H IV Sodium Chloride (SODIUM CHLORIDE 0.9%) 250 ML BOLUS PRN IV Ceftriaxone Sodium (ROCEPHIN) 2,000 MG Q24H IV Sodium Chloride (SODIUM CHLORIDE) 20 MLLatanoprost (XALATAN 2.5 ML OPHTH SOLN) 1 DROP BEDTIME EACH EYE Timolol Maleate (TIMOPTIC 0.5% 5 ML OPHTH SOLN) 1 DROP BID EACH EYE Brimonidine Tartrate (Alphagan-P 0.2% 5 ML OPHTH SOLN) 1 DROP Q8HR EACH EYE Hydralazine HCl (APRESOLINE) 10 MG Q6H PRN PRN IV Ondansetron HCl (ZOFRAN) 4 MG Q4H PRN PRN IV Dietitian nutrition assessmentThe data set between the solid lines has been imported from the dietitian's assessment. BMI Calculated: 27.9Nutrition related diagnosis: OverweightNutrition diagnosis details: BMI 25-29.9Nutrition problem: Inadequate oral intakeNutrition etiology: PT LETHARGIC /SWALLOWING Nutrition signs and symptoms: ENTERAL NUTRITION TO MEET , ENERGY NEEDS Nutrition prescription: RECOMMEND: VITAL AF@ 68 MLS WILL PROVIDE: GMS/1362 MLS FW/DAILY FOLLOW ENVIRONMENTAL PROTECTION ECONOMIST FOR DIET ADVANCEMENT Dietitian name: Rohan Sarah, DIETAssessment completed: 08/09/23 ResultsFindings/Data:Laboratory Tests 08/10/23 0401:[Embedded Image Not Available]Laboratory Tests 08/09 08/09 08/09 08/09 08/08 1234 0953 0634 1501 4898 Chemistry Sodium (134 - 147 mEq/L) 147 Potassium (3.4 - 5.0 mEq/L) 3.6 Chloride (100 - 108 mEq/L) 118 H Carbon Dioxide (21 - 33 mEq/l) 20 L Anion Gap (0 - 20) 12 BUN (7 - 25 mg/dL) 18 Creatinine (0.6 - 1.3 mg/dL) 1.0 Glomerular Filtr Rate (70 - 80) 81.0 H Glucose (77 - 141 mg/dL) 159 H POC Glucose (70 - 110 MG/DL) 206 H 193 H 139 H 117 H Calcium (8.0 - 10.5 mg/dL) 8.1 08/08 1732 Chemistry POC Glucose (70 - 110 MG/DL) 106 Laboratory Tests 08/09 0401 Hematology WBC (4.5 - 11.0 x10 3/uL) 12.2 H RBC (4.00 - 5.60 x10 6/uL) 2.94 L Hgb (12.5 - 16.9 g/dL) 8.8 L Hct (37.5 - 50.7 %) 26.5 L MCV (81.0 - 99.0 fL) 90.1 MCH (27.0 - 33.0 pg) 29.9 MCHC (33.0 - 37.0 g/dL) 33.2 RDW (11.5 - 14.5 %) 14.6 H Plt Count (150 - 400 x10 3/uL) 315 MPV (7.0 - 9.0 fL) 10.7 H Neut % (Auto) (56.0 - 77.0 %) 73.0 Lymph % (Auto) (14.0 - 32.0 %) 17.2 Evans % (Auto) (4.8 - 9.0 %) 7.4 Eos % (Auto) (0.3 - 3.7 %) 1.5 Baso % (Auto) (0.0 - 2.0 %) 0.2 Neut # (Auto) (2.0 - 7.6 x10 3/uL) 8.86 H Lymph # (Auto) (1.0 - 3.8 x10 3/uL) 2.09 Evans # (Auto) (0.1 - 0.8 x10 3/uL) 0.90 H Eos # (Auto) (0.0 - 0.2 x10 3/uL) 0.18 Baso # (Auto) (0.0 - 0.2 x10 3/uL) 0.03 Abs Immat Gran (auto) (0.00 - 0.03 x10 3/uL) 0.09 H Immature Gran % (0.0 - 2.0 %) 0.7 Nucleated RBC % (0 - 0 %) 0.2 H Nucleated RBCs # (Man) (0.0 - 0.1 x10 3/uL) 0.02 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 now w/ tachycardia, fevers, and bacteremia, w/ worsening AMS and supsected ischemic stroke-s/p IR drainage of liver abscess and gallbladder, drainage bilious today in IR drain, C tube bilious/bloody, hgb 8.8 (9.5), stable, pt on DAPT, cont to monitor-CTA this 08/07 w/o obvious bleed, drains appear roughly in proper position-cont IV abx, ID on board, appreciate recs-endocrine consulted for hyperglycemia, which continues to be elevated, appreciate input-neurology consulted for AMS, stroke workup, r/o other causes, appreciate input-cardiology consulted, appreciate input-given AMS, SBFT placed, recommend ENVIRONMENTAL PROTECTION ECONOMIST eval when more lucid for swallow eval andadvance diet as tolerated when acute issues have resolved-pt will need interval cholecystectomy in the future, currently controlled with cholecystostomy tube and IR drain for liver abscess, given recent stroke, recentPCI on DAPT and bacteremia, not a good operative candidate currentlydispo: cont icu care at 1712 RPT #:[id number] OF REPORTPRProgress [id number]:03:00G.[id number] for patient pbvkCIZKPMUFPRWBYL0717-04-24Q00:12:37 [facility] 2023-08-10 14:48:00 [id number]+wpa+X QZGqIwLALbERd4lDbxl S/Pv0Ym8TggOC8sS92949-28-28L58:48:00 [facility] ([facility])Infectious Dis. Progress NoteREPORT#:[id number] REPORT STATUS: SignedREPORT INITIALIZATION DATE:08/10/23 TIME: 1448 PATIENT: MISSY CANALES W UNIT #: [id number]#: [id number] ROOM/BED: G286-8JCH: 53 AGE: 68 SEX: M ATTEND: Raphael Ly MDA AUTHOR: Jv Colvin NPREPT SERVICE DT/TIME: 08/10/23 1448* ALL edits or amendments must be made on the electronic/computer document * SubjectiveChief complaint:Abd pain, N/V F/U BacteremiaPatient reports:Yes: feeling better. No: complaints, abdominal pain, back pain, bowel movement,burning with urination, cough, diarrhea, fever, headache, nausea, pain, pain controlled, shortness of breath, vomiting, wheezing. Nursing reports:No: complaints. Objective GeneralVS/I O:Vital SignsDate Temp Pulse Resp B/P B/P Mean Pulse Ox QvG582/14-08/09 98.8-100.1 82-112 20-37 115-170/51-74 74-97 89-100 Last Documented: Result Date Time B/P 170/62 08/09 1431 B/P Mean 89 08/09 1431 Pulse 93 08/09 1431 Resp 27 08/09 1431 Pulse Ox 89 08/09 1401 Temp 98.8 08/09 0800 O2 Flow Rate 1 08/07 1600 O2 Delivery Nasal cannula 08/07 1425 FiO2 40 08/07 0752 Vital Signs: Date Time Temp Pulse Resp B/P B/P Pulse O2 O2 Flow FiO2 Mean Ox Delivery Rate 08/09 1431 93 27 170/62 89 / 1401 99 25 142/52 75 89 08/09 1331 98 28 134/59 85 90 08/09 1301 96 25 127/70 83 100 08/09 1230 88 25 135/65 92 98 08/09 1201 88 23 128/55 79 96 08/09 1131 89 21 150/66 95 100 08/09 1101 90 22 116/55 79 99 08/09 1030 91 23 127/55 79 96 08/09 1001 92 24 122/64 85 100 03/ 0931 87 24 129/58 84 99 / 0901 84 22 144/63 91 99 03/ 0831 83 25 133/59 85 99 / 0801 83 26 158/63 90 100 08/09 0800 98.8 08/09 0730 85 21 115/69 85 100 03/15 0700 83 24 126/59 85 100 03/15 0512 83 23 100 03/15 0500 88 25 141/60 86 100 03/15 0430 101 26 129/68 84 99 03/15 0401 98 24 134/57 80 100 03/15 0400 99.3 03/15 0400 97 22 100 03/15 0331 98 25 122/63 84 100 03/15 0330 97 24 100 03/15 0301 110 27 153/67 97 99 03/15 0300 112 37 98 03/15 0231 98 24 136/51 74 99 03/15 0201 100 26 122/57 82 100 03/15 0131 100 24 126/60 86 100 03/15 0130 100 24 100 03/15 0101 93 25 125/59 85 100 03/15 0100 93 24 100 03/15 0031 97 24 121/74 90 100 03/15 0030 91 25 99 03/15 0001 88 24 137/59 85 100 03/15 0000 99.9 03/15 0000 92 22 100 03/14 2331 93 24 132/59 85 100 03/14 2330 93 24 100 03/14 2301 88 27 123/56 80 100 03/14 2300 88 24 100 03/14 2231 91 24 121/58 83 100 03/14 2230 91 25 100 03/14 2201 88 29 133/59 85 100 03/14 2200 90 20 100 03/14 2000 100.1 03/14 1900 99 26 100 03/14 1830 100 24 123/61 88 100 03/14 1801 101 21 126/58 84 100 03/14 1800 100 23 100 03/14 1731 95 24 126/56 80 100 03/14 1730 96 23 100 03/14 1701 92 22 132/61 88 99 03/14 1700 92 22 100 03/14 1631 88 23 144/66 95 100 03/14 1630 88 20 100 03/14 1601 82 25 136/58 83 100 03/14 1600 98.9 03/14 1600 84 21 100 03/14 1530 86 23 141/61 88 100 03/14 1501 86 25 136/60 87 100 03/14 1500 85 20 100 24 hour I O ending at 0700: 15 0700 03/14 1900 Intake Total 2336.00 Output Total 1000 1200 Balance -1000 1136.00 Intake, Free 1921 Water Intake, IV 100.00 Intake, Other 100 Intake, Tube 215 Feeding Number 2 Incontinent Voids Output, Urine 1000 1200 PATIENT WEIGHT: Weight (lb): 177Weight (oz): 14.61Weight (kg): 80.700 Physical ExamGeneral appearance: alert, awakeWound/incision: Location:Cholecystostomy tubeRUQ drainHead/Eyes: atraumatic, normocephalicCardiovascular: tachycardia, no murmurRespiratory: clear to auscultation, aerating well, symmetric expansionAbdomen: non-tender, soft, no distention, percutaneous drains in place in RUQExtremities: no cyanosis, no edemaNeuro/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: alertSkin: dry, no rash ResultsFindings/Data:Laboratory Tests 08/09 08/09 08/09 08/09 08/08 1234 0953 0634 0401 2358 Chemistry Sodium (134 - 147 mEq/L) 147 Potassium (3.4 - 5.0 mEq/L) 3.6 Chloride (100 - 108 mEq/L) 118 H Carbon Dioxide (21 - 33 mEq/l) 20 L Anion Gap (0 - 20) 12 BUN (7 - 25 mg/dL) 18 Creatinine (0.6 - 1.3 mg/dL) 1.0 Glomerular Filtr Rate (70 - 80) 81.0 H Glucose (77 - 141 mg/dL) 159 H POC Glucose (70 - 110 MG/DL) 206 H 193 H 139 H 117 H Calcium (8.0 - 10.5 mg/dL) 8.1 08/08 1732 Chemistry POC Glucose (70 - 110 MG/DL) 106 Laboratory Tests 08/09 0401 Hematology WBC (4.5 - 11.0 x10 3/uL) 12.2 H RBC (4.00 - 5.60 x10 6/uL) 2.94 L Hgb (12.5 - 16.9 g/dL) 8.8 L Hct (37.5 - 50.7 %) 26.5 L MCV (81.0 - 99.0 fL) 90.1 MCH (27.0 - 33.0 pg) 29.9 MCHC (33.0 - 37.0 g/dL) 33.2 RDW (11.5 - 14.5 %) 14.6 H Plt Count (150 - 400 x10 3/uL) 315 MPV (7.0 - 9.0 fL) 10.7 H Neut % (Auto) (56.0 - 77.0 %) 73.0 Lymph % (Auto) (14.0 - 32.0 %) 17.2 Evans % (Auto) (4.8 - 9.0 %) 7.4 Eos % (Auto) (0.3 - 3.7 %) 1.5 Baso % (Auto) (0.0 - 2.0 %) 0.2 Neut # (Auto) (2.0 - 7.6 x10 3/uL) 8.86 H Lymph # (Auto) (1.0 - 3.8 x10 3/uL) 2.09 Evans # (Auto) (0.1 - 0.8 x10 3/uL) 0.90 H Eos # (Auto) (0.0 - 0.2 x10 3/uL) 0.18 Baso # (Auto) (0.0 - 0.2 x10 3/uL) 0.03 Abs Immat Gran (auto) (0.00 - 0.03 x10 3/uL) 0.09 H Immature Gran % (0.0 - 2.0 %) 0.7 Nucleated RBC % (0 - 0 %) 0.2 H Nucleated RBCs # (Man) (0.0 - 0.1 x10 3/uL) 0.02 Results: labs reviewed, vital signs reviewed, vital signs stable, current med profile rev'd Diagnosis, Assessment PlanFree Text A P:Sepsis, resolved--Fever, tachycardia, leukocytosis--Source: BacteremiaBacteremia--Citrobacter--Source: BiliaryLiver abscess--MRCP showed 4.6 x 3.6 x 3.0 thick walled cystic lesion/fluid collection liver abutting GB fossa--S/P IR drain 08/05, cx CitrobacterAcute cholecystitis--S/P IR placed cholecystotomy tube ., cx CitrobacterAcute stroke--MRI (+) subacute Left guo radiata--CTA neck (+) high grade anocvtavVGUPK4YLKTXR On Rocephin/Flagyl, abx started 08/02 (Day 7)Pt will need chcf abx for liver abscess, with f/u CT to ensure resolution of abcess prior to stopping abx Seen and examined with Dr BrothersDM was done entirely by Dr Hobson discussed with: patient, spouse/partner, nurse at 1449 at 2249 RPT #:[id number] OF REPORTPRProgress [id number]:48:00G.[id number] for patient gcjkUUTPCZGQMFEVDI4378-73-19O23:51:43 [facility] 2023-08-10 13:47:00 [id number] Bd9seCKE3gJG4rgq3N/ /r4CWdkSRfAF3PakY9612-57-28O93:47:00 [facility])Endocrinology Progress NoteREPORT#:[id number] REPORT STATUS: SignedREPORT INITIALIZATION DATE:08/10/23 TIME: 134 PATIENT: MISSY CANALES UNIT #: [id number]#: [id number] [address] [birth year] AGE: 68 SEX: M ATTEND: Raphael Ly AUTHOR: Agus Duckworth APRNNPREPT SERVICE DT/TIME: 08/10/23 1215* ALL edits or amendments must be made on the electronic/computer document * SubjectiveChief complaint:f/u DM IITF Objective GeneralVS:Last Documented: Result Date Time Pulse Ox 100 08/09 0512 Pulse 83 08/09 0512 Resp 23 08/09 0512 B/P 141/60 08/09 0500 B/P Mean 86 08/09 0500 Temp 99.3 08/09 0400 O2 Flow Rate 1 08/07 1600 O2 Delivery Nasal cannula 08/07 1425 FiO2 40 08/07 0752 PATIENT WEIGHT: Weight (lb): 177Weight (oz): 14.61Weight (kg): 80.700 Medications:Active Meds + DC'd Last 24 HrsBisacodyl (DULCOLAX) 10 MG DAILY PRN PRN RECTAL Bisacodyl (DULCOLAX) 10 MG ONCE ONE RECTAL (DC) Allopurinol (ZYLOPRIM) 300 MG DAILY FEED-TUBE Aspirin (ASPIRIN) 81 MG DAILY FEED-TUBE Clopidogrel Bisulfate (Plavix) 75 MG DAILY FEED-TUBE Lactulose (LACTULOSE) 20 GM Q12HR FEED-TUBE Tamsulosin HCl (Flomax 0.4 mg) 0.8 MG DAILY FEED-TUBE Atorvastatin Calcium (LIPITOR) 40 MG BEDTIME FEED-TUBE Polyethylene Glycol (MIRALAX) 17 GM Q12H PO Metoprolol Tartrate (LOPRESSOR) 50 MG Q8HR FEED-TUBE Senna/Docusate Sodium (SENOKOT S) 1 TAB Q12H FEED-TUBE Insulin Human Lispro (HUMALOG) 0 Q6HR SUBQ Dextrose/Water (DEXTROSE 10% IN WATER) 125 ML ASDIR PRN IV (CKD) Dextrose/Water (DEXTROSE 10% IN WATER) 250 ML ASDIR PRN IV (CKD) Glucagon (GLUCAGON) 1 MG ASDIR PRN IM Insulin Glargine (Semglee) 20 UNIT DAILY SUBQ Mupirocin (BACTROBAN 2% 22 GM OINTMENT) 1 APPLIC BID NASAL Metronidazole/Sodium Chloride (metroNIDAZOLE 500MG/NS 100ML) 100 ML Q12H IV Sodium Chloride (SODIUM CHLORIDE 0.9%) 250 ML BOLUS PRN IV Ceftriaxone Sodium (ROCEPHIN) 2,000 MG Q24H IV Sodium Chloride (SODIUM CHLORIDE) 20 MLLatanoprost (XALATAN 2.5 ML OPHTH SOLN) 1 DROP BEDTIME EACH EYE Timolol Maleate (TIMOPTIC 0.5% 5 ML OPHTH SOLN) 1 DROP BID EACH EYE Brimonidine Tartrate (Alphagan-P 0.2% 5 ML OPHTH SOLN) 1 DROP Q8HR EACH EYE Hydralazine HCl (APRESOLINE) 10 MG Q6H PRN PRN IV Ondansetron HCl (ZOFRAN) 4 MG Q4H PRN PRN IV Dietitian nutrition assessmentThe data set between the solid lines has been imported from the dietitian's assessment. BMI Calculated: 27.9Nutrition related diagnosis: OverweightNutrition diagnosis details: BMI 25-29.9Nutrition problem: Inadequate oral intakeNutrition etiology: PT LETHARGIC /SWALLOWING Nutrition signs and symptoms: ENTERAL NUTRITION TO MEET , ENERGY NEEDS Nutrition prescription: RECOMMEND: VITAL AF@ 68 MLS WILL PROVIDE: 2016/ GMS/1362 MLS FW/DAILY FOLLOW ENVIRONMENTAL PROTECTION ECONOMIST FOR DIET ADVANCEMENT Dietitian name: Rohan Sarah, DIETAssessment completed: 08/09/23 Physical ExamGeneral appearance: alert, awake, orientedHEENT: normocephalicNeck: suppleCardiovascular: regular rate rhythmRespiratory: on oxygenAbdomen: softGenitourinary: not indicatedExtremities: warmNeuro/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: alertSkin: warmFindings/data:Laboratory Tests: 08/09 08/09 08/09 08/08 08/08 [id number] Sodium (134 - 147 mEq/L) 147 Potassium (3.4 - 5.0 mEq/L) 3.6 Chloride (100 - 108 mEq/L) 118 H Carbon Dioxide (21 - 33 mEq/l) 20 L Anion Gap (0 - 20) 12 BUN (7 - 25 mg/dL) 18 Creatinine (0.6 - 1.3 mg/dL) 1.0 Glomerular Filtr Rate (70 - 80) 81.0 H Glucose (77 - 141 mg/dL) 159 H POC Glucose (70 - 110 MG/DL) 193 H 139 H 117 H 106 Calcium (8.0 - 10.5 mg/dL) 8.1Hematology WBC (4.5 - 11.0 x10 3/uL) 12.2 H RBC (4.00 - 5.60 x10 6/uL) 2.94 L Hgb (12.5 - 16.9 g/dL) 8.8 L Hct (37.5 - 50.7 %) 26.5 L MCV (81.0 - 99.0 fL) 90.1 MCH (27.0 - 33.0 pg) 29.9 MCHC (33.0 - 37.0 g/dL) 33.2 RDW (11.5 - 14.5 %) 14.6 H Plt Count (150 - 400 x10 3/uL) 315 MPV (7.0 - 9.0 fL) 10.7 H Neut % (Auto) (56.0 - 77.0 %) 73.0 Lymph % (Auto) (14.0 - 32.0 %) 17.2 Evans % (Auto) (4.8 - 9.0 %) 7.4 Eos % (Auto) (0.3 - 3.7 %) 1.5 Baso % (Auto) (0.0 - 2.0 %) 0.2 Neut # (Auto) (2.0 - 7.6 x10 3/uL) 8.86 H Lymph # (Auto) (1.0 - 3.8 x10 3/uL) 2.09 Evans # (Auto) (0.1 - 0.8 x10 3/uL) 0.90 H Eos # (Auto) (0.0 - 0.2 x10 3/uL) 0.18 Baso # (Auto) (0.0 - 0.2 x10 3/uL) 0.03 Abs Immat Gran (auto) (0.00 - 0.03 0.09 Hx10 3/uL) Immature Gran % (0.0 - 2.0 %) 0.7 Nucleated RBC % (0 - 0 %) 0.2 H Nucleated RBCs # (Man) (0.0 - 0.1 0.02x10 3/uL) Laboratory Tests: 08/09 08/09 08/09 08/08 08/08 0953 0634 0401 2358 1732Chemistry Sodium (134 - 147 mEq/L) 147 Potassium (3.4 - 5.0 mEq/L) 3.6 Chloride (100 - 108 mEq/L) 118 H Carbon Dioxide (21 - 33 mEq/l) 20 L Anion Gap (0 - 20) 12 BUN (7 - 25 mg/dL) 18 Creatinine (0.6 - 1.3 mg/dL) 1.0 Glomerular Filtr Rate (70 - 80) 81.0 H Glucose (77 - 141 mg/dL) 159 H POC Glucose (70 - 110 MG/DL) 193 H 139 H 117 H 106 Calcium (8.0 - 10.5 mg/dL) 8.1Hematology WBC (4.5 - 11.0 x10 3/uL) 12.2 H RBC (4.00 - 5.60 x10 6/uL) 2.94 L Hgb (12.5 - 16.9 g/dL) 8.8 L Hct (37.5 - 50.7 %) 26.5 L MCV (81.0 - 99.0 fL) 90.1 MCH (27.0 - 33.0 pg) 29.9 MCHC (33.0 - 37.0 g/dL) 33.2 RDW (11.5 - 14.5 %) 14.6 H Plt Count (150 - 400 x10 3/uL) 315 MPV (7.0 - 9.0 fL) 10.7 H Neut % (Auto) (56.0 - 77.0 %) 73.0 Lymph % (Auto) (14.0 - 32.0 %) 17.2 Evans % (Auto) (4.8 - 9.0 %) 7.4 Eos % (Auto) (0.3 - 3.7 %) 1.5 Baso % (Auto) (0.0 - 2.0 %) 0.2 Neut # (Auto) (2.0 - 7.6 x10 3/uL) 8.86 H Lymph # (Auto) (1.0 - 3.8 x10 3/uL) 2.09 Evans # (Auto) (0.1 - 0.8 x10 3/uL) 0.90 H Eos # (Auto) (0.0 - 0.2 x10 3/uL) 0.18 Baso # (Auto) (0.0 - 0.2 x10 3/uL) 0.03 Abs Immat Gran (auto) (0.00 - 0.03 0.09 Hx10 3/uL) Immature Gran % (0.0 - 2.0 %) 0.7 Nucleated RBC % (0 - 0 %) 0.2 H Nucleated RBCs # (Man) (0.0 - 0.1 0.02x10 3/uL) Diagnosis, Assessment PlanFree Text A P:1.DM CZMqfM2c 8.2adjust Lantus continue SSI monitor glucose NPO DC Plan: Lantus, Humalog, and Farxiga; follow at next available appointment. 2.Abnormal thyroid functions 08/06 TSH 0.07 FT4 1 recheck in a couple of days 3.Suspected ischemic strokeMRI brain without contrastEchocardiogramTelemetryneurology following 4.Coronary artery diseasePCI on July 03, 2023Echocardiogram preserved LVEFdual antiplateletscardiology following 5. Elevated LFTsGI following 6.MRCP with complex cystic fluid collectionpost drainage surgery following at 1501 at 0810 RPT #:[id number] OF REPORTPRProgress [id number]:47:00G.[id number] for patient ubawAGBTKRDEPLWNEI9337-32-91T18:01:56 [facility] 2023-08-10 10:03:00 [id number]+a4 n68fI4q4R3pccB4mFgt 1OlM0cMxKT80lt32o3066-04-74N40:03:00 [facility] CenterNeu[facility] Progress NoteREPORT#:[id number] REPORT STATUS: SignedREPORT INITIALIZATION DATE:08/10/23 TIME: 100 PATIENT: MISSY CANALES UNIT #: [id number]#: [id number] [address]CCH: [address] AGE: 68 SEX: M ATTEND: Raphael yL MDADM AUTHOR: Skyler Monae MDREPT SERVICE DT/TIME: 08/10/23 1003* ALL edits or amendments must be made on the electronic/computer document * SubjectiveChief complaint:AMSHPI:NICOLE. Review of Systems Free Text ROS NotesFree Text ROS Notes:No change in R hemiplegia. ROS same. Objective Physical ExamNeuro comment:GEN: NAD, awake, confusedCVS: RRR, no carotid bruitCHEST: On BiPAP.ABD: Soft, NTTP NEUROMENTAL STATUS: awake, follows simple commands LANG/SPEECH: some fluent speech, follows simple commands CRANIAL NERVES:II: Pupils equal and reactive, no RAPD, no VF deficits, normal fundusIII, IV, : EOM intact, no gaze preference or deviation, no nystagmus.V: normal sensation in V1, V2, and V3 segments bilaterallyVII: no asymmetry, no nasolabial fold flatteningVIII: normal hearing to speechIX, X: normal palatal elevation, no uvular deviationXI: 5/5 head turn and 5/5 shoulder shrug bilaterallyXII: midline tongue protrusion MOTOR:Right upper extremity demonstrates trace distal movement to noxious stimulus, leftupper extremity spontaneously antigravity. Bilaterallower extremities demonstrate minimal movement to noxious stimuli. REFLEXES: 2/4 throughout, bilateral flexor planter response, no Genao's,no clonus SENSORY:As noted in motor portion COORD: Does not participate Diagnosis, Assessment PlanFree Text A P:Patient is 68-year-old male with a history of hypertension, hyperlipidemia, diabetes, and coronary artery disease who was hospitalized for cholecystitis presenting for evaluation of altered mental status. A1c 8.2LDL 92CTAIMPRESSION: High-grade stenosis involving the right M1 segment likely secondary to thrombus. Atherosclerotic disease within both carotid siphons with mild flow-limiting stenosis. Vessel irregularity of the distal intracranial vasculature with areas of severe flow-limiting stenosis in both cerebral arteries.TTE1. Left ventricle: The cavity size is normal. Wall thickness is normal. Systolic function is normal. The estimated ejection fraction is 55-60%. Wall motion is normal; there are no regional wall motion abnormalities. Grade I diastolic dysfunction.2. Right ventricle: The RV pressure during systole is 42 mm Hg.3. Left atrium: The atrium is mildly dilated.4. Mitral valve: There is mild regurgitation.5. Tricuspid valve: There is mild regurgitation.6. Pericardium, extracardiac: A small pericardial effusion is identified.MRI: IMPRESSION: Small focus of subacute ischemia in the left guo radiata. Chronic microvascular ischemic changes and diffuse cerebral volume loss. cerebral infarction due to occlusion and stenosis of a small arteryAltered mental statusIntracranial atherosclerosisCholecystitisHyperlipidemiaHypertensionDiabe tesAnemiaCoronary artery disease-normalize BP-ASA/plavix are home medications continue as long as he remains clear given falling Hgb. He has CAD s/p PCI. Duration of DAPT per cardiology-LDL goal <70-A1c goal <7%-Mimsersnxgnzwa-Vlahxtutk-B9x, lipid ukphl-Uljpdhocjyxq-AZV for BG control to [phone]-Bxpoeuu, B12, folate, TSH, ABG reviewed-PT/OT/ST when appropriate DVT ppx: LMWH vs SQH when clear at 0953 RPT #:[id number] OF REPORTPRProgress wfza2578-83-94C34:03:00G.[id number] for patient xoiwHWDIFWQTUEALYC3987-42-90G24:53:25 [facility] 2023-08-10 09:10:00 [id number]/uqxQdUW Hq9UjHuV+h52zbWLuuf cKttJX80ho1ilUpOi9510-87-97A92:10:00 [facility] CenterHospitalist Progress NoteREPORT#:[id number] REPORT STATUS: SignedREPORT INITIALIZATION DATE:08/10/23 TIME: 09 PATIENT: MISSY CANALES UNIT #: [id number]#: [id number] [address] AGE: 68 SEX: M ATTEND: Raphael Ly MDADM AUTHOR: Nellie Palmer MDREPT SERVICE DT/TIME: 08/10/23 0910* ALL edits or amendments must be made on the electronic/computer document * SubjectiveChief complaint:Abd pain, N/v Fever ConfusionExternal recordAwake alert, mental status much improvedHR better controlled, abd soft still somewhat distended, still w/ AMS, SBFT in place, TFs running, IR drain now bilious, C tube less bloody. Objective GeneralVS/I O:Vital Signs: Date Time Temp Pulse Resp B/P B/P Pulse O2 O2 Flow FiO2 Mean Ox Delivery Rate 03/15 0512 83 23 100 03/15 0500 88 25 141/60 86 100 03/15 0430 101 26 129/68 84 99 03/15 0401 98 24 134/57 80 100 03/15 0400 99.3 03/15 0400 97 22 100 03/15 0331 98 25 122/63 84 100 03/15 0330 97 24 100 03/15 0301 110 27 153/67 97 99 03/15 0300 112 37 98 03/15 0231 98 24 136/51 74 99 03/15 0201 100 26 122/57 82 100 03/15 0131 100 24 126/60 86 100 03/15 0130 100 24 100 03/15 0101 93 25 125/59 85 100 03/15 0100 93 24 100 03/15 0031 97 24 121/74 90 100 03/15 0030 91 25 99 03/15 0001 88 24 137/59 85 100 03/15 0000 99.9 03/15 0000 92 22 100 03/14 2331 93 24 132/59 85 100 03/14 2330 93 24 100 03/14 2301 88 27 123/56 80 100 03/14 2300 88 24 100 03/14 2231 91 24 121/58 83 100 03/14 2230 91 25 100 03/14 2201 88 29 133/59 85 100 03/14 2200 90 20 100 03/14 1999 100.1 03/14 1900 99 26 100 03/14 1830 100 24 123/61 88 100 03/14 1801 101 21 126/58 84 100 03/14 1800 100 23 100 03/14 1731 95 24 126/56 80 100 03/14 1730 96 23 100 03/14 1701 92 22 132/61 88 99 03/14 1700 92 22 100 03/14 1631 88 23 144/66 95 100 03/14 1630 88 20 100 03/14 1601 82 25 136/58 83 100 03/14 1600 98.9 03/14 1600 84 21 100 03/14 1530 86 23 141/61 88 100 03/14 1501 86 25 136/60 87 100 03/14 1500 85 20 100 03/14 1431 89 26 131/59 85 100 03/14 1430 89 23 100 03/14 1401 108 24 163/64 92 100 03/14 1400 108 26 100 08/08 1330 101 27 125/69 91 100 08/08 1301 101 26 126/82 95 100 08/08 1300 102 22 100 08/08 1231 109 27 133/65 92 100 08/08 1230 109 27 100 08/08 1201 118 24 142/62 89 100 08/08 1200 99.1 08/08 1200 110 27 100 08/08 1131 119 23 165/70 96 100 08/08 1130 122 21 100 08/08 1101 105 29 98/71 81 100 08/08 1100 110 26 100 08/08 1031 102 24 146/56 80 98 08/08 1030 98 24 100 08/08 1000 97 22 133/71 95 99 08/08 0930 94 21 127/65 90 100 24 hour I O ending at 0700: 08/09 0700 08/08 1900 Intake Total 2336.00 Output Total 1000 1200 Balance -1000 1136.00 Intake, Free 1921 Water Intake, IV 100.00 Intake, Other 100 Intake, Tube 215 Feeding Number 2 Incontinent Voids Output, Urine 1000 1200 PATIENT WEIGHT: Weight (lb): 177Weight (oz): 14.61Weight (kg): 80.700 Dietitian nutrition assessmentThe data set between the solid lines has been imported from the dietitian's assessment. BMI Calculated: 27.9Nutrition related diagnosis: OverweightNutrition diagnosis details: BMI 25-29.9Nutrition problem: Inadequate oral intakeNutrition etiology: PT LETHARGIC /SWALLOWING Nutrition signs and symptoms: ENTERAL NUTRITION TO MEET , ENERGY NEEDS Nutrition prescription: RECOMMEND: VITAL AF@ 68 MLS WILL PROVIDE: GMS/1362 MLS FW/DAILY FOLLOW ENVIRONMENTAL PROTECTION ECONOMIST FOR DIET ADVANCEMENT Dietitian name: Rohan Sarah, DIETAssessment completed: 08/09/23 Physical ExamHead/Eyes: atraumatic, normocephalic, PERRLAENT: moist mucosal membranes, normal dentitionCardiovascular: normal heart sounds, regular rate rhythmRespiratory: aerating well, symmetric expansion, no distressAbdomen: non-tender, normal bowel soundsGenitourinary: no bladder distention, no flank painExtremities: no clubbing, no cyanosisMusculoskeletal: no muscle spasmNeuro/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: alert, normal speech ResultsFindings/Data:Laboratory Tests 08/09 08/09 08/08 08/08 08/08 0634 0401 2358 1732 1056 Chemistry Sodium (134 - 147 mEq/L) 147 Potassium (3.4 - 5.0 mEq/L) 3.6 Chloride (100 - 108 mEq/L) 118 H Carbon Dioxide (21 - 33 mEq/l) 20 L Anion Gap (0 - 20) 12 BUN (7 - 25 mg/dL) 18 Creatinine (0.6 - 1.3 mg/dL) 1.0 Glomerular Filtr Rate (70 - 80) 81.0 H Glucose (77 - 141 mg/dL) 159 H POC Glucose (70 - 110 MG/DL) 139 H 117 H 106 160 H Calcium (8.0 - 10.5 mg/dL) 8.1 Laboratory Tests 08/09 0401 Hematology WBC (4.5 - 11.0 x10 3/uL) 12.2 H RBC (4.00 - 5.60 x10 6/uL) 2.94 L Hgb (12.5 - 16.9 g/dL) 8.8 L Hct (37.5 - 50.7 %) 26.5 L MCV (81.0 - 99.0 fL) 90.1 MCH (27.0 - 33.0 pg) 29.9 MCHC (33.0 - 37.0 g/dL) 33.2 RDW (11.5 - 14.5 %) 14.6 H Plt Count (150 - 400 x10 3/uL) 315 MPV (7.0 - 9.0 fL) 10.7 H Neut % (Auto) (56.0 - 77.0 %) 73.0 Lymph % (Auto) (14.0 - 32.0 %) 17.2 Evans % (Auto) (4.8 - 9.0 %) 7.4 Eos % (Auto) (0.3 - 3.7 %) 1.5 Baso % (Auto) (0.0 - 2.0 %) 0.2 Neut # (Auto) (2.0 - 7.6 x10 3/uL) 8.86 H Lymph # (Auto) (1.0 - 3.8 x10 3/uL) 2.09 Evans # (Auto) (0.1 - 0.8 x10 3/uL) 0.90 H Eos # (Auto) (0.0 - 0.2 x10 3/uL) 0.18 Baso # (Auto) (0.0 - 0.2 x10 3/uL) 0.03 Abs Immat Gran (auto) (0.00 - 0.03 x10 3/uL) 0.09 H Immature Gran % (0.0 - 2.0 %) 0.7 Nucleated RBC % (0 - 0 %) 0.2 H Nucleated RBCs # (Man) (0.0 - 0.1 x10 3/uL) 0.02 Free Text Obj NotesFree Text Obj Notes:ResultsFindings/Data:Laboratory Tests 08/08 08/08 08/07 08/07 08/07 0507 5648 2308 1433 1139 Chemistry Sodium (134 - 147 mEq/L) 154 H 155 H Potassium (3.4 - 5.0 mEq/L) 3.7 3.9 Chloride (100 - 108 mEq/L) 123 H 124 H Carbon Dioxide (21 - 33 mEq/l) 20 L 22 Anion Gap (0 - 20) 14 13 BUN (7 - 25 mg/dL) 20 26 H Creatinine (0.6 - 1.3 mg/dL) 1.0 0.7 Glomerular Filtr Rate (70 - 80) 81.0 H 99.1 H Glucose (77 - 141 mg/dL) 146 H 184 H POC Glucose (70 - 110 MG/DL) 119 H 135 H 162 H Calcium (8.0 - 10.5 mg/dL) 8.4 8.1 Laboratory Tests 08/08 08/07 08/07 7418 2039 1433 Hematology Hgb (12.5 - 16.9 g/dL) 9.6 L 9.3 L 9.5 L Hct (37.5 - 50.7 %) 28.7 L 27.9 L 28.3 L Radiology data:Recent Impressions:CAT SCAN - CT ABD PELVIS W WO CONT 08/07 1736 Report Impression - Status: SIGNED Entered: 08/08/20231736 IMPRESSION:No evidence of acute hemorrhage within the the liver and thegallbladder.Hyperdense contents within the gallbladder and 2nd segment of theduodenum may represent contrast and/or blood products.Large amount of stool within the rectum. LOCATION: L4Cbhvcsltef By: Anthony Degroot M.D. Treatment Prophylaxis Treatment ProphylaxisOxygen: room air Diagnosis, Assessment Plan Free Text DxA P NotesFree text DxA P notes:Assessment - Acute Cholangitis/Cholelithiasis with distended gallbladder.- Elevated LFTs and Bilirubin due to Possible Acute Chloangitis.- Elevated Troponin could be demand Ischemia.- Abd pain and N/V.- Confusion- ARELY.- Hyperglycemia.- Sepsis; tachycardia, Bcx Gram neg rods- HX of HTN/DM type II/HLD and CAD s/p stent. Plan-monitoring and evaluation advisor, strict vital monitor, strict I O's, monitor, replace electrolytes-Status post cholecystostomy tube placement, IV ceftriaxone/IV Flagyl, GI consulted-Insulin sliding scale-s/p IR drainage of liver abscess and gallbladder, drainage bilious today in IR drain, C tube bilious/bloody, hgb 8.8 (9.5), stable, pt on DAPT, cont to monitor-CTA this 08/07 w/o obvious bleed, drains appear roughly in proper position-cont IV abx, ID on board-Advance diet as per surgery-Continue aspirin, Plavix-Cholecystectomy eventually needed however recent stroke, recent PCI/bacteremia,high risk for procedure-Stroke, neurology following at 0650 [facility] #:[id number] OF REPORTPRProgress xdvv8756-38-02C26:10:00G.[id number] for patient qgkrWNHKDDVWGUAJIW1024-82-41P85:50:23 [facility] 2023-08-10 09:05:00 [id number]P o8KGtELG1N/Cmn2D42o YLmCIy5XiKulE8xAu3013-34-88W37:05:00 [facility] ([facility])Hospitalist Progress NoteREPORT#:[id number] REPORT STATUS: SignedREPORT INITIALIZATION DATE:08/10/23 TIME: 904 PATIENT: MISSY CANALES UNIT #: [id number]#: [id number] [address]BLQ: 53 AGE: 68 SEX: M ATTEND: Raphael Ly MDA AUTHOR: Nellie Palmer MDREPT SERVICE DT/TIME: 08/09/23904* ALL edits or amendments must be made on the electronic/computer document * SubjectiveChief complaint:Abd pain, N/v Fever Confusion Free Text Subj NotesFree Text Subj Notes:08/08 Mental status much improved, awake, on 2 L of oxygen via nasal cannula Review of SystemsAll systems rev neg: except as noted Objective GeneralVS/I O: Objective GeneralVS/I OLast Documented: Result Date Time Pulse Ox 100 08/08 06 B/P 130/60 08/08 06 B/P Mean 86 08/08 0601 Pulse 85 08/08 0601 Resp 19 08/08 0601 Temp 37.5 08/08 0400 O2 Flow Rate 1 08/07 1600 O2 Delivery Nasal cannula 08/07 1425 FiO2 40 08/07 0752 24 hour I O ending at 0700: 08/08 0700 08/07 1900 Intake Total 1071.00 Output Total 700 820 Balance -700 251.00 Intake, IV 1051.00 Intake, Tube 20 Irrigant Output, 20 Drainage Output, Urine 700 800 PATIENT WEIGHT: Weight (lb): 177Weight (oz): 14.61Weight (kg): 80.700 Physical ExamGeneral appearance: Confused, awakeHead/eyes: atraumatic, clear cornea, normal conjunctiva/sclera, PERRLENT: dry mucosal membraneNeck: normal thyroid, no masses or swellingCardiovascular: tachycardia, no rubRespiratory: rhonchi, symmetric expansion, no distressAbdomen:(Percutanous drain in place), soft, non-tenderExtremities: abnormal capillary refill, no clubbing, no cyanosis, no edemaMusculoskeletal normal inspectionNeuro/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: altered mental status, alert, right upper hemiplegia Skin: dry, intact, normal color, normal temperature, no rashPsychiatry: unable to evaluate Free Text Obj NotesFree Text Obj Notes:ResultsFindings/Data:Laboratory Tests 08/08 08/08 08/07 08/07 08/07 0507 0348 2308 1433 1139 Chemistry Sodium (134 - 147 mEq/L) 154 H 155 H Potassium (3.4 - 5.0 mEq/L) 3.7 3.9 Chloride (100 - 108 mEq/L) 123 H 124 H Carbon Dioxide (21 - 33 mEq/l) 20 L 22 Anion Gap (0 - 20) 14 13 BUN (7 - 25 mg/dL) 20 26 H Creatinine (0.6 - 1.3 mg/dL) 1.0 0.7 Glomerular Filtr Rate (70 - 80) 81.0 H 99.1 H Glucose (77 - 141 mg/dL) 146 H 184 H POC Glucose (70 - 110 MG/DL) 119 H 135 H 162 H Calcium (8.0 - 10.5 mg/dL) 8.4 8.1 Laboratory Tests 08/08 08/07 08/07 0348 2039 1433 Hematology Hgb (12.5 - 16.9 g/dL) 9.6 L 9.3 L 9.5 L Hct (37.5 - 50.7 %) 28.7 L 27.9 L 28.3 L Radiology data:Recent Impressions:CAT SCAN - CT ABD PELVIS W WO CONT 08/07 1736 Report Impression - Status: SIGNED Entered: 08/08/20231736 IMPRESSION:No evidence of acute hemorrhage within the the liver and thegallbladder.Hyperdense contents within the gallbladder and 2nd segment of theduodenum may represent contrast and/or blood products.Large amount of stool within the rectum. LOCATION: T9Flfkdhzcmq By: Anthony Degroot M.D. Diagnosis, Assessment PlanAdditional comments:08/06 BIPAP support, 03/01 40%, 7.33 29 173 15, wean off as tolerated, grant tubesin place, lactic acid trending up, ceftriaxone and flagyl, CT brain negative, MRI shows subacute ischemia, neurology on board. Hypergycemia 08/07 Off BIPAP support, nasal cannula, grant tube in place, CT ab pelvis to confirm placement, lactic acid trended down, c/w abx. MRI shows subacute ischemia, right upper extremity remains flaccid, aphasia persistent, neurology on board. 08/08 Neuro status unchanged, right upper ext flaccid, expressie aphasia, neuro on board, appreciate recs, room air, TF resumed, doppler right upp ext pending to rule out DVT negative. Free Text DxA P NotesFree text DxA P notes: Assessment - Acute Cholangitis/Cholelithiasis with distended gallbladder.- Elevated LFTs and Bilirubin due to Possible Acute Chloangitis.- Elevated Troponin could be demand Ischemia.- Abd pain and N/V.- Confusion- ARELY.- Hyperglycemia.- Sepsis; tachycardia, Bcx Gram neg rods- HX of HTN/DM type II/HLD and CAD s/p stent. Plan:monitoring and evaluation advisor, strict vital monitor, strict I O's, monitor, replace electrolytes continue oxygen via nasal cannula, incentive spirometry Status postcholecystostomy tube placement Ceftriaxone/ Flagyl per ID recommendations-GI consulted and following patient Hyponatremia, continue IV fluid, avoid nephrotoxic drugs Insulin sliding scale, continue Lantus Right-sided flaccid MRI brain showed small focus of subacute ischemic stroke in left guo radiator. Neurology following at 0910 [facility] #:[id number] OF REPORTPRProgress mkmc1791-67-67P11:05:00G.[id number] for patient kqveFYVQDEJGVKFSAJ7190-39-95U70:11:07 [facility] 2023-08-10 07:38:00 [id number]/W/g8hpv/FrSPvSMzMUM S6Zengnjp1Vn5/4tk0o nTAD3ir6ekf5sD3vS3602-11-21V25:38:00 [facility] ([facility])Gastroenterology Progress NoteREPORT#:[id number] REPORT STATUS: SignedREPORT INITIALIZATION DATE:08/10/23 TIME: 737 PATIENT: MISSY CANALES UNIT #: [id number]#: [id number] [facility] AGE: 68 SEX: M ATTEND: Raphael Ly MDADM AUTHOR: Lisa Cancino MDREPT SERVICE DT/TIME: 08/10/23737* ALL edits or amendments must be made on the electronic/computer document * SubjectiveChief complaint:Elevated LFtsHPI:68 year old man s/p cardiac stents 2 weeks ago who was sent to the hospital withelevated LFTs and possible acute cholecystitis. Pt had a stenet recently placed and was started on DAPT. Pt had labs showing elevated LFTs and was sent here forevaluation. Labs showed leukocytosis 15k. Elevated Tbili 3.7. Dbili 2.8. AST 79,ALT 105 and ALP 225. RUQ U/S showed possible cholecystitis and normal CBD of 4 mm in diatmeter. Pt denies pain. No dark urine or peyton-color stool 08/03; patient feels well. MRCP reviewed. No choledocholithiasis. Fluid collection at the liver could be related secondary to gallbladder perforation. LFTs and white count are down. 08/04: Plan for IR for cholecystostomy tube placement. LFts stable. WBC elevated.Was confused this am but improving. NO pain. No fevers. Added flagyl to his Abx regimen 08/05: NO new complaints. IR for abscess drain and cholecystostomy tube 08/06: Transferred overnight to ICU due to AMS. S/P IR with cholecystostomy tube and abscess drain 08/07: severely constipated. NGT in with feeds. drains in. More awake today and oriented. right sided weakness likely acute stroke. MRI brain reviewed- small stroke. KUB reviewed 08/08: Doing better according to . Sheldon removed. Still on feeds 08/09: Feeds at 20 ml/hr. Still no BM Objective Physical ExamHEENT: EOMICardiovascular: normal heart soundsRespiratory: clear to auscultationAbdomen: non-tenderExtremities: no edema Diagnosis, Assessment PlanProblem List/A P: 1. Elevated LFTs Free Text A P:cholestatic pattern. CBD normal on RuQ U/S MRCP showed no evidence of choledocholithiasis.Large fluid collection within the liver could be secondary to gallbladder perforation.Recommend surgical evaluation again.Continue with antibiotics. Add flagyl s/p cholecystostomy tube and drainage of cystic fluid collection. Awaiting culture Surgery consultation reviewed. Agree with plan Acute strokeconstipation: bowel regimen. Will start suppositories Will follow at 0739 RPT #:[id number] OF REPORTPRProgress wxop5366-29-25G44:38:00G.[id number] for patient aistWTJKQFLFSAKHOG1402-59-54Q12:40:01 [facility] 2023-08-09 20:39:00 [id number]/cskPRcvPjpKdLZ FLORECITA+boItY8sc35xxCSQ HENBbF+ZQcwuGsiYp7031-32-06O39:39:00 [facility] ([facility])Surgical Oncology Progress NotREPORT#:[id number] REPORT STATUS: SignedREPORT INITIALIZATION DATE:08/09/23 TIME: 2038 PATIENT: MISSY CANALES UNIT #: [id number]#: [id number] [address] AGE: 68 SEX: M ATTEND: Raphael Ly MDA AUTHOR: Michael Lakhani MDREPT SERVICE DT/TIME: 08/09/232038* ALL edits or amendments must be made on the electronic/computer document * SubjectiveChief complaint:liver abscess w/ possible gallbladder fistulastrokeHPI:S: NAEO. abd still distended, but soft, wbc 14.5 (17.7), mildly tachycardia, AMSunchanged, cr 1.0, making urine, IR drain and C tube less bloody more bilious, hgb is relatively unchanged. PEGen: NADHEENT: normocephalic, atraumatic, anicteric sclera, SBFT in placechest; No resp distressCV: perfusing wellabd: S, NT, minimally distended, no HMS, no rebound or guarding, no previous scars noted; IR drains x2 w/ sanguinous and bilious outputext; WWPneuro: AMS Objective GeneralVS/I O:Last Documented: Result Date Time Temp 99.1 08/08 1200 Pulse Ox 100 08/08 0601 B/P 130/60 08/08 0601 B/P Mean 86 08/08 0601 Pulse 85 08/08 0601 Resp 19 08/08 0601 O2 Flow Rate 1 08/07 1600 O2 Delivery Nasal cannula 08/07 1425 FiO2 40 08/07 0752 Vital Signs Date Temp Pulse Resp B/P B/P Mean Pulse Ox FiO2 08/07-08/08 99.1-99.5 84-111 16-27 102-147/50-90 72-100 97-100 24 hour I O ending at 0700: 08/08 0700 08/07 1900 Intake Total 1071.00 Output Total 700 820 Balance -700 251.00 Intake, IV 1051.00 Intake, Tube 20 Irrigant Output, 20 Drainage Output, Urine 700 800 PATIENT WEIGHT: Weight (lb): 177Weight (oz): 14.61Weight (kg): 80.700 Medications:Active Meds + DC'd Last 24 HrsAllopurinol (ZYLOPRIM) 300 MG DAILY FEED-TUBE Aspirin (ASPIRIN) 81 MG DAILY FEED-TUBE Clopidogrel Bisulfate (Plavix) 75 MG DAILY FEED-TUBE Lactulose (LACTULOSE) 20 GM Q12HR FEED-TUBE Tamsulosin HCl (Flomax 0.4 mg) 0.8 MG DAILY FEED-TUBE Atorvastatin Calcium (LIPITOR) 40 MG BEDTIME FEED-TUBE Polyethylene Glycol (MIRALAX) 17 GM Q12H PO Metoprolol Tartrate (LOPRESSOR) 50 MG Q8HR FEED-TUBE Senna/Docusate Sodium (SENOKOT S) 1 TAB Q12H FEED-TUBE Insulin Human Lispro (HUMALOG) 0 Q6HR SUBQ Dextrose/Water (DEXTROSE 10% IN WATER) 125 ML ASDIR PRN IV (CKD) Dextrose/Water (DEXTROSE 10% IN WATER) 250 ML ASDIR PRN IV (CKD) Glucagon (GLUCAGON) 1 MG ASDIR PRN IM Insulin Glargine (Semglee) 20 UNIT DAILY SUBQ Mupirocin (BACTROBAN 2% 22 GM OINTMENT) 1 APPLIC BID NASAL Metronidazole/Sodium Chloride (metroNIDAZOLE 500MG/NS 100ML) 100 ML Q12H IV Sodium Chloride (SODIUM CHLORIDE 0.9%) 250 ML BOLUS PRN IV Ceftriaxone Sodium (ROCEPHIN) 2,000 MG Q24H IV Sodium Chloride (SODIUM CHLORIDE) 20 MLLatanoprost (XALATAN 2.5 ML OPHTH SOLN) 1 DROP BEDTIME EACH EYE Timolol Maleate (TIMOPTIC 0.5% 5 ML OPHTH SOLN) 1 DROP BID EACH EYE Brimonidine Tartrate (Alphagan-P 0.2% 5 ML OPHTH SOLN) 1 DROP Q8HR EACH EYE Hydralazine HCl (APRESOLINE) 10 MG Q6H PRN PRN IV Ondansetron HCl (ZOFRAN) 4 MG Q4H PRN PRN IV Dietitian nutrition assessmentThe data set between the solid lines has been imported from the dietitian's assessment. BMI Calculated: 27.9Nutrition related diagnosis: OverweightNutrition diagnosis details: BMI 25-29.9Nutrition problem: Inadequate oral intakeNutrition etiology: PT LETHARGIC /SWALLOWING Nutrition signs and symptoms: ENTERAL NUTRITION TO MEET , ENERGY NEEDS Nutrition prescription: RECOMMEND: VITAL AF@ 68 MLS WILL PROVIDE: 2016/126 GMS/1362 MLS FW/DAILY FOLLOW ENVIRONMENTAL PROTECTION ECONOMIST FOR DIET ADVANCEMENT Dietitian name: Rohan Sarah, DIETAssessment completed: 08/09/23 ResultsFindings/Data:Laboratory Tests 08/09/23 0348:[Embedded Image Not Available]Laboratory Tests 08/08 08/08 08/08 08/08 08/07 1732 1056 0507 0348 2308 Chemistry Sodium (134 - 147 mEq/L) 154 H Potassium (3.4 - 5.0 mEq/L) 3.7 Chloride (100 - 108 mEq/L) 123 H Carbon Dioxide (21 - 33 mEq/l) 20 L Anion Gap (0 - 20) 14 BUN (7 - 25 mg/dL) 20 Creatinine (0.6 - 1.3 mg/dL) 1.0 Glomerular Filtr Rate (70 - 80) 81.0 H Glucose (77 - 141 mg/dL) 146 H POC Glucose (70 - 110 MG/DL) 106 160 H 119 H 135 H Calcium (8.0 - 10.5 mg/dL) 8.4 Laboratory Tests 08/08 0348 Hematology Hgb (12.5 - 16.9 g/dL) 9.6 L Hct (37.5 - 50.7 %) 28.7 L 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 now w/ tachycardia, fevers, and bacteremia, w/ worsening AMS and supsected ischemic stroke-s/p IR drainage of liver abscess and gallbladder, drainage less bloody, hgb unchanged, pt on DAPT, cont to monitor-CTA this 08/07 w/o obvious bleed, drains appear roughly in proper position-cont IV abx, ID on board, appreciate recs-endocrine consulted for hyperglycemia, which continues to be elevated, appreciate input-neurology consulted for AMS, stroke workup, r/o other causes, appreciate input-cardiology consulted, appreciate input-given AMS, SBFT placed, recommend ENVIRONMENTAL PROTECTION ECONOMIST eval when more lucid for swallow eval andadvance diet as tolerated when acute issues have resolved-pt will need interval cholecystectomy in the future, currently controlled with cholecystostomy tube and IR drain for liver abscess, given recent stroke, recentPCI on DAPT and bacteremia, not a good operative candidate currentlydispo: cont icu care at 6602 RPT #:[id number] OF REPORTPRProgress [id number]:39:00G.[id number] for patient jcypSBEOTHXOMRWFXI8881-41-90Z57:46:33 [facility] 2023-08-09 15:21:00 [id number]/inTDtf 1D0wImrpR9VYCTELuw0 AfyKHAH6eHgf++aE09601-86-14W05:21:00 [facility] ([facility])Cardiology Progress NoteREPORT#:[id number] REPORT STATUS: SignedREPORT INITIALIZATION DATE:08/09/23 TIME: 152 PATIENT: MISSY CANALES UNIT #: [id number]#: [id number] [address] [birth year] AGE: 68 SEX: M ATTEND: Raphael Ly MDADM AUTHOR: Esther Buckner [facility] DT/TIME: 08/09/23 1521* ALL edits or amendments must be made on the electronic/computer document * SubjectivePatient reports:No: complaints. Objective GeneralVS/I O:24 hour I O ending at 0700: 08/08 0700 08/07 1900 Intake Total 1071.00 Output Total 700 820 Balance -700 251.00 Intake, IV 1051.00 Intake, Tube 20 Irrigant Output, 20 Drainage Output, Urine 700 800 Vital Signs: Date Time Temp Pulse Resp B/P B/P Pulse O2 O2 Flow FiO2 Mean Ox Delivery Rate 08/08 1200 37.3 08/08 0800 37.3 08/08 0601 85 19 130/60 86 100 08/08 0531 90 26 132/60 87 99 08/08 0501 101 20 125/74 82 08/08 0500 101 26 97 08/08 0438 99 19 100 08/08 0431 96 20 121/66 82 100 08/08 0430 96 20 100 08/08 0401 97 18 132/75 89 100 08/08 0400 37.5 08/08 0400 97 20 100 08/08 0331 100 19 147/65 93 100 08/08 0330 99 19 100 08/08 0300 100 21 116/90 100 100 03/14 0230 99 16 112/57 79 100 03/14 0200 96 19 109/72 87 100 03/14 0139 93 18 100 03/14 0131 98 19 102/50 72 100 03/14 0130 111 27 100 03/14 0101 93 24 124/58 83 100 /14 0100 93 23 100 03/14 0030 90 22 117/64 82 100 03/14 0000 37.5 03 0000 88 25 114/82 93 100 03/ 2330 85 17 115/63 84 100 03/ 2301 85 21 116/56 81 100 / 2300 85 22 100 / 2231 84 25 140/58 74 100 / 2230 85 19 100 / 2201 93 21 128/58 83 100 08/07 2200 95 19 100 08/07 2131 108 21 131/71 88 100 08/07 2130 108 19 100 03/ 2101 108 18 103/57 75 100 08/07 2100 108 19 100 08/07 2030 106 20 122/72 91 100 08/07 2000 37.5 08/07 2000 102 22 119/76 92 100 08/07 1900 99 24 115/56 76 100 08/07 1831 96 24 113/59 83 100 08/07 1830 96 25 100 08/07 1801 96 23 126/51 74 100 08/07 1800 96 21 82 08/07 1730 96 23 116/63 78 97 08/07 1716 96 23 99 08/07 1700 92 24 114/78 91 99 08/07 1630 91 23 107/59 78 100 08/07 1600 37.3 08/07 1600 1 08/07 1600 87 21 108/54 75 100 08/07 1530 86 17 107/57 68 100 PATIENT WEIGHT: Weight (lb): 177Weight (oz): 14.61Weight (kg): 80.700 Medications:Active Meds + DC'd Last 24 HrsAllopurinol (ZYLOPRIM) 300 MG DAILY FEED-TUBE Aspirin (ASPIRIN) 81 MG DAILY FEED-TUBE Clopidogrel Bisulfate (Plavix) 75 MG DAILY FEED-TUBE Lactulose (LACTULOSE) 20 GM Q12HR FEED-TUBE Tamsulosin HCl (Flomax 0.4 mg) 0.8 MG DAILY FEED-TUBE Atorvastatin Calcium (LIPITOR) 40 MG BEDTIME FEED-TUBE Polyethylene Glycol (MIRALAX) 17 GM Q12H PO Metoprolol Tartrate (LOPRESSOR) 50 MG Q8HR FEED-TUBE Senna/Docusate Sodium (SENOKOT S) 1 TAB Q12H FEED-TUBE Insulin Human Lispro (HUMALOG) 0 Q6HR SUBQ Dextrose/Water (DEXTROSE 10% IN WATER) 125 ML ASDIR PRN IV (CKD) Dextrose/Water (DEXTROSE 10% IN WATER) 250 ML ASDIR PRN IV (CKD) Glucagon (GLUCAGON) 1 MG ASDIR PRN IM Insulin Glargine (Semglee) 20 UNIT DAILY SUBQ Mupirocin (BACTROBAN 2% 22 GM OINTMENT) 1 APPLIC BID NASAL Metronidazole/Sodium Chloride (metroNIDAZOLE 500MG/NS 100ML) 100 ML Q12H IV Sodium Chloride (SODIUM CHLORIDE 0.9%) 250 ML BOLUS PRN IV Ceftriaxone Sodium (ROCEPHIN) 2,000 MG Q24H IV Sodium Chloride (SODIUM CHLORIDE) 20 MLLatanoprost (XALATAN 2.5 ML OPHTH SOLN) 1 DROP BEDTIME EACH EYE Timolol Maleate (TIMOPTIC 0.5% 5 ML OPHTH SOLN) 1 DROP BID EACH EYE Brimonidine Tartrate (Alphagan-P 0.2% 5 ML OPHTH SOLN) 1 DROP Q8HR EACH EYE Hydralazine HCl (APRESOLINE) 10 MG Q6H PRN PRN IV Ondansetron HCl (ZOFRAN) 4 MG Q4H PRN PRN IV Physical ExamGeneral appearance: awake, no acute distressNeck: non-tender, no JVDCardiovascular: CV assessment: regular rate and rhythmRespiratory: decreased breath sounds, no distressAbdomen: cholecystostomy tube in placeGenitourinary: urinary catheter, urineUpper extremity: UE assessment: normal capillary refill, normal temperatureLower extremity: LE assessment: no edemaMusculoskeletal: decreased ROMNeuro/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: right hemiparesisSkin: dryPsychiatry: unable to evaluate ResultsFindings/Data:Laboratory Tests 08/08 08/08 08/08 08/07 1056 0507 0348 2308 Chemistry Sodium (134 - 147 mEq/L) 154 H Potassium (3.4 - 5.0 mEq/L) 3.7 Chloride (100 - 108 mEq/L) 123 H Carbon Dioxide (21 - 33 mEq/l) 20 L Anion Gap (0 - 20) 14 BUN (7 - 25 mg/dL) 20 Creatinine (0.6 - 1.3 mg/dL) 1.0 Glomerular Filtr Rate (70 - 80) 81.0 H Glucose (77 - 141 mg/dL) 146 H POC Glucose (70 - 110 MG/DL) 160 H 119 H 135 H Calcium (8.0 - 10.5 mg/dL) 8.4 Laboratory Tests 08/08 Hematology Hgb (12.5 - 16.9 g/dL) 9.6 L 9.3 L Hct (37.5 - 50.7 %) 28.7 L 27.9 L Radiology data:Recent Impressions:CAT SCAN - CT ABD PELVIS W WO CONT 08/07 1736 Report Impression - Status: SIGNED Entered: 08/08/20231736 IMPRESSION:No evidence of acute hemorrhage within the the liver and thegallbladder.Hyperdense contents within the gallbladder and 2nd segment of theduodenum may represent contrast and/or blood products.Large amount of stool within the rectum. LOCATION: S4Hjqlsemmre By: Anthony Degroot M.D. Results: labs reviewed, rhythm personally rev'd Diagnosis, Assessment PlanPlan discussed with: spouse/partner, collaborating MD, nurse Free Text DxA P NotesFree Text DxA P Notes:1. Coronary artery disease s/p recent PCI/TERESA to diagonal artery* Troponin trend is flat* Hx of CABG (2000)* s/p stent placement to diagonal artery on 07/02/23. Still need staged PCI to RCA. * Continue Plavix and aspirin - do not stop Plavix d/t risk of stent thrombosis* Echocardiogram preserved LVEF. 2. Elevated LFTs/acute cholecystitis/liver abscess* s/p cholecystostomy tube placement. * GI on board* ID on board managing antibiotic 3. AMS: MRI brain showed small subacute ischemia in the L coronary radiata * Neurology following 4. Tachycardia with frequent PVCs * HR better, less PVCs* No evidence of atrial fibrillation on telemetry. * Tachycardia likely secondary to SIRS. * Continue metoprolol 50 mg every 8 hours. * taken off losartan to make room for beta-yoav. Medical decision making by Dr. Daniel. at 2148 at 0822 RPT #:[id number] OF REPORTPRProgress [id number]:21:00G.[id number] for patient tfqdHTGEFGQKMLBLFY9236-73-06V08:56:36 [facility] 2023-08-09 13:03:00 [id number] l1yqYpFLa4Otm52wsnK D45HT7YPvo9tBsBSn8993-53-05M77:03:00 [facility] Progress NoteREPORT#:[id number] REPORT STATUS: SignedREPORT INITIALIZATION DATE:08/09/23 TIME: 1303 PATIENT: MISSY CANALES UNIT #: [id number]#: [id number] [address] [birth year] AGE: 68 SEX: M ATTEND: Raphael Ly MDA AUTHOR: Lisa Cancino MDREPT SERVICE DT/TIME: 08/09/23 1303* ALL edits or amendments must be made on the electronic/computer document * SubjectiveChief complaint:Elevated LFtsHPI:68 year old man s/p cardiac stents 2 weeks ago who was sent to the hospital withelevated LFTs and possible acute cholecystitis. Pt had a stenet recently placed and was started on DAPT. Pt had labs showing elevated LFTs and was sent here forevaluation. Labs showed leukocytosis 15k. Elevated Tbili 3.7. Dbili 2.8. AST 79,ALT 105 and ALP 225. RUQ U/S showed possible cholecystitis and normal CBD of 4 mm in diatmeter. Pt denies pain. No dark urine or peyton-color stool 08/03; patient feels well. MRCP reviewed. No choledocholithiasis. Fluid collection at the liver could be related secondary to gallbladder perforation. LFTs and white count are down. 08/04: Plan for IR for cholecystostomy tube placement. LFts stable. WBC elevated.Was confused this am but improving. NO pain. No fevers. Added flagyl to his Abx regimen 08/05: NO new complaints. IR for abscess drain and cholecystostomy tube 08/06: Transferred overnight to ICU due to AMS. S/P IR with cholecystostomy tube and abscess drain 08/07: severely constipated. NGT in with feeds. drains in. More awake today and oriented. right sided weakness likely acute stroke. MRI brain reviewed- small stroke. KUB reviewed 08/08: Doing better according to . Sheldon removed. Still on feeds Objective Physical ExamHEENT: EOMICardiovascular: normal heart soundsRespiratory: clear to auscultationAbdomen: non-tenderExtremities: no edema Diagnosis, Assessment PlanProblem List/A P: 1. Elevated LFTs Free Text A P:cholestatic pattern. CBD normal on RuQ U/S MRCP showed no evidence of choledocholithiasis.Large fluid collection within the liver could be secondary to gallbladder perforation.Recommend surgical evaluation again.Continue with antibiotics. Add flagyl s/p cholecystostomy tube and drainage of cystic fluid collection. Awaiting culture bowel regimen Surgery consultation reviewed. Agree with plan Acute strokeconstipation: bowel regimenWill follow at 1304 RPT #:[id number] OF REPORTPRProgress [id number]:03:00G.[id number] for patient qkvnXTLNBXSRWLLFFY7208-51-13I85:29:33 [facility] 2023-08-09 13:02:00 [id number] WjXElNa+RQq+dTomVQI nImpIlFuWQAT7whyH6164-62-43B86:02:00 [facility] ([facility])Critical Care Progress NoteREPORT#:[id number] REPORT STATUS: SignedREPORT INITIALIZATION DATE:08/09/23 TIME: 1302 PATIENT: MISSY CANALES UNIT #: [id number]#: [id number] [facility] AGE: 68 SEX: M ATTEND: Raphael Ly AUTHOR: Jake Contreras PAREPT SERVICE DT/TIME: 08/09/23 1302* ALL edits or amendments must be made on the electronic/computer document * Jake Contreras 08/09/23 1302:SubjectiveChief complaint:Altered mental statusHPI:Patient is a 68 year old man with a past medical history of hypertension, hyperlipidemia, diabetes, and coronary artery disease who was hospitalized for cholecystitis became altered acutely, leading to a rapid response called this evening. Reviewing patient's chart, it appears that he recently underwent percutaneous drain placement for his cholecystitis. Also reviewing the chart, it appears that patient's indicated that he has been having a decline over the past 5 days, which prompted his evaluation in the hospital. Per chart review, patient appears to have already been evaluated for his altered mental status by neurology. A CT angio of the head and neck was obtained with evidenceshowing of severe stenosis of the M1. Neurology's recommendation was for medical management. Review of the CT angio of the head and neck that was performed, at that time did not demonstrate large vessel obstruction. A repeat CT of the head without contrast performed to evaluate for possible bleeding given the most recent mental status change. No family was present at bedside initially. Patient admitted to ICU for further monitoring and evaluation. Critical care medicine was consulted for further assistance in the patient's verbal altered mentation. Review of SystemsUnable to obtain due to:AMS Objective GeneralVS/I OLast Documented: Result Date Time Pulse Ox 100 08/08 0601 B/P 130/60 08/08 06 B/P Mean 86 08/08 06 Pulse 85 08/08 0601 Resp 19 08/08 06 Temp 37.5 08/08 0400 O2 Flow Rate 1 08/07 1600 O2 Delivery Nasal cannula 08/07 1425 FiO2 40 08/07 0752 24 hour I O ending at 0700: 08/08 0700 08/07 1900 Intake Total 1071.00 Output Total 700 820 Balance -700 251.00 Intake, IV 1051.00 Intake, Tube 20 Irrigant Output, 20 Drainage Output, Urine 700 800 PATIENT WEIGHT: Weight (lb): 177Weight (oz): 14.61Weight (kg): 80.700 Physical ExamGeneral appearance: altered mental status, alert, awakeHead/eyes: atraumatic, clear cornea, normal conjunctiva/sclera, PERRLENT: dry mucosal membraneNeck: normal thyroid, no masses or swellingCardiovascular: tachycardia, no rubRespiratory: rhonchi, symmetric expansion, no distressAbdomen: (Percutanous drain in place), soft, non-tenderExtremities: abnormal capillary refill, no clubbing, no cyanosis, no edemaMusculoskeletal normal inspectionNeuro/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: altered mental status, alert, right upper hemiplegia Skin: dry, intact, normal color, normal temperature, no rashPsychiatry: unable to evaluate Diagnosis, Assessment PlanFree text A P:Patient is a 68 year old man with a past medical history of hypertension, hyperlipidemia, diabetes, and coronary artery disease who was hospitalized for cholecystitis became altered acutely, leading to a rapid response called this evening. Patient transferred to the iCU and critical care medicine was conuslted. Level of Care: ICU Code Status: Full Code ASSESSMENT PLAN 08/06 BIPAP support, 10/ 40%, 7.33 29 173 15, wean off as tolerated, grant tubesin place, lactic acid trending up, ceftriaxone and flagyl, CT brain negative, MRI shows subacute ischemia, neurology on board. Hypergycemia 08/07 Off BIPAP support, nasal cannula, grant tube in place, CT ab pelvis to confirm placement, lactic acid trended down, c/w abx. MRI shows subacute ischemia, right upper extremity remains flaccid, aphasia persistent, neurology on board. 08/08 Neuro status unchanged, right upper ext flaccid, expressie aphasia, neuro on board, appreciate recs, room air, TF resumed, doppler right upp ext pending to rule out DVT negative. PULMONARY: BIPAP1. Atelectasis prevention - Incentive Spirometry q1h as tolerated - OOB and ambulation as tolerated CARDIOVASCULAR / FLUIDS:1. HTN: BP is adequate - Telemetry with blood pressure monitoring -Resume home medications 2. Hyperlipidemia -Resume home medications 3. Coronary Artery Disease -Hx coronary stent placement -Followed by Cardiology GI / PELVIS / NUTRITION 1. Cholecystits-s/p cholecystostomy tube placement - Ceftriaxone/ Flagyl per ID recommendations-GI consulted and following patient 2. Mild protein-calorie malnutrition: On admission - Diet recommendations per registered dietician3. GIB prophylaxis: - Protonix RENAL / ELECTROLYTES / ACID-BASE / :1. Hypernatremia -Most likley secondary to volume depletion - IVF replacemet - Avoid nephrotoxic agents and modify medications renally excreted - Repeat serial BMP -Urine electrlytes/Osmolarity -Monitor UOP and Strict I/O's and monitor electrolytes and replace per protocol INFECTIOUS DISEASE:1. Citrobacter koserii bacteremia -Antibiotics adjusted per Infectious Diseases -Resume current regimen -Supportive care HEMATOLOGY / ONCOLOGY / COAGULATION: 1. Monitor Hgb/Hct; if Hgb < 7 then transfuse according to clinical status and guidelines2. Lovenox for DVT prophylaxis ENDOCRINE1. Diabetes Mellitus -Poorly controlled -Accu checks per protocol if needed -Maintain blood sugar < 180 mg/dl -ISS high scale -Lantus q daily MUSCULOSKELETAL / DERMATOLOGICAL:1. Monitor for skin breakdown - OOB to chair - PT/OT NEUROLOGY / PSYCHIATRY:1. Hx of ischemic cerebral infarct -Statins/ASA/ -PT/OT2. Bilatral MCA stenosis -Management per Neurology-Not candidate for TNK SOCIAL:1. Family Communication - arrived late, but well discuss true acorringly Critical Care Time: 40 minutes This time excludes separately billable procedures or tests Due to a high probability of clinically significant, life threatening deterioration, the patient required my highest level of preparedness to intervene emergently and I personally spent this critical care time directly andpersonally managing the patient. This critical care time included obtaining a history; examining the patient; pulse oximetry; ordering and review of studies; arranging urgent treatment with development of a management plan; evaluation of patient's response to treatment;frequent reassessment; and, discussions with other providers.This critical care time was performed to assess and manage the high probability of imminent, life-threatening deterioration that could result in multi-organ failure. It was exclusive of separately billable procedures and treating other patients Quality: Gen Med Crit Care Current MedicationsCurrent medication review:I attest that the foregoing medication list in the medical record is true, accurate, and complete to the best of my knowledge. Advanced Care Plan 65 or OlderDiscussed with: patient, surrogate decis. maker ANA MARIA GREEN 08/09/23 1755:Diagnosis, Assessment PlanFree text A P:Agree with the findings and plan as documented with APPD/W the case in detailsReviewed chart and rounded on the patient at 1309 at 1755 RPT #:[id number] OF REPORTPRProgress [id number]:02:00G.[id number] for patient oioxSMNUTCEVTGEZHC3540-94-10T93:30:54 [facility] 2023-08-09 12:03:00 [id number]+BI7WgJ90alQ hVoGYfrf9if8LizpTSs wV5gRZEz+zYUzupTW0241-80-64Y08:03:00 [facility] ([facility])Endocrinology Progress NoteREPORT#:[id number] REPORT STATUS: SignedREPORT INITIALIZATION DATE:08/09/23 TIME: 120 PATIENT: MISSY CANALES UNIT #: [id number]#: [id number] [address] [birth year] AGE: 68 SEX: M ATTEND: Raphael Ly MDADM AUTHOR: Agus Duckworth APRNNPREPT SERVICE DT/TIME: 08/09/23 1203* ALL edits or amendments must be made on the electronic/computer document * SubjectiveChief complaint:f/u DM IITF Objective GeneralVS:Last Documented: Result Date Time Pulse Ox 100 08/08 0601 B/P 130/60 08/08 0601 B/P Mean 86 08/08 0601 Pulse 85 08/08 0601 Resp 19 08/08 06 Temp 99.5 08/08 0400 O2 Flow Rate 1 08/07 1600 O2 Delivery Nasal cannula 08/07 1425 FiO2 40 08/07 0752 PATIENT WEIGHT: Weight (lb): 177Weight (oz): 14.61Weight (kg): 80.700 Medications:Active Meds + DC'd Last 24 HrsAllopurinol (ZYLOPRIM) 300 MG DAILY FEED-TUBE Aspirin (ASPIRIN) 81 MG DAILY FEED-TUBE Clopidogrel Bisulfate (Plavix) 75 MG DAILY FEED-TUBE Lactulose (LACTULOSE) 20 GM Q12HR FEED-TUBE Tamsulosin HCl (Flomax 0.4 mg) 0.8 MG DAILY FEED-TUBE Atorvastatin Calcium (LIPITOR) 40 MG BEDTIME FEED-TUBE Polyethylene Glycol (MIRALAX) 17 GM Q12H PO Metoprolol Tartrate (LOPRESSOR) 50 MG Q8HR FEED-TUBE Senna/Docusate Sodium (SENOKOT S) 1 TAB Q12H FEED-TUBE Insulin Human Lispro (HUMALOG) 0 Q6HR SUBQ Metoprolol Tartrate (LOPRESSOR) 50 MG Q8HR PO (DC) Dextrose/Water (DEXTROSE 10% IN WATER) 125 ML ASDIR PRN IV (CKD) Dextrose/Water (DEXTROSE 10% IN WATER) 250 ML ASDIR PRN IV (CKD) Glucagon (GLUCAGON) 1 MG ASDIR PRN IM Insulin Glargine (Semglee) 20 UNIT DAILY SUBQ Mupirocin (BACTROBAN 2% 22 GM OINTMENT) 1 APPLIC BID NASAL Metronidazole/Sodium Chloride (metroNIDAZOLE 500MG/NS 100ML) 100 ML Q12H IV Sodium Chloride (SODIUM CHLORIDE 0.9%) 250 ML BOLUS PRN IV Ceftriaxone Sodium (ROCEPHIN) 2,000 MG Q24H IV Sodium Chloride (SODIUM CHLORIDE) 20 MLAtorvastatin Calcium (LIPITOR) 40 MG BEDTIME PO (DC) Latanoprost (XALATAN 2.5 ML OPHTH SOLN) 1 DROP BEDTIME EACH EYE Allopurinol (ZYLOPRIM) 300 MG DAILY PO (DC) Aspirin (ASPIRIN) 81 MG DAILY PO (DC) Clopidogrel Bisulfate (Plavix) 75 MG DAILY PO (DC) Tamsulosin HCl (Flomax 0.4 mg) 0.8 MG DAILY PO (DC) Timolol Maleate (TIMOPTIC 0.5% 5 ML OPHTH SOLN) 1 DROP BID EACH EYE Brimonidine Tartrate (Alphagan-P 0.2% 5 ML OPHTH SOLN) 1 DROP Q8HR EACH EYE Hydralazine HCl (APRESOLINE) 10 MG Q6H PRN PRN IV Ondansetron HCl (ZOFRAN) 4 MG Q4H PRN PRN IV Dietitian nutrition assessmentThe data set between the solid lines has been imported from the dietitian's assessment. BMI Calculated: 27.9Nutrition related diagnosis: OverweightNutrition diagnosis details: BMI 25-29.9Nutrition problem: Inadequate oral intakeNutrition etiology: PT LETHARGIC /SWALLOWING Nutrition signs and symptoms: ENTERAL NUTRITION TO MEET , ENERGY NEEDS Nutrition prescription: RECOMMEND: VITAL AF@ 68 MLS WILL PROVIDE: GMS/1362 MLS FW/DAILY Dietitian name: Rohan Sarah, DIETAssessment completed: 08/07/23 Physical ExamGeneral appearance: alert, awakeHEENT: normocephalicNeck: suppleCardiovascular: regular rate rhythmRespiratory: on oxygenAbdomen: softGenitourinary: not indicatedExtremities: warmNeuro/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: alertSkin: warmFindings/data:Laboratory Tests: 08/08 08/08 08/08 08/07 08/07 1056 0507 0348 2308 2039 Chemistry Sodium (134 - 147 mEq/L) 154 H Potassium (3.4 - 5.0 mEq/L) 3.7 Chloride (100 - 108 mEq/L) 123 H Carbon Dioxide (21 - 33 mEq/l) 20 L Anion Gap (0 - 20) 14 BUN (7 - 25 mg/dL) 20 Creatinine (0.6 - 1.3 mg/dL) 1.0 Glomerular Filtr Rate (70 - 80) 81.0 H Glucose (77 - 141 mg/dL) 146 H POC Glucose (70 - 110 MG/DL) 160 H 119 H 135 H Calcium (8.0 - 10.5 mg/dL) 8.4 Hematology Hgb (12.5 - 16.9 g/dL) 9.6 L 9.3 L Hct (37.5 - 50.7 %) 28.7 L 27.9 L 08/07 1433 Chemistry Sodium (134 - 147 mEq/L) 155 H Potassium (3.4 - 5.0 mEq/L) 3.9 Chloride (100 - 108 mEq/L) 124 H Carbon Dioxide (21 - 33 mEq/l) 22 Anion Gap (0 - 20) 13 BUN (7 - 25 mg/dL) 26 H Creatinine (0.6 - 1.3 mg/dL) 0.7 Glomerular Filtr Rate (70 - 80) 99.1 H Glucose (77 - 141 mg/dL) 184 H Calcium (8.0 - 10.5 mg/dL) 8.1 Hematology Hgb (12.5 - 16.9 g/dL) 9.5 L Hct (37.5 - 50.7 %) 28.3 L Recent Impressions:CAT SCAN - CT ABD PELVIS W WO CONT 08/07 1736 Report Impression - Status: SIGNED Entered: 08/08/20231736 IMPRESSION:No evidence of acute hemorrhage within the the liver and thegallbladder.Hyperdense contents within the gallbladder and 2nd segment of theduodenum may represent contrast and/or blood products.Large amount of stool within the rectum. LOCATION: [id number] By: Anthony Degroot M.D. Laboratory Tests: 08/08 08/08 08/08 08/07 08/07 1056 0507 0348 4517 9 Chemistry Sodium (134 - 147 mEq/L) 154 H Potassium (3.4 - 5.0 mEq/L) 3.7 Chloride (100 - 108 mEq/L) 123 H Carbon Dioxide (21 - 33 mEq/l) 20 L Anion Gap (0 - 20) 14 BUN (7 - 25 mg/dL) 20 Creatinine (0.6 - 1.3 mg/dL) 1.0 Glomerular Filtr Rate (70 - 80) 81.0 H Glucose (77 - 141 mg/dL) 146 H POC Glucose (70 - 110 MG/DL) 160 H 119 H 135 H Calcium (8.0 - 10.5 mg/dL) 8.4 Hematology Hgb (12.5 - 16.9 g/dL) 9.6 L 9.3 L Hct (37.5 - 50.7 %) 28.7 L 27.9 L 08/07 1433 Chemistry Sodium (134 - 147 mEq/L) 155 H Potassium (3.4 - 5.0 mEq/L) 3.9 Chloride (100 - 108 mEq/L) 124 H Carbon Dioxide (21 - 33 mEq/l) 22 Anion Gap (0 - 20) 13 BUN (7 - 25 mg/dL) 26 H Creatinine (0.6 - 1.3 mg/dL) 0.7 Glomerular Filtr Rate (70 - 80) 99.1 H Glucose (77 - 141 mg/dL) 184 H Calcium (8.0 - 10.5 mg/dL) 8.1 Hematology Hgb (12.5 - 16.9 g/dL) 9.5 L Hct (37.5 - 50.7 %) 28.3 L Recent Impressions:CAT SCAN - CT ABD PELVIS W WO CONT 08/07 1736 Report Impression - Status: SIGNED Entered: 08/08/20231736 IMPRESSION:No evidence of acute hemorrhage within the the liver and thegallbladder.Hyperdense contents within the gallbladder and 2nd segment of theduodenum may represent contrast and/or blood products.Large amount of stool within the rectum. LOCATION: [id number] By: Anthony Degroot M.D. Diagnosis, Assessment PlanFree Text A P:1.DM LAHqrI8q 8.2adjust Lantus continue SSI monitor glucose NPO DC Plan: Lantus, Humalog, and Farxiga; follow at next available appointment. 2.Abnormal thyroid functions 08/06 TSH 0.07 FT4 1 recheck in a couple of days 3.Suspected ischemic strokeMRI brain without contrastEchocardiogramTelemetryneurology following 4.Coronary artery diseasePCI on July 03, 2023Echocardiogram preserved LVEFdual antiplateletscardiology following 5. Elevated LFTsGI following 6.MRCP with complex cystic fluid collectionpost drainage surgery following at 1501 at 0809 [facility] #:[id number] OF REPORTPRProgress gbnh2856-90-37T60:03:00G.[id number] for patient fymlVFUUTXRBDWDWMF0741-13-46H93:01:46 [facility] 2023-08-09 11:26:00 [id number] 380Ci8Ax9R3MLkTKe4C RED2ZJLNRUtcPNxlC0615-57-89K55:26:871172-2504 [place] [address] PATIENT NAME: MISSY CANALES ADMIT DATE: 08/03/23ACCOUNT NO: [id number] ROOM NO: M330 AGE: 68 REPORT TYPE: 360 - QUERY RESPONSE DOCUMENT SEX: M ADMITTING PHYSICIAN:Raphael Ly MD ATTENDING PHYSICIAN:Raphael Ly MD Provider Query QUERY TEXT: Condition General 360MD Query related questions should be directed to: [facility] Coding Query Help-line Based on your clinical judgment, can you please clarify if NSTEMI was confirmed, NSTEMI not confirmed, or other more appropriate diagnosis? The patient's Clinical Indicators include:NSTEMI (non-ST elevated myocardial infarction) Time of Impression 1014 - ED PHYSICIAN RECORD 08/03/2023 (1)Troponin I High Sens (0 - 54 ng/L) 330 *H - ED PHYSICIAN RECORD 08/03/2023 (1)Initial troponin was elevated and unclear if this is due to a recent event. - Cardiology Consultation 08/03/2023 (4)Will get 1 more troponin, and get echocardiogram. - Cardiology Consultation 08/03/2023 (4)- Elevated Troponin could be demand Ischemia. - Hospitalist Progress Note 08/08/2023 (1)ASPIRIN 81 MG TAB.CHEW - 08/03/2023 Options provided:-- Respond - Create new note now-- Dismiss - Not applicable / Not valid-- Dismiss - Clinically unable to determine / Unknown-- Assign to another provider QUERY RESPONSE: NSTEMI not confirmed, Query created by: MAKEDA SIDHU on 08/09/2023 12:29 AM at 1126 PATIENT NAME: MISSY CANALES noteG.[id number] for patient hmksEBXQVMPIYXQRLS1842-96-72J20:27:51 [facility] 2023-08-09 09:58:00 [id number] TDdi9UUH/+JigcVa1MV SI21eNdIlUOitPxx60585-34-97Q25:58:00 [facility] ([facility])Infectious Dis. Progress NoteREPORT#:[id number] REPORT STATUS: SignedREPORT INITIALIZATION DATE:08/09/23 TIME: 957 PATIENT: MISSY CANALES UNIT #: [id number]#: [id number] [address] AGE: 68 SEX: M ATTEND: Raphael Ly [facility] AUTHOR: Jv Colvin NPREPT SERVICE DT/TIME: 08/09/23957* ALL edits or amendments must be made on the electronic/computer document * SubjectiveChief complaint:Abd pain, N/V F/U BacteremiaNursing reports:No: complaints. Unable to obtain: patient condition Objective GeneralVS/I O:Vital Signs Date Temp Pulse Resp B/P B/P Mean Pulse Ox FiO2 08/07-08/08 99.0-99.5 84-111 15-27 92-156/50-99 68-118 82-100 Last Documented: Result Date Time Pulse Ox 100 08/08 0601 B/P 130/60 08/08 0601 B/P Mean 86 08/08 0601 Pulse 85 08/08 0601 Resp 19 08/08 0601 Temp 99.5 03/14 0400 O2 Flow Rate 1 08/07 1600 O2 Delivery Nasal cannula 08/07 1425 FiO2 40 / 0752 Vital Signs: Date Time Temp Pulse Resp B/P B/P Pulse O2 O2 Flow FiO2 Mean Ox Delivery Rate / 0601 85 19 130/60 86 100 03/14 0531 90 26 132/60 87 99 03/14 0501 101 20 125/74 82 03/14 0500 101 26 97 03/14 0438 99 19 100 03/14 0431 96 20 121/66 82 100 03/14 0430 96 20 100 03/14 0401 97 18 132/75 89 100 03/14 0400 99.5 03/14 0400 97 20 100 03/14 0331 100 19 147/65 93 100 03/14 0330 99 19 100 03/14 0300 100 21 116/90 100 100 03/14 0230 99 16 112/57 79 100 03/14 0200 96 19 109/72 87 100 03/14 0139 93 18 100 03/14 0131 98 19 102/50 72 100 03/14 0130 111 27 100 03/14 0101 93 24 124/58 83 100 03/14 0100 93 23 100 03/14 0030 90 22 117/64 82 100 03/14 0000 99.5 03/14 0000 88 25 114/82 93 100 03/13 2330 85 17 115/63 84 100 03/13 2301 85 21 116/56 81 100 03/13 2300 85 22 100 03/13 2231 84 25 140/58 74 100 03/13 2230 85 19 100 03/13 2201 93 21 128/58 83 100 03/13 2200 95 19 100 03/13 2131 108 21 131/71 88 100 03/13 2130 108 19 100 03/13 2101 108 18 103/57 75 100 03/13 2100 108 19 100 03/13 2030 106 20 122/72 91 100 03/13 2000 99.5 03/1999 102 22 119/76 92 100 03/13 1900 99 24 115/56 76 100 03/13 1831 96 24 113/59 83 100 03/13 1830 96 25 100 03/13 1801 96 23 126/51 74 100 03/13 1800 96 21 82 03/13 1730 96 23 116/63 78 97 03/13 1716 96 23 99 03/13 1700 92 24 114/78 91 99 08/07 1630 91 23 107/59 78 100 08/07 1600 99.1 08/07 1600 1 08/07 1600 87 21 108/54 75 100 08/07 1530 86 17 107/57 68 100 03 1501 106 24 103/53 73 100 08/07 1500 108 23 100 08/07 1431 107 22 110/53 69 100 08/07 1430 108 20 100 08/07 1425 100 Nasal 2 cannula 08/07 1401 109 19 123/52 75 100 08/07 1400 109 20 100 08/07 1346 102 19 106/52 75 100 08/07 1330 102 19 100 08/07 1300 96 20 92/62 72 100 08/07 1230 95 18 106/63 78 100 08/07 1201 95 15 111/62 77 100 08/07 1200 99.0 08/07 1200 Nasal 2 cannula 08/07 1200 98 21 100 08/07 1131 97 15 106/51 73 100 08/07 1130 97 19 100 08/07 1128 100 Nasal 2 cannula 08/07 1100 97 18 129/59 85 100 08/07 1043 96 17 135/63 90 100 08/07 1034 98 18 139/63 91 100 08/07 1030 102 20 100 08/07 1029 107 18 139/66 95 100 03 1024 106 19 152/70 100 100 08/07 1019 105 19 144/77 95 100 08/07 1014 104 20 156/79 108 100 08/07 1009 105 18 152/74 104 100 08/07 1004 99 20 153/76 104 100 03 1000 99 18 100 08/07 0959 99 18 149/99 118 100 24 hour I O ending at 0700: 08/08 0700 08/07 1900 Intake Total 1071.00 Output Total 700 820 Balance -700 251.00 Intake, IV 1051.00 Intake, Tube 20 Irrigant Output, 20 Drainage Output, Urine 700 800 PATIENT WEIGHT: Weight (lb): 177Weight (oz): 14.61Weight (kg): 80.700 Physical ExamGeneral appearance: respiratory support (nc), awakeWound/incision: Location:Cholecystostomy tube- bloody output RUQ drain- bloodyHead/Eyes: atraumatic, normocephalicCardiovascular: tachycardia, no murmurRespiratory: clear to auscultation, aerating well, symmetric expansionAbdomen: non-tender, soft, no distention, percutaneous drains in place in RUQExtremities: no cyanosis, no edemaNeuro/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: altered mental statusSkin: dry, no rashPsychiatry: unable to evaluate ResultsFindings/Data:Laboratory Tests 08/08 08/08 08/07 08/07 08/07 0507 0348 2308 1433 1139 Chemistry Sodium (134 - 147 mEq/L) 154 H 155 H Potassium (3.4 - 5.0 mEq/L) 3.7 3.9 Chloride (100 - 108 mEq/L) 123 H 124 H Carbon Dioxide (21 - 33 mEq/l) 20 L 22 Anion Gap (0 - 20) 14 13 BUN (7 - 25 mg/dL) 20 26 H Creatinine (0.6 - 1.3 mg/dL) 1.0 0.7 Glomerular Filtr Rate (70 - 80) 81.0 H 99.1 H Glucose (77 - 141 mg/dL) 146 H 184 H POC Glucose (70 - 110 MG/DL) 119 H 135 H 162 H Calcium (8.0 - 10.5 mg/dL) 8.4 8.1 Laboratory Tests 08/08 08/07 08/07 0348 2039 1433 Hematology Hgb (12.5 - 16.9 g/dL) 9.6 L 9.3 L 9.5 L Hct (37.5 - 50.7 %) 28.7 L 27.9 L 28.3 L Radiology data:Recent Impressions:CAT SCAN - CT ABD PELVIS W WO CONT 08/07 1736 Report Impression - Status: SIGNED Entered: 08/08/20231736 IMPRESSION:No evidence of acute hemorrhage within the the liver and thegallbladder.Hyperdense contents within the gallbladder and 2nd segment of theduodenum may represent contrast and/or blood products.Large amount of stool within the rectum. LOCATION: [id number] By: Anthony Degroot M.D. Results: labs reviewed, vital signs reviewed, vital signs stable, current med profile rev'd Diagnosis, Assessment PlanFree Text A P:Sepsis, improving--Fever, tachycardia, leukocytosis--Source: BacteremiaBacteremia--Citrobacter--Source: BiliaryLiver abscess--MRCP showed 4.6 x 3.6 x 3.0 thick walled cystic lesion/fluid collection liver abutting GB fossa--S/P IR drain 08/05, cx CitrobacterAcute cholecystitis--S/P IR placed cholecystotomy tube ., cx CitrobacterAcute stroke--MRI (+) subacute Left guo radiata--CTA neck (+) high grade bpcgraarKIJPU1DVTGCO On Rocephin/Flagyl, abx started 08/02 (Day 6)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, with f/u CT to ensure resolution of abcess prior to stopping abx Seen and examined with Dr BrothersDM was done entirely by Dr mullen at 2040 at 0915 RPT #:[id number] OF REPORTPRProgress ankv1672-26-30H65:58:00G.[id number] for patient vvdsQBBTABWEXTFTEP6896-18-36M68:45:42 [facility] 2023-08-08 18:45:00 [id number]/W+J4yC TcVsVT/8DWja3LBYT4S IWwSgYffVOygsKKnz6852-04-44K07:45:00 [facility] ([facility])Infectious Dis. Progress NoteREPORT#:[id number] REPORT STATUS: SignedREPORT INITIALIZATION DATE:08/08/23 TIME: 1844 PATIENT: MISSY CANALES UNIT #: [id number]#: [id number] [address] AGE: 68 SEX: M ATTEND: Raphael Ly AUTHOR: Jv Colvin NPREPT SERVICE DT/TIME: 08/08/231844* ALL edits or amendments must be made on the electronic/computer document * SubjectiveChief complaint:Abd pain, N/V F/U BacteremiaHPI:Pt is a 68 yo male with PMH of HTN, HLD, DM2, CAD who presented to the er with acute onset abdomina pain with associated symptoms of nausea and vomiting. Pt was found to be septic. Blood cx with Citrobacter. Imaging revealed cholecystitis with abd abscess. Underwent IR drain placement for abscess and cholecystostomy tube placement 08/05. 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 He was transferred to ICUNursing reports:No: complaints. Unable to obtain: patient condition Objective GeneralVS/I O:Vital SignsDate Temp Pulse Resp B/P B/P Mean Pulse Ox KtT173/12-08/07 99.0-100.0 86-120 15-37 92-173/51-107 68-129 99-100 40 Last Documented: Result Date Time Pulse Ox 99 08/07 1716 Pulse 96 08/07 1716 Resp 23 08/07 1716 B/P 114/78 08/07 1700 B/P Mean 91 08/07 1700 Temp 99.1 08/07 1600 O2 Flow Rate 1 08/07 1600 O2 Delivery Nasal cannula 08/07 1425 FiO2 40 08/07 0752 Vital Signs:Date Time Temp Pulse Resp B/P B/P Pulse O2 O2 Flow FiO2 Mean Ox Delivery Rate08/07 1716 96 23 9903/13 1700 92 24 114/78 91 9903/ 1630 91 23 107/59 78 / 1600 99.103/ 1600 103/ 1600 87 21 108/54 75 / 1530 86 17 107/57 68 / 1501 106 24 103/53 73 / 1500 108 23 / 1431 107 22 110/53 69 / 1430 108 20 / 1425 100 Nasal 2 pixbboa63/13 1401 109 19 123/52 75 / 1400 109 20 / 1346 102 19 106/52 75 / 1330 102 19 / 1300 96 20 92/62 72 / 1230 95 18 106/63 78 / 1201 95 15 111/62 77 / 1200 99.003/13 1200 Nasal 2 bxynlzz64/13 1200 98 21 1131 97 15 106/51 73 19065/13 1130 97 19 97548/13 1128 100 Nasal 2 mksoeek15/13 1100 97 18 129/59 85 09807/13 1043 96 17 135/63 90 98686/13 1034 98 18 139/63 91 84645/13 1030 102 20 28047/13 1029 107 18 139/66 95 56819/13 1024 106 19 152/70 100 63485/13 1019 105 19 144/77 95 12111/13 1014 104 20 156/79 108 01603/13 1009 105 18 152/74 104 05243/13 1004 99 20 153/76 104 98121/13 1000 99 18 77851/13 0959 99 18 149/99 118 12231/13 0954 98 18 139/72 99 48279/13 0949 102 19 141/77 16681/13 0930 105 2103/13 0910 93 21 138/65 93 47127/13 0900 95 17 131/59 87 36924/13 0850 94 19 131/62 89 76650/13 0840 100 17 142/71 99 33568/13 0830 97 37 134/70 96 84650/13 0820 98 24 137/71 98 61260/13 0810 99 31 140/71 100 98691/13 0800 100.003/13 0800 Nasal 2 qkirbov74/13 0800 98 33 143/71 98 52600/13 0752 96 100 4003/13 0752 100 BiPAP 4003/13 0750 95 27 139/75 101 09040/13 0740 97 29 141/74 101 09183/13 0730 97 33 140/69 99 05142/13 0720 96 31 142/69 97 59477/13 0710 96 33 140/69 99 68356/13 0700 93 31 130/70 95 63823/13 0629 87 25 51123/13 0620 91 22 145/64 92 24753/13 0610 96 22 151/62 98 59390/13 0600 110 23 169/77 110 41391/13 0550 110 23 152/80 109 51148/13 0540 113 23 152/70 100 62564/13 0530 120 23 165/69 99 52337/13 0522 112 23 163/77 110 50804/13 0521 114 23 173/107 129 80924/13 0510 112 21 148/67 96 45868/13 0500 118 26 154/70 100 33068/13 0442 774 847 3401/13 0441 109 19 169/77 110 36621/13 0430 101 17 144/68 98 26527/13 0420 101 21 136/64 92 07305/13 0410 101 22 133/61 88 14937/13 0400 100.003/13 0400 102 19 138/61 88 81686/13 0350 101 20 139/64 92 28748/13 0340 101 22 145/66 95 94244/13 0330 100 22 151/66 95 01760/13 0320 100 23 147/65 94 94765/13 0310 101 22 146/63 91 00381/13 0300 103 22 139/63 90 39258/13 0250 103 20 142/63 91 75577/13 0240 102 22 152/67 97 98188/13 0230 103 23 153/66 95 08526/13 0220 101 22 144/70 100 61543/13 0210 101 20 139/66 95 43179/13 0200 101 22 138/65 93 10584/13 0150 101 22 133/63 90 77980/13 0140 100 28 147/64 92 34387/13 0130 100 19 131/63 90 49184/13 0120 100 20 135/63 91 28642/13 0110 99 20 133/64 92 19371/13 0100 99 21 125/58 83 35970/13 0050 96 23 125/64 86 71115/13 0040 96 19 129/65 92 92608/13 0030 96 21 127/59 85 35700/13 0020 94 23 125/58 83 36688/13 0010 94 25 133/60 87 74333/13 0000 99.603/13 0000 98 21 135/61 88 68752/12 2350 95 22 134/63 91 66923/12 2340 94 20 130/60 88 10176/12 2332 100 Ventilator 4003/12 2330 94 20 133/65 91 16641/12 2329 94 100 4003/12 2320 93 27 130/63 90 58839/12 2310 94 23 128/63 89 11001/12 2300 95 25 130/66 92 65540/12 2250 95 24 133/65 94 39187/12 2240 95 26 134/66 92 90120/12 2230 96 28 132/63 91 94864/12 2220 95 27 125/61 87 / 2210 93 31 123/59 85 / 2200 94 31 126/61 88 / 2150 97 26 128/61 88 / 2140 101 26 128/60 86 / 2130 110 25 145/70 101 / 2120 111 24 142/67 95 / 2110 111 22 131/65 92 / 2100 110 27 134/65 92 / 2050 109 25 136/65 94 / 2040 110 24 137/65 94 / 2030 109 24 137/64 92 / 2020 110 24 146/70 98 /2009 109 24 127/67 89 /1999 99.603/12 2000 Nasal 3 ipjtsls9208/07 1999 109 19 134/61 88 / 1950 109 24 125/65 91 / 1941 108 28 137/64 92 / 1930 108 25 144/67 97 / 1920 112 23 153/69 99 / 1900 109 26 152/73 105 / 1850 109 24 152/68 98 100 24 hour I O ending at 0700: 08/07 0700 08/06 1900 Intake Total 1598.00 325.00 Output Total 725 815 Balance 873.00 -490.00 Intake, Free 200 Water Intake, IV 1300.00 325.00 Intake, Tube 98 Feeding Output, 75 90 Drainage Output, Urine 650 725 PATIENT WEIGHT: Weight (lb): 177Weight (oz): 14.61Weight (kg): 80.700 Physical ExamGeneral appearance: respiratory support (NC), awakeWound/incision: Location:Cholecystostomy tube- bloody outputRUQ drain- bloodyHead/Eyes: atraumatic, normocephalicCardiovascular: tachycardia, no murmurRespiratory: clear to auscultation, aerating well, symmetric expansionAbdomen: non-tender, soft, no distention, percutaneous drains in place in RUQExtremities: no cyanosis, no edemaNeuro/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: altered mental status, awake, mostly non-verbal during the encounterSkin: dry, no rashPsychiatry: unable to evaluate ResultsFindings/Data:Laboratory Tests 08/08/23 1433:[Embedded Image Not Available] 08/08/23 0455:[Embedded Image Not Available] 08/07/23 1216:[Embedded Image Not Available] 08/07/23 0456:[Embedded Image Not Available] 08/07/23 0244:[Embedded Image Not Available] Current Medications Sig/Geoffrey Start time Last Medication Dose Route Stop Time Status Admin Allopurinol 300 MG DAILY 08/08 09 AC FEED-TUBE 11/06 0859 Aspirin 81 MG DAILY 08/08 09 AC FEED-TUBE 11/06 0859 Clopidogrel Bisulfate 75 MG DAILY 08/08 0900 AC FEED-TUBE 11/06 0859 Tamsulosin HCl 0.8 MG DAILY 08/08 09 AC FEED-TUBE 11/06 0859 Atorvastatin Calcium 40 MG BEDTIME 08/07 2100 AC FEED-TUBE 09/06 2059 Polyethylene Glycol 17 GM Q12H 08/07 1800 AC PO 11/05 1759 Metoprolol Tartrate 50 MG Q8HR 08/07 1400 AC 08/07 FEED-TUBE 11/05 1359 1430 Senna/Docusate Sodium 1 TAB Q12H 08/07 1130 AC 08/07 FEED-TUBE 11/05 1129 1140 Sodium Chloride 500 ML BOLUS ONCE ONE 08/07 1045 DC 08/07 IV 08/07 1144 1125 Iopamidol 100 ML .STK-MED ONE 08/07 1044 DC 08/07 IV 08/07 1045 1044 Sodium Bicarbonate 50 MEQ ONCE ONE 08/07 0715 DC IV 08/07 0716 Insulin Human Lispro 0 Q6HR 08/06 1600 AC 08/07 SUBQ 11/04 1559 0626 Metoprolol Tartrate 50 MG Q8HR 08/06 1500 DC 08/07 PO 11/04 1459 0549 Dextrose/Water 125 ML ASDIR PRN 08/06 1330 CKD IV 11/04 1329 Dextrose/Water 250 ML ASDIR PRN 08/06 1330 CKD IV 11/04 1329 Glucagon 1 MG ASDIR PRN 08/06 1330 AC IM 11/04 1329 Insulin Glargine 20 UNIT DAILY 08/06 1230 AC 08/07 SUBQ 11/04 1229 1139 Mupirocin 1 APPLIC BID 08/06 1200 AC 08/07 NASAL 08/10 2101 1122 Metronidazole/Sodium 100 ML Q12H 08/05 1715 AC 08/07 Chloride IV 08/12 1714 1752 Sodium Chloride 250 ML BOLUS PRN 08/05 1700 AC IV 11/03 1659 Ceftriaxone Sodium 2,000 MG Q24H 08/05 1630 AC 08/07 Sodium Chloride 20 ML IV 08/12 1629 1700 Atorvastatin Calcium 40 MG BEDTIME 08/03 2100 DC 08/06 PO 09/02 2059 2111 Latanoprost 1 DROP BEDTIME 08/03 2100 AC 08/03 EACH EYE 11/01 2059 2124 Allopurinol 300 MG DAILY 08/03 899 DC 08/07 PO 11/01 0859 1140 Aspirin 81 MG DAILY 08/03 899 DC 08/07 PO 11/01 0859 1122 Clopidogrel Bisulfate 75 MG DAILY 08/03 899 DC 08/07 PO 11/01 0859 1122 Finasteride 5 MG DAILY 08/03 899 DC 08/06 PO 11/01 0859 1300 Tamsulosin HCl 0.8 MG DAILY 08/03 899 DC 08/07 PO 11/01 0859 1121 Timolol Maleate 1 DROP BID 08/03 899 AC 08/05 EACH EYE / 0859 0846 Brimonidine Tartrate 1 DROP Q8HR 08/02 2300 AC 08/07 EACH EYE 06/ 2259 1529 Hydralazine HCl 10 MG Q6H PRN PRN 03/08 1045 AC 08/06 IV 06/ 1044 0641 Ondansetron HCl 4 MG Q4H PRN PRN 03/08 1045 AC IV 06/06 1044 Radiology data:Recent Impressions:CAT SCAN - CT ABD PELVIS W WO CONT 08/07 1736 Report Impression - Status: SIGNED Entered: 08/08/20231736 IMPRESSION:No evidence of acute hemorrhage within the the liver and thegallbladder.Hyperdense contents within the gallbladder and 2nd segment of theduodenum may represent contrast and/or blood products.Large amount of stool within the rectum. LOCATION: L5Zsgrghgnqg By: Anthony Degroot M.D. Results: labs reviewed, vital signs reviewed, vital signs stable, current med profile rev'd Diagnosis, Assessment PlanFree Text A P:Sepsis, improving--Fever, tachycardia, leukocytosis--Source: BacteremiaBacteremia--Citrobacter--Source: BiliaryLiver abscess--MRCP showed 4.6 x 3.6 x 3.0 thick walled cystic lesion/fluid collection liver abutting GB fossa--S/P IR drain 08/05, cx CitrobacterAcute cholecystitis--S/P IR placed cholecystotomy tube ., cx CitrobacterAcute stroke--MRI (+) subacute Left guo radiata--CTA neck (+) high grade kvejuxflKAURE0OIWAJR On Rocephin/Flagyl, abx started 08/02 (Day 5)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, with f/u CT to ensure resolution of abcess prior to stopping abx Seen and examined with Dr BrothersDM was done entirely by Dr Hobson discussed with: patient, spouse/partner, nurse at 1847 at 0958 RPT #:[id number] OF REPORTPRProgress zgkz2648-28-83D68:45:00G.[id number] for patient jkgrMNTPWMWKOFTOVY0345-13-39D95:48:00 [facility] 2023-08-08 16:19:00 [id number] QyiBC/gGfKJiQNH99Vx CnQS2STaWaqMZTJac8878-34-49O74:19:00 [facility] ([facility])Hospitalist Progress NoteREPORT#:[id number] REPORT STATUS: SignedREPORT INITIALIZATION DATE:08/08/23 TIME: 1618 PATIENT: MISSY CANALES UNIT #: [id number]#: [id number] [facility] AGE: 68 SEX: M ATTEND: Raphael Ly AUTHOR: Nellie Palmer MDREPT SERVICE DT/TIME: 08/08/23 1619* ALL edits or amendments must be made on the electronic/computer document * SubjectiveChief complaint:Abd pain, N/v Fever Confusion Free Text Subj NotesFree Text Subj Notes:Patient is alert awake, denies any complaint. Mental status is significantly improved. No chest pain no shortness of breath no headache no changes in visionno nausea no vomiting. Review of SystemsAll systems rev neg: except as noted Objective GeneralVS/I O:Vital Signs:Date Time Temp Pulse Resp B/P B/P Pulse O2 O2 Flow FiO2 Mean Ox Delivery Rate/ 1600 103/13 1425 100 Nasal 2 czpeyjl51/13 1200 Nasal 2 rdtucdz90/ 1128 100 Nasal 2 aqbuchz72/13 0800 Nasal 2 /13 0752 96 100 4003/13 0752 100 BiPAP 4003/13 0629 87 25 45746/13 0620 91 22 145/64 92 21454/13 0610 96 22 151/62 98 21418/13 0600 110 23 169/77 110 63272/13 0550 110 23 152/80 109 83831/13 0540 113 23 152/70 100 53804/13 0530 120 23 165/69 99 23835/13 0522 112 23 163/77 110 87797/13 0521 114 23 173/107 129 48268/13 0510 112 21 148/67 96 04585/13 0500 118 26 154/70 100 49816/13 0442 805 090 6399/13 0441 109 19 169/77 110 35870/13 0430 101 17 144/68 98 28512/13 0420 101 21 136/64 92 74500/13 0410 101 22 133/61 88 14759/13 0400 100.003/13 0400 102 19 138/61 88 48227/13 0350 101 20 139/64 92 60862/13 0340 101 22 145/66 95 06917/13 0330 100 22 151/66 95 32037/13 0320 100 23 147/65 94 00513/13 0310 101 22 146/63 91 21781/13 0300 103 22 139/63 90 08702/13 0250 103 20 142/63 91 48715/13 0240 102 22 152/67 97 59868/13 0230 103 23 153/66 95 73055/13 0220 101 22 144/70 100 64348/13 0210 101 20 139/66 95 24225/13 0200 101 22 138/65 93 81636/13 0150 101 22 133/63 90 55070/13 0140 100 28 147/64 92 27515/13 0130 100 19 131/63 90 00440/13 0120 100 20 135/63 91 31374/13 0110 99 20 133/64 92 47041/13 0100 99 21 125/58 83 08642/13 0050 96 23 125/64 86 32252/13 0040 96 19 129/65 92 30455/13 0030 96 21 127/59 85 76988/13 0020 94 23 125/58 83 87650/13 0010 94 25 133/60 87 16163/13 0000 99.603/13 0000 98 21 135/61 88 14824/12 2350 95 22 134/63 91 47564/12 2340 94 20 130/60 88 49632/12 2332 100 Ventilator 4003/12 2330 94 20 133/65 91 38830/12 2329 94 100 4003/12 2320 93 27 130/63 90 65455/12 2310 94 23 128/63 89 27114/12 2300 95 25 130/66 92 32013/12 2250 95 24 133/65 94 35977/12 2240 95 26 134/66 92 39880/12 2230 96 28 132/63 91 93854/12 2220 95 27 125/61 87 94669/12 2210 93 31 123/59 85 25171/12 2200 94 31 126/61 88 08517/12 2150 97 26 128/61 88 49546/12 2140 101 26 128/60 86 54415/12 2130 110 25 145/70 101 96823/12 2120 111 24 142/67 95 34303/12 2110 111 22 131/65 92 64174/12 2100 110 27 134/65 92 85342/12 2050 109 25 136/65 94 08723/12 2040 110 24 137/65 94 47448/12 2030 109 24 137/64 92 06936/12 2020 110 24 146/70 98 62479/12 2010 109 24 127/67 89 58609/12 2000 99.603/12 2000 Nasal 3 fncsbbe34/12 2000 109 19 134/61 88 89328/12 1950 109 24 125/65 91 48623/12 1941 108 28 137/64 92 14094/12 1930 108 25 144/67 97 1920 112 23 153/69 99 1900 109 26 152/73 105 1850 109 24 152/68 98 1820 109 23 150/70 101 1750 106 23 137/72 96 1730 107 21 143/69 1650 99 21 145/73 101 1620 91 24 135/71 97 100 24 hour I O ending at 0700: 08/07 0700 08/06 1900 Intake Total 1598.00 325.00 Output Total 725 815 Balance 873.00 -490.00 Intake, Free 200 Water Intake, IV 1300.00 325.00 Intake, Tube 98 Feeding Output, 75 90 Drainage Output, Urine 650 725 PATIENT WEIGHT: Weight (lb): 177Weight (oz): 14.61Weight (kg): 80.700 Medications:Active Meds + DC'd Last 24 HrsAllopurinol (ZYLOPRIM) 300 MG DAILY FEED-TUBE Aspirin (ASPIRIN) 81 MG DAILY FEED-TUBE Clopidogrel Bisulfate (Plavix) 75 MG DAILY FEED-TUBE Tamsulosin HCl (Flomax 0.4 mg) 0.8 MG DAILY FEED-TUBE Atorvastatin Calcium (LIPITOR) 40 MG BEDTIME FEED-TUBE Metoprolol Tartrate (LOPRESSOR) 50 MG Q8HR FEED-TUBE Senna/Docusate Sodium (SENOKOT S) 1 TAB Q12H FEED-TUBE Sodium Chloride (0.45% Sodium Chloride) 500 ML BOLUS ONCE ONE IV (DC) Iopamidol (ISOVUE-370 100ML) 100 ML .STK-MED ONE IV (DC) Sodium Bicarbonate (SODIUM BICARBONATE) 50 MEQ ONCE ONE IV (DC) Insulin Human Lispro (HUMALOG) 0 Q6HR SUBQ (DC) Insulin Human Lispro (HUMALOG) 0 Q6HR SUBQ Metoprolol Tartrate (LOPRESSOR) 50 MG Q8HR PO (DC) Dextrose/Water (DEXTROSE 10% IN WATER) 125 ML ASDIR PRN IV (CKD) Dextrose/Water (DEXTROSE 10% IN WATER) 250 ML ASDIR PRN IV (CKD) Glucagon (GLUCAGON) 1 MG ASDIR PRN IM Insulin Glargine (Semglee) 20 UNIT DAILY SUBQ Mupirocin (BACTROBAN 2% 22 GM OINTMENT) 1 APPLIC BID NASAL Metronidazole/Sodium Chloride (metroNIDAZOLE 500MG/NS 100ML) 100 ML Q12H IV Sodium Chloride (SODIUM CHLORIDE 0.9%) 250 ML BOLUS PRN IV Ceftriaxone Sodium (ROCEPHIN) 2,000 MG Q24H IV Sodium Chloride (SODIUM CHLORIDE) 20 MLAtorvastatin Calcium (LIPITOR) 40 MG BEDTIME PO (DC) Latanoprost (XALATAN 2.5 ML OPHTH SOLN) 1 DROP BEDTIME EACH EYE Allopurinol (ZYLOPRIM) 300 MG DAILY PO (DC) Aspirin (ASPIRIN) 81 MG DAILY PO (DC) Clopidogrel Bisulfate (Plavix) 75 MG DAILY PO (DC) Finasteride (PROSCAR) 5 MG DAILY PO (DC) Tamsulosin HCl (Flomax 0.4 mg) 0.8 MG DAILY PO (DC) Timolol Maleate (TIMOPTIC 0.5% 5 ML OPHTH SOLN) 1 DROP BID EACH EYE Brimonidine Tartrate (Alphagan-P 0.2% 5 ML OPHTH SOLN) 1 DROP Q8HR EACH EYE Hydralazine HCl (APRESOLINE) 10 MG Q6H PRN PRN IV Ondansetron HCl (ZOFRAN) 4 MG Q4H PRN PRN IV Dietitian nutrition assessmentThe data set between the solid lines has been imported from the dietitian's assessment. BMI Calculated: 27.9Nutrition related diagnosis: OverweightNutrition diagnosis details: BMI 25-29.9Nutrition problem: Inadequate oral intakeNutrition etiology: PT LETHARGIC /SWALLOWING Nutrition signs and symptoms: ENTERAL NUTRITION TO MEET , ENERGY NEEDS Nutrition prescription: RECOMMEND: VITAL AF@ 68 MLS WILL PROVIDE: 2016/ GMS/1362 MLS FW/DAILY Dietitian name: Rohan Sarah, DIETAssessment completed: 08/07/23 Physical ExamGeneral appearance: alertHead/Eyes: atraumatic, normocephalic, PERRLAENT: moist mucosal membranes, normal dentitionCardiovascular: normal heart sounds, regular rate rhythmRespiratory: aerating well, symmetric expansion, no distressAbdomen: non-tender, normal bowel soundsGenitourinary: no bladder distention, no flank painExtremities: no clubbing, no cyanosisMusculoskeletal: no muscle spasmNeuro/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: alert, normal speech ResultsFindings/Data:Laboratory Tests 08/07 0511 Blood Gas Puncture Site R Brach VBG pH (7.33 - 7.45) 7.310 L VBG pCO2 (43 - 47 mmHg) 43.7 VBG pO2 (10 - 50 mmHG) 30.0 VBG HCO3 (22 - 27 MMOL/L) 22.0 POC VBG Total CO2 23.3 VBG O2 Saturation (60 - 80 %) 51.5 L VBG Base Excess (-4.0 - 4.0 MMOL/L) -4.2 L O2 Delivery Device BiPAP FiO2 (%) 40.0 PEEP (cmH2O) 5 Laboratory Tests 08/07 08/07 08/07 08/07 08/06 1433 1139 0455 0455 2348Chemistry Sodium (134 - 147 mEq/L) 155 H 155 H Potassium (3.4 - 5.0 mEq/L) 3.9 3.5 Chloride (100 - 108 mEq/L) 124 H 124 H Carbon Dioxide (21 - 33 mEq/l) 22 20 L Anion Gap (0 - 20) 13 15 BUN (7 - 25 mg/dL) 26 H 27 H Creatinine (0.6 - 1.3 mg/dL) 0.7 1.2 Glomerular Filtr Rate (70 - 80) 99.1 H 65.1 L Glucose (77 - 141 mg/dL) 184 H 198 H POC Glucose (70 - 110 MG/DL) 162 H 190 H Lactic Acid (0.4 - 1.9 mmol/l) 2.0 H Calcium (8.0 - 10.5 mg/dL) 8.1 7.9 L Total Bilirubin (0.0 - 1.0 mg/dL) 1.30 H AST (8 - 34 IUnit/L) 138 H ALT (10 - 49 IUnit/L) 101 H Total Alk Phosphatase (20 - 125 IUnit/L) 144 H Total Protein (6.4 - 8.2 g/dL) 6.1 L Albumin (3.4 - 5.0 g/dL) 1.90 L 08/06 08/06 08/06 2305 1838 1755 Chemistry POC Glucose (70 - 110 MG/DL) 295 H Lactic Acid (0.4 - 1.9 mmol/L) 3.5 H 3.1 H Laboratory Tests 08/07 08/07 1433 0455 Hematology WBC (4.5 - 11.0 x10 3/uL) 14.5 H RBC (4.00 - 5.60 x10 6/uL) 3.13 L Hgb (12.5 - 16.9 g/dL) 9.5 L 9.5 L Hct (37.5 - 50.7 %) 28.3 L 28.6 L MCV (81.0 - 99.0 fL) 91.4 MCH (27.0 - 33.0 pg) 30.4 MCHC (33.0 - 37.0 g/dL) 33.2 RDW (11.5 - 14.5 %) 14.7 H Plt Count (150 - 400 x10 3/uL) 216 MPV (7.0 - 9.0 fL) 10.9 H Neut % (Auto) (56.0 - 77.0 %) 80.0 H Lymph % (Auto) (14.0 - 32.0 %) 10.6 L Evans % (Auto) (4.8 - 9.0 %) 7.6 Eos % (Auto) (0.3 - 3.7 %) 0.6 Baso % (Auto) (0.0 - 2.0 %) 0.1 Neut # (Auto) (2.0 - 7.6 x10 3/uL) 11.61 H Lymph # (Auto) (1.0 - 3.8 x10 3/uL) 1.54 Evans # (Auto) (0.1 - 0.8 x10 3/uL) 1.10 H Eos # (Auto) (0.0 - 0.2 x10 3/uL) 0.08 Baso # (Auto) (0.0 - 0.2 x10 3/uL) 0.02 Abs Immat Gran (auto) (0.00 - 0.03 x10 3/uL) 0.16 H Immature Gran % (0.0 - 2.0 %) 1.1 Nucleated RBC % (0 - 0 %) 0.0 Nucleated RBCs # (Man) (0.0 - 0.1 x10 3/uL) 0.00 InterpretationI independently reviewed the [ ] and my interpretation is [ ] Treatment Prophylaxis Treatment ProphylaxisOxygen: room air Diagnosis, Assessment Plan Free Text DxA P NotesFree text DxA P notes:Assessment and Plan: - Acute Cholangitis/Cholelithiasis with distended gallbladder.- Elevated LFTs and Bilirubin due to Possible Acute Chloangitis.- Elevated Troponin could be demand Ischemia.- Abd pain and N/V.- Confusion- ARELY.- Hyperglycemia.- Sepsis; tachycardia, Bcx Gram neg rods- HX of HTN/DM type II/HLD and CAD s/p stent. Plan:-Telemonitoring, strict vital monitor, strict I and O's, monitor, replace electrolytes, EKG reviewed shows multiple PVCs. -Chronic artery disease, recent PCI, continue aspirin/Plavix-Status post cholecystostomy tube placement on IV ceftriaxone/Flagyl.-CBD normal on ultrasound MRCP showed no evidence of choledocholithiasis large fluid collection within the liver could be secondary to gallbladder perforation. CT abdomen from this a.m. reviewed by general surgery-s/p IR drainage of liver abscess and gallbladder, blood in drain bags today, pton DAPT, cont to monitor, hgb 9.5 (11.4) (12.2)-Mental status improved however continues to have right-sided weakness. Neurology following- present at the bedside, case discussed. Patient most likely will discharge home once medically stable at 0807 RPT #:[id number] OF REPORTPRProgress [id number]:19:00G.[id number] for patient ioxiMNXWBUYQCZKDLY2345-90-02N26:08:05 [facility] 2023-08-08 14:51:00 [id number]/gvp0ACPC9w0DH 3KdGaFnmJ97jjOgmQkz o2p/PkXZPV54thTe15998-75-13Y78:51:00 [facility] Progress NoteREPORT#:[id number] REPORT STATUS: SignedREPORT INITIALIZATION DATE:08/08/23 TIME: 1450 PATIENT: MISSY CANALES UNIT #: [id number]#: [id number] [address] AGE: 68 SEX: M ATTEND: Raphael Ly MDADM AUTHOR: Lisa Cancino MDREPT SERVICE DT/TIME: 08/08/231450* ALL edits or amendments must be made on the electronic/computer document * SubjectiveChief complaint:Elevated LFtsHPI:68 year old man s/p cardiac stents 2 weeks ago who was sent to the hospital withelevated LFTs and possible acute cholecystitis. Pt had a stenet recently placed and was started on DAPT. Pt had labs showing elevated LFTs and was sent here forevaluation. Labs showed leukocytosis 15k. Elevated Tbili 3.7. Dbili 2.8. AST 79,ALT 105 and ALP 225. RUQ U/S showed possible cholecystitis and normal CBD of 4 mm in diatmeter. Pt denies pain. No dark urine or peyton-color stool 08/03; patient feels well. MRCP reviewed. No choledocholithiasis. Fluid collection at the liver could be related secondary to gallbladder perforation. LFTs and white count are down. 08/04: Plan for IR for cholecystostomy tube placement. LFts stable. WBC elevated.Was confused this am but improving. NO pain. No fevers. Added flagyl to his Abx regimen 08/05: NO new complaints. IR for abscess drain and cholecystostomy tube 08/06: Transferred overnight to ICU due to AMS. S/P IR with cholecystostomy tube and abscess drain 08/07: severely constipated. NGT in with feeds. drains in. More awake today and oriented. right sided weakness likely acute stroke. MRI brain reviewed- small stroke. KUB reviewed Objective Physical ExamHEENT: EOMICardiovascular: normal heart soundsRespiratory: clear to auscultationAbdomen: non-tenderExtremities: no edema Diagnosis, Assessment PlanProblem List/A P: 1. Elevated LFTs Free Text A P:cholestatic pattern. CBD normal on RuQ U/S MRCP showed no evidence of choledocholithiasis.Large fluid collection within the liver could be secondary to gallbladder perforation.Recommend surgical evaluation again.Continue with antibiotics. Add flagyl s/p cholecystostomy tube and drainage of cystic fluid collection. Awaiting culture bowel regimen Surgery consultation reviewed. Agree with plan Acute strokeconstipation: bowel regimenWill follow at 1455 RPT #:[id number] OF REPORTPRProgress tubu2924-47-25A21:51:00G.[id number] for patient hcvpPUIWZGZNEALLCK8475-89-83K53:55:22 [facility] 2023-08-08 14:05:00 [id number] 1TaAftCV4JsqtY7za86 Xj9t7sV2PiJm0E6MK8803-88-88U04:05:00 [facility] ([facility])Critical Care Progress NoteREPORT#:[id number] REPORT STATUS: SignedREPORT INITIALIZATION DATE:08/08/23 TIME: 1404 PATIENT: MISSY CANALES UNIT #: [id number]#: [id number] [address] [birth year] AGE: 68 SEX: M ATTEND: Raphael Ly AUTHOR: Jake Contreras PAREPT SERVICE DT/TIME: 08/08/231404* ALL edits or amendments must be made on the electronic/computer document * Jake Contreras 08/08/23 1405:SubjectiveChief complaint:Altered mental statusHPI:Patient is a 68 year old man with a past medical history of hypertension, hyperlipidemia, diabetes, and coronary artery disease who was hospitalized for cholecystitis became altered acutely, leading to a rapid response called this evening. Reviewing patient's chart, it appears that he recently underwent percutaneous drain placement for his cholecystitis. Also reviewing the chart, it appears that patient's indicated that he has been having a decline over the past 5 days, which prompted his evaluation in the hospital. Per chart review, patient appears to have already been evaluated for his altered mental status by neurology. A CT angio of the head and neck was obtained with evidenceshowing of severe stenosis of the M1. Neurology's recommendation was for medical management. Review of the CT angio of the head and neck that was performed, at that time did not demonstrate large vessel obstruction. A repeat CT of the head without contrast performed to evaluate for possible bleeding given the most recent mental status change. No family was present at bedside initially. Patient admitted to ICU for further monitoring and evaluation. Critical care medicine was consulted for further assistance in the patient's verbal altered mentation. Review of SystemsUnable to obtain due to:AMS Objective GeneralVS/I OLast Documented: Result Date Time Pulse Ox 100 08/07 1128 O2 Delivery Nasal cannula 08/07 1128 O2 Flow Rate 2 08/07 1128 FiO2 40 08/07 0752 Pulse 96 08/07 0752 Resp 25 08/07 0629 B/P 145/64 08/07 0620 B/P Mean 92 08/07 0620 Temp 37.8 08/07 0400 24 hour I O ending at 0700: 08/07 0700 08/06 1900 Intake Total 1598.00 325.00 Output Total 725 815 Balance 873.00 -490.00 Intake, Free 200 Water Intake, IV 1300.00 325.00 Intake, Tube 98 Feeding Output, 75 90 Drainage Output, Urine 650 725 PATIENT WEIGHT: Weight (lb): 177Weight (oz): 14.61Weight (kg): 80.700 Physical ExamGeneral appearance: altered mental status, alert, awakeHead/eyes: atraumatic, clear cornea, normal conjunctiva/sclera, PERRLENT: dry mucosal membraneNeck: normal thyroid, no masses or swellingCardiovascular: tachycardia, no rubRespiratory: rhonchi, symmetric expansion, no distressAbdomen: (Percutanous drain in place), soft, non-tenderExtremities: abnormal capillary refill, no clubbing, no cyanosis, no edemaMusculoskeletal normal inspectionNeuro/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: altered mental status, alert, right upper hemiplegia Skin: dry, intact, normal color, normal temperature, no rashPsychiatry: unable to evaluate Diagnosis, Assessment PlanFree text A P:Patient is a 68 year old man with a past medical history of hypertension, hyperlipidemia, diabetes, and coronary artery disease who was hospitalized for cholecystitis became altered acutely, leading to a rapid response called this evening. Patient transferred to the iCU and critical care medicine was conuslted. Level of Care: ICU Code Status: Full Code INPUT/OUTPUT LINES/TUBES/DRAINS ASSESSMENT PLAN 08/06 BIPAP support, 10/ 40%, 7.33 29 173 15, wean off as tolerated, grant tubesin place, lactic acid trending up, ceftriaxone and flagyl, CT brain negative, MRI shows subacute ischemia, neurology on board. Hypergycemia 08/07 Off BIPAP support, nasal cannula, grant tube in place, CT ab pelvis to confirm placement, lactic acid trended down, c/w abx. MRI shows subacute ischemia, right upper extremity remains flaccid, aphasia persistent, neurology on board. PULMONARY: BIPAP1. Atelectasis prevention - Incentive Spirometry q1h as tolerated - OOB and ambulation as tolerated CARDIOVASCULAR / FLUIDS:1. HTN: BP is adequate - Telemetry with blood pressure monitoring -Resume home medications 2. Hyperlipidemia -Resume home medications 3. Coronary Artery Disease -Hx coronary stent placement -Followed by Cardiology GI / PELVIS / NUTRITION 1. Cholecystits-s/p cholecystostomy tube placement - Ceftriaxone/ Flagyl per ID recommendations-GI consulted and following patient 2. Mild protein-calorie malnutrition: On admission - Diet recommendations per registered dietician3. GIB prophylaxis: - Protonix RENAL / ELECTROLYTES / ACID-BASE / :1. Hypernatremia -Most likley secondary to volume depletion - IVF replacemet - Avoid nephrotoxic agents and modify medications renally excreted - Repeat serial BMP -Urine electrlytes/Osmolarity -Monitor UOP and Strict I/O's and monitor electrolytes and replace per protocol INFECTIOUS DISEASE:1. Citrobacter koserii bacteremia -Antibiotics adjusted per Infectious Diseases -Resume current regimen -Supportive care HEMATOLOGY / ONCOLOGY / COAGULATION: 1. Monitor Hgb/Hct; if Hgb < 7 then transfuse according to clinical status and guidelines2. Lovenox for DVT prophylaxis ENDOCRINE1. Diabetes Mellitus -Poorly controlled -Accu checks per protocol if needed -Maintain blood sugar < 180 mg/dl -ISS high scale -Lantus q daily MUSCULOSKELETAL / DERMATOLOGICAL:1. Monitor for skin breakdown - OOB to chair - PT/OT NEUROLOGY / PSYCHIATRY:1. Hx of ischemic cerebral infarct -Statins/ASA/ -PT/OT2. Bilatral MCA stenosis -Management per Neurology-Not candidate for TNK SOCIAL:1. Family Communication - arrived late, but well discuss true acorringly Critical Care Time: 40 minutes This time excludes separately billable procedures or tests Due to a high probability of clinically significant, life threatening deterioration, the patient required my highest level of preparedness to intervene emergently and I personally spent this critical care time directly andpersonally managing the patient. This critical care time included obtaining a history; examining the patient; pulse oximetry; ordering and review of studies; arranging urgent treatment with development of a management plan; evaluation of patient's response to treatment;frequent reassessment; and, discussions with other providers.This critical care time was performed to assess and manage the high probability of imminent, life-threatening deterioration that could result in multi-organ failure. It was exclusive of separately billable procedures and treating other patients Quality: Gen Med Crit Care Current MedicationsCurrent medication review:I attest that the foregoing medication list in the medical record is true, accurate, and complete to the best of my knowledge. Advanced Care Plan 65 or OlderDiscussed with: patient, surrogate decis. maker ANA MARIA GREEN 08/08/23 1544:Diagnosis, Assessment PlanFree text A P:Agree with the findings and plan as documented with APPD/W the case in detailsReviewed chart and rounded on the patient at 1409 at 1544 RPT #:[id number] OF REPORTPRProgress lzfv7936-26-67G50:05:00G.[id number] for patient gpjvFYDNTVVINJJHJC4909-36-48X82:09:44 [facility] 2023-08-08 12:43:00 [id number]P k7Ai30yQGnE0/8X5vhV 9qB4ZIZGiM2NAeoQO2292-70-96H48:43:00 [facility] ([facility])Surgical Oncology Progress NotREPORT#:[id number] REPORT STATUS: SignedREPORT INITIALIZATION DATE:08/08/23 TIME: 1242 PATIENT: MISSY CANALES UNIT #: [id number]#: [id number] [address] [birth year] AGE: 68 SEX: M ATTEND: Raphael Ly [facility] AUTHOR: Michael Lakhani MDREPT SERVICE DT/TIME: 08/08/23 1243* ALL edits or amendments must be made on the electronic/computer document * SubjectiveChief complaint:liver abscess w/ possible gallbladder fistulastrokeHPI:S: still altered this AM, on BiPAP, abd distended but soft, IR drain and C-tube both with hugh blood, hgb down 9.5 (11.4), HD stable, tachycardic, wbc down 14.5 (17), cr trending down, urine concentrated. PEGen: NADHEENT: normocephalic, atraumatic, anicteric sclera, SBFT in placechest; No resp distressCV: perfusing wellabd: S, NT, minimally distended, no HMS, no rebound or guarding, no previous scars noted; IR drains x2 w/ hugh blood in bagsext; WWPneuro: AMS Objective GeneralVS/I O:Last Documented: Result Date Time Pulse Ox 100 08/07 1128 O2 Delivery Nasal cannula 08/07 1128 O2 Flow Rate 2 08/07 1128 FiO2 40 08/07 0752 Pulse 96 08/07 0752 Resp 25 08/07 0629 B/P 145/64 08/07 0620 B/P Mean 92 08/07 0620 Temp 100.0 08/07 0400 Vital SignsDate Temp Pulse Resp B/P B/P Mean Pulse Ox ChU052/12-08/07 99.5-100.0 87-122 17-31 123-178/58-107 83-129 100 40 24 hour I O ending at 0700: 08/07 0700 08/06 1900 Intake Total 1598.00 325.00 Output Total 725 815 Balance 873.00 -490.00 Intake, Free 200 Water Intake, IV 1300.00 325.00 Intake, Tube 98 Feeding Output, 75 90 Drainage Output, Urine 650 725 PATIENT WEIGHT: Weight (lb): 177Weight (oz): 14.61Weight (kg): 80.700 Medications:Active Meds + DC'd Last 24 HrsSenna/Docusate Sodium (SENOKOT S) 1 TAB Q12H FEED-TUBE Sodium Chloride (0.45% Sodium Chloride) 500 ML BOLUS ONCE ONE IV (DC) Iopamidol (ISOVUE-370 100ML) 100 ML .STK-MED ONE IV (DC) Sodium Bicarbonate (SODIUM BICARBONATE) 50 MEQ ONCE ONE IV (DC) Insulin Human Lispro (HUMALOG) 0 Q6HR SUBQ (DC) Insulin Human Lispro (HUMALOG) 0 Q6HR SUBQ Metoprolol Tartrate (LOPRESSOR) 50 MG Q8HR PO Lactated Ringer's (LACTATED RINGERS) 1,000 ML BOLUS ONCE ONE IV (DC) Dextrose/Water (DEXTROSE 10% IN WATER) 125 ML ASDIR PRN IV (CKD) Dextrose/Water (DEXTROSE 10% IN WATER) 250 ML ASDIR PRN IV (CKD) Glucagon (GLUCAGON) 1 MG ASDIR PRN IM Insulin Human Lispro (HUMALOG) 0 Q4HR SUBQ (DC) Insulin Glargine (Semglee) 20 UNIT DAILY SUBQ Mupirocin (BACTROBAN 2% 22 GM OINTMENT) 1 APPLIC BID NASAL Dextrose/Water (DEXTROSE 10% IN WATER) 125 ML ASDIR PRN IV (DC) Dextrose/Water (DEXTROSE 10% IN WATER) 250 ML ASDIR PRN IV (DC) Glucagon (GLUCAGON) 1 MG ASDIR PRN IM (DC) Metronidazole/Sodium Chloride (metroNIDAZOLE 500MG/NS 100ML) 100 ML Q12H IV Sodium Chloride (SODIUM CHLORIDE 0.9%) 250 ML BOLUS PRN IV Ceftriaxone Sodium (ROCEPHIN) 2,000 MG Q24H IV Sodium Chloride (SODIUM CHLORIDE) 20 MLAtorvastatin Calcium (LIPITOR) 40 MG BEDTIME PO Latanoprost (XALATAN 2.5 ML OPHTH SOLN) 1 DROP BEDTIME EACH EYE Allopurinol (ZYLOPRIM) 300 MG DAILY PO Aspirin (ASPIRIN) 81 MG DAILY PO Clopidogrel Bisulfate (Plavix) 75 MG DAILY PO Finasteride (PROSCAR) 5 MG DAILY PO (DC) Losartan Potassium (COZAAR) 25 MG DAILY PO (DC) Tamsulosin HCl (Flomax 0.4 mg) 0.8 MG DAILY PO Timolol Maleate (TIMOPTIC 0.5% 5 ML OPHTH SOLN) 1 DROP BID EACH EYE Brimonidine Tartrate (Alphagan-P 0.2% 5 ML OPHTH SOLN) 1 DROP Q8HR EACH EYE Metoprolol Tartrate (LOPRESSOR) 50 MG BID PO (DC) Hydralazine HCl (APRESOLINE) 10 MG Q6H PRN PRN IV Ondansetron HCl (ZOFRAN) 4 MG Q4H PRN PRN IV Dietitian nutrition assessmentThe data set between the solid lines has been imported from the dietitian's assessment. BMI Calculated: 27.9Nutrition related diagnosis: OverweightNutrition diagnosis details: BMI 25-29.9Nutrition problem: Inadequate oral intakeNutrition etiology: PT LETHARGIC /SWALLOWING Nutrition signs and symptoms: ENTERAL NUTRITION TO MEET , ENERGY NEEDS Nutrition prescription: RECOMMEND: VITAL AF@ 68 MLS WILL PROVIDE: GMS/1362 MLS FW/DAILY Dietitian name: Rohan Sarah, DIETAssessment completed: 08/07/23 ResultsFindings/Data:Laboratory Tests 08/08/23 0455:[Embedded Image Not Available]Laboratory Tests 08/07 0511 Blood Gas Puncture Site R Brach VBG pH (7.33 - 7.45) 7.310 L VBG pCO2 (43 - 47 mmHg) 43.7 VBG pO2 (10 - 50 mmHG) 30.0 VBG HCO3 (22 - 27 MMOL/L) 22.0 POC VBG Total CO2 23.3 VBG O2 Saturation (60 - 80 %) 51.5 L VBG Base Excess (-4.0 - 4.0 MMOL/L) -4.2 L O2 Delivery Device BiPAP FiO2 (%) 40.0 PEEP (cmH2O) 5 Laboratory Tests 08/07 08/07 08/07 08/06 08/06 1139 0455 0455 2348 2305 Chemistry Sodium (134 - 147 mEq/L) 155 H Potassium (3.4 - 5.0 mEq/L) 3.5 Chloride (100 - 108 mEq/L) 124 H Carbon Dioxide (21 - 33 mEq/l) 20 L Anion Gap (0 - 20) 15 BUN (7 - 25 mg/dL) 27 H Creatinine (0.6 - 1.3 mg/dL) 1.2 Glomerular Filtr Rate (70 - 80) 65.1 L Glucose (77 - 141 mg/dL) 198 H POC Glucose (70 - 110 MG/DL) 162 H 190 H Lactic Acid (0.4 - 1.9 mmol/l) 2.0 H 3.5 H Calcium (8.0 - 10.5 mg/dL) 7.9 L Total Bilirubin (0.0 - 1.0 mg/dL) 1.30 H AST (8 - 34 IUnit/L) 138 H ALT (10 - 49 IUnit/L) 101 H Total Alk Phosphatase (20 - 125 IUnit/L) 144 H Total Protein (6.4 - 8.2 g/dL) 6.1 L Albumin (3.4 - 5.0 g/dL) 1.90 L 08/06 08/06 08/06 1838 1755 1537 Chemistry POC Glucose (70 - 110 MG/DL) 295 H 371 H Lactic Acid (0.4 - 1.9 mmol/l) 3.1 H Laboratory Tests 08/07 0455 Hematology WBC (4.5 - 11.0 x10 3/uL) 14.5 H RBC (4.00 - 5.60 x10 6/uL) 3.13 L Hgb (12.5 - 16.9 g/dL) 9.5 L Hct (37.5 - 50.7 %) 28.6 L MCV (81.0 - 99.0 fL) 91.4 MCH (27.0 - 33.0 pg) 30.4 MCHC (33.0 - 37.0 g/dL) 33.2 RDW (11.5 - 14.5 %) 14.7 H Plt Count (150 - 400 x10 3/uL) 216 MPV (7.0 - 9.0 fL) 10.9 H Neut % (Auto) (56.0 - 77.0 %) 80.0 H Lymph % (Auto) (14.0 - 32.0 %) 10.6 L Evans % (Auto) (4.8 - 9.0 %) 7.6 Eos % (Auto) (0.3 - 3.7 %) 0.6 Baso % (Auto) (0.0 - 2.0 %) 0.1 Neut # (Auto) (2.0 - 7.6 x10 3/uL) 11.61 H Lymph # (Auto) (1.0 - 3.8 x10 3/uL) 1.54 Evans # (Auto) (0.1 - 0.8 x10 3/uL) 1.10 H Eos # (Auto) (0.0 - 0.2 x10 3/uL) 0.08 Baso # (Auto) (0.0 - 0.2 x10 3/uL) 0.02 Abs Immat Gran (auto) (0.00 - 0.03 x10 3/uL) 0.16 H Immature Gran % (0.0 - 2.0 %) 1.1 Nucleated RBC % (0 - 0 %) 0.0 Nucleated RBCs # (Man) (0.0 - 0.1 x10 3/uL) 0.00 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 now w/ tachycardia, fevers, and bacteremia, w/ worsening AMS and supsected ischemic stroke-s/p IR drainage of liver abscess and gallbladder, blood in drain bags today, pton DAPT, cont to monitor, hgb 9.5 (11.4) (12.2)-CTA this AM w/o obvious bleed, drains appear roughly in proper position, official read pending-cont IV abx, ID on board, appreciate recs-endocrine consulted for hyperglycemia, which continues to be elevated, appreciate input-neurology consulted for AMS, stroke workup, r/o other causes, appreciate input-cardiology consulted, appreciate input-given AMS, SBFT placed, recommend ENVIRONMENTAL PROTECTION ECONOMIST eval when more lucid for swallow eval andadvance diet as tolerated when acute issues have resolved-pt will need interval cholecystectomy in the future, currently controlled with cholecystostomy tube and IR drain for liver abscess, given recent stroke, recentPCI on DAPT and bacteremia, not a good operative candidate currentlydispo: cont icu care at 1249 RPT #:[id number] OF REPORTPRProgress dnle1990-35-71V31:43:00G.[id number] for patient hpzjGHSRRUQFAHZKYZ1993-48-12P05:50:16 [facility] 2023-08-08 12:27:00 [id number] AeMzvRjdP/vtLnYyrnu zS/N0FqhgBi3SeQ43729-47-28X27:27:00 [facility] ([facility])Endocrinology Progress NoteREPORT#:[id number] REPORT STATUS: SignedREPORT INITIALIZATION DATE:08/08/23 TIME: 1227 PATIENT: MISSY CANALES UNIT #: [id number]#: [id number] [address] [birth year] AGE: 68 SEX: M ATTEND: Raphael Ly MDADM AUTHOR: Agus Duckworth APRNNPREPT SERVICE DT/TIME: 08/08/23 1140* ALL edits or amendments must be made on the electronic/computer document * SubjectiveChief complaint:f/u DM IIwife at bedside RN at bedside TF on hold Objective GeneralVS:Last Documented: Result Date Time Pulse Ox 100 08/07 1128 O2 Delivery Nasal cannula 08/07 1128 O2 Flow Rate 2 08/07 1128 FiO2 40 08/07 0752 Pulse 96 08/07 0752 Resp 25 08/07 0629 B/P 145/64 08/07 0620 B/P Mean 92 08/07 0620 Temp 100.0 08/07 0400 PATIENT WEIGHT: Weight (lb): 177Weight (oz): 14.61Weight (kg): 80.700 Medications:Active Meds + DC'd Last 24 HrsSenna/Docusate Sodium (SENOKOT S) 1 TAB Q12H FEED-TUBE Sodium Chloride (0.45% Sodium Chloride) 500 ML BOLUS ONCE ONE IV (DC) Iopamidol (ISOVUE-370 100ML) 100 ML .STK-MED ONE IV (DC) Sodium Bicarbonate (SODIUM BICARBONATE) 50 MEQ ONCE ONE IV (DC) Insulin Human Lispro (HUMALOG) 0 Q6HR SUBQ (DC) Insulin Human Lispro (HUMALOG) 0 Q6HR SUBQ Metoprolol Tartrate (LOPRESSOR) 50 MG Q8HR PO Lactated Ringer's (LACTATED RINGERS) 1,000 ML BOLUS ONCE ONE IV (DC) Dextrose/Water (DEXTROSE 10% IN WATER) 125 ML ASDIR PRN IV (CKD) Dextrose/Water (DEXTROSE 10% IN WATER) 250 ML ASDIR PRN IV (CKD) Glucagon (GLUCAGON) 1 MG ASDIR PRN IM Insulin Human Lispro (HUMALOG) 0 Q4HR SUBQ (DC) Insulin Glargine (Semglee) 20 UNIT DAILY SUBQ Mupirocin (BACTROBAN 2% 22 GM OINTMENT) 1 APPLIC BID NASAL Dextrose/Water (DEXTROSE 10% IN WATER) 125 ML ASDIR PRN IV (DC) Dextrose/Water (DEXTROSE 10% IN WATER) 250 ML ASDIR PRN IV (DC) Glucagon (GLUCAGON) 1 MG ASDIR PRN IM (DC) Metronidazole/Sodium Chloride (metroNIDAZOLE 500MG/NS 100ML) 100 ML Q12H IV Sodium Chloride (SODIUM CHLORIDE 0.9%) 250 ML BOLUS PRN IV Ceftriaxone Sodium (ROCEPHIN) 2,000 MG Q24H IV Sodium Chloride (SODIUM CHLORIDE) 20 MLAtorvastatin Calcium (LIPITOR) 40 MG BEDTIME PO Latanoprost (XALATAN 2.5 ML OPHTH SOLN) 1 DROP BEDTIME EACH EYE Allopurinol (ZYLOPRIM) 300 MG DAILY PO Aspirin (ASPIRIN) 81 MG DAILY PO Clopidogrel Bisulfate (Plavix) 75 MG DAILY PO Finasteride (PROSCAR) 5 MG DAILY PO (DC) Losartan Potassium (COZAAR) 25 MG DAILY PO (DC) Tamsulosin HCl (Flomax 0.4 mg) 0.8 MG DAILY PO Timolol Maleate (TIMOPTIC 0.5% 5 ML OPHTH SOLN) 1 DROP BID EACH EYE Brimonidine Tartrate (Alphagan-P 0.2% 5 ML OPHTH SOLN) 1 DROP Q8HR EACH EYE Metoprolol Tartrate (LOPRESSOR) 50 MG BID PO (DC) Hydralazine HCl (APRESOLINE) 10 MG Q6H PRN PRN IV Ondansetron HCl (ZOFRAN) 4 MG Q4H PRN PRN IV Dietitian nutrition assessmentThe data set between the solid lines has been imported from the dietitian's assessment. BMI Calculated: 27.9Nutrition related diagnosis: OverweightNutrition diagnosis details: BMI 25-29.9Nutrition problem: Inadequate oral intakeNutrition etiology: PT LETHARGIC /SWALLOWING Nutrition signs and symptoms: ENTERAL NUTRITION TO MEET , ENERGY NEEDS Nutrition prescription: RECOMMEND: VITAL AF@ 68 MLS WILL PROVIDE: 2016/126 GMS/1362 MLS FW/DAILY Dietitian name: Rohan Sarah, DIETAssessment completed: 08/07/23 Physical ExamGeneral appearance: alert, awakeHEENT: normocephalicNeck: suppleCardiovascular: regular rate rhythmRespiratory: on oxygenAbdomen: softGenitourinary: not indicatedExtremities: warmNeuro/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: alertSkin: warmFindings/data:Laboratory Tests: 08/07 08/07 08/07 08/07 1139 0511 0455 0455Blood Gas Puncture Site R Brach VBG pH (7.33 - 7.45) 7.310 L VBG pCO2 (43 - 47 mmHg) 43.7 VBG pO2 (10 - 50 mmHG) 30.0 VBG HCO3 (22 - 27 MMOL/L) 22.0 POC VBG Total CO2 23.3 VBG O2 Saturation (60 - 80 %) 51.5 L VBG Base Excess (-4.0 - 4.0 MMOL/L) -4.2 L O2 Delivery Device BiPAP FiO2 (%) 40.0 PEEP (cmH2O) 5Chemistry Sodium (134 - 147 mEq/L) 155 H Potassium (3.4 - 5.0 mEq/L) 3.5 Chloride (100 - 108 mEq/L) 124 H Carbon Dioxide (21 - 33 mEq/l) 20 L Anion Gap (0 - 20) 15 BUN (7 - 25 mg/dL) 27 H Creatinine (0.6 - 1.3 mg/dL) 1.2 Glomerular Filtr Rate (70 - 80) 65.1 L Glucose (77 - 141 mg/dL) 198 H POC Glucose (70 - 110 MG/DL) 162 H Lactic Acid (0.4 - 1.9 mmol/l) 2.0 H Calcium (8.0 - 10.5 mg/dL) 7.9 L Total Bilirubin (0.0 - 1.0 mg/dL) 1.30 H AST (8 - 34 IUnit/L) 138 H ALT (10 - 49 IUnit/L) 101 H Total Alk Phosphatase (20 - 125 IUnit/L) 144 H Total Protein (6.4 - 8.2 g/dL) 6.1 L Albumin (3.4 - 5.0 g/dL) 1.90 LHematology WBC (4.5 - 11.0 x10 3/uL) 14.5 H RBC (4.00 - 5.60 x10 6/uL) 3.13 L Hgb (12.5 - 16.9 g/dL) 9.5 L Hct (37.5 - 50.7 %) 28.6 L MCV (81.0 - 99.0 fL) 91.4 MCH (27.0 - 33.0 pg) 30.4 MCHC (33.0 - 37.0 g/dL) 33.2 RDW (11.5 - 14.5 %) 14.7 H Plt Count (150 - 400 x10 3/uL) 216 MPV (7.0 - 9.0 fL) 10.9 H Neut % (Auto) (56.0 - 77.0 %) 80.0 H Lymph % (Auto) (14.0 - 32.0 %) 10.6 L Evans % (Auto) (4.8 - 9.0 %) 7.6 Eos % (Auto) (0.3 - 3.7 %) 0.6 Baso % (Auto) (0.0 - 2.0 %) 0.1 Neut # (Auto) (2.0 - 7.6 x10 3/uL) 11.61 H Lymph # (Auto) (1.0 - 3.8 x10 3/uL) 1.54 Evans # (Auto) (0.1 - 0.8 x10 3/uL) 1.10 H Eos # (Auto) (0.0 - 0.2 x10 3/uL) 0.08 Baso # (Auto) (0.0 - 0.2 x10 3/uL) 0.02 Abs Immat Gran (auto) (0.00 - 0.03 0.16 Hx10 3/uL) Immature Gran % (0.0 - 2.0 %) 1.1 Nucleated RBC % (0 - 0 %) 0.0 Nucleated RBCs # (Man) (0.0 - 0.1 0.00x10 3/uL) 08/06 08/06 08/06 08/06 08/06 2348 2305 1838 1755 1537 Chemistry POC Glucose (70 - 110 MG/DL) 190 H 295 H 371 H Lactic Acid (0.4 - 1.9 mmol/L) 3.5 H 3.1 H Laboratory Tests: 08/07 08/07 08/07 08/07 1139 0511 0455 0455Blood Gas Puncture Site R Brach VBG pH (7.33 - 7.45) 7.310 L VBG pCO2 (43 - 47 mmHg) 43.7 VBG pO2 (10 - 50 mmHG) 30.0 VBG HCO3 (22 - 27 MMOL/L) 22.0 POC VBG Total CO2 23.3 VBG O2 Saturation (60 - 80 %) 51.5 L VBG Base Excess (-4.0 - 4.0 MMOL/L) -4.2 L O2 Delivery Device BiPAP FiO2 (%) 40.0 PEEP (cmH2O) 5Chemistry Sodium (134 - 147 mEq/L) 155 H Potassium (3.4 - 5.0 mEq/L) 3.5 Chloride (100 - 108 mEq/L) 124 H Carbon Dioxide (21 - 33 mEq/l) 20 L Anion Gap (0 - 20) 15 BUN (7 - 25 mg/dL) 27 H Creatinine (0.6 - 1.3 mg/dL) 1.2 Glomerular Filtr Rate (70 - 80) 65.1 L Glucose (77 - 141 mg/dL) 198 H POC Glucose (70 - 110 MG/DL) 162 H Lactic Acid (0.4 - 1.9 mmol/l) 2.0 H Calcium (8.0 - 10.5 mg/dL) 7.9 L Total Bilirubin (0.0 - 1.0 mg/dL) 1.30 H AST (8 - 34 IUnit/L) 138 H ALT (10 - 49 IUnit/L) 101 H Total Alk Phosphatase (20 - 125 IUnit/L) 144 H Total Protein (6.4 - 8.2 g/dL) 6.1 L Albumin (3.4 - 5.0 g/dL) 1.90 LHematology WBC (4.5 - 11.0 x10 3/uL) 14.5 H RBC (4.00 - 5.60 x10 6/uL) 3.13 L Hgb (12.5 - 16.9 g/dL) 9.5 L Hct (37.5 - 50.7 %) 28.6 L MCV (81.0 - 99.0 fL) 91.4 MCH (27.0 - 33.0 pg) 30.4 MCHC (33.0 - 37.0 g/dL) 33.2 RDW (11.5 - 14.5 %) 14.7 H Plt Count (150 - 400 x10 3/uL) 216 MPV (7.0 - 9.0 fL) 10.9 H Neut % (Auto) (56.0 - 77.0 %) 80.0 H Lymph % (Auto) (14.0 - 32.0 %) 10.6 L Evans % (Auto) (4.8 - 9.0 %) 7.6 Eos % (Auto) (0.3 - 3.7 %) 0.6 Baso % (Auto) (0.0 - 2.0 %) 0.1 Neut # (Auto) (2.0 - 7.6 x10 3/uL) 11.61 H Lymph # (Auto) (1.0 - 3.8 x10 3/uL) 1.54 Evans # (Auto) (0.1 - 0.8 x10 3/uL) 1.10 H Eos # (Auto) (0.0 - 0.2 x10 3/uL) 0.08 Baso # (Auto) (0.0 - 0.2 x10 3/uL) 0.02 Abs Immat Gran (auto) (0.00 - 0.03 0.16 Hx10 3/uL) Immature Gran % (0.0 - 2.0 %) 1.1 Nucleated RBC % (0 - 0 %) 0.0 Nucleated RBCs # (Man) (0.0 - 0.1 0.00x10 3/uL) 08/06 08/06 08/06 08/06 08/06 2348 2305 1838 1755 1537 Chemistry POC Glucose (70 - 110 MG/DL) 190 H 295 H 371 H Lactic Acid (0.4 - 1.9 mmol/L) 3.5 H 3.1 H Diagnosis, Assessment PlanFree Text A P:1.DM KCJhiJ2j 8.2adjust Lantus continue SSI monitor glucose NPO DC Plan: Lantus, Humalog, and Farxiga; follow at next available appointment. 2.Abnormal thyroid functions 08/06 TSH 0.07 FT4 1 recheck in a couple of days 3.Suspected ischemic strokeMRI brain without contrastEchocardiogramTelemetryneurology following 4.Coronary artery diseasePCI on July 03, 2023Echocardiogram preserved LVEFdual antiplateletscardiology following 5. Elevated LFTsGI following 6.MRCP with complex cystic fluid collectionpost drainage surgery following at 1250 at 0809 RPT #:[id number] OF REPORTPRProgress [id number]:27:00G.[id number] for patient [id number]:25:01 [facility]L 2023-08-08 06:02:00 [id number]/Ud [id number] djLUNiW3Xp2GKOIOi5536-92-06A84:02:00 [facility] ([facility])Cardiology Progress NoteREPORT#:[id number] REPORT STATUS: SignedREPORT INITIALIZATION DATE:08/08/23 TIME: 601 PATIENT: MISSY CANALES UNIT #: [id number]#: [id number] [address] AGE: 68 SEX: M ATTEND: Raphael Ly MDADM AUTHOR: Esther Buckner AGACNPREPT SERVICE DT/TIME: 08/08/23 0602* ALL edits or amendments must be made on the electronic/computer document * SubjectiveComments:Awake, right hand paralysis Objective GeneralVS/I O:24 hour I O ending at 0700: 08/07 0700 08/06 1900 Intake Total 1598.00 325.00 Output Total 725 815 Balance 873.00 -490.00 Intake, Free 200 Water Intake, IV 1300.00 325.00 Intake, Tube 98 Feeding Output, 75 90 Drainage Output, Urine 650 725 Vital Signs: Date Time Temp Pulse Resp B/P B/P Pulse O2 O2 Flow FiO2 Mean Ox Delivery Rate 08/07 0442 110 100 40 08/07 0400 37.8 08/07 0000 37.6 08/06 2332 100 Ventilator 40 08/06 2329 94 100 40 08/06 2000 37.6 08/06 2000 Nasal 3 cannula 08/06 193 108 25 144/67 97 100 08/060 112 23 153/69 99 100 08/06 1900 109 26 152/73 105 100 03/12 1850 109 24 152/68 98 100 03/12 1820 109 23 150/70 101 100 03/12 1750 106 23 137/72 96 100 03/12 1730 107 21 143/69 99 03/12 1650 99 21 145/73 101 100 03/12 1620 91 24 135/71 97 100 03/12 1600 37.5 03/12 1540 90 23 139/69 98 100 03/12 1530 92 24 131/72 95 100 03/12 1520 93 23 131/72 95 100 03/12 1510 97 24 133/67 94 100 03/12 1500 105 26 152/70 100 100 03/12 1450 114 26 148/75 106 100 03/12 1440 114 23 158/70 101 100 03/12 1430 113 25 158/71 102 100 03/12 1420 114 25 160/72 103 100 03/12 1410 114 26 160/72 104 100 03/12 1400 114 23 148/66 95 100 03/12 1350 114 22 156/68 98 100 03/12 1340 114 24 162/67 96 100 03/12 1330 116 25 152/69 99 100 03/12 1321 118 23 148/77 104 100 03/12 1310 112 23 148/68 98 100 03/12 1300 115 23 163/60 102 100 03/12 1250 122 29 178/76 109 100 03/12 1240 119 24 161/71 102 100 03/12 1237 120 25 156/68 98 100 03/12 1200 37.4 03/12 1200 61 23 100 03/12 1158 123 23 152/68 98 100 03/12 1130 145 27 100 03/12 1122 129 30 148/70 101 100 03/12 1030 125 30 178/73 105 100 03/12 1020 134 24 155/64 92 99 03/12 1010 94 25 151/63 98 93 03/12 1000 62 25 152/70 100 96 03/12 0950 124 26 159/74 106 87 03/12 0943 126 25 152/67 96 90 03/12 0930 125 27 170/69 99 93 03/12 0900 127 25 163/70 100 99 03/12 0830 125 25 156/70 101 100 03/12 0801 128 23 147/63 91 100 03/12 0800 37.4 03/12 0800 37.4 03/12 0800 BiPAP 08/06 0759 126 100 40 08/06 0730 133 23 149/67 96 100 08/06 0700 129 26 159/71 102 100 PATIENT WEIGHT: Weight (lb): 177Weight (oz): 14.61Weight (kg): 80.700 Medications:Active Meds + DC'd Last 24 HrsInsulin Human Lispro (HUMALOG) 0 Q6HR SUBQ (DC) Insulin Human Lispro (HUMALOG) 0 Q6HR SUBQ Metoprolol Tartrate (LOPRESSOR) 50 MG Q8HR PO Lactated Ringer's (LACTATED RINGERS) 1,000 ML BOLUS ONCE ONE IV (DC) Dextrose/Water (DEXTROSE 10% IN WATER) 125 ML ASDIR PRN IV (CKD) Dextrose/Water (DEXTROSE 10% IN WATER) 250 ML ASDIR PRN IV (CKD) Glucagon (GLUCAGON) 1 MG ASDIR PRN IM Insulin Human Lispro (HUMALOG) 0 Q4HR SUBQ (DC) Insulin Glargine (Semglee) 20 UNIT DAILY SUBQ Insulin Human Lispro (HUMALOG) 0 Q6HR SUBQ (DC) Mupirocin (BACTROBAN 2% 22 GM OINTMENT) 1 APPLIC BID NASAL Dextrose/Water (DEXTROSE 10% IN WATER) 125 ML ASDIR PRN IV (DC) Dextrose/Water (DEXTROSE 10% IN WATER) 250 ML ASDIR PRN IV (DC) Glucagon (GLUCAGON) 1 MG ASDIR PRN IM (DC) Amiodarone HCl (NEXTERONE 150MG/D5W 100ML) 100 ML STAT STA IV (DC) Dextrose/Water (DEXTROSE 5% WATER) 1,000 ML .Q10H IV (DC) Metronidazole/Sodium Chloride (metroNIDAZOLE 500MG/NS 100ML) 100 ML Q12H IV Sodium Chloride (SODIUM CHLORIDE 0.9%) 250 ML BOLUS PRN IV Ceftriaxone Sodium (ROCEPHIN) 2,000 MG Q24H IV Sodium Chloride (SODIUM CHLORIDE) 20 MLDextrose/Water (DEXTROSE 10% IN WATER) 125 ML ASDIR PRN IV (DC) Dextrose/Water (DEXTROSE 10% IN WATER) 250 ML ASDIR PRN IV (DC) Glucagon (GLUCAGON) 1 MG ASDIR PRN IM (DC) Atorvastatin Calcium (LIPITOR) 40 MG BEDTIME PO Latanoprost (XALATAN 2.5 ML OPHTH SOLN) 1 DROP BEDTIME EACH EYE Allopurinol (ZYLOPRIM) 300 MG DAILY PO Aspirin (ASPIRIN) 81 MG DAILY PO Clopidogrel Bisulfate (Plavix) 75 MG DAILY PO Finasteride (PROSCAR) 5 MG DAILY PO Losartan Potassium (COZAAR) 25 MG DAILY PO (DC) Tamsulosin HCl (Flomax 0.4 mg) 0.8 MG DAILY PO Timolol Maleate (TIMOPTIC 0.5% 5 ML OPHTH SOLN) 1 DROP BID EACH EYE Glimepiride (AmaryL) 2 MG C BK PO (DC) Brimonidine Tartrate (Alphagan-P 0.2% 5 ML OPHTH SOLN) 1 DROP Q8HR EACH EYE Metoprolol Tartrate (LOPRESSOR) 50 MG BID PO (DC) Insulin Human Lispro (HUMALOG) 0 AC HS SUBQ (DC) Hydralazine HCl (APRESOLINE) 10 MG Q6H PRN PRN IV Ondansetron HCl (ZOFRAN) 4 MG Q4H PRN PRN IV Physical ExamGeneral appearance: chronically ill appearing, frail, awake, no acute distressNeck: non-tender, no JVDCardiovascular: CV assessment: regular rate and rhythmRespiratory: decreased breath sounds, no distressAbdomen: cholecystostomy tube in placeLower extremity: LE assessment: no edemaMusculoskeletal: decreased ROMNeuro/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: right hemiparesisSkin: dryPsychiatry: unable to evaluate ResultsFindings/Data:Laboratory Tests 08/07 08/06 0511 0823 Blood Gas Puncture Site R Brach L Radial O2 Saturation (90 - 100 %) 99.5 ABG pH (7.35 - 7.45) 7.331 L ABG pCO2 (35.0 - 45 mmHg) 28.9 *L ABG pO2 (80 - 100.0 mmHg) 173.3 H ABG PO2/FiO2 Ratio (mm/Hg) 433.20 ABG HCO3 (22.0 - 26.0 MMOL/L) 15.3 *L ABG Total CO2 16.2 ABG Base Excess (-4.0 - 4.0 MMOL/L) -10.6 L ABG Hematocrit (37.5 - 50.7 %) 35 L ABG Hemoglobin (12.5 - 16.9 G/DL) 11.9 L Tasia Test Positive VBG pH (7.33 - 7.45) 7.310 L VBG pCO2 (43 - 47 mmHg) 43.7 VBG pO2 (10 - 50 mmHG) 30.0 VBG HCO3 (22 - 27 MMOL/L) 22.0 POC VBG Total CO2 23.3 VBG O2 Saturation (60 - 80 %) 51.5 L VBG Base Excess (-4.0 - 4.0 MMOL/L) -4.2 L Sodium (134 - 147 mmol/L) 154 H Potassium (3.4 - 5.0 mmol/L) 4.3 Chloride (100 - 108 mmol/L) 130 H Ionized Calcium (1.12 - 1.32 MMOL/L) 1.25 Lactic Acid (0.9 - 1.7 mmol/l) 1.2 O2 Delivery Device BiPAP BiPAP Vent Mode BiLevel Vent Rate (/MIN) 26 FiO2 (%) 40.0 40.0 PEEP (cmH2O) 5 5 Pressure Support (cmH2O) 10 Laboratory Tests 08/07 08/07 08/06 08/06 08/06 0455 0455 2348 2305 1838 Chemistry Sodium (134 - 147 mEq/L) 155 H Potassium (3.4 - 5.0 mEq/L) 3.5 Chloride (100 - 108 mEq/L) 124 H Carbon Dioxide (21 - 33 mEq/l) 20 L Anion Gap (0 - 20) 15 BUN (7 - 25 mg/dL) 27 H Creatinine (0.6 - 1.3 mg/dL) 1.2 Glomerular Filtr Rate (70 - 80) 65.1 L Glucose (77 - 141 mg/dL) 198 H POC Glucose (70 - 110 MG/DL) 190 H 295 H Lactic Acid (0.4 - 1.9 mmol/l) 2.0 H 3.5 H Calcium (8.0 - 10.5 mg/dL) 7.9 L Total Bilirubin (0.0 - 1.0 mg/dL) 1.30 H AST (8 - 34 IUnit/L) 138 H ALT (10 - 49 IUnit/L) 101 H Total Alk Phosphatase (20 - 125 IUnit/L) 144 H Total Protein (6.4 - 8.2 g/dL) 6.1 L Albumin (3.4 - 5.0 g/dL) 1.90 L 08/06 08/06 08/06 08/06 08/06 1755 1537 1216 1216 0932 Chemistry Sodium (134 - 147 mEq/L) 152 H Potassium (3.4 - 5.0 mEq/L) 4.8 Chloride (100 - 108 mEq/L) 124 H Carbon Dioxide (21 - 33 mEq/l) 17 L Anion Gap (0 - 20) 16 BUN (7 - 25 mg/dL) 26 H Creatinine (0.6 - 1.3 mg/dL) 1.5 H Glomerular Filtr Rate (70 - 80) 49.8 L Glucose (77 - 141 mg/dL) 380 H POC Glucose (70 - 110 MG/DL) 371 H 337 H Lactic Acid (0.4 - 1.9 mmol/l) 3.1 H 3.2 H Calcium (8.0 - 10.5 mg/dL) 8.3 Magnesium (1.6 - 2.6 mg/dL) 2.17 08/06 0823 Chemistry POC Creatinine (0.8 - 1.3 mg/dL) 1.2 POC Glucose (mg/dL) (70 - 110 MG/DL) 434 H Laboratory Tests 08/07 0455 Hematology WBC (4.5 - 11.0 x10 3/uL) 14.5 H RBC (4.00 - 5.60 x10 6/uL) 3.13 L Hgb (12.5 - 16.9 g/dL) 9.5 L Hct (37.5 - 50.7 %) 28.6 L MCV (81.0 - 99.0 fL) 91.4 MCH (27.0 - 33.0 pg) 30.4 MCHC (33.0 - 37.0 g/dL) 33.2 RDW (11.5 - 14.5 %) 14.7 H Plt Count (150 - 400 x10 3/uL) 216 MPV (7.0 - 9.0 fL) 10.9 H Neut % (Auto) (56.0 - 77.0 %) 80.0 H Lymph % (Auto) (14.0 - 32.0 %) 10.6 L Evans % (Auto) (4.8 - 9.0 %) 7.6 Eos % (Auto) (0.3 - 3.7 %) 0.6 Baso % (Auto) (0.0 - 2.0 %) 0.1 Neut # (Auto) (2.0 - 7.6 x10 3/uL) 11.61 H Lymph # (Auto) (1.0 - 3.8 x10 3/uL) 1.54 Evans # (Auto) (0.1 - 0.8 x10 3/uL) 1.10 H Eos # (Auto) (0.0 - 0.2 x10 3/uL) 0.08 Baso # (Auto) (0.0 - 0.2 x10 3/uL) 0.02 Abs Immat Gran (auto) (0.00 - 0.03 x10 3/uL) 0.16 H Immature Gran % (0.0 - 2.0 %) 1.1 Nucleated RBC % (0 - 0 %) 0.0 Nucleated RBCs # (Man) (0.0 - 0.1 x10 3/uL) 0.00 Laboratory Tests 08/06 1216 Toxicology Acetone, Quant (Neg - <20 mg/dL) NEGATIVE - <20 mg/dL Laboratory Tests 08/06 1216 Chemistry Magnesium (1.6 - 2.6 mg/dL) 2.17 Radiology data:Recent Impressions:MAGNETIC RESONANCE IMAGING - MRI BRAIN W/O CONT 08/06 1132 Report Impression - Status: SIGNED Entered: 08/07/2023 1144 IMPRESSION:Small focus of subacute ischemia in the left guo radiata.Chronic microvascular ischemic changes and diffuse cerebral volumeloss. LOCATION: A 1Impression By: Yumiko Pratt M.D.RADIOLOGY - XR ABDOMEN 1V (KUB) 08/06 1216 Report Impression - Status: SIGNED Entered: 08/07/2023 1241 IMPRESSION:Enteric tube tip overlies the stomach.Mild distention of the bowel loops throughout the abdomen.Impression By: Yumiko Pratt M.D. Results: labs reviewed, vital signs reviewed, rhythm personally rev'dTelemetry Interpretation:NSR with PVC Diagnosis, Assessment PlanPlan discussed with: patient, spouse/partner, collaborating MD, nurse Free Text DxA P NotesFree Text DxA P Notes:1. Coronary artery disease s/p recent PCI/TERESA to diagonal artery* Troponin trend is flat* Hx of CABG (2000)* s/p stent placement to diagonal artery on 07/02/23. Still need staged PCI to RCA. * Continue Plavix and aspirin - do not stop Plavix d/t risk of stent thrombosis* Echocardiogram preserved LVEF. 2. Elevated LFTs/acute cholecystitis/liver abscess* s/p cholecystostomy tube placement. * GI on board* ID on board managing antibiotic 3. AMS: MRI brain showed small subacute ischemia in the L coronary radiata * Neurology following 4. Tachycardia with frequent PVCs * HR better, less PVCs* No evidence of atrial fibrillation on telemetry. * Tachycardia likely secondary to SIRS. * Continue metoprolol 50 mg every 8 hours. * Stop losartan to make room for beta-yoav. Medical decision making by Dr. Daniel. at 1335 at 0822 RPT #:[id number] OF REPORTPRProgress [id number]:02:00G.[id number] for patient [id number]:36:25 [facility] 2023-08-07 18:21:00 [id number]/p7lPJ WJ8fBcQd50rJj1ACQMZ XaFPDGKXJMscFSjLP3921-94-97G03:21:00 [facility] ([facility])Infectious Dis. Progress NoteREPORT#:[id number] REPORT STATUS: SignedREPORT INITIALIZATION DATE:08/07/23 TIME: 1820 PATIENT: MISSY CANALES UNIT #: [id number]#: [id number] [address] AGE: 68 SEX: M ATTEND: Raphael Ly [facility] AUTHOR: Jv Colvin NPREPT SERVICE DT/TIME: 08/07/231820* ALL edits or amendments must be made on the electronic/computer document * SubjectiveChief complaint:Abd pain, N/V F/U BacteremiaHPI:Pt is a 68 yo male with PMH of HTN, HLD, DM2, CAD who presented to the er with acute onset abdomina pain with associated symptoms of nausea and vomiting. Pt was found to be septic. Blood cx with Citrobacter. Imaging revealed cholecystitis with abd abscess. Underwent IR drain placement for abscess and cholecystostomy tube placement 08/05. 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 He was transferred to ICUNursing reports:No: complaints. Unable to obtain: altered mental status Review of SystemsUnable to obtain due to:medical status Objective GeneralVS/I O:Vital SignsDate Temp Pulse Resp B/P B/P Mean Pulse Ox HdW470/-08/06 99.3-103.1 126-146 16-40 132-146/73- 94.0-101.8 95-100 40 85 Last Documented: Result Date Time Temp 99.3 08/06 0800 O2 Delivery BiPAP 08/06 0800 Pulse Ox 100 08/06 0759 FiO2 40 08/06 0759 Pulse 126 08/06 0759 O2 Flow Rate 10 08/06 0400 B/P 146/73 08/05 2117 B/P Mean 97.4 08/058 Resp 37 08/05 2117 Vital Signs: Date Time Temp Pulse Resp B/P B/P Pulse O2 O2 Flow FiO2 Mean Ox Delivery Rate 08/06 0800 99.3 08/06 0800 BiPAP 08/06 0759 126 100 40 08/06 0400 100.1 BiPAP 10 08/06 0210 130 100 40 08/06 0000 100.9 Nasal 3 cannula 08/05 2117 103.1 137 37 146/73 97.4 98 Room air 08/05 2104 102.7 144 40 132/75 94.0 95 Room air 08/05 1854 102.9 146 16 135/85 101.8 97 Room air 08/05 1829 140 28 133/81 98.4 100 24 hour I O ending at 0700: 08/06 0700 08/05 1900 Intake Total 2470.00 Output Total 650 Balance 1820.00 Intake, IV 2470.00 Output, 300 Drainage Output, Urine 350 Patient 178 lb Weight Weight Bed scale Measurement Method PATIENT WEIGHT: Weight (lb): 177Weight (oz): 14.61Weight (kg): 80.700 Physical ExamGeneral appearance: altered mental status, lethargic, respiratory supportWound/incision: Location:Cholecystostomy tube- bilious outputRUQ drain- biliousHead/Eyes: atraumatic, normocephalicCardiovascular: tachycardia, no murmurRespiratory: clear to auscultation, aerating well, symmetric expansionAbdomen: non-tender, soft, no distention, percutaneous drains in place in RUQExtremities: no cyanosis, no edemaNeuro/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: altered mental status, awake, mostly non-verbal during the encounterSkin: dry, no rashPsychiatry: unable to evaluate ResultsFindings/Data:Laboratory Tests 08/07/23 1216:[Embedded Image Not Available] 08/07/23 0456:[Embedded Image Not Available] 08/07/23 0244:[Embedded Image Not Available] Current Medications Sig/Geoffrey Start time Last Medication Dose Route Stop Time Status Admin Insulin Human Lispro 0 Q6HR 08/06 1800 DC SUBQ 11/04 1759 Insulin Human Lispro 0 Q6HR 08/06 1600 AC 08/06 SUBQ 11/04 1559 1630 Metoprolol Tartrate 50 MG Q8HR 08/06 1500 AC 08/06 PO 11/04 1459 1537 Lactated Ringer's 1,000 ML BOLUS ONCE ONE 08/06 1345 DC 08/06 IV 08/06 1444 1400 Dextrose/Water 125 ML ASDIR PRN 08/06 1330 CKD IV 11/04 1329 Dextrose/Water 250 ML ASDIR PRN 08/06 1330 CKD IV 11/04 1329 Glucagon 1 MG ASDIR PRN 08/06 1330 AC IM 11/04 1329 Insulin Human Lispro 0 Q4HR 08/06 1300 DC SUBQ 11/04 1259 Insulin Glargine 20 UNIT DAILY 08/06 1230 AC 08/06 SUBQ 11/04 1229 1330 Insulin Human Lispro 0 Q6HR 08/06 1200 DC SUBQ 11/04 1159 Mupirocin 1 APPLIC BID 08/06 1200 AC 08/06 NASAL 08/10 2101 1300 Dextrose/Water 125 ML ASDIR PRN 08/06 1115 DC IV 11/04 1114 Dextrose/Water 250 ML ASDIR PRN 08/06 1115 DC IV 11/04 1114 Glucagon 1 MG ASDIR PRN 08/06 1115 DC IM 11/04 1114 Amiodarone HCl 100 ML STAT STA 08/06 0917 DC IV 08/06 0926 Dextrose/Water 1,000 ML .Q10H 08/06 0415 DC 08/06 IV 11/04 0414 0506 Miscellaneous 1 EACH ASDIR 08/05 2200 DC Information IV 08/12 2159 Piperacillin Sod/ 3.375 GM Q8H 08/05 2200 DC Tazobactam Sod IV 08/12 2159 Sodium Chloride 100 ML Vancomycin HCl 1,145.46 MG Q12H 08/05 2200 DC Sodium Chloride 250 ML IV 08/12 2159 Piperacillin Sod/ 3.375 GM STAT STA 08/05 2155 DC 08/05 Tazobactam Sod IV 08/05 2224 2252 Sodium Chloride 100 ML Vancomycin HCl 1,000 MG STAT STA 08/05 2155 DC 08/05 Sodium Chloride 250 ML IV 08/05 2254 2252 Sodium Chloride 2,290.92 ML BOLUS STA 08/05 2154 DC 08/05 IV 08/05 2155 2154 Metronidazole/Sodium 100 ML Q12H 08/05 1715 AC 08/06 Chloride IV 08/12 1714 1659 Sodium Chloride 250 ML BOLUS PRN 08/05 1700 AC IV 11/03 1659 Ceftriaxone Sodium 2,000 MG Q24H 08/05 1630 AC 08/06 Sodium Chloride 20 ML IV 08/12 1629 1659 Dextrose/Water 125 ML ASDIR PRN 08/05 1330 DC IV 11/03 1329 Dextrose/Water 250 ML ASDIR PRN 08/05 1330 DC IV 11/03 1329 Glucagon 1 MG ASDIR PRN 08/05 1330 DC IM 11/03 1329 Atorvastatin Calcium 40 MG BEDTIME 08/03 2100 AC 08/04 PO 09/02 205 2154 Latanoprost 1 DROP BEDTIME 08/03 2100 AC 08/03 EACH EYE 11/01 205 2124 Allopurinol 300 MG DAILY 08/03 899 AC 08/05 PO 11/01 0859 0848 Aspirin 81 MG DAILY 08/03 899 AC 08/06 PO 11/01 0859 1300 Clopidogrel Bisulfate 75 MG DAILY 08/03 899 AC 08/06 PO 11/01 0859 1300 Finasteride 5 MG DAILY 08/03 899 AC 08/06 PO 11/01 0859 1300 Losartan Potassium 25 MG DAILY 08/03 899 DC 08/06 PO 11/01 0859 1527 Tamsulosin HCl 0.8 MG DAILY 08/03 0800 AC 08/06 PO 11/01 0859 1300 Timolol Maleate 1 DROP BID 08/03 0900 AC 08/05 EACH EYE 11/01 0859 0846 Glimepiride 2 MG C BK 08/03 0800 DC 08/05 PO 11/01 0759 0848 Brimonidine Tartrate 1 DROP Q8HR 08/02 2300 AC 08/06 EACH EYE 10/31 2259 1500 Metoprolol Tartrate 50 MG BID 08/02 2300 DC 08/05 PO 11/01 0859 0848 Insulin Human Lispro 0 AC HS 08/02 1130 DC 08/06 SUBQ 10/31 1129 0935 Hydralazine HCl 10 MG Q6H PRN PRN 08/02 1045 AC 08/06 IV 10/31 1044 0641 Ondansetron HCl 4 MG Q4H PRN PRN 08/02 1045 AC IV 10/31 1044 Radiology data:Recent Impressions:CAT SCAN - CT HEAD/BRAIN W/O CONT 08/05 2327 Report Impression - Status: SIGNED Entered: 08/06/2023 2327 IMPRESSION:No acute intracranial abnormality. No intracranial hemorrhage.Chronic microvascular ischemic changes and mild cerebral volume loss. LOCATION: B2 Impression By: Yumiko Pratt M.D.RADIOLOGY - XR CHEST 1 V 08/06 0359 Report Impression - Status: SIGNED Entered: 08/07/2023 0448 IMPRESSION: No active pulmonary findings.Impression By: Abhi Barrios M.D.MAGNETIC RESONANCE IMAGING - MRI BRAIN W/O CONT 08/06 1132 Report Impression - Status: SIGNED Entered: 08/07/2023 1144 IMPRESSION:Small focus of subacute ischemia in the left guo radiata.Chronic microvascular ischemic changes and diffuse cerebral volumeloss. LOCATION: A 1Impression By: Yumiko Pratt M.D.RADIOLOGY - XR ABDOMEN 1V (KUB) 08/06 1216 Report Impression - Status: SIGNED Entered: 08/07/2023 1241 IMPRESSION:Enteric tube tip overlies the stomach.Mild distention of the bowel loops throughout the abdomen.Impression By: Yumiko - Daria Pratt M.D. Results: labs reviewed, vital signs reviewed, vital signs stable, current med profile rev'd Diagnosis, Assessment PlanFree Text A P:Sepsis--Fever, tachycardia, leukocytosis--Source: BacteremiaBacteremia--Citrobacter--Source: BiliaryLiver abscess--MRCP showed 4.6 x 3.6 x 3.0 thick walled cystic lesion/fluid collection liver abutting GB fossa--S/P IR drain 08/05, cx pendingAcute cholecystitis--S/P IR placed cholecystotomy tube ., cx pendingAcute stroke--MRI (+) subacute Left guo radiata--CTA neck (+) high grade aeuesycaGGBQP2HWPLEM On Rocephin/Flagyl, abx started 08/02 (Day 4)Modify based on cx resultsPlan discussed with: collaborating , nurse at 1833 at 2255 RPT #:[id number] OF REPORTPRProgress [id number]:21:00G.[id number] for patient gtbsZVXADSZKOOHBRP0092-47-31B32:33:49 [facility] 2023-08-07 18:11:00 [id number] nVn71V+dK5oDuGzSpfS PI3AUeonffgE3IF316044-22-62D87:11:00 [facility] ([facility]urgical Oncology Progress NotREPORT#:[id number] REPORT STATUS: SignedREPORT INITIALIZATION DATE:08/07/23 TIME: 1810 PATIENT: MISSY CANALES UNIT #: [id number]#: [id number] [id number] AGE: 68 SEX: M ATTEND: Raphael Ly AUTHOR: Michael Lakhani MDREPT SERVICE DT/TIME: 08/07/23 1811* ALL edits or amendments must be made on the electronic/computer document * SubjectiveChief complaint:liver abscess w/ possible gallbladder fistulaHPI:S: s/p IR liver abscess drain placement and cholecystostomy tube yesterday, output appears to be hugh blood at bedside on rounds; abd soft, febrile intermittently, small bore feeding tube placed, AMS worse this AM and RUE flaccid, neurology consulted, MRI brain this AM, ID consulted, endocrine consulted, pt moved to ICU. PEGen: NADHEENT: normocephalic, atraumatic, anicteric sclera, SBFT in placechest; No resp distressCV: perfusing wellabd: S, NT, minimally distended, no HMS, no rebound or guarding, no previous scars noted; IR drains x2 w/ hugh blood in bagsext; WWPneuro: AMS Objective GeneralVS/I O:Last Documented: Result Date Time Temp 99.3 08/06 0800 O2 Delivery BiPAP 08/06 0800 Pulse Ox 100 08/06 0759 FiO2 40 08/06 0759 Pulse 126 08/06 0759 O2 Flow Rate 10 08/06 0400 B/P 146/73 08/05 2117 B/P Mean 97.4 08/05 2117 Resp 37 08/05 2117 Vital SignsDate Temp Pulse Resp B/P B/P Mean Pulse Ox IjD364/-08/06 99.3-103.1 126-146 16-40 132-146/73- 94.0-101.8 95-100 40 85 24 hour I O ending at 0700: 08/06 0700 08/05 1900 Intake Total 2470.00 Output Total 650 Balance 1820.00 Intake, IV 2470.00 Output, 300 Drainage Output, Urine 350 Patient 80.7 kg Weight Weight Bed scale Measurement Method PATIENT WEIGHT: Weight (lb): 177Weight (oz): 14.61Weight (kg): 80.700 Medications:Active Meds + DC'd Last 24 HrsInsulin Human Lispro (HUMALOG) 0 Q6HR SUBQ (DC) Insulin Human Lispro (HUMALOG) 0 Q6HR SUBQ Metoprolol Tartrate (LOPRESSOR) 50 MG Q8HR PO Lactated Ringer's (LACTATED RINGERS) 1,000 ML BOLUS ONCE ONE IV (DC) Dextrose/Water (DEXTROSE 10% IN WATER) 125 ML ASDIR PRN IV (CKD) Dextrose/Water (DEXTROSE 10% IN WATER) 250 ML ASDIR PRN IV (CKD) Glucagon (GLUCAGON) 1 MG ASDIR PRN IM Insulin Human Lispro (HUMALOG) 0 Q4HR SUBQ (DC) Insulin Glargine (Semglee) 20 UNIT DAILY SUBQ Insulin Human Lispro (HUMALOG) 0 Q6HR SUBQ (DC) Mupirocin (BACTROBAN 2% 22 GM OINTMENT) 1 APPLIC BID NASAL Dextrose/Water (DEXTROSE 10% IN WATER) 125 ML ASDIR PRN IV (DC) Dextrose/Water (DEXTROSE 10% IN WATER) 250 ML ASDIR PRN IV (DC) Glucagon (GLUCAGON) 1 MG ASDIR PRN IM (DC) Amiodarone HCl (NEXTERONE 150MG/D5W 100ML) 100 ML STAT STA IV (DC) Dextrose/Water (DEXTROSE 5% WATER) 1,000 ML .Q10H IV (DC) Miscellaneous Information (VANCOMYCIN PHARMACY TO DOSE) 1 EACH ASDIR IV (DC) Piperacillin Sod/Tazobactam Sod (ZOSYN 3.375GM) 3.375 GM Q8H IV (DC) Sodium Chloride (SODIUM CHLORIDE 0.9% 100 ML) 100 MLVancomycin HCl (VANCOMYCIN HCL) 1,145.46 MG Q12H IV (DC) Sodium Chloride (SODIUM CHLORIDE 0.9%) 250 MLPiperacillin Sod/Tazobactam Sod (ZOSYN 3.375GM) 3.375 GM STAT STA IV (DC) Sodium Chloride (SODIUM CHLORIDE 0.9% 100 ML) 100 MLVancomycin HCl (VANCOMYCIN HCL) 1,000 MG STAT STA IV (DC) Sodium Chloride (SODIUM CHLORIDE 0.9%) 250 MLSodium Chloride (SODIUM CHLORIDE 0.9%) 2,290.92 ML BOLUS STA IV (DC) Diltiazem HCl (CARDIZEM) 10 MG ONCE ONE IV (DC) Metronidazole/Sodium Chloride (metroNIDAZOLE 500MG/NS 100ML) 100 ML Q12H IV Sodium Chloride (SODIUM CHLORIDE 0.9%) 250 ML BOLUS PRN IV Ceftriaxone Sodium (ROCEPHIN) 2,000 MG Q24H IV Sodium Chloride (SODIUM CHLORIDE) 20 MLDextrose/Water (DEXTROSE 10% IN WATER) 125 ML ASDIR PRN IV (DC) Dextrose/Water (DEXTROSE 10% IN WATER) 250 ML ASDIR PRN IV (DC) Glucagon (GLUCAGON) 1 MG ASDIR PRN IM (DC) Atorvastatin Calcium (LIPITOR) 40 MG BEDTIME PO Latanoprost (XALATAN 2.5 ML OPHTH SOLN) 1 DROP BEDTIME EACH EYE Allopurinol (ZYLOPRIM) 300 MG DAILY PO Aspirin (ASPIRIN) 81 MG DAILY PO Clopidogrel Bisulfate (Plavix) 75 MG DAILY PO Finasteride (PROSCAR) 5 MG DAILY PO Losartan Potassium (COZAAR) 25 MG DAILY PO (DC) Tamsulosin HCl (Flomax 0.4 mg) 0.8 MG DAILY PO Timolol Maleate (TIMOPTIC 0.5% 5 ML OPHTH SOLN) 1 DROP BID EACH EYE Glimepiride (AmaryL) 2 MG C BK PO (DC) Brimonidine Tartrate (Alphagan-P 0.2% 5 ML OPHTH SOLN) 1 DROP Q8HR EACH EYE Metoprolol Tartrate (LOPRESSOR) 50 MG BID PO (DC) Insulin Human Lispro (HUMALOG) 0 AC HS SUBQ (DC) Hydralazine HCl (APRESOLINE) 10 MG Q6H PRN PRN IV Ondansetron HCl (ZOFRAN) 4 MG Q4H PRN PRN IV Dietitian nutrition assessmentThe data set between the solid lines has been imported from the dietitian's assessment. BMI Calculated: 27.9Nutrition related diagnosis: OverweightNutrition diagnosis details: BMI 25-29.9Nutrition problem: Inadequate oral intakeNutrition etiology: PT LETHARGIC /SWALLOWING Nutrition signs and symptoms: ENTERAL NUTRITION TO MEET , ENERGY NEEDS Nutrition prescription: RECOMMEND: VITAL AF@ 68 MLS WILL PROVIDE: 2016/126 GMS/1362 MLS FW/DAILY Dietitian name: Rohan Sarah, DIETAssessment completed: 08/07/23 ResultsFindings/Data:Laboratory Tests 08/07/23 1216:[Embedded Image Not Available] 08/07/23 0456:[Embedded Image Not Available] 08/07/23 0244:[Embedded Image Not Available]Laboratory Tests 08/06 08/05 0823 2130 Blood Gas Puncture Site L Radial L Radial O2 Saturation (90 - 100 %) 99.5 95.9 ABG pH (7.35 - 7.45) 7.331 L 7.463 H ABG pCO2 (35.0 - 45 mmHg) 28.9 *L 25.9 *L ABG pO2 (80 - 100.0 mmHg) 173.3 H 79.5 L ABG PO2/FiO2 Ratio (mm/Hg) 433.20 ABG HCO3 (22.0 - 26.0 MMOL/L) 15.3 *L 18.4 L ABG Total CO2 16.2 19.1 ABG Base Excess (-4.0 - 4.0 MMOL/L) -10.6 L -5.1 L ABG Hematocrit (37.5 - 50.7 %) 35 L 42 ABG Hemoglobin (12.5 - 16.9 G/DL) 11.9 L 14.2 Tasia Test Positive Positive Sodium (134 - 147 mmol/L) 154 H 158 *H Potassium (3.4 - 5.0 mmol/L) 4.3 3.5 Chloride (100 - 108 mmol/L) 130 H 128 H Ionized Calcium (1.12 - 1.32 MMOL/L) 1.25 1.26 Lactic Acid (0.9 - 1.7 mmol/l) 1.2 1.5 Temperature (F) 101.1 O2 Delivery Device BiPAP RA Vent Mode BiLevel Vent Rate (/MIN) 26 FiO2 (%) 40.0 PEEP (cmH2O) 5 Pressure Support (cmH2O) 10 Laboratory Tests 08/06 08/06 08/06 08/06 08/06 1216 1216 0932 0823 0456 Chemistry Sodium (134 - 147 mEq/L) 152 H Potassium (3.4 - 5.0 mEq/L) 4.8 Chloride (100 - 108 mEq/L) 124 H Carbon Dioxide (21 - 33 mEq/l) 17 L Anion Gap (0 - 20) 16 BUN (7 - 25 mg/dL) 26 H Creatinine (0.6 - 1.3 mg/dL) 1.5 H POC Creatinine (0.8 - 1.3 mg/dL) 1.2 Glomerular Filtr Rate (70 - 80) 49.8 L Glucose (77 - 141 mg/dL) 380 H POC Glucose (70 - 110 MG/DL) 337 H POC Glucose (mg/dL) (70 - 110 MG/DL) 434 H Hemoglobin A1c (4.8 - 6.0 %A1C) 8.2 H Lactic Acid (0.4 - 1.9 mmol/L) 3.2 H Calcium (8.0 - 10.5 mg/dL) 8.3 Magnesium (1.6 - 2.6 mg/dL) 2.17 08/06 08/06 08/06 08/06 08/06 0456 0456 0244 0244 0244Chemistry Sodium (134 - 147 mEq/L) 154 H Potassium (3.4 - 5.0 mEq/L) 3.9 Chloride (100 - 108 mEq/L) 122 H Carbon Dioxide (21 - 33 mEq/l) 16 L Anion Gap (0 - 20) 20 BUN (7 - 25 mg/dL) 20 Creatinine (0.6 - 1.3 mg/dL) 1.1 Glomerular Filtr Rate (70 - 80) 72.2 Glucose (77 - 141 mg/dL) 294 H Lactic Acid (0.4 - 1.9 mmol/L) 2.1 H Calcium (8.0 - 10.5 mg/dL) 8.4 Total Bilirubin (0.0 - 1.0 mg/dL) 2.50 H AST (8 - 34 IUnit/L) 175 H ALT (10 - 49 IUnit/L) 125 H Total Alk Phosphatase (20 - 125 171 HIUnit/L) Total Protein (6.4 - 8.2 g/dL) 6.7 Albumin (3.4 - 5.0 g/dL) 2.40 L Triglycerides (40 - 150 mg/dL) 144 Cholesterol (<200 mg/dL) 125 LDL Cholesterol Measurd (0 - 100 92.0mg/dL) HDL Cholesterol (40 - 60 MG/DL) 8.3 L Cholesterol/HDL Ratio (3.43 - 4.97 15.06 HRATIO) Vitamin B12 (193 - 986 pg/mL) 1126 H 1165 H Folate (3.1 - 17.5 ng/mL) 11.8 TSH (0.42 - 5.47 IU/mL) 0.07 L Free T4 (0.77 - 1.61 ng/dL) 1.0 08/06 08/06 08/06 08/06 08/05 0244 0244 0151 0013 2153Chemistry Sodium (134 - 147 mEq/L) 154 H Potassium (3.4 - 5.0 mEq/L) 4.2 Chloride (100 - 108 mEq/L) 123 H Carbon Dioxide (21 - 33 mEq/l) 21 Anion Gap (0 - 20) 14 BUN (7 - 25 mg/dL) 23 Creatinine (0.6 - 1.3 mg/dL) 1.2 Glomerular Filtr Rate (70 - 80) 65.1 L Glucose (77 - 141 mg/dL) 280 H POC Glucose (70 - 110 MG/DL) 216 H 230 H Calcium (8.0 - 10.5 mg/dL) 8.4 Phosphorus (2.5 - 4.9 MG/DL) 3.6 Magnesium (1.6 - 2.6 mg/dL) 2.09 Total Bilirubin (0.0 - 1.0 mg/dL) 2.60 H AST (8 - 34 IUnit/L) 185 H ALT (10 - 49 IUnit/L) 126 H Total Alk Phosphatase (20 - 125 IUnit/L) 167 H Ammonia (11 - 35 umol/L) < 10 L Troponin I High Sens (0 - 54 ng/L) 489 *H 454 *H Total Protein (6.4 - 8.2 g/dL) 6.5 Albumin (3.4 - 5.0 g/dL) 2.10 L Lipase (13 - 57 U/L) 81 H 08/05 08/05 2130 1904 Chemistry POC Creatinine (0.8 - 1.3 mg/dL) 1.0 POC Glucose (70 - 110 MG/DL) 258 H POC Glucose (mg/dL) (70 - 110 MG/DL) 295 H Laboratory Tests 08/06 08/06 0243 0243 Coagulation INR (0.8 - 1.2) 1.2 PTT (Courtney) (25.0 - 39.5 Seconds) 16.6 L PT Patient/Control Mix (9.3 - 12.9 SECONDS) 12.8 Fibrinogen (160 - 450 MG/DL) 648 H Laboratory Tests 08/06 08/06 0456 0244 Hematology WBC (4.5 - 11.0 x10 3/uL) 17.7 H 17.0 H RBC (4.00 - 5.60 x10 6/uL) 3.75 L 4.04 Hgb (12.5 - 16.9 g/dL) 11.4 L 12.2 L Hct (37.5 - 50.7 %) 34.6 L 37.0 L MCV (81.0 - 99.0 fL) 92.3 91.6 MCH (27.0 - 33.0 pg) 30.4 30.2 MCHC (33.0 - 37.0 g/dL) 32.9 L 33.0 RDW (11.5 - 14.5 %) 14.6 H 14.5 Plt Count (150 - 400 x10 3/uL) 216 179 MPV (7.0 - 9.0 fL) 11.3 H 11.1 H Neut % (Auto) (56.0 - 77.0 %) 81.8 H 83.2 H Lymph % (Auto) (14.0 - 32.0 %) 9.5 L 8.0 L Evans % (Auto) (4.8 - 9.0 %) 7.3 7.8 Eos % (Auto) (0.3 - 3.7 %) 0.0 L 0.1 L Baso % (Auto) (0.0 - 2.0 %) 0.2 0.1 Neut # (Auto) (2.0 - 7.6 x10 3/uL) 14.50 H 14.17 H Lymph # (Auto) (1.0 - 3.8 x10 3/uL) 1.68 1.36 Evans # (Auto) (0.1 - 0.8 x10 3/uL) 1.29 H 1.33 H Eos # (Auto) (0.0 - 0.2 x10 3/uL) 0.00 0.01 Baso # (Auto) (0.0 - 0.2 x10 3/uL) 0.03 0.02 Abs Immat Gran (auto) (0.00 - 0.03 x10 3/uL) 0.22 H 0.14 H Immature Gran % (0.0 - 2.0 %) 1.2 0.8 Nucleated RBC % (0 - 0 %) 0.0 0.0 Nucleated RBCs # (Man) (0.0 - 0.1 x10 3/uL) 0.00 0.00 Laboratory Tests 08/06 1216 Toxicology Acetone, Quant (Neg - <20 mg/dL) NEGATIVE - <20 mg/dL Laboratory Tests 08/06 0456 Urines Urine Color (YEL/STRAW) SANDRA H Urine Appearance (CLEAR) CLOUDY H Urine pH (5.0 - 7.0) 5.0 Ur Specific [place] (1.005 - 1.030) 1.024 Urine Protein (NEGATIVE) 2+ H Urine Glucose (UA) (NEGATIVE) 3+ H Urine Ketones (NEGATIVE) NEGATIVE Urine Blood (NEGATIVE) 3+ H Urine Nitrite (NEGATIVE) NEGATIVE Urine Bilirubin (NEGATIVE) NEGATIVE Urine Urobilinogen (0.2 - 1.0 mg/dL) 0.2 Ur Leukocyte Esterase (NEGATIVE) 1+ H Urine RBC (0 - 3 RBC/HPF) >50 H Urine WBC (0 - 3 WBC/HPF) >50 H Ur Squamous Epith Cells (NONE SEEN /HPF) 0-5 Urine Bacteria (NONE SEEN /HPF) 2+ H Urine Mucus (NONE SEEN /LPF) TRACE Radiology data:Recent Impressions:CAT SCAN - CT HEAD/BRAIN W/O CONT 08/05 2326 Report Impression - Status: SIGNED Entered: 08/06/20232326 IMPRESSION:No acute intracranial abnormality. No intracranial hemorrhage.Chronic microvascular ischemic changes and mild cerebral volume loss. LOCATION: B2 Impression By: [email or web address] - Daria Pratt M.D.RADIOLOGY - XR CHEST 1 V 08/06 8931 Report Impression - Status: SIGNED Entered: 08/07/2023 0448 IMPRESSION: No active pulmonary findings.Impression By: [email or web address] - Poncho Barrios M.D.MAGNETIC RESONANCE IMAGING - MRI BRAIN W/O CONT 08/06 1132 Report Impression - Status: SIGNED Entered: 08/07/2023 1144 IMPRESSION:Small focus of subacute ischemia in the left guo radiata.Chronic microvascular ischemic changes and diffuse cerebral volumeloss. LOCATION: A 1Impression By: Yumiko Pratt M.D.RADIOLOGY - XR ABDOMEN 1V (KUB) 08/06 1216 Report Impression - Status: SIGNED Entered: 08/07/2023 1241 IMPRESSION:Enteric tube tip overlies the stomach.Mild distention of the bowel loops throughout the abdomen.Impression By: Yumiko Pratt M.D. 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 now w/ tachycardia, fevers, and bacteremia, w/ worsening AMS and supsected ischemic stroke-s/p IR drainage of liver abscess and gallbladder, some blood in drain bags today, pt on DAPT, cont to monitor, hgb 11.4 (12.2)-cont IV abx, ID on board, appreciate recs-endocrine consulted for hyperglycemia, which continues to be elevated, appreciate input-neurology consulted for AMS, stroke workup, r/o other causes, appreciate input-cardiology consulted, appreciate input-given AMS, SBFT placed, recommend ENVIRONMENTAL PROTECTION ECONOMIST eval when more lucid for swallow eval andadvance diet as tolerated when acute issues have resolved-pt will need interval cholecystectomy in the future, currently controlled with cholecystostomy tube and IR drain for liver abscessdispo: cont icu care at 1819 RPT #:[id number] OF REPORTPRProgress gfyq5711-93-35H18:11:00G.[id number] for patient qthyQRUKYYVBNDILWR2670-66-49O07:20:17 [facility] 2023-08-07 13:36:00 [id number] +v5xyuldCx6IIF+JaWo qXRkPBjqXoIFpyJmr0535-57-76K35:36:00 [facility] ([facility])Critical Care Progress NoteREPORT#:[id number] REPORT STATUS: SignedREPORT INITIALIZATION DATE:08/07/23 TIME: 1335 PATIENT: MISSY CANALES UNIT #: [id number]#: [id number] ROOM/BED: Y039-0LAY: 53 AGE: 68 SEX: M ATTEND: Raphael Ly MDA AUTHOR: Jake Contreras PAREPT SERVICE DT/TIME: 08/07/231335* ALL edits or amendments must be made on the electronic/computer document * SubjectiveChief complaint:Altered mental statusHPI:Patient is a 68 year old man with a past medical history of hypertension, hyperlipidemia, diabetes, and coronary artery disease who was hospitalized for cholecystitis became altered acutely, leading to a rapid response called this evening. Reviewing patient's chart, it appears that he recently underwent percutaneous drain placement for his cholecystitis. Also reviewing the chart, it appears that patient's indicated that he has been having a decline over the past 5 days, which prompted his evaluation in the hospital. Per chart review, patient appears to have already been evaluated for his altered mental status by neurology. A CT angio of the head and neck was obtained with evidenceshowing of severe stenosis of the M1. Neurology's recommendation was for medical management. Review of the CT angio of the head and neck that was performed, at that time did not demonstrate large vessel obstruction. A repeat CT of the head without contrast performed to evaluate for possible bleeding given the most recent mental status change. No family was present at bedside initially. Patient admitted to ICU for further monitoring and evaluation. Critical care medicine was consulted for further assistance in the patient's verbal altered mentation. Review of SystemsUnable to obtain due to:AMS Objective GeneralVS/I OLast Documented: Result Date Time Temp 37.4 08/06 0800 O2 Delivery BiPAP 08/06 0800 Pulse Ox 100 08/06 0759 FiO2 40 08/06 0759 Pulse 126 08/06 0759 O2 Flow Rate 10 08/06 0400 B/P 146/73 08/05 2117 B/P Mean 97.4 08/05 2117 Resp 37 08/05 2117 24 hour I O ending at 0700: 08/06 0700 08/05 1900 Intake Total 2470.00 Output Total 650 Balance 1820.00 Intake, IV 2470.00 Output, 300 Drainage Output, Urine 350 Patient 80.7 kg Weight Weight Bed scale Measurement Method PATIENT WEIGHT: Weight (lb): 177Weight (oz): 14.61Weight (kg): 80.700 Physical ExamGeneral appearance: altered mental status, alert, awakeHead/eyes: atraumatic, clear cornea, normal conjunctiva/sclera, PERRLENT: dry mucosal membraneNeck: normal thyroid, no masses or swellingCardiovascular: tachycardia, no rubRespiratory: rhonchi, symmetric expansion, no distressAbdomen: (Percutanous drain in place), soft, non-tenderExtremities: abnormal capillary refill, no clubbing, no cyanosis, no edemaMusculoskeletal normal inspectionNeuro/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: altered mental status, alertSkin: dry, intact, normal color, normal temperature, no rashPsychiatry: unable to evaluate Diagnosis, Assessment PlanFree text A P:Patient is a 68 year old man with a past medical history of hypertension, hyperlipidemia, diabetes, and coronary artery disease who was hospitalized for cholecystitis became altered acutely, leading to a rapid response called this evening. Patient transferred to the iCU and critical care medicine was conuslted. Level of Care: ICU Code Status: Full Code INPUT/OUTPUT LINES/TUBES/DRAINS ASSESSMENT PLAN 08/06 BIPAP support, 10/ 40%, 7.33 29 173 15, wean off as tolerated, grant tubesin place, lactic acid trending up, ceftriaxone and flagyl, CT brain negative, MRI shows subacute ischemia, neurology on board. Hypergycemia PULMONARY: BIPAP1. Atelectasis prevention - Incentive Spirometry q1h as tolerated - OOB and ambulation as tolerated CARDIOVASCULAR / FLUIDS:1. HTN: BP is adequate - Telemetry with blood pressure monitoring -Resume home medications 2. Hyperlipidemia -Resume home medications 3. Coronary Artery Disease -Hx coronary stent placement -Followed by Cardiology GI / PELVIS / NUTRITION 1. Cholecystits-s/p cholecystostomy tube placement - Ceftriaxone/ Flagyl per ID recommendations-GI consulted and following patient 2. Mild protein-calorie malnutrition: On admission - Diet recommendations per registered dietician3. GIB prophylaxis: - Protonix RENAL / ELECTROLYTES / ACID-BASE / :1. Hypernatremia -Most likley secondary to volume depletion - IVF replacemet - Avoid nephrotoxic agents and modify medications renally excreted - Repeat serial BMP -Urine electrlytes/Osmolarity -Monitor UOP and Strict I/O's and monitor electrolytes and replace per protocol INFECTIOUS DISEASE:1. Citrobacter koserii bacteremia -Antibiotics adjusted per Infectious Diseases -Resume current regimen -Supportive care HEMATOLOGY / ONCOLOGY / COAGULATION: 1. Monitor Hgb/Hct; if Hgb < 7 then transfuse according to clinical status and guidelines2. Lovenox for DVT prophylaxis ENDOCRINE1. Diabetes Mellitus -Poorly controlled -Accu checks per protocol if needed -Maintain blood sugar < 180 mg/dl -ISS high scale -Lantus q daily MUSCULOSKELETAL / DERMATOLOGICAL:1. Monitor for skin breakdown - OOB to chair - PT/OT NEUROLOGY / PSYCHIATRY:1. Hx of ischemic cerebral infarct -Statins/ASA/ -PT/OT2. Bilatral MCA stenosis -Management per Neurology-Not candidate for TNK SOCIAL:1. Family Communication - arrived late, but well discuss true acorringly Critical Care Time: 40 minutes This time excludes separately billable procedures or tests Due to a high probability of clinically significant, life threatening deterioration, the patient required my highest level of preparedness to intervene emergently and I personally spent this critical care time directly andpersonally managing the patient. This critical care time included obtaining a history; examining the patient; pulse oximetry; ordering and review of studies; arranging urgent treatment with development of a management plan; evaluation of patient's response to treatment;frequent reassessment; and, discussions with other providers.This critical care time was performed to assess and manage the high probability of imminent, life-threatening deterioration that could result in multi-organ failure. It was exclusive of separately billable procedures and treating other patients Quality: Gen Med Crit Care Current MedicationsCurrent medication review:I attest that the foregoing medication list in the medical record is true, accurate, and complete to the best of my knowledge. Advanced Care Plan 65 or OlderDiscussed with: patient, surrogate decis. maker at 1343 at 0628 RPT #:[id number] OF REPORTPRProgress [id number]:36:00G.[id number] for patient rgzzPVBOKBKBNNXSGT6966-72-77U64:45:37 [facility] 2023-08-07 12:43:00 [id number] 4oJjZVKAb2Qu1PnHu53 FaQrg3gCm/xQNX2SC0430-48-48W04:43:00 [facility] ([facility])Endocrinology ConsultationREPORT#:[id number] REPORT STATUS: SignedREPORT INITIALIZATION DATE:08/07/23 TIME: 1243 PATIENT: MISSY CANALES UNIT #: [id number]#: [id number] [address] AGE: 68 SEX: M ATTEND: Raphael Ly MDADM AUTHOR: Agus Duckworth APRNNPREPT SERVICE DT/TIME: 08/07/23 1156* ALL edits or amendments must be made on the electronic/computer document * History of Present IllnessRequesting Clinician: for consult:Hyperglycemia Chief complaint:Acute grant elevated trop HPI:Patient is a 68 year old man with a past medical history of hypertension, hyperlipidemia, diabetes, and coronary artery disease who was hospitalized for cholecystitis became altered acutely, leading to a rapid response called this evening. Reviewing patient's chart, it appears that he recently underwent percutaneous drain placement for his cholecystitis. Also reviewing the chart, it appears that patient's indicated that he has been having a decline over the past 5 days, which prompted his evaluation in the hospital. Per chart review, patient appears to have already been evaluated for his altered mental status by neurology. A CT angio of the head and neck was obtained with evidenceshowing of severe stenosis of the M1. Neurology's recommendation was for medical management. Review of the CT angio of the head and neck that was performed, at that time did not demonstrate large vessel obstruction. A repeat CT of the head without contrast performed to evaluate for possible bleeding given the most recent mental status change. No family was present at bedside initially. Patient admitted to ICU for further monitoring and evaluation. Critical care medicine was consulted for further assistance in the patient's verbal altered mentation. Consulted for hyperglycemia. Now in ICU post rapid response for altered mental status. Hospitalized for cholecystitis, percutaneous drain placement. CT head, suspected ischemic stroke. History of DM II, blood glucose elevated 434 this morning. HgbA1c 8.2 RN at bedside, NG tube in progress. No thyroid history, TSH 0.07 and FT4 1 History - Adult longitudinalPast medical history:Reports: Diabetes mellitus, Hypertension. Additional medical history:HTN, HLD, DM type II and CADAdditional surgical history:recent cardia cathAlcohol use: Denies EtOH useDrug use: Denies recreational drugsSmoking status for patients 13 years old or older: Former SmokerAllergies:Coded Allergies:No Known Allergies (08/03/23) Review of SystemsUnable to obtain due to:AMS ObjectiveVS/I O:Last Documented: Result Date Time Temp 99.3 08/06 0800 O2 Delivery BiPAP 08/06 0800 Pulse Ox 100 08/06 0759 FiO2 40 08/06 0759 Pulse 126 08/06 0759 O2 Flow Rate 10 08/06 0400 B/P 146/73 08/05 2117 B/P Mean 97.4 08/05 2117 Resp 37 08/05 2117 24 hour I O ending at 0700: 08/06 0700 08/05 1900 Intake Total 2470.00 Output Total 650 Balance 1820.00 Intake, IV 2470.00 Output, 300 Drainage Output, Urine 350 Patient 80.7 kg Weight Weight Bed scale Measurement Method PATIENT WEIGHT: Weight (lb): 177Weight (oz): 14.61Weight (kg): 80.700 General appearance: altered mental status, chronically ill appearing, frail, no respiratory distressHead/Eyes: atraumatic, normocephalicENT: normal ear left, normal ear right, normal noseNeck: suppleCardiovascular: tachycardiaRespiratory: on oxygenAbdomen: softGenitourinary: not indicatedExtremities: warmNeuro/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: alertSkin: warm ResultsFindings/Data:Laboratory Tests: 08/06 08/06 08/06 08/06 0932 0823 0456 0456 Blood Gas Puncture Site L Radial O2 Saturation (90 - 100 %) 99.5 ABG pH (7.35 - 7.45) 7.331 L ABG pCO2 (35.0 - 45 mmHg) 28.9 *L ABG pO2 (80 - 100.0 mmHg) 173.3 H ABG PO2/FiO2 Ratio (mm/Hg) 433.20 ABG HCO3 (22.0 - 26.0 MMOL/L) 15.3 *L ABG Total CO2 16.2 ABG Base Excess (-4.0 - 4.0 MMOL/L) -10.6 L ABG Hematocrit (37.5 - 50.7 %) 35 L ABG Hemoglobin (12.5 - 16.9 G/DL) 11.9 L Tasia Test Positive Sodium (134 - 147 mmol/L) 154 H Potassium (3.4 - 5.0 mmol/L) 4.3 Chloride (100 - 108 mmol/L) 130 H Ionized Calcium (1.12 - 1.32 MMOL/L) 1.25 Lactic Acid (0.9 - 1.7 mmol/l) 1.2 O2 Delivery Device BiPAP Vent Mode BiLevel Vent Rate (/MIN) 26 FiO2 (%) 40.0 PEEP (cmH2O) 5 Pressure Support (cmH2O) 10 Chemistry POC Creatinine (0.8 - 1.3 mg/dL) 1.2 POC Glucose (70 - 110 MG/DL) 337 H POC Glucose (mg/dL) (70 - 110 MG/DL) 434 H Hemoglobin A1c (4.8 - 6.0 %A1C) 8.2 H Vitamin B12 (193 - 986 pg/mL) 1126 H Folate (3.1 - 17.5 ng/mL) 11.8 08/06 08/06 08/06 08/06 0456 0244 0244 0244Chemistry Sodium (134 - 147 mEq/L) 154 H Potassium (3.4 - 5.0 mEq/L) 3.9 Chloride (100 - 108 mEq/L) 122 H Carbon Dioxide (21 - 33 mEq/l) 16 L Anion Gap (0 - 20) 20 BUN (7 - 25 mg/dL) 20 Creatinine (0.6 - 1.3 mg/dL) 1.1 Glomerular Filtr Rate (70 - 80) 72.2 Glucose (77 - 141 mg/dL) 294 H Lactic Acid (0.4 - 1.9 mmol/L) 2.1 H Calcium (8.0 - 10.5 mg/dL) 8.4 Total Bilirubin (0.0 - 1.0 mg/dL) 2.50 H AST (8 - 34 IUnit/L) 175 H ALT (10 - 49 IUnit/L) 125 H Total Alk Phosphatase (20 - 125 IUnit/L) 171 H Total Protein (6.4 - 8.2 g/dL) 6.7 Albumin (3.4 - 5.0 g/dL) 2.40 L Triglycerides (40 - 150 mg/dL) 144 Cholesterol (<200 mg/dL) 125 LDL Cholesterol Measurd (0 - 100 mg/dL) 92.0 HDL Cholesterol (40 - 60 MG/DL) 8.3 L Cholesterol/HDL Ratio (3.43 - 4.97 RATIO) 15.06 H Vitamin B12 (193 - 986 pg/mL) 1165 H TSH (0.42 - 5.47 IU/mL) 0.07 L Free T4 (0.77 - 1.61 ng/dL) 1.0Hematology WBC (4.5 - 11.0 x10 3/uL) 17.7 H RBC (4.00 - 5.60 x10 6/uL) 3.75 L Hgb (12.5 - 16.9 g/dL) 11.4 L Hct (37.5 - 50.7 %) 34.6 L MCV (81.0 - 99.0 fL) 92.3 MCH (27.0 - 33.0 pg) 30.4 MCHC (33.0 - 37.0 g/dL) 32.9 L RDW (11.5 - 14.5 %) 14.6 H Plt Count (150 - 400 x10 3/uL) 216 MPV (7.0 - 9.0 fL) 11.3 H Neut % (Auto) (56.0 - 77.0 %) 81.8 H Lymph % (Auto) (14.0 - 32.0 %) 9.5 L Evans % (Auto) (4.8 - 9.0 %) 7.3 Eos % (Auto) (0.3 - 3.7 %) 0.0 L Baso % (Auto) (0.0 - 2.0 %) 0.2 Neut # (Auto) (2.0 - 7.6 x10 3/uL) 14.50 H Lymph # (Auto) (1.0 - 3.8 x10 3/uL) 1.68 Evans # (Auto) (0.1 - 0.8 x10 3/uL) 1.29 H Eos # (Auto) (0.0 - 0.2 x10 3/uL) 0.00 Baso # (Auto) (0.0 - 0.2 x10 3/uL) 0.03 Abs Immat Gran (auto) (0.00 - 0.03 0.22 Hx10 3/uL) Immature Gran % (0.0 - 2.0 %) 1.2 Nucleated RBC % (0 - 0 %) 0.0 Nucleated RBCs # (Man) (0.0 - 0.1 0.00x10 3/uL) 08/06 08/06 08/06 08/06 0244 0244 0243 0243Chemistry Sodium (134 - 147 mEq/L) 154 H Potassium (3.4 - 5.0 mEq/L) 4.2 Chloride (100 - 108 mEq/L) 123 H Carbon Dioxide (21 - 33 mEq/l) 21 Anion Gap (0 - 20) 14 BUN (7 - 25 mg/dL) 23 Creatinine (0.6 - 1.3 mg/dL) 1.2 Glomerular Filtr Rate (70 - 80) 65.1 L Glucose (77 - 141 mg/dL) 280 H Calcium (8.0 - 10.5 mg/dL) 8.4 Phosphorus (2.5 - 4.9 MG/DL) 3.6 Magnesium (1.6 - 2.6 mg/dL) 2.09 Total Bilirubin (0.0 - 1.0 mg/dL) 2.60 H AST (8 - 34 IUnit/L) 185 H ALT (10 - 49 IUnit/L) 126 H Total Alk Phosphatase (20 - 125 IUnit/L) 167 H Ammonia (11 - 35 umol/L) < 10 L Troponin I High Sens (0 - 54 ng/L) 489 *H Total Protein (6.4 - 8.2 g/dL) 6.5 Albumin (3.4 - 5.0 g/dL) 2.10 L Lipase (13 - 57 U/L) 81 HCoagulation INR (0.8 - 1.2) 1.2 PTT (Courtney) (25.0 - 39.5 Seconds) 16.6 L PT Patient/Control Mix (9.3 - 12.9 12.8SECONDS) Fibrinogen (160 - 450 MG/DL) 648 HHematology WBC (4.5 - 11.0 x10 3/uL) 17.0 H RBC (4.00 - 5.60 x10 6/uL) 4.04 Hgb (12.5 - 16.9 g/dL) 12.2 L Hct (37.5 - 50.7 %) 37.0 L MCV (81.0 - 99.0 fL) 91.6 MCH (27.0 - 33.0 pg) 30.2 MCHC (33.0 - 37.0 g/dL) 33.0 RDW (11.5 - 14.5 %) 14.5 Plt Count (150 - 400 x10 3/uL) 179 MPV (7.0 - 9.0 fL) 11.1 H Neut % (Auto) (56.0 - 77.0 %) 83.2 H Lymph % (Auto) (14.0 - 32.0 %) 8.0 L Evans % (Auto) (4.8 - 9.0 %) 7.8 Eos % (Auto) (0.3 - 3.7 %) 0.1 L Baso % (Auto) (0.0 - 2.0 %) 0.1 Neut # (Auto) (2.0 - 7.6 x10 3/uL) 14.17 H Lymph # (Auto) (1.0 - 3.8 x10 3/uL) 1.36 Evans # (Auto) (0.1 - 0.8 x10 3/uL) 1.33 H Eos # (Auto) (0.0 - 0.2 x10 3/uL) 0.01 Baso # (Auto) (0.0 - 0.2 x10 3/uL) 0.02 Abs Immat Gran (auto) (0.00 - 0.03 0.14 Hx10 3/uL) Immature Gran % (0.0 - 2.0 %) 0.8 Nucleated RBC % (0 - 0 %) 0.0 Nucleated RBCs # (Man) (0.0 - 0.1 0.00x10 3/uL) 08/06 08/06 08/05 08/05 08/05 0151 0013 2153 2130 1904Blood Gas Puncture Site L Radial O2 Saturation (90 - 100 %) 95.9 ABG pH (7.35 - 7.45) 7.463 H ABG pCO2 (35.0 - 45 mmHg) 25.9 *L ABG pO2 (80 - 100.0 mmHg) 79.5 L ABG HCO3 (22.0 - 26.0 MMOL/L) 18.4 L ABG Total CO2 19.1 ABG Base Excess (-4.0 - 4.0 MMOL/L) -5.1 L ABG Hematocrit (37.5 - 50.7 %) 42 ABG Hemoglobin (12.5 - 16.9 G/DL) 14.2 Tasia Test Positive Sodium (134 - 147 mmol/L) 158 *H Potassium (3.4 - 5.0 mmol/L) 3.5 Chloride (100 - 108 mmol/L) 128 H Ionized Calcium (1.12 - 1.32 MMOL/L) 1.26 Lactic Acid (0.9 - 1.7 mmol/l) 1.5 Temperature (F) 101.1 O2 Delivery Device RAChemistry POC Creatinine (0.8 - 1.3 mg/dL) 1.0 POC Glucose (70 - 110 MG/DL) 216 H 230 H 258 H POC Glucose (mg/dL) (70 - 110 MG/DL) 295 H Troponin I High Sens (0 - 54 ng/L) 454 *H 08/05 1552 Chemistry POC Glucose (70 - 110 MG/DL) 249 H Microbiology: Date/Time Procedure - Status Source Growth 08/06 UNK Blood Culture - RECD BLOOD 08/06 UNK Blood Culture Gram Stain - RECD BLOOD 08/06 UNK Blood Culture - RECD BLOOD 08/06 UNK Blood Culture Gram Stain - RECD BLOOD 08/06 0455 MRSA DNA Surveillance Screen - RECD NASAL 08/06 2155 Blood Culture - RECD BLOOD 08/06 2155 Blood Culture Gram Stain - RECD BLOOD 08/05 2146 Blood Culture - CAN BLOOD Cancelled: DUPLICATE ORDER 08/05 2146 Blood Culture Gram Stain - CAN BLOOD Cancelled: DUPLICATE ORDER 08/05 142 Body Fluid Culture - RES ASPIRATE 08/05 1423 Anaerobic Culture - RES ASPIRATE 08/05 1423 Gram Stain - RES ASPIRATE 08/05 1423 Body Fluid Culture - RES ASPIRATE GRAM NEGATIVE OLENA GRAM NEGATIVE OLENA#2 08/05 1423 Anaerobic Culture - RES ASPIRATE 08/05 1423 Gram Stain - RES ASPIRATE Recent Impressions:SPECIAL PROCEDURES - SP CHLECYSTOSTMY PERC 08/05 1419 Report Impression - Status: SIGNED Entered: 08/06/2023 1626 IMPRESSION: 1. Successful ultrasound and fluoroscopically guided placement of 10French drainage catheter into the known hepatic/pericholecysticcomplex cystic lesion/fluid collection/abscess. Fluid sample was sentto the lab for culture, which is pending. 2. Successful ultrasound and fluoroscopically guided placement of 10French percutaneous cholecystostomy drainage catheter. Fluid samplewas sent to the lab for culture, which is pending. Both catheters should be flushed with 10 mL each of sterile normalsaline twice daily.Impression By: [email or web address] - Jose Guadalupe Rodriguez M.D.CAT SCAN - CTA HEAD 08/05 1642 Report Impression - Status: SIGNED Entered: 08/06/20232010 IMPRESSION: High-grade stenosis involving the right M1 segment likely secondary tothrombus.Atherosclerotic disease within both carotid siphons with mildflow-limiting stenosis.Vessel irregularity of the distal intracranial vasculature with areasof severe flow-limiting stenosis in both cerebral arteries. Findings were discussed with Dr. Haider at 8:07 PM via telephone. (All qualitative and quantitative assessments of carotid bifurcationand proximal internal carotid artery stenosis are made referencing thedistal internal carotid artery {NASCET criteria}.) LOCATION: B2 Impression By: [email or web address] - Daria Pratt M.D.CAT SCAN - CT HEAD/BRAIN W/O CONT 08/05 1642 Report Impression - Status: SIGNED Entered: 08/06/2023 1739 IMPRESSION: There are no acute findings seen is patient's brain on this unenhancedhead CT examination. Senescent changes which appear advanced for thepatient's stated age are noted.Impression By: [email or web address] - Javi Lawrence M.D.CAT SCAN - CT ANGIO NECK 08/06 1643 Report Impression - Status: SIGNED Entered: 08/06/20232010 IMPRESSION: High-grade stenosis involving the right M1 segment likely secondary tothrombus.Atherosclerotic disease within both carotid siphons with mildflow-limiting stenosis.Vessel irregularity of the distal intracranial vasculature with areasof severe flow-limiting stenosis in both cerebral arteries. Findings were discussed with Dr. Haider at 8:07 PM via telephone. (All qualitative and quantitative assessments of carotid bifurcationand proximal internal carotid artery stenosis are made referencing thedistal internal carotid artery {NASCET criteria}.) LOCATION: B2 Impression By: Yumiko Pratt M.D.CAT SCAN - CT HEAD/BRAIN W/O CONT 08/05 2326 Report Impression - Status: SIGNED Entered: 08/06/2023 232 IMPRESSION:No acute intracranial abnormality. No intracranial hemorrhage.Chronic microvascular ischemic changes and mild cerebral volume loss. LOCATION: B2 Impression By: Yumiko Pratt M.D.RADIOLOGY - XR CHEST 1 V 08/06 0359 Report Impression - Status: SIGNED Entered: 08/07/2023 0448 IMPRESSION: No active pulmonary findings.Impression By: Abhi Barrios M.D.MAGNETIC RESONANCE IMAGING - MRI BRAIN W/O CONT 08/06 1132 Report Impression - Status: SIGNED Entered: 08/07/2023 1144 IMPRESSION:Small focus of subacute ischemia in the left guo radiata.Chronic microvascular ischemic changes and diffuse cerebral volumeloss. LOCATION: A 1Impression By: Yumiko Pratt M.D.RADIOLOGY - XR ABDOMEN 1V (KUB) 08/06 1216 Report Impression - Status: SIGNED Entered: 08/07/2023 1241 IMPRESSION:Enteric tube tip overlies the stomach.Mild distention of the bowel loops throughout the abdomen.Impression By: Yumiko Pratt M.D. Diagnosis, Assessment PlanFree Text A P:1.DM XXVwjO8d 8.2start Lantus continue SSI monitor glucose NPO DC Plan: Lantus, Humalog, and Farxiga; follow at next available appointment. 2.Abnormal thyroid functions 08/06 TSH 0.07 FT4 1 recheck in a couple of days 3.Suspected ischemic strokeMRI brain without contrastEchocardiogramTelemetryneurology following 4.Coronary artery diseasePCI on July 03, 2023Echocardiogram preserved LVEFdual antiplateletscardiology following 5. Elevated LFTsGI following 6.MRCP with complex cystic fluid collectionpost drainage surgery following Thank you for the kind consult. at 1216 at 0809 RPT #:[id number] OF [id number]:43:00G.[id number] 42AVAvailable for patient [id number]:16:26 [facility] 2023-08-07 11:12:00 [id number]:12:00 [facility] ([facility])Cardiology Progress NoteREPORT#:[id number] REPORT STATUS: SignedREPORT INITIALIZATION DATE:08/07/23 TIME: 1111 PATIENT: MISSY CANALES UNIT #: [id number]#: [id number] [address] AGE: 68 SEX: M ATTEND: Raphael Ly MDADM AUTHOR: Esther BucknerCNPREPT SERVICE DT/TIME: 08/07/23 1112* ALL edits or amendments must be made on the electronic/computer document * See AddendumSubjectiveComments:Ill-looking, on NRM. Tachycardic on tele. Review of SystemsUnable to obtain due to:AMS Objective GeneralVS/I O:24 hour I O ending at 0700: 08/06 0700 08/05 1900 Intake Total 2470.00 Output Total 650 Balance 1820.00 Intake, IV 2470.00 Output, 300 Drainage Output, Urine 350 Patient 80.7 kg Weight Weight Bed scale Measurement MethodVital SignsDate Temp Pulse Resp B/P B/P Mean Pulse Ox LtE556/11-03/12 37.1-39.5 101-146 14-40 132-165/70-8 94.0-104.2 95-100 40 5 PATIENT WEIGHT: Weight (lb): 177Weight (oz): 14.61Weight (kg): 80.700 Medications:Active Meds + DC'd Last 24 HrsInsulin Human Lispro (HUMALOG) 0 Q6HR SUBQ Mupirocin (BACTROBAN 2% 22 GM OINTMENT) 1 APPLIC BID NASAL Dextrose/Water (DEXTROSE 10% IN WATER) 125 ML ASDIR PRN IV (CKD) Dextrose/Water (DEXTROSE 10% IN WATER) 250 ML ASDIR PRN IV (CKD) Glucagon (GLUCAGON) 1 MG ASDIR PRN IM Amiodarone HCl (NEXTERONE 150MG/D5W 100ML) 100 ML STAT STA IV (DC) Dextrose/Water (DEXTROSE 5% WATER) 1,000 ML .Q10H IV (DC) Miscellaneous Information (VANCOMYCIN PHARMACY TO DOSE) 1 EACH ASDIR IV (DC) Piperacillin Sod/Tazobactam Sod (ZOSYN 3.375GM) 3.375 GM Q8H IV (DC) Sodium Chloride (SODIUM CHLORIDE 0.9% 100 ML) 100 MLVancomycin HCl (VANCOMYCIN HCL) 1,145.46 MG Q12H IV (DC) Sodium Chloride (SODIUM CHLORIDE 0.9%) 250 MLPiperacillin Sod/Tazobactam Sod (ZOSYN 3.375GM) 3.375 GM STAT STA IV (DC) Sodium Chloride (SODIUM CHLORIDE 0.9% 100 ML) 100 MLVancomycin HCl (VANCOMYCIN HCL) 1,000 MG STAT STA IV (DC) Sodium Chloride (SODIUM CHLORIDE 0.9%) 250 MLSodium Chloride (SODIUM CHLORIDE 0.9%) 2,290.92 ML BOLUS STA IV (DC) Diltiazem HCl (CARDIZEM) 10 MG ONCE ONE IV (DC) Metronidazole/Sodium Chloride (metroNIDAZOLE 500MG/NS 100ML) 100 ML Q12H IV Sodium Chloride (SODIUM CHLORIDE 0.9%) 250 ML BOLUS PRN IV Iopamidol (ISOVUE-300 100ML) 100 ML .STK-MED ONE IV (DC) Ceftriaxone Sodium (ROCEPHIN) 2,000 MG Q24H IV Sodium Chloride (SODIUM CHLORIDE) 20 MLLidocaine HCl (XYLOCAINE) 0 .STK-MED ONE LOCAL (DC) Fentanyl Citrate (SUBLIMAZE) 0 .STK-MED ONE IV (DC) Dextrose/Water (DEXTROSE 10% IN WATER) 125 ML ASDIR PRN IV (DC) Dextrose/Water (DEXTROSE 10% IN WATER) 250 ML ASDIR PRN IV (DC) Glucagon (GLUCAGON) 1 MG ASDIR PRN IM (DC) Meropenem (MEROPENEM) 500 MG Q6H IV (DC) Sterile Water (WATER FOR INJECTION) 10 MLAtorvastatin Calcium (LIPITOR) 40 MG BEDTIME PO Latanoprost (XALATAN 2.5 ML OPHTH SOLN) 1 DROP BEDTIME EACH EYE Allopurinol (ZYLOPRIM) 300 MG DAILY PO Aspirin (ASPIRIN) 81 MG DAILY PO Clopidogrel Bisulfate (Plavix) 75 MG DAILY PO Finasteride (PROSCAR) 5 MG DAILY PO Losartan Potassium (COZAAR) 25 MG DAILY PO Tamsulosin HCl (Flomax 0.4 mg) 0.8 MG DAILY PO Timolol Maleate (TIMOPTIC 0.5% 5 ML OPHTH SOLN) 1 DROP BID EACH EYE Glimepiride (AmaryL) 2 MG C BK PO (DC) Brimonidine Tartrate (Alphagan-P 0.2% 5 ML OPHTH SOLN) 1 DROP Q8HR EACH EYE Metoprolol Tartrate (LOPRESSOR) 50 MG BID PO Insulin Human Lispro (HUMALOG) 0 AC HS SUBQ (DC) Hydralazine HCl (APRESOLINE) 10 MG Q6H PRN PRN IV Ondansetron HCl (ZOFRAN) 4 MG Q4H PRN PRN IV Physical ExamGeneral appearance: chronically ill appearingHead/Eyes: atraumatic, normocephalicENT: moist mucosal membranesNeck: full range of motion, no JVDCardiovascular: CV assessment: ectopy, irregular rhythm, tachycardiaRespiratory: decreased breath sounds, on oxygenAbdomen: soft, normal bowel soundsGenitourinary: urinary catheter, urineUpper extremity: UE assessment: normal capillary refill, normal temperatureLower extremity: LE assessment: normal capillary refill, normal temperatureMusculoskeletal: full range of motionNeuro/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: awakeSkin: dry, intact, normal colorPsychiatry: unable to evaluate ResultsFindings/Data:Laboratory Tests 08/06 08/05 0823 2130 Blood Gas Puncture Site L Radial L Radial O2 Saturation (90 - 100 %) 99.5 95.9 ABG pH (7.35 - 7.45) 7.331 L 7.463 H ABG pCO2 (35.0 - 45 mmHg) 28.9 *L 25.9 *L ABG pO2 (80 - 100.0 mmHg) 173.3 H 79.5 L ABG PO2/FiO2 Ratio (mm/Hg) 433.20 ABG HCO3 (22.0 - 26.0 MMOL/L) 15.3 *L 18.4 L ABG Total CO2 16.2 19.1 ABG Base Excess (-4.0 - 4.0 MMOL/L) -10.6 L -5.1 L ABG Hematocrit (37.5 - 50.7 %) 35 L 42 ABG Hemoglobin (12.5 - 16.9 G/DL) 11.9 L 14.2 Tasia Test Positive Positive Sodium (134 - 147 mmol/L) 154 H 158 *H Potassium (3.4 - 5.0 mmol/L) 4.3 3.5 Chloride (100 - 108 mmol/L) 130 H 128 H Ionized Calcium (1.12 - 1.32 MMOL/L) 1.25 1.26 Lactic Acid (0.9 - 1.7 mmol/l) 1.2 1.5 Temperature (F) 101.1 O2 Delivery Device BiPAP RA Vent Mode BiLevel Vent Rate (/MIN) 26 FiO2 (%) 40.0 PEEP (cmH2O) 5 Pressure Support (cmH2O) 10 Laboratory Tests 08/06 08/06 08/06 08/06 0932 0898 0456 0456 Chemistry POC Creatinine (0.8 - 1.3 mg/dL) 1.2 POC Glucose (70 - 110 MG/DL) 337 H POC Glucose (mg/dL) (70 - 110 MG/DL) 434 H Hemoglobin A1c (4.8 - 6.0 %A1C) 8.2 H Vitamin B12 (193 - 986 pg/mL) 1126 H Folate (3.1 - 17.5 ng/mL) 11.8 08/06 08/06 08/06 08/06 0456 0244 0244 0244Chemistry Sodium (134 - 147 mEq/L) 154 H Potassium (3.4 - 5.0 mEq/L) 3.9 Chloride (100 - 108 mEq/L) 122 H Carbon Dioxide (21 - 33 mEq/l) 16 L Anion Gap (0 - 20) 20 BUN (7 - 25 mg/dL) 20 Creatinine (0.6 - 1.3 mg/dL) 1.1 Glomerular Filtr Rate (70 - 80) 72.2 Glucose (77 - 141 mg/dL) 294 H Lactic Acid (0.4 - 1.9 mmol/L) 2.1 H Calcium (8.0 - 10.5 mg/dL) 8.4 Total Bilirubin (0.0 - 1.0 mg/dL) 2.50 H AST (8 - 34 IUnit/L) 175 H ALT (10 - 49 IUnit/L) 125 H Total Alk Phosphatase (20 - 125 IUnit/L) 171 H Total Protein (6.4 - 8.2 g/dL) 6.7 Albumin (3.4 - 5.0 g/dL) 2.40 L Triglycerides (40 - 150 mg/dL) 144 Cholesterol (<200 mg/dL) 125 LDL Cholesterol Measurd (0 - 100 mg/dL) 92.0 HDL Cholesterol (40 - 60 MG/DL) 8.3 L Cholesterol/HDL Ratio (3.43 - 4.97 RATIO) 15.06 H Vitamin B12 (193 - 986 pg/mL) 1165 H TSH (0.42 - 5.47 IU/mL) 0.07 L Free T4 (0.77 - 1.61 ng/dL) 1.0 08/06 08/06 08/06 08/06 08/05 0244 0244 0151 0013 2153Chemistry Sodium (134 - 147 mEq/L) 154 H Potassium (3.4 - 5.0 mEq/L) 4.2 Chloride (100 - 108 mEq/L) 123 H Carbon Dioxide (21 - 33 mEq/l) 21 Anion Gap (0 - 20) 14 BUN (7 - 25 mg/dL) 23 Creatinine (0.6 - 1.3 mg/dL) 1.2 Glomerular Filtr Rate (70 - 80) 65.1 L Glucose (77 - 141 mg/dL) 280 H POC Glucose (70 - 110 MG/DL) 216 H 230 H Calcium (8.0 - 10.5 mg/dL) 8.4 Phosphorus (2.5 - 4.9 MG/DL) 3.6 Magnesium (1.6 - 2.6 mg/dL) 2.09 Total Bilirubin (0.0 - 1.0 mg/dL) 2.60 H AST (8 - 34 IUnit/L) 185 H ALT (10 - 49 IUnit/L) 126 H Total Alk Phosphatase (20 - 125 167 HIUnit/L) Ammonia (11 - 35 umol/L) < 10 L Troponin I High Sens (0 - 54 ng/L) 489 *H 454 *H Total Protein (6.4 - 8.2 g/dL) 6.5 Albumin (3.4 - 5.0 g/dL) 2.10 L Lipase (13 - 57 U/L) 81 H 08/05 08/05 08/05 2130 1904 1552 Chemistry POC Creatinine (0.8 - 1.3 mg/dL) 1.0 POC Glucose (70 - 110 MG/DL) 258 H 249 H POC Glucose (mg/dL) (70 - 110 MG/DL) 295 H Laboratory Tests 08/06 08/06 08/05 0243 0243 1217 Coagulation INR (0.8 - 1.2) 1.2 1.2 PTT (Courtney) (25.0 - 39.5 Seconds) 16.6 L 31.7 PT Patient/Control Mix (9.3 - 12.9 SECONDS) 12.8 13.5 H Fibrinogen (160 - 450 MG/DL) 648 H Laboratory Tests 08/06 08/06 0456 0244 Hematology WBC (4.5 - 11.0 x10 3/uL) 17.7 H 17.0 H RBC (4.00 - 5.60 x10 6/uL) 3.75 L 4.04 Hgb (12.5 - 16.9 g/dL) 11.4 L 12.2 L Hct (37.5 - 50.7 %) 34.6 L 37.0 L MCV (81.0 - 99.0 fL) 92.3 91.6 MCH (27.0 - 33.0 pg) 30.4 30.2 MCHC (33.0 - 37.0 g/dL) 32.9 L 33.0 RDW (11.5 - 14.5 %) 14.6 H 14.5 Plt Count (150 - 400 x10 3/uL) 216 179 MPV (7.0 - 9.0 fL) 11.3 H 11.1 H Neut % (Auto) (56.0 - 77.0 %) 81.8 H 83.2 H Lymph % (Auto) (14.0 - 32.0 %) 9.5 L 8.0 L Evans % (Auto) (4.8 - 9.0 %) 7.3 7.8 Eos % (Auto) (0.3 - 3.7 %) 0.0 L 0.1 L Baso % (Auto) (0.0 - 2.0 %) 0.2 0.1 Neut # (Auto) (2.0 - 7.6 x10 3/uL) 14.50 H 14.17 H Lymph # (Auto) (1.0 - 3.8 x10 3/uL) 1.68 1.36 Evans # (Auto) (0.1 - 0.8 x10 3/uL) 1.29 H 1.33 H Eos # (Auto) (0.0 - 0.2 x10 3/uL) 0.00 0.01 Baso # (Auto) (0.0 - 0.2 x10 3/uL) 0.03 0.02 Abs Immat Gran (auto) (0.00 - 0.03 x10 3/uL) 0.22 H 0.14 H Immature Gran % (0.0 - 2.0 %) 1.2 0.8 Nucleated RBC % (0 - 0 %) 0.0 0.0 Nucleated RBCs # (Man) (0.0 - 0.1 x10 3/uL) 0.00 0.00 Laboratory Tests 08/06 0244 Chemistry Magnesium (1.6 - 2.6 mg/dL) 2.09 Radiology data:Recent Impressions:SPECIAL PROCEDURES - SP CHLECYSTOSTMY PERC 08/05 1419 Report Impression - Status: SIGNED Entered: 08/06/2023 1830 IMPRESSION: 1. Successful ultrasound and fluoroscopically guided placement of 10French drainage catheter into the known hepatic/pericholecysticcomplex cystic lesion/fluid collection/abscess. Fluid sample was sentto the lab for culture, which is pending. 2. Successful ultrasound and fluoroscopically guided placement of 10French percutaneous cholecystostomy drainage catheter. Fluid samplewas sent to the lab for culture, which is pending. Both catheters should be flushed with 10 mL each of sterile normalsaline twice daily.Impression By: [email or web address] Chidi Rodriguez M.D.CAT SCAN - CTA HEAD 08/05 1642 Report Impression - Status: SIGNED Entered: 08/06/20232010 IMPRESSION: High-grade stenosis involving the right M1 segment likely secondary tothrombus.Atherosclerotic disease within both carotid siphons with mildflow-limiting stenosis.Vessel irregularity of the distal intracranial vasculature with areasof severe flow-limiting stenosis in both cerebral arteries. Findings were discussed with Dr. Haider at 8:07 PM via telephone. (All qualitative and quantitative assessments of carotid bifurcationand proximal internal carotid artery stenosis are made referencing thedistal internal carotid artery {NASCET criteria}.) LOCATION: B2 Impression By: 16 Chidi Pratt M.D.CAT SCAN - CT HEAD/BRAIN W/O CONT 08/05 1642 Report Impression - Status: SIGNED Entered: 08/06/2023 1739 IMPRESSION: There are no acute findings seen is patient's brain on this unenhancedhead CT examination. Senescent changes which appear advanced for thepatient's stated age are noted.Impression By: [email or web address] - Javi Lawrence M.D.CAT SCAN - CT ANGIO NECK 08/06 1643 Report Impression - Status: SIGNED Entered: 08/06/20232010 IMPRESSION: High-grade stenosis involving the right M1 segment likely secondary tothrombus.Atherosclerotic disease within both carotid siphons with mildflow-limiting stenosis.Vessel irregularity of the distal intracranial vasculature with areasof severe flow-limiting stenosis in both cerebral arteries. Findings were discussed with Dr. Haider at 8:07 PM via telephone. (All qualitative and quantitative assessments of carotid bifurcationand proximal internal carotid artery stenosis are made referencing thedistal internal carotid artery {NASCET criteria}.) LOCATION: B2 Impression By: Yumiko Pratt M.D.CAT SCAN - CT HEAD/BRAIN W/O CONT 03/11 2327 Report Impression - Status: SIGNED Entered: 08/06/20232326 IMPRESSION:No acute intracranial abnormality. No intracranial hemorrhage.Chronic microvascular ischemic changes and mild cerebral volume loss. LOCATION: B2 Impression By: Yumiko Pratt M.D.RADIOLOGY - XR CHEST 1 V 08/06 0359 Report Impression - Status: SIGNED Entered: 08/07/2023 0448 IMPRESSION: No active pulmonary findings.Impression By: [email or web address] - Poncho Barrios M.D. Results: labs reviewed, vital signs reviewed, rhythm personally rev'dEcho results:Conclusions Summary: 1. Left ventricle: The cavity size is normal. Wall thickness is normal. Systolic function is normal. The estimated ejection fraction is 55-60%. Wall motion is normal; there are no regional wall motion abnormalities. Grade I diastolic dysfunction.2. Right ventricle: The RV pressure during systole is 42 mm Hg.3. Left atrium: The atrium is mildly dilated.4. Mitral valve: There is mild regurgitation.5. Tricuspid valve: There is mild regurgitation.6. Pericardium, extracardiac: A small pericardial effusion is identified. Diagnosis, Assessment PlanPlan discussed with: spouse/partner, nurse Free Text DxA P NotesFree Text DxA P Notes:1. Coronary artery disease: Hx of CABG (2020). s/p stent placement to diagonal artery on 07/02/23. Still need staged PCI to RCA. Continue Plavix and aspirin. Initial troponin was elevated and unclear if this is due to a recent event. Troponin trend is flat. Echocardiogram preserved LVEF. 2. Elevated LFTs/acute cholecystitis: s/p cholecystostomy tube placement. GI on board. 3. Altered mental status: MRI brain showed small subacute ischemia in the left coronary radiata Neurology following 4. Tachycardia with frequent PVCs in bigeminal and trigeminal pattern: No evidence of atrial fibrillation on telemetry. Increase metoprolol to 50 mg every 8 hours. Stop losartan to make room for beta-yoav. Medical decision making by Dr. Daniel. at 1419 at 0822 Addendum 1: 08/08/23 0602 by Esther Buckner correction. Patient had CABG in 2000. at 0602 RPT #:[id number] OF REPORTPRProgress [id number]:12:00G.[id number] for patient klvuWUJAQWRWXWZCRK0099-23-58H92:20:10 [facility] 2023-08-07 10:28:00 [id number]tfS 21px9n6qXa8kn4oETqS 46W5co3xHW+sQVSow0707-75-41W87:28:00 [facility]Neu[facility] Progress NoteREPORT#:[id number] REPORT STATUS: SignedREPORT INITIALIZATION DATE:08/07/23 TIME: 1028 PATIENT: MISSY CANALES UNIT #: [id number]#: [id number] [address] AGE: 68 SEX: M ATTEND: Raphael Ly [facility] AUTHOR: Riley Kamara MDREPT SERVICE DT/TIME: 08/07/23 1028* ALL edits or amendments must be made on the electronic/computer document * SubjectiveChief complaint:AMSHPI:Patient has more clear lateralizing deficits today. Flaccid on the right upper extremity, continues to be mute. Review of SystemsUnable to obtain due to:Aphasic Objective GeneralVS:Last Documented: Result Date Time Temp 37.4 08/06 0800 O2 Delivery BiPAP 08/06 0800 Pulse Ox 100 08/06 0759 FiO2 40 08/06 0759 Pulse 126 08/06 0759 O2 Flow Rate 10 08/06 0400 B/P 146/73 08/05 2117 B/P Mean 97.4 08/05 2117 Resp 37 08/05 2117 PATIENT WEIGHT: Weight (lb): 177Weight (oz): 14.61Weight (kg): 80.700 MedicationsCurrent Home MedicationsASPIRIN 81 MG PO DAILY CLOPIDOGREL (PLAVIX) 75 MG PO DAILY ALLOPURINOL (ZYLOPRIM) 300 MG PO DAILY ATORVASTATIN (LIPITOR) 40 MG PO BEDTIME BRIMONIDINE (ALPHAGAN P 0.1% OPHTH SOLN) 1 DROP EACH EYE Q8H DORZOLAMIDE/TIMOLOL (COSOPT 2%-0.5% OPHTH) 1 DROP EACH EYE BID FINASTERIDE (PROSCAR) 5 MG PO DAILY LATANOPROST (XALATAN 0.005% OPHTH SOLN) 1 DROP EACH EYE BEDTIME LOSARTAN (COZAAR) 25 MG PO DAILY METOPROLOL TARTRATE (LOPRESSOR) 50 MG PO BID TAMSULOSIN ER (FLOMAX) 0.8 MG PO DAILY GLIMEPIRIDE (AMARYL) 2 MG PO C BK DAPAGLIFLOZIN/metFORMIN 5/500 MG (XIGDUO XR 5/500 MG) 1 TAB PO DAILY Active Meds + DC'd Last 24 HrsInsulin Human Lispro (HUMALOG) 0 Q4H SUBQ (UNVr) Insulin Glargine (Semglee) 20 UNIT DAILY SUBQ (UNVr) Insulin Human Lispro (HUMALOG) 0 Q6HR SUBQ (DCr) Mupirocin (BACTROBAN 2% 22 GM OINTMENT) 1 APPLIC BID NASAL Dextrose/Water (DEXTROSE 10% IN WATER) 125 ML ASDIR PRN IV (CKD) Dextrose/Water (DEXTROSE 10% IN WATER) 250 ML ASDIR PRN IV (CKD) Glucagon (GLUCAGON) 1 MG ASDIR PRN IM Amiodarone HCl (NEXTERONE 150MG/D5W 100ML) 100 ML STAT STA IV (DC) Dextrose/Water (DEXTROSE 5% WATER) 1,000 ML .Q10H IV (DC) Miscellaneous Information (VANCOMYCIN PHARMACY TO DOSE) 1 EACH ASDIR IV (DC) Piperacillin Sod/Tazobactam Sod (ZOSYN 3.375GM) 3.375 GM Q8H IV (DC) Sodium Chloride (SODIUM CHLORIDE 0.9% 100 ML) 100 MLVancomycin HCl (VANCOMYCIN HCL) 1,145.46 MG Q12H IV (DC) Sodium Chloride (SODIUM CHLORIDE 0.9%) 250 MLPiperacillin Sod/Tazobactam Sod (ZOSYN 3.375GM) 3.375 GM STAT STA IV (DC) Sodium Chloride (SODIUM CHLORIDE 0.9% 100 ML) 100 MLVancomycin HCl (VANCOMYCIN HCL) 1,000 MG STAT STA IV (DC) Sodium Chloride (SODIUM CHLORIDE 0.9%) 250 MLSodium Chloride (SODIUM CHLORIDE 0.9%) 2,290.92 ML BOLUS STA IV (DC) Diltiazem HCl (CARDIZEM) 10 MG ONCE ONE IV (DC) Metronidazole/Sodium Chloride (metroNIDAZOLE 500MG/NS 100ML) 100 ML Q12H IV Sodium Chloride (SODIUM CHLORIDE 0.9%) 250 ML BOLUS PRN IV Iopamidol (ISOVUE-300 100ML) 100 ML .STK-MED ONE IV (DC) Ceftriaxone Sodium (ROCEPHIN) 2,000 MG Q24H IV Sodium Chloride (SODIUM CHLORIDE) 20 MLLidocaine HCl (XYLOCAINE) 0 .STK-MED ONE LOCAL (DC) Fentanyl Citrate (SUBLIMAZE) 0 .STK-MED ONE IV (DC) Dextrose/Water (DEXTROSE 10% IN WATER) 125 ML ASDIR PRN IV (DC) Dextrose/Water (DEXTROSE 10% IN WATER) 250 ML ASDIR PRN IV (DC) Glucagon (GLUCAGON) 1 MG ASDIR PRN IM (DC) Meropenem (MEROPENEM) 500 MG Q6H IV (DC) Sterile Water (WATER FOR INJECTION) 10 MLAtorvastatin Calcium (LIPITOR) 40 MG BEDTIME PO Latanoprost (XALATAN 2.5 ML OPHTH SOLN) 1 DROP BEDTIME EACH EYE Allopurinol (ZYLOPRIM) 300 MG DAILY PO Aspirin (ASPIRIN) 81 MG DAILY PO Clopidogrel Bisulfate (Plavix) 75 MG DAILY PO Finasteride (PROSCAR) 5 MG DAILY PO Losartan Potassium (COZAAR) 25 MG DAILY PO Tamsulosin HCl (Flomax 0.4 mg) 0.8 MG DAILY PO Timolol Maleate (TIMOPTIC 0.5% 5 ML OPHTH SOLN) 1 DROP BID EACH EYE Glimepiride (AmaryL) 2 MG C BK PO (DC) Brimonidine Tartrate (Alphagan-P 0.2% 5 ML OPHTH SOLN) 1 DROP Q8HR EACH EYE Metoprolol Tartrate (LOPRESSOR) 50 MG BID PO Insulin Human Lispro (HUMALOG) 0 AC HS SUBQ (DC) Hydralazine HCl (APRESOLINE) 10 MG Q6H PRN PRN IV Ondansetron HCl (ZOFRAN) 4 MG Q4H PRN PRN IV Dietitian nutrition assessmentThe data set between the solid lines has been imported from the dietitian's assessment. BMI Calculated: 27.9Nutrition related diagnosis: Nutrition diagnosis details: Nutrition problem: Nutrition etiology: Nutrition signs and symptoms: Nutrition prescription: Dietitian name: Assessment completed: Physical ExamNeuro comment:GEN: NAD, lethargic, confusedCVS: RRR, no carotid bruitCHEST: On BiPAP.ABD: Soft, NTTP NEUROMENTAL STATUS: Lethargic, does not follow commands. LANG/SPEECH: Mute CRANIAL NERVES:II: Pupils equal and reactive, no RAPD, no VF deficits, normal fundusIII, IV, : EOM intact, no gaze preference or deviation, no nystagmus.V: normal sensation in V1, V2, and V3 segments bilaterallyVII: no asymmetry, no nasolabial fold flatteningVIII: normal hearing to speechIX, X: normal palatal elevation, no uvular deviationXI: 5/5 head turn and 5/5 shoulder shrug bilaterallyXII: midline tongue protrusion MOTOR:Right upper extremity demonstrates no movement to noxious stimuli, left upper extremity spontaneously antigravity. Bilaterallower extremities demonstrate minimal movement to noxious stimuli. REFLEXES: 2/4 throughout, bilateral flexor planter response, no Genao's,no clonus SENSORY:As noted in motor portion COORD: Does not participate Diagnosis, Assessment PlanFree Text A P:Patient is 68-year-old male with a history of hypertension, hyperlipidemia, diabetes, and coronary artery disease who was hospitalized for cholecystitis presenting for evaluation of altered mental status. Suspected ischemic strokeAltered mental statusIntracranial atherosclerosisCholecystitisHyperlipidemiaHypertensionDiabe tesCoronary artery disease-Permissive hypertension-MRI brain without gflnzzmb-Lywxoluxkfssia-Ikcwkxxot-A1c, lipid panel-Continue aspirin and Rpkxds-Oewnosgspqdx-Gereytd, B12, folate, TSH, ABG reviewed-PT/OT/ST when appropriate at 1230 RPT #:[id number] OF REPORTPRProgress kxtz0742-37-26H86:28:00G.[id number] for patient ypazJBWGJSLTERVJOL9680-76-28S17:31:07 [facility] 2023-08-07 09:04:00 [id number]/KGg9sCb1PZAXky+7HhbcarGfH Jn8Psg1sXrK8nRI4pI2 FZjveePP0OkB809sE5025-51-07G77:04:558323-7471 [place] [address] PATIENT NAME: MISSY CANALES ADMIT DATE: 08/03/23ACCOUNT NO: [id number] ROOM NO: [facility] AGE: 68 REPORT TYPE: eELECTROCARDIOGRAM REPORT SEX: M ADMITTING PHYSICIAN:Raphael Ly MD ATTENDING PHYSICIAN:Raphael Ly MD Order:[id number] Reason : Sepsis Test Date/Time Stamp:SunAug 07 2023 09:04:43Blood Pressure : / mmHGVent. Rate : 127 BPM Atrial Rate : 127 BPM P-R Int : 122 ms QRS Dur : 088 ms QT Int : 324 ms P-R-T Axes : 076 008 081 degrees QTc Int : 470 ms Sinus tachycardia with frequent premature ventricular complexesOtherwise normal ECGWhen compared with ECG of 06-AUG-2023 21:39,No significant change was foundConfirmed by DIEGO ENG MD ([id number]) on 09/13/2023 5:11:30 PM Referred By: Bryce Hennessy Confirmed by:DIEGO ENG MD at 1711 PATIENT NAME: MISSY CANALES .[id number] e for patient avsaOBQAXYVFHVDVME6553-85-68W09:11:56 [facility] 2023-08-07 08:25:00 [id number]/g5sHTA2ibzxp+4krT0A /fq9mIqlD4YyVrrSy20 WDA3kwDrm19roFpN32463-18-32E05:25:00 [facility] ([facility])Gastroenterology Progress NoteREPORT#:[id number] REPORT STATUS: SignedREPORT INITIALIZATION DATE:08/07/23 TIME: 824 PATIENT: MISSY CANALES UNIT #: [id number]#: [id number] [address] [birth year] AGE: 68 SEX: M ATTEND: Raphael Ly MDADM AUTHOR: Lisa Cancino MDREPT SERVICE DT/TIME: 08/07/23824* ALL edits or amendments must be made on the electronic/computer document * SubjectiveChief complaint:Elevated LFtsHPI:68 year old man s/p cardiac stents 2 weeks ago who was sent to the hospital withelevated LFTs and possible acute cholecystitis. Pt had a stenet recently placed and was started on DAPT. Pt had labs showing elevated LFTs and was sent here forevaluation. Labs showed leukocytosis 15k. Elevated Tbili 3.7. Dbili 2.8. AST 79,ALT 105 and ALP 225. RUQ U/S showed possible cholecystitis and normal CBD of 4 mm in diatmeter. Pt denies pain. No dark urine or peyton-color stool 08/03; patient feels well. MRCP reviewed. No choledocholithiasis. Fluid collection at the liver could be related secondary to gallbladder perforation. LFTs and white count are down. 08/04: Plan for IR for cholecystostomy tube placement. LFts stable. WBC elevated.Was confused this am but improving. NO pain. No fevers. Added flagyl to his Abx regimen 08/05: NO new complaints. IR for abscess drain and cholecystostomy tube 08/06: Transferred overnight to ICU due to AMS. S/P IR with cholecystostomy tube and abscess drain Objective Physical ExamHEENT: EOMICardiovascular: normal heart soundsRespiratory: clear to auscultationAbdomen: non-tenderExtremities: no edema Diagnosis, Assessment PlanProblem List/A P: 1. Elevated LFTs Free Text A P:cholestatic pattern. CBD normal on RuQ U/S MRCP showed no evidence of choledocholithiasis.Large fluid collection within the liver could be secondary to gallbladder perforation.Recommend surgical evaluation again.Continue with antibiotics. Add flagyl s/p cholecystostomy tube and draiange of cystic fluid collection. Awaiting culture Surgery consultation reviewed. Agree with plan at 0827 RPT #:[id number] OF REPORTPRProgress [id number]:25:00G.[id number] for patient glcnBZNKOVSNAINMNM9604-00-77I73:27:37 [facility] 2023-08-07 07:38:00 [id number]f ELEyLeutg6JGV+/785T sWuaoBDI2ttb3mTFg3377-64-35S87:38:00 [facility] CenterHospitalist Progress NoteREPORT#:[id number] REPORT STATUS: SignedREPORT INITIALIZATION DATE:08/07/23 TIME: 737 PATIENT: MISSY CANALES UNIT #: [id number]#: [id number] [address] AGE: 68 SEX: M ATTEND: Raphael Ly AUTHOR: Nellie Palmer MDREPT SERVICE DT/TIME: 08/07/23 0738* ALL edits or amendments must be made on the electronic/computer document * SubjectiveChief complaint:Abd pain, N/v Fever Confusion Free Text Subj NotesFree Text Subj Notes:Patient appears critically ill, blood sugars high, arrhythmia noted on telemetrymonitoring, twelve-lead EKG ordered. Status post IR liver abscess drainage.and cholecystostomy tube yesterday, output appears to be hugh blood at bedside on rounds; abd soft, febrile intermittently, small bore feeding tube placed, AMS worse this AM and RUE flaccid. Currently on BiPAP Review of SystemsUnable to obtain due to:Patient is confused Objective GeneralVS/I O:Vital Signs: Date Time Temp Pulse Resp B/P B/P Pulse O2 O2 Flow FiO2 Mean Ox Delivery Rate 08/06 0210 130 100 40 08/06 0000 100.9 Nasal 3 cannula 08/05 2118 103.1 137 37 146/73 97.4 98 Room air 08/05 2104 102.7 144 40 132/75 94.0 95 Room air 08/05 1854 102.9 146 16 135/85 101.8 97 Room air 08/05 1829 140 28 133/81 98.4 100 08/05 1617 123 165/74 104.2 97 08/05 1611 98.8 109 98 08/05 1438 104 14 151/82 100 Room air 08/05 1428 104 14 148/75 100 Nasal 3 cannula 08/05 1424 101 15 138/72 100 Nasal 3 cannula 08/05 1414 104 15 146/70 100 Nasal 3 cannula 08/05 1355 102 15 154/74 97 Room air 08/05 1058 97.5 91 16 118/72 87.2 96 Room air 08/05 0830 105 162/78 106.0 PATIENT WEIGHT: Weight (lb): Weight (oz): Weight (kg): 76.364 Medications:Active Meds + DC'd Last 24 HrsDextrose/Water (DEXTROSE 5% WATER) 1,000 ML .Q10H IV Miscellaneous Information (VANCOMYCIN PHARMACY TO DOSE) 1 EACH ASDIR IV (DC) Piperacillin Sod/Tazobactam Sod (ZOSYN 3.375GM) 3.375 GM Q8H IV (DC) Sodium Chloride (SODIUM CHLORIDE 0.9% 100 ML) 100 MLVancomycin HCl (VANCOMYCIN HCL) 1,145.46 MG Q12H IV (DC) Sodium Chloride (SODIUM CHLORIDE 0.9%) 250 MLPiperacillin Sod/Tazobactam Sod (ZOSYN 3.375GM) 3.375 GM STAT STA IV (DC) Sodium Chloride (SODIUM CHLORIDE 0.9% 100 ML) 100 MLVancomycin HCl (VANCOMYCIN HCL) 1,000 MG STAT STA IV (DC) Sodium Chloride (SODIUM CHLORIDE 0.9%) 250 MLSodium Chloride (SODIUM CHLORIDE 0.9%) 2,290.92 ML BOLUS STA IV (DC) Diltiazem HCl (CARDIZEM) 10 MG ONCE ONE IV (DC) Metronidazole/Sodium Chloride (metroNIDAZOLE 500MG/NS 100ML) 100 ML Q12H IV Sodium Chloride (SODIUM CHLORIDE 0.9%) 250 ML BOLUS PRN IV Iopamidol (ISOVUE-300 100ML) 100 ML .STK-MED ONE IV (DC) Ceftriaxone Sodium (ROCEPHIN) 2,000 MG Q24H IV Sodium Chloride (SODIUM CHLORIDE) 20 MLLidocaine HCl (XYLOCAINE) 0 .STK-MED ONE LOCAL (DC) Fentanyl Citrate (SUBLIMAZE) 0 .STK-MED ONE IV (DC) Dextrose/Water (DEXTROSE 10% IN WATER) 125 ML ASDIR PRN IV (CKD) Dextrose/Water (DEXTROSE 10% IN WATER) 250 ML ASDIR PRN IV (CKD) Glucagon (GLUCAGON) 1 MG ASDIR PRN IM Meropenem (MEROPENEM) 500 MG Q6H IV (DC) Sterile Water (WATER FOR INJECTION) 10 MLAtorvastatin Calcium (LIPITOR) 40 MG BEDTIME PO Latanoprost (XALATAN 2.5 ML OPHTH SOLN) 1 DROP BEDTIME EACH EYE Allopurinol (ZYLOPRIM) 300 MG DAILY PO Aspirin (ASPIRIN) 81 MG DAILY PO Clopidogrel Bisulfate (Plavix) 75 MG DAILY PO Finasteride (PROSCAR) 5 MG DAILY PO Losartan Potassium (COZAAR) 25 MG DAILY PO Tamsulosin HCl (Flomax 0.4 mg) 0.8 MG DAILY PO Timolol Maleate (TIMOPTIC 0.5% 5 ML OPHTH SOLN) 1 DROP BID EACH EYE Glimepiride (AmaryL) 2 MG C BK PO Brimonidine Tartrate (Alphagan-P 0.2% 5 ML OPHTH SOLN) 1 DROP Q8HR EACH EYE Metoprolol Tartrate (LOPRESSOR) 50 MG BID PO Insulin Human Lispro (HUMALOG) 0 AC HS SUBQ Hydralazine HCl (APRESOLINE) 10 MG Q6H PRN PRN IV Ondansetron HCl (ZOFRAN) 4 MG Q4H PRN PRN IV Physical ExamGeneral appearance: chronically ill appearing, confused, frail, lethargicHead/Eyes: atraumatic, normocephalic, PERRLACardiovascular: normal heart sounds, regular rate rhythmRespiratory: aerating well, symmetric expansion, no distressAbdomen: non-tender, normal bowel soundsGenitourinary: no bladder distention, no flank painExtremities: no clubbing, no cyanosisMusculoskeletal: no muscle spasmNeuro/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: alert, normal speech ResultsFindings/Data:Laboratory Tests 08/05 2130 Blood Gas Puncture Site L Radial O2 Saturation (90 - 100 %) 95.9 ABG pH (7.35 - 7.45) 7.463 H ABG pCO2 (35.0 - 45 mmHg) 25.9 *L ABG pO2 (80 - 100.0 mmHg) 79.5 L ABG HCO3 (22.0 - 26.0 MMOL/L) 18.4 L ABG Total CO2 19.1 ABG Base Excess (-4.0 - 4.0 MMOL/L) -5.1 L ABG Hematocrit (37.5 - 50.7 %) 42 ABG Hemoglobin (12.5 - 16.9 G/DL) 14.2 Tasia Test Positive Sodium (134 - 147 mmol/L) 158 *H Potassium (3.4 - 5.0 mmol/L) 3.5 Chloride (100 - 108 mmol/L) 128 H Ionized Calcium (1.12 - 1.32 MMOL/L) 1.26 Lactic Acid (0.9 - 1.7 mmol/l) 1.5 Temperature (F) 101.1 O2 Delivery Device RA Laboratory Tests 08/06 08/06 08/06 08/06 08/06 0456 0456 0456 0244 0244Chemistry Sodium (134 - 147 mEq/L) 154 H Potassium (3.4 - 5.0 mEq/L) 3.9 Chloride (100 - 108 mEq/L) 122 H Carbon Dioxide (21 - 33 mEq/l) 16 L Anion Gap (0 - 20) 20 BUN (7 - 25 mg/dL) 20 Creatinine (0.6 - 1.3 mg/dL) 1.1 Glomerular Filtr Rate (70 - 80) 72.2 Glucose (77 - 141 mg/dL) 294 H Hemoglobin A1c (4.8 - 6.0 %A1C) 8.2 H Lactic Acid (0.4 - 1.9 mmol/L) 2.1 H Calcium (8.0 - 10.5 mg/dL) 8.4 Total Bilirubin (0.0 - 1.0 mg/dL) 2.50 H AST (8 - 34 IUnit/L) 175 H ALT (10 - 49 IUnit/L) 125 H Total Alk Phosphatase (20 - 125 171 HIUnit/L) Total Protein (6.4 - 8.2 g/dL) 6.7 Albumin (3.4 - 5.0 g/dL) 2.40 L Triglycerides (40 - 150 mg/dL) 144 Cholesterol (<200 mg/dL) 125 LDL Cholesterol Measurd (0 - 100 mg/dL) 92.0 HDL Cholesterol (40 - 60 MG/DL) 8.3 L Cholesterol/HDL Ratio (3.43 - 4.97 15.06 HRATIO) Vitamin B12 (193 - 986 pg/mL) 1126 H 1165 H Folate (3.1 - 17.5 ng/mL) 11.8 08/06 08/06 08/06 08/06 08/06 0244 0244 0244 0151 0013Chemistry Sodium (134 - 147 mEq/L) 154 H Potassium (3.4 - 5.0 mEq/L) 4.2 Chloride (100 - 108 mEq/L) 123 H Carbon Dioxide (21 - 33 mEq/l) 21 Anion Gap (0 - 20) 14 BUN (7 - 25 mg/dL) 23 Creatinine (0.6 - 1.3 mg/dL) 1.2 Glomerular Filtr Rate (70 - 80) 65.1 L Glucose (77 - 141 mg/dL) 280 H POC Glucose (70 - 110 MG/DL) 216 H Calcium (8.0 - 10.5 mg/dL) 8.4 Phosphorus (2.5 - 4.9 MG/DL) 3.6 Magnesium (1.6 - 2.6 mg/dL) 2.09 Total Bilirubin (0.0 - 1.0 mg/dL) 2.60 H AST (8 - 34 IUnit/L) 185 H ALT (10 - 49 IUnit/L) 126 H Total Alk Phosphatase (20 - 125 167 HIUnit/L) Ammonia (11 - 35 umol/L) < 10 L Troponin I High Sens (0 - 54 ng/L) 489 *H 454 *H Total Protein (6.4 - 8.2 g/dL) 6.5 Albumin (3.4 - 5.0 g/dL) 2.10 L Lipase (13 - 57 U/L) 81 H TSH (0.42 - 5.47 IU/mL) 0.07 L Free T4 (0.77 - 1.61 ng/dL) 1.0 08/05 08/05 08/05 08/05 08/05 2153 2130 1904 1552 1052 Chemistry POC Creatinine (0.8 - 1.3 mg/dL) 1.0 POC Glucose (70 - 110 MG/DL) 230 H 258 H 249 H 266 H POC Glucose (mg/dL) (70 - 110 MG/DL) 295 H Laboratory Tests 08/06 08/06 08/05 0243 0243 1217 Coagulation INR (0.8 - 1.2) 1.2 1.2 PTT (Courtney) (25.0 - 39.5 Seconds) 16.6 L 31.7 PT Patient/Control Mix (9.3 - 12.9 SECONDS) 12.8 13.5 H Fibrinogen (160 - 450 MG/DL) 648 H Laboratory Tests 08/06 08/06 0456 0244 Hematology WBC (4.5 - 11.0 x10 3/uL) 17.7 H 17.0 H RBC (4.00 - 5.60 x10 6/uL) 3.75 L 4.04 Hgb (12.5 - 16.9 g/dL) 11.4 L 12.2 L Hct (37.5 - 50.7 %) 34.6 L 37.0 L MCV (81.0 - 99.0 fL) 92.3 91.6 MCH (27.0 - 33.0 pg) 30.4 30.2 MCHC (33.0 - 37.0 g/dL) 32.9 L 33.0 RDW (11.5 - 14.5 %) 14.6 H 14.5 Plt Count (150 - 400 x10 3/uL) 216 179 MPV (7.0 - 9.0 fL) 11.3 H 11.1 H Neut % (Auto) (56.0 - 77.0 %) 81.8 H 83.2 H Lymph % (Auto) (14.0 - 32.0 %) 9.5 L 8.0 L Evans % (Auto) (4.8 - 9.0 %) 7.3 7.8 Eos % (Auto) (0.3 - 3.7 %) 0.0 L 0.1 L Baso % (Auto) (0.0 - 2.0 %) 0.2 0.1 Neut # (Auto) (2.0 - 7.6 x10 3/uL) 14.50 H 14.17 H Lymph # (Auto) (1.0 - 3.8 x10 3/uL) 1.68 1.36 Evans # (Auto) (0.1 - 0.8 x10 3/uL) 1.29 H 1.33 H Eos # (Auto) (0.0 - 0.2 x10 3/uL) 0.00 0.01 Baso # (Auto) (0.0 - 0.2 x10 3/uL) 0.03 0.02 Abs Immat Gran (auto) (0.00 - 0.03 x10 3/uL) 0.22 H 0.14 H Immature Gran % (0.0 - 2.0 %) 1.2 0.8 Nucleated RBC % (0 - 0 %) 0.0 0.0 Nucleated RBCs # (Man) (0.0 - 0.1 x10 3/uL) 0.00 0.00 Radiology data:Recent Impressions:[facility]CIAL PROCEDURES - [facility] 08/05 1419 Report Impression - Status: SIGNED Entered: 08/06/2023 2540 IMPRESSION: 1. Successful ultrasound and fluoroscopically guided placement of 10French drainage catheter into the known hepatic/pericholecysticcomplex cystic lesion/fluid collection/abscess. Fluid sample was sentto the lab for culture, which is pending. 2. Successful ultrasound and fluoroscopically guided placement of 10French percutaneous cholecystostomy drainage catheter. Fluid samplewas sent to the lab for culture, which is pending. Both catheters should be flushed with 10 mL each of sterile normalsaline twice daily.Impression By: [email or web address] - Jose Guadalupe Rodriguez M.D.CAT SCAN - CTA HEAD 08/05 1642 Report Impression - Status: SIGNED Entered: 08/06/20232010 IMPRESSION: High-grade stenosis involving the right M1 segment likely secondary tothrombus.Atherosclerotic disease within both carotid siphons with mildflow-limiting stenosis.Vessel irregularity of the distal intracranial vasculature with areasof severe flow-limiting stenosis in both cerebral arteries. Findings were discussed with Dr. Haider at 8:07 PM via telephone. (All qualitative and quantitative assessments of carotid bifurcationand proximal internal carotid artery stenosis are made referencing thedistal internal carotid artery {NASCET criteria}.) LOCATION: B2 Impression By: Yumiko Pratt M.D.CAT SCAN - CT HEAD/BRAIN W/O CONT 08/05 1642 Report Impression - Status: SIGNED Entered: 08/06/2023 1739 IMPRESSION: There are no acute findings seen is patient's brain on this unenhancedhead CT examination. Senescent changes which appear advanced for thepatient's stated age are noted.Impression By: JostinRLA2 Chidi Lawrence M.D.CAT SCAN - CT ANGIO NECK 08/06 1643 Report Impression - Status: SIGNED Entered: 08/06/20232010 IMPRESSION: High-grade stenosis involving the right M1 segment likely secondary tothrombus.Atherosclerotic disease within both carotid siphons with mildflow-limiting stenosis.Vessel irregularity of the distal intracranial vasculature with areasof severe flow-limiting stenosis in both cerebral arteries. Findings were discussed with Dr. Haider at 8:07 PM via telephone. (All qualitative and quantitative assessments of carotid bifurcationand proximal internal carotid artery stenosis are made referencing thedistal internal carotid artery {NASCET criteria}.) LOCATION: B2 Impression By: Yumiko Pratt M.D.CAT SCAN - CT HEAD/BRAIN W/O CONT 08/05 2326 Report Impression - Status: SIGNED Entered: 08/06/20232326 IMPRESSION:No acute intracranial abnormality. No intracranial hemorrhage.Chronic microvascular ischemic changes and mild cerebral volume loss. LOCATION: B2 Impression By: Yumiko Pratt M.D.RADIOLOGY - XR CHEST 1 V 08/06 0359 Report Impression - Status: SIGNED Entered: 08/07/2023 0448 IMPRESSION: No active pulmonary findings.Impression By: Abhi - Poncho Barrios M.D. InterpretationI independently reviewed the [ ] and my interpretation is [ ] Treatment Prophylaxis Treatment ProphylaxisOxygen: room air Diagnosis, Assessment Plan Free Text DxA P NotesFree text DxA P notes:Assessment - Acute Cholangitis/Cholelithiasis with distended gallbladder.- Elevated LFTs and Bilirubin due to Possible Acute Chloangitis.- Elevated Troponin could be demand Ischemia.- Abd pain and N/V.- Confusion- ARELY.- Hyperglycemia.- Sepsis; tachycardia, Bcx Gram neg rods- HX of HTN/DM type II/HLD and CAD s/p stent. Plan: Continue BiPAP, check ABGs, twelve-lead EKG ordered and reviewed, EKG showed multiple PVCs stat BMP ordered and-electrolytes replaced Telemonitoring, strict vital monitoring, every 2 hour neuroexam, right side flaccid new finding, neurology consulted Fever, tachycardia, leukocytosis, altered mental status, likely secondary to sepsis, worsening overnight and transferred to ICU, on IV Flagyl/IV Rocephin, IDfollowingMRCP showed no evidence of choledocholithiasis, large fluid collection within the liver, likely secondary to gallbladder perforation after tube placement Monitor, replace electrolytes Recent cardiac cath status post recent PCI continue aspirin Plavix, cardiology following Quality: Gen Med Crit Care Current MedicationsCurrent medication review:I attest that the foregoing medication list in the medical record is true, accurate, and complete to the best of my knowledge. Advanced Care Plan 65 or OlderDiscussed with: patient, surrogate decis. maker at 0905 [facility] #:[id number] OF REPORTPRProgress [id number]:38:00G.[id number] for patient [id number]:05:46 [facility] 2023-08-06 23:53:00 [id number] +taCcGSP07thrZUd338 Xt3iaZEnodWkDtK0c6017-93-40M55:53:00 [facility] ([facility])Cardiology Progress NoteREPORT#:[id number] REPORT STATUS: SignedREPORT INITIALIZATION DATE:08/06/23 TIME: 2352 PATIENT: MISSY CANALES UNIT #: [id number]#: [id number] [address] AGE: 68 SEX: M ATTEND: Raphael Ly MDADM AUTHOR: Lisa Daniel MDREPT SERVICE DT/TIME: 08/06/232352* ALL edits or amendments must be made on the electronic/computer document * Objective GeneralVS/I O:24 hour I O ending at 0700: 08/05 0700 08/04 1900 Intake Total 360.00 Output Total Balance 360.00 Intake, IV 10.00 Intake, Oral 350 Number 1 Incontinent Voids Vital Signs: Date Time Temp Pulse Resp B/P B/P Pulse O2 O2 Flow FiO2 Mean Ox Delivery Rate 08/05 2117 103.1 137 37 146/73 97.4 98 Room air 08/05 210 102.7 144 40 132/75 94.0 95 Room air 08/05 1854 102.9 146 16 135/85 101.8 97 Room air 08/05 1829 140 28 133/81 98.4 100 08/05 1617 123 165/74 104.2 97 08/05 1611 98.8 109 98 08/05 1438 104 14 151/82 100 Room air 08/05 1428 104 14 148/75 100 Nasal 3 cannula 08/05 1424 101 15 138/72 100 Nasal 3 cannula 08/05 1414 104 15 146/70 100 Nasal 3 cannula 08/05 1355 102 15 154/74 97 Room air 08/05 1058 97.5 91 16 118/72 87.2 96 Room air 08/05 0830 105 162/78 106.0 08/05 0703 99.0 66 18 188/67 107.2 98 Room air 08/05 0421 98.8 109 18 150/71 97.2 97 Room air 08/05 0421 98.8 109 18 150/71 97.2 97 Room air PATIENT WEIGHT: Weight (lb): Weight (oz): Weight (kg): 76.364 Medications:Active Meds + DC'd Last 24 HrsMiscellaneous Information (VANCOMYCIN PHARMACY TO DOSE) 1 EACH ASDIR IV (DC) Piperacillin Sod/Tazobactam Sod (ZOSYN 3.375GM) 3.375 GM Q8H IV (DC) Sodium Chloride (SODIUM CHLORIDE 0.9% 100 ML) 100 MLVancomycin HCl (VANCOMYCIN HCL) 1,145.46 MG Q12H IV (DC) Sodium Chloride (SODIUM CHLORIDE 0.9%) 250 MLPiperacillin Sod/Tazobactam Sod (ZOSYN 3.375GM) 3.375 GM STAT STA IV (DC) Sodium Chloride (SODIUM CHLORIDE 0.9% 100 ML) 100 MLVancomycin HCl (VANCOMYCIN HCL) 1,000 MG STAT STA IV (DC) Sodium Chloride (SODIUM CHLORIDE 0.9%) 250 MLSodium Chloride (SODIUM CHLORIDE 0.9%) 2,290.92 ML BOLUS STA IV (DC) Diltiazem HCl (CARDIZEM) 10 MG ONCE ONE IV (DC) Metronidazole/Sodium Chloride (metroNIDAZOLE 500MG/NS 100ML) 100 ML Q12H IV Sodium Chloride (SODIUM CHLORIDE 0.9%) 250 ML BOLUS PRN IV Iopamidol (ISOVUE-300 100ML) 100 ML .STK-MED ONE IV (DC) Ceftriaxone Sodium (ROCEPHIN) 2,000 MG Q24H IV Sodium Chloride (SODIUM CHLORIDE) 20 MLLidocaine HCl (XYLOCAINE) 0 .STK-MED ONE LOCAL (DC) Fentanyl Citrate (SUBLIMAZE) 0 .STK-MED ONE IV (DC) Dextrose/Water (DEXTROSE 10% IN WATER) 125 ML ASDIR PRN IV (CKD) Dextrose/Water (DEXTROSE 10% IN WATER) 250 ML ASDIR PRN IV (CKD) Glucagon (GLUCAGON) 1 MG ASDIR PRN IM Meropenem (MEROPENEM) 500 MG Q6H IV (DC) Sterile Water (WATER FOR INJECTION) 10 MLAtorvastatin Calcium (LIPITOR) 40 MG BEDTIME PO Latanoprost (XALATAN 2.5 ML OPHTH SOLN) 1 DROP BEDTIME EACH EYE Allopurinol (ZYLOPRIM) 300 MG DAILY PO Aspirin (ASPIRIN) 81 MG DAILY PO Clopidogrel Bisulfate (Plavix) 75 MG DAILY PO Finasteride (PROSCAR) 5 MG DAILY PO Losartan Potassium (COZAAR) 25 MG DAILY PO Tamsulosin HCl (Flomax 0.4 mg) 0.8 MG DAILY PO Timolol Maleate (TIMOPTIC 0.5% 5 ML OPHTH SOLN) 1 DROP BID EACH EYE Glimepiride (AmaryL) 2 MG C BK PO Brimonidine Tartrate (Alphagan-P 0.2% 5 ML OPHTH SOLN) 1 DROP Q8HR EACH EYE Metoprolol Tartrate (LOPRESSOR) 50 MG BID PO Insulin Human Lispro (HUMALOG) 0 AC HS SUBQ Hydralazine HCl (APRESOLINE) 10 MG Q6H PRN PRN IV Ondansetron HCl (ZOFRAN) 4 MG Q4H PRN PRN IV Physical ExamHead/Eyes: atraumatic, normocephalicENT: moist mucosal membranesNeck: full range of motion, no JVDCardiovascular: CV assessment: regular rate and rhythm, BP pulses = bilaterally, normal heart soundsRespiratory: clear to auscultation, no distressAbdomen: soft, non-tender, normal bowel soundsUpper extremity: UE assessment: normal capillary refill, normal temperatureLower extremity: LE assessment: normal capillary refill, normal temperatureMusculoskeletal: full range of motionNeuro/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: alert, oriented X 3, CN II-XII intactSkin: dry, intact, normal colorPsychiatry: normal affect ResultsFindings/Data:Laboratory Tests 08/050 Blood Gas Puncture Site L Radial O2 Saturation (90 - 100 %) 95.9 ABG pH (7.35 - 7.45) 7.463 H ABG pCO2 (35.0 - 45 mmHg) 25.9 *L ABG pO2 (80 - 100.0 mmHg) 79.5 L ABG HCO3 (22.0 - 26.0 MMOL/L) 18.4 L ABG Total CO2 19.1 ABG Base Excess (-4.0 - 4.0 MMOL/L) -5.1 L ABG Hematocrit (37.5 - 50.7 %) 42 ABG Hemoglobin (12.5 - 16.9 G/DL) 14.2 Tasia Test Positive Sodium (134 - 147 mmol/L) 158 *H Potassium (3.4 - 5.0 mmol/L) 3.5 Chloride (100 - 108 mmol/L) 128 H Ionized Calcium (1.12 - 1.32 MMOL/L) 1.26 Lactic Acid (0.9 - 1.7 mmol/l) 1.5 Temperature (F) 101.1 O2 Delivery Device RA Laboratory Tests 08/05 08/05 08/05 08/05 08/05 2153 2130 1904 1552 1052 Chemistry POC Creatinine (0.8 - 1.3 mg/dL) 1.0 POC Glucose (70 - 110 MG/DL) 230 H 258 H 249 H 266 H POC Glucose (mg/dL) (70 - 110 MG/DL) 295 H 08/05 0702 Chemistry POC Glucose (70 - 110 MG/DL) 264 H Laboratory Tests 08/05 1217 Coagulation INR (0.8 - 1.2) 1.2 PTT (Courtney) (25.0 - 39.5 Seconds) 31.7 PT Patient/Control Mix (9.3 - 12.9 SECONDS) 13.5 H Radiology data:Recent Impressions:SPECIAL PROCEDURES - SP CHLECYSTOSTMY PERC 08/05 1419 Report Impression - Status: SIGNED Entered: 08/06/2023 1626 IMPRESSION: 1. Successful ultrasound and fluoroscopically guided placement of 10French drainage catheter into the known hepatic/pericholecysticcomplex cystic lesion/fluid collection/abscess. Fluid sample was sentto the lab for culture, which is pending. 2. Successful ultrasound and fluoroscopically guided placement of 10French percutaneous cholecystostomy drainage catheter. Fluid samplewas sent to the lab for culture, which is pending. Both catheters should be flushed with 10 mL each of sterile normalsaline twice daily.Impression By: JostinASPia - Jose Guadalupe Rodriguez M.D.CAT SCAN - CTA HEAD 08/05 1643 Report Impression - Status: SIGNED Entered: 08/06/20232010 IMPRESSION: High-grade stenosis involving the right M1 segment likely secondary tothrombus.Atherosclerotic disease within both carotid siphons with mildflow-limiting stenosis.Vessel irregularity of the distal intracranial vasculature with areasof severe flow-limiting stenosis in both cerebral arteries. Findings were discussed with Dr. Haider at 8:07 PM via telephone. (All qualitative and quantitative assessments of carotid bifurcationand proximal internal carotid artery stenosis are made referencing thedistal internal carotid artery {NASCET criteria}.) LOCATION: B2 Impression By: Yumiko Pratt M.D.CAT SCAN - CT HEAD/BRAIN W/O CONT 08/05 1642 Report Impression - Status: SIGNED Entered: 08/06/2023 1739 IMPRESSION: There are no acute findings seen is patient's brain on this unenhancedhead CT examination. Senescent changes which appear advanced for thepatient's stated age are noted.Impression By: JostinRLA2 - Javi Lawrence M.D.CAT SCAN - CT ANGIO NECK 08/06 1643 Report Impression - Status: SIGNED Entered: 08/06/20232010 IMPRESSION: High-grade stenosis involving the right M1 segment likely secondary tothrombus.Atherosclerotic disease within both carotid siphons with mildflow-limiting stenosis.Vessel irregularity of the distal intracranial vasculature with areasof severe flow-limiting stenosis in both cerebral arteries. Findings were discussed with Dr. Haider at 8:07 PM via telephone. (All qualitative and quantitative assessments of carotid bifurcationand proximal internal carotid artery stenosis are made referencing thedistal internal carotid artery {NASCET criteria}.) LOCATION: B2 Impression By: Yumiko Pratt M.D.CAT SCAN - CT HEAD/BRAIN W/O CONT 08/05 2326 Report Impression - Status: SIGNED Entered: 08/06/20232326 IMPRESSION:No acute intracranial abnormality. No intracranial hemorrhage.Chronic microvascular ischemic changes and mild cerebral volume loss. LOCATION: B2 Impression By: Yumiko Pratt M.D. Diagnosis, Assessment Plan Free Text DxA P NotesFree Text DxA P Notes:1. Coronary artery disease: Patient reportedly had recent stents, patient's spouse reports PCI on July 03, 2023, continue Plavix and aspirin. Initial troponin was elevated and unclear if this is due to a recent event. Echocardiogram pendingRepeat troponin also elevated however decreasing. Continue telemetry 2. Elevated LFTs: Would require ERCP, GI following, would need to be on dual antiplatelets until we get records from his recent cath and stents. 3. Altered mental status: at 0822 RPT #:[id number] OF REPORTPRProgress [id number]:53:00G.[id number] for patient qenwSPIVKVVRPFQBOH1543-35-03G69:23:05 [facility] 2023-08-06 22:22:00 [id number]/WjHMGD4t6kUx f980y3zSjaMBnncgbpb dJ/mvy3L/bE8oGGAF3602-17-26Z43:22:00 [facility] ([facility])Critical Care Consult NoteREPORT#:[id number] REPORT STATUS: SignedREPORT INITIALIZATION DATE:08/06/23 TIME: 2221 PATIENT: MISSY CANALES UNIT #: [id number]#: [id number] [address] [birth year] AGE: 68 SEX: M ATTEND: Raphael Ly AUTHOR: Leroy Vences MDREPT SERVICE DT/TIME: 08/06/232221* ALL edits or amendments must be made on the electronic/computer document * History of Present Illness HPIRequesting clinician: Dr. Schafer for consult:Rapid response altered mental statusChief complaint:Altered mental statusPCP:PCP: Kenneth Cummings MD HPI:Patient is a 68 year old man with a past medical history of hypertension, hyperlipidemia, diabetes, and coronary artery disease who was hospitalized for cholecystitis became altered acutely, leading to a rapid response called this evening. Reviewing patient's chart, it appears that he recently underwent percutaneous drain placement for his cholecystitis. Also reviewing the chart, it appears that patient's indicated that he has been having a decline over the past 5 days, which prompted his evaluation in the hospital. Per chart review, patient appears to have already been evaluated for his altered mental status by neurology. A CT angio of the head and neck was obtained with evidenceshowing of severe stenosis of the M1. Neurology's recommendation was for medical management. Review of the CT angio of the head and neck that was performed, at that time did not demonstrate large vessel obstruction. A repeat CT of the head without contrast performed to evaluate for possible bleeding given the most recent mental status change. No family was present at bedside initially. Patient admitted to ICU for further monitoring and evaluation. Critical care medicine was consulted for further assistance in the patient's verbal altered mentation. History - Adult longitudinalPast medical history:Reports: Diabetes mellitus, Hypertension. Additional medical history:HTN, HLD, DM type II and CADAdditional surgical history:recent cardia cathAlcohol use: Denies EtOH useDrug use: Denies recreational drugsSmoking status for patients 13 years old or older: Former SmokerAllergies:Coded Allergies:No Known Allergies (08/03/23) Review of Systems ROSUnable to obtain due to:Altered mental status Objective Physical ExamVS/I O:Last Documented: Result Date Time Pulse Ox 98 08/05 2117 B/P 146/73 08/05 2117 B/P Mean 97.4 08/05 2117 O2 Delivery Room air 08/05 2117 Temp 39.5 08/05 2117 Pulse 137 08/05 2117 Resp 37 08/05 2117 O2 Flow Rate 3 08/05 1428 24 hour I O ending at 0700: 08/05 0700 08/04 1900 Intake Total 360.00 Output Total Balance 360.00 Intake, IV 10.00 Intake, Oral 350 Number 1 Incontinent Voids Patient Weight and BMI Weight (kg): 76.364 BMI: 26.4 Medications:Active Meds + DC'd Last 24 HrsMiscellaneous Information (VANCOMYCIN PHARMACY TO DOSE) 1 EACH ASDIR IV (DC) Piperacillin Sod/Tazobactam Sod (ZOSYN 3.375GM) 3.375 GM Q8H IV (DC) Sodium Chloride (SODIUM CHLORIDE 0.9% 100 ML) 100 MLVancomycin HCl (VANCOMYCIN HCL) 1,145.46 MG Q12H IV (DC) Sodium Chloride (SODIUM CHLORIDE 0.9%) 250 MLPiperacillin Sod/Tazobactam Sod (ZOSYN 3.375GM) 3.375 GM STAT STA IV (DC) Sodium Chloride (SODIUM CHLORIDE 0.9% 100 ML) 100 MLVancomycin HCl (VANCOMYCIN HCL) 1,000 MG STAT STA IV Sodium Chloride (SODIUM CHLORIDE 0.9%) 250 MLSodium Chloride (SODIUM CHLORIDE 0.9%) 2,290.92 ML BOLUS STA IV (DC) Diltiazem HCl (CARDIZEM) 10 MG ONCE ONE IV (DC) Metronidazole/Sodium Chloride (metroNIDAZOLE 500MG/NS 100ML) 100 ML Q12H IV Sodium Chloride (SODIUM CHLORIDE 0.9%) 250 ML BOLUS PRN IV Iopamidol (ISOVUE-300 100ML) 100 ML .STK-MED ONE IV (DC) Ceftriaxone Sodium (ROCEPHIN) 2,000 MG Q24H IV Sodium Chloride (SODIUM CHLORIDE) 20 MLLidocaine HCl (XYLOCAINE) 0 .STK-MED ONE LOCAL (DC) Fentanyl Citrate (SUBLIMAZE) 0 .STK-MED ONE IV (DC) Dextrose/Water (DEXTROSE 10% IN WATER) 125 ML ASDIR PRN IV (CKD) Dextrose/Water (DEXTROSE 10% IN WATER) 250 ML ASDIR PRN IV (CKD) Glucagon (GLUCAGON) 1 MG ASDIR PRN IM Meropenem (MEROPENEM) 500 MG Q6H IV (DC) Sterile Water (WATER FOR INJECTION) 10 MLAtorvastatin Calcium (LIPITOR) 40 MG BEDTIME PO Latanoprost (XALATAN 2.5 ML OPHTH SOLN) 1 DROP BEDTIME EACH EYE Allopurinol (ZYLOPRIM) 300 MG DAILY PO Aspirin (ASPIRIN) 81 MG DAILY PO Clopidogrel Bisulfate (Plavix) 75 MG DAILY PO Finasteride (PROSCAR) 5 MG DAILY PO Losartan Potassium (COZAAR) 25 MG DAILY PO Tamsulosin HCl (Flomax 0.4 mg) 0.8 MG DAILY PO Timolol Maleate (TIMOPTIC 0.5% 5 ML OPHTH SOLN) 1 DROP BID EACH EYE Glimepiride (AmaryL) 2 MG C BK PO Brimonidine Tartrate (Alphagan-P 0.2% 5 ML OPHTH SOLN) 1 DROP Q8HR EACH EYE Metoprolol Tartrate (LOPRESSOR) 50 MG BID PO Insulin Human Lispro (HUMALOG) 0 AC HS SUBQ Dextrose/Sodium Chloride (Dextrose 5% / 0.9% NaCl) 1,000 ML .Q10H IV (DC) Hydralazine HCl (APRESOLINE) 10 MG Q6H PRN PRN IV Ondansetron HCl (ZOFRAN) 4 MG Q4H PRN PRN IV General appearance: altered mental status, chronically ill appearing, frail, no respiratory distressHead/Eyes: atraumatic, clear cornea, normal conjunctiva/sclera, PERRLENT: dry mucosal membraneNeck: normal thyroid, no masses or swellingCardiovascular: tachycardia, no rubRespiratory: rhonchi, symmetric expansion, no distressAbdomen: (Percutanous drain in place), soft, non-tenderExtremities: abnormal capillary refill, no clubbing, no cyanosis, no edemaMusculoskeletal: normal inspectionNeuro/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: altered mental status, alertSkin: dry, intact, normal color, normal temperature, no rashPsychiatry: unable to evaluate ResultsFindings/Data:Laboratory Tests 08/05 2129 Blood Gas Puncture Site L Radial O2 Saturation (90 - 100 %) 95.9 ABG pH (7.35 - 7.45) 7.463 H ABG pCO2 (35.0 - 45 mmHg) 25.9 *L ABG pO2 (80 - 100.0 mmHg) 79.5 L ABG HCO3 (22.0 - 26.0 MMOL/L) 18.4 L ABG Total CO2 19.1 ABG Base Excess (-4.0 - 4.0 MMOL/L) -5.1 L ABG Hematocrit (37.5 - 50.7 %) 42 ABG Hemoglobin (12.5 - 16.9 G/DL) 14.2 Tasia Test Positive Sodium (134 - 147 mmol/L) 158 *H Potassium (3.4 - 5.0 mmol/L) 3.5 Chloride (100 - 108 mmol/L) 128 H Ionized Calcium (1.12 - 1.32 MMOL/L) 1.26 Lactic Acid (0.9 - 1.7 mmol/l) 1.5 Temperature (F) 101.1 O2 Delivery Device RA Laboratory Tests 08/05 08/05 08/05 08/05 08/05 2153 2130 1904 1552 1052 Chemistry POC Creatinine (0.8 - 1.3 mg/dL) 1.0 POC Glucose (70 - 110 MG/DL) 230 H 258 H 249 H 266 H POC Glucose (mg/dL) (70 - 110 MG/DL) 295 H 08/05 0702 Chemistry POC Glucose (70 - 110 MG/DL) 264 H Laboratory Tests 08/05 1217 Coagulation INR (0.8 - 1.2) 1.2 PTT (Hand) (25.0 - 39.5 Seconds) 31.7 PT Patient/Control Mix (9.3 - 12.9 SECONDS) 13.5 H Microbiology:08/06 2155 NASAL: MRSA DNA Surveillance Screen - ORD08/06 2155 BLOOD: Blood Culture - ORD08/06 2155 BLOOD: Blood Culture Gram Stain - ORD08/06 2155 BLOOD: Blood Culture - ORD08/06 2155 BLOOD: Blood Culture Gram Stain - ORD08/05 2146 BLOOD: Blood Culture - ORD08/05 2146 BLOOD: Blood Culture Gram Stain - ORD08/05 2146 BLOOD: Blood Culture - ORD08/05 2146 BLOOD: Blood Culture Gram Stain - ORD08/05 142 ASPIRATE: Body Fluid Culture - RES08/05 142 ASPIRATE: Anaerobic Culture - RES08/05 142 ASPIRATE: Gram Stain - RES08/05 142 ASPIRATE: Body Fluid Culture - RES08/05 142 ASPIRATE: Anaerobic Culture - RES08/05 142 ASPIRATE: Gram Stain - RES08/03 0109 BLOOD: Blood Culture - COMP GRAM NEGATIVE ROD08/03 0109 BLOOD: Blood Culture Gram Stain - COMP08/03 0109 BLOOD: Blood Culture - COMP CITROBACTER QHLHTRJ09/09 010 BLOOD: Blood Culture Gram Stain - COMP Radiology data:Recent Impressions:SPECIAL PROCEDURES - SP CHLECYSTOSTMY PERC 08/05 1419 Report Impression - Status: SIGNED Entered: 08/06/2023 1626 IMPRESSION: 1. Successful ultrasound and fluoroscopically guided placement of 10French drainage catheter into the known hepatic/pericholecysticcomplex cystic lesion/fluid collection/abscess. Fluid sample was sentto the lab for culture, which is pending. 2. Successful ultrasound and fluoroscopically guided placement of 10French percutaneous cholecystostomy drainage catheter. Fluid samplewas sent to the lab for culture, which is pending. Both catheters should be flushed with 10 mL each of sterile normalsaline twice daily.Impression By: JostinASPia Rodriguez M.D.CAT SCAN - CTA HEAD 08/05 1643 Report Impression - Status: SIGNED Entered: 08/06/20232010 IMPRESSION: High-grade stenosis involving the right M1 segment likely secondary tothrombus.Atherosclerotic disease within both carotid siphons with mildflow-limiting stenosis.Vessel irregularity of the distal intracranial vasculature with areasof severe flow-limiting stenosis in both cerebral arteries. Findings were discussed with Dr. Haider at 8:07 PM via telephone. (All qualitative and quantitative assessments of carotid bifurcationand proximal internal carotid artery stenosis are made referencing thedistal internal carotid artery {NASCET criteria}.) LOCATION: B2 Impression By: Yumiko Pratt M.D.CAT SCAN - CT HEAD/BRAIN W/O CONT 08/05 1642 Report Impression - Status: SIGNED Entered: 08/06/2023 1739 IMPRESSION: There are no acute findings seen is patient's brain on this unenhancedhead CT examination. Senescent changes which appear advanced for thepatient's stated age are noted.Impression By: JostinRLA2 Chidi Lawrence M.D.CAT SCAN - CT ANGIO NECK 08/06 1643 Report Impression - Status: SIGNED Entered: 08/06/20232010 IMPRESSION: High-grade stenosis involving the right M1 segment likely secondary tothrombus.Atherosclerotic disease within both carotid siphons with mildflow-limiting stenosis.Vessel irregularity of the distal intracranial vasculature with areasof severe flow-limiting stenosis in both cerebral arteries. Findings were discussed with Dr. Haider at 8:07 PM via telephone. (All qualitative and quantitative assessments of carotid bifurcationand proximal internal carotid artery stenosis are made referencing thedistal internal carotid artery {NASCET criteria}.) LOCATION: B2 Impression By: Yumiko Pratt M.D. Results: labs reviewed, vital signs reviewed, CT results reviewed, x-ray personally reviewed, current med profile rev'd Diagnosis, Assessment PlanFree text DxA P:Patient is a 68 year old man with a past medical history of hypertension, hyperlipidemia, diabetes, and coronary artery disease who was hospitalized for cholecystitis became altered acutely, leading to a rapid response called this evening. Patient transferred to the iCU and critical care medicine was conuslted. Level of Care: ICU Code Status: Full Code INPUT/OUTPUT LINES/TUBES/DRAINS ASSESSMENT PLAN PULMONARY:1. Atelectasis prevention - Incentive Spirometry q1h as tolerated - OOB and ambulation as tolerated CARDIOVASCULAR / FLUIDS:1. HTN: BP is adequate - Telemetry with blood pressure monitoring -Resume home medications 2. Hyperlipidemia -Resume home medications 3. Coronary Artery Disease -Hx coronary stent placement -Followed by Cardiology GI / PELVIS / NUTRITION 1. Cholecystits-s/p cholecystostomy tube placement - Ceftriaxone/ Flagyl per ID recommendations-GI consulted and following patient 2. Mild protein-calorie malnutrition: On admission - Diet recommendations per registered dietician3. GIB prophylaxis: - Protonix RENAL / ELECTROLYTES / ACID-BASE / :1. Hypernatremia -Most likley secondary to volume depletion - IVF replacemet - Avoid nephrotoxic agents and modify medications renally excreted - Repeat serial BMP -Urine electrlytes/Osmolarity -Monitor UOP and Strict I/O's and monitor electrolytes and replace per protocol INFECTIOUS DISEASE:1. Citrobacter koserii bacteremia -Antibiotics adjusted per Infectious Diseases -Resume current regimen -Supportive care HEMATOLOGY / ONCOLOGY / COAGULATION: 1. Monitor Hgb/Hct; if Hgb < 7 then transfuse according to clinical status and guidelines2. Lovenox for DVT prophylaxis ENDOCRINE1. Diabetes Mellitus -Poorly controlled -Accu checks per protocol if needed -Maintain blood sugar < 180 mg/dl -ISS high scale -Lantus q daily MUSCULOSKELETAL / DERMATOLOGICAL:1. Monitor for skin breakdown - OOB to chair - PT/OT NEUROLOGY / PSYCHIATRY:1. Hx of ischemic cerebral infarct -Statins/ASA/ -PT/OT2. Bilatral MCA stenosis -Management per Neurology-Not candidate for TNK SOCIAL:1. Family Communication - arrived late, but well discuss true acorringly Critical Care Time: 85 minutes This time excludes separately billable procedures or tests Due to a high probability of clinically significant, life threatening deterioration, the patient required my highest level of preparedness to intervene emergently and I personally spent this critical care time directly andpersonally managing the patient. This critical care time included obtaining a history; examining the patient; pulse oximetry; ordering and review of studies; arranging urgent treatment with development of a management plan; evaluation of patient's response to treatment;frequent reassessment; and, discussions with other providers.This critical care time was performed to assess and manage the high probability of imminent, life-threatening deterioration that could result in multi-organ failure. It was exclusive of separately billable procedures and treating other patients Quality: Gen [facility] Crit Care Current MedicationsCurrent medication review:I attest that the foregoing medication list in the medical record is true, accurate, and complete to the best of my knowledge. Advanced Care Plan 65 or OlderDiscussed with: patient, surrogate decis. maker at 0615 [facility] #:[id number] OF REPORTGRVuqknqwoacvp4038-39-57E81:22:00G.[id number] 01AVAvailable for patient rijmRKQOKPUPPSFWIA6766-39-97U31:15:26 [facility] 2023-08-06 21:39:00 [id number]455+ KdBCMGk7qEDK+CAttz/ 8kQNJObt6v6cXDH8v7712-29-38W19:39:308665-7924 [place] [address] PATIENT NAME: MISSY CANALES ADMIT DATE: 08/03/23ACCOUNT NO: [id number] ROOM NO: [facility] AGE: 68 REPORT TYPE: eELECTROCARDIOGRAM REPORT SEX: M ADMITTING PHYSICIAN:Raphael Ly MD ATTENDING PHYSICIAN:Raphael Ly MD Order:[id number] Reason : HR 140S Test Date/Time Stamp:SunAug 06 2023 21:39:15Blood Pressure : / mmHGVent. Rate : 146 BPM Atrial Rate : 146 BPM P-R Int : 130 ms QRS Dur : 092 ms QT Int : 294 ms P-R-T Axes : 066 -21 055 degrees QTc Int : 458 ms Sinus tachycardia with occasional premature ventricular complexesOtherwise normal ECGWhen compared with ECG of 06-AUG-2023 17:37,No changesConfirmed by MD ZENDEJAS GERARD ([id number]) on 08/07/2023 1:16:06 PM Referred By: Raphael Ly Confirmed by:MILEY ZENDEJAS MD at 1316 PATIENT NAME: MISSY CANALES .[id number] e for patient uebkJSAJSPHDVQBIIM0799-84-26P12:16:34 [facility] 2023-08-06 17:37:00 [id number]/ tNkl+pXJo1OiOSM6QUj TKcxv69B5GnNOpQp82745-50-24P11:37:956011-0541 [place] [address] PATIENT NAME: MISSY CANALES ADMIT DATE: 08/03/23ACCOUNT NO: [id number] ROOM NO: [facility] AGE: 68 REPORT TYPE: eELECTROCARDIOGRAM REPORT SEX: M ADMITTING PHYSICIAN:Raphael Ly MD ATTENDING PHYSICIAN:Raphael Ly MD Order:[id number] Reason : , Test Date/Time Stamp:SunAug 06 2023 17:37:19Blood Pressure : / mmHGVent. Rate : 147 BPM Atrial Rate : 147 BPM P-R Int : 124 ms QRS Dur : 078 ms QT Int : 262 ms P-R-T Axes : 074 -38 090 degrees QTc Int : 410 ms Sinus tachycardia with premature ventricular complexes or fusion complexesLeft axis deviationNonspecific ST and T wave abnormalityAbnormal ECGWhen compared with ECG of 06-AUG-2023 15:55,No changesConfirmed by MD ZENDEJAS GERARD ([id number]) on 08/07/2023 1:15:55 PM Referred By: Raphael Ly Confirmed by:MILEY ZENDEJAS MD at 1315 PATIENT NAME: MISSY CANALES .[id number] e for patient lagbWBQOPVIQOITVZW2915-17-96H01:16:14 [facility] 2023-08-06 17:32:00 [id number]/pF ielfqjQDcaXF5sJRKWR w09JpOiHxZ4CwqvoR3869-28-65V44:32:00 [facility] ([facility])Gastroenterology Progress NoteREPORT#:[id number] REPORT STATUS: SignedREPORT INITIALIZATION DATE:08/06/23 TIME: 1731 PATIENT: MISSY CANALES UNIT #: [id number]#: [id number] [address] [birth year] AGE: 68 SEX: M ATTEND: Raphael Ly MDADM AUTHOR: Lisa Cancino MDREPT SERVICE DT/TIME: 08/06/231731* ALL edits or amendments must be made on the electronic/computer document * SubjectiveChief complaint:Elevated LFtsHPI:68 year old man s/p cardiac stents 2 weeks ago who was sent to the hospital withelevated LFTs and possible acute cholecystitis. Pt had a stenet recently placed and was started on DAPT. Pt had labs showing elevated LFTs and was sent here forevaluation. Labs showed leukocytosis 15k. Elevated Tbili 3.7. Dbili 2.8. AST 79,ALT 105 and ALP 225. RUQ U/S showed possible cholecystitis and normal CBD of 4 mm in diatmeter. Pt denies pain. No dark urine or peyton-color stool 08/03; patient feels well. MRCP reviewed. No choledocholithiasis. Fluid collection at the liver could be related secondary to gallbladder perforation. LFTs and white count are down. 08/04: Plan for IR for cholecystostomy tube placement. LFts stable. WBC elevated.Was confused this am but improving. NO pain. No fevers. Added flagyl to his Abx regimen 08/05: NO new complaints. IR for abscess drain and cholecystostomy tube Objective Physical ExamHEENT: EOMICardiovascular: normal heart soundsRespiratory: clear to auscultationAbdomen: non-tenderExtremities: no edema Diagnosis, Assessment PlanProblem List/A P: 1. Elevated LFTs Free Text A P:cholestatic pattern. CBD normal on RuQ U/S MRCP showed no evidence of choledocholithiasis.Large fluid collection within the liver could be secondary to gallbladder perforation.Recommend surgical evaluation again.LFTs are down. White count down.Continue with antibiotics. Add flagyl Plan for IR for cholecystostomy tube and draiange of cystic fluid collection Surgery consultation reviewed. Agree with plan at 1806 RPT #:[id number] OF REPORTPRProgress lqbg9608-43-53E44:32:00G.[id number] for patient xdoeRHPDFKQEINVVYV3334-50-01T80:06:53 [facility] 2023-08-06 16:55:00 [id number]/wxjGloawcoGw 92c2yv43CsTK2X6y/10 qkFglDJoG0DxHRJFS2184-80-71E83:55:00 [facility] ([facility])Infectious Dis. Progress NoteREPORT#:[id number] REPORT STATUS: SignedREPORT INITIALIZATION DATE:08/06/23 TIME: 1654 PATIENT: MISSY CANALES UNIT #: [id number]#: [id number] [address] [birth year] AGE: 68 SEX: M ATTEND: Raphael Ly MDADM AUTHOR: Henrry Heredia MDREPT SERVICE DT/TIME: 08/06/231654* ALL edits or amendments must be made on the electronic/computer document * SubjectiveChief complaint:Gram-negative bacteremia, intra-abdominal abscess, cholecystitisHPI:OPERATING ENGINEER APPRENTICE called this afternoon due to altered mental status. Patient is currently oriented to self only. present at bedside. Review of systems limited. Objective GeneralVS/I O:Vital SignsDate Temp Pulse Resp B/P B/P Mean Pulse Ox UeM027/10-08/05 97.5-99.0 60-124 14-21 118-188/64-82 87.2-108.5 95-100 Last Documented: Result Date Time Pulse Ox 97 08/05 1617 B/P 165/74 08/05 1617 B/P Mean 104.2 08/05 1617 Pulse 123 08/05 1617 Temp 98.8 08/05 1611 O2 Delivery Room air 08/05 1438 Resp 14 08/05 1438 O2 Flow Rate 3 08/05 1428 Vital Signs: Date Time Temp Pulse Resp B/P B/P Pulse O2 O2 Flow FiO2 Mean Ox Delivery Rate 08/05 1617 123 165/74 104.2 97 08/05 1611 98.8 109 98 08/05 1438 104 14 151/82 100 Room air 08/05 1428 104 14 148/75 100 Nasal 3 cannula 08/05 1424 101 15 138/72 100 Nasal 3 cannula 08/05 1414 104 15 146/70 100 Nasal 3 cannula 08/05 1355 102 15 154/74 97 Room air 08/05 1058 97.5 91 16 118/72 87.2 96 Room air 08/05 0830 105 162/78 106.0 08/05 0703 99.0 66 18 188/67 107.2 98 Room air 08/05 0421 98.8 109 18 150/71 97.2 97 Room air 08/05 0421 98.8 109 18 150/71 97.2 97 Room air 08/04 2352 99.0 60 18 184/71 108.5 96 08/04 2004 99.0 124 21 138/64 88.6 95 Room air 24 hour I O ending at 0700: 08/05 0700 08/04 1900 Intake Total 360.00 Output Total Balance 360.00 Intake, IV 10.00 Intake, Oral 350 Number 1 Incontinent Voids PATIENT WEIGHT: Weight (lb): Weight (oz): Weight (kg): 76.364 Physical ExamGeneral appearance: lethargic, awake, no acute distressCardiovascular: tachycardia, no murmurRespiratory: clear to auscultation, aerating well, symmetric expansionAbdomen: non-tender, soft, no distention, percutaneous drains in place in RUQExtremities: no cyanosis, no edemaNeuro/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: altered mental status, awake, mostly non-verbal during the encounterSkin: dry, no rashPsychiatry: unable to evaluate Diagnosis, Assessment PlanFree Text A P: Assessment: Mr. Alcantar is a 68-year-old male with PMH of HTN, DM-II, CAD s/p stent who came to [facility] initially with N/V and abdominal pain. His pain started 2 days prior to presentation. He was also feeling very weak. Work up here showed elevated LFTs, bilirubin, troponin. His US abdomen showed cholelithiasis with distended gallbladder, including material at the gallbladder neck concerning for impacted stone. Patient started on empiric antibiotics and had cultures done with blood culture showing gram negative bacilli. Patient has been febrile and tachycardic here. GI and general surgery are consulted. *Intra-abdominal abscess*Acute cholecystitis*Citrobacter koserii bacteremia*Sepsis (fever and leukocytosis) due to above*DM-2*Acute metabolic encephalopathy -OPERATING ENGINEER APPRENTICE called this afternoon due to patient's altered mental status. -Fever curve has down trended. Patient is afebrile now.-Persistent leukocytosis on today's labs noted. -S/p percutaneous drain placement for the abscess and cholecystostomy tube placement earlier today by IR. Plan: -Blood culture isolate (Citrobacter koserii) is pansensitive. Since it is not Citrobacter freundii, risk of ampC production is low.-Will discontinue meropenem and start patient on ceftriaxone 2 g IV daily + metronidazole 500 mg IV every 12 hours.-Evaluated by neurology service this afternoon for acute mental status changes.-Patient is going for CT head currently. -Overall, antimicrobial treatment would need to be continued till the intra-abdominal fluid collection has been completely (or near completely) drained. -Will follow patient's clinical course and make additional recommendations as appropriate. Discussed with patient's at length at bedside. CURRENT ANTIMICROBIALS:Ceftriaxone + metronidazole, started 08/06/2023 at 1705 RPT #:[id number] OF REPORTPRProgress andb3188-04-62B99:55:00G.[id number] for patient msfnZALDTWNATTIKQL3064-82-88U62:07:00 [facility] 2023-08-06 16:52:00 [id number]+XpMR3i 8K5YQBdu3x8RNSNnOnT csXZzzJ9ndm8TtOky0485-52-06B30:52:00 [facility] ([facility])Neurology Consultation NoteREPORT#:[id number] REPORT STATUS: SignedREPORT INITIALIZATION DATE:08/06/23 TIME: 1651 PATIENT: MISSY CANALES UNIT #: [id number]#: [id number] [address]OB: [birth year] AGE: 68 SEX: M ATTEND: Raphael Ly MDADM AUTHOR: Riley Kamara MDREPT SERVICE DT/TIME: 08/06/231651* ALL edits or amendments must be made on the electronic/computer document * History of Present Illness HPIReason for consult:[place] complaint:AMSPCP:PCP: Kenneth Cummings MD HPI:Patient is 68-year-old male with a history of hypertension, hyperlipidemia, diabetes, and coronary artery disease who was hospitalized for cholecystitis presenting for evaluation of altered mental status. Rapid response called todaydue to decreased responsiveness following gallbladder tube placed this afternoon. Patient's states that he has been declining over the last 48 hours for increased lethargy and impairment in his language. On my arrival the patient does not speak, requires stimulation to maintain awareness, and appears generalized in his weakness. CT head appears to demonstrate evidence of a chronic infarct within the right caudate head and CT angiogram reveals bilateralMCA stenosis worse on the left compared to right as well as left vertebral artery stenosis. No evidence of large vessel occlusion. Patient outside windowfor TNK administration given symptoms present for 24 to 48 hours and no large vessel occlusion amenable to thrombectomy on my review. History - Adult longitudinalPast medical history:Reports: Diabetes mellitus, Hypertension. Additional medical history:HTN, HLD, DM type II and CADAdditional surgical history:recent cardia cathAlcohol use: Denies EtOH useDrug use: Denies recreational drugsSmoking status for patients 13 years old or older: Former SmokerAllergies:Coded Allergies:No Known Allergies (08/03/23) Review of SystemsUnable to obtain due to:Altered mental status Objective GeneralVS:Last Documented: Result Date Time Pulse Ox 97 08/05 1616 B/P 165/74 08/05 1616 B/P Mean 104.2 08/05 1616 Pulse 123 08/05 1616 Temp 37.1 08/05 161 O2 Delivery Room air 08/05 1438 Resp 14 08/05 1438 O2 Flow Rate 3 08/05 1428 PATIENT WEIGHT: Weight (lb): Weight (oz): Weight (kg): 76.364 MedicationsCurrent Home MedicationsASPIRIN 81 MG PO DAILY CLOPIDOGREL (PLAVIX) 75 MG PO DAILY ALLOPURINOL (ZYLOPRIM) 300 MG PO DAILY ATORVASTATIN (LIPITOR) 40 MG PO BEDTIME BRIMONIDINE (ALPHAGAN P 0.1% OPHTH SOLN) 1 DROP EACH EYE Q8H DORZOLAMIDE/TIMOLOL (COSOPT 2%-0.5% OPHTH) 1 DROP EACH EYE BID FINASTERIDE (PROSCAR) 5 MG PO DAILY LATANOPROST (XALATAN 0.005% OPHTH SOLN) 1 DROP EACH EYE BEDTIME LOSARTAN (COZAAR) 25 MG PO DAILY METOPROLOL TARTRATE (LOPRESSOR) 50 MG PO BID TAMSULOSIN ER (FLOMAX) 0.8 MG PO DAILY GLIMEPIRIDE (AMARYL) 2 MG PO C BK DAPAGLIFLOZIN/metFORMIN 5/500 MG (XIGDUO XR 5/500 MG) 1 TAB PO DAILY Active Meds + DC'd Last 24 HrsIopamidol (ISOVUE-300 100ML) 100 ML .STK-MED ONE IV (DC) Ceftriaxone Sodium (ROCEPHIN) 2,000 MG Q24H IV Sodium Chloride (SODIUM CHLORIDE) 20 MLLidocaine HCl (XYLOCAINE) 0 .STK-MED ONE LOCAL (DC) Fentanyl Citrate (SUBLIMAZE) 0 .STK-MED ONE IV (DC) Dextrose/Water (DEXTROSE 10% IN WATER) 125 ML ASDIR PRN IV (CKD) Dextrose/Water (DEXTROSE 10% IN WATER) 250 ML ASDIR PRN IV (CKD) Glucagon (GLUCAGON) 1 MG ASDIR PRN IM Meropenem (MEROPENEM) 500 MG Q6H IV (DC) Sterile Water (WATER FOR INJECTION) 10 MLAtorvastatin Calcium (LIPITOR) 40 MG BEDTIME PO Latanoprost (XALATAN 2.5 ML OPHTH SOLN) 1 DROP BEDTIME EACH EYE Allopurinol (ZYLOPRIM) 300 MG DAILY PO Aspirin (ASPIRIN) 81 MG DAILY PO Clopidogrel Bisulfate (Plavix) 75 MG DAILY PO Finasteride (PROSCAR) 5 MG DAILY PO Losartan Potassium (COZAAR) 25 MG DAILY PO Tamsulosin HCl (Flomax 0.4 mg) 0.8 MG DAILY PO Timolol Maleate (TIMOPTIC 0.5% 5 ML OPHTH SOLN) 1 DROP BID EACH EYE Glimepiride (AmaryL) 2 MG C BK PO Brimonidine Tartrate (Alphagan-P 0.2% 5 ML OPHTH SOLN) 1 DROP Q8HR EACH EYE Metoprolol Tartrate (LOPRESSOR) 50 MG BID PO Insulin Human Lispro (HUMALOG) 0 AC HS SUBQ Dextrose/Sodium Chloride (Dextrose 5% / 0.9% NaCl) 1,000 ML .Q10H IV (DC) Hydralazine HCl (APRESOLINE) 10 MG Q6H PRN PRN IV Ondansetron HCl (ZOFRAN) 4 MG Q4H PRN PRN IV Dietitian nutrition assessmentThe data set between the solid lines has been imported from the dietitian's assessment. BMI Calculated: 26.4Nutrition related diagnosis: Nutrition diagnosis details: Nutrition problem: Nutrition etiology: Nutrition signs and symptoms: Nutrition prescription: Dietitian name: Assessment completed: Physical ExamNeuro comment:GEN: NAD, lethargic, confusedCVS: RRR, no carotid bruitCHEST: No signs of resp distress, on room airABD: Soft, NTTP NEUROMENTAL STATUS: Lethargic, does not follow commands. LANG/SPEECH: Mute CRANIAL NERVES:II: Pupils equal and reactive, no RAPD, no VF deficits, normal fundusIII, IV, : EOM intact, no gaze preference or deviation, no nystagmus.V: normal sensation in V1, V2, and V3 segments bilaterallyVII: no asymmetry, no nasolabial fold flatteningVIII: normal hearing to speechIX, X: normal palatal elevation, no uvular deviationXI: 5/5 head turn and 5/5 shoulder shrug bilaterallyXII: midline tongue protrusion MOTOR:Withdraws to noxious stimuli in the bilateral upper extremities. Bilateral lower extremities demonstrate minimal movement to noxious stimuli. REFLEXES: 2/4 throughout, bilateral flexor planter response, no Genao's, no clonus SENSORY:As noted in motor portion COORD: Does not participate Diagnosis, Assessment Plan Free Text DxA P NotesFree text DxA P notes:Patient is 68-year-old male with a history of hypertension, hyperlipidemia, diabetes, and coronary artery disease who was hospitalized for cholecystitis presenting for evaluation of altered mental status. Suspected ischemic strokeAltered mental statusIntracranial atherosclerosisCholecystitisHyperlipidemiaHypertensionDiabe tesCoronary artery disease-MRI brain without myobcfoc-Yvvyplfgmkyadk-Lnvbtpsct-A1c, lipid panel-Continue aspirin and Euiyjg-Dmfmerlwpndn-Leprtne, B12, folate, TSH, ABG-PT/OT/ST when appropriate at 1656 RPT #:[id number] OF REPORTNHVydqauyratkc2096-89-11L30:52:00G.[id number] 44AVAvailable for patient tpbiIQAXYWLSLMOVDY6972-84-27H78:56:57 [facility] 2023-08-06 15:55:00 [id number]x5Gf kPGnkdlLBIHQrhJEkLZ QGA7V+Pu8HJ9BsXgS6425-97-88J85:55:875241-[address] [address] PATIENT NAME: MISSY CANALES ADMIT DATE: 08/03/23ACCOUNT NO: [id number] ROOM NO: [facility] AGE: 68 REPORT TYPE: eELECTROCARDIOGRAM REPORT SEX: M ADMITTING PHYSICIAN:Raphael Ly MD ATTENDING PHYSICIAN:Raphael Ly MD Order:[id number] Reason : RAPID Test Date/Time Stamp:SunAug 06 2023 15:55:46Blood Pressure : / mmHGVent. Rate : 118 BPM Atrial Rate : 118 BPM P-R Int : 132 ms QRS Dur : 090 ms QT Int : 316 ms P-R-T Axes : 057 -15 057 degrees QTc Int : 442 ms Sinus tachycardia with occasional premature ventricular complexesOtherwise normal ECGWhen compared with ECG of 03-AUG-2023 07:26,No changesConfirmed by MD ZENDEJAS GERARD ([id number]) on 08/07/2023 1:15:45 PM Referred By: Raphael Ly Confirmed by:MILEY ZENDEJAS MD at 1315 PATIENT NAME: MISSY CANALES .[id number] e for patient urdwHQDZJGZUNQCELM4832-23-92T41:16:03 [facility] 2023-08-06 10:54:00 [id number]+ +spE6FfkvxeET8OaYD6 F1gYU9hgSAGSwKJ/18580-99-87Q75:54:00 [facility]Hospital[facility] Progress NoteREPORT#:[id number] REPORT STATUS: SignedREPORT INITIALIZATION DATE:08/06/23 TIME: 105 PATIENT: MISSY CANALES UNIT #: [id number]#: [id number] ROOM/BED: [address]KAW: 53 AGE: 68 SEX: M ATTEND: Raphael Ly MDA AUTHOR: Vitaly Jordan NPREPT SERVICE DT/TIME: 08/06/23 1054* ALL edits or amendments must be made on the electronic/computer document * SubjectiveChief complaint:He is still having some Abd pain, N/v.Confusion.On RA and breathing is stable.BP and HR stable. Review of SystemsConstitutional:Reports: fatigue, generalized weakness. Allergy/Immun:Denies: allergic reaction, hives, rhinorrhea. Respiratory:Denies: HAMMOND (dyspnea on exertion), hemoptysis, pleurisy, pneumonia, productive cough (sputum). Cardiovascular:Denies: chest pain, HAMMOND (dyspnea on exertion), orthopnea, palpitations. GI:Reports: abdominal pain, nausea, vomiting. Denies: anorexia, diarrhea, dysphagia, hematemesis. :Denies: flank pain, hematuria, penile discharge, testicular pain, testicular swelling. Musculoskeletal:Denies: extremity pain, joint pain, lumbar pain, myalgias, neck pain. Heme:Denies: bleeding, bruising. Neuro:Denies: change in LOC, confusion, gait problem, lightheaded, spinning sensation. Objective GeneralVS/I O:Vital Signs: Date Time Temp Pulse Resp B/P B/P Pulse O2 O2 Flow FiO2 Mean Ox Delivery Rate 08/05 0830 105 162/78 106.0 08/05 0703 37.2 66 18 188/67 107.2 98 Room air 08/05 0421 37.1 109 18 150/71 97.2 97 Room air 08/05 0421 37.1 109 18 150/71 97.2 97 Room air 08/04 2352 37.2 60 18 184/71 108.5 96 08/04 2004 37.2 124 21 138/64 88.6 95 Room air 08/04 1147 37.0 86 16 126/70 88.4 97 Room air 24 hour I O ending at 0700: 08/05 0700 08/04 1900 Intake Total 360.00 Output Total Balance 360.00 Intake, IV 10.00 Intake, Oral 350 Number 1 Incontinent Voids PATIENT WEIGHT: Weight (lb): Weight (oz): Weight (kg): 76.364 Medications:Active Meds + DC'd Last 24 HrsMeropenem (MEROPENEM) 500 MG Q6H IV Sterile Water (WATER FOR INJECTION) 10 MLMetronidazole/Sodium Chloride (metroNIDAZOLE 500MG/NS 100ML) 100 ML Q12H IV (DC) Atorvastatin Calcium (LIPITOR) 40 MG BEDTIME PO Latanoprost (XALATAN 2.5 ML OPHTH SOLN) 1 DROP BEDTIME EACH EYE Ceftriaxone Sodium (ROCEPHIN 1000MG VIAL) 1,000 MG Q24H IV (DC) Sodium Chloride (SODIUM CHLORIDE) 10 MLAllopurinol (ZYLOPRIM) 300 MG DAILY PO Aspirin (ASPIRIN) 81 MG DAILY PO Clopidogrel Bisulfate (Plavix) 75 MG DAILY PO Finasteride (PROSCAR) 5 MG DAILY PO Losartan Potassium (COZAAR) 25 MG DAILY PO Tamsulosin HCl (Flomax 0.4 mg) 0.8 MG DAILY PO Timolol Maleate (TIMOPTIC 0.5% 5 ML OPHTH SOLN) 1 DROP BID EACH EYE Glimepiride (AmaryL) 2 MG C BK PO Brimonidine Tartrate (Alphagan-P 0.2% 5 ML OPHTH SOLN) 1 DROP Q8HR EACH EYE Metoprolol Tartrate (LOPRESSOR) 50 MG BID PO Insulin Human Lispro (HUMALOG) 0 AC HS SUBQ Dextrose/Sodium Chloride (Dextrose 5% / 0.9% NaCl) 1,000 ML .Q10H IV (DC) Hydralazine HCl (APRESOLINE) 10 MG Q6H PRN PRN IV Ondansetron HCl (ZOFRAN) 4 MG Q4H PRN PRN IV Dietitian nutrition assessmentThe data set between the solid lines has been imported from the dietitian's assessment. BMI Calculated: 26.4Nutrition related diagnosis: Nutrition diagnosis details: Nutrition problem: Nutrition etiology: Nutrition signs and symptoms: Nutrition prescription: Dietitian name: Assessment completed: Physical ExamGeneral appearance: alert, awakeHead/Eyes: atraumatic, normocephalic, PERRLACardiovascular: normal capillary refill, normal heart sounds, regular rate rhythmRespiratory: aerating well, symmetric expansion, no distressAbdomen: non-tender, normal bowel soundsGenitourinary: no bladder distention, no flank painExtremities: no clubbing, no cyanosisMusculoskeletal: no muscle spasmNeuro/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: alert, normal speech ResultsFindings/Data:Laboratory Tests 08/05 08/04 08/04 08/04 0702 2037 1223 1145 Chemistry POC Glucose (70 - 110 MG/DL) 264 H 256 H 269 H Lactic Acid (0.4 - 1.9 mmol/L) 1.8 Results: labs reviewed, vital signs reviewed, vital signs stable, current med profile rev'd Treatment Prophylaxis Treatment ProphylaxisOxygen: room air Diagnosis, Assessment PlanCode status: full codePlan discussed with: patient, admitting physician, consultants, nurse Free Text DxA P NotesFree text DxA P notes:Assessment and Plan: - Acute Cholangitis/Cholelithiasis with distended gallbladder.- Elevated LFTs and Bilirubin due to Possible Acute Chloangitis.- Elevated Troponin could be demand Ischemia.- Abd pain and N/V.- Confusion- ARELY.- Hyperglycemia.- Sepsis; tachycardia, Bcx Gram neg rods- HX of HTN/DM type II/HLD and CAD s/p stent. Plan: Floor.Will IR for cholecystostomy tube and draiange of cystic fluid collection.Continue IV ABX.GI for elevated Bilirubin and LFTs.Cardiology for recent CAD s/p stent.Pain meds.Antiemetics.Monitor LFTs and CR.IVF.Follow labs and replace as needed.Continue Home meds.Glycemic control, Accu check Q6h.DVT ppxMonitor. Quality: Gen Med Crit Care Current MedicationsCurrent medication review:I attest that the foregoing medication list in the medical record is true, accurate, and complete to the best of my knowledge. Advanced Care Plan 65 or OlderDiscussed with: patient, surrogate decis. maker at 1056 at 5423 RPT #:[id number] OF REPORTPRProgress kuvh5172-10-85G81:54:00G.[id number] for patient iunjGDDKRIWZFLBTQZ0484-50-16L83:57:12 [facility] 2023-08-06 09:50:00 [id number]++PXVHMqBtpiHXuwrVV vDwwpjCHXF4YD422yPm g1L1k8TPdGm6I9kc97407-20-40O26:50:00 [facility] ([facility])General Surgery Progress NoteREPORT#:[id number] REPORT STATUS: SignedREPORT INITIALIZATION DATE:08/06/23 TIME: 949 PATIENT: MISSY CANALES UNIT #: [id number]#: [id number] [address] [birth year] AGE: 68 SEX: M ATTEND: Raphael Ly [facility] AUTHOR: Emmanuel Obando APRNNPREPT SERVICE DT/TIME: 08/06/23 0950* ALL edits or amendments must be made on the electronic/computer document * Emmanuel Obando 08/06/23 0950:SubjectiveChief complaint:Incidental FindingsHPI:Dr Lakhani following Review of Systems Free Text ROS NotesFree Text ROS Notes:Review of systems:As above; otherwise, negative to include neurologic, eyes, ENT, CV, respiratory,GI, musculoskeletal, , skin, psychiatric, hematologic, and allergy. Objective GeneralVS/I O:Last Documented: Result Date Time B/P 162/78 08/05 0830 B/P Mean 106.0 08/05 0830 Pulse 105 08/05 0830 Pulse Ox 98 08/05 0703 O2 Delivery Room air 08/05 0703 Temp 37.2 08/05 0703 Resp 18 08/05 0703 O2 Flow Rate 3 08/03 1999 Vital SignsDate Temp Pulse Resp B/P B/P Mean Pulse Ox VcZ562/10-08/05 37.0-37.2 60-124 16-21 126-188/64-78 88.4-108.5 95-98 24 hour I O ending at 0700: 11 0700 03/10 1900 Intake Total 360.00 Output Total Balance 360.00 Intake, IV 10.00 Intake, Oral 350 Number 1 Incontinent Voids PATIENT WEIGHT: Weight (lb): Weight (oz): Weight (kg): 76.364 Medications:Active Meds + DC'd Last 24 HrsMeropenem (MEROPENEM) 500 MG Q6H IV Sterile Water (WATER FOR INJECTION) 10 MLMetronidazole/Sodium Chloride (metroNIDAZOLE 500MG/NS 100ML) 100 ML Q12H IV (DC) Atorvastatin Calcium (LIPITOR) 40 MG BEDTIME PO Latanoprost (XALATAN 2.5 ML OPHTH SOLN) 1 DROP BEDTIME EACH EYE Ceftriaxone Sodium (ROCEPHIN 1000MG VIAL) 1,000 MG Q24H IV (DC) Sodium Chloride (SODIUM CHLORIDE) 10 MLAllopurinol (ZYLOPRIM) 300 MG DAILY PO Aspirin (ASPIRIN) 81 MG DAILY PO Clopidogrel Bisulfate (Plavix) 75 MG DAILY PO Finasteride (PROSCAR) 5 MG DAILY PO Losartan Potassium (COZAAR) 25 MG DAILY PO Tamsulosin HCl (Flomax 0.4 mg) 0.8 MG DAILY PO Timolol Maleate (TIMOPTIC 0.5% 5 ML OPHTH SOLN) 1 DROP BID EACH EYE Glimepiride (AmaryL) 2 MG C BK PO Brimonidine Tartrate (Alphagan-P 0.2% 5 ML OPHTH SOLN) 1 DROP Q8HR EACH EYE Metoprolol Tartrate (LOPRESSOR) 50 MG BID PO Insulin Human Lispro (HUMALOG) 0 AC HS SUBQ Dextrose/Sodium Chloride (Dextrose 5% / 0.9% NaCl) 1,000 ML .Q10H IV (DC) Hydralazine HCl (APRESOLINE) 10 MG Q6H PRN PRN IV Ondansetron HCl (ZOFRAN) 4 MG Q4H PRN PRN IV Free Text Obj NotesFree Text Obj Notes:JZG7Hreqxnsx appearingUnlabored respirationsScant jaundice noted to scleraAbdomen soft, nontender Diagnosis, Assessment PlanHospital course to date:08/03: Patient with extensive PMH was found in the ED to have elevated LFTs, bilirubin, and troponin. US of the abdomen showed possible cholelithiasis and distended gallbladder. MRCP pending. 08/04: MRCP showed possible mild acute cholecystitis with no choledocholithiasis or biliary ductal dilation. It also showed a complex cystic lesion/fluid collection noted in the hepatic segment of gallbladded fossa. IR has been consulted for evaluation and potential drainage of the lesion and placement of cholecystostomy tube. Patient OK to eat today and then NPO at midnight. 08/05: IR procedureDr. Lakhani consutled and following - will sign off Free Text A P:Elevated TbiliGall Stones* Admit to medicine* US reviewed* GI consult, anticipate MRCP/ERCP* MRCP with complex cystic fluid collection, IR consulted for drainage * Diabetic diet, then NPO at midnight for procedure* Continue antibiotics* Will follow and eval for surgery post GI/Cards recs Quality: Trauma Gen Surg Advanced Care Plan 65 or OlderDiscussed with: patient, surrogate decis. maker Current MedicationsCurrent medication review:I attest that the foregoing medication list in the medical record is true, accurate, and complete to the best of my knowledge. Karl Villagran 08/17/23 2328:Attestations Physician AttestationAgree w/findings plan:I was present with Emmanuel Obando NP during the history and examination. I discussed the case and agree with the findings and plan as documented in Emmanuel Obando's note. Labs reviewed. Pertinent imaging personally reviewed. Discussed plan with other members of the healthcare team. at 0965 at 2338 RPT #:[id number] OF REPORTPRProgress tvwb7119-58-94S70:50:00G.[id number] for patient jxocYNSIBPFCXSYEOM1636-79-30B42:51:50 [facility] 2023-08-05 14:56:00 [id number]P7 FNTDxECNjScuNTly1iN t9uFDVxlOtZqi/xYz1729-34-03Q25:56:00 [facility] ([facility])Infect Dis Consult Note_ BriefREPORT#:[id number] REPORT STATUS: SignedREPORT INITIALIZATION DATE:08/05/23 TIME: 1455 PATIENT: MISSY CANALES UNIT #: [id number]#: [id number] [address] AGE: 68 SEX: M ATTEND: Raphael Ly MDADM AUTHOR: Christiano Silverio MDREPT SERVICE DT/TIME: 08/05/231455* ALL edits or amendments must be made on the electronic/computer document * History of Present Illness HPIRequesting Clinician: Dr. Taylor for consult:Gram negative bacteremiaHPI:68 yo M with PMH of HTN, DMII, CAD s/p stent came to [facility] initially with N/V and abd pain, His pain was started 2 days ago. He is also feeling very weak, He came to ER and his work up showed elevated LFTs, Bilirubin, Troponin. His UA abdomen showed Cholelithiasis with distended gallbladder including material at the gallbladder neck concerning for impacted stone. Patient started on empiric antibiotics and had cultures done with blood culture showing gram negative bacilli. Patient has been febrile and tachycardic while here. GI and general surgery are consulted. Patient's at bedside per patient request. History - Adult longitudinalPast medical history:Reports: Diabetes mellitus, Hypertension. Additional medical history:HTN, HLD, DM type II and CADAdditional surgical history:recent cardia cathAlcohol use: Denies EtOH useDrug use: Denies recreational drugsSmoking status for patients 13 years old or older: Former SmokerAllergies:Coded Allergies:No Known Allergies (08/03/23) Infect. Dis. Consult - BriefFree Text A P:68 yo M with: FeverLeukocytosisGram negative bacteremiaAcute cholecystitisIntraabdominal abscessSepsis secondary to aboveDM2 Even with preliminary Verigene results on positive 08/04/23 blood cultuers, given Citrobacter species ID there will cover for possible resistant forms of Citrobacter - Discontnue empiric ceftriaxone and metronidazole - Start IV meropenem 500mg q6h (for bacteremia coverage and also abscess/anaerobic coverage) - F/u further culture and sensitivity results from blood culture results - F/u GI/surgery recs /need for procedures Thank you for this consult. ID will followCovering [facility] this weekend.Vitals:Last Documented: Result Date Time Pulse Ox 97 08/04 1147 B/P 126/70 08/04 1147 B/P Mean 88.4 08/04 1147 O2 Delivery Room air 08/04 114 Temp 37.0 08/04 114 Pulse 86 08/04 1147 Resp 16 08/04 1147 O2 Flow Rate 3 08/03 1999 General appearance: sleeping comfortablyHead/Eyes: EOMI, normal conjunctiva/scleraCardiovascular: tachycardiaRespiratory: clear to auscultationAbdomen: non-tender, soft, no distentionExtremities: no edemaSkin: no rashPsychiatry: unable to assess affectFindings/Data:08/05/23:WBC 14kSerum Cr 1.0 08/03/23 MRI Abdomen: IMPRESSION: Suspect mild acute cholecystitis. No choledocholithiasis or biliary ductal dilation. 4.6 x 3.6 x 3.0 cm thick-walled complex cystic lesion/fluid collection noted in hepatic segment 5 abutting the gallbladder fossa with suspect minimal communication to the gallbladder lumen. This is concerning for abscess as sequelae of intrahepatic gallbladder perforation. Recommend follow-up CT versus MRI abdomen without and with contrast for further assessment of this area. at 1816 RPT #:[id number] OF REPORTIEIlqhkahersvv8931-76-77N28:56:00G.[id number] 49AVAvailable for patient lzlaSQNAPNQHMJUCNM2397-98-91U14:16:31 [facility] 2023-08-05 13:34:00 [id number] UG2UV0VbdjFkThKyD3l Bd1ReE2TtC6oeAjl19643-16-24W85:34:00 [facility] CenterHospitalist Progress NoteREPORT#:[id number] REPORT STATUS: SignedREPORT INITIALIZATION DATE:08/05/23 TIME: 1333 PATIENT: MISSY CANALES UNIT #: [id number]#: [id number] [address]: [birth year] AGE: 68 SEX: M ATTEND: Raphael Ly MDADM AUTHOR: Violette Rivero DOREPT SERVICE DT/TIME: 08/05/23 1334* ALL edits or amendments must be made on the electronic/computer document * SubjectiveChief complaint:Abd pain, N/vFeverConfusionHPI:This is a 68 year old male with past medical hx of HTN, HLD, DM type II, CAD s/pstent came to ER with N/V and abd pain, His pain was started 2 days ago. He is also feeling very weak, He came to ER and his work up showed elevated LFTs, Bilirubin, Troponin. His UA abdomen showed Cholelithiasis with distended gallbladder including material at the gallbladder neck concerning for impacted stone. Review of SystemsConstitutional:Reports: chills, fever. Respiratory:Denies: SOB, wheezing. Cardiovascular:Denies: chest pain, palpitations. GI:Reports: abdominal pain, nausea, vomiting. :Denies: dysuria. Neuro:Denies: confusion, dizziness. Psych:Denies: agitation, anxiety. Objective GeneralVS/I O:Vital Signs: Date Time Temp Pulse Resp B/P B/P Pulse O2 O2 Flow FiO2 Mean Ox Delivery Rate 08/04 1147 37.0 86 16 126/70 88.4 97 Room air 08/04 0842 100 153/78 103 08/04 0733 37.5 104 14 149/73 98.2 96 Room air 08/04 0538 36.9 110 16 125/70 88.3 94 08/03 2340 38.7 119 18 171/78 109.1 97 08/03 1928 38.1 119 16 164/69 100.5 95 Room air 08/03 1525 37.3 118 17 192/99 130.2 94 Room air PATIENT WEIGHT: Weight (lb): Weight (oz): Weight (kg): 76.364 Medications:Active Meds + DC'd Last 24 HrsAtorvastatin Calcium (LIPITOR) 40 MG BEDTIME PO Latanoprost (XALATAN 2.5 ML OPHTH SOLN) 1 DROP BEDTIME EACH EYE Ceftriaxone Sodium (ROCEPHIN 1000MG VIAL) 1,000 MG Q24H IV Sodium Chloride (SODIUM CHLORIDE) 10 MLAllopurinol (ZYLOPRIM) 300 MG DAILY PO Aspirin (ASPIRIN) 81 MG DAILY PO Clopidogrel Bisulfate (Plavix) 75 MG DAILY PO Finasteride (PROSCAR) 5 MG DAILY PO Losartan Potassium (COZAAR) 25 MG DAILY PO Tamsulosin HCl (Flomax 0.4 mg) 0.8 MG DAILY PO Timolol Maleate (TIMOPTIC 0.5% 5 ML OPHTH SOLN) 1 DROP BID EACH EYE Glimepiride (AmaryL) 2 MG C BK PO Brimonidine Tartrate (Alphagan-P 0.2% 5 ML OPHTH SOLN) 1 DROP Q8HR EACH EYE Metoprolol Tartrate (LOPRESSOR) 50 MG BID PO Insulin Human Lispro (HUMALOG) 0 AC HS SUBQ Dextrose/Sodium Chloride (Dextrose 5% / 0.9% NaCl) 1,000 ML .Q10H IV Hydralazine HCl (APRESOLINE) 10 MG Q6H PRN PRN IV Ondansetron HCl (ZOFRAN) 4 MG Q4H PRN PRN IV Physical ExamHead/Eyes: atraumatic, normocephalic, PERRLACardiovascular: normal heart sounds, regular rate rhythmRespiratory: aerating well, symmetric expansion, no distressAbdomen: non-tender, normal bowel soundsGenitourinary: no bladder distention, no flank painExtremities: no clubbing, no cyanosisMusculoskeletal: no muscle spasmNeuro/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: alert, normal speech ResultsFindings/Data:Laboratory Tests 08/04 08/04 08/04 08/04 08/03 1223 1145 0732 0522 1912Chemistry Sodium (134 - 147 mEq/L) 150 H Potassium (3.4 - 5.0 mEq/L) 3.6 Chloride (100 - 108 mEq/L) 117 H Carbon Dioxide (21 - 33 mEq/l) 19 L Anion Gap (0 - 20) 18 BUN (7 - 25 mg/dL) 16 Creatinine (0.6 - 1.3 mg/dL) 1.0 Glomerular Filtr Rate (70 - 80) 81.0 H Glucose (77 - 141 mg/dL) 309 H POC Glucose (70 - 110 MG/DL) 269 H 282 H 291 H Lactic Acid (0.4 - 1.9 mmol/L) 1.8 Calcium (8.0 - 10.5 mg/dL) 8.8 Phosphorus (2.5 - 4.9 MG/DL) 2.8 Magnesium (1.6 - 2.6 mg/dL) 2.29 Total Bilirubin (0.0 - 1.0 mg/dL) 1.80 H AST (8 - 34 IUnit/L) 94 H ALT (10 - 49 IUnit/L) 88 H Total Alk Phosphatase (20 - 125 199 HIUnit/L) Total Protein (6.4 - 8.2 g/dL) 7.2 Albumin (3.4 - 5.0 g/dL) 2.60 L 08/03 1521 Chemistry POC Glucose (70 - 110 MG/DL) 278 H Laboratory Tests 08/04 0521 Hematology WBC (4.5 - 11.0 x10 3/uL) 14.8 H RBC (4.00 - 5.60 x10 6/uL) 4.16 Hgb (12.5 - 16.9 g/dL) 12.5 Hct (37.5 - 50.7 %) 37.6 MCV (81.0 - 99.0 fL) 90.4 MCH (27.0 - 33.0 pg) 30.0 MCHC (33.0 - 37.0 g/dL) 33.2 RDW (11.5 - 14.5 %) 14.0 Plt Count (150 - 400 x10 3/uL) 153 MPV (7.0 - 9.0 fL) 11.3 H Neut % (Auto) (56.0 - 77.0 %) 76.8 Lymph % (Auto) (14.0 - 32.0 %) 8.9 L Evans % (Auto) (4.8 - 9.0 %) 12.6 H Eos % (Auto) (0.3 - 3.7 %) 0.1 L Baso % (Auto) (0.0 - 2.0 %) 0.2 Neut # (Auto) (2.0 - 7.6 x10 3/uL) 11.33 H Lymph # (Auto) (1.0 - 3.8 x10 3/uL) 1.31 Evans # (Auto) (0.1 - 0.8 x10 3/uL) 1.86 H Eos # (Auto) (0.0 - 0.2 x10 3/uL) 0.01 Baso # (Auto) (0.0 - 0.2 x10 3/uL) 0.03 Abs Immat Gran (auto) (0.00 - 0.03 x10 3/uL) 0.21 H Immature Gran % (0.0 - 2.0 %) 1.4 Nucleated RBC % (0 - 0 %) 0.0 Nucleated RBCs # (Man) (0.0 - 0.1 x10 3/uL) 0.00 Treatment Prophylaxis Treatment ProphylaxisOxygen: room air Diagnosis, Assessment Plan Free Text DxA P NotesFree text DxA P notes:Assessment and Plan: - Acute Cholangitis/Cholelithiasis with distended gallbladder.- Elevated LFTs and Bilirubin due to Possible Acute Chloangitis.- Elevated Troponin could be demand Ischemia.- Abd pain and N/V.- Confusion- ARELY.- Hyperglycemia.- Sepsis; tachycardia, Bcx Gram neg rods- HX of HTN/DM type II/HLD and CAD s/p stent. Plan: floor with TeleIV abxID consultSurgery for choleycystitis.GI for elevated Bilirubin and LFTs.Need MRCP/ERCP.Cardiology for recent CAD s/p stent.Pain meds.Antiemetics.Monitor LFTs and CR.IVF.Follow labs and replace as needed.Continue Home meds.Glycemic control, Accu check Q6h. diabetic dietDVT ppxMonitor. Quality: Gen Med Crit Care Current MedicationsCurrent medication review:I attest that the foregoing medication list in the medical record is true, accurate, and complete to the best of my knowledge. Advanced Care Plan 65 or OlderDiscussed with: patient, surrogate decis. maker at 0249 RPT #:[id number] OF REPORTPRProgress kvyo9768-65-90L17:34:00G.[id number] for patient xfenCOOBHHWVVLNERB3220-70-01B11:49:20 [facility] 2023-08-05 13:31:00 [id number] I+eK4aPQ2dZAU1geYXR fnL4UENVFskDKM66G0247-97-49K07:31:00 [facility] ([facility])Gastroenterology Progress NoteREPORT#:[id number] REPORT STATUS: SignedREPORT INITIALIZATION DATE:08/05/23 TIME: 1330 PATIENT: MISSY CANALES UNIT #: [id number]#: [id number] [address] [birth year] AGE: 68 SEX: M ATTEND: Raphael Ly AUTHOR: Lisa Cancino MDREPT SERVICE DT/TIME: 08/05/23 1331* ALL edits or amendments must be made on the electronic/computer document * SubjectiveChief complaint:Elevated LFtsHPI:68 year old man s/p cardiac stents 2 weeks ago who was sent to the hospital withelevated LFTs and possible acute cholecystitis. Pt had a stenet recently placed and was started on DAPT. Pt had labs showing elevated LFTs and was sent here forevaluation. Labs showed leukocytosis 15k. Elevated Tbili 3.7. Dbili 2.8. AST 79,ALT 105 and ALP 225. RUQ U/S showed possible cholecystitis and normal CBD of 4 mm in diatmeter. Pt denies pain. No dark urine or peyton-color stool 08/03; patient feels well. MRCP reviewed. No choledocholithiasis. Fluid collection at the liver could be related secondary to gallbladder perforation. LFTs and white count are down. 08/04: Plan for IR for cholecystostomy tube placement. LFts stable. WBC elevated.Was confused this am but improving. NO pain. No fevers. Added flagyl to his Abx regimen Objective Physical ExamHEENT: EOMICardiovascular: normal heart soundsRespiratory: clear to auscultationAbdomen: non-tenderExtremities: no edema Diagnosis, Assessment PlanProblem List/A P: 1. Elevated LFTs Free Text A P:cholestatic pattern. CBD normal on RuQ U/S MRCP showed no evidence of choledocholithiasis.Large fluid collection within the liver could be secondary to gallbladder perforation.Recommend surgical evaluation again.LFTs are down. White count down.Continue with antibiotics. Add flagyl Plan for IR for cholecystostomy tube and draiange of cystic fluid collection D/W Dr. Rivero and family at 1434 RPT #:[id number] OF REPORTPRProgress pjtd0037-56-10K09:31:00G.[id number] for patient ingmKOJYZMNJSPUUVO5274-50-74E49:35:13 [facility] 2023-08-05 12:34:00 [id number] UmcvznlIaqQnmmrQYen hAlN4FMLeVBB1RA8t0766-19-57Y65:34:00 [facility] CenterGeneral Surgery Progress NoteREPORT#:[id number] REPORT STATUS: SignedREPORT INITIALIZATION DATE:08/05/23 TIME: 1233 PATIENT: MISSY CANALES UNIT #: [id number]#: [id number] [address] [birth year] AGE: 68 SEX: M ATTEND: Raphael Ly [facility] AUTHOR: Emmanuel Obando APRNNPREPT SERVICE DT/TIME: 08/05/23 1234* ALL edits or amendments must be made on the electronic/computer document * Emmanuel Obando 08/05/23 1234:SubjectiveChief complaint:Incidental FindingsHPI:No events overnight IR consulted for procedure tomorrow Review of SystemsConstitutional:Denies: fever. All systems rev neg: except as marked Free Text ROS NotesFree Text ROS Notes:Review of systems:As above; otherwise, negative to include neurologic, eyes, ENT, CV, respiratory,GI, musculoskeletal, , skin, psychiatric, hematologic, and allergy. Objective GeneralVS/I O:Last Documented: Result Date Time Pulse Ox 97 08/04 1147 B/P 126/70 08/04 1147 B/P Mean 88.4 08/04 1147 O2 Delivery Room air 08/04 1147 Temp 37.0 08/04 1147 Pulse 86 08/04 1147 Resp 16 08/04 1147 O2 Flow Rate 3 08/03 1999 Vital SignsDate Temp Pulse Resp B/P B/P Mean Pulse Ox IrI972/09-08/04 36.9-38.7 86-119 14-18 125-192/69-99 88.3-130.2 94-97 PATIENT WEIGHT: Weight (lb): Weight (oz): Weight (kg): 76.364 Medications:Active Meds + DC'd Last 24 HrsAtorvastatin Calcium (LIPITOR) 40 MG BEDTIME PO Latanoprost (XALATAN 2.5 ML OPHTH SOLN) 1 DROP BEDTIME EACH EYE Ceftriaxone Sodium (ROCEPHIN 1000MG VIAL) 1,000 MG Q24H IV Sodium Chloride (SODIUM CHLORIDE) 10 MLAllopurinol (ZYLOPRIM) 300 MG DAILY PO Aspirin (ASPIRIN) 81 MG DAILY PO Clopidogrel Bisulfate (Plavix) 75 MG DAILY PO Finasteride (PROSCAR) 5 MG DAILY PO Losartan Potassium (COZAAR) 25 MG DAILY PO Tamsulosin HCl (Flomax 0.4 mg) 0.8 MG DAILY PO Timolol Maleate (TIMOPTIC 0.5% 5 ML OPHTH SOLN) 1 DROP BID EACH EYE Glimepiride (AmaryL) 2 MG C BK PO Brimonidine Tartrate (Alphagan-P 0.2% 5 ML OPHTH SOLN) 1 DROP Q8HR EACH EYE Metoprolol Tartrate (LOPRESSOR) 50 MG BID PO Insulin Human Lispro (HUMALOG) 0 AC HS SUBQ Dextrose/Sodium Chloride (Dextrose 5% / 0.9% NaCl) 1,000 ML .Q10H IV Hydralazine HCl (APRESOLINE) 10 MG Q6H PRN PRN IV Ondansetron HCl (ZOFRAN) 4 MG Q4H PRN PRN IV Nutrtion assessment:The data set between the solid lines has been imported from the dietitian's assessment. BMI Calculated: 26.4Nutrition related diagnosis: Nutrition diagnosis details: Nutrition problem: Nutrition etiology: Nutrition signs and symptoms: Nutrition prescription: Dietitian name: Assessment completed: ResultsFindings/Data:Laboratory Tests 08/05/23 05:[Embedded Image Not Available] 08/05/23 05:[Embedded Image Not Available]Laboratory Tests 08/04 08/04 08/04 08/03 08/03 1145 0732 0522 1912 1521 Chemistry Sodium (134 - 147 mEq/L) 150 H Potassium (3.4 - 5.0 mEq/L) 3.6 Chloride (100 - 108 mEq/L) 117 H Carbon Dioxide (21 - 33 mEq/l) 19 L Anion Gap (0 - 20) 18 BUN (7 - 25 mg/dL) 16 Creatinine (0.6 - 1.3 mg/dL) 1.0 Glomerular Filtr Rate (70 - 80) 81.0 H Glucose (77 - 141 mg/dL) 309 H POC Glucose (70 - 110 MG/DL) 269 H 282 H 291 H 278 H Calcium (8.0 - 10.5 mg/dL) 8.8 Phosphorus (2.5 - 4.9 MG/DL) 2.8 Magnesium (1.6 - 2.6 mg/dL) 2.29 Total Bilirubin (0.0 - 1.0 mg/dL) 1.80 H AST (8 - 34 IUnit/L) 94 H ALT (10 - 49 IUnit/L) 88 H Total Alk Phosphatase (20 - 125 IUnit/L) 199 H Total Protein (6.4 - 8.2 g/dL) 7.2 Albumin (3.4 - 5.0 g/dL) 2.60 L Laboratory Tests 08/04 520 Hematology WBC (4.5 - 11.0 x10 3/uL) 14.8 H RBC (4.00 - 5.60 x10 6/uL) 4.16 Hgb (12.5 - 16.9 g/dL) 12.5 Hct (37.5 - 50.7 %) 37.6 MCV (81.0 - 99.0 fL) 90.4 MCH (27.0 - 33.0 pg) 30.0 MCHC (33.0 - 37.0 g/dL) 33.2 RDW (11.5 - 14.5 %) 14.0 Plt Count (150 - 400 x10 3/uL) 153 MPV (7.0 - 9.0 fL) 11.3 H Neut % (Auto) (56.0 - 77.0 %) 76.8 Lymph % (Auto) (14.0 - 32.0 %) 8.9 L Evans % (Auto) (4.8 - 9.0 %) 12.6 H Eos % (Auto) (0.3 - 3.7 %) 0.1 L Baso % (Auto) (0.0 - 2.0 %) 0.2 Neut # (Auto) (2.0 - 7.6 x10 3/uL) 11.33 H Lymph # (Auto) (1.0 - 3.8 x10 3/uL) 1.31 Evans # (Auto) (0.1 - 0.8 x10 3/uL) 1.86 H Eos # (Auto) (0.0 - 0.2 x10 3/uL) 0.01 Baso # (Auto) (0.0 - 0.2 x10 3/uL) 0.03 Abs Immat Gran (auto) (0.00 - 0.03 x10 3/uL) 0.21 H Immature Gran % (0.0 - 2.0 %) 1.4 Nucleated RBC % (0 - 0 %) 0.0 Nucleated RBCs # (Man) (0.0 - 0.1 x10 3/uL) 0.00 Results: labs reviewed, vital signs reviewed, vital signs stable, current med profile rev'd Free Text Obj NotesFree Text Obj Notes:NWQ2Gbjuhcwb appearingUnlabored respirationsScant jaundice noted to scleraAbdomen soft, nontender Diagnosis, Assessment PlanHospital course to date:08/03: Patient with extensive PMH was found in the ED to have elevated LFTs, bilirubin, and troponin. US of the abdomen showed possible cholelithiasis and distended gallbladder. MRCP pending. 08/04: MRCP showed possible mild acute cholecystitis with no choledocholithiasis or biliary ductal dilation. It also showed a complex cystic lesion/fluid collection noted in the hepatic segment of gallbladded fossa. IR has been consulted for evaluation and potential drainage of the lesion and placement of cholecystostomy tube. Patient OK to eat today and then NPO at midnight. 08/05: IR procedure tomorrow. Dr. Lakhani consutled Free Text A P:Elevated TbiliGall Stones* Admit to medicine* US reviewed* GI consult, anticipate MRCP/ERCP* MRCP with complex cystic fluid collection, IR consulted for drainage * Diabetic diet, then NPO at midnight for procedure* Continue antibiotics* Will follow and eval for surgery post GI/Cards recs Quality: Trauma Gen Surg Advanced Care Plan 65 or OlderDiscussed with: patient, surrogate decis. maker Current MedicationsCurrent medication review:I attest that the foregoing medication list in the medical record is true, accurate, and complete to the best of my knowledge. Karl Villagran 08/17/23 2328:Attestations Physician AttestationAgree w/findings plan:I was present with Emmanuel Obando NP during the history and examination. I discussed the case and agree with the findings and plan as documented in Emmanuel Obando's note. Labs reviewed. Pertinent imaging personally reviewed. Discussed plan with other members of the healthcare team. at 1231 at 8665 RPT #:[id number] OF REPORTPRProgress cifs2443-28-60G47:34:00G.[id number] for patient dwpeNKTEYSOCMYVHDL0869-18-04J67:35:59 [facility] 2023-08-05 09:15:00 [id number]/F NQaAytvI78pRFJ7UCzV 1rR1sXW5g40LWhZB21237-25-15T49:15:00 [facility] ([facility])Cardiology Progress NoteREPORT#:[id number] REPORT STATUS: SignedREPORT INITIALIZATION DATE:08/05/23 TIME: 914 PATIENT: MISSY CANALES UNIT #: [id number]#: [id number] [address] [birth year] AGE: 68 SEX: M ATTEND: Raphael Ly MDADM AUTHOR: Soo Green APRNREPT SERVICE DT/TIME: 08/05/23914* ALL edits or amendments must be made on the electronic/computer document * Subjective Free Text Subj NotesFree Text Subj Notes:No chest Pain. No SOB. NAD noted. Objective GeneralVS/I O:Vital Signs: Date Time Temp Pulse Resp B/P B/P Pulse O2 O2 Flow FiO2 Mean Ox Delivery Rate 08/04 0733 99.5 104 14 149/73 98.2 96 Room air 08/04 0538 98.4 110 16 125/70 88.3 94 08/03 2340 101.7 119 18 171/78 109.1 97 08/03 1928 100.6 119 16 164/69 100.5 95 Room air 08/03 1525 99.1 118 17 192/99 130.2 94 Room air 08/03 1116 98.4 78 14 136/83 101.1 95 Room air PATIENT WEIGHT: Weight (lb): Weight (oz): Weight (kg): 76.364 Medications:Active Meds + DC'd Last 24 HrsAtorvastatin Calcium (LIPITOR) 40 MG BEDTIME PO Latanoprost (XALATAN 2.5 ML OPHTH SOLN) 1 DROP BEDTIME EACH EYE Ceftriaxone Sodium (ROCEPHIN 1000MG VIAL) 1,000 MG Q24H IV Sodium Chloride (SODIUM CHLORIDE) 10 MLAllopurinol (ZYLOPRIM) 300 MG DAILY PO Aspirin (ASPIRIN) 81 MG DAILY PO Clopidogrel Bisulfate (Plavix) 75 MG DAILY PO Finasteride (PROSCAR) 5 MG DAILY PO Losartan Potassium (COZAAR) 25 MG DAILY PO Tamsulosin HCl (Flomax 0.4 mg) 0.8 MG DAILY PO Timolol Maleate (TIMOPTIC 0.5% 5 ML OPHTH SOLN) 1 DROP BID EACH EYE Glimepiride (AmaryL) 2 MG C BK PO Brimonidine Tartrate (Alphagan-P 0.2% 5 ML OPHTH SOLN) 1 DROP Q8HR EACH EYE Metoprolol Tartrate (LOPRESSOR) 50 MG BID PO Insulin Human Lispro (HUMALOG) 0 AC HS SUBQ Dextrose/Sodium Chloride (Dextrose 5% / 0.9% NaCl) 1,000 ML .Q10H IV Hydralazine HCl (APRESOLINE) 10 MG Q6H PRN PRN IV Ondansetron HCl (ZOFRAN) 4 MG Q4H PRN PRN IV Physical ExamHead/Eyes: atraumatic, normocephalicENT: moist mucosal membranesNeck: full range of motion, no JVDCardiovascular: CV assessment: regular rate and rhythm, BP pulses = bilaterally, normal heart soundsRespiratory: clear to auscultation, no distressAbdomen: soft, non-tender, normal bowel soundsUpper extremity: UE assessment: normal capillary refill, normal temperatureLower extremity: LE assessment: normal capillary refill, normal temperatureMusculoskeletal: full range of motionNeuro/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: alert, oriented X 3, CN II-XII intactSkin: dry, intact, normal colorPsychiatry: normal affect ResultsFindings/Data:Laboratory Tests 08/04 08/04 08/03 08/03 08/03 0732 0522 1912 1521 1115 Chemistry Sodium (134 - 147 mEq/L) 150 H Potassium (3.4 - 5.0 mEq/L) 3.6 Chloride (100 - 108 mEq/L) 117 H Carbon Dioxide (21 - 33 mEq/l) 19 L Anion Gap (0 - 20) 18 BUN (7 - 25 mg/dL) 16 Creatinine (0.6 - 1.3 mg/dL) 1.0 Glomerular Filtr Rate (70 - 80) 81.0 H Glucose (77 - 141 mg/dL) 309 H POC Glucose (70 - 110 MG/DL) 282 H 291 H 278 H 313 H Calcium (8.0 - 10.5 mg/dL) 8.8 Phosphorus (2.5 - 4.9 MG/DL) 2.8 Magnesium (1.6 - 2.6 mg/dL) 2.29 Total Bilirubin (0.0 - 1.0 mg/dL) 1.80 H AST (8 - 34 IUnit/L) 94 H ALT (10 - 49 IUnit/L) 88 H Total Alk Phosphatase (20 - 125 IUnit/L) 199 H Total Protein (6.4 - 8.2 g/dL) 7.2 Albumin (3.4 - 5.0 g/dL) 2.60 L Laboratory Tests 08/04 0521 Hematology WBC (4.5 - 11.0 x10 3/uL) 14.8 H RBC (4.00 - 5.60 x10 6/uL) 4.16 Hgb (12.5 - 16.9 g/dL) 12.5 Hct (37.5 - 50.7 %) 37.6 MCV (81.0 - 99.0 fL) 90.4 MCH (27.0 - 33.0 pg) 30.0 MCHC (33.0 - 37.0 g/dL) 33.2 RDW (11.5 - 14.5 %) 14.0 Plt Count (150 - 400 x10 3/uL) 153 MPV (7.0 - 9.0 fL) 11.3 H Neut % (Auto) (56.0 - 77.0 %) 76.8 Lymph % (Auto) (14.0 - 32.0 %) 8.9 L Evans % (Auto) (4.8 - 9.0 %) 12.6 H Eos % (Auto) (0.3 - 3.7 %) 0.1 L Baso % (Auto) (0.0 - 2.0 %) 0.2 Neut # (Auto) (2.0 - 7.6 x10 3/uL) 11.33 H Lymph # (Auto) (1.0 - 3.8 x10 3/uL) 1.31 Evans # (Auto) (0.1 - 0.8 x10 3/uL) 1.86 H Eos # (Auto) (0.0 - 0.2 x10 3/uL) 0.01 Baso # (Auto) (0.0 - 0.2 x10 3/uL) 0.03 Abs Immat Gran (auto) (0.00 - 0.03 x10 3/uL) 0.21 H Immature Gran % (0.0 - 2.0 %) 1.4 Nucleated RBC % (0 - 0 %) 0.0 Nucleated RBCs # (Man) (0.0 - 0.1 x10 3/uL) 0.00 Laboratory Tests 08/04 0522 Chemistry Magnesium (1.6 - 2.6 mg/dL) 2.29 Diagnosis, Assessment Plan Free Text DxA P NotesFree Text DxA P Notes:1. Coronary artery disease: Patient reportedly had recent stents, patient's spouse reports PCI on July 03, 2023, continue Plavix and aspirin. Initial troponin was elevated and unclear if this is due to a recent event. Echocardiogram pendingRepeat troponin also elevated however decreasing. Continue telemetry 2. Elevated LFTs: Would require ERCP, GI following, would need to be on dual antiplatelets until we get records from his recent cath and stents. 3. Altered mental status: Patient mental status improving however still slightly confused. MDM per Dr. Zendejas. at 1442 at 1731 RPT #:[id number] OF REPORTPRProgress [id number]:15:00G.[id number] for patient chveZTGOYZFHMTPVGB8134-05-07L20:42:25 [facility] 2023-08-04 14:58:00 [id number] YV7BZQthm06V9ImghWf 02FWwdb5WfK/DHesw7234-52-09N31:58:00 [facility] ([facility])General Surgery Progress NoteREPORT#:[id number] REPORT STATUS: SignedREPORT INITIALIZATION DATE:08/04/23 TIME: 1457 PATIENT: MISSY CANALES UNIT #: [id number]#: [id number] [address] [birth year] AGE: 68 SEX: M ATTEND: Raphael Ly AUTHOR: Ines Baldwin PAREPT SERVICE DT/TIME: 08/04/231457* ALL edits or amendments must be made on the electronic/computer document * Ines Baldwin 08/04/23 1458:SubjectiveChief complaint:Incidental FindingsHPI:Patient reports he continues to have no pain. He tolerated a little bit of breakfast and lunch today. Per his , who is at bedside, his mental status isslightly altered from his baseline. She reports this has been going on for the last day or two. She also reports he had one episode of vomiting a couple of days ago that was clear liquid. Review of Systems Free Text ROS NotesFree Text ROS Notes:Review of systems:As above; otherwise, negative to include neurologic, eyes, ENT, CV, respiratory,GI, musculoskeletal, , skin, psychiatric, hematologic, and allergy. Objective GeneralVS/I O:Last Documented: Result Date Time Pulse Ox 95 08/03 1116 B/P 136/83 08/03 1116 B/P Mean 101.1 08/03 1116 O2 Delivery Room air 08/03 1116 Temp 98.4 08/03 1116 Pulse 78 08/03 1116 Resp 14 08/03 1116 O2 Flow Rate 3 08/03 1999 Vital SignsDate Temp Pulse Resp B/P B/P Mean Pulse Ox MeI531/-08/03 97.9-101.8 78-128 14-20 128-172/70-9 90.9-118.3 90-100 1 24 hour I O ending at 0700: 08/03 0700 08/02 1900 Intake Total Output Total Balance Patient 76.364 kg Weight Weight Stated/Reported Measurement Method PATIENT WEIGHT: Weight (lb): Weight (oz): Weight (kg): 76.364 Medications:Active Meds + DC'd Last 24 HrsAtorvastatin Calcium (LIPITOR) 40 MG BEDTIME PO Latanoprost (XALATAN 2.5 ML OPHTH SOLN) 1 DROP BEDTIME EACH EYE Ceftriaxone Sodium (ROCEPHIN 1000MG VIAL) 1,000 MG Q24H IV Sodium Chloride (SODIUM CHLORIDE) 10 MLAllopurinol (ZYLOPRIM) 300 MG DAILY PO Aspirin (ASPIRIN) 81 MG DAILY PO Clopidogrel Bisulfate (Plavix) 75 MG DAILY PO Finasteride (PROSCAR) 5 MG DAILY PO Losartan Potassium (COZAAR) 25 MG DAILY PO Tamsulosin HCl (Flomax 0.4 mg) 0.8 MG DAILY PO Timolol Maleate (TIMOPTIC 0.5% 5 ML OPHTH SOLN) 1 DROP BID EACH EYE Glimepiride (AmaryL) 2 MG C BK PO Brimonidine Tartrate (Alphagan-P 0.2% 5 ML OPHTH SOLN) 1 DROP Q8HR EACH EYE Metoprolol Tartrate (LOPRESSOR) 50 MG BID PO Aspirin (ASPIRIN) 324 MG STAT STA PO (DC) Clopidogrel Bisulfate (CLOPIDOGREL BISULFATE) 600 MG STAT STA PO (DC) Acetaminophen (TYLENOL) 650 MG ONCE ONE PO (DC) Insulin Human Lispro (HUMALOG) 0 AC HS SUBQ Dextrose/Sodium Chloride (Dextrose 5% / 0.9% NaCl) 1,000 ML .Q10H IV Hydralazine HCl (APRESOLINE) 10 MG Q6H PRN PRN IV Ondansetron HCl (ZOFRAN) 4 MG Q4H PRN PRN IV ResultsFindings/Data:Laboratory Tests 08/04/23 0109:[Embedded Image Not Available]Laboratory Tests 08/03 08/03 08/03 08/03 08/03 1115 0803 0542 0109 0059 Chemistry Sodium (134 - 147 mEq/L) 145 Potassium (3.4 - 5.0 mEq/L) 3.8 Chloride (100 - 108 mEq/L) 111 H Carbon Dioxide (21 - 33 mEq/l) 21 Anion Gap (0 - 20) 16 BUN (7 - 25 mg/dL) 19 Creatinine (0.6 - 1.3 mg/dL) 1.1 Glomerular Filtr Rate (70 - 80) 72.2 Glucose (77 - 141 mg/dL) 268 H POC Glucose (70 - 110 MG/DL) 313 H 286 H 292 H 229 H Calcium (8.0 - 10.5 mg/dL) 9.5 Phosphorus (2.5 - 4.9 MG/DL) 3.2 Magnesium (1.6 - 2.6 mg/dL) 2.36 Total Bilirubin (0.0 - 1.0 mg/dL) 2.30 H AST (8 - 34 IUnit/L) 79 H ALT (10 - 49 IUnit/L) 87 H Total Alk Phosphatase (20 - 125 IUnit/L) 209 H Troponin I High Sens (0 - 54 ng/L) 323 *H Total Protein (6.4 - 8.2 g/dL) 7.6 Albumin (3.4 - 5.0 g/dL) 2.80 L 08/02 1620 Chemistry POC Glucose (70 - 110 MG/DL) 177 H 187 H Laboratory Tests 08/03 0109 Hematology WBC (4.5 - 11.0 x10 3/uL) 13.3 H RBC (4.00 - 5.60 x10 6/uL) 4.19 Hgb (12.5 - 16.9 g/dL) 12.9 Hct (37.5 - 50.7 %) 38.0 MCV (81.0 - 99.0 fL) 90.7 MCH (27.0 - 33.0 pg) 30.8 MCHC (33.0 - 37.0 g/dL) 33.9 RDW (11.5 - 14.5 %) 13.8 Plt Count (150 - 400 x10 3/uL) 132 L MPV (7.0 - 9.0 fL) 10.9 H Neut % (Auto) (56.0 - 77.0 %) 77.9 H Lymph % (Auto) (14.0 - 32.0 %) 8.6 L Evans % (Auto) (4.8 - 9.0 %) 11.8 H Eos % (Auto) (0.3 - 3.7 %) 0.1 L Baso % (Auto) (0.0 - 2.0 %) 0.2 Neut # (Auto) (2.0 - 7.6 x10 3/uL) 10.35 H Lymph # (Auto) (1.0 - 3.8 x10 3/uL) 1.14 Evans # (Auto) (0.1 - 0.8 x10 3/uL) 1.56 H Eos # (Auto) (0.0 - 0.2 x10 3/uL) 0.01 Baso # (Auto) (0.0 - 0.2 x10 3/uL) 0.02 Abs Immat Gran (auto) (0.00 - 0.03 x10 3/uL) 0.18 H Immature Gran % (0.0 - 2.0 %) 1.4 Nucleated RBC % (0 - 0 %) 0.0 Nucleated RBCs # (Man) (0.0 - 0.1 x10 3/uL) 0.00 Radiology data:Recent Impressions:MAGNETIC RESONANCE IMAGING - MRI ABDOMEN W/O CON 08/02 1710 Report Impression - Status: SIGNED Entered: 08/03/2023 1755 IMPRESSION: Suspect mild acute cholecystitis. No choledocholithiasis or biliaryductal dilation. 4.6 x 3.6 x 3.0 cm thick-walled complex cystic lesion/fluid collectionnoted in hepatic segment 5 abutting the gallbladder fossa with suspectminimal communication to the gallbladder lumen. This is concerning forabscess as sequelae of intrahepatic gallbladder perforation. Recommendfollow-up CT versus MRI abdomen without and with contrast for furtherassessment of this area.Impression By: [email or web address] - Alonso Huerta D.O.RADIOLOGY - XR CHEST 1 V 08/02 2208 Report Impression - Status: SIGNED Entered: 08/03/20232236 IMPRESSION: No acute pulmonary process.Impression By: [email or web address] - Olegario Tompkins M.D. Results: labs reviewed, vital signs reviewed, vital signs stable, current med profile rev'd Free Text Obj NotesFree Text Obj Notes:NKG9Cvmpnizc appearingUnlabored respirationsScant jaundice noted to scleraAbdomen soft, nontender Diagnosis, Assessment PlanHospital course to date:08/03: Patient with extensive PMH was found in the ED to have elevated LFTs, bilirubin, and troponin. US of the abdomen showed possible cholelithiasis and distended gallbladder. MRCP pending. 08/04: MRCP showed possible mild acute cholecystitis with no choledocholithiasis or biliary ductal dilation. It also showed a complex cystic lesion/fluid collection noted in the hepatic segment of gallbladded fossa. IR has been consulted for evaluation and potential drainage of the lesion and placement of cholecystostomy tube. Patient OK to eat today and then NPO at midnight. Free Text A P:Elevated TbiliGall Stones* Admit to medicine* US reviewed* GI consult, anticipate MRCP/ERCP* MRCP with complex cystic fluid collection, IR consulted for drainage * Diabetic diet, then NPO at midnight for procedure* Continue antibiotics* Will follow and eval for surgery post GI/Cards recs Quality: Trauma Gen Surg Advanced Care Plan 65 or OlderDiscussed with: patient, surrogate decis. maker Current MedicationsCurrent medication review:I attest that the foregoing medication list in the medical record is true, accurate, and complete to the best of my knowledge. Karl Villagran 08/19/23 0213:Attestations Physician AttestationAgree w/findings plan:I was present with JANEE Clayton during the history and examination. I discussed the case and agree with the findings and plan as documented in Ines Baldwin's note. Labs reviewed. Pertinent imaging personally reviewed. Discussed plan with other members of the healthcare team. at 1746 at 0215 RPT #:[id number] OF REPORTPRProgress iavt5441-02-16M62:58:00G.[id number] for patient fuyfVGUQOSXMMIXDBP2885-80-74B83:47:16 [facility] 2023-08-04 14:12:00 [id number] /JgjHrEPHIUaEBuHGYY v3ohPBkuqzrjK5nzo6652-23-17P46:12:[id number] [place] [address] PATIENT NAME: MISSY CANALES ADMIT DATE: 08/03/23ACCOUNT NO: [id number] ROOM NO: G.C144 AGE: 68 REPORT TYPE: eECHOCARDIOGRAM REPORT SEX: M ADMITTING PHYSICIAN:Raphael Ly MD ATTENDING PHYSICIAN:Raphael Ly MD *[place] [id number]: Rod: [phone] Echocardiogram Patient: Missy Canales WStudy Date: 4BP: 172 / 91URN: [id number]: [id number]#: [id number]: 1955ge: 68Gender: MHeight: 67 in / 170.2 cmWeight: 168 lb / 76.2 kgBMI/BSA: 26.3 kg/m 2 / 1.91 m 2*Ordering Physician: * Miley Zendejas MD *Interpreting Physician: * Miley Zendejas MD*Pbx Technician: * Tomasa Ellison Indications: CAD. Study data: Transthoracic echocardiogram. Procedure: A transthoracicechocardiogram was performed. Image quality was adequate. Complete 2D,complete spectral Doppler, and color Doppler. Location: Bedside. Patientroom number: C 144. Heart rate: 126 bpm. Findings Left ventricle: The cavity size is normal. Wall thickness is normal. Systolicfunction is normal. The estimated ejection fraction is 55-60%. Wall motion isnormal; there are no regional wall motion abnormalities. Grade I diastolicdysfunction.Right ventricle: The cavity size is normal. Systolic function is normal.PATIENT NAME: MISSY CANALES Left atrium: The atrium is mildly dilated.Right atrium: The atrium is normal in size.Aorta:Aortic root: The root is normal-sized.Aortic valve: The valve is structurally normal. The valve is trileaflet.There is no evidence of stenosis. There is no regurgitation.Mitral valve: The valve is structurally normal. There is no evidence ofstenosis. There is mild regurgitation.Tricuspid valve: The valve is structurally normal. There is mildregurgitation.Pulmonic valve: The valve is structurally normal. There is no regurgitation.Pericardium: A small pericardial effusion is identified.Pulmonary arteries: The main pulmonary artery is normal-sized.Systemic veins:Inferior vena cava: The IVC is normal-sized. Measurements Left ventricle Value Ref CHESTER, LAX 4.9 cm 4.2 - 5.8 ESD, LAX 3.5 cm 2.5 - 4.0 FS, LAX 30 % 25 - 43 CHESTER major ax, A2C 8.3 cm --------- IVS, ED 1.0 cm 0.6 - 1.0 PW, ED 1.0 cm 0.6 - 1.0 IVS/PW, ED 1.02 --------- EF 56 % 52 - 72 E', lat debbi, TDI 11.0 cm/sec >=10.0 E/e', lat debbi, TDI 7 <=13 E', med debbi, TDI 8.5 cm/sec >=7.0 E/e', med debbi, TDI 9 --------- E', avg, TDI 9.8 cm/sec --------- E/e', avg, TDI 8 <=14 LVOT Value Ref Diam, S 2.03 cm --------- Area 3.2 cm 2 --------- Peak abel, S 1.04 m/sec --------- Mean abel, S 0.65 m/sec --------- VTI, S 21.6 cm --------- Peak grad, S 4 mm Hg --------- Mean grad, S 2 mm Hg --------- SV 70 ml --------- Qs 7.63 L/min --------- Qs/bsa 4 L/(min-m 2) --------- SV/bsa 36 ml/m 2 --------- Right ventricle Value Ref CHESTER, LAX 2.8 cm --------- Pressure, S 42 mm Hg --------- RVOT Value Ref Peak v, S 1.13 m/sec ---------PATIENT NAME: MISSY CANALES Peak grad, S 5 mm Hg --------- Left atrium Value Ref Vol/bsa, S 40 ml/m 2 16 - 34 Vol/bsa, ES, 1-p A4C 32 ml/m 2 12 - 37 Vol, ES, 2-p 76 ml --------- Vol/bsa, ES, 2-p 40 ml/m 2 16 - 34 Vol/bsa, ES, A/L 34 ml/m 2 16 - 34 AP dim, ES MM 4.7 cm 3.0 - 4.0 LA/Ao root ratio, MM 1.44 --------- Aortic valve Value Ref Leaflet sep, MM 1.68 cm --------- Peak v, S 1.4 m/sec --------- Mean v, S 0.89 m/sec --------- VTI, S 25.2 cm --------- Mean grad, S 4 mm Hg --------- Peak grad, S 8.2 mm Hg --------- LVOT/AV, VTI ratio 0.86 --------- ARIS, VTI 2.76 cm 2 --------- LVOT/AV, Vpeak ratio 0.73 --------- ARIS, Vmax 2.34 cm 2 --------- Mitral valve Value Ref E-septal separation 1.0 cm --------- E-F slope 0.07 m/sec --------- Peak E 0.79 m/sec --------- Peak A 1.29 m/sec --------- Decel time 191 ms --------- PHT 56 ms --------- Peak grad, D 2.5 mm Hg --------- Peak E/A ratio 0.61 --------- MVA, PHT 3.9 cm 2 --------- Tricuspid valve Value Ref TR peak v 2.8 m/sec <=2.8 Peak RV-RA grad, S 32 mm Hg --------- Aortic root Value Ref Root diam, ED MM 3.2 cm --------- Pulmonary artery Value Ref Pressure, S 34.6 mm Hg --------- Systemic veins Value Ref Estimated CVP 10 mm Hg --------- Conclusions Summary: 1. Left ventricle: The cavity size is normal. Wall thickness is normal. Systolic function is normal. The estimated ejection fraction is 55-60%.PATIENT NAME: MISSY CANALES Wall motion is normal; there are no regional wall motion abnormalities. Grade I diastolic dysfunction.2. Right ventricle: The RV pressure during systole is 42 mm Hg.3. Left atrium: The atrium is mildly dilated.4. Mitral valve: There is mild regurgitation.5. Tricuspid valve: There is mild regurgitation.6. Pericardium, extracardiac: A small pericardial effusion is identified.Electronically signed by Miley Zendejas MD08/04/2023 14:12 at 1412 PATIENT NAME: MISSY CANALES :12:00G.[id number] for patient hbvgTURQIZFYIDOWMD6419-88-15D98:12:45 [facility] 2023-08-04 13:42:00 [id number] 5UZxGMKIufCY64Ev1E6 enrVyUYC3JueI9Kus9282-62-45R82:42:00 [facility] Progress NoteREPORT#:[id number] REPORT STATUS: SignedREPORT INITIALIZATION DATE:08/04/23 TIME: 134 PATIENT: MISSY CANALES UNIT #: [id number]#: [id number] [address] AGE: 68 SEX: M ATTEND: Raphael Ly MDA AUTHOR: Lisa Cancino MDREPT SERVICE DT/TIME: 08/04/23 1342* ALL edits or amendments must be made on the electronic/computer document * SubjectiveChief complaint:Elevated LFtsHPI:68 year old man s/p cardiac stents 2 weeks ago who was sent to the hospital withelevated LFTs and possible acute cholecystitis. Pt had a stenet recently placed and was started on DAPT. Pt had labs showing elevated LFTs and was sent here forevaluation. Labs showed leukocytosis 15k. Elevated Tbili 3.7. Dbili 2.8. AST 79,ALT 105 and ALP 225. RUQ U/S showed possible cholecystitis and normal CBD of 4 mm in diatmeter. Pt denies pain. No dark urine or peyton-color stool 08/03; patient feels well. MRCP reviewed. No choledocholithiasis. Fluid collection at the liver could be related secondary to gallbladder perforation. LFTs and white count are down. Objective Physical ExamHEENT: EOMICardiovascular: normal heart soundsRespiratory: clear to auscultationAbdomen: non-tenderExtremities: no edema Diagnosis, Assessment PlanProblem List/A P: 1. Elevated LFTs Free Text A P:cholestatic pattern. CBD normal on RuQ U/S MRCP showed no evidence of choledocholithiasis.Large fluid collection within the liver could be secondary to gallbladder perforation.Recommend surgical evaluation again.LFTs are down. White count down.Continue with antibiotics. Will discuss with surgery at 1343 RPT #:[id number] OF REPORTPRProgress [id number]:42:00G.[id number] for patient wacbCIUJLNSZILKTKN1408-08-82A21:43:50 [facility] 2023-08-04 11:37:00 [id number]/3uudNbL/mwmqJJ DdBy/ewNDmiusF2HFTW xxaS87H5wOmbz7/zR9990-43-05Q62:37:00 [facility]ist Progress NoteREPORT#:[id number] REPORT STATUS: SignedREPORT INITIALIZATION DATE:08/04/23 TIME: 1136 PATIENT: MISSY CANALES UNIT #: [id number]#: [id number] [address] AGE: 68 SEX: M ATTEND: Raphael Ly MDADM AUTHOR: Violette Rivero DOREPT SERVICE DT/TIME: 08/04/23 113* ALL edits or amendments must be made on the electronic/computer document * SubjectiveChief complaint:Abd pain, N/vHPI:This is a 68 year old male with past medical hx of HTN, HLD, DM type II, CAD s/pstent came to ER with N/V and abd pain, His pain was started 2 days ago. He is also feeling very weak, He came to ER and his work up showed elevated LFTs, Bilirubin, Troponin. His UA abdomen showed Cholelithiasis with distended gallbladder including material at the gallbladder neck concerning for impacted stone. Review of SystemsConstitutional:Reports: generalized weakness. Denies: chills, fever. Respiratory:Denies: SOB, wheezing. Cardiovascular:Denies: chest pain, palpitations. GI:Reports: abdominal pain, nausea, vomiting. :Denies: dysuria. Neuro:Reports: confusion. Denies: dizziness. Psych:Denies: agitation, anxiety. Objective GeneralVS/I O:Vital Signs: Date Time Temp Pulse Resp B/P B/P Pulse O2 O2 Flow FiO2 Mean Ox Delivery Rate 08/03 1116 36.9 78 14 136/83 101.1 95 Room air 08/03 0800 36.6 98 16 144/83 102.9 96 Room air 08/03 0534 36.7 100 20 137/73 94.5 100 08/02 2301 116 18 98 08/02 2300 37.3 119 128/72 90.9 100 08/02 2149 38.8 128 20 130/74 92.5 90 Room air 08/02 2010 38.1 117 18 172/91 118.3 93 / 2000 Nasal 3 cannula 08/02 1623 37.6 114 16 153/70 98.1 98 Room air 08/02 1316 36.9 112 16 122/74 90.1 96 Room air / 1230 116 142/63 91 100 03/08 1200 115 136/63 91 99 24 hour I O ending at 0700: 08/03 0700 08/02 1900 Intake Total Output Total Balance Patient 76.364 kg Weight Weight Stated/Reported Measurement Method PATIENT WEIGHT: Weight (lb): Weight (oz): Weight (kg): 76.364 Medications:Active Meds + DC'd Last 24 HrsAtorvastatin Calcium (LIPITOR) 40 MG BEDTIME PO Latanoprost (XALATAN 2.5 ML OPHTH SOLN) 1 DROP BEDTIME EACH EYE Ceftriaxone Sodium (ROCEPHIN 1000MG VIAL) 1,000 MG Q24H IV Sodium Chloride (SODIUM CHLORIDE) 10 MLAllopurinol (ZYLOPRIM) 300 MG DAILY PO Aspirin (ASPIRIN) 81 MG DAILY PO Clopidogrel Bisulfate (Plavix) 75 MG DAILY PO Finasteride (PROSCAR) 5 MG DAILY PO Losartan Potassium (COZAAR) 25 MG DAILY PO Tamsulosin HCl (Flomax 0.4 mg) 0.8 MG DAILY PO Timolol Maleate (TIMOPTIC 0.5% 5 ML OPHTH SOLN) 1 DROP BID EACH EYE Glimepiride (AmaryL) 2 MG C BK PO Brimonidine Tartrate (Alphagan-P 0.2% 5 ML OPHTH SOLN) 1 DROP Q8HR EACH EYE Metoprolol Tartrate (LOPRESSOR) 50 MG BID PO Aspirin (ASPIRIN) 324 MG STAT STA PO (DC) Clopidogrel Bisulfate (CLOPIDOGREL BISULFATE) 600 MG STAT STA PO (DC) Acetaminophen (TYLENOL) 650 MG ONCE ONE PO (DC) Insulin Human Lispro (HUMALOG) 0 AC HS SUBQ Dextrose/Sodium Chloride (Dextrose 5% / 0.9% NaCl) 1,000 ML .Q10H IV Hydralazine HCl (APRESOLINE) 10 MG Q6H PRN PRN IV Ondansetron HCl (ZOFRAN) 4 MG Q4H PRN PRN IV Physical ExamHead/Eyes: atraumatic, normocephalic, PERRLACardiovascular: normal capillary refill, normal heart sounds, regular rate rhythmRespiratory: aerating well, symmetric expansion, no distressAbdomen: non-tender, normal bowel soundsGenitourinary: no bladder distention, no flank painExtremities: no clubbing, no cyanosisMusculoskeletal: no muscle spasmNeuro/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: alert, normal speech ResultsFindings/Data:Laboratory Tests 08/03 08/03 08/03 08/03 08/03 1115 0803 0542 0109 0059 Chemistry Sodium (134 - 147 mEq/L) 145 Potassium (3.4 - 5.0 mEq/L) 3.8 Chloride (100 - 108 mEq/L) 111 H Carbon Dioxide (21 - 33 mEq/l) 21 Anion Gap (0 - 20) 16 BUN (7 - 25 mg/dL) 19 Creatinine (0.6 - 1.3 mg/dL) 1.1 Glomerular Filtr Rate (70 - 80) 72.2 Glucose (77 - 141 mg/dL) 268 H POC Glucose (70 - 110 MG/DL) 313 H 286 H 292 H 229 H Calcium (8.0 - 10.5 mg/dL) 9.5 Phosphorus (2.5 - 4.9 MG/DL) 3.2 Magnesium (1.6 - 2.6 mg/dL) 2.36 Total Bilirubin (0.0 - 1.0 mg/dL) 2.30 H AST (8 - 34 IUnit/L) 79 H ALT (10 - 49 IUnit/L) 87 H Total Alk Phosphatase (20 - 125 IUnit/L) 209 H Troponin I High Sens (0 - 54 ng/L) 323 *H Total Protein (6.4 - 8.2 g/dL) 7.6 Albumin (3.4 - 5.0 g/dL) 2.80 L 08/02 08/02 08/02 08/02 1958 1620 1313 1148 Chemistry POC Glucose (70 - 110 MG/DL) 177 H 187 H 182 H 224 H Laboratory Tests 08/03 0109 Hematology WBC (4.5 - 11.0 x10 3/uL) 13.3 H RBC (4.00 - 5.60 x10 6/uL) 4.19 Hgb (12.5 - 16.9 g/dL) 12.9 Hct (37.5 - 50.7 %) 38.0 MCV (81.0 - 99.0 fL) 90.7 MCH (27.0 - 33.0 pg) 30.8 MCHC (33.0 - 37.0 g/dL) 33.9 RDW (11.5 - 14.5 %) 13.8 Plt Count (150 - 400 x10 3/uL) 132 L MPV (7.0 - 9.0 fL) 10.9 H Neut % (Auto) (56.0 - 77.0 %) 77.9 H Lymph % (Auto) (14.0 - 32.0 %) 8.6 L Evans % (Auto) (4.8 - 9.0 %) 11.8 H Eos % (Auto) (0.3 - 3.7 %) 0.1 L Baso % (Auto) (0.0 - 2.0 %) 0.2 Neut # (Auto) (2.0 - 7.6 x10 3/uL) 10.35 H Lymph # (Auto) (1.0 - 3.8 x10 3/uL) 1.14 Evans # (Auto) (0.1 - 0.8 x10 3/uL) 1.56 H Eos # (Auto) (0.0 - 0.2 x10 3/uL) 0.01 Baso # (Auto) (0.0 - 0.2 x10 3/uL) 0.02 Abs Immat Gran (auto) (0.00 - 0.03 x10 3/uL) 0.18 H Immature Gran % (0.0 - 2.0 %) 1.4 Nucleated RBC % (0 - 0 %) 0.0 Nucleated RBCs # (Man) (0.0 - 0.1 x10 3/uL) 0.00 Radiology data:Recent Impressions:MAGNETIC RESONANCE IMAGING - MRI ABDOMEN W/O CON 08/02 1710 Report Impression - Status: SIGNED Entered: 08/03/2023 1755 IMPRESSION: Suspect mild acute cholecystitis. No choledocholithiasis or biliaryductal dilation. 4.6 x 3.6 x 3.0 cm thick-walled complex cystic lesion/fluid collectionnoted in hepatic segment 5 abutting the gallbladder fossa with suspectminimal communication to the gallbladder lumen. This is concerning forabscess as sequelae of intrahepatic gallbladder perforation. Recommendfollow-up CT versus MRI abdomen without and with contrast for furtherassessment of this area.Impression By: [email or web address] - Alonso Huerta D.O.RADIOLOGY - XR CHEST 1 V 08/02 2208 Report Impression - Status: SIGNED Entered: 08/03/20232236 IMPRESSION: No acute pulmonary process.Impression By: [email or web address] - Olegario Tompkins M.D. Treatment Prophylaxis Treatment ProphylaxisOxygen: room air Diagnosis, Assessment Plan Free Text DxA P NotesFree text DxA P notes:Assessment and Plan: - Acute Cholangitis/Cholelithiasis with distended gallbladder.- Elevated LFTs and Bilirubin due to Possible Acute Chloangitis.- Elevated Troponin could be demand Ischemia.- Abd pain and N/V.- Confusion- ARELY.- Hyperglycemia.- HX of HTN/DM type II/HLD and CAD s/p stent. Plan: floor with Teleserial tropiSurgery eval for possible choleycystitis.GI for elevated Bilirubin and LFTs.Need MRCP/ERCP.Cardiology for recent CAD s/p stent.Pain meds.Antiemetics.Monitor LFTs and CR.IVF.Empirirc IV aBX.Follow labs and replace as needed.Continue Home meds.Glycemic control, Accu check Q6h.DVT ppxMonitor. Quality: Gen Med Crit Care Current MedicationsCurrent medication review:I attest that the foregoing medication list in the medical record is true, accurate, and complete to the best of my knowledge. at 1139 RPT #:[id number] OF REPORTPRProgress owej4532-39-72C57:37:00G.[id number] for patient xmqrPLDYGMWBMKXGTB5515-36-58I99:40:05 [facility] 2023-08-04 06:53:00 [id number]+Kb0FUCHR4oJsDP4 5QoWXskNfE+Hw/fRXUP L8BcOZCdohfTd+kDT8929-45-60N95:53:00 [facility] CenterCard[facility] Progress NoteREPORT#:[id number] REPORT STATUS: SignedREPORT INITIALIZATION DATE:08/04/23 TIME: 652 PATIENT: MISSY CANALES UNIT #: [id number]#: [id number] [address] AGE: 68 SEX: M ATTEND: Raphael Ly MDADM AUTHOR: Soo Green APRNREPT SERVICE DT/TIME: 08/04/23 0653* ALL edits or amendments must be made on the electronic/computer document * Subjective Free Text Subj NotesFree Text Subj Notes:No chest Pain. No SOB. NAD noted. Objective GeneralVS/I O:24 hour I O ending at 0700: 08/03 0700 08/02 1900 Intake Total Output Total Balance Patient 76.364 kg Weight Weight Stated/Reported Measurement Method Vital Signs: Date Time Temp Pulse Resp B/P B/P Pulse O2 O2 Flow FiO2 Mean Ox Delivery Rate 08/03 0534 98.1 100 20 137/73 94.5 100 08/02 2301 116 18 98 03/ 2300 99.1 119 128/72 90.9 100 08/02 2149 101.8 128 20 130/74 92.5 90 Room air 08/02 2009 100.6 117 18 172/91 118.3 93 03/08 2000 Nasal 3 cannula 08/02 1623 99.7 114 16 153/70 98.1 98 Room air 08/02 1316 98.4 112 16 122/74 90.1 96 Room air 08/02 1230 116 142/63 91 100 03/08 1200 115 136/63 91 99 03/08 1100 109 134/65 94 99 03/08 1000 106 124/65 88 99 03/08 0900 106 99/56 74 97 03/08 0830 102 117/63 84 97 /08 0805 97 16 102/59 77 98 03/08 0730 97 111/58 79 97 03/08 0722 99.8 96 15 111/58 75 97 Room air PATIENT WEIGHT: Weight (lb): Weight (oz): Weight (kg): 76.364 Medications:Active Meds + DC'd Last 24 HrsAtorvastatin Calcium (LIPITOR) 40 MG BEDTIME PO Latanoprost (XALATAN 2.5 ML OPHTH SOLN) 1 DROP BEDTIME EACH EYE Ceftriaxone Sodium (ROCEPHIN 1000MG VIAL) 1,000 MG Q24H IV Sodium Chloride (SODIUM CHLORIDE) 10 MLAllopurinol (ZYLOPRIM) 300 MG DAILY PO Aspirin (ASPIRIN) 81 MG DAILY PO Clopidogrel Bisulfate (Plavix) 75 MG DAILY PO Finasteride (PROSCAR) 5 MG DAILY PO Losartan Potassium (COZAAR) 25 MG DAILY PO Tamsulosin HCl (Flomax 0.4 mg) 0.8 MG DAILY PO Timolol Maleate (TIMOPTIC 0.5% 5 ML OPHTH SOLN) 1 DROP BID EACH EYE Glimepiride (AmaryL) 2 MG C BK PO Brimonidine Tartrate (Alphagan-P 0.2% 5 ML OPHTH SOLN) 1 DROP Q8HR EACH EYE Metoprolol Tartrate (LOPRESSOR) 50 MG BID PO Aspirin (ASPIRIN) 324 MG STAT STA PO (DC) Clopidogrel Bisulfate (CLOPIDOGREL BISULFATE) 600 MG STAT STA PO (DC) Acetaminophen (TYLENOL) 650 MG ONCE ONE PO (DC) Insulin Human Lispro (HUMALOG) 0 AC HS SUBQ Dextrose/Sodium Chloride (Dextrose 5% / 0.9% NaCl) 1,000 ML .Q10H IV Hydralazine HCl (APRESOLINE) 10 MG Q6H PRN PRN IV Ondansetron HCl (ZOFRAN) 4 MG Q4H PRN PRN IV Sodium Chloride (SODIUM CHLORIDE 0.9%) 1,000 ML .Q10H IV (CAN) Piperacillin Sod/Tazobactam Sod (ZOSYN 3.375GM) 3.375 GM X1ED STA IV (DC) Sodium Chloride (SODIUM CHLORIDE 0.9% 100 ML) 100 ML Physical ExamGeneral appearance: alert, awake, orientedHead/Eyes: atraumatic, normocephalicENT: moist mucosal membranesNeck: full range of motion, no JVDCardiovascular: CV assessment: regular rate and rhythm, BP pulses = bilaterally, normal heart soundsRespiratory: clear to auscultation, no distressAbdomen: soft, non-tender, normal bowel soundsUpper extremity: UE assessment: normal capillary refill, normal temperatureLower extremity: LE assessment: normal capillary refill, normal temperatureMusculoskeletal: full range of motionNeuro/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: alert, oriented X 3, CN II-XII intactSkin: dry, intact, normal colorPsychiatry: normal affect ResultsFindings/Data:Laboratory Tests 08/03 08/03 08/03 08/02 08/02 0542 0109 0059 1958 1620 Chemistry Sodium (134 - 147 mEq/L) 145 Potassium (3.4 - 5.0 mEq/L) 3.8 Chloride (100 - 108 mEq/L) 111 H Carbon Dioxide (21 - 33 mEq/l) 21 Anion Gap (0 - 20) 16 BUN (7 - 25 mg/dL) 19 Creatinine (0.6 - 1.3 mg/dL) 1.1 Glomerular Filtr Rate (70 - 80) 72.2 Glucose (77 - 141 mg/dL) 268 H POC Glucose (70 - 110 MG/DL) 292 H 229 H 177 H 187 H Calcium (8.0 - 10.5 mg/dL) 9.5 Phosphorus (2.5 - 4.9 MG/DL) 3.2 Magnesium (1.6 - 2.6 mg/dL) 2.36 Total Bilirubin (0.0 - 1.0 mg/dL) 2.30 H AST (8 - 34 IUnit/L) 79 H ALT (10 - 49 IUnit/L) 87 H Total Alk Phosphatase (20 - 125 IUnit/L) 209 H Troponin I High Sens (0 - 54 ng/L) 323 *H Total Protein (6.4 - 8.2 g/dL) 7.6 Albumin (3.4 - 5.0 g/dL) 2.80 L 08/02 08/02 08/02 08/02 1313 1148 0844 0750 Chemistry Sodium (134 - 147 mEq/L) 139 Potassium (3.4 - 5.0 mEq/L) 4.5 Chloride (100 - 108 mEq/L) 104 Carbon Dioxide (21 - 33 mEq/l) 20 L Anion Gap (0 - 20) 20 BUN (7 - 25 mg/dL) 20 Creatinine (0.6 - 1.3 mg/dL) 1.2 Glomerular Filtr Rate (70 - 80) 65.1 L Glucose (77 - 141 mg/dL) 237 H POC Glucose (70 - 110 MG/DL) 182 H 224 H Calcium (8.0 - 10.5 mg/dL) 9.6 Total Bilirubin (0.0 - 1.0 mg/dL) 3.70 H Direct Bilirubin (0.1 - 0.3 MG/DL) 2.80 H Indirect Bilirubin (MG/DL) 0.90 AST (8 - 34 IUnit/L) 79 H ALT (10 - 49 IUnit/L) 105 H Total Alk Phosphatase (20 - 125 IUnit/L) 225 H Troponin I High Sens (0 - 54 ng/L) 330 *H Total Protein (6.4 - 8.2 g/dL) 7.9 Albumin (3.4 - 5.0 g/dL) 3.10 L LDL Cholesterol Measurd (0 - 100 mg/dL) 37.0 Lipase (13 - 57 U/L) 82 H Laboratory Tests 08/03 08/02 0109 0750 Hematology WBC (4.5 - 11.0 x10 3/uL) 13.3 H 15.4 H RBC (4.00 - 5.60 x10 6/uL) 4.19 4.28 Hgb (12.5 - 16.9 g/dL) 12.9 13.0 Hct (37.5 - 50.7 %) 38.0 39.0 MCV (81.0 - 99.0 fL) 90.7 91.1 MCH (27.0 - 33.0 pg) 30.8 30.4 MCHC (33.0 - 37.0 g/dL) 33.9 33.3 RDW (11.5 - 14.5 %) 13.8 13.8 Plt Count (150 - 400 x10 3/uL) 132 L 121 L MPV (7.0 - 9.0 fL) 10.9 H 11.3 H Neut % (Auto) (56.0 - 77.0 %) 77.9 H 80.9 H Lymph % (Auto) (14.0 - 32.0 %) 8.6 L 8.5 L Evans % (Auto) (4.8 - 9.0 %) 11.8 H 10.1 H Eos % (Auto) (0.3 - 3.7 %) 0.1 L 0.0 L Baso % (Auto) (0.0 - 2.0 %) 0.2 0.1 Neut # (Auto) (2.0 - 7.6 x10 3/uL) 10.35 H 12.44 H Lymph # (Auto) (1.0 - 3.8 x10 3/uL) 1.14 1.30 Evans # (Auto) (0.1 - 0.8 x10 3/uL) 1.56 H 1.56 H Eos # (Auto) (0.0 - 0.2 x10 3/uL) 0.01 0.00 Baso # (Auto) (0.0 - 0.2 x10 3/uL) 0.02 0.02 Abs Immat Gran (auto) (0.00 - 0.03 x10 3/uL) 0.18 H 0.06 H Immature Gran % (0.0 - 2.0 %) 1.4 0.4 Nucleated RBC % (0 - 0 %) 0.0 0.0 Nucleated RBCs # (Man) (0.0 - 0.1 x10 3/uL) 0.00 0.00 Laboratory Tests 08/02 0750 Urines Urine Color (YEL/STRAW) SANDRA H Urine Appearance (CLEAR) CLEAR Urine pH (5.0 - 7.0) 5.0 Ur Specific [place] (1.005 - 1.030) 1.020 Urine Protein (NEGATIVE) 2+ H Urine Glucose (UA) (NEGATIVE) 3+ H Urine Ketones (NEGATIVE) 1+ H Urine Blood (NEGATIVE) 1+ H Urine Nitrite (NEGATIVE) NEGATIVE Urine Bilirubin (NEGATIVE) NEGATIVE Urine Urobilinogen (0.2 - 1.0 mg/dL) 4.0 H Ur Leukocyte Esterase (NEGATIVE) NEGATIVE Urine RBC (0 - 3 RBC/HPF) 11-20 Urine WBC (0 - 3 WBC/HPF) 0-3 Ur Squamous Epith Cells (NONE SEEN /HPF) 0-5 Ur Transition Epith Cell (NONE SEEN /HPF) TRACE Ur Renal Epithelial Cell (NONE SEEN /HPF) TRACE H Urine Bacteria (NONE SEEN /HPF) TRACE Hyaline Casts (NONE SEEN /LPF) 0-2 Laboratory Tests 08/03 0109 Chemistry Magnesium (1.6 - 2.6 mg/dL) 2.36 Radiology data:Recent Impressions:ULTRASOUND - US ABDOMEN LTD 08/03 823 Report Impression - Status: SIGNED Entered: 08/03/2023 0833 Impression:Limited exam secondary to bowel gasCholelithiasis is seen within a mildly distended gallbladder includingmaterial at the gallbladder neck concerning for impacted stone. Mildprominence of the gallbladder wall is seen. No pericholecystic freefluid recommend further evaluation with HIDA scan as indicatedThe appearance the liver is nonspecific but may reflect steatosisversus underlying parenchymal diseaseImpression By: [email or web address] - Tigist Brunner M.D.[facility] - MRI ABDOMEN W/O CON 08/02 171 Report Impression - Status: SIGNED Entered: 08/03/2023 1755 IMPRESSION: Suspect mild acute cholecystitis. No choledocholithiasis or biliaryductal dilation. 4.6 x 3.6 x 3.0 cm thick-walled complex cystic lesion/fluid collectionnoted in hepatic segment 5 abutting the gallbladder fossa with suspectminimal communication to the gallbladder lumen. This is concerning forabscess as sequelae of intrahepatic gallbladder perforation. Recommendfollow-up CT versus MRI abdomen without and with contrast for furtherassessment of this area.Impression By: [email or web address] - Alonso Huerta D.O.RADIOLOGY - XR CHEST 1 V 08/02 2208 Report Impression - Status: SIGNED Entered: 08/03/20232236 IMPRESSION: No acute pulmonary process.Impression By: Ivan Tompkins M.D. Diagnosis, Assessment Plan Free Text DxA P NotesFree Text DxA P Notes:1. Coronary artery disease: Patient reportedly had recent stents, patient's spouse reports PCI on July 03, 2023, continue Plavix and aspirin. Initial troponin was elevated and unclear if this is due to a recent event. Echocardiogram pendingRepeat troponin also elevated however decreasing. Continue telemetry 2. Elevated LFTs: Would require ERCP, GI following, would need to be on dual antiplatelets until we get records from his recent cath and stents. 3. Altered mental status: Patient mental status improving however still slightly confused. MDM per Dr. Zendejas. at 1359 at 1425 RPT #:[id number] OF REPORTPRProgress vqfl0627-13-86B05:53:00G.[id number] for patient rzrhOGITEWOWFWYOXE7204-24-90Q63:00:04 [facility] 2023-08-03 20:36:00 [id number]/2LayUD+IN25vt Lz1xFcDw2fpcEBBh6lc V+/6aphwvAgEyT82W0059-29-88Q36:36:00 [facility] CenterCardiology ConsultationREPORT#:[id number] REPORT STATUS: SignedREPORT INITIALIZATION DATE:08/03/23 TIME: 2035 PATIENT: MISSY CANALES UNIT #: [id number]#: [id number] [id number] AGE: 68 SEX: M ATTEND: Raphael Ly AUTHOR: Lisa Daniel MDREPT SERVICE DT/TIME: 08/03/232035* ALL edits or amendments must be made on the electronic/computer document * History of Present Illness HPIReason for consult:Cardiac evaluationPCP:PCP: Kenneth Cummings MD HPI:This is a 68-year-old male with past medical history of coronary artery disease and reported recent stents who was sent here for abnormal LFTs. Patient was seen by GI and general surgery had MRCP and will require ERCP and cardiology wasconsulted. Troponin was elevated and patient denies any chest pain. There is areport of recent stents however patient could not provide much history. Patientdenies any chest pain, shortness of breath or abdominal pain History - Adult longitudinalPast medical history:Reports: Diabetes mellitus, Hypertension. Additional medical history:HTN, HLD, DM type II and CADAdditional surgical history:recent cardia cathAlcohol use: Denies EtOH useDrug use: Denies recreational drugsSmoking status for patients 13 years old or older: Former SmokerAllergies:Coded Allergies:No Known Allergies (08/03/23) Review of SystemsAdditional notes:As per HPI otherwise -12 system point however it is limited as the patient appears to be altered Objective GeneralVS/I O:Vital Signs: Date Time Temp Pulse Resp B/P B/P Pulse O2 O2 Flow FiO2 Mean Ox Delivery Rate 08/02 2009 100.6 117 18 172/91 118.3 93 /08 1623 99.7 114 16 153/70 98.1 98 Room air /08 1316 98.4 112 16 122/74 90.1 96 Room air / 1230 116 142/63 91 100 03/08 1200 115 136/63 91 99 03/08 1100 109 134/65 94 99 03/08 1000 106 124/65 88 99 03/08 0900 106 99/56 74 97 03/08 0830 102 117/63 84 97 03/08 0805 97 16 102/59 77 98 03/08 0730 97 111/58 79 97 03/08 0722 99.8 96 15 111/58 75 97 Room air PATIENT WEIGHT: Weight (lb): Weight (oz): Weight (kg): 76.364 Medications: Medication review General appearance: alert, awake, with normal speech, appears confused however follows commandsHead/Eyes: PERRLAENT: normal noseNeck: no JVDCardiovascular: CV assessment: Tachycardic, normal heart soundsRespiratory: clear to auscultation, no distressAbdomen: softLower extremity: LE assessment: no cyanosis, no edemaSkin: dry, intactPsychiatry: Confused, calm and cooperative Physical ExamGeneral appearance: alert, awake, oriented ResultsFindings/Data:Laboratory Tests 08/02 1620 1313 1148 0844 Chemistry POC Glucose (70 - 110 MG/DL) 177 H 187 H 182 H 224 H LDL Cholesterol Measurd (0 - 100 mg/dL) 37.0 08/02 749 Chemistry Sodium (134 - 147 mEq/L) 139 Potassium (3.4 - 5.0 mEq/L) 4.5 Chloride (100 - 108 mEq/L) 104 Carbon Dioxide (21 - 33 mEq/l) 20 L Anion Gap (0 - 20) 20 BUN (7 - 25 mg/dL) 20 Creatinine (0.6 - 1.3 mg/dL) 1.2 Glomerular Filtr Rate (70 - 80) 65.1 L Glucose (77 - 141 mg/dL) 237 H Calcium (8.0 - 10.5 mg/dL) 9.6 Total Bilirubin (0.0 - 1.0 mg/dL) 3.70 H Direct Bilirubin (0.1 - 0.3 MG/DL) 2.80 H Indirect Bilirubin (MG/DL) 0.90 AST (8 - 34 IUnit/L) 79 H ALT (10 - 49 IUnit/L) 105 H Total Alk Phosphatase (20 - 125 IUnit/L) 225 H Troponin I High Sens (0 - 54 ng/L) 330 *H Total Protein (6.4 - 8.2 g/dL) 7.9 Albumin (3.4 - 5.0 g/dL) 3.10 L Lipase (13 - 57 U/L) 82 H Laboratory Tests 08/02 749 Hematology WBC (4.5 - 11.0 x10 3/uL) 15.4 H RBC (4.00 - 5.60 x10 6/uL) 4.28 Hgb (12.5 - 16.9 g/dL) 13.0 Hct (37.5 - 50.7 %) 39.0 MCV (81.0 - 99.0 fL) 91.1 MCH (27.0 - 33.0 pg) 30.4 MCHC (33.0 - 37.0 g/dL) 33.3 RDW (11.5 - 14.5 %) 13.8 Plt Count (150 - 400 x10 3/uL) 121 L MPV (7.0 - 9.0 fL) 11.3 H Neut % (Auto) (56.0 - 77.0 %) 80.9 H Lymph % (Auto) (14.0 - 32.0 %) 8.5 L Evans % (Auto) (4.8 - 9.0 %) 10.1 H Eos % (Auto) (0.3 - 3.7 %) 0.0 L Baso % (Auto) (0.0 - 2.0 %) 0.1 Neut # (Auto) (2.0 - 7.6 x10 3/uL) 12.44 H Lymph # (Auto) (1.0 - 3.8 x10 3/uL) 1.30 Evans # (Auto) (0.1 - 0.8 x10 3/uL) 1.56 H Eos # (Auto) (0.0 - 0.2 x10 3/uL) 0.00 Baso # (Auto) (0.0 - 0.2 x10 3/uL) 0.02 Abs Immat Gran (auto) (0.00 - 0.03 x10 3/uL) 0.06 H Immature Gran % (0.0 - 2.0 %) 0.4 Nucleated RBC % (0 - 0 %) 0.0 Nucleated RBCs # (Man) (0.0 - 0.1 x10 3/uL) 0.00 Laboratory Tests 08/02 0750 Urines Urine Color (YEL/STRAW) SANDRA H Urine Appearance (CLEAR) CLEAR Urine pH (5.0 - 7.0) 5.0 Ur Specific [place] (1.005 - 1.030) 1.020 Urine Protein (NEGATIVE) 2+ H Urine Glucose (UA) (NEGATIVE) 3+ H Urine Ketones (NEGATIVE) 1+ H Urine Blood (NEGATIVE) 1+ H Urine Nitrite (NEGATIVE) NEGATIVE Urine Bilirubin (NEGATIVE) NEGATIVE Urine Urobilinogen (0.2 - 1.0 mg/dL) 4.0 H Ur Leukocyte Esterase (NEGATIVE) NEGATIVE Urine RBC (0 - 3 RBC/HPF) 11-20 Urine WBC (0 - 3 WBC/HPF) 0-3 Ur Squamous Epith Cells (NONE SEEN /HPF) 0-5 Ur Transition Epith Cell (NONE SEEN /HPF) TRACE Ur Renal Epithelial Cell (NONE SEEN /HPF) TRACE H Urine Bacteria (NONE SEEN /HPF) TRACE Hyaline Casts (NONE SEEN /LPF) 0-2 Radiology Data:Recent Impressions:ULTRASOUND - US ABDOMEN LTD 08/03 823 Report Impression - Status: SIGNED Entered: 08/03/2023 0833 Impression:Limited exam secondary to bowel gasCholelithiasis is seen within a mildly distended gallbladder includingmaterial at the gallbladder neck concerning for impacted stone. Mildprominence of the gallbladder wall is seen. No pericholecystic freefluid recommend further evaluation with HIDA scan as indicatedThe appearance the liver is nonspecific but may reflect steatosisversus underlying parenchymal diseaseImpression By: [email or web address] - Tigist Brunner M.D.[facility] - MRI ABDOMEN W/O CON 08/02 1710 Report Impression - Status: SIGNED Entered: 08/03/2023 1755 IMPRESSION: Suspect mild acute cholecystitis. No choledocholithiasis or biliaryductal dilation. 4.6 x 3.6 x 3.0 cm thick-walled complex cystic lesion/fluid collectionnoted in hepatic segment 5 abutting the gallbladder fossa with suspectminimal communication to the gallbladder lumen. This is concerning forabscess as sequelae of intrahepatic gallbladder perforation. Recommendfollow-up CT versus MRI abdomen without and with contrast for furtherassessment of this area.Impression By: [email or web address] - Alonso Huerta D.O. Diagnosis, Assessment Plan Free Text DxA P NotesFree Text DxA P Notes:1. Coronary artery disease: Patient reportedly had recent stents, he could not provide me with much story, I resumed his aspirin and Plavix I gave both medication dose status. Initial troponin was elevated and unclear if this is due to a recent event. Will get 1 more troponin, and get echocardiogram. 2. Elevated LFTs: Would require ERCP, GI following, would need to be on dual antiplatelets until we get records from his recent cath and stents. 3. Altered mental status: Patient appears to be confused however he is cooperative: Discussed with the nurse and the night nurse straight has been acting like this from the report he got from the day nurse. at 2243 [facility] #:[id number] OF REPORTNYQgkhgzuqezvg9281-45-00Q40:36:00G.[id number] 53AVAvailable for patient qmrpBDSQHDWPAKKOVO0091-93-07H98:43:46 [facility] 2023-08-03 12:02:00 [id number]/G4dLNdmTQDiVpkClnlN JMaB+IeeJPQkjlUgpXf EVUAXQ5azCPMaVAOf9999-20-97U03:02:00 [facility] ([facility])GE Consultation NoteREPORT#:[id number] REPORT STATUS: SignedREPORT INITIALIZATION DATE:08/03/23 TIME: 1202 PATIENT: MISSY CANALES UNIT #: [id number]#: [id number] [address] AGE: 68 SEX: M ATTEND: Raphael Ly MDADM AUTHOR: Lisa Cancino MDREPT SERVICE DT/TIME: 08/03/23 1202* ALL edits or amendments must be made on the electronic/computer document * See AddendumHistory of Present IllnessRequesting clinician: Dominick Ly for consult:elevated LFtsChief complaint:Elevated LFtsPCP:PCP: Kenneth Cummings MD HPI:68 year old man s/p cardiac stents 2 weeks ago who was sent to the hospital withelevated LFTs and possible acute cholecystitis. Pt had a stenet recently placed and was started on DAPT. Pt had labs showing elevated LFTs and was sent here forevaluation. Labs showed leukocytosis 15k. Elevated Tbili 3.7. Dbili 2.8. AST 79,ALT 105 and ALP 225. RUQ U/S showed possible cholecystitis and normal CBD of 4 mm in diatmeter. Pt denies pain. No dark urine or peyton-color stool History - Adult longitudinalAdditional medical history:HTN, HLD, DM type II and CADAdditional surgical history:Stent placementAlcohol use: Denies EtOH useDrug use: Denies recreational drugsSmoking status for patients 13 years old or older: Never SmokerAllergies:Coded Allergies:No Known Allergies (08/03/23) Review of SystemsAll systems rev neg: except as marked Objective Physical ExamVS/I O:Last Documented: Result Date Time Pulse Ox 97 08/02 0900 B/P 99/56 08/02 0900 B/P Mean 74 08/02 09 Pulse 106 08/02 0900 Resp 16 08/02 08 O2 Delivery Room air 08/02 721 Temp 99.8 08/02 721 PATIENT WEIGHT: Weight (lb): Weight (oz): Weight (kg): 76.364 Medications:Active Meds + DC'd Last 24 HrsCeftriaxone Sodium (ROCEPHIN 1000MG VIAL) 1,000 MG Q24H IV Sodium Chloride (SODIUM CHLORIDE) 10 MLInsulin Human Lispro (HUMALOG) 0 AC HS SUBQ Dextrose/Sodium Chloride (Dextrose 5% / 0.9% NaCl) 1,000 ML .Q10H IV Hydralazine HCl (APRESOLINE) 10 MG Q6H PRN PRN IV Ondansetron HCl (ZOFRAN) 4 MG Q4H PRN PRN IV Sodium Chloride (SODIUM CHLORIDE 0.9%) 1,000 ML .Q10H IV (CAN) Piperacillin Sod/Tazobactam Sod (ZOSYN 3.375GM) 3.375 GM X1ED STA IV (DC) Sodium Chloride (SODIUM CHLORIDE 0.9% 100 ML) 100 ML General appearance: alert, awake, orientedHEENT: EOMICardiovascular: normal heart soundsRespiratory: clear to auscultationAbdomen: non-tenderExtremities: no edema Diagnosis, Assessment PlanProblem List/A P: 1. Elevated LFTs Free Text DxA P NotesFree Text DxA P Notes:cholestatic pattern. CBD normal on RuQ U/S recommend MRCP Would likely need an ERCP based on MRCP results and stent placement without sphincterotomy given his duasl anti-PLT intake. at 1339 Addendum 1: 08/03/23 1341 by Lisa Cancino MD Will need cardioloft clearance given elevated trop and recent cardiac event at 1342 RPT #:[id number] OF REPORTKSAffrutalbptn8341-89-80E92:02:00G.[id number] 93AVAvailable for patient jvaiDMAQYAHHUERGZI8546-64-05R06:39:41 [facility] 2023-08-03 10:24:00 [id number] Rt9vpMySBLsxpvt7kcm 8hUplUH/13G1ufqsi1250-58-16T58:24:00 [facility] History PhysicalREPORT#:[id number] REPORT STATUS: SignedREPORT INITIALIZATION DATE:08/03/23 TIME: 1024 PATIENT: MISSY CANALES UNIT #: [id number]#: [id number] [address] AGE: 68 SEX: M ATTEND: Raphael Ly MDADM AUTHOR: Vitaly Jordan NPREPT SERVICE DT/TIME: 08/03/23 1024* ALL edits or amendments must be made on the electronic/computer document * History of Present Illness HPIChief complaint:Abd pain, N/vPCP:PCP: Kenneth Cummings MD HPI:This is a 68 year old male with past medical hx of HTN, HLD, DM type II, CAD s/pstent came to ER with N/V and abd pain, His pain was started 2 days ago. He is also feeling very weak, He came to ER and his work up showed elevated LFTs, Bilirubin, Troponin. His UA abdomen showed Cholelithiasis with distended gallbladder including material at the gallbladder neck concerning for impacted stone. HistoryAdditional medical history:HTN, HLD, DM type II and CADAdditional surgical history:Stent placementAlcohol use: Denies EtOH useDrug use: Denies recreational drugsSmoking status for patients 13 years old or older: Never Smoker Medication/Allergy-Vaccine HxMedications:Current Hospital Medications:Anti-Infective Agents Sig/Geoffrey Start time Last Medication Dose Route Stop Time Status Admin Piperacillin Sod/ 3.375 GM X1ED STA 08/02 1001 AC Tazobactam Sod IV 08/02 1030 (ZOSYN 3.375GM) Sodium Chloride 100 ML (SODIUM CHLORIDE 0.9% 100 ML) Allergies:Coded Allergies:No Known Allergies (08/03/23) Review of SystemsConstitutional:fatigue, generalized weakness. Allergy/Immun:Denies: allergic reaction, hives, rhinorrhea. Respiratory:Denies: HAMMOND (dyspnea on exertion), non productive cough, pleuritic pain, pneumonia, SOB. Cardiovascular:Denies: chest pain, HAMMOND (dyspnea on exertion), edema, orthopnea. GI:Reports: abdominal pain, nausea. Denies: constipation, diarrhea, hematemesis, hematochezia. :Denies: flank pain, hematuria, penile discharge, testicular pain. Musculoskeletal:Denies: extremity pain, joint pain, myalgias, neck pain. Endocrine:Denies: heat intolerance, polydipsia, weight gain. Neuro:Denies: change in LOC, dizziness, gait problem, lightheaded, slurred speech. Psych:Denies: anxiety, confusion, homicidal ideation, stress. Objective GeneralVS/I O:Vital Signs: Date Time Temp Pulse Resp B/P B/P Pulse O2 O2 Flow FiO2 Mean Ox Delivery Rate 08/02 0900 106 99/56 74 97 08/02 0830 102 117/63 84 97 08/02 0805 97 16 102/59 77 98 08/02 0730 97 111/58 79 97 08/02 0722 37.7 96 15 111/58 75 97 Room air PATIENT WEIGHT: Weight (lb): Weight (oz): Weight (kg): 76.364 Medications:Active Meds + DC'd Last 24 HrsPiperacillin Sod/Tazobactam Sod (ZOSYN 3.375GM) 3.375 GM X1ED STA IV Sodium Chloride (SODIUM CHLORIDE 0.9% 100 ML) 100 ML Physical ExamGeneral appearance: alert, awakeHead/Eyes: atraumatic, normocephalic, PERRLACardiovascular: normal capillary refill, normal heart sounds, regular rate rhythmRespiratory: aerating well, symmetric expansion, no distressAbdomen: non-tender, normal bowel soundsGenitourinary: no bladder distention, no flank painExtremities: no clubbing, no cyanosisMusculoskeletal: no muscle spasmNeuro/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: alert, oriented X 3, CNII-XII intact ResultsFindings/Data:Laboratory Tests 08/02 08/02 0844 0750 Chemistry Sodium (134 - 147 mEq/L) 139 Potassium (3.4 - 5.0 mEq/L) 4.5 Chloride (100 - 108 mEq/L) 104 Carbon Dioxide (21 - 33 mEq/l) 20 L Anion Gap (0 - 20) 20 BUN (7 - 25 mg/dL) 20 Creatinine (0.6 - 1.3 mg/dL) 1.2 Glomerular Filtr Rate (70 - 80) 65.1 L Glucose (77 - 141 mg/dL) 237 H Calcium (8.0 - 10.5 mg/dL) 9.6 Total Bilirubin (0.0 - 1.0 mg/dL) 3.70 H Direct Bilirubin (0.1 - 0.3 MG/DL) 2.80 H Indirect Bilirubin (MG/DL) 0.90 AST (8 - 34 IUnit/L) 79 H ALT (10 - 49 IUnit/L) 105 H Total Alk Phosphatase (20 - 125 IUnit/L) 225 H Troponin I High Sens (0 - 54 ng/L) 330 *H Total Protein (6.4 - 8.2 g/dL) 7.9 Albumin (3.4 - 5.0 g/dL) 3.10 L LDL Cholesterol Measurd (0 - 100 mg/dL) 37.0 Lipase (13 - 57 U/L) 82 H Laboratory Tests 08/02 0750 Hematology WBC (4.5 - 11.0 x10 3/uL) 15.4 H RBC (4.00 - 5.60 x10 6/uL) 4.28 Hgb (12.5 - 16.9 g/dL) 13.0 Hct (37.5 - 50.7 %) 39.0 MCV (81.0 - 99.0 fL) 91.1 MCH (27.0 - 33.0 pg) 30.4 MCHC (33.0 - 37.0 g/dL) 33.3 RDW (11.5 - 14.5 %) 13.8 Plt Count (150 - 400 x10 3/uL) 121 L MPV (7.0 - 9.0 fL) 11.3 H Neut % (Auto) (56.0 - 77.0 %) 80.9 H Lymph % (Auto) (14.0 - 32.0 %) 8.5 L Evans % (Auto) (4.8 - 9.0 %) 10.1 H Eos % (Auto) (0.3 - 3.7 %) 0.0 L Baso % (Auto) (0.0 - 2.0 %) 0.1 Neut # (Auto) (2.0 - 7.6 x10 3/uL) 12.44 H Lymph # (Auto) (1.0 - 3.8 x10 3/uL) 1.30 Evans # (Auto) (0.1 - 0.8 x10 3/uL) 1.56 H Eos # (Auto) (0.0 - 0.2 x10 3/uL) 0.00 Baso # (Auto) (0.0 - 0.2 x10 3/uL) 0.02 Abs Immat Gran (auto) (0.00 - 0.03 x10 3/uL) 0.06 H Immature Gran % (0.0 - 2.0 %) 0.4 Nucleated RBC % (0 - 0 %) 0.0 Nucleated RBCs # (Man) (0.0 - 0.1 x10 3/uL) 0.00 Laboratory Tests 08/02 0750 Urines Urine Color (YEL/STRAW) SANDRA H Urine Appearance (CLEAR) CLEAR Urine pH (5.0 - 7.0) 5.0 Ur Specific [place] (1.005 - 1.030) 1.020 Urine Protein (NEGATIVE) 2+ H Urine Glucose (UA) (NEGATIVE) 3+ H Urine Ketones (NEGATIVE) 1+ H Urine Blood (NEGATIVE) 1+ H Urine Nitrite (NEGATIVE) NEGATIVE Urine Bilirubin (NEGATIVE) NEGATIVE Urine Urobilinogen (0.2 - 1.0 mg/dL) 4.0 H Ur Leukocyte Esterase (NEGATIVE) NEGATIVE Urine RBC (0 - 3 RBC/HPF) 11-20 Urine WBC (0 - 3 WBC/HPF) 0-3 Ur Squamous Epith Cells (NONE SEEN /HPF) 0-5 Ur Transition Epith Cell (NONE SEEN /HPF) TRACE Ur Renal Epithelial Cell (NONE SEEN /HPF) TRACE H Urine Bacteria (NONE SEEN /HPF) TRACE Hyaline Casts (NONE SEEN /LPF) 0-2 Radiology data:Recent Impressions:ULTRASOUND - US ABDOMEN LTD 08/02 08 Report Impression - Status: SIGNED Entered: 08/03/2023 0833 Impression:Limited exam secondary to bowel gasCholelithiasis is seen within a mildly distended gallbladder includingmaterial at the gallbladder neck concerning for impacted stone. Mildprominence of the gallbladder wall is seen. No pericholecystic freefluid recommend further evaluation with HIDA scan as indicatedThe appearance the liver is nonspecific but may reflect steatosisversus underlying parenchymal diseaseImpression By: [email or web address] - Tigist Brunner M.D. Results: labs reviewed, vital signs reviewed, vital signs stable, x-ray personally reviewed, current med profile rev'd Treatment Prophylaxis Treatment ProphylaxisOxygen: room air Diagnosis, Assessment PlanPlan discussed with: patient, admitting physician, consultants, nurse Code Status/Resusc. DiscussionCode status: full code Free Text DxA P NotesFree Text DxA P Notes:Assessment and Plan: - Acute Cholangitis/Cholelithiasis with distended gallbladder.- Elevated LFTs and Bilirubin due to Possible Acute Chloangitis.- Elevated Troponin could be demand Ischemia.- Abd pain and N/V.- ARELY.- Hyperglycemia.- HX of HTN/DM type II/HLD and CAD s/p stent. Plan: Floor.Surgery eval for possible choleycystitis.GI for elevated Bilirubin and LFTs.Need MRCP/ERCP.Cardiology for recent CAD s/p stent.Pain meds.Antiemetics.Monitor LFTs and CR.IVF.Empirirc IV aBX.Follow labs and replace as needed.Continue Home meds.Glycemic control, Accu check Q6h.Monitor. at 1031 at 3817 RPT #:[id number] OF REPORTHPHistory and physical schavvrtbvf4743-95-44C92:24:00G.[id number] e for patient iedzIDYLUDQFECUHZK9794-26-25V91:32:18 HC ACL 2023-08-03 10:10:00 [id number]/9jj+bBj+XCFp DXUnPBLQ+nmPZI+PCb3 /0nj+DrofP2bjLpme9122-96-05Y46:10:00 [facility] ([facility])General Surgery Consult NoteREPORT#:[id number] REPORT STATUS: SignedREPORT INITIALIZATION DATE:08/03/23 TIME: 1010 PATIENT: MISSY CANALES UNIT #: [id number]#: [id number] [address] [birth year] AGE: 68 SEX: M ATTEND: Raphael Ly MDA AUTHOR: Emmanuel Obando APRNNPREPT SERVICE DT/TIME: 08/03/23 1010* ALL edits or amendments must be made on the electronic/computer document * Emmanuel Obando 08/03/23 1010:History of Present IllnessChief complaint:Incidental FindingsHPI:Recent cardiac cath, noted stones and changs to labs prompted ED visit. Denies nausea vomiting or abdominal pain. Compliant with Plavix History - Adult longitudinalSmoking status for patients 13 years old or older: Never SmokerAllergies:Coded Allergies:No Known Allergies (08/03/23) Review of SystemsAll systems rev neg: except as marked Objective Physical ExamVS/I OLast Documented: Result Date Time Pulse Ox 97 08/02 0900 B/P 99/56 08/02 0900 B/P Mean 74 08/02 0900 Pulse 106 /08 0900 Resp 16 08/02 0805 O2 Delivery Room air 08/02 07 Temp 37.7 08/02 0722 Vital Signs Date Temp Pulse Resp B/P B/P Mean Pulse Ox FiO2 08/02 37.7 96-106 15-16 99-117/56-63 74-84 97-98 PATIENT WEIGHT: Weight (lb): Weight (oz): Weight (kg): 76.364 ResultsFindings/Data:Laboratory Tests: 08/02 08/02 0844 0750 Chemistry Sodium (134 - 147 mEq/L) 139 Potassium (3.4 - 5.0 mEq/L) 4.5 Chloride (100 - 108 mEq/L) 104 Carbon Dioxide (21 - 33 mEq/l) 20 L Anion Gap (0 - 20) 20 BUN (7 - 25 mg/dL) 20 Creatinine (0.6 - 1.3 mg/dL) 1.2 Glomerular Filtr Rate (70 - 80) 65.1 L Glucose (77 - 141 mg/dL) 237 H Calcium (8.0 - 10.5 mg/dL) 9.6 Total Bilirubin (0.0 - 1.0 mg/dL) 3.70 H Direct Bilirubin (0.1 - 0.3 MG/DL) 2.80 H Indirect Bilirubin (MG/DL) 0.90 AST (8 - 34 IUnit/L) 79 H ALT (10 - 49 IUnit/L) 105 H Total Alk Phosphatase (20 - 125 IUnit/L) 225 H Troponin I High Sens (0 - 54 ng/L) 330 *H Total Protein (6.4 - 8.2 g/dL) 7.9 Albumin (3.4 - 5.0 g/dL) 3.10 L LDL Cholesterol Measurd (0 - 100 mg/dL) 37.0 Lipase (13 - 57 U/L) 82 H Hematology WBC (4.5 - 11.0 x10 3/uL) 15.4 H RBC (4.00 - 5.60 x10 6/uL) 4.28 Hgb (12.5 - 16.9 g/dL) 13.0 Hct (37.5 - 50.7 %) 39.0 MCV (81.0 - 99.0 fL) 91.1 MCH (27.0 - 33.0 pg) 30.4 MCHC (33.0 - 37.0 g/dL) 33.3 RDW (11.5 - 14.5 %) 13.8 Plt Count (150 - 400 x10 3/uL) 121 L MPV (7.0 - 9.0 fL) 11.3 H Neut % (Auto) (56.0 - 77.0 %) 80.9 H Lymph % (Auto) (14.0 - 32.0 %) 8.5 L Evans % (Auto) (4.8 - 9.0 %) 10.1 H Eos % (Auto) (0.3 - 3.7 %) 0.0 L Baso % (Auto) (0.0 - 2.0 %) 0.1 Neut # (Auto) (2.0 - 7.6 x10 3/uL) 12.44 H Lymph # (Auto) (1.0 - 3.8 x10 3/uL) 1.30 Evans # (Auto) (0.1 - 0.8 x10 3/uL) 1.56 H Eos # (Auto) (0.0 - 0.2 x10 3/uL) 0.00 Baso # (Auto) (0.0 - 0.2 x10 3/uL) 0.02 Abs Immat Gran (auto) (0.00 - 0.03 x10 3/uL) 0.06 H Immature Gran % (0.0 - 2.0 %) 0.4 Nucleated RBC % (0 - 0 %) 0.0 Nucleated RBCs # (Man) (0.0 - 0.1 x10 3/uL) 0.00 Urines Urine Color (YEL/STRAW) SANDRA H Urine Appearance (CLEAR) CLEAR Urine pH (5.0 - 7.0) 5.0 Ur Specific [place] (1.005 - 1.030) 1.020 Urine Protein (NEGATIVE) 2+ H Urine Glucose (UA) (NEGATIVE) 3+ H Urine Ketones (NEGATIVE) 1+ H Urine Blood (NEGATIVE) 1+ H Urine Nitrite (NEGATIVE) NEGATIVE Urine Bilirubin (NEGATIVE) NEGATIVE Urine Urobilinogen (0.2 - 1.0 mg/dL) 4.0 H Ur Leukocyte Esterase (NEGATIVE) NEGATIVE Urine RBC (0 - 3 RBC/HPF) 11-20 Urine WBC (0 - 3 WBC/HPF) 0-3 Ur Squamous Epith Cells (NONE SEEN /HPF) 0-5 Ur Transition Epith Cell (NONE SEEN /HPF) TRACE Ur Renal Epithelial Cell (NONE SEEN /HPF) TRACE H Urine Bacteria (NONE SEEN /HPF) TRACE Hyaline Casts (NONE SEEN /LPF) 0-2 Recent Impressions:ULTRASOUND - US ABDOMEN LTD 08/03 823 Report Impression - Status: SIGNED Entered: 08/03/2023 0025 Impression:Limited exam secondary to bowel gasCholelithiasis is seen within a mildly distended gallbladder includingmaterial at the gallbladder neck concerning for impacted stone. Mildprominence of the gallbladder wall is seen. No pericholecystic freefluid recommend further evaluation with HIDA scan as indicatedThe appearance the liver is nonspecific but may reflect steatosisversus underlying parenchymal diseaseImpression By: [email or web address] Chidi Brunner M.D. Results: labs reviewed, vital signs reviewed, vital signs stable, current med profile rev'd Free Text Obj NotesFree Text Obj Notes:[id number] appearingUnlabored respirationsScant jaundice noted to scleraAbdomen soft, nontender Diagnosis, Assessment Plan Free Text DxA P NotesFree Text DxA P Notes:Elevated TbiliGall Stones* Admit to medicine* Us reviewed* GI consult, anticipate MRCP/ERCP* Will follow and eval for surgery post GI/Cards recs Quality: Trauma Gen Surg Current MedicationsCurrent medication review:I attest that the foregoing medication list in the medical record is true, accurate, and complete to the best of my knowledge. Karl Villagran 08/22/23 0656:Attestations Physician AttestationAgree w/findings plan:I was present with Emmanuel Obando NP during the history and examination. I discussed the case and agree with the findings and plan as documented in Emmanuel Obando's note. Labs reviewed. Pertinent imaging personally reviewed. Discussed plan with other members of the healthcare team. at 1025 at 0658 RPT #:[id number] OF [id number]:10:00G.[id number] 41AVAvailable for patient [id number]:25:56 [facility] 2023-08-03 07:49:00 [id number] [id number]+[id number]:49:00 [facility] CenterEMERGENCY PROVIDER REPORTREPORT#:[id number] REPORT STATUS: SignedDATE:08/03/23 TIME: 748 PATIENT: MISSY CANALES UNIT #: [id number]#: [id number] ROOM[facility]BED[facility]AGE: 68 SEX: M PCP PHYS: Kenneth Cummings AUTHOR: Tami Allison MD * ALL edits or amendments must be made on the electronic/computer document * HPI-Abd Pain M 40 and Over Free Text HPI NotesFree Text HPI [id number] male with recent cardiac stents presents stating that he needs his gallbladder taken out. Apparently during his workup recently they found that his gallbladder had an issue and they are here to have his gallbladder taken out. Patient denies any abdominal pain and the last time he vomited was 3 days ago. GeneralInitial Greet Date/Time 08/03/23717 PresentationChief Complaint NauseaSudden in Onset? Yes Free Text HPI NotesFree Text HPI Notes68 yo sent by PCP for abnormal gallbladder. Pt had vomiting 2 days ago. Pt had recent cardiac stent. Denies any chest pain. Risk-Abd Pain M 40 and Over)( Abdominal Aortic Aneurysm Risk factors reviewedCoronary Artery Disease Diabetes mellitus, Known CAD Review of Systems ROS StatementsAll systems rev neg except as marked. Basic Review of SystemsBasic ROS EYES: No redness, ENT: No sore throat Focused Review of SystemsGIReports: Nausea. Past Medical History - AdultStated Complaint SENT BY FOR GALLBLADDER SURGERYAllergiesCoded Allergies:No Known Allergies (08/03/23) Calculated Suicide Risk (nurs) No riskPast Medical History:Reports: Diabetes mellitus, Hypertension. Additional Surgical Historyrecent cardia cathSmoking status for patients 13 years old or older: Never Smoker Physical Exam Vital SignsVital SignsFirst Documented: Result Date Time Pulse Ox 97 08/02 721 B/P 111/58 08/02 721 B/P Mean 75 08/02 721 O2 Delivery Room air 08/02 721 Temp 37.7 08/02 721 Pulse 96 08/02 721 Resp 15 08/02 721 Last Documented: Result Date Time Pulse Ox 97 08/02 899 B/P 99/56 08/02 899 B/P Mean 74 08/02 899 Pulse 106 03/08 0900 Resp 16 08/02 804 O2 Delivery Room air 08/02 721 Temp 37.7 08/02 721 Review of Vital Signs Reviewed Basic Physical ExamBasic PE HEAD: Atraumatic/NC, EYES: PERRL, conj clear, ENT: Membranes moist, NECK: Supple, EXT: No gross abnormality, SKIN: No rashes, warm/dry, NEURO: alert oriented, NEURO: gross movement NL, PSYCH: NL thought content Focused PEGeneral/Const General/Const Awake, AlertEyes Text/Dict NotesMild scleral icterus seenResp/Chest Respiratory/Chest Atraumatic, Breath sounds NL, Breath sounds = bilatCardiovascular Cardiovascular Heart rate NL, Regular rhythmAbdomen/GI Abdomen/GI Atraumatic, Soft, Non-tenderMS Back Back Atraumatic, Inspection NL, Full range of motion Interpretation Diagnostics Lab Results InterpretationResultsLaboratory Tests 08/03/23 0750:[Embedded Image Not Available]Laboratory Tests: 08/02 08/02 0844 0750 Chemistry Sodium (134 - 147 mEq/L) 139 Potassium (3.4 - 5.0 mEq/L) 4.5 Chloride (100 - 108 mEq/L) 104 Carbon Dioxide (21 - 33 mEq/l) 20 L Anion Gap (0 - 20) 20 BUN (7 - 25 mg/dL) 20 Creatinine (0.6 - 1.3 mg/dL) 1.2 Glomerular Filtr Rate (70 - 80) 65.1 L Glucose (77 - 141 mg/dL) 237 H Calcium (8.0 - 10.5 mg/dL) 9.6 Total Bilirubin (0.0 - 1.0 mg/dL) 3.70 H Direct Bilirubin (0.1 - 0.3 MG/DL) 2.80 H Indirect Bilirubin (MG/DL) 0.90 AST (8 - 34 IUnit/L) 79 H ALT (10 - 49 IUnit/L) 105 H Total Alk Phosphatase (20 - 125 IUnit/L) 225 H Troponin I High Sens (0 - 54 ng/L) 330 *H Total Protein (6.4 - 8.2 g/dL) 7.9 Albumin (3.4 - 5.0 g/dL) 3.10 L LDL Cholesterol Measurd (0 - 100 mg/dL) 37.0 Lipase (13 - 57 U/L) 82 H Hematology WBC (4.5 - 11.0 x10 3/uL) 15.4 H RBC (4.00 - 5.60 x10 6/uL) 4.28 Hgb (12.5 - 16.9 g/dL) 13.0 Hct (37.5 - 50.7 %) 39.0 MCV (81.0 - 99.0 fL) 91.1 MCH (27.0 - 33.0 pg) 30.4 MCHC (33.0 - 37.0 g/dL) 33.3 RDW (11.5 - 14.5 %) 13.8 Plt Count (150 - 400 x10 3/uL) 121 L MPV (7.0 - 9.0 fL) 11.3 H Neut % (Auto) (56.0 - 77.0 %) 80.9 H Lymph % (Auto) (14.0 - 32.0 %) 8.5 L Evans % (Auto) (4.8 - 9.0 %) 10.1 H Eos % (Auto) (0.3 - 3.7 %) 0.0 L Baso % (Auto) (0.0 - 2.0 %) 0.1 Neut # (Auto) (2.0 - 7.6 x10 3/uL) 12.44 H Lymph # (Auto) (1.0 - 3.8 x10 3/uL) 1.30 Evans # (Auto) (0.1 - 0.8 x10 3/uL) 1.56 H Eos # (Auto) (0.0 - 0.2 x10 3/uL) 0.00 Baso # (Auto) (0.0 - 0.2 x10 3/uL) 0.02 Abs Immat Gran (auto) (0.00 - 0.03 x10 3/uL) 0.06 H Immature Gran % (0.0 - 2.0 %) 0.4 Nucleated RBC % (0 - 0 %) 0.0 Nucleated RBCs # (Man) (0.0 - 0.1 x10 3/uL) 0.00 Urines Urine Color (YEL/STRAW) SANDRA H Urine Appearance (CLEAR) CLEAR Urine pH (5.0 - 7.0) 5.0 Ur Specific [place] (1.005 - 1.030) 1.020 Urine Protein (NEGATIVE) 2+ H Urine Glucose (UA) (NEGATIVE) 3+ H Urine Ketones (NEGATIVE) 1+ H Urine Blood (NEGATIVE) 1+ H Urine Nitrite (NEGATIVE) NEGATIVE Urine Bilirubin (NEGATIVE) NEGATIVE Urine Urobilinogen (0.2 - 1.0 mg/dL) 4.0 H Ur Leukocyte Esterase (NEGATIVE) NEGATIVE Urine RBC (0 - 3 RBC/HPF) 11-20 Urine WBC (0 - 3 WBC/HPF) 0-3 Ur Squamous Epith Cells (NONE SEEN /HPF) 0-5 Ur Transition Epith Cell (NONE SEEN /HPF) TRACE Ur Renal Epithelial Cell (NONE SEEN /HPF) TRACE H Urine Bacteria (NONE SEEN /HPF) TRACE Hyaline Casts (NONE SEEN /LPF) 0-2 Recent Impressions:ULTRASOUND - US ABDOMEN [facility] 08/03 823 Report Impression - Status: SIGNED Entered: 08/03/202333 Impression:Limited exam secondary to bowel gasCholelithiasis is seen within a mildly distended gallbladder includingmaterial at the gallbladder neck concerning for impacted stone. Mildprominence of the gallbladder wall is seen. No pericholecystic freefluid recommend further evaluation with HIDA scan as indicatedThe appearance the liver is nonspecific but may reflect steatosisversus underlying parenchymal diseaseImpression By: [email or web address] - Tigist Brunner M.D. ECG #1 InterpretationECG Documented in MUSE YesDate 08/03/23Time 1023Rate 96Rhythm sinus rhythmConduction/[place] Right axis deviation Re-Evaluation MDM )( Re-Evaluation/Progress #1Time of Re-Eval 1013)( Re-Eval Status UnchangedRe-Eval Abdomen Soft, Non-tender ED CourseMedication(s) OrderedMedication(s) Ordered:Anti-Infective Agents Sig/Geoffrey Start time Last Medication Dose Route Stop Time Status Admin Piperacillin Sod/ 3.375 GM X1ED STA 08/02 1001 DC 08/02 Tazobactam Sod IV 08/02 1030 1146 Sodium Chloride 100 ML ConsultationConsultation Referral/Consult Name Karl Villagran MD Reactor Operator Called General surgery Call Returned Call returned Call Returned Time 1014 Call Returned Date 08/03/23 Free Text Consult Notesdiscussed ultrasound and labs Differential Diagnosis)( Differential Diagnosis Acute abdominal pain, Cholecystitis, Cholelithiasis, Gastroenteritis, GERD Patient Discharge Departure Vital Signs/ConditionVital SignsFirst Documented: Result Date Time Pulse Ox 97 08/02 721 B/P 111/58 08/02 721 B/P Mean 75 08/02 721 O2 Delivery Room air 08/02 721 Temp 37.7 08/02 721 Pulse 96 08/02 721 Resp 15 08/02 721 Last Documented: Result Date Time Pulse Ox 97 08/02 899 B/P 99/56 08/02 899 B/P Mean 74 08/02 899 Pulse 106 08/02 899 Resp 16 08/02 08 O2 Delivery Room air 08/02 721 Temp 37.7 08/02 721 All vital signs available at the time of this entry have been reviewed. Condition Stable Clinical ImpressionClinical ImpressionPrimary Impression: Acute cholangitisSecondary Impressions: NSTEMI (non-ST elevated myocardial infarction)Time of Impression 1014 Disposition DecisionHospitalize Hosp Physician Name Raphael Ly MD Hosp Physician Hospitalist Request Time 1021 Request Date 08/03/23 )( Accepts Hospitalization Yes )( Reason for Hospitalizationacute grant, elevated trop at 1219RPT #:[id number] OF REPORTEDEmergency department [id number]:49:00G.[id number] for patient [id number]:20:01 HCACL
[2023-11-08 11:17] LABS: Absolute Eosinophils 0.1 K/uL (0-0.5); Absolute Lymphocytes (CBC) 2.4 K/uL (0.7-4.9); Absolute Monocytes 1.5 K/uL (0.1-1.3); Absolute Neutrophil 12.5 K/uL (1.8-8.0); Basophils % 0.3 % (0-1.3); Eosinophils % 0.4 % (0-4.4); Hematocrit 31.1 % (39.6-49.0); Hemoglobin 10.2 g/dL (13.6-17.9); Lymphocytes % 14.3 % (15.3-44.8); MCH 28.3 pg (27.0-35.0); MCHC 32.6 g/dL (32.0-36.0); MCV 86.8 fL (80-100); MPV 6.6 fL (7.6-11.3); Monocytes % 9.2 % (3.3-12.3); Neutrophils % 75.8 % (41.7-73.7); Platelets 472 thou/uL (152-406); RBC Red Blood Cell Count 3.59 M/uL (4.33-5.43); Red Cell Distribution Width 16.1 % (12.1-15.2)
--- NOTE | 2023-11-08 11:45 | RAD REPORT ---
EXAM DESCRIPTION: Nikolai Single View11/08/2023 11:15 am CLINICAL HISTORY: Unresponsive COMPARISON: September 2023 FINDINGS: The lungs appear clear of acute infiltrate. The heart is mildly to moderately enlarged. Postsurgical changes involve the chest. Elevation right hemidiaphragm unchanged IMPRESSION: No acute abnormalities displayed
[2023-11-08 12:05] LABS: Anion Gap 11.1 mEq/L (5.0-15.0); Magnesium 1.8 mg/dL (1.6-2.4); Potassium 4.1 mEq/L (3.5-5.1)
[2023-11-08] MEDS ORDERED: NA CHLORIDE 0.9% 500 ML ONE (12:10)
[2023-11-08] MEDS ORDERED: MAGNESIUM SULFATE 1 gm IVPB 1 GM/100 ML BAG IV ONE (12:10)
[2023-11-08] MEDS ORDERED: D5W 1,000 ML IV ONE (14:00)
--- NOTE | 2023-11-08 14:01 | ER ---
Nurse's Notes [facility] Name: Donald Hull Age: 68 yrs Sex: Male : 1955 Arrival Date: 11/08/2023 Time: 10:47 Bed 4 Private MD: Diagnosis: Hypoglycemia, unspecified;Altered mental status, unspecified Presentation: 11/07 10:58 Chief complaint: Nurse from [facility] stated that patient came in for routine appointment, and became unresponsive. BGL was checked and found to be 24. reported this morning, bgl was 90. Coronavirus screen: Client denies travel out of the [place] in the last 14 days. Ebola Screen: Patient denies exposure to infectious person. Patient denies travel to an Ebola-affected area in the 21 days before illness onset. 10:58 Method Of Arrival: Stretcher ss 10:59 Initial Sepsis Screen: Does the patient meet any 2 criteria? HR > 90 bpm. Does the mb9 patient have a suspected source of infection? No. Patient's initial sepsis screen is negative. Risk Assessment: Do you want to hurt yourself or someone else? Patient reports no desire to harm self or others. Onset of symptoms was November 08, 2023. 10:59 Acuity: NASIMA 2 mb9 Historical: - PMHx: 10:59 Diabetes - NIDDM; gallbladder problems; Hypertension; stroke; ss - PSHx: 10:59 2000 quad. bypass; ss - Immunization history:: Adult Immunizations up to date. - Infectious Disease History:: Denies. - Family history:: not pertinent. - Hospitalizations: : No recent hospitalization is reported. - Social history:: Smoking status: Patient denies any tobacco usage or history of. Screenin:59 [facility] ED Fall Risk Assessment (Adult) History of falling in the last 3 months, mb9 including since admission No falls in past 3 months (0 pts) Confusion or Disorientation Yes (5 pts) Intoxicated or Sedated No (0 pts) Impaired Gait Yes (1 pt) Mobility Assist Device Used Yes (1 pt) Altered Elimination No (0 pt) Score/Fall Risk Level 3 or more points = High Risk Oriented to surroundings, Maintained a safe environment, Educated pt \T\ family on fall prevention, incl call for assistance when getting out of bed, Assessed \T\ reinforced patient's understanding of fall precautions. Abuse screen: Denies threats or abuse. Nutritional screening: No deficits noted. Tuberculosis screening: No symptoms or risk factors identified. Assessment: 10:45 General: Behavior is unresponsive. mb9 10:45 Pain: Unable to use pain scale. Patient is unresponsive. Neuro: Level of Consciousness mb9 is unresponsive, Oriented to none. Cardiovascular: Heart tones S1 S2 present Patient's skin is warm and dry. Respiratory: Airway is patent Respiratory effort is even, unlabored, Respiratory pattern is regular, symmetrical, Breath sounds are clear bilaterally. GI: Abdomen is flat, non-distended. : No signs and/or symptoms were reported regarding the genitourinary system. Derm: Skin is fragile, is thin, Skin is dry, Skin is normal, Wound noted buttocks. Musculoskeletal: Range of motion: intact in all extremities. 10:57 Neuro: Level of Consciousness is awake, obeys commands, Oriented to person. mb9 Respiratory: Airway is patent Respiratory effort is even, unlabored, Respiratory pattern is regular, symmetrical. 11:24 Reassessment: Notified Tita of lab recollect. ss 11:30 Neuro: Bravo Agitation-Sedation Scale (RASS): 0 - Alert and Calm Level of mb9 Consciousness is awake, alert, obeys commands, Oriented to person, place, situation. 12:45 Reassessment: Patient appears in no apparent distress at this time. No changes from mb9 previously documented assessment. Patient and/or family updated on plan of care and expected duration. Pain level reassessed. Patient is alert, oriented x 3, equal unlabored respirations, skin warm/dry/pink. 14:00 Reassessment: No changes from previously documented assessment. Patient and/or family mb9 updated on plan of care and expected duration. Pain level reassessed. Patient is alert, oriented x 3, equal unlabored respirations, skin warm/dry/pink. 14:00 Reassessment: Patient appears in no apparent distress at this time. No changes from mb9 previously documented assessment. Patient and/or family updated on plan of care and expected duration. Pain level reassessed. Patient is alert, oriented x 3, equal unlabored respirations, skin warm/dry/pink. Vital Signs: 10:57 BP 134 / 91; Pulse 108; Resp 14; Temp 97.2; Pulse Ox 100% on R/A; mb9 12:06 BP 154 / 72; Pulse 112; Resp 16; Pulse Ox 100% on R/A; mb9 13:12 BP 121 / 72; Pulse 105; Resp 16; Pulse Ox 100% on R/A; mb9 ED Course: 10:45 Inserted saline lock: 20 gauge in right antecubital area, using aseptic technique. mb9 10:53 Patient arrived in ED. rn 10:53 Nahid Antonio MD is Attending Physician. rn 10:56 Renetta Tobin RN is Primary Nurse. mb9 10:58 Initial lab(s) drawn, by me, sent to lab. Inserted saline lock: 20 gauge in left mb9 antecubital area, using aseptic technique. 10:58 New pt overide BG: LO, lab draw required. [email or web address] 10:59 Triage completed. mb9 10:59 EKG done, by ED staff, reviewed by Nahid Antonio MD. mb9 10:59 Bed in low position. Call light in reach. Side rails up X 1. Provided Education on: mb9 press call light if needing anything. Client placed on continuous cardiac and pulse oximetry monitoring. NIBP monitoring applied. digital imaging technician on. 10:59 Arm band placed on right wrist. ss 11:15 Warm blanket given. Pillow given. jg11 11:17 XRAY Chest (1 view) In Process Unspecified. EDMS 11:21 No provider procedures requiring assistance completed. mb9 11:43 Lab(s) recollected, by me, sent to lab. jg11 14:00 Kenneth Cummings MD is Hospitalizing Provider. rn 14:00 Repositioned patient. Cleaned of incontinence. mb9 14:11 Inserted saline lock: 22 gauge in left hand, using aseptic technique. mb9 15:02 Brief checked by pts and tech Vee. Pt dry at this time. mb9 15:08 Patient admitted, IV remains in place. mb9 Administered Medications: 10:49 Drug: D50W IVP 50 ml IVP once; (1 amp) Route: IVP; Site: left antecubital; ss 11:21 Follow up: Response: No adverse reaction mb9 10:49 Drug: Glucagon IVP 1 mg IVP once Route: IVP; Site: left antecubital; ss 11:21 Follow up: Response: No adverse reaction mb9 10:50 Drug: D10 in Water IVP 250 ml IVP once Route: IVP; Site: left antecubital; ss 11:21 Follow up: Response: No adverse reaction mb9 12:17 Drug: Magnesium Sulfate IVPB 1 grams IVPB once over 1 hrs Route: IVPB; Infused Over: 1 mb9 hrs; Site: right antecubital; 13:12 Follow up: Response: No adverse reaction; IV Status: Completed infusion mb9 12:18 Drug: NS 0.9% IV 500 ml IV at bolus once Route: IV; Rate: bolus; Site: right mb9 antecubital; 13:12 Follow up: Response: No adverse reaction; IV Status: Completed infusion mb9 14:11 Drug: D5-NS IV 1000 ml IV at 100 ml/hr continuous Route: IV; Rate: 100 ml/hr; Site: mb9 left hand; 14:24 Follow up: Response: No adverse reaction; IV Status: Infusion continued upon admission mb9 Medication: 10:59 VIS not applicable for this client. mb9 Outcome: 14:00 Decision to Hospitalize by Provider. rn 15:08 Admitted to Med/surg accompanied by tech, via stretcherjuan 15:08 Condition: stable 15:08 Instructed on the need for admit, 15:08 Patient left the ED. mb9 Signatures: Dispatcher [employer] EDMS Nahid Antonio MD MD rn Blanchard, Shelby, RN RN ss Breneman, Mary Beth, RN RN mb9 Gonzalez, Jordan jg11 Corrections: (The following items were deleted from the chart) 20:32 14:15 Repositioned patient. Cleaned of incontinence. mb9 mb9 20:33 10:45 Derm: Skin is pink, warm \T\ dry. 9 mb9 20:33 10:45 Musculoskeletal: Range of motion: intact in all extremities, mb9 mb9
--- NOTE | 2023-11-08 14:01 | EDPHYS ---
Physician Documentation [facility] Name: Donald Hull Age: 68 yrs Sex: Male : 1955 Arrival Date: 11/08/2023 Time: 10:47 Bed 4 Private MD: ED Physician Nahid Antonio HPI: 11/07 11:01 This 68 yrs old Black Male presents to ER via Stretcher with complaints of rn Unresponsive, Low Blood Sugar. 11:01 The patient or guardian reports hypoglycemia, that was potentially precipitated by no rn particular event. Onset: The symptoms/episode began/occurred just prior to arrival. Current symptoms: In the emergency department the patient's symptoms are unchanged from the initial presentation. The patient has not experienced similar symptoms in the past. The patient has been recently seen by a physician:. Patient was in wound care center, was noted to show altered mental status, glucose was checked and read low. Was too low to read. states that glucose when leaving the house was 96 and patient did not eat anything after that. Otherwise doing okay. Had recent admission for atrial fibrillation with RVR, did well with amiodarone and was not shocked during that hospitalization. Doing well since then. This is a normal checkup for wound care center.. Historical: - PMHx: 10:59 Diabetes - NIDDM; gallbladder problems; Hypertension; stroke; ss - PSHx: 10:59 2000 quad. bypass; ss - Immunization history:: Adult Immunizations up to date. - Infectious Disease History:: Denies. - Family history:: not pertinent. - Hospitalizations: : No recent hospitalization is reported. - Social history:: Smoking status: Patient denies any tobacco usage or history of. ROS: 11:01 Unable to obtain ROS due to altered mental status, obtunded state, rn Exam: 11:01 Constitutional: This is a well developed, well nourished patient who is somnolent and rn sonorous Head/Face: Normocephalic, atraumatic. Eyes: Pupils equal round and reactive to light, extra-ocular motions intact ENT: Dry mucous membranes Cardiovascular: Tachycardic, irregular. Respiratory: No increased work of breathing, no retractions or nasal flaring. Abdomen/GI: Soft, nontender MS/ Extremity: Pulses equal, no cyanosis. Neuro: Somnolent, sonorous respirations. Responded well after D50 and glucagon. Vital Signs: 10:57 BP 134 / 91; Pulse 108; Resp 14; Temp 97.2; Pulse Ox 100% on R/A; mb9 12:06 BP 154 / 72; Pulse 112; Resp 16; Pulse Ox 100% on R/A; mb9 13:12 BP 121 / 72; Pulse 105; Resp 16; Pulse Ox 100% on R/A; mb9 MDM: 10:53 Patient medically screened. rn 11:28 ED course: Pt markedly improved now. Glucose 211. rn 13:09 Differential diagnosis: hypoglycemic episode, Acute renal failure, adverse effect of internet sales manager. Data reviewed: vital signs, nurses notes, lab test result(s), EKG, radiologic studies, and as a result, I will discharge patient. Independent interpretation of the following test(s) in the Emergency Department EKG: See my EKG interpretation above X-Ray: My interpretation is Chest x-ray images negative for pneumonia or pulmonary edema per my interpretation. Care significantly affected by the following chronic conditions: Diabetes, Hypertension. Counseling: I had a detailed discussion with the patient and/or guardian regarding the historical points, exam findings, and any diagnostic results supporting the discharge/admit diagnosis, lab results, radiology results, the need for outpatient follow up, to return to the emergency department if symptoms worsen or persist or if there are any questions or concerns that arise at home. Response to treatment: the patient's symptoms have markedly improved after treatment, the patient's condition has returned to base line, the patient is now symptom free, and as a result, I will discharge patient. Special discussion: I discussed with the patient/guardian in detail that at this point there is no indication for admission to the hospital. It is understood, however, that if the symptoms persist or worsen the patient needs to return immediately for re-evaluation. Based on the history and exam findings, there is no indication for further emergent testing or inpatient evaluation. I discussed with the patient/guardian the need to see the primary care provider for further evaluation of the symptoms. ED course: Patient's spoke with Dr. Cummings just now, instructed to stop one of his diabetic medication and will follow-up with him as an outpatient. Patient back to baseline.. 13:59 ED course: Glucose continues to trend downward once again. states did not take his rn diabetic medication today. also states hypoglycemic episode is never happened. Will place in observation to Dr. Cummings for further care and medication reconciliation. Started on D5 infusion. 14:00 ED course: I personally spent 35 minutes engaged in work directly related to the rn individual patient's care. This does not include any time spent performing procedures. The patient has been deemed critically ill because of severe hypoglycemia, too low to read, was completely unresponsive on arrival with sonorous respirations. Required multiple glucose remedies including glucagon, D10 infusion, D50 administration as well as now D5 infusion to maintain his glucose.. 11/07 10:54 Order name: CBC with Diff; Complete Time: 11:43 rn 11/07 10:54 Order name: Basic Metabolic Panel; Complete Time: 12:08 rn 11/07 10:54 Order name: Magnesium; Complete Time: 12:08 rn 11/07 10:55 Order name: BNP; Complete Time: 12:08 rn 11/07 11:33 Order name: Glucose, Ancillary Testing; Complete Time: 11:43 EDHI 11/07 13:26 Order name: Glucose, Ancillary Testing; Complete Time: 13:27 EDHI 11/07 14:08 Order name: Glucose, Ancillary Testing; Complete Time: 14:15 EDHI 11/07 10:55 Order name: XRAY Chest (1 view); Complete Time: 11:47 rn 11/07 10:54 Order name: EKG; Complete Time: 10:55 rn 11/07 10:54 Order name: IV Start; Complete Time: 10:57 rn 11/07 10:54 Order name: EKG - Nurse/Tech; Complete Time: 10:57 rn 11/07 10:54 Order name: Cardiac monitoring; Complete Time: 10:57 rn 11/07 10:54 Order name: O2 Sat Monitoring; Complete Time: 10:57 rn 11/07 10:54 Order name: Glucose Level; Complete Time: 10:57 rn 11/07 11:24 Order name: Labs - recollect needed: green top only; Complete Time: 11:35 ss Administered Medications: 10:49 Drug: D50W IVP 50 ml IVP once; (1 amp) Route: IVP; Site: left antecubital; ss 11:21 Follow up: Response: No adverse reaction mb9 10:49 Drug: Glucagon IVP 1 mg IVP once Route: IVP; Site: left antecubital; ss 11:21 Follow up: Response: No adverse reaction mb9 10:50 Drug: D10 in Water IVP 250 ml IVP once Route: IVP; Site: left antecubital; ss 11:21 Follow up: Response: No adverse reaction mb9 12:17 Drug: Magnesium Sulfate IVPB 1 grams IVPB once over 1 hrs Route: IVPB; Infused Over: 1 mb9 hrs; Site: right antecubital; 13:12 Follow up: Response: No adverse reaction; IV Status: Completed infusion mb9 12:18 Drug: NS 0.9% IV 500 ml IV at bolus once Route: IV; Rate: bolus; Site: right mb9 antecubital; 13:12 Follow up: Response: No adverse reaction; IV Status: Completed infusion mb9 14:11 Drug: D5-NS IV 1000 ml IV at 100 ml/hr continuous Route: IV; Rate: 100 ml/hr; Site: mb9 left hand; 14:24 Follow up: Response: No adverse reaction; IV Status: Infusion continued upon admission mb9 Disposition Summary: 11/08/23 14:00 Hospitalization Ordered Notes: Hospitalization Status: Observation rn Provider: Kenneth Cummings rn [facility] rn Condition: Stable rn Problem: new rn Symptoms: have improved rn Bed/Room Type: Standard rn Room Assignment: 407(11/08/23 14:36) kb Diagnosis - Hypoglycemia, unspecified rn - Altered mental status, unspecified rn Forms: - Medication Reconciliation Form rn - SBAR form rn - Leadership Thank You Letter rn orthopedic time excluding procedures: 14:00 Critical care time: Bedside Care: 35 minutes. Total time: 35 minutes rn Signatures: Dispatcher [employer] Amanda Doty FNP-C FNP-Nahid Menjivar MD MD rn Blanchard, Shelby, RN RN Renetta Vargas RN RN mb9 Delaney Wright bc6 Corrections: (The following items were deleted from the chart) 14:23 14:00 rn bc6 14:36 14:23 [phone] kb
[2023-11-08] MEDS ORDERED: PNEUMOCOCCAL VACCINE 0.5 ML IMVAC ONE (18:00)
[2023-11-08] MEDS ORDERED: ONDANSETRON 4 MG/2 ML VIAL IV PRN (20:12)
[2023-11-08] MEDS: D5 0.9 NS 1,000 ML IV SCH (21:46)
[2023-11-08] MEDS: COSYNTROPIN 0.25 MG VIAL IV ONE (22:20)
[2023-11-08] MEDS ORDERED: HOME MED 1 EA UNK (Brimonidine Tartrate [Alphagan P] 10 ML Drops) EACH EYE SCH (22:30)
--- NOTE | 2023-11-08 22:30 | P.HP ---
Certification for Inpatient Patient admitted to: Observation Practitioner: I am a practitioner with admitting privileges, knowledge of patient current condition, hospital course, and medical plan of care. Services: Services provided to patient in accordance with Admission requirements found in Title 42 Section 412.3 of the Code of Federal Regulations Patient History Date of Service: 11/08/23 Reason for admission: hypoglycemia History of Present Illness: Donald is a diabetic who has lost a lot of weight since a major stroke during cardiac cath. HE has contractures all over. After cath and stroke he was in [facility] system for 6 wks and developed large bedsores in sacrum and both heels. HE is on Lantus and since weight loss he now has hypoglycemia from it. I asked to stop Lantus and Novolog. Explained to her. He may go home in am. I also advised hospice if he does not get better as with cachexia and weight loss his ulcers may never heal. Allergies No Known Allergies Allergy (Verified 10/10/23 14:28) Home medications list reviewed: Yes Home Medications: Allopurinol 300 mg PO DAILY 10/11/23 Apixaban [Eliquis] 5 mg PO BID 10/11/23 Atorvastatin Calcium [Lipitor] 40 mg PO BEDTIME 10/11/23 Brimonidine Tartrate [Alphagan P] 1 drop EACH EYE Q8H 10/11/23 Clopidogrel Bisulfate [Plavix*] 75 mg PO DAILY 10/11/23 Dapagliflozin/Metformin HCl [Xigduo Xr 5 mg-500 mg Tablet] 1 tab PO DAILY 10/11/23 Dorzolamide/Timolol/Pf [Dorzolamide-Timolol 2%-0.5%] 1 drop EACH EYE BID 10/11/23 Finasteride [Proscar*] 5 mg PO DAILY 10/11/23 Latanoprost Ophth [Xalatan 0.005%*] 1 drop EACH EYE BEDTIME 10/11/23 Metoprolol Tartrate [Lopressor] 50 mg PO BID 10/11/23 Tamsulosin [Flomax*] 0.4 mg PO DAILY 10/11/23 Famotidine [Pepcid] 20 mg PO BID 11/08/23 - Past Medical/Surgical History Has patient received pneumonia vaccine in the past: No Diabetic: Yes -: Hypertension -: Type 2 diabetes -: 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 moist/pink, EOMI, Sclerae nonicteric Neck: Supple, 2+ carotid pulse no bruit, No LAD, Without JVD or thyroid abnormality Respiratory: Clear to auscultation bilaterally, Normal air movement Cardiovascular: Regular rate/rhythm, Normal S1 S2 Gastrointestinal: Normal bowel sounds, No tenderness Musculoskeletal: Other (contractures all over. ) Integumentary: No rashes, Pressure ulcer (large ulcers are managed by Dr. Garnett.) Neurological: Normal gait, Normal speech, Normal strength at 5/5 x4 extr, Normal tone, Normal affect Lymphatics: No axilla or inguinal lymphadenopathy - Studies Laboratory Data (last 24 hrs) 11/08/23 11/08/23 11:40 10:58 WBC 16.50 H Hgb 10.2 L Hct 31.1 L Plt Count 472 H Sodium 129 L Potassium 4.1 BUN 27 H Creatinine 0.92 Glucose 188 H Magnesium 1.8 Assessment and Plan - Problems (Diagnosis) (1) Hypoglycemia Current Visit: No Status: Acute Plan: mainly from Lantus I asked to stop Lantus and Novolog I will fu if he needs small dose of meds. Prognosis is poor as above. I advise DNR status. Consult director social. - Advance Directives Does patient have a Living Will: No Does patient have a Durable POA for Healthcare: Yes
[2023-11-09] MEDS: COSYNTROPIN 0.25 MG VIAL IV ONE (08:20)
[2023-11-09 08:45] LABS: Anion Gap 10.9 mEq/L (5.0-15.0); Potassium 3.9 mEq/L (3.5-5.1)
[2023-11-09] MEDS: COLLAGENASE 30 GM OINTMENT TOP SCH (09:00)
[2023-11-09] MEDS ORDERED: TIMOLOL EACH EYE SCH (09:00)
[2023-11-09] MEDS ORDERED: HOME MED 1 EA UNK (Famotidine [Pepcid*] 20 MG Tab) PO SCH (09:00)
[2023-11-09] MEDS ORDERED: TAMSULOSIN 0.4 MG PO SCH (09:00)
[2023-11-09] MEDS: METOPROLOL TAR 50 MG TAB PO SCH (09:00)
[2023-11-09] MEDS ORDERED: DORZOLAMIDE EACH EYE SCH (09:00)
[2023-11-09] MEDS ORDERED: CLOPIDOGREL BISULFATE 75 MG PO SCH (09:00)
[2023-11-09] MEDS ORDERED: DROPERETTE EACH EYE SCH (09:00)
[2023-11-09] MEDS ORDERED: FINASTERIDE 5 MG PO SCH (09:00)
[2023-11-09] MEDS ORDERED: ALLOPURINOL 300 MG PO SCH (09:00)
[2023-11-09] MEDS ORDERED: HOME MED 1 EA UNK (Apixaban [Eliquis] 5 MG Tablet) PO SCH (09:00)
[2023-11-09 10:22] LABS: Absolute Basophils 0.1 K/uL (0-0.5); Absolute Lymphocytes (CBC) 1.9 K/uL (0.7-4.9); Absolute Monocytes 1.4 K/uL (0.1-1.3); Basophils % 0.4 % (0-1.3); Eosinophils % 0.3 % (0-4.4); Hematocrit 31.6 % (39.6-49.0); Hemoglobin 10.2 g/dL (13.6-17.9); MCH 27.8 pg (27.0-35.0); MCHC 32.2 g/dL (32.0-36.0); MCV 86.2 fL (80-100); MPV 6.3 fL (7.6-11.3); Monocytes % 10.6 % (3.3-12.3); Neutrophils % 74.7 % (41.7-73.7); Platelets 448 thou/uL (152-406); RBC Red Blood Cell Count 3.66 M/uL (4.33-5.43); Red Cell Distribution Width 16.4 % (12.1-15.2)
[2023-11-09 10:42] LABS: Albumin 1.5 g/dL (3.4-5.0); Albumin/Globulin Ratio 0.3 (1.1-1.8); Anion Gap 10.7 mEq/L (5.0-15.0); Bilirubin Total 0.7 mg/dL (0.2-1.0); Globulin 4.9 g/dL (2.3-3.5); Magnesium 2.1 mg/dL (1.6-2.4); Potassium 3.7 mEq/L (3.5-5.1); Protein, Total 6.4 g/dL (6.4-8.2)
[2023-11-09] MEDS: ENSURE COMPACT 118 ML LIQUID PO SCH (16:30)
[2023-11-09 17:21] VITALS: BMI 26.4
[2023-11-09] MEDS: MEDIHONEY 44 ML TOPICAL TUBE TOP SCH (18:04)
[2023-11-09] MEDS ORDERED: ATORVASTATIN CALCIUM 40 MG PO SCH (21:00)
[2023-11-09] MEDS ORDERED: LATANOPROST EACH EYE SCH (21:00)
[2023-11-10 07:34] LABS: Absolute Lymphocytes (CBC) 2.6 K/uL (0.7-4.9); Absolute Monocytes 1.5 K/uL (0.1-1.3); Absolute Neutrophil 8.3 K/uL (1.8-8.0); Basophils % 0.2 % (0-1.3); Eosinophils % 0.2 % (0-4.4); Hematocrit 27.6 % (39.6-49.0); Hemoglobin 9.3 g/dL (13.6-17.9); Lymphocytes % 20.7 % (15.3-44.8); MCHC 33.6 g/dL (32.0-36.0); MCV 86.4 fL (80-100); MPV 6.5 fL (7.6-11.3); Monocytes % 12.3 % (3.3-12.3); Neutrophils % 66.6 % (41.7-73.7); Nucleated Red Blood Cells % 0.1 % (0-0); Platelets 413 thou/uL (152-406); RBC Red Blood Cell Count 3.19 M/uL (4.33-5.43); Red Cell Distribution Width 15.9 % (12.1-15.2)
[2023-11-10 07:44] LABS: Anion Gap 7.9 mEq/L (5.0-15.0); Potassium 3.9 mEq/L (3.5-5.1)
[2023-11-10 09:23] VITALS: O2SAT 97
--- NOTE | 2023-11-10 09:34 | P.PN ---
Subjective Date of Service: 11/10/23 Chief Complaint: hypoglycemia Admitted with severe protein calorie malnutrition, sacral ulcers, presents with hypoglycemia Review of Systems Per HPI Physical Examination - Vital Signs Temperature: 98.1 F Blood Pressure: 130/61 Pulse: 92 Respirations: 19 Pulse Ox (%): 97 - Physical Exam General: Mild distress, Confused, Other (Cachectic) HEENT: PERRLA Neck: Supple Respiratory: Clear to auscultation bilaterally, Normal air movement Cardiovascular: Normal pulses, Regular rate/rhythm Gastrointestinal: Hypoactive Musculoskeletal: Other (Contractures,) Integumentary: Other (Pressure ulcers) Neurological: Abnormal gait, Abnormal strength - Studies Laboratory Data (last 24 hrs) 11/09/23 11/09/23 10:14 10:14 WBC 13.40 H Hgb 10.2 L Hct 31.6 L Plt Count 448 H Sodium 131 L Potassium 3.7 BUN 21 H Creatinine 0.71 Glucose 56 L Magnesium 2.1 Total Bilirubin 0.7 AST 30 ALT 20 Alkaline Phosphatase 102 Assessment And Plan - Plan - Problems (Diagnosis) Hypoglycemia mainly from Lantus I asked to stop Lantus and Novolog I will fu if he needs small dose of meds. Prognosis is poor as above. I advise DNR status. Consult social services technician. Plan to transition to Sacral ulcer Leukocytosis likely secondary to ulcers Wound care As needed analgesic Turn to avoid worsening pressure ulcer, supportive care Severe protein calorie malnutrition Supportive care, Ensure IV fluid Code DNR DVT SCDs Diet NPO SS discuss hospice options - Code Status/Comfort Care Comfort Measures: Palliative Care Critical Care: No Time Spent Managing PTS Care (In Minutes): 35
[2023-11-10 18:56] VITALS: BP 142/65; TEMP 98.1
--- NOTE | 2023-11-12 15:08 | EKG ---
Test Date: 2023-11-08 Test Time: 11:03:35 Store Planner: NEGRITO MEASUREMENT RESULTS: Intervals: Rate: 109 VT: 70 QRSD: 88 QT: 348 QTc: 468 [place]: P: -59 VT: 70 QRS: 114 T: -5 INTERPRETIVE STATEMENTS: Sinus rhythm with Frequent PVCs Septal infarct, age undetermined ST & T wave abnormality, consider inferolateral ischemia Abnormal ECG Compared to ECG 11/01/2023 11:04:36 Myocardial infarct finding now present ST (T wave) deviation now present Possible ischemia now present Electronically Signed On 11-12-23 14:56:21 CDT by Bryce Hennessy
== END 2023-11-10 18:20 | disposition home health service (06) | DRG 638 ==
LOC: ER 10:47 → ERHOLD 14:02 → 4TH 14:55 → OBSVTOIN 11-09 12:48
PROVIDERS: ADMIT Internal Medicine; ATTEND Hospitalist
DX: E11.649 Type 2 diabetes mellitus with hypoglycemia without coma (principal); I69.351 Hemiplegia and hemiparesis following cerebral infarction affecting right dominant side; I69.352 Hemiplegia and hemiparesis following cerebral infarction affecting left dominant side; R64 Cachexia; I48.91 Unspecified atrial fibrillation; I10 Essential (primary) hypertension; L89.629 Pressure ulcer of left heel, unspecified stage; L89.619 Pressure ulcer of right heel, unspecified stage; L89.159 Pressure ulcer of sacral region, unspecified stage; Z95.1 Presence of aortocoronary bypass graft; Z95.5 Presence of coronary angioplasty implant and graft; Z68.26 Body mass index [BMI] 26.0-26.9, adult; Z79.01 Long term (current) use of anticoagulants; Z79.02 Long term (current) use of antithrombotics/antiplatelets; Z87.891 Personal history of nicotine dependence; Z79.899 Other long term (current) drug therapy
CPT/HCPCS: 11043; 36415; 71045; 80048; 80053; 82024; 82533; 82947; 83036; 83735; 83880; 85025; 93005; 99215; 99285; G0378; J0834; J1610; J2405; J3475; J3590; J7040; J7042